=== PATIENT | male | born 1955 | race Caucasian/White ===

== ENCOUNTER → 2017-01-14 | Outpatient (CLI) | payer MEDICAID ==
[~2017-01-14] MED LIST: ACETAMINOPHEN &1 TA1 PO; ALBUTEROL2 PUFFS/17 IN; ALFUZOSIN HYDRO10 MG PO; ASPIRIN 325MG325 MG PO; ASPIRIN EC81 MG PO; ASPIRIN325 M1 PO; CLONAZEPAM 1MG T1 MG PO; CLONAZEPAM0.5 M1 PO; CYCLOBENZAPRINE10 MG PO; EXFORGE 10 MG-11 TAB PO; FLEXERIL10 M1 PO; FLEXERIL10 MG PO; FUROSEMIDE40 MG PO; GABAPENTIN300 M1 PO; HYDROCHLOROTH12.5 M1 PO; HYDROCODONE/ACE1 TA5 PO; LASIX40 MG PO; LEVOTHROID0.05 MG PO; LEVOTHYROXIN0.075 M3 PO; LODINE200 MG PO; LORTAB 500 MG-11 TAB PO; LOSARTAN POTASS1 TAB; LOSARTAN POTASS1 TAB PO; MAG-OX 400400 MG PO; MAGNESIUM CITRA1 BOT PO; METFORMIN 500M500 M1 PO; METFORMIN 500M500 MG PO; METHOCARBAMOL750 MG PO; MIRALAX PO255 GM/BOT PO; MOBIC15 MG PO; NEXIUM40 MG PO; NYSTATIN SUSPEN60 ML PO; OMEPRAZOLE20 MG PO; OMEPRAZOLE40 MG PO; PHENERGAN25 M3 PO; PREDNISONE 20MG20 MG PO; PRILOSEC OTC20 MG PO; PROVENTIL0.09 MG/A1 IH; RANITIDINE 150150 MG PO; SIMVASTATIN40 MG PO; STOOL SOFTENER240 MG PO; SYNTHROID 0.00.05 MG PO; TESSALON PERLE200 MG PO; ZETIA10 MG PO; ZITHROMAX Z PA250 MG PO; ZOCOR40 MG PO
[2017-01-14 16:38] LABS: AMPHETAMINES/METAMPHETAMINES NEGATIVE ng/mL (<1000)
[2017-01-24 18:35] LABS: Alprazolam Negative (Cutoff=100); Benzodiazepines Negative ng/mL (Cutoff=100); Clonazepam Negative (Cutoff=100); Flurazepam Negative (Cutoff=100); Lorazepam Negative (Cutoff=100); Midazolam Negative (Cutoff=100); Temazepam Negative (Cutoff=100); Triazolam Negative (Cutoff=100)
== END ==
LOC: LAB 15:44
PROVIDERS: Emergency Medicine
DX: Z79.899 Other long term (current) drug therapy (principal)
CPT/HCPCS: G0480

== ENCOUNTER → 2017-02-09 | Outpatient (CLI) | payer MEDICAID ==
[2017-02-09 21:06] LABS: AMPHETAMINES/METAMPHETAMINES NEGATIVE ng/mL (<1000)
[2017-02-21 14:36] LABS: Alprazolam Negative (Cutoff=100); Benzodiazepines Positive ng/mL (Cutoff=100); Clonazepam Positive (.); Clonazepam Confirm 210 ng/mL (Cutoff=100); Flurazepam Negative (Cutoff=100); Lorazepam Negative (Cutoff=100); Midazolam Negative (Cutoff=100); Temazepam Negative (Cutoff=100); Triazolam Negative (Cutoff=100)
== END ==
LOC: LAB 16:11
PROVIDERS: Emergency Medicine
DX: Z79.899 Other long term (current) drug therapy (principal)
CPT/HCPCS: G0480

== ENCOUNTER 2017-08-07 15:11 | Observation (INO) | payer MEDICAID ==
[~2017-08-07] VITALS: Ht 172.7 cm; Wt 103.0 kg
[~2017-08-07 15:11] MED LIST changes: +ASPIRIN 81MG TA81 MG PO; +PROTONIX40 MG/PACK PO; +SILDENAFIL CITR20 MG PO; +STOOL SOFTENER50 MG PO; +ZOFRAN4 MG PO
[2017-08-07 15:13] VITALS: BP 139/74
[2017-08-07 15:28] LABS: HEMOGLOBIN 12.9 g/dL (14.1-18.0); LYMPH # 2.1 K/mm3 (0.7-4.5); LYMPH % 42.1 % (10-50)
--- NOTE | 2017-08-07 15:35 | Emergency Room Report ---
History of Present Illness Time Seen by MD Wheat Presenting Problem in Triage Pt arrived:Walked Presenting Problem:LEFT SIDE CP THAT BEGAN LAST NIGHT, WITH LITTLE TO NO RELIEF FROM 3 DOSES OF NITRO SL SINCE LAST NIGHTS ONSET. 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 N Clinical Suspician of Infection? N Mental Status: 1 - Regular (Normal Baseline) Sepsis Risk:Low Sepsis Risk Have you (or family members/close friends) recently traveled outside the [place]? N If Yes, where/when: Have you had exposure to infectious disease within the past month? TB? Other? Specify: 62 years old white male with coronary artery disease status post RCA stenting on May 26, 2017. He has been having intermittent chest pain and LEFT upper chest radiating to the left neck, dull in character, occuring at rest and improved with nitroglycerin since yesterday. He rated the pain 8/10. He denies having soa or palpitation, NVD. Source patient, RN notes reviewed, family, old records, I reviewed his visit history and his cath report from May 17 Exam Limitations no limitations ALLERGIES Coded Allergies: Penicillins (08/07/17) Sulfa (Sulfonamide Antibiotics) (08/07/17) cephalexin (08/07/17) latex (08/07/17) Home Medications Active Scripts Polyethylene Glycol (Miralax Powder 255 Gm Bottle) 17 GM PO DAILY #1 POW Prov: 02/13/17 ONDANSETRON HCL (Zofran 4MG Tab) 4 MG PO Q6HP PRN NAUSEA AND VOMITING #30 TAB Prov: 04/09/17 Pantoprazole Sodium (Protonix) 40 MG PO DAILY #30 PKT Prov: 04/09/17 Reported Medications Metformin HCl (Metformin) 500 MG PO DAILY LOSARTAN/HYDROCHLOROTHIAZIDE (Losartan-Hctz 50-12.5 MG Tab) 1 TAB PO DAILY LEVOTHYROXINE SOD (Levothyroxine 0.075MG Tablet) 75 MCG PO DAILY Furosemide (Furosemide 40MG) 40 MG PO DAILY Methocarbamol (Methocarbamol 750MG) 750 MG PO BID Clonazepam (Clonazepam 1MG) 0.5 MG PO BID HYDROCODONE/ACETAMINOPHEN (Lortab 10-325 (generic) Tablet) 1 TAB PO QID ALFUZOSIN HCL (Alfuzosin HCl ER) 10 MG PO DAILY #30 Sildenafil Citrate (Sildenafil) 20 MG PO PRN PRN PROSTRATE ASPIRIN (Aspirin) 81 MG PO DAILY Omeprazole (Omeprazole 40MG) 40 MG PO DAILY Simvastatin (Simvastatin 40MG Tab) 40 MG PO QHS History Medical History General CAD? No Angina: Yes [place]: No Hypertension? Yes Hyperlipidemia? Yes CHF? No DVT? No PE? No COPD? Yes Asthma? No Anemia? No GERD? Yes Gastric ulcers? Yes GI Bleed? No Hernia? No Thyroid Problems? Yes Hypothyroidism? Yes CVA? Yes Seizures? No Diabetes? Yes Insulin Dependent: No Insulin Pump: No Home FSBS? Yes Renal Insuffiency? No End Stage Renal Disease? No UTI? Yes Stones? No BPH? No GB Disease: Yes Nephritic Syndrome? No Asplenia? No Hepatitis? No Sickle Cell Disease? No Arthritis? Yes Migraines? No Cataracts? No Glaucoma? No MRSA? Yes HIV? No TB? No Anxiety? No Depression? 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 Yes Additional hx: AAA, THORACIC AORTIC ANUERYSM Immunization Hx Ped.Immunizations UTD Yes DT/Tetanus 1-4 Years Ago Flu 2015-17FSN Pneumonia Never Had Surgical Hx Previous Surgery?Y R ARM TENDON PARTIAL BRAIN TUMOR REMOV 5 RECONSTRUCTIVE FACIAL APPY CYST REMOVED FROM NECK X2 HEART CATH-CLEAR Appendix BIOPSY ON BOTH EYES CANCER REMOVAL FROM LT EYE SURGERY Family History Family Hx Diabetes Yes CAD Yes Hypertension Yes Hyperlipidemia Yes Cancer Yes TB No Social History Smoking Hx Smoker: Never Smoker Tobacco: No Type N/A Are you/the child exposed to second-hand smoke: No Alcohol Alcohol: No Review of Systems All Other Systems Reviewed and Negative Constitutional no symptoms reported Eyes no symptoms reported ENT no symptoms reported. Respiratory no symptoms reported Cardiovascular see HPI, chest pain Gastrointestinal no symptoms reported Genitourinary no symptoms reported. Musculoskeletal no symptoms reported Skin no symptoms reported Psychiatric/Neurological no symptoms reported Physical Exam Vital Signs Vital Signs Date Time Temp Pulse Resp B/P Pulse O2 O2 Flow FiO2 Ox Delivery Rate 08/07 1558 72 18 106/60 92 08/07 1513 75 18 139/74 98 - WBC >12,000 or <4,000 or 10% bands? 2 or more SIRS Criteria Met? B/P:139/74 MAP:95 Creatinine >2.0? UA output<0.5ml/kg/hr for 2 hrs? Platelet count >100,000? Lactate >2.0mmol/1? INR >1.2 or PTT > than 60 sec? Evidence of Organ Dysfunction? Provider documented clinical suspician of infection? N Sepsis Criteria Count: 0 Sepsis Risk: Low Sepsis Risk General Appearance normal appearance, WD/WN Eye Exam - bilateral eye normal exam, bilateral eye PERRL, bilateral eye EOMI Ear, Nose, Throat hearing grossly normal, normal ENT inspection Neck normal inspection, non-tender, supple, full range of motion Respiratory Status Yes: trachea midline, chest symmetrical, non tender chest. No: respiratory distress. Lung Sounds bilateral: normal breath sounds, lungs clear. 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 No Results/Orders Laboratory Tests 08/07/17 1530: Opiates Screen POSITIVE H, Urine Methadone Screen NEGATIVE, Barbiturates NEGATIVE, Phencyclidine Screen NEGATIVE, Amphetamines Screen NEGATIVE, Benzodiazepines Screen NEGATIVE, Cocaine Screen NEGATIVE, Marijuana (THC) Screen NEGATIVE 08/07/17 1517: B-Natriuretic Peptide 22 08/07/17 1517: Sodium 142, Potassium 3.5, Chloride 103, Carbon Dioxide 32, BUN 16, Creatinine 1.2, Estimated Creat Clear 91, Estimated GFR (MDRD) 61, Glucose 125 H, Calcium 8.9, Total Bilirubin 0.4, AST 17, ALT 34, Alkaline Phosphatase 126 H, Creatine Kinase 205, CK-MB (CK-2) Rel Index 0.3, CK and CKMB Interp 0.6, Troponin I < 0.02, Total Protein 7.4, Albumin 4.0, Globulin 3.4 H, Albumin/Globulin Ratio 1.2, D-Dimer 502 *H, WBC 5.0, RBC 4.31 L, Hgb 12.9 L, Hct 37.3 L, MCV 86.4, RDW 13.4, Plt Count 199, MPV 7.3 L, Gran % 50.3, Gran # 2.5, Lymphocytes % 42.1 , Monocytes % 4.6, Eosinophils % 1.9, Basophils % 1.0, Lymphocytes # 2.1, Monocytes # 0.2, Eosinophils # 0.1, Basophils # 0.1, PUBS MCHC 34.7, MCH 30.0 Current Medication Orders Sig/Blayne Start time Last Medication Dose Route Stop Time Status Admin Nitroglycerin 0.5 IN ONCE ONE 08/07 1530 DC 08/07 TP 08/07 1531 1529 Sodium Chloride 10 ML PRN PRN 08/07 1530 AC IV 08/08 1519 Nitroglycerin 0 .STK-MED ONE 08/07 1523 DC .ROUTE Orders Procedure Date/time Status Decision to admit 08/07 1610 Active DRUG ABUSE SCREEN (10) 08/07 1540 Complete D-DIMER 08/07 1521 Complete BRAIN NATRIURETIC PEPTIDE 08/07 1521 Complete ELECTROCARDIOGRAM REQUEST 08/07 1519 Active CHEST(2 VIEWS-NOT PORTABLE) 08/07 1519 Active IV SALINE LOCK 08/07 1519 Active CBC WITH AUTO DIFF 08/07 1519 Complete CARDIAC ENZYMES 08/07 1519 Complete CHEM 12 PROFILE 08/07 1519 Complete 12 LEAD EKG-NAN (INITIAL) 08/07 UNK Active XRAY/CT/US XRAY/CT/US XRAY chest XR interpretation by reviewed by me Xray Results no infiltrates Departure Departure Time of Disposition 1534 Disposition Still a Patient Clinical Impression Primary Impression: Unstable angina Condition STABLE Referrals Ani DOSS,Beth Vincent Additional Instructions i dpsoke with the patient about his normal heart labs. I discussed with Dr Amin who agreed to admit. I notified Dr Cueva who will see him in the AM. The patient was admitted in a stable condition. Discharge Counseling Counseled pt/family regarding diagnosis, test results, R/B of controlled subst., medications/RX, home care, follow up needs ED Critical Care Critical Care No If Critical Care minutes are documented, the time involved in the performance of seperately reportable procedures was not counted toward critical care time documented. I directly delivered medical care to this critically ill and/or injured patient. Timely evaluation and treatment was necessary to address the significant organ system(s) dysfunction present in this patient. at 2289
[2017-08-07 15:56] LABS: BUN 16 mg/dL (7-18)
[2017-08-07 15:57] LABS: GFR (ESTIMATED) 61 ML/MIN (>60)
[2017-08-07 15:58] LABS: AMPHETAMINES/METAMPHETAMINES NEGATIVE ng/mL (<1000)
[2017-08-07 17:32] VITALS: BP 113/55
[2017-08-07 17:36] VITALS: BP 113/55
[2017-08-07] MEDS ORDERED: NITROGLYCERIN0.4 MG SL (17:56)
[2017-08-07 19:16] VITALS: BP 110/61
[2017-08-07 23:41] VITALS: BP 101/53
[2017-08-08 03:38] VITALS: BP 111/56
--- NOTE | 2017-08-08 06:52 | RADIOLOGY REPORT PS360 ---
CHEST(2 VIEWS-NOT PORTABLE) HISTORY: Chest pain CP ORDERING PHYSICIAN: Tha Law MD PATIENT AGE: 62 years COMPARISON: 04/09/2017 FINDINGS: The cardiomediastinal silhouette and pulmonary vascularity are within normal limits. The lungs are clear without infiltrates, suspicious nodules, or pleural effusions. No acute bony abnormalities. IMPRESSION: No change with no acute finding
--- NOTE | 2017-08-08 07:19 | PHARMACY CLINIC NOTE ---
Patient Demographics Patient Demographics Admission date: 08/07/17 Date: 08/08/17 Time: 0718 Allergies Coded Allergies: Penicillins (08/07/17) Sulfa (Sulfonamide Antibiotics) (08/07/17) cephalexin (08/07/17) latex (08/07/17) HEIGHT- FT: 5 IN: 8.00 K.995 VTE General Information Labs: Laboratory Tests 08/07 1517 Hematology Hgb (14.1 - 18.0 g/dL) 12.9 L Hct (42.0 - 52.0 %) 37.3 L Plt Count (142 - 424 K/mm3) 199 Disclaimer The following section includes nursing documentation that has been pulled in for pharmacy review. Patient's VTE score: 3 Patient's VTE Risk: LOW RISK Clinical trial participant? No VTE prophylaxis NQF [id number] VTE prophylaxis ordered? Yes Type of prophylaxis/treatment: SONG at 0776
[2017-08-08 08:08] VITALS: BP 114/67
--- NOTE | 2017-08-08 08:12 | CONSULT NOTE ---
Standard Demographics Patient Demo Date of Consultation: 08/08/17 Referring Provider: Jose Law MD Reason for Consultation: Chest pain PRIMARY DIAGNOSIS: UNSTABLE ANGINA, CAD Problem list Problem list: 1. Coronary disease A. History of abnormal stress test with inferior ischemia, 04/2017 B. Cardiac catheterization with subsequent drug-eluting stent placement to the RIGHT coronary artery, 04/2017. Aspirin and Effient therapy. 2. Previous brain surgery for benign brain mass, 1995, with resultant RIGHT facial droop A. Follows with neurology at . Recent MRI of the brain 07/2017, results pending 3. History of both ascending aortic aneurysm (4 cm) and abdominal aortic aneurysm (3.9 X 3.4 cm), with last CTA of the chest and abdomen and December of this year. 4. Diabetes mellitus 5. Hyperlipidemia 6. Remote tobacco use discontinued approximately 2002 History of present illness: History of present illness: 62-year-old white male with known coronary artery disease and recent coronary artery stenting in April of this year presented to the hospital emergency room for evaluation of chest pain. Patient relates 3 days of intermittent discomfort not associated with activity but resolved with rest or stretching out across the bed. He did take 3 nitroglycerin at home with minimal improvement in symptoms. He relates being more active recently working on remodeling his kitchen. He also relates eating more tomatoes recently even though he has a history of reflux symptoms. Most of his chest discomfort he describes as similar to his heartburn or reflux symptoms. The discomfort in his chest does not radiate and was not particular associated with shortness of breath. He denies any recent fever, chills, nausea, vomiting or diarrhea. He admits to being very anxious about the chest pain due to recent family member having a stroke. Patient was admitted for observation. Troponins have returned normal 3. Cardiology consulted for evaluation. During examination today the patient sat up to allow me to listen to his lungs he developed chest discomfort which upon returning to a supine position resolved. Past Medical History: General: Hypertension Yes CVA Yes Seizures No TB No COPD Yes Asthma No Diabetes Yes Insulin Dependent No Insulin Pump No Angina Yes MA No Hyperlipidemia Yes Urinary Yes Cancer Yes Rheumatic H.D. 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 Additional hx AAA, THORACIC AORTIC ANUERYSM, BLIND RIGHT EYE, BRAIN TUMOR Past Surgical HX: Previous Surgery?Y R ARM TENDON PARTIAL BRAIN TUMOR REMOV 5 RECONSTRUCTIVE FACIAL APPY CYST REMOVED FROM NECK X2 HEART CATH-CLEAR Appendix BIOPSY ON BOTH EYES CANCER REMOVAL FROM LT EYE SURGERY Allergies Coded Allergies: Penicillins (08/07/17) Sulfa (Sulfonamide Antibiotics) (08/07/17) cephalexin (08/07/17) latex (08/07/17) Home medications: Active Scripts Polyethylene Glycol (Miralax Powder 255 Gm Bottle) 17 GM PO DAILY #1 POW Prov: 02/13/17 ONDANSETRON HCL (Zofran 4MG Tab) 4 MG PO Q6HP PRN NAUSEA AND VOMITING #30 TAB Prov: 04/09/17 Pantoprazole Sodium (Protonix) 40 MG PO DAILY #30 PKT Prov: 04/09/17 Reported Medications Methocarbamol (Methocarbamol 750MG) 750 MG PO BIDP PRN MUSCLES NITROGLYCERIN (Nitrostat) 0.4 MG SL [id number] PRN CHEST PAIN Metformin HCl (Metformin) 500 MG PO DAILY LOSARTAN/HYDROCHLOROTHIAZIDE (Losartan-Hctz 50-12.5 MG Tab) 1 TAB PO DAILY LEVOTHYROXINE SOD (Levothyroxine 0.075MG Tablet) 75 MCG PO DAILY Furosemide (Furosemide 40MG) 40 MG PO DAILY Clonazepam (Clonazepam 1MG) 0.5 MG PO BID HYDROCODONE/ACETAMINOPHEN (Lortab 10-325 (generic) Tablet) 1 TAB PO QID ALFUZOSIN HCL (Alfuzosin HCl ER) 10 MG PO DAILY #30 Sildenafil Citrate (Sildenafil) 20 MG PO PRN PRN PROSTRATE ASPIRIN (Aspirin) 81 MG PO DAILY Omeprazole (Omeprazole 40MG) 40 MG PO DAILY Simvastatin (Simvastatin 40MG Tab) 40 MG PO QHS Current Medications: Current Medications Aspirin 81 MG DAILY PO Pantoprazole Sodium 40 MG BID PO Prasugrel 10 MG DAILY PO Nitroglycerin 0.5 IN Q6 TP (DC) Acetaminophen 500 MG Q6HP PRN PO Nicotine 21 MG DAILYP PRN TD Nitroglycerin 0.5 IN ONCE ONE TP (DC) Sodium Chloride 10 ML PRN PRN IV Nitroglycerin 0 .STK-MED ONE .ROUTE (DC) Immunization HX Ped.Immunizations UTD Yes DT/Tetanus 1-4 Years Flu 2015-FSN Pneumonia Refuses TB Test in last year No Family history Family HX Family Hx Insignificant No Diabetes Yes CAD Yes Hypertension Yes Hyperlipidemia Yes Cancer Yes TB No Social Hx: Smoking HX Tobacco No Type N/A Are you/the child exposed to second-hand smoke: No Alcohol Alcohol: No Hx of Drug Use Drug Use? No Review of systems: Constitutional No: no symptoms reported. Respiratory No: no symptoms reported. Cardiovascular see HPI, chest pain Gastrointestinal/Abdominal other Genitourinary No: no symptoms reported. Musculoskeletal neck pain. Neurological Yes: headache. Exam: Admission Vital Signs: 1ST Vital Signs Result Date Time Pulse Ox 98 08/07 1513 B/P 139/74 08/07 151 Pulse 75 08/07 1513 Resp 18 08/07 1513 O2 Delivery ROOM AIR 08/07 173 Temp 97.8 08/07 1732 Last Vital Signs: Vital Signs Result Date Time Pulse Ox 93 08/08 0338 B/P 111/56 08/08 338 O2 Delivery ROOM AIR 08/08 338 Temp 98.6 08/08 033 Pulse 62 08/08 033 Resp 08/08 0338 Exam General appearance: alert, awake, no acute distress Neck: no carotid bruit, no JVD Cardiovascular: regular rate & rhythm, no murmur Respiratory: clear to auscultation, good air movement ABD: soft, no tenderness Extremities: moves all, no peripheral edema Neuro: alert, intact, oriented Laboratory data: Laboratory Tests 08/08/17 0355: Troponin I < 0.02 08/07/17 2200: Troponin I < 0.02 08/07/17 1530: Opiates Screen POSITIVE H, Urine Methadone Screen NEGATIVE, Barbiturates NEGATIVE, Phencyclidine Screen NEGATIVE, Amphetamines Screen NEGATIVE, Benzodiazepines Screen NEGATIVE, Cocaine Screen NEGATIVE, Marijuana (THC) Screen NEGATIVE 08/07/17 1517: B-Natriuretic Peptide 22 08/07/17 1517: Sodium 142, Potassium 3.5, Chloride 103, Carbon Dioxide 32, BUN 16, Creatinine 1.2, Estimated Creat Clear 91, Estimated GFR (MDRD) 61, Glucose 125 H, Calcium 8.9, Total Bilirubin 0.4, AST 17, ALT 34, Alkaline Phosphatase 126 H, Creatine Kinase 205, CK-MB (CK-2) Rel Index 0.3, CK and CKMB Interp 0.6, Troponin I < 0.02, Total Protein 7.4, Albumin 4.0, Globulin 3.4 H, Albumin/Globulin Ratio 1.2, D-Dimer 502 *H, WBC 5.0, RBC 4.31 L, Hgb 12.9 L, Hct 37.3 L, MCV 86.4, RDW 13.4, Plt Count 199, MPV 7.3 L, Gran % 50.3, Gran # 2.5, Lymphocytes % 42.1 , Monocytes % 4.6, Eosinophils % 1.9, Basophils % 1.0, Lymphocytes # 2.1, Monocytes # 0.2, Eosinophils # 0.1, Basophils # 0.1, PUBS MCHC 34.7, MCH 30.0 Plan: Assessment: 1. Chest pain with atypical features. Patient has known coronary disease with recent coronary artery stenting after abnormal stress test picked up ischemia in the inferior wall. Troponins normal 3. Electrocardiogram shows sinus rhythm, LEFT axis deviation, minimal voltage criteria for left ventricular hypertrophy. No acute ST segment changes. 2. Coronary disease, continue dual antiplatelet therapy her recent coronary artery stenting. 3. Diabetes mellitus 4. Hyperlipidemia 5. Descending aortic aneurysm, 4.0 cm, last scan 12/2016 6. Abdominal aortic aneurysm, last scan 12/2016, 3.9 X 3.4 cm 7. History of hypertension 8. Previous brain surgery for benign tumor with resultant RIGHT facial droop Recommendations: 1. Lexiscan Myoview today. If no ischemia then could be discharged home later today if CTA of chest and abdomen also unchanged, on previous medications with increase in pantoprazole to twice a day for possible exacerbation of reflux disease. 2. Obtain CTA of the chest and abdomen to follow-up on his descending aortic aneurysm and abdominal aortic aneurysm as possible etiology for discomfort. at 0822
[2017-08-08 09:13] VITALS: BP 114/67
[2017-08-08 11:24] VITALS: BP 126/67
--- NOTE | 2017-08-08 11:58 | HISTORY AND PHYSICAL REPORT ---
Demographics: Admit date: 08/07/17 Chief complaint: chest pain PRIMARY DIAGNOSIS: UNSTABLE ANGINA, CAD Allergies: Coded Allergies: Penicillins (08/07/17) Sulfa (Sulfonamide Antibiotics) (08/07/17) cephalexin (08/07/17) latex (08/07/17) History of present illness: History of present illness: 62-year-old white male with known coronary artery disease and recent coronary artery stenting in April of this year presented to the hospital emergency room for evaluation of chest pain. Patient relates 3 days of intermittent discomfort not associated with activity but resolved with rest or stretching out across the bed. He did take 3 nitroglycerin at home with minimal improvement in symptoms. He relates being more active recently working on remodeling his kitchen. He also relates eating more tomatoes recently even though he has a history of reflux symptoms. Most of his chest discomfort he describes as similar to his heartburn or reflux symptoms. The discomfort in his chest does not radiate and was not particular associated with shortness of breath. He denies any recent fever, chills, nausea, vomiting or diarrhea. He admits to being very anxious about the chest pain due to recent family member having a stroke. Patient was admitted for observation. Troponins have returned normal 3. Cardiology consulted for evaluation. During examination today the patient sat up to allow me to listen to his lungs he developed chest discomfort which upon returning to a supine position resolved. as above - pt with known cad with inc episodes of chest pain with ntg use and was seen in the ed and admitted for card eval and serial enz Past medical history: Family HX Family Hx Insignificant Yes Immunization HX Ped.Immunizations UTD Yes DT/Tetanus 1-4 Years Ago Flu 2015-FSN Pneumonia Refuses TB Test in last year No General CAD? No Angina: Yes [place]: No Hypertension? Yes Hyperlipidemia? Yes CHF? No DVT? No PE? No COPD? Yes Asthma? No Anemia? No GERD? Yes Gastric ulcers? Yes GI Bleed? No Hernia? No Thyroid Problems? Yes Hypothyroidism? Yes CVA? Yes Seizures? No Diabetes? Yes Insulin Dependent: No Insulin Pump: No Home FSBS? Yes Renal Insuffiency? No UTI? Yes Stones? No BPH? No GB Disease: Yes Nephritic Syndrome? No Asplenia? No Hepatitis? No Sickle Cell Disease? No Arthritis? Yes Migraines? No Cataracts? No Glaucoma? No MRSA? Yes HIV? No TB? No Anxiety? No Depression? 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 Yes Additional hx: AAA, THORACIC AORTIC ANUERYSM, BLIND RIGHT EYE, BRAIN TUMOR Past Surgical HX Previous Surgery?Y R ARM TENDON PARTIAL BRAIN TUMOR REMOV 5 RECONSTRUCTIVE FACIAL APPY CYST REMOVED FROM NECK X2 HEART CATH-CLEAR Appendix BIOPSY ON BOTH EYES CANCER REMOVAL FROM LT EYE SURGERY Current home meds: Active Scripts Polyethylene Glycol (Miralax Powder 255 Gm Bottle) 17 GM PO DAILY #1 POW Prov: 02/13/17 ONDANSETRON HCL (Zofran 4MG Tab) 4 MG PO Q6HP PRN NAUSEA AND VOMITING #30 TAB Prov: 04/09/17 Pantoprazole Sodium (Protonix) 40 MG PO DAILY #30 PKT Prov: 04/09/17 Reported Medications Methocarbamol (Methocarbamol 750MG) 750 MG PO BIDP PRN MUSCLES NITROGLYCERIN (Nitrostat) 0.4 MG SL [id number] PRN CHEST PAIN Metformin HCl (Metformin) 500 MG PO DAILY LOSARTAN/HYDROCHLOROTHIAZIDE (Losartan-Hctz 50-12.5 MG Tab) 1 TAB PO DAILY LEVOTHYROXINE SOD (Levothyroxine 0.075MG Tablet) 75 MCG PO DAILY Furosemide (Furosemide 40MG) 40 MG PO DAILY Clonazepam (Clonazepam 1MG) 0.5 MG PO BID HYDROCODONE/ACETAMINOPHEN (Lortab 10-325 (generic) Tablet) 1 TAB PO QID ALFUZOSIN HCL (Alfuzosin HCl ER) 10 MG PO DAILY #30 Sildenafil Citrate (Sildenafil) 20 MG PO PRN PRN PROSTATE ASPIRIN (Aspirin) 81 MG PO DAILY Omeprazole (Omeprazole 40MG) 40 MG PO DAILY Simvastatin (Simvastatin 40MG Tab) 40 MG PO QHS Social Hx: Smoking HX Tobacco No Type N/A Are you/the child exposed to second-hand smoke: No Alcohol Alcohol: No Hx of Drug Use Drug Use? No Patien't marital status is Patient's support system is good Review of systems: Constitutional No: fever. Eyes No: drainage. Ears, Nose, Mouth, Throat No ear discharge, No epistaxis, No throat pain Respiratory No: cough, shortness of breath, wheezing. Cardiovascular see HPI, chest pain, No palpitations, No syncope Gastrointestinal/Abdominal see HPI, No abdominal pain, nausea, No poor appetite, No poor fluid intake, No vomiting Genitourinary No: dysuria, frequency, hesitancy, hematuria. Musculoskeletal No: back pain, joint pain, joint swelling, neck pain. Skin No: rash. Neurological No: headache, seizure disorder. Psychiatric No: anxious, depressed. Exam: Lab data for last 24 hours: Laboratory Tests 08/08/17 1015: Troponin I < 0.02 08/08/17 0355: Troponin I < 0.02 08/07/17 2200: Troponin I < 0.02 08/07/17 1530: Opiates Screen POSITIVE H, Urine Methadone Screen NEGATIVE, Barbiturates NEGATIVE, Phencyclidine Screen NEGATIVE, Amphetamines Screen NEGATIVE, Benzodiazepines Screen NEGATIVE, Cocaine Screen NEGATIVE, Marijuana (THC) Screen NEGATIVE 08/07/17 1517: B-Natriuretic Peptide 22 08/07/17 1517: Sodium 142, Potassium 3.5, Chloride 103, Carbon Dioxide 32, BUN 16, Creatinine 1.2, Estimated Creat Clear 91, Estimated GFR (MDRD) 61, Glucose 125 H, Calcium 8.9, Total Bilirubin 0.4, AST 17, ALT 34, Alkaline Phosphatase 126 H, Creatine Kinase 205, CK-MB (CK-2) Rel Index 0.3, CK and CKMB Interp 0.6, Troponin I < 0.02, Total Protein 7.4, Albumin 4.0, Globulin 3.4 H, Albumin/Globulin Ratio 1.2, D-Dimer 502 *H, WBC 5.0, RBC 4.31 L, Hgb 12.9 L, Hct 37.3 L, MCV 86.4, RDW 13.4, Plt Count 199, MPV 7.3 L, Gran % 50.3, Gran # 2.5, Lymphocytes % 42.1 , Monocytes % 4.6, Eosinophils % 1.9, Basophils % 1.0, Lymphocytes # 2.1, Monocytes # 0.2, Eosinophils # 0.1, Basophils # 0.1, PUBS MCHC 34.7, MCH 30.0 Admission vital signs: 1ST Vital Signs Result Date Time Pulse Ox 98 08/07 1513 B/P 139/74 08/07 1513 Pulse 75 08/07 1513 Resp 18 09/10 1513 O2 Delivery ROOM AIR 08/072 Temp 97.8 08/07 1732 Exam General appearance: alert Eyes: PERRLA ENT: dry mucous membranes Neck: no JVD Cardiovascular: regular rate & rhythm, murmur Respiratory: clear to auscultation ABD: soft Genitourinary: normal voiding & quantity Extremities: moves all Musculoskeletal: equal muscle strength Skin: dry 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 Abdominal aortic aneurysm 2. Chronic back pain 3. 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 Unstable angina Plan: will await card eval at 1158
[2017-08-08 15:31] VITALS: BP 134/86
--- NOTE | 2017-08-08 15:48 | RADIOLOGY REPORT PS360 ---
[facility] CLINICAL INDICATION: CAD, recent coronary stent, chest pain ORDERING PHYSICIAN: Tha Law MD PATIENT AGE: 62 years COMPARISON: 05/13/2017 DOSE: 10.37 mCi technetium Myoview intravenously at rest followed by 31.7 mCi technetium Myoviewthe intravenous ministration of 0.4 mg of Lexiscan. FINDINGS: Ejection fraction is calculated to be 55%. SPECT and polar map images reviewed. There is moderate amount of gastric activity noted. Fixed decreased activity is present involving the inferior wall extending into the apex. No reversible changes are evident. IMPRESSION: 1. Ejection fraction at lower limits of normal at 55% similar to the previous exam.. 2. Fixed defect involving the inferior wall extending into the apex consistent area of infarction. 3. No reversible defects apparent.
--- NOTE | 2017-08-08 16:18 | DISCHARGE SUMMARY STANDARD ---
Demographics Admit date: 08/07/17 Discharge date: 08/08/17 History of present illness History of present illness 62-year-old white male with known coronary artery disease and recent coronary artery stenting in April of this year presented to the hospital emergency room for evaluation of chest pain. Patient relates 3 days of intermittent discomfort not associated with activity but resolved with rest or stretching out across the bed. He did take 3 nitroglycerin at home with minimal improvement in symptoms. He relates being more active recently working on remodeling his kitchen. He also relates eating more tomatoes recently even though he has a history of reflux symptoms. Most of his chest discomfort he describes as similar to his heartburn or reflux symptoms. The discomfort in his chest does not radiate and was not particular associated with shortness of breath. He denies any recent fever, chills, nausea, vomiting or diarrhea. He admits to being very anxious about the chest pain due to recent family member having a stroke. Patient was admitted for observation. Troponins have returned normal 3. Cardiology consulted for evaluation. During examination today the patient sat up to allow me to listen to his lungs he developed chest discomfort which upon returning to a supine position resolved. as above - pt with known cad with inc episodes of chest pain with ntg use and was seen in the ed and admitted for card eval and serial enz Hospital Course Hospital Course: pt did well with dec pain and nl serial enz and was seen by card and stress test ok- GS: Ejection fraction is calculated to be 55%. SPECT and polar map images reviewed. There is moderate amount of gastric activity noted. Fixed decreased activity is present involving the inferior wall extending into the apex. No reversible changes are evident. IMPRESSION: 1. Ejection fraction at lower limits of normal at 55% similar to the previous exam.. 2. Fixed defect involving the inferior wall extending into the apex consistent area of infarction. 3. No reversible defects apparent. Discharge diagnoses Problem List 1. Abdominal aortic aneurysm 2. Chronic back pain 3. 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 Unstable angina Medications Medications: Discharge meds are as noted. Follow up Follow up in office in: 2 WEEKS with: Barrington Cueva MD Comment: will follow in office and with card at 1547
--- NOTE | 2017-08-08 16:56 | RADIOLOGY REPORT PS360 ---
CTA-ABD CLINICAL INDICATION: Abdominal aortic aneurysm CAD RECENT CORONARY STENT,CP,KNOWN ABD ANEURYSM ORDERING PHYSICIAN: Tha Law MD PATIENT AGE: 62 years TECHNIQUE: Axial images obtained following the bolus administration 100 mL of Isovue-370 performed in conjunction with chest CT angiogram COMPARISON: 04/09/2017 FINDINGS: There is a fusiform infrarenal abdominal aortic aneurysm beginning 4.6 cm below the level of the left renal artery measuring up to 3.9 cm AP and 3.4 cm transverse with a mild amount of mural thrombus inferiorly. The aneurysm ends at the level of the bifurcation measuring 2.6 x 2.2 cm at the bifurcation. Proximal common iliacs are slightly prominent measuring up to 1.6 cm on the right and left. The renal arteries and unremarkable appearance as does the superior mesenteric and iliac arteries. The KARYN is patent. Nonvascular findings: The liver, spleen, adrenal glands, and pancreas have an unremarkable appearance. No renal mass or hydronephrosis. Bilateral renal cortical cysts are present measuring up to 1.6 cm on the right. There has been prior appendectomy IMPRESSION: Overall no change in the 3.9 cm fusiform infrarenal abdominal aortic aneurysm with mild dilatation of the proximal common iliacs.
[2017-08-08 17:12] VITALS: BP 134/86
--- NOTE | 2017-08-08 18:22 | RADIOLOGY REPORT PS360 ---
CTA-CHEST HISTORY: Thoracic aortic aneurysm CAD RECENT CORONARY STENT,CP,KNOWN ABD ANEURYSM ORDERING PHYSICIAN: Tha Law MD PATIENT AGE: 62 years TECHNIQUE: Helical acquisition obtained following the bolus administration of 100 mL of Isovue 370 followed by a saline bolus. Axial, sagittal, and coronal reformatted images are generated and reviewed. COMPARISON: 01/03/2017 FINDINGS: The aortic root is upper normal at 4 cm. Coronary artery calcifications are present. There is no evidence of aortic dissection. Atheromatous changes involve the aortic arch. No obvious central pulmonary embolus evident. Study is tailored for the aorta with less than optimal opacification of the pulmonary arteries. There are centrilobular emphysematous changes with evidence of old granulomatous disease. No suspicious pulmonary nodules apparent. No consolidation or effusion. No mediastinal or hilar mass or adenopathy. There are mild degenerative changes in the thoracic spine. IMPRESSION: 1. No change mild prominence of the ascending aorta at 4 cm 2. Coronary artery calcification consistent with coronary artery disease. 3. Mild centrilobular emphysematous changes.
--- OUTSIDE RECORDS SUMMARY | 2017-09-05 03:00 | External Medical Summary Rpt ---
Author Author , LUIS EDUARDO HOFF Address Unknown Phone [email or web address] Care Team Providers Care Electric Golf Cart Repairer Name Role Phone ABLECARE, ABLECARE Unavailable Unavailable LEIVA, LEIVA Unavailable Unavailable LEIVA ART, LEIVA Unavailable Unavailable ART LEIVA ART, LEIVA Unavailable Unavailable ADI FERNANDO JR, Unavailable Unavailable ADI SWANSON JR, MD, PSC, Unavailable Unavailable BOYD DEAN MD, PSC LAVINIA KATE Unavailable Unavailable LAVINIA TOWNSEND, Unavailable Unavailable ,PSC, LAVINIA TOWNSEND MD,PSC WARE BRO WARE Unavailable Unavailable BRO WARE BRO, WARE Unavailable Unavailable BRO BEINEKE, BEINEKE Unavailable Unavailable BEINEKE DAREN, BEINEKE Unavailable Unavailable DAREN BESSON, BESSON Unavailable Unavailable BESSON CAMILLA, BESSON Unavailable Unavailable CAMILLA BESSON CAMILLA, BESSON Unavailable Unavailable CAMILLA BESSON, AYLEEN A, Unavailable Unavailable BESSON, AYLEEN A DELAROSA, DELAROSA Unavailable Unavailable DELAROSA ALL, DELAROSA ALL Unavailable Unavailable DANIEL, ALEXIS, Unavailable Unavailable DANIEL, ALEXIS [facility] Unavailable Unavailable SERVICE, [facility] Unavailable Unavailable SERVICE, [facility] Unavailable Unavailable SERVICE, [facility] BANDAR TEREZA, BANDAR Unavailable Unavailable TEREZA BUX ANJ, BUX ANJ Unavailable Unavailable C CELESTINO ADAME MD Unavailable Unavailable PSC, Marbella ADAME MD PSC [facility] Unavailable Unavailable CONSULTANTS O, [facility] LENA SHA, LENA Unavailable Unavailable SHA LENA, AWILDA, Unavailable Unavailable LENA, AWILDA [facility] Unavailable Unavailable [facility], [facility] Unavailable Unavailable [facility], Unavailable Unavailable [facility] COOK DONNIE, COOK DONNIE Unavailable Unavailable BEN III, RADHA L, Unavailable Unavailable BEN III, RADHA L ODALYS LB, ODALYS LB Unavailable Unavailable ODALYS LB, ODALYS LB Unavailable Unavailable ZULLY, ZULLY Unavailable Unavailable ZULLY BUBBA, Unavailable Unavailable ZULLY BUBBA ZULLY BUBBA, Unavailable Unavailable ZULLY BUBBA ZULLY, OLESYA, Unavailable Unavailable ZULLY, OLESYA [facility], Unavailable Unavailable [facility] [place] Un[facility]available [facility], [facility] DUFF LB, DUFF LB Unavailable Unavailable [facility] Unavailable [place]available [place], [facility] [place] [facility] Un[facility] [place] EDGE DONNIE, EDGE DONNIE Unavailable Unavailable EDGE DONNIE, EDGE DONNIE Unavailable Unavailable FALLUJI VENITA, FALLUJI Unavailable Unavailable VENITA FEEBACK, FEEBACK Unavailable Unavailable LAUREN SAVITA, Unavailable Unavailable LAUREN SAVITA FRYMAN EUG, FRYMAN Unavailable Unavailable EUG CHAGO, CHAGO Unavailable Unavailable CHAGO CHARLEY, CHAGO Unavailable Unavailable CHARLEY CHAGO CHARLEY, CHAGO Unavailable Unavailable CHARLEY BARAHONA MICHELLE, BARAHONA MICHELLE Unavailable Unavailable [facility] Unavailable Unavailable INC, [facility] Unavailable Unavailable [facility], [facility] Unavailable Un[facility] P, [facility] ELIAS, NETTIE, ELIAS, Unavailable Unavailable NETTIE MIDDLETON ALEM, MIDDLETON ALEM Unavailable Unavailable MIDDLETON ALEM, MIDDLETON ALEM Unavailable Unavailable MIDDLETON MICHAEL A, Unavailable Unavailable MIDDLETON, MICHAEL A [facility], Unavailable Unavailable [facility] WHITESIDE NISREEN, WHITESIDE NISREEN Unavailable Unavailable KATYA MITCHELL, KATYA Unavailable Unavailable MITCHELL JAMA NAN, JAMA Unavailable Unavailable NAN JAMA NAN, JAMA Unavailable Unavailable NAN [facility] Unavailable Unavailable MEDICAL G, [facility]available Unavailable DEPARTMENT, [facility] Un[facility], [facility] DALLAS CRI, [facility] Unavailable Unavailable ALBA [facility] E, Unavailable Unavailable [facility] Unavailable Un[facility], [facility] Un[facility] Un[facility] FREDY DEAN MD, FREDY Unavailable Unavailable JERMAINE DOSS MAJORS G, MAJORS G Unavailable Unavailable VITA HAM, VITA HAM Unavailable Unavailable VITA HAM, VITA HAM Unavailable Unavailable [facility] Unavailable Unavailable SERVICES, [facility] ROMERO JAM, Unavailable Unavailable ROMERO JAM ROMERO JAM, Unavailable Unavailable ROMERO JAM MCKEMIE JR AREN, Unavailable Unavailable MCKEMIE JR AREN MCKEMIE JR AREN, Unavailable Unavailable MCKEMIE JR AREN MCKEMIE JR, MCKAYLA Unavailable Unavailable F, NATHALY JR, MCKAYLA F MINEER EDELMIRA, MINEER Unavailable Unavailable EDELMIRA LUDY, CHAD P, Unavailable Unavailable LUDY, CHAD P MOHAMMADZADEH, Unavailable Unavailable MOHAMMADZADEH [facility]OHAMM[facility]ADEH HAM, Unavailable Unavailable MOHAMMADZADEH HAM [facility] Unavailable Unavailable PSC, [facility] PSC O'JENNIFER LISA, O'JENNIFER Unavailable Unavailable LISBETH GILMORE, Unavailable Unavailable LISBETH ZEE [facility]available [facility], [facility] Unavailable Unavailable LAB, [facility] THO, MONROE Unavailable Unavailable [facility]O [facility], Unavailable Unavailable [facility] CB, CB Unavailable Unavailable CB TOD, CB TOD Unavailable Unavailable JAIDEN CAMILLA, JAIDEN CAMILLA Unavailable Unavailable JAIDEN CAMILLA, JAIDEN CAMILLA Unavailable Unavailable TAMIR VENEGAS, Unavailable Unavailable TAMIR VENEGAS, Unavailable Unavailable MCCORMACK BERNARDO SADEK MOH, SADEK MOH Unavailable Unavailable SARAFF, AMADOR Y, Unavailable Unavailable SARAFF, AMADOR Y SCHEURICH, MARCOS, Unavailable Unavailable SCHEURICH, MARCOS SCIFRES ANG, SCIFRES Unavailable Unavailable ANG SCIFRES ANG, SCIFRES Unavailable Unavailable ANG SETTEMBRE, SETTEMBRE Unavailable Unavailable SHASHY JAROD, SHASHY Unavailable Unavailable JAROD CHAYO, CHAYO Unavailable Unavailable CHAYO MAT, Unavailable Unavailable CHAYO MAT SMALL, LISBETH T, SMALL, Unavailable Unavailable LISBETH T SOKAN BAB, SOKAN BAB Unavailable Unavailable SOKAN, MADISON O, Unavailable Unavailable SOKAN, MADISON O SOTINGEANU, Unavailable Unavailable SOTINGEANU SOTINGEANU DAREN, Unavailable Unavailable SOTINGEANU DAREN CHUY SALCIDO, CHUY Unavailable Unavailable LALO AG, Unavailable Unavailable LALO VERA POPEYE PHI, POPEYE PHI Unavailable Unavailable POPEYE LAKSHMI A, Unavailable Unavailable LAKSHMI NYE A MITCH MAT, MITCH MAT Unavailable Unavailable [facility], Unavailable Unavailable [facility] MORRISON W, MORRISON W Unavailable Unavailable MORRIOSN JR AREN, MORRISON Unavailable Unavailable JR AREN MORRISON, W, MORRISON, W Unavailable Unavailable WEHRMAN III AREN, Unavailable Unavailable WEHRMAN III AREN WEHRMAN III AREN, Unavailable Unavailable WEHRMAN III AREN WEHRMAN III, MCKAYLA, Unavailable Unavailable WEHRMAN III, MCKAYLA WEST DONNIE, WEST DONNIE Unavailable Unavailable WESTLISBETH, WEST, Unavailable Unavailable VENITA EPPERSON Unavailable Unavailable KRISTIAN TOWNSEND Unavailable Unavailable Brigida TOWNSEND, KRISTIAN, Unavailable Unavailable A C Purpose Continuity of Care Document - 12-04-2007 through 2016 Problems Code Diagnosis DOS Provider Status 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 [id number] SPONDYLOSIS 07-05-2017 [place] W/O KRISTIAN MYELOPATH/R ,PSC ADICULOPATH Y CERV RGN [id number] SPONDYLOSIS 07-05-2017 [place]IA W/Milton TOWNSEND MYELOPATH/R ,[facility] ADICULOPATH Y LUMB RGN Q55103 OUTSIDE CUTTER HAND 07-05-2017 LAV[place]IA CURRENT USE WHIT TOWNSEND OPIATE ,[facility] ANALGESIC Q68581 OTHER LONG 06-15-2017 [facility] TERM [facility] CURRENT INC DRUG THERAPY E119 TYPE 2 06-02-2017 [facility] DIABETES PHYSICIANS MELLITUS GROUP WITHOUT COMPLICATIO NS E785 HYPERLIPIDE 06-02-2017 [facility] LESTER PHYSICIANS UNSPECIFIED GROUP I119 HYPERTENSIV 06-02-2017 [facility] E HEART PHYSICIANS DISEASE GROUP WITHOUT HEART FAILURE 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 I712 THORACIC 06-02-2017 [facility] AORTIC PHYSICIANS ANEURYSM GROUP WITHOUT RUPTURE I714 ABDOMINAL 06-02-2017 [facility] AORTIC PHYSICIANS ANEURYSM GROUP WITHOUT RUPTURE R079 CHEST PAIN 06-02-2017 [facility] UNSPECIFIED PHYSICIANS GROUP R9439 ABNORMAL 05-26-2017 [facility] RESULT OTH PHYSICIANS CARDIOVASCU GROUP LR FUNCTION STUDY H75884 ENCOUNTER 05-26-2017 [facility] FOR PHYSICIANS PREPROCEDUR GROUP AL CARIOVASCUL AR EXAM I10 ESSENTIAL 05-13-2017 [facility] PRIMARY PHYSICIANS HYPERTENSIO GROUP N R9431 ABNORMAL 05-13-2017 [facility] ELECTROCARD PHYSICIANS IOGRAM GROUP S89970 ENCOUNTER 05-13-2017 [facility] FOR OTHER MEM [facility] PREPROCEDUR INC AL EXAMINATION R1011 RIGHT UPPER 05-03-2017 [facility] R935 ABN FIND DX 05-03-2017 [facility] IMAG OTH [facility] ABD REGIONS INC RETROPERITO NEUM D369 BENIGN 04-19-2017 [facility] NEOPLASM PHYSICIANS UNSPECIFIED GROUP SITE O42430 PERSONAL 04-19-2017 [facility] HISTORY OF PHYSICIANS COLONIC GROUP POLYPS K210 GASTRO-ESOP 04-09-2017 [facility] JENSEN PHYSICIANS, REFLUX PLLC DISEASE W/ ESOPHAGITIS K828 OTHER 04-09-2017 [facility] SPECIFIED PHYSICIANS, DISEASES OF PLLC GALLBLADDER K829 DISEASE OF 04-09-2017 [facility]ADDER [facility] UNSPECIFIED R109 UNSPECIFIED 04-09-2017 [facility] ABDOMINAL [facility]ICAL PAIN IMAGING ASS K81682 PERSONAL 04-09-2017 [facility] HISTORY OF [facility] P DEPENDENCE N411 CHRONIC 04-05-2017 [facility] PROSTATITIS [facility] P N529 MALE 04-05-2017 [facility] UNSPECIFIED K219 GASTRO-ESOP 04-02-2017 [facility] H REFLUX [facility] DISEASE INC WITHOUT ESOPHAGITIS M5116 INTERVERTEB 04-02-2017 [facility] GLORIA PHYSICIANS, D/O PLLC W/RADICULOP ATHY LUMB RGN R1031 RIGHT LOWER 04-02-2017 [facility] M5382 OTHER 03-23-2017 [place] SPECIFIED [facility] DORSOPATHIE C CENTE S CERVICAL REGION M5386 OTHER 03-23-2017 [place] SPECIFIED CHIROPRACTI DORSOPATHIE C CENTE S LUMBAR REGION P60024 OTHER 03-04-2017 JUANI LU MD,PSC MID-CERV REG UNS LEVEL K5900 CONSTIPATIO 02-13-2017 [facility] N MEDICAL UNSPECIFIED IMAGING ASS R112 NAUSEA WITH 02-13-2017 [facility] VOMITING MEDICAL UNSPECIFIED IMAGING ASS J449 CHRONIC 01-13-2017 [facility] PULMONARY [facility] P DISEASE UNS R0600 DYSPNEA 01-13-2017 [facility] UNSPECIFIED [facility]ICAL IMAGING ASS E039 HYPOTHYROID 11-11-2016 [facility] IS [facility] UNSPECIFIED INC N401 BENIGN 10-26-2016 [facility] PROSTATIC [facility] P LW URINARY TRACT SX R350 FREQUENCY 10-26-2016 [facility] P J65399 UNSPECIFIED 10-11-2016 [facility] ALEM BLEPHARITIS LEFT LOWER EYELID J9811 ATELECTASIS 09-01-2016 [facility] R1013 EPIGASTRIC 09-01-2016 [facility] PAIN [facility] P R7989 OTHER SPEC 09-01-2016 [facility] ABNORMAL MEDICAL FINDINGS IMAGING ASS BLOOD CHEMISTRY M791 MYALGIA 08-25-2016 [place] TOWNSEND MD,PSC M5090 CERVICAL 08-16-2016 [facility] DISC [facility] DISORDER INC UNS UNS CERVICAL REGION D92520 PAIN IN 08-10-2016 [facility] RIGHT MEDICAL SHOULDER IMAGING ASS M5032 OTH CERV 08-10-2016 [facility] DISC MEDICAL DEGENERATIO IMAGING ASS N MID-CERVICA L REGION M542 CERVICALGIA 08-10-2016 [facility] R51 HEADACHE 08-10-2016 [facility] V9585JH CONTUSION 08-10-2016 [facility] UNS PART PHYSICIANS, HEAD PLLC INITIAL ENCOUNTER M6636DQ UNSPECIFIED 08-10-2016 [facility] INJURY OF MEDICAL HEAD IMAGING ASS INITIAL ENCOUNTER Y684RGU STRAIN 08-10-2016 [facility] MUSCLE FASC PHYSICIANS, & TENDON PLLC NECK LEVL INIT ENC I684QDG UNSPECIFIED 08-10-2016 [facility] INJURY OF MEDICAL NECK IMAGING ASS INITIAL ENCOUNTER A83221O UNSPECIFIED 08-10-2016 [facility] SPRAIN RT PHYSICIANS, SHOULDER PLLC JOINT INITIAL ENC V0896KO UNS INJURY 08-10-2016 [facility] RT SHOULDER MEDICAL UPPER ARM IMAGING ASS INITIAL ENCNTR D126 BENIGN 07-29-2016 [facility], NEOPLASM OF LLC COLON UNSPECIFIED K635 POLYP OF 07-29-2016 [facility] COLON PHYSICIANS GROUP Z09 ENC F/U 07-29-2016 COMMUNITY EXAM AFTR ANESTH OF CMPL TX OTH THE BLUE THAN MALIG NEOPLSM Z1211 ENCOUNTER 07-29-2016 [facility] SCREENING PHYSICIANS MALIGNANT GROUP NEOPLASM OF COLON M4642 DISCITIS 05-14-2016 [facility] UNSPECIFIED PHYSICIANS CERVICAL GROUP REGION G8929 OTHER 04-23-2016 [facility] CHRONIC PHYSICIANS PAIN GROUP J40 BRONCHITIS 04-07-2016 [facility] NOT PHYSICIANS SPECIFIED GROUP ACUTE OR CHRONIC M5010 CERVICAL 03-29-2016 BOYD DEAN, DISC D/O , PSC W/RADICULOP ATHY UNS CERV RGN B351 TINEA 03-25-2016 PROGR[facility] UNGUIUM PODIATRY E1151 TYPE 2 DM 03-25-2016 PRO[facility] W/DIAB PODIATRY PERIPH ANGIOPATHY W/O GANGRENE M2570 OSTEOPHYTE 03-25-2016 [facility] UNSPECIFIED PODIATRY JOINT A72288 PAIN IN 03-25-2016 [facility] LEFT TOES PODIATRY J0110 ACUTE 03-24-2016 [facility] FRONTAL PHYSICIANS SINUSITIS GROUP UNSPECIFIED [id number] UNS OPEN 03-24-2016 [facility] WOUND UNS PHYSICIANS TOES GROUP W/DAMAGE NAIL INITIAL M5030 OT 02-23-2016 [facility] CERVICAL [facility] DISC INC DEGENERATIO N UNS CERV REGION M5412 RADICULOPAT 02-23-2016 BOYD DEAN HY CERVICAL , [facility] REGION R200 ANESTHESIA 01-23-2016 [facility] OF SKIN MEDICAL IMAGING ASS Z8603 PERSONAL 01-23-2016 [facility] HISTORY MEDICAL NEOPLASM OF IMAGING ASS UNCERTAIN BEHAVIOR 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 Y16696 UNSPECIFIED 01-14-2016 [place] MEDICAL PTOSIS OF SERV RIGHT FOUNDATION EYELID H9191 UNSPECIFIED 01-14-2016 [place] [facility] HEARING SERV LOSS RIGHT FOUNDATION EAR Y08481 FACIAL 01-14-2016 [place] MEDICAL WEAKNESS SERV [place]OUNDATION R9089 OT 01-14-2016 [place] MEDICAL ABNORMAL SERV FIND ON DX FOUNDATION IMAGING CNTRL NERV SYS Y22842 PERSONAL 01-14-2016 [place] MED[facility] HISTORY 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 UNSPECIFIED A86504 CONTACT 12-26-2015 SCIF[facility] ANG BLEPHAROCON JUNCTIVITIS RIGHT EYE M5136 OT 12-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 BURT MD, PSC RAL DISC DEGEN LUMBAR REGION R110 NAUSEA 12-03-2015 [facility] R140 ABDOMINAL 11-26-2015 [facility] DISTENSION MEDICAL GASEOUS IMAGING ASS B370 CANDIDAL 11-20-2015 [facility] STOMATITIS PHYSICIANS, [facility] E1121 TYPE 2 11-20-2015 [facility] DIABETES [facility] MELLITUS INC W/DIABETIC NEPHROPATHY J329 CHRONIC 11-13-2015 [facility] SINUSITIS PHYSICIANS UNSPECIFIED GROUP H5203 HYPERMETROP 09-08-2015 [facility] ALEM IA BILATERAL M797 FIBROMYALGI 08-29-2015 [facility] A [facility] INC 72664 DEGEN 07-28-2015 BOYD DEAN, LUMBAR/LUMB , PSC OSACRAL INTERVERTEB RAL DISC 7244 THORACIC/GINO 07-28-2015 GABBY BURT MD, PSC NEURITIS/RA DICULITIS UNSPEC 7291 UNSPECIFIED 07-28-2015 BOYD DEAN, MYALGIA , PSC AND MYOSITIS V7109 OBSERVATION 07-23-2015 COMPREHEND OF OTHER INC SUSPECTED MENTAL CONDITION 38868 UNSPECIFIED 06-20-2015 [facility] ARTHROPATHY INC OTHER SPECIFIED SITES 6011 CHRONIC 06-03-2015 [facility] PROSTATITIS [facility] P 46793 DEGEN 05-06-2015 [facility] THORACIC/TH MEDICAL ORACOLUMBAR IMAGING ASS INTERVERTEB RAL DISC 7231 CERVICALGIA 05-06-2015 [facility] 7245 UNSPECIFIED 05-06-2015 [facility] BACKACHE MEDICAL IM[facility]ING ASS 7840 HEADACHE 05-06-2015 [facility] 8470 NECK SPRAIN 05-06-2015 [facility] AND STRAIN PHYSICIANS, PLLC 01177 HEAD 05-06-2015 [facility] INJURY, PHYSICIANS, UNSPECIFIED PLLC 47584 HYPERTROPHY 04-29-2015 [facility] W/UR OBST & HOSPITAL P OTH LUTS 47933 URINARY 04-29-2015 [facility] P 7224 DEGENERATIO 04-28-2015 MADISI BUX N OF CERVICAL INTERVERTEB RAL DISC 7234 BRACHIAL 04-28-2015 FREDY DEAN NEURITIS [place] RADICULITIS NOS 74016 DIAB W/O 03-04-2015 [facility] COMP TYPE LAR II/UNS NOT CONSULTANTS STATED O UNCNTRL 2724 OTHER AND 03-04-2015 [facility] UNSPECIFIED [facility] INC HYPERLIPIDE LESTER 4019 UNSPECIFIED 03-04-2015 [facility] ESSENTIAL [facility] HYPERTENSIO INC N 59586 UNSPEC HTN 03-04-2015 [facility] HEART LAR DISEASE CONSULTANTS WITHOUT O HEART FAIL 05040 COR 03-04-2015 [facility] ATHEROSLERO [facility] UNSPEC INC TYPE VESSEL [place] T 88490 OTHER 02-26-2015 [facility] DYSPNEA AND MEDICAL [place]AG[place] [address] CHEST PAIN 02-26-2015 [place] MEDICAL UNSPECIFIED SERV FOUNDATION 57180 OTHER CHEST 02-26-2015 [facility] PAIN PHYSICIANS GROUP 2449 UNSPECIFIED 01-09-2015 [facility] PHYSICIANS HYPOTHYROID GROUP ISM 93212 DISPLCMT 01-09-2015 [facility] LUMBAR PHYSICIANS INTERVERT GROUP DISC W/O MYELOPATHY 82697 OTHER 01-09-2015 [facility] MALAISE AND PHYSICIANS FATIGUE GROUP 13694 DIAB W/O 12-28-2014 [facility] MENTION [facility] COMP TYPE INC II/UNS TYPE UNCNTRL 2768 HYPOPOTASSE 12-28-2014 [facility] P 3319 UNSPECIFIED 12-28-2014 [facility] CEREBRAL MEDICAL DEGENERATIO IMAGING ASS N 7820 DISTURBANCE 12-28-2014 [facility] P 00789 PRECORDIAL 12-28-2014 [facility] AMBULANCE SERVICE 82832 VOMITING 12-28-2014 [facility] AMBULANCE SERVICE V140 PERSONAL 12-28-2014 [facility] HISTORY OF [facility] ALLERGY TO [facility] P PENICILLIN 4414 ABDOMINAL 11-14-2014 [facility] WITHOUT MEDICAL G MENTION OF RUPTURE 490 BRONCHITIS 10-30-2014 [facility] NOT PHYSICIANS SPECIFIED GROUP ACUTE OR CHRONIC 54843 UNSPECIFIED 05-07-2014 [facility] ART ORCHITIS AND EPIDIDYMITI S 55714 OTHER 04-16-2014 [facility] CHRONIC [facility] PAIN INC 496 CHRONIC 04-16-2014 [facility] AIRWAY [facility] OBSTRUCTION INC NEC 7242 LUMBAGO 04-16-2014 JAIDEN CAMILLA V1582 PERS HX 04-16-2014 [facility] TOBACCO USE [facility] PRESENTING INC HAZARDS [facility] V5869 LONG-TERM 04-16-2014 [facility] (CURRENT) [facility] USE OF INC OTHER MEDICATIONS 10607 OTHER 04-02-2014 [facility] CONVULSIONS [facility] INC 8472 LUMBAR 04-02-2014 WEHRMAN III SPRAIN AND AREN STRAIN E9179 OTHER 04-02-2014 WEHRMAN III STRIKING AREN AGAINST W/WO SUBSEQUENT FALL 4139 OTHER AND 03-29-2014 [facility] UNSPECIFIED [facility] ANGINA INC PECTORIS 49173 ING ANDREW 03-29-2014 [facility] W/O MENTION BUBBA OBST/GANGRE N UNILAT/UNSP EC 5738 OTHER 03-29-2014 [facility] SPECIFIED BUBBA DISORDERS OF LIVER 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 77359 ABDOMINAL 03-29-2014 WEHRMAN III PAIN OTHER AREN SPECIFIED SITE 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 28731 ACUTE 03-03-2014 [facility] GASTRITIS [facility] WITHOUT INC MENTION OF HEMORRHAGE 07599 UNS 03-03-2014 WARE BRO GASTRITIS&G ASTRODUODIT IS W/O MENTION HEMORR 7213 LUMBOSACRAL 01-17-2014 V[facility] TREVINO SPONDYLOSIS WITHOUT MYELOPATHY 7831 ABNORMAL 10-13-2013 [facility] WEIGHT GAIN [facility] INC 71031 DIARRHEA 10-13-2013 [facility] INC V0481 NEED 08-23-2013 NATHALY RAI PROPHYLACTI AREN C VACCINATION &INOCULATIO N FLU 3510 BELLS PALSY 07-24-2013 [facility] 7218 OTHER 07-24-2013 [facility] DISORDERS OF SPINE 38227 OTH 07-18-2013 [facility] W/O INTRACT INC W/O STATUS MIGRAINOSUS 18390 OTHER 06-18-2013 [facility] CONDITIONS BUBBA OF BRAIN 7220 DISPLCMT 06-18-2013 [facility] CERV BUB[facility] INTERVERT DISC WITHOUT MYELOPATHY 7249 OTHER 06-18-2013 [facility] UNSPECIFIED BUBBA BACK DISORDER V571 OTHER 05-28-2013 [facility] PHYSICAL [facility] THERAPY INC 55747 UNSPECIFIED 03-06-2013 [facility] ARTHROPATHY [facility] P SHOULDER REGION 10208 PAIN IN 03-06-2013 [facility]GENCY SHOULDER SERVICES REGION 7295 PAIN IN 03-06-2013 [facility] SOFT BUBBA TISSUES OF LIMB 75977 OTHER 03-06-2013 [facility] NONSPECIFIC BUBBA ABNORMAL FINDING OF LUNG FIELD 81622 MICROSCOPIC 01-26-2013 NATHALY RAI HEMATURIA AREN 8460 SPRAIN AND 01-26-2013 NATHALY RAI STRAIN OF AREN LUMBOSACRAL 69421 OTHER 01-25-2013 [facility] DISEASES OF BUBBA SPLEEN 441.4 441.4 ABDOM 01-25-2013 Beryl AORTIC [facility] ANEURYSM Hospital 4411 THORACIC 01-25-2013 [facility] ANEURYSM, BUBBA RUPTURED 558.9 558.9 01-25-2013 [facility] IT NEC 5589 OTH&UNSPEC 01-25-2013 [facility] P GASTROENTER ITIS&COLITI S 47022 HYPERTROPHY 01-25-2013 [facility] PROSTATE BUBBA W/O UR OBST & OTH LUTS 6019 UNSPECIFIED 12-30-2012 [facility] PROSTATITIS INC 7823 EDEMA 12-30-2012 [facility] INC 54568 UNSPECIFIED 12-29-2012 NATHALY RAI AREN CONSTIPATIO N 15773 ABDOMINAL 12-15-2012 [facility] PA[facility], [facility] P 4400 ATHEROSCLER 12-14-2012 [facility] OSIS OF BUBBA AORTA 12314 ABDOMINAL 12-14-2012 [facility] CHARLEY PAIN, UNSPECIFIED SITE 81878 HEMATURIA 08-29-2012 [facility] 10526 OTHER 08-21-2012 [facility] SPECIF[facility] DISORDERS [facility] OF [place]DER 03036 ABDOMINAL 08-08-2012 [facility] PAIN RIGHT BUBBA LOWER QUADRANT 4419 AORTIC 08-01-2012 [facility] ANTONY ANEUR UNSPEC SITE WITHOUT MENTION RUPTURE 7881 DYSURIA 07-24-2012 [facility] ANTONY 87376 PRIMARY 06-14-2012 NICK LACRIMAL JAM ATROPHY 43863 VITREOUS 06-14-2012 NICK DEGENERATIO JAM N 45562 UNSPECIFIED 04-04-2012 KANE FERRARA BLEPHAROCON JUNCTIVITIS 52653 ESOPHAGEAL 04-04-2012 [facility] REFLUX 5533 DIAPHRAGMAT 04-04-2012 [facility] ANDREW W/O MENTION OBSTRUCTION /GANGREN 80981 OTHER LATE 03-25-2012 [facility] EFFECTS OF CEREBROVASC ULAR DISEASE V711 OBSERVATION 03-24-2012 [facility] S[facility]PECTED [facility] ASS MALIGNANT NEOPLASM 436 ACUTE BUT 02-28-2012 NATHALY RAI ILL-DEFINED AREN CEREBROVASC ULAR DISEASE 96337 UNS 12-22-2011 [facility] MALIGNANT NEOPLASM EYELID INCLUDING CANTHUS 06342 BASAL CELL 12-22-2011 [place] CARCINOMA ANESTHESIA OF EYELID ASSOC L INCLUDING CANTHUS 11537 OTHER 12-22-2011 [facility] CHRONIC DERMATITIS DUE TO SOLAR RADIATION 00404 OTHER 11-28-2011 [facility] SPECIFIED BUBBA ACQUIRED DEFORMITY OF HEAD 4660 ACUTE 10-11-2011 NATHALY RAI BRONCHITIS AREN 7862 COUGH 10-11-2011 [facility] 2392 NEOPLASMS 10-01-2011 [facility] UNSPEC NATURE BONE SOFT TISSUE&SKIN 7226 DEGENERATIO 09-21-2011 [facility] [place] INTER[facility] INTERNAL RAL DISC MED SITE UNSPEC 72833 BLEPHARITIS 09-07-2011 [facility] , UNSPECIFIED 3670 HYPERMETROP 08-20-2011 [facility] [place] VISION 46101 ABDOMINAL 07-27-2011 NEW PAIN RIGHT [facility] PSC QUADRANT 7210 CERVICAL 07-22-2011 NEW SPONDYLOSIS [place] WITHOUT [facility]INIC TEN [facility] MYELOPATHY 2250 BENIGN 06-15-2011 [facility] NEOPLASM OF [facility] PSC 80095 SHORTNESS 06-03-2011 [facility] 1101 DERMATOPHYT 05-18-2011 [facility] OSIS OF [place] NAIL INTERNAL MED 7822 LOCALIZED 05-18-2011 [facility] SUPERFICIAL [place] SWELLING INTERNAL MASS OR MED LUMP 7906 OTHER 04-13-2011 [facility] ABNORMAL [place] BLOOD INTERNAL CHEMISTRY MED 13027 DYSPHAGIA 02-25-2011 [facility]NSPECIFIED [facility] 7871 HEARTBURN 02-16-2011 C CELESTINO [facility] [id number] ABDOMINAL 02-16-2011 [facility] 1919 MALIGNANT 02-03-2011 [facility] NEOPLASM OF [place] BRAIN INTERNAL UNSPECIFIED MED SITE 78444 DYSPHAGIA 02-03-2011 [facility] 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 1104 DERMATOPHYT 12-14-2010 [facility] OSIS [facility] [place] FOOT INTERNAL MED 9953 ALLERGY 12-12-2010 [facility] UNSPECIFIED [place] NOT INTERNAL ELSEWHERE MED CLASSIFIED 7821 RASH AND 12-09-2010 [facility] OTHER [place] NONSPECIFIC INTERNAL SKIN MED ERUPTION 7079 CHRONIC 12-07-2010 [facility] ULCER [facility] [place] UNSPECIFIED INTERNAL SITE MEDI 3688 OTHER 09-21-2010 [facility] SPECIFIED [facility] VISUAL IMAGING ASS DISTURBANCE S 96508 MUSCLE 09-21-2010 [facility] 92486 FACIAL 09-21-2010 [facility] 43221 NAUSEA WITH 07-27-2010 [facility] 62739 OTHER AND 07-25-2010 [facility] UNSPECIFIED [place] INTERNAL CONJUNCTIVI MED TIS 5409 ACUTE 05-05-2010 [facility] WITHOUT HOSPITAL MENTION PROF SERV PERITONITIS 541 APPENDICITI 05-05-2010 [facility]IED [facility] 7804 DIZZINESS 05-05-2010 [facility] [id number] OTHER 05-05-2010 [facility] OTHER PROF SERV 65097 PAINFUL 11-05-2009 [facility] RESPIRATION [place] INTERNAL MED 42194 OTHER SPEC 09-03-2009 [place] [facility] GASTRIT[facility] SERV WITHOUT [facility]OUNDATIO MENTION HEMORRHAGE 79130 DUODENITIS 09-03-2009 [facility] MENTION OF INC HEMORRHAGE 92067 NAUSEA 09-03-2009 [facility] & ALONE CYTOLOGY LAB 35936 UNSPECIFIED 05-07-2009 [facility] TIS PROF SERV 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 UNSPECIFIED MED 79472 OTHER 01-13-2009 [facility] ANXIETY [place] INTERNAL MED 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 76218 ONYCHIA AND 12-16-2008 [facility] PARONYCHIA [place] OF TOE INTERNAL MED 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 CHRONIC 11-13-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[facility] PAIN [place] SYNDROME INTERNAL MED 4659 ACUTE URIS 10-30-2008 [facility] OF [facility] UNSPECIFIED INTERNAL SITE MED 89399 ABDOMINAL 07-17-2008 [place] PAIN, LEFT CLINIC UPPER LABORATORY QUADRANT 67979 DISORDER OF 06-25-2008 [facility] CART[facility] UNSPECIFIED 3674 PRESBYOPIA 04-11-2008 MICHA[facility] MIDDLE[facility] 7802 SYNCOPE AND 03-29-2008 [facility] 11668 TRANSIENT 03-28-2008 [facility] SERVICE AWARENESS 4011 ESSENTIAL 03-14-2008 NEW HYPERTENSIO [place] N, BENIGN CLINIC PSC 14235 ANNIE HTN 02-27-2008 NEW HEART [place] DISEASE CLINIC 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 2409 GOITER, 02-20-2008 [facility] 7931 NONSPEC 02-20-2008 [facility] FIND RAD MEDICAL OTH EXAM [facility] 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 FIELD 3569 UNSPEC 02-16-2008 [facility], HEREDIT&IDI [facility] OPATHIC PERIPHERAL NEUROPATHY 7812 ABNORMALITY 01-23-2008 [facility], OF GAIT [facility] 4619 ACUTE 12-14-2007 [facility] UNSPECIFIED Allergies, Adverse Reactions, Alerts Type Drug Allergy Adverse Reaction to Substance Substance Reaction Severity Penicillin I-RASH Intermediate SULFA (sulfonamide) SICK TO STOMACH Unknown Clinical Alert Notifications Alert Asthma: 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 AR 5 MA MG CY TA OF BL CY ET NT HI AN A IN C PA 65 08 08 27 30 00 EA Ac NT 86 -2 -[address] ti OP 20 4- 9- 00 00 SI ve RA 56 20 20 49 DE ZO 09 17 17 91 LE 0 23 PH AR SO MA D CY DR OF 40 CY NT MG HI AN TA A B IN C FU 00 07 06 30 30 00 EA Ac RO 37 -2 -[address] ti SE 80 4- 9- 00 00 SI ve AL 21 20 20 49 DE DE 61 17 17 91 0 24 PH 40 AR MA MG CY TA OF BL CY ET NT HI AN A IN C ME 23 07 06 30 30 00 EA Ac TF 15 -2 -[address] ti OR 50 4- 9- 00 00 SI ve AL 10 20 20 49 DE N 21 17 17 91 HC 0 25 PH L AR 50 MA 0 CY MG OF TA CY BL NT ET HI AN A IN C LE 00 07 06 30 30 00 EA Ac VO 37 -1 -[address] ti TH 81 7- 2- 00 00 SI ve YR 80 20 20 49 DE OX 57 17 17 82 IN 7 47 PH E AR 75 MA CY MC G OF TA CY BL NT ET HI AN A IN C AT 60 08 09 30 30 00 EA Ac OR 50 -1 -[address] ti VA 52 1- 5- [address] 58 20 20 49 DE AT 00 17 17 10 IN 9 75 PH AR 40 MA CY MG OF TA CY BL NT ET HI AN A IN C HY 00 08 09 [address] 40 -1 -[address] ti OC 60 0- 5- 00 00 SI ve OD 12 20 20 0 49 DE ON 50 17 17 74 -A 5 49 PH CE AR TA MA AL CY NO PH OF N CY 10 NT -3 HI 25 AN A IN C LO 16 07 06 30 30 00 EA Ac SA 71 -1 -[address] ti RT 40 4- 5- 00 00 SI ve AN 22 20 20 49 DE -H [address] 1 86 PH Z AR 10 MA 0- CY 12 .5 OF CY MG NT HI TA AN B A IN C EF 00 08 09 30 30 00 EA Ac FI 00 -0 -[address] ti EN 25 2- 1- 00 00 SI ve T 12 20 20 49 DE 10 33 17 17 64 0 36 PH MG AR MA TA CY BL ET OF CY NT HI AN A IN C AL 60 07 09 30 30 00 EA Ac FU 50 -3 -[address] ti ZO 52 1- 1- 00 00 SI ve SI 85 20 20 47 DE N 00 17 17 18 HC 1 04 PH L AR ER MA CY 10 OF MG CY NT TA HI BL AN ET A IN C CL 00 07 08 60 30 00 EA Ac ON 22 -2 -[address] ti AZ 83 6- 5- 00 00 SI ve EP 00 20 20 49 DE AM 35 17 17 57 0 34 PH 0. AR 5 MA MG CY TA OF BL CY ET NT HI AN A IN C PA 65 07 08 30 30 00 EA Ac NT 86 -2 -[address] ti OP 20 4- 5- 00 00 SI ve RA 56 20 20 49 DE ZO 09 17 17 54 LE 0 02 PH AR SO MA D CY DR OF 40 CY NT MG HI AN TA A B IN C ME 23 07 08 30 30 00 EA Ac TF 15 -2 -[address] ti OR 50 4- 5- 00 00 SI ve AL 10 20 20 49 DE N 21 17 17 54 HC 0 03 PH L AR 50 MA 0 CY MG OF TA CY BL NT ET HI AN A IN C FU 00 07 08 30 30 00 EA Ac RO 37 -2 -[address] ti SE 80 4- 5- 00 00 SI ve AL 21 20 20 49 DE DE 61 17 17 54 0 05 PH 40 AR MA MG CY TA OF BL CY ET NT HI AN A IN C LE 00 07 08 30 30 00 EA Ac VO 37 -1 -[address] ti TH 81 7- 8- 00 00 SI ve YR 80 20 20 49 DE OX 51 17 17 46 IN 0 96 PH E AR 75 MA CY MC G OF TA CY BL NT ET HI AN A IN C VE 00 07 08 18 18 00 EA Ac NT 17 -1 -[address] ti OL 30 9- 8- 00 00 SI ve IN 68 20 20 49 DE 22 17 17 49 HF 0 99 PH A AR 90 MA CY MC G OF IN CY NG NT LE HI R AN A IN C HY 07 08 11 [address] 40 -1 -[address] ti OC 60 2- 8- 00 00 SI ve OD 12 20 20 0 49 DE ON 50 17 17 40 -A 5 66 PH CE AR TA MA AL CY NO PH OF N CY 10 NT -3 HI 25 AN A IN C LO 16 07 08 30 30 00 EA Ac SA 71 -1 -[address] ti RT 40 2- 1- 00 00 SI ve AN 22 20 20 49 DE -H [address] 1 71 PH Z AR 10 MA 0- CY 12 .5 OF CY MG NT HI TA AN B A IN C AT 60 07 08 30 30 00 EA Ac OR 50 -1 -[address] ti VA 52 2- 1- [address] 58 20 20 49 DE AT 00 17 17 10 IN 9 75 PH AR 40 MA CY MG OF TA CY BL NT ET HI AN A IN C AL 60 06 07 30 30 00 EA Ac FU 50 -2 -[address] ti ZO 52 7- 8- 00 00 SI ve SI 85 20 20 47 DE N 00 17 17 18 HC 1 04 PH L AR ER MA CY 10 OF MG CY NT TA HI BL AN ET A IN C CL 00 06 07 60 30 00 EA Ac ON 18 -2 -[address] ti AZ 50 6- 8- 00 00 SI ve EP 06 20 20 48 DE AM 30 17 17 45 5 26 PH 0. AR 5 MA MG CY TA OF BL CY ET NT HI AN A IN C ME 23 06 07 30 30 00 EA Ac TF 15 -2 -[address] ti OR 50 2- 8- 00 00 SI ve AL 10 20 20 49 DE N 21 17 17 21 HC 0 61 PH L AR 50 MA 0 CY MG OF TA CY BL NT ET HI AN A IN C NI 43 06 07 25 25 00 EA Ac TR 59 -2 -[address] ti OG 80 1- 1- 00 00 SI ve LY 43 20 20 49 DE CE 61 17 17 20 RI 1 38 PH N AR 0. MA 4 CY MG OF TA CY BL NT ET HI AN SL A IN C GA 43 06 07 40 2 00 EA Ac 38 -1 -[address] ti LY 60 9- 1- .0 00 SI ve TE 09 20 20 00 49 DE -G 01 17 17 17 9 12 PH SO AR GINO MA TI CY ON OF CY NT HI AN A IN C FU 00 06 07 30 30 00 EA Ac RO 37 -1 -[address] ti SE 80 6- 1- 00 00 SI ve AL 21 20 20 49 DE DE 61 17 17 15 0 63 PH 40 AR MA MG CY TA OF BL CY ET NT HI AN A IN C PA 65 06 07 30 30 00 EA Ac NT 86 -1 -[address] ti OP 20 6- 1- 00 00 SI ve RA 56 20 20 49 DE ZO 09 17 17 15 LE 0 64 PH AR SO MA D CY DR OF 40 CY NT MG HI AN TA A B IN C LO 16 06 07 23 23 00 EA Ac SA 71 -1 -[address] ti RT 40 9- 1- 00 00 SI ve AN 22 20 20 48 DE -H [address] 1 90 PH Z AR 10 MA 0- CY 12 .5 OF CY MG NT HI TA AN B A IN C AT 60 06 07 30 30 00 EA Ac OR 50 -1 -[address] ti VA 52 3- 4- [address] 58 20 20 49 DE AT 00 17 17 10 IN 9 75 PH AR 40 MA CY MG OF TA CY BL NT ET HI AN A IN C HY 00 06 07 12 [address] 40 -1 -[address] ti OC 60 1- 4- 00 00 SI ve OD 12 20 20 0 49 DE ON 50 17 17 08 -A 5 80 PH CE AR TA MA AL CY NO PH OF N CY 10 NT -3 HI 25 AN A IN C SI 16 06 07 30 30 00 EA Ac MV 71 -0 -[address] ti 40 8- 4- 00 00 SI ve TA 68 20 20 49 DE TI 40 17 17 06 N 3 68 PH 40 AR MA MG CY TA OF BL CY ET NT HI AN A IN C LE 00 06 07 30 30 00 EA Ac VO 37 -1 -[address] ti TH 81 2- 4- 00 00 SI ve YR 80 20 20 49 DE OX 51 17 17 09 IN 0 75 PH E AR 75 MA CY MC G OF TA CY BL NT ET HI AN A IN C ME 00 05 06 60 30 00 EA Ac TH 60 -3 -[address] ti OC 34 0- 0- 00 00 SI ve AR 48 20 20 48 DE BA 62 17 17 92 MO 1 61 PH L AR 75 MA 0 CY MG OF TA CY BL NT ET HI AN A IN C CL 00 05 06 60 30 00 EA Ac ON 18 -2 -[address] ti AZ 50 1- 3- 00 00 SI ve EP 06 20 20 48 DE AM 30 17 17 45 5 26 PH 0. AR 5 MA MG CY TA OF BL CY ET NT HI AN A IN C VE 00 05 06 18 18 00 EA Ac NT 17 -2 -[address] ti OL 30 2- 3- 00 00 SI ve IN 68 20 20 48 DE 22 17 17 83 HF 0 40 PH A AR 90 MA CY MC G OF IN CY NG NT LE HI R AN A IN C ME 23 05 06 30 30 00 EA Ac TF 15 -2 -[address] ti OR 50 2- 3- 00 00 SI ve AL 10 20 20 48 DE N 21 17 17 84 HC 0 08 PH L AR 50 MA 0 CY MG OF TA CY BL NT ET HI AN A IN C LO 16 05 06 30 30 00 EA Ac SA 71 -2 -[address] ti RT 40 3- 3- 00 00 SI ve AN 22 20 20 48 DE -H [address] 1 90 PH Z AR 10 MA 0- CY 12 .5 OF CY MG NT HI TA AN B A IN C AL 60 05 06 30 30 00 EA Ac FU 50 -2 -[address] ti ZO 52 3- 3- 00 00 SI ve SI 85 20 20 47 DE N 00 17 17 18 HC 1 04 PH L AR ER MA CY 10 OF MG CY NT TA HI BL AN ET A IN C ON 65 05 06 30 8 00 EA Ac DA 86 -1 -[address] ti NS 20 4- 6- 00 00 SI ve ET 18 20 20 48 DE RO 73 17 17 74 N 0 59 PH HC AR L MA 4 CY MG OF TA CY BL NT ET HI AN A IN C PA 65 05 06 30 30 00 EA Ac NT 86 -1 -[address] ti OP 20 4- 6- 00 00 SI ve RA 56 20 20 48 DE ZO 09 17 17 74 LE 0 60 PH AR SO MA D CY DR OF 40 CY NT MG HI AN TA A B IN C HY 00 05 06 12 [address] 40 -1 -[address] ti OC 60 2- 6- 00 00 SI ve OD 12 20 20 0 48 DE ON 50 17 17 72 -A 5 38 PH CE AR TA MA AL CY NO PH OF N CY 10 NT -3 HI 25 AN A IN C LE 00 05 06 30 30 00 EA Ac VO 37 -0 -[address] ti TH 81 9 00 SI ve YR 80 20 20 48 DE OX 57 17 17 68 IN 7 28 PH E AR 75 MA CY MC G OF TA CY BL NT ET HI AN A IN C SI 16 05 06 30 30 00 EA Ac MV 71 -0 -[address] ti 40 9 00 SI ve TA 68 20 20 48 DE TI 40 17 17 68 N 3 27 PH 40 AR MA MG CY TA OF BL CY ET NT HI AN A IN C FU 00 05 06 30 30 00 EA Ac RO 37 -0 -[address] ti SE 80 9 00 SI ve AL 21 20 20 48 DE DE 61 17 17 68 0 20 PH 40 AR MA MG CY TA OF BL CY ET NT HI AN A IN C OM 62 04 05 30 30 00 EA Ac EP 17 -2 -[address] ti RA 50 6 00 SI ve ZO 13 20 20 48 DE LE 64 17 [address] AR MA 40 CY MG OF CY CA NT PS HI UL AN E A IN C CL 00 04 05 60 30 00 EA Ac ON 18 -2 -[address] ti AZ 50 6 00 SI ve EP 06 20 20 48 DE AM 30 17 17 45 5 26 PH 0. AR 5 MA MG CY TA OF BL CY ET NT HI AN A IN C PO 51 04 05 52 30 00 EA Ac LY 99 -2 -[address] ti ET 10 6 00 SI ve HY 45 20 20 0 48 DE LE 75 17 17 45 NE 7 27 PH AR GL MA YC CY OL OF 33 CY 50 NT HI PO AN WD A IN C LO 16 04 05 30 30 00 EA Ac SA 71 -2 -[address] ti RT 40 3- 6 00 SI ve AN 22 20 20 47 DE -H [address] 1 12 PH Z AR 10 MA 0- CY 12 .5 OF CY MG NT HI TA AN B A IN C ME 00 04 05 30 30 00 EA Ac TF 09 -2 -[address] ti OR 31 6 00 SI ve AL 04 20 20 48 DE N 80 17 17 44 HC 1 51 PH L AR 50 MA 0 CY MG OF TA CY BL NT ET HI AN A IN C AL 60 04 05 30 30 00 EA Ac FU 50 -1 -[address] ti ZO 52 9- 9- 00 00 SI ve SI 85 20 20 47 DE N 00 17 17 18 HC 1 04 PH L AR ER MA CY 10 OF MG CY NT TA HI BL AN ET A IN C LE 00 04 05 30 30 00 EA Ac VO 37 -1 -[address] ti TH 81 0- 2- 00 00 SI ve YR 80 20 20 48 DE OX 57 17 17 30 IN 7 80 PH E AR 75 MA CY MC G OF TA CY BL NT ET HI AN A IN C FU 63 04 05 30 30 00 EA Ac RO 30 -1 -[address] ti SE 40 0- 2- 00 00 SI ve AL 62 20 20 48 DE DE 51 17 17 30 0 81 PH 40 AR MA MG CY TA OF BL CY ET NT HI AN A IN C SI 16 04 05 30 30 00 EA Ac MV 71 -1 -[address] ti 40 0- 2- 00 00 SI ve TA 68 20 20 48 DE TI 40 17 17 30 N 3 79 PH 40 AR MA MG CY TA OF BL CY ET NT HI AN A IN C HY 00 04 05 12 [address] 40 -1 -[address] ti OC 60 2- 2- 00 00 SI ve OD 12 20 20 0 48 DE ON 50 17 17 33 -A 5 38 PH CE AR TA MA AL CY NO PH OF N CY 10 NT -3 HI 25 AN A IN C CL 00 03 04 60 30 00 EA Ac ON 18 -1 -[address] ti AZ 50 8- 1- 00 00 SI ve EP 06 20 20 48 DE AM 30 17 17 02 5 34 PH 0. AR 5 MA MG CY TA OF BL CY ET NT HI AN A IN C PO 51 03 04 25 15 00 EA Ac LY 99 -2 -[address] ti ET 10 0- 1- 00 00 SI ve HY 45 20 20 0 48 DE LE 75 17 17 02 NE 8 91 PH AR GL MA YC CY OL OF 33 CY 50 NT HI PO AN WD A IN C OM 62 03 04 30 30 00 EA Ac EP 17 -2 -[address] ti RA 50 0- 1- 00 00 SI ve ZO 13 20 20 48 DE LE 64 17 17 [address] AR MA 40 CY MG OF CY CA NT PS HI UL AN E A IN C ME 00 03 04 30 30 00 EA Ac TF 09 -2 -[address] ti OR 31 0- 1- 00 00 SI ve AL 04 20 20 48 DE N 80 17 17 03 HC 1 78 PH L AR 50 MA 0 CY MG OF TA CY BL NT ET HI AN A IN C LO 16 03 04 30 30 00 EA Ac SA 71 -2 -[address] ti RT 40 2- 1- 00 00 SI ve AN 22 20 20 47 DE -H [address] 1 12 PH Z AR 10 MA 0- CY 12 .5 OF CY MG NT HI TA AN B A IN C ES 65 03 04 30 30 00 EA Ac CI 86 -2 -[address] ti TA 20 1- 1- 00 00 SI ve LO 37 20 20 48 DE KS 40 17 17 05 AM 1 71 PH AR 10 MA CY MG OF TA CY BL NT ET HI AN A IN C AL 60 03 04 30 30 00 EA Ac FU 50 -1 -[address] ti ZO 52 7- 1- 00 00 SI ve SI 85 20 20 47 DE N 00 17 17 18 HC 1 04 PH L AR ER MA CY 10 OF MG CY NT TA HI BL AN ET A IN C HY 00 03 04 12 [address] 40 -1 -[address] ti OC 60 3- 4- 00 00 SI ve OD 12 20 20 0 47 DE ON 50 17 17 94 -A 5 33 PH CE AR TA MA AL CY NO PH OF N CY 10 NT -3 HI 25 AN A IN C FU 63 03 04 30 30 00 EA Ac RO 30 -0 -[address] ti SE 40 9- 4- 00 00 SI ve AL 62 20 20 47 DE DE 51 17 17 91 0 08 PH 40 AR MA MG CY TA OF BL CY ET NT HI AN A IN C BE 67 03 04 21 7 00 EA Ac NZ 87 -1 -[address] ti ON 70 5- 4- 00 00 SI ve AT 10 20 20 47 DE AT 50 17 17 98 E 5 41 PH 10 AR 0 MA MG CY CA OF PS CY UL NT E HI AN A IN C AZ 59 03 04 6. 5 00 EA Ac IT 76 -1 -[address] ti HR 23 5- 4- 0 00 SI ve OM 06 20 20 47 DE YC 00 17 17 98 IN 1 42 PH AR 25 MA 0 CY MG OF TA CY BL NT ET HI AN A IN C SI 16 03 04 30 30 00 EA Ac MV 71 -0 -[address] ti 40 8- 7- 00 SI ve TA 68 20 20 47 DE TI 40 17 17 89 N 3 60 PH 40 AR MA MG CY TA OF BL CY ET NT HI AN A IN C LE 00 03 04 30 30 00 EA Ac VO 37 -0 -[address] ti TH 81 8- 7 00 SI ve YR 80 20 20 47 DE OX 57 17 17 89 IN 7 59 PH E AR 75 MA CY MC G OF TA CY BL NT ET HI AN A IN C VE 00 02 03 18 18 00 EA Ac NT 17 -2 -[address] ti OL 30 7- 00 SI ve IN 68 20 20 47 DE 22 17 17 76 HF 0 88 PH A AR 90 MA CY MC G OF IN CY NG NT LE HI R AN A IN C CL 00 02 03 60 30 00 EA Ac ON 18 -1 -[address] ti AZ 50 7- 4 00 SI ve EP 06 20 20 47 DE AM 30 17 17 66 5 01 PH 0. AR 5 MA MG CY TA OF BL CY ET NT HI AN A IN C ME 23 02 03 30 30 00 EA Ac TF 15 -1 -[address] ti OR 50 7- 4 00 SI ve AL 10 20 20 47 DE N 21 17 17 66 HC 0 02 PH L AR 50 MA 0 CY MG OF TA CY BL NT ET HI AN A IN C ES 65 02 03 30 30 00 EA Ac CI 86 -1 -[address] ti TA 20 7- 4 00 SI ve LO 37 20 20 47 DE KS 40 17 17 66 AM 1 03 PH AR 10 MA CY MG OF TA CY BL NT ET HI AN A IN C LO 16 02 03 30 30 00 EA Ac SA 71 -2 -[address] ti RT 40 1- 4 00 SI ve AN 22 20 20 47 DE -H [address] 1 12 PH Z AR 10 MA 0- CY 12 .5 OF CY MG NT HI TA AN B A IN C HY 00 02 03 [address] 40 -1 -[address] ti OC 60 1- 7- 00 00 SI ve OD 12 20 20 0 47 DE ON 50 17 17 57 -A 5 63 PH CE AR TA MA AL CY NO PH OF N CY 10 NT -3 HI 25 AN A IN C AL 60 02 03 30 30 00 EA Ac FU 50 -1 -[address] ti ZO 52 1- 7- 00 00 SI ve SI 85 20 20 47 DE N 00 17 17 18 HC 1 04 PH L AR ER MA CY 10 OF MG CY NT TA HI BL AN ET A IN C OM 62 02 03 30 30 00 EA Ac EP 17 -1 -[address] ti RA 50 5- 7- 00 00 SI ve ZO 13 20 20 47 DE LE 64 17 [address] AR MA 40 CY MG OF CY CA NT PS HI UL AN E A IN C LE 00 02 03 30 30 00 EA Ac VO 37 -0 -[address] ti TH 81 3- 0- 00 00 SI ve YR 80 20 20 47 DE OX 51 17 17 09 IN 0 20 PH E AR 75 MA CY MC G OF TA CY BL NT ET HI AN A IN C SI 16 02 03 30 30 00 EA Ac MV 71 -0 -[address] ti 40 8- 0- 00 00 SI ve TA 68 20 20 47 DE TI 40 17 17 54 N 3 38 PH 40 AR MA MG CY TA OF BL CY ET NT HI AN A IN C DO 49 02 03 60 30 00 EA Ac XY 88 -0 -[address] ti CY 40 7- 0- 00 00 SI ve CL 72 20 20 47 DE IN 70 17 17 52 E 3 71 PH MO AR NO MA CY 10 0 OF MG CY NT CA HI P AN A IN C FU 63 01 03 30 30 00 EA Ac RO 30 -3 -[address] ti SE 40 0- 3- 00 00 SI ve AL 62 20 20 47 DE DE 51 17 17 42 0 62 PH 40 AR MA MG CY TA OF BL CY ET NT HI AN A IN C LO 16 01 02 30 30 00 EA Ac SA 71 -2 -[address] ti RT 40 0- 4- 00 00 SI ve AN 22 20 20 47 DE -H [address] 1 47 PH Z AR 10 MA 0- CY 12 .5 OF CY MG NT HI TA AN B A IN C OM 62 01 02 30 30 00 EA Ac EP 17 -1 -[address] ti RA 50 6- 7- 00 00 SI ve ZO 13 20 20 47 DE LE 64 17 [address] AR MA 40 CY MG OF CY CA NT PS HI UL AN E A IN C ME 23 01 02 30 30 00 EA Ac TF 15 -1 -[address] ti OR 50 6- 7- 00 00 SI ve AL 10 20 20 47 DE N 21 17 17 25 HC 0 37 PH L AR 50 MA 0 CY MG OF TA CY BL NT ET HI AN A IN C HY 00 01 02 [address] 40 -1 -[address] ti OC 60 2- 7- 00 00 SI ve OD 12 20 20 0 47 DE ON 50 17 17 21 -A 5 53 PH CE AR TA MA AL CY NO PH OF N CY 10 NT -3 HI 25 AN A IN C AL 60 02 30 30 00 EA Ac FU 50 -0 -[address] ti ZO 52 9- 0- 00 00 SI ve SI 85 20 20 47 DE N 00 17 17 18 HC 1 04 PH L AR ER MA CY 10 OF MG CY NT TA HI BL AN ET A IN C VE 00 02 18 30 00 EA Ac NT 17 -0 -[address] ti OL 30 9- 0- 00 00 SI ve IN 68 20 20 43 DE 22 17 17 96 HF 0 66 PH A AR 90 MA CY MC G OF IN CY NG NT LE HI R AN A IN C SI 16 02 30 30 00 EA Ac MV 71 -0 -[address] ti 40 9- 0- 00 00 SI ve TA 68 20 20 47 DE TI 40 17 17 16 N 3 44 PH 40 AR MA MG CY TA OF BL CY ET NT HI AN A IN C CL 00 12 02 60 30 00 EA Ac ON 18 -2 -[address] ti AZ 50 9- 3- 00 00 SI ve EP 06 20 20 45 DE AM 30 16 17 88 5 00 PH 0. AR 5 MA MG CY TA OF BL CY ET NT HI AN A IN C LE 00 02 30 30 00 EA Ac VO 37 -0 -[address] ti TH 81 2- 3- 00 00 SI ve YR 80 20 20 47 DE OX 51 17 17 09 IN 0 20 PH E AR 75 MA CY MC G OF TA CY BL NT ET HI AN A IN C FU 63 12 01 30 30 00 EA Ac RO 30 -2 -[address] ti SE 40 6- 7- 00 00 SI ve AL 62 20 20 47 DE DE 51 16 17 01 0 61 PH 40 AR MA MG CY TA OF BL CY ET NT HI AN A IN C ME 00 12 01 60 30 00 EA Ac TH 60 -2 -[address] ti OC 34 7- 7- 00 00 SI ve AR 48 20 20 47 DE BA 62 16 17 02 MO 1 89 PH L AR 75 MA 0 CY MG OF TA CY BL NT ET HI AN A IN C ME 23 12 01 30 30 00 EA Ac TF 15 -1 -[address] ti OR 50 5- 0- 00 00 SI ve AL 10 20 20 46 DE N 21 16 17 90 HC 0 54 PH L AR 50 MA 0 CY MG OF TA CY BL NT ET HI AN A IN C LO 16 12 30 30 00 EA Ac SA 71 -2 -[address] ti RT 40 1- 0- 00 00 SI ve AN 22 20 20 46 DE -H [address] 1 32 PH Z AR 10 MA 0- CY 12 .5 OF CY MG NT HI TA AN B A IN C SI 16 12 30 30 00 EA Ac MV 71 -0 -[address] ti 40 8- 3- 00 00 SI ve TA 68 20 20 46 DE TI 40 16 17 81 N 3 82 PH 40 AR MA MG CY TA OF BL CY ET NT HI AN A IN C OM 62 12 01 30 30 00 EA Ac EP 17 -1 -[address] ti RA 50 2- 3- 00 00 SI ve ZO 13 20 20 46 DE LE 64 16 [address] AR MA 40 CY MG OF CY CA NT PS HI UL AN E A IN C HY 00 12 01 [address] 40 -1 -[address] ti OC 60 3- 3- 00 00 SI ve OD 12 20 20 0 46 DE ON 50 16 17 86 -A 5 68 PH CE AR TA MA AL CY NO PH OF N CY 10 NT -3 HI 25 AN A IN C AL 60 12 01 30 30 00 EA Ac FU 50 -0 -[address] ti ZO 52 5- 9- 00 00 SI ve SI 85 20 20 44 DE N 00 16 17 91 HC 1 27 PH L AR ER MA CY 10 OF MG CY NT TA HI BL AN ET A IN C LO 16 11 11 0 30 30 EA 33 MC Ac SA 71 -2 -[address] 79 KE ti RT 40 9- 9- 00 SI 16 AL ve AN 22 20 20 0 DE E -H [address] 1 PH Z AR WI 10 MA LL 0- CY IA 12 M .5 OF F MG CY NT TA HI B AN A GA 16 11 11 0 60 30 EA 33 MC Ac BA 71 -1 -[address] 63 KE ti PE 40 4- 4- 00 SI 87 AL ve NT 66 20 20 0 DE E IN 20 13 13 JR 1 PH 30 AR WI 0 MA LL MG CY IA M CA OF F PS UL CY E NT HI AN A LO 16 06 11 4 15 15 EA 31 Ac SA 71 -1 -[address] 99 KE ti RT 40 0- 2- 00 SI 99 AL ve AN 22 20 20 0 DE E -H [address] 1 PH Z AR WI 10 MA LL 0- CY IA 12 M .5 OF F MG CY NT TA HI B AN A SI 16 11 11 0 30 30 EA 33 Ac MV 71 -1 -[address] 61 KE ti 40 2- 2- 00 SI 39 AL ve TA 68 20 20 0 DE E TI 40 13 13 JR N 3 PH 40 AR WI MA LL MG CY IA M TA OF F BL ET CY NT HI AN A OM 62 09 11 2 30 30 EA 32 Ac EP 17 -0 -[address] 86 KE ti RA 50 4- 1- 00 SI 09 AL ve ZO 13 20 20 0 DE E LE 63 [address] AR WI MA LL 40 CY IA M MG OF F CA CY PS NT UL HI E AN A ME 00 08 11 3 30 30 EA 32 Ac TF 09 -0 -[address] 52 KE ti OR 31 2- 9- 00 SI 59 AL ve AL 04 20 20 0 DE E N 81 13 13 JR HC 0 PH L AR WI 50 MA LL 0 CY IA MG M OF F TA BL CY ET NT HI AN A FU 63 08 11 2 30 30 EA 32 MC Ac RO 30 -2 -[address] 80 KE ti SE 40 9- 5- 00 SI 32 AL ve AL 62 20 20 0 DE E DE 51 13 13 JR 0 PH 40 AR WI MA LL MG CY IA M TA OF F BL ET CY NT HI AN A LE 00 07 11 3 30 30 EA 32 Ac VO 37 -2 -[address] 46 KE ti TH 81 6- 2- 00 SI 48 AL ve YR 80 20 20 0 DE E OX 50 13 13 JR IN 1 PH E AR WI 75 MA LL CY IA MC M G OF F TA BL CY ET NT HI AN A CL 00 10 11 0 45 15 EA 33 MC Ac ON 22 -1 -[address] 31 KE ti AZ 83 4- 2- 00 SI 89 AL ve EP 00 20 20 0 DE E AM 45 13 13 JR 1 0 PH AR WI MG MA LL CY IA TA M BL OF F ET CY NT HI AN A LO 16 06 10 4 15 15 EA 31 MC Ac SA 71 -1 -[address] 99 KE ti RT 40 0- 5- 00 SI 99 AL ve AN 22 20 20 0 DE E -H [address] 1 PH Z AR WI 10 MA LL 0- CY IA 12 M .5 OF F MG CY NT TA HI B AN A CL 00 10 10 0 45 15 EA 33 MC Ac ON 22 -1 -[address] 31 KE ti AZ 83 4- 4- 00 SI 89 AL ve EP 00 20 20 0 DE E AM 45 13 13 JR 1 0 PH AR WI MG MA LL CY IA TA M BL OF F ET CY NT HI AN A SI 16 08 10 2 30 30 EA 32 MC Ac MV 71 -0 -[address] 57 KE ti 40 7- 2- 00 SI 30 AL ve TA 68 20 20 0 DE E TI 40 13 13 JR N 3 PH 40 AR WI MA LL MG CY IA M TA OF F BL ET CY NT HI AN A OM 62 09 10 2 30 30 EA 32 MC Ac EP 17 -0 -[address] 86 KE ti RA 50 4- 9- 00 SI 09 AL ve ZO 13 20 20 0 DE E LE 63 13 [address] AR [place] MA LL 40 CY IA M MG OF F CA CY PS NT UL HI E AN A ME 00 08 10 3 30 30 EA 32 MC Ac TF 09 -0 -[address] 52 KE ti OR 31 2- 7- 00 SI 59 AL ve AL 04 20 20 0 DE E N 81 13 13 JR HC 0 PH L AR [place] 50 MA LL 0 CY IA MG M OF F TA BL CY ET NT HI AN A FU 63 08 10 2 30 30 EA 32 MC Ac RO 30 -2 -[address] 80 KE ti SE 40 9- 3- 00 SI 32 AL ve AL 62 20 20 0 DE E DE 51 13 13 JR 0 PH 40 AR WI MA LL MG CY IA M TA OF F BL ET CY NT HI AN A SO 00 02 0 No DI 40 -2 UM 97 8- Lo 98 20 ng CH 30 13 er LO 9 RI Ac DE ti ve 0. 9% SO GINO TI ON Sa 63 02 0 No li 80 -2 ne 70 8- Lo 10 20 ng Fl 07 13 er us 5 h Ac 10 ti ML ve Sy ri ng e ON 00 02 0 No DA 64 -2 NS 16 8- Lo ET 08 20 ng RO 02 13 er N 5 HC Ac L ti 4 ve MG /2 ML AL KS 51 02 0 No OM 07 -2 ET 90 8- Lo NG 89 20 ng ZI 52 13 er NE 0H Ac 25 ti MG ve TA BL ET TA KE EX 00 08 10 2 30 30 EA 23 MC Ac FO 07 -1 -[address] 73 KE ti RG 80 9- 9- 00 SI 45 AL ve E 48 20 20 DE E 10 91 11 11 JR -1 5 PH 60 AR [place] MA LL MG CY IA M TA OF F BL ET CY NT HI AN A SI 16 08 10 1 30 30 EA 23 BE Ac MV 71 -2 -[address] 77 SS ti 40 3- 8- 00 SI 86 ON ve TA 68 20 20 DE TI [address] N 3 PH EP 40 AR HE MA N MG CY A TA OF BL ET CY NT HI AN A ME 00 08 10 1 30 30 EA 23 BE Ac TF 09 -2 -[address] 77 SS ti OR 31 3- 8- 00 SI 83 ON ve AL 04 20 20 DE N [address] HC 0 PH EP L AR HE 50 MA N 0 CY A MG OF TA BL CY ET NT HI AN A LE 00 07 10 5 30 30 EA 23 BE Ac VO 37 -1 -[address] 24 SS ti TH 81 1- 5- 00 SI 87 ON ve YR 80 20 20 DE OX [address] IN 1 PH EP E AR HE 50 MA N CY A MC G OF TA BL CY ET NT HI AN A GALLAGHER 61 10 10 2 15 7 EA 24 MC Ac LF 31 -1 -[address] 51 KE ti AC 40 4- 4- 00 SI 01 AL ve ET 70 20 20 DE E AM 10 11 11 JR ID 1 PH E AR [place] 10 MA LL % CY IA EY M E OF F DR OP CY S NT HI AN A FU 63 09 10 3 30 30 EA 24 MC Ac RO 30 -1 -[address] 04 KE ti SE 40 2- 0- 00 SI 35 AL ve AL 62 20 20 DE E DE 51 11 11 JR 0 PH 40 AR WI MA LL MG CY IA M TA OF F BL ET CY NT HI AN A NE 00 09 10 2 30 30 EA 23 MC Ac XI 18 -0 -[address] 98 KE ti UM 65 6- 0- 00 SI 46 AL ve 04 [address] 03 11 11 JR 1 PH 40 AR [place] MA LL MG CY IA M CA OF F PS UL CY E NT HI AN A ZE 66 08 10 1 30 30 EA 23 BE Ac TI 58 -2 -[address] 77 SS ti A 20 3- 0- 00 SI 85 ON ve 10 41 20 20 DE [address] MG 1 PH EP AR HE TA MA N BL CY A ET OF CY NT HI AN A 00 10 10 0 12 30 EA 24 MC Ac 59 -0 -[address] 42 KE ti 10 7- 7- 00 SI 81 AL ve 54 20 20 0 DE E 00 11 11 JR 1 PH AR WI MA LL CY IA M OF F CY NT HI AN A CL 00 10 10 0 90 30 EA 24 BE Ac ON 09 -0 -[address] 38 SS ti AZ 30 5- 5- 00 SI 64 ON ve EP 83 20 20 DE AM [address] 1 PH EP 0. AR HE 5 MA N MG CY A TA OF BL ET CY NT HI AN A EX 00 08 09 2 30 30 EA 23 MC Ac FO 07 -1 -[address] 73 KE ti RG 80 9- 4- 00 SI 45 AL ve E 48 20 20 DE E 10 91 11 11 JR -1 5 PH 60 AR WI MA LL MG CY IA M TA OF F BL ET CY NT HI AN A SI 16 05 09 3 30 30 EA 22 MC Ac MV 71 -3 -[address] 74 KE ti 40 1- 4- 00 SI 35 AL ve TA 68 20 20 DE E TI 40 11 11 JR N 3 PH 40 AR WI MA LL MG CY IA M TA OF F BL ET CY NT HI AN A LE 00 07 09 5 30 30 EA 23 BE Ac VO 37 -1 -[address] 24 SS ti TH 81 1- 4- 00 SI 87 ON ve YR 80 20 20 DE OX [address] IN 1 PH EP E AR HE 50 MA N CY A MC G OF TA BL CY ET NT HI AN A FU 63 09 09 0 30 30 EA 24 BE Ac RO 30 -1 -[address] 04 SS ti SE 40 2- 2- 00 SI 16 ON ve AL 62 20 20 DE DE [address] 0 PH EP 40 AR HE MA N MG CY A TA OF BL ET CY NT HI AN A 00 05 09 2 30 30 EA 22 BE Ac 37 -0 -[address] 36 SS ti 81 3- 0- 00 SI 81 ON ve 08 20 20 DE [address] 1 PH EP AR HE MA N CY A OF CY NT HI AN A ZE 66 08 09 1 30 30 EA 23 BE Ac TI 58 -2 -[address] 77 SS ti A 20 3- 0- 00 SI 85 ON ve 10 41 20 20 DE [address] MG 1 PH EP AR HE TA MA N BL CY A ET OF CY NT HI AN A 00 09 09 0 12 30 EA 23 MC Ac 59 -0 -[address] 99 KE ti 10 7- 7- 00 SI 45 AL ve 54 20 20 0 DE E 00 11 11 JR 1 PH AR WI MA LL CY IA M OF F CY NT HI AN A CL 00 09 09 0 90 30 EA 23 MC Ac ON 09 -0 -[address] 98 KE ti AZ 30 6- 6- 00 SI 47 AL ve EP 83 20 20 DE E AM 20 11 11 JR 1 PH 0. AR WI 5 MA LL MG CY IA M TA OF F BL ET CY NT HI AN A NE 00 08 08 2 30 30 EA 23 MC Ac XI 18 -3 -[address] 89 KE ti UM 65 1- 1- 00 SI 75 AL ve 04 [address] 03 11 11 JR 1 PH 40 AR WI MA LL MG CY IA M CA OF F PS UL CY E NT HI AN A 65 08 08 3 10 25 EA 23 BE Ac 70 -2 -[address] 83 SS ti 20 6- 6- 00 SI 68 ON ve 10 20 20 0 DE [address] 0 PH EP AR HE MA N CY A OF CY NT HI AN A ME 00 08 08 1 30 30 EA 23 BE Ac TF 09 -2 -[address] 77 SS ti OR 31 3- 3- 00 SI 83 ON ve AL 04 20 20 DE N [address] HC 0 PH EP L AR HE 50 MA N 0 CY A MG OF TA BL CY ET NT HI AN A AC 65 08 08 0 1. 1 EA 23 BE Ac CU 70 -2 -[address] 78 SS ti -C 20 3- 3- 0 SI 49 ON ve HE 10 20 20 DE K [address] AV 0 PH EP IV AR HE A MA N PL CY A US OF ME TE CY R NT HI AN A EX 00 08 08 2 30 30 EA 23 MC Ac FO 07 -1 -[address] 73 KE ti RG 80 9- 9- 00 SI 45 AL ve E 48 20 20 DE E 10 91 11 11 JR -1 5 PH 60 AR WI MA LL MG CY IA M TA OF F BL ET CY NT HI AN A LE 00 07 08 5 30 30 EA 23 BE Ac VO 37 -1 -[address] 24 SS ti TH 81 1- 2- 00 SI 87 ON ve YR 80 20 20 DE OX [address] IN 1 PH EP E AR HE 50 MA N CY A MC G OF TA BL CY ET NT HI AN A FU 63 08 08 0 30 30 EA 23 BE Ac RO 30 -0 -[address] 56 SS ti SE 40 6- 6- 00 SI 13 ON ve AL 62 20 20 DE DE [address] 0 PH EP 40 AR HE MA N MG CY A TA OF BL ET CY NT HI AN A SI 16 05 08 3 30 30 EA 22 MC Ac MV 71 -3 -[address] 74 KE ti 40 1- 6- 00 SI 35 AL ve TA 68 20 20 DE E TI 40 11 11 JR N 3 PH 40 AR WI MA LL MG CY IA M TA OF F BL ET CY NT HI AN A CL 00 08 08 0 90 30 EA 23 MC Ac ON 09 -0 -[address] 54 KE ti AZ 30 5- 5- 00 SI 97 AL ve EP 83 20 20 DE E AM 20 11 11 JR 1 PH 0. AR WI 5 MA LL MG CY IA M TA OF F BL ET CY NT HI AN A ZE 66 06 08 3 30 30 EA 23 MC Ac TI 58 -2 -[address] 05 KE ti A 20 3- 2- 00 SI 21 AL ve 10 41 20 20 DE E 43 11 11 JR MG 1 PH AR WI TA MA LL BL CY IA ET M OF F CY NT HI AN A NE 00 05 08 2 30 30 EA 22 MC Ac XI 18 -2 -[address] 69 KE ti UM 65 5- 2- 00 SI 36 AL ve 04 [address] 03 11 11 JR 1 PH 40 AR WI MA LL MG CY IA M CA OF F PS UL CY E NT HI AN A 00 05 07 2 30 30 EA 22 BE Ac 37 -0 -[address] 36 SS ti 81 3- 0- 00 SI 81 ON ve 08 20 20 DE [address] 1 PH EP AR HE MA N CY A OF CY NT HI AN A EX 00 04 07 3 30 30 EA 22 MC Ac FO 07 -1 -[address] 06 KE ti RG 80 1- 6- 00 SI 11 AL ve E 48 20 20 DE E 10 91 11 11 JR -1 5 PH 60 AR [place] MA LL MG CY IA M TA OF F BL ET CY NT HI AN A ME 00 05 07 1 60 30 EA 22 BE Ac TF 09 -1 -[address] 56 SS ti OR 31 7- 1- 00 SI 55 ON ve AL 04 20 20 DE N [address] HC 0 PH EP L AR HE 50 MA N 0 CY A MG OF TA BL CY ET NT HI AN A LE 00 07 07 5 30 30 EA 23 BE Ac VO 37 -1 -[address] 24 SS ti TH 81 1- 1- 00 SI 87 ON ve YR 80 20 20 DE OX [address] IN 1 PH EP E AR HE 50 MA N CY A MC G OF TA BL CY ET NT HI AN A CL 00 07 07 0 90 30 EA 23 MC Ac ON 09 -0 -[address] 18 KE ti AZ 30 5- 5- 00 SI 75 AL ve EP 83 20 20 DE E AM 20 11 11 JR 1 PH 0. AR [place] 5 MA LL MG CY IA M TA OF F BL ET CY NT HI AN A FU 63 05 07 2 30 30 EA 22 BE Ac RO 30 -0 -[address] 36 SS ti SE 40 3- 4- 00 SI 75 ON ve AL 62 20 20 DE DE [address] 0 PH EP 40 AR HE MA N MG CY A TA OF BL ET CY NT HI AN A SI 16 05 07 3 30 30 EA 22 MC Ac MV 71 -3 -[address] 74 KE ti 40 1- 2- 00 SI 35 AL ve TA 68 20 20 DE E TI 40 11 11 JR N 3 PH 40 AR WI MA LL MG CY IA M TA OF F BL ET CY NT HI AN A NE 00 05 06 2 30 30 EA 22 MC Ac XI 18 -2 -[address] 69 KE ti UM 65 5- 5- 00 SI 36 AL ve 04 [address] 03 11 11 JR 1 PH 40 AR WI MA LL MG CY IA M CA OF F PS UL CY E NT HI AN A ZE 66 06 06 3 30 30 EA 23 MC Ac TI 58 -2 -[address] 05 KE ti A 20 3- 3- 00 SI 21 AL ve 10 41 20 20 DE E 43 11 11 JR MG 1 PH AR WI TA MA LL BL CY IA ET M OF F CY NT HI AN A GALLAGHER 53 06 06 0 20 10 EA 23 BE Ac LF 74 -2 -[address] 02 SS ti AM 60 1- 1- 00 SI 35 ON ve ET 27 20 20 DE HO [address] XA 5 PH EP ZO AR HE LE MA N -T CY A MP OF DS CY TA NT BL HI ET AN A MU 45 06 06 1 22 3 EA 23 BE Ac PI 80 -2 -[address] 02 SS ti RO 20 1- 00 SI 36 ON ve CI 11 20 20 DE N [address] 2% 2 PH EP AR HE OI MA N NT CY A ME NT OF CY NT HI AN A EX 00 04 06 3 30 30 EA 22 MC Ac FO 07 -1 -[address] 06 KE ti RG 80 1- 5- 00 SI 11 AL ve E 48 20 20 DE E 10 91 11 11 JR -1 5 PH 60 AR [place] MA LL MG CY IA M TA OF F BL ET CY NT HI AN A LE 00 04 06 2 30 30 EA 21 BE Ac VO 37 -0 -[address] 97 SS ti TH 81 4- 8- 00 SI 71 ON ve YR 80 20 20 DE OX [address] IN 1 PH EP E AR HE 50 MA N CY A MC G OF TA BL CY ET NT HI AN A 65 06 06 3 10 30 EA 22 BE Ac 70 -0 -[address] 83 SS ti 20 7- 7- 00 SI 76 ON ve 10 20 20 0 DE [address] 0 PH EP AR HE MA N CY A OF CY NT HI AN A CL 00 06 06 0 90 30 EA 22 MC Ac ON 09 -0 -[address] 83 KE ti AZ 30 7- 7- 00 SI 61 AL ve EP 83 20 20 DE E AM 20 11 11 JR 1 PH 0. AR [place] 5 MA LL MG CY IA M TA OF F BL ET CY NT HI AN A FU 63 05 06 2 30 30 EA 22 BE Ac RO 30 -0 -[address] 36 SS ti SE 40 3- 2- 00 SI 75 ON ve AL 62 20 20 DE DE [address] 0 PH EP 40 AR HE MA N MG CY A TA OF BL ET CY NT HI AN A SI 16 05 05 3 30 30 EA 22 MC Ac MV 71 -3 -[address] 74 KE ti 40 1- 1- 00 SI 35 AL ve TA 68 20 20 DE E TI 40 11 11 JR N 3 PH 40 AR WI MA LL MG CY IA M TA OF F BL ET CY NT HI AN A NE 00 05 05 2 30 30 EA 22 MC Ac XI 18 -2 -[address] 69 KE ti UM 65 5- 6- 00 SI 36 AL ve 04 [address] 03 11 11 JR 1 PH 40 AR [place] MA LL MG CY IA M CA OF F PS UL CY E NT HI AN A GALLAGHER 61 05 05 0 15 7 EA 22 BE Ac LF 31 -2 -[address] 68 SS ti AC 40 5- 5- 00 SI 76 ON ve ET 70 20 20 DE AM [address] ID 1 PH EP E AR HE 10 MA N % CY A EY E OF DR BUSCH CY S NT HI AN A ME 00 05 05 1 60 30 EA 22 BE Ac TF 09 -1 -[address] 56 SS ti OR 31 7- 7- 00 SI 55 ON ve AL 04 20 20 DE N [address] HC 0 PH EP L AR HE 50 MA N 0 CY A MG OF TA BL CY ET NT HI AN A EX 00 04 05 3 30 30 EA 22 MC Ac FO 07 -1 -[address] 06 KE ti RG 80 1- 6- 00 SI 11 AL ve E 48 20 20 DE E 10 91 11 11 JR -1 5 PH 60 AR [place] MA LL MG CY IA M TA OF F BL ET CY NT HI AN A LE 00 04 05 2 30 30 EA 21 BE Ac VO 37 -0 -[address] 97 SS ti TH 81 4- 0- 00 SI 71 ON ve YR 80 20 20 DE OX [address] IN 1 PH EP E AR HE 50 MA N CY A MC G OF TA BL CY ET NT HI AN A 00 05 05 0 12 30 EA 22 BE Ac 59 -0 -[address] 41 SS ti 10 6- 0- 00 SI 72 ON ve 54 20 20 0 DE [address] 1 PH EP AR HE MA N CY A OF CY NT HI AN A CL 00 05 05 0 90 30 EA 22 BE Ac ON 09 -0 -[address] 41 SS ti AZ 30 6- 6- 00 SI 73 ON ve EP 83 20 20 DE AM [address] 1 PH EP 0. AR HE 5 MA N MG CY A TA OF BL ET CY NT HI AN A 00 05 05 2 30 30 EA 22 BE Ac 37 -0 -[address] 36 SS ti 81 3- 3- 00 SI 81 ON ve 08 20 20 DE [address] 1 PH EP AR HE MA N CY A OF CY NT HI AN A FU 63 05 05 2 30 30 EA 22 BE Ac RO 30 -0 -[address] 36 SS ti SE 40 3- 3- 00 SI 75 ON ve AL 62 20 20 DE DE [address] 0 PH EP 40 AR HE MA N MG CY A TA OF BL ET CY NT HI AN A NE 00 02 04 2 30 30 EA 21 MC Ac XI 18 -2 -[address] 33 KE ti UM 65 1- 5- 00 SI 04 AL ve 04 [address] 03 11 11 JR 1 PH 40 AR [place] MA LL MG CY IA M CA OF F PS UL CY E NT HI AN A SI 16 02 04 2 30 30 EA 21 MC Ac MV 71 -1 -[address] 26 KE ti 40 6- 5- 00 SI 51 AL ve TA 68 20 20 DE E TI 40 11 11 JR N 3 PH 40 AR WI MA LL MG CY IA M TA OF F BL ET CY NT HI AN A EX 00 04 04 3 30 30 EA 22 MC Ac FO 07 -1 -[address] 06 KE ti RG 80 1- 1- 00 SI 11 AL ve E 48 20 20 DE E 10 91 11 11 JR -1 5 PH 60 AR [place] MA LL MG CY IA M TA OF F BL ET CY NT HI AN A 00 04 04 0 12 30 EA 22 MC Ac 59 -1 -[address] 05 KE ti 10 0- 0- 00 SI 59 AL ve 54 20 20 0 DE E 00 11 11 JR 1 PH AR WI MA LL CY IA M OF F CY NT HI AN A CL 00 04 04 0 90 30 EA 22 MC Ac ON 09 -0 -[address] 01 KE ti AZ 30 6- 6- 00 SI 40 AL ve EP 83 20 20 DE E AM 20 11 11 JR 1 PH 0. AR [place] 5 MA LL MG CY IA M TA OF F BL ET CY NT HI AN A HY 00 04 04 2 30 30 EA [address] 59 -0 -[address] 97 KE ti OC 10 4- 4- 00 SI 70 AL ve HL 34 20 20 DE E OR 70 11 11 JR OT 1 PH HI AR WI [place] MA LL ID CY IA E M 12 OF F .5 CY MG NT HI CP AN A LE 00 04 04 2 30 30 EA 21 BE Ac VO 37 -0 -[address] 97 SS ti TH 81 4- 4- 00 SI 71 ON ve YR 80 20 20 DE OX [address] IN 1 PH EP E AR HE 50 MA N CY A MC G OF TA BL CY ET NT HI AN A ME 16 03 03 5 10 25 EA 21 SC Ac TO 71 -3 -[address] 92 HU ti CL 40 1- 1- 00 SI 49 LS ve OP 06 20 20 0 DE TA RA 10 11 11 D AL 5 PH CA DE AR MP 5 MA BE CY LL MG K OF TA BL CY ET NT HI AN A SI 16 02 03 2 30 30 EA 21 MC Ac MV 71 -1 -[address] 26 KE ti 40 6- 2- 00 SI 51 AL ve TA 68 20 20 DE E TI 40 11 11 JR N 3 PH 40 AR WI MA LL MG CY IA M TA OF F BL ET CY NT HI AN A NE 00 02 03 2 30 30 EA 21 MC Ac XI 18 -2 -[address] 33 KE ti UM 65 1- 2- 00 SI 04 AL ve 04 [address] 03 11 11 JR 1 PH 40 AR [place] MA LL MG CY IA M CA OF F PS UL CY E NT HI AN A 00 03 03 0 12 30 EA 21 BE Ac 59 -1 -[address] 66 SS ti 10 2- 2- 00 SI 61 ON ve 54 20 20 0 DE [address] 1 PH EP AR HE MA N CY A OF CY NT HI AN A EX 00 12 03 3 30 30 EA 20 MC Ac FO 07 -0 -[address] 24 KE ti RG 80 3- 9- 00 SI 32 AL ve E 48 20 20 DE E 10 91 10 11 JR -1 5 PH 60 AR WI MA LL MG CY IA M TA OF F BL ET CY NT HI AN A KS 00 01 03 2 20 5 EA 20 MC Ac OM 78 -1 -[address] 84 KE ti ET 11 7- 9 SI 38 AL ve NG 83 20 20 DE E ZI 01 11 11 JR NE 0 PH AR WI 25 MA LL CY IA MG M OF F TA BL CY ET NT HI AN A CL 00 03 03 0 90 30 EA 21 MC Ac ON 09 -0 -[address] 58 KE ti AZ 30 7- 7 SI 91 AL ve EP 83 20 20 DE E AM 20 11 11 JR 1 PH 0. AR WI 5 MA LL MG CY IA M TA OF F BL ET CY NT HI AN A HY 00 12 03 2 30 30 EA [address] 59 -2 -[address] 58 KE ti OC 10 9 4 SI 00 AL ve HL 34 20 20 DE E OR 70 10 11 JR OT 1 PH HI AR WI [place] MA LL ID CY IA E M 12 OF F .5 CY MG NT HI CP AN A LE 00 03 03 0 30 30 EA 21 BE Ac VO 37 -0 -[address] 53 SS ti TH 81 4- 4 SI 81 ON ve YR 80 20 20 DE OX [address] IN 1 PH EP E AR HE 50 MA N CY A MC G OF TA BL CY ET NT HI AN A NE 00 02 02 2 30 30 EA 21 MC Ac XI 18 -2 -[address] 33 KE ti UM 65 1- - SI 04 AL ve 04 [address] 03 11 11 JR 1 PH 40 AR [place] MA LL MG CY IA M CA OF F PS UL CY E NT HI AN A FL 00 01 02 1 7. 7 EA 20 MC Ac UC 17 -1 -[address] 81 KE ti ON 25 5- 6- 0 SI 97 AL ve AZ 41 20 20 DE E OL 14 11 11 JR E 6 PH 10 AR WI 0 MA LL MG CY IA M TA OF F BL ET CY NT HI AN A SI 16 02 02 2 30 30 EA 21 MC Ac MV 71 -1 -[address] 26 KE ti 40 6- 6- 00 SI 51 AL ve TA 68 20 20 DE E TI 40 11 11 JR N 3 PH 40 AR WI MA LL MG CY IA M TA OF F BL ET CY NT HI AN A [place] 00 01 02 1 60 4 EA [address] 16 -1 -[address] 84 KE ti AT 80 7- 5- 00 SI 39 AL ve IN 08 20 20 DE E -T 16 11 11 JR RI 0 PH AM AR WI CI MA LL NO CY IA LO M NE OF F CR CY EA NT M HI AN A 00 02 02 0 12 30 EA 21 MC Ac 59 -1 -[address] 20 KE ti 10 1- 1- 00 SI 16 AL ve 54 20 20 0 DE E 00 11 11 JR 1 PH AR WI MA LL CY IA M OF F CY NT HI AN A CL 00 12 02 2 90 30 EA 20 MC Ac ON 09 -0 -[address] 32 KE ti AZ 30 9- 7- 00 SI 83 AL ve EP 83 20 20 DE E AM 20 10 11 JR 1 PH 0. AR WI 5 MA LL MG CY IA M TA OF F BL ET CY NT HI AN A EX 00 12 02 3 30 30 EA 20 MC Ac FO 07 -0 -[address] 24 KE ti RG 80 3- 5- 00 SI 32 AL ve E 48 20 20 DE E 10 91 10 11 JR -1 5 PH 60 AR WI MA LL MG CY IA M TA OF F BL ET CY NT HI AN A HY 00 12 01 2 30 30 EA [address] 59 -2 -[address] 58 KE ti OC 10 9- 0- 00 SI 00 AL ve HL 34 20 20 DE E OR 70 10 11 JR OT 1 PH HI AR [place] MA LL ID CY IA E M 12 OF F .5 CY MG NT HI CP AN A LE 00 01 01 0 30 30 EA 21 BE Ac VO 37 -3 -[address] 01 SS ti TH 81 0- 0- 00 SI 20 ON ve YR 80 20 20 DE OX [address] IN 1 PH EP E AR HE 50 MA N CY A MC G OF TA BL CY ET NT HI AN A NE 00 10 01 3 30 30 EA 19 MC Ac XI 18 -1 -[address] 59 KE ti UM 65 8- 0- 00 SI 05 AL ve 04 [address] 03 10 11 JR 1 PH 40 AR WI MA LL MG CY IA M CA OF F PS UL CY E NT HI AN A KS 00 01 01 2 20 5 EA 20 MC Ac OM 78 -1 -[address] 84 KE ti ET 11 7- 7- 00 SI 38 AL ve NG 83 20 20 DE E ZI 01 11 11 JR NE 0 PH AR WI 25 MA LL CY IA MG M OF F TA BL CY ET NT HI AN A [place] 00 01 01 1 60 4 EA [address] 16 -1 -[address] 84 KE ti AT 80 7- 7- 00 SI 39 AL ve IN 08 20 20 DE E -T 16 11 11 JR RI 0 PH AM AR WI CI MA LL NO CY IA LO M NE OF F CR CY EA NT M HI AN A 00 01 01 0 30 15 EA 20 Ac 14 - -[address] 81 KE ti 31 5- 5- 00 SI 98 AL ve 47 20 20 DE E 70 11 11 JR 5 PH AR WI MA LL CY IA M OF F CY NT HI AN A FL 00 01 01 1 7. 7 EA 20 MC UC 17 -1 -[address] 81 KE ti ON 25 5- 5- 0 SI 97 AL ve AZ 41 20 20 DE E OL 14 11 11 JR E 6 PH 10 AR WI 0 MA LL MG CY IA M TA OF F BL ET CY NT HI AN A SI 16 12 01 1 30 30 EA 20 MC MV 71 -1 -[address] 42 KE ti 40 6- 5- 00 SI 49 AL ve TA 68 20 20 DE E TI 40 10 11 JR N 3 PH 40 AR WI MA LL MG CY IA M TA OF F BL ET CY NT HI AN A MU 00 01 01 0 22 4 EA 20 [facility] PI -[address] 81 KE ti RO 31 4- 4- 00 SI 11 AL ve CI 01 20 20 DE E N 04 11 11 JR 2% 2 PH AR WI OI MA LL NT CY IA ME M NT OF F CY NT HI AN A CE 00 01 01 0 28 7 EA 20 BE Ac PH -[address] 77 SS ti AL 33 1- 1- 00 SI 05 ON ve EX 14 20 20 DE IN [address] 5 PH EP 50 AR HE 0 MA N MG CY A CA OF PS UL CY E NT HI AN A MU 00 01 01 0 22 4 EA 20 MC PI -[address] 76 KE ti RO 31 0- 0- 00 SI 00 AL ve CI 01 20 20 DE E N 04 11 11 JR 2% 2 PH AR WI OI MA LL NT CY IA ME M NT OF F CY NT HI AN A GALLAGHER 53 01 01 0 20 10 EA 20 MC Ac LF 74 -1 -[address] 75 KE ti AM 60 0- 0- 00 SI 99 AL ve ET 27 20 20 DE E HO 20 11 11 JR XA 5 PH ZO AR WI LE MA LL -T CY IA MP M OF F DS CY TA NT BL HI ET AN A CL 00 12 01 2 90 30 EA 20 MC Ac ON 09 -0 -[address] 32 KE ti AZ 30 SI 83 AL ve EP 83 20 20 DE E AM 20 10 11 JR 1 PH 0. AR WI 5 MA LL MG CY IA M TA OF F BL ET CY NT HI AN A EX 00 12 01 3 30 30 EA 20 MC Ac FO 07 -0 -[address] 24 KE ti RG 80 3 4 SI 32 AL ve E 48 20 20 DE E 10 91 10 11 JR -1 5 PH 60 AR [place] MA LL MG CY IA M TA OF F BL ET CY NT HI AN A HY 00 12 12 2 30 30 EA [address] 59 -2 -[address] 58 KE ti OC 10 SI 00 AL ve HL 34 20 20 DE E OR 70 10 10 JR OT 1 PH HI AR WI [place] MA LL ID CY IA E M 12 OF F .5 CY MG NT HI CP AN A LE 00 11 12 1 30 30 EA 20 BE Ac VO 37 -2 -[address] 16 SS ti TH 81 SI 83 ON ve YR 80 20 20 DE OX [address] IN 1 PH EP E AR HE 50 MA N CY A MC G OF TA BL CY ET NT HI AN A NE 00 10 12 3 30 30 EA 19 MC Ac XI 18 -1 -[address] 59 KE ti UM 65 8- 0- 00 SI 05 AL ve 04 [address] 03 10 10 JR 1 PH 40 AR [place] MA LL MG CY IA M CA OF F PS UL CY E NT HI AN A SI 16 12 12 1 30 30 EA 20 MC Ac MV 71 -1 -[address] 42 KE ti 40 6 6 SI 49 AL ve TA 68 20 20 DE E TI 40 10 10 JR N 3 PH 40 AR [place] MA LL MG CY IA M TA OF F BL ET CY NT HI AN A CL 00 12 12 2 90 30 EA 20 MC Ac ON 09 -0 -[address] 32 KE ti AZ 30 SI 83 AL ve EP 83 20 20 DE E AM 20 10 10 JR 1 PH 0. AR WI 5 MA LL MG CY IA M TA OF F BL ET CY NT HI AN A EX 00 12 12 3 30 30 EA 20 MC Ac FO 07 -0 -[address] 24 KE ti RG 80 3- 3 00 SI 32 AL ve E 48 20 20 DE E 10 91 10 10 JR -1 5 PH 60 AR WI MA LL MG CY IA M TA OF F BL ET CY NT HI AN A HY 00 09 11 2 30 30 EA [address] 59 -2 -[address] 23 KE ti OC 10 SI 17 AL ve HL 34 20 20 DE E OR 70 10 10 JR OT 1 PH HI AR WI [place] MA LL ID CY IA E M 12 OF F .5 CY MG NT HI CP AN A LE 00 11 11 1 30 30 EA 20 BE Ac VO 37 -2 -[address] 16 SS ti TH 81 SI 83 ON ve YR 80 20 20 DE OX [address] IN 1 PH EP E AR HE 50 MA N CY A MC G OF TA BL CY ET NT HI AN A NE 00 10 11 3 30 30 EA 19 MC Ac XI 18 -1 -[address] 59 KE ti UM 65 8- 0- 00 SI 05 AL ve 04 [address] 03 10 10 JR 1 PH 40 AR [place] MA LL MG CY IA M CA OF F PS UL CY E NT HI AN A SI 16 08 11 3 30 30 EA 18 MC Ac MV 71 -0 -[address] 64 KE ti 40 9- SI 89 AL ve TA 68 20 20 DE E TI 40 10 10 JR N 3 PH 40 AR WI MA LL MG CY IA M TA OF F BL ET CY NT HI AN A CL 00 11 11 0 90 30 EA 19 MC Ac ON 09 -0 -[address] 88 KE ti AZ 30 8 8 00 SI 62 AL ve EP 83 20 20 DE E AM 20 10 10 JR 1 PH 0. AR WI 5 MA LL MG CY IA M TA OF F BL ET CY NT HI AN A EX 00 05 11 5 30 30 EA 17 MC Ac FO 07 -2 -[address] 70 KE ti RG 80 2 3 00 SI 24 AL ve E 48 20 20 DE E 10 91 10 10 JR -1 5 PH 60 AR WI MA LL MG CY IA M TA OF F BL ET CY NT HI AN A HY 00 09 10 2 30 30 EA [address] 59 -2 -[address] 23 KE ti OC 10 1- 3 SI 17 AL ve HL 34 20 20 DE E OR 70 10 10 JR OT 1 PH HI AR [place] MA LL ID CY IA E M 12 OF F .5 CY MG NT HI CP AN A LE 00 08 10 2 30 30 EA 18 Ac VO 37 -1 -[address] 75 KE ti TH 81 8- 3 00 SI 58 AL ve YR 80 20 20 DE E OX 30 10 10 JR IN 1 PH E AR WI 50 MA LL CY IA MC M G OF F TA BL CY ET NT HI AN A NE 00 10 10 3 30 30 EA 19 Ac XI 18 -1 -[address] 59 KE ti UM 65 8 8 SI 05 AL ve 04 [address] 03 10 10 JR 1 PH 40 AR [place] MA LL MG CY IA M CA OF F PS UL CY E NT HI AN A SI 16 08 10 3 30 30 EA 18 Ac MV 71 -0 -[address] 64 KE ti 40 9 5 SI 89 AL ve TA 68 20 20 DE E TI 40 10 10 JR N 3 PH 40 AR [place] MA LL MG CY IA M TA OF F BL ET CY NT HI AN A 00 10 10 0 12 30 EA 19 Ac 59 -1 -[address] 53 KE ti 10 3 3 SI 11 AL ve 54 20 20 0 DE E 00 10 10 JR 1 PH AR WI MA LL CY IA M OF F CY NT HI AN A CL 00 10 10 0 90 30 EA 19 Ac ON 09 -0 -[address] 46 KE ti AZ 30 8 8 SI 44 AL ve EP 83 20 20 DE E AM 20 10 10 JR 1 PH 0. AR WI 5 MA LL MG CY IA M TA OF F BL ET CY NT HI AN A EX 00 05 10 5 30 30 EA 17 MC Ac FO 07 -2 -[address] 70 KE ti RG 80 2- 2- 00 SI 24 AL ve E 48 20 20 DE E 10 91 10 10 JR -1 5 PH 60 AR [place] MA LL MG CY IA M TA OF F BL ET CY NT HI AN A GALLAGHER 53 09 09 0 20 10 EA 19 Ac LF 74 -2 -[address] 28 KE ti AM 60 4- 4- 00 SI 32 AL ve ET 27 20 20 DE E HO 20 10 10 JR XA 5 PH ZO AR WI LE MA LL -T CY IA MP M OF F DS CY TA NT BL HI ET AN A LE 00 08 09 2 30 30 EA 18 Ac VO 37 -1 -[address] 75 KE ti TH 81 8- 1- 00 SI 58 AL ve YR 80 20 20 DE E OX 30 10 10 JR IN 1 PH E AR WI 50 MA LL CY IA MC M G OF F TA BL CY ET NT HI AN A HY 00 09 09 2 [address] 59 -2 -[address] 23 KE ti OC 10 1- 1- 00 SI 17 AL ve HL 34 20 20 DE E OR 70 10 10 JR OT 1 PH HI AR [place] MA LL ID CY IA E M 12 OF F .5 CY MG NT HI CP AN A SI 16 08 09 3 30 30 EA 18 Ac MV 71 -0 -[address] 64 KE ti 40 9- 4- 00 SI 89 AL ve TA 68 20 20 DE E TI 40 10 10 JR N 3 PH 40 AR [place] MA LL MG CY IA M TA OF F BL ET CY NT HI AN A 00 09 09 0 12 30 EA 19 Ac 59 -1 -[address] 10 KE ti 10 3- 3- 00 SI 99 AL ve 54 20 20 0 DE E 00 10 10 JR 1 PH AR WI MA LL CY IA M OF F CY NT HI AN A CL 00 09 09 0 90 30 EA 19 Ac ON 09 -0 -[address] 04 KE ti AZ 30 8- 8- 00 SI 54 AL ve EP 83 20 20 DE E AM 20 10 10 JR 1 PH 0. AR WI 5 MA LL MG CY IA M TA OF F BL ET CY NT HI AN A EX 00 05 09 5 30 30 EA 17 Ac FO 07 -2 -[address] 70 KE ti RG 80 2- 1- 00 SI 24 AL ve E 48 20 20 DE E 10 91 10 10 JR -1 5 PH 60 AR [place] MA LL MG CY IA M TA OF F BL ET CY NT HI AN A TO 61 08 08 0 5. 7 EA 18 BE Ac BR 31 -2 -[address] 89 SS ti AM 40 8- 8- 0 SI 98 ON ve YC 64 20 20 DE IN [address] -D 5 PH EP EX AR HE AM MA N ET CY A H OP OF HT H CY GALLAGHER NT SP HI AN A HY 00 05 08 3 30 30 EA [address] 59 -0 -[address] 50 KE ti OC 10 SI 77 AL ve HL 34 20 20 DE E OR 70 10 10 JR OT 1 PH HI AR [place] MA LL ID CY IA E M 12 OF F .5 CY MG NT HI CP AN A LE 00 08 08 2 30 30 EA 18 MC Ac VO 37 -1 -[address] 75 KE ti TH 81 SI 58 AL ve YR 80 20 20 DE E OX 30 10 10 JR IN 1 PH E [place] 50 MA LL CY IA MC M G OF F TA BL CY ET NT HI AN A 00 08 08 0 12 30 EA 18 MC Ac 59 -1 -[address] 71 KE ti 10 SI 12 AL ve 54 20 20 0 DE E 00 10 10 JR 1 PH AR WI MA LL CY IA M OF F CY NT HI AN A CL 00 08 08 0 90 30 EA 18 Ac ON 09 -0 -[address] 64 KE ti AZ 30 SI 45 AL ve EP 83 20 20 DE E AM 20 10 10 JR 1 PH 0. AR [place] 5 MA LL MG CY IA M TA OF F BL ET CY NT HI AN A NE 00 08 08 3 60 30 EA 18 MC Ac XI 18 -0 -[address] 64 KE ti UM 65 SI 88 AL ve 04 [address] 03 10 10 JR 1 PH 40 AR [place] MA LL MG CY IA M CA OF F PS UL CY E NT HI AN A SI 16 08 08 3 30 30 EA 18 MC Ac MV 71 -0 -[address] 64 KE ti 40 SI 89 AL ve TA 68 20 20 DE E TI 40 10 10 JR N 3 PH 40 AR [place] MA LL MG CY IA M TA OF F BL ET CY NT HI AN A EX 00 05 07 5 30 30 EA 17 MC Ac FO 07 -2 -[address] 70 KE ti RG 80 SI 24 AL ve E 48 20 20 DE E 10 91 10 10 JR -1 5 PH 60 AR [place] MA LL MG CY IA M TA OF F BL ET CY NT HI AN A LE 00 04 07 3 30 30 EA 17 MC Ac VO 37 -0 -[address] 10 KE ti TH 81 7- 0- 00 SI 12 AL ve YR 80 20 20 DE E OX 30 10 10 JR IN 1 PH E AR [place] 50 MA LL CY IA MC M G OF F TA BL CY ET NT HI AN A HY 00 05 07 3 30 30 EA [address] 59 -0 -[address] 50 KE ti OC 10 7- 0- 00 SI 77 AL ve HL 34 20 20 DE E OR 70 10 10 JR OT 1 PH HI AR [place] MA LL ID CY IA E M 12 OF F .5 CY MG NT HI CP AN A CL 00 07 07 0 90 30 EA 18 MC Ac ON 09 -0 -[address] 26 KE ti AZ 30 8- 8- 00 SI 89 AL ve EP 83 20 20 DE E AM 20 10 10 JR 1 PH 0. AR WI 5 MA LL MG CY IA M TA OF F BL ET CY NT HI AN A CE 00 07 07 0 21 7 EA 18 AL Ac PH 09 -0 -[address] 26 LR ti AL 33 8- 8- 00 SI 99 AN ve EX 14 20 20 DE IN 70 10 10 JR 5 PH 50 AR CH 0 MA AR MG CY LE S CA OF F PS UL CY E NT HI AN A NE 00 03 07 3 30 30 EA 16 Ac XI 18 -1 -[address] 82 KE ti UM 65 7- 3- 00 SI 12 AL ve 04 [address] 03 10 10 JR 1 PH 40 AR WI MA LL MG CY IA M CA OF F PS UL CY E NT HI AN A SI 16 02 07 4 30 30 EA 16 Ac MV 72 -1 -[address] 35 KE ti 90 2- 3- 00 SI 46 AL ve TA 00 20 20 DE E TI 61 10 10 JR N 7 PH 40 AR WI MA LL MG CY IA M TA OF F BL ET CY NT HI AN A EX 00 05 06 5 30 30 EA 17 MC Ac FO 07 -2 -[address] 70 KE ti RG 80 2- 7- 00 SI 24 AL ve E 48 20 20 DE E 10 91 10 10 JR -1 5 PH 60 AR WI MA LL MG CY IA M TA OF F BL ET CY NT HI AN A 00 06 06 0 12 30 EA 17 MC Ac 59 -1 -[address] 97 KE ti 10 4- 4- 00 SI 41 AL ve 54 20 20 0 DE E 00 10 10 JR 1 PH AR WI MA LL CY IA M OF F CY NT HI AN A LE 00 04 06 3 30 30 EA 17 Ac VO 37 -0 -[address] 10 KE ti TH 81 SI 12 AL ve YR 80 20 20 DE E OX 30 10 10 JR IN 1 PH E AR [place] 50 MA LL CY IA MC M G OF F TA BL CY ET NT HI AN A HY 00 05 06 3 30 [address] 59 -0 -[address] 50 KE ti OC 10 SI 77 AL ve HL 34 20 20 DE E OR 70 10 10 JR OT 1 PH HI AR WI [place] MA LL ID CY IA E M 12 OF F .5 CY MG NT HI CP AN A 00 06 06 0 24 3 EA 17 AL Ac 59 -0 -[address] 91 LR ti 10 SI 70 AN ve 54 20 20 DE 00 10 10 JR 1 PH AR CH MA AR CY LE S OF F CY NT HI AN A CL 00 06 06 0 90 30 EA 17 Ac ON 09 -0 -[address] 87 KE ti AZ 30 SI 85 AL ve EP 83 20 20 DE E AM 20 10 10 JR 1 PH 0. AR WI 5 MA LL MG CY IA M TA OF F BL ET CY NT HI AN A SI 65 02 05 3 30 30 EA 16 Ac MV 86 -1 -[address] 35 KE ti 20 SI 46 AL ve TA 05 20 20 DE E TI 33 10 10 JR N 0 PH 40 AR WI MA LL MG CY IA M TA OF F BL ET CY NT HI AN A NE 00 03 05 3 30 30 EA 16 Ac XI 18 -1 -[address] 82 KE ti UM 65 SI 12 AL ve 04 [address] 03 10 10 JR 1 PH 40 AR WI MA LL MG CY IA M CA OF F PS UL CY E NT HI AN A EX 00 05 05 5 30 30 EA 17 Ac FO 07 -2 -[address] 70 KE ti RG 80 SI 24 AL ve E 48 20 20 DE E 10 91 10 10 JR -1 5 PH 60 AR WI MA LL MG CY IA M TA OF F BL ET CY NT HI AN A 00 05 05 0 12 30 EA 17 Ac 59 -1 -[address] 61 KE ti 10 5- 5- 00 SI 05 AL ve 54 20 20 0 DE E 00 10 10 JR 1 PH AR WI MA LL CY IA M OF F CY NT HI AN A LE 00 04 05 3 30 30 EA 17 Ac VO 37 -0 -[address] 10 KE ti TH 81 7- 7 00 SI 12 AL ve YR 80 20 20 DE E OX 30 10 10 JR IN 1 PH E AR [place] 50 MA LL CY IA MC M G OF F TA BL CY ET NT HI AN A HY 00 05 05 3 30 [address] 59 -0 -[address] 50 KE ti OC 10 7- 7- 00 SI 77 AL ve HL 34 20 20 DE E OR 70 10 10 JR OT 1 PH HI AR WI [place] MA LL ID CY IA E M 12 OF F .5 CY MG NT HI CP AN A CL 00 05 05 0 90 30 EA 17 [facility] ON 09 -0 -[address] 48 KE ti AZ 30 6 6 SI 98 AL ve EP 83 20 20 DE E AM 20 10 10 JR 1 PH 0. AR WI 5 MA LL MG CY IA M TA OF F BL ET CY NT HI AN A SI 65 02 04 3 30 30 EA 16 Ac MV 86 -1 -[address] 35 KE ti 20 2 3- 00 SI 46 AL ve TA 05 20 20 DE E TI 33 10 10 JR N 0 PH 40 AR [place] MA LL MG CY IA M TA OF F BL ET CY NT HI AN A NE 00 03 04 3 30 30 EA 16 Ac XI 18 -1 -[address] 82 KE ti UM 65 7- 3- 00 SI 12 AL ve [address] 03 10 10 JR 1 PH 40 [place] MA LL MG CY IA M CA OF F PS UL CY E NT HI AN A 00 04 04 0 12 30 EA 17 Ac 59 -1 -[address] 20 KE ti 10 5- 5- 00 SI 16 AL ve 54 20 20 0 DE E 00 10 10 JR 1 PH [place] MA LL CY IA M OF F CY NT HI AN A CL 00 04 04 0 60 30 EA 17 Ac ON 09 -1 -[address] 20 KE ti AZ 30 5- 5- 00 SI 17 AL ve EP 83 20 20 DE E AM 20 10 10 JR 1 PH 0. [place] 5 MA LL MG CY IA M TA OF F BL ET CY NT HI AN A HY 00 01 04 3 30 30 EA [address] 59 -0 -[address] 81 KE ti OC 10 4- 7- 00 SI 52 AL ve HL 34 20 20 DE E OR 70 10 10 JR OT 1 PH HI [place] MA LL ID CY IA E M 12 OF F .5 CY MG NT HI CP AN A LE 00 04 04 3 30 30 EA 17 MC Ac VO 37 -0 -[address] 10 KE ti TH 81 7 7 SI 12 AL ve YR 80 20 20 DE E OX 30 10 10 JR IN 1 PH E [place] 50 MA LL CY IA MC M G OF F TA BL CY ET NT HI AN A SI 65 02 03 3 30 30 EA 16 MC Ac MV 86 -1 -[address] 35 KE ti 20 2 7 SI 46 AL ve TA 05 20 20 DE E TI 33 10 10 JR N 0 PH 40 [place] MA LL MG CY IA M TA OF F BL ET CY NT HI AN A CL 00 03 03 0 60 30 EA 16 MC Ac ON 09 1 -[address] 81 KE ti AZ 30 7 7 SI 84 AL ve EP 83 20 20 DE E AM 20 10 10 JR 1 PH 0. [place] 5 MA LL MG CY IA M TA OF F BL ET CY NT HI AN A NE 00 03 03 3 30 30 EA 16 MC Ac XI 18 -1 -[address] 82 KE ti UM 65 7 7 SI 12 AL ve 04 [address] 03 10 10 JR 1 PH 40 [place] MA LL MG CY IA M CA OF F PS UL CY E NT HI AN A 00 03 03 0 12 30 EA 16 MC Ac 59 -1 -[address] 81 KE ti 10 7- 7 00 SI 83 AL ve 54 20 20 0 DE E 00 10 10 JR 1 PH [place] MA LL CY IA M OF F CY NT HI AN A LE 00 12 03 3 30 30 EA 15 MC Ac VO 37 -0 -[address] 38 KE ti TH 81 2 8- 00 SI 79 AL ve YR 80 20 20 DE E OX 30 09 10 JR IN 1 PH E [place] 50 MA LL CY IA MC M G OF F TA BL CY ET NT HI AN A HY 00 01 03 3 30 30 EA [address] 59 -0 -[address] 81 KE ti OC 10 4- 8- 00 SI 52 AL ve HL 34 20 20 DE E OR 70 10 10 JR OT 1 PH HI [place] MA LL ID CY IA E M 12 OF F .5 CY MG NT HI CP AN A CL 00 02 00 60 30 EA 16 MC Ac ON 09 -1 -[address] 37 KE ti AZ 30 SI 94 AL ve EP 83 20 20 DE E AM 20 10 10 JR 1 PH 0. [place] 5 MA LL MG CY IA M TA OF F BL CY ET NT HI AN A 00 12 30 00 12 30 EA 16 MC Ac 59 -1 -[address] 37 KE ti 10 SI 95 AL ve 54 20 20 0 DE E 00 10 10 JR 1 PH [place] MA LL CY IA M OF F CY NT HI AN A SI 65 02 02 00 30 30 EA 16 MC Ac MV 86 -1 -[address] 35 KE ti 20 SI 46 AL ve TA 05 20 20 DE E TI 33 10 10 JR N 0 PH 40 [place] MA LL MG CY IA M TA OF F BL CY ET NT HI AN A NE 00 08 02 05 30 30 EA 14 MC Ac XI 18 -3 -[address] 06 KE ti UM 65 SI 00 AL ve 04 [address] 03 09 10 JR 1 PH 40 [place] MA LL MG CY IA M CA OF F PS CY UL NT E HI AN A LE 00 12 12 30 30 30 EA 15 MC Ac VO 37 -0 -[address] 38 KE ti TH 81 SI 79 AL ve YR 80 20 20 DE E OX 30 09 10 JR IN 1 PH E [place] 50 MA LL CY IA MC M G OF F TA CY BL NT ET HI AN A HY 00 02 30 30 EA [address] 59 -0 -[address] 81 KE ti OC 10 SI 52 AL ve HL 34 20 20 DE E OR 70 10 10 JR OT 1 PH HI [place] MA LL ID CY IA E M 12 OF F .5 CY NT MG HI AN CP A 00 11 28 00 12 30 EA 15 MC Ac 59 -1 -[address] 95 KE ti 10 SI 82 AL ve 54 20 20 0 DE E 00 10 10 JR 1 PH [place] MA LL CY IA M OF F CY NT HI AN A SI 65 09 01 03 30 30 EA 14 MC Ac MV 86 -3 -[address] 49 KE ti 20 0- 8- 00 SI 48 AL ve TA 05 20 20 DE E TI 33 09 10 JR N 0 PH 40 [place] MA LL MG CY IA M TA OF F BL CY ET NT HI AN A CL 00 01 01 00 60 30 EA 15 MC Ac ON 09 -1 -[address] 95 KE ti AZ 30 4- 8- 00 SI 83 AL ve EP 83 20 20 DE E AM 20 10 10 JR 1 PH 0. [place] 5 MA LL MG CY IA M TA OF F BL CY ET NT HI AN A HY 00 01 01 00 30 30 EA [address] 59 -0 -[address] 81 KE ti OC 10 4- 4 SI 52 AL ve HL 34 20 20 DE E OR 70 10 10 JR OT 1 PH HI [place] MA LL ID CY IA E M 12 OF F .5 CY NT MG HI AN CP A NE 00 08 01 04 30 30 EA 14 MC Ac XI 18 -3 -[address] 06 KE ti UM 65 1- 4- 00 SI 00 AL ve 04 [address] 03 09 10 JR 1 PH 40 [place] MA LL MG CY IA M CA OF F PS CY UL NT E HI AN A LE 00 12 01 01 30 30 EA 15 MC Ac VO 37 -0 -[address] 38 KE ti TH 81 2- 4- 00 SI 79 AL ve YR 80 20 20 DE E OX 30 09 10 JR IN 1 PH E [place] 50 MA LL CY IA MC M G OF F TA CY BL NT ET HI AN A CL 00 12 12 00 60 30 EA 15 MC Ac ON 09 -1 -[address] 56 KE ti AZ 30 4- 1- SI 09 AL ve EP 83 20 20 DE E AM 20 09 09 JR 1 PH 0. [place] 5 MA LL MG CY IA M TA OF F BL CY ET NT HI AN A 00 12 12 00 12 30 EA 15 MC Ac 59 -1 -[address] 56 KE ti 10 4- 1- 00 SI 08 AL ve 54 20 20 0 DE E 00 09 09 JR 1 PH [place] MA LL CY IA M OF F CY NT HI AN A SI 65 09 12 02 30 30 EA 14 MC Ac MV 86 -3 -[address] 49 KE ti 20 0- 7- 00 SI 48 AL ve TA 05 20 20 DE E TI 33 09 09 JR N 0 PH 40 [place] MA LL MG CY IA M TA OF F BL CY ET NT HI AN A LE 00 12 12 00 30 30 EA 15 MC Ac VO 37 -0 -[address] 38 KE ti TH 81 2- 7- 00 SI 79 AL ve YR 80 20 20 DE E OX 30 09 09 JR IN 1 PH E [place] 50 MA LL CY IA MC M G OF F TA CY BL NT ET HI AN A NE 00 08 12 03 30 30 EA 14 MC Ac XI 18 -3 -[address] 06 KE ti UM 65 1- 7- 00 SI 00 AL ve 04 [address] 09 09 JR 1 PH 40 [place] MA LL MG CY IA M CA OF F PS CY UL NT E HI AN A HY 00 07 12 04 30 30 EA [address] 59 -1 -[address] 47 KE ti OC 10 4 7 SI 77 AL ve HL 34 20 20 DE E OR 70 09 09 JR OT 1 PH HI [place] MA LL ID CY IA E M 12 OF F .5 CY NT MG HI AN CP A CL 00 11 12 00 60 30 EA 15 MC Ac ON 09 -1 -[address] 13 KE ti AZ 30 4 3- 00 SI 29 AL ve EP 83 20 20 DE E AM 20 09 09 JR 1 PH 0. [place] 5 MA LL MG CY IA M TA OF F BL CY ET NT HI AN A NE 00 08 11 02 30 30 EA 14 MC Ac XI 18 -3 -[address] 06 KE ti UM 65 9 00 SI 00 AL ve 04 [address] 03 09 09 JR 1 PH 40 [place] MA LL MG CY IA M CA OF F PS CY UL NT E HI AN A LE 00 07 11 03 30 30 EA 13 MC Ac VO 37 -2 -[address] 63 KE ti TH 81 7 9 SI 09 AL ve YR 80 20 20 DE E OX 30 09 09 JR IN 1 PH E [place] 50 MA LL CY IA MC M G OF F TA CY BL NT ET HI AN A SI 65 09 11 01 30 30 EA 14 MC Ac MV 86 -3 -[address] 49 KE ti 20 0 9- 00 SI 48 AL ve TA 05 20 20 DE E TI 33 09 09 JR N 0 PH 40 [place] MA LL MG CY IA M TA OF F BL CY ET NT HI AN A HY 00 07 11 03 30 30 EA [address] 59 -1 -[address] 47 KE ti OC 10 4- 5- 00 SI 77 AL ve HL 34 20 20 DE E OR 70 09 09 JR OT 1 PH HI AR [place] MA LL ID CY IA E M 12 OF F .5 CY NT MG HI AN CP A CL 00 10 10 00 60 30 EA 14 MC Ac ON -[address] 69 KE ti AZ 30 4- 2- 00 SI 57 AL ve EP 83 20 20 DE E AM 20 09 09 JR 1 PH 0. [place] 5 MA LL MG CY IA M TA OF F BL CY ET NT HI AN A 00 10 10 00 12 30 EA 14 MC Ac 59 -1 -[address] 69 KE ti 10 4- 2- 00 SI 56 AL ve 54 20 20 0 DE E 00 09 09 JR 1 PH [place] MA LL CY IA M OF F CY NT HI AN A NE 00 08 10 01 30 30 EA 14 MC Ac XI 18 -3 -[address] 06 KE ti UM 65 1- 2- 00 SI 00 AL ve 04 [address] 03 09 JR 1 PH 40 [place] MA LL MG CY IA M CA OF F PS CY UL NT E HI AN A SI 65 09 10 00 30 30 EA 14 MC Ac MV 86 -3 -[address] 49 KE ti 20 0- 8- 00 SI 48 AL ve TA 05 20 20 DE E TI 33 09 09 JR N 0 PH 40 [place] MA LL MG CY IA M TA OF F BL CY ET NT HI AN A LE 00 07 10 02 30 30 EA 13 MC Ac VO 37 -2 -[address] 63 KE ti TH 81 7- 8- 00 SI 09 AL ve YR 80 20 20 DE E OX 30 09 JR IN 1 PH E [place] 50 MA LL CY IA MC M G OF F TA CY BL NT ET HI AN A CL 00 09 09 00 60 30 EA 14 MC Ac ON 09 - -[address] 23 KE ti AZ 30 4- 4- 00 SI 85 AL ve EP 83 20 20 DE E AM 20 09 09 JR 1 PH 0. [place] 5 MA LL MG CY IA M TA OF F BL CY ET NT HI AN A HY 00 07 09 02 30 30 EA [address] 59 -1 -[address] 47 KE ti OC 10 4- 4- 00 SI 77 AL ve HL 34 20 20 DE E OR 70 09 09 JR OT 1 PH HI [place] MA LL ID CY IA E M 12 OF F .5 CY NT MG HI AN CP A 00 09 09 00 12 30 EA 14 MC Ac 59 -1 -[address] 23 KE ti 10 4- 4- 00 SI 84 AL ve 54 20 20 0 DE E 00 09 09 JR 1 PH [place] MA LL CY IA M OF F CY NT HI AN A LE 00 09 01 30 30 EA 13 MC Ac VO 37 -2 -[address] 63 KE ti TH 81 7- 0- 00 SI 09 AL ve YR 80 20 20 DE E OX 30 09 JR IN 1 PH E [place] 50 MA LL CY IA MC M G OF F TA CY BL NT ET HI AN A NE 00 08 09 00 30 30 EA 14 MC Ac XI 18 -3 -[address] 06 KE ti UM 65 1- 0- 00 SI 00 AL ve 04 [address] 03 09 09 JR 1 PH 40 [place] MA LL MG CY IA M CA OF F PS CY UL NT E HI AN A HY 00 08 01 30 30 EA [address] 59 -1 -[address] 47 KE ti OC 10 4 7- 00 SI 77 AL ve HL 34 20 20 DE E OR 70 09 09 JR OT 1 PH HI AR [place] MA LL ID CY IA E M 12 OF F .5 CY NT MG HI AN CP A CL 00 08 08 00 60 30 EA 13 MC Ac ON 09 -1 -[address] 84 KE ti AZ 30 4 7- 00 SI 73 AL ve EP 83 20 20 DE E AM 20 09 09 JR 1 PH 0. [place] 5 MA LL MG CY IA M TA OF F BL CY ET NT HI AN A SI 65 05 08 03 30 30 EA 12 MC Ac MV 86 -0 -[address] 56 KE ti 20 1- 7- 00 SI 59 AL ve TA 05 20 20 DE E TI 33 09 09 JR N 0 PH 40 [place] MA LL MG CY IA M TA OF F BL CY ET NT HI AN A 00 08 08 00 12 30 EA 13 MC Ac 59 -1 -[address] 84 KE ti 10 4- 7- 00 SI 74 AL ve 54 20 20 0 DE E 00 09 09 JR 1 PH [place] MA LL CY IA M OF F CY NT HI AN A LE 00 07 08 00 30 30 EA 13 MC Ac VO 37 -2 -[address] 63 KE ti TH 81 7- 3- 00 SI 09 AL ve YR 80 20 20 DE E OX 30 09 09 JR IN 1 PH E [place] 50 MA LL CY IA MC M G OF F TA CY BL NT ET HI AN A NE 00 04 08 03 30 30 EA 12 MC Ac XI 18 -1 -[address] 35 KE ti UM 65 5- 3- 00 SI 57 AL ve 04 [address] 03 09 JR 1 PH 40 [place] MA LL MG CY IA M CA OF F PS CY UL NT E HI AN A 00 07 07 00 12 30 EA 13 MC Ac 59 -1 -[address] 50 KE ti 10 5- 0- 00 SI 62 AL ve 54 20 20 0 DE E 00 09 09 JR 1 PH [place] MA LL CY IA M OF F CY NT HI AN A SI 65 05 07 02 30 30 EA 12 MC Ac MV 86 -0 -[address] 56 KE ti 20 1- 0- 00 SI 59 AL ve TA 05 20 20 DE E TI 33 09 09 JR N 0 PH 40 [place] MA LL MG CY IA M TA OF F BL CY ET NT HI AN A HY 00 07 07 00 30 30 EA [address] 59 -1 -[address] 47 KE ti OC 10 4- 0- 00 SI 77 AL ve HL 34 20 20 DE E OR 70 09 09 JR OT 1 PH HI AR [place] MA LL ID CY IA E M 12 OF F .5 CY NT MG HI AN CP A CL 00 05 07 02 60 30 EA 12 MC Ac ON 09 -1 -[address] 75 KE ti AZ 30 5- 0- 00 SI 71 AL ve EP 83 20 20 DE E AM 20 09 09 JR 1 PH 0. [place] 5 MA LL MG CY IA M TA OF F BL CY ET NT HI AN A NE 00 04 07 02 30 30 EA 12 MC Ac XI 18 -1 -[address] 35 KE ti UM 65 5- 6- 00 SI 57 AL ve 04 [address] 03 09 09 JR 1 PH 40 [place] MA LL MG CY IA M CA OF F PS CY UL NT E HI AN A HY 00 05 07 01 30 30 EA [address] 59 -1 -[address] 72 KE ti OC 10 2- 2- 00 SI 08 AL ve HL 34 20 20 DE E OR 70 09 09 JR OT 1 PH HI AR [place] MA LL ID CY IA E M 12 OF F .5 CY NT MG HI AN CP A 00 06 07 00 12 30 EA 13 MC Ac 59 -1 -[address] 16 KE ti 10 6- 2- 00 SI 06 AL ve 54 20 20 0 DE E 00 09 09 JR 1 PH [place] MA LL CY IA M OF F CY NT HI AN A CL 00 05 07 01 60 30 EA 12 MC Ac ON 09 -1 -[address] 75 KE ti AZ 30 5- 2- 00 SI 71 AL ve EP 83 20 20 DE E AM 20 09 09 JR 1 PH 0. [place] 5 MA LL MG CY IA M TA OF F BL CY ET NT HI AN A ME 16 06 07 00 90 30 EA 13 MC Ac TO 71 -1 -[address] 13 KE ti CL 40 3- 2- 00 SI 20 AL ve OP 06 20 20 DE E RA 20 09 09 JR AL 6 PH DE AR WI MA LL 10 CY IA M MG OF F CY TA NT BL HI ET AN A HY 00 06 07 00 60 10 EA [address] 55 -2 -[address] 28 ON ti OX 50 6- 2- 00 SI 19 NE ve YZ 32 20 20 DE LL IN 30 09 09 E 4 PH ANJELICA PA AR HN M MA 25 CY MG OF CY CA NT P HI AN A LE 00 03 07 03 30 30 EA 11 NG Ac VO 37 -1 -[address] 90 RV ti TH 81 6- 2- 00 SI 92 EY ve YR 80 20 20 DE OX 30 09 09 ANJELICA IN 1 PH DI E AR 50 MA CY MC G OF TA CY BL NT ET HI AN A SI 65 05 06 01 30 30 EA 12 MC Ac MV 86 -0 -[address] 56 KE ti 20 1- 8- 00 SI 59 AL ve TA 05 20 20 DE E TI 33 09 09 JR N 0 PH 40 [place] MA LL MG CY IA M TA OF F BL CY ET NT HI AN A 00 05 06 00 12 30 EA 12 MC Ac 59 -1 -[address] 77 KE ti 10 8- 4- 00 SI 89 AL ve 54 20 20 0 DE E 00 09 09 JR 1 PH [place] MA LL CY IA M OF F CY NT HI AN A LE 00 03 06 02 30 30 EA 11 NG Ac VO 37 -1 -[address] 90 RV ti TH 81 6- 4- 00 SI 92 EY ve YR 80 20 20 DE OX 30 09 09 ANJELICA IN 1 PH DI E AR 50 MA CY MC G OF TA CY BL NT ET HI AN A NE 00 04 06 01 30 30 EA 12 MC Ac XI 18 -1 -[address] 35 KE ti UM 65 5- 4- 00 SI 57 AL ve 04 [address] 03 09 09 JR 1 PH 40 [place] MA LL MG CY IA M CA OF F PS CY UL NT E HI AN A ME 60 05 05 00 30 30 EA 12 MC Ac LO 50 -1 -[address] 75 KE ti XI 52 5- 1- 00 SI 72 AL ve CA 55 20 20 DE E M 40 09 09 JR 15 1 PH AR WI MG MA LL CY IA TA M BL OF F ET CY NT HI AN A HY 00 05 05 00 30 30 EA [address] 59 -1 -[address] 72 KE ti OC 10 2- 1- 00 SI 08 AL ve HL 34 20 20 DE E OR 70 09 09 JR OT 1 PH HI AR [place] MA LL ID CY IA E M 12 OF F .5 CY NT MG HI AN CP A CL 00 05 05 00 60 30 EA 12 MC Ac ON -[address] 75 KE ti AZ 30 5- 1- 00 SI 71 AL ve EP 83 20 20 DE E AM 20 09 09 JR 1 PH 0. [place] 5 MA LL MG CY IA M TA OF F BL CY ET NT HI AN A SI 65 05 05 00 30 30 EA 12 MC Ac MV 86 -0 -[address] 56 KE ti 20 1- 7- 00 SI 59 AL ve TA 05 20 20 DE E TI 33 09 09 JR N 0 PH 40 [place] MA LL MG CY IA M TA OF F BL CY ET NT HI AN A 00 04 04 00 12 30 EA 12 BE Ac 59 -1 -[address] 35 SS ti 10 5- 3- 00 SI 56 ON ve 54 20 20 0 DE [address] 1 PH EP AR HE MA N CY A OF CY NT HI AN A CL 00 04 04 00 60 30 EA 12 BE Ac ON 09 - -[address] 35 SS ti AZ 30 5- 3- 00 SI 55 ON ve EP 83 20 20 DE AM [address] 1 PH EP 0. AR HE 5 MA N MG CY A TA OF BL CY ET NT HI AN A HY 00 02 04 01 30 30 EA [address] 59 -1 -[address] 49 NT ti OC 10 6- 3- 00 SI 33 ER ve HL 34 20 20 DE OR 70 09 09 NA OT 1 PH NC HI AR Y AZ MA C ID CY E 12 OF .5 CY NT MG HI AN CP A LE 00 03 04 01 30 30 EA 11 NG Ac VO 37 -1 -[address] 90 RV ti TH 81 6- 3- 00 SI 92 EY ve YR 80 20 20 DE OX 30 09 09 ANJELICA IN 1 PH DI E AR 50 MA CY MC G OF TA CY BL NT ET HI AN A NE 00 04 04 00 30 30 EA 12 MC Ac XI 18 -1 -[address] 35 KE ti UM 65 5- 3- 00 SI 57 AL ve 04 [address] 03 09 JR 1 PH 40 [place] MA LL MG CY IA M CA OF F PS CY UL NT E HI AN A ME 49 03 04 01 30 30 EA 11 NG Ac TO 88 -1 -[address] 90 RV ti KS 40 6- 3- 00 SI 94 EY ve OL 40 20 20 DE OL 50 09 09 ANJELICA 1 PH DI GALLAGHER AR CC MA CY ER OF 50 CY NT MG HI AN TA A B NE 00 03 03 00 30 30 EA 11 MC Ac XI 18 -1 -[address] 83 KE ti UM 65 0- 6- 00 SI 05 AL ve 04 [address] 03 09 09 JR 1 PH 40 [place] MA LL MG CY IA M CA OF F PS CY UL NT E HI AN A SI 65 10 03 05 30 30 EA 99 MC Ac MV 86 -0 -[address] 75 KE ti 20 6- 6- 00 SI 41 AL ve TA 05 20 20 DE E TI 33 08 09 JR N 0 PH 40 AR [place] MA LL MG CY IA M TA OF F BL CY ET NT HI AN A LE 00 03 03 00 30 30 EA 11 NG Ac VO 37 -1 -[address] 90 RV ti TH 81 6- 6- 00 SI 92 EY ve YR 80 20 20 DE OX 30 09 09 ANJELICA IN 1 PH DI E AR 50 MA CY MC G OF TA CY BL NT ET HI AN A CL 00 03 03 00 60 30 EA 11 NG Ac ON 09 -1 -[address] 90 RV ti AZ 30 6- 6- 00 SI 95 EY ve EP 83 20 20 DE AM 20 09 09 ANJELICA 1 PH DI 0. AR 5 MA MG CY TA OF BL CY ET NT HI AN A ME 49 03 03 00 30 30 EA 11 NG Ac TO 88 -1 -[address] 90 RV ti KS 40 6- 6- 00 SI 94 EY ve OL 40 20 20 DE OL 50 09 09 ANJELICA 1 PH DI GALLAGHER AR CC MA CY ER OF 50 CY NT MG HI AN TA A B 00 03 03 00 12 30 EA 11 NG Ac 59 -1 -[address] 90 RV ti 10 6- 6- 00 SI 93 EY ve 54 20 20 0 DE 00 09 09 ANJELICA 1 PH DI AR MA CY OF CY NT HI AN A HY 00 02 02 00 30 30 EA [address] 59 -1 -[address] 49 NT ti OC 10 6- 6 SI 33 ER ve HL 34 20 20 DE OR 70 09 09 NA OT 1 PH NC HI AR Y AZ MA C ID CY E 12 OF .5 CY NT MG HI AN CP A SI 65 10 02 04 30 30 EA 99 MC Ac MV 86 -0 -[address] 75 KE ti 20 6- 6 00 SI 41 AL ve TA 05 20 20 DE E TI 33 08 09 JR N 0 PH 40 [place] MA LL MG CY IA M TA OF F BL CY ET NT HI AN A 00 02 02 00 12 30 EA 11 MC Ac 59 -1 -[address] 48 KE ti 10 6 6 00 SI 90 AL ve 54 20 20 0 DE E 00 09 09 JR 1 PH AR WI MA LL CY IA M OF F CY NT HI AN A ME 49 11 02 03 30 30 EA 10 MC Ac TO 88 -0 -[address] 14 KE ti KS 40 5- 6- 00 SI 65 AL ve OL 40 20 20 DE E OL 50 08 09 JR 1 PH GALLAGHER AR WI CC MA LL CY IA ER M OF F 50 CY NT MG HI AN TA A B LE 00 01 02 01 30 30 EA 11 MC Ac VO 37 -1 -[address] 07 KE ti TH 81 3- 6- 00 SI 93 AL ve YR 80 20 20 DE E OX 30 09 09 JR IN 1 PH E [place] 50 MA LL CY IA MC M G OF F TA CY BL NT ET HI AN A CL 00 02 02 00 60 30 EA 11 MC Ac ON 09 -1 -[address] 48 KE ti AZ 30 6- 6- 00 SI 89 AL ve EP 83 20 20 DE E AM 20 09 09 JR 1 PH 0. [place] 5 MA LL MG CY IA M TA OF F BL CY ET NT HI AN A NE 00 08 02 05 30 30 EA 99 MC Ac XI 18 -2 -[address] 22 KE ti UM 65 6- 2- 00 SI 45 AL ve 04 [address] 03 08 09 JR 1 PH 40 [place] MA LL MG CY IA M CA OF F PS CY UL NT E HI AN A LE 00 01 01 00 30 30 EA 11 MC Ac VO 37 -1 -[address] 07 KE ti TH 81 3- 0- 00 SI 93 AL ve YR 80 20 20 DE E OX 30 09 09 JR IN 1 PH E [place] 50 MA LL CY IA MC M G OF F TA CY BL NT ET HI AN A CL 00 01 01 00 60 30 EA 11 NG Ac ON 09 -1 -[address] 14 RV ti AZ 30 9- 0- 00 SI 55 EY ve EP 83 20 20 DE AM 20 09 09 ANJELICA 1 PH DI 0. AR 5 MA MG CY TA OF BL CY ET NT HI AN A GALLAGHER 53 01 01 00 20 10 EA 11 NG Ac LF 48 -1 -[address] 14 RV ti AM 90 9- 0- 00 SI 53 EY ve ET 14 20 20 DE HO 60 09 09 ANJELICA XA 1 PH DI ZO AR LE MA -T CY MP OF DS CY NT TA HI BL AN ET A 00 01 01 00 12 30 EA 11 NG Ac 59 -1 -[address] 14 RV ti 10 9- 0- 00 SI 54 EY ve 54 20 20 0 DE 00 09 09 ANJELICA 1 PH DI AR MA CY OF CY NT HI AN A AM 68 01 01 00 30 30 EA 10 JU Ac LO 38 -0 -[address] 93 DY ti DI 20 3- 5- 00 SI 65 ve PI 12 20 20 DE NA NE 31 09 09 TA 6 PH LI BE AR E SY MA E LA CY TE OF 10 CY NT MG HI AN TA A B SI 65 10 01 03 30 30 EA 99 MC Ac MV 86 -0 -[address] 75 KE ti 20 6- 5- 00 SI 41 AL ve TA 05 20 20 DE E TI 33 08 09 JR N 0 PH 40 AR [place] MA LL MG CY IA M TA OF F BL CY ET NT HI AN A ME 49 11 01 02 30 30 EA 10 MC Ac TO 88 -0 -[address] 14 KE ti KS 40 5- 5- 00 SI 65 AL ve OL 40 20 20 DE E OL 50 08 09 JR 1 PH GALLAGHER AR WI CC MA LL CY IA ER M OF F 50 CY NT MG HI AN TA A B NE 00 08 01 04 30 30 EA 99 MC Ac XI 18 -2 -[address] 22 KE ti UM 65 6- 5- 00 SI 45 AL ve 04 [address] 03 08 09 JR 1 PH 40 [place] MA LL MG CY IA M CA OF F PS CY UL NT E HI AN A 00 12 01 00 12 30 EA 10 NG Ac 59 -1 -[address] 72 RV ti 10 7- 1- 00 SI 93 EY ve 54 20 20 0 DE 00 08 09 ANJELICA 1 PH DI AR MA CY OF CY NT HI AN A LE 00 11 01 01 30 30 EA 10 MC Ac VO 37 -1 -[address] 21 KE ti TH 81 0- 1- 00 SI 64 AL ve YR 80 20 20 DE E OX 30 08 09 JR IN 1 PH E [place] 50 MA LL CY IA MC M G OF F TA CY BL NT ET HI AN A ME 49 11 12 01 30 30 EA 10 MC Ac TO 88 -0 -[address] 14 KE ti KS 40 5- 8- 00 SI 65 AL ve OL 40 20 20 DE E OL 50 08 08 JR 1 PH GALLAGHER AR WI CC MA LL CY IA ER M OF F 50 CY NT MG HI AN TA A B 60 12 12 00 12 3 EA 10 MC Ac 25 -0 -[address] 54 KE ti 80 4- 8- 00 SI 81 AL ve 23 20 20 0 DE E 91 08 08 JR 6 PH AR WI MA LL CY IA M OF F CY NT HI AN A 63 12 12 00 10 5 EA 10 JU Ac 82 -0 -[address] 52 DY ti 40 3- 8- 00 SI 61 ve 00 20 20 DE NA 82 08 08 TA 0 PH LI AR E MA E CY OF CY NT HI AN A AM 68 12 12 00 30 30 EA 10 JU Ac LO 38 -0 -[address] 52 DY ti DI 20 3- 8- 00 SI 59 ve PI 12 20 20 DE NA NE 31 08 08 TA 6 PH LI BE AR E SY MA E LA CY TE OF 10 CY NT MG HI AN TA A B 67 12 12 00 20 10 EA 10 JU Ac 25 -0 -[address] 52 DY ti 30 3- 8- 00 SI 60 ve 00 20 20 DE NA 76 08 08 TA 0 PH LI AR E MA E CY OF CY NT HI AN A NE 00 08 12 03 30 30 EA 99 MC Ac XI 18 -2 -[address] 22 KE ti UM 65 6- 8- 00 SI 45 AL ve 04 [address] 03 08 08 JR 1 PH 40 [place] MA LL MG CY IA M CA OF F PS CY UL NT E HI AN A CL 00 10 12 01 60 30 EA 99 MC Ac ON 09 -[address] 81 KE ti AZ 30 0- 8- 00 SI 89 AL ve EP 83 20 20 DE E AM 20 08 08 JR 1 PH 0. [place] 5 MA LL MG CY IA M TA OF F BL CY ET NT HI AN A SI 65 10 12 02 30 30 EA 99 MC Ac MV 86 -0 -[address] 75 KE ti 20 6- 8- 00 SI 41 AL ve TA 05 20 20 DE E TI 33 08 08 JR N 0 PH 40 AR [place] MA LL MG CY IA M TA OF F BL CY ET NT HI AN A CL 00 10 11 00 60 30 EA 99 MC Ac ON 09 -[address] 81 KE ti AZ 30 0- 0- 00 SI 89 AL ve EP 83 20 20 DE E AM 20 08 08 JR 1 PH 0. [place] 5 MA LL MG CY IA M TA OF F BL CY ET NT HI AN A SI 65 10 11 01 30 30 EA 99 MC Ac MV 86 -0 -[address] 75 KE ti 20 6- 0- 00 SI 41 AL ve TA 05 20 20 DE E TI 33 08 08 JR N 0 PH 40 AR [place] MA LL MG CY IA M TA OF F BL CY ET NT HI AN A ME 49 11 11 00 30 30 EA 10 MC Ac TO 88 -0 -[address] 14 KE ti KS 40 5- 0- 00 SI 65 AL ve OL 40 20 20 DE E OL 50 08 08 JR 1 PH GALLAGHER AR WI CC MA LL CY IA ER M OF F 50 CY NT MG HI AN TA A B LE 00 11 11 00 30 30 EA 10 MC Ac VO 37 -1 -[address] 21 KE ti TH 81 0- 0- 00 SI 64 AL ve YR 80 20 20 DE E OX 30 08 08 JR IN 1 PH E [place] 50 MA LL CY IA MC M G OF F TA CY BL NT ET HI AN A NE 00 08 11 02 30 30 EA 99 MC Ac XI 18 -2 -[address] 22 KE ti UM 65 6- 7- 00 SI 45 AL ve 04 [address] 03 08 08 JR 1 PH 40 AR [place] MA LL MG CY IA M CA OF F PS CY UL NT E HI AN A LE 00 07 10 03 30 30 EA 98 No Ac VO 37 -0 -[address] 66 t ti TH 81 9- 3- 00 SI 05 Av ve YR 80 20 20 DE ai OX 30 08 08 la IN 1 PH bl E AR e 50 MA CY MC G OF TA CY BL NT ET HI AN A CL 00 08 10 02 60 30 EA 98 No Ac ON 09 -0 -[address] 99 t ti AZ 30 7- 3- 00 SI 54 Av ve EP 83 20 20 DE ai AM 20 08 08 la 1 PH bl 0. AR e 5 MA MG CY TA OF BL CY ET NT HI AN A SI 65 10 10 00 30 30 EA 99 No Ac MV 86 -0 -[address] 75 t ti 20 6- 3- 00 SI 41 Av ve TA 05 20 20 DE ai TI 33 08 08 la N 0 PH bl 40 AR e MA MG CY TA OF BL CY ET NT HI AN A 00 10 10 00 12 30 EA 99 No Ac 59 -1 -[address] 81 t ti 10 0- 3- 00 SI 81 Av ve 54 20 20 0 DE ai 00 08 08 la 1 PH bl AR e MA CY OF CY NT HI AN A ME 49 07 10 03 30 30 EA 98 No Ac TO 88 -0 -[address] 58 t ti KS 40 1- 3- 00 SI 13 Av ve OL 40 20 20 DE ai OL 50 08 08 la 1 PH bl GALLAGHER AR e CC MA CY ER OF 50 CY NT MG HI AN TA A B NE 00 08 10 01 30 30 EA 99 No Ac XI 18 -2 -[address] 22 t ti UM 65 6- 9- 00 SI 45 Av ve 04 [address] 03 08 08 la 1 PH bl 40 AR e MA MG CY CA OF PS CY UL NT E HI AN A LE 00 07 09 02 30 30 EA 98 No Ac VO 37 -0 -[address] 66 t ti TH 81 9- 6- 00 SI 05 Av ve YR 80 20 20 DE ai OX 30 08 08 la IN 1 PH bl E AR e 50 MA CY MC G OF TA CY BL NT ET HI AN A EN 60 09 09 00 12 30 EA 99 No Ac DO 95 -0 -[address] 39 t ti CE 10 8- 6- 00 SI 21 Av ve T 70 20 20 0 DE ai 7. 07 08 08 la 5- 0 PH bl 32 AR e 5 MA MG CY TA OF BL CY ET NT HI AN A CL 00 08 09 01 60 30 EA 98 No Ac ON 09 -0 -[address] 99 t ti AZ 30 7- 6- 00 SI 54 Av ve EP 83 20 20 DE ai AM 20 08 08 la 1 PH bl 0. AR e 5 MA MG CY TA OF BL CY ET NT HI AN A ME 49 07 09 02 30 30 EA 98 No Ac TO 88 -0 -[address] 58 t ti KS 40 1- 1- 00 SI 13 Av ve OL 40 20 20 DE ai OL 50 08 08 la 1 PH bl GALLAGHER AR e CC MA CY ER OF 50 CY NT MG HI AN TA A B LI 00 04 09 04 30 30 EA 97 No Ac PI 07 -2 -[address] 74 t ti TO 10 5- 1 00 SI 98 Av ve R 15 20 20 DE ai 10 52 08 08 la 3 PH bl MG AR e MA TA CY BL ET OF CY NT HI AN A NE 00 08 09 00 30 30 EA 99 No Ac XI 18 -2 -[address] 22 t ti UM 65 6- 1- 00 SI 45 Av ve 04 [address] 03 08 08 la 1 PH bl 40 AR e MA MG CY CA OF PS CY UL NT E HI AN A TO 00 07 08 01 30 30 EA 98 No Ac KS 18 -0 -[address] 58 t ti OL 61 1- 4- 00 SI 13 Av ve 09 20 20 DE ai XL 00 08 08 la 5 PH bl 50 AR e MA MG CY TA OF BL CY ET NT HI AN A KS 37 08 08 00 30 30 EA 98 No Ac IL 00 -0 -[address] 92 t ti OS 00 1- 4- 00 SI 56 Av ve EC 45 20 20 DE ai 50 08 08 la OT 2 PH bl C AR e 20 MA .6 CY MG OF CY TA NT BL HI ET AN A LE 00 07 08 01 30 30 EA 98 No Ac VO 37 -0 -[address] 66 t ti TH 81 9- 4- 00 SI 05 Av ve YR 80 20 20 DE ai OX 30 08 08 la IN 1 PH bl E AR e 50 MA CY MC G OF TA CY BL NT ET HI AN A LI 00 04 08 03 30 30 EA 97 No Ac PI 07 -2 -[address] 74 t ti TO 10 4 00 SI 98 Av ve R 15 20 20 DE ai 10 52 08 08 la 3 PH bl MG AR e MA TA CY BL ET OF CY NT HI AN A CL 00 08 08 00 60 30 EA 98 No Ac ON 09 -0 -[address] 99 t ti AZ 30 7 4 00 SI 54 Av ve EP 83 20 20 DE ai AM 20 08 08 la 1 PH bl 0. AR e 5 MA MG CY TA OF BL CY ET NT HI AN A KS 37 04 07 03 30 30 EA 97 No Ac IL 00 -0 -[address] 45 t ti OS 00 2 7 SI 42 Av ve EC 45 20 20 DE ai 50 08 08 la OT 2 PH bl C AR e 20 MA .6 CY MG OF CY TA NT BL HI ET AN A CL 00 07 07 00 60 30 EA 98 No Ac ON 09 -0 -[address] 66 t ti AZ 30 9 7 00 SI 04 Av ve EP 83 20 20 DE ai AM 20 08 08 la 1 PH bl 0. AR e 5 MA MG CY TA OF BL CY ET NT HI AN A EN 60 07 07 00 12 30 EA 98 No Ac DO 95 -0 -[address] 66 t ti CE 10 9 7 00 SI 03 Av ve T 70 20 20 0 DE ai 7. 07 08 08 la 5- 0 PH bl 32 AR e 5 MA MG CY TA OF BL CY ET NT HI AN A LI 00 04 07 02 30 30 EA 97 No Ac PI 07 -2 -[address] 74 t ti TO 10 SI 98 Av ve R 15 20 20 DE ai 10 52 08 08 la 3 PH bl MG AR e MA TA CY BL ET OF CY NT HI AN A TO 00 07 07 00 30 30 EA 98 No Ac KS 18 -0 -[address] 58 t ti OL 61 - 7 00 SI 13 Av ve 09 20 20 DE ai XL 00 08 08 la 5 PH bl 50 AR e MA MG CY TA OF BL CY ET NT HI AN A LE 00 07 07 00 30 30 EA 98 No Ac VO 37 -0 -[address] 66 t ti TH 81 9- 7- 00 SI 05 Av ve YR 80 20 20 DE ai OX 30 08 08 la IN 1 PH bl E AR e 50 MA CY MC G OF TA CY BL NT ET HI AN A CI 57 07 07 00 15 30 EA 98 No Ac TA 66 -0 -[address] 66 t ti LO 40 9- 7- 00 SI 06 Av ve KS 50 20 20 DE ai AM 98 08 08 la 8 PH bl HB AR e R MA 40 CY MG OF CY TA NT BL HI ET AN A 00 06 07 00 30 30 EA 98 No Ac 04 -3 -[address] 56 t ti 50 0- 7- 00 SI 08 Av ve 63 20 20 DE ai 96 08 08 la 5 PH bl AR e MA CY OF CY NT HI AN A LE 00 06 07 00 30 30 EA 98 No Ac VO 37 -0 -[address] 29 t ti TH 81 9- 3- 00 SI 30 Av ve YR 80 20 20 DE ai OX 30 08 08 la IN 1 PH bl E AR e 50 MA CY MC G OF TA CY BL NT ET HI AN A EN 60 06 07 00 12 30 EA 98 No Ac DO 95 -0 -[address] 29 t ti CE 10 9- 3- 00 SI 32 Av ve T 70 20 20 0 DE ai 7. 07 08 08 la 5- 0 [address] bl 32 AR e 5 MA MG CY TA OF BL CY ET NT HI AN A CL 00 06 07 00 60 30 EA 98 No Ac ON 09 -0 -[address] 29 t ti AZ 30 9- 3- 00 SI 33 Av ve EP 83 20 20 DE ai AM 20 08 08 la 1 PH bl 0. AR e 5 MA MG CY TA OF BL CY ET NT HI AN A KS 37 04 06 02 30 30 EA 97 No Ac IL 00 -0 -[address] 45 t ti OS 00 2- 2- 00 SI 42 Av ve EC 45 20 20 DE ai 50 08 08 la OT 2 PH bl C AR e 20 MA .6 CY MG OF CY TA NT BL HI ET AN A TO 00 04 06 01 30 30 EA 97 No Ac KS 18 -2 -[address] 75 t ti OL 61 5- 5- 00 SI 04 Av ve 09 20 20 DE ai XL 00 08 08 la 5 PH bl 50 AR e MA MG CY TA OF BL CY ET NT HI AN A LI 00 04 06 01 30 30 EA 97 No Ac PI 07 -2 -[address] 74 t ti TO 10 5- 5- 00 SI 98 Av ve R 15 20 20 DE ai 10 52 08 08 la 3 PH bl MG AR e MA TA CY BL ET OF CY NT HI AN A EN 60 05 05 00 12 30 EA 97 No Ac DO 95 -0 -[address] 93 t ti CE 10 9- 2- 00 SI 13 Av ve T 70 20 20 0 DE ai 7. 07 08 08 la 5- 0 PH bl 32 AR e 5 MA MG CY TA OF BL CY ET NT HI AN A 49 10 05 01 60 30 EA 95 No Ac 88 -2 -[address] 27 t ti 40 3- 2- 00 SI 31 Av ve 54 20 20 DE ai 50 07 08 la 1 PH bl AR e MA CY OF CY NT HI AN A CL 00 05 05 00 60 30 EA 97 No Ac ON 09 -0 -[address] 93 t ti AZ 30 9- 2- 00 SI 12 Av ve EP 83 20 20 DE ai AM 20 08 08 la 1 PH bl 0. AR e 5 MA MG CY TA OF BL CY ET NT HI AN A KS 37 04 05 01 30 30 EA 97 No Ac IL 00 -0 -[address] 45 t ti OS 00 2- 2- 00 SI 42 Av ve EC 45 20 20 DE ai 50 08 08 la OT 2 PH bl C AR e 20 MA .6 CY MG OF CY TA NT BL HI ET AN A LE 00 03 05 01 30 30 EA 97 No Ac VO 37 -2 -[address] 38 t ti TH 81 7- 2- 00 SI 66 Av ve YR 80 20 20 DE ai OX 30 08 08 la IN 1 PH bl E AR e 50 MA CY MC G OF TA CY BL NT ET HI AN A TO 00 04 05 00 30 30 EA 97 No Ac KS 18 -2 -[address] 75 t ti OL 61 5- 8- 00 SI 04 Av ve 09 20 20 DE ai XL 00 08 08 la 5 PH bl 50 AR e MA MG CY TA OF BL CY ET NT HI AN A EN 60 04 05 00 12 30 EA 97 No Ac DO 95 -1 -[address] 56 t ti CE 10 1- 8- 00 SI 82 Av ve T 70 20 20 0 DE ai 7. 07 08 08 la 5- 0 PH bl 32 AR e 5 MA MG CY TA OF BL CY ET NT HI AN A LI 00 04 05 00 30 30 EA 97 No Ac PI 07 -2 -[address] 74 t ti TO 10 5- 8- 00 SI 98 Av ve R 15 20 20 DE ai 10 52 08 08 la 3 PH bl MG AR e MA TA CY BL ET OF CY NT HI AN A CL 00 04 04 00 60 30 EA 97 No Ac ON 09 -1 -[address] 56 t ti AZ 30 1- 4- 00 SI 83 Av ve EP 83 20 20 DE ai AM 20 08 08 la 1 PH bl 0. AR e 5 MA MG CY TA OF BL CY ET NT HI AN A 52 02 04 01 60 30 EA 96 No Ac 15 -2 -[address] 99 t ti 20 7- 4- 00 SI 67 Av ve 23 20 20 DE ai 62 08 08 la 1 PH bl AR e MA CY OF CY NT HI AN A LI 63 07 04 02 30 30 EA 93 No Ac DO 48 -1 -[address] 93 t ti DE 10 0- 4- 00 SI 06 Av ve RM 68 20 20 DE ai 70 07 08 la 5% 6 PH bl AR e PA MA TC CY H OF CY NT HI AN A LI 00 03 04 00 30 30 EA 97 No Ac PI 07 -2 -[address] 30 t ti TO 10 1 7- SI 66 Av ve R 15 20 20 DE ai 10 52 08 08 la 3 PH bl MG AR e MA TA CY BL ET OF CY NT HI AN A CI 55 03 04 00 15 30 EA 97 No Ac TA 11 -2 -[address] 38 t ti LO 10 7- 0- 00 SI 65 Av ve KS 34 20 20 DE ai AM 30 08 08 la 1 PH bl HB AR e R MA 20 CY MG OF CY TA NT BL HI ET AN A KS 37 04 04 00 30 30 EA 97 No Ac IL 00 -0 -[address] 45 t ti OS 00 2- 0- 00 SI 42 Av ve EC 45 20 20 DE ai 50 08 08 la OT 2 PH bl C AR e 20 MA .6 CY MG OF CY TA NT BL HI ET AN A LE 00 03 04 00 30 30 EA 97 No Ac VO 37 -2 -[address] 38 t ti TH 81 7- 0- 00 SI 66 Av ve YR 80 20 20 DE ai OX 30 08 08 la IN 1 PH bl E AR e 50 MA CY MC G OF TA CY BL NT ET HI AN A ME 57 03 04 00 60 30 EA 97 No Ac TO 66 -2 -[address] 38 t ti KS 40 7- 0- 00 SI 67 Av ve OL 50 20 20 DE ai OL 61 08 08 la 8 PH bl TA AR e RT MA RA CY TE OF 25 CY NT MG HI AN TA A B 00 02 04 00 90 30 EA 96 No Ac 04 -2 -[address] 99 t ti 50 7- 7- 00 SI 66 Av ve 63 20 20 DE ai 96 08 08 la 5 PH bl AR e MA CY OF CY NT HI AN A 52 02 04 00 60 30 EA 96 No Ac 15 -2 -[address] 99 t ti 20 7- 7- 00 SI 67 Av ve 23 20 20 DE ai 62 08 08 la 1 PH bl AR e MA CY OF CY NT HI AN A 59 02 03 00 12 3 EA 96 No Ac 70 -0 -[address] 71 t ti 20 7- 6- 00 SI 26 Av ve 80 20 20 0 DE ai 01 08 08 la 6 PH bl AR e MA CY OF CY NT HI AN A 60 01 03 00 12 3 EA 96 No Ac 25 -1 -[address] 32 t ti 80 2- 5- 00 SI 92 Av ve 23 20 20 0 DE ai 91 08 08 la 6 PH bl AR e MA CY OF CY NT HI AN A 00 01 03 00 12 12 EA 96 No Ac 09 -1 -[address] 40 t ti 50 7- 5- 00 SI 23 Av ve 13 20 20 0 DE ai 21 08 08 la 6 PH bl AR e MA CY OF CY NT HI AN A 00 01 03 00 7. 6 EA 96 No Ac 67 -1 -[address] 40 t ti 70 7- 5- 0 SI 24 Av ve 78 20 20 DE ai 40 08 08 la 5 PH bl AR e MA CY OF CY NT HI AN A ME 00 01 03 00 21 6 EA 96 No Ac TH 78 -1 -[address] 40 t ti YL 15 7- 5- 00 SI 25 Av ve KS 02 20 20 DE ai ED 20 08 08 la NI 7 PH bl SO AR e LO MA NE CY 4 OF MG CY NT DO HI SE AN PK A VE 00 01 03 00 18 18 EA 96 No Ac NT 17 -0 -[address] 24 t ti OL 30 7- 4- 00 SI 61 Av ve IN 68 20 20 DE ai 22 08 08 la HF 0 PH bl A AR e 90 MA CY MC G OF IN CY NG NT LE HI R AN A 58 01 03 00 18 6 EA 96 No Ac 17 -0 -[address] 24 t ti 70 7- 4- 00 SI 59 Av ve 88 20 20 0 DE ai 10 08 08 la 7 PH bl AR e MA CY OF CY NT HI AN A DO 53 01 03 00 20 10 EA 96 No Ac XY 48 -0 -[address] 24 t ti CY 90 7- 4- 00 SI 60 Av ve CL 11 20 20 DE ai IN 90 08 08 la E 5 PH bl HY AR e CL MA AT CY E 10 OF 0 CY MG NT HI CA AN P A Immunization Name Date Rout CVX Reac Dose Comm Prov Is Faci e tion ent ider Refu lity Give sed n IIV3 07-30 141 MCKE No MCKE 6-20 MAGALIE MAGALIE VACC 13 JR JR INE AREN SPLI T VIRU AREN S 0.5 ML DOSA GE IM USE Vital Signs 03-06-2013 19:06 Name Value Interpretat Reference Comment ion Range BP 70 mm[Hg] Diastolic BP Systolic 134 mm[Hg] Heart 68 /min Rate/Pulse O2% 98 % Respiratory 20 /min Rate 03-06-2013 16:07 Name Value Interpretat Reference Comment ion Range BP 74 mm[Hg] Diastolic BP Systolic 110 mm[Hg] Heart 79 /min Rate/Pulse O2% 98 % Respiratory 20 /min Rate 01-25-2013 21:40 Name Value Interpretat Reference Comment ion Range BP 83 mm[Hg] Diastolic BP Systolic 126 mm[Hg] Heart 68 /min Rate/Pulse O2% 95 % Respiratory 18 /min Rate 01-25-2013 18:55 Name Value Interpretat Reference Comment ion Range BP 66 mm[Hg] Diastolic BP Systolic 118 mm[Hg] Heart 62 /min Rate/Pulse O2% 95 % Respiratory 18 /min Rate Results Labs Lab Lab Date Result Refere Interp Status Commen Order Detail nces retati t Range on URINALYSIS/COMPLETE (01-25-2013 19:30) URINE YELLOW YELLOW complet COLOR 013 ed 19:30 URINE CLEAR CLEAR complet APPEARA 013 ed NCE 19:30 URINE NEGATIV NEG complet GLUCOSE 013 E ed - 19:30 DIPSTIC K URINE 02-28-2 NEGATIV NEG complet BILIRUB 013 E ed IN - 19:30 DIPSTIC K URINE NEGATIV NEG complet KETONE 013 E mg/dL ed 19:30 URINE 1.020 1.005-1 complet SPECIFI 013 UNK .030 ed C 19:30 GRAVITY URINE 1+ NEG complet BLOOD 013 ed 19:30 URINE 6.0 UNK 5.0-8.5 complet PH 013 ed 19:30 URINE NEGATIV NEG complet PROTEIN 013 E mg/dL ed - 19:30 DIPSTIC K URINE 1.0 NEG complet UROBILI 013 E.U./dL ed NOGEN - 19:30 DIPSTIC K URINE NEGATIV NEG complet NITRATE 013 E ed - 19:30 DIPSTIC K URINE NEGATIV NEG complet LEUK 013 E ed ESTERAS 19:30 E URINE 3-5 0 complet RBC 013 rbc/hpf ed 19:30 URINE 3-5 O complet WBC 013 wbc/hpf ed 19:30 URINE 3-5 OCC complet SQUAMOU 013 #/hpf ed S CELLS 19:30 URINE 1+ O complet BACTERI 013 ed A 19:30 COMPREHENSIVE METABOLIC PANEL (01-25-2013 19:00) Glucose 119 74-106 complet 013 mg/dL ed Bld-mCn 19:00 c BUN 19 7-18 complet Bld-mCn 013 mg/dL ed c 19:00 Creat 1.1 0.8-1.3 complet SerPl-m 013 mg/dL ed Cnc 19:00 ESTIMAT 89 50-200 complet ED 013 ML/MIN ed CREATIN 19:00 INE CLEARAN CE GFR 69 Greater complet (ESTIMA 013 ML/MIN than ed SONG) 19:00 60 Sodium 140 136-145 complet SerPl-s 013 mmoL/L ed Cnc 19:00 Potassi 3.2 3.5-5.1 complet um 013 mmoL/L ed SerPl-s 19:00 Cnc Chlorid 103 98-107 complet e 013 mmoL/L ed SerPl-s 19:00 Cnc CO2 28 21.0-32 complet SerPl-s 013 mmoL/L .0 ed Cnc 19:00 Calcium 8.3 8.5-10. complet 013 mg/dL 1 ed SerPl-m 19:00 Cnc Prot 7.1 6.4-8.2 complet SerPl-m 013 gm/dL ed Cnc 19:00 Albumin 2 3.8 3.4-5.0 complet 013 gm/dL ed SerPl-m 19:00 Cnc Globuli 3.3 1.3-3.2 complet n 013 gm/dL ed Ser-mCn 19:00 c Albumin 1.2 UNK 1.1-1.8 complet /Glob 013 ed SerPl-m 19:00 Rto Bilirub 0.5 0.2-1.0 complet 013 mg/dL ed SerPl-m 19:00 Cnc AST 28 U/L 15-37 complet SerPl-c 013 ed Cnc 19:00 ALT 54 U/L 30-65 complet SerPl-c 013 ed Cnc 19:00 ALP 105 U/L 50-136 complet SerPl-c 013 ed Cnc 19:00 Amylase SerPl-cCnc (01-25-2013 19:00) Amylase 31 U/L 25-115 complet 013 ed SerPl-c 19:00 Cnc LIPASE (01-25-2013 19:00) LIPASE 62 U/L 73-393 complet 013 ed 19:00 CBC with AUTO DIFF (01-25-2013 19:00) WBC # 01-25- 5.3 4.8-10. complet Bld 013 K/MM3 8 ed Auto 19:00 RBC # 01-25-2 4.62 4.6-6.2 complet Bld 013 M/mm3 ed Auto 19:00 Hgb 13.5 14.1-18 complet Bld-mCn 013 g/dL .0 ed c 19:00 Hct Fr 02-28-2 40.8 % 42.0-52 complet Bld 013 .0 ed 19:00 MCV RBC 88.4 fl 82.2-97 complet 013 .8 ed 19:00 MCH RBC 29.3 pg 27-31.2 complet Qn 013 ed Auto 19:00 MEAN 33.1 31.8-35 complet CORPUSC 013 g/dl .4 ed ULAR 19:00 HGB CONC RDW RBC 13.8 % 11.5-17 complet Auto 013 .5 ed 19:00 Platele 232 142-424 complet t Bld 013 K/mm3 ed Ql 19:00 Manual MEAN 7.3 fl 7.4-10. complet PLATELE 013 4 ed T 19:00 VOLUME Granulo 56.2 % 37.0-80 complet cytes 013 .0 ed Fr Bld 19:00 Auto LYMPH % 2 34.1 % 10-50 complet 013 ed 19:00 Monocyt 6.5 % 1.7-9.3 complet es Fr 013 ed Bld 19:00 Auto Eosinop 2 2.6 % 0.1-12. complet hil Fr 013 0 ed Bld 19:00 Auto Basophi 01-25-2 0.6 % 0.1-2.0 complet ls Fr 013 ed Bld 19:00 Auto Granulo 01-25-2 3.0 1.3-8.0 complet cytes # 013 K/mm3 ed Bld 19:00 Auto Lymphoc 01-25-2 1.8 0.7-4.5 complet ytes Fr 013 K/mm3 ed Bld 19:00 Auto Monocyt 01-25-2 0.4 0.1-1.0 complet es # 013 K/mm3 ed Bld 19:00 Auto Eosinop 01-25-2 0.1 0.0-0.4 complet hil # 013 K/mm3 ed Bld 19:00 Auto Basophi 01-25-2 0.0 0-0.2 complet ls # 013 K/MM3 ed Bld 19:00 Auto Procedures Procedure DOS Code Location Performer Comment CREATININ 72573 LINETTE Iniguez BLOOD 7 [facility] [place] [address] LINETTE SUE UREA 7 [facility] NITROGEN INC INC QUANTITAT RUPA COLLECTIO 16694 LINETTE SUE N VENOUS 7 [facility] BLOOD INC INC VENIPUNCT URE DRUG TEST 84469 LAVINIA KATE PRSMV 7 NORMA TOWNSEND MD,PSC CHEMISTRY ANALYZERS DRUG TEST 76969 LINETTE SUE PRSMV 7 [facility] QUAL DIR INC INC OPTICAL OBS PER DAY DRUG 15134 LINETTE SUE SCREENING 7 [facility] INC INC BENZODIAZ EPINES 1-12 ECG 75594 LINETTE SUE ROUTINE 7 [facility] ECG INC INC W/LEAST 12 LDS TRCG ONLY W/O I&R PRQ 33728 [facility] TRLUML 7 PHYSICIAN CORONARY S GROUP STENT W/ANGIO ONE ART/BRNCH CATH PLMT 94810 [facility] L HRT & 7 PHYSICIAN ARTS S GROUP W/NJX & ANGIO IMG S&I MYOCARDIA 54051 LINETTEKING SUE L SPECT 7 [facility] MULTIPLE INC INC STUDIES CV STRS 58194 LINETTE SUE TST 7 [facility] XERS&/OR INC INC RX CONT ECG TRCG ONLY TECHNETIU A9502 LINETTE SUE M TC-99M 7 [facility] TETROFOSM INC INC IN DX PER STUDY DOSE ECHO 03294 LINETTE LINETTE TTHRC R-T 7 [facility] 2D INC INC W/WOM-MOD E COMPL SPEC&COLR D ECG 00551 LINETTE LINETTE ROUTINE 7 [facility] ECG INC INC W/LEAST 12 LDS TRCG ONLY W/O I&R BLOOD 31944 LAVINIA KATE COUNT 7 DUKE TOWNSEND MD,PSC AUTO&AUTO DIFRNTL WBC COMPREHEN 80721 LAVINIA KATE SIVE 7 BOBO TOWNSEND MD,PSC PANEL DRUG TEST 53958 LAVINIA KATE PRSMV 7 NORMA TOWNSEND MD,[place] [address] LAVINIA KATE PHOSPHORU 7 Myron TOWNSEND MD,PSC INORGANIC BILIRUBIN 77508 LAVINIA KATE DIRECT 7 MD KRISTIAN,[place] [address] LAVINIA KATE GLUTAMYLT 7 BEKAH TOWNSEND MD,PSC GAMMA HEPATOBIL 95132 LINETTE SUE SYST 7 [facility] IMAG INC INC INC GB W/PHARMA INTERVENJ TECHNETIU A9537 LINETTE SUE M TC-99M 7 [facility] MEBROFENI INC INC N DX UP TO 15 MCI ECG 72138 LINETTE SUE ROUTINE 7 [facility] ECG INC INC W/LEAST 12 LDS TRCG ONLY W/O I&R FINAL G9638 PARKERERIC ANUJA REPORTS 7 MEDICAL W/O DOC IMAGING 1/[place] [address] [facility]ARKERERIC ANUJA ABDOMEN & 7 MEDICAL PELVIS IMAGING W/O ASS CONTRAST MATERIAL BLOOD 95135 LINETTE SUE COUNT 7 [facility] COMPLETE INC INC AUTO&AUTO DIFRNTL WBC ECG 70329 LINETTE SUE ROUTINE 7 [facility] ECG INC INC W/LEAST 12 LDS TRCG ONLY W/O I&R THER 29822 LINETTE SUE PROPH/DX 7 [facility] NJX IV INC INC PUSH SINGLE/1S T SBST/[place] [address] LINETTE SUE LIPASE 7 [facility] INC INC CREATINE 18989 LINETTE SUE KINASE MB 7 [facility] [place] [address] LINETTE SUE AMYLASE 7 [facility] INC INC CREATINE 74473 LINETTE SUE KINASE 7 [facility] [place] [address] LINETTE SUE TROPONIN 7 [facility] QUANTITAT INC INC RUPA COMPREHEN 35886 LINETTE SUE SIVE 7 [facility] METABOLIC INC INC PANEL FINAL G9551 LEONEL JUARESMIRLANDEERIN REPR ABD 7 MEDICAL IMAG STS IMAGING W/O ASS INCIDNT FND LES NTD: RADIOLOGI 03643 LINETTE LINETTE C EXAM 7 [facility] CHEST 2 INC INC VIEWS FRONTAL&L ATERAL ECG 23670 LINETTE MCCLAIN ROUTINE 7 [facility] W/LEAST P 12 LDS I&R ONLY CT LUMBAR 50855 LEONEL LICEA SPINE 7 MEDICAL W/O IMAGING CONTRAST ASS MATERIAL FINAL G9551 LEONEL LICEA REPR ABD 7 MEDICAL IMAG STS IMAGING W/O ASS INCIDNT FND LES NTD: COMPREHEN 97626 LINETTE SUE SIVE 7 [facility] METABOLIC INC INC PANEL URNLS DIP 97813 LINETTE SUE 7 [facility] STICK/TAB INC INC LET REAGENT AUTO MICROSCOP Y BLOOD 30564 LINETTE SUE COUNT 7 [facility] COMPLETE INC INC AUTO&[place] [address] LEONEL LICEA ABDOMEN & 7 MEDICAL PELVIS IMAGING W/O ASS CONTRAST MATERIAL FINAL G9638 LEONEL LICEA REPORTS 7 MEDICAL W/O DOC IMAGING 1/MORE ASS DOSE REDUCTION TECH RADEX 87458 DARCIEANA NATHAN SPINE 7 LUMBOSACR CHIROPRAC AL 2/3 TIC CENTE VIEWS RADEX 20906 CYNTHIANA NATHAN SPINE 7 CERVICAL CHIROPRAC 2 OR 3 TIC CENTE VIEWS APPL 40126 EMERSON NATHAN MODALITY 7 1/> AREAS CHIROPRAC ELEC TIC CENTE STIMJ UNATTENDE D CHIROPRAC 40807 EMERSON NATHAN TIC 7 MANIPULAT CHIROPRAC RUPA TX TIC CENTE SPINAL 3-4 REGIONS DRUG TEST 81389 LINETTE SUE PRSMV 7 [facility] QUAL DIR INC INC OPTICAL OBS PER DAY DRUG TEST 40709 LAVINIA KATE PRSMV 7 NORMA TOWNSEND MD,[facility] CHEMISTRY ANALYZERS RADEX 27029 LINETTE SUE ABDOMEN 7 [facility] COMPL INC INC W/DCBTS&/ ERC VIEWS IAADIADOO 35216 LINETTE SUE 7 [facility] INFLUENZA INC INC RADIOLOGI 98805 LEONEL ZULLY C EXAM 7 MEDICAL CHEST 2 IMAGING VIEWS ASS FRONTAL&L ATERAL DRUG TEST 81847 LINETTE SUE PRSMV 7 [facility] QUAL DIR INC INC OPTICAL OBS PER DAY DRUG TEST G0480 LINETTE SUE DEFINITV [address] [facility] [address] [address] [facility] [address] ID INC INC METH P DAY 1-7 DRUG CL BASIC 08016 LINETTE LINETTE METABOLIC 7 [facility] PANEL INC INC CALCIUM TOTAL HEMOGLOBI 90275 LINETTE SUE N 7 [facility] GLYCOSYLA INC INC SONG A1C COLLECTIO 84490 LINETTE SUE N VENOUS 7 [facility] BLOOD INC INC VENIPUNCT URE HEPATIC 02249 LINETTE LINETTE FUNCTION 7 [facility] PANEL INC INC LIPID 56057 LINETTE SUE PANEL 7 [facility] INC INC ECG 07482 LINETTE LINETTE ROUTINE 7 [facility] ECG INC INC W/LEAST 12 LDS TRCG ONLY W/O I&R DRUG TEST G0480 LINETTE SUE DEFINITV [address] [facility] [address] ID INC INC METH P DAY 1-7 DRUG CL DRUG TEST 00610 LINETTE SUE PRSMV 7 [facility] QUAL DIR INC INC OPTICAL OBS PER DAY COLLECTIO 30618 LINETTE SUE N VENOUS 7 [facility] [place] [address] LINETTE SUE TROPONIN 7 [facility] QUANTITAT INC INC RUPA COMPREHEN 14585 LINETTE SUE SIVE 7 [facility] METABOLIC INC INC PANEL NATRIURET 50987 LINETTE SUE IC 7 [facility] [place] [address] LINETTE SUE LIPASE 7 [facility] INC INC FIBRIN 42838 LINETTE SUE DGRADJ 7 [facility] PRODUCTS INC INC D-DIMER QUAL/SEMI TODD CREATINE 77938 LINETTE SUE KINASE 7 [facility] [place] [address] LINETTE SUE AMYLASE 7 [facility] INC INC CREATINE 46375 LINETTE SUE KINASE MB 7 [facility] FRACTION INC INC ONLY FINAL RPT G[address]/MRI 7 MEDICAL CHEST/NCK IMAGING /U/S NO ASS THR NOD<1.[address] THORAX 91708 LEONEL DELAROSA 7 MEDICAL W/CONTRAS IMAGING T ASS MATERIAL ECG 45036 LINETTE SUE ROUTINE 7 [facility] ECG INC INC W/LEAST 12 LDS TRCG ONLY W/O I&[place] [address] LINETTE SUE ANGIOGRAP 7 [facility] HY CHEST INC INC W/CONTRAS T/NONCONT RAST FINAL G9638 LEONEL DELAROSA REPORTS 7 MEDICAL W/O DOC IMAGING 1/MORE ASS DOSE REDUCTION TECH BLOOD 21782 LINETTE SUE COUNT 7 [facility] COMPLETE INC INC AUTO&[place] [address] LEONEL DELAROSA ABDOMEN 7 MEDICAL W/O IMAGING CONTRAST ASS MATERIAL URNLS DIP 97962 LINETTE LINETTE 7 [facility] STICK/TAB INC [place] [address] LINETTE SUE ANGIOGRAP 7 [facility] HY INC INC ABDOMEN W/CONTRAS T/NONCONT RAST RADIOLOGI 17500 [facility] C EXAM 7 MEDICAL CHEST 2 IMAGING VIEWS ASS FRONTAL&L ATERAL FINAL G9551 LEONEL DELAROSA REPR ABD 7 MEDICAL IMAG STS IMAGING W/O ASS INCIDNT FND LES NTD: ECG 53208 LINETTE SUE ROUTINE 7 [facility] W/LEAST P P 12 LDS I&R ONLY HEPATITIS 14250 LINETTE SUE C 6 [facility] ANTIBODY INC INC HEPATITIS 83013 LINETTE SUE A 6 [facility] ANTIBODY INC INC HAAB BLOOD 69995 LINETTE SUE COUNT 6 [facility] COMPLETE INC INC AUTO&AUTO DIFRNTL WBC COLLECTIO 54926 LINETTE SUE N VENOUS 6 [facility] [place] [address] LINETTE SUE AMYLASE 6 [place] [address] LINETTE SUE LIPASE 6 [place] [address] LINETTE SUE THYROID 6 [facility] STIMULATI [place] [address] LINETTE SUE THYROXINE 6 [facility] TOTAL INC INC HEMOGLOBI 28503 LINETTE SUE N 6 [facility] GLYCOSYLA INC INC SONG A1C COMPREHEN 53985 LINETTE SUE SIVE 6 [facility] [address] LINETTE SUE HEPATITIS 6 [facility] B INC INC SURFACE ANTIGEN DRUG TST G0477 LINETTE SUE PRESUMP;C 6 [facility] PBL BEING INC INC READ DC OPT OBV ONLY HEPATITIS 13358 LINETTE SUE B CORE 6 [facility] ANTIBODY INC INC HBCAB TOTAL HEPATITIS 19226 LINETTE Agarwal SURF 6 [facility] ANTIBODY INC INC HBSAB DRUG TST G0477 LINETTE SUE PRESUMP;C 6 [facility] PBL BEING INC INC READ DC OPT OBV ONLY DRUG TEST G0479 LAVINIA TOWNSEND 6 TOWNSEND, PRESUMP;I ,PSC NSTRUMENT ED CHEMISTRY ANLYZER ECG 92225 LINETTE GREENEDONNIE ROUTINE 6 [facility] W/LEAST P 12 LDS I&R ONLY COLLECTIO 36400 LINETTE SUE N VENOUS 6 [facility] BLOOD [place] [address] LINETTE SUE TROPONIN 6 [facility] QUANTITAT INC INC RUPA RADIOLOGI 04889 LINETTE SUE C 6 [facility] EXAMINATI INC INC ON CHEST SINGLE VIEW FRONTAL COMPREHEN 15504 LINETTE SUE SIVE 6 [facility] METABOLIC INC INC PANEL NATRIURET 02582 LINETTE SUE IC 6 [facility] [place] [address] LINETTE SUE LIPASE 6 [facility] INC INC FIBRIN 09496 LINETTE SUE DGRADJ 6 [facility] PRODUCTS INC INC D-DIMER QUAL/[place] [address] LINETTE SUE AMYLASE 6 [facility] INC INC CREATINE 64903 LINETTE SUE KINASE MB 6 [facility] FRACTION INC INC ONLY CREATINE 98263 LINETTE SUE KINASE 6 [facility] TOTAL INC INC BLOOD 19963 LINETTE SUE COUNT 6 [facility] COMPLETE INC INC AUTO&AUTO DIFRNTL WBC CT THORAX 79407 OHIO ZULLY 6 MEDICAL BUBBA W/[place] [address] LINETTE SUE ANGIOGRAP 6 [facility] HY CHEST INC INC W/CONTRAS T/NONCONT RAST ECG 92948 LINETTE SUE ROUTINE 6 [facility] ECG INC INC W/LEAST 12 LDS TRCG ONLY W/O I&R DRUG TST G0477 LINETTE LINETTE PRESUMP;C 6 [facility] PBL BEING [place] [address] LINETTE SUE HEAD/BRAI 6 [facility] N W/O INC INC CONTRAST MATERIAL THERAPEUT 24286 LINETTE SUE IC 6 [facility] PROPHYLAC INC INC TIC/DX INJECTION SUBQ/[place] [address] LINETTE SUE CERVICAL 6 [facility] SPINE W/O INC INC CONTRAST MATERIAL RADEX 30556 LINETTE SUE SHOULDER 6 [facility] COMPLETE INC INC MINIMUM [place] [address] [facility], SETTEMBRE SURG 6 [facility] PATHOLOGY GROSS&CHARLEY ROSCOPIC EXAM COLSC FLX 80281 LINETTE SUE W/RMVL 6 [facility] OF TUMOR INC INC POLYP LESION SNARE TQ ANES 49047 [facility] LOWER 6 ANESTH INTESTINE OF THE BLUE ENDOSCOPY DISTAL DUODENUM GLUC BLD 50333 LINETTE VERMAON GLUC MNTR 6 [facility] DEV INC INC CLEARED FDA SPEC HOME USE DRUG TST G0477 [facility] PRESUMP;C 6 [facility] PBL BEING INC INC READ DC OPT OBV ONLY DRUG 72557 [facility] SCREEN 6 [facility] LIST A INC INC SINGLE DRUG CLASS METHOD COL-CHR/M 69243 [facility] S NONDRUG 6 [facility] ANALYTE INC INC CARLINE QUAL/TODD EA SPEC DRUG 41175 [facility] SCREENING 6 [facility] INC INC BENZODIAZ EPINES 1-12 LIPID 64765 [facility] PANEL 6 [facility] INC INC COLLECTIO 34963 [facility] N VENOUS 6 [facility] BLOOD INC INC VENIPUNCT URE BLOOD 75273 [facility] COUNT 6 [facility] COMPLETE INC INC AUTO&AUTO DIFRNTL WBC PROSTATE G0103 [facility] CANCER 6 [facility] SCREENING INC INC ; [place] [address] [facility] S[facility] THYROID 6 [facility] STIMULATI INC INC NG HORMONE TSH HEMOGLOBI 28747 [facility] S[facility] N 6 [facility] GLYCOSYLA [place] [address] [facility] S[facility] THYROXINE 6 [facility] TOTAL INC INC COMPREHEN 40843 [facility] S[facility] SIVE 6 [facility] METABOLIC INC INC PANEL THERAPEUT 16027 [facility] IC 6 PHYSICIAN CHARLEY PROPHYLAC S GROUP TIC/DX INJECTION SUBQ/IM INJECTION J1885 [facility] 6 PHYSICIAN CHARLEY KETOROLAC S GROUP TROMETHAM INE PER 15 MG INJECTION J1100 [facility] 6 PHYSICIAN CHARLEY DEXAMETHO S GROUP SONE SODIUM PHOSPHATE 1 MG INJECTION J1100 [facility] 6 PHYSICIAN CHARLEY DEXAMETHO S GROUP SONE SODIUM PHOSPHATE 1 MG THERAPEUT 02302 [facility] IC 6 PHYSICIAN CHARLEY PROPHYLAC S GROUP TIC/DX INJECTION SUBQ/IM THERAPEUT 12059 [facility] IC 6 PHYSICIAN EUG PROPHYLAC S GROUP TIC/DX INJECTION SUBQ/IM INJECTION J0696 [facility] 6 PHYSICIAN EUG CEFTRIAXO S GROUP NE SODIUM PER 250 MG INJECTION 23791 BOYD LE LB 6 MD JERMAINE, SINGLE/ML PSC T TRIGGER POINT 1/2 MUSCLES DRUG TST G0477 [facility] VERMAON PRESUMP;C 6 [facility] PBL BEING INC INC READ DC OPT OBV ONLY DRUG TEST G0481 [facility] DEFINITV [address] [facility] [address] ID INC INC METH P DAY 8-14 DRUG CL INJECTION A9576 [facility] SUE 6 [facility] GADOTERID INC INC OL PROHANCE MULTIPACK PER ML MRI BRAIN 67931 [facility]MA[facility] BRAIN 6 [facility] STEM W/O INC INC W/CONTRAS T MATERIAL COLLECTIO 92696 [facility] S[facility] N VENOUS 6 [facility] [place]LO[place] [address] [facility] S[facility] UREA 6 [facility] NITROGEN INC INC QUANTITAT RUPA CREATININ 12948 [facility]MAON E BLOOD 6 [facility] INC INC MRI BRAIN 46041 [facility] BRAIN 6 [facility] STEM W/O INC INC CONTRAST MATERIAL DUPLEX 35920 [facility] SCAN 6 [facility] EXTRACRAN INC INC IAL ART COMPL BI [facility] G0463 [facility] S[facility] OUTPATIEN 6 [facility] T CLIN [place] INC VISIT ASSESS & [place] [address] LIN[facility] BECKETT CO HEAD/BRAI 6 [facility] HEALTH N W/O INC DEPARTMEN CONTRAST T MATERIAL BASIC 69954 [facility] S[facility] METABOLIC 6 [facility] PANEL INC INC CALCIUM TOTAL THER 36187 [facility] PROPH/DX 6 [facility] NJX IV INC INC PUSH SINGLE/1S T SBST/DRUG INJECTION J2405 [facility]UE 6 [facility] ONDANSETR INC INC ON HCL PER 1 MG BLOOD 34118 [facility] COUNT 6 [facility] COMPLETE INC INC AUTO&AUTO DIFRNTL WBC THERAPEUT 02707 [facility] S[facility] IC 6 [facility] INJECTION INC INC IV PUSH EACH NEW DRUG FLUOR 93710 BOYD LE LB NEEDLE/CA 6 MD JERMAINE, TH PSC SPINE/PAR ASPINAL DX/THER ADDON INJECTION J1030 [facility]UE 6 [facility] METHYLPRE INC INC DNISOLONE ACETATE 40 MG NJX 18256 BOYD LE LB DX/THER 6 MD JERMAINE, SBST PSC EPIDURAL/ SUBRACH CERV/THOR ACIC LOCM Q9966 LINETTE LINETTE [phone] 6 [facility] MG/ML INC INC IODINE CONCENTRA TION PER ML HEPATOBIL 17973 LINETTE SUE SYST 6 [facility] IMAG INC INC INC GB W/PHARMA INTERVENJ TECHNETIU A9537 LINETTE SUE M TC-99M 6 [facility] MEBROFENI INC INC N DX UP TO 15 MCI INJECTION J2805 LINETTE SUE 6 [facility] SINCALIDE INC INC 5 [place] [address] OH[facility] DELAROSA ALL ABDOMINAL 5 MEDICAL REAL IMAGING TIME [place] W/[place] [address] LINETTE SUE STREPTOCO 5 [facility] CCUS INC INC GROUP A CUL BACT 65728 LINETTE SUE XCPT 5 [facility] URINE INC INC BLOOD/STO OL AEROBIC ISOL GLUC BLD 68666 LINETTE SUE GLUC MNTR 5 [facility] DEV INC [place] [address] LINETTE SUE RETROPERI 5 [facility] TONEAL INC [place] W/[place] [address] OH[place] ZULLY RETROPERI 5 MEDICAL BUBBA TONEAL IMAGING REAL TIME ASS W/IMAGE LIMITED APPL 11534 LINETTE SUE MODALITY 5 [facility] 1/> AREAS INC INC ULTRASOUN D EA 15 MIN APPLICATI 46924 LINETTE SUE ON 5 [facility] MODALITY INC INC 1/> AREAS HOT/COLD PACKS APPL 04163 LINETTE SUE MODALITY 5 [facility] 1/> AREAS INC INC 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 L E-STIM G0283 LINETTE SUE 1/> AREAS 5 [facility] OTH THAN INC INC WND CARE PART TX PLAN PHYSICAL 41650 LINETTE SUE THERAPY 5 [facility] EVALUATIO INC INC N OPHTH 17671 [facility] 5 XM&EVAL COMPRHNSV ESTAB PT 1/> INJECTION J1030 LINETTE SUE 5 [facility] METHYLPRE INC INC DNISOLONE ACETATE 40 MG INJECTION 13823 BOYD ASHER 5 MD JERMAINE, SINGLE/ML PSC T TRIGGER POINT 1/2 MUSCLES INJECTION 94185 [facility]ETTE SUE 5 [facility] SINGLE/ML INC INC T TRIGGER POINT 3/> MUSCLES PSYCHIATR 61120 COMPREHEN MINEER IC 5 D INC EDELMIRA DIAGNOSTI C EVALUATIO N INJECTION 97897 FREDY Fabian MD SINGLE/ML T TRIGGER POINT 1/2 MUSCLES INJECTION J1030 LINETTEKING SUE 5 [facility] METHYLPRE INC INC DNISOLONE ACETATE 40 MG INJECTION LINETTE SUE 5 [facility] SINGLE/ML INC INC T TRIGGER POINT 3/> [place] [address] [place] BEINEKE HEAD/BRAI 5 MEDICAL DAREN N W/O IMAGING CONTRAST ASS MATERIAL RADEX 27449 [facility] BEINE SPINE 5 MEDICAL DAREN THORACIC IMAGING [address] [place] [address] [facility] CERVICAL 5 MEDICAL DAREN SPINE W/O IMAGING CONTRAST ASS MATERIAL ROGELIO 14291 LINETTE LEIVA POST-VOID 5 [facility] RES[facility]UAL P URINE&/BL [facility] G0463 LINETTE SUE OUTPATIEN 5 [facility] T CLIN INC INC VISIT ASSESS & MGMT [place] ECG 54939 LINETTE SUE ROUTINE 5 [facility] ECG INC INC W/LEAST 12 LDS TRCG ONLY W/O I&R ECG 90868 CARDIOVAS CHAYO ROUTINE 5 CULAR MAT ECG CONSULTAN W/LEAST TS O 12 LDS I&R ONLY ECHO 06614 LINETTE SUE TTHRC R-T 5 [facility] 2D INC INC W/WOM-MOD E COMPL SPEC&COLR D MYOCARDIA 44303 LINETTE SUE L SPECT 5 [facility] MULTIPLE INC INC STUDIES CV STRS 82794 LINETTE SUE TST 5 [facility] XERS&/OR INC INC RX CONT ECG TRCG ONLY CV STRS 28136 [facility] F[facility] TST 5 PHYSICIAN VENITA XERS&/OR S GROUP RX CONT ECG W/O I&R TECHNETIU A9500 LINETTE Barrientos TC-99M 5 [facility] SESTAMIBI INC INC DX PER STUDY DOSE ECG 28429 LINETTE SUE ROUTINE 5 [facility] ECG INC INC W/LEAST 12 LDS TRCG ONLY W/O I&R ECG 46621 CARDIOVAS CHAYO ROUTINE 5 CULAR MAT ECG CONSULTAN W/LEAST TS O 12 LDS I&R ONLY LIPID 35979 LINETTE SUE PANEL 5 [facility] INC INC BASIC 56128 LINETTE SUE METABOLIC 5 [facility] [place] [address] LINETTE SUE THYROID 5 [facility] STIMULATI [place] [address] LINETTE SUE THYROXINE 5 [facility] TOTAL INC INC CREATINE 99702 LINETTE SUE KINASE 5 [facility] TOTAL INC INC CREATINE 07614 LINETTE SUE KINASE MB 5 [facility] FRACTION INC INC ONLY COMPREHEN 58178 LINETTE SUE SIVE 5 [facility] METABOLIC INC INC PANEL CRITICAL [address]146 LINETTE [address] CARE 5 [facility] ED P P PATIENT INIT 30-[address] [place] [address] LEONEL BEINEKE HEAD/BRAI 5 MEDICAL DAREN N W/O IMAGING CONTRAST ASS MATERIAL AMB A0427 DAVID HERNANDEZ SERVICE 5 AMBULANCE AMBULANCE ALS SERVICE SERVICE EMERGENCY TRANSPORT LEVEL 1 [place] [address] LINETTE SUE TROPONIN 5 [facility] QUANTITAT INC INC RUPA GROUND A0425 DAVID HERNANDEZ MILEAGE 5 AMBULANCE AMBULANCE PER SERVICE SERVICE STATUTE MILE ECG 45142 LINETTE SUE ROUTINE 5 [facility] ECG INC INC W/LEAST 12 LDS TRCG ONLY W/O I&R RADIOLOGI 95557 [facility] [place] C 5 MEDICAL DAREN EXAMINATI IMAGING ON CHEST ASS SINGLE VIEW FRONTAL BLOOD 90455 LINETTE SUE COUNT 5 [facility] COMPLETE INC INC AUTO&AUTO DIFRNTL WBC ECG 28183 LINETTE SUE ROUTINE 5 [facility] W/LEAST P P 12 LDS I&[place] [address] [facility] [place]A ANGIOGRAP 4 MEDICAL BUBBA HY IMAGING ABDOMEN ASS W/CONTRAS T/NONCONT RAST LOCM Q9967 LINETTE SUE 300-399 4 [facility] MG/ML INC INC IODINE CONCENTRA TION PER ML COLLECTIO 94561 LINETTE SUE N VENOUS 4 [facility] [place] [address] LINETTE SUE HEAD/BRAI 4 [facility] N W/O INC INC CONTRAST MATERIAL CREATININ 62476 LINETTE SUE E BLOOD 4 [place] [address] LINETTE SUE UREA 4 [facility] NITROGEN INC INC QUANTITAT RUPA THERAPEUT 64688 [facility] CHAGO IC 4 PHYSICIAN CHARLEY PROPHYLAC S GROUP TIC/DX INJECTION SUBQ/IM INJECTION J0696 [facility] CHAGO 4 PHYSICIAN CHARLEY CEFTRIAXO S GROUP NE SODIUM PER 250 MG INJECTION J1040 [facility] 4 PHYSICIAN PHYSICIAN METHYLPRE S GROUP S GROUP DNISOLONE ACETATE 80 MG RADIOLOGI 03401 [facility] [place] [place] [place]A C 4 MEDICAL BUBBA EXAMINATI IMAGING ON CHEST ASS SINGLE VIEW FRONTAL FOR DIAB A5512 [facility] ONLY MX 4 DNSITY INSRT DIR FORMD PRFAB EA DIAB ONLY A5500 [facility] FIT CSTM 4 PREP&SPL SHOE MX DNSITY INSRT THERAPEUT 18266 LINETTE SUE IC 4 [facility] PROPHYLAC INC INC TIC/DX INJECTION SUBQ/IM CT LUMBAR 41055 ZULLY ZULLY SPINE 4 BUBBA BUBBA W/O CONTRAST MATERIAL THER 23698 LINETTE SUE PROPH/DX 4 [facility] NJX IV INC INC PUSH SINGLE/1S T SBST/[place] [address] ZULLY ZULLY ABDOMEN & 4 BUBBA BUBBA PELVIS W/O CONTRST 1/> BODY RE BLOOD 61387 LINETTE SUE COUNT 4 [facility] COMPLETE INC INC AUTO&[place] [address] LINETTE SUE ABDOMEN & 4 [facility] PELVIS INC INC W/O CONTRAST MATERIAL THER 96733 LINETTE SUE PROPH/DX 4 [facility] NJX IV INC INC PUSH SINGLE/1S T SBST/DRUG ECG 86298 LINETTE SUE ROUTINE 4 [facility] ECG INC INC W/LEAST 12 LDS TRCG ONLY W/O I&R COMPREHEN 39486 LINETTE SUE SIVE 4 [facility] METABOLIC INC INC PANEL THROMBOPL 92185 LINETTE SUE ASTIN 4 [facility] TIME INC INC PARTIAL PLASMA/[place] [address] LINETTE SUE TROPONIN 4 [facility] QUANTITAT INC INC RUPA PROTHROMB 82035 LINETTE SUE IN TIME 4 [facility] INC INC FIBRIN 21157 LINETTE SUE DGRADJ 4 [facility] PRODUCTS INC INC D-DIMER QUAL/SEMI TODD CREATINE 13267 LINETTE SUE KINASE 4 [facility] TOTAL INC INC CREATINE 59178 LINETTE SUE KINASE MB 4 [facility] FRACTION INC INC ONLY RADIOLOGI 50798 LINETTE SUE C EXAM 4 [facility] CHEST 2 INC INC VIEWS FRONTAL&L ATERAL ECG 70104 WARE WARE ROUTINE 4 BRO BRO ECG W/LEAST 12 LDS I&R ONLY DRUG SCR G0434 VITA HAM VITA HAM NOT 4 CHROMATOG RAPHIC; ANY NUMBER PT ENC COMPREHEN 18429 LINETTE SUE SIVE 3 [facility] [place] [address] LINETTE SUE THYROID 3 [facility] STIMULATI INC INC NG HORMONE TSH BLOOD 42811 LINETTE SUE COUNT 3 [facility] COMPLETE INC INC AUTO&AUTO DIFRNTL WBC IM ADM 99869 MCKEMIE MCKEMIE PRQ ID 3 JR AREN YOUNGER SUBQ/IM NJXS 1 VACCINE INJECTION J3301 MCKEMIE MCKEMIE 3 JR AREN YOUNGER TRIAMCINO LONE ACETONIDE NOS 10 MG ADMINISTR G0008 MCKEMIE MCKEMIE ATION OF 3 JR AREN YOUNGER INFLUENZA VIRUS VACCINE IM ADM 87737 MCKEMIE MCKEMIE PRQ ID 3 JR AREN YOUNGER SUBQ/IM NJXS EA VACCINE IIV3 29347 MCKEMIE MCKEMIE VACCINE 3 JR AREN YOUNEGR SPLIT VIRUS 0.5 ML DOSAGE IM USE THERAPEUT 67692 LINETTE SUE IC 3 [facility] PROPHYLAC INC INC TIC/DX INJECTION SUBQ/IM LIPID 60006 LINETTE SUE PANEL 3 [facility] [place] [address] LINETTE SUE THYROID 3 [facility] STIMULATI INC INC NG HORMONE TSH COMPREHEN 23670 LINETTE SUE SIVE 3 [facility] METABOLIC INC INC PANEL MRI BRAIN 18482 LINETTE SUE BRAIN 3 [facility] STEM W/O INC INC W/CONTRAS T MATERIAL CREATININ 02379 LINETTE SUE E BLOOD 3 [place] [address] LINETTE SUE UREA 3 [facility] NITROGEN INC INC QUANTITAT RUPA 3D 73635 LINETTE SUE RENDERING 3 [facility] W/INTERP INC INC & POSTPROCE SS SUPERVISI ON INJECTION A9576 LINETTE SUE 3 [facility] GADOTERID INC INC OL PROHANCE MULTIPACK PER ML MRI 29446 LINETTE SUE SPINAL 3 [facility] CANAL INC INC CERVICAL W/O CONTRAST MATRL APPLICATI 01552 LINETTEKING SUE ON 3 [facility] MODALITY INC INC 1/> AREAS HOT/COLD PACKS APPL 04761 LINETTEKING SUE MODALITY 3 [facility] 1/> AREAS INC INC 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 L APPL 44143 LINETTE SUE MODALITY 3 [facility] 1/> AREAS INC INC ELEC STIMJ UNATTENDE D APPL 94103 LINETTE SUE MODALITY 3 [facility] 1/> AREAS INC INC ELEC STIMJ UNATTENDE D APPL 98913 LINETTE SUE MODALITY 3 [facility] 1/> AREAS INC INC 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 L APPL 93049 LINETTE LINETTE MODALITY 3 [facility] 1/> AREAS INC INC ULTRASOUN D EA 15 MIN APPLICATI 25824 LINETTE LINETTE ON 3 [facility] MODALITY INC INC 1/> AREAS HOT/COLD PACKS PHYSICAL 41372 LINETTE SUE THERAPY 3 [facility] EVALUATIO INC INC N INJECTION J3301 LINETTE LINETTE 3 [facility] TRIAMCINO INC INC LONE ACETONIDE NOS 10 MG THERAPEUT 93398 LINETTE SUE IC 3 [facility] PROPHYLAC INC INC TIC/DX INJECTION SUBQ/IM BLOOD 92237 LINETTE SUE OCCULT 3 [facility] PEROXIDAS INC INC E ACTV QUAL FECES 1-3 SPEC CUL BACT 28180 LINETTE SUE STOOL 3 [facility] AEROBIC INC INC ISOL SALMONELL A&[place] [address] LINETTE SUE CLOSTRIDI 3 [facility] UM INC INC DIFFICILE TOXIN SMR PRIM 40981 LINETTE SUE SRC 3 [facility] GRAM/GIEM INC INC SA STAIN BCT FUNGI/ELBA L OVA&DERRICK 92812 LINETTE SUE ITES 3 [facility] DIRECT INC INC SMEARS CONCENTRA TION & ID RADIOLOGI 94316 ZULLY ANDREA C EXAM 3 BUBBA BUBBA CHEST 2 VIEWS FRONTAL&L ATERAL RADEX 93851 ZULLY ZULLY SHOULDER 3 BUBBA BUBBA COMPLETE MINIMUM 2 VIEWS ECG 23462 JOHNY JOHNY ROUTINE 3 CAMILLA CAMILLA ECG W/LEAST 12 LDS I&[place] [address] LINETTEKING SUE TROPONIN 3 [facility] QUANTITAT INC INC RUPA CREATINE 71919 LINETTE VERMAON KINASE 3 [facility] TOTAL INC INC CREATINE 71397 LINETTE SUE KINASE MB 3 [facility] FRACTION INC INC ONLY ECG 28718 LINETTE SUE ROUTINE 3 [facility] ECG INC INC W/LEAST 12 LDS TRCG ONLY W/O I&R URNLS DIP 19837 NATHALY CRMIE 3 JR AREN JR AREN STICK/TAB LET RGNT NON-AUTO W/[place] [address] LINETTE SUE TROPONIN 3 [facility] QUANTITAT INC INC RUPA COMPREHEN 07188 LINETTE SUE SIVE 3 [facility] METABOLIC INC INC PANEL CREATINE 84763 LINETTE SUE KINASE MB 3 [facility] [place] [address] LINETTE SUE AMYLASE 3 [facility] INC INC CREATINE 32107 LINETTE VERMAON KINASE 3 [facility] [place] [address] LINETTE SUE LIPASE 3 [facility] INC INC ECG 72421 LINETTE SUE ROUTINE 3 [facility] ECG INC INC W/LEAST 12 LDS TRCG ONLY W/O I&R INJECTION J2405 LINETTE VERMAON 3 [facility] ONDANSETR INC INC ON HCL PER 1 MG URNLS DIP 21846 LINETTE LINETTE 3 [facility] STICK/TAB INC INC LET REAGENT AUTO MICROSCOP Y 3D 29543 LINETTE SUE RENDERING 3 [facility] INC INC W/INTERP& POSTPROC DIFF WORK STATION BLOOD 38389 LINETTE SUE COUNT 3 [facility] COMPLETE INC INC AUTO&[place] [address] ZULLY ZULLY ABDOMEN & 3 BUBBA BUBBA PELVIS W/O CONTRAST MATERIAL ECG 33278 CHAGO ANDERS ROUTINE 3 CHARLEY CHARLEY ECG W/LEAST 12 LDS [place] [address] LINETTE SUE INFUSION 3 [facility] THERAPY/P INC INC ROPHYLAXI S /DX 1ST TO 1 HR THERAPEUT 62762 LINETTE SUE IC 3 [facility] INJECTION INC INC IV PUSH EACH NEW DRUG BLOOD 05842 LINETTE SUE COUNT 3 [facility] COMPLETE INC INC AUTO&AUTO DIFRNTL WBC PROSTATE G0103 LINETTE SUE CANCER 3 [facility] SCREENING INC INC ; PSA TEST LIPID 39426 LINETTE SUE PANEL 3 [facility] INC INC COMPREHEN 82824 LINETTE LINETTE SIVE 3 [facility] METABOLIC INC INC PANEL ECG 02078 LINETTE MCKEMIE ROUTINE 3 [facility] ECG HOSPITAL W/LEAST P 12 LDS I&R ONLY ECG 85779 CHAGO ANDERS ROUTINE 3 CHARLEY CHARLEY ECG W/LEAST 12 LDS I&R ONLY IAADI 90478 LINETTE VERMAON INFFLUENZ 3 [facility] A A VIRUS INC INC IAADI 47239 LINETTE SUE INFLUENZA 3 [facility] B VIRUS INC INC COMPREHEN 19254 LINETTE LINETTE SIVE 3 [facility] [place] [address] LINETTE SUE TROPONIN 3 [facility] [address] LINETTE SUE LIPASE 3 [facility] INC INC BLOOD 76346 LINETTE SUE OCCULT 3 [facility] PEROXIDAS INC INC E ACTV QUAL FECES 1-3 SPEC CREATINE 84978 LINETTE SUE KINASE 3 [facility] [place] [address] LINETTE SUE AMYLASE 3 [facility] INC INC CREATINE 80273 ILNETTE SUE KINASE MB 3 [facility] FRACTION INC INC ONLY URNLS DIP 55141 LINETTE SUE 3 [facility] STICK/TAB INC INC LET REAGENT AUTO MICROSCOP Y ECG 21634 LINETTE SUE ROUTINE 3 [facility] ECG INC INC W/LEAST 12 LDS TRCG ONLY W/O I&R 3D 80170 LINETTE SUE RENDERING 3 [facility] INC INC W/INTERP& POSTPROC DIFF WORK STATION BLOOD 30021 LINETTE USE COUNT 3 [facility] COMPLETE INC INC AUTO&[place] [address] ZULLY ZULLY ABDOMEN & 3 BUBBA BUBBA PELVIS W/O CONTRAST MATERIAL RADIOLOGI 37693 LINETTE SUE C 3 [facility] EXAMINATI INC INC ON CHEST SINGLE VIEW FRONTAL UROGRAPHY 62159 LEONEL ZULLY IV W/WO 2 MEDICAL BUBBA KUB W/WO IMAGING TOMOGRAPH ASS Y URETHROCY 04503 LINETTE SUE STOGRAPHY 2 [facility] INC INC RETROGRAD E RS&I ANES 51050 [facility] TRANSURET 2 ANESTH LOLY HRAL OF THE W/URETHRO BLUE CYSTOSCOP Y NOS CYSTOURET 37381 CALI LEIVA HROSCOPY 2 ART ART CYSTO 79418 LINETTEKING SUE BLADDER 2 [facility] W/URETERA [place] [address] LINETTE SUE UREA 2 [facility] NITROGEN INC INC QUANTITAT RUPA CREATININ 41260 LINETTE SUE E BLOOD 2 [facility] INC INC URNLS DIP 14376 LEIVA LEIVA 2 ART ART STICK/TAB LET RGNT NON-AUTO W/O MICRSCP LOCM Q9967 LINETTE VERMAON 300-399 2 [facility] MG/ML INC [place] [address] LEONEL ZULLY ABDOMEN & 2 MEDICAL BUBBA PELVIS IMAGING W/O ASS CONTRST 1/> BODY RE PROSTATE G0103 LINETTE LINETTE CANCER 2 [facility] SCREENING INC INC ; PSA TEST BASIC 76622 LINETTE SUE METABOLIC 2 [facility] PANEL [place] [address] LINETTE SUE TESTOSTER 2 [facility] ONE TOTAL INC INC URNLS DIP 08727 CALI LEIVA 2 ART ART STICK/TAB LET RG[place]-AUT[place] W/[place] [address] LINETTE SUE RETROPERI 2 [facility] TONEAL INC INC REAL TIME W/IMAGE COMPLETE URNLS DIP 02061 JAMA YUN 2 NAN NAN STICK/TAB LET RGNT NON-AUTO W/O MICRSCP COMPREHEN 10096 LINETTE SUE SIVE 2 [facility] METABOLIC INC INC PANEL HEMOGLOBI 19165 LINETTE SUE N 2 [facility] GLYCOSYLA INC INC SONG A1C LIPID 12875 LINETTE SUE PANEL 2 [facility] INC INC URNLS DIP 13998 JAMA YUN 2 NAN NAN STICK/TAB LET RGNT NON-AUTO W/O MICRSCP OPHTHALMO 38265 NICK ROMERO SCPY 2 JAM JAM EXTENDED RETINAL DRAWING I&R 1ST DETERMINA 68030 NICK ROMERO TION 2 JAM JAM REFRACTIV E STATE MYOCARDIA 13692 LAUREN AGUILAR L SPECT 2 VENITA VENITA MULTIPLE STUDIES MYOCARDIA 75104 LINETTE SUE L SPECT 2 [facility] MULTIPLE INC INC STUDIES CV STRS 65071 LINETTE SUE TST 2 [facility] XERS&/OR INC INC RX CONT ECG TRCG ONLY CV STRS 36787 [facility] TST 2 XERS&/OR RX CONT ECG W/O I&R CV STRS 90326 LINETTE SUE TST 2 [facility] RX CONT P P ECG I&R ONLY TECHNETIU A9502 LINETTE Barrientos TC-99M 2 [facility] TETROFOSM INC INC IN DX PER STUDY DOSE OBSERVATI 02921 JOHNY MCCLAIN ON CARE 2 CAMILLA [place] [address] LINETTE SUE TROPONIN 2 [facility] QUANTITAT INC INC RUPA CREATINE 88907 LINETTE SUE KINASE 2 [facility] TOTAL INC INC CREATINE 88317 LINETTE SUE KINASE MB 2 [facility] FRACTION INC INC ONLY HOSPITAL G0378 LINETTE SUE OBSERVATI 2 [facility] ON INC INC SERVICE PER [facility] G0378 LINETTE SUE OBSERVATI 2 [facility] ON INC INC SERVICE PER HOUR 28602 LINETTE SUE RENDERING 2 [facility] W/INTERP INC INC & POSTPROCE SS SUPERVISI ON RADIOLOGI 71497 LINETTE SUE C 2 [facility] EXAMINATI INC INC ON CHEST SINGLE VIEW FRONTAL BLOOD 49487 LINETTE SUE COUNT 2 [facility] COMPLETE INC INC AUTO&AUTO DIFRNTL WBC INITIAL 65787 MCKEMIE MCKEMIE OBSERVATI 2 JR AREN JR AREN ON CARE/DAY 30 MINUTES ECG 63654 LINETTE SUE ROUTINE 2 [facility] ECG INC INC W/LEAST 12 LDS TRCG ONLY W/O I&R CREATINE 56956 LINETTE SUE KINASE MB 2 [facility] FRACTION INC INC ONLY CREATINE 11674 LINETTE SUE KINASE 2 [facility] [place] [address] LINETTE SUE LIPASE 2 [place] [address] LINETTE SUE TROPONIN 2 [facility] QUANTITAT INC INC RUPA BASIC 98061 LINETTE SUE METABOLIC 2 [facility] PANEL INC INC CALCIUM TOTAL COMPREHEN 25036 LINETTE SUE SIVE 2 [facility] [place] [address] LEONEL MILLERUTCHER HEAD/BRAI 2 MEDICAL BUBBA N W/O IMAGING CONTRAST ASS MATERIAL CT ORBIT 81844 LEONEL ZULLY SELLA/POS 2 MEDICAL BUBBA T IMAGING FOSSA/EAR ASS W/O CONTRAST MATRL ECG 54130 BETH CAMPOS ROUTINE 2 III AREN III AREN ECG W/LEAST 12 LDS I&R ONLY RHYTHM 26824 LINETTE SUE ECG 1-3 2 [facility] LEADS INC INC TRACING ONLY W/O I&R PRESSURIZ 85239 [facility] ED/NONPRE 2 [facility] SSURIZED INC INC INHALATIO N TREATMENT [facility] [address] EDGE DONNIE EDGE DONNIE MICROGRAP 2 HIC H/N/H/F/G 1ST STAGE 5 BLOCKS ANES 65927 [place] MAJORS G INTEG 2 ANESTHESI MUSC & A ASSOC L NRV HEAD NECK&POST ERIOR TRUNK ADJT TIS 45381 OD[facility]YS MORROW LB TRNSFR/RE 2 ARRGMT E/N/E/L DFCT 10 SQ CM/< SUTR WND 53923 OD[facility] M[facility]ROW LB EYELID/MA 2 RGIN/TARS US/CONJUN C FULL THICK BLOOD 80434 [facility] COUNT 2 [facility] COMPLETE INC INC AUTO&AUTO DIFRNTL WBC LIPID 31338 [facility] PANEL 2 [facility] INC INC HEMOGLOBI 59961 [facility] SUE N 2 [facility] GLYCOSYLA INC INC SONG A1C COMPREHEN 98496 [facility] S[facility] SIVE 2 [facility] [place] [address] [facility] HEAD/BRAI 2 [facility] N W/O INC INC CONTRAST MATERIAL BASIC 61704 [facility] METABOLIC 2 [facility] PANEL INC INC CALCIUM TOTAL CREATINE 98046 [facility] S[facility] KINASE 2 [facility] TOTAL INC INC CREATINE 02555 [facility] KINASE MB 2 [facility] FRACTION INC INC ONLY URNLS DIP 41965 [facility] SUE 2 [facility] STICK/TAB INC INC LET REAGENT AUTO MICROSCOP Y ECG 19679 [facility] ROUTINE 2 [facility] ECG INC INC W/LEAST 12 LDS TRCG ONLY W/O I&R BLOOD 69099 [facility] COUNT 2 [facility] COMPLETE INC INC AUTO&AUTO DIFRNTL WBC 3D 37388 [facility] RENDERING 2 [facility] W/INTERP INC INC & [place] [address] [facility] S[facility] TROPONIN 2 [facility] QUANTITAT INC INC RUPA RHYTHM 84651 [facility] SUE ECG 1-3 2 [facility] LEADS INC INC TRACING ONLY W/O I&R ECG 18488 [place] ROUTINE 2 III AREN III AREN ECG W/LEAST 12 LDS I&[place] [address] ZULLY ZULLY MAXILLOFA 2 BUBBA BUBBA CIAL W/O CONTRAST MATERIAL RADIOLOGI 78981 ZULLY ZULLY C EXAM 2 BUBBA BUBBA CHEST 2 VIEWS FRONTAL&L ATERAL RHYTHM 04486 [facility] ECG 1-3 1 [facility] LEADS INC INC TRACING ONLY W/O I&R PRESSURIZ 31383 [facility] ED/NONPRE 1 [facility] SSURIZED INC INC INHALATIO N TREATMENT ECG 78959 BARAHONA MICHELLE BARAHONA MICHELLE ROUTINE 1 ECG W/LEAST 12 LDS I&R ONLY RADIOLOGI 97129 [place] ZULLY C 1 MEDICAL BUBBA EXAMINATI IMAGING ON [place] [address] [facility] S[facility] TROPONIN 1 [facility] QUANTITAT INC INC RUPA BLOOD 58219 [facility] SUE COUNT 1 [facility] COMPLETE INC INC AUTO&AUTO DIFRNTL WBC ECG 24414 [facility] ROUTINE 1 [facility] ECG INC INC W/LEAST 12 LDS TRCG ONLY W/O I&R CREATINE 07152 LINETTE SUE KINASE MB 1 [facility] FRACTION INC INC ONLY CREATINE 54143 [facility] S[facility] KINASE 1 [facility] TOTAL INC INC COMPREHEN 21290 [facility] S[facility] SIVE 1 [facility] METABOLIC INC INC PANEL EXC 37919 ODALYS LB ODALYS LB LESION 1 EYELID W/O CLSR/W/SI MPLE DIR CLOSURE INCISIONA 78819 ODALYS LB ODALYS LB L BIOPSY 1 EYELID SKIN & LID MARGIN THERAPEUT 28654 [facility] IC 1 [facility] INTERNAL INTERNAL TIC/DX MED MED INJECTION SUBQ/IM XTRNL 69871 ODALYS MORROW LB OCULAR 1 PHOTOG W/I&R DOCMT MEDICAL PROGRE OPHTH 76050 [facility] VISION XM&EVAL COMPRHNSV ESTAB PT 1/> [place] [address] NEW LENA ABDOMINAL 1 [facility] REAL CLINIC [place] PSC W/[place] [address] NEW LENA RETROPERI 1 [facility] REAL TIME PSC W/IMAGE LIMITED LIPID 49174 COMBINED COMBINED PANEL 1 PHYSICIAN PHYSICIAN S LA S LA GENERAL 36224 COMBINED COMBINED HEALTH 1 PHYSICIAN PHYSICIAN PANEL S LA S LA HEMOGLOBI 11694 COMBINED COMBINED N 1 PHYSICIAN PHYSICIAN GLYCOSYLA S LA S LA SONG A1C MRI BRAIN 75156 [facility] BRAIN 1 MEDICAL BUBBA STEM W/O IMAGING CONTRAST ASS MATERIAL 3D 95381 [place] ZULLY RENDERING 1 MEDICAL BUBBA W/INTERP IMAGING & ASS POSTPROCE SS SUPERVISI ON MRI 78397 [facility] SPINAL 1 MEDICAL BUBBA CANAL IMAGING CERVICAL ASS W/O CONTRAST MATRL RADIOLOGI 15312 [facility] C EXAM 1 MEDICAL BUBBA CHEST 2 IMAGING VIEWS ASS FRONTAL&L ATERAL ECG 89187 [facility]ODYM[facility] CAMP[facility] ROUTINE 1 EMERGENCY III AREN ECG SERVICES W/LEAST 12 LDS I&R ONLY 3D 65810 [place] ZULLY RENDERING 1 [facility] W/INTERP IMAGING & ASS POSTPROCE SS SUPERVISI ON BLOOD 70888 [facility]UE COUNT 1 [facility] COMPLETE INC INC AUTO&[place] [address] LINETTE SUE TROPONIN 1 [facility] QUANTITAT INC INC RUPA ECG 74949 LINETTE SUE ROUTINE 1 [facility] ECG INC INC W/LEAST 12 LDS TRCG ONLY W/O I&[place] [address] LEONEL ANDREA HEAD/BRAI 1 [facility] N W/O IMAGING CONTRAST ASS MATERIAL BASIC 00424 LINETTE SUE METABOLIC 1 [facility] PANEL INC INC CALCIUM TOTAL CREATINE 84615 LINETTE SUE KINASE 1 [facility] TOTAL INC INC CREATINE 52050 LINETTE SUE KINASE MB 1 [facility] FRACTION INC INC ONLY BASIC 13996 LINETTE SUE METABOLIC 1 [facility] PANEL INC INC CALCIUM TOTAL LIPID 30387 LINETTE SUE PANEL 1 [facility] INC INC BLOOD 92051 LINETTE SUE COUNT [address] [facility] COMPLETE INC INC AUTO&AUTO DIFRNTL WBC ECHO 99678 LINETTE ANDERSEN TTHRC R-T [address] W/WOM-MOD P E COMPL SPEC&COLR D OTHER 4513 LINETTE SUE ENDOSCOPY 1 [facility] [place] [address] LINETTE SUE INFUSION 1 [facility] THERAPY INC INC PROPHYLAX IS/DX EA HOUR ESOPHAGOG 73021 LINETTE SUE ASTRODUOD 1 [facility] ENOSCOPY INC INC TRANSORAL DIAGNOSTI C SWALLOWIN 21515 LEONEL ANDREA G FUNCJ 1 [facility] W/CINERAD IMAGING IOGRAPY/V ASS IDRADIOG URNLS DIP 42993 LINETTE SUE 1 [facility] STICK/TAB INC INC LET REAGENT AUTO MICROSCOP Y ALS A0398 DAVID HERNANDEZ ROUTINE 1 [facility] AMBULANCE DISPOSABL SERVICE SERVICE E SUPPLIES GROUND A0425 DAVID HERNANDEZ MILEAGE 1 [facility]ANCE AMBULANCE PER SERVICE SERVICE STATUTE MILE ECG 11941 LINETTE SUE ROUTINE 1 [facility] ECG INC INC W/LEAST 12 LDS TRCG ONLY W/O I&R 3D 56439 LINETTE SUE RENDERING 1 [facility] INC INC W/INTERP& POSTPROC DIFF WORK STATION 3D 81844 LEONEL ZULLY RENDERING 1 MEDICAL [facility] W/INTERP IMAGING & ASS POSTPROCE SS SUPERVISI ON BLOOD 92796 LINETTE SUE COUNT 1 [facility] COMPLETE INC INC AUTO&[place] [address] LINETTE SUE TROPONIN 1 [facility] QUANTITAT INC INC RUPA RADIOLOGI 54455 LEONEL ANDREA C 1 [facility] EXAMINATI IMAGING [place] [address] LEONEL ANDREA ABDOMEN & 1 MEDICAL [facility] PELVIS IMAGING W/O ASS CONTRAST MATERIAL CREATINE 13112 LINETTE SUE KINASE MB 1 [facility] FRACTION INC INC ONLY CREATINE 05597 LINETTE SUE KINASE 1 [facility] TOTAL INC INC BASIC 91401 LINETTE SUE METABOLIC 1 [facility] [place] [address] LEONEL ANDREA HEAD/BRAI 1 MEDICAL [facility] N W/O IMAGING CONTRAST ASS MATERIAL AMB A0427 DAVID HERNANDEZ SERVICE 1 AMBULANCE AMBULANCE ALS SERVICE SERVICE EMERGENCY TRANSPORT LEVEL 1 AMB A0422 DAVID HERNANDEZ OXYGEN&O2 1 AMBULANCE AMBULANCE SUPPLIES SERVICE SERV[place] [address] LINETTE SUE INFUSION 1 [facility] THERAPY/P INC INC ROPHYLAXI S /DX 1ST TO 1 HR ECG 17550 LINETTE ANDERSEN ROUTINE 1 [facility] W/LEAST P 12 LDS I&R ONLY COMPREHEN 88096 LINETTE SUE SIVE 1 [facility] [place] [address] LINETTE SUE THYROID 1 [facility] STIMULATI INC INC NG HORMONE TSH SEDIMENTA 17423 LINETTE SUE TION RATE 1 [facility] RBC INC INC NON-AUTOM ATED [place]PHILIS 42975 LINETTE SUE TEST 1 [facility] NON-TREPO INC INC NEMAL ANTIBODY QUAL BLOOD 89982 LINETTE SUE COUNT 1 [facility] COMPLETE INC INC AUTO&AUTO DIFRNTL WBC CUL BACT 92689 LINETTE SUE AEROBIC 1 [facility] ADDL INC INC METHS DEFINITIV E EA ISOL CUL BACT 55821 LINETTE LINETTE XCPT 1 [facility] URINE INC INC BLOOD/STO OL AEROBIC ISOL SUSCEPTIB 74211 LINETTE SUE LTY STDY 1 [facility] ANTIMICRB INC INC IAL MICRO/[place] [address] LINETTE LINETTE HEAD/BRAI 0 [facility] N W/O INC INC CONTRAST MATERIAL 3D 66305 LINETTE LINETTE RENDERING 0 [facility] INC INC W/INTERP& POSTPROC DIFF WORK STATION INITIAL 73067 SAM FLORESY INPATIENT 0 JAROD OLIVERA CONSULT NEW/ESTAB PT 55 MIN LARYNGOSC 42281 SAM FLORESY OPY 0 JAROD OLIVERA FLEXIBLE DIAGNOSTI C AMB A0422 DAVID HERNANDEZ OXYGEN&O2 0 [facility]ANCE AMBULANCE SUPPLIES SERVICE SERVICE LIFE SUSTAININ G SITUATION AMB A0427 DAVID HERNANDEZ SERVICE 0 AMB[facility]ANCE AMBULANCE ALS SERVICE SERVICE [place] [address] [place] ZULLY ANGIOGRAP 0 [facility] HY CHEST IMAGING W/CONTRAS ASS T/NONCONT RAST RADIOLOGI 85556 [place] ZULLY C 0 MEDICAL [facility] EXAMINATI IMAGING ON CHEST ASS SING[place] VIEW FRONTAL MYOCARDIA 51672 [facility] FALLUJI L SPECT 0 PHYSICIAN VENITA MULTIPLE S GROUP STUDIES GROUND A0425 DAVID HERNANDEZ MILEAGE 0 AMBULANCE AMBULANCE PER SERVICE SERVICE STATUTE MILE 10936 [facility] 0 [facility] REAL TIME PSC W/IMAGE LIMITED BLOOD 81559 LINETTE SUE COUNT 0 [facility] COMPLETE INC INC AUTO&AUTO DIFRNTL WBC [facility] G0378 LINETTE SUE OBSERVATI 0 [facility] ON INC INC SERVICE PER HOUR BASIC 55398 LINETTE SUE METABOLIC 0 [facility] [place]EL [place] [address] LINETTE SUE TROPONIN 0 [facility] [place] [address] LINETTE SUE LIPASE 0 [facility] INC INC LAPAROSCO 47203 LINETTE SUE PIC 0 [facility] APPENDECT INC INC RAULITO ANESTHESI 36490 [facility]UNITY CHUY, A 0 ANESTH LALO A INTRAPERI OF THE T[facility] [place] LOWER ABD W/LAPS NOS CREATINE 09686 LINETTE SUE KINASE 0 [facility] [place] [address] LINETTE SUE AMYLASE 0 [facility] INC INC CREATINE 43551 LINETTE VERMAON KINASE MB 0 [facility] FRACTION INC INC ONLY COMPREHEN 39288 LINETTE SUE SIVE 0 [facility] METABOLIC INC INC PANEL CRITICAL 67854 [facility] EMERGENCY III, ILL/INJUR SERVICES [facility] PATIENT ASSOCIATE INIT S 30-[place] [address] LINETTE LINETTE HEAD/BRAI 0 [facility] N W/O INC INC CONTRAST MATERIAL IAADI 53983 LINETTE SUE INFFLUENZ 0 [facility] A A VIRUS INC INC IAADI 23268 LINETTE SUE INFLUENZA 0 [facility] B VIRUS INC INC HOSPITAL G0378 LINETTE VERMAON OBSERVATI 0 [facility] ON INC INC SERVICE PER HOUR LEVEL III 06705 PATHOLOGY PATHOLOGY SURG 0 & & PATHOLOGY CYTOLOGY CYTOLOGY LAB LAB GROSS&CHARLEY ROSCOPIC EXAM BLOOD 33841 LINETTE SUE COUNT 0 [facility] COMPLETE INC INC AUTO&AUTO DIFRNTL WBC 3D 29831 LEONEL ANDREA, RENDERING 0 MEDICAL OLESYA IMAGING W/INTERP& ASSOCIATE POSTPROC S DIFF WORK STATION 3D 02953 LINETTE SUE RENDERING 0 [facility] W/INTERP INC INC & POSTPROCE SS SUPERVISI ON CT PELVIS 75680 LINETTE SUE W/O 0 [facility] CONTRAST INC INC MATERIAL RADEX ABD 88484 LEONEL ANDREA, COMPL 0 MEDICAL OLESYA AQT ABD IMAGING W/S/E/D ASSOCIATE VIEWS 1 S VIEW [place] ECG 20262 LINETTE SUE ROUTINE 0 [facility] ECG INC INC W/LEAST 12 LDS TRCG ONLY W/[place] I&[place] [address] LINETTE SUE INFUSION 0 [facility] THER INC INC PROPH ADDL SEQUENTIA L TO 1 HR URNLS DIP 47189 LINETTE SUE 0 [facility] STICK/TAB INC [place] [address] LEONEL ZULLY, ABDOMEN 0 MEDICAL OLESYA W/O IMAGING CONTRAST ASSOCIATE MATERIAL S RHYTHM 85861 LINETTE SUE ECG 1-3 0 [facility] LEADS INC INC TRACING ONLY W/O I&R ECG 39995 LINETTE [place], ROUTINE 0 [facility] W/LEAST PROF SERV 12 LDS I&R ONLY LAPAROSCO 4701 LINETTE SUE PIC 0 [facility] [place] [address] LINETTE SUE INFUSION 0 [facility] THERAPY/P INC INC ROPHYLAXI S /DX 1ST TO 1 HR LIPID 18460 LINETTE SUE PANEL 0 [facility] INC INC BLOOD 40632 LINETTE SUE COUNT 0 [facility] COMPLETE INC INC AUTO&[place] [address] LINETTE SUE THYROID 0 [facility] STIMULATI INC INC NG HORMONE TSH COMPREHEN 61273 LINETTE SUE SIVE 0 [facility] METABOLIC INC [place] PANEL EGD 85017 LINETTE SUE BALLOON 9 [facility] DILATION INC INC ESOPHAGUS <30 MM DIAM SPECIAL 54981 PATHOLOGY PATHOLOGY STAIN 9 & & GROUP 1 CYTOLOGY CYTOLOGY MICROORGA LAB LAB [facility] [place] I&[place] [address] PATHOLOGY PATHOLOGY SURG 9 & & PATHOLOGY CYTOLOGY CYTOLOGY LAB LAB GROSS&[place] [address] LINETTE SUE INFUSION 9 [facility] THERAPY INC INC PROPHYLAX IS/DX EA HOUR EGD 92736 GAIL SANCHEZ, TRANSORAL 9 MEDICAL ALEXIS BIOPSY SERV SINGLE/MU FOUNDATIO LTIPLE EGD 02364 GAIL SANCHEZ, INSERT 9 MEDICAL ALEXIS GUIDE SERV WIRE [place] [address] LINETTE SUE INFUSION 9 [facility] THERAPY/P INC INC ROPHYLAXI S /DX 1ST TO 1 HR DILATION 4292 LINETTE SUE OF 9 [facility] ESOPHAGUS INC INC ESOPHAGOG 4516 LINETTE SUE ASTRODUOD 9 [facility] ENOSCOPY INC INC WITH CLOSED BIOPSY HEPATBL 43310 LINETTE SUE DUX SYS 9 [facility] [place] [address] LEONEL ZULLY, ABDOMINAL 9 MEDICAL OLESYA REAL IMAGING TIME ASSOCIATE W/[place] [address] [place], RETROPERI 9 [facility] A REAL TIME PSC W/IMAGE LIMITED ECG 21659 LINETTE SUE ROUTINE 9 [facility] ECG INC INC W/LEAST 12 LDS TRCG ONLY W/O I&R LIPID 57318 LINETTE SUE PANEL 9 [facility] INC INC RADIOLOGI 87083 LINETTE SUE C 9 [facility] EXAMINATI INC INC ON CHEST SINGLE VIEW FRONTAL 3D 53113 LINETTE SUE RENDERING 9 [facility] W/INTERP INC INC & [place] [address] LINETTE SUE ANGIOGRAP 9 [facility] HY CHEST INC INC W/CONTRAS T/NONCONT RAST BLOOD 97971 LINETTE SUE COUNT 9 [facility] COMPLETE INC INC AUTO&AUTO DIFRNTL WBC CREATINE 10454 LINETTE SUE KINASE MB 9 [facility] FRACTION INC INC ONLY CREATINE 18370 LINETTE SUE KINASE 9 [facility] [place] [address] LINETTE SUE TROPONIN 9 [facility] [place] [address] LINETTE SUE HEAD/BRAI 9 [facility] N W/O INC INC CONTRAST MATERIAL BASIC 62251 LINETTE SUE METABOLIC 9 [facility] PANEL INC INC CALCIUM TOTAL COMPREHEN 88891 LINETTE SUE SIVE 9 [facility] [place] [address] LINETTE SUE ANGIOGRAP 9 [facility] HY INC INC ABDOMEN W/CONTRAS T/NONCONT RAST ECG 72105 LINETTE MCCLAIN, ROUTINE 9 [facility] ECG HOSPITAL W/LEAST PROF SERV 12 LDS I&R ONLY DUPLEX 10168 LEONEL BOSTON, SCAN 9 MEDICAL CHAD P EXTRACRAN IMAGING IAL ART ASSOCIATE COMPL BI S STUDY MRI BRAIN 48003 OLESYA C ZULLY, BRAIN 8 ZULLY OLESYA STEM W/O W/CONTRAS T MATERIAL COMPREHEN 14131 LINETTE SUE SIVE 8 [facility] METABOLIC INC INC PANEL LIPID 54774 LINETTE SUE PANEL 8 [place] [address] [facility] SURG 8 CLINIC CLINIC PATHOLOGY LABORATOR LABORATOR Y Y GROSS&CHARLEY ROSCOPIC EXAM SPECIAL 02581 [facility] STAIN 8 CLINIC CLINIC GROUP 1 LABORATOR LABORATOR MICROORGA Y Y NISMS [place] [address] [facility], ABDOMINAL 8 [facility] W REAL CLINIC [place] P[place] [address] [facility] RETROPERI 8 [facility] W TONEAL CLINIC REAL TIME PSC W/IMAGE LIMITED ANTIBODY 91681 [facility] HELICOBAC 8 CLINIC CLINIC TER LABORATOR LABORATOR PYLORI Y Y COLLECTIO 32004 [facility] N VENOUS 8 CLINIC CLINIC BLOOD LABORATOR LABORATOR VENIPUNCT Y Y URE RADIOLOGI 78689 LINETTE SUE C 8 [facility] EXAMINATI INC INC ON CHEST SINGLE VIEW FRONTAL THROMBOPL 93299 LINETTE SUE ASTIN 8 [facility] TIME INC INC PARTIAL PLASMA/WH OLE BLOOD BASIC 34670 LINETTE SUE METABOLIC 8 [facility] [place] [address] LINETTE SUE TROPONIN 8 [facility] QUANTITAT INC INC [place] PROTHROMB 64970 LINETTE SUE IN TIME 8 [facility] INC INC CREATINE 86848 LINETTE SUE KINASE 8 [facility] TOTAL INC INC CREATINE 48600 LINETTE SUE KINASE MB 8 [facility] FRACTION INC INC ONLY BLOOD 94656 LINETTE SUE COUNT 8 [facility] COMPLETE INC INC AUTO&AUTO DIFRNTL WBC ECG 79383 LINETTE SUE ROUTINE 8 [facility] ECG INC INC W/LEAST 12 LDS TRCG ONLY W/O I&[place] [address] LINETTE SUE ANGIOGRAP 8 [facility] HY INC INC ABDOMEN W/CONTRAS T/NONCONT RAST ECG 10062 LINETTE MCCLAIN, ROUTINE 8 [facility] W/LEAST PROF SERV 12 LDS I&R ONLY RADEX 83830 [facility] [place], SPINE 8 MEDICAL OLESYA LUMBOSACR IMAGING AL ASSOCIATE MINIMUM 4 S VIEWS OPHTH 11117 [facility] 8 MICHAEL A MICHAEL A XM&EVAL COMPRE NEW PT 1/> VST DUPLEX 11641 [facility] GEORGIADevin ANDREA SCAN 8 MEDICAL OLESYA EXTRACRAN IMAGING IAL ART ASSOCIATE COMPL BI S STUDY GROUND A0425 DAVID HERNANDEZ MILEAGE 8 AMBULANCE AMBULANCE PER SERVICE SERVICE STATUTE MILE 3D 65862 [facility] [place] [place], RENDERING 8 MEDICAL OLESYA W/INTERP IMAGING & ASSOCIATE [place] 3D 77574 [place] ZULLY, RENDERING 8 MEDICAL OLESYA IMAGING W/INTERP& [place]OCI[place] [address] [facility] [place] [place] [place] [place] CERVICAL 8 MEDICAL OLESYA SPINE W/O IMAGING CONTRAST ASSOCIATE MATERIAL S RADIOLOGI 03332 [place] Marbella ANDREA 8 MEDICAL OLESYA EXAMINATI IMAGING ON CHEST ASSOCIATE SINGLE S VIEW FRONTAL AMB A0422 DAVID HERNANDEZ OXYGEN&O2 8 AMBULANCE AMBULANCE SUPPLIES SERVICE SERVICE [place] [address] [facility] [place] [facility] [place] [place] HEAD/BRAI 8 MEDICAL OLESYA N W/O IMAGING CONTRAST ASSOCIATE MATERIAL S AMB A0427 DAVID HERNANDEZ SERVICE 8 AMBULANCE AMBULANCE ALS SERVICE SERVICE EMERGENCY TRANSPORT LEVEL 1 IODINE A9516 LINETTE LINETTE I-123 8 [facility] SODIUM INC INC IODIDE DX PER 100 UCI TO 999 THYROID 93411 [place] LUDY, SAVANA 8 MEDICAL CHAD P W/UPTAKE IMAGING SINGLE ASSOCIATE DETERMINA S TION THYROID 60935 LINETTE LINETTE UPTAKE 8 [facility] [place] [address] LINETTE SUE TROPONIN 8 [facility] QUANTITAT INC INC [place] COMPREHEN 72621 LINETTE SUE SIVE 8 [facility] METABOLIC INC INC PANEL CREATINE 80753 LINETTE SUE KINASE MB 8 [facility] FRACTION INC INC ONLY CREATINE 28922 LINETTE SUE KINASE 8 [facility] TOTAL INC INC ECG 32359 LINETTE SUE ROUTINE 8 [facility] ECG INC INC W/LEAST 12 LDS TRCG ONLY W/O I&R BLOOD 14782 LINETTE SUE COUNT 8 [facility] COMPLETE INC INC AUTO&AUTO DIFRNTL WBC URNLS DIP 16087 LINETTE SUE 8 [facility] STICK/TAB INC INC LET REAGENT AUTO MICROSCOP Y ECG 36868 LINETTE MCCLAIN, ROUTINE 8 [facility] W/LEAST PROF SERV 12 LDS I&R ONLY URNLS DIP 58162 [place] [address] CL[facility]IC CLINIC STICK/TAB LABORATOR LABORATOR LET Y Y REAGENT AUTO MICROSCOP Y RENAL 35814 [facility] FUNCTION 8 CLINIC CLINIC PANEL LABORATOR LABORATOR Y Y COLLECTIO 02170 [facility] VENOUS 8 CLINIC CLINIC BLOOD LABORATOR [place] [address] LINETTE SUE TROPONIN 8 [facility] QUANTITAT INC INC [place] OBSERVATI 52050 NANDINI GRIFFIN ON CARE 8 [facility] NETTIE DISCHARGE INTERNAL MED MANAGEMEN T CREATINE 48110 LINETTE SUE KINASE 8 [facility] TOTAL INC INC CREATINE 29250 LINETTE SUE KINASE MB 8 [facility] FRACTION INC INC ONLY HOSPITAL G0378 LINETTE SUE OBSERVATI 8 [facility] ON INC INC SERVICE PER HOUR ECG 11033 LINETTE SUE ROUTINE 8 [facility] ECG INC INC W/LEAST 12 LDS TRCG ONLY W/O I&R ECG 27046 LINETTE [place], ROUTINE 8 [facility] W/LEAST PROF SERV 12 LDS I&R ONLY ECG 08466 LINETTE [place], ROUTINE 8 [facility] W/LEAST PROF SERV 12 LDS I&R ONLY RHYTHM 73082 LINETTE SUE ECG 1-[address] [facility] LEADS INC INC TRACING ONLY W/O I&R ECG 48451 LINETTE SUE ROUTINE 8 [facility] ECG INC INC W/LEAST 12 LDS TRCG ONLY W/O I&R BLOOD 60608 LINETTE SUE COUNT 8 [facility] COMPLETE INC INC AUTO&AUTO DIFRNTL WBC INITIAL 84525 [place]ICK 8 [place] NETTIE ON INTERNAL CARE/DAY MED 30 MINUTES CREATINE 11363 LINETTE SUE KINASE MB 8 [facility] FRACTION INC INC ONLY CREATINE 42616 LINETTE SUE KINASE 8 [facility] TOTAL INC INC BASIC 15515 LINETTE SUE METABOLIC 8 [facility] PANEL INC INC CALCIUM TOTAL PROTHROMB 05780 LINETTE SUE IN TIME 8 [place] [address] LINETTE SUE TROPONIN 8 [facility] QUANTITAT INC INC [place] RADIOLOGI 40739 LINETTE SUE C 8 [facility] EXAMINATI INC INC ON CHEST SINGLE VIEW FRONTAL CT PELVIS 48553 Dawn LAWSON W/CONTRAS IMAGING T ASSOCIATE MATERIAL S US SOFT 51220 LEONEL BOSTON TISSUE 8 [facility] & IMAGING NECK REAL ASSOCIATE TIME S IMGE DOCM 3D 20992 LINETTE SUE RENDERING 8 [facility] INC INC W/INTERP& POSTPROC DIFF WORK STATION RADEX 21078 LEONEL MILLERUTCHER SPINE 8 MEDICAL OLESYA CERVICAL IMAGING 6 [place] [address] LINETTE SUE ABDOMEN 8 [facility] W/CONTRAS INC INC T MATERIAL CT THORAX 54443 LINETTE SUE 8 [facility] W/CONTRAS INC INC T MATERIAL BLOOD 31222 LINETTE SUE COUNT 8 [facility] COMPLETE INC INC AUTO&AUTO DIFRNTL WBC LIPID 34728 LINETTE SUE PANEL 8 [place] [address] LINETTE SUE THYROXINE 8 [facility] TOTAL INC INC COMPREHEN 79641 LINETTE SUE SIVE 8 [facility] METABOLIC INC INC PANEL HEMOGLOBI 24996 LINETTE SUE N 8 [facility] GLYCOSYLA INC INC SONG A1C CYANOCOBA 18428 LINETTE SUE JUAN 8 [facility] VITAMIN INC INC B-12 [place] [address] LINETTE SUE THYROID 8 [facility] STIMULAT[place] [address] LINETTE SUE FOLIC 8 [facility] ACID INC INC SERUM CREATINE 81520 LINETTE SUE KINASE MB 8 [facility] FRACTION INC INC ONLY CREATINE 11449 LINETTE SUE KINASE 8 [facility] TOTAL INC INC BASIC 15453 LINETTE SUE METABOLIC 8 [facility] [place] [address] LINETTE SUE TROPONIN 8 [facility] QUANTITAT INC INC [place]PA INITIAL 52923 [place] SAVITAELIANA, INPATIENT 8 HEART & AMADOR Y CONSULT VASCULAR NEW/ESTAB ASSOC PT 80 MIN LIPID 80828 LINETTE SUE PANEL 8 [facility] INC INC INJECTION 73920 [place] MELINA, CARDIAC 8 HEART & AMADOR Y CATHJ L VASCULAR VENTR/L ASSOC ATR ANGIOGRAP H L HRT 04965 [place] MELINA, CATHETERI 8 HEART & AMADOR Y ZATION VASCULAR [place]ROGR[place] [address] [place] MELINA, C-CATHJ 8 HEART & AMADOR Y F/SLCTV C VASCULAR ANGRPH ASSOC I SI&R 82855 LEONEL SUMMERS, F/NJX PX 8 HEART & AMADOR Y DURING VASCULAR C-CATHJ ASSOC VENTR&/AT R ANGRPH I SI&R 62287 LEONEL SUMMERS, F/NJX PX 8 HEART & AMADOR Y DURING VASCULAR C-CATHJ ASSOC PULM&/OR SELECT GROUND A0425 [facility] 8 AMBULANCE AMBULANCE PER SERVICE SERVICE STATUTE MIL BLOOD 43673 LINETTE SUE COUNT 8 [facility] COMPLETE INC INC AUTO&AUTO DIFRNTL WBC ECG 86220 LINETTE SUE ROUTINE 8 [facility] ECG INC INC W/LEAST 12 LDS TRCG ONLY W/O I&R HOSPITAL G0378 LINETTE SUE OBSERVATI 8 [facility] ON INC INC SERVICE PER HOUR ECG 13664 LINETTE MCCLAIN, ROUTINE 8 [facility] W/LEAST PROF SERV 12 LDS I&R ONLY NONINVASI 54454 [facility] SUE VE 8 [facility] EAR/PULSE INC INC OXIMETRY SINGLE DETER NONINVASI 58766 [facility] SUE VE 8 [facility] EAR/PULSE INC INC OXIMETRY SINGLE DETER RHYTHM 95470 [facility] SUE ECG 1-3 8 [facility] LEADS INC INC TRACING ONLY W/O I&R ECG 86732 LINETTE MCCLAIN, ROUTINE 8 [facility] ECG HOSPITAL W/LEAST PROF SERV 12 LDS I&R ONLY ECG 30885 [facility] SUE ROUTINE 8 [facility] ECG INC INC W/LEAST 12 LDS TRCG ONLY W/O I&R RADIOLOGI 56372 Marbella LI 8 [facility] O[facility]YA EXAMINATI IMAGING ON CHEST ASSOCIATE SINGLE S VIEW FRONTAL BLOOD 35808 [facility] SUE COUNT 8 [facility] COMPLETE INC INC AUTO&AUTO DIFRNTL [facility] [id number] [facility] SUE OBSERVATI 8 [facility] [place] [address] [facility] SUE TROPONIN 8 [facility] QUANTITAT INC INC RUPA COMPREHEN 11607 [facility] SUE SIVE 8 [facility] METABOLIC INC INC PANEL THROMBOPL 76384 [facility] SUE ASTIN 8 [facility] TIME INC INC PARTIAL PLASMA/WH OLE BLOOD NATRIURET 08170 LINET[facility] SUE IC 8 [facility] PEPTIDE INC INC PROTHROMB 99981 [facility] SUE IN TIME 8 [facility] INC INC CREATINE 82997 [facility] SUE KINASE 8 [facility] TOTAL INC INC CREATINE 65816 LINETTE SUE KINASE MB 8 [facility] FRACTION INC INC ONLY MRI 41778 OLESYA C ZULLY, SPINAL 8 ZULLY OLESYA CANAL LUMBAR W/O CONTRAST MATERIAL MRI 57247 OLESYA C ZULLY, SPINAL 8 ZULLY OLESYA CANAL CERVICAL W/O CONTRAST [facility] 80328 Brigida CALVILLO 8 KRISTIAN DOSS C OFFICE PSC OT/N REG SCHED HOURS Encounters Encounter Start End Date Code Location Performer Type Date [facility] LINETTE - [address] [facility] OUTPATIEN [facility] T OFFICE 76909 LAVINIA MCKEON 7 7 Kate [facility]OWNSEND MD,[facility] 25 MINUTES [facility] LINETTE - [address] [facility] OUTPATIEN [facility] T OFF[facility] 15161 [facility] OUTPATIDERRICK 7 7 PHYSICIAN T [facility]ISIT S GROUP 40 MINUTES [facility] LINETTE - [address] [facility] OUTPATIEN [facility] LINETTE - [address] [facility] OUTPATIEN [facility] T OFFICE 30318 [facility] OUTPATIEN 7 7 PHYSICIAN T [facility]ISIT S GROUP 40 MINUTES [facility] LINETTE - [address] [facility] OUTPATIEN [facility] T OFFICE 60617 LAVINIA MCKEON 7 7 Kate TOWNSEND MD,[facility] 15 MINUTES [facility]OSP[facility]TE - 7 7 [facility] OUTPATIEN INC T OFFICE 86769 [facility] OUTPATI[facility] 7 7 PHYSICIAN T VISIT S GROUP 40 MINUTES [facility] - 7 7 [facility] INC T OFFICE 39842 [facility] OUTPATIEN 7 7 PHYSICIAN T VISIT 5 S GROUP MINUTES [facility] - 7 7 [facility] OUTPATIEN INC T EMERGENCY 08191 [facility] 7 7 [facility] DEPARTMEN INC T VISIT HIGH/URGE NT SEVERITY OFFICE 66690 [facility]ETTE LEIVA OUTPATIEN 7 7 [facility] 10 P MINUTES EMERGENCY 40777 [facility] DEPT 7 7 PHYSICIAN VISIT S, PLL[facility] HIGH SEVERITY& [facility] - 7 7 [facility] OUTPATIEN INC T EMERGENCY 60104 [facility] 7 7 [facility] DEPARTMEN INC T VISIT LOW/MODER SEVERITY OFFICE 03887 [facility] 7 7 T NEW 30 CHIROPRAC MINUTES [facility] LINETTE - 7 7 [facility] OUTPATIEN INC T OFFICE 99195 LAV[facility]IA KATE OUTPATIEN 7 7 Kate TOWNSEND MD,[facility] 25 MINUTES [facility] T OFFICE 92392 [facility] 7 7 [facility] T VISIT 5 INC MINUTES [facility] T [facility] 7 7 [facility] T [facility] T OFFICE 58201 [facility] OUTPATIEN 7 7 PHYSICIAN T VISIT S GROUP 25 MINUTES [facility] - [facility] T EMERGENCY 00354 DEMETRIS HUYNH DEPT 7 7 PHYSICIAN U VISIT S, [facility] HIGH SEVERITY& THREAT FUNJ [facility]OS[facility] - [facility] INC T EMERGENCY 69379 [facility] 7 7 [facility] DEPARTMEN INC T VISIT MODERATE SEVERITY OFFICE 66421 [facility] LEIVA OUTPATIEN 7 7 [facility] T VISIT HOSPITAL 15 P MINUTES OFFICE 68366 BLUFF CITYJENNIFER ADRIELALEXANDRALADAN OUTPATIEN 7 7 [facility] T VISIT MEDICAL 15 G MINUTES [facility]OSP[facility] - 6 6 [facility] INC T OFFICE 59100 [facility] OUTPATIEN 6 6 PHYSICIAN T VISIT S GROUP 25 MINUTES [facility] - 6 6 [facility]EN INC T OFFICE 65971 LAVINIA TOWNSEND OUTPATIEN 6 6 Kate TOWNSEND MD,[facility] 25 MINUTES OFFICE 39035 [facility] LEIVA OUTPATIEN 6 6 [facility] 10 P MINUTES OFFICE 14184 KANE FERRARA OUTPATIEN 6 6 T VISIT 10 MINUTES EMERGENCY 99033 DEMETRIS ANDERS DEPT 6 6 PHYSICIAN CHARLEY VISIT S, [facility] HIGH SEVERITY& THREAT FUNCJ EMERGENCY 98153 [facility] 6 6 [facility] DEPARTMEN INC T VISIT HIGH/URGE NT SEVERITY [facility] - 6 6 [facility] INC T OFFICE 47052 LAVINIA ALDANA OUTPATIEN 6 6 STEPHEN TOWNSEND MD,[facility] - 6 6 [facility] INC T EMERGENCY 93371 DEMETRIS CHAGO 6 6 PHYSICIAN CHARLEY DEPARTMEN S, [facility] T VISIT HIGH/URGE NT SEVERITY [facility] - 6 6 [facility] INC T EMERGENCY 27699 [facility] 6 6 [facility] DEPARTMEN INC T VISIT MODERATE SEVERITY OFFICE 25668 [facility] CB TOD OUTPATIEN 6 6 PHYSICIAN T VISIT S GROUP 10 MINUTES [facility] - 6 6 [facility] T OFFICE 98504 [facility] TOD OUTPATIEN 6 6 PHYSICIAN T VISIT 5 S GROUP MINUTES [facility] - 6 6 [facility] OUTPATIEN INC T OFFICE 71090 [facility] OUTPATIEN 6 6 PHYSICIAN CHARLEY T VISIT S GROUP 15 MINUTES [facility] - 6 6 [facility] INC T OFFICE 96646 [facility] OUTPATIEN 6 6 PHYSICIAN MAT T VISIT S GROUP 25 MINUTES HOSP[facility] - 6 6 [facility] OUTPATIEN INC T OFFICE 19922 [facility] CB TOD CONSULTAT 6 6 PHYSICIAN ION S GROUP NEW/ESTAB PATIENT 30 MIN OFFICE 95467 [facility] OUTPATIEN 6 6 PHYSICIAN CHARLEY T VISIT S GROUP 10 MINUTES OFFICE 73697 [facility] OUTPATIEN 6 6 PHYSICIAN CHARLEY T VISIT S GROUP 10 MINUTES OFFICE 61766 BOYD MCKEON 6 6 MD JERMAINE, T VISIT PSC 15 MINUTES OFFICE 36335 [facility] OUTPATIEN 6 6 PHYSICIAN CHARLEY T VISIT S GROUP 10 MINUTES OFFICE 61021 BOYD MCKEON 6 6 MD JERMAINE, T VISIT PSC 15 MINUTES OFFICE 29358 PROGRESSI ABNDAR OUTPATIEN 6 6 VE TEREZA T NEW 30 PODIATRY MINUTES OFFICE 75111 [facility] EDWARD OUTPATIEN 6 6 PHYSICIAN EUG T VISIT S GROUP 15 MINUTES OFFICE 29387 BOYD BARRETT OUTPATIEN 6 6 MD JERMAINE, T VISIT PSC 25 MINUTES OFFICE 14785 [facility] OUT[facility]EN 6 6 [facility] T VISIT INC 10 MINUTES [facility] - 6 6 [facility] OUT[facility]EN [facility] T HOSPITAL [facility] 6 6 [facility] OUTPATIEN [facility] T [facility] LIN[facility]TE - 6 6 [facility] OUTPATIEN [facility] T OFFICE 05635 [facility] 6 Y T VISIT 5 HOSPITAL MINUTES OFFICE [address] [place] [facility] CONSULTAT 6 6 MEDICAL THO ION SERV NEW/ESTAB FOUNDATIO PATIENT N 40 MIN [facility]OSPITAL UNIVERSIT - 6 6 [facility] T OFFICE 65451 SCIFRES SCIFRES OUTPATIEN 6 6 ANG ANG T VISIT 10 MINUTES OFFICE 76034 BOYD ASHER OUTPATIEN 6 6 MD JERMAINE, T VISIT PSC 15 MINUTES [facility]OSP[facility] - 6 6 [facility] T EMERGENCY 22327 [facility] 6 6 [facility] DEPARTMEN INC T VISIT HIGH/URGE NT SEVERITY [facility] - 6 6 [facility] T EMERGENCY 20377 DEMETRIS NIELSON DEPT 6 6 PHYSICIAN VISIT S, [facility] HIGH SEVERITY& THREAT [facility] - 6 6 [facility] INC T [facility] - 6 6 [facility] T [facility] - 5 5 [facility] INC T EMERGENCY 36993 DEMETRIS XENIACLARENCE ADRIEL 5 5 PHYSICIAN [facility] T VISIT MODERATE SEVERITY EMERGENCY 11302 [facility] 5 5 [facility] T VISIT LOW/MODER SEVERITY [facility] - 5 5 [facility] T OFFICE 10800 [facility] 5 5 PHYSICIAN [facility] T VISIT S GROUP 10 MINUTES OFFICE 83239 [facility] GRETCHEN OUTPATIEN 5 5 [facility] T VISIT MEDICAL 15 G MINUTES [facility]OSP[facility] - 5 5 [facility]PATIEN INC T OFFICE 37735 BOYD ASHER OUTPATIEN 5 5 MD JERMAINE, T VISIT PSC 15 MINUTES [facility]OSP[facility] - 5 5 [facility]EN [facility] - 5 5 [facility]IEN INC T OFFICE 93760 BOYD BARRETT OUTPATIEN 5 5 MD JERMAINE, T VISIT PSC 15 MINUTES [facility]OSP[facility] - 5 5 [facility]EN [facility] T OFFICE 94982 [facility] LEIVA OUTPATIEN 5 5 [facility] T VISIT HOS[facility] 10 P MINUTES EMERGENCY 35640 DEMETRIS HUYNH 5 5 PHYSICIAN Dee [facility] T VISIT HIGH/URGE NT SEVERITY OFFICE 74383 [facility] LEIVA OUTPATIEN 5 5 [facility] T VISIT H[facility] 15 P MINUTES [facility] - 5 5 [facility]EN [facility] T OFFICE 04855 FREDY PATTERSONX BUX ANJ OUTPATIEN 5 5 MD T VISIT 10 MINUTES OFFICE 22552 CARDIOVAS [facility] OUTPATIEN 5 5 CULAR MAT T VISIT CONSULTAN 15 TS O MINUTES [facility] - 5 5 [facility] INC T OFFICE 18051 FREDY PATTERSONX BUX ANJ OUTPATIEN 5 5 MD T NEW 30 MINUTES [facility] - 5 5 [facility] T OFFICE 09296 CARDIOVAS CHAYO OUTPATIEN 5 5 CULAR MAT T NEW 45 CONSULTAN MINUTES TS O HOSP[facility] - 5 5 [facility] OUTPATIEN INC T OFFICE 55500 [facility] OUTPATIEN 5 5 PHYSICIAN CHARLEY T VISIT S GROUP 10 MINUTES [facility] - 5 5 [facility]PAT[facility] T [facility] - 5 5 [facility] INC T EMERGENCY 82014 [facility] 5 5 [facility] DEPARTMEN INC T VISIT HIGH/URGE NT SEVERITY OFFICE 18447 [facility] 4 4 [facility] T VISIT MEDICAL 10 G MINUTES HOSP[facility] - 4 4 [facility]PATIEN INC T [facility] - 4 4 [facility] INC T OFFICE 40312 LEIVA LEIVA OUTPATIEN 4 4 ART ART T VISIT 15 MINUTES OFFICE 68256 LEIVA LEIVA OUTPATIEN 4 4 ART ART T VISIT 15 MINUTES [facility] - 4 4 [facility] T EMERGENCY 75019 JAIDEN CAMILLA JAIDEN CAMILLA 4 4 DEPARTMEN T VISIT HIGH/URGE NT SEVERITY OFFICE 71382 GRETCHEN GODINEZ OUTPATIEN 4 4 JUDAH TREVINO T NEW 45 MINUTES OFFICE 41905 [facility] ANDERS OUTPATIEN 4 4 CHARLEY CHARLEY T VISIT 10 MINUTES [facility] - 4 4 [facility] INC T EMERGENCY 14243 [facility] 4 4 [facility] DEPARTMEN INC T VISIT MODERATE SEVERITY [facility]GENCY 71242 [facility] 4 III AREN III AREN DEPARTMEN T VISIT HIGH/URGE NT SEVERITY EMERGENCY 13295 B[facility] CAMPOS DEPT 4 4 III AREN III AREN VISIT HIGH SEVERITY& THREAT [facility] - 4 4 [facility] OUTPATIEN INC T OFFICE 27926 [facility] RIVERAEY OUTPATIEN 4 4 CHARLEY CHARLEY T NEW 30 MINUTES HOSP[facility] - 4 4 [facility] OUTPATIEN INC T EMERGENCY 43667 [facility] DEPT 4 4 [facility] VISIT INC HIGH SEVERITY& THREAT [facility] OFFICE 05706 VITA GORMAN [facility] OUTPATIEN 4 4 T NEW 45 MINUTES HOSP[facility] - 3 3 [facility] OUTPATIEN INC T OFFICE 48391 SHAYEMIHira CRMIE OUTPATIEN 3 3 JR AREN JR AREN T VISIT 15 MINUTES [facility] 21521 UNIVERSIT OUTPATIEN 3 3 Y T NEW 10 HOSPITAL MINUTES OFFICE 19802 POPEYE PHI POPEYE PHI CONSULTAT 3 3 ION NEW/ESTAB PATIENT 40 MIN [facility]OS[facility] - 3 3 [facility] T OFFICE 57499 MCERINMIE MCKEMIE OUTPATIEN 3 3 JR AREN YOUNGER T VISIT 15 MINUTES HOSPITAL [facility] - 3 3 [facility] OUTPATIEN INC T HOSPITAL [facility] - 3 3 [facility] INC T [facility] - 3 3 [facility]PAT[facility]EN INC T [facility] - 3 3 [facility] OUTPATIEN INC T [facility] - 3 3 [facility] OUTPATIEN INC T OFFICE 86502 LAUREN AGUILAR OUTPATIEN 3 3 SAVITA SAVITA T VISIT 15 MINUTES OFFICE 20223 MCKEMIE MCKEMIE OUTPATIEN 3 3 JR AREN YOUNGER T VISIT 15 MINUTES OFFICE 97373 MCKEMIE MCKEMIE OUTPATIEN 3 3 JR AREN YOUNGER T VISIT 15 MINUTES [facility]OSP[facility] - 3 3 [facility] OUTPATIEN [facility] T OFFICE 28109 MCKEMIE MCKEMIE OUTPATIEN 3 3 JR AREN YOUNGER T VISIT 15 MINUTES Emergency SERGIO BRADFORD MD (ER) 3 15:33 3 19:06 [facility] EMERGENCY 57005 [facility] 3 3 [facility] DEPARTMEN INC T VISIT LOW/MODER SEVERITY HOSPITAL [facility] - 3 3 [facility] OUTPATIEN INC T EMERGENCY 29070 VOLODYMYR BRADFORD 3 3 EMERGENCY [facility] T VISIT HIGH/URGE NT SEVERITY OFFICE 34880 MCKEMIE MCKEMIE OUTPATIEN 3 3 JR AREN YOUNGER T VISIT 15 MINUTES Emergency SERGIO Sue (ER) 3 18:40 3 21:51 [facility] - 3 3 [facility] OUTPATIEN INC T EMERGENCY 04160 [facility] DEPT 3 3 CHARLEY CHARLEY VISIT HIGH SEVERITY& THREAT FUNCJ EMERGENCY 22993 [facility] 3 3 [facility] DEPARTMEN [facility] T VISIT HIGH/URGE NT SEVERITY [facility] - 3 3 [facility] OUTPATIEN INC T OFFICE 42418 NATHALY DENTONE OUTPATIEN 3 3 JR AREN YOUNGER T VISIT 15 MINUTES [facility]OSP[facility] - 3 3 [facility] OUTPATIEN [facility] T EMERGENCY 54949 [facility] DEPT 3 3 CHARLEY CHARLEY VISIT HIGH SEVERITY& THREAT FUNCJ EMERGENCY 32772 [facility] 3 3 [facility] DEPARTMEN [facility] T VISIT HIGH/URGE NT SEVERITY [facility]OSP[facility] - 2 2 [facility]PATIEN [facility] - 2 2 [facility] OUTPATIEN [facility] T OFFICE 60854 LEIVA LEIVA OUTPATIEN 2 2 ART ART T VISIT 5 MINUTES [facility]OSP[facility] - 2 2 [facility] - 2 2 [facility] OUTPATIEN [facility] T OFFICE 59502 LEIVA LEIVA OUTPATIEN 2 2 ART ART T NEW 20 MINUTES [facility]OSP[facility] - 2 2 [facility] OUTPATIEN [facility] T OFFICE 21814 JAMA YUN OUTPATIEN 2 2 ARPAN NAN T VISIT 15 MINUTES HOSP[facility] - 2 2 [facility] OUTPATIEN [facility] T OFFICE 84888 JAMA YUN OUTPATIEN 2 2 ARPAN ANTONY T VISIT 15 MINUTES OFFICE 27737 NICK ROMERO OUTPATIEN 2 2 CARLOTA CARLOTA T NEW 60 MINUTES OFFICE 32027 MCKEMIE MCKEMIE OUTPATIEN 2 2 JR AREN JR AREN T VISIT 15 MINUTES HOSP[facility] - 2 2 [facility] OUTPATIEN INC T OFFICE 66223 BESSON BESSON OUTPATIEN 2 2 [facility] CAMILLA T VISIT 25 MINUTES OFFICE 44392 KANE MIDDLETON ALEM OUTPATIEN 2 2 T VISIT 10 MINUTES EMERGENCY 58986 [facility] CAMP[facility] DEPT 2 2 III AREN III AREN VISIT HIGH SEVERITY& THREAT FUNCJ EMERGENCY 54088 [facility] 2 2 [facility] DEPARTMEN INC T VISIT HIGH/URGE NT SEVERITY [facility]OSPITAL [facility] - 2 2 [facility] OUTPATIEN INC T OFFICE 64702 MCKEMIE MCKEMIE OUTPATIEN 2 2 JR AREN RAI AREN T VISIT 15 MINUTES OFFICE 38780 [facility] OUTPATIEN 2 2 T NEW 10 MINUTES HOSP[facility] - 2 2 [facility] OUTPATIEN INC T OFFICE 09725 ODALYS LB ODALYS LB OUTPATIEN 2 2 T VISIT 10 MINUTES EMERGENCY 37812 [facility] 2 2 [facility] DEPARTMEN INC T VISIT MODERATE SEVERITY [facility] - 2 2 [facility] OUTPATIEN INC T EMERGENCY 35130 [facility] DEPT 2 2 III AREN III AREN VISIT HIGH SEVERITY& THREAT FUNCJ EMERGENCY 15624 BARAHONA MICHELLE BARAHONA MICHELLE DEPT 1 1 VISIT HIGH SEVERITY& THREAT FUNCJ EMERGENCY 43693 [facility] 1 1 [facility] DEPARTMEN INC T VISIT MODERATE SEVERITY [facility] - 1 1 [facility] INC T OFFICE 87114 [place] [facility] OUTPATIEN 1 1 [place] T VISIT INTERNAL 25 MED MINUTES OFFICE 92014 ODALYS LB ODALYS LB OUTPATIEN 1 1 T NEW 30 MINUTES OFFICE 75635 BISHNU TAMIKO RAI OUTPATIEN 1 1 [facility] AREN T VISIT CLINIC 15 PSC MINUTES OFFICE 63051 NEW MITCH MAT OUTPATIEN 1 1 [facility] T VISIT CLINIC 25 PSC MINUTES OFFICE 79186 [facility] OUTPATIEN 1 1 [place] [facility] T VISIT INTERNAL 25 MED MINUTES OFFICE 66815 BISHNU MCCORMACK CONSULTAT 1 1 ROY BERNARDO ION CLINIC NEW/ESTAB PSC PATIENT 80 MIN HOSP[facility] - 1 1 [facility] OUTPATIEN INC OFFICE 66574 [facility] BESSON OUTPATIEN 1 1 [facility] VISIT INTERNAL 15 MED MINUTES HOSPITAL [facility] - 1 1 [facility] OUTPATIEN INC T EMERGENCY 54032 [facility] 1 1 [facility] DEPARTMEN [facility] T VISIT MODERATE SEVERITY EMERGENCY 53114 VOLODYMYR CAMPOS DEPT 1 1 EMERGENCY III AREN VISIT SERVICES HIGH SEVERITY& THREAT FUN OFFICE 10983 [facility] BESSON OUTPATIEN 1 1 [facility] VISIT INTERNAL 25 MED MINUTES OFFICE 83731 [facility] BESSON OUTPATIEN 1 1 [facility] VISIT INTERNAL 25 MED MINUTES HOSP[facility] - 1 1 [facility]PATIEN [facility] - 1 1 [facility] OUTPATIEN INC OFFICE 65095 [facility] BESSON OUTPATIEN [address] [facility] T VISIT INTERNAL 25 MED MINUTES H[facility] - 1 1 [facility] OUTPATIEN INC [facility] - 1 1 [facility] OUTPATIEN INC T OFFICE 21742 [facility] BESSON OUTPATIEN [address] [facility] T VISIT INTERNAL 15 MED MINUTES [facility] - 1 1 [facility] OUTPATIEN INC T EMERGENCY 26194 VOLODYMYR CAMPOS DEPT 1 1 EMERGENCY III AREN VISIT SERVICES HIGH SEVERITY& THREAT FUNCJ EMERGENCY 53783 [facility] 1 1 [facility] DEPARTMEN INC T VISIT HIGH/URGE NT SEVERITY OFFICE 52335 [facility] MCKEMIE OUTPATIEN 1 1 NAHUN YOUNGER T VISIT INTERNAL 15 MED MINUTES OFFICE 29597 [facility] MCKEMIE OUTPATIEN 1 1 NAHUN YOUNGER T VISIT INTERNAL 15 MED MINUTES OFFICE 30676 [facility] BESSON OUTPATIEN 1 1 NAHUN SAMPSON T VISIT INTERNAL 15 MED MINUTES HOSPITAL [facility] - 1 1 [facility] OUTPATIEN INC T OFFICE 73212 [facility] LAUREN OUTPATIEN 1 1 NAHUN BARNEY T VISIT INTERNAL 15 MEDI MINUTES HOSPITAL [facility] - 1 1 [facility] OUTPATIEN INC T OFFICE 37885 [facility] MCKEMIE OUTPATIEN 0 0 NAHUN YOUNGER T VISIT INTERNAL 15 MED MINUTES HOSPITAL [facility] - 0 0 [facility] OUTPATIEN INC T OFFICE 00679 [facility] MCKEMIE OUTPATIEN 0 0 NAHUN YOUNGER T VISIT INTERNAL 15 MED MINUTES EMERGENCY 35853 VOLODYMYR BOURNE DEPT 0 0 EMERGENCY VISIT SERVICES HIGH SEVERITY& THREAT FUNCJ OFFICE 33318 [facility] BESSON OUTPATIEN 0 0 NAHUN PAIGE VISIT INTERNAL 15 MED MINUTES OFFICE 39509 BISHNU Aguilar OUTPATIEN 0 0 [facility] T VISIT CLINIC 15 PSC MINUTES OFFICE 88882 [facility] MCKEMIE OUTPATIEN 0 0 Kate GARNICA JR VISIT INTERNAL MCKAYLA F 15 MED MINUTES HOSP[facility] - 0 0 [facility] OUTPATIEN INC T EMERGENCY 73287 [facility] 0 0 [facility] DEPARTMEN INC T VISIT HIGH/URGE NT SEVERITY OFFICE 17611 ALLRAN REYMUNDORAN CONSULTAT 0 0 JR CECELIA, ANH JOSHI Donya NEW/ESTAB PATIENT 80 MIN OFFICE 92142 [facility] MCKEMIE OUTPATIEN 0 0 Kate GARNICA JR VISIT INTERNAL MCKAYLA F 15 MED MINUTES HOSPITAL [facility] - 0 0 [facility] OUTPATIEN INC T OFFICE 46664 [facility] MCKEMIE OUTPATIEN 9 9 Kate GARNICA JR VISIT INTERNAL MCKAYLA F 15 MED MINUTES HOSP[facility] - 9 9 [facility] OUTPATIEN INC T OFFICE 15044 GAIL SANCHEZ OUTPATIEN 9 9 ULI ESPINOZA T VISIT SERV 25 FOUNDATIO MINUTES HOSPITAL [facility] - 9 9 [facility] OUTPATIEN INC T [facility] - 9 9 [facility] OUTPATIEN INC T OFFICE 13289 [facility] JOHNY OUTPATIEN 9 9 NAHUN Allred T VISIT INTERNAL 15 MED MINUTES OFFICE 29063 Lauren WAYNE [facility] PSC MINUTES OFFICE 87221 [facility] MCKEMIE OUTPATIEN 9 9 Kate GARNICA JR VISIT INTERNAL MCKAYLA F 15 MED MINUTES EMERGENCY 37916 [facility] 9 9 [facility] DEPARTMEN INC T VISIT HIGH/URGE NT SEVERITY [facility]PITAL [facility] - 9 9 [facility] OUTPATIEN INC T EMERGENCY 32187 VOLODYMYR MASON, DEPT 9 9 EMERGENCY [place] VISIT SERVICES O HIGH SEVERITY& ASSOCIATE THREAT S FUN OFFICE 72976 [facility] MCKEMIE OUTPATIEN 9 9 Kate GARNICA JR VISIT INTERNAL MCKAYLA F 15 MED MINUTES OFFICE 56823 [facility] ELIAS, OUTPATIEN 9 9 NAHUN SHEFFIELD T VISIT INTERNAL 15 MED MINUTES OFFICE 28694 [facility] JOHNY, OUTPATIEN 9 9 NAHUN Allred T VISIT INTERNAL 10 MED MINUTES OFFICE 40547 [facility] MCKEMIE OUTPATIEN 9 9 NAHUN RAI Kate VISIT INTERNAL MCKAYLA F 15 MED MINUTES HOSP[facility] - 9 9 [facility] OUTPATIEN INC T OFFICE 64905 [facility] ELIAS, OUTPATIEN 9 9 NAHUN SHEFFIELD T VISIT INTERNAL 15 MED MINUTES HOSPITAL [facility] - 8 8 [facility] OUTPATIEN INC T OFFICE 28252 [facility] ELIAS, OUTPATIEN 8 8 NAHUN SHEFFIELD T VISIT INTERNAL 15 MED MINUTES OFFICE 59369 [facility] ELIAS, OUTPATIEN 8 8 NAHUN SHEFFIELD T VISIT INTERNAL 15 MED MINUTES OFFICE 03554 [facility] MCKEMIE OUTPATIEN 8 8 Kate GARNICA JR VISIT INTERNAL MCKAYLA F 15 MED MINUTES OFFICE 80884 Lauren WAYNE OUTPATIEN 8 8 [facility] T VISIT CLINIC 15 PSC MINUTES EMERGENCY 00047 AMBERLY MASON, ILIANAT 8 8 [facility] [place] VISIT CORPORATI O HIGH ON SEVERITY& THREAT [facility] - 8 8 [facility] OUTPATIEN INC T EMERGENCY 23488 [facility] 8 8 [facility] DEPARTMEN INC T VISIT MODERATE SEVERITY OFFICE 77187 [facility] MCKEMIE OUTPATIEN 8 8 Kate GARNICA JR VISIT INTERNAL MCKAYLA F 15 MED MINUTES HOSPITAL [facility] - 8 8 [facility] OUTPATIEN INC T OFFICE 79323 [facility] MCKEMIE OUTPATIEN 8 8 VALLEY JR, T VISIT INTERNAL MCKAYLA F 15 MED MINUTES HOSPITAL [facility] - 8 8 [facility] OUTPATIEN INC T OFFICE 32096 [facility] MCKEMIE OUTPATIEN 8 8 NAHUN RAI, T VISIT INTERNAL MCKAYLA F 15 MED MINUTES OFFICE 14791 NEW BEN OUTPATIEN 8 8 ROY III, T VISIT CLINIC RADHA L 10 PSC MINUTES OFFICE 72857 Lauren WAYNE CONSULTAT 8 8 [facility] NEW/ESTAB PSC PATIENT 60 MIN OFFICE 77359 [facility] MCKEMIE OUTPATIEN 8 8 NAHUN RAI, T VISIT INTERNAL MCKAYLA F 15 MED MINUTES HOSPITAL [facility] - 8 8 [facility] OUTPATIEN INC T EMERGENCY 68367 [facility] 8 8 [facility] T VISIT HIGH/URGE NT SEVERITY HOSPITAL [facility] - 8 8 [facility] OUTPATIEN INC T EMERGENCY 82736 [facility] VALERO, 8 8 [facility] T VISIT PROF SERV MODERATE SEVERITY OFFICE 33531 NEW BEN OUTPATIEN 8 8 ROY III, T NEW 45 CLINIC RADHA L MINUTES PSC EMERGENCY 62554 [facility] DEPT 8 8 [facility] VISIT INC HIGH SEVERITY& THREAT FUN HOSPITAL [facility] - 8 8 [facility] OUTPATIEN INC T PERIODIC 67664 [facility] MCKEMIE PREVENTIV 8 8 NAHUN RAI, E MED EST INTERNAL MCKAYLA F PATIENT MED 40-64YRS HOSPITAL [facility] - 8 8 [facility] OUTPATIEN INC T OFFICE 82277 YAYO ZEE OUTPATIEN 8 8 [facility] VISIT 40 MINUTES HOSPITAL [facility] - 8 8 [facility] OUTPATIEN INC T EMERGENCY 02061 [facility] 8 8 [facility] DEPARTMEN INC T VISIT HIGH/URGE NT SEVERITY EMERGENCY 68440 [facility] COLMENARES DEPT 8 8 [facility] VISIT HOSPITAL HIGH PROF SERV SEVERITY& THREAT FUNJ [facility] LINETTE - 8 8 [facility] OUTPATIEN INC T OFFICE 60385 YAYO ZEE OUTPATIEN 8 8 LISBETH BOB T VISIT 40 MINUTES OFFICE 07514 GAIL NYE, CONSULTAT 8 8 MEDICAL LAKSHMI KAMARA SERV NEW/ESTAB FOUNDATIO PATIENT 40 MIN OFFICE 14187 MIKE BURGER 8 8 KRISTIAN Love VISIT [facility] 15 MINUTES
--- OUTSIDE RECORDS SUMMARY | 2017-09-05 03:00 | External Medical Summary Rpt ---
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 Unavailable Unavailable SERVICE, [facility] Unavailable Unavailable SERVICE[facility] Unavailable Unavailable SERVICE, [facility] BANDAR TEREZA, BANDAR Unavailable [...] Unavailable [facility] [place] [facility] [place] [facility] [place] Un[place] [facility] EDGE DONNIE, EDGE DONNIE Unavailable Unavailable EDGE DONNIE, EDGE DONNIE Unavailable Unavailable FALLUJI VENITA, FALLUJI Unavailable Unavailable VENITA FEEBACK, FEEBACK Unavailable Unavailable LAUREN SAVITA, Unavailable Unavailable LAUREN SAVITA FRYMAN EUG, FRYMAN Unavailable Unavailable EUG CHAGO, CHAGO Unavailable Unavailable CHAGO CHARLEY, CHAGO Unavailable Unavailable CHARLEY CHAGO CHARLEY, CHAGO Unavailable Unavailable CHARLEY BARAHONA MICHELLE, BARAHONA MICHELLE Unavailable Unavailable [facility] Unavailable Unavailable INC, [facility] Unavailable [facility]available [facility], [facility] Unavailable Unavailable [facility]PITAL P, [facility] ELIAS, NETTIE, ELIAS, Unavailable Unavailable NETTIE MIDDLETON ALEM, MIDDLETON ALEM Unavailable Unavailable MIDDLETON ALEM, MIDDLETON ALEM Unavailable Unavailable MIDDLETON MICHAEL A, Unavailable Unavailable MIDDLETON, MICHAEL A [facility], Unavailable Unavailable [facility] WHITESIDE NISREEN, WHITESIDE NISREEN Unavailable Unavailable KATYA MITCHELL, KATYA Unavailable Unavailable MITCHELL JAMA NAN, JAMA Unavailable Unavailable NAN AJMA NAN, JAMA Unavailable Unavailable NAN [facility] Unavailable Unavailable MEDICAL G, [facility]available Unavailable DEPARTMENT, [facility], [facility] [facility] [facility] Unavailable Unavailable ALBA [place] E, Unavailable Unavailable ALBA MON[place] [facility] Unavailable Unavailable LABORATORY, [facility] Un[facility] FREDY DEAN MD, FREDY Unavailable Unavailable JERMAINE DOSS MAJORS G, MAJORS G Unavailable Unavailable VITA HAM, VITA HAM Unavailable Unavailable VITA HAM, VITA HAM Unavailable Unavailable [facility] Unavailable Unavailable SERVICES, [facility] ROMERO JAM, Unavailable Unavailable ROMEOR JAM ROMERO JAM, Unavailable Unavailable ROMERO JAM MCKEMIE JR AREN, Unavailable Unavailable MCKEMIE JR AREN MCKEMIE JR AREN, Unavailable Unavailable MCKEMIE JR AREN MCKEMIE JR, MCKAYLA Unavailable Unavailable F, NATHALY JR, MCKAYLA F MINEER EDELMIRA, MINEER Unavailable Unavailable EDELMIRA LUDY, CHAD P, Unavailable Unavailable LUDY, CHAD P MOHAMMADZADEH, Unavailable Unavailable MOHAMMADZADEH [facility], Unavailable Unavailable [facility] Unavailable Unavailable [facility], [facility] O'JENNIFER LISA, O'JENNIFER Unavailable Unavailable LISBETH [...] A MITCH MAT, MITCH MAT Unavailable Unavailable [facility], Unavailable Unavailable [facility] MORRISON W, MORRISON W Unavailable Unavailable MORRISON JR AREN, MORRISON Unavailable Unavailable JR AREN [...] NEOPLASM OF [facility] CRANIAL INC NERVES [id number] SPONDYLOSIS 07-05-2017 [place] W/O KRISTIAN MYELOPATH/R ,PSC ADICULOPATH Y CERV RGN Z17562 SPONDYLOSIS 07-05-2017 [place] W/[place] TOWNSEND MYELOPATH/R ,[facility] ADICULOPATH Y LUMB RGN 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 [place] 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 ,[facility] ANALGESIC Q59343 OTHER LONG 06-15-2017 [facility] TERM [facility] CURRENT INC DRUG THERAPY E119 TYPE 2 06-02-2017 [facility] DIABETES PHYSICIANS MELLITUS GROUP WITHOUT COMPLICATIO NS E785 HYPERLIPIDE 06-02-2017 [facility] LESTER PHYSICIANS UNSPECIFIED GROUP I119 HYPERTENSIV 06-02-2017 [facility] E HEART PHYSICIANS DISEASE GROUP WITHOUT HEART FAILURE I2510 ASHD AFOGNAK 06-02-2017 [facility] CORONARY [facility] ARTERY W/O INC ANGINA PECTORIS I712 THORACIC 06-02-2017 [facility] AORTIC PHYSICIANS ANEURYSM GROUP WITHOUT RUPTURE I714 ABDOMINAL 06-02-2017 [facility] AORTIC PHYSICIANS ANEURYSM GROUP WITHOUT RUPTURE R079 CHEST PAIN 06-02-2017 [facility] UNSPECIFIED PHYSICIANS GROUP R9439 ABNORMAL 05-26-2017 [facility] RESULT OTH PHYSICIANS CARDIOVASCU GROUP LR FUNCTION STUDY Z34662 ENCOUNTER 05-26-2017 [facility] FOR PHYSICIANS PREPROCEDUR GROUP AL CARIOVASCUL AR EXAM I10 ESSENTIAL 05-13-2017 [facility] PRIMARY PHYSICIANS HYPERTENSIO GROUP N R9431 ABNORMAL 05-13-2017 [facility] ELECTROCARD PHYSICIANS IOGRAM GROUP B73192 ENCOUNTER 05-13-2017 [facility] FOR OTHER [facility] PREPROCEDUR INC AL EXAMINATION R1011 RIGHT UPPER 05-03-2017 [place] [facility] ASS R935 ABN FIND DX 05-03-2017 [facility] IMAG OTH [facility] ABD REGIONS INC RETROPERITO NEUM D369 BENIGN 04-19-2017 [facility] NEOPLASM PHYSICIANS UNSPECIFIED GROUP SITE B97623 PERSONAL 04-19-2017 [facility] HISTORY OF PHYSICIANS COLONIC GROUP POLYPS K210 GASTRO-ESOP 04-09-2017 [facility] JENSEN PHYSICIANS, REFLUX PLLC DISEASE W/ ESOPHAGITIS K828 OTHER 04-09-2017 [facility] SPECIFIED PHYSICIANS, DISEASES OF PLLC GALLBLADDER K829 DISEASE OF 04-09-2017 [place] [facility]ICAL IMAGING ASS UNSPECIFIED R109 UNSPECIFIED 04-09-2017 [place] ABDOMINAL MEDICAL PAIN IMAGING ASS Y07186 PERSONAL 04-09-2017 [facility] HISTORY OF [facility] P DEPENDENCE N411 CHRONIC 04-05-2017 [place] PROSTATITIS [facility] P N529 MALE 04-05-2017 [facility] P UNSPECIFIED K219 GASTRO-ESOP 04-02-2017 [facility] H REFLUX [facility] DISEASE INC WITHOUT ESOPHAGITIS M5116 INTERVERTEB 04-02-2017 [facility] GLORIA PHYSICIANS, D/O PLLC W/RADICULOP ATHY LUMB RGN R1031 RIGHT LOWER 04-02-2017 [place] [facility] ASS M5382 OTHER 03-23-2017 [place] SPECIFIED CHIROPRACTI DORSOPATHIE C CENTE S CERVICAL REGION M5386 OTHER 03-23-2017 [place] SPECIFIED CHIROPRACTI DORSOPATHIE C CENTE S LUMBAR REGION P68605 OTHER 03-04-2017 JUANI LU MD,PSC MID-CERV REG UNS LEVEL K5900 CONSTIPATIO 02-13-2017 [place] N MEDICAL UNSPECIFIED IMAGING ASS R112 NAUSEA WITH 02-13-2017 [place] VOMITING MEDICAL UNSPECIFIED IMAGING ASS J449 CHRONIC 01-13-2017 [facility] PULMONARY [facility] P DISEASE UNS R0600 DYSPNEA 01-13-2017 [place] UNSPECIFIED MEDICAL IMAGING ASS E039 HYPOTHYROID 11-11-2016 [facility] IS [facility] UNSPECIFIED INC N401 BENIGN 10-26-2016 [place] PROSTATIC [facility] P LW URINARY TRACT SX R350 FREQUENCY 10-26-2016 [facility] P G89579 UNSPECIFIED 10-11-2016 [facility] ALEM BLEPHARITIS LEFT LOWER EYELID J9811 ATELECTASIS 09-01-2016 [place] [facility] R1013 EPIGASTRIC 09-01-2016 [place] PAIN [facility] P R7989 OTHER SPEC 09-01-2016 [place] ABNORMAL MEDICAL FINDINGS IMAGING ASS BLOOD CHEMISTRY M791 MYALGIA 08-25-2016 [place] TOWNSEND MD,PSC M5090 CERVICAL 08-16-2016 [facility] DISC [facility] DISORDER INC UNS UNS CERVICAL REGION H43723 PAIN IN 08-10-2016 [place] RIGHT MEDICAL SHOULDER IMAGING ASS M5032 OTH CERV 08-10-2016 [place] DISC MEDICAL DEGENERATIO IMAGING ASS N MID-CERVICA L REGION M542 CERVICALGIA 08-10-2016 [place] [facility] R51 HEADACHE 08-10-2016 [place] [facility] I2615HD CONTUSION 08-10-2016 [facility] UNS PART PHYSICIANS, HEAD PLLC INITIAL ENCOUNTER I3025YT UNSPECIFIED 08-10-2016 [place] INJURY OF MEDICAL HEAD IMAGING ASS INITIAL ENCOUNTER R479NPF STRAIN 08-10-2016 [facility] MUSCLE FASC PHYSICIANS, & TENDON PLLC NECK LEVL INIT ENC Q337KPW UNSPECIFIED 08-10-2016 [place] INJURY OF MEDICAL NECK IMAGING ASS INITIAL ENCOUNTER C07711F UNSPECIFIED 08-10-2016 [facility] SPRAIN RT PHYSICIANS, SHOULDER PLLC JOINT INITIAL ENC N4228ZE UNS INJURY 08-10-2016 [place] RT SHOULDER MEDICAL UPPER ARM IMAGING ASS INITIAL ENCNTR D126 BENIGN 07-29-2016 [facility], NEOPLASM OF [facility] COLON UNSPECIFIED K635 POLYP OF 07-29-2016 [facility] COLON PHYSICIANS GROUP Z09 ENC F/U 07-29-2016 COMMUNITY EXAM AFTR ANESTH OF CMPL TX OTH THE BLUE THAN MALIG NEOPLSM Z1211 ENCOUNTER 07-29-2016 [facility] SCREENING PHYSICIANS MALIGNANT GROUP NEOPLASM OF COLON M4642 DISCITIS 05-14-2016 [facility] UNSPECIFIED PHYSICIANS CERVICAL GROUP REGION G8929 OTHER 04-23-2016 [facility] CHRONIC PHYSICIANS PAIN GROUP J40 BRONCHITIS 04-07-2016 [facility] NOT PHYSICIANS SPECIFIED GROUP ACUTE OR CHRONIC M5010 CERVICAL 03-29-2016 BOYD DEAN, DISC D/O , PSC W/RADICULOP ATHY UNS CERV RGN B351 TINEA 03-25-2016 PRO[facility] UNGUIUM PODIATRY E1151 TYPE 2 DM 03-25-2016 [facility] W/DIAB PODIATRY PERIPH ANGIOPATHY W/O GANGRENE M2570 OSTEOPHYTE 03-25-2016 PRO[facility] UNSPECIFIED PODIATRY JOINT U91398 PAIN IN 03-25-2016 [facility] LEFT TOES PODIATRY J0110 ACUTE 03-24-2016 [facility] FRONTAL PHYSICIANS SINUSITIS GROUP UNSPECIFIED [id number] UNS OPEN 03-24-2016 [facility] WOUND UNS PHYSICIANS TOES GROUP W/DAMAGE NAIL INITIAL M5030 OT 02-23-2016 [facility] CERVICAL [facility] DISC INC DEGENERATIO N UNS CERV REGION M5412 RADICULOPAT 02-23-2016 BOYD DEAN HY CERVICAL , [facility] REGION R200 ANESTHESIA 01-23-2016 [place] OF SKIN MEDICAL IMAGING ASS Z8603 PERSONAL 01-23-2016 [place] HISTORY MEDICAL NEOPLASM OF IMAGING ASS UNCERTAIN BEHAVIOR 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 P02266 UNSPECIFIED 01-14-2016 [place] MEDICAL PTOSIS OF SERV RIGHT FOUNDATION EYELID H9191 UNSPECIFIED 01-14-2016 [facility] HEARING SERV LOSS RIGHT FOUNDATION EAR S29964 FACIAL 01-14-2016 [place] MEDICAL WEAKNESS SERV FOUNDATION R9089 OT 01-14-2016 [place] [facility] ABNORMAL SERV FIND ON DX FOUNDATION IMAGING CNTRL NERV SYS V51895 PERSONAL 01-14-2016 [place] MEDICAL HISTORY 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 UNSPECIFIED E59258 CONTACT 12-26-2015 [facility] ANG BLEPHAROCON JUNCTIVITIS RIGHT EYE M5136 OT 12-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 BURT MD, PSC RAL DISC DEGEN LUMBAR REGION R110 NAUSEA 12-03-2015 [place] [facility] R140 ABDOMINAL 11-26-2015 [place] DISTENSION MEDICAL GASEOUS IMAGING ASS B370 CANDIDAL 11-20-2015 [facility] STOMATITIS PHYSICIANS, [facility] E1121 TYPE 2 11-20-2015 [facility] DIABETES [facility] MELLITUS INC W/DIABETIC NEPHROPATHY J329 CHRONIC 11-13-2015 [facility] SINUSITIS PHYSICIANS UNSPECIFIED GROUP H5203 HYPERMETROP 09-08-2015 [place] ALEM IA BILATERAL M797 FIBROMYALGI 08-29-2015 [facility] A [facility] INC 29616 DEGEN 07-28-2015 BOYD DEAN, LUMBAR/LUMB , PSC OSACRAL INTERVERTEB RAL DISC 7244 THORACIC/GINO 07-28-2015 GABBY BURT MD, PSC NEURITIS/RA DICULITIS UNSPEC 7291 UNSPECIFIED 07-28-2015 BOYD DEAN, MYALGIA , PSC AND MYOSITIS V7109 OBSERVATION 07-23-2015 COMPREHEND OF OTHER INC SUSPECTED MENTAL CONDITION 23549 UNSPECIFIED 06-20-2015 [facility] ARTHROPATHY INC OTHER SPECIFIED SITES 6011 CHRONIC 06-03-2015 [place] PROSTATITIS [facility] P 35304 DEGEN 05-06-2015 [place] THORACIC/TH MEDICAL ORACOLUMBAR IMAGING ASS INTERVERTEB RAL DISC 7231 CERVICALGIA 05-06-2015 [place] [facility] 7245 UNSPECIFIED 05-06-2015 [place] BACKACHE MEDICAL IMAGING ASS 7840 HEADACHE 05-06-2015 [facility] 8470 NECK SPRAIN 05-06-2015 [facility] AND STRAIN PHYSICIANS, PLLC 42591 HEAD 05-06-2015 [facility] INJURY, PHYSICIANS, UNSPECIFIED PLLC 49884 HYPERTROPHY 04-29-2015 [facility] W/UR OBST & HOSPITAL P OTH LUTS 73863 URINARY 04-29-2015 [facility] P 7224 DEGENERATIO 04-28-2015 MADISI BUX N OF CERVICAL INTERVERTEB RAL DISC 7234 BRACHIAL 04-28-2015 FREDY DEAN NEURITIS [place] RADICULITIS N[place] 21124 DIAB W/O 03-04-2015 [facility] COMP TYPE LAR II/UNS NOT CONSULTANTS STATED O UNCNTRL 2724 OTHER AND 03-04-2015 [facility] UNSPECIFIED [facility]OS[facility] INC HYPERLIPIDE LESTER 4019 UNSPECIFIED 03-04-2015 [facility] ESSENTIAL [facility] HYPERTENSIO INC N 86682 UNSPEC HTN 03-04-2015 [facility] HEART LAR DISEASE CONSULTANTS WITHOUT O HEART FAIL 74356 COR 03-04-2015 [facility] ATHEROSLERO [facility] UNSPEC INC TYPE VESSEL AFOGNAK/XAVIER T 92728 OTHER 02-26-2015 [place] DYSPNEA AND MEDICAL [place]AG[place] [address] CHEST PAIN 02-26-2015 [place] MEDICAL UNSPECIFIED SERV FOUNDATION 63815 OTHER CHEST 02-26-2015 [facility] PAIN PHYSICIANS GROUP 2449 UNSPECIFIED 01-09-2015 [facility] PHYSICIANS HYPOTHYROID GROUP ISM 55072 DISPLCMT 01-09-2015 [facility] LUMBAR PHYSICIANS INTERVERT GROUP DISC W/O MYELOPATHY 66554 OTHER 01-09-2015 [facility] MALAISE AND PHYSICIANS FATIGUE GROUP 89772 DIAB W/O 12-28-2014 [facility] MENTION [facility] COMP TYPE INC II/UNS TYPE UNCNTRL 2768 HYPOPOTASSE 12-28-[address] [facility] P 3319 UNSPECIFIED 12-28-2014 [place] CEREBRAL MEDICAL DEGENERATIO IMAGING ASS N 7820 DISTURBANCE 12-28-2014 [facility] P 83684 PRECORDIAL 12-28-2014 [facility] AMBULANCE SERVICE 92808 VOMITING 12-28-2014 [facility] AMBULANCE SERVICE V140 PERSONAL 12-28-2014 [facility] HISTORY OF [facility] ALLERGY TO [facility] P PENICILLIN 4414 ABDOMINAL 11-14-2014 [facility] WITHOUT MEDICAL G MENTION OF RUPTURE 490 BRONCHITIS 10-30-2014 [facility] NOT PHYSICIANS SPECIFIED GROUP ACUTE OR CHRONIC 27936 UNSPECIFIED 05-07-2014 [facility] ART ORCHITIS AND EPIDIDYMITI S 16841 OTHER 04-16-2014 [facility] CHRONIC [facility] PAIN INC 496 CHRONIC 04-16-2014 [facility] AIRWAY [facility] OBSTRUCTION INC NEC 7242 LUMBAGO 04-16-2014 JAIDEN CAMILLA V1582 PERS HX 04-16-2014 [facility] TOBACCO USE [facility] PRESENTING INC HAZARDS HEALTH V5869 LONG-TERM 04-16-2014 [facility] (CURRENT) [facility] USE OF INC OTHER MEDICATIONS 19058 OTHER 04-02-2014 [facility] CONVULSIONS [facility] INC 8472 LUMBAR 04-02-2014 WEHR[facility] III SPRAIN AND AREN STRAIN E9179 OTHER 04-02-2014 [facility] III STRIKING AREN AGAINST W/WO SUBSEQUENT FALL 4139 OTHER AND 03-29-2014 [facility] UNSPECIFIED [facility] ANGINA INC PECTORIS 91305 ING ANDREW 03-29-2014 [facility] W/O MENTION BUBBA OBST/GANGRE N UNILAT/UNSP EC 5738 OTHER 03-29-2014 [facility] SPECIFIED BUBBA DISORDERS OF LIVER 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 67129 ABDOMINAL 03-29-2014 [facility] III PAIN OTHER AREN SPECIFIED SITE 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 56111 ACUTE 03-03-2014 [facility] GASTRITIS [facility] WITHOUT INC MENTION OF HEMORRHAGE 54190 UNS 03-03-2014 WARE BRO GASTRITIS&G ASTRODUODIT IS W/O MENTION HEMORR 7213 LUMBOSACRAL 01-17-2014 V[facility] TREVINO SPONDYLOSIS WITHOUT MYELOPATHY 7831 ABNORMAL 10-13-2013 [facility] WEIGHT GAIN [facility] INC 60317 DIARRHEA 10-13-2013 [facility]OS[facility] INC V0481 NEED 08-23-2013 NATHALY RAI PROPHYLACTI AREN C VACCINATION &INOCULATIO N FLU 3510 BELLS PALSY 07-24-2013 [facility] 7218 OTHER 07-24-2013 [facility] DISORDERS OF SPINE 07411 OTH 07-18-2013 [facility] W/O INTRACT INC W/O STATUS MIGRAINOSUS 82014 OTHER 06-18-2013 [facility] CONDITIONS BUBBA OF BRAIN 7220 DISPLCMT 06-18-2013 [facility] CERV BUBBA INTERVERT DISC WITHOUT MYELOPATHY 7249 OTHER 06-18-2013 [facility] UNSPECIFIED BUBBA BACK DISORDER V571 OTHER 05-28-2013 [facility] THERAPY INC 19183 UNSPECIFIED 03-06-2013 [facility] ARTHROPATHY [facility] P SHOULDER REGION 02527 PAIN IN 03-06-2013 [facility] EMERGENCY SHOULDER SERVICES REGION 7295 PAIN IN 03-06-2013 [facility] SOFT BUBBA TISSUES OF LIMB 76041 OTHER 03-06-2013 [facility] NONSPECIFIC BUBBA ABNORMAL FINDING OF LUNG FIELD 97083 MICROSCOPIC 01-26-2013 NATHALY RAI HEMATURIA AREN 8460 SPRAIN AND 01-26-2013 NATHALY RAI STRAIN OF AREN LUMBOSACRAL 13436 OTHER 01-25-2013 [facility] DISEASES OF BUBBA SPLEEN 441.4 441.4 ABDOM 01-25-2013 [place] AORTIC [facility] 4411 THORACIC 01-25-2013 [facility] ANEURYSM, BUBBA RUPTURED 558.9 558.9 01-25-2013 [facility] IT NEC 5589 OTH&UNSPEC 01-25-2013 [facility] P GASTROENTER ITIS&COLITI S 96930 HYPERTROPHY 01-25-2013 [facility] PROSTATE BUBBA W/O UR OBST & OTH LUTS 6019 UNSPECIFIED 12-30-2012 [facility] PROSTATITIS INC 7823 EDEMA 12-30-2012 [facility] HOSP INC 08920 UNSPECIFIED 12-29-2012 NATHALY RAI AREN CONSTIPATIO N 28396 ABDOMINAL 12-15-2012 [facility] PAIN, [facility] P 4400 ATHEROSCLER 12-14-2012 [facility] OSIS OF BUBBA AORTA 37450 ABDOMINAL 12-14-2012 [place] CHARLEY PAIN, UNSPECIFIED SITE 92498 HEMATURIA 08-29-2012 [place] UNSPECIFIED MEDICAL IMAGING ASS 08206 OTHER 08-21-2012 [place] SPECIFIED MEDICAL DISORDERS IMAGING ASS OF BLADDER 29179 ABDOMINAL 08-08-2012 [facility] PAIN RIGHT BUBBA LOWER QUADRANT 4419 AORTIC 08-01-2012 JAMA ANTONY ANEUR UNSPEC SITE WITHOUT MENTION RUPTURE 7881 DYSURIA 07-24-2012 JAMA ANTONY 40158 PRIMARY 06-14-2012 NICK LACRIMAL JAM ATROPHY 60824 VITREOUS 06-14-2012 NICK DEGENERATIO JAM N 38935 UNSPECIFIED 04-04-2012 KANE FERRARA BLEPHAROCON JUNCTIVITIS 21020 ESOPHAGEAL 04-04-2012 B[facility]ON [facility] REFLUX 5533 DIAPHRAGMAT 04-04-2012 [facility] [place] ANDREW W/O MENTION OBSTRUCTION /GANGREN 72420 OTHER LATE 03-25-2012 [facility] EFFECTS OF CEREBROVASC ULAR DISEASE V711 OBSERVATION 03-24-2012 [place] FOR MEDICAL SUSPECTED IMAGING ASS MALIGNANT NEOPLASM 436 ACUTE BUT 02-28-2012 NATHALY RAI ILL-DEFINED AREN CEREBROVASC ULAR DISEASE 54897 UNS 12-22-2011 EDGE DONNIE MALIGNANT NEOPLASM EYELID INCLUDING CANTHUS 02310 BASAL CELL 12-22-2011 [place] CARCINOMA ANESTHESIA OF EYELID ASSOC L INCLUDING CANTHUS 68978 OTHER 12-22-2011 EDGE DONNIE CHRONIC DERMATITIS DUE TO SOLAR RADIATION 87647 OTHER 11-28-2011 [facility] SPECIFIED BUBBA ACQUIRED DEFORMITY OF HEAD 4660 ACUTE 10-11-2011 NATHALY RAI BRONCHITIS AREN 7862 COUGH 10-11-2011 [place] [facility] 2392 NEOPLASMS 10-01-2011 [facility] LB UNSPEC NATURE BONE SOFT TISSUE&SKIN 7226 DEGENERATIO 09-21-2011 [place] INTERVERTEB INTERNAL RAL DISC MED SITE UNSPEC 30056 BLEPHARITIS 09-07-2011 OD[facility] LB , UNSPECIFIED 3670 HYPERMETROP 08-20-2011 ISHA IA VISION 14532 ABDOMINAL 07-27-2011 NEW PAIN RIGHT [facility] PSC QUADRANT 7210 CERVICAL 07-22-2011 NEW SPONDYLOSIS [place] WITHOUT CLINIC [facility] MYELOPATHY 2250 BENIGN 06-15-2011 NEW NEOPLASM OF [facility] PSC 71757 SHORTNESS 06-03-2011 [place] OF BREATH MEDICAL IMAGING ASS 1101 DERMATOPHYT 05-18-2011 [place] OSIS OF [place] NAIL INTERNAL MED 7822 LOCALIZED 05-18-2011 [place] SUPERFICIAL [place] SWELLING INTERNAL MASS OR MED LUMP 7906 OTHER 04-13-2011 [place] ABNORMAL [place] BLOOD INTERNAL CHEMISTRY MED 45367 DYSPHAGIA 02-25-2011 [facility] UNSPECIFIED [facility] INC 7871 HEARTBURN 02-16-2011 C CELESTINO ADAME MD [facility] 90469 ABDOMINAL 02-16-2011 C [facility] EPIGASTRIC PSC 1919 MALIGNANT 02-03-2011 [place] NEOPLASM OF [place] BRAIN INTERNAL UNSPECIFIED MED SITE 48902 DYSPHAGIA 02-03-2011 [facility] DUE TO [place] CEREBROVASC INTERNAL ULAR MED DISEASE 1104 DERMATOPHYT 12-14-2010 [facility] OSIS OF [place] FOOT INTERNAL MED 9953 ALLERGY 12-12-2010 [facility] UNSPECIFIED [place] NOT INTERNAL ELSEWHERE MED CLASSIFIED 7821 RASH AND 12-09-2010 [facility] OTHER [place] NONSPECIFIC INTERNAL SKIN MED ERUPTION 7079 CHRONIC 12-07-2010 [facility] ULCER OF [place] UNSPECIFIED INTERNAL SITE MEDI 3688 OTHER 09-21-2010 [place] SPECIFIED MEDICAL VISUAL IMAGING ASS DISTURBANCE S 01782 MUSCLE 09-21-2010 [facility] (GENERALIZE INC D) 36862 FACIAL 09-21-2010 [facility] 53048 NAUSEA WITH 07-27-2010 [facility] SERVICE 89737 OTHER AND 07-25-2010 [facility] UNSPECIFIED [place] INTERNAL CONJUNCTIVI MED TIS 5409 ACUTE 05-05-2010 [place] [address]I [facility] WITHOUT HOSPITAL MENTION PROF SERV PERITONITIS 541 APPENDICITI 05-05-2010 [place] S, [facility]IFIED [facility] 7804 DIZZINESS 05-05-2010 [place] [facility] V4589 OTHER 05-05-2010 [facility] OTHER PROF SERV 51932 PAINFUL 11-05-2009 [facility] RESPIRATION [place] INTERNAL MED 50539 OTHER SPEC 09-03-2009 [place] [facility] GASTRITIS SERV WITHOUT FOUNDATIO MENTION HEMORRHAGE 08301 DUODENITIS 09-03-2009 [place] WITHOUT [facility] MENTION OF INC HEMORRHAGE 39904 NAUSEA 09-03-2009 [facility] & [facility]ONE CYTOLOGY LAB 31157 UNSPECIFIED 05-07-2009 [facility] TIS PROF SERV 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 UNSPECIFIED MED 48287 OTHER 01-13-2009 [facility] ANXIETY [place] INTERNAL MED 4439 UNSPECIFIED 12-20-2008 [facility] [facility]HERAL [facility] VASCULAR INC DISEASE 80861 ONYCHIA AND 12-16-2008 [facility] PARONYCHIA [place] OF TOE INTERNAL MED 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 CHRONIC 11-13-2008 [facility] PAIN [place] SYNDROME INTERNAL MED 4659 ACUTE URIS 10-30-2008 [facility] OF [facility] UNSPECIFIED INTERNAL SITE MED 92024 ABDOMINAL 07-17-2008 [place] PAIN, LEFT CLINIC UPPER LABORATORY QUADRANT 20471 DISORDER OF 06-25-2008 [facility] CARTILAGE INC UNSPECIFIED 3674 PRESBYOPIA 04-11-2008 [facility]LE[facility] 7802 SYNCOPE AND 03-29-2008 [place] [facility] 56504 TRANSIENT 03-28-2008 [facility] AMBULANCE OF SERVICE AWARENESS 4011 ESSENTIAL 03-14-2008 NEW HYPERTENSIO [place] N, BENIGN CLINIC PSC 44574 ANNIE HTN 02-27-2008 NEW HEART [place] DISEASE CLINIC 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 2409 GOITER, 02-20-2008 [place] [facility] 7931 NONSPEC 02-20-2008 [place] FIND RAD MEDICAL OTH EXAM IMAGING BODY [...] 80 4- 9- 00 00 SI ve IA 21 20 20 49 DE DE 61 17 17 91 0 24 PH 40 AR MA MG CY TA OF BL CY ET NT HI AN A IN C ME 23 07 06 30 30 00 EA Ac TF 15 -2 -[address] ti OR 50 4- 9- 00 00 SI ve IA 10 20 20 49 DE N 21 [...] 5 49 PH CE AR TA MA IA CY NO PH OF N CY 10 [...] 50 4- 5- 00 00 SI ve IA 10 20 20 49 DE N 21 17 17 54 HC 0 03 PH L AR 50 MA 0 CY MG OF TA CY BL NT ET HI AN A IN C FU 00 07 08 30 30 00 EA Ac RO 37 -2 -[address] SE 80 4- 5- 00 00 SI ve IA 21 20 20 49 DE DE 61 [...] 5 66 PH CE AR TA MA IA CY NO PH OF N CY 10 [...] 50 2- 8- 00 00 SI ve IA 10 20 20 49 DE N 21 [...] 80 6- 1- 00 00 SI ve IA 21 20 20 49 DE DE 61 [...] 5 80 PH CE AR TA MA IA CY NO PH OF N CY 10 [...] 50 2- 3- 00 00 SI ve IA 10 20 20 48 DE N 21 [...] 5 38 PH CE AR TA MA IA CY NO PH OF N CY 10 [...] ti SE 80 9 00 SI ve IA 21 20 20 48 DE DE 61 [...] ti OR 31 6 00 SI ve IA 04 20 20 48 DE N 80 [...] 40 0- 2- 00 00 SI ve IA 62 20 20 48 DE DE 51 [...] 5 38 PH CE AR TA MA IA CY NO PH OF N CY 10 [...] 31 0- 1- 00 00 SI ve IA 04 20 20 48 DE N 80 [...] ve LO 37 20 20 48 DE HI 40 17 17 05 AM 1 71 [...] 5 33 PH CE AR TA MA IA CY NO PH OF N CY 10 NT -3 HI 25 AN A IN C FU 63 03 04 30 30 00 EA Ac RO 30 -0 -[address] ti SE 40 9- 4- 00 00 SI ve IA 62 20 20 47 DE DE 51 [...] OR 50 7- 4 00 SI ve IA 10 20 20 47 DE N 21 17 17 66 HC 0 02 PH L AR 50 MA 0 CY MG OF TA CY BL NT ET HI AN A IN C ES 65 02 03 30 30 00 EA Ac CI 86 -1 -[address] ti TA 20 7- 4 00 SI ve LO 37 20 20 47 DE HI 40 17 17 66 AM 1 03 [...] 5 63 PH CE AR TA MA IA CY NO PH OF N CY 10 [...] 40 0- 3- 00 00 SI ve IA 62 20 20 47 DE DE 51 [...] 50 6- 7- 00 00 SI ve IA 10 20 20 47 DE N 21 [...] 5 53 PH CE AR TA MA IA CY NO PH OF N CY 10 [...] 40 6- 7- 00 00 SI ve IA 62 20 20 47 DE DE 51 [...] 50 5- 0- 00 00 SI ve IA 10 20 20 46 DE N 21 [...] 5 68 PH CE AR TA MA IA CY NO PH OF N CY 10 [...] RT 40 9- 9- 00 SI 16 IA ve AN 22 20 20 0 DE [...] PE 40 4- 4- 00 SI 87 IA ve NT 66 20 20 0 DE E IN 20 13 13 JR 1 PH 30 AR WI 0 MA LL MG CY IA M CA OF F PS UL CY E NT HI AN A LO 16 06 11 4 15 15 EA 31 Ac SA 71 -1 -[address] 99 KE ti RT 40 0- 2- 00 SI 99 IA ve AN 22 20 20 0 DE E -H [address] 1 PH Z AR [place] 10 MA LL 0- CY IA 12 M .5 OF F MG CY NT TA HI B AN A SI 16 11 11 0 30 30 EA 33 Ac MV 71 -1 -[address] 61 KE ti 40 2- 2- 00 SI 39 IA ve TA 68 20 20 0 DE E TI 40 13 13 JR N 3 PH 40 AR WI MA LL MG CY IA M TA OF F BL ET CY NT HI AN A OM 62 09 11 2 30 30 EA 32 Ac EP 17 -0 -[address] 86 KE ti RA 50 4- 1- 00 SI 09 IA ve ZO 13 20 20 0 DE E LE 63 13 [address] AR [place] MA LL 40 CY IA M MG OF F CA CY PS NT UL HI E AN A ME 00 08 11 3 30 30 EA 32 Ac TF 09 -0 -[address] 52 KE ti OR 31 2- 9- 00 SI 59 IA ve IA 04 20 20 0 DE E N 81 13 13 JR HC 0 PH L AR WI 50 MA LL 0 CY IA MG M OF F TA BL CY ET NT HI AN A FU 63 08 11 2 30 30 EA 32 MC Ac RO 30 -2 -[address] 80 KE ti SE 40 9- 5- 00 SI 32 IA ve IA 62 20 20 0 DE E DE 51 13 13 JR 0 PH 40 AR [place] MA LL MG CY IA M TA OF F BL ET CY NT HI AN A LE 00 07 11 3 30 30 EA 32 Ac VO 37 -2 -[address] 46 KE ti TH 81 6- 2- 00 SI 48 IA ve YR 80 20 20 0 DE [...] AZ 83 4- 2- 00 SI 89 IA ve EP 00 20 20 0 DE E AM 45 13 13 JR 1 0 PH AR WI MG MA LL CY IA TA M BL OF F ET CY NT HI AN A LO 16 06 10 4 15 15 EA 31 MC Ac SA 71 -1 -[address] 99 KE ti RT 40 0- 5- 00 SI 99 IA ve AN 22 20 20 0 DE [...] AZ 83 4- 4- 00 SI 89 IA ve EP 00 20 20 0 DE E AM 45 13 13 JR 1 0 PH AR WI MG MA LL CY IA TA M BL OF F ET CY NT HI AN A SI 16 08 10 2 30 30 EA 32 MC Ac MV 71 -0 -[address] 57 KE ti 40 7- 2- 00 SI 30 IA ve TA 68 20 20 0 DE E TI 40 13 13 JR N 3 PH 40 AR [place] MA LL MG CY IA M TA OF F BL ET CY NT HI AN A OM 62 09 10 2 30 30 EA 32 MC Ac EP 17 -0 -[address] 86 KE ti RA 50 4- 9- 00 SI 09 IA ve ZO 13 20 20 0 DE E LE 63 13 [address] [place] MA LL 40 CY IA M MG OF F CA CY PS NT UL HI E AN A ME 00 08 10 3 30 30 EA 32 MC Ac TF 09 -0 -[address] 52 KE ti OR 31 2- 7- 00 SI 59 IA ve IA 04 20 20 0 DE E N 81 13 13 JR HC 0 PH L AR [place] 50 MA LL 0 CY IA MG M OF F TA BL CY ET NT HI AN A FU 63 08 10 2 30 30 EA 32 MC Ac RO 30 -2 -[address] 80 KE ti SE 40 9- 3- 00 SI 32 IA ve IA 62 20 20 0 DE E DE [...] ti 4 ve MG /2 ML AL HI 51 02 0 No OM 07 -2 ET 90 8- Lo NG 89 20 ng ZI 52 13 er NE 0H Ac 25 ti MG ve TA BL ET TA KE EX 00 08 10 2 30 30 EA 23 MC Ac FO 07 -1 -[address] 73 KE ti RG 80 9- 9- 00 SI 45 IA ve E 48 20 20 DE E [...] 3- 8- 00 SI 83 ON ve IA 04 20 20 DE N 81 11 [...] AC 40 4- 4- 00 SI 01 IA ve ET 70 20 20 DE E [...] SE 40 2- 0- 00 SI 35 IA ve IA 62 20 20 DE E DE 51 11 11 JR 0 PH 40 AR [place] MA LL MG CY IA M TA OF F BL ET CY NT HI AN A NE 00 09 10 2 30 30 EA 23 MC Ac XI 18 -0 -[address] 98 KE ti UM 65 6- 0- 00 SI 46 IA ve 04 [address] [...] ti 10 7- 7- 00 SI 81 IA ve 54 20 20 0 DE E [...] RG 80 9- 4- 00 SI 45 IA ve E 48 20 20 DE E 10 91 11 11 JR -1 5 PH 60 AR [place] MA LL MG CY IA M TA OF F BL ET CY NT HI AN A SI 16 05 09 3 30 30 EA 22 MC Ac MV 71 -3 -[address] 74 KE ti 40 1- 4- 00 SI 35 IA ve TA 68 20 20 DE E [...] 2- 2- 00 SI 16 ON ve IA 62 20 20 DE DE 51 11 [...] ti 10 7- 7- 00 SI 45 IA ve 54 20 20 0 DE E 00 11 11 JR 1 PH AR WI MA LL CY IA M OF F CY NT HI AN A CL 00 09 09 0 90 30 EA 23 MC Ac ON 09 -0 -[address] 98 KE ti AZ 30 6- 6- 00 SI 47 IA ve EP 83 20 20 DE E AM 20 11 11 JR 1 PH 0. [place] 5 MA LL MG CY IA M TA OF F BL ET CY NT HI AN A NE 00 08 08 2 30 30 EA 23 MC Ac XI 18 -3 -[address] 89 KE ti UM 65 1- 1- 00 SI 75 IA ve 04 [address] [...] 3- 3- 00 SI 83 ON ve IA 04 20 20 DE N 81 11 [...] RG 80 9- 9- 00 SI 45 IA ve E 48 20 20 DE E [...] 6- 6- 00 SI 13 ON ve IA 62 20 20 DE DE [address] 0 PH EP 40 AR HE MA N MG CY A TA OF BL ET CY NT HI AN A SI 16 05 08 3 30 30 EA 22 MC Ac MV 71 -3 -[address] 74 KE ti 40 1- 6- 00 SI 35 IA ve TA 68 20 20 DE E TI 40 11 11 JR N 3 PH 40 AR [place] MA LL MG CY IA M TA OF F BL ET CY NT HI AN A CL 00 08 08 0 90 30 EA 23 MC Ac ON 09 -0 -[address] 54 KE ti AZ 30 5- 5- 00 SI 97 IA ve EP 83 20 20 DE E AM 20 11 11 JR 1 PH 0. AR [place] 5 MA LL MG CY IA M TA OF F BL ET CY NT HI AN A ZE 66 06 08 3 30 30 EA 23 MC Ac TI 58 -2 -[address] 05 KE ti A 20 3- 2- 00 SI 21 IA ve 10 41 20 20 DE E 43 11 11 JR MG 1 PH AR WI TA MA LL BL CY IA ET M OF F CY NT HI AN A NE 00 05 08 2 30 30 EA 22 MC Ac XI 18 -2 -[address] 69 KE ti UM 65 5- 2- 00 SI 36 IA ve 04 [address] [...] RG 80 1- 6- 00 SI 11 IA ve E 48 20 20 DE E 10 91 11 11 JR -1 5 PH 60 AR [place] MA LL MG CY IA M TA OF F BL ET CY NT HI AN A ME 00 05 07 1 60 30 EA 22 BE Ac TF 09 -1 -[address] 56 SS ti OR 31 7- 1- 00 SI 55 ON ve IA 04 20 20 DE N 81 11 [...] AZ 30 5- 5- 00 SI 75 IA ve EP 83 20 20 DE E AM 20 11 11 JR 1 PH 0. AR [place] 5 MA LL MG CY IA M TA OF F BL ET CY NT HI AN A FU 63 05 07 2 30 30 EA 22 BE Ac RO 30 -0 -[address] 36 SS ti SE 40 3- 4- 00 SI 75 ON ve IA 62 20 20 DE DE [address] 0 PH EP 40 AR HE MA N MG CY A TA OF BL ET CY NT HI AN A SI 16 05 07 3 30 30 EA 22 MC Ac MV 71 -3 -[address] 74 KE ti 40 1- 2- 00 SI 35 IA ve TA 68 20 20 DE E TI 40 11 11 JR N 3 PH 40 AR [place] MA LL MG CY IA M TA OF F BL ET CY NT HI AN A NE 00 05 06 2 30 30 EA 22 MC Ac XI 18 -2 -[address] 69 KE ti UM 65 5- 5- 00 SI 36 IA ve 04 [address] 03 11 11 JR 1 PH 40 AR [place] MA LL MG CY IA M CA OF F PS UL CY E NT HI AN A ZE 66 06 06 3 30 30 EA 23 MC Ac TI 58 -2 -[address] 05 KE ti A 20 3- 3- 00 SI 21 IA ve 10 41 20 20 DE E [...] RG 80 1- 5- 00 SI 11 IA ve E 48 20 20 DE E [...] AZ 30 7- 7- 00 SI 61 IA ve EP 83 20 20 DE E AM 20 11 11 JR 1 PH 0. [place] 5 MA LL MG CY IA M TA OF F BL ET CY NT HI AN A FU 63 05 06 2 30 30 EA 22 BE Ac RO 30 -0 -[address] 36 SS ti SE 40 3- 2- 00 SI 75 ON ve IA 62 20 20 DE DE [address] 0 PH EP 40 AR HE MA N MG CY A TA OF BL ET CY NT HI AN A SI 16 05 05 3 30 30 EA 22 MC Ac MV 71 -3 -[address] 74 KE ti 40 1- 1- 00 SI 35 IA ve TA 68 20 20 DE E TI 40 11 11 JR N 3 PH 40 AR WI MA LL MG CY IA M TA OF F BL ET CY NT HI AN A NE 00 05 05 2 30 30 EA 22 MC Ac XI 18 -2 -[address] 69 KE ti UM 65 5- 6- 00 SI 36 IA ve 04 [address] [...] 7- 7- 00 SI 55 ON ve IA 04 20 20 DE N [address] HC 0 PH EP L AR HE 50 MA N 0 CY A MG OF TA BL CY ET NT HI AN A EX 00 04 05 3 30 30 EA 22 MC Ac FO 07 -1 -[address] 06 KE ti RG 80 1- 6- 00 SI 11 IA ve E 48 20 20 DE E [...] 3- 3- 00 SI 75 ON ve IA 62 20 20 DE DE [address] 0 PH EP 40 AR HE MA N MG CY A TA OF BL ET CY NT HI AN A NE 00 02 04 2 30 30 EA 21 MC Ac XI 18 -2 -[address] 33 KE ti UM 65 1- 5- 00 SI 04 IA ve 04 [address] 03 11 11 JR 1 PH 40 AR [place] MA LL MG CY IA M CA OF F PS UL CY E NT HI AN A SI 16 02 04 2 30 30 EA 21 MC Ac MV 71 -1 -[address] 26 KE ti 40 6- 5- 00 SI 51 IA ve TA 68 20 20 DE E TI 40 11 11 JR N 3 PH 40 AR WI MA LL MG CY IA M TA OF F BL ET CY NT HI AN A EX 00 04 04 3 30 30 EA 22 MC Ac FO 07 -1 -[address] 06 KE ti RG 80 1- 1- 00 SI 11 IA ve E 48 20 20 DE E 10 91 11 11 JR -1 5 PH 60 AR [place] MA LL MG CY IA M TA OF F BL ET CY NT HI AN A 00 04 04 0 12 30 EA 22 MC Ac 59 -1 -[address] 05 KE ti 10 0- 0- 00 SI 59 IA ve 54 20 20 0 DE E 00 11 11 JR 1 PH AR WI MA LL CY IA M OF F CY NT HI AN A CL 00 04 04 0 90 30 EA 22 MC Ac ON 09 -0 -[address] 01 KE ti AZ 30 6- 6- 00 SI 40 IA ve EP 83 20 20 DE E AM 20 11 11 JR 1 PH 0. [place] 5 MA LL MG CY IA M TA OF F BL ET CY NT HI AN A HY 00 04 04 2 30 30 EA [address] 59 -0 -[address] 97 KE ti OC 10 4- 4- 00 SI 70 IA ve HL 34 20 20 DE E [...] DE TA RA 10 11 11 D IA 5 PH CA DE AR MP 5 MA BE CY LL MG K OF TA BL CY ET NT HI AN A SI 16 02 03 2 30 30 EA 21 MC Ac MV 71 -1 -[address] 26 KE ti 40 6- 2- 00 SI 51 IA ve TA 68 20 20 DE E TI 40 11 11 JR N 3 PH 40 AR WI MA LL MG CY IA M TA OF F BL ET CY NT HI AN A NE 00 02 03 2 30 30 EA 21 MC Ac XI 18 -2 -[address] 33 KE ti UM 65 1- 2- 00 SI 04 IA ve 04 [address] [...] RG 80 3- 9- 00 SI 32 IA ve E 48 20 20 DE E 10 91 10 11 JR -1 5 PH 60 AR [place] MA LL MG CY IA M TA OF F BL ET CY NT HI AN A HI 00 01 03 2 20 5 EA 20 MC Ac OM 78 -1 -[address] 84 KE ti ET 11 7- 9 SI 38 IA ve NG 83 20 20 DE E ZI 01 11 11 JR NE 0 PH AR WI 25 MA LL CY IA MG M OF F TA BL CY ET NT HI AN A CL 00 03 03 0 90 30 EA 21 MC Ac ON 09 -0 -[address] 58 KE ti AZ 30 7- 7 SI 91 IA ve EP 83 20 20 DE E AM 20 11 11 JR 1 PH 0. [place] 5 MA LL MG CY IA M TA OF F BL ET CY NT HI AN A HY 00 12 03 2 30 30 EA [address] 59 -2 -[address] 58 KE ti OC 10 9 4 SI 00 IA ve HL 34 20 20 DE E [...] ti UM 65 1- - SI 04 IA ve 04 [address] 03 11 11 JR 1 PH 40 [place] MA LL MG CY IA M CA OF F PS UL CY E NT HI AN A FL 00 01 02 1 7. 7 EA 20 MC Ac UC 17 -1 -[address] 81 KE ti ON 25 5- 6- 0 SI 97 IA ve AZ 41 20 20 DE E OL 14 11 11 JR E 6 PH 10 AR WI 0 MA LL MG CY IA M TA OF F BL ET CY NT HI AN A SI 16 02 02 2 30 30 EA 21 MC Ac MV 71 -1 -[address] 26 KE ti 40 6- 6- 00 SI 51 IA ve TA 68 20 20 DE E TI 40 11 11 JR N 3 PH 40 AR [place] MA LL MG CY IA M TA OF F BL ET CY NT HI AN A [place] 00 01 02 1 60 4 EA [address] 16 -1 -[address] 84 KE ti AT 80 7- 5- 00 SI 39 IA ve IN 08 20 20 DE E -T 16 11 11 JR RI 0 PH AM AR WI CI MA LL NO CY IA LO M NE OF F CR CY EA NT M HI AN A 00 02 02 0 12 30 EA 21 MC Ac 59 -1 -[address] 20 KE ti 10 1- 1- 00 SI 16 IA ve 54 20 20 0 DE E 00 11 11 JR 1 PH AR WI MA LL CY IA M OF F CY NT HI AN A CL 00 12 02 2 90 30 EA 20 MC Ac ON 09 -0 -[address] 32 KE ti AZ 30 9- 7- 00 SI 83 IA ve EP 83 20 20 DE E AM 20 10 11 JR 1 PH 0. [place] 5 MA LL MG CY IA M TA OF F BL ET CY NT HI AN A EX 00 12 02 3 30 30 EA 20 MC Ac FO 07 -0 -[address] 24 KE ti RG 80 3- 5- 00 SI 32 IA ve E 48 20 20 DE E 10 91 10 11 JR -1 5 PH 60 AR [place] MA LL MG CY IA M TA OF F BL ET CY NT HI AN A HY 00 12 01 2 30 30 EA [address] 59 -2 -[address] 58 KE ti OC 10 9- 0- 00 SI 00 IA ve HL 34 20 20 DE E [...] UM 65 8- 0- 00 SI 05 IA ve 04 [address] 03 10 11 JR 1 PH 40 AR [place] MA LL MG CY IA M CA OF F PS UL CY E NT HI AN A HI 00 01 01 2 20 5 EA 20 MC Ac OM 78 -1 -[address] 84 KE ti ET 11 7- 7- 00 SI 38 IA ve NG 83 20 20 DE E ZI 01 11 11 JR NE 0 PH AR WI 25 MA LL CY IA MG M OF F TA BL CY ET NT HI AN A [place] 00 01 01 1 60 4 EA [address] 16 -1 -[address] 84 KE ti AT 80 7- 7- 00 SI 39 IA ve IN 08 20 20 DE E -T 16 11 11 JR RI 0 PH AM AR WI CI MA LL NO CY IA LO M NE OF F CR CY EA NT M HI AN A 00 01 01 0 30 15 EA 20 Ac 14 - -[address] 81 KE ti 31 5- 5- 00 SI 98 IA ve 47 20 20 DE E 70 11 11 JR 5 PH AR WI MA LL CY IA M OF F CY NT HI AN A FL 00 01 01 1 7. 7 EA 20 MC UC 17 -1 -[address] 81 KE ti ON 25 5- 5- 0 SI 97 IA ve AZ 41 20 20 DE E OL 14 11 11 JR E 6 PH 10 AR WI 0 MA LL MG CY IA M TA OF F BL ET CY NT HI AN A SI 16 12 01 1 30 30 EA 20 MC MV 71 -1 -[address] 42 KE ti 40 6- 5- 00 SI 49 IA ve TA 68 20 20 DE E TI 40 10 11 JR N 3 PH 40 AR [place] MA LL MG CY IA M TA OF F BL ET CY NT HI AN A MU 00 01 01 0 22 4 EA 20 [facility] PI -[address] 81 KE ti RO 31 4- 4- 00 SI 11 IA ve CI 01 20 20 DE E [...] RO 31 0- 0- 00 SI 00 IA ve CI 01 20 20 DE E N 04 11 11 JR 2% 2 PH AR WI OI MA LL NT CY IA ME M NT OF F CY NT HI AN A GALLAGHER 53 01 01 0 20 10 EA 20 MC Ac LF 74 -1 -[address] 75 KE ti AM 60 0- 0- 00 SI 99 IA ve ET 27 20 20 DE E HO 20 11 11 JR XA 5 PH ZO AR WI LE MA LL -T CY IA MP M OF F DS CY TA NT BL HI ET AN A CL 00 12 01 2 90 30 EA 20 MC Ac ON 09 -0 -[address] 32 KE ti AZ 30 SI 83 IA ve EP 83 20 20 DE E AM 20 10 11 JR 1 PH 0. [place] 5 MA LL MG CY IA M TA OF F BL ET CY NT HI AN A EX 00 12 01 3 30 30 EA 20 MC Ac FO 07 -0 -[address] 24 KE ti RG 80 3 4 SI 32 IA ve E 48 20 20 DE E 10 91 10 11 JR -1 5 PH 60 AR [place] MA LL MG CY IA M TA OF F BL ET CY NT HI AN A HY 00 12 12 2 30 30 EA [address] 59 -2 -[address] 58 KE ti OC 10 SI 00 IA ve HL 34 20 20 DE E [...] UM 65 8- 0- 00 SI 05 IA ve 04 [address] 03 10 10 JR 1 PH 40 [place] MA LL MG CY IA M CA OF F PS UL CY E NT HI AN A SI 16 12 12 1 30 30 EA 20 MC Ac MV 71 -1 -[address] 42 KE ti 40 6 6 SI 49 IA ve TA 68 20 20 DE E TI 40 10 10 JR N 3 PH 40 AR [place] MA LL MG CY IA M TA OF F BL ET CY NT HI AN A CL 00 12 12 2 90 30 EA 20 MC Ac ON 09 -0 -[address] 32 KE ti AZ 30 SI 83 IA ve EP 83 20 20 DE E AM 20 10 10 JR 1 PH 0. [place] 5 MA LL MG CY IA M TA OF F BL ET CY NT HI AN A EX 00 12 12 3 30 30 EA 20 MC Ac FO 07 -0 -[address] 24 KE ti RG 80 3- 3 00 SI 32 IA ve E 48 20 20 DE E 10 91 10 10 JR -1 5 PH 60 AR [place] MA LL MG CY IA M TA OF F BL ET CY NT HI AN A HY 00 09 11 2 30 30 EA [address] 59 -2 -[address] 23 KE ti OC 10 SI 17 IA ve HL 34 20 20 DE E [...] UM 65 8- 0- 00 SI 05 IA ve 04 [address] 03 10 10 JR 1 PH 40 AR [place] MA LL MG CY IA M CA OF F PS UL CY E NT HI AN A SI 16 08 11 3 30 30 EA 18 MC Ac MV 71 -0 -[address] 64 KE ti 40 9- SI 89 IA ve TA 68 20 20 DE E TI 40 10 10 JR N 3 PH 40 AR [place] MA LL MG CY IA M TA OF F BL ET CY NT HI AN A CL 00 11 11 0 90 30 EA 19 MC Ac ON 09 -0 -[address] 88 KE ti AZ 30 8 8 00 SI 62 IA ve EP 83 20 20 DE E AM 20 10 10 JR 1 PH 0. [place] 5 MA LL MG CY IA M TA OF F BL ET CY NT HI AN A EX 00 05 11 5 30 30 EA 17 MC Ac FO 07 -2 -[address] 70 KE ti RG 80 2 3 00 SI 24 IA ve E 48 20 20 DE E 10 91 10 10 JR -1 5 PH 60 AR [place] MA LL MG CY IA M TA OF F BL ET CY NT HI AN A HY 00 09 10 2 30 30 EA [address] 59 -2 -[address] 23 KE ti OC 10 1- 3 SI 17 IA ve HL 34 20 20 DE E OR 70 10 10 JR OT 1 PH HI AR [place] MA LL ID CY IA E M 12 OF F .5 CY MG NT HI CP AN A LE 00 08 10 2 30 30 EA 18 Ac VO 37 -1 -[address] 75 KE ti TH 81 8- 3 00 SI 58 IA ve YR 80 20 20 DE E OX 30 10 10 JR IN 1 PH E [place] 50 MA LL CY IA MC M G OF F TA BL CY ET NT HI AN A NE 00 10 10 3 30 30 EA 19 Ac XI 18 -1 -[address] 59 KE ti UM 65 8 8 SI 05 IA ve 04 [address] 03 10 10 JR 1 PH 40 [place] MA LL MG CY IA M CA OF F PS UL CY E NT HI AN A SI 16 08 10 3 30 30 EA 18 Ac MV 71 -0 -[address] 64 KE ti 40 9 5 SI 89 IA ve TA 68 20 20 DE E TI 40 10 10 JR N 3 PH 40 AR [place] MA LL MG CY IA M TA OF F BL ET CY NT HI AN A 00 10 10 0 12 30 EA 19 Ac 59 -1 -[address] 53 KE ti 10 3 3 SI 11 IA ve 54 20 20 0 DE E 00 10 10 JR 1 PH AR WI MA LL CY IA M OF F CY NT HI AN A CL 00 10 10 0 90 30 EA 19 Ac ON 09 -0 -[address] 46 KE ti AZ 30 8 8 SI 44 IA ve EP 83 20 20 DE E AM 20 10 10 JR 1 PH 0. [place] 5 MA LL MG CY IA M TA OF F BL ET CY NT HI AN A EX 00 05 10 5 30 30 EA 17 MC Ac FO 07 -2 -[address] 70 KE ti RG 80 2- 2- 00 SI 24 IA ve E 48 20 20 DE E 10 91 10 10 JR -1 5 PH 60 AR [place] MA LL MG CY IA M TA OF F BL ET CY NT HI AN A GALLAGHER 53 09 09 0 20 10 EA 19 Ac LF 74 -2 -[address] 28 KE ti AM 60 4- 4- 00 SI 32 IA ve ET 27 20 20 DE E HO 20 10 10 JR XA 5 PH ZO AR WI LE MA LL -T CY IA MP M OF F DS CY TA NT BL HI ET AN A LE 00 08 09 2 30 30 EA 18 Ac VO 37 -1 -[address] 75 KE ti TH 81 8- 1- 00 SI 58 IA ve YR 80 20 20 DE E OX 30 10 10 JR IN 1 PH E [place] 50 MA LL CY IA MC M G OF F TA BL CY ET NT HI AN A HY 00 09 09 2 [address] 59 -2 -[address] 23 KE ti OC 10 1- 1- 00 SI 17 IA ve HL 34 20 20 DE E OR 70 10 10 JR OT 1 PH HI AR [place] MA LL ID CY IA E M 12 OF F .5 CY MG NT HI CP AN A SI 16 08 09 3 30 30 EA 18 Ac MV 71 -0 -[address] 64 KE ti 40 9- 4- 00 SI 89 IA ve TA 68 20 20 DE E TI 40 10 10 JR N 3 PH 40 AR [place] MA LL MG CY IA M TA OF F BL ET CY NT HI AN A 00 09 09 0 12 30 EA 19 Ac 59 -1 -[address] 10 KE ti 10 3- 3- 00 SI 99 IA ve 54 20 20 0 DE E 00 10 10 JR 1 PH AR [place] MA LL CY IA M OF F CY NT HI AN A CL 00 09 09 0 90 30 EA 19 Ac ON 09 -0 -[address] 04 KE ti AZ 30 8- 8- 00 SI 54 IA ve EP 83 20 20 DE E AM 20 10 10 JR 1 PH 0. [place] 5 MA LL MG CY IA M TA OF F BL ET CY NT HI AN A EX 00 05 09 5 30 30 EA 17 Ac FO 07 -2 -[address] 70 KE ti RG 80 2- 1- 00 SI 24 IA ve E 48 20 20 DE E [...] 50 KE ti OC 10 SI 77 IA ve HL 34 20 20 DE E OR 70 10 10 JR OT 1 PH HI AR [place] MA LL ID CY IA E M 12 OF F .5 CY MG NT HI CP AN A LE 00 08 08 2 30 30 EA 18 MC Ac VO 37 -1 -[address] 75 KE ti TH 81 SI 58 IA ve YR 80 20 20 DE E OX 30 10 10 JR IN 1 PH E [place] 50 MA LL CY IA MC M G OF F TA BL CY ET NT HI AN A 00 08 08 0 12 30 EA 18 MC Ac 59 -1 -[address] 71 KE ti 10 SI 12 IA ve 54 20 20 0 DE E 00 10 10 JR 1 PH AR [place] MA LL CY IA M OF F CY NT HI AN A CL 00 08 08 0 90 30 EA 18 Ac ON 09 -0 -[address] 64 KE ti AZ 30 SI 45 IA ve EP 83 20 20 DE E AM 20 10 10 JR 1 PH 0. [place] 5 MA LL MG CY IA M TA OF F BL ET CY NT HI AN A NE 00 08 08 3 60 30 EA 18 MC Ac XI 18 -0 -[address] 64 KE ti UM 65 SI 88 IA ve 04 [address] 03 10 10 JR 1 PH 40 [place] MA LL MG CY IA M CA OF F PS UL CY E NT HI AN A SI 16 08 08 3 30 30 EA 18 MC Ac MV 71 -0 -[address] 64 KE ti 40 SI 89 IA ve TA 68 20 20 DE E TI 40 10 10 JR N 3 PH 40 [place] MA LL MG CY IA M TA OF F BL ET CY NT HI AN A EX 00 05 07 5 30 30 EA 17 MC Ac FO 07 -2 -[address] 70 KE ti RG 80 SI 24 IA ve E 48 20 20 DE E 10 91 10 10 JR -1 5 PH 60 [place] MA LL MG CY IA M TA OF F BL ET CY NT HI AN A LE 00 04 07 3 30 30 EA 17 MC Ac VO 37 -0 -[address] 10 KE ti TH 81 7- 0- 00 SI 12 IA ve YR 80 20 20 DE E OX 30 10 10 JR IN 1 PH E [place] 50 MA LL CY IA MC M G OF F TA BL CY ET NT HI AN A HY 00 05 07 3 30 30 EA [address] 59 -0 -[address] 50 KE ti OC 10 7- 0- 00 SI 77 IA ve HL 34 20 20 DE E [...] AZ 30 8- 8- 00 SI 89 IA ve EP 83 20 20 DE E [...] UM 65 7- 3- 00 SI 12 IA ve 04 [address] 03 10 10 JR 1 PH 40 [place] MA LL MG CY IA M CA OF F PS UL CY E NT HI AN A SI 16 02 07 4 30 30 EA 16 Ac MV 72 -1 -[address] 35 KE ti 90 2- 3- 00 SI 46 IA ve TA 00 20 20 DE E TI 61 10 10 JR N 7 PH 40 AR [place] MA LL MG CY IA M TA OF F BL ET CY NT HI AN A EX 00 05 06 5 30 30 EA 17 MC Ac FO 07 -2 -[address] 70 KE ti RG 80 2- 7- 00 SI 24 IA ve E 48 20 20 DE E 10 91 10 10 JR -1 5 PH 60 AR [place] MA LL MG CY IA M TA OF F BL ET CY NT HI AN A 00 06 06 0 12 30 EA 17 MC Ac 59 -1 -[address] 97 KE ti 10 4- 4- 00 SI 41 IA ve 54 20 20 0 DE E 00 10 10 JR 1 PH AR [place] MA LL CY IA M OF F CY NT HI AN A LE 00 04 06 3 30 30 EA 17 Ac VO 37 -0 -[address] 10 KE ti TH 81 SI 12 IA ve YR 80 20 20 DE E OX 30 10 10 JR IN 1 PH E [place] 50 MA LL CY IA MC M G OF F TA BL CY ET NT HI AN A HY 00 05 06 3 30 [address] 59 -0 -[address] 50 KE ti OC 10 SI 77 IA ve HL 34 20 20 DE E [...] 87 KE ti AZ 30 SI 85 IA ve EP 83 20 20 DE E AM 20 10 10 JR 1 PH 0. [place] 5 MA LL MG CY IA M TA OF F BL ET CY NT HI AN A SI 65 02 05 3 30 30 EA 16 Ac MV 86 -1 -[address] 35 KE ti 20 SI 46 IA ve TA 05 20 20 DE E TI 33 10 10 JR N 0 PH 40 [place] MA LL MG CY IA M TA OF F BL ET CY NT HI AN A NE 00 03 05 3 30 30 EA 16 Ac XI 18 -1 -[address] 82 KE ti UM 65 SI 12 IA ve 04 [address] 03 10 10 JR 1 PH 40 [place] MA LL MG CY IA M CA OF F PS UL CY E NT HI AN A EX 00 05 05 5 30 30 EA 17 Ac FO 07 -2 -[address] 70 KE ti RG 80 SI 24 IA ve E 48 20 20 DE E 10 91 10 10 JR -1 5 PH 60 [place] MA LL MG CY IA M TA OF F BL ET CY NT HI AN A 00 05 05 0 12 30 EA 17 Ac 59 -1 -[address] 61 KE ti 10 5- 5- 00 SI 05 IA ve 54 20 20 0 DE E 00 10 10 JR 1 PH AR [place] MA LL CY IA M OF F CY NT HI AN A LE 00 04 05 3 30 30 EA 17 Ac VO 37 -0 -[address] 10 KE ti TH 81 7- 7 00 SI 12 IA ve YR 80 20 20 DE E OX 30 10 10 JR IN 1 PH E [place] 50 MA LL CY IA MC M G OF F TA BL CY ET NT HI AN A HY 00 05 05 3 30 [address] 59 -0 -[address] 50 KE ti OC 10 7- 7- 00 SI 77 IA ve HL 34 20 20 DE E OR 70 10 10 JR OT 1 PH HI AR [place] MA LL ID CY IA E M 12 OF F .5 CY MG NT HI CP AN A CL 00 05 05 0 90 30 EA 17 [facility] ON 09 -0 -[address] 48 KE ti AZ 30 6 6 SI 98 IA ve EP 83 20 20 DE E AM 20 10 10 JR 1 PH 0. [place] 5 MA LL MG CY IA M TA OF F BL ET CY NT HI AN A SI 65 02 04 3 30 30 EA 16 Ac MV 86 -1 -[address] 35 KE ti 20 2 3- 00 SI 46 IA ve TA 05 20 20 DE E TI 33 10 10 JR N 0 PH 40 AR [place] MA LL MG CY IA M TA OF F BL ET CY NT HI AN A NE 00 03 04 3 30 30 EA 16 Ac XI 18 -1 -[address] 82 KE ti UM 65 7- 3- 00 SI 12 IA ve 04 [address] 03 10 10 JR 1 PH 40 [place] MA LL MG CY IA M CA OF F PS UL CY E NT HI AN A 00 04 04 0 12 30 EA 17 Ac 59 -1 -[address] 20 KE ti 10 5- 5- 00 SI 16 IA ve 54 20 20 0 DE E 00 10 10 JR 1 PH AR [place] MA LL CY IA M OF F CY NT HI AN A CL 00 04 04 0 60 30 EA 17 Ac ON 09 -1 -[address] 20 KE ti AZ 30 5- 5- 00 SI 17 IA ve EP 83 20 20 DE E AM 20 10 10 JR 1 PH 0. [place] 5 MA LL MG CY IA M TA OF F BL ET CY NT HI AN A HY 00 01 04 3 30 30 EA [address] 59 -0 -[address] 81 KE ti OC 10 4- 7- 00 SI 52 IA ve HL 34 20 20 DE E OR 70 10 10 JR OT 1 PH HI AR [place] MA LL ID CY IA E M 12 OF F .5 CY MG NT HI CP AN A LE 00 04 04 3 30 30 EA 17 MC Ac VO 37 -0 -[address] 10 KE ti TH 81 7 7 SI 12 IA ve YR 80 20 20 DE E OX 30 10 10 JR IN 1 PH E [place] 50 MA LL CY IA MC M G OF F TA BL CY ET NT HI AN A SI 65 02 03 3 30 30 EA 16 MC Ac MV 86 -1 -[address] 35 KE ti 20 2 7 SI 46 IA ve TA 05 20 20 DE E TI 33 10 10 JR N 0 PH 40 AR [place] MA LL MG CY IA M TA OF F BL ET CY NT HI AN A CL 00 03 03 0 60 30 EA 16 MC Ac ON 09 1 -[address] 81 KE ti AZ 30 7 7 SI 84 IA ve EP 83 20 20 DE E AM 20 10 10 JR 1 PH 0. [place] 5 MA LL MG CY IA M TA OF F BL ET CY NT HI AN A NE 00 03 03 3 30 30 EA 16 MC Ac XI 18 -1 -[address] 82 KE ti UM 65 7 7 SI 12 IA ve 04 [address] 03 10 10 JR 1 PH 40 [place] MA LL MG CY IA M CA OF F PS UL CY E NT HI AN A 00 03 03 0 12 30 EA 16 MC Ac 59 -1 -[address] 81 KE ti 10 7- 7 00 SI 83 IA ve 54 20 20 0 DE E 00 10 10 JR 1 PH AR [place] MA LL CY IA M OF F CY NT HI AN A LE 00 12 03 3 30 30 EA 15 MC Ac VO 37 -0 -[address] 38 KE ti TH 81 2 8- 00 SI 79 IA ve YR 80 20 20 DE E OX 30 09 10 JR IN 1 PH E [place] 50 MA LL CY IA MC M G OF F TA BL CY ET NT HI AN A HY 00 01 03 3 30 30 EA [address] 59 -0 -[address] 81 KE ti OC 10 4- 8- 00 SI 52 IA ve HL 34 20 20 DE E OR 70 10 10 JR OT 1 PH HI AR [place] MA LL ID CY IA E M 12 OF F .5 CY MG NT HI CP AN A CL 00 02 00 60 30 EA 16 MC Ac ON 09 -1 -[address] 37 KE ti AZ 30 SI 94 IA ve EP 83 20 20 DE E AM 20 10 10 JR 1 PH 0. AR [place] 5 MA LL MG CY IA M TA OF F BL CY ET NT HI AN A 00 12 30 00 12 30 EA 16 MC Ac 59 -1 -[address] 37 KE ti 10 SI 95 IA ve 54 20 20 0 DE E 00 10 10 JR 1 PH AR [place] MA LL CY IA M OF F CY NT HI AN A SI 65 02 02 00 30 30 EA 16 MC Ac MV 86 -1 -[address] 35 KE ti 20 SI 46 IA ve TA 05 20 20 DE E TI 33 10 10 JR N 0 PH 40 AR [place] MA LL MG CY IA M TA OF F BL CY ET NT HI AN A NE 00 08 02 05 30 30 EA 14 MC Ac XI 18 -3 -[address] 06 KE ti UM 65 SI 00 IA ve 04 [address] 03 09 10 JR 1 PH 40 AR [place] MA LL MG CY IA M CA OF F PS CY UL NT E HI AN A LE 00 12 12 30 30 30 EA 15 MC Ac VO 37 -0 -[address] 38 KE ti TH 81 SI 79 IA ve YR 80 20 20 DE E OX 30 09 10 JR IN 1 PH E [place] 50 MA LL CY IA MC M G OF F TA CY BL NT ET HI AN A HY 00 02 30 30 EA [address] 59 -0 -[address] 81 KE ti OC 10 SI 52 IA ve HL 34 20 20 DE E OR 70 10 10 JR OT 1 PH HI AR [place] MA LL ID CY IA E M 12 OF F .5 CY NT MG HI AN CP A 00 11 28 00 12 30 EA 15 MC Ac 59 -1 -[address] 95 KE ti 10 SI 82 IA ve 54 20 20 0 DE E 00 10 10 JR 1 PH AR [place] MA LL CY IA M OF F CY NT HI AN A SI 65 09 01 03 30 30 EA 14 MC Ac MV 86 -3 -[address] 49 KE ti 20 0- 8- 00 SI 48 IA ve TA 05 20 20 DE E TI 33 09 10 JR N 0 PH 40 AR [place] MA LL MG CY IA M TA OF F BL CY ET NT HI AN A CL 00 01 01 00 60 30 EA 15 MC Ac ON 09 -1 -[address] 95 KE ti AZ 30 4- 8- 00 SI 83 IA ve EP 83 20 20 DE E AM 20 10 10 JR 1 PH 0. AR [place] 5 MA LL MG CY IA M TA OF F BL CY ET NT HI AN A HY 00 01 01 00 30 30 EA [address] 59 -0 -[address] 81 KE ti OC 10 4- 4 SI 52 IA ve HL 34 20 20 DE E [...] UM 65 1- 4- 00 SI 00 IA ve 04 [address] 03 09 10 JR 1 PH 40 AR [place] MA LL MG CY IA M CA OF F PS CY UL NT E HI AN A LE 00 12 01 01 30 30 EA 15 MC Ac VO 37 -0 -[address] 38 KE ti TH 81 2- 4- 00 SI 79 IA ve YR 80 20 20 DE E OX 30 09 10 JR IN 1 PH E AR [place] 50 MA LL CY IA MC M G OF F TA CY BL NT ET HI AN A CL 00 12 12 00 60 30 EA 15 MC Ac ON 09 -1 -[address] 56 KE ti [place] 30 4- 1- SI 09 IA ve EP 83 20 20 DE E AM 20 09 09 JR 1 PH 0. AR [place] 5 MA LL MG CY IA M TA OF F BL CY ET NT HI AN A 00 12 12 00 12 30 EA 15 MC Ac 59 -1 -[address] 56 KE ti 10 4- 1- 00 SI 08 IA ve 54 20 20 0 DE E 00 09 09 JR 1 PH AR [place] MA LL CY IA M OF F CY NT HI AN A SI 65 09 12 02 30 30 EA 14 MC Ac MV 86 -3 -[address] 49 KE ti 20 0- 7- 00 SI 48 IA ve TA 05 20 20 DE E TI 33 09 09 JR N 0 PH 40 AR [place] MA LL MG CY IA M TA OF F BL CY ET NT HI AN A LE 00 12 12 00 30 30 EA 15 MC Ac VO 37 -0 -[address] 38 KE ti TH 81 2- 7- 00 SI 79 IA ve YR 80 20 20 DE E OX 30 09 09 JR IN 1 PH E AR [place] 50 MA LL CY IA MC M G OF F TA CY BL NT ET HI AN A NE 00 08 12 03 30 30 EA 14 MC Ac XI 18 -3 -[address] 06 KE ti UM 65 1- 7- 00 SI 00 IA ve 04 [address] 09 09 JR 1 PH 40 AR [place] MA LL MG CY IA M CA OF F PS CY UL NT E HI AN A HY 00 07 12 04 30 30 EA [address] 59 -1 -[address] 47 KE ti OC 10 4 7 SI 77 IA ve HL 34 20 20 DE E [...] AZ 30 4 3- 00 SI 29 IA ve EP 83 20 20 DE E AM 20 09 09 JR 1 PH 0. AR [place] 5 MA LL MG CY IA M TA OF F BL CY ET NT HI AN A NE 00 08 11 02 30 30 EA 14 MC Ac XI 18 -3 -[address] 06 KE ti UM 65 9 00 SI 00 IA ve 04 [address] 03 09 09 JR 1 PH 40 AR [place] MA LL MG CY IA M CA OF F PS CY UL NT E HI AN A LE 00 07 11 03 30 30 EA 13 MC Ac VO 37 -2 -[address] 63 KE ti TH 81 7 9 SI 09 IA ve YR 80 20 20 DE E OX 30 09 09 JR IN 1 PH E AR [place] 50 MA LL CY IA MC M G OF F TA CY BL NT ET HI AN A SI 65 09 11 01 30 30 EA 14 MC Ac MV 86 -3 -[address] 49 KE ti 20 0 9- 00 SI 48 IA ve TA 05 20 20 DE E TI 33 09 09 JR N 0 PH 40 AR [place] MA LL MG CY IA M TA OF F BL CY ET NT HI AN A HY 00 07 11 03 30 30 EA [address] 59 -1 -[address] 47 KE ti OC 10 4- 5- 00 SI 77 IA ve HL 34 20 20 DE E OR 70 09 09 JR OT 1 PH HI AR [place] MA LL ID CY IA E M 12 OF F .5 CY NT MG HI AN CP A CL 00 10 10 00 60 30 EA 14 MC Ac ON -[address] 69 KE ti [place] 30 4- 2- 00 SI 57 IA ve EP 83 20 20 DE E AM 20 09 09 JR 1 PH 0. [place] 5 MA LL MG CY IA M TA OF F BL CY ET NT HI AN A 00 10 10 00 12 30 EA 14 MC Ac 59 -1 -[address] 69 KE ti 10 4- 2- 00 SI 56 IA ve 54 20 20 0 DE E 00 09 09 JR 1 PH AR [place] MA LL CY IA M OF F CY NT HI AN A NE 00 08 10 01 30 30 EA 14 MC Ac XI 18 -3 -[address] 06 KE ti UM 65 1- 2- 00 SI 00 IA ve 04 [address] 03 09 JR 1 PH 40 AR [place] MA LL MG CY IA M CA OF F PS CY UL NT E HI AN A SI 65 09 10 00 30 30 EA 14 MC Ac MV 86 -3 -[address] 49 KE ti 20 0- 8- 00 SI 48 IA ve TA 05 20 20 DE E TI 33 09 09 JR N 0 PH 40 AR [place] MA LL MG CY IA M TA OF F BL CY ET NT HI AN A LE 00 07 10 02 30 30 EA 13 MC Ac VO 37 -2 -[address] 63 KE ti TH 81 7- 8- 00 SI 09 IA ve YR 80 20 20 DE E OX 30 09 JR IN 1 PH E AR [place] 50 MA LL CY IA MC M G OF F TA CY BL NT ET HI AN A CL 00 09 09 00 60 30 EA 14 MC Ac ON 09 - -[address] 23 KE ti [place] 30 4- 4- 00 SI 85 IA ve EP 83 20 20 DE E AM 20 09 09 JR 1 PH 0. AR [place] 5 MA LL MG CY IA M TA OF F BL CY ET NT HI AN A HY 00 07 09 02 30 30 EA [address] 59 -1 -[address] 47 KE ti OC 10 4- 4- 00 SI 77 IA ve HL 34 20 20 DE E OR 70 09 09 JR OT 1 PH HI AR [place] MA LL ID CY IA E M 12 OF F .5 CY NT MG HI AN CP A 00 09 09 00 12 30 EA 14 MC Ac 59 -1 -[address] 23 KE ti 10 4- 4- 00 SI 84 IA ve 54 20 20 0 DE E 00 09 09 JR 1 PH AR [place] MA LL CY IA M OF F CY NT HI AN A LE 00 09 01 30 30 EA 13 MC Ac VO 37 -2 -[address] 63 KE ti TH 81 7- 0- 00 SI 09 IA ve YR 80 20 20 DE E OX 30 09 JR IN 1 PH E [place] 50 MA LL CY IA MC M G OF F TA CY BL NT ET HI AN A NE 00 08 09 00 30 30 EA 14 MC Ac XI 18 -3 -[address] 06 KE ti UM 65 1- 0- 00 SI 00 IA ve 04 [address] 03 09 09 JR 1 PH 40 AR [place] MA LL MG CY IA M CA OF F PS CY UL NT E HI AN A HY 00 08 01 30 30 EA [address] 59 -1 -[address] 47 KE ti OC 10 4 7- 00 SI 77 IA ve HL 34 20 20 DE E [...] [place] 30 4 7- 00 SI 73 IA ve EP 83 20 20 DE E AM 20 09 09 JR 1 PH 0. AR [place] 5 MA LL MG CY IA M TA OF F BL CY ET NT HI AN A SI 65 05 08 03 30 30 EA 12 MC Ac MV 86 -0 -[address] 56 KE ti 20 1- 7- 00 SI 59 IA ve TA 05 20 20 DE E TI 33 09 09 JR N 0 PH 40 AR [place] MA LL MG CY IA M TA OF F BL CY ET NT HI AN A 00 08 08 00 12 30 EA 13 MC Ac 59 -1 -[address] 84 KE ti 10 4- 7- 00 SI 74 IA ve 54 20 20 0 DE E 00 09 09 JR 1 PH AR [place] MA LL CY IA M OF F CY NT HI AN A LE 00 07 08 00 30 30 EA 13 MC Ac VO 37 -2 -[address] 63 KE ti TH 81 7- 3- 00 SI 09 IA ve YR 80 20 20 DE E OX 30 09 09 JR IN 1 PH E [place] 50 MA LL CY IA MC M G OF F TA CY BL NT ET HI AN A NE 00 04 08 03 30 30 EA 12 MC Ac XI 18 -1 -[address] 35 KE ti UM 65 5- 3- 00 SI 57 IA ve 04 [address] 03 09 JR 1 PH 40 AR [place] MA LL MG CY IA M CA OF F PS CY UL NT E HI AN A 00 07 07 00 12 30 EA 13 MC Ac 59 -1 -[address] 50 KE ti 10 5- 0- 00 SI 62 IA ve 54 20 20 0 DE E 00 09 09 JR 1 PH AR [place] MA LL CY IA M OF F CY NT HI AN A SI 65 05 07 02 30 30 EA 12 MC Ac MV 86 -0 -[address] 56 KE ti 20 1- 0- 00 SI 59 IA ve TA 05 20 20 DE E TI 33 09 09 JR N 0 PH 40 AR [place] MA LL MG CY IA M TA OF F BL CY ET NT HI AN A HY 00 07 07 00 30 30 EA [address] 59 -1 -[address] 47 KE ti OC 10 4- 0- 00 SI 77 IA ve HL 34 20 20 DE E [...] AZ 30 5- 0- 00 SI 71 IA ve EP 83 20 20 DE E AM 20 09 09 JR 1 PH 0. AR [place] 5 MA LL MG CY IA M TA OF F BL CY ET NT HI AN A NE 00 04 07 02 30 30 EA 12 MC Ac XI 18 -1 -[address] 35 KE ti UM 65 5- 6- 00 SI 57 IA ve 04 [address] 03 09 09 JR 1 PH 40 AR [place] MA LL MG CY IA M CA OF F PS CY UL NT E HI AN A HY 00 05 07 01 30 30 EA [address] 59 -1 -[address] 72 KE ti OC 10 2- 2- 00 SI 08 IA ve HL 34 20 20 DE E OR 70 09 09 JR OT 1 PH HI AR [place] MA LL ID CY IA E M 12 OF F .5 CY NT MG HI AN CP A 00 06 07 00 12 30 EA 13 MC Ac 59 -1 -[address] 16 KE ti 10 6- 2- 00 SI 06 IA ve 54 20 20 0 DE E 00 09 09 JR 1 PH AR [place] MA LL CY IA M OF F CY NT HI AN A CL 00 05 07 01 60 30 EA 12 MC Ac ON 09 -1 -[address] 75 KE ti [place] 30 5- 2- 00 SI 71 IA ve EP 83 20 20 DE E AM 20 09 09 JR 1 PH 0. [place] 5 MA LL MG CY IA M TA OF F BL CY ET NT HI AN A ME 16 06 07 00 90 30 EA 13 MC Ac TO 71 -1 -[address] 13 KE ti CL 40 3- 2- 00 SI 20 IA ve OP 06 20 20 DE E RA 20 09 09 JR IA 6 PH DE AR WI MA LL [...] ti 20 1- 8- 00 SI 59 IA ve TA 05 20 20 DE E TI 33 09 09 JR N 0 PH 40 AR [place] MA LL MG CY IA M TA OF F BL CY ET NT HI AN A 00 05 06 00 12 30 EA 12 MC Ac 59 -1 -[address] 77 KE ti 10 8- 4- 00 SI 89 IA ve 54 20 20 0 DE E [...] UM 65 5- 4- 00 SI 57 IA ve 04 [address] 03 09 09 JR 1 PH 40 AR [place] MA LL MG CY IA M CA OF F PS CY UL NT E HI AN A ME 60 05 05 00 30 30 EA 12 MC Ac LO 50 -1 -[address] 75 KE ti XI 52 5- 1- 00 SI 72 IA ve CA 55 20 20 DE E M 40 09 09 JR 15 1 PH AR [place] MG MA LL CY IA TA M BL OF F ET CY NT HI AN A HY 00 05 05 00 30 30 EA [address] 59 -1 -[address] 72 KE ti OC 10 2- 1- 00 SI 08 IA ve HL 34 20 20 DE E OR 70 09 09 JR OT 1 PH HI AR [place] MA LL ID CY IA E M 12 OF F .5 CY NT MG HI AN CP A CL 00 05 05 00 60 30 EA 12 MC Ac ON -[address] 75 KE ti [place] 30 5- 1- 00 SI 71 IA ve EP 83 20 20 DE E AM 20 09 09 JR 1 PH 0. [place] 5 MA LL MG CY IA M TA OF F BL CY ET NT HI AN A SI 65 05 05 00 30 30 EA 12 MC Ac MV 86 -0 -[address] 56 KE ti 20 1- 7- 00 SI 59 IA ve TA 05 20 20 DE E [...] UM 65 5- 3- 00 SI 57 IA ve 04 [address] 03 09 JR 1 PH 40 AR [place] MA LL MG CY IA M CA OF F PS CY UL NT E HI AN A ME 49 03 04 01 30 30 EA 11 NG Ac TO 88 -1 -[address] 90 RV ti HI 40 6- 3- 00 SI 94 EY [...] UM 65 0- 6- 00 SI 05 IA ve 04 [address] 03 09 09 JR 1 PH 40 AR [place] MA LL MG CY IA M CA OF F PS CY UL NT E HI AN A SI 65 10 03 05 30 30 EA 99 MC Ac MV 86 -0 -[address] 75 KE ti 20 6- 6- 00 SI 41 IA ve TA 05 20 20 DE E [...] -1 -[address] 90 RV ti HI 40 6- 6- 00 SI 94 EY [...] ti 20 6- 6 00 SI 41 IA ve TA 05 20 20 DE E TI 33 08 09 JR N 0 PH 40 AR [place] MA LL MG CY IA M TA OF F BL CY ET NT HI AN A 00 02 02 00 12 30 EA 11 MC Ac 59 -1 -[address] 48 KE ti 10 6 6 00 SI 90 IA ve 54 20 20 0 DE E 00 09 09 JR 1 PH AR [place] MA LL CY IA M OF F CY NT HI AN A ME 49 11 02 03 30 30 EA 10 MC Ac TO 88 -0 -[address] 14 KE ti HI 40 5- 6- 00 SI 65 IA ve OL 40 20 20 DE E OL 50 08 09 JR 1 PH GALLAGHER AR [place] CC MA LL CY IA ER M OF F 50 CY NT MG HI AN TA A B LE 00 01 02 01 30 30 EA 11 MC Ac VO 37 -1 -[address] 07 KE ti TH 81 3- 6- 00 SI 93 IA ve YR 80 20 20 DE E OX 30 09 09 JR IN 1 PH E [place] 50 MA LL CY IA MC M G OF F TA CY BL NT ET HI AN A CL 00 02 02 00 60 30 EA 11 MC Ac ON 09 -1 -[address] 48 KE ti [place] 30 6- 6- 00 SI 89 IA ve EP 83 20 20 DE E AM 20 09 09 JR 1 PH 0. AR [place] 5 MA LL MG CY IA M TA OF F BL CY ET NT HI AN A NE 00 08 02 05 30 30 EA 99 MC Ac XI 18 -2 -[address] 22 KE ti UM 65 6- 2- 00 SI 45 IA ve 04 [address] 03 08 09 JR 1 PH 40 AR [place] MA LL MG CY IA M CA OF F PS CY UL NT E HI AN A LE 00 01 01 00 30 30 EA 11 MC Ac VO 37 -1 -[address] 07 KE ti TH 81 3- 0- 00 SI 93 IA ve YR 80 20 20 DE E [...] ti 20 6- 5- 00 SI 41 IA ve TA 05 20 20 DE E TI 33 08 09 JR N 0 PH 40 AR [place] MA LL MG CY IA M TA OF F BL CY ET NT HI AN A ME 49 11 01 02 30 30 EA 10 MC Ac TO 88 -0 -[address] 14 KE ti HI 40 5- 5- 00 SI 65 IA ve OL 40 20 20 DE E OL 50 08 09 JR 1 PH GALLAGHER AR [place] CC MA LL CY IA ER M OF F 50 CY NT MG HI AN TA A B NE 00 08 01 04 30 30 EA 99 MC Ac XI 18 -2 -[address] 22 KE ti UM 65 6- 5- 00 SI 45 IA ve 04 [address] [...] TH 81 0- 1- 00 SI 64 IA ve YR 80 20 20 DE E OX 30 08 09 JR IN 1 PH E [place] 50 MA LL CY IA MC M G OF F TA CY BL NT ET HI AN A ME 49 11 12 01 30 30 EA 10 MC Ac TO 88 -0 -[address] 14 KE ti HI 40 5- 8- 00 SI 65 IA ve OL 40 20 20 DE E OL 50 08 08 JR 1 PH GALLAGHER AR [place] CC MA LL CY IA ER M OF F 50 CY NT MG HI AN TA A B 60 12 12 00 12 3 EA 10 MC Ac 25 -0 -[address] 54 KE ti 80 4- 8- 00 SI 81 IA ve 23 20 20 0 DE E [...] UM 65 6- 8- 00 SI 45 IA ve 04 [address] 03 08 08 JR 1 PH 40 AR [place] MA LL MG CY IA M CA OF F PS CY UL NT E HI AN A CL 00 10 12 01 60 30 EA 99 MC Ac ON 09 -[address] 81 KE ti [place] 30 0- 8- 00 SI 89 IA ve EP 83 20 20 DE E AM 20 08 08 JR 1 PH 0. [place] 5 MA LL MG CY IA M TA OF F BL CY ET NT HI AN A SI 65 10 12 02 30 30 EA 99 MC Ac MV 86 -0 -[address] 75 KE ti 20 6- 8- 00 SI 41 IA ve TA 05 20 20 DE E TI 33 08 08 JR N 0 PH 40 AR [place] MA LL MG CY IA M TA OF F BL CY ET NT HI AN A CL 00 10 11 00 60 30 EA 99 MC Ac ON 09 -[address] 81 KE ti AZ 30 0- 0- 00 SI 89 IA ve EP 83 20 20 DE E AM 20 08 08 JR 1 PH 0. [place] 5 MA LL MG CY IA M TA OF F BL CY ET NT HI AN A SI 65 10 11 01 30 30 EA 99 MC Ac MV 86 -0 -[address] 75 KE ti 20 6- 0- 00 SI 41 IA ve TA 05 20 20 DE E TI 33 08 08 JR N 0 PH 40 AR [place] MA LL MG CY IA M TA OF F BL CY ET NT HI AN A ME 49 11 11 00 30 30 EA 10 MC Ac TO 88 -0 -[address] 14 KE ti HI 40 5- 0- 00 SI 65 IA ve OL 40 20 20 DE E OL 50 08 08 JR 1 PH GALLAGHER AR [place] CC MA LL CY IA ER M OF F 50 CY NT MG HI AN TA A B LE 00 11 11 00 30 30 EA 10 MC Ac VO 37 -1 -[address] 21 KE ti TH 81 0- 0- 00 SI 64 IA ve YR 80 20 20 DE E OX 30 08 08 JR IN 1 PH E [place] 50 MA LL CY IA MC M G OF F TA CY BL NT ET HI AN A NE 00 08 11 02 30 30 EA 99 MC Ac XI 18 -2 -[address] 22 KE ti UM 65 6- 7- 00 SI 45 IA ve 04 [address] [...] -0 -[address] 58 t ti HI 40 1- 3- 00 SI 13 Av [...] -0 -[address] 58 t ti HI 40 1- 1- 00 SI 13 Av [...] 01 30 30 EA 98 No Ac HI 18 -0 -[address] 58 t ti OL 61 1- 4- 00 SI 13 Av ve 09 20 20 DE ai XL 00 08 08 la 5 PH bl 50 AR e MA MG CY TA OF BL CY ET NT HI AN A HI 37 08 08 00 30 30 EA [...] BL CY ET NT HI AN A HI 37 04 07 03 30 30 EA [...] 00 30 30 EA 98 No Ac HI 18 -0 -[address] 58 t [...] 9- 7- 00 SI 06 Av ve HI 50 20 20 DE ai AM 98 [...] BL CY ET NT HI AN A HI 37 04 06 02 30 30 EA [...] 01 30 30 EA 97 No Ac HI 18 -2 -[address] 75 t [...] BL CY ET NT HI AN A HI 37 04 05 01 30 30 EA [...] 00 30 30 EA 97 No Ac HI 18 -2 -[address] 75 t [...] 7- 0- 00 SI 65 Av ve HI 34 20 20 DE ai AM 30 08 08 la 1 PH bl HB AR e R MA 20 CY MG OF CY TA NT BL HI ET AN A HI 37 04 04 00 30 30 EA [...] -2 -[address] 38 t ti HI 40 7- 0- 00 SI 67 Av [...] 7- 5- 00 SI 25 Av ve HI 02 20 20 DE ai ED 20 [...] Procedure DOS Code Location Performer Comment CREATININ 86946 LINETTE Iniguez BLOOD 7 [facility] [place] [address] LINETTE SUE UREA 7 [facility] NITROGEN INC INC QUANTITAT RUPA COLLECTIO 41446 LINETTE SUE N VENOUS 7 [facility] BLOOD INC INC VENIPUNCT URE DRUG TEST 61203 LAVINIA KATE PRSMV 7 NORMA TOWNSEND MD,PSC CHEMISTRY ANALYZERS DRUG TEST 33259 LINETTE SUE PRSMV 7 [facility] QUAL DIR INC INC OPTICAL OBS PER DAY DRUG 63093 LINETTE USE SCREENING 7 [facility] INC INC BENZODIAZ EPINES 1-12 ECG 05528 LNIETTE SUE ROUTINE 7 [facility] ECG INC INC W/LEAST 12 LDS TRCG ONLY W/O I&R PRQ 49462 [facility] TRLUML 7 PHYSICIAN CORONARY S GROUP STENT W/ANGIO ONE ART/BRNCH CATH PLMT 98799 [facility] L HRT & 7 PHYSICIAN ARTS S GROUP W/NJX & ANGIO IMG S&I MYOCARDIA 86521 LINETTEKING SUE L SPECT 7 [facility] MULTIPLE INC INC STUDIES CV STRS 93485 LINETTE SUE TST 7 [facility] XERS&/OR INC INC RX CONT ECG TRCG ONLY TECHNETIU A9502 LINETTE SUE M TC-99M 7 [facility] TETROFOSM INC INC IN DX PER STUDY DOSE ECHO 27400 LINETTE LINETTE TTHRC R-T 7 [facility] 2D INC INC W/WOM-MOD E COMPL SPEC&COLR D ECG 75987 LINETTE LINETTE ROUTINE 7 [facility] ECG INC INC W/LEAST 12 LDS TRCG ONLY W/O I&R BLOOD 93255 LAVINIA KATE COUNT 7 DUKE TOWNSEND MD,PSC AUTO&AUTO DIFRNTL WBC COMPREHEN 36892 LAVINIA KATE SIVE 7 BOBO TOWNSEND MD,PSC PANEL DRUG TEST 86204 LAVINIA KATE PRSMV 7 NORMA TOWNSEND MD,[place] [address] LAVINIA KATE PHOSPHORU 7 Myron TOWNSEND MD,PSC INORGANIC BILIRUBIN 44948 LAVINIA KATE DIRECT 7 MD KRISTIAN,[place] [address] LAVINIA KATE GLUTAMYLT 7 BEKAH TOWNSEND MD,PSC GAMMA HEPATOBIL 70493 [facility]ETTE SUE SYST 7 [facility] IMAG INC INC INC GB W/PHARMA INTERVENJ TECHNETIU A9537 LINETTE SUE M TC-99M 7 [facility] MEBROFENI INC INC N DX UP TO 15 MCI ECG 17533 LINETTE SUE ROUTINE 7 [facility] ECG INC INC W/LEAST 12 LDS TRCG ONLY W/O I&R FINAL G9638 [facility] REPORTS 7 MEDICAL W/O DOC IMAGING 1/[place] [address] [facility] ABDOMEN & 7 MEDICAL PELVIS IMAGING W/O ASS CONTRAST MATERIAL BLOOD 29448 LINETTE SUE COUNT 7 [facility] COMPLETE INC INC AUTO&AUTO DIFRNTL WBC ECG 92226 LINETTE SUE ROUTINE 7 [facility] ECG INC INC W/LEAST 12 LDS TRCG ONLY W/O I&R THER 20252 LINETTE SUE PROPH/DX 7 [facility] NJX IV INC INC PUSH SINGLE/1S T SBST/[place] [address] LINETTE SUE LIPASE 7 [facility] INC INC CREATINE 88206 LINETTE SUE KINASE MB 7 [facility] [place] [address] LINETTE SUE AMYLASE 7 [facility] INC INC CREATINE 56342 LINETTE SUE KINASE 7 [facility] [place] [address] LINETTE SUE TROPONIN 7 [facility] QUANTITAT INC INC RUPA COMPREHEN 42182 LINETTE SUE SIVE 7 [facility] METABOLIC INC INC PANEL FINAL G9551 LEONEL JUARESMIRLANDEERIN REPR ABD 7 MEDICAL IMAG STS IMAGING W/O ASS INCIDNT FND LES NTD: RADIOLOGI 04913 LINETTE LINETTE C EXAM 7 [facility] CHEST 2 INC INC VIEWS FRONTAL&L ATERAL ECG 21869 LINETTE MCCLAIN ROUTINE 7 [facility] W/LEAST P 12 LDS I&R ONLY CT LUMBAR 56601 LEONEL LICEA SPINE 7 MEDICAL W/O IMAGING CONTRAST ASS MATERIAL FINAL G9551 LEONEL LICEA REPR ABD 7 MEDICAL IMAG STS IMAGING W/O ASS INCIDNT FND LES NTD: COMPREHEN 73936 LINETTE SUE SIVE 7 [facility] METABOLIC INC INC PANEL URNLS DIP 22438 LINETTE SUE 7 [facility] STICK/TAB INC INC LET REAGENT AUTO MICROSCOP Y BLOOD 79337 LINETTE SUE COUNT 7 [facility] COMPLETE INC INC AUTO&[place] [address] LEONEL LICEA ABDOMEN & 7 MEDICAL PELVIS IMAGING W/O ASS CONTRAST MATERIAL FINAL G9638 LEONEL LICEA REPORTS 7 MEDICAL W/O DOC IMAGING 1/MORE ASS DOSE REDUCTION TECH RADEX 35303 DARCIEANA NATHAN SPINE 7 LUMBOSACR CHIROPRAC AL 2/3 TIC CENTE VIEWS RADEX 69760 CYNTHIANA NATHAN SPINE 7 CERVICAL CHIROPRAC 2 OR 3 TIC CENTE VIEWS APPL 84281 EMERSON NATHAN MODALITY 7 1/> AREAS CHIROPRAC ELEC TIC CENTE STIMJ UNATTENDE D CHIROPRAC 03081 EMERSON NATHAN TIC 7 MANIPULAT CHIROPRAC RUPA TX TIC CENTE SPINAL 3-4 REGIONS DRUG TEST 73168 LINETTE SUE PRSMV 7 [facility] QUAL DIR INC INC OPTICAL OBS PER DAY DRUG TEST 99546 LAVINIA KATE PRSMV 7 NORMA OTWNSEND MD,[facility]H [facility] CHEMISTRY ANALYZERS RADEX 62685 LINETTE SUE ABDOMEN 7 [facility] COMPL INC INC W/DCBTS&/ ERC VIEWS IAADIADOO 84209 LINETTE SUE 7 [facility] INFLUENZA INC INC RADIOLOGI 42184 LEONEL ZULLY C EXAM 7 MEDICAL CHEST 2 IMAGING VIEWS ASS FRONTAL&L ATERAL DRUG TEST 05330 LINETTE SUE PRSMV 7 [facility] QUAL DIR INC INC OPTICAL OBS PER DAY DRUG TEST G0480 LINETTE SUE DEFINITV [address] [facility] [address] [facility] [address] ID INC INC METH P DAY 1-7 DRUG CL BASIC 89256 LINETTE LINETTE METABOLIC 7 [facility] PANEL INC INC CALCIUM TOTAL HEMOGLOBI 52265 LINETTE SUE N 7 [facility] GLYCOSYLA INC INC SONG A1C COLLECTIO 74647 LINETTE SUE N VENOUS 7 [facility] BLOOD INC INC VENIPUNCT URE HEPATIC 68860 LINETTE LINETTE FUNCTION 7 [facility] PANEL INC INC LIPID 21077 LINETTE SUE PANEL 7 [facility] INC INC ECG 63789 LINETTE LINETTE ROUTINE 7 [facility] ECG INC INC W/LEAST 12 LDS TRCG ONLY W/O I&R DRUG TEST G0480 LINETTE SUE DEFINITV [address] [facility] [address] [facility] [address] ID INC INC METH P DAY 1-7 DRUG CL DRUG TEST 36348 LINETTE SUE PRSMV 7 [facility] QUAL DIR INC INC OPTICAL OBS PER DAY COLLECTIO 88094 LINETTE SUE N VENOUS 7 [facility] [place]LO[place] [address] LINETTE SUE TROPONIN 7 [facility] QUANTITAT INC INC RUPA COMPREHEN 95722 LINETTE SUE SIVE 7 [facility] METABOLIC INC INC PANEL NATRIURET 94407 LINETTE SUE IC 7 [facility] [place] [address] LINETTE SUE LIPASE 7 [facility] INC INC FIBRIN 73304 LINETTE SUE DGRADJ 7 [facility] PRODUCTS INC INC D-DIMER QUAL/SEMI TODD CREATINE 45580 LINETTE SUE KINASE 7 [facility] [place] [address] LINETTE SUE AMYLASE 7 [facility] INC INC CREATINE 33408 LINETTE SUE KINASE MB 7 [facility] FRACTION INC INC ONLY FINAL RPT G[address]/MRI 7 MEDICAL CHEST/NCK IMAGING /U/S NO ASS THR NOD<1.[address] THORAX 72524 LEONEL DELAROSA 7 MEDICAL W/CONTRAS IMAGING T ASS MATERIAL ECG 00792 LINETTE SUE ROUTINE 7 [facility] ECG INC INC W/LEAST 12 LDS TRCG ONLY W/O I&[place] [address] LINETTE SUE ANGIOGRAP 7 [facility] HY CHEST INC INC W/CONTRAS T/NONCONT RAST FINAL G9638 LEONEL DELAROSA REPORTS 7 MEDICAL W/O DOC IMAGING 1/MORE ASS DOSE REDUCTION TECH BLOOD 10465 LINETTE SUE COUNT 7 [facility] COMPLETE INC INC AUTO&[place] [address] LEONEL DELAROSA ABDOMEN 7 MEDICAL W/O IMAGING CONTRAST ASS MATERIAL URNLS DIP 39967 LINETTE LINETTE 7 [facility] STICK/TAB INC [place] [address] LINETTE SUE ANGIOGRAP 7 [facility] HY INC INC ABDOMEN W/CONTRAS T/NONCONT RAST RADIOLOGI 29630 [facility] ZULLY C EXAM 7 MEDICAL CHEST 2 IMAGING VIEWS ASS FRONTAL&L ATERAL FINAL G9551 LEONEL DELAROSA REPR ABD 7 MEDICAL IMAG STS IMAGING W/O ASS INCIDNT FND LES NTD: ECG 28650 LINETTE SUE ROUTINE 7 [facility] W/LEAST P P 12 LDS I&R ONLY HEPATITIS 49372 LINETTE SUE C 6 [facility] ANTIBODY INC INC HEPATITIS 01979 LINETTE SUE A 6 [facility] ANTIBODY INC INC HAAB BLOOD 88589 LINETTE SUE COUNT 6 [facility] COMPLETE INC INC AUTO&AUTO DIFRNTL WBC COLLECTIO 38806 LINETTE SUE N VENOUS 6 [facility] [place] [address] LINETTE SUE AMYLASE 6 [place] [address] LINETTE SUE LIPASE 6 [place] [address] LINETTE SUE THYROID 6 [facility] STIMULATI [place] [address] LINETTE SUE THYROXINE 6 [facility] TOTAL INC INC HEMOGLOBI 74844 LINETTE SUE N 6 [facility] GLYCOSYLA INC INC SONG A1C COMPREHEN 88532 LINETTE SUE SIVE 6 [facility] [place] [address] LINETTE SUE HEPATITIS 6 [facility] B INC INC SURFACE ANTIGEN DRUG TST G0477 LINETTE SUE PRESUMP;C 6 [facility] PBL BEING INC INC READ DC OPT OBV ONLY HEPATITIS 41486 LINETTE SUE B CORE 6 [facility] ANTIBODY INC INC HBCAB TOTAL HEPATITIS 35395 LINETTE Agarwal SURF 6 [facility] ANTIBODY INC INC HBSAB DRUG TST G0477 LINETTE SUE PRESUMP;C 6 [facility] PBL BEING INC INC READ DC OPT OBV ONLY DRUG TEST G0479 LAVINIA TOWNSEND 6 TOWNSEND, PRESUMP;I ,PSC NSTRUMENT ED CHEMISTRY ANLYZER ECG 40863 LINETTE GREENEDONNIE ROUTINE 6 [facility] W/LEAST P 12 LDS I&R ONLY COLLECTIO 26789 LINETTE SUE N VENOUS 6 [facility] BLOOD [place] [address] LINETTE SUE TROPONIN 6 [facility] QUANTITAT INC INC RUPA RADIOLOGI 89922 [facility] S[facility] C 6 [facility] EXAMINATI INC INC ON [place]ST [place] FRONTAL COMPREHEN 23146 [facility] SIVE 6 [facility] METABOLIC INC INC PANEL NATRIURET 39481 [facility] IC 6 [facility] [place] [address] [facility] S[facility] LIPASE 6 [facility] INC INC FIBRIN 11531 LIN[facility] SUE DGRADJ 6 [facility] PRODUCTS INC INC D-DIMER QU[place] [address] [facility] AMYLASE 6 [facility] INC INC CREATINE 72147 LIN[facility] SUE KINASE MB 6 [facility] FRACTION INC INC ONLY CREATINE 81251 [facility]UE KINASE 6 [facility] TOTAL INC INC BLOOD 48842 [facility] S[facility] COUNT 6 [facility] COMPLETE INC INC AUTO&AUTO DIFRNTL WBC CT THORAX 18231 [place] 6 [facility] W/[place] [address] [facility] ANGIOGRAP 6 [facility] HY CHEST INC INC W/CONTRAS T/NONCONT RAST ECG 31335 [facility] ROUTINE 6 [facility] ECG INC INC W/LEAST 12 LDS TRCG ONLY W/O I&R DRUG TST G0477 LINETTE LIN[facility] PRESUMP;C 6 [facility] PBL [place] [address] [facility] SUE HEAD/BRAI 6 [facility] N W/O INC INC CONTRAST MATERIAL THERAPEUT 52515 [facility] SUE IC 6 [facility] PROPHYLAC INC INC TIC/DX INJECTION SUBQ/[place] [address] [facility] S[facility] CERVICAL 6 [facility] SPINE W/O INC INC CONTRAST MATERIAL RADEX 45889 [facility] SUE SHOULDER 6 [facility] COMPLETE INC INC MINIMUM 2 [place] [address] [facility], SETTEMBRE SURG 6 [facility] PATHOLOGY GROSS&CHARLEY ROSCOPIC EXAM COLSC FLX 29152 [facility] SUE W/RMVL 6 [facility] OF TUMOR INC INC POLYP LESION SNARE TQ ANES 41269 [facility] LOWER 6 ANESTH INTESTINE OF THE BLUE ENDOSCOPY DISTAL DUODENUM GLUC BLD 58711 LIN[facility] VERMAON GLUC MNTR 6 [facility] DEV INC INC CLEARED FDA SPEC HOME USE DRUG TST G0477 LIN[facility] SUE PRESUMP;C 6 [facility] PBL BEING INC INC READ DC OPT OBV ONLY DRUG 17973 [facility] SCREEN 6 [facility] LIST A INC INC SINGLE DRUG CLASS METHOD COL-CHR/M 83010 [facility] S NONDRUG 6 [facility]TE INC INC CARLINE QUAL/TODD EA SPEC DRUG 53495 [facility] SUE SCREENING 6 [facility] INC INC BENZODIAZ EPINES 1-12 LIPID 08430 [facility] SUE PANEL 6 [facility] INC INC COLLECTIO 34593 [facility] SUE N VENOUS 6 [facility] BLOOD INC INC VENIPUNCT URE BLOOD 27630 [facility] SUE COUNT 6 [facility] COMPLETE INC INC AUTO&AUTO DIFRNTL WBC PROSTATE G0103 [facility] CANCER 6 [facility] SCREENING [facility] INC ; [place] [address] [facility] SUE THYROID 6 [facility] STIMULATI INC INC NG HORMONE TSH HEMOGLOBI 52645 [facility] SUE N 6 [facility] GLYCOSYLA [place] [address] [facility] S[facility] THYROXINE 6 [facility] TOTAL INC INC COMPREHEN 01450 [facility] S[facility] SIVE 6 [facility] METABOLIC INC INC PANEL THERAPEUT 10338 [facility] IC 6 PHYSICIAN [place] PROPHYLAC S GROUP TIC/DX INJECTION SUBQ/IM INJECTION J1885 [facility] 6 [facility]YS[facility] [place] KETOROLAC S GROUP TROMETHAM INE PER 15 MG INJECTION J1100 [facility] CHAGO 6 PHYSICIAN CHARLEY DEXAMETHO S GROUP SONE SODIUM PHOSPHATE 1 MG INJECTION J1100 [facility] CHAGO 6 PHYSICIAN CHARLEY DEXAMETHO S GROUP SONE SODIUM PHOSPHATE 1 MG THERAPEUT 36177 [facility] CHAGO IC 6 PHYSICIAN CHARLEY PROPHYLAC S GROUP TIC/DX INJECTION SUBQ/IM THERAPEUT 78846 [facility] FRYMAN IC 6 PHYSICIAN EUG PROPHYLAC S GROUP TIC/DX INJECTION SUBQ/IM INJECTION J0696 [facility] FRYMAN 6 PHYSICIAN EUG CEFTRIAXO S GROUP NE SODIUM PER 250 MG INJECTION 47887 BOYD LE LB 6 MD JERMAINE, SINGLE/ML [...] OL PROHANCE MULTIPACK PER ML MRI BRAIN 08249 [facility]ETTE VERMAON BRAIN 6 [facility] STEM W/O INC INC W/CONTRAS T MATERIAL COLLECTIO 90227 LINETTE SUE N VENOUS 6 [facility] [place] [address] LINETTE SUE UREA 6 [facility] NITROGEN INC INC QUANTITAT RUPA CREATININ 03906 LINETTE VERMAON E BLOOD 6 [facility] INC INC MRI BRAIN 25760 LINETTE VERMAON BRAIN 6 [facility] STEM W/O INC INC CONTRAST MATERIAL DUPLEX 71905 LINETTE SUE SCAN 6 [facility] EXTRACRAN INC INC IAL ART COMPL [facility] G0463 LINETTE SUE OUTPATIEN 6 [facility] T CLIN INC INC VISIT ASSESS & [place] [address] LINETTE BECKETT CO HEAD/BRAI 6 [facility] HEALTH N W/O INC DEPARTMEN CONTRAST T MATERIAL BASIC 94923 LINETTE SUE METABOLIC 6 [facility] PANEL INC INC CALCIUM TOTAL THER 45674 LINETTE SUE PROPH/DX 6 [facility] NJX IV INC INC PUSH SINGLE/1S T SBST/DRUG INJECTION J2405 [facility]TE SUE 6 [facility] ONDANSETR INC INC ON HCL PER 1 MG BLOOD 00376 LINETTE SUE COUNT 6 [facility] COMPLETE INC INC AUTO&AUTO DIFRNTL WBC THERAPEUT 38148 LINETTE SUE IC 6 [facility] INJECTION INC INC IV PUSH EACH NEW DRUG FLUOR 41281 BOYD LE LB NEEDLE/CA 6 MD JERMAINE, TH PSC SPINE/PAR ASPINAL DX/THER ADDON INJECTION J1030 [facility] SUE 6 [facility] METHYLPRE INC INC DNISOLONE ACETATE 40 MG NJX 26535 BOYD LE LB DX/THER 6 MD JERMAINE, SBST PSC EPIDURAL/ SUBRACH CERV/THOR ACIC LOCM Q9966 LINETTE LINETTE 200-299 6 [facility] MG/ML INC INC IODINE CONCENTRA TION PER ML HEPATOBIL 94280 LINETTE SUE SYST 6 [facility] IMAG INC INC INC GB W/PHARMA INTERVENJ TECHNETIU A9537 LINETTE SUE M TC-99M 6 [facility] MEBROFENI INC INC N DX UP TO 15 MCI INJECTION J2805 LINETTE SUE 6 [facility] SINCALIDE INC INC 5 [place] [address] [place] DELAROS[place] ALL ABDOMINAL 5 MEDICAL REAL IMAGING [place] W/[place] [address] LINETTE SUE STREPTOCO 5 [facility] CCUS INC INC GROUP A CUL BACT 46877 LINETTE SUE XCPT 5 [facility] URINE INC INC BLOOD/STO OL AEROBIC ISOL GLUC BLD 98198 LINETTE SUE GLUC MNTR 5 [facility] DEV INC [place] [address] LINETTE SUE RETROPERI 5 [facility] TONEAL INC [place] W/[place] [address] [place] ZULLY RETROPERI 5 MEDICAL BUBBA TONEAL IMAGING REAL TIME ASS W/IMAGE LIMITED APPL 26304 LINETTE SUE MODALITY 5 [facility] 1/> AREAS INC INC ULTRASOUN D EA 15 MIN APPLICATI 92642 LINETTE SUE ON 5 [facility] MODALITY INC INC 1/> AREAS HOT/COLD PACKS APPL 91327 LINETTE SUE MODALITY 5 [facility] 1/> AREAS INC INC 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 L E-STIM G0283 LINETTE SUE 1/> AREAS 5 [facility] OTH THAN INC INC WND CARE PART TX PLAN PHYSICAL 43109 LINETTE SUE THERAPY 5 [facility] EVALUATIO INC INC N OPHTH 02567 [facility] 5 XM&EVAL COMPRHNSV ESTAB PT 1/> INJECTION J1030 [facility]ETTE SUE 5 [facility] METHYLPRE INC INC DNISOLONE ACETATE 40 MG INJECTION 28578 BOYD ASHER 5 MD JERMAINE, SINGLE/ML PSC T TRIGGER POINT 1/2 MUSCLES INJECTION 90898 [facility]ETTE SUE 5 [facility] SINGLE/ML INC INC T TRIGGER POINT 3/> MUSCLES PSYCHIATR 16220 COMPREHEN MINEER IC 5 D INC EDELMIRA DIAGNOSTI C EVALUATIO N INJECTION 84364 FREDY Fabian MD SINGLE/ML T TRIGGER POINT 1/2 MUSCLES INJECTION J1030 LINETTEKING SUE 5 [facility] METHYLPRE INC INC DNISOLONE ACETATE 40 MG INJECTION [facility]ETTE SUE 5 [facility] SINGLE/ML INC INC T TRIGGER POINT 3/> [place] [address] [place] BEINEKE HEAD/BRAI 5 MEDICAL DAREN N W/O IMAGING CONTRAST ASS MATERIAL RADEX 27001 [place] BEINE SPINE 5 MEDICAL DAREN THORACIC IMAGING [address] [place] [address] [facility] CERVICAL 5 MEDICAL DAREN SPINE W/O IMAGING CONTRAST ASS MATERIAL ROGELIO 52572 LINETTE LEIVA POST-VOID 5 [facility] RESIDUAL P URINE&/BL [facility] G0463 LINETTE SUE OUTPATIEN 5 [facility] T CLIN INC INC VISIT ASSESS & [place] ECG 84880 LINETTE SUE ROUTINE 5 [facility] ECG INC INC W/LEAST 12 LDS TRCG ONLY W/O I&R ECG 44535 CARDIOVAS CHAYO ROUTINE 5 CULAR MAT ECG CONSULTAN W/LEAST TS O 12 LDS I&R ONLY ECHO 41578 LINETTE SUE TTHRC R-T 5 [facility] 2D INC INC W/WOM-MOD E COMPL SPEC&COLR D MYOCARDIA 80590 LINETTE SUE L SPECT 5 [facility] MULTIPLE INC INC STUDIES CV STRS 12048 LINETTE SUE TST 5 [facility] XERS&/OR INC INC RX CONT ECG TRCG ONLY CV STRS 20046 [facility] FALLUJI TST 5 PHYSICIAN VENITA XERS&/OR S GROUP RX CONT ECG W/O I&R TECHNETIU A9500 LINETTE Barrientos TC-99M 5 [facility] SESTAMIBI INC INC DX PER STUDY DOSE ECG 45609 LINETTE SUE ROUTINE 5 [facility] ECG INC INC W/LEAST 12 LDS TRCG ONLY W/O I&R ECG 29601 CARDIOVAS CHAYO ROUTINE 5 CULAR MAT ECG CONSULTAN W/LEAST TS O 12 LDS I&R ONLY LIPID 17029 LINETTE SUE PANEL 5 [facility] INC INC BASIC 25503 LINETTE SUE METABOLIC 5 [facility] [place]EL [place] [address] LINETTE SUE THYROID 5 [facility] STIMULATI [place] [address] LINETTE SUE THYROXINE 5 [facility] TOTAL INC INC CREATINE 49356 LINETTE SUE KINASE 5 [facility] TOTAL INC INC CREATINE 81806 LINETTE SUE KINASE MB 5 [facility] FRACTION INC INC ONLY COMPREHEN 28767 LINETTE SUE SIVE 5 [facility] METABOLIC INC INC PANEL CRITICAL 04388 LINETTE SUE CARE 5 [facility] ED P P PATIENT INIT 30-[place] [address] LEONEL BEINEKE HEAD/BRAI 5 MEDICAL DAREN N W/O IMAGING CONTRAST ASS MATERIAL AMB A0427 DAVID HERNANDEZ SERVICE 5 [facility]ANCE AMB[facility]ANCE ALS SERVICE SERVICE EMERGENCY TRANSPORT LEVEL 1 [place] [address] LINETTE SUE TROPONIN 5 [facility] QUANTITAT INC INC RUPA GROUND A0425 DAVID HERNANDEZ MILEAGE 5 AMBULANCE AMBULANCE PER SERVICE SERVICE STATUTE MILE ECG 82219 LINETTE SUE ROUTINE 5 [facility] ECG INC INC W/LEAST 12 LDS TRCG ONLY W/O I&R RADIOLOGI 37778 [facility] BEINE[facility] C 5 MEDICAL DAREN EXAMINATI IMAGING ON CHEST ASS SINGLE VIEW FRONTAL BLOOD 61694 LINETTE SUE COUNT 5 [facility] COMPLETE INC INC AUTO&AUTO DIFRNTL WBC ECG 94125 LINETTE SUE ROUTINE 5 [facility] W/LEAST P P 12 LDS I&[place] [address] [facility] AND[facility]A ANGIOGRAP 4 MEDICAL BUBBA HY IMAGING ABDOMEN ASS W/CONTRAS T/NONCONT RAST LOCM Q9967 LINETTE SUE 300-399 4 [facility] MG/ML INC INC IODINE CONCENTRA TION PER ML COLLECTIO 73987 LINETTE SUE N VENOUS 4 [facility] [place] [address] LINETTE SUE HEAD/BRAI 4 [facility] N W/O INC INC CONTRAST MATERIAL CREATININ 51625 LINETTE SUE E BLOOD 4 [place] [address] LINETTE SUE UREA 4 [facility] NITROGEN INC INC QUANTITAT RUPA THERAPEUT 48156 [facility] CHAGO IC 4 PHYSICIAN CHARLEY PROPHYLAC S GROUP TIC/DX INJECTION SUBQ/IM INJECTION J0696 [facility] CHAGO 4 PHYSICIAN CHARLEY CEFTRIAXO S GROUP NE SODIUM PER 250 MG INJECTION J1040 [facility] 4 PHYSICIAN PHYSICIAN METHYLPRE S GROUP S GROUP DNISOLONE ACETATE 80 MG RADIOLOGI 18507 [facility] ANDREA C 4 MEDICAL BUBBA EXAMINATI IMAGING ON CHEST ASS SINGLE VIEW FRONTAL FOR DIAB A5512 [facility] ONLY MX 4 DNSITY INSRT DIR FORMD PRFAB EA DIAB ONLY A5500 [facility] FIT CSTM 4 PREP&SPL SHOE MX DNSITY INSRT THERAPEUT 04375 LINETTE SUE IC 4 [facility] PROPHYLAC INC INC TIC/DX INJECTION SUBQ/IM CT LUMBAR 90752 ZULLY ZULLY SPINE 4 BUBBA BUBBA W/O CONTRAST MATERIAL THER 01395 LINETTE SUE PROPH/DX 4 [facility] NJX IV INC INC PUSH SINGLE/1S T SBST/[place] [address] ZULLY ZULLY ABDOMEN & 4 BUBBA BUBBA PELVIS W/O CONTRST 1/> BODY RE BLOOD 26216 LINETTE SUE COUNT 4 [facility] COMPLETE INC INC AUTO&[place] [address] LINETTE SUE ABDOMEN & 4 [facility] PELVIS INC INC W/O CONTRAST MATERIAL THER 55726 LINETTE SUE PROPH/DX 4 [facility] NJX IV INC INC PUSH SINGLE/1S T SBST/DRUG ECG 52815 LINETTE SUE ROUTINE 4 [facility] ECG INC INC W/LEAST 12 LDS TRCG ONLY W/O I&R COMPREHEN 67351 LINETTE SUE SIVE 4 [facility] METABOLIC INC INC PANEL THROMBOPL 75333 LINETTE SUE ASTIN 4 [facility] TIME INC INC PARTIAL PLASMA/[place] [address] LINETTE SUE TROPONIN 4 [facility] QUANTITAT INC INC RUPA PROTHROMB 39367 LINETTE SUE IN TIME 4 [facility] INC INC FIBRIN 44933 LINETTE SUE DGRADJ 4 [facility] PRODUCTS INC INC D-DIMER QUAL/SEMI TODD CREATINE 84376 LINETTE SUE KINASE 4 [facility] TOTAL INC INC CREATINE 26130 LINETTE SUE KINASE MB 4 [facility] FRACTION INC INC ONLY RADIOLOGI 63162 LINETTE SUE C EXAM 4 [facility] CHEST 2 INC INC VIEWS FRONTAL&L ATERAL ECG 18506 WARE WARE ROUTINE 4 BRO BRO ECG W/LEAST 12 LDS I&R ONLY DRUG SCR G0434 VITA HAM VITA HAM NOT 4 CHROMATOG RAPHIC; ANY NUMBER PT ENC COMPREHEN 25740 LINETTE SUE SIVE 3 [facility] [place] [address] LINETTE SUE THYROID 3 [facility] STIMULATI INC INC NG HORMONE TSH BLOOD 36666 LINETTE SUE COUNT 3 [facility] COMPLETE INC INC AUTO&AUTO DIFRNTL WBC IM ADM 10592 MCKEMIE MCKEMIE PRQ ID 3 JR AREN YOUNGER SUBQ/IM NJXS 1 VACCINE INJECTION J3301 MCKEMIE MCKEMIE 3 JR AREN YOUNGER TRIAMCINO LONE ACETONIDE NOS 10 MG ADMINISTR G0008 MCKEMIE MCKEMIE ATION OF 3 JR AREN YOUNGER INFLUENZA VIRUS VACCINE IM ADM 62430 MCKEMIE MCKEMIE PRQ ID 3 JR AREN YOUNGER SUBQ/IM NJXS EA VACCINE IIV3 98392 MCKEMIE MCKEMIE VACCINE 3 JR AREN YOUNGER SPLIT VIRUS 0.5 ML DOSAGE IM USE THERAPEUT 30376 LINETTE SUE IC 3 [facility] PROPHYLAC INC INC TIC/DX INJECTION SUBQ/IM LIPID 57058 LINETTE SUE PANEL 3 [facility] [place] [address] LINETTE SUE THYROID 3 [facility] STIMULATI INC INC NG HORMONE TSH COMPREHEN 15705 LINETTE SUE SIVE 3 [facility] METABOLIC INC INC PANEL MRI BRAIN 76081 LINETTE SUE BRAIN 3 [facility] STEM W/O INC INC W/CONTRAS T MATERIAL CREATININ 82074 LINETTE SUE E BLOOD 3 [place] [address] LINETTE SUE UREA 3 [facility] NITROGEN INC INC QUANTITAT RUPA 3D 28550 LINETTE SUE RENDERING 3 [facility] W/INTERP INC INC & POSTPROCE SS SUPERVISI ON INJECTION A9576 LINETTE SUE 3 [facility] GADOTERID INC INC OL PROHANCE MULTIPACK [place] 95513 LINETTE SUE SPINAL 3 [facility] CANAL INC INC CERVICAL W/O CONTRAST MATRL APPLICATI 42143 LINETTEKING SUE ON 3 [facility] MODALITY INC INC 1/> AREAS HOT/COLD PACKS APPL 06803 LINETTEKING SUE MODALITY 3 [facility] 1/> AREAS INC INC 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 L APPL 76646 LINETTE SUE MODALITY 3 [facility] 1/> AREAS INC INC ELEC STIMJ UNATTENDE D APPL 52315 LINETTE SUE MODALITY 3 [facility] 1/> AREAS INC INC ELEC STIMJ UNATTENDE D APPL 09851 LINETTE SUE MODALITY 3 [facility] 1/> AREAS INC INC 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 L APPL 12109 LINETTE LINETTE MODALITY 3 [facility] 1/> AREAS INC INC ULTRASOUN D EA 15 MIN APPLICATI 59632 LINETTE LINETTE ON 3 [facility] MODALITY INC INC 1/> AREAS HOT/COLD PACKS PHYSICAL 09849 LINETTE SUE THERAPY 3 [facility] EVALUATIO INC INC N INJECTION J3301 LINETTE LINETTE 3 [facility] TRIAMCINO INC INC LONE ACETONIDE NOS 10 MG THERAPEUT 14596 LINETTE SUE IC 3 [facility] PROPHYLAC INC INC TIC/DX INJECTION SUBQ/IM BLOOD 87635 LINETTE SUE OCCULT 3 [facility] PEROXIDAS INC INC E ACTV QUAL FECES 1-3 SPEC CUL BACT 71167 LINETTE SUE STOOL 3 [facility] AEROBIC INC INC ISOL SALMONELL A&[place] [address] LINETTE SUE CLOSTRIDI 3 [facility] UM INC INC DIFFICILE TOXIN SMR PRIM 54411 LINETTE SUE SRC 3 [facility] GRAM/GIEM INC INC SA STAIN BCT FUNGI/ELBA L OVA&DERRICK 29641 LINETTE SUE ITES 3 [facility] DIRECT INC INC SMEARS CONCENTRA TION & ID RADIOLOGI 31746 ZULLY ANDREA C EXAM 3 BUBBA BUBBA CHEST 2 VIEWS FRONTAL&L ATERAL RADEX 56438 ZULLY ZULLY SHOULDER 3 BUBBA BUBBA COMPLETE MINIMUM 2 VIEWS ECG 61262 JOHNY JOHNY ROUTINE 3 CAMILLA CAMILLA ECG W/LEAST 12 LDS I&[place] [address] LINETTEKING SUE TROPONIN 3 [facility] QUANTITAT INC INC RUPA CREATINE 41546 LINETTE VERMAON KINASE 3 [facility] TOTAL INC INC CREATINE 23210 LINETTE SUE KINASE MB 3 [facility] FRACTION INC INC ONLY ECG 80297 LINETTE SUE ROUTINE 3 [facility] ECG INC INC W/LEAST 12 LDS TRCG ONLY W/O I&R URNLS DIP 44109 NATHALY CRMIE 3 JR AREN JR AREN STICK/TAB LET RGNT NON-AUTO W/[place] [address] LINETTE SUE TROPONIN 3 [facility] QUANTITAT INC INC RUPA COMPREHEN 99459 LINETTE SUE SIVE 3 [facility] METABOLIC INC INC PANEL CREATINE 29621 LINETTE SUE KINASE MB 3 [facility] [place] [address] LINETTE SUE AMYLASE 3 [facility] INC INC CREATINE 08350 LINETTE VERMAON KINASE 3 [facility] [place] [address] LINETTE SUE LIPASE 3 [facility] INC INC ECG 50004 LINETTE SUE ROUTINE 3 [facility] ECG INC INC W/LEAST 12 LDS TRCG ONLY W/O I&R INJECTION J2405 LINETTE VERMAON 3 [facility] ONDANSETR INC INC ON HCL PER 1 MG URNLS DIP 05968 LINETTE LINETTE 3 [facility] STICK/TAB INC INC LET REAGENT AUTO MICROSCOP Y 3D 72177 LINETTE USE RENDERING 3 [facility] INC INC W/INTERP& POSTPROC DIFF WORK STATION BLOOD 77914 LINETTE SUE COUNT 3 [facility] COMPLETE INC INC AUTO&[place] [address] ZULLY ZULLY ABDOMEN & 3 BUBBA BUBBA PELVIS W/O CONTRAST MATERIAL ECG 39423 CHAGO ANDERS ROUTINE 3 CHARLEY CHARLEY ECG W/LEAST 12 LDS [place] [address] LINETTE SUE INFUSION 3 [facility] THERAPY/P INC INC ROPHYLAXI S /DX 1ST TO 1 HR THERAPEUT 47751 LINETTE SUE IC 3 [facility] INJECTION INC INC IV PUSH EACH NEW DRUG BLOOD 14874 LINETTE SUE COUNT 3 [facility] COMPLETE INC INC AUTO&AUTO DIFRNTL WBC PROSTATE G0103 LINETTE SUE CANCER 3 [facility] SCREENING INC INC ; PSA TEST LIPID 78421 LINETTE SUE PANEL 3 [facility] INC INC COMPREHEN 93315 LINETTE LINETTE SIVE 3 [facility] METABOLIC INC INC PANEL ECG 51429 LINETTE MCKEMIE ROUTINE 3 [facility] ECG HOSPITAL W/LEAST P 12 LDS I&R ONLY ECG 40945 CHAGO ANDERS ROUTINE 3 CHARLEY CHARLEY ECG W/LEAST 12 LDS I&R ONLY IAADI 44047 LINETTE VERMAON INFFLUENZ 3 [facility] A A VIRUS INC INC IAADI 52549 LINETTE SUE INFLUENZA 3 [facility] B VIRUS INC INC COMPREHEN 12978 LINETTE LINETTE SIVE 3 [facility] [address] LINETTE SUE TROPONIN 3 [facility] [address] LINETTE SUE LIPASE 3 [facility] INC INC BLOOD 44056 LINETTE SUE OCCULT 3 [facility] PEROXIDAS INC INC E ACTV QUAL FECES 1-3 SPEC CREATINE 23075 LINETTE SUE KINASE 3 [facility] [place] [address] LINETTE SUE AMYLASE 3 [facility] INC INC CREATINE 04024 LINETTE SUE KINASE MB 3 [facility] FRACTION INC INC ONLY URNLS DIP 06740 LINETTE SUE 3 [facility] STICK/TAB INC INC LET REAGENT AUTO MICROSCOP Y ECG 57410 LINETTE SUE ROUTINE 3 [facility] ECG INC INC W/LEAST 12 LDS TRCG ONLY W/O I&R 3D 42797 LINETTE SUE RENDERING 3 [facility] INC INC W/INTERP& POSTPROC DIFF WORK STATION BLOOD 32763 LINETTE SUE COUNT 3 [facility] COMPLETE INC INC AUTO&[place] [address] ZULLY ZULLY ABDOMEN & 3 BUBBA BUBBA PELVIS W/O CONTRAST MATERIAL RADIOLOGI 40302 LINETTE SUE C 3 [facility] EXAMINATI INC INC ON CHEST SINGLE VIEW FRONTAL UROGRAPHY 81731 LEONEL ZULLY IV W/WO 2 MEDICAL BUBBA KUB W/WO IMAGING TOMOGRAPH ASS Y URETHROCY 46060 LINETTE SUE STOGRAPHY 2 [facility] INC INC RETROGRAD E RS&I ANES 58993 [facility] TRANSURET 2 ANESTH LOLY HRAL OF THE W/URETHRO BLUE CYSTOSCOP Y NOS CYSTOURET 77774 CALI LEIVA HROSCOPY 2 ART ART CYSTO 81618 LINETTEKING SUE BLADDER 2 [facility] W/URETERA [place] [address] LINETTE SUE UREA 2 [facility] NITROGEN INC INC QUANTITAT RUPA CREATININ 67963 LINETTE SUE E BLOOD 2 [facility] INC INC URNLS DIP 25281 LEIVA LEIVA 2 ART ART STICK/TAB LET RGNT NON-AUTO W/O MICRSCP LOCM Q9967 LINETTE VERMAON 300-399 2 [facility] MG/ML INC [place] [address] LEONEL ZULLY ABDOMEN & 2 MEDICAL BUBBA PELVIS IMAGING W/O ASS CONTRST 1/> BODY RE PROSTATE G0103 LINETTE LINETTE CANCER 2 [facility] SCREENING INC INC ; PSA TEST BASIC 48556 LINETTE SUE METABOLIC 2 [facility] PANEL [place] [address] LINETTE SUE TESTOSTER 2 [facility] ONE TOTAL INC INC URNLS DIP 79529 CALI LEIVA 2 ART ART STICK/TAB LET RG[place] [address] LINETTE SUE RETROPERI 2 [facility] TONEAL INC INC REAL TIME W/IMAGE COMPLETE URNLS DIP 22106 JAMA YUN 2 NAN NAN STICK/TAB LET RGNT NON-AUTO W/O MICRSCP COMPREHEN 86605 LINETTE SUE SIVE 2 [facility] METABOLIC INC INC PANEL HEMOGLOBI 45464 LINETTE SUE N 2 [facility] GLYCOSYLA INC INC SONG A1C LIPID 95988 LINETTE SUE PANEL 2 [facility] INC INC URNLS DIP 77069 JAMA YUN 2 NAN NAN STICK/TAB LET RGNT NON-AUTO W/O MICRSCP OPHTHALMO 10347 NICK ROMERO SCPY 2 JAM JAM EXTENDED RETINAL DRAWING I&R 1ST DETERMINA 04191 NICK ROMERO TION 2 JAM JAM REFRACTIV E STATE MYOCARDIA 58698 LAUREN AGUILAR L SPECT 2 VENITA VENITA MULTIPLE STUDIES MYOCARDIA 51036 LINETTE SUE L SPECT 2 [facility] MULTIPLE INC INC STUDIES CV STRS 06216 [facility] TST 2 [facility] XERS&/OR INC INC RX CONT ECG TRCG ONLY CV STRS [address] [facility] 2 XERS&/OR RX CONT ECG W/O I&R CV STRS 17680 LINETTE SUE TST 2 [facility]&/OR [facility] RX CONT P P ECG I&R ONLY TECHNETIU A9502 LINETTE Barrientos TC-99M 2 [facility] TETROFOSM INC INC IN DX PER STUDY DOSE OBSERVATI 48154 JOHNY MCCLAIN ON CARE 2 [facility] [place] [address] [facility] TROPONIN 2 [facility] QUANTITAT INC INC RUPA CREATINE 60730 [facility]UE KINASE 2 [facility] TOTAL INC INC CREATINE 73711 LINETTE SUE KINASE MB 2 [facility] FRACTION INC INC ONLY HOSPITAL G0378 [facility] S[facility] OBSERVATI 2 [facility] ON INC INC SERVICE PER [facility]OUR [facility] G0378 [facility] S[facility] OBSERVATI 2 [facility] ON INC INC SERVICE PER HOUR 13100 [facility] S[facility] RENDERING 2 [facility] W/INTERP INC INC & POSTPROCE SS SUPERVISI ON RADIOLOGI 30706 [facility] C 2 [facility] EXAMINATI INC INC ON CHEST [place] FRONTAL BLOOD 95761 [facility] COUNT 2 [facility] COMPLETE INC INC AUTO&AUTO DIFRNTL WBC INITIAL 04850 MCKEMIE MCKEMIE OBSERVATI 2 JR AREN JR AREN ON CARE/DAY 30 MINUTES ECG 48079 [facility] ROUTINE 2 [facility] ECG INC INC W/LEAST 12 LDS TRCG ONLY W/O I&R CREATINE 72821 LINETTE SUE KINASE MB 2 [facility] FRACTION INC INC ONLY CREATINE 11579 LIN[facility] SUE KINASE 2 [facility] [place] [address] LIN[facility] SUE LIPASE 2 [place] [address] [facility] S[facility] TROPONIN 2 [facility] QUANTITAT INC INC RUPA BASIC 33969 [facility] METABOLIC 2 [facility] PANEL INC INC CALCIUM TOTAL COMPREHEN 53645 [facility] S[facility] SIVE 2 [facility] [place] [address] LEONEL MILLERUTCHER HEAD/BRAI 2 MEDICAL BUBBA N W/O IMAGING CONTRAST ASS MATERIAL CT ORBIT 74720 LEONEL ZULLY SELLA/POS 2 MEDICAL BUBBA T IMAGING FOSSA/EAR ASS W/O CONTRAST MATRL ECG 63077 BETH [place]AMPOS ROUTINE 2 III AREN III AREN ECG W/LEAST 12 LDS I&R ONLY RHYTHM 87684 [facility]ET[facility] SUE ECG 1-3 2 [facility] LEADS INC INC TRACING ONLY W/O I&R PRESSURIZ 44713 [facility] ED/NONPRE 2 [facility] SSURIZED INC INC INHALATIO N TREATMENT [facility] [place] [address] EDGE DONNIE EDGE DONNIE MICROGRAP 2 HIC H/N/H/F/G 1ST STAGE 5 BLOCKS ANES 79740 [place] MAJORS G INTEG 2 ANESTHESI MUSC & A ASSOC L NRV HEAD NECK&POST ERIOR TRUNK ADJT TIS 86479 ODALYS MORROW LB TRNSFR/RE 2 ARRGMT E/N/E/L DFCT 10 SQ CM/< SUTR WND 49999 ODALYS MORROW LB EYELID/MA 2 RGIN/TARS US/CONJUN C FULL THICK BLOOD 09726 [facility] SUE COUNT 2 [facility] COMPLETE INC INC AUTO&AUTO DIFRNTL WBC LIPID 07276 LIN[facility]TE SUE PANEL 2 [facility] INC INC HEMOGLOBI 39494 LINETTE SEU N 2 [facility] GLYCOSYLA INC INC SONG A1C COMPREHEN 26321 [facility] S[facility] SIVE 2 [facility] [place] [address] LINETTE SUE HEAD/BRAI 2 [facility] N W/O INC INC CONTRAST MATERIAL BASIC 29603 LINETTE SUE METABOLIC 2 [facility] PANEL INC INC CALCIUM TOTAL CREATINE 75019 LIN[facility] SUE KINASE 2 [facility] TOTAL INC INC CREATINE 76993 LINETTE SUE KINASE MB 2 [facility] FRACTION INC INC ONLY URNLS DIP 05915 [facility]TE SUE 2 [facility] STICK/TAB INC INC LET REAGENT AUTO MICROSCOP Y ECG 70642 [facility] SUE ROUTINE 2 [facility] ECG INC INC W/LEAST 12 LDS TRCG ONLY W/O I&R BLOOD 00872 [facility] SUE COUNT 2 [facility] COMPLETE INC INC AUTO&AUTO DIFRNTL WBC 3D 91225 LIN[facility]TE S[facility] RENDERING 2 [facility] W/INTERP INC INC & [place] [address] [facility] S[facility] TROPONIN 2 [facility] QUANTITAT INC INC RUPA RHYTHM 80520 LINETTE SUE ECG 1-3 2 [facility] LEADS INC INC TRACING ONLY W/O I&R ECG 11825 [place] ROUTINE 2 III AREN III AREN ECG W/LEAST 12 LDS I&[place] [address] ZULLY ZULLY MAXILLOFA 2 BUBBA BUBBA CIAL W/O CONTRAST MATERIAL RADIOLOGI 90593 ZULLY ZULLY C EXAM 2 BUBBA BUBBA CHEST 2 VIEWS FRONTAL&L ATERAL RHYTHM 46648 [facility]TE SUE ECG 1-3 1 [facility] LEADS INC INC TRACING ONLY W/O I&R PRESSURIZ 55507 [facility] ED/NONPRE 1 [facility] [place]ED [place] INC INHALATIO N TREATMENT ECG 96813 BARAHONA MICHELLE BARAHONA MICHELLE ROUTINE 1 ECG W/LEAST 12 LDS I&R ONLY RADIOLOGI 72837 [place] ZULLY C 1 MEDICAL BUBBA EXAMINATI IMAGING ON [place] [address] LINETTE SUE TROPONIN 1 [facility] QUANTITAT INC INC RUPA BLOOD 10219 LINETTE SUE COUNT 1 [facility] COMPLETE INC INC AUTO&AUTO DIFRNTL WBC ECG 75042 LINETTE SUE ROUTINE 1 [facility] ECG INC INC W/LEAST 12 LDS TRCG ONLY W/O I&R CREATINE 68904 LINETTE SUE KINASE MB 1 [facility] FRACTION INC INC ONLY CREATINE 74450 LINETTE SUE KINASE 1 [facility] TOTAL INC INC COMPREHEN 68329 LINETTE SUE SIVE 1 [facility] METABOLIC INC INC PANEL EXC 69632 ODALYS LB ODALYS LB LESION 1 EYELID W/O CLSR/W/SI MPLE DIR CLOSURE INCISIONA 68649 ODALYS BL ODALYS LB L BIOPSY 1 EYELID SKIN & LID MARGIN THERAPEUT 12013 LICKING LICKING IC 1 [facility] PROPHYLAC INTERNAL INTERNAL TIC/DX MED MED INJECTION SUBQ/IM XTRNL 59420 ODALYS MORROW LB OCULAR 1 PHOTOG W/I&R DOCMT MEDICAL PROGRE OPHTH 50100 ISHA MIDDLETON [facility] 1 VISION XM&EVAL COMPRHNSV ESTAB PT 1/> [place] [address] [place] ABDOMINAL 1 [facility] TIME PSC W/[place] [address] [place] RETROPERI 1 [facility] CLINIC REAL TIME PSC W/IMAGE LIMITED LIPID 08622 COMBINED COMBINED PANEL 1 PHYSICIAN PHYSICIAN S LA S LA GENERAL 60802 COMBINED COMBINED HEALTH 1 PHYSICIAN PHYSICIAN PANEL S LA S LA HEMOGLOBI 08346 COMBINED COMBINED N 1 PHYSICIAN PHYSICIAN GLYCOSYLA S LA S LA SONG A1C MRI BRAIN 82293 [facility] BRAIN 1 MEDICAL BUBBA STEM W/O IMAGING CONTRAST ASS MATERIAL 3D 31597 [place] ZULLY RENDERING 1 MEDICAL BUBBA W/INTERP IMAGING & ASS POSTPROCE SS SUPERVISI ON MRI 65358 [facility] SPINAL 1 MEDICAL BUBBA CANAL IMAGING CERVICAL ASS W/O CONTRAST MATRL RADIOLOGI 39916 [facility] C EXAM 1 MEDICAL BUBBA CHEST 2 IMAGING VIEWS ASS FRONTAL&L ATERAL ECG 14563 VOLODYMYR CAMPOS ROUTINE 1 EMERGENCY III AREN ECG SERVICES W/LEAST 12 LDS I&R ONLY 3D 22833 [place] ZULLY RENDERING 1 MEDICAL BUBBA W/INTERP IMAGING & ASS POSTPROCE SS SUPERVISI ON BLOOD 37719 [facility]ETTE SUE COUNT 1 [facility] COMPLETE INC INC AUTO&[place] [address] LINETTE SUE TROPONIN 1 [facility] QUANTITAT INC INC RUPA ECG 91004 LINETTE SUE ROUTINE 1 [facility] ECG INC INC W/LEAST 12 LDS TRCG ONLY W/O I&[place] [address] LEONEL ANDREA HEAD/BRAI 1 MEDICAL BUBBA N W/O IMAGING CONTRAST ASS MATERIAL BASIC 05704 LINETTE SUE METABOLIC 1 [facility] PANEL INC INC CALCIUM TOTAL CREATINE 46745 LINETTE SUE KINASE 1 [facility] TOTAL INC INC CREATINE 28906 LINETTE SUE KINASE MB 1 [facility] FRACTION INC INC ONLY BASIC 48411 LINETTE SUE METABOLIC 1 [facility] PANEL INC INC CALCIUM TOTAL LIPID 48074 LINETTE SUE PANEL 1 [facility] INC INC BLOOD 38442 LINETTE SUE COUNT 1 [facility] COMPLETE INC INC AUTO&AUTO DIFRNTL WBC ECHO 92343 LINETTE ANDERSEN TTHRC R-T [address] W/WOM-MOD P E COMPL SPEC&COLR D OTHER 4513 LINETTE SUE ENDOSCOPY 1 [facility] [place] [address] LINETTE SUE INFUSION 1 [facility] THERAPY INC INC PROPHYLAX IS/DX EA HOUR ESOPHAGOG 69634 LINETTE SUE ASTRODUOD 1 [facility] ENOSCOPY INC INC TRANSORAL DIAGNOSTI C SWALLOWIN 10694 LEONEL ANDREA G FUNCJ 1 MEDICAL BUBBA W/CINERAD IMAGING IOGRAPY/V ASS IDRADIOG URNLS DIP 11476 LINETTE SUE 1 [facility] STICK/TAB INC INC LET REAGENT AUTO MICROSCOP Y ALS A0398 DAVID HERNANDEZ ROUTINE 1 [facility]ANCE AMBULANCE DISPOSABL SERVICE SERVICE E SUPPLIES GROUND A0425 DAVID HERNANDEZ MILEAGE 1 AMBULANCE AMBULANCE PER SERVICE SERVICE STATUTE MILE ECG 23685 LINETTE SUE ROUTINE 1 [facility] ECG INC INC W/LEAST 12 LDS TRCG ONLY W/O I&R 3D 25426 LINETTE SUE RENDERING 1 [facility] INC INC W/INTERP& POSTPROC DIFF WORK STATION 3D 24939 LEONEL ZULLY RENDERING 1 MEDICAL BUBBA W/INTERP IMAGING & ASS POSTPROCE SS SUPERVISI ON BLOOD 89955 LINETTE SUE COUNT 1 [facility] COMPLETE INC INC AUTO&[place] [address] LINETTE SUE TROPONIN 1 [facility] QUANTITAT INC INC RUPA RADIOLOGI 67355 LEONEL ANDREA C 1 MEDICAL BUBBA EXAMINATI IMAGING [place] [address] LEONEL ANDREA ABDOMEN & 1 MEDICAL BUBBA PELVIS IMAGING W/O ASS CONTRAST MATERIAL CREATINE 61493 LINETTE SUE KINASE MB 1 [facility] FRACTION INC INC ONLY CREATINE 27110 LINETTE SUE KINASE 1 [facility] TOTAL INC INC BASIC 79172 LINETTE SUE METABOLIC 1 [facility] [address] LEONEL ANDREA HEAD/BRAI 1 MEDICAL BUBBA N W/O IMAGING CONTRAST ASS MATERIAL AMB A0427 DAVID HERNANDEZ SERVICE 1 AMBULANCE AMBULANCE ALS SERVICE SERVICE EMERGENCY TRANSPORT LEVEL 1 AMB A0422 DAVID HERNANDEZ OXYGEN&O2 1 AMBULANCE AMBULANCE SUPPLIES SERVICE SERV[place] [address] LINETTE SUE INFUSION 1 [facility] THERAPY/P INC INC ROPHYLAXI S /DX 1ST TO 1 HR ECG 65087 LINETTE ANDERSEN ROUTINE 1 [facility] W/LEAST P 12 LDS I&R ONLY COMPREHEN 05940 LINETTE SUE SIVE 1 [facility] [place] [address] LINETTE SUE THYROID 1 [facility] STIMULATI INC INC NG HORMONE TSH SEDIMENTA 05417 LINETTE SUE TION RATE 1 [facility] RBC INC INC NON-AUTOM ATED SYPHILIS 76797 LINETTE SUE TEST 1 [facility] NON-TREPO INC INC NEMAL ANTIBODY QUAL BLOOD 43378 LINETTE SUE COUNT 1 [facility] COMPLETE INC INC AUTO&AUTO DIFRNTL WBC CUL BACT 86804 LINETTE SUE AEROBIC 1 [facility] ADDL INC INC METHS DEFINITIV E EA ISOL CUL BACT 86279 LINETTE LINETTE XCPT 1 [facility] URINE INC INC BLOOD/STO OL AEROBIC ISOL SUSCEPTIB 55267 LINETTE SUE LTY STDY 1 [facility] ANTIMICRB INC INC IAL MICRO/[place] [address] LINETTE LINETTE HEAD/BRAI 0 [facility] N W/O INC INC CONTRAST MATERIAL 3D 16869 LINETTE LINETTE RENDERING 0 [facility] INC INC W/INTERP& POSTPROC DIFF WORK STATION INITIAL 98528 SAM FLORESY INPATIENT 0 JAROD OLIVERA CONSULT NEW/ESTAB PT 55 MIN LARYNGOSC 46057 SAM FLORESY OPY 0 JAROD OLIVERA FLEXIBLE DIAGNOSTI C AMB A0422 DAVID HERNANDEZ OXYGEN&O2 0 AMBULANCE AMBULANCE SUPPLIES SERVICE SERVICE LIFE SUSTAININ G SITUATION AMB A0427 DAVID HERNANDEZ SERVICE 0 AMBULANCE AMBULANCE ALS SERVICE SERVICE [place] [address] [place] ZULLY ANGIOGRAP 0 MEDICAL [facility] HY CHEST IMAGING W/CONTRAS ASS T/NONCONT RAST RADIOLOGI 68325 [place] ZULL[place] C 0 MEDICAL BUBBA EXAMINATI IMAGING ON CHEST ASS SINGLE VIEW FRONTAL MYOCARDIA 61965 [facility] FALLUJI L SPECT 0 PHYSICIAN VENITA MULTIPLE S GROUP STUDIES GROUND A0425 DAVID HERNANDEZ MILEAGE 0 AMBULANCE AMBULANCE PER SERVICE SERVICE STATUTE MILE 51674 [facility] 0 [facility] REAL TIME PSC W/IMAGE LIMITED BLOOD 21007 LINETTE SUE COUNT 0 [facility] COMPLETE INC INC AUTO&AUTO DIFRNTL [facility] G0378 LINETTE SUE OBSERVATI 0 [facility] ON INC INC SERVICE PER HOUR BASIC 42389 LINETTE SUE METABOLIC 0 [facility] [place] [address] LINETTE SUE TROPONIN 0 [facility] [place] [address] LINETTE SUE LIPASE 0 [facility] INC INC LAPAROSCO 28703 LINETTE SUE PIC 0 [facility] APPENDECT INC INC RAULITO ANESTHESI 53844 COMMUNITY CHUY, A 0 ANESTH LALO A INTRAPERI OF THE TONEAL [place] LOWER ABD W/LAPS NOS CREATINE 43645 LINETTE SUE KINASE 0 [facility] [place] [address] LINETTE SUE AMYLASE 0 [facility] INC INC CREATINE 40682 LINETTE VERMAON KINASE MB 0 [facility] FRACTION INC INC ONLY COMPREHEN 04431 LINETTE SUE SIVE 0 [facility] METABOLIC INC INC PANEL CRITICAL 01401 [facility] C[facility] EMERGENCY III, ILL/INJUR SERVICES [facility] PATIENT ASSOCIATE INIT S 30-[address] [place] [address] LINETTE LINETTE HEAD/BRAI 0 [facility] N W/O INC INC CONTRAST MATERIAL IAADI 74585 LINETTE SUE INFFLUENZ 0 [facility] A A VIRUS INC INC IAADI 06788 LINETTE SUE INFLUENZA 0 [facility] B VIRUS INC INC HOSPITAL G0378 LINETTE VERMAON OBSERVATI 0 [facility] ON INC INC SERVICE PER HOUR LEVEL III 35433 PATHOLOGY PATHOLOGY SURG 0 & & PATHOLOGY CYTOLOGY CYTOLOGY LAB LAB GROSS&CHARLEY ROSCOPIC EXAM BLOOD 20267 LINETTE SUE COUNT 0 [facility] COMPLETE INC INC AUTO&AUTO DIFRNTL WBC 3D 61156 LEONEL ANDREA, RENDERING 0 MEDICAL OLESYA IMAGING W/INTERP& ASSOCIATE POSTPROC S DIFF WORK STATION 3D 67319 LINETTE SUE RENDERING 0 [facility] W/INTERP INC INC & POSTPROCE SS SUPERVISI ON CT PELVIS 56419 LINETTE SUE W/O 0 [facility] CONTRAST INC INC MATERIAL RADEX ABD 46969 LEONEL ANDREA, COMPL 0 MEDICAL OLESYA AQT ABD IMAGING W/S/E/D ASSOCIATE VIEWS 1 S VIEW CH ECG 94723 LINETTE SUE ROUTINE 0 [facility] ECG INC INC W/LEAST 12 LDS TRCG ONLY W/O I&[place] [address] LINETTE SUE INFUSION 0 [facility] THER INC INC PROPH ADDL SEQUENTIA L TO 1 HR URNLS DIP 50155 [facility]ETTE SUE 0 [facility] STICK/TAB INC [place] [address] LEONEL ZULLY, ABDOMEN 0 MEDICAL [facility] W/O IMAGING CONTRAST ASSOCIATE MATERIAL S RHYTHM 11077 LINETTE SUE ECG 1-3 0 [facility] LEADS INC INC TRACING ONLY W/O I&R ECG 59511 LINETTE [place], ROUTINE 0 [facility] W/LEAST PROF SERV 12 LDS I&R ONLY LAPAROSCO 4701 LINETTE SUE PIC 0 [facility] [place] [address] LINETTE SUE INFUSION 0 [facility] THERAPY/P INC INC ROPHYLAXI S /DX 1ST TO 1 HR LIPID 57824 LINETTE SUE PANEL 0 [facility] INC INC BLOOD 11391 LINETTE SUE COUNT 0 [facility] COMPLETE INC INC AUTO&[place] [address] LINETTE SUE THYROID 0 [facility] STIMULATI INC INC NG HORMONE TSH COMPREHEN 31603 LINETTE SUE SIVE 0 [facility] METABOLIC INC INC PANEL EGD 11585 LINETTE SUE BALLOON 9 [facility] DILATION INC INC ESOPHAGUS <30 MM DIAM SPECIAL 77293 PATHOLOGY PATHOLOGY STAIN 9 & & GROUP 1 CYTOLOGY CYTOLOGY MICROORGA LAB LAB [facility] [place] I&[place] [address] PATHOLOGY PATHOLOGY SURG 9 & & PATHOLOGY CYTOLOGY CYTOLOGY LAB LAB GROSS&[place] [address] LINETTE SUE INFUSION 9 [facility] THERAPY INC INC PROPHYLAX IS/DX EA HOUR EGD 01369 GAIL SANCHEZ, TRANSORAL 9 MEDICAL ALEXIS BIOPSY SERV SINGLE/MU FOUNDATIO LTIPLE EGD 64118 GAIL SANCHEZ, INSERT 9 MEDICAL ALEXIS GUIDE SERV WIRE [place] [address] LINETTE SUE INFUSION 9 [facility] THERAPY/P INC INC ROPHYLAXI S /DX 1ST TO 1 HR DILATION 4292 LINETTE SUE OF 9 [facility] ESOPHAGUS INC INC ESOPHAGOG 4516 LINETTE SUE ASTRODUOD 9 [facility] ENOSCOPY INC INC WITH CLOSED BIOPSY HEPATBL 20297 LINETTE SUE DUX SYS 9 [facility] [place] [address] LEONEL ZULLY, ABDOMINAL 9 MEDICAL OLESYA REAL IMAGING TIME ASSOCIATE W/[place] [address] [place], RETROPERI 9 [facility] A REAL TIME PSC W/IMAGE LIMITED ECG 52233 LINETTE SUE ROUTINE 9 [facility] ECG INC INC W/LEAST 12 LDS TRCG ONLY W/O I&R LIPID 79203 LINETTE SUE PANEL 9 [facility] INC INC RADIOLOGI 27851 LINETTE SUE C 9 [facility] EXAMINATI INC INC ON CHEST SINGLE VIEW FRONTAL 3D 73511 LINETTE SUE RENDERING 9 [facility] W/INTERP INC INC & [place] [address] LINETTE SUE ANGIOGRAP 9 [facility] HY CHEST INC INC W/CONTRAS T/NONCONT RAST BLOOD 99913 LINETTE SUE COUNT 9 [facility] COMPLETE INC INC AUTO&AUTO DIFRNTL WBC CREATINE 36250 LINETTE SUE KINASE MB 9 [facility] FRACTION INC INC ONLY CREATINE 95143 LINETTE SUE KINASE 9 [facility] [place] [address] LINETTE SUE TROPONIN 9 [facility] [place] [address] LINETTE SUE HEAD/BRAI 9 [facility] N W/O INC INC CONTRAST MATERIAL BASIC 01615 LINETTE SUE METABOLIC 9 [facility] PANEL INC INC CALCIUM TOTAL COMPREHEN 73173 LINETTE SUE SIVE 9 [facility] [place] [address] LINETTE SUE ANGIOGRAP 9 [facility] HY INC INC ABDOMEN W/CONTRAS T/NONCONT RAST ECG 12672 LINETTE MCCLAIN, ROUTINE 9 [facility] ECG HOSPITAL W/LEAST PROF SERV 12 LDS I&R ONLY DUPLEX 84176 LEONEL BOSTON, SCAN 9 MEDICAL CHAD P EXTRACRAN IMAGING IAL ART ASSOCIATE COMPL BI S STUDY MRI BRAIN 58316 OLESYA C ZULLY, BRAIN 8 ZULLY OLESYA STEM W/O W/CONTRAS T MATERIAL COMPREHEN 90719 LINETTE SUE SIVE 8 [facility] METABOLIC INC INC PANEL LIPID 78094 LINETTE SUE PANEL 8 [place] [address] [facility] SURG 8 CLINIC CLINIC PATHOLOGY LABORATOR LABORATOR Y Y GROSS&CHARLEY ROSCOPIC EXAM SPECIAL 33548 [facility] STAIN 8 CLINIC CLINIC GROUP 1 LABORATOR LABORATOR MICROORGA Y [place] NISMS [place] [address] [facility], ABDOMINAL 8 [place] [facility] REAL CLINIC [place] PSC W/[place] [address] [facility] RETROPERI 8 [facility] REAL TIME PSC W/IMAGE LIMITED ANTIBODY 59349 [facility] HELICOBAC 8 CLINIC CLINIC TER LABORATOR LABORATOR PYLORI Y Y COLLECTIO 24092 [facility] N VENOUS 8 CLINIC CLINIC BLOOD LABORATOR LABORATOR VENIPUNCT Y Y URE RADIOLOGI 15717 LINETTE SUE C 8 [facility] EXAMINATI INC INC ON CHEST SINGLE VIEW FRONTAL THROMBOPL 67828 LINETTE SUE ASTIN 8 [facility] TIME INC INC PARTIAL PLASMA/WH OLE BLOOD BASIC 45518 LINETTE SUE METABOLIC 8 [facility] [place] [address] LINETTE SUE TROPONIN 8 [facility] QUANTITAT INC INC [place] PROTHROMB 81951 LINETTE SUE IN TIME 8 [facility] INC INC CREATINE 10063 LINETTE SUE KINASE 8 [facility] TOTAL INC INC CREATINE 07116 LINETTE SUE KINASE MB 8 [facility] FRACTION INC INC ONLY BLOOD 11953 LINETTE SUE COUNT 8 [facility] COMPLETE INC INC AUTO&AUTO DIFRNTL WBC ECG 66353 LINETTE SUE ROUTINE 8 [facility] ECG INC INC W/LEAST 12 LDS TRCG ONLY W/O I&[place] [address] LINETTE SUE ANGIOGRAP 8 [facility] HY INC INC ABDOMEN W/CONTRAS T/NONCONT RAST ECG 20049 LINETTE MCCLAIN, ROUTINE 8 [facility] HOSPITAL W/LEAST PROF SERV 12 LDS I&R ONLY RADEX 97180 [facility] ANDREA, SPINE 8 MEDICAL OLESYA LUMBOSACR IMAGING AL ASSOCIATE MINIMUM 4 S VIEWS OPHTH 81932 [facility] 8 MICHAEL A MICHAEL A XM&EVAL COMPRE NEW PT 1/> VST DUPLEX 58582 [facility] SCAN 8 MEDICAL [facility] EXTRACRAN IMAGING IAL ART ASSOCIATE COMPL BI S STUDY GROUND A0425 DAVID HERNANDEZ MILEAGE 8 AMBULANCE AMBULANCE PER SERVICE SERVICE STATUTE MILE 3D 93929 [facility] ANDREA, RENDERING 8 MEDICAL OLESYA W/INTERP IMAGING & ASSOCIATE [place] 3D 62067 [place] ZULL[place], RENDERING 8 MEDICAL OLES[facility] IMAGING W/INTERP& ASSOCIATE [place] [address] [facility] ANDREA CERVICAL 8 MEDICAL OLESYA SPINE W/O IMAGING CONTRAST ASSOCIATE MATERIAL S RADIOLOGI 30272 [place] Marbella ANDREA 8 MEDICAL OLESYA EXAMINATI IMAGING ON CHEST ASSOCIATE SINGLE S VIEW FRONTAL AMB A0422 DAVID HERNANDEZ OXYGEN&O2 8 AMBULANCE AMBULANCE SUPPLIES SERVICE SERV[place] [address] [facility] ANDREA HEAD/BRAI 8 MEDICAL OLESYA N W/O IMAGING CONTRAST ASSOCIATE MATERIAL S AMB A0427 DAVID HERNANDEZ SERVICE 8 AMBULANCE AMBULANCE ALS SERVICE SERVICE EMERGENCY TRANSPORT LEVEL 1 IODINE A9516 LINETTE LINETTE I-123 8 [facility] SODIUM INC INC IODIDE DX PER 100 UCI TO 999 THYROID 51610 [place] LUDY, SAVANA 8 MEDICAL CHAD P W/UPTAKE IMAGING SINGLE ASSOCIATE DETERMINA S TION THYROID 55044 LINETTE LINETTE UPTAKE 8 [facility] [place] [address] LINETTE SUE TROPONIN 8 [facility] QUANTITAT INC INC [place]PA COMPREHEN 36451 LINETTE SUE SIVE 8 [facility] METABOLIC INC INC PANEL CREATINE 74613 LINETTE SUE KINASE MB 8 [facility] FRACTION INC INC ONLY CREATINE 39744 LINETTE SUE KINASE 8 [facility] TOTAL INC INC ECG 24813 LINETTE SUE ROUTINE 8 [facility] ECG INC INC W/LEAST 12 LDS TRCG ONLY W/O I&R BLOOD 13580 LINETTE SUE COUNT 8 [facility] COMPLETE INC INC AUTO&AUTO DIFRNTL WBC URNLS DIP 00819 LINETTE SUE 8 [facility] STICK/TAB INC INC LET REAGENT AUTO MICROSCOP Y ECG 90367 LINETTE MCCLAIN, ROUTINE 8 [facility] HOSPITAL W/LEAST PROF SERV 12 LDS I&R ONLY URNLS DIP 78918 [place] [address] CLINIC CLINIC STICK/TAB LABORATOR LABORATOR LET Y Y REAGENT AUTO MICROSCOP Y RENAL 46410 [facility] FUNCTION 8 CLINIC CLINIC PANEL LABORATOR LABORATOR Y Y COLLECTIO 91052 [facility] VENOUS 8 CLINIC CLINIC BLOOD LABORATOR [place] [address] LINETTE SUE TROPONIN 8 [facility] QUANTITAT INC INC [place] OBSERVATI 32380 NANDINI GRIFFIN ON CARE 8 [facility] NETTIE DISCHARGE INTERNAL MED MANAGEMEN T CREATINE 17182 LINETTE SUE KINASE 8 [facility] TOTAL INC INC CREATINE 15857 LINETTE SUE KINASE MB 8 [facility] FRACTION INC INC ONLY HOSPITAL G0378 LINETTE SUE OBSERVATI 8 [facility] ON INC INC SERVICE PER HOUR ECG 70430 LINETTE SUE ROUTINE 8 [facility] ECG INC INC W/LEAST 12 LDS TRCG ONLY W/O I&R ECG 78856 LINETTE [place], ROUTINE 8 [facility] W/LEAST PROF SERV 12 LDS I&R ONLY ECG 25625 LINETTE [place], ROUTINE 8 [facility] W/LEAST PROF SERV 12 LDS I&R ONLY RHYTHM 18368 LINETTE SUE ECG 1-3 8 [facility] LEADS INC INC TRACING ONLY W/O I&R ECG 59275 LINETTE SUE ROUTINE 8 [facility] ECG INC INC W/LEAST 12 LDS TRCG ONLY W/O I&R BLOOD 58877 LINETTE SUE COUNT 8 [facility] COMPLETE INC INC AUTO&AUTO DIFRNTL WBC INITIAL 57397 [place] 8 [place] ON INTERNAL CARE/DAY MED 30 MINUTES CREATINE 61218 LINETTE SUE KINASE MB 8 [facility] FRACTION INC INC ONLY CREATINE 46878 LINETTE SUE KINASE 8 [facility] TOTAL INC INC BASIC 34139 LINETTE SUE METABOLIC 8 [facility] PANEL INC INC CALCIUM TOTAL PROTHROMB 80275 LINETTE SUE IN TIME 8 [place] [address] LINETTE SUE TROPONIN 8 [facility] QUANTITAT INC INC [place]PA RADIOLOGI 85425 LINETTE USE C 8 [facility] EXAMINATI INC INC ON CHEST SINGLE VIEW FRONTAL CT PELVIS 74235 Dawn LAWSON W/CONTRAS IMAGING T ASSOCIATE MATERIAL S US SOFT 34571 LEONEL BOSTON TISSUE 8 [facility] HEAD & IMAGING NECK REAL ASSOCIATE TIME S IMGE DOCM 3D 54061 LINETTE SUE RENDERING 8 [facility] INC INC W/INTERP& POSTPROC DIFF WORK STATION RADEX 50060 LEONEL MILLERUTCHER SPINE 8 MEDICAL OLESYA CERVICAL IMAGING 6 [place] [address] LINETTE SUE ABDOMEN 8 [facility] W/CONTRAS INC INC T MATERIAL CT THORAX 46603 LINETTE SUE 8 [facility] W/CONTRAS INC INC T MATERIAL BLOOD 92353 LINETTE SUE COUNT 8 [facility] COMPLETE INC INC AUTO&AUTO DIFRNTL WBC LIPID 88163 LINETTE SUE PANEL 8 [place] [address] LINETTE SUE THYROXINE 8 [facility] TOTAL INC INC COMPREHEN 46832 LINETTE [facility] SIVE 8 [facility] METABOLIC INC INC PANEL HEMOGLOBI 88485 [facility] N 8 [facility] GLYCOSYLA INC INC SONG A1C CYANOCOBA 48744 [facility] JUAN 8 [facility] VITAMIN INC INC B-12 [place] [address] [facility] S[facility] THYROID 8 [facility] STIMULATI [place] [address] [facility] FOLIC 8 [facility] ACID INC INC SERUM CREATINE 09253 [facility] KINASE MB 8 [facility] FRACTION INC INC ONLY CREATINE 43929 [facility] S[facility] KINASE 8 [facility] TOTAL INC INC BASIC 80032 [facility] METABOLIC 8 [facility] [place] [address] [facility] TROPONIN 8 [facility] QUANTITAT INC INC RPUA INITIAL 47940 [place] SAV[place], INPATIENT 8 HEART & AMADOR Y CONSULT VASCULAR NEW/ESTAB ASSOC PT 80 MIN LIPID 55911 [facility] PANEL 8 [facility] INC INC INJECTION 19887 [place] MELINA, CARDIAC 8 HEART & AMADOR Y CATHJ L VASCULAR VENTR/[place] [address] [place] MELINA, CATHETERI 8 HEART & AMADOR Y ZATION VASCULAR [place]RO[place] [address] [place] M[place], C-CATHJ 8 HEART & AMADOR Y F/SLCTV C VASCULAR ANGRPH ASSOC I SI&R 75584 LEONEL SUMMERS, F/NJX PX 8 HEART & AMADOR Y DURING VASCULAR C-CATHJ ASSOC VENTR&/AT R ANGRPH I SI&R 85024 LEONEL SUMMERS, F/NJX PX 8 HEART & AMADOR Y DURING VASCULAR C-CATHJ ASSOC PULM&/OR SELECT GROUND A0425 [facility] 8 AMBULANCE AMBULANCE PER SERVICE SERVICE STATUTE MIL BLOOD 87923 [facility] COUNT 8 [facility] COMPLETE INC INC AUTO&AUTO DIFRNTL WBC ECG 80967 [facility] S[facility] ROUTINE 8 [facility] ECG INC INC W/LEAST 12 LDS TRCG ONLY W/O I&R HOSPITAL [id number] [facility] OBSERVATI 8 [facility] ON INC INC SERVICE PER HOUR ECG 19685 [facility] MCCLAIN, ROUTINE 8 [facility] W/LEAST PROF SERV 12 LDS I&R ONLY NONINVASI 15725 [facility] VE 8 [facility] EAR/PULSE INC INC OXIMETRY SINGLE DETER NONINVASI 72986 [facility] VE 8 [facility] EAR/PULSE INC INC OXIMETRY SINGLE DETER RHYTHM 89506 [facility] ECG 1-3 8 [facility] LEADS INC INC TRACING ONLY W/O I&R ECG 22313 [facility] MCCLAIN, ROUTINE 8 [facility] ECG HOSPITAL W/LEAST PROF SERV 12 LDS I&R ONLY ECG 87363 [facility] ROUTINE 8 [facility] ECG INC INC W/LEAST 12 LDS TRCG ONLY W/O I&R RADIOLOGI 31835 [place] LI 8 MEDICAL OLESYA EXAMINATI IMAGING ON CHEST ASSOCIATE SINGLE S VIEW FRONTAL BLOOD 90091 [facility] COUNT 8 [facility] COMPLETE INC INC AUTO&AUTO DIFRNTL WBC HOSPITAL G0378 [facility] OBSERVATI 8 [facility] [place] [address] [facility] S[facility] TROPONIN 8 [facility] QUANTITAT INC INC RUPA COMPREHEN 42962 [facility] SIVE 8 [facility] METABOLIC INC INC PANEL THROMBOPL 58770 [facility] ASTIN 8 [facility] TIME INC INC PARTIAL PLASMA/WH OLE BLOOD NATRIURET 27750 [facility] IC 8 [facility] PEPTIDE INC INC PROTHROMB 31010 [facility] IN TIME 8 [facility] INC INC CREATINE 92647 [facility] KINASE 8 [facility] TOTAL INC INC CREATINE 75409 [facility] S[facility] KINASE MB 8 [facility] FRACTION INC INC ONLY MRI 40832 OLESYA C ZULLY, SPINAL 8 ZULLY OLESYA CANAL LUMBAR W/O CONTRAST MATERIAL MRI 37793 OLESYA C ZULLY, SPINAL 8 ZULLY OLESYA CANAL CERVICAL W/O CONTRAST [employer] SERVICES 19450 Brigida CALVILLO 8 KRISTIAN DOSS C OFFICE PSC OT/N REG SCHED HOURS Encounters Encounter Start End Date Code Location Performer Type Date [facility] - 7 7 [place] H[facility] OUTPATIEN [facility] T OFFICE 90268 LAVINIA MCKEON 7 7 Kate TOWNSEND MD,[facility] [address] [facility] - 7 7 [facility] OUTPATIEN [facility] T [facility] 63208 [facility] OUTPATIDERRICK 7 7 PHYSICIAN T VISIT S GROUP [address] [facility] - 7 7 [facility] - 7 7 [facility] OUT[facility]EN [facility] T OFF[facility] 77036 [facility] OUTPATIEN 7 7 PHYSICIAN T VISIT S GROUP [address] [facility] - 7 7 [facility]EN [facility] T OFF[facility] 03146 LAVINIA MCKEON 7 7 Kate TOWNSEND MD,PSC 15 MINUTES HOSP[facility] - 7 7 [facility] OUTPATIEN INC T OFFICE 68772 [facility] OUTPATIEN 7 7 PHYSICIAN T VISIT S GROUP 40 MINUTES HOSP[facility] - 7 7 [facility] INC T OFFICE 32687 [facility] CB OUTPATIEN 7 7 PHYSICIAN T VISIT 5 S GROUP MINUTES HOSP[facility] - 7 7 [facility] OUTPATIEN INC T EMERGENCY 24415 [facility] 7 7 [facility] DEPARTMEN INC T VISIT HIGH/URGE NT SEVERITY OFFICE 30951 [facility] LEIVA OUTPATIEN 7 7 [facility] 10 P MINUTES EMERGENCY 27275 DEMETRIS ANDERS DEPT 7 7 PHYSICIAN VISIT S, PLL[facility] HIGH SEVERITY& [facility] INC T EMERGENCY 29525 [facility] 7 7 [facility] DEPARTMEN INC T VISIT LOW/MODER SEVERITY OFFICE 91595 [facility] NATHAN OUTPATIEN 7 7 T NEW 30 CHIROPRAC MINUTES [facility] - 7 7 [facility] OUTPATIEN INC T OFFICE 79762 LAVINIA KATE OUTPATIEN 7 7 Kate TOWNSEND MD,PSC 25 MINUTES HOSP[facility] - 7 7 [facility]PATIEN INC T OFFICE 43673 [facility] OUTPATIEN 7 7 [facility] T VISIT 5 INC MINUTES [facility] - 7 7 [facility] - 7 7 [facility] T [facility] 7 7 [facility] INC T OFFICE 68016 [facility] OUTPATIEN 7 7 PHYSICIAN T VISIT S GROUP 25 MINUTES HOSP[facility] - 7 7 [facility]PAT[facility]EN INC T EMERGENCY 01565 DEMETRIS HUYNH DEPT 7 7 PHYSICIAN U VISIT S, [facility] HIGH SEVERITY& THREAT FUNJ [facility] - 7 7 [facility] OUTPATIEN INC T EMERGENCY 60662 [facility] 7 7 [facility] DEPARTMEN INC T VISIT MODERATE SEVERITY OFFICE 65795 [facility] LEIVA OUTPATIEN 7 7 [facility] T VISIT HOSPITAL 15 P MINUTES OFFICE 02224 ALBIONJENNIFER ADRIELALEXANDRALADAN OUTPATIEN 7 7 [facility] VISIT [facility]ICAL 15 G MINUTES HOSP[facility] - 6 6 [facility] INC T OFFICE 76297 [facility] OUTPATIEN 6 6 PHYSICIAN T VISIT S GROUP 25 MINUTES HOSP[facility] - 6 6 [facility] OUTPATIEN INC T OFFICE 98724 LAVINIA TOWNSEND OUTPATIEN 6 6 Kate TOWNSEND MD,[facility] 25 MINUTES OFFICE 63035 [facility] LEIVA OUTPATIEN 6 6 [facility] T VISIT HOSPITAL 10 P MINUTES OFFICE 68164 KANE FERRARA OUTPATIEN 6 6 T VISIT 10 MINUTES EMERGENCY 46910 DEMETRIS ANDERS DEPT 6 6 PHYSICIAN CHARLEY VISIT S, [facility] HIGH SEVERITY& THREAT FUNCJ EMERGENCY 91349 [facility] 6 6 [facility] DEPARTMEN INC T VISIT HIGH/URGE NT SEVERITY [facility] - 6 6 [facility] OUTPATIEN INC T OFFICE 49883 LAVINIA ALDANA OUTPATIEN 6 6 STEPHEN TOWNSEND MD,[facility] - 6 6 [facility] OUTPATIEN INC T EMERGENCY 76461 DEMETRIS CHAGO 6 6 PHYSICIAN CHARLEY DEPARTMEN S, [facility] T VISIT HIGH/URGE NT SEVERITY [facility] - 6 6 [facility] OUTPATIEN INC T EMERGENCY 08978 [facility] 6 6 [facility] DEPARTMEN INC T VISIT MODERATE SEVERITY OFFICE 15943 [facility] CB TOD OUTPATIEN 6 6 PHYSICIAN T VISIT S GROUP 10 MINUTES HOSP[facility] - 6 6 [facility]PATIEN INC T OFFICE 28568 [facility] TOD OUTPATIEN 6 6 PHYSICIAN T VISIT 5 S GROUP MINUTES [facility] - 6 6 [facility] INC T OFFICE 82634 [facility] OUTPATIEN 6 6 PHYSICIAN CHARLEY T VISIT S GROUP 15 MINUTES HOSP[facility] - 6 6 [facility] OUTPATIEN INC T OFFICE 53624 [facility] OUTPATIEN 6 6 PHYSICIAN MAT T VISIT S GROUP 25 MINUTES HOSP[facility] - 6 6 [facility] INC T OFFICE 46288 [facility] TOD CONSULTAT 6 6 PHYSICIAN ION S GROUP NEW/ESTAB PATIENT 30 MIN OFFICE 01412 [facility] OUTPATIEN 6 6 PHYSICIAN CHARLEY T VISIT S GROUP 10 MINUTES OFFICE 45377 [facility] OUTPATIEN 6 6 PHYSICIAN CHARLEY T VISIT S GROUP 10 MINUTES OFFICE 67729 BOYD MCKEON 6 6 MD JERMAINE, T VISIT PSC 15 MINUTES OFFICE 71378 [facility] OUTPATIEN 6 6 PHYSICIAN CHARLEY T VISIT S GROUP 10 MINUTES OFFICE 30059 BOYD MCKEON 6 6 MD JERMAINE, T VISIT PSC 15 MINUTES OFFICE 76849 PROGRESSI BANDAR OUTPATIEN 6 6 VE TEREZA T NEW 30 PODIATRY MINUTES OFFICE 21242 [facility] EDWARD OUTPATIEN 6 6 PHYSICIAN EUG T VISIT S GROUP 15 MINUTES OFFICE 95642 BOYD BARRETT OUTPATIEN 6 6 MD JERMAINE, T VISIT PSC 25 MINUTES OFFICE 04726 [facility] OUT[facility]IEN 6 6 [facility] T VISIT INC 10 MINUTES [facility] - 6 6 [facility] T HOSPITAL [facility] - 6 6 [facility] - 6 6 [facility] T OFFICE 34231 [facility] 6 Y T VISIT 5 HOSPITAL MINUTES OFFICE 54778 [facility] CONSULTAT 6 6 MEDICAL THO ION SERV NEW/ESTAB FOUNDATIO PATIENT N 40 MIN HOSPITAL UNIVERSIT - 6 6 [facility] - 6 6 [facility] T OFFICE 65049 SCIFRES SCIFRES OUTPATIEN 6 6 ANG ANG T VISIT 10 MINUTES OFFICE 16793 BOYD ASHER OUTPATIEN 6 6 MD JERMAINE, T VISIT PSC 15 MINUTES HOSPITAL [facility] - 6 6 [facility] OUTPATIEN INC T EMERGENCY 09068 [facility] 6 6 [facility] DEPARTMEN INC T VISIT HIGH/URGE NT SEVERITY [facility] - 6 6 [facility] OUTPATIEN INC T EMERGENCY 88582 DEMETRIS NIELSON DEPT 6 6 PHYSICIAN VISIT S, [facility] HIGH SEVERITY& THREAT [facility] LINETTE - 6 6 [facility] OUTPATIEN INC T [facility]OSP[facility] - 6 6 [facility]PATIEN INC T [facility] - 5 5 [facility] OUTPATIEN INC T EMERGENCY 27483 DEMETRIS XENIACLARENCE ADRIEL 5 5 PHYSICIAN [facility] T VISIT MODERATE SEVERITY EMERGENCY 41493 [facility] 5 5 [facility] T VISIT LOW/MODER SEVERITY [facility] - 5 5 [facility] OUTPATIEN INC T OFFICE 53988 [facility] 5 5 PHYSICIAN [facility] T VISIT S GROUP 10 MINUTES OFFICE 92945 [facility] GRETCHEN OUTPATIEN 5 5 [facility] T VISIT MEDICAL 15 G MINUTES HOSPITAL [facility] - 5 5 [facility] OUTPATIEN INC T OFFICE 18462 BOYD ASHER OUTPATIEN 5 5 MD JERMAINE, T VISIT PSC 15 MINUTES [facility]OSP[facility] - 5 5 [facility] - 5 5 [facility] OUTPATIEN INC T OFFICE 78719 BOYD BARRETT OUTPATIEN 5 5 MD JERMAINE, T VISIT PSC 15 MINUTES HOSPITAL [facility] - 5 5 [facility] T OFFICE 16465 [facility] LEIVA OUTPATIEN 5 5 [facility] T VISIT HOSPITAL 10 P MINUTES EMERGENCY 82365 DEMETRIS HUYNH 5 5 PHYSICIAN Dee [facility] T VISIT HIGH/URGE NT SEVERITY OFFICE 66573 [facility] LEIVA OUTPATIEN 5 5 [facility] T VISIT HOSPITAL 15 P MINUTES [facility]OSP[facility] - 5 5 [facility]PATIEN [facility] T OFFICE 09332 FREDY PATTERSONX BUX ANJ OUTPATIEN 5 5 MD T VISIT 10 MINUTES OFFICE 29336 CARDIOVAS [facility] OUTPATIEN 5 5 CULAR MAT T VISIT CONSULTAN 15 TS O MINUTES HOSPITAL [facility] - 5 5 [facility] OUTPATIEN INC T OFFICE 39772 FREDY PATTERSONX BUX ANJ OUTPATIEN 5 5 MD T NEW 30 MINUTES HOSP[facility] - 5 5 [facility] OUTPATIEN INC T OFFICE 06681 CARDIOVAS [facility]O OUTPATIEN 5 5 CULAR MAT T NEW 45 CONSULTAN MINUTES TS O HOSPITAL [facility] - 5 5 [facility] OUTPATIEN INC T OFFICE 97881 [facility] OUTPATIEN 5 5 PHYSICIAN CHARLEY T VISIT S GROUP 10 MINUTES HOSP[facility] - 5 5 [facility] OUTPATIEN INC T [facility] - 5 5 [facility] OUTPATIEN INC T EMERGENCY 91277 [facility] 5 5 [facility] DEPARTMEN INC T VISIT HIGH/URGE NT SEVERITY OFFICE 51361 [facility] 4 4 [facility] T VISIT MEDICAL 10 G MINUTES HOSP[facility] - 4 4 [facility] OUTPATIEN INC T [facility] - 4 4 [facility] OUTPATIEN INC T OFFICE 85975 LEIVA LEIVA OUTPATIEN 4 4 ART ART T VISIT 15 MINUTES OFFICE 33443 LEIVA LEIVA OUTPATIEN 4 4 ART ART T VISIT 15 MINUTES [facility] - 4 4 [facility] OUTPATIEN INC T EMERGENCY 45213 JAIDEN CAMILLA JAIDEN CAMILLA 4 4 DEPARTMEN T VISIT HIGH/URGE NT SEVERITY OFFICE 19877 GRETCHEN GODINEZ OUTPATIEN 4 4 JUDAH TREVINO T NEW 45 MINUTES OFFICE 97127 [facility] ANDERS OUTPATIEN 4 4 CHARLEY CHARLEY T VISIT 10 MINUTES [facility] - 4 4 [facility] OUTPATIEN INC T EMERGENCY 83476 [facility] 4 4 [facility] DEPARTMEN INC T VISIT MODERATE SEVERITY EMERGENCY 96856 [facility] 4 4 III AREN III AREN DEPARTMEN T VISIT HIGH/URGE NT SEVERITY EMERGENCY 09814 [facility] DEPT 4 4 III AREN III AREN VISIT HIGH SEVERITY& THREAT [facility] LIENTTE - 4 4 [facility] OUTPATIEN INC T OFFICE 50637 [facility] RIVERAEY OUTPATIEN 4 4 CHARLEY CHARLEY T NEW 30 MINUTES HOSP[facility] - 4 4 [facility] OUTPATIEN INC T EMERGENCY 06699 [facility] DEPT 4 4 [facility] VISIT INC HIGH SEVERITY& THREAT [facility] OFFICE 44802 VITA [facility] OUTPATIEN 4 4 T NEW 45 MINUTES HOSPITAL [facility] - 3 3 [facility] OUTPATIEN INC T OFFICE 88692 SHAYEMIHira CRMIE OUTPATIEN 3 3 JR AREN JR AREN T VISIT 15 MINUTES HOSPITAL [facility] 3 3 [facility] 96544 UNIVERSIT OUTPATIEN 3 3 Y T NEW 10 HOSPITAL MINUTES OFFICE 12068 [facility]OPE[facility] PHI [facility]OPE[facility] PHI CONSULTAT 3 3 ION NEW/ESTAB PATIENT 40 MIN HOSP[facility] - 3 3 [facility] OUTPATIEN INC T OFFICE 29356 MCERINMIE MCKEMIE OUTPATIEN 3 3 JR AREN YOUNGER T VISIT 15 MINUTES HOSPITAL [facility] - 3 3 [facility] T [facility] - 3 3 [facility] T [facility] - 3 3 [facility] - 3 3 [facility] T [facility] - 3 3 [facility] OUTPATIEN INC T OFFICE 03086 LAUREN AGUILAR OUTPATIEN 3 3 SAVITA SAVITA T VISIT 15 MINUTES OFFICE 49254 MCKEMIE MCKEMIE OUTPATIEN 3 3 JR AREN YOUNGER T VISIT 15 MINUTES OFFICE 15587 MCKEMIE MCKEMIE OUTPATIEN 3 3 JR AREN YOUNGER T VISIT 15 MINUTES HOSPITAL [facility] - 3 3 [facility] T OFFICE 75683 MCKEMIE MCKEMIE OUTPATIEN 3 3 JR AREN YOUNGER T VISIT 15 MINUTES Emergency SERGIO BRADFORD MD (ER) 3 15:33 3 19:06 [facility] EMERGENCY 44379 [facility] 3 3 [facility] DEPARTMEN INC T VISIT LOW/MODER SEVERITY [facility] - 3 3 [facility] OUTPATIEN INC T EMERGENCY 52649 VOLODYMYR BRADFORD 3 3 EMERGENCY [facility] T VISIT HIGH/URGE NT SEVERITY OFFICE 86232 MCKEMIE MCKEMIE OUTPATIEN 3 3 JR AREN YOUNGER T VISIT 15 MINUTES Emergency SERGIO Sue (ER) 3 18:40 3 21:51 [facility] LINETTE - 3 3 [facility] OUTPATIEN INC T EMERGENCY 12233 [facility] DEPT 3 3 CHARLEY CHARLEY VISIT HIGH SEVERITY& THREAT FUNCJ EMERGENCY 42151 [facility] 3 3 [facility] DEPARTMEN [facility] T VISIT HIGH/URGE NT SEVERITY [facility]OSPITAL [facility] - 3 3 [facility] OUTPATIEN INC T OFFICE 81726 NATHALY DENTONE OUTPATIEN 3 3 JR AREN YOUNGER T VISIT 15 MINUTES HOSPITAL [facility] - 3 3 [facility]PAT[facility]EN [facility] T EMERGENCY 25434 [facility] DEPT 3 3 CHARLEY CHARLEY VISIT HIGH SEVERITY& THREAT FUNCJ EMERGENCY 53284 [facility] 3 3 [facility] DEPARTMEN [facility] T VISIT HIGH/URGE NT SEVERITY [facility]OSP[facility] - 2 2 [facility] - 2 2 [facility]EN [facility] T OFFICE 73588 LEIVA LEIVA OUTPATIEN 2 2 ART ART T VISIT 5 MINUTES HOSPITAL [facility] - 2 2 [facility] - 2 2 [facility]PAT[facility]EN [facility] T OFFICE 38755 LEIVA LEIVA OUTPATIEN 2 2 ART ART T NEW 20 MINUTES [facility]OSP[facility] - 2 2 [facility]PAT[facility]EN [facility] T OFFICE 37484 JAMA YUN OUTPATIEN 2 2 ARPAN NAN T VISIT 15 MINUTES HOSPITAL [facility] - 2 2 [facility]PAT[facility]EN [facility] T OFFICE 38929 JAMA YUN OUTPATIEN 2 2 ARPAN ANTONY T VISIT 15 MINUTES OFFICE 90014 NICK ROMERO OUTPATIEN 2 2 CARLOTA CARLOTA T NEW 60 MINUTES OFFICE 04187 MCKEMIE MCKEMIE OUTPATIEN 2 2 JR AREN JR AREN T VISIT 15 MINUTES HOSPITAL [facility] - 2 2 [facility] OUTPATIEN INC T OFFICE 31861 BESSON BESSON OUTPATIEN [address] [facility] CAMILLA T VISIT 25 MINUTES OFFICE 31547 KANE MIDDLETON ALEM OUTPATIEN 2 2 T VISIT 10 MINUTES EMERGENCY 50966 [facility] DEPT 2 2 III AREN III AREN VISIT HIGH SEVERITY& THREAT FUNCJ EMERGENCY 52999 [facility] 2 2 [facility] DEPARTMEN INC T VISIT HIGH/URGE NT SEVERITY [facility]OSPITAL [facility] - 2 2 [facility] OUTPATIEN INC T OFFICE 48718 MCKEMIE MCKEMIE OUTPATIEN 2 2 JR AREN RAI AREN T VISIT 15 MINUTES OFFICE 05304 [facility] OUTPATIEN 2 2 T NEW 10 MINUTES HOSPITAL [facility] - 2 2 [facility] OUTPATIEN INC T OFFICE 33828 ODALYS BL ODALYS LB OUTPATIEN 2 2 T VISIT 10 MINUTES EMERGENCY 88781 [facility] 2 2 [facility] DEPARTMEN INC T VISIT MODERATE SEVERITY [facility]OSP[facility] - 2 2 [facility] OUTPATIEN INC T EMERGENCY 52451 [facility] DEPT 2 2 III AREN III AREN VISIT HIGH SEVERITY& THREAT FUNCJ EMERGENCY 70070 BARAHONA MICHELLE BARAHONA MICHELLE DEPT 1 1 VISIT HIGH SEVERITY& THREAT FUNCJ EMERGENCY 13651 [facility] 1 1 [facility] DEPARTMEN INC T VISIT MODERATE SEVERITY [facility]OSP[facility] - 1 1 [facility] OUTPATIEN INC T OFFICE 97184 [facility] BESSON OUTPATIEN 1 1 [place] T VISIT INTERNAL 25 MED MINUTES OFFICE 61788 ODALYS LB ODALYS LB OUTPATIEN 1 1 T NEW 30 MINUTES OFFICE 18383 BISHNU TAMIKO RAI OUTPATIEN 1 1 [facility]EN T VISIT CLINIC 15 PSC MINUTES OFFICE 12086 NEW MITCH MAT OUTPATIEN 1 1 [facility] T VISIT CLINIC 25 PSC MINUTES OFFICE 01083 [facility] OUTPATIEN 1 1 [place] T VISIT INTERNAL 25 MED MINUTES OFFICE 44373 BISHNU MCCORMACK CONSULTAT 1 1 [facility] NEW/ESTAB PSC PATIENT 80 MIN [facility] - 1 1 [facility] OUTPATIEN INC OFFICE 23054 [facility]ESSON OUTPATIEN 1 1 [facility] VISIT INTERNAL 15 MED MINUTES HOSPITAL [facility] - 1 1 [facility] OUTPATIEN INC T EMERGENCY 51768 [facility] 1 1 [facility] DEPARTMEN [facility] T VISIT MODERATE SEVERITY EMERGENCY 89574 VOLODYMYR CAMPOS DEPT 1 1 EMERGENCY III AREN VISIT SERVICES HIGH SEVERITY& THREAT FUN OFFICE 83541 [facility] OUTPATIEN 1 1 [facility] VISIT INTERNAL 25 MED MINUTES OFFICE 32794 [facility] OUTPATIEN 1 1 [facility] VISIT INTERNAL 25 MED MINUTES HOSP[facility] - 1 1 [facility] - 1 1 [facility] OUTPATIEN INC OFFICE 90579 [facility] BESSON OUTPATIEN 1 1 [facility] T VISIT INTERNAL 25 MED MINUTES HOSPITAL [facility] - 1 1 [facility] OUTPATIEN INC [facility] - 1 1 [facility] OUTPATIEN INC T OFFICE 04486 [facility] BESSON OUTPATIEN 1 1 [facility] T VISIT INTERNAL 15 MED MINUTES [facility]OSP[facility] - 1 1 [facility] OUTPATIEN INC T EMERGENCY 16390 VOLODYMYR CAMPOS DEPT 1 1 EMERGENCY III AREN VISIT SERVICES HIGH SEVERITY& THREAT FUNCJ EMERGENCY 27789 [facility] 1 1 [facility] DEPARTMEN INC T VISIT HIGH/URGE NT SEVERITY OFFICE 79565 [facility] MCKEMIE OUTPATIEN 1 1 NAHUN YOUNGER T VISIT INTERNAL 15 MED MINUTES OFFICE 13591 [facility] MCKEMIE OUTPATIEN 1 1 NAHUN YOUNGER T VISIT INTERNAL 15 MED MINUTES OFFICE 59848 [facility] BESSON OUTPATIEN 1 1 NAHUN SAMPSON T VISIT INTERNAL 15 MED MINUTES [facility] - 1 1 [facility] INC T OFFICE 85035 [facility] LAUREN OUTPATIEN 1 1 NAHUN BARNEY T VISIT INTERNAL 15 MEDI MINUTES [facility]OSPITAL [facility] - 1 1 [facility] INC T OFFICE 11724 [facility] MCKEMIE OUTPATIEN 0 0 NAHUN YOUNGER T VISIT INTERNAL 15 MED MINUTES [facility] - 0 0 [facility] INC T OFFICE 43153 [facility] MCKEMIE OUTPATIEN 0 0 NAHUN YOUNGER T VISIT INTERNAL 15 MED MINUTES EMERGENCY 03235 VOLODYMYR BOURNE DEPT 0 0 EMERGENCY VISIT SERVICES HIGH SEVERITY& THREAT FUNCJ OFFICE 96678 [facility] BESSON OUTPATIEN 0 0 NAHUN PAIGE VISIT INTERNAL 15 MED MINUTES OFFICE 64143 BISHNU Aguilar OUTPATIEN 0 0 [facility] T VISIT CLINIC 15 PSC MINUTES OFFICE 52273 [facility] MCKEMIE OUTPATIEN 0 0 Kate GARNICA JR VISIT INTERNAL MCKAYLA F 15 MED MINUTES HOSPITAL [facility]TE - 0 0 [facility] OUTPATIEN INC T EMERGENCY 38151 [facility] 0 0 [facility] DEPARTMEN INC T VISIT HIGH/URGE NT SEVERITY OFFICE 70355 ALLRAN REYMUNDORAN CONSULTAT 0 0 JR CECELIA, ANH JOSHI Donya NEW/ESTAB PATIENT 80 MIN OFFICE 87123 [facility] MCKEMIE OUTPATIEN 0 0 Kate GARNICA JR VISIT INTERNAL MCKAYLA F 15 MED MINUTES HOSPITAL [facility] - 0 0 [facility] OUTPATIEN INC T OFFICE 68133 [facility] MCKEMIE OUTPATIEN 9 9 Kate GARNICA JR VISIT INTERNAL MCKAYLA F 15 MED MINUTES HOSP[facility] - 9 9 [facility] OUTPATIEN INC T OFFICE 49270 GAIL SANCHEZ OUTPATIEN 9 9 ULI ESPINOZA T VISIT SERV 25 FOUNDATIO MINUTES HOSPITAL [facility] - 9 9 [facility] OUTPATIEN INC T [facility] - 9 9 [facility] OUTPATIEN INC T OFFICE 52163 [facility] JOHNY OUTPATIEN 9 9 NAHUN Allred T VISIT INTERNAL 15 MED MINUTES OFFICE 62225 Lauren WAYNE [facility]PATIEN 9 [facility] 15 PSC MINUTES OFFICE 56729 [facility] MCKEMIE OUTPATIEN 9 9 Kate GARINCA JR VISIT INTERNAL MCKAYLA F 15 MED MINUTES EMERGENCY 90012 [facility] 9 9 [facility] DEPARTMEN INC T VISIT HIGH/URGE NT SEVERITY HOSPITAL [facility] - 9 9 [facility] OUTPATIEN INC T EMERGENCY 64674 VOLODYMYR MASON, DEPT 9 9 EMERGENCY [place] VISIT SERVICES O HIGH SEVERITY& ASSOCIATE THREAT S FUN OFFICE 45854 [facility] MCKEMIE OUTPATIEN 9 9 Kate GARNICA JR VISIT INTERNAL MCKAYLA F 15 MED MINUTES OFFICE 87534 [facility] ELIAS, OUTPATIEN 9 9 NAHUN SHEFFIELD T VISIT INTERNAL 15 MED MINUTES OFFICE 71645 [facility] JOHNY, OUTPATIEN 9 9 NAHUN Allred T VISIT INTERNAL 10 MED MINUTES OFFICE 18536 [facility] MCKEMIE OUTPATIEN 9 9 NAHUN RAI Kate VISIT INTERNAL MCKAYLA F 15 MED MINUTES [facility]OSP[facility] - 9 9 [facility] OUTPATIEN INC T OFFICE 33536 [facility] ELIAS, OUTPATIEN 9 9 NAHUN SHEFFIELD T VISIT INTERNAL 15 MED MINUTES HOSPITAL [facility] - 8 8 [facility] OUTPATIEN INC T OFFICE 95199 [facility] ELIAS, OUTPATIEN 8 8 NAHUN SHEFFIELD T VISIT INTERNAL 15 MED MINUTES OFFICE 97672 [facility] ELIAS, OUTPATIEN 8 8 NAHUN SHEFFIELD T VISIT INTERNAL 15 MED MINUTES OFFICE 57776 [facility] MCKEMIE OUTPATIEN 8 8 Kate GARNICA JR VISIT INTERNAL MCKAYLA F 15 MED MINUTES OFFICE 11099 Lauren WAYNE OUTPATIEN 8 8 [facility] T VISIT CLINIC 15 PSC MINUTES EMERGENCY 22981 AMBERLY MASON, ILIANAT 8 8 [facility] [place] VISIT CORPORATI O HIGH ON SEVERITY& THREAT [facility] H[facility]PITAL LIN[facility] - 8 8 [facility] OUTPATIEN INC T EMERGENCY 41700 [facility] 8 8 [facility] DEPARTMEN INC T VISIT MODERATE SEVERITY OFFICE 92820 [facility] MCKEMIE OUTPATIEN 8 8 Kate GARNICA JR VISIT INTERNAL MCKAYLA F 15 MED MINUTES HOSPITAL [facility] - 8 8 [facility] INC T OFFICE 83767 [place] [facility] 8 8 [place] JR, T VISIT INTERNAL MCKAYLA F 15 MED MINUTES [facility] - 8 8 [facility] INC T OFFICE 27837 [place] [facility] 8 8 NAHUN RAI, T VISIT INTERNAL MCKAYLA F 15 MED MINUTES OFFICE 02375 NEW [facility]EN OUTPATIEN 8 8 [place] III, T VISIT CLINIC RADHA L 10 PSC MINUTES OFFICE 04703 Lauren WAYNE CONSULTAT 8 8 [facility]AB PSC PATIENT 60 MIN OFFICE [id number] [place] [facility] OUTPATIEN 8 8 NAHUN RAI, T VISIT INTERNAL MCKAYLA F 15 MED MINUTES HOSP[facility] - 8 8 [facility] OUTPATIEN INC T EMERGENCY 23061 [facility] 8 8 [facility]IGH/URGE NT SEVERITY [facility] - 8 8 [facility] OUTPATIEN INC T EMERGENCY 69820 [facility] [place], 8 8 [facility] T VISIT PROF SERV MODERATE SEVERITY OFFICE 71817 NEW BEN OUTPATIEN 8 8 [place], T NEW 45 CLINIC RADHA L MINUTES PSC EMERGENCY 50860 [facility] DEPT 8 8 [facility] VISIT INC HIGH SEVERITY& THREAT FUN [facility]OSP[facility] - 8 8 [facility] OUTPATIEN INC T PERIODIC 15278 [place] [facility] PREVENTIV 8 8 NAHUN RAI, E MED EST INTERNAL MCKAYLA F PATIENT MED [id number] [facility]OSP[facility] - 8 8 [facility] OUT[facility] INC T OFFICE 53688 YAYO ZEE OUTPATIEN 8 8 [facility] VISIT 40 MINUTES [facility]OSP[facility] - 8 8 [facility] OUTPATIEN INC T EMERGENCY 36967 [facility] 8 8 [facility] T VISIT HIGH/URGE NT SEVERITY EMERGENCY 71058 [facility] COLMENARES DEPT 8 8 [facility] VISIT HOSPITAL HIGH PROF SERV [facility]VERITY& THREAT [facility] - 8 8 [facility] T OFFICE 26893 YAYO ZEE OUTPATIEN 8 8 [facility] T VISIT 40 MINUTES OFFICE 80002 GAIL NYE, CONSULTAT 8 8 [facility] SERV NEW/ESTAB FOUNDATIO PATIENT 40 MIN OFFICE 45393 MIKE BURGER 8 8 KRISTIAN Love VISIT [facility] 15 MINUTES
--- OUTSIDE RECORDS SUMMARY | 2017-09-05 03:28 | External Medical Summary Rpt ---
Author Author , LUIS EDUARDO Garcia LUIS EDUARDO Address Unknown Phone luis .[employer] Care Team Providers Care [place] Planning Manager Name Role Phone ABLECARE, ABLECARE Unavailable Unavailable LEIVA, LEIVA Unavailable Unavailable LEIVA ART, LEIVA Unavailable Unavailable ART LEIVA ART, LEIVA Unavailable Unavailable ADI FERNANDO JR, Unavailable Unavailable ADI SWANSON JR, MD, PSC, Unavailable Unavailable BOYD DEAN MD, PSC LAVINIA KATE Unavailable Unavailable LAVINIA TOWNSEND, Unavailable Unavailable ,PSCLAVINIA MD,PSC CHAZ BRO, WARE Unavailable Unavailable BRO WARE BRO, WARE Unavailable Unavailable BRO BEINEKE, BEINEKE Unavailable Unavailable BEINEKE DAREN, BEINEKE Unavailable Unavailable DAREN BESSON, BESSON Unavailable Unavailable BESSON CAMILLA, BESSON Unavailable Unavailable CAMILLA BESSON CAMILLA, BESSON Unavailable Unavailable CAMILLA BESSON, AYLEEN A, Unavailable Unavailable BESSON, AYLEEN A DELAROSA, DELAROSA Unavailable Unavailable DELAROSA ALL, DELAROSA ALL Unavailable Unavailable DANIEL, ALEXIS, Unavailable Unavailable DANIEL, ALEXIS [facility] Unavailable Unavailable SERVICE, [facility] Unavailable Unavailable SERVICE, [facility] Unavailable Unavailable SERVICE, [facility] BANDAR TEREZA, BANDAR Unavailable [...] Unavailable [facility] [place]available [place]available [place], [facility] [place] [facility] [place] [facility] EDGE DONNIE, EDGE DONNIE Unavailable Unavailable EDGE DONNIE, EDGE DONNIE Unavailable Unavailable FALLUJI VENITA, FALLUJI Unavailable Unavailable VENITA FALLUJI, NEZAR M, Unavailable Unavailable FALLUJI, NEZAR M FEEBACK, FEEBACK Unavailable Unavailable LAUREN SAVITA, Unavailable Unavailable LAUREN SAVITA FRYMAN EUG, FRYMAN Unavailable Unavailable EUG SULLY, , VIRK, Unavailable Unavailable JR CHAGO, CHAGO Unavailable Unavailable CHAGO CHARLEY, CHAGO Unavailable Unavailable CHARLEY CHAGO CHARLEY, CHAGO Unavailable Unavailable CHARLEY BARAHONA MICHELLE, BARAHONA MICHELLE Unavailable Unavailable [facility] Unavailable Unavailable [facility], [facility] Unavailable Un[facility] P, [facility] NETTIE GRIFFIN HARVEY, Unavailable Unavailable NETTIE MIDDLETON ALEM, MIDDLETON ALEM Unavailable Unavailable MIDDLETON ALEM, MIDDLETON ALEM Unavailable Unavailable MIDDLETON, MICHAEL A, Unavailable Unavailable MIDDLETON, MICHAEL A [facility], Unavailable Unavailable [facility] MIESHA NIELSON, MIESHA NIELSON Unavailable Unavailable KATYA MITCHELL, KATYA Unavailable Unavailable MITCHELL JAMA NAN, JAMA Unavailable Unavailable NAN JAMA NAN, JAMA Unavailable Unavailable NAN [facility] Unavailable Unavailable MEDICAL G, [facility] Unavailable Unavailable DEPARTMENT, [facility] Un[facility], [facility] DALLAS CRI, DALLSA CRI Unavailable Unavailable NAN, ALBA E, Unavailable Unavailable NAN, ALBA E [facility] Unavailable Unavailable LABORATORY, [facility] [place] Unavailable Unavailable [facility], [facility] [place] Unavailable Unavailable [facility], [facility] FREDY DEAN MD, FREDY Unavailable Unavailable JERMAINE DOSS MAJORS G, MAJORS G Unavailable Unavailable VITA HAM, VITA HAM Unavailable Unavailable VITA HAM, VITA HAM Unavailable Unavailable [facility] Unavailable Unavailable SERVICES, [facility] NICK VAN, Unavailable Unavailable ROMERO JAM ROMERO JAM, Unavailable Unavailable ROMERO JAM MCKEMIE JR AREN, Unavailable Unavailable MCKEMIE JR AREN MCKEMIE JR AREN, Unavailable Unavailable MCKEMIE JR AREN MCANNMARIEE JR, MCKAYLA Unavailable Unavailable F, BERTINE JR, MCKAYLA F MINEER EDELMIRA, MINEER Unavailable Unavailable EDELMIRA LUDY, CHAD P, Unavailable Unavailable LUDY, CHAD P MOHAMMADZADEH, Unavailable Unavailable MOHAMMADZADEH MOHAMMADZADEH HAM, Unavailable Unavailable MOHAMMADZADEH HAM [facility] Unavailable Unavailable PSC, [facility] O'JENNIFER LISA, O'JENNIFER Unavailable Unavailable LISA YAYO, LISBETH, Unavailable Unavailable LISBETH [facility], [...] Unavailable JAIDEN CAMILLA, JAIDEN CAMILLA Unavailable Unavailable RUBI, TAMIR, Unavailable Unavailable RUBI, TAMIR MCCORMACK BERNARDO, Unavailable Unavailable MCCORMACK BERNARDO SADEK MOH, SADEK MOH Unavailable Unavailable SARAFF, AMADOR Y, Unavailable Unavailable SARAFF, AMADOR Y SCHEURICArabella, MARCOS, Unavailable Unavailable SCHEURICArabella, MARCOS SCHULSTAD DONAVAN, Unavailable Unavailable SCHULSTAD DONAVAN SCIFRES ANG, SCIFRES Unavailable Unavailable ANG SCIFRES [...] SOTINGEANU SOTINGEANU DAREN, Unavailable Unavailable SOTINGEANU DAREN SALCIDO, CHUY Unavailable Unavailable [facility], Unavailable Unavailable [facility] VE[facility] POPEYE PHI, POPEYE PHI Unavailable Unavailable POPEYELAKSHMI A, Unavailable Unavailable POPEYE LAKSHMI A MITCH MAT, MITCH MAT Unavailable Unavailable [facility], Unavailable Unavailable [facility] MORRISON W, MORRISON W Unavailable Unavailable MORRISON JR AREN, MORRISON Unavailable Unavailable JR AREN MORRISON, W, MORRISON, W Unavailable Unavailable WEHRMAN III AREN, Unavailable Unavailable WEHRMAN III AREN WEHRMAN III AREN, Unavailable Unavailable WEHRMAN III AREN WEHRMAN III, MCKAYLA, Unavailable Unavailable WEHRMAN III, MCKAYLA WEST DONNIE, WEST DONNIE Unavailable Unavailable LISBETH SHIPMAN, RAMONITA, Unavailable Unavailable VENITA EPPERSON Unavailable Unavailable KRISTIAN TOWNSEND Unavailable Unavailable Brigida TOWNSEND, KRISTIAN, Unavailable Unavailable Brigida C Purpose Continuity of Care Document - 12-04-2007 through 2016 Problems Code Diagnosis DOS Provider Status 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 [id number] SPONDYLOSIS 07-05-2017 [place] W/O KRISTIAN MYELOPATH/R ,[facility] ADICULOPATH Y CERV RGN S80260 SPONDYLOSIS 07-05-2017 [place] W/Milton TOWNSEND MYELSAJI/Lashay DOSS,[facility] ADICULOPATH Y LUMB RGN L83137 RETIREMENT 07-05-2017 [place] CURRENT USE KRITSIAN OF OPIATE ,[facility] ANALGESIC D36000 OTHER LONG 06-15-2017 [facility] TERM [facility] CURRENT INC DRUG THERAPY E119 TYPE 2 06-02-2017 [facility] DIABETES PHYSICIANS MELLITUS GROUP WITHOUT COMPLICATIO NS E785 HYPERLIPIDE 06-02-2017 [facility] LESTER PHYSICIANS UNSPECIFIED GROUP I119 HYPERTENSIV 06-02-2017 [facility] E HEART PHYSICIANS DISEASE GROUP WITHOUT HEART FAILURE I2510 [place] 06-02-[address] [facility] [address] [facility] ARTERY W/O INC ANGINA PECTORIS I712 THORACIC 06-02-2017 [facility] AORTIC PHYSICIANS ANEURYSM GROUP WITHOUT RUPTURE I714 ABDOMINAL 06-02-2017 [facility] AORTIC PHYSICIANS ANEURYSM GROUP WITHOUT RUPTURE R079 CHEST PAIN 06-02-2017 [facility] UNSPECIFIED PHYSICIANS GROUP R9439 ABNORMAL 05-26-2017 [facility] RESULT OTH PHYSICIANS CARDIOVASCU GROUP LR FUNCTION STUDY H04036 ENCOUNTER 05-26-2017 [facility] FOR PHYSICIANS PREPROCEDUR GROUP AL CARIOVASCUL AR EXAM I10 ESSENTIAL 05-13-2017 [facility] PRIMARY PHYSICIANS HYPERTENSIO GROUP N R9431 ABNORMAL 05-13-2017 [facility] ELECTROCARD PHYSICIANS IOGRAM GROUP R63545 ENCOUNTER 05-13-2017 [facility] FOR OTHER [facility] PREPROCEDUR INC AL EXAMINATION R1011 RIGHT UPPER 05-03-2017 [facility] R935 ABN FIND DX 05-03-2017 [facility] IMAG OTH [facility] ABD REGIONS INC RETROPERITO NEUM D369 BENIGN 04-19-2017 [facility] NEOPLASM PHYSICIANS UNSPECIFIED GROUP SITE E32650 PERSONAL 04-19-2017 [facility] HISTORY OF PHYSICIANS COLONIC GROUP POLYPS K210 GASTRO-ESOP 04-09-2017 [facility] JENSEN PHYSICIANS, REFLUX PLLC DISEASE W/ ESOPHAGITIS K828 OTHER 04-09-2017 [facility] SPECIFIED PHYSICIANS, DISEASES OF PLLC GALLBLADDER K829 DISEASE OF 04-09-2017 [facility] UNSPECIFIED R109 UNSPECIFIED 04-09-2017 [facility] ABDOMINAL MEDICAL PAIN IMAGING ASS O92243 PERSONAL 04-09-2017 [facility] P DEPENDENCE N411 CHRONIC 04-05-2017 [facility] PROSTATITIS [facility] P N529 MALE 04-05-2017 [facility] P UNSPECIFIED K219 GASTRO-ESOP 04-02-2017 [facility] H REFLUX [facility] DISEASE INC WITHOUT ESOPHAGITIS M5116 INTERVERTEB 04-02-2017 [facility] GLORIA PHYSICIANS, D/O PLLC W/RADICULOP ATHY LUMB RGN R1031 RIGHT LOWER 04-02-2017 [facility] M5382 OTHER 03-23-2017 [place] SPECIFIED CHIROPRACTI DORSOPATHIE C CENTE S CERVICAL REGION M5386 OTHER 03-23-2017 [place] SPECIFIED CHIROPRACTI DORSOPATHIE C CENTE S LUMBAR REGION B94779 OTHER 03-04-2017 [place] CERVICAL JUANI TOWNSEND MD,PSC MID-CERV REG UNS LEVEL K5900 CONSTIPATIO 02-13-2017 [facility] N MEDICAL UNSPECIFIED IMAGING ASS R112 NAUSEA WITH 02-13-2017 [facility] VOMITING MEDICAL UNSPECIFIED IMAGING ASS J449 CHRONIC 01-13-2017 [facility] OBSTRUCTIVE [facility] PULMONARY [facility] P DISEASE UNS R0600 DYSPNEA 01-13-2017 [facility] UNSPECIFIED MEDICAL IMAGING ASS E039 HYPOTHYROID 11-11-2016 [facility] ISM [facility] UNSPECIFIED INC N401 BENIGN 10-26-2016 [facility] PROSTATIC [facility] P LW URINARY TRACT SX R350 FREQUENCY 10-26-2016 [facility] MICTURITION [facility] P B88082 UNSPECIFIED 10-11-2016 [facility] ALEM BLEPHARITIS LEFT LOWER EYELID J9811 ATELECTASIS 09-01-2016 [facility] R1013 EPIGASTRIC 09-01-2016 [facility] P R7989 OTHER SPEC 09-01-2016 [facility] ABNORMAL MEDICAL FINDINGS IMAGING ASS BLOOD CHEMISTRY M791 MYALGIA 08-25-2016 [place] TOWNSEND MD,PSC M5090 CERVICAL 08-16-2016 [facility] DISORDER INC UNS UNS CERVICAL REGION O05297 PAIN IN 08-10-2016 [facility] RIGHT MEDICAL SHOULDER IMAGING ASS M5032 OTH CERV 08-10-2016 [facility] DISC MEDICAL DEGENERATIO IMAGING ASS N MID-CERVICA L REGION M542 CERVICALGIA 08-10-2016 [facility] R51 HEADACHE 08-10-2016 [facility] J4845RU CONTUSION 08-10-2016 [facility] UNS PART PHYSICIANS, HEAD PLLC INITIAL ENCOUNTER Z0635SL UNSPECIFIED 08-10-2016 [facility] INJURY OF MEDICAL HEAD IMAGING ASS INITIAL ENCOUNTER T495JZU STRAIN 08-10-2016 [facility] MUSCLE FASC PHYSICIANS, & TENDON PLLC NECK LEVL INIT ENC I064MBO UNSPECIFIED 08-10-2016 [facility] INJURY OF MEDICAL NECK IMAGING ASS INITIAL ENCOUNTER W61649H UNSPECIFIED 08-10-2016 [facility] SPRAIN RT PHYSICIANS, SHOULDER PLLC JOINT INITIAL ENC A3095VI UNS INJURY 08-10-2016 [place] RT SHOULDER MEDICAL UPPER ARM IMAGING ASS INITIAL ENCNTR D126 BENIGN 07-29-2016 [facility] NEOPLASM OF [facility] COLON UNSPECIFIED K635 POLYP OF 07-29-2016 [facility] COLON PHYSICIANS GROUP Z09 ENC F/U 07-29-2016 [facility] EXAM AFTR ANESTH OF CMPL TX OTH THE BLUE THAN MALIG NEOPLSM Z1211 ENCOUNTER 07-29-2016 [facility] SCREENING PHYSICIANS MALIGNANT GROUP NEOPLASM OF COLON M4642 DISCITIS 05-14-2016 [facility] UNSPECIFIED PHYSICIANS CERVICAL GROUP REGION G8929 OTHER 04-23-2016 [facility] CHRONIC PHYSICIANS PAIN GROUP J40 BRONCHITIS 04-07-2016 [facility] NOT PHYSICIANS SPECIFIED GROUP ACUTE OR CHRONIC M5010 CERVICAL 03-29-2016 BOYDAISHWARYA PATTERSONX, DISC D/O , PSC W/RADICULOP ATHY UNS CERV RGN B351 TINEA 03-25-2016 [facility] UNGUIUM PODIATRY E1151 TYPE 2 DM 03-25-2016 [facility] W/DIAB PODIATRY PERIPH ANGIOPATHY W/O GANGRENE M2570 OSTEOPHYTE 03-25-2016 [facility] UNSPECIFIED PODIATRY JOINT M20979 PAIN IN 03-25-2016 [facility] LEFT TOES PODIATRY J0110 ACUTE 03-24-2016 [facility] FRONTAL PHYSICIANS SINUSITIS GROUP UNSPECIFIED U02059Y UNS OPEN 03-24-2016 [facility] WOUND UNS PHYSICIANS TOES GROUP W/DAMAGE NAIL INITIAL M5030 OT 02-23-2016 [facility] CERVICAL [facility] DISC INC DEGENERATIO N UNS CERV REGION M5412 RADICULOPAT 02-23-2016 BOYD DEAN HY CERVICAL , PSC REGION R200 ANESTHESIA 01-23-2016 [facility] OF SKIN MEDICAL IMAGING ASS Z8603 PERSONAL 01-23-2016 [facility] HISTORY MEDICAL NEOPLASM OF IMAGING ASS UNCERTAIN BEHAVIOR 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 J82333 UNSPECIFIED 01-14-2016 [facility] PTOSIS OF SERV RIGHT FOUNDATION EYELID H9191 UNSPECIFIED 01-14-2016 [facility] HEARING SERV LOSS RIGHT FOUNDATION EAR R69937 FACIAL 01-14-2016 [facility] WEAKNESS SERV FOUNDATION R9089 OT 01-14-2016 [place] [facility] ABNORMAL SERV FIND ON DX FOUNDATION IMAGING CNTRL NERV SYS F14441 PERSONAL 01-14-2016 [facility] HISTORY 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 UNSPECIFIED O68373 CONTACT 12-26-2015 SC[facility] ANG BLEPHAROCON JUNCTIVITIS RIGHT EYE M5136 OT 12-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 BURT MD, PSC RAL DISC DEGEN LUMBAR REGION R110 NAUSEA 12-03-2015 [facility] R140 ABDOMINAL 11-26-2015 [facility] DISTENSION MEDICAL GASEOUS IMAGING ASS B370 CANDIDAL 11-20-2015 [facility] STOMATITIS PHYSICIANS, [facility] E1121 TYPE 2 11-20-2015 [facility] DIABETES [facility] MELLITUS INC W/DIABETIC NEPHROPATHY J329 CHRONIC 11-13-2015 [facility] SINUSITIS PHYSICIANS UNSPECIFIED GROUP H5203 HYPERMETROP 09-08-2015 [facility] A[facility]M IA BILATERAL M797 FIBROMYALGI 08-29-2015 [facility] A [facility] INC 16406 DEGEN 07-28-2015 BOYD BUX, LUMBAR/LUMB , PSC OSACRAL INTERVERTEB RAL DISC 7244 THORACIC/GINO 07-28-2015 GABBY BURT MD, PSC NEURITIS/RA DICULITIS UNSPEC 7291 UNSPECIFIED 07-28-2015 BOYD DEAN, MYALGIA , PSC AND MYOSITIS V7109 OBSERVATION 07-23-2015 COMPREHEND OF OTHER INC SUSPECTED MENTAL CONDITION 06039 UNSPECIFIED 06-20-2015 [facility] ARTHROPATHY INC OTHER SPECIFIED SITES 6011 CHRONIC 06-03-2015 [facility] PROSTATITIS [facility] P 95032 DEGEN 05-06-2015 [facility] THORACIC/TH MEDICAL ORACOLUMBAR IMAGING ASS INTERVERTEB RAL DISC 7231 CERVICALGIA 05-06-2015 [facility] 7245 UNSPECIFIED 05-06-2015 [facility] BACKACHE MEDICAL IM[facility]ING ASS 7840 HEADACHE 05-06-2015 [facility] 8470 NECK SPRAIN 05-06-2015 [facility] AND STRAIN PHYSICIANS, [facility] 93578 HEAD 05-06-2015 [facility] INJURY, PHYSICIANS, UNSPECIFIED PLLC 65803 HYPERTROPHY 04-29-2015 [facility] W/UR OBST & HOSPITAL P OTH LUTS 45268 URINARY 04-29-2015 [facility] P 7224 DEGENERATIO 04-28-2015 MADAR BUX N OF CERVICAL INTERVERTEB RAL DISC 7234 BRACHIAL 04-28-2015 FREDY DEAN NEURITIS OR RADICULITIS NOS 70995 DIAB W/O 03-04-2015 [facility] COMP TYPE LAR II/UNS NOT CONSULTANTS STATED O UNCNTRL 2724 OTHER AND 03-04-2015 [facility] UNSPECIFIED [facility] INC HYPERLIPIDE LESTER 4019 UNSPECIFIED 03-04-[address] [facility] [address] [facility] HYPERTENSIO INC N 18527 UNSPEC HTN 03-04-2015 [facility] HEART LAR DISEASE CONSULTANTS WITHOUT O HEART FAIL 88243 COR 03-04-[address] [address] UNSPEC INC TYPE VESSEL [place] T 71387 OTHER 02-26-2015 [place] DYSPNEA AND MEDICAL [place] [address] CHEST PAIN 02-26-2015 PR MEDICAL UNSPECIFIED SERV FOUNDATION 38734 OTHER CHEST 02-26-2015 [facility] PAIN PHYSICIANS GROUP 2449 UNSPECIFIED 01-09-2015 [facility] [place] [address] DISPLCMT 01-09-2015 [facility] LUMBAR PHYSICIANS INTERVERT GROUP DISC W/O MYELOPATHY 73950 OTHER 01-09-2015 [facility] MALAISE AND PHYSICIANS FATIGUE GROUP 55118 DIAB W/O 12-28-2014 [facility] MENTION [facility] COMP TYPE INC II/UNS TYPE UNCNTRL 2768 HYPOPOTASSE 12-28-2014 [facility] P 3319 UNSPECIFIED 12-28-2014 [place] CEREBRAL MEDICAL DEGENERATIO IMAGING ASS N 7820 DISTURBANCE 12-28-2014 [facility] OF [facility] P 76156 PRECORDIAL 12-28-2014 [facility] PAIN AMBULANCE SERVICE 48845 VOMITING 12-28-2014 [facility] AMBULANCE SERVICE V140 PERSONAL 12-28-2014 [facility] HISTORY OF [facility] ALLERGY TO [facility] P PENICILLIN 4414 ABDOMINAL 11-14-2014 [facility] WITHOUT MEDICAL G MENTION OF RUPTURE 490 BRONCHITIS 10-30-2014 [facility] NOT PHYSICIANS SPECIFIED GROUP ACUTE OR CHRONIC 51167 UNSPECIFIED 05-07-2014 [facility] ART ORCHITIS AND EPIDIDYMITI S 47582 OTHER 04-16-2014 [facility] CHRONIC [facility] PAIN INC 496 CHRONIC 04-16-2014 [facility] AIRWAY [facility] OBSTRUCTION INC NEC 7242 LUMBAGO 04-16-2014 JAIDEN CAMILLA V1582 PERS HX 04-16-2014 [facility] TOBACCO USE [facility] PRESENTING INC HAZARDS HEALTH V5869 LONG-TERM 04-16-2014 [facility] (CURRENT) [facility] USE OF INC OTHER MEDICATIONS 61403 OTHER 04-02-2014 [facility] CONVULSIONS [facility] INC 8472 LUMBAR 04-02-2014 WEHRMAN III SPRAIN AND AREN STRAIN E9179 OTHER 04-02-2014 WEHRMAN III STRIKING AREN AGAINST W/WO SUBSEQUENT FALL 4139 OTHER AND 03-29-2014 [facility] UNSPECIFIED [facility] ANGINA INC PECTORIS 38140 ING ANDREW 03-29-2014 [facility] W/O MENTION BUBBA OBST/GANGRE N UNILAT/UNSP EC 5738 OTHER 03-29-2014 [facility] SPECIFIED BUBBA DISORDERS OF LIVER 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 24144 ABDOMINAL 03-29-2014 [facility] III PAIN OTHER AREN SPECIFIED SITE 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 42309 ACUTE 03-03-2014 [facility] GASTRITIS [facility] WITHOUT INC MENTION OF HEMORRHAGE 21719 UNS 03-03-2014 [facility] BRO GASTRITIS&G ASTRODUODIT IS W/O MENTION HEMORR 7213 LUMBOSACRAL 01-17-2014 [facility] TREVINO SPONDYLOSIS WITHOUT MYELOPATHY 7831 ABNORMAL 10-13-2013 [facility] WEIGHT GAIN [facility] INC 61780 DIARRHEA 10-13-2013 [facility] INC V0481 NEED 08-23-2013 NATHAL[facility] RAI PROPHYLACTI AREN C VACCINATION &INOCULATIO N FLU 3510 BELLS PALSY 07-24-2013 [facility] 7218 OTHER 07-24-2013 [facility] DISORDERS OF SPINE 53116 OTH 07-18-[address] [facility] [address] [facility] W/O INTRACT INC W/O STATUS MIGRAINOSUS 79994 OTHER 06-18-2013 [facility] CONDITIONS BUBBA OF BRAIN 7220 DISPLCMT 06-18-2013 [facility] CERV BUBBA INTERVERT DISC WITHOUT MYELOPATHY 7249 OTHER 06-18-2013 [facility] UNSPECIFIED BUBBA BACK DISORDER V571 OTHER 05-28-[address] [facility] [address] [facility] THERAPY INC 23909 UNSPECIFIED 03-06-2013 [facility] SH[facility] 83365 PAIN IN 03-06-[address] [facility], EMERGENCY SHOULDER SERVICES REGION 7295 PAIN IN 03-06-2013 [facility] SOFT BUBBA TISSUES OF LIMB 93740 OTHER 03-06-2013 [facility] NONSPECIFIC BUBBA ABNORMAL FINDING OF LUNG FIELD 44941 MICROSCOPIC 01-26-2013 [facility] RAI HEMATURIA AREN 8460 SPRAIN AND 01-26-2013 [facility] RAI STRAIN OF AREN LUMBOSACRAL 13882 OTHER 01-25-2013 [facility] DISEASES OF BUBBA SPLEEN 4411 THORACIC 01-25-2013 [facility] ANEURYSM, BUBBA RUPTURED 5589 OTH&UNSPEC 01-25-2013 [facility] NONINFECTIO [facility] P GASTROENTER ITIS&COLITI S 33802 HYPERTROPHY 01-25-2013 [facility] PROSTATE BUBBA W/O UR OBST & OTH LUTS 6019 UNSPECIFIED 12-30-2012 [facility] PROSTATITIS INC 7823 EDEMA 12-30-2012 [facility] INC 08115 UNSPECIFIED 12-29-2012 NATHALY RAI AREN CONSTIPATIO N 27843 ABDOMINAL 12-15-2012 [facility] P 4400 ATHEROSCLER 12-14-2012 [facility] OSIS OF BUBBA AORTA 10488 ABDOMINAL 12-14-2012 [facility] CHARLEY PAIN, UNSPECIFIED SITE 83399 HEMATURIA 08-29-2012 [facility] UNSPECIFIED [facility]ICAL IMAGING ASS 15433 OTHER 08-21-2012 [facility] SPECIFIED MEDICAL DISORDERS IMAGING ASS OF BLADDER 53226 ABDOMINAL 08-08-2012 [facility] PAIN RIGHT BUBBA LOWER QUADRANT 4419 AORTIC 08-01-2012 JAMA ANTONY ANEUR UNSPEC SITE WITHOUT MENTION RUPTURE 7881 DYSURIA 07-24-2012 [facility] ANTONY 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 71973 VITREOUS 06-14-2012 NICK DEGENERATIO JAM N 72564 UNSPECIFIED 04-04-2012 KANE FERRARA BLEPHAROCON JUNCTIVITIS 16253 ESOPHAGEAL 04-04-2012 [facility] REFLUX 5533 DIAPHRAGMAT 04-04-2012 [facility] ANDREW W/O MENTION OBSTRUCTION /GANGREN 95957 OTHER LATE 03-25-2012 [facility] EFFECTS OF CEREBROVASC ULAR DISEASE V711 OBSERVATION 03-24-2012 [facility] FOR MEDICAL SUSPECTED IMAGING ASS MALIGNANT NEOPLASM 436 ACUTE BUT 02-28-2012 NATHALY RAI ILL-DEFINED AREN CEREBROVASC ULAR DISEASE 96444 UNS 12-22-2011 [facility] MALIGNANT NEOPLASM EYELID INCLUDING CANTHUS 12745 BASAL CELL 12-22-2011 [place] CARCIN[facility] ANESTHESIA OF EYELID ASSOC L INCLUDING CANTHUS 85662 OTHER 12-22-2011 [facility] CHRONIC DERMATITIS DUE TO SOLAR RADIATION 54988 OTHER 11-28-2011 [facility] SPECIFIED BUBBA ACQUIRED DEFORMITY OF HEAD 4660 ACUTE 10-11-2011 [facility] RAI BRONCHITIS AREN 7862 COUGH 10-11-2011 [facility] 2392 NEOPLASMS 10-01-2011 [facility] UNSPEC NATURE BONE SOFT TISSUE&SKIN 7226 DEGENERATIO 09-21-2011 [place] [place] INTERVERTEB INTERNAL RAL DISC MED SITE UNSPEC 35622 BLEPHARITIS 09-07-2011 [facility] , UNSPECIFIED 3670 HYPERMETROP 08-20-2011 [facility] [place] VISION 93936 ABDOMINAL 07-27-2011 NEW PAIN RIGHT [facility] QUADRANT 7210 CERVICAL 07-22-2011 NEW SPONDYLOSIS [place] WITHOUT CLINIC PSC MYELOPATHY 2250 BENIGN 06-15-2011 [facility] NEOPLASM OF [facility] [place] [facility] PSC 50936 SHORTNESS 06-03-2011 [facility] 1101 DERMATOPHYT 05-18-2011 [facility] [place] INTERNAL MED 7822 LOCALIZED 05-18-2011 [facility] SUPERFICIAL [place] SWELLING INTERNAL MASS OR MED LUMP 7906 OTHER 04-13-2011 [facility] ABNORMAL [place] BLOOD INTERNAL CHEMISTRY MED 60796 DYSPHAGIA 02-25-2011 [facility] 7871 HEARTBURN 02-16-2011 [place] PSC 45946 ABDOMINAL 02-16-2011 C CELESTINO [place], DEEP EPIGASTRIC PSC 1919 MALIGNANT 02-03-2011 [facility] NEOPLASM OF [place] BRAIN INTERNAL UNSPECIFIED MED SITE 27755 DYSPHAGIA 02-03-2011 [facility] DUE TO [place] CEREBROVASC INTERNAL ULAR MED DISEASE 1104 DERMATOPHYT 12-14-2010 [facility] OSIS OF [place] FOOT INTERNAL MED 9953 ALLERGY 12-12-2010 [facility] UNSPECIFIED [place] NOT INTERNAL ELSEWHERE MED CLASSIFIED 7821 RASH AND 12-09-2010 [facility] OTHER [place] NONSPECIFIC INTERNAL SKIN MED ERUPTION 7079 CHRONIC 12-07-2010 [facility] ULCER OF [place] UNSPECIFIED INTERNAL SITE MEDI 3688 OTHER 09-21-2010 [facility] DISTURBANCE S 48912 MUSCLE 09-21-2010 [facility] D) 23063 FACIAL 09-21-2010 [facility] 94825 NAUSEA WITH 07-27-2010 [facility] 26183 OTHER AND 07-25-2010 [facility] UNSPECIFIED [place] INTERNAL CONJUNCTIVI MED TIS 5409 ACUTE 05-05-2010 [facility] WITHOUT HOSPITAL MENTION PROF SERV PERITONITIS 541 APPENDICITI 05-05-2010 [facility] 7804 DIZZINESS 05-05-2010 [facility] V4589 OTHER 05-05-2010 [facility] OTHER PROF SERV 63528 PAINFUL 11-05-2009 [facility] RESPIRATION [facility] MED [id number] OTHER SPEC 09-03-2009 [facility] MENTION HEMORRHAGE [id number] DUODENITIS 09-03-2009 [facility] MENTION OF INC HEMORRHAGE [id number] NAUSEA 09-03-2009 PATHOLOGY & ALONE CYTOLOGY LAB 08591 UNSPECIFIED 05-07-2009 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 CHRONIC 11-13-2008 [facility] SYNDROME INTERNAL MED 4659 ACUTE URIS 10-30-2008 [facility] UNSPECIFIED INTERNAL SITE MED [id number] ABDOMINAL 07-17-2008 [facility] PAIN, LEFT CLINIC UPPER LABORATORY QUADRANT [id number] DISORDER OF 06-25-2008 [facility] CARTILAGE INC UNSPECIFIED [id number] PRESBYOPIA 04-11-2008 [facility] 7802 SYNCOPE AND 03-29-2008 [facility] 47208 TRANSIENT 03-28-2008 [facility] 4011 ESSENTIAL 03-14-2008 [facility] [place] [facility] PSC 85027 ANNIE HTN 02-27-2008 [facility] [place] DISE[facility]IN[facility] 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 2409 GOITER, 02-20-2008 [facility] 7931 NONSPEC 02-20-2008 [facility] LUNG FIELD 3569 UNSPEC 02-16-2008 ZEE, HEREDIT&IDI [facility] OPATHIC PERIPHERAL NEUROPATHY 7812 ABNORMALITY 01-23-2008 YAYO, OF GAIT LISBETH 4619 ACUTE 12-14-2007 [facility] [place] [facility] UNSPECIFIED Medications Na ND Rx Da Fi Fi Am Da Di Ph RX Ph St me C No te ll ll ou ys ag ar # ys at rm s nt no ma ic us Or Da si cy ia de te s n re d CL 00 08 09 60 30 00 EA Ac ON 22 -2 -[address] ti AZ 83 5- 9- 00 00 SI ve EP 00 20 20 49 DE AM 35 17 17 57 0 34 PH 0. AR 5 MA MG CY TA OF BL CY ET NT HI AN A IN C PA 65 08 09 30 30 00 EA Ac NT 86 -2 -[address] ti OP 20 4- 9- 00 00 SI ve RA 56 20 20 49 DE ZO 09 17 17 91 LE 0 23 PH AR SO MA D CY DR OF 40 CY NT MG HI AN TA A B IN C FU 00 08 09 30 30 00 EA Ac RO 37 -2 -[address] ti SE 80 4- 9- 00 00 SI ve NV 21 20 20 49 DE DE 61 17 17 91 0 24 PH 40 AR MA MG CY TA OF BL CY ET NT HI AN A IN C ME 23 08 09 30 30 00 EA Ac TF 15 -2 -[address] ti OR 50 4- 9- 00 00 SI ve NV 10 20 20 49 DE N 21 17 17 91 HC 0 25 PH L AR 50 MA 0 CY MG OF TA CY BL NT ET HI AN A IN C LE 00 08 09 30 30 00 EA Ac VO 37 [...] HI AN A IN C LO 16 08 09 30 30 00 EA Ac SA 71 -1 -[address] ti RT 40 4- 5- 00 00 SI ve AN 22 20 20 49 DE -H [address] 1 86 PH Z AR 10 MA 0- CY 12 .5 OF CY MG NT HI TA AN B A IN C HY 00 08 09 [address] 40 -1 -[address] ti OC 60 0- 5- 00 00 SI ve OD 12 20 20 0 49 DE ON 50 17 17 74 -A 5 49 PH CE AR TA MA NV CY NO PH OF N CY 10 NT -3 HI 25 AN A IN C EF 00 08 09 [...] 50 4- 5- 00 00 SI ve NV 10 20 20 49 DE N 21 17 17 54 HC 0 03 PH L AR 50 MA 0 CY MG OF TA CY BL NT ET HI AN A IN C FU 00 07 08 30 30 00 EA Ac RO 37 -2 -[address] ti SE 80 4- 5- 00 00 SI ve NV 21 20 20 49 DE DE 61 [...] HI R AN A IN C HY 00 07 08 [address] 40 -1 -[address] ti OC 60 2- 8- 00 00 SI ve OD 12 20 20 0 49 DE ON 50 17 17 40 -A 5 66 PH CE AR TA MA NV CY NO PH OF N CY 10 [...] .[address] ti VA 52 2- - [address] 58 20 20 49 DE AT 00 17 17 10 IN 9 75 PH AR 40 MA CY MG OF TA CY BL NT ET HI AN A IN C ME 23 06 07 30 30 00 EA Ac TF 15 -2 -[address] ti OR 50 2- 8- 00 00 SI ve NV 10 20 20 49 DE N 21 17 17 21 HC 0 61 PH L AR 50 MA 0 CY MG OF TA CY BL NT ET HI AN A IN C CL 00 06 07 60 30 00 EA Ac ON 18 -2 -[address] ti AZ 50 6- 8- 00 00 SI ve EP 06 20 20 48 DE AM 30 17 17 45 5 26 PH 0. AR 5 MA MG CY TA OF BL CY ET NT HI AN A IN C AL 60 07 30 30 00 EA Ac FU 50 -2 -[address] ti ZO 52 7- 8- 00 00 SI ve SI 85 20 20 47 DE N 00 17 17 18 HC 1 04 PH L AR ER MA CY 10 OF MG CY NT TA HI BL AN ET A IN C PA 65 05 04 30 30 00 EA Ac NT 86 -1 -[address] ti OP 20 6- - 00 00 SI ve RA 56 20 20 49 DE ZO 09 17 17 15 LE 0 64 PH AR SO MA D CY DR OF 40 CY NT MG HI AN TA A B IN C LO 16 06 07 23 23 00 EA Ac SA 71 -1 -[address] ti RT 40 9- - 00 00 SI ve AN 22 20 20 48 DE -H [address] 1 90 PH Z AR 10 MA 0- CY 12 .5 OF CY MG NT HI TA AN B A IN C NI 43 06 07 25 25 00 EA Ac TR 59 -2 -[address] ti OG 80 1- - 00 00 SI ve LY 43 20 [...] 80 6- 1- 00 00 SI ve NV 21 20 20 49 DE DE 61 [...] 5 80 PH CE AR TA MA NV CY NO PH OF N CY 10 NT -3 HI 25 AN A IN C AT 60 06 07 30 30 00 EA Ac OR 50 -1 -[address] ti VA 52 3- 4- [address] 58 20 20 49 DE AT 00 17 17 10 IN 9 75 PH AR 40 MA CY MG OF TA CY BL NT ET HI AN A IN C SI 16 06 [...] 50 2- 3- 00 00 SI ve NV 10 20 20 48 DE N 21 [...] AN B A IN C AL 60 04 02 30 30 00 EA Ac FU 50 -2 -[address] ti ZO 52 3- 3- 00 00 SI ve SI 85 20 20 47 DE N 00 17 17 18 HC 1 04 PH L AR ER MA CY 10 OF MG CY NT TA HI BL AN ET A IN C CL 00 04 02 60 30 00 EA Ac ON 18 -2 -[address] ti AZ 50 1- 3- 00 00 SI ve EP 06 20 20 48 DE AM 30 17 17 45 5 26 PH 0. AR 5 MA MG CY TA OF BL CY ET NT HI AN A IN C ON 65 05 06 30 8 00 EA Ac DA 86 -1 -[address] ti NS 20 4- 6- 00 00 SI ve ET 18 20 20 48 DE RO 73 17 17 74 N 0 59 PH HC AR L MA 4 CY MG OF TA CY BL NT ET HI AN A IN C PA 65 04 02 30 30 00 EA Ac NT 86 -1 -[address] ti OP 20 4- 6- 00 00 SI ve RA 56 20 20 48 DE ZO 09 17 17 74 LE 0 60 PH AR SO MA D CY DR OF 40 CY NT MG HI AN TA A B IN C HY 00 04 02 [address] 40 -1 -[address] ti OC 60 2- 6- 00 00 SI ve OD 12 20 20 0 48 DE ON 50 17 17 72 -A 5 38 PH CE AR TA MA NV CY NO PH OF N CY 10 NT -3 HI 25 AN A IN C FU 00 04 02 30 30 00 EA Ac RO 37 -0 -[address] ti SE 80 9- 9- 00 00 SI ve NV 21 20 20 48 DE DE 61 17 17 68 0 20 PH 40 AR MA MG CY TA OF BL CY ET NT HI AN A IN C SI 16 04 02 30 30 00 EA Ac MV 71 -0 -[address] ti 40 9- 9- 00 00 SI ve TA 68 20 20 48 DE TI 40 17 17 68 N 3 27 PH 40 AR MA MG CY TA OF BL CY ET NT HI AN A IN C LE 00 05 06 30 30 00 EA Ac VO 37 -0 -[address] ti TH 81 9- 9- 00 SI ve YR 80 20 20 48 DE OX 57 17 17 68 IN 7 28 PH E AR 75 MA CY MC G OF TA CY BL NT ET HI AN A IN C ME 00 04 05 30 30 00 EA Ac TF 09 -2 -[address] ti OR 31 1- 6- 00 SI ve NV 04 20 20 48 DE N 80 17 17 44 HC 1 51 PH L AR 50 MA 0 CY MG OF TA CY BL NT ET HI AN A IN C OM 62 04 05 30 30 00 EA Ac EP 17 -2 -[address] ti RA 50 1- 6- 00 SI ve ZO 13 20 20 48 DE LE 64 17 [address] AR MA 40 CY MG OF CY CA NT PS HI UL AN E A IN C CL 00 04 60 30 00 EA Ac ON 18 -2 -[address] ti AZ 50 1- 6 00 SI ve EP 06 20 20 48 DE AM 30 17 17 45 5 26 PH 0. AR 5 MA MG CY TA OF BL CY ET NT HI AN A IN C PO 51 04 05 52 30 00 EA Ac LY 99 -2 -[address] ti ET 10 - 6 00 SI ve HY 45 20 20 0 48 DE LE 75 17 17 45 NE 7 27 PH AR GL MA YC CY OL OF 33 CY 50 NT HI PO AN WD A IN C LO 16 04 30 30 00 EA Ac SA 71 -2 -[address] ti RT 40 3- 6- 00 00 SI ve AN 22 20 20 47 DE -H [address] 1 12 PH Z AR 10 MA 0- CY 12 .5 OF CY MG NT HI TA AN B A IN C AL 60 04 30 30 00 EA Ac FU 50 -1 -[address] ti ZO 52 9- 9 00 SI ve SI 85 20 20 47 DE N 00 17 17 18 HC 1 04 PH L AR ER MA CY 10 OF MG CY NT TA HI BL AN ET A IN C SI 16 04 05 30 30 00 EA Ac MV 71 -1 -[address] ti 40 0- 2- 00 00 SI ve TA 68 20 20 48 DE TI 40 17 17 30 N 3 79 PH 40 AR MA MG CY TA OF BL CY ET NT HI AN A IN C LE 00 04 05 [...] 40 0- 2- 00 00 SI ve NV 62 20 20 48 DE DE 51 [...] 5 38 PH CE AR TA MA NV CY NO PH OF N CY 10 NT -3 HI 25 AN A IN C AL 60 03 [...] AN ET A IN C CL 00 03 04 [...] 31 0- 1- 00 00 SI ve NV 04 20 20 48 DE N 80 [...] ve LO 37 20 20 48 DE DE 40 17 17 05 AM 1 71 PH AR 10 MA CY MG OF TA CY BL NT ET HI AN A IN C FU 63 03 04 30 30 00 EA Ac RO 30 -0 -[address] ti SE 40 9- 4- 00 00 SI ve NV 62 20 20 47 DE DE 51 [...] HI AN A IN C HY 00 03 04 [address] 40 -1 -[address] ti OC 60 3- 4- 00 00 SI ve OD 12 20 20 0 47 DE ON 50 17 17 94 -A 5 33 PH CE AR TA MA NV CY NO PH OF N CY 10 NT -3 HI 25 AN A IN C SI 16 03 04 30 30 00 EA Ac MV 71 -0 -[address] ti 40 8- 7- 00 00 SI ve TA 68 20 20 47 DE TI 40 17 17 89 N 3 60 PH 40 AR MA MG CY TA OF BL CY ET NT HI AN A IN C LE 00 03 04 30 30 00 EA Ac VO 37 -0 -[address] ti TH 81 8- 7- 00 00 SI ve YR 80 20 20 47 DE OX 57 17 17 89 IN 7 59 PH E AR 75 MA CY MC G OF TA CY BL NT ET HI AN A IN C VE 00 02 03 18 18 00 EA Ac NT 17 -2 -[address] ti OL 30 7- 1- 00 00 SI ve IN 68 20 20 47 DE 22 17 17 76 HF 0 88 PH A AR 90 MA CY MC G OF IN CY NG NT LE HI R AN A IN C CL 00 02 03 60 30 00 EA Ac ON 18 -1 -[address] ti AZ 50 7- 4- 00 00 SI ve EP 06 20 20 47 DE AM 30 17 17 66 5 01 PH 0. AR 5 MA MG CY TA OF BL CY ET NT HI AN A IN C ME 23 02 03 30 30 00 EA Ac TF 15 -1 -[address] ti OR 50 7- 4- 00 00 SI ve NV 10 20 20 47 DE N 21 17 17 66 HC 0 02 PH L AR 50 MA 0 CY MG OF TA CY BL NT ET HI AN A IN C ES 65 02 03 30 30 00 EA Ac CI 86 -1 -[address] ti TA 20 7- 4- 00 SI ve LO 37 20 20 47 DE DE 40 17 17 66 AM 1 03 PH AR 10 MA CY MG OF TA CY BL NT ET HI AN A IN C LO 16 02 03 30 30 00 EA Ac SA 71 -2 -[address] ti RT 40 1- 4- 00 00 SI ve AN 22 20 20 47 DE -H [address] 1 12 PH Z AR 10 MA 0- CY 12 .5 OF CY MG NT HI TA AN B A IN C AL 60 02 03 [...] AN E A IN C HY 00 02 03 [address] 40 -1 -[address] ti OC 60 1- 7- 00 00 SI ve OD 12 20 20 0 47 DE ON 50 17 17 57 -A 5 63 PH CE AR TA MA NV CY NO PH OF N CY 10 NT -3 HI 25 AN A IN C LE 00 02 03 [...] 40 0- 3- 00 00 SI ve NV 62 20 20 47 DE DE 51 [...] 50 6- 7- 00 00 SI ve NV 10 20 20 47 DE N 21 [...] 5 53 PH CE AR TA MA NV CY NO PH OF N CY 10 NT -3 HI 25 AN A IN C AL 60 01 02 30 30 00 EA Ac FU 50 -0 -[address] ti ZO 52 9- 0- 00 00 SI ve SI 85 20 20 47 DE N 00 17 17 18 HC 1 04 PH L AR ER MA CY 10 OF MG CY NT TA HI BL AN ET A IN C SI 16 01 02 30 30 00 EA Ac MV 71 -0 -[address] ti 40 9- 0- 00 00 SI ve TA 68 20 20 47 DE TI 40 17 17 16 N 3 44 PH 40 AR MA MG CY TA OF BL CY ET NT HI AN A IN C VE 00 01 02 18 30 00 EA Ac NT 17 -0 -[address] ti OL 30 9- 0- 00 00 SI ve IN 68 20 20 43 DE 22 17 17 96 HF 0 66 PH A AR 90 MA CY MC G OF IN CY NG NT LE HI R AN A IN C CL 00 12 [...] 40 6- 7- 00 00 SI ve NV 62 20 20 47 DE DE 51 [...] 50 5- 0- 00 00 SI ve NV 10 20 20 46 DE N 21 16 17 90 HC 0 54 PH L AR 50 MA 0 CY MG OF TA CY BL NT ET HI AN A IN C LO 16 12 01 30 30 00 EA Ac SA 71 -2 -[address] ti RT 40 1- 0- 00 00 SI ve AN 22 20 20 46 DE -H [address] 1 32 PH Z AR 10 MA 0- CY 12 .5 OF CY MG NT HI TA AN B A IN C SI 16 12 01 30 30 00 EA Ac MV 71 [...] 5 68 PH CE AR TA MA NV CY NO PH OF N CY 10 [...] RT 40 9- 9- 00 SI 16 NV ve AN 22 20 20 0 DE [...] PE 40 4- 4- 00 SI 87 NV ve NT 66 20 20 0 DE E IN 20 13 13 JR 1 PH 30 AR WI 0 MA LL MG CY IA M CA OF F PS UL CY E NT HI AN A SI 16 11 11 0 30 30 EA 33 MC Ac MV 71 -1 -[address] 61 KE ti 40 2- 2- 00 SI 39 NV ve TA 68 20 20 0 DE E TI 40 13 13 JR N 3 PH 40 AR WI MA LL MG CY IA M TA OF F BL ET CY NT HI AN A LO 16 06 11 4 15 15 EA 31 MC Ac SA 71 -1 -[address] 99 KE ti RT 40 0- 2- 00 SI 99 NV ve AN 22 20 20 0 DE E -H [address] 1 PH Z AR [place] 10 MA LL 0- CY IA 12 M .5 OF F MG CY NT TA HI B AN A OM 62 09 11 2 30 30 EA 32 Ac EP 17 -0 -[address] 86 KE ti RA 50 4- 1- 00 SI 09 NV ve ZO 13 20 20 0 DE E LE 63 13 [address] AR WI MA LL 40 CY IA M MG OF F CA CY PS NT UL HI E AN A ME 00 08 11 3 30 30 EA 32 Ac TF 09 -0 -[address] 52 KE ti OR 31 2- 9- 00 SI 59 NV ve NV 04 20 20 0 DE E N 81 13 13 JR HC 0 PH L AR WI 50 MA LL 0 CY IA MG M OF F TA BL CY ET NT HI AN A FU 63 08 11 2 30 30 EA 32 Ac RO 30 -2 -[address] 80 KE ti SE 40 9- 5- 00 SI 32 NV ve NV 62 20 20 0 DE E DE 51 13 13 JR 0 PH 40 AR WI MA LL MG CY IA M TA OF F BL ET CY NT HI AN A CL 00 10 11 0 45 15 EA 33 Ac ON 22 -1 -[address] 31 KE ti AZ 83 4- 2- 00 SI 89 NV ve EP 00 20 20 0 DE E AM 45 13 13 JR 1 0 PH AR WI MG MA LL CY IA TA M BL OF F ET CY NT HI AN A LE 00 07 11 3 30 30 EA 32 Ac VO 37 -2 -[address] 46 KE ti TH 81 6- 2- 00 SI 48 NV ve YR 80 20 20 0 DE E OX 50 13 13 JR IN 1 PH E AR [place] 75 MA LL CY IA MC M G OF F TA BL CY ET NT HI AN A LO 16 06 10 4 15 15 EA 31 MC Ac SA 71 -1 -[address] 99 KE ti RT 40 0- 5- 00 SI 99 NV ve AN 22 20 20 0 DE [...] AZ 83 4- 4- 00 SI 89 NV ve EP 00 20 20 0 DE E AM 45 13 13 JR 1 0 PH AR WI MG MA LL CY IA TA M BL OF F ET CY NT HI AN A SI 16 08 10 2 30 30 EA 32 MC Ac MV 71 -0 -[address] 57 KE ti 40 7- 2- 00 SI 30 NV ve TA 68 20 20 0 DE E TI 40 13 13 JR N 3 PH 40 AR WI MA LL MG CY IA M TA OF F BL ET CY NT HI AN A OM 62 09 10 2 30 30 EA 32 MC Ac EP 17 -0 -[address] 86 KE ti RA 50 4- 9- 00 SI 09 NV ve ZO 13 20 20 0 DE E LE 63 [address] AR [place] MA LL 40 CY IA M MG OF F CA CY PS NT UL HI E AN A ME 00 08 10 3 30 30 EA 32 MC Ac TF 09 -0 -[address] 52 KE ti OR 31 2- 7- 00 SI 59 NV ve NV 04 20 20 0 DE E N 81 13 13 JR HC 0 PH L AR WI 50 MA LL 0 CY IA MG M OF F TA BL CY ET NT HI AN A FU 63 08 10 2 30 30 EA 32 MC Ac RO 30 -2 -[address] 80 KE ti SE 40 9- 3- 00 SI 32 NV ve NV 62 20 20 0 DE E DE 51 13 13 JR 0 PH 40 AR WI MA LL MG CY IA M TA OF F BL ET CY NT HI AN A EX 00 08 10 2 30 30 EA 23 MC Ac FO 07 -1 -[address] 73 KE ti RG 80 9- 9- 00 SI 45 NV ve E 48 20 20 DE E 10 91 11 11 JR -1 5 PH 60 AR WI MA LL MG CY IA M TA OF F BL ET CY NT HI AN A ME 00 08 10 1 30 30 EA 23 BE Ac TF 09 -2 -[address] 77 SS ti OR 31 3- 8- 00 SI 83 ON ve NV 04 20 20 DE N [address] HC 0 PH EP L AR HE 50 MA N 0 CY A MG OF TA BL CY ET NT HI AN A SI 16 08 [...] AC 40 4- 4- 00 SI 01 NV ve ET 70 20 20 DE E AM 10 11 11 JR ID 1 PH E AR [place] 10 MA LL % CY IA EY M E OF F DR OP CY S NT HI AN A NE 00 09 10 2 30 30 EA 23 MC Ac XI 18 -0 -[address] 98 KE ti UM 65 6- 0- 00 SI 46 NV ve 04 [address] 03 11 11 JR 1 PH 40 AR WI MA LL MG CY IA M CA OF F PS UL CY E NT HI AN A FU 63 09 10 3 30 30 EA 24 MC Ac RO 30 -1 -[address] 04 KE ti SE 40 2- 0- 00 SI 35 NV ve NV 62 20 20 DE E DE 51 [...] ti 10 7- 7- 00 SI 81 NV ve 54 20 20 0 DE E [...] RG 80 9- 4- 00 SI 45 NV ve E 48 20 20 DE E 10 91 11 11 JR -1 5 PH 60 AR WI MA LL MG CY IA M TA OF F BL ET CY NT HI AN A SI 16 05 09 3 30 30 EA 22 MC Ac MV 71 -3 -[address] 74 KE ti 40 1- 4- 00 SI 35 NV ve TA 68 20 20 DE E [...] 2- 2- 00 SI 16 ON ve NV 62 20 20 DE DE 51 11 [...] OF CY NT HI AN A 00 05 09 2 30 30 EA 22 BE Ac 37 -0 -[address] 36 SS ti 81 3- 0- 00 SI 81 ON ve 08 20 20 DE [address] 1 PH EP AR HE MA N CY A OF CY NT HI AN A 00 09 09 0 12 30 EA 23 MC Ac 59 -0 -[address] 99 KE ti 10 7- 7- 00 SI 45 NV ve 54 20 20 0 DE E 00 11 11 JR 1 PH AR WI MA LL CY IA M OF F CY NT HI AN A CL 00 09 09 0 90 30 EA 23 MC Ac ON 09 -0 -[address] 98 KE ti AZ 30 6- 6- 00 SI 47 NV ve EP 83 20 20 DE E AM 20 11 11 JR 1 PH 0. AR [place] 5 MA LL MG CY IA M TA OF F BL ET CY NT HI AN A NE 00 08 08 2 30 30 EA 23 MC Ac XI 18 -3 -[address] 89 KE ti UM 65 1- 1- 00 SI 75 NV ve 04 [address] [...] 3- 3- 00 SI 83 ON ve NV 04 20 20 DE N 81 11 [...] RG 80 9- 9- 00 SI 45 NV ve E 48 20 20 DE E [...] 6- 6- 00 SI 13 ON ve NV 62 20 20 DE DE [address] 0 PH EP 40 AR HE MA N MG CY A TA OF BL ET CY NT HI AN A SI 16 05 08 3 30 30 EA 22 MC Ac MV 71 -3 -[address] 74 KE ti 40 1- 6- 00 SI 35 NV ve TA 68 20 20 DE E TI 40 11 11 JR N 3 PH 40 AR WI MA LL MG CY IA M TA OF F BL ET CY NT HI AN A CL 00 08 08 0 90 30 EA 23 MC Ac ON 09 -0 -[address] 54 KE ti AZ 30 5- 5- 00 SI 97 NV ve EP 83 20 20 DE E AM 20 11 11 JR 1 PH 0. AR [place] 5 MA LL MG CY IA M TA OF F BL ET CY NT HI AN A NE 00 05 08 2 30 30 EA 22 MC Ac XI 18 -2 -[address] 69 KE ti UM 65 5- 2- 00 SI 36 NV ve 04 [address] 03 11 11 JR 1 PH 40 AR WI MA LL MG CY IA M CA OF F PS UL CY E NT HI AN A ZE 66 06 08 3 30 30 EA 23 MC Ac TI 58 -2 -[address] 05 KE ti A 20 3- 2- 00 SI 21 NV ve 10 41 20 20 DE E 43 11 11 JR MG 1 PH AR WI TA MA LL BL CY IA ET M OF F CY NT HI AN A 00 05 07 [...] RG 80 1- 6- 00 SI 11 NV ve E 48 20 20 DE E 10 91 11 11 JR -1 5 PH 60 AR WI MA LL MG CY IA M TA OF F BL ET CY NT HI AN A ME 00 05 07 1 60 30 EA 22 BE Ac TF 09 -1 -[address] 56 SS ti OR 31 7- 1- 00 SI 55 ON ve NV 04 20 20 DE N 81 11 [...] AZ 30 5- 5- 00 SI 75 NV ve EP 83 20 20 DE E AM 20 11 11 JR 1 PH 0. AR [place] 5 MA LL MG CY IA M TA OF F BL ET CY NT HI AN A FU 63 05 07 2 30 30 EA 22 BE Ac RO 30 -0 -[address] 36 SS ti SE 40 3- 4- 00 SI 75 ON ve NV 62 20 20 DE DE [address] 0 PH EP 40 AR HE MA N MG CY A TA OF BL ET CY NT HI AN A SI 16 05 07 3 30 30 EA 22 MC Ac MV 71 -3 -[address] 74 KE ti 40 2- 00 SI 35 NV ve TA 68 20 20 DE E TI 40 11 11 JR N 3 PH 40 AR WI MA LL MG CY IA M TA OF F BL ET CY NT HI AN A NE 00 05 06 2 30 30 EA 22 MC Ac XI 18 -2 -[address] 69 KE ti UM 65 5- 5- 00 SI 36 NV ve 04 [address] 03 11 11 JR 1 PH 40 AR WI MA LL MG CY IA M CA OF F PS UL CY E NT HI AN A ZE 66 06 06 3 30 30 EA 23 MC Ac TI 58 -2 -[address] 05 KE ti A 20 3- 3- 00 SI 21 NV ve 10 41 20 20 DE E 43 11 11 JR MG 1 PH AR WI TA MA LL BL CY IA ET M OF F CY NT HI AN A GALLAGHER 53 06 06 0 20 10 EA 23 BE Ac LF 74 -2 -[address] 02 SS ti AM 60 SI 35 ON ve ET 27 20 20 DE HO [address] XA 5 PH EP ZO AR HE LE MA N -T CY A MP OF DS CY TA NT BL HI ET AN A MU 45 06 06 1 22 3 EA 23 BE Ac PI 80 -2 -[address] 02 SS ti RO 20 SI 36 ON ve CI 11 20 20 DE N [address] 2% 2 PH EP AR HE OI MA N NT CY A ME NT OF CY NT HI AN A EX 00 04 06 3 30 30 EA 22 MC Ac FO 07 -1 -[address] 06 KE ti RG 80 1- 5- 00 SI 11 NV ve E 48 20 20 DE E [...] AZ 30 7- 7- 00 SI 61 NV ve EP 83 20 20 DE E AM 20 11 11 JR 1 PH 0. AR [place] 5 MA LL MG CY IA M TA OF F BL ET CY NT HI AN A FU 63 05 06 2 30 30 EA 22 BE Ac RO 30 -0 -[address] 36 SS ti SE 40 3- 2- 00 SI 75 ON ve NV 62 20 20 DE DE [address] 0 PH EP 40 AR HE MA N MG CY A TA OF BL ET CY NT HI AN A SI 16 05 05 3 30 30 EA 22 MC Ac MV 71 -3 -[address] 74 KE ti 40 1- 1- 00 SI 35 NV ve TA 68 20 20 DE E TI 40 11 11 JR N 3 PH 40 AR WI MA LL MG CY IA M TA OF F BL ET CY NT HI AN A NE 00 05 05 2 30 30 EA 22 MC Ac XI 18 -2 -[address] 69 KE ti UM 65 5- 6- 00 SI 36 NV ve 04 [address] [...] 7- 7- 00 SI 55 ON ve NV 04 20 20 DE N [address] HC 0 PH EP L AR HE 50 MA N 0 CY A MG OF TA BL CY ET NT HI AN A EX 00 04 05 3 30 30 EA 22 MC Ac FO 07 -1 -[address] 06 KE ti RG 80 1- 6- 00 SI 11 NV ve E 48 20 20 DE E [...] A OF CY NT HI AN A LE [...] ET NT HI AN A CL 00 05 [...] 3- 3- 00 SI 75 ON ve NV 62 20 20 DE DE 51 11 [...] A OF CY NT HI AN A NE 00 02 04 2 30 30 EA 21 MC Ac XI 18 -2 -[address] 33 KE ti UM 65 1- 5- 00 SI 04 NV ve 04 [address] 03 11 11 JR 1 PH 40 AR WI MA LL MG CY IA M CA OF F PS UL CY E NT HI AN A SI 16 02 04 2 30 30 EA 21 MC Ac MV 71 -1 -[address] 26 KE ti 40 6- 5- 00 SI 51 NV ve TA 68 20 20 DE E TI 40 11 11 JR N 3 PH 40 AR WI MA LL MG CY IA M TA OF F BL ET CY NT HI AN A EX 00 04 04 3 30 30 EA 22 MC Ac FO 07 -1 -[address] 06 KE ti RG 80 1- SI 11 NV ve E 48 20 20 DE E 10 91 11 11 JR -1 5 PH 60 AR [place] MA LL MG CY IA M TA OF F BL ET CY NT HI AN A 00 04 04 0 12 30 EA 22 MC Ac 59 -1 -[address] 05 KE ti 10 0- 0- 00 SI 59 NV ve 54 20 20 0 DE E 00 11 11 JR 1 PH AR WI MA LL CY IA M OF F CY NT HI AN A CL 00 04 04 0 90 30 EA 22 MC Ac ON 09 -0 -[address] 01 KE ti AZ 30 6- 6 00 SI 40 NV ve EP 83 20 20 DE E AM 20 11 11 JR 1 PH 0. AR [place] 5 MA LL MG CY IA M TA OF F BL ET CY NT HI AN A HY 00 04 04 2 30 30 EA [address] 59 -0 -[address] 97 KE ti OC 10 4- 4- 00 SI 70 NV ve HL 34 20 20 DE E [...] DE TA RA 10 11 11 D NV 5 PH CA DE AR MP 5 MA BE CY LL MG K OF TA BL CY ET NT HI AN A NE 00 02 03 2 30 30 EA 21 MC Ac XI 18 -2 -[address] 33 KE ti UM 65 1- 2- 00 SI 04 NV ve 04 [address] 03 11 11 JR 1 PH 40 AR WI MA LL MG CY IA M CA OF F PS UL CY E NT HI AN A SI 16 02 03 2 30 30 EA 21 MC Ac MV 71 -1 -[address] 26 KE ti 40 6- 2- 00 SI 51 NV ve TA 68 20 20 DE E TI 40 11 11 JR N 3 PH 40 AR [place] MA LL MG CY IA M TA OF F BL ET CY NT HI AN A 00 03 03 [...] ST 24 KE ti RG 80 3 9 00 SI 32 NV ve E 48 20 20 DE E 10 91 10 11 JR -1 5 PH 60 AR WI MA LL MG CY IA M TA OF F BL ET CY NT HI AN A DE 00 01 03 2 20 5 EA 20 MC Ac OM 78 -1 -[address] 84 KE ti ET 11 7 9 SI 38 NV ve NG 83 20 20 DE E ZI 01 11 11 JR NE 0 PH AR WI 25 MA LL CY IA MG M OF F TA BL CY ET NT HI AN A CL 00 03 03 0 90 30 EA 21 MC Ac ON 09 -0 -[address] 58 KE ti AZ 30 7 7 SI 91 NV ve EP 83 20 20 DE E AM 20 11 11 JR 1 PH 0. AR [place] 5 MA LL MG CY IA M TA OF F BL ET CY NT HI AN A HY 00 12 03 2 30 30 EA [address] 59 -2 -[address] 58 KE ti OC 10 9- 4 SI 00 NV ve HL 34 20 20 DE E OR 70 10 11 JR OT 1 PH HI AR WI [place] MA LL ID CY IA E M 12 OF F .5 CY MG NT HI CP AN A LE 00 03 03 0 30 30 EA 21 BE Ac VO 37 -0 -[address] 53 SS ti TH 81 4 4 SI 81 ON ve YR 80 20 20 DE OX [address] IN 1 PH EP E AR HE 50 MA N CY A MC G OF TA BL CY ET NT HI AN A NE 00 02 02 2 30 30 EA 21 MC Ac XI 18 -2 -[address] 33 KE ti UM 65 SI 04 NV ve 04 [address] 03 11 11 JR 1 PH 40 AR [place] MA LL MG CY IA M CA OF F PS UL CY E NT HI AN A FL 00 01 02 1 7. 7 EA 20 MC Ac UC 17 -1 -[address] 81 KE ti ON 25 5- 6- 0 SI 97 NV ve AZ 41 20 20 DE E OL 14 11 11 JR E 6 PH 10 AR WI 0 MA LL MG CY IA M TA OF F BL ET CY NT HI AN A SI 16 02 02 2 30 30 EA 21 MC Ac MV 71 -1 -[address] 26 KE ti 40 6 6 00 SI 51 NV ve TA 68 20 20 DE E TI 40 11 11 JR N 3 PH 40 AR WI MA LL MG CY IA M TA OF F BL ET CY NT HI AN A [place] 00 01 02 1 [address] 16 -1 -[address] 84 KE ti AT 80 7- 5- 00 SI 39 NV ve IN 08 20 20 DE E -T 16 11 11 JR RI 0 PH AM AR WI CI MA LL NO CY IA LO M NE OF F CR CY EA NT M HI AN A 00 02 02 0 12 30 EA 21 Ac 59 -1 -[address] 20 KE ti 10 SI 16 NV ve 54 20 20 0 DE E 00 11 11 JR 1 PH AR WI MA LL CY IA M OF F CY NT HI AN A CL 00 12 02 2 90 30 EA 20 Ac ON 09 -0 -[address] 32 KE ti AZ 30 9 7- 00 SI 83 NV ve EP 83 20 20 DE E AM 20 10 11 JR 1 PH 0. AR [place] 5 MA LL MG CY IA M TA OF F BL ET CY NT HI AN A EX 00 12 02 3 30 30 EA 20 MC Ac FO 07 -0 -[address] 24 KE ti RG 80 3- 5- 00 SI 32 NV ve E 48 20 20 DE E 10 91 10 11 JR -1 5 PH 60 AR [place] MA LL MG CY IA M TA OF F BL ET CY NT HI AN A HY 00 12 01 2 30 30 EA [address] 59 -2 -[address] 58 KE ti OC 10 9- 0- 00 SI 00 NV ve HL 34 20 20 DE E [...] UM 65 8- 0- 00 SI 05 NV ve 04 [address] 03 10 11 JR 1 PH 40 AR [place] MA LL MG CY IA M CA OF F PS UL CY E NT HI AN A DE 00 01 01 2 20 5 EA 20 MC Ac OM 78 -1 -[address] 84 KE ti ET 11 7- 7- 00 SI 38 NV ve NG 83 20 20 DE E ZI 01 11 11 JR NE 0 PH AR WI 25 MA LL CY IA MG M OF F TA BL CY ET NT HI AN A [place] 00 01 01 1 60 4 EA [address] 16 -1 -[address] 84 KE ti AT 80 7- 7- 00 SI 39 NV ve IN 08 20 20 DE E -T 16 11 11 JR RI 0 PH AM AR WI CI MA LL NO CY IA LO M NE OF F CR CY EA NT M HI AN A FL 00 01 01 1 7. 7 EA 20 MC Ac UC 17 -1 -[address] 81 KE ti ON 25 5- 5- 0 SI 97 NV ve AZ 41 20 20 DE E OL 14 11 11 JR E 6 PH 10 AR WI 0 MA LL MG CY IA M TA OF F BL ET CY NT HI AN A 00 01 01 0 30 15 EA 20 MC Ac 14 -1 -[address] 81 KE ti 31 5- 5- 00 SI 98 NV ve 47 20 20 DE E 70 11 11 JR 5 PH AR WI MA LL CY IA M OF F CY NT HI AN A SI 16 12 01 1 30 30 EA 20 MC Ac MV 71 -1 -[address] 42 KE ti 40 6- 5- 00 SI 49 NV ve TA 68 20 20 DE E TI 40 10 11 JR N 3 PH 40 AR [place] MA LL MG CY IA M TA OF F BL ET CY NT HI AN A MU 00 01 01 0 22 4 EA 20 MC Ac PI 09 - -[address] 81 KE ti RO 31 4- 4- 00 SI 11 NV ve CI 01 20 20 DE E N 04 11 11 JR 2% 2 PH AR WI OI MA LL NT CY IA ME M NT OF F CY NT HI AN A CE 00 01 01 0 28 7 EA 20 BE Ac PH 09 - -[address] 77 SS ti AL 33 1- 1 SI 05 ON ve EX 14 20 20 DE IN [address] 5 PH EP 50 AR HE 0 MA N MG CY A CA OF PS UL CY E NT HI AN A GALLAGHER 53 01 01 0 20 10 EA 20 MC Ac LF 74 -1 -[address] 75 KE ti AM 60 0- 0- 00 SI 99 NV ve ET 27 20 20 DE E HO 20 11 11 JR XA 5 PH ZO AR WI LE MA LL -T CY IA MP M OF F DS CY TA NT BL HI ET AN A MU 00 01 01 0 22 4 EA 20 MC Ac PI 09 -[address] 76 KE ti RO 31 0- 0- 00 SI 00 NV ve CI 01 20 20 DE E N 04 11 11 JR 2% 2 PH AR WI OI MA LL NT CY IA ME M NT OF F CY NT HI AN A CL 00 12 01 2 90 30 EA 20 MC Ac ON 09 -0 -[address] 32 KE ti AZ 30 9- 8 00 SI 83 NV ve EP 83 20 20 DE E AM 20 10 11 JR 1 PH 0. AR WI 5 MA LL MG CY IA M TA OF F BL ET CY NT HI AN A EX 00 12 01 3 30 30 EA 20 MC Ac FO 07 -0 -[address] 24 KE ti RG 80 3- 4- 00 SI 32 NV ve E 48 20 20 DE E 10 91 10 11 JR -1 5 PH 60 AR [place] MA LL MG CY IA M TA OF F BL ET CY NT HI AN A HY 00 12 12 2 30 30 EA [address] 59 -2 -[address] 58 KE ti OC 10 9 SI 00 NV ve HL 34 20 20 DE E OR 70 10 10 JR OT 1 PH HI AR WI [place] MA LL ID CY IA E M 12 OF F .5 CY MG NT HI CP AN A LE 00 11 12 1 30 30 EA 20 BE Ac VO 37 -2 -[address] 16 SS ti TH 81 9 9 00 SI 83 ON ve YR 80 20 [...] UM 65 8- 0- 00 SI 05 NV ve 04 [address] 03 10 10 JR 1 PH 40 AR [place] MA LL MG CY IA M CA OF F PS UL CY E NT HI AN A SI 16 12 12 1 30 30 EA 20 MC Ac MV 71 -1 -[address] 42 KE ti 40 6 6 00 SI 49 NV ve TA 68 20 20 DE E TI 40 10 10 JR N 3 PH 40 AR [place] MA LL MG CY IA M TA OF F BL ET CY NT HI AN A CL 00 12 12 2 90 30 EA 20 MC Ac ON 09 -0 -[address] 32 KE ti AZ 30 SI 83 NV ve EP 83 20 20 DE E AM 20 10 10 JR 1 PH 0. [place] 5 MA LL MG CY IA M TA OF F BL ET CY NT HI AN A EX 00 12 12 3 30 30 EA 20 MC Ac FO 07 -0 -[address] 24 KE ti RG 80 3- 3 00 SI 32 NV ve E 48 20 20 DE E 10 91 10 10 JR -1 5 PH 60 AR [place] MA LL MG CY IA M TA OF F BL ET CY NT HI AN A HY 00 09 11 2 30 30 EA [address] 59 -2 -[address] 23 KE ti OC 10 SI 17 NV ve HL 34 20 20 DE E OR 70 10 10 JR OT 1 PH HI [place] MA LL ID CY IA E M 12 OF F .5 CY MG NT HI CP AN A LE 00 11 11 1 30 30 EA 20 BE Ac VO 37 -2 -[address] 16 SS ti TH 81 9 SI 83 ON ve YR 80 20 [...] UM 65 8- 0- 00 SI 05 NV ve 04 [address] 03 10 10 JR 1 PH 40 AR [place] MA LL MG CY IA M CA OF F PS UL CY E NT HI AN A SI 16 08 11 3 30 30 EA 18 MC Ac MV 71 -0 -[address] 64 KE ti 40 9- 5- 00 SI 89 NV ve TA 68 20 20 DE E TI 40 10 10 JR N 3 PH 40 AR [place] MA LL MG CY IA M TA OF F BL ET CY NT HI AN A CL 00 11 11 0 90 30 EA 19 MC Ac ON 09 -0 -[address] 88 KE ti AZ 30 8- 8- 00 SI 62 NV ve EP 83 20 20 DE E AM 20 10 10 JR 1 PH 0. [place] 5 MA LL MG CY IA M TA OF F BL ET CY NT HI AN A EX 00 05 11 5 30 30 EA 17 MC Ac FO 07 -2 -[address] 70 KE ti RG 80 2- 3- 00 SI 24 NV ve E 48 20 20 DE E 10 91 10 10 JR -1 5 PH 60 AR [place] MA LL MG CY IA M TA OF F BL ET CY NT HI AN A LE 00 08 10 2 30 30 EA 18 MC Ac VO 37 -1 -[address] 75 KE ti TH 81 8- 3 00 SI 58 NV ve YR 80 20 20 DE E OX 30 10 10 JR IN 1 PH E [place] 50 MA LL CY IA MC M G OF F TA BL CY ET NT HI AN A HY 00 09 10 2 30 30 EA [address] 59 -2 -[address] 23 KE ti OC 10 1- 3- 00 SI 17 NV ve HL 34 20 20 DE E OR 70 10 10 JR OT 1 PH HI AR [place] MA LL ID CY IA E M 12 OF F .5 CY MG NT HI CP AN A NE 00 10 10 3 30 30 EA 19 MC Ac XI 18 -1 -[address] 59 KE ti UM 65 8- 8- 00 SI 05 NV ve 04 [address] 03 10 10 JR 1 PH 40 AR [place] MA LL MG CY IA M CA OF F PS UL CY E NT HI AN A SI 16 08 10 3 30 30 EA 18 MC Ac MV 71 -0 -[address] 64 KE ti 40 9- 5- 00 SI 89 NV ve TA 68 20 20 DE E TI 40 10 10 JR N 3 PH 40 AR [place] MA LL MG CY IA M TA OF F BL ET CY NT HI AN A 00 10 10 0 12 30 EA 19 MC Ac 59 -1 -[address] 53 KE ti 10 3- 3 00 SI 11 NV ve 54 20 20 0 DE E 00 10 10 JR 1 PH AR [place] MA LL CY IA M OF F CY NT HI AN A CL 00 10 10 0 90 30 EA 19 Ac ON 09 -0 -[address] 46 KE ti AZ 30 8 8 SI 44 NV ve EP 83 20 20 DE E AM 20 10 10 JR 1 PH 0. [place] 5 MA LL MG CY IA M TA OF F BL ET CY NT HI AN A EX 00 05 10 5 30 30 EA 17 MC Ac FO 07 -2 -[address] 70 KE ti RG 80 2- 2- 00 SI 24 NV ve E 48 20 20 DE E 10 91 10 10 JR -1 5 PH 60 AR [place] MA LL MG CY IA M TA OF F BL ET CY NT HI AN A GALLAGHER 53 09 09 0 20 10 EA 19 MC Ac LF 74 -2 -[address] 28 KE ti AM 60 SI 32 NV ve ET 27 20 20 DE E HO 20 10 10 JR XA 5 PH ZO AR WI LE MA LL -T CY IA MP M OF F DS CY TA NT BL HI ET AN A LE 00 08 09 2 30 30 EA 18 MC Ac VO 37 -1 -[address] 75 KE ti TH 81 8 SI 58 NV ve YR 80 20 20 DE E OX 30 10 10 JR IN 1 PH E [place] 50 MA LL CY IA MC M G OF F TA BL CY ET NT HI AN A HY 00 09 09 2 30 30 EA [address] 59 -2 -[address] 23 KE ti OC 10 1- SI 17 NV ve HL 34 20 20 DE E OR 70 10 10 JR OT 1 PH HI [place] MA LL ID CY IA E M 12 OF F .5 CY MG NT HI CP AN A SI 16 08 09 3 30 30 EA 18 MC Ac MV 71 -0 -[address] 64 KE ti 40 9- 4 00 SI 89 NV ve TA 68 20 20 DE E TI 40 10 10 JR N 3 PH 40 AR [place] MA LL MG CY IA M TA OF F BL ET CY NT HI AN A 00 09 09 0 12 30 EA 19 MC Ac 59 -1 -[address] 10 KE ti 10 3- 3- 00 SI 99 NV ve 54 20 20 0 DE E 00 10 10 JR 1 PH AR [place] MA LL CY IA M OF F CY NT HI AN A CL 00 09 09 0 90 30 EA 19 MC Ac ON 09 -0 -[address] 04 KE ti AZ 30 8- 8- 00 SI 54 NV ve EP 83 20 20 DE E AM 20 10 10 JR 1 PH 0. [place] 5 MA LL MG CY IA M TA OF F BL ET CY NT HI AN A EX 00 05 09 5 30 30 EA 17 MC Ac FO 07 -2 -[address] 70 KE ti RG 80 2- 1- 00 SI 24 NV ve E 48 20 20 DE E [...] 05 08 3 [address] 59 -0 -[address] 50 KE ti OC 10 7- 8- 00 SI 77 NV ve HL 34 20 20 DE E OR 70 10 10 JR OT 1 PH HI [place] MA LL ID CY IA E M 12 OF F .5 CY MG NT HI CP AN A LE 00 08 08 2 30 30 EA 18 MC Ac VO 37 -1 -[address] 75 KE ti TH 81 8- 8- 00 SI 58 NV ve YR 80 20 20 DE E OX 30 10 10 JR IN 1 PH E [place] 50 MA LL CY IA MC M G OF F TA BL CY ET NT HI AN A 00 08 08 0 12 30 EA 18 MC Ac 59 -1 -[address] 71 KE ti 10 4- 4- 00 SI 12 NV ve 54 20 20 0 DE E 00 10 10 JR 1 PH AR [place] MA LL CY IA M OF F CY NT HI AN A NE 00 08 08 3 60 30 EA 18 MC Ac XI 18 -0 -[address] 64 KE ti UM 65 9- 9- 00 SI 88 NV ve 04 [address] 03 10 10 JR 1 PH 40 AR [place] MA LL MG CY IA M CA OF F PS UL CY E NT HI AN A SI 16 08 08 3 30 30 EA 18 MC Ac MV 71 -0 -[address] 64 KE ti 40 9- 9- 00 SI 89 NV ve TA 68 20 20 DE E TI 40 10 10 JR N 3 PH 40 AR [place] MA LL MG CY IA M TA OF F BL ET CY NT HI AN A CL 00 08 08 0 90 30 EA 18 MC Ac ON 09 -0 -[address] 64 KE ti AZ 30 9- 9 00 SI 45 NV ve EP 83 20 20 DE E AM 20 10 10 JR 1 PH 0. AR [place] 5 MA LL MG CY IA M TA OF F BL ET CY NT HI AN A EX 00 05 07 5 30 30 EA 17 MC Ac FO 07 -2 -[address] 70 KE ti RG 80 2- 8- 00 SI 24 NV ve E 48 20 20 DE E 10 91 10 10 JR -1 5 PH 60 AR [place] MA LL MG CY IA M TA OF F BL ET CY NT HI AN A HY 00 05 07 3 30 30 EA [address] 59 -0 -[address] 50 KE ti OC 10 7- 0- 00 SI 77 NV ve HL 34 20 20 DE E OR 70 10 10 JR OT 1 PH HI [place] MA LL ID CY IA E M 12 OF F .5 CY MG NT HI CP AN A LE 00 04 07 3 30 30 EA 17 MC Ac VO 37 -0 -[address] 10 KE ti TH 81 7- 0- 00 SI 12 NV ve YR 80 20 20 DE E OX 30 10 10 JR IN 1 PH E [place] 50 MA LL CY IA MC M G OF F TA BL CY ET NT HI AN A CL 00 07 07 0 90 30 EA 18 MC Ac ON 09 -0 -[address] 26 KE ti AZ 30 8- 8- 00 SI 89 NV ve EP 83 20 20 DE E [...] 03 07 3 30 30 EA 16 MC Ac XI 18 -1 -[address] 82 KE ti UM 65 7- 3- 00 SI 12 NV ve 04 [address] 03 10 10 JR 1 PH 40 AR [place] MA LL MG CY IA M CA OF F PS UL CY E NT HI AN A SI 16 02 07 4 30 30 EA 16 MC Ac MV 72 -1 -[address] 35 KE ti 90 2- 3- 00 SI 46 NV ve TA 00 20 20 DE E TI 61 10 10 JR N 7 PH 40 AR [place] MA LL MG CY IA M TA OF F BL ET CY NT HI AN A EX 00 05 06 5 30 30 EA 17 MC Ac FO 07 -2 -[address] 70 KE ti RG 80 2- 7- 00 SI 24 NV ve E 48 20 20 DE E 10 91 10 10 JR -1 5 PH 60 AR [place] MA LL MG CY IA M TA OF F BL ET CY NT HI AN A 00 06 06 0 12 30 EA 17 MC Ac 59 -1 -[address] 97 KE ti 10 4 4 00 SI 41 NV ve 54 20 20 0 DE E 00 10 10 JR 1 PH AR [place] MA LL CY IA M OF F CY NT HI AN A LE 00 04 06 3 30 30 EA 17 MC Ac VO 37 -0 -[address] 10 KE ti TH 81 7- 1- 00 SI 12 NV ve YR 80 20 20 DE E OX 30 10 10 JR IN 1 PH E [place] 50 MA LL CY IA MC M G OF F TA BL CY ET NT HI AN A HY 00 05 06 3 30 30 EA [address] 59 -0 -[address] 50 KE ti OC 10 7- 1- 00 SI 77 NV ve HL 34 20 20 DE E OR 70 10 10 JR OT 1 PH HI AR [place] MA LL ID CY IA E M 12 OF F .5 CY MG NT HI CP AN A 00 06 06 0 24 3 EA 17 AL Ac 59 -0 -[address] 91 LR ti 10 9- 9- 00 SI 70 AN ve 54 20 20 DE 00 10 10 JR 1 PH AR CH MA AR CY LE S OF F CY NT HI AN A CL 00 06 06 0 90 30 EA 17 MC Ac ON 09 -0 -[address] 87 KE ti AZ 30 5- 5- 00 SI 85 NV ve EP 83 20 20 DE E AM 20 10 10 JR 1 PH 0. AR [place] 5 MA LL MG CY IA M TA OF F BL ET CY NT HI AN A NE 00 03 05 3 30 30 EA 16 MC Ac XI 18 -1 -[address] 82 KE ti UM 65 7- 9- 00 SI 12 NV ve 04 [address] 03 10 10 JR 1 PH 40 AR [place] MA LL MG CY IA M CA OF F PS UL CY E NT HI AN A SI 65 02 05 3 30 30 EA 16 MC Ac MV 86 -1 -[address] 35 KE ti 20 2- 9- 00 SI 46 NV ve TA 05 20 20 DE E TI 33 10 10 JR N 0 PH 40 AR [place] MA LL MG CY IA M TA OF F BL ET CY NT HI AN A EX 00 05 05 5 30 30 EA 17 MC Ac FO 07 -2 -[address] 70 KE ti RG 80 2- 2- 00 SI 24 NV ve E 48 20 20 DE E 10 91 10 10 JR -1 5 PH 60 AR [place] MA LL MG CY IA M TA OF F BL ET CY NT HI AN A 00 05 05 0 12 30 EA 17 MC Ac 59 -1 -[address] 61 KE ti 10 5- 5- 00 SI 05 NV ve 54 20 20 0 DE E 00 10 10 JR 1 PH AR [place] MA LL CY IA M OF F CY NT HI AN A LE 00 04 05 3 30 30 EA 17 MC Ac VO 37 -0 -[address] 10 KE ti TH 81 7- 7- 00 SI 12 NV ve YR 80 20 20 DE E OX 30 10 10 JR IN 1 PH E [place] 50 MA LL CY IA MC M G OF F TA BL CY ET NT HI AN A HY 00 05 05 3 30 30 EA [address] 59 -0 -[address] 50 KE ti OC 10 7- 7- 00 SI 77 NV ve HL 34 20 20 DE E OR 70 10 10 JR OT 1 PH HI AR [place] MA LL ID CY IA E M 12 OF F .5 CY MG NT HI CP AN A CL 00 05 05 0 90 30 EA 17 MC Ac ON 09 -0 -[address] 48 KE ti AZ 30 6- 6- 00 SI 98 NV ve EP 83 20 20 DE E AM 20 10 10 JR 1 PH 0. [place] 5 MA LL MG CY IA M TA OF F BL ET CY NT HI AN A SI 65 02 04 3 30 30 EA 16 MC Ac MV 86 -1 -[address] 35 KE ti 20 2- 3- 00 SI 46 NV ve TA 05 20 20 DE E TI 33 10 10 JR N 0 PH 40 AR [place] MA LL MG CY IA M TA OF F BL ET CY NT HI AN A NE 00 03 04 3 30 30 EA 16 MC Ac XI 18 -1 -[address] 82 KE ti UM 65 7- 3- 00 SI 12 NV ve 04 [address] 03 10 10 JR 1 PH 40 AR [place] MA LL MG CY IA M CA OF F PS UL CY E NT HI AN A 00 04 04 0 12 30 EA 17 MC Ac 59 -1 -[address] 20 KE ti 10 5- 5 SI 16 NV ve 54 20 20 0 DE E 00 10 10 JR 1 PH AR [place] MA LL CY IA M OF F CY NT HI AN A CL 00 04 04 0 60 30 EA 17 MC Ac ON .0 ST 20 KE ti AZ 30 5- 5 SI 17 NV ve EP 83 20 20 DE E AM 20 10 10 JR 1 PH 0. [place] 5 MA LL MG CY IA M TA OF F BL ET CY NT HI AN A HY 00 01 04 3 30 30 EA [address] 59 -0 -[address] 81 KE ti OC 10 4 SI 52 NV ve HL 34 20 20 DE E OR 70 10 10 JR OT 1 PH HI AR [place] MA LL ID CY IA E M 12 OF F .5 CY MG NT HI CP AN A LE 00 04 04 3 30 30 EA 17 MC Ac VO 37 -0 -[address] 10 KE ti TH 81 7 7 SI 12 NV ve YR 80 20 20 DE E OX 30 10 10 JR IN 1 PH E [place] 50 MA LL CY IA MC M G OF F TA BL CY ET NT HI AN A SI 65 02 03 3 30 30 EA 16 MC Ac MV 86 -1 -[address] 35 KE ti 20 2- 7- SI 46 NV ve TA 05 20 20 DE E TI 33 10 10 JR N 0 PH 40 AR [place] MA LL MG CY IA M TA OF F BL ET CY NT HI AN A CL 00 03 03 0 60 30 EA 16 MC Ac ON .0 ST 81 KE ti AZ 30 7- 7 SI 84 NV ve EP 83 20 20 DE E AM 20 10 10 JR 1 PH 0. [place] 5 MA LL MG CY IA M TA OF F BL ET CY NT HI AN A NE 00 03 03 3 30 30 EA 16 MC Ac XI 18 -1 -[address] 82 KE ti UM 65 7- 7- 00 SI 12 NV ve 04 [address] 03 10 10 JR 1 PH 40 [place] MA LL MG CY IA M CA OF F PS UL CY E NT HI AN A 00 03 03 0 12 30 EA 16 MC Ac 59 -1 -[address] 81 KE ti 10 7- 7 00 SI 83 NV ve 54 20 20 0 DE E 00 10 10 JR 1 PH AR [place] MA LL CY IA M OF F CY NT HI AN A LE 00 12 03 3 30 30 EA 15 MC Ac VO 37 -0 -[address] 38 KE ti TH 81 2- 8 00 SI 79 NV ve YR 80 20 20 DE E OX 30 09 10 JR IN 1 PH E [place] 50 MA LL CY IA MC M G OF F TA BL CY ET NT HI AN A HY 00 01 03 3 30 30 EA [address] 59 -0 -[address] 81 KE ti OC 10 4 8 00 SI 52 NV ve HL 34 20 20 DE E OR 70 10 10 JR OT 1 PH HI AR [place] MA LL ID CY IA E M 12 OF F .5 CY MG NT HI CP AN A CL 00 02 02 00 60 30 EA 16 MC Ac ON 09 -1 -[address] 37 KE ti AZ 30 5 6 SI 94 NV ve EP 83 20 20 DE E AM 20 10 10 JR 1 PH 0. [place] 5 MA LL MG CY IA M TA OF F BL CY ET NT HI AN A 00 02 02 00 12 30 EA 16 MC Ac 59 -1 -[address] 37 KE ti 10 5- 6- SI 95 NV ve 54 20 20 0 DE E 00 10 10 JR 1 PH AR [place] MA LL CY IA M OF F CY NT HI AN A SI 65 02 02 00 30 30 EA 16 MC Ac MV 86 -1 -[address] 35 KE ti 20 2- 6- 00 SI 46 NV ve TA 05 20 20 DE E TI 33 10 10 JR N 0 PH 40 AR [place] MA LL MG CY IA M TA OF F BL CY ET NT HI AN A NE 00 08 02 05 30 30 EA 14 MC Ac XI 18 -3 -[address] 06 KE ti UM 65 1- 1- 00 SI 00 NV ve 04 [address] 03 09 10 JR 1 PH 40 AR [place] MA LL MG CY IA M CA OF F PS CY UL NT E HI AN A LE 00 12 02 02 30 30 EA 15 MC Ac VO 37 -0 -[address] 38 KE ti TH 81 2 SI 79 NV ve YR 80 20 20 DE E OX 30 09 10 JR IN 1 PH E [place] 50 MA LL CY IA MC M G OF F TA CY BL NT ET HI AN A HY 00 11 29 01 30 30 EA [address] 59 -0 -[address] 81 KE ti OC 10 4 SI 52 NV ve HL 34 20 20 DE E OR 70 10 10 JR OT 1 PH HI [place] MA LL ID CY IA E M 12 OF F .5 CY NT MG HI AN CP A 00 11 28 99 12 30 EA 15 MC Ac 59 -1 -[address] 95 KE ti 10 4 8 SI 82 NV ve 54 20 20 0 DE E 00 10 10 JR 1 PH AR [place] MA LL CY IA M OF F CY NT HI AN A CL 00 11 28 00 60 30 EA 15 MC Ac ON 09 -1 -[address] 95 KE ti AZ 30 SI 83 NV ve EP 83 20 20 DE E AM 20 10 10 JR 1 PH 0. [place] 5 MA LL MG CY IA M TA OF F BL CY ET NT HI AN A SI 65 09 01 03 30 30 EA 14 MC Ac MV 86 -3 -[address] 49 KE ti 20 0 8 SI 48 NV ve TA 05 20 20 DE E TI 33 09 10 JR N 0 PH 40 AR [place] MA LL MG CY IA M TA OF F BL CY ET NT HI AN A NE 00 08 01 04 30 30 EA 14 MC Ac XI 18 -3 -[address] 06 KE ti UM 65 SI 00 NV ve 04 [address] 03 09 10 JR 1 PH 40 AR [place] MA LL MG CY IA M CA OF F PS CY UL NT E HI AN A LE 00 12 01 01 30 30 EA 15 MC Ac VO 37 -0 -[address] 38 KE ti TH 81 2- 4 SI 79 NV ve YR 80 20 20 DE E OX 30 09 10 JR IN 1 PH E [place] 50 MA LL CY IA MC M G OF F TA CY BL NT ET HI AN A HY 00 11 28 00 30 30 EA [address] 59 -0 -[address] 81 KE ti OC 10 4- 4- 00 SI 52 NV ve HL 34 20 20 DE E OR 70 10 10 JR OT 1 PH HI AR [place] MA LL ID CY IA E M 12 OF F .5 CY NT MG HI AN CP A CL 00 12 12 00 60 30 EA 15 MC Ac ON 09 -1 -[address] 56 KE ti AZ 30 4- 1- 00 SI 09 NV ve EP 83 20 20 DE E AM 20 09 09 JR 1 PH 0. [place] 5 MA LL MG CY IA M TA OF F BL CY ET NT HI AN A 00 12 12 00 12 30 EA 15 MC Ac 59 -1 -[address] 56 KE ti 10 4- 1- 00 SI 08 NV ve 54 20 20 0 DE E 00 09 09 JR 1 PH AR [place] MA LL CY IA M OF F CY NT HI AN A HY 00 07 12 04 30 30 EA [address] 59 -1 -[address] 47 KE ti OC 10 4- 7- 00 SI 77 NV ve HL 34 20 20 DE E OR 70 09 09 JR OT 1 PH HI AR [place] MA LL ID CY IA E M 12 OF F .5 CY NT MG HI AN CP A NE 00 08 12 03 30 30 EA 14 Ac XI 18 -3 -[address] 06 KE ti UM 65 1- 7- 00 SI 00 NV ve 04 [address] 03 09 09 JR 1 PH 40 AR [place] MA LL MG CY IA M CA OF F PS CY UL NT E HI AN A LE 00 12 12 00 30 30 EA 15 Ac VO 37 -0 -[address] 38 KE ti TH 81 2- 7- 00 SI 79 NV ve YR 80 20 20 DE E OX 30 09 09 JR IN 1 PH E [place] 50 MA LL CY IA MC M G OF F TA CY BL NT ET HI AN A SI 65 09 12 02 30 30 EA 14 Ac MV 86 -3 -[address] 49 KE ti 20 0- 7- 00 SI 48 NV ve TA 05 20 20 DE E TI 33 09 09 JR N 0 PH 40 AR [place] MA LL MG CY IA M TA OF F BL CY ET NT HI AN A CL 00 11 12 00 60 30 EA 15 MC Ac ON 09 -1 -[address] 13 KE ti AZ 30 4- 3- 00 SI 29 NV ve EP 83 20 20 DE E AM 20 09 09 JR 1 PH 0. [place] 5 MA LL MG CY IA M TA OF F BL CY ET NT HI AN A NE 00 08 11 02 30 30 EA 14 MC Ac XI 18 -3 -[address] 06 KE ti UM 65 1 9 SI 00 NV ve 04 [address] 03 09 09 JR 1 PH 40 [place] MA LL MG CY IA M CA OF F PS CY UL NT E HI AN A LE 00 07 11 03 30 30 EA 13 MC Ac VO 37 -2 -[address] 63 KE ti TH 81 7 SI 09 NV ve YR 80 20 20 DE E OX 30 09 09 JR IN 1 PH E [place] 50 MA LL CY IA MC M G OF F TA CY BL NT ET HI AN A SI 65 09 11 01 30 30 EA 14 MC Ac MV 86 -3 -[address] 49 KE ti 20 0 9 SI 48 NV ve TA 05 20 20 DE E TI 33 09 09 JR N 0 PH 40 AR [place] MA LL MG CY IA M TA OF F BL CY ET NT HI AN A HY 00 07 11 03 30 30 EA [address] 59 -1 -[address] 47 KE ti OC 10 4- 5- 00 SI 77 NV ve HL 34 20 20 DE E OR 70 09 09 JR OT 1 PH HI AR [place] MA LL ID CY IA E M 12 OF F .5 CY NT MG HI AN CP A 00 10 10 00 12 30 EA 14 MC Ac 59 -1 -[address] 69 KE ti 10 4- 2- 00 SI 56 NV ve 54 20 20 0 DE E 00 09 09 JR 1 PH AR [place] MA LL CY IA M OF F CY NT HI AN A CL 00 10 10 00 60 30 EA 14 MC Ac ON 09 -1 -[address] 69 KE ti AZ 30 4- 2- 00 SI 57 NV ve EP 83 20 20 DE E AM 20 09 09 JR 1 PH 0. [place] 5 MA LL MG CY IA M TA OF F BL CY ET NT HI AN A NE 00 08 10 01 30 30 EA 14 MC Ac XI 18 -3 -[address] 06 KE ti UM 65 1 2- SI 00 NV ve 04 [address] 03 09 09 JR 1 PH 40 AR [place] MA LL MG CY IA M CA OF F PS CY UL NT E HI AN A SI 65 09 10 00 30 30 EA 14 MC Ac MV 86 -3 -[address] 49 KE ti 20 0- 8- 00 SI 48 NV ve TA 05 20 20 DE E TI 33 09 09 JR N 0 PH 40 AR [place] MA LL MG CY IA M TA OF F BL CY ET NT HI AN A LE 00 07 10 02 30 30 EA 13 MC Ac VO 37 -2 -[address] 63 KE ti TH 81 7- 8- 00 SI 09 NV ve YR 80 20 20 DE E OX 30 09 09 JR IN 1 PH E [place] 50 MA LL CY IA MC M G OF F TA CY BL NT ET HI AN A HY 00 07 09 02 30 30 EA [address] 59 -1 -[address] 47 KE ti OC 10 4- 4- 00 SI 77 NV ve HL 34 20 20 DE E OR 70 09 09 JR OT 1 PH HI AR [place] MA LL ID CY IA E M 12 OF F .5 CY NT MG HI AN CP A CL 00 09 09 00 60 30 EA 14 MC Ac ON 09 - -[address] 23 KE ti AZ 30 4- 4- 00 SI 85 NV ve EP 83 20 20 DE E AM 20 09 09 JR 1 PH 0. [place] 5 MA LL MG CY IA M TA OF F BL CY ET NT HI AN A 00 09 09 00 12 30 EA 14 MC Ac 59 -1 -[address] 23 KE ti 10 4- 4- 00 SI 84 NV ve 54 20 20 0 DE E 00 09 09 JR 1 PH AR [place] MA LL CY IA M OF F CY NT HI AN A LE 00 07 09 01 30 30 EA 13 MC Ac VO 37 -2 -[address] 63 KE ti TH 81 7- 0- 00 SI 09 NV ve YR 80 20 20 DE E OX 30 09 09 JR IN 1 PH E [place] 50 MA LL CY IA MC M G OF F TA CY BL NT ET HI AN A NE 00 08 09 00 30 30 EA 14 MC Ac XI 18 -3 -[address] 06 KE ti UM 65 1- 0- 00 SI 00 NV ve 04 [address] 03 09 09 JR 1 PH 40 AR [place] MA LL MG CY IA M CA OF F PS CY UL NT E HI AN A CL 00 08 08 00 60 30 EA 13 MC Ac ON 09 -1 -[address] 84 KE ti AZ 30 4- 7- 00 SI 73 NV ve EP 83 20 20 DE E AM 20 09 09 JR 1 PH 0. [place] 5 MA LL MG CY IA M TA OF F BL CY ET NT HI AN A 00 08 08 00 12 30 EA 13 MC Ac 59 -1 -[address] 84 KE ti 10 4- 7- 00 SI 74 NV ve 54 20 20 0 DE E 00 09 09 JR 1 PH AR [place] MA LL CY IA M OF F CY NT HI AN A SI 65 05 08 03 30 30 EA 12 MC Ac MV 86 -0 -[address] 56 KE ti 20 1- 7- 00 SI 59 NV ve TA 05 20 20 DE E TI 33 09 09 JR N 0 PH 40 AR [place] MA LL MG CY IA M TA OF F BL CY ET NT HI AN A HY 00 07 08 01 30 30 EA [address] 59 -1 -[address] 47 KE ti OC 10 4- 7- 00 SI 77 NV ve HL 34 20 20 DE E OR 70 09 09 JR OT 1 PH HI AR [place] MA LL ID CY IA E M 12 OF F .5 CY NT MG HI AN CP A LE 00 07 08 00 30 30 EA 13 MC Ac VO 37 -2 -[address] 63 KE ti TH 81 7- 3- 00 SI 09 NV ve YR 80 20 20 DE E OX 30 09 09 JR IN 1 PH E [place] 50 MA LL CY IA MC M G OF F TA CY BL NT ET HI AN A NE 00 04 08 03 30 30 EA 12 MC Ac XI 18 -1 -[address] 35 KE ti UM 65 5- 3- 00 SI 57 NV ve 04 [address] 03 09 09 JR 1 PH 40 [place] MA LL MG CY IA M CA OF F PS CY UL NT E HI AN A SI 65 05 07 02 30 30 EA 12 MC Ac MV 86 -0 -[address] 56 KE ti 20 1- 0- 00 SI 59 NV ve TA 05 20 20 DE E TI 33 09 09 JR N 0 PH 40 AR [place] MA LL MG CY IA M TA OF F BL CY ET NT HI AN A HY 00 07 07 00 30 30 EA [address] 59 -1 -[address] 47 KE ti OC 10 4- 0- 00 SI 77 NV ve HL 34 20 20 DE E OR 70 09 09 JR OT 1 PH HI AR [place] MA LL ID CY IA E M 12 OF F .5 CY NT MG HI AN CP A 00 07 07 00 12 30 EA 13 MC Ac 59 -1 -[address] 50 KE ti 10 5- 0- 00 SI 62 NV ve 54 20 20 0 DE E 00 09 09 JR 1 PH AR [place] MA LL CY IA M OF F CY NT HI AN A CL 00 05 07 02 60 30 EA 12 MC Ac ON 09 -1 -[address] 75 KE ti AZ 30 5- 0- 00 SI 71 NV ve EP 83 20 20 DE E AM 20 09 09 JR 1 PH 0. [place] 5 MA LL MG CY IA M TA OF F BL CY ET NT HI AN A NE 00 04 07 02 30 30 EA 12 MC Ac XI 18 -1 -[address] 35 KE ti UM 65 5- 6- 00 SI 57 NV ve 04 [address] 03 09 09 JR 1 PH 40 AR [place] MA LL MG CY IA M CA OF F PS CY UL NT E HI AN A HY 00 06 07 00 60 10 EA [address] 55 -2 -[address] 28 ON ti OX 50 6- 2- 00 SI 19 NE ve YZ 32 20 20 DE LL IN 30 09 09 E 4 PH ANJELICA PA AR HN M MA 25 CY MG OF CY CA NT P HI AN A HY 00 05 07 01 30 30 EA [address] 59 -1 -[address] 72 KE ti OC 10 2- 2- 00 SI 08 NV ve HL 34 20 20 DE E OR 70 09 09 JR OT 1 PH HI AR [place] MA LL ID CY IA E M 12 OF F .5 CY NT MG HI AN CP A ME 16 06 07 00 90 30 EA 13 MC Ac TO 71 -1 -[address] 13 KE ti CL 40 3- 2- 00 SI 20 NV ve OP 06 20 20 DE E RA 20 09 09 JR NV 6 PH DE AR [place] MA LL 10 CY IA M MG OF F CY TA NT BL HI ET AN A CL 00 05 07 01 60 30 EA 12 MC Ac ON 09 -1 -[address] 75 KE ti AZ 30 5- 2- 00 SI 71 NV ve EP 83 20 20 DE E AM 20 09 09 JR 1 PH 0. [place] 5 MA LL MG CY IA M TA OF F BL CY ET NT HI AN A 00 06 07 00 12 30 EA 13 MC Ac 59 -1 -[address] 16 KE ti 10 6- 2- 00 SI 06 NV ve 54 20 20 0 DE E 00 09 09 JR 1 PH AR [place] MA LL CY IA M OF F CY NT HI AN A LE 00 03 07 [...] ti 20 1- 8- 00 SI 59 NV ve TA 05 20 20 DE E TI 33 09 09 JR N 0 PH 40 AR [place] MA LL MG CY IA M TA OF F BL CY ET NT HI AN A 00 05 06 00 12 30 EA 12 MC Ac 59 -1 -[address] 77 KE ti 10 8- 4 SI 89 NV ve 54 20 20 0 DE E 00 09 09 JR 1 PH AR [place] MA LL CY IA M OF F CY NT HI AN A NE 00 04 06 01 30 30 EA 12 MC Ac XI 18 -1 -[address] 35 KE ti UM 65 5- 4 SI 57 NV ve 04 [address] 03 09 09 JR 1 PH 40 AR [place] MA LL MG CY IA M CA OF F PS CY UL NT E HI AN A LE 00 03 06 02 30 30 EA 11 NG Ac VO 37 -1 -[address] 90 RV ti TH 81 6- 4- 00 SI 92 EY ve YR 80 20 20 DE OX 30 09 09 ANJELICA IN 1 PH DI E AR 50 MA CY MC G OF TA CY BL NT ET HI AN A ME 60 05 05 00 30 30 EA 12 MC Ac LO 50 -1 -[address] 75 KE ti XI 52 5- 1- 00 SI 72 NV ve CA 55 20 20 DE E M 40 09 09 JR 15 1 PH AR [place] MG MA LL CY IA TA M BL OF F ET CY NT HI AN A HY 00 05 05 00 30 30 EA [address] 59 -1 -[address] 72 KE ti OC 10 2- 1- 00 SI 08 NV ve HL 34 20 20 DE E OR 70 09 09 JR OT 1 PH HI AR [place] MA LL ID CY IA E M 12 OF F .5 CY NT MG HI AN CP A CL 00 05 05 00 60 30 EA 12 MC Ac ON 09 -1 -[address] 75 KE ti AZ 30 5- 1- 00 SI 71 NV ve EP 83 20 20 DE E AM 20 09 09 JR 1 PH 0. [place] 5 MA LL MG CY IA M TA OF F BL CY ET NT HI AN A SI 65 05 05 00 30 30 EA 12 MC Ac MV 86 -0 -[address] 56 KE ti 20 1- 7- 00 SI 59 NV ve TA 05 20 20 DE E TI 33 09 09 JR N 0 PH 40 AR [place] MA LL MG CY IA M TA OF F BL CY ET NT HI AN A NE 00 04 04 00 30 30 EA 12 MC Ac XI 18 -1 -[address] 35 KE ti UM 65 5- 3- 00 SI 57 NV ve 04 [address] 03 09 09 JR 1 PH 40 AR [place] MA LL MG CY IA M CA OF F PS CY UL NT E HI AN A CL 00 04 04 00 60 30 EA 12 BE Ac ON 09 -1 -[address] 35 SS ti AZ [...] A OF CY NT HI AN A HY [...] CY NT MG HI AN CP A ME 49 03 04 01 30 30 EA 11 NG Ac TO 88 -1 -[address] 90 RV ti DE 40 6- 3- 00 SI 94 EY ve OL 40 20 20 DE OL 50 09 09 ANJELICA 1 PH DI GALLAGHER AR CC MA CY ER OF 50 CY NT MG HI AN TA A B LE 00 03 04 01 30 30 EA 11 NG Ac VO 37 -1 -[address] 90 RV ti TH 81 6- 3- 00 SI 92 EY ve YR 80 20 20 DE OX 30 09 09 ANJELICA IN 1 PH DI E AR 50 MA CY MC G OF TA CY BL NT ET HI AN A ME 49 03 03 00 30 30 EA 11 NG Ac TO 88 -1 -[address] 90 RV ti DE 40 6- 6- 00 SI 94 EY [...] ST 90 RV ti AZ 30 6- 6 00 SI 95 EY ve EP 83 20 20 DE AM 20 09 09 ANJELICA 1 PH DI 0. AR 5 MA MG CY TA OF BL CY ET NT HI AN A SI 65 10 03 05 30 30 EA 99 MC Ac MV 86 -0 -[address] 75 KE ti 20 6- 6- 00 SI 41 NV ve TA 05 20 20 DE E TI 33 08 09 JR N 0 PH 40 AR [place] MA LL MG CY IA M TA OF F BL CY ET NT HI AN A NE 00 03 03 00 30 30 EA 11 MC Ac XI 18 -1 -[address] 83 KE ti UM 65 0- 6- 00 SI 05 NV ve 04 [address] 03 09 09 JR 1 PH 40 AR [place] MA LL MG CY IA M CA OF F PS CY UL NT E HI AN A 00 02 02 00 12 30 EA 11 MC Ac 59 -1 -[address] 48 KE ti 10 6- 6 00 SI 90 NV ve 54 20 20 0 DE E 00 09 09 JR 1 PH AR WI MA LL CY IA M OF F CY NT HI AN A ME 49 11 02 03 30 30 EA 10 MC Ac TO 88 -0 -[address] 14 KE ti DE 40 5- 6- 00 SI 65 NV ve OL 40 20 20 DE E OL 50 08 09 JR 1 PH GALLAGHER AR [place] CC MA LL CY IA ER M OF F 50 CY NT MG HI AN TA A B SI 65 10 02 04 30 30 EA 99 MC Ac MV 86 -0 -[address] 75 KE ti 20 6- 6- 00 SI 41 NV ve TA 05 20 20 DE E TI 33 08 09 JR N 0 PH 40 AR [place] MA LL MG CY IA M TA OF F BL CY ET NT HI AN A CL 00 02 02 00 60 30 EA 11 MC Ac ON 09 -1 -[address] 48 KE ti AZ 30 6- 6- 00 SI 89 NV ve EP 83 20 20 DE E AM 20 09 09 JR 1 PH 0. AR [place] 5 MA LL MG CY IA M TA OF F BL CY ET NT HI AN A LE 00 01 02 01 30 30 EA 11 MC Ac VO 37 -1 -[address] 07 KE ti TH 81 3- 6- 00 SI 93 NV ve YR 80 20 20 DE E OX 30 09 09 JR IN 1 PH E [place] 50 MA LL CY IA MC M G OF F TA CY BL NT ET HI AN A HY 00 02 02 00 30 30 EA [address] 59 -1 -[address] 49 NT ti OC 10 6- 6- 00 SI 33 ER ve HL 34 20 20 DE OR 70 09 09 NA OT 1 PH NC HI AR Y AZ MA C ID CY E 12 OF .5 CY NT MG HI AN CP A NE 00 08 02 05 30 30 EA 99 MC Ac XI 18 -2 -[address] 22 KE ti UM 65 6- 2- 00 SI 45 NV ve 04 [address] 03 08 09 JR 1 PH 40 AR [place] MA LL MG CY IA M CA OF F PS CY UL NT E HI AN A LE 00 01 01 00 30 30 EA 11 MC Ac VO 37 -1 -[address] 07 KE ti TH 81 3- 0- 00 SI 93 NV ve YR 80 20 20 DE E OX 30 09 09 JR IN 1 PH E [place] 50 MA LL CY IA MC M G OF F TA CY BL NT ET HI AN A CL 00 01 01 00 60 30 EA 11 NG Ac ON 09 - -[address] 14 RV ti AZ [...] NT HI AN A NE 00 08 01 04 30 30 EA 99 MC Ac XI 18 -2 -[address] 22 KE ti UM 65 6- 5- 00 SI 45 NV ve 04 [address] 03 08 09 JR 1 PH 40 AR [place] MA LL MG CY IA M CA OF F PS CY UL NT E HI AN A SI 65 10 01 03 30 30 EA 99 MC Ac MV 86 -0 -[address] 75 KE ti 20 6- 5- 00 SI 41 NV ve TA 05 20 20 DE E TI 33 08 09 JR N 0 PH 40 AR [place] MA LL MG CY IA M TA OF F BL CY ET NT HI AN A AM 68 01 [...] NT MG HI AN TA A B ME 49 11 01 02 30 30 EA 10 MC Ac TO 88 -0 -[address] 14 KE ti DE 40 5- 5- 00 SI 65 NV ve OL 40 20 20 DE E OL 50 08 09 JR 1 PH GALLAGHER AR [place] CC MA LL CY IA ER M OF F 50 CY NT MG HI AN TA A B LE 00 11 01 01 30 30 EA 10 MC Ac VO 37 -1 -[address] 21 KE ti TH 81 0- 1- 00 SI 64 NV ve YR 80 20 20 DE E OX 30 08 09 JR IN 1 PH E AR [place] 50 MA LL CY IA MC M G OF F TA CY BL NT ET HI AN A 00 12 01 00 12 30 EA 10 NG Ac 59 -1 -[address] 72 RV ti 10 7- 1- 00 SI 93 EY ve 54 20 20 0 DE 00 08 09 ANJELICA 1 PH DI AR MA CY OF CY NT HI AN A ME 49 11 12 01 30 30 EA 10 MC Ac TO 88 -0 -[address] 14 KE ti DE 40 5- 8- 00 SI 65 NV ve OL 40 20 20 DE E OL 50 08 08 JR 1 PH GALLAGHER AR [place] CC MA LL CY IA ER M OF F 50 CY NT MG HI AN TA A B SI 65 10 12 02 30 30 EA 99 MC Ac MV 86 -0 -[address] 75 KE ti 20 6- 8- 00 SI 41 NV ve TA 05 20 20 DE E TI 33 08 08 JR N 0 PH 40 AR [place] MA LL MG CY IA M TA OF F BL CY ET NT HI AN A 60 12 12 00 12 3 EA 10 MC Ac 25 -0 -1 0. ST 54 KE ti 80 4- 8- 00 SI 81 NV ve 23 20 20 0 DE E 91 08 08 JR 6 PH AR WI MA LL CY IA M OF F CY NT HI AN A NE 00 08 12 03 30 30 EA 99 MC Ac XI 18 -2 -[address] 22 KE ti UM 65 6- 8- 00 SI 45 NV ve 04 [address] 03 08 08 JR 1 PH 40 AR WI MA LL MG CY IA M CA OF F PS CY UL NT E HI AN A CL 00 10 12 01 60 30 EA 99 MC Ac ON 09 -1 -[address] 81 KE ti AZ 30 0- 8- 00 SI 89 NV ve EP 83 20 20 DE E AM 20 08 08 JR 1 PH 0. AR WI 5 MA LL MG CY IA M TA OF F BL CY ET NT HI AN A AM 68 12 [...] CY OF CY NT HI AN A 63 12 12 00 10 5 EA 10 JU Ac 82 -0 -[address] 52 DY ti 40 3- 8- 00 SI 61 ve 00 20 20 DE NA 82 08 08 TA 0 PH LI AR E MA E CY OF CY NT HI AN A SI 65 10 11 01 30 30 EA 99 MC Ac MV 86 -0 -[address] 75 KE ti 20 6- 0- 00 SI 41 NV ve TA 05 20 20 DE E TI 33 08 08 JR N 0 PH 40 AR WI MA LL MG CY IA M TA OF F BL CY ET NT HI AN A CL 00 10 11 00 60 30 EA 99 MC Ac ON 09 -1 -[address] 81 KE ti AZ 30 0- 0- 00 SI 89 NV ve EP 83 20 20 DE E AM 20 08 08 JR 1 PH 0. AR WI 5 MA LL MG CY IA M TA OF F BL CY ET NT HI AN A ME 49 11 11 00 30 30 EA 10 MC Ac TO 88 -0 -[address] 14 KE ti DE 40 5- 0- 00 SI 65 NV ve OL 40 20 20 DE E OL 50 08 08 JR 1 PH GALLAGHER AR WI CC MA LL CY IA ER M OF F 50 CY NT MG HI AN TA A B LE 00 11 11 00 30 30 EA 10 MC Ac VO 37 -1 -[address] 21 KE ti TH 81 0- 0- 00 SI 64 NV ve YR 80 20 20 DE E OX 30 08 08 JR IN 1 PH E AR WI 50 MA LL CY IA MC M G OF F TA CY BL NT ET HI AN A NE 00 08 11 02 30 30 EA 99 MC Ac XI 18 -2 -[address] 22 KE ti UM 65 6- 7- 00 SI 45 NV ve 04 [address] 03 08 08 JR 1 PH 40 AR WI MA LL MG CY IA M CA OF F PS CY UL NT E HI AN A SI 65 10 10 [...] NT ET HI AN A ME 49 07 10 03 30 30 EA 98 No Ac TO 88 -0 -[address] 58 t ti DE 40 1- 3- 00 SI 13 Av ve OL 40 20 20 DE ai OL 50 08 08 la 1 PH bl GALLAGHER AR e CC MA CY ER OF 50 CY NT MG HI AN TA A B CL 00 08 10 02 60 30 [...] NT E HI AN A CL 00 08 09 [...] -0 -[address] 58 t ti DE 40 1- 1- 00 SI 13 Av ve OL 40 20 20 DE ai OL 50 08 08 la 1 PH bl GALLAGHER AR e CC MA CY ER OF 50 CY NT MG HI AN TA A B LI 00 04 09 04 30 30 EA 97 No Ac PI 07 -2 -[address] 74 t ti TO 10 5- 1- 00 SI 98 Av ve R 15 [...] CY UL NT E HI AN A LI 00 04 08 03 30 30 EA 97 No Ac PI 07 -2 -[address] 74 t ti TO 10 5- 4- 00 SI 98 Av ve R 15 20 20 DE ai 10 52 08 08 la 3 PH bl MG AR e MA TA CY BL ET OF CY NT HI AN A CL 00 08 08 00 60 30 EA 98 No Ac ON 09 -0 -[address] 99 t ti AZ 30 7- 4- 00 SI 54 Av ve EP 83 20 20 DE ai AM 20 08 08 la 1 PH bl 0. AR e 5 MA MG CY TA OF BL CY ET NT HI AN A DE 37 08 08 00 30 30 EA 98 No Ac IL 00 -0 -[address] 92 t ti OS 00 1- 4- 00 SI 56 Av ve EC 45 20 20 DE ai 50 08 08 la OT 2 PH bl C AR e 20 MA .6 CY MG OF CY TA NT BL HI ET AN A TO 00 07 08 01 30 30 EA 98 No Ac DE 18 -0 -[address] 58 t ti OL 61 1- 4- 00 SI 13 Av ve 09 20 20 DE ai XL 00 08 08 la 5 PH bl 50 AR e MA MG CY TA OF BL CY ET NT HI AN A LE 00 07 08 01 30 30 EA 98 No Ac VO 37 -0 -[address] 66 t ti TH 81 9- 4- 00 SI 05 Av ve YR 80 20 20 DE ai OX 30 08 08 la IN 1 PH bl E AR e 50 MA CY MC G OF TA CY BL NT ET HI AN A 00 06 07 00 30 30 EA 98 No Ac 04 -3 -[address] 56 t ti 50 0- 7- 00 SI 08 Av ve 63 20 20 DE ai 96 08 08 la 5 PH bl AR e MA CY OF CY NT HI AN A DE 37 04 07 03 30 30 EA 97 No Ac IL 00 -0 -[address] 45 t ti OS 00 2- 7- 00 SI 42 Av ve EC 45 20 20 DE ai 50 08 08 la OT 2 PH bl C AR e 20 MA .6 CY MG OF CY TA NT BL HI ET AN A LI 00 04 07 02 30 30 EA 97 No Ac PI 07 -2 -[address] 74 t ti TO 10 5- 7- 00 SI 98 Av ve R 15 20 20 DE ai 10 52 08 08 la 3 PH bl MG AR e MA TA CY BL ET OF CY NT HI AN A TO 00 07 07 00 30 30 EA 98 No Ac DE 18 -0 -[address] 58 t ti OL 61 1- 7- 00 SI 13 Av ve 09 20 [...] 9- 7- 00 SI 06 Av ve DE 50 20 20 DE ai AM 98 08 08 la 8 PH bl HB AR e R MA 40 CY MG OF CY TA NT BL HI ET AN A CL 00 07 07 00 60 30 EA 98 No Ac ON 09 -0 -[address] 66 t ti AZ 30 9 7- 00 SI 04 Av ve EP 83 20 20 DE ai AM 20 08 08 la 1 PH bl 0. AR e 5 MA MG CY TA OF BL CY ET NT HI AN A EN 60 07 07 00 12 30 EA 98 No Ac DO 95 -0 -[address] 66 t ti CE 10 9- 7- 00 SI 03 Av ve T 70 20 20 0 DE ai 7. 07 08 08 la 5- 0 PH bl 32 AR e 5 MA MG CY TA OF BL CY ET NT HI AN A EN 60 06 07 [...] ET NT HI AN A LE 00 06 [...] CY BL NT ET HI AN A DE 37 04 06 02 30 30 EA [...] 01 30 30 EA 97 No Ac DE 18 -2 -[address] 75 t [...] BL CY ET NT HI AN A DE 37 04 05 01 30 30 EA 97 No Ac IL 00 -0 -[address] 45 t ti OS 00 2- 2- 00 SI 42 Av ve EC 45 20 20 DE ai 50 08 08 la OT 2 PH bl C AR e 20 MA .6 CY MG OF CY TA NT BL HI ET AN A EN 60 05 05 00 [...] NT HI AN A LE 00 03 05 01 [...] 00 30 30 EA 97 No Ac DE 18 -2 -[address] 75 t [...] 0. ST 56 t ti CE 10 SI 82 Av ve T 70 20 [...] ET OF CY NT HI AN A LI 63 07 04 02 30 30 EA 93 No Ac DO 48 -1 -[address] 93 t ti DE 10 0 4 SI 06 Av ve RM 68 20 20 DE ai 70 07 08 la 5% 6 PH bl AR e PA MA TC CY H OF CY NT HI AN A 52 [...] .0 ST 56 t ti AZ 30 1 4- SI 83 Av ve EP 83 20 20 DE ai AM 20 08 08 la 1 PH bl 0. AR e 5 MA MG CY TA OF BL CY ET NT HI AN A LI 00 03 04 00 30 30 EA 97 No Ac PI 07 -2 -[address] 30 t ti TO 10 1- 7- 00 SI 66 Av ve R 15 20 20 DE ai 10 52 08 08 la 3 PH bl MG AR e MA TA CY BL ET OF CY NT HI AN A CI 55 03 04 00 15 30 EA 97 No Ac TA 11 -2 -[address] 38 t ti LO 10 7- 0- 00 SI 65 Av ve DE 34 20 20 DE ai AM 30 08 08 la 1 PH bl HB AR e R MA 20 CY MG OF CY TA NT BL HI ET AN A DE 37 04 04 00 30 30 EA [...] -2 -[address] 38 t ti DE 40 7- 0- 00 SI 67 Av ve OL 50 20 20 DE ai OL 61 08 08 la 8 PH bl TA AR e RT MA RA CY TE OF 25 CY NT MG HI AN TA A B 52 02 04 00 60 30 EA 96 No Ac 15 -2 -[address] 99 t ti 20 7- 7- 00 SI 67 Av ve 23 20 20 DE ai 62 08 08 la 1 PH bl AR e MA CY OF CY NT HI AN A 00 02 04 00 90 30 EA [...] 7- 5- 00 SI 25 Av ve DE 02 20 20 DE ai ED 20 08 08 la NI 7 PH bl SO AR e LO MA NE CY 4 OF MG CY NT DO HI SE AN PK A 00 01 03 00 7. 6 EA 96 No Ac 67 -1 -[address] 40 t ti 70 7- 5- 0 SI 24 Av ve 78 20 20 DE ai 40 08 08 la 5 PH bl AR e MA CY OF CY NT HI AN A VE 00 01 03 00 18 18 EA 96 No Ac NT 17 -0 -[address] 24 t ti OL 30 7- 4- 00 SI 61 Av ve IN 68 20 20 DE ai 22 08 08 la HF 0 PH bl A AR e 90 MA CY MC G OF IN CY NG NT LE HI R AN A DO 53 01 03 00 [...] MG NT HI CA AN P A 58 01 03 00 18 6 EA 96 No Ac 17 -0 -[address] 24 t ti 70 7- 4- 00 SI 59 Av ve 88 20 20 0 DE ai 10 08 08 la 7 PH bl AR e MA CY OF CY NT HI AN A Immunization Name Date Rout CVX Reac Dose Comm Prov Is Faci e tion ent ider Refu lity Give sed n IIV3 09-2 141 MCKE No MCKE 6-20 MAGALIE MAGALIE VACC 13 JR JR INE AREN SPLI T VIRU AREN S 0.5 ML DOSA GE IM USE Procedures Procedure DOS Code Location Performer Comment CREATININ 59433 [facility] E BLOOD [address] [facility] INC INC COLLECTIO 11626 [facility] S[facility] N VENOUS 7 [facility] [place]LOOD [place] [address] [facility] UREA 7 [facility] NITROGEN INC INC QUANTITAT RUPA DRUG TEST 82644 LAVINIA KATE PRSMV 7 NORMA TOWNSEND MD,PSC CHEMISTRY ANALYZERS DRUG TEST 54138 [facility] PRSMV 7 [facility] QUAL DIR INC INC OPTICAL OBS PER DAY DRUG 20509 [facility] S[facility] SCREENING 7 [facility] INC INC BENZODIAZ EPINES 1-12 ECG 60843 [facility] ROUTINE 7 [facility] ECG INC INC W/LEAST 12 LDS TRCG ONLY W/O I&R PRQ 57294 [facility] TRLUML 7 PHYSICIAN CORONARY S GROUP STENT W/ANGIO ONE ART/BRNCH CATH PLMT 90282 [facility] L HRT & 7 PHYSICIAN ARTS S GROUP W/NJX & ANGIO IMG S&I MYOCARDIA 42204 LIN[facility] L SPECT 7 [facility] MULTIPLE INC INC STUDIES CV STRS 87839 [facility] S[facility] TST [address] [facility] XERS&/OR INC INC RX CONT ECG TRCG ONLY TECHNETIU A9502 LINETTE LINETTE M TC-99M [address] [facility] TETROFOSM INC INC IN DX PER STUDY DOSE ECHO 70437 [facility] TTHRC R-T 7 [facility] 2D INC INC W/WOM-MOD E COMPL SPEC&COLR D ECG 01196 [facility] ROUTINE 7 [facility] ECG INC INC W/LEAST 12 LDS TRCG ONLY W/O I&R DRUG TEST 18840 LAVINIA KATE PRSMV 7 NORMA TOWNSEND MD,PSC CHEMISTRY ANALYZERS BLOOD 74203 LAVINIA KATE COUNT 7 DUKE TOWNSEND MD,PSC AUTO&AUTO DIFRNTL WBC COMPREHEN 67283 L[facility]IA KATE SIVE 7 BOBO [place] [address] LAV[facility]IA KATE GLUTAMYLT 7 BEKAH [place] [address] LAV[facility]IA KATE PHOSPHORU 7 Myron TOWNSEND MD,PSC INORGANIC BILIRUBIN 38178 LAVINIA KATE DIRECT 7 MD KRISTIAN,PSC HEPATOBIL 54852 [facility] SYST 7 [facility] IMAG INC INC INC GB W/PHARMA INTERVENJ TECHNETIU A9537 [facility] M TC-99M 7 [facility] MEBROFENI INC INC N DX UP TO 15 MCI ECG 52853 [facility] ROUTINE 7 [facility] ECG INC INC W/LEAST 12 LDS TRCG ONLY W/O I&R ECG 81008 [facility] ROUTINE 7 [facility] ECG INC INC W/LEAST 12 LDS TRCG ONLY W/O I&[place] [address] [facility] ABDOMEN & 7 [facility] PELVIS INC INC W/O CONTRAST MATERIAL BLOOD 54147 [facility] COUNT 7 [facility] COMPLETE INC INC AUTO&AUTO DIFRNTL WBC COMPREHEN 03424 [facility] SIVE 7 [facility] [address] [facility] SUE TROPONIN 7 [facility] [address] [facility] LIPASE 7 [facility] INC INC FINAL G9551 LEONEL LICEA REPR ABD 7 MEDICAL IMAG STS IMAGING W/O ASS INCIDNT FND LES NTD: CREATINE 55831 [facility] KINASE 7 [facility] TOTAL INC INC FINAL G9638 LEONEL LICEA REPORTS 7 MEDICAL W/O DOC IMAGING 1/[place] [address] [facility] AMYLASE 7 [facility] INC INC CREATINE 66872 [facility] S[facility] KINASE MB 7 [facility] FRACTION INC INC ONLY THER 19034 [facility] PROPH/DX 7 [facility] NJX IV INC INC PUSH SINGLE/1S T SBST/DRUG RADIOLOGI 13476 [facility] C EXAM 7 [facility] CHEST 2 INC INC VIEWS FRONTAL&L ATERAL ECG 16057 LINETTE MCCLAIN ROUTINE 7 [facility] W/LEAST P 12 LDS I&R ONLY CT LUMBAR 35074 LEONEL LICEA SPINE 7 MEDICAL W/O IMAGING CONTRAST ASS MATERIAL FINAL G9638 LEONEL LICEA REPORTS 7 MEDICAL W/O DOC IMAGING 1/MORE ASS DOSE REDUCTION TECH FINAL G9551 LEONEL LICEA REPR ABD 7 MEDICAL IMAG STS IMAGING W/O ASS INCIDNT FND LES NTD: COMPREHEN 49510 [facility] SIVE 7 [facility] METABOLIC INC INC PANEL BLOOD 81359 [facility] SUE COUNT 7 [facility] COMPLETE INC INC AUTO&AUTO DIFRNTL WBC URNLS DIP 27153 [facility] SUE 7 [facility] STICK/TAB INC [place] [address] LEONEL LICEA ABDOMEN & 7 MEDICAL PELVIS IMAGING W/O ASS CONTRAST MATERIAL RADEX 31520 [place] NATH[place] SPINE 7 LUMBOSACR CHIROPRAC AL 2/3 TIC CENTE VIEWS RADEX 43957 [place] SPINE 7 CERVICAL CHIROPRAC 2 OR 3 TIC CENTE VIEWS CHIROPRAC 62174 [place] TIC 7 MANIPULAT CHIROPRAC RUPA TX TIC CENTE SPINAL 3-4 REGIONS APPL 76279 [place] NATHAN MODALITY 7 1/> AREAS CHIROPRAC ELEC TIC CENTE STIMJ UNATTENDE D DRUG TEST 36053 [facility] VERMAON PRSMV 7 [facility] QUAL DIR INC INC OPTICAL OBS PER DAY DRUG TEST 79259 LAVINIA KATE PRSMV 7 NORMA TOWNSEND MD,[facility] CHEMISTRY ANALYZERS RADEX 36610 [facility] SUE ABDOMEN 7 [facility] COMPL INC INC W/DCBTS&/ ERC VIEWS IAADIADOO 61378 LINETTE LINETTE 7 [facility] INFLUENZA INC INC RADIOLOGI 53248 ELONEL ZULLY C EXAM 7 MEDICAL CHEST 2 IMAGING VIEWS ASS FRONTAL&L ATERAL DRUG TEST G0480 [place] SUE DEFINITV [address] [facility] [address] ID INC INC METH P DAY 1-7 DRUG CL DRUG TEST 53498 [facility] SUE PRSMV 7 [facility] QUAL DIR INC INC OPTICAL OBS PER DAY HEPATIC 23767 [facility] SUE FUNCTION 7 [facility] PANEL INC INC LIPID 39733 LINETTE LINETTE PANEL 7 [facility] INC INC COLLECTIO 56723 [facility] SUE N VENOUS 7 [facility] BLOOD INC INC VENIPUNCT URE BASIC 44214 LIN[facility]TE VERMAON METABOLIC 7 [facility] PANEL INC INC CALCIUM TOTAL HEMOGLOBI 94339 [facility] SUE N 7 [facility] GLYCOSYLA INC INC SONG A1C ECG 48773 LINETTE LINETTE ROUTINE 7 [facility] ECG INC INC W/LEAST 12 LDS TRCG ONLY W/O I&R DRUG TEST 93138 [facility]TE VERMAON PRSMV 7 [facility] QUAL DIR INC INC OPTICAL OBS PER DAY DRUG TEST G0480 LINETTE LINETTE DEFINITV [address] [facility] [address] ID INC INC METH P DAY 1-7 DRUG CL CREATINE 99877 [facility] SUE KINASE 7 [facility] TOTAL INC INC FINAL RPT G[address]/MRI 7 MEDICAL CHEST/NCK IMAGING /U/S NO ASS THR NOD<1.0 CM COLLECTIO 74179 LINETTE LINETTE N VENOUS 7 [facility] BLO[place] [address] [facility] SUE LIPASE 7 [facility] INC INC FINAL G9638 LEONEL DELAROSA REPORTS 7 MEDICAL W/O DOC IMAGING 1/MORE ASS DOSE REDUCTION TECH CREATINE 96230 LINETTE SUE KINASE MB 7 [facility] [place] [address] [facility] SUE AMYLASE 7 [facility] INC INC NATRIURET 75251 [facility] SUE IC 7 [facility] [place] [address] [facility] SUE TROPONIN 7 [facility] QUANTITAT INC INC RUPA FIBRIN 71356 [facility] SUE DGRADJ 7 [facility] PRODUCTS INC INC D-DIMER QUAL/SEMI TODD FINAL G9551 LEONEL DELAROSA REPR ABD 7 MEDICAL IMAG STS IMAGING W/O ASS INCIDNT FND LES NTD: COMPREHEN 16003 [facility] SUE SIVE 7 [facility] [address] [facility] S[facility] ANGIOGRAP 7 [facility] HY CHEST INC INC W/CONTRAS T/NONCONT RAST ECG 87209 [facility] SUE ROUTINE 7 [facility] ECG INC INC W/LEAST 12 LDS TRCG ONLY W/O I&[place] [address] LEONEL DELAROSA ABDOMEN 7 MEDICAL W/O IMAGING CONTRAST ASS MATERIAL URNLS DIP 15828 [facility] SUE 7 [facility] STICK/TAB INC INC LET REAGENT AUTO MICROSCOP Y CT THORAX 48032 LEONEL DELAROSA 7 MEDICAL W/CONTRAS IMAGING T ASS MATERIAL BLOOD 94252 LINETTE LINETTE COUNT 7 [facility] COMPLETE INC INC AUTO&AUTO DIFRNTL WBC RADIOLOGI 20112 LEONEL ZULLY C EXAM 7 MEDICAL CHEST 2 IMAGING VIEWS ASS FRONTAL&[place] [address] [facility] ANGIOGRAP 7 [facility] HY INC INC ABDOMEN W/CONTRAS T/NONCONT RAST ECG 84479 LINETTE VERMAON ROUTINE 7 [facility] W/LEAST P P 12 LDS I&R ONLY BLOOD 17631 [facility] SUE COUNT 6 [facility] COMPLETE INC INC AUTO&AUTO DIFRNTL WBC COMPREHEN 68502 [facility] SUE SIVE 6 [facility] [place] [address] [facility] SUE THYROID 6 [facility] STIMULATI INC INC NG HORMONE TSH HEMOGLOBI 02953 LIN[facility]TE SUE N 6 [facility] GLYCOS[place] [address] LIN[facility]TE SUE THYROXINE 6 [facility] TOTAL INC INC HEPATITIS 60996 LIN[facility]TE SUE C 6 [facility] [place] [address] LINETTE SUE AMYLASE 6 [place] [address] LIN[facility] SUE LIPASE 6 [facility] INC INC COLLECTIO 32647 LIN[facility] SUE N VENOUS 6 [facility] BLOOD INC INC VENIPUNCT URE HEPATITIS 72862 [facility] SUE A 6 [facility] ANTIBODY INC INC HAAB DRUG TST G0477 [facility]TE SUE PRESUMP;C 6 [facility] PBL BEING INC INC READ DC OPT OBV ONLY HEPATITIS 81222 [facility] SUE B CORE 6 [facility] ANTIBODY INC INC HBCAB TOTAL HEPATITIS 71894 LINETTE Agarwal SURF 6 [facility] [place] [address] LIN[facility] SUE HEPATITIS 6 [facility] B INC INC SURFACE ANTIGEN DRUG TST G0477 [facility] SUE PRESUMP;C 6 [facility] PBL BEING INC INC READ DC OPT OBV ONLY DRUG TEST G0479 LAVINIA TOWNSEND 6 KRISTIAN, PRESUMP;I ,PSC NSTRUMENT ED CHEMISTRY ANLYZER CREATINE 12447 LIN[facility]TE SUE KINASE MB 6 [facility] [place] [address] LIN[facility] SUE AMYLASE 6 [facility] INC INC CREATINE 19222 [facility] SUE KINASE 6 [facility] TOTAL INC INC COLLECTIO 02520 [facility] SUE N VENOUS 6 [facility] [place] [address] [facility] SUE LIPASE 6 [facility] INC INC FIBRIN 53073 LIN[facility] SUE DGRADJ 6 [facility] PRODUCTS INC INC D-DIMER QUAL/[place] [address] [facility]UE TROPONIN 6 [facility] QUANTITAT INC INC RUPA NATRIURET 61733 [facility] SUE IC 6 [facility] PEPTIDE INC INC COMPREHEN 77969 [facility] SUE SIVE 6 [facility] METABOLIC INC INC PANEL BLOOD 14020 [facility] SUE COUNT 6 [facility] COMPLETE INC INC AUTO&AUTO DIFRNTL WBC CT THORAX 35508 LEONEL ZULLY 6 MEDICAL BUBBA W/CONTRAS IMAGING T ASS MATERIAL RADIOLOGI 41834 [facility] SUE C 6 [facility] EXAMINATI INC INC ON CHEST [place] FRONTAL ECG 59690 [facility] SUE ROUTINE 6 [facility] ECG INC INC W/LEAST 12 LDS TRCG ONLY W/O I&[place] [address] LINETTEKING SUE ANGIOGRAP 6 [facility] HY CHEST INC INC W/CONTRAS T/NONCONT RAST ECG 99878 LINETTE MCCLAIN ROUTINE 6 [facility] W/LEAST P 12 LDS I&R ONLY DRUG TST G0477 LIN[facility]TE SUE PRESUMP;C 6 [facility] PBL BEING [place] [address] [facility] SUE CERVICAL 6 [facility] SPINE W/[place] [address] LIN[facility] SUE HEAD/BRAI 6 [facility] N W/O INC INC CONTRAST MATERIAL RADEX 28819 [facility] S[facility] SHOULDER 6 [facility] COMPLETE INC INC MINIMUM 2 VIEWS THERAPEUT 11257 [facility] SUE IC 6 [facility] PROPHYLAC INC INC TIC/DX INJECTION SUBQ/IM ANES 01529 [facility] LOWER 6 ANESTH INTESTINE OF THE [place]UE [place] [address] [facility], SETTEMBRE SURG 6 [facility] PATHOLOGY GROSS&CHARLEY ROSCOPIC EXAM COLSC FLX 08001 [facility] SUE W/RMVL 6 [facility] OF TUMOR INC INC POLYP LESION SNARE TQ GLUC BLD 09543 [facility] SUE GLUC MNTR 6 [facility] DEV INC INC CLEARED FDA SPEC HOME USE DRUG TST G0477 [facility] SUE PRESUMP;C 6 [facility] PBL BEING INC INC READ DC OPT OBV ONLY COL-CHR/M 19025 LIN[facility]TE Sanches NONDRUG 6 [facility] ANALYTE INC INC CARLINE QUAL/TODD EA SPEC DRUG 62899 [facility] SUE SCREEN [address] [facility] LIST A INC INC SINGLE DRUG CLASS METHOD DRUG 31878 [facility] SUE SCREENING [address] [facility] INC INC BENZODIAZ EPINES 1-12 LIPID 50327 LINETTE SUE PANEL [address] [facility] INC INC PROSTATE G0103 LIN[facility]TE SUE CANCER [address] [facility] SCREENING INC INC ; PSA TEST BLOOD 42913 LINETTE SUE COUNT [address] [facility] COMPLETE INC INC AUTO&AUTO DIFRNTL WBC HEMOGLOBI 20933 LINETTE SUE N [address] [facility] GLYCOSYLA [place] [address] LIN[facility] SUE THYROID [address] [facility] STIMULATI INC INC NG HORMONE TSH COMPREHEN 89216 LINETTE SUE SIVE [address] [facility] METABOLIC INC INC PANEL COLLECTIO 72840 LINETTE SUE N VENOUS [facility] BLOOD [place] [address] LINETTE SUE THYROXINE [address] [facility] TOTAL INC INC INJECTION J1885 [facility] [place] 6 PHYSICIAN CHARLEY KETOROLAC S GROUP TROMETHAM INE PER 15 MG THERAPEUT 40816 [facility] [place] IC 6 PHYSICIAN CHARLEY PROPHYLAC S GROUP TIC/DX INJECTION SUBQ/IM INJECTION J1100 [facility] [place] 6 PHYSICIAN CHARLEY DEXAMETHO S GROUP SONE SODIUM PHOSPHATE 1 MG INJECTION J1100 [facility] [place] 6 PHYSICIAN CHARLEY DEXAMETHO S GROUP SONE SODIUM PHOSPHATE 1 MG THERAPEUT 15702 [facility] [place] IC 6 PHYSICIAN CHARLEY PROPHYLAC S GROUP TIC/DX INJECTION SUBQ/IM THERAPEUT 65714 [facility] [place] IC 6 PHYSICIAN EUG PROPHYLAC S GROUP TIC/DX INJECTION SUBQ/IM INJECTION J0696 [facility] [place] 6 PHYSICIAN EUG CEFTRIAXO S GROUP NE SODIUM PER 250 MG INJECTION 71709 BOYD LE LB 6 MD JERMAINE, SINGLE/ML PSC T TRIGGER POINT 1/2 MUSCLES DRUG TEST G0481 [facility]TE SEU DEFINITV [address] [facility] ID INC INC METH P DAY 8-14 DRUG CL DRUG TST G0477 LIN[facility]TE SUE PRESUMP;C 6 [facility] PBL BEING INC INC READ DC OPT OBV ONLY MRI BRAIN 48318 [facility] SUE BRAIN 6 [facility] STEM W/O INC INC W/CONTRAS T MATERIAL INJECTION A9576 [facility] SUE 6 [facility] GADOTERID INC INC OL PROHANCE MULTIPACK PER ML COLLECTIO 86191 [facility] SUE N VENOUS 6 [facility] BLOOD INC INC VENIPUNCT URE CREATININ 36059 LINETTE VERMAON E BLOOD 6 [place] [address] LINETTE SUE UREA 6 [facility] NITROGEN INC INC QUANTITAT RUPA MRI BRAIN 26078 [facility] SUE BRAIN 6 [facility] STEM W/O INC INC CONTRAST MATERIAL DUPLEX 30272 [facility] SUE SCAN 6 [facility] EXTRACRAN INC INC IAL ART COMPL BI [facility] G0463 LINETTE VERMAON OUTPATIEN 6 [facility] T CLIN INC INC VISIT ASSESS & MGMT PT BASIC 64086 LIN[facility]TE SUE METABOLIC 6 [facility] [place] [address] LINETTE BECKETT CO HEAD/BRAI 6 [facility] HEALTH N W/O INC DEPARTMEN CONTRAST T MATERIAL BLOOD 40389 [facility] COUNT 6 [facility] COMPLETE INC INC AUTO&AUTO DIFRNTL WBC INJECTION J2405 [facility] 6 [facility] ONDANSETR INC INC ON HCL PER 1 MG THER 00012 [facility] PROPH/DX 6 [facility] NJX IV INC INC PUSH SINGLE/1S T SBST/DRUG THERAPEUT 87923 [facility] IC 6 [facility] INJECTION INC INC IV PUSH EACH NEW DRUG INJECTION J1030 [facility] 6 [facility] METHYLPRE INC INC DNISOLONE ACETATE 40 MG FLUOR 71719 BOYD LE LB NEEDLE/CA 6 MD JERMAINE, TH PSC SPINE/PAR ASPINAL DX/THER ADDON LOCM Q9966 [facility] [phone] [facility] MG/ML INC INC IODINE [place] NJX [address] BOYD LE LB DX/THER 6 MD JERMAINE, SBST PSC EPIDURAL/ SUBRACH CERV/THOR ACIC HEPATOBIL 20835 [facility] SYST 6 [facility] IMAG INC INC INC GB W/PHARMA INTERVENJ INJECTION J2805 [facility]UE 6 [facility] SINCALIDE INC INC 5 MICROGRAM S TECHNETIU A9537 [facility] SUE M TC-99M 6 [facility] MEBROFENI INC INC N DX UP [place] [address] [place] [address] [place] [facility] ALL ABDOMINAL 5 MEDICAL REAL IMAGING TIME ASS W/IMAGE LIMITED GLUC BLD 18851 [facility]UE GLUC MNTR 5 [facility] DEV INC INC CLEARED FDA SPEC HOME USE CUL BACT 47141 [facility] XCPT 5 [facility] URINE INC INC BLOOD/[place] [address] [facility] STREPTOCO 5 [facility] [place] [address] [place] RETROPERI 5 MEDICAL BUBBA TONEAL IMAGING REAL TIME ASS W/[place] [address] [facility] RETROPERI 5 [facility] TONEAL INC INC REAL TIME W/IMAGE COMPLETE E-STIM G0283 [facility]ET[facility] SUE 1/> AREAS 5 [facility] OTH THAN INC INC WND CARE PART TX PLAN APPLICATI 48313 [facility] ON 5 [facility] MODALITY INC INC 1/> AREAS HOT/COLD PACKS APPL 16422 [facility] MODALITY 5 [facility] 1/> AREAS INC INC ULTRASOUN D EA 15 MIN APPL 91139 [facility] MODALITY 5 [facility] 1/> AREAS INC INC 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 L PHYSICAL 61846 [facility] S[facility] THERAPY 5 [facility] EVALUATIO INC INC N OPHTH 02651 [facility] 5 XM&EVAL COMPRHNSV ESTAB PT 1/> INJECTION J1030 [facility]UE 5 [facility] METHYLPRE INC INC DNISOLONE ACETATE 40 MG INJECTION 57696 BOYD DEAN MD, SINGLE/ML PSC T TRIGGER POINT 1/2 MUSCLES INJECTION 71058 [facility]UE 5 [facility] SINGLE/ML INC INC T TRIGGER POINT 3/> MUSCLES PSYCHIATR 05380 COMPREHEN MINEER IC 5 D INC EDELMIRA DIAGNOSTI C EVALUATIO N INJECTION 53510 [facility]UE 5 [facility] SINGLE/ML INC INC T TRIGGER POINT 3/> MUSCLES INJECTION 64192 FREDY COON 5 SINGLE/ML T TRIGGER POINT 1/2 MUSCLES INJECTION J1030 [facility] SUE 5 [facility] METHYLPRE INC INC [place] [address] [place] [address] [facility] HEAD/BRAI 5 MEDICAL DAREN N W/[place] [address] [facility] CERVICAL 5 MEDICAL DAREN SPINE W/O IMAGING CONTRAST ASS MATERIAL RADEX 01320 [facility] SPINE 5 MEDICAL DAREN THORACIC IMAGING 2 VIEWS ASS ROGELIO 06443 LINETTE CALI POST-VOID 5 [facility] RESIDUAL P URINE&/BL [facility] G0463 [facility] SUE OUTPATIEN 5 [facility] T CLIN INC INC VISIT ASSESS & MGMT [place] 50913 [facility] ROUTINE 5 [facility] ECG INC INC W/LEAST 12 LDS TRCG ONLY W/O I&R ECG 82262 [facility] ROUTINE 5 CULAR MAT ECG CONSULTAN W/LEAST TS O 12 LDS I&R ONLY ECHO 80673 [facility] SUE TTHRC R-T 5 [facility] 2D INC INC W/WOM-MOD E COMPL SPEC&COLR D CV STRS 98661 [facility] PHYSICIAN VENITA XERS&/OR S GROUP RX CONT ECG W/O I&R CV STRS 56047 [facility] TST 5 [facility] XERS&/OR INC INC RX CONT ECG TRCG ONLY TECHNETIU A9500 LINETTE Barrientos TC-99M 5 [facility] SESTAMIBI INC INC DX PER STUDY DOSE MYOCARDIA 66152 LIN[facility] SUE L SPECT 5 [facility] MULTIPLE INC INC STUDIES ECG 11058 [facility] ROUTINE 5 [facility] ECG INC INC W/LEAST 12 LDS TRCG ONLY W/O I&R ECG 61123 CARDIOVAS CHAYO ROUTINE 5 CULAR MAT ECG CONSULTAN W/LEAST TS O 12 LDS I&R ONLY LIPID 82635 [facility] SUE PANEL 5 [place] [address] [facility]UE THYROXINE 5 [facility] [place] [address] LIN[facility] SUE THYROID 5 [facility] STIMULATI INC INC NG HORMONE TSH BASIC 37146 LIN[facility] SUE METABOLIC 5 [facility] PANEL INC INC CALCIUM TOTAL COMPREHEN 18369 [facility] SUE SIVE 5 [facility] [address] LINET[facility] SUE TROPONIN 5 [facility] QUANTITAT INC INC RUPA CREATINE 10020 LINETTE SUE KINASE MB 5 [facility] FRACTION INC INC ONLY CREATINE 59630 LINETTE SUE KINASE 5 [facility] TOTAL INC INC GROUND A0425 [facility] 5 AMBULANCE AMBULANCE PER SERVICE SERVICE STATUTE MILE BLOOD 89754 LIN[facility] SUE COUNT 5 [facility] COMPLETE INC INC AUTO&AUTO DIFRNTL WBC RADIOLOGI 21080 [facility] L[facility]A C 5 MEDICAL DAREN EXAMINATI IMAGING [place] [address] LEONEL LICEA HEAD/BRAI 5 MEDICAL DAREN N W/O IMAGING CONTRAST ASS MATERIAL ECG 40681 [facility] ROUTINE 5 [facility] ECG INC INC W/LEAST 12 LDS TRCG ONLY W/O I&R CRITICAL 14561 LINETTE SUE CARE 5 [facility] ED P P PATIENT INIT 30-74 MIN AMB A0427 [facility] SERVICE 5 AMBULANCE AMBULANCE ALS SERVICE SERVICE EMERGENCY TRANSPORT LEVEL 1 ECG 39261 LINETTE SUE ROUTINE 5 [facility] W/LEAST P P 12 LDS I&[place] [address] [facility] ZULLY ANGIOGRAP 4 MEDICAL BUBBA HY IMAGING ABDOMEN ASS W/CONTRAS T/NONCONT RAST LOCM Q9967 LINETTE LINETTE 300-399 4 [facility] MG/ML INC [place] [address] LINETTE SUE HEAD/BRAI 4 [facility] N W/O INC INC CONTRAST MATERIAL COLLECTIO 67516 [facility] SUE N VENOUS [address] [facility] BLOOD INC INC VENIPUNCT URE CREATININ 76482 LINETTE SUE E BLOOD 4 [place] [address] LINETTE SUE UREA 4 [facility] NITROGEN INC INC QUANTITAT RUPA THERAPEUT 75743 [facility] CHAGO IC 4 PHYSICIAN CHARLEY PROPHYLAC S GROUP TIC/DX INJECTION SUBQ/IM INJECTION J0696 [facility] CHAGO 4 PHYSICIAN CHARLEY CEFTRIAXO S GROUP NE SODIUM PER 250 MG INJECTION J1040 [facility] 4 PHYSICIAN PHYSICIAN METHYLPRE S GROUP S GROUP DNISOLONE ACETATE 80 MG RADIOLOGI 86742 [facility] ZULLY C 4 MEDICAL BUBBA EXAMINATI IMAGING ON CHEST ASS SINGLE VIEW FRONTAL FOR DIAB A5512 [facility] ONLY MX 4 DNSITY INSRT DIR FORMD PRFAB EA DIAB ONLY A5500 [facility] FIT CSTM 4 PREP&SPL SHOE MX DNSITY INSRT THERAPEUT 46892 LIN[facility]TE SUE IC 4 [facility] PROPHYLAC INC INC TIC/DX INJECTION SUBQ/IM CT LUMBAR 07855 ZULLY ANDREA SPINE 4 BUBBA BUBBA W/O CONTRAST MATERIAL THER 58664 LINETTE SUE PROPH/DX 4 [facility] NJX IV INC INC PUSH SINGLE/1S T SBST/[place] [address] ZULLY ZULLY ABDOMEN & 4 BUBBA BUBBA PELVIS W/O CONTRST 1/> BODY RE BLOOD 58881 LINETTE VERMAON COUNT 4 [facility] COMPLETE INC INC AUTO&AUTO DIFRNTL WBC ECG 76631 LIN[facility] SUE ROUTINE 4 [facility] ECG INC INC W/LEAST 12 LDS TRCG ONLY W/O I&[place] [address] LINETTE LINETTE ABDOMEN & [address] [facility] PELVIS INC INC W/O CONTRAST MATERIAL FIBRIN 66680 LINETTE SUE DGRADJ 4 [facility] PRODUCTS INC INC D-DIMER QUAL/[place] [address] [facility] SUE TROPONIN [address] [facility] QUANTITAT INC INC RUPA PROTHROMB 22722 LINETTE SUE IN TIME [address] [facility] INC INC COMPREHEN 86434 LIN[facility] SUE SIVE [address] [facility] METABOLIC INC INC PANEL CREATINE 66628 LINETTE SUE KINASE [address] [facility] TOTAL INC INC CREATINE 84630 LINETTE SUE KINASE MB [address] [facility] FRACTION INC INC ONLY THROMBOPL 08534 LINETTE SUE ASTIN [address] [facility] TIME INC INC PARTIAL PLASMA/WH OLE BLOOD THER 10762 LINETTE SUE PROPH/DX [address] [facility] NJX IV INC INC PUSH SINGLE/1S T SBST/DRUG RADIOLOGI 90264 LINETTE SUE C EXAM [address] [facility] CHEST 2 INC INC VIEWS FRONTAL&L ATERAL ECG 79603 CHAZ WARE ROUTINE 4 BRO BRO ECG W/LEAST 12 LDS I&R ONLY DRUG SCR G0434 VITA HAM VITA HAM NOT 4 CHROMATOG RAPHIC; ANY NUMBER PT ENC COMPREHEN 94687 LINETTE SUE SIVE 3 [facility] [place] [address] LINETTE SUE THYROID 3 [facility] STIMULATI INC INC NG HORMONE TSH BLOOD 95995 LINETTE SUE COUNT 3 [facility] COMPLETE INC INC AUTO&AUTO DIFRNTL WBC ADMINISTR G0008 NATHALY ANDERSEN ATION OF 3 JR AREN YOUNGER INFLUENZA VIRUS VACCINE IM ADM 18695 RUTKEMIE RUTKEMIE PRQ ID 3 JR AREN YOUNGER SUBQ/IM NJXS 1 VACCINE IM ADM 69755 RUTKEMIE RUTKEMIE PRQ ID 3 JR AREN YOUNGER SUBQ/IM NJXS EA VACCINE IIV3 26293 RUTKEMIE MCKEMIE VACCINE 3 JR AREN YOUNGER SPLIT VIRUS 0.5 ML DOSAGE IM USE INJECTION J3301 NATHALY CRMIE 3 JR AREN YOUNGER TRIAMCINO LONE ACETONIDE NOS 10 MG THERAPEUT 10490 LINETTE SUE IC 3 [facility] PROPHYLAC INC INC TIC/DX INJECTION SUBQ/IM LIPID 85393 LINETTE SUE PANEL 3 [place] [address] LINETTE SUE THYROID 3 [facility] STIMULATI INC INC NG HORMONE TSH COMPREHEN 75699 LINETTE SUE SIVE 3 [facility] [address] LINETTE SUE UREA 3 [facility] NITROGEN INC INC QUANTITAT RUPA CREATININ 59992 LINETTE SUE E BLOOD 3 [facility] INC INC INJECTION A9576 LINETTE SUE 3 [facility] GADOTERID INC INC OL PROHANCE MULTIPACK PER ML MRI BRAIN 57942 LINETTE SUE BRAIN 3 [facility] STEM W/O INC INC W/CONTRAS T MATERIAL 3D 25290 LINETTE SUE RENDERING 3 [facility] W/INTERP INC INC & POSTPROCE SS SUPERVISI ON MRI 53561 LINETTE SUE SPINAL 3 [facility] CANAL INC INC CERVICAL W/O CONTRAST MATRL APPL 39265 LINETTE SUE MODALITY 3 [facility] 1/> AREAS INC INC ELEC STIMJ UNATTENDE D APPL 01354 LINETTE VERMAON MODALITY 3 [facility] 1/> AREAS INC INC 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 L APPLICATI 99556 LINETTE VERMAON ON 3 [facility] MODALITY INC INC 1/> AREAS HOT/COLD PACKS APPLICATI 25520 LINETTE SUE ON 3 [facility] MODALITY INC INC 1/> AREAS HOT/COLD PACKS APPL 29459 LINETTE SUE MODALITY 3 [facility] 1/> AREAS INC INC ULTRASOUN D EA 15 MIN APPL 14956 LINETTE SUE MODALITY 3 [facility] 1/> AREAS INC INC 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 L APPL 62937 LINETTE SUE MODALITY 3 [facility] 1/> AREAS INC INC ELEC STIMJ UNATTENDE D PHYSICAL 31471 LINETTEKING VERMAON THERAPY [address] [facility] EVALUATIO INC INC N INJECTION J3301 LINETTE LINETTE [address] [facility] TRIAMCINO INC INC LONE ACETONIDE NOS 10 MG THERAPEUT 01209 LINETTE SUE IC 3 [facility] PROPHYLAC INC INC TIC/DX INJECTION SUBQ/IM CUL BACT 07179 LINETTE SUE STOOL [address] [facility] AEROBIC INC INC ISOL SALMONELL A&SHIGELL OVA&DERRICK 48524 LINETTE SUE ITES [address] [facility] DIRECT INC INC SMEARS CONCENTRA TION & ID SMR PRIM 59363 LINETTE SUE SRC [address] [facility] GRAM/GIEM INC INC SA STAIN BCT FUNGI/[place] [address] LINETTE SUE CLOSTRIDI 3 [facility] UM INC INC DIFFICILE TOXIN BLOOD 54878 LINETTE SUE OCCULT [address] [facility] PEROXIDAS INC INC E ACTV QUAL FECES 1-3 [place] [address] LINETTE SUE TROPONIN 3 [facility] QUANTITAT INC INC RUPA CREATINE 26496 LINETTE SUE KINASE MB 3 [facility] FRACTION INC INC ONLY CREATINE 96565 LINETTE SUE KINASE 3 [facility] TOTAL INC INC ECG 68815 LINETTE SUE ROUTINE 3 [facility] ECG INC INC W/LEAST 12 LDS TRCG ONLY W/O I&R ECG 68703 JOHNY MCCLAIN ROUTINE 3 CAMILLA CAMILLA ECG W/LEAST 12 LDS I&R ONLY RADEX 13451 ZULLY ZULLY SHOULDER 3 BUBBA BUBBA COMPLETE MINIMUM 2 VIEWS RADIOLOGI 78400 ZULLY ZULLY C EXAM 3 BUBBA BUBBA CHEST 2 VIEWS FRONTAL&L ATERAL URNLS DIP 62588 MCKEMIE MCKEMIE 3 JR AREN JR AREN STICK/TAB LET RGNT NON-AUTO W/[place] [address] ZULLY ZULLY ABDOMEN & 3 BUBBA BUBBA PELVIS W/O CONTRAST MATERIAL ECG 96524 LINETTE USE ROUTINE 3 [facility] ECG INC INC W/LEAST 12 LDS TRCG ONLY W/O I&R 3D 52256 LINETTE SUE RENDERING 3 [facility] INC INC W/INTERP& POSTPROC DIFF WORK STATION BLOOD 68313 LINETTE SUE COUNT 3 [facility] COMPLETE INC INC AUTO&AUTO DIFRNTL WBC URNLS DIP 09314 [facility]TE SUE 3 [facility] STICK/TAB INC INC [place] [address] LINETTE SUE LIPASE 3 [facility] INC INC CREATINE 02734 LINETTE SUE KINASE 3 [facility] TOTAL INC INC CREATINE 14467 LINETTE SUE KINASE MB 3 [facility] [place] [address] LINETTE SUE AMYLASE 3 [place] [address] LINETTE SUE TROPONIN 3 [facility] QUANTITAT INC INC RUPA COMPREHEN 49826 LINETTE SUE SIVE 3 [facility] METABOLIC INC INC PANEL ECG 23319 CHAGO ANDERS ROUTINE 3 CHARLEY CHARLEY ECG W/LEAST 12 LDS I&R ONLY INJECTION J2405 [facility]ETTE SUE 3 [facility] ONDANSETR INC INC ON HCL PER 1 [place] [address] LINETTE SUE INFUSION 3 [facility] THERAPY/P INC INC ROPHYLAXI S /DX 1ST TO 1 HR THERAPEUT 10031 LINETTE SUE IC 3 [facility] INJECTION INC INC IV PUSH EACH NEW DRUG COMPREHEN 31524 LINETTE SUE SIVE 3 [facility] METABOLIC INC INC PANEL LIPID 31389 LINETTE SUE PANEL [address] [facility] INC INC PROSTATE G0103 LINETTE SUE CANCER 3 [facility] SCREENING INC INC ; PSA TEST BLOOD 69045 LINETTE SUE COUNT [address] [facility] COMPLETE INC INC AUTO&AUTO DIFRNTL WBC ECG 64755 LINETTE ANDERSEN ROUTINE 3 [facility] W/LEAST P 12 LDS I&R ONLY ECG 44450 CHAGO ANDERS ROUTINE 3 CHARLEY CHARLEY ECG W/LEAST 12 LDS I&R ONLY BLOOD 20838 LINETTE SUE COUNT [address] [facility] COMPLETE INC INC AUTO&AUTO DIFRNTL WBC 3D 73482 LINETTE SUE RENDERING [address] [facility] INC INC W/INTERP& POSTPROC DIFF WORK STATION RADIOLOGI 26415 LINETTE SUE C 3 [facility] EXAMINATI INC INC ON CHEST SINGLE VIEW FRONTAL URNLS DIP 12852 LINETTE SUE 3 [facility] STICK/TAB INC INC LET REAGENT AUTO MICROSCOP Y ECG 71938 LINETTE SUE ROUTINE [address] [facility] ECG INC INC W/LEAST 12 LDS TRCG ONLY W/O I&[place] [address] LINETTE SUE ABDOMEN & 3 [facility] PELVIS INC INC W/O CONTRAST MATERIAL COMPREHEN 09324 LINETTE SUE SIVE [address] [facility] [place] [address] LINETTE [facility]UE TROPONIN [address] [facility] QUANTITAT INC INC RUPA BLOOD 58434 LINETTE SUE OCCULT 3 [facility] PEROXIDAS INC INC E ACTV QUAL FECES 1-3 [place] [address] LINETTE SUE AMYLASE 3 [facility] INC INC CREATINE 87179 LINETTE SUE KINASE MB 3 [facility] FRACTION INC INC ONLY CREATINE 97678 LINETTE SUE KINASE 3 [facility] TOTAL INC INC IAADI 23327 LINETTE SUE INFLUENZA 3 [facility] B VIRUS INC INC IAADI 16459 LINETTE SUE INFFLUENZ 3 [facility] [place] [address] LINETTE SUE LIPASE 3 [facility] INC INC CYSTO 96997 LINETTE SUE BLADDER [address] [facility] W/URETERA INC INC L CATHETERI ZATION CYSTOURET 02412 CALI LEIVA HROSCOPY 2 ART ART URETHROCY 25645 LINETTE SUE STOGRAPHY [facility] INC INC RETROGRAD E RS&I UROGRAPHY 89156 LEONEL ANDREA IV W/WO 2 MEDICAL BUBBA KUB W/WO IMAGING TOMOGRAPH ASS Y ANES 68386 [facility] TRANSURET 2 ANESTH LOLY HRAL OF THE W/URETH[place] [address] LINETTE S[address] UREA [address] [facility] NITROGEN INC INC QUANTITAT RUPA CREATININ 23669 LINETTE SUE E BLOOD 2 [facility] INC INC URNLS DIP 56497 CALI LEIVA 2 ART ART STICK/TAB LET RGNT NON-AUTO W/O MICRSCP LOCM Q9967 LINETTE SUE 300-[address] [facility] MG/ML INC [place] [address] LINETTE SUE ABDOMEN & 2 [facility] PELVIS INC INC W/O CONTRST 1/> BODY RE PROSTATE G0103 LINETTE SUE CANCER [address] [facility] SCREENING INC INC ; [place] [address] LINETTE SUE TESTOSTER 2 [facility] ONE TOTAL INC INC BASIC 07887 LINETTE SUE METABOLIC 2 [facility] PANEL INC INC CALCIUM TOTAL URNLS DIP 04804 LEIVA LEIVA 2 ART ART STICK/TAB LET RG[place] [address] ZULLY ZULLY RETROPERI 2 BUBBA BUBBA TONEAL REAL TIME W/IMAGE COMPLETE URNLS DIP 87790 JAMA YUN 2 NAN NAN STICK/TAB LET RGNT NON-AUTO W/O MICRSCP LIPID 12891 LINETTE SUE PANEL 2 [facility] INC INC COMPREHEN 59251 LINETTE SUE SIVE 2 [facility] METABOLIC INC INC PANEL HEMOGLOBI 86856 LINETTE SUE N 2 [facility] GLYCOSYLA INC INC SONG A1C URNLS DIP 43954 JAMA YUN 2 NAN NAN STICK/TAB LET RGNT NON-AUTO W/O MICRSCP OPHTHALMO 98240 NICK ROMERO SCPY 2 JAM JAM EXTENDED RETINAL DRAWING I&R 1ST DETERMINA 81052 NICK ROMERO TION 2 JAM JAM REFRACTIV E STATE MYOCARDIA 00766 LAUREN FALLUJI L SPECT 2 VENITA VENITA MULTIPLE STUDIES MYOCARDIA 36004 LINETTE SUE L SPECT [address] [facility] MULTIPLE INC INC STUDIES CV STRS 26856 LINETTE SUE TST 2 [facility][NOTE 3]&/OR [facility] RX CONT P P ECG I&R ONLY CV STRS 76304 SELMA HAHN [facility] TST 2 XERS&/OR RX CONT ECG W/O I&R CV STRS 32949 LINETTE SUE TST 2 [facility] XERS&/OR INC INC RX CONT ECG TRCG ONLY TECHNETIU A9502 LINETTE Barrientos TC-99M [address] [facility] TETROFOSM INC INC IN DX PER STUDY DOSE OBSERVATI 82345 JOHNY MCCLAIN ON CARE 2 [place] [address] LINETTE SUE TROPONIN 2 [facility] QUANTITAT INC INC RUPA CREATINE 07005 LINETTE SUE KINASE 2 [facility] TOTAL INC INC HOSPITAL G0378 LINETTE LINETTE OBSERVATI 2 [facility] ON INC INC SERVICE PER HOUR CREATINE 23350 LINETTE LINETTE KINASE MB 2 [facility] FRACTION INC INC ONLY CREATINE 01366 LINETTE LINETTE KINASE MB 2 [facility] FRACTION INC INC ONLY HOSPITAL G0378 LINETTE LINETTE OBSERVATI 2 [facility] ON INC INC SERVICE PER HOUR CREATINE 43675 LINETTE SUE KINASE 2 [facility] [place] [address] LINETTE LINETTE LIPASE 2 [place] [address] LINETTE SUE TROPONIN 2 [facility] QUANTITAT INC INC RUPA BASIC 14029 LINETTE SUE METABOLIC 2 [facility] PANEL INC INC CALCIUM TOTAL COMPREHEN 54922 LINETTE LINETTE SIVE 2 [facility] METABOLIC INC INC PANEL 3D 26401 LINETTE SUE RENDERING 2 [facility] W/INTERP INC INC & [place] [address] LEONEL ANDREA HEAD/BRAI 2 MEDICAL BUBBA N W/O IMAGING CONTRAST ASS MATERIAL ECG 23950 LINETTE SUE ROUTINE 2 [facility] ECG INC INC W/LEAST 12 LDS TRCG ONLY W/O I&R INITIAL 68219 NATHALY ANDERSEN OBSERVATI 2 JR AREN JR AREN ON CARE/DAY 30 MINUTES RADIOLOGI 86487 LINETTE SUE C 2 [facility] EXAMINATI INC INC ON CHEST SINGLE VIEW FRONTAL BLOOD 24610 LINETTE SUE COUNT 2 [facility] COMPLETE INC INC AUTO&AUTO DIFRNTL WBC CT ORBIT 50599 LEONEL MILLERUTCHER SELLA/POS 2 MEDICAL BUBBA T IMAGING FOSSA/EAR ASS W/O CONTRAST MATRL ECG 64546 BETH CAMPOS ROUTINE 2 III AREN III AREN ECG W/LEAST 12 LDS I&R ONLY PRESSURIZ 89262 LINETTE SUE ED/NONPRE 2 [facility] SSURIZED INC INC INHALATIO N TREATMENT RHYTHM 93308 LINETTE SUE ECG 1-3 2 [facility] LEADS INC INC TRACING ONLY W/O I&R [facility] 40672 EDGE DONNIE EDGE DONNIE MICROGRAP 2 HIC H/N/H/F/G 1ST STAGE 5 BLOCKS ANES 09589 [facility] IN[facility]G 2 ANESTHESI [facility] L NRV HEAD NECK&POST ERIOR TRUNK ADJT TIS 31628 ODALYS MORROW LB TRNSFR/RE 2 ARRGMT E/N/E/L DFCT 10 SQ CM/< SUTR WND 05931 ODALYS LB ODALYS LB EYELID/MA 2 RGIN/TARS US/CONJUN C FULL THICK BLOOD 01002 LINETTE SUE COUNT 2 [facility] COMPLETE INC INC AUTO&AUTO DIFRNTL WBC LIPID 64449 LINETTE SUE PANEL 2 [facility] INC INC COMPREHEN 00107 LINETTE SUE SIVE 2 [facility] METABOLIC INC INC PANEL HEMOGLOBI 87159 LINETTE SUE N 2 [facility] GLYCOSYLA INC INC SONG A1C CREATINE 01261 LINETTE SUE KINASE MB 2 [facility] [place] [address] LINETTE SUE TROPONIN 2 [facility] QUANTITAT INC INC RUPA BASIC 76612 LINETTE SUE METABOLIC 2 [facility] PANEL INC INC CALCIUM TOTAL CREATINE 17355 LINETTE SUE KINASE 2 [facility] TOTAL INC INC URNLS DIP 81588 LINETTE SUE 2 [facility] STICK/TAB INC INC LET REAGENT AUTO MICROSCOP Y BLOOD 10201 LINETTE SUE COUNT 2 [facility] COMPLETE INC INC AUTO&AUTO DIFRNTL WBC 3D 46309 LINETTE SUE RENDERING 2 [facility] W/INTERP INC INC & [place] [address] LINETTE SUE HEAD/BRAI 2 [facility] N W/O INC INC CONTRAST MATERIAL ECG 73755 LINETTE SUE ROUTINE 2 [facility] ECG INC INC W/LEAST 12 LDS TRCG ONLY W/O I&R RHYTHM 58588 LINETTE SUE ECG 1-3 2 [facility] LEADS INC INC TRACING ONLY W/O I&R ECG 52265 BETH CHAMAN ROUTINE 2 III AREN III AREN ECG W/LEAST 12 LDS I&[place] [address] ZULLY ZULLY MAXILLOFA 2 BUBBA BUBBA CIAL W/O CONTRAST MATERIAL RADIOLOGI 10328 ZULLY ZULLY C EXAM 2 BUBBA BUBBA CHEST 2 VIEWS FRONTAL&L ATERAL ECG 18962 BARAHONA MICHELLE BARAHONA MICHELLE ROUTINE 1 ECG W/LEAST 12 LDS I&R ONLY RHYTHM 41338 LINETTE SUE ECG 1-[address] [facility] LEADS INC INC TRACING ONLY W/O I&R PRESSURIZ 67843 LINETTE SUE ED/NONPRE 1 [facility] SSURIZED INC INC INHALATIO N TREATMENT ECG 87489 LINETTE SUE ROUTINE [address] [facility] ECG INC INC W/LEAST 12 LDS TRCG ONLY W/O I&R BLOOD 68945 LINETTE LINETTE COUNT [address] [facility] COMPLETE INC INC AUTO&AUTO DIFRNTL WBC RADIOLOGI 34797 [place] ZULLY C 1 MEDICAL BUBBA EXAMINATI IMAGING ON CHEST ASS SING[place] VIEW FRONTAL CREATINE 85939 LINETTE SUE KINASE [address] [facility] [place] [address] [place] [facility] TROPONIN [address] [facility] QUANTITAT INC INC RUPA COMPREHEN 80410 [place] [address] SIVE [address] [facility] METABOLIC INC INC PANEL CREATINE 59470 [place] SUE KINASE MB [facility] FRACTION INC INC ONLY EXC 12949 ODALYS ANDREWSEN LB LESION 1 EYELID W/O CLSR/W/SI MPLE DIR CLOSURE INCISIONA 23315 ODALYS ANDREWSEN LB L BIOPSY 1 EYELID SKIN & LID MARGIN THERAPEUT 21185 [place] [facility] IC 1 [facility] INTERNAL INTERNAL TIC/DX MED MED INJECTION SUBQ/IM XTRNL 16914 ODALYS LB ODALYS LB OCULAR 1 PHOTOG W/I&R [facility] MEDICAL PROGRE OPHTH 75322 ISHA [facility] MEDICAL 1 VISION XM&EVAL COMPRHNSV ESTAB PT 1/> [place] [address] NEW LENA ABDOMINAL 1 [place] [facility] TIME PSC W/[place] [address] NEW LENA RETROPERI 1 [facility] REAL TIME PSC W/IMAGE LIMITED LIPID 56798 COMBINED COMBINED PANEL 1 PHYSICIAN PHYSICIAN S LA S LA HEMOGLOBI 37212 COMBINED COMBINED N 1 PHYSICIAN PHYSICIAN GLYCOSYLA S LA S LA SONG A1C GENERAL 50537 COMBINED COMBINED HEALTH 1 PHYSICIAN PHYSICIAN PANEL S LA S LA MRI BRAIN 29834 [place] BRAIN 1 [facility] STEM W/O IMAGING CONTRAST ASS MATERIAL 3D 55454 [place] Z[place] RENDERING 1 MEDICAL [facility] W/INTERP IMAGING & ASS POSTPROCE SS SUPERVISI ON MRI 66944 [place] SPINAL 1 [facility] CANAL IMAGING CERVICAL ASS W/O CONTRAST MATRL RADIOLOGI 20672 [place] C EXAM 1 [facility] CHEST 2 IMAGING VIEWS ASS FRONTAL&L ATERAL ECG 70257 [facility]OLODY[facility]AMP[facility] ROUTINE 1 EMERGENCY III AREN ECG SERVICES W/LEAST 12 LDS I&R ONLY 3D 16756 [place] RENDERING 1 MED[facility] W/INTERP IMAGING & [place] [address] [place] HEAD/BRAI 1 MEDICAL BUBBA N W/O IMAGING CONTRAST ASS MATERIAL ECG 92258 [facility] ROUTINE 1 [facility] ECG INC INC W/LEAST 12 LDS TRCG ONLY W/O I&R BLOOD 57433 [facility]UE COUNT 1 [facility] COMPLETE INC INC AUTO&AUTO DIFRNTL WBC BASIC 62825 [facility] SUE METABOLIC 1 [facility] [place]EL [place] [address] [place] S[address]OP[address] [facility] QUANTITAT INC INC RUPA CREATINE 40465 LIN[place] SUE KINASE MB [facility] FRACTION INC INC ONLY CREATINE 93[address] [facility] [facility] [address]IN[address] [facility] TOTAL INC INC BASIC 26788 [place] SUE METABOLIC 1 [facility] PANEL INC INC CALCIUM TOTAL BLOOD 14364 [address] COUNT [address] [facility] COMPLETE INC INC AUTO&AUTO DIFRNTL WBC LIPID 56144 [place] [address] PANEL [address] [facility] INC INC ECHO 49426 LINETTE SUE TTHRC R-T 1 [facility] 2D INC INC W/WOM-MOD E COMPL SPEC&COLR D OTHER 4513 LINETTE LINETTE ENDOSCOPY 1 [facility] [place] [address] [place] SUE INFUSION 1 [facility] THERAPY INC INC PROPHYLAX IS/DX EA HOUR ESOPHAGOG 71211 C CELESTINO ADAME ASTRODUOD 1 DEEP ARREOLA MD [facility] TRANSORAL DIAGNOSTI C SWALLOWIN 85473 LEONEL ANDREA G FUNCJ 1 MEDICAL [facility] W/CINERAD IMAGING IOGRAPY/[place] [address] LEONEL ANDREA HEAD/BRAI 1 MEDICAL BUB[facility] N W/O IMAGING CONTRAST ASS MATERIAL ECG 63384 LINETTE SUE ROUTINE 1 [facility] ECG INC INC W/LEAST 12 LDS TRCG ONLY W/O I&R 3D 83490 LEONEL ANDREA RENDERING 1 MEDICAL BUB[facility] W/INTERP IMAGING & ASS POSTPROCE SS SUPERVISI ON AMB A0427 DAVID HERNANDEZ SERVICE 1 [facility] ALS SERVICE SERVICE EMERGENCY TRANSPORT LEVEL 1 AMB A0422 DAVID HERNANDEZ OXYGEN&O2 1 [facility] SUPPLIES SERVICE SERVICE [place] [address] LEONEL ANDREA ABDOMEN & 1 MEDICAL B[facility] PELVIS IMAGING W/O ASS CONTRAST MATERIAL RADIOLOGI 43815 LEONEL ZULLY C 1 MEDICAL BUBBA EXAMINATI IMAGING ON CHEST ASS SINGLE VIEW FRONTAL 3D 69732 LINETTE SUE RENDERING 1 [facility] INC INC W/INTERP& POSTPROC DIFF WORK STATION URNLS DIP 79520 [facility] SUE 1 [facility] STICK/TAB INC INC LET REAGENT AUTO MICROSCOP Y ALS A0398 DAVID HERNANDEZ ROUTINE 1 [facility]ANCE DISPOSABL SERVICE SERVICE E SUPPLIES GROUND A0425 DAVID HERNANDEZ MILEAGE 1 AMBULANCE AMBULANCE PER SERVICE SERVICE STATUTE MILE BLOOD 31948 [facility] COMPLETE INC INC AUTO&AUTO DIFRNTL WBC BASIC 40355 [facility] SUE METABOLIC [address] [facility] PANEL [place] [address] [facility] S[address] TROPONIN [address] [facility] QUANTITAT INC INC RUPA CREATINE 95675 LINETTE SUE KINASE MB [address] [facility] FRACTION INC INC ONLY CREATINE 92204 [facility] S[facility] KINASE 1 [place] [address] [facility] [address] INFUSION [address] [facility] THERAPY/P INC INC ROPHYLAXI S /DX 1ST TO 1 HR ECG 60925 LIN[facility]TE MCKEMIE ROUTINE 1 [facility] W/LEAST P 12 LDS I&R ONLY SYPHILIS 96024 [facility] SUE TEST 1 [facility] NON-TREPO INC [place] [address] [facility] S[facility] THYROID 1 [facility] STIMULATI INC INC NG HORMONE TSH SEDIMENTA 09109 [facility] SUE TION RATE 1 [facility] RBC INC INC NON-AUTOM ATED COMPREHEN 41661 [facility] SIVE 1 [facility] METABOLIC INC INC PANEL BLOOD 79175 [facility] S[facility] COUNT 1 [facility] COMPLETE INC INC AUTO&AUTO DIFRNTL WBC CUL BACT 50533 [facility] SUE AEROBIC [address] [facility] ADDL INC INC METHS DEFINITIV E EA ISOL CUL BACT 85119 [facility] SUE XCPT 1 [facility] URINE INC INC BLOOD/STO OL AEROBIC ISOL SUSCEPTIB 92155 [facility] SUE LTY STDY 1 [facility] ANTIMICRB INC INC IAL MICRO/AGA R DILUTJ 3D 14732 [facility] SUE RENDERING 0 [facility] INC INC W/INTERP& [place] [address] [facility] SUE HEAD/BRAI 0 [facility] N W/O INC INC CONTRAST MATERIAL INITIAL 30105 SHASHY SHASHY INPATIENT 0 JAROD JAROD CONSULT NEW/ESTAB PT 55 MIN LARYNGOSC 27574 SHASHY SHASHY OPY 0 JAROD OLIVERA FLEXIBLE DIAGNOSTI C AMB A0422 DAVID [facility] OXYGEN&O2 0 AMBULANCE AMBULANCE SUPPLIES SERVICE [place] [address] [facility] ANGIOGRAP 0 MEDICAL BUBBA HY CHEST IMAGING W/CONTRAS ASS T/NONCONT RAST AMB A0427 [facility] SERVICE 0 AMBULANCE AMBULANCE ALS SERVICE SERVICE EMERGENCY TRANSPORT LEVEL 1 RAD[facility]OLOGI 93258 [facility] EXAMINATI IMAGING ON CHEST ASS SINGLE VIEW FRONTAL MYOCARDIA 02113 [facility] FALLUJI L SPECT 0 PHYSICIAN VENITA DONALDSON S GROUP STUDIES GROUND A0425 DAVID [facility] MILEAGE 0 AMBULANCE AMBULANCE PER SERVICE SERVICE STATUTE MILE 87780 [facility] 0 [facility] REAL TIME PSC W/IMAGE LIMITED BLOOD 08634 [facility] SUE COUNT 0 [facility] COMPLETE INC INC AUTO&AUTO DIFRNTL WBC BASIC 42650 [facility] S[facility] METABOLIC 0 [facility] PANEL INC INC [facility] G0378 [facility]UE OBSERVATI 0 [facility] ON INC INC SERVICE [facility] G0378 [facility] SUE OBSERVATI 0 [facility] ON INC INC SERVICE PER HOUR LEVEL III 76341 PATHOLOGY PATHOLOGY SURG 0 & & PATHOLOGY CYTOLOGY CYTOLOGY LAB LAB GROSS&[place] [address] LIN[facility] SUE AMYLASE 0 [facility] INC INC CREATINE 33418 [facility] SUE KINASE 0 [facility] [place] [address] [facility] SUE LIPASE 0 [facility] INC INC IAADI 09745 [facility] SUE INFFLUENZ 0 [facility] A A VIRUS INC INC IAADI 58402 [facility] SUE INFLUENZA 0 [facility] B VIRUS INC INC LAPAROSCO 04220 ALLRAN ALLRAN PIC 0 JR, JR, [place]ENDE[place] [address] [facility]UE TROPONIN 0 [facility] QUANTITAT INC INC RUPA COMPREHEN 07916 [facility] SUE SIVE 0 [facility] METABOLIC INC INC PANEL CREATINE 93169 LIN[facility] SUE KINASE MB 0 [facility] FRACTION INC INC ONLY BLOOD 14122 [facility] SUE COUNT 0 [facility] COMPLETE INC INC AUTO&AUTO DIFRNTL WBC URNLS DIP 39552 [facility] SUE 0 [facility] STICK/TAB INC INC LET REAGENT AUTO MICROSCOP Y 3D 35923 [place] ZULLY, RENDERING 0 [facility] IMAGING W/INTERP& ASSOCIATE POSTPROC S DIFF WORK STATION CT PELVIS 68975 [facility] ZULLY, W/O 0 [facility] CONTRAST IMAGING MATERIAL ASSOCIATE S RADEX ABD 78999 [place] ZULLY, COMPL 0 MEDICAL [facility] AQT ABD IMAGING W/S/E/D ASSOCIATE VIEWS 1 S VIEW CRITICAL 73226 [facility] 0 EMERGENCY III, ILL/INJUR SERVICES [facility] ED PATIENT ASSOCIATE INIT S 30-74 MIN ANESTHESI 88874 COMMUNITY Brigida VERA 0 ANESTH LALO A INTRAPERI OF THE T[facility] LOWER ABD W/LAPS NOS 3D 12344 [facility] SUE RENDERING 0 [facility] W/INTERP INC INC & [place] [address] [facility], HEAD/BRAI 0 MEDICAL O[facility] N W/[place] [address] [facility], ABDOMEN 0 MEDICAL [facility] W/O IMAGING CONTRAST ASSOCIATE MATERIAL S ECG 43060 [facility] SUE ROUTINE 0 [facility] HOSP ECG INC INC W/LEAST 12 LDS TRCG ONLY W/O I&R ECG 84554 LIN[facility]TE [place], ROUTINE 0 [facility] W/LEAST PROF SERV 12 LDS I&R ONLY RHYTHM 61455 LINETTE SUE ECG 1-3 0 [facility] LEADS INC INC TRACING ONLY W/O [place] [address] [facility] SUE INFUSION [address] [facility] THERAPY/P INC INC ROPHYLAXI S /DX 1ST TO 1 HR LAPAROSCO 4701 LINETTE SUE PIC 0 [facility] [place] [address] [facility] SUE INFUSION 0 [facility] THER INC INC PROPH ADDL SEQUENTIA L TO 1 HR BLOOD 74970 LIN[facility] SUE COUNT 0 [facility]OSP COMPLETE INC INC AUTO&AUTO DIFRNTL WBC LIPID 30134 [facility]UE PANEL [address] [facility] [place] [address] LIN[facility] SUE THYROID 0 [facility] HOSP STIMULATI INC INC NG HORMONE TSH COMPREHEN 03468 [facility] SUE SIVE [address] [facility] METABOLIC INC INC PANEL SPECIAL 21349 PATHOLOGY PATHOLOGY STAIN 9 & & GROUP 1 CYTOLOGY CYTOLOGY MICROORGA LAB LAB [facility] I&[place] [address] PATHOLOGY PATHOLOGY SURG 9 & & PATHOLOGY CYTOLOGY CYTOLOGY LAB LAB GROSS&[place] EX[place] 86003 [facility] [address] B[address] [facility] DILATION INC INC ESOPHAGUS <30 MM DIAM EGD 92081 GAIL SANCHEZ, TRANSORAL 9 MEDICAL ALEXIS BIOPSY SERV SINGLE/MU FOUNDATIO LTIPLE EGD 65539 GAIL SANCHEZ, INSERT 9 MEDICAL ALEXIS GUIDE SERV WIRE [place] [address] [facility] SUE INFUSION [address] [facility] THERAPY INC INC PROPHYLAX IS/DX EA HOUR ESOPHAGOG 4516 LIN[facility] SUE ASTRODUOD [address] [facility] ENOSCOPY INC INC WITH CLOSED BIOPSY DILATION 4292 LIN[facility]TE SUE OF 9 [facility] [place] [address] [facility] SUE INFUSION 9 [facility] THERAPY/P INC INC ROPHYLAXI S /DX 1ST TO 1 HR HEPATBL 61973 UMBERTO LI SYS 9 MED[facility] [place] [address] LIN[facility] SUE ABDOMINAL 9 [facility] REAL [place] TIME W/[place] [address] [place] LE[place], RETROPERI 9 [facility] A REAL TIME PSC W/IMAGE LIMITED LIPID 03802 [facility] SUE PANEL 9 [facility] INC INC RADIOLOGI 31882 Marbella LI 9 MEDICAL [facility] EXAMINATI IMAGING ON CHEST ASSOCIATE SINGLE S VIEW FRONTAL ECG 12326 [facility] SUE ROUTINE 9 [facility] ECG INC INC W/LEAST 12 LDS TRCG ONLY W/O I&R 3D 28099 LIN[facility]TE SUE RENDERING 9 [facility] W/INTERP INC INC & [place] [address] RONALD LIGRAP 9 MED[facility] HY CHEST IMAGING W/CONTRAS [place]OCI[place] [address] LEONEL ANDREA HEAD/BRAI 9 MED[facility] N W/O IMAGING CONTRAST ASSOCIATE MATERIAL S COMPREHEN 32504 [facility] SUE SIVE 9 [facility] METABOLIC INC INC PANEL BASIC 76887 [facility] SUE METABOLIC 9 [facility] PANEL INC INC CALCIUM TOTAL BLOOD 83973 LIN[facility] SUE COUNT 9 [facility] COMPLETE INC INC AUTO&[place] [address] LIN[facility]TE SUE TROPONIN 9 [facility] QUANTITAT INC INC RUPA CREATINE 18705 LINETTE SUE KINASE MB 9 [facility] FRACTION INC INC ONLY CREATINE 91794 [facility] SUE KINASE 9 [place] [address] [place] ZULLY, ANGIOGRAP 9 [facility] HY IMAGING ABDOMEN ASSOCIATE W/CONTRAS S T/NONCONT RAST ECG 33530 LINETTE MCCLAIN, ROUTINE 9 [facility] W/LEAST PROF SERV 12 LDS I&R ONLY DUPLEX 28562 [facility] SUE SCAN 9 [facility] EXTRACRAN INC INC IAL ART COMPL BI STUDY MRI BRAIN 23245 OLESYA C ZULLY, BRAIN 8 ZULLY OLESYA STEM W/O W/CONTRAS T MATERIAL LIPID 89644 [facility] SUE PANEL 8 [facility] INC INC COMPREHEN 99882 [facility] SUE SIVE 8 [facility] METABOLIC INC INC PANEL SPECIAL 08752 [facility] STAIN 8 [facility] GROUP 1 LABORATOR LABORATOR MICROORGA Y [place] NISMS I&[place] [address] [facility] SURG 8 [facility] PATHOLOGY LABORATOR LABORATOR Y Y GR[place] [address] [facility], ABDOMINAL 8 [place] [facility] REAL CLINIC [place] P[place] [address] [facility], RETROPERI 8 [place] [facility] REAL TIME PSC W/IMAGE LIMITED ANTIBODY 71988 [facility] HELICOBAC 8 CLINIC CLINIC TER LABORATOR LABORATOR PYLORI Y Y COLLECTIO 48820 [facility] N VENOUS 8 CLINIC CLINIC BLOOD LABORATOR LABORATOR VENIPUNCT Y Y URE CREATINE 53360 [facility] SUE KINASE 8 [facility] TOTAL INC INC THROMBOPL 46294 LIN[facility]TE SUE ASTIN 8 [facility] TIME INC INC PARTIAL PLASMA/WH OLE BLOOD BASIC 95748 LIN[facility]TE SUE METABOLIC 8 [facility] [place] [address] LIN[facility] SUE TROPONIN 8 [facility] QUANTITAT INC INC RUPA PROTHROMB 23330 LIN[facility] SUE IN TIME 8 [facility] INC INC CREATINE 94317 LINETTE SUE KINASE MB 8 [facility] FRACTION INC INC ONLY BLOOD 59409 [facility] SUE COUNT 8 [facility] COMPLETE INC INC AUTO&AUTO DIFRNTL WBC RADIOLOGI 62444 [facility] LOPEZ 8 MEDICAL CHAD P EXAMINATI IMAGING ON CHEST ASSOCIATE SINGLE S VIEW FRONTAL ECG 29437 [facility] SUE ROUTINE 8 [facility] ECG INC INC W/LEAST 12 LDS TRCG ONLY W/O I&[place] [address] LINETTE SUE ANGIOGRAP 8 [facility] HY INC INC ABDOMEN W/CONTRAS T/NONCONT RAST ECG 49051 LINETTE RAMONASON, ROUTINE 8 [facility] W/LEAST PROF SERV 12 LDS I&R ONLY RADEX 49685 [facility] SUE SPINE [address] [facility] LUMBOSACR INC INC AL MINIMUM 4 VIEWS OPHTH 52372 KANE [place], MEDICAL 8 MICHAEL A MICHAEL A XM&EVAL COMPRE NEW PT 1/> VST DUPLEX 76907 [facility]in ANDREA, SCAN 8 MED[facility] EXTRACRAN IMAGING IAL [place] [address] [place] ZULLY, CERVICAL 8 [facility] SPINE W/O [place] [address] [place] ZULLY, HEAD/BRAI 8 MEDICAL [facility] N W/O IMAGING CONTRAST ASSOCIATE MATERIAL S 3D 86392 [place] ZULLY, RENDERING 8 MEDICAL OLES[facility] W/INTERP IMAGING & ASSOCIATE POSTPROCE S SS SUPERVISI ON AMB A0427 [facility] SERVICE 8 AMBULANCE AMBULANCE ALS SERVICE SERVICE EMERGENCY TRANSPORT LEVEL 1 RADIOLOGI 41441 [facility] CITY[facility]bella PALENCIA 8 MEDICAL O[facility] EXAMINATI IMAGING ON CHEST ASSOCIATE SINGLE S VIEW FRONTAL 3D 62792 [place] ZULLY, RENDERING 8 MEDICAL OLES[facility] IMAGING W/INTERP& ASSOCIATE POSTPROC S DIFF WORK STATION GROUND A0425 [facility] MILEAGE 8 AMBULANCE AMBULANCE PER SERVICE SERVICE STATUTE MILE AMB A0422 [facility] OXYGEN&O2 8 AMBULANCE AMBULANCE SUPPLIES SERVICE SERVICE LIFE SUSTAININ G SITUATION THYROID 93691 [facility] [place] IMAGING 8 MEDICAL CHAD P W/UPTAKE IMAGING SINGLE ASSOCIATE DETERMINA S TION THYROID 91166 LINETTE SUE UPTAKE 8 [facility] SINGLE INC INC DETERMINA TION IODINE A9516 LINETTE SUE I-123 8 [facility] SODIUM INC INC IODIDE DX PER 100 UCI TO 999 ECG 92348 [facility]TE SUE ROUTINE 8 [facility] ECG INC INC W/LEAST 12 LDS TRCG ONLY W/O I&R URNLS DIP 96136 [facility] SUE 8 [facility] STICK/TAB INC INC LET REAGENT AUTO MICROSCOP Y CREATINE 98886 LINETTE SUE KINASE MB 8 [facility] FRACTION INC INC ONLY CREATINE 50441 LIN[facility] SUE KINASE 8 [facility] [place] [address] LINETTE SUE TROPONIN 8 [facility] QUANTITAT INC INC RUPA BLOOD 75434 LIN[facility] SUE COUNT 8 [facility] COMPLETE INC INC AUTO&AUTO DIFRNTL WBC COMPREHEN 19577 [facility] SUE SIVE 8 [facility] METABOLIC INC INC PANEL ECG 68119 LINETTE JOHNY, ROUTINE 8 [facility]PITAL W/LEAST PROF SERV 12 LDS I&R ONLY COLLECTIO 98504 [facility] N VENOUS 8 CLINIC CLINIC BLOOD LABORATOR LABORATOR VENIPUNCT Y Y URE URNLS DIP 32636 [facility] 8 CLINIC CLINIC STICK/TAB LABORATOR LABORATOR LET Y Y REAGENT AUTO MICROSCOP Y RENAL 20187 [facility] FUNCTION 8 CLINIC CLINIC PANEL LABORATOR LABORATOR Y Y ECG 81608 [facility] SUE ROUTINE 8 [facility] ECG INC INC W/LEAST 12 LDS TRCG ONLY W/O I&R OBSERVATI 19576 [facility] DISCHARGE INTERNAL MED MANAGEMEN T CREATINE 13554 LINETTE LINETTE KINASE 8 [facility] TOTAL INC INC CREATINE 02516 LINETTE SUE KINASE MB 8 [facility] FRACTION INC INC ONLY HOSPITAL G0378 LIN[facility] SUE OBSERVATI 8 [facility] [place] [address] LIN[facility] SUE TROPONIN 8 [facility] QUANTITAT INC INC RUPA ECG 15168 LIN[facility]TE [place], ROUTINE 8 [facility] W/LEAST PROF SERV 12 LDS I&R ONLY ECG 44914 [facility] [place], ROUTINE 8 [facility] W/LEAST PROF SERV 12 LDS I&R ONLY RHYTHM 46639 LINETTE SUE ECG 1-3 8 [facility] LEADS INC INC TRACING ONLY W/O I&[place] [address] LINETTE SUE TROPONIN 8 [facility] QUANTITAT INC INC RUPA PROTHROMB 87860 LINETTE SUE IN TIME 8 [facility] INC INC BASIC 31360 [facility] SUE METABOLIC 8 [facility] PANEL INC INC CALCIUM TOTAL BLOOD 25413 [facility] SUE COUNT 8 [facility] COMPLETE INC INC AUTO&AUTO DIFRNTL WBC CREATINE 39372 LINETTE SUE KINASE MB 8 [facility] FRACTION INC INC ONLY CREATINE 82766 LINETTE SUE KINASE 8 [facility] TOTAL INC INC ECG 24345 [facility] SUE ROUTINE 8 [facility] ECG INC INC W/LEAST 12 LDS TRCG ONLY W/O I&R RADIOLOGI 17947 [facility]bella LOPEZ 8 MEDICAL CHAD P EXAMINATI IMAGING ON CHEST ASSOCIATE SINGLE S VIEW FRONTAL INITIAL 66731 LISSY NICK 8 [place] ON INTERNAL CARE/DAY MED 30 MINUTES 3D 69526 [facility] CITYCRESCENCIO LOPEZ 8 MEDICAL CHAD P IMAGING W/INTERP& ASSOCIATE POSTPROC S DIFF WORK STATION CT THORAX 19810 Dawn LAWSON MEDICAL CHAD P W/CONTRAS IMAGING T ASSOCIATE MATERIAL S US SOFT 22381 LINETTE SUE TISSUE 8 [facility] HEAD & INC INC NECK REAL TIME IMGE DOCM CT PELVIS 89419 LIN[facility]TE SUE 8 [facility] W/CONTRAS INC INC T MATERIAL RADEX 01417 LINETTE SUE SPINE 8 [facility] CERVICAL INC [place] [address] [place] [address] [facility]in LUDY, ABDOMEN 8 MEDICAL CHAD P W/ROBERT IMAGING T ASSOCIATE MATERIAL S LIPID 01722 LINETTE SUE PANEL 8 [facility] INC INC CYANOCOBA 78260 LINETTE SUE JUAN 8 [facility] VITAMIN INC INC B-12 [place] [address] LINETTE SUE THYROXINE 8 [facility] TOTAL INC INC BLOOD 83574 LINETTE LINETTE COUNT 8 [facility] COMPLETE INC INC AUTO&AUTO DIFRNTL WBC COMPREHEN 79936 LINETTE SUE SIVE 8 [facility] [place] [address] LINETTE SUE FOLIC 8 [facility] ACID INC INC SERUM HEMOGLOBI 44954 LINETTE SUE N [address] [facility] GLYCOSYLA [place] [address] LINETTE SUE THYROID [address] [facility] STIMULATI [place] [address] LINETTE SUE TROPONIN 8 [facility] QUANTITAT INC INC RUPA BASIC 47621 LIN[facility] SUE METABOLIC 8 [facility] PANEL INC INC CALCIUM TOTAL BLOOD 84765 LINETTE SEU COUNT 8 [facility] COMPLETE INC INC AUTO&AUTO DIFRNTL WBC H[facility] G0378 LINETTE SUE OBSERVATI 8 [facility] ON INC INC SERVICE PER HOUR CREATINE 53882 LINETTE SUE KINASE MB 8 [facility] FRACTION INC INC ONLY CREATINE 81017 LINETTE SUE KINASE 8 [facility] TOTAL INC INC LIPID 38850 [facility] SUE PANEL 8 [facility] INC INC GROUND A0425 [facility]ULANCE AMBULANCE PER SERVICE SERVICE STATUTE MILE INJECTION 23859 [facility] MELINA, CARDIAC 8 HEART & AMADOR Y CATHJ L VASCULAR VENTR/L ASSOC ATR ANGIOGRAP H INITIAL 04973 [facility] MELINA, INPATIENT 8 HEART & AMADOR Y CONSULT VASCULAR NEW/ESTAB ASSOC PT 80 MIN ECG 12707 LIN[facility]TE SUE ROUTINE 8 [facility] ECG INC INC W/LEAST 12 LDS TRCG ONLY W/O I&R L HRT 28250 LEONEL SUMMERS CATHETERI 8 HEART & AMADOR Y ZATION VASCULAR [place] [address] LEONEL SUMMERS, C-CATHJ 8 HEART & AMADOR Y F/SLCTV C VASCULAR ANGRPH ASSOC I SI&R 19697 LEONEL SUMMERS, F/NJX PX 8 HEART & AMADOR Y DURING VASCULAR C-CATHJ ASSOC VENTR&/AT R ANGRPH I SI&R 47906 LEONEL SUMMERS, F/NJX PX 8 HEART & AMADOR Y DURING VASCULAR C-CATHJ ASSOC PULM&/OR SELECT NONINVASI 32004 LIN[facility]TE [address] VE [address] [facility] EAR/PULSE INC INC OXIMETRY SINGLE DETER ECG 93011 LEONEL FAMUJI, ROUTINE 8 HEART & NEZAR M ECG VASCULAR W/LEAST ASSOC 12 LDS I&R ONLY ECG 25717 LINETTE MCCLAIN, ROUTINE 8 [facility] W/LEAST PROF SERV 12 LDS I&R ONLY NONINVASI 51703 LINETTE SUE VE 8 [facility] EAR/PULSE INC INC OXIMETRY SINGLE DETER RHYTHM 02648 LINETTE SUE ECG 1-[address] [facility] LEADS INC INC TRACING ONLY W/O I&R RADIOLOGI 82138 LINETTE SUE C [address] [facility] EXAMINATI INC INC ON CHEST SINGLE VIEW FRONTAL ECG 71848 LIN[facility]TE SUE ROUTINE 8 [facility] ECG INC INC W/LEAST 12 LDS TRCG ONLY W/O I&R CREATINE 08166 LINETTE SUE KINASE 8 [facility] TOTAL INC INC CREATINE 50706 LINETTE SUE KINASE MB [address] [facility] FRACTION INC INC ONLY THROMBOPL 90170 LINETTE SUE ASTIN [address] [facility] TIME INC INC PARTIAL PLASMA/WH OLE BLOOD [facility] G0378 LINETTE SUE OBSERVATI 8 [facility]OS[facility] ON INC INC SERVICE PER HOUR BLOOD 90231 LINETTE SUE COUNT 8 [facility]OSP COMPLETE INC INC AUTO&AUTO DIFRNTL WBC COMPREHEN 29296 LINETTE SUE SIVE 8 [facility] HOSP METABOLIC INC INC PANEL NATRIURET 35322 LINETTE SUE IC 8 [facility] [place] [address] LINETTE SUE TROPONIN 8 [facility] HOSP QUANTITAT INC INC RUPA PROTHROMB 07478 LINETTE SUE IN TIME 8 [facility] HOSP INC [place] [address]19 OLESYA C ZULLY, SPINAL 8 ZULLY OLESYA CANAL LUMBAR W/O CONTRAST MATERIAL MRI 28394 OLESYA C ZULLY, SPINAL 8 ZULLY OLESYA CANAL CERVICAL W/O CONTRAST [facility] 12781 Brigida CALVILLO MD C OFFICE PSC OT/N REG SCHED HOURS Encounters Encounter Start End Date Code Location Performer Type Date [facility] LINETTE - 7 7 [facility] OUTPATIEN [facility] T OFFICE 17100 LAVINIA MCKEON 7 7 Kate TOWNSEND MD,[facility] 25 MINUTES [facility] LINETTE - 7 7 [facility] OUTPATIEN [facility] T OFFICE 03633 [facility] [place] OUTPATIEN 7 7 PHYSICIAN T [facility]ISIT S GROUP 40 MINUTES [facility] - 7 7 [facility] OUTPATIEN [facility] - 7 7 [facility] OUTPATIEN [facility] T OFFICE 31093 [facility] [place] OUTPATIEN 7 7 PHYSICIAN T VISIT S GROUP 40 MINUTES [facility] - 7 7 [facility] OUTPATIEN [facility] T OFFICE 13932 LAVINIA MCKEON 7 7 Kate TOWNSEND MD,[facility] 15 MINUTES [facility] 7 7 [facility] 7 7 [facility] T OFFICE 14987 [facility] [place] OUTPATIEN 7 7 PHYSICIAN T VISIT S GROUP 40 MINUTES OFFICE 98728 [facility] CB OUTPATIEN 7 7 PHYSICIAN T VISIT 5 S GROUP MINUTES [facility] T EMERGENCY 32009 DEMETRIS VIRK 7 7 PHYSICIAN JR DEPARTMEN S, [facility] T VISIT HIGH/URGE NT SEVERITY OFFICE 95014 [facility]IEN 7 7 [facility] 10 P MINUTES [facility] - 7 7 [facility] T EMERGENCY 12364 DEMET[facility]IS ANDERS DEPT 7 7 PHYSICIAN VISIT S, [facility] HIGH SEVERITY& THREAT FUNCJ EMERGENCY 76956 [facility] 7 7 [facility] DEPARTMEN INC T VISIT LOW/MODER SEVERITY OFFICE 87274 [facility] OUTPATIEN 7 7 T NEW 30 CHIROPRAC MINUTES [facility] - 7 7 [facility] OUTPATIEN INC T OFFICE 82879 L[facility] KATE OUTPATIEN 7 7 KRISTIAN T VISIT ,[facility] 25 MINUTES [facility] 7 7 [facility] T OFFICE 34092 [facility] 7 7 [facility] T VISIT 5 INC MINUTES [facility] 7 7 [facility] 7 [facility] INC T OFFICE 17210 [facility] [place] OUTPATIEN 7 7 PHYSICIAN T VISIT S GROUP 25 MINUTES [facility] 7 7 [facility] T [facility] 7 7 [facility] OUT[facility] INC T EMERGENCY 55232 [facility] 7 7 [facility] DEPARTMEN INC T VISIT MODERATE SEVERITY [facility] - 7 7 [facility] OUT[facility] INC T EMERGENCY 16469 DEM[facility]IS HUYNH DEPT 7 7 PHYSICIAN U VISIT S, [facility] HIGH SEVERITY& THREAT FUNCJ OFFICE 47213 [facility] LEIVA OUTPATIEN 7 7 [facility] VISIT HOSPITAL 15 P MINUTES OFFICE 31084 JANET ARACELILADAN OUTPATIEN 7 7 [facility] T VISIT MEDICAL 15 G MINUTES [facility] - 6 6 [facility] OUT[facility]EN INC [facility] - 6 6 [facility] OUT[facility] INC T OFFICE 65767 [facility] [place] OUTPATIEN 6 6 PHYSICIAN T VISIT S GROUP 25 MINUTES OFFICE 73065 [facility] TOWNSEND OUTPATIEN 6 6 Kate TOWNSEND MD,[facility] 25 MINUTES OFFICE 82720 [facility] LEIVA OUTPATIEN 6 6 [facility] T VISIT HOSPITAL 10 P MINUTES OFFICE 90111 KANE FERRARA OUTPATIEN 6 6 T VISIT 10 MINUTES EMERGENCY 56571 DEMET[facility]IS ANDERS DEPT 6 6 PHYSICIAN CHARLEY VISIT S, [facility] HIGH SEVERITY& THREAT FUNJ EMERGENCY 06537 [facility] 6 6 [facility] DEPARTMEN INC T VISIT HIGH/URGE NT SEVERITY [facility] - 6 6 [facility] OUT[facility] INC T OFFICE 22429 [facility] ALDANA OUTPATIEN 6 6 STEPHEN TOWNSEND MD,[facility] MINUTES [facility] - 6 6 [facility] OUTPATI[facility] INC T EMERGENCY 85963 DEMET[facility]IS [place] 6 6 PHYSICIAN CHARLEY DEPARTMEN S, [facility] T VISIT HIGH/URGE NT SEVERITY EMERGENCY 87800 [facility] 6 6 [facility] DEPARTMEN INC T VISIT MODERATE SEVERITY [facility] - 6 6 [facility] OUT[facility] INC T OFFICE 99853 [facility] CB TOD OUTPATIEN 6 6 PHYSICIAN T VISIT S GROUP 10 MINUTES [facility] - 6 6 [facility] INC T OFFICE 66335 [facility] CB TOD OUTPATIEN 6 6 PHYSICIAN T VISIT 5 S GROUP MINUTES OFFICE 72265 [facility] [place] OUTPATIEN 6 6 PHYSICIAN CHARLEY T VISIT S GROUP 15 MINUTES [facility] 6 6 [facility] [facility] T OFFICE 03289 [facility] [place] OUTPATIEN 6 6 PHYSICIAN MAT T VISIT S GROUP 25 MINUTES [facility] [address] [facility] T OFFICE 63476 [facility] CB TOD CONSULTAT 6 6 PHYSICIAN ION S GROUP NEW/ESTAB PATIENT 30 MIN OFFICE 08491 [facility] [place] OUTPATIEN 6 6 PHYSICIAN CHARLEY T VISIT S GROUP 10 MINUTES OFFICE 79222 [facility] [place] OUTPATIEN 6 6 PHYSICIAN CHARLEY T VISIT S GROUP 10 MINUTES OFFICE 68693 BOYD MCKEON 6 6 MD JERMAINE, T VISIT PSC 15 MINUTES OFFICE 87647 [facility] [place] OUTPATIEN 6 6 PHYSICIAN CHARLEY T VISIT S GROUP 10 MINUTES OFFICE 74775 BOYD MCKEON 6 6 MD JERMAINE, T VISIT PSC 15 MINUTES OFFICE 59724 PROGRESSI BANDAR OUTPATIEN 6 6 VE TEREZA T NEW 30 PODIATRY MINUTES OFFICE 67281 [facility] EDWARD OUTPATIEN 6 6 PHYSICIAN EUG T VISIT S GROUP 15 MINUTES [facility] T OFFICE 54242 BOYD BARRETT OUTPATIEN 6 6 MD JERMAINE, T VISIT PSC 25 MINUTES OFFICE 18914 [facility] 6 6 [facility] T VISIT INC 10 MINUTES [facility] OUT[facility]EN [facility] - 6 6 [facility]EN [facility] T OFFICE 03629 [place] CONSULTAT 6 6 MEDICAL THO ION SERV NEW/ESTAB FOUNDATIO PATIENT N 40 MIN OFFICE 07230 [facility] [place] Y T VISIT 5 HOSPITAL MINUTES [facility] T OFFICE 83982 SCIFRES SCIFRES OUTPATIEN 6 6 ANG ANG T VISIT 10 MINUTES OFFICE 95629 BOYD ASHER OUTPATIEN 6 6 MD JERMAINE, T VISIT PSC 15 MINUTES [facility] T [facility] T EMERGENCY 15167 DEMETRIS NIELSON DEPT 6 6 PHYSICIAN VISIT S, PLLC HIGH SEVERITY& THREAT FUNCJ EMERGENCY 53497 [facility] 6 6 [facility] DEPARTMEN INC T VISIT HIGH/URGE NT SEVERITY [facility] T [facility] 5 5 [facility] OUTPATIEN INC T EMERGENCY 67684 [facility] 5 [facility] T VISIT LOW/MODER SEVERITY EMERGENCY 03925 DEMETRIS MOREL 5 5 PHYSICIAN ESTRELLITAMEN , [facility] T VISIT MODERATE SEVERITY OFFICE 72235 ON LICENSE OF [facility] OUTPATIEN 5 5 PHYSICIAN [facility] T VISIT S GROUP 10 MINUTES OFFICE 05387 [facility] 5 [facility] T VISIT MEDICAL 15 G MINUTES [facility] 5 [facility] T OFFICE 70883 BOYD ASHER OUTPATIEN 5 5 MD JERMAINE, T VISIT PSC 15 MINUTES [facility] 5 [facility] 5 [facility] INC T OFFICE 09971 BOYD BARRETT OUTPATIEN 5 5 MD JERMAINE, T VISIT PSC 15 MINUTES [facility] 5 [facility] T OFFICE 91896 [facility] LEIVA OUTPATIEN 5 5 [facility] T VISIT HOSPITAL 10 P MINUTES EMERGENCY 48349 DEMETRIS HUYNH 5 5 PHYSICIAN Dee [facility] S, [facility] T VISIT HIGH/URGE NT SEVERITY OFFICE 28523 [facility] LEIVA OUTPATIEN 5 5 [facility] T VISIT HOSPITAL 15 P MINUTES [facility] - 5 5 [facility] T OFFICE 96086 FREDY PATTERSONX BUX ANJ OUTPATIEN 5 5 MD T VISIT 10 MINUTES [facility] T OFFICE 50754 CARDIOVAS [facility] OUTPATIEN 5 5 CULAR MAT T VISIT CONSULTAN 15 TS O MINUTES OFFICE 25635 FREDY DEAN BUX ANJ OUTPATIEN 5 5 MD T NEW 30 MINUTES [facility] T OFFICE 23646 CARDIOVAS [facility] OUTPATIEN 5 5 CULAR MAT T NEW 45 CONSULTAN MINUTES TS O [facility] 5 [facility] T [facility] - [facility] 5 [facility] INC T OFFICE 46116 ON LICENSE OF [facility] OUTPATIEN 5 5 PHYSICIAN CHARLEY T VISIT S GROUP 10 MINUTES EMERGENCY 87460 [facility] 5 5 [facility] DEPARTMEN INC T VISIT HIGH/URGE NT SEVERITY [facility] 5 [facility] INC T OFFICE 76512 [facility] GRETCHEN OUTPATIEN 4 4 [facility] T VISIT MEDICAL 10 G MINUTES [facility] 4 4 [facility] 4 [facility] INC T OFFICE 37290 LEIVA LEIVA OUTPATIEN 4 4 ART ART T VISIT 15 MINUTES OFFICE 39499 LEIVA LEIVA OUTPATIEN 4 4 ART ART T VISIT 15 MINUTES EMERGENCY 71158 JAIDEN CAMILLA JAIDEN CAMILLA 4 4 DEPARTMEN T VISIT HIGH/URGE NT SEVERITY [facility] T OFFICE 78384 ARACELILisetteAngelica GODINEZ OUTPATIEN 4 4 JUDAH TREVINO T NEW 45 MINUTES OFFICE 07834 [facility] AND[facility] OUTPATIEN 4 4 [facility]LEY CHARLEY T VISIT 10 MINUTES EMERGENCY 67694 [facility]AMP[facility] 4 4 III AREN III AREN DEPARTMEN T VISIT HIGH/URGE NT SEVERITY [facility] T EMERGENCY 98033 [facility] 4 4 [facility] DEPARTMEN INC T VISIT MODERATE SEVERITY [facility] T EMERGENCY 84914 [facility] DEPT 4 4 III AREN III AREN VISIT HIGH SEVERITY& THREAT FUNCJ OFFICE 80212 [facility] OUTPATIEN 4 4 CHARLEY CHARLEY T NEW 30 MINUTES [facility] - 4 4 [facility] T EMERGENCY 15162 [facility] DEPT 4 4 [facility] VISIT INC HIGH SEVERITY& THREAT FUNCJ OFFICE 60434 VITA TREVINO OUTPATIEN 4 4 T NEW 45 MINUTES [facility] 3 [facility] INC T OFFICE 09886 NATHALY CRMIHira OUTPATIEN 3 3 JR AREN JR AREN T VISIT 15 MINUTES [facility]OSPITAL [facility] 20191 UNIVERSIT OUTPATIEN 3 3 Y T NEW 10 HOSPITAL MINUTES OFFICE 78160 POPEYE PHI POPEYE PHI CONSULTAT 3 3 ION NEW/ESTAB PATIENT 40 MIN [facility] T OFFICE 31993 SHAYEMIE MCKEMIE OUTPATIEN 3 3 JR AREN YOUNGER T VISIT 15 MINUTES [facility] 3 [facility] T [facility] 3 3 [facility] T [facility] 3 [facility] T OFFICE 14545 LAUREN AGUILAR OUTPATIEN 3 3 SAVITA BARNEY T VISIT 15 MINUTES OFFICE 33649 MCKEMIE MCKEMIE OUTPATIEN 3 3 JR AREN YOUNGER T VISIT 15 MINUTES OFFICE 49206 MCKEMIE MCKEMIE OUTPATIEN 3 3 JR AREN YOUNGER T VISIT 15 MINUTES [facility] T OFFICE 91987 MCKEMIE MCKEMIE OUTPATIEN 3 3 JR AREN YOUNGER T VISIT 15 MINUTES EMERGENCY 85472 VOLODYMYR BRADFORD 3 3 EMERGENCY [facility] T VISIT HIGH/URGE NT SEVERITY EMERGENCY [address] [facility] [address] [facility] INC T VISIT LOW/MODER SEVERITY [facility] T OFFICE 99956 MCKEMIE MCKEMIE OUTPATIEN 3 3 JR AREN YOUNGER T VISIT 15 MINUTES [facility] 3 [facility] INC T EMERGENCY 88230 [facility] ANDERS DEPT 3 3 CHARLEY CHARLEY VISIT HIGH SEVERITY& THREAT FUN EMERGENCY 49532 [facility] 3 3 [facility] DEPARTMEN INC T VISIT HIGH/URGE NT SEVERITY [facility] 3 3 [facility] INC T OFFICE 38141 BERTINE BERTINE OUTPATIEN 3 3 JR AREN YOUNGER T VISIT 15 MINUTES [facility] - 3 3 [facility]PAT[facility] INC T EMERGENCY 87651 [facility] 3 3 [facility] DEPARTMEN INC T VISIT HIGH/URGE NT SEVERITY EMERGENCY 79872 [facility] DEPT 3 3 CHARLEY CHARLEY VISIT HIGH SEVERITY& THREAT [facility] - 2 2 [facility]PAT[facility] T [facility] - [facility] 2 [facility] T OFFICE 55538 CALI ESCOBARKINS OUTPATIEN 2 2 ART ART T VISIT 5 MINUTES [facility] 2 2 [facility] T [facility] 2 [facility] T OFFICE 26200 CALI ESCOBARKINS OUTPATIEN 2 2 ART ART T NEW 20 MINUTES [facility] 2 2 [facility] T OFFICE 40164 JAMA YUN OUTPATIEN 2 2 NAN NAN T VISIT 15 MINUTES [facility] 2 [facility] T OFFICE 57164 JAMA YUN OUTPATIEN 2 2 ARPAN ANTONY T VISIT 15 MINUTES OFFICE 96503 NICK ROMERO OUTPATIEN 2 2 CARLOTA VAN T NEW 60 MINUTES OFFICE 19156 NATHALY ANDERSEN OUTPATIEN 2 2 JR AREN YOUNGER T VISIT 15 MINUTES [facility] 2 [facility] T OFFICE 20027 JOHNY MCCLAIN OUTPATIEN 2 2 CAMILLA CAMILLA T VISIT 25 MINUTES OFFICE 84054 KANE MIDDLETON ALEM OUTPATIEN 2 2 T VISIT 10 MINUTES EMERGENCY 85778 [facility] DEPT 2 2 III AREN III AREN VISIT HIGH SEVERITY& THREAT FUNCJ EMERGENCY 50523 [facility] 2 2 [facility] DEPARTMEN INC T VISIT HIGH/URGE NT SEVERITY [facility] 2 [facility] T OFFICE 45978 MCKEMIE MCKEMIE OUTPATIEN 2 2 JR AREN JR AREN T VISIT 15 MINUTES OFFICE 44276 EDGE DONNIE FIELDS OUTPATIEN 2 2 T NEW 10 MINUTES [facility] [address] [facility] T OFFICE 88717 ODALYS MORROW LB OUTPATIEN 2 2 T VISIT 10 MINUTES [facility] 2 [facility] T EMERGENCY 96176 [facility] DEPT 2 2 III AREN III AREN VISIT HIGH SEVERITY& THREAT FUNCJ EMERGENCY [address] [facility] [address] [facility] DEPART[facility] INC T VISIT MODERATE SEVERITY EMERGENCY 77330 BARAHONA MICHELLE BARAHONA MICHELLE DEPT 1 1 VISIT HIGH SEVERITY& THREAT FUN [facility] [address] [facility] INC T EMERGENCY 0[address] [facility] [address] [facility] DEPART[facility] INC T VISIT MODERATE SEVERITY OFFICE 69216 [place] JOHNY OUTPATIEN 1 1 [facility] T VISIT INTERNAL 25 MED MINUTES OFFICE 27082 ODALYS MORROW LB OUTPATIEN 1 1 T NEW 30 MINUTES OFFICE 99788 BISHNU MORRISON JR OUTPATIEN 1 1 ATULFERNANDA AREN T VISIT CLINIC 15 PSC MINUTES OFFICE 59869 NEW MITCH MAT OUTPATIEN 1 1 [facility] VISIT CLINIC 25 PSC MINUTES OFFICE 27704 [place] BESSON OUTPATIEN 1 1 [facility] T VISIT INTERNAL 25 MED MINUTES OFFICE 21456 NEW MCCORMACK CONSULTAT 1 1 [facility] NEW/ESTAB PSC PATIENT 80 MIN [facility] 1 [facility] T OFFICE 96138 [place] BESSON OUTPATIEN 1 1 [place] CAMILLA T VISIT INTERNAL 15 MED MINUTES EMERGENCY 80531 VOLODYMYR CAMPOS DEPT 1 1 EMERGENCY III AREN VISIT SERVICES HIGH SEVERITY& THREAT FUNCJ EMERGENCY 40759 [facility] 1 1 [facility] T VISIT MODERATE SEVERITY [facility] 1 1 [facility]PAT[facility] INC OFFICE 68838 [place] BESSON OUTPATIEN 1 1 [facility] T VISIT INTERNAL 25 MED MINUTES OFFICE 92186 [place] BESSON OUTPATIEN 1 1 [facility] T VISIT INTERNAL 25 MED MINUTES [facility] 1 1 [facility] 1 [facility] OUTPATIEN INC OFFICE 92332 [facility] BESSON OUTPATIEN 1 1 [facility] T VISIT INTERNAL 25 MED MINUTES [facility] 1 1 [facility] OUTPATIEN INC [facility] 1 1 [facility]PAT[facility]EN INC T OFFICE 85375 [facility] BESSON OUTPATIEN 1 1 [facility] T VISIT INTERNAL 15 MED MINUTES [facility] 1 [facility] INC T EMERGENCY 87981 VOLODYMYR CAMPOS DEPT 1 1 EMERGENCY III AREN VISIT SERVICES HIGH SEVERITY& THREAT FUNCJ EMERGENCY 85816 [facility] 1 1 [facility] DEPARTMEN INC T VISIT HIGH/URGE NT SEVERITY OFFICE 56089 [place] MCKEMIE OUTPATIEN 1 1 NAHUN YOUNGER T VISIT INTERNAL 15 MED MINUTES OFFICE 92504 [place] MCKEMIE OUTPATIEN 1 1 NAHUN YOUNGER T VISIT INTERNAL 15 MED MINUTES [facility] 1 [facility] T OFFICE 00022 [place] BESSON OUTPATIEN 1 1 NAHUN SAMPSON T VISIT INTERNAL 15 MED MINUTES [facility] 1 [facility] T OFFICE 94138 [place] LAUREN OUTPATIEN 1 1 NAHUN BARNEY T VISIT INTERNAL 15 MEDI MINUTES OFFICE 22141 [place] MCKEMIE OUTPATIEN 0 0 NAHUN YOUNGER T VISIT INTERNAL 15 MED MINUTES [facility] 0 [facility] T OFFICE 84268 [place] MCKEMIE OUTPATIEN 0 0 NAHUN YOUNGER T VISIT INTERNAL 15 MED MINUTES EMERGENCY 90509 VOLODYMYR CHARANBYRON BOURNE DEPT 0 0 EMERGENCY VISIT SERVICES HIGH SEVERITY& THREAT [facility] OFFICE 34069 [place] BESSON OUTPATIEN 0 0 NAHUN PAIGE VISIT INTERNAL 15 MED MINUTES OFFICE 06959 BISHNU [facility] 0 0 [facility] 15 PSC MINUTES OFFICE 01638 [place] MCKEMIE OUTPATIEN 0 0 Kate GARNICA JR VISIT INTERNAL MCKAYLA F 15 MED MINUTES EMERGENCY 88994 [facility] 0 0 [facility] DEPARTMEN INC T VISIT HIGH/URGE NT SEVERITY [facility] 0 [facility] OUTPAT[facility] INC T OFFICE 80140 ALLRAN ALLRAN CONSULTAT 0 0 JR CECELIA, ANH JOSHI Donya Naqvi NEW/ESTAB PATIENT 80 MIN OFFICE 29608 [place] MCKEMIE OUTPATIEN 0 0 Kate GARNICA JR VISIT INTERNAL MCKAYLA F 15 MED MINUTES [facility] [address] [facility] T OFFICE 77763 [place] MCKEMIE OUTPATIEN 9 9 Kate GARNICA JR VISIT INTERNAL MCKAYLA F 15 MED MINUTES [facility] [address] [facility] T OFFICE 19845 GAIL SANCHEZ OUTPATIEN 9 9 ULI ESPINOZA T VISIT SERV 25 FOUNDATIO MINUTES [facility]OSP[facility] [address] [facility] [address] [facility] INC T OFFICE 62146 [place] JOHNY OUTPATIEN 9 9 NAHUN Allred T VISIT INTERNAL 15 MED MINUTES OFFICE 48483 BISHNU MORRISONLauren OUTPATIEN 9 9 [facility] T VISIT CLINIC 15 PSC MINUTES OFFICE 50164 [place] SHAYEMIE OUTPATIEN 9 9 Kate GARNICA JR VISIT INTERNAL MCKAYLA F 15 MED MINUTES [facility] [address] [facility] T EMERGENCY 47792 VOLODYMYR MASON, DEPT 9 9 EMERGENCY [place] VISIT SERVICES O HIGH SEVERITY& ASSOCIATE THREAT S FUN EMERGENCY [address] [facility] [address] [facility] DEPART[facility] INC T VISIT HIGH/URGE NT SEVERITY OFFICE 28902 [facility] RUTKEMIE OUTPATIEN 9 9 NAHUN RAI Kate VISIT INTERNAL MCKAYLA F 15 MED MINUTES OFFICE 75192 [facility] ELIAS OUTPATIEN 9 9 NAHUN NETTIE T VISIT INTERNAL 15 MED MINUTES OFFICE 41882 [facility] BESSON, OUTPATIEN 9 9 NAHUN Allred T VISIT INTERNAL 10 MED MINUTES OFFICE 08158 [place] MCKEMIE OUTPATIEN 9 9 NAHUN T VISIT INTERNAL MCKAYLA F 15 MED MINUTES [facility] [address] [facility] INC T OFFICE 74461 [place] ELIAS, OUTPATIEN 9 9 NAHUN SHEFFIELD T VISIT INTERNAL 15 MED MINUTES [facility] 8 8 [facility] T OFFICE 27581 [place] ELIAS, OUTPATIEN 8 8 NAHUN [place] T VISIT INTERNAL 15 MED MINUTES OFFICE 44353 [place] ELIAS, OUTPATIEN 8 8 NAHUN [place] T VISIT INTERNAL 15 MED MINUTES OFFICE 99281 [place] MCKEMIE OUTPATIEN 8 8 NAHUN JR T VISIT INTERNAL MCKAYLA F 15 MED MINUTES OFFICE 85096 Lauren WAYNE OUTPATIEN 8 8 [facility] 15 PSC MINUTES EMERGENCY 28850 AMBERLY MASON, ILIANAT 8 8 [facility] VISIT CORPORATI O HIGH ON SEVERITY& THREAT [facility] [address] [facility] INC T EMERGENCY [address] [facility] [address] [facility] MODERATE SEVERITY OFFICE 78086 [place] MCKEMIE OUTPATIEN 8 8 Kate GARNICA JR VISIT INTERNAL MCKAYLA F 15 MED MINUTES [facility] [address] [facility] INC T OFFICE 47891 [place] MCKEMIE OUTPATIEN 8 8 NAHUN RAI T VISIT INTERNAL MCKAYLA F 15 MED MINUTES [facility] [address] [facility] INC T OFFICE 77148 [place] MCKEMIE OUTPATIEN 8 8 [facility] JR, T VISIT INTERNAL MCKAYLA F 15 MED MINUTES OFFICE 78654 Lauren WAYNE CONSULTAT 8 8 [place] [facility] CLIN[facility] NEW/ESTAB PSC PATIENT 60 MIN OFFICE 57260 NEW BEN OUTPATIEN 8 8 [place] III, T VISIT CLINIC RADHA L 10 PSC MINUTES OFFICE 95676 [place] MCKEMIE OUTPATIEN 8 8 [facility] T VISIT INTERNAL MCKAYLA F 15 MED MINUTES [facility] 8 8 [facility] INC T EMERGENCY 55817 [facility] VALERO 8 8 [facility] T VISIT PROF SERV MODERATE SEVERITY [facility] 8 8 [facility] OUTPAT[facility] INC T EMERGENCY [address] [facility] [address] [facility] T VISIT HIGH/URGE NT SEVERITY OFFICE 25041 [facility] BEN OUTPATIEN 8 8 [place] III, T NEW 45 CLINIC RADHA L MINUTES PSC EMERGENCY 04856 [facility] DEPT [address] [facility] VISIT INC HIGH SEVERITY& THREAT FUNJ HOSPITAL [facility] - 8 8 [facility] OUTPATIEN INC T PERIODIC 54486 [place] MCKEMIE PREVENTIV 8 8 NAHUN RAI E MED EST INTERNAL MCKAYLA F PATIENT MED 40-64YRS HOSP[facility] - 8 8 [facility] OUTPATIEN INC T OFFICE 91200 ZEE, ZEE, OUTPATIEN 8 8 [facility] VISIT 40 MINUTES [facility] 8 8 [facility] OUT[facility] INC T [facility] 8 8 [facility] OUTPAT[facility] INC T EMERGENCY [address] [facility] [address] 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
--- OUTSIDE RECORDS SUMMARY | 2017-09-05 03:28 | External Medical Summary Rpt ---
Author Author , LUIS EDUARDO Garcia LUIS EDUARDO Address Unknown Phone [email or web address] Care Team Providers Care Supervisor Malted Milk Name Role Phone [facility], [facility] Unavailable Unavailable [...] Unavailable DANIEL, ALEXIS, Unavailable Unavailable DANIEL, ALEXIS [facility] Unavailable Unavailable SERVICE, [facility] Unavailable Unavailable SERVICE, [facility] Unavailable Unavailable SERVICE, [facility] BANDAR TEREZA, BANDAR Unavailable Unavailable [...] BEN III, RADHA L ODALYS LB, ODALYS BL Unavailable Unavailable ODALYS LB, ODALYS LB Unavailable [...] [facility]available [facility] Unavailable Unavailable [place], [facility] [place] [facility] [place] [facility] [...] CHARLEY BARAHONA MICHELLE, BARAHONA MICHELLE Unavailable Unavailable [facility] Unavailable Unavailable INC, [facility] Unavailable Unavailable HOSPITAL P, [facility] NETTIE GRIFFIN HARVEY, Unavailable Unavailable NET[facility] MIDDLETON ALEM, MIDDLETON ALEM Unavailable Unavailable MIDDLETON ALEM, MIDDLETON ALEM Unavailable Unavailable MIDDLETON, MICHAEL A, Unavailable Unavailable MIDDLETON, MICHAEL A [facility], Unavailable Unavailable [facility] MIESHA NIELSON, MIESHA NIELSON Unavailable Unavailable KATYA MITCHELL, KATYA Unavailable Unavailable MITCHELL JAMA NAN, JAMA Unavailable Unavailable NAN JAMA NAN, JAMA Unavailable Unavailable NAN [facility] Unavailable Unavailable MEDICAL G, [facility] Unavailable Unavailable DEPARTMENT, [facility], [facility] [place] [facility] [facility] Unavailable Unavailable NAN, ALBA E, Unavailable Unavailable NAN, ALBA E [facility] Unavailable Unavailable LABORATORY, [facility] [place] Unavailable Unavailable INTER[facility] MED, [facility] [place] Unavailable Unavailable [facility], [facility] FREDY DEAN MD, FREDY Unavailable Unavailable JERMAINE DOSS MAJORS G, MAJORS G Unavailable Unavailable VITA HAM, VITA HAM Unavailable Unavailable VITA HAM, VITA HAM Unavailable Unavailable [facility] Unavailable Unavailable SERVICES, [facility] NICK VAN, Unavailable Unavailable ROMERO [...] MOHAMMADZADEH MOHAMMADZADEH HAM, Unavailable Unavailable MOHAMMADZADEH HAM [facility] Unavailable Unavailable [facility], [facility] O'JENNIFER LISA, O'JENNIFER Unavailable Unavailable LISA YAYO, LISEBTH, Unavailable Unavailable LISBETH ZEE [facility], [...] VERA POPEYE PHI, POPEYE PHI Unavailable Unavailable POPEYELAKSHMI A, Unavailable Unavailable POPEYE LAKSHMI A MITCH MAT, MITCH MAT Unavailable Unavailable [facility], Unavailable Unavailable [facility] MORRISON W, MORRISON W Unavailable Unavailable [...] NEOPLASM OF [facility] CRANIAL INC NERVES [id number] SPONDYLOSIS 07-05-2017 [place] W/O KRISTIAN MYELOPATH/R ,[facility] ADICULOPATH Y CERV RGN [id number] SPONDYLOSIS 07-05-2017 [place] W/Milton TOWNSEND MYELSAJI/Lashay DOSS,[facility] ADICULOPATH Y LUMB RGN U71900 [facility] 07-05-2017 [place] CURRENT USE KRISTIAN OF OPIATE ,[facility] ANALGESIC M65148 OTHER LONG 06-15-2017 [facility] TERM [facility] CURRENT INC DRUG THERAPY E119 TYPE 2 06-02-2017 [facility] DIABETES PHYSICIANS MELLITUS GROUP WITHOUT COMPLICATIO NS E785 HYPERLIPIDE 06-02-2017 [facility] LESTER PHYSICIANS UNSPECIFIED GROUP I119 HYPERTENSIV 06-02-2017 [facility] E HEART PHYSICIANS DISEASE GROUP WITHOUT HEART FAILURE 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 I712 THORACIC 06-02-2017 [facility] AORTIC PHYSICIANS ANEURYSM GROUP WITHOUT RUPTURE I714 ABDOMINAL 06-02-2017 [facility] AORTIC PHYSICIANS ANEURYSM GROUP WITHOUT RUPTURE R079 CHEST PAIN 06-02-2017 [facility] UNSPECIFIED PHYSICIANS GROUP R9439 ABNORMAL 05-26-2017 [facility] RESULT OTH PHYSICIANS CARDIOVASCU GROUP LR FUNCTION STUDY N56334 ENCOUNTER 05-26-2017 [facility] FOR PHYSICIANS PREPROCEDUR GROUP AL CARIOVASCUL AR EXAM I10 ESSENTIAL 05-13-2017 [facility] PRIMARY PHYSICIANS HYPERTENSIO GROUP N R9431 ABNORMAL 05-13-2017 [facility] ELECTROCARD PHYSICIANS IOGRAM GROUP P58387 ENCOUNTER 05-13-2017 [facility] FOR OTHER [facility] PREPROCEDUR INC AL EXAMINATION R1011 RIGHT UPPER 05-03-2017 [facility] R935 ABN FIND DX 05-03-2017 [facility] IMAG OTH [facility] ABD REGIONS INC RETROPERITO NEUM D369 BENIGN 04-19-2017 [facility] NEOPLASM PHYSICIANS UNSPECIFIED GROUP SITE J01065 PERSONAL 04-19-2017 [facility] HISTORY OF PHYSICIANS COLONIC GROUP POLYPS K210 GASTRO-ESOP 04-09-2017 [facility] JENSEN PHYSICIANS, REFLUX PLLC DISEASE W/ ESOPHAGITIS K828 OTHER 04-09-2017 [facility] SPECIFIED PHYSICIANS, DISEASES OF PLLC GALLBLADDER K829 DISEASE OF 04-09-2017 [facility] GALL[facility]DER [facility] UNSPECIFIED R109 UNSPECIFIED 04-09-2017 [facility] ABDOMINAL MEDICAL PAIN IMAGING ASS B56746 PERSONAL 04-09-2017 [facility] P DEPENDENCE N411 CHRONIC 04-05-2017 [facility] PROSTATITIS [facility] P N529 MALE 04-05-2017 [facility] P UNSPECIFIED K219 GASTRO-ESOP 04-02-2017 [facility] H REFLUX [facility] DISEASE INC WITHOUT ESOPHAGITIS M5116 INTERVERTEB 04-02-2017 [facility] GLORIA PHYSICIANS, D/O PLLC W/RADICULOP ATHY LUMB RGN R1031 RIGHT LOWER 04-02-2017 [facility] M5382 OTHER 03-23-2017 [place] SPECIFIED CHIROPRACTI DORSOPATHIE C CENTE S CERVICAL REGION M5386 OTHER 03-23-2017 [place] SPECIFIED CHIROPRACTI DORSOPATHIE C CENTE S LUMBAR REGION X35546 OTHER 03-04-2017 [place] CERVICAL JUANI TOWNSEND MD,PSC MID-CERV REG UNS LEVEL K5900 CONSTIPATIO 02-13-2017 [facility] N MEDICAL UNSPECIFIED IMAGING ASS R112 NAUSEA WITH 02-13-2017 [place] VOMITING MEDICAL UNSPECIFIED IMAGING ASS J449 CHRONIC 01-13-2017 [facility] OBSTRUCTIVE [facility] PULMONARY [facility] P DISEASE UNS R0600 DYSPNEA 01-13-2017 [place] UNSPECIFIED MEDICAL IMAGING ASS E039 HYPOTHYROID 11-11-2016 [facility] ISM [facility] UNSPECIFIED INC N401 BENIGN 10-26-2016 [facility] PROSTATIC [facility] P LW URINARY TRACT SX R350 FREQUENCY 10-26-2016 [facility] MICTURITION [facility] P M84675 UNSPECIFIED 10-11-2016 [facility] ALEM BLEPHARITIS LEFT LOWER EYELID J9811 ATELECTASIS 09-01-2016 [facility] R1013 EPIGASTRIC 09-01-2016 [facility] P R7989 OTHER SPEC 09-01-2016 [facility] ABNORMAL MEDICAL FINDINGS IMAGING ASS BLOOD CHEMISTRY M791 MYALGIA 08-25-2016 [place] TOWNSEND MD,PSC M5090 CERVICAL 08-16-2016 [facility] DISORDER INC UNS UNS CERVICAL REGION M26748 PAIN IN 08-10-2016 [place] RIGHT MEDICAL SHOULDER IMAGING ASS M5032 OTH CERV 08-10-2016 [place] DISC MEDICAL DEGENERATIO IMAGING ASS N MID-CERVICA L REGION M542 CERVICALGIA 08-10-2016 [facility] R51 HEADACHE 08-10-2016 [facility] Q3342VE CONTUSION 08-10-2016 [facility] UNS PART PHYSICIANS, HEAD PLLC INITIAL ENCOUNTER X1633YP UNSPECIFIED 08-10-2016 [place] INJURY OF MEDICAL HEAD IMAGING ASS INITIAL ENCOUNTER W810WZC STRAIN 08-10-2016 [facility] MUSCLE FASC PHYSICIANS, & TENDON PLLC NECK LEVL INIT ENC V421NOO UNSPECIFIED 08-10-2016 [place] INJURY OF MEDICAL NECK IMAGING ASS INITIAL ENCOUNTER Q37450W UNSPECIFIED 08-10-2016 [facility] SPRAIN RT PHYSICIANS, SHOULDER PLLC JOINT INITIAL ENC K6972GG UNS INJURY 08-10-2016 [place] RT SHOULDER MEDICAL UPPER ARM IMAGING ASS INITIAL ENCNTR D126 BENIGN 07-29-2016 [facility] NEOPLASM OF LLC COLON UNSPECIFIED K635 POLYP OF 07-29-2016 [facility] COLON PHYSICIANS GROUP Z09 ENC F/U 07-29-2016 [facility] EXAM AFTR ANESTH OF CMPL TX OTH THE BLUE THAN MALIG NEOPLSM Z1211 ENCOUNTER 07-29-2016 [facility] SCREENING PHYSICIANS MALIGNANT GROUP NEOPLASM OF COLON M4642 DISCITIS 05-14-2016 [facility] UNSPECIFIED PHYSICIANS CERVICAL GROUP REGION G8929 OTHER 04-23-2016 [facility] CHRONIC PHYSICIANS PAIN GROUP J40 BRONCHITIS 04-07-2016 [facility] NOT PHYSICIANS SPECIFIED GROUP ACUTE OR CHRONIC M5010 CERVICAL 03-29-2016 BOYDAISHWARYA PATTERSONX, DISC D/O , PSC W/RADICULOP ATHY UNS CERV RGN B351 TINEA 03-25-2016 PRO[facility] UNGUIUM PODIATRY E1151 TYPE 2 DM 03-25-2016 [facility] W/DIAB PODIATRY PERIPH ANGIOPATHY W/O GANGRENE M2570 OSTEOPHYTE 03-25-2016 [facility] UNSPECIFIED PODIATRY JOINT V36544 PAIN IN 03-25-2016 [facility] LEFT TOES PODIATRY J0110 ACUTE 03-24-2016 [facility] FRONTAL PHYSICIANS SINUSITIS GROUP UNSPECIFIED I37687O UNS OPEN 03-24-2016 [facility] WOUND UNS PHYSICIANS TOES GROUP W/DAMAGE NAIL INITIAL M5030 OT 02-23-2016 [facility] CERVICAL [facility] DISC INC DEGENERATIO N UNS CERV REGION M5412 RADICULOPAT 02-23-2016 BOYD DEAN HY CERVICAL , PSC REGION R200 ANESTHESIA 01-23-2016 [place] OF SKIN MEDICAL IMAGING ASS Z8603 PERSONAL 01-23-2016 [place] HISTORY MEDICAL NEOPLASM OF IMAGING ASS UNCERTAIN BEHAVIOR 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 X04227 UNSPECIFIED 01-14-2016 [facility] PTOSIS OF SERV RIGHT FOUNDATION EYELID H9191 UNSPECIFIED 01-14-2016 [facility] HEARING SERV LOSS RIGHT FOUNDATION EAR P38508 FACIAL 01-14-2016 [facility] WEAKNESS SERV FOUNDATION R9089 OT 01-14-2016 [place] [facility] ABNORMAL SERV FIND ON DX FOUNDATION IMAGING CNTRL NERV SYS I23859 PERSONAL 01-14-2016 [place] [facility] HISTORY 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 UNSPECIFIED V70416 CONTACT 12-26-2015 [facility] ANG BLEPHAROCON JUNCTIVITIS RIGHT EYE M5136 OT 12-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 BURT MD, PSC RAL DISC DEGEN LUMBAR REGION R110 NAUSEA 12-03-2015 [facility] R140 ABDOMINAL 11-26-2015 [place] DISTENSION MEDICAL GASEOUS IMAGING ASS B370 CANDIDAL 11-20-2015 [facility] STOMATITIS PHYSICIANS, [facility] E1121 TYPE 2 11-20-2015 [facility] DIABETES [facility] MELLITUS INC W/DIABETIC NEPHROPATHY J329 CHRONIC 11-13-2015 [facility] SINUSITIS PHYSICIANS UNSPECIFIED GROUP H5203 HYPERMETROP 09-08-2015 [facility] A[facility] IA BILATERAL M797 FIBROMYALGI 08-29-2015 [facility] A [facility] INC 41016 DEGEN 07-28-2015 BOYD BUX, LUMBAR/LUMB , PSC OSACRAL INTERVERTEB RAL DISC 7244 THORACIC/GINO 07-28-2015 GABBY BURT MD, PSC NEURITIS/RA DICULITIS UNSPEC 7291 UNSPECIFIED 07-28-2015 BOYD DEAN, MYALGIA , PSC AND MYOSITIS V7109 OBSERVATION 07-23-2015 COMPREHEND OF OTHER INC SUSPECTED MENTAL CONDITION 67584 UNSPECIFIED 06-20-2015 [facility] ARTHROPATHY INC OTHER SPECIFIED SITES 6011 CHRONIC 06-03-2015 [facility] PROSTATITIS [facility] P 35327 DEGEN 05-06-2015 [facility] THORACIC/TH MEDICAL ORACOLUMBAR IMAGING ASS INTERVERTEB RAL DISC 7231 CERVICALGIA 05-06-2015 [facility] 7245 UNSPECIFIED 05-06-2015 [facility] BACKACHE MEDICAL IM[facility]ING ASS 7840 HEADACHE 05-06-2015 [facility] 8470 NECK SPRAIN 05-06-2015 [facility] AND STRAIN PHYSICIANS, [facility] 92172 HEAD 05-06-2015 [facility] INJURY, PHYSICIANS, UNSPECIFIED PLLC 91431 HYPERTROPHY 04-29-2015 [facility] W/UR OBST & HOSPITAL P OTH LUTS 17174 URINARY 04-29-2015 [facility] P 7224 DEGENERATIO 04-28-2015 MADAR BUX N OF CERVICAL INTERVERTEB RAL DISC 7234 BRACHIAL 04-28-2015 FREDY DEAN NEURITIS [place] RADICULITIS N[place] 62146 DIAB W/O 03-04-2015 [facility] COMP TYPE LAR II/UNS NOT CONSULTANTS STATED O UNCNTRL 2724 OTHER AND 03-04-2015 [facility] UNSPECIFIED [facility] INC HYPERLIPIDE LESTER 4019 UNSPECIFIED 03-04-2015 [facility] ESSENTIAL [facility] HYPERTENSIO INC N 13546 UNSPEC HTN 03-04-2015 [facility] HEART LAR DISEASE CONSULTANTS WITHOUT O HEART FAIL 99372 COR 03-04-2015 [facility] ATHEROSLERO [facility] UNSPEC INC TYPE VESSEL [place] TRIBE/XAVIER T 99510 OTHER 02-26-2015 [place] DYSPNEA AND MEDICAL [place]AG[place] [address] CHEST PAIN 02-26-2015 [place] MEDICAL UNSPECIFIED SERV FOUNDATION 95031 OTHER CHEST 02-26-2015 [facility] PAIN PHYSICIANS GROUP 2449 UNSPECIFIED 01-09-2015 [facility] [place] [address] DISPLCMT 01-09-2015 [facility] LUMBAR PHYSICIANS INTERVERT GROUP DISC W/O MYELOPATHY 54602 OTHER 01-09-2015 [facility] MALAISE AND PHYSICIANS FATIGUE GROUP 61827 DIAB W/O 12-28-2014 [facility] MENTION [facility] COMP TYPE INC II/UNS TYPE UNCNTRL 2768 HYPOPOTASSE 12-28-2014 [facility] P 3319 UNSPECIFIED 12-28-2014 [place] CEREBRAL MEDICAL DEGENERATIO IMAGING ASS N 7820 DISTURBANCE 12-28-2014 [facility] OF SKIN [facility] P 18542 PRECORDIAL 12-28-2014 [facility] PAIN AMBULANCE SERVICE 51576 VOMITING 12-28-2014 [facility] AMBULANCE SERVICE V140 PERSONAL 12-28-2014 [facility] HISTORY OF [facility] ALLERGY TO [facility] P PENICILLIN 4414 ABDOMINAL 11-14-2014 [facility] HEALTH WITHOUT MEDICAL G MENTION OF RUPTURE 490 BRONCHITIS 10-30-2014 [facility] NOT PHYSICIANS SPECIFIED GROUP ACUTE OR CHRONIC 97596 UNSPECIFIED 05-07-2014 [facility] ART ORCHITIS AND EPIDIDYMITI S 43883 OTHER 04-16-2014 [facility] CHRONIC [facility] PAIN INC 496 CHRONIC 04-16-2014 [facility] AIRWAY [facility] OBSTRUCTION INC NEC 7242 LUMBAGO 04-16-2014 JAIDEN CAMILLA V1582 PERS HX 04-16-2014 [facility] TOBACCO USE [facility] PRESENTING INC [facility] V5869 LONG-TERM 04-16-2014 [facility] (CURRENT) [facility] USE OF INC OTHER MEDICATIONS 80826 OTHER 04-02-2014 [facility] CONVULSIONS [facility] INC 8472 LUMBAR 04-02-2014 WEHRMAN III SPRAIN AND AREN STRAIN E9179 OTHER 04-02-2014 [facility] III STRIKING AREN AGAINST W/WO SUBSEQUENT FALL 4139 OTHER AND 03-29-2014 [facility] UNSPECIFIED [facility] ANGINA INC PECTORIS 16845 ING ANDREW 03-29-2014 [facility] W/O MENTION BUBBA OBST/GANGRE N UNILAT/UNSP EC 5738 OTHER 03-29-2014 [facility] SPECIFIED BUBBA DISORDERS OF LIVER 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 33121 ABDOMINAL 03-29-2014 [facility] III PAIN OTHER AREN SPECIFIED SITE 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 96506 ACUTE 03-03-2014 [facility] GASTRITIS [facility] WITHOUT INC MENTION OF HEMORRHAGE 73276 UNS 03-03-2014 WARE BRO GASTRITIS&G ASTRODUODIT IS W/O MENTION HEMORR 7213 LUMBOSACRAL 01-17-2014 VITA TREVINO SPONDYLOSIS WITHOUT MYELOPATHY 7831 ABNORMAL 10-13-2013 [facility] WEIGHT GAIN [facility] INC 51731 DIARRHEA 10-13-2013 [facility]OS[facility] INC V0481 NEED 08-23-2013 NATHALY RAI PROPHYLACTI AREN C VACCINATION &INOCULATIO N FLU 3510 BELLS PALSY 07-24-2013 [facility] 7218 OTHER 07-24-2013 [facility] DISORDERS OF SPINE 23886 OTH 07-18-2013 [facility] MIGRAINE [facility] W/O INTRACT INC W/O STATUS MIGRAINOSUS 70129 OTHER 06-18-2013 [facility] CONDITIONS BUBBA OF BRAIN 7220 DISPLCMT 06-18-2013 [facility] CERV BUBBA INTERVERT DISC WITHOUT MYELOPATHY 7249 OTHER 06-18-2013 [facility] UNSPECIFIED BUBBA BACK DISORDER V571 OTHER 05-28-2013 [facility] PHYSICAL [facility] THERAPY INC 88578 UNSPECIFIED 03-06-2013 [facility] 11946 PAIN IN 03-06-2013 [facility], EMERGENCY SHOULDER SERVICES REGION 7295 PAIN IN 03-06-2013 [facility] SOFT BUBBA TISSUES OF LIMB 24802 OTHER 03-06-2013 [facility] NONSPECIFIC BUBBA ABNORMAL FINDING OF LUNG FIELD 63941 MICROSCOPIC 01-26-2013 NATHALY RAI HEMATURIA AREN 8460 SPRAIN AND 01-26-2013 NATHALY RAI STRAIN OF AREN LUMBOSACRAL 14036 OTHER 01-25-2013 [facility] DISEASES OF BUBBA SPLEEN 4411 THORACIC 01-25-2013 [facility] ANEURYSM, BUBBA RUPTURED 5589 OTH&UNSPEC 01-25-2013 [facility] NONINFECTIO [facility] P GASTROENTER ITIS&COLITI S 75276 HYPERTROPHY 01-25-2013 [facility] PROSTATE BUBBA W/O UR OBST & OTH LUTS 6019 UNSPECIFIED 12-30-2012 [facility]OS[facility] PROSTATITIS INC 7823 EDEMA 12-30-2012 [facility] HOSP INC 15914 UNSPECIFIED 12-29-2012 NATHALY RAI AREN CONSTIPATIO N 39455 ABDOMINAL 12-15-2012 [facility] P 4400 ATHEROSCLER 12-14-2012 [facility] OSIS OF BUBBA AORTA 00201 ABDOMINAL 12-14-2012 [facility] CHARLEY PAIN, UNSPECIFIED SITE 24453 HEMATURIA 08-29-2012 [facility] UNSPECIFIED [facility]ICAL IMAGING ASS 97807 OTHER 08-21-2012 [place] SPECIFIED MEDICAL DISORDERS IMAGING ASS OF BLADDER 50601 ABDOMINAL 08-08-2012 [facility] PAIN RIGHT BUBBA LOWER QUADRANT 4419 AORTIC 08-01-2012 JAMA ANTONY ANEUR UNSPEC SITE WITHOUT MENTION RUPTURE 7881 DYSURIA 07-24-2012 JAMA ANTONY 67102 PRIMARY 06-14-2012 NICK LACRIMAL JAM ATROPHY 83701 VITREOUS 06-14-2012 NICK DEGENERATIO JAM N 06641 UNSPECIFIED 04-04-2012 KANE FERRARA BLEPHAROCON JUNCTIVITIS 24009 ESOPHAGEAL 04-04-2012 [facility] REFLUX 5533 DIAPHRAGMAT 04-04-2012 [facility] ANDREW W/O MENTION OBSTRUCTION /GANGREN 47820 OTHER LATE 03-25-2012 [facility] EFFECTS OF CEREBROVASC ULAR DISEASE V711 OBSERVATION 03-24-2012 [place] FOR MEDICAL SUSPECTED IMAGING ASS MALIGNANT NEOPLASM 436 ACUTE BUT 02-28-2012 NATHALY RAI ILL-DEFINED AREN CEREBROVASC ULAR DISEASE 22367 UNS 12-22-2011 [facility] MALIGNANT NEOPLASM EYELID INCLUDING CANTHUS 50057 BASAL CELL 12-22-2011 [place] CARCINOMA ANESTHESIA OF EYELID ASSOC L INCLUDING CANTHUS 44447 OTHER 12-22-2011 [facility] CHRONIC DERMATITIS DUE TO SOLAR RADIATION 01356 OTHER 11-28-2011 [facility] SPECIFIED BUBBA ACQUIRED DEFORMITY OF HEAD 4660 ACUTE 10-11-2011 NATHALY RAI BRONCHITIS AREN 7862 COUGH 10-11-2011 [facility] 2392 NEOPLASMS 10-01-2011 [facility] BL UNSPEC NATURE BONE SOFT TISSUE&SKIN 7226 DEGENERATIO 09-21-2011 [facility] N [place] INTERVERTEB INTERNAL RAL DISC MED SITE UNSPEC 33052 BLEPHARITIS 09-07-2011 [facility] LB , UNSPECIFIED 3670 HYPERMETROP 08-20-2011 ISHA IA VISION 43089 ABDOMINAL 07-27-2011 NEW PAIN RIGHT [facility] UPPER CLINIC PSC QUADRANT 7210 CERVICAL 07-22-2011 NEW SPONDYLOSIS [facility] WITHOUT CLINIC PSC MYELOPATHY 2250 BENIGN 06-15-2011 NEW NEOPLASM OF [facility] BRAIN CLINIC PSC 66039 SHORTNESS 06-03-2011 [facility] [facility] MEDICAL IMAGING ASS 1101 DERMATOPHYT 05-18-2011 [facility] OSIS OF VALLEY NAIL INTERNAL MED 7822 LOCALIZED 05-18-2011 [facility] SUPERFICIAL [place] SWELLING INTERNAL MASS OR MED LUMP 7906 OTHER 04-13-2011 [facility] ABNORMAL [place] BLOOD INTERNAL CHEMISTRY MED 15844 DYSPHAGIA 02-25-2011 [facility] UNSPECIFIED [facility] INC 7871 HEARTBURN 02-16-2011 C CELESTINO ADAME MD PSC 96661 ABDOMINAL 02-16-2011 C CELESTINO KENYON, DEEP EPIGASTRIC PSC 1919 MALIGNANT 02-03-2011 [facility] NEOPLASM OF [place] BRAIN INTERNAL UNSPECIFIED MED SITE 23563 DYSPHAGIA 02-03-2011 [facility] DUE TO [place] CEREBROVASC INTERNAL ULAR MED DISEASE 1104 DERMATOPHYT 12-14-2010 [facility] OSIS OF [place] FOOT INTERNAL MED 9953 ALLERGY 12-12-2010 [facility] UNSPECIFIED [place] NOT INTERNAL ELSEWHERE MED CLASSIFIED 7821 RASH AND 12-09-2010 [facility] OTHER [place] NONSPECIFIC INTERNAL SKIN MED ERUPTION 7079 CHRONIC 12-07-2010 [facility] ULCER OF [place] UNSPECIFIED INTERNAL SITE MEDI 3688 OTHER 09-21-2010 [place] SPECIFIED MEDICAL VISUAL IMAGING ASS DISTURBANCE S 94051 MUSCLE 09-21-2010 [facility] WEAKNESS [facility] (GENERALIZE INC D) 53198 FACIAL 09-21-2010 [facility] WEAKNESS [facility] INC 57345 NAUSEA WITH 07-27-2010 [facility] V[facility] AMBUL[facility] 69819 OTHER AND 07-25-2010 [facility]PECIFIED [place] INTERNAL CONJUNCTIVI MED TIS 5409 ACUTE 05-05-2010 [facility] WITHOUT HOSPITAL MENTION PROF SERV PERITONITIS 541 APPENDICITI 05-05-2010 [facility] 7804 DIZZINESS 05-05-2010 [facility] V4589 OTHER 05-05-2010 [facility] OTHER PROF SERV 20372 PAINFUL 11-05-2009 [facility] [place] INTERNAL MED 73822 OTHER SPEC 09-03-2009 [place] [facility] WITHOUT FOUNDATIO MENTION HEMORRHAGE 21015 DUODENITIS 09-03-2009 [facility] MENTION OF INC HEMORRHAGE 76982 NAUSEA 09-03-2009 [facility]ONE CYTOLOGY LAB 26884 UNSPECIFIED 05-07-2009 [facility] TIS PROF SERV 4280 CONGESTIVE 04-11-2009 [facility] [place] FAILURE INTERNAL UNSPECIFIED MED 97706 OTHER 01-13-2009 [facility] ANXIETY [facility] INTERNAL MED 4439 UNSPECIFIED 12-20-2008 [facility] VASCULAR INC DISEASE 93716 ONYCHIA AND 12-16-2008 [facility] [place]IA [place] INTERNAL MED 2396 NEOPLASM OF 11-27-2008 [facility] UNSPECIFIED NATURE OF BRAIN 3384 CHRONIC 11-13-2008 [facility] PA[place] SYNDROME INTERNAL MED 4659 ACUTE URIS 10-30-2008 [facility] UNSPECIFIED INTERNAL SITE MED 25984 ABDOMINAL 07-17-2008 [facility] UPPER LABORATORY QUADRANT 18507 DISORDER OF 06-25-2008 [facility] CARTILAGE INC UNSPECIFIED 3674 PRESBYOPIA 04-11-2008 [facility] 7802 SYNCOPE AND 03-29-2008 [facility] 92034 TRANSIENT 03-28-2008 [facility]ATION [facility]BULANCE OF SERVICE AWARENESS 4011 ESSENTIAL 03-14-2008 [facility], BENIGN [facility]INIC PSC 95097 ANNIE HTN 02-27-2008 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 2409 GOITER, 02-20-2008 [facility] 7931 NONSPEC 02-20-2008 [facility] FIND RAD MEDICAL OTH EXAM IMAGING BODY [...] 80 4- 9- 00 00 SI ve LA 21 20 20 49 DE DE 61 17 17 91 0 24 PH 40 AR MA MG CY TA OF BL CY ET NT HI AN A IN C ME 23 08 09 30 30 00 EA Ac TF 15 -2 -[address] ti OR 50 4- 9- 00 00 SI ve LA 10 20 20 49 DE N 21 [...] 5 49 PH CE AR TA MA LA CY NO PH OF N CY 10 [...] 50 4- 5- 00 00 SI ve LA 10 20 20 49 DE N 21 17 17 54 HC 0 03 PH L AR 50 MA 0 CY MG OF TA CY BL NT ET HI AN A IN C FU 00 07 08 30 30 00 EA Ac RO 37 -2 -[address] ti SE 80 4- 5- 00 00 SI ve LA 21 20 20 49 DE DE 61 [...] 5 66 PH CE AR TA MA LA CY NO PH OF N CY 10 [...] 50 2- 8- 00 00 SI ve LA 10 20 20 49 DE N 21 [...] 80 6- 1- 00 00 SI ve LA 21 20 20 49 DE DE 61 [...] 5 80 PH CE AR TA MA LA CY NO PH OF N CY 10 [...] 50 2- 3- 00 00 SI ve LA 10 20 20 48 DE N 21 [...] 5 38 PH CE AR TA MA LA CY NO PH OF N CY 10 NT -3 HI 25 AN A IN C FU 00 04 02 30 30 00 EA Ac RO 37 -0 -[address] ti SE 80 9- 9- 00 00 SI ve LA 21 20 20 48 DE DE 61 [...] OR 31 1- 6- 00 SI ve LA 04 20 20 48 DE N 80 [...] 40 0- 2- 00 00 SI ve LA 62 20 20 48 DE DE 51 [...] 5 38 PH CE AR TA MA LA CY NO PH OF N CY 10 [...] 31 0- 1- 00 00 SI ve LA 04 20 20 48 DE N 80 [...] ve LO 37 20 20 48 DE VT 40 17 17 05 AM 1 71 PH AR 10 MA CY MG OF TA CY BL NT ET HI AN A IN C FU 63 03 04 30 30 00 EA Ac RO 30 -0 -[address] ti SE 40 9- 4- 00 00 SI ve LA 62 20 20 47 DE DE 51 [...] 5 33 PH CE AR TA MA LA CY NO PH OF N CY 10 [...] 50 7- 4- 00 00 SI ve LA 10 20 20 47 DE N 21 17 17 66 HC 0 02 PH L AR 50 MA 0 CY MG OF TA CY BL NT ET HI AN A IN C ES 65 02 03 30 30 00 EA Ac CI 86 -1 -[address] ti TA 20 7- 4- 00 SI ve LO 37 20 20 47 DE VT 40 17 17 66 AM 1 03 [...] 5 63 PH CE AR TA MA LA CY NO PH OF N CY 10 [...] 40 0- 3- 00 00 SI ve LA 62 20 20 47 DE DE 51 [...] 50 6- 7- 00 00 SI ve LA 10 20 20 47 DE N 21 [...] 5 53 PH CE AR TA MA LA CY NO PH OF N CY 10 [...] 40 6- 7- 00 00 SI ve LA 62 20 20 47 DE DE 51 [...] 50 5- 0- 00 00 SI ve LA 10 20 20 46 DE N 21 [...] 5 68 PH CE AR TA MA LA CY NO PH OF N CY 10 [...] RT 40 9- 9- 00 SI 16 LA ve AN 22 20 20 0 DE [...] PE 40 4- 4- 00 SI 87 LA ve NT 66 20 20 0 DE E IN 20 13 13 JR 1 PH 30 AR WI 0 MA LL MG CY IA M CA OF F PS UL CY E NT HI AN A SI 16 11 11 0 30 30 EA 33 MC Ac MV 71 -1 -[address] 61 KE ti 40 2- 2- 00 SI 39 LA ve TA 68 20 20 0 DE E TI 40 13 13 JR N 3 PH 40 AR WI MA LL MG CY IA M TA OF F BL ET CY NT HI AN A LO 16 06 11 4 15 15 EA 31 MC Ac SA 71 -1 -[address] 99 KE ti RT 40 0- 2- 00 SI 99 LA ve AN 22 20 20 0 DE [...] RA 50 4- 1- 00 SI 09 LA ve ZO 13 20 20 0 DE E LE 63 13 [address] AR WI MA LL 40 CY IA M MG OF F CA CY PS NT UL HI E AN A ME 00 08 11 3 30 30 EA 32 Ac TF 09 -0 -[address] 52 KE ti OR 31 2- 9- 00 SI 59 LA ve LA 04 20 20 0 DE E N 81 13 13 JR HC 0 PH L AR WI 50 MA LL 0 CY IA MG M OF F TA BL CY ET NT HI AN A FU 63 08 11 2 30 30 EA 32 Ac RO 30 -2 -[address] 80 KE ti SE 40 9- 5- 00 SI 32 LA ve LA 62 20 20 0 DE E DE 51 13 13 JR 0 PH 40 AR WI MA LL MG CY IA M TA OF F BL ET CY NT HI AN A CL 00 10 11 0 45 15 EA 33 Ac ON 22 -1 -[address] 31 KE ti AZ 83 4- 2- 00 SI 89 LA ve EP 00 20 20 0 DE E AM 45 13 13 JR 1 0 PH AR WI MG MA LL CY IA TA M BL OF F ET CY NT HI AN A LE 00 07 11 3 30 30 EA 32 Ac VO 37 -2 -[address] 46 KE ti TH 81 6- 2- 00 SI 48 LA ve YR 80 20 20 0 DE [...] RT 40 0- 5- 00 SI 99 LA ve AN 22 20 20 0 DE [...] AZ 83 4- 4- 00 SI 89 LA ve EP 00 20 20 0 DE E AM 45 13 13 JR 1 0 PH AR WI MG MA LL CY IA TA M BL OF F ET CY NT HI AN A SI 16 08 10 2 30 30 EA 32 MC Ac MV 71 -0 -[address] 57 KE ti 40 7- 2- 00 SI 30 LA ve TA 68 20 20 0 DE E TI 40 13 13 JR N 3 PH 40 AR WI MA LL MG CY IA M TA OF F BL ET CY NT HI AN A OM 62 09 10 2 30 30 EA 32 MC Ac EP 17 -0 -[address] 86 KE ti RA 50 4- 9- 00 SI 09 LA ve ZO 13 20 20 0 DE E LE 63 13 [address] AR WI MA LL 40 CY IA M MG OF F CA CY PS NT UL HI E AN A ME 00 08 10 3 30 30 EA 32 MC Ac TF 09 -0 -[address] 52 KE ti OR 31 2- 7- 00 SI 59 LA ve LA 04 20 20 0 DE E N 81 13 13 JR HC 0 PH L AR WI 50 MA LL 0 CY IA MG M OF F TA BL CY ET NT HI AN A FU 63 08 10 2 30 30 EA 32 MC Ac RO 30 -2 -[address] 80 KE ti SE 40 9- 3- 00 SI 32 LA ve LA 62 20 20 0 DE E DE 51 13 13 JR 0 PH 40 AR WI MA LL MG CY IA M TA OF F BL ET CY NT HI AN A EX 00 08 10 2 30 30 EA 23 MC Ac FO 07 -1 -[address] 73 KE ti RG 80 9- 9- 00 SI 45 LA ve E 48 20 20 DE E 10 91 11 11 JR -1 5 PH 60 AR [place] MA LL MG CY IA M TA OF F BL ET CY NT HI AN A ME 00 08 10 1 30 30 EA 23 BE Ac TF 09 -2 -[address] 77 SS ti OR 31 3- 8- 00 SI 83 ON ve LA 04 20 20 DE N 81 11 [...] AC 40 4- 4- 00 SI 01 LA ve ET 70 20 20 DE E [...] UM 65 6- 0- 00 SI 46 LA ve 04 [address] 03 11 11 JR 1 PH 40 AR WI MA LL MG CY IA M CA OF F PS UL CY E NT HI AN A FU 63 09 10 3 30 30 EA 24 MC Ac RO 30 -1 -[address] 04 KE ti SE 40 2- 0- 00 SI 35 LA ve LA 62 20 20 DE E DE 51 [...] ti 10 7- 7- 00 SI 81 LA ve 54 20 20 0 DE E [...] RG 80 9- 4- 00 SI 45 LA ve E 48 20 20 DE E 10 91 11 11 JR -1 5 PH 60 AR WI MA LL MG CY IA M TA OF F BL ET CY NT HI AN A SI 16 05 09 3 30 30 EA 22 MC Ac MV 71 -3 -[address] 74 KE ti 40 1- 4- 00 SI 35 LA ve TA 68 20 20 DE E [...] 2- 2- 00 SI 16 ON ve LA 62 20 20 DE DE 51 11 [...] ti 10 7- 7- 00 SI 45 LA ve 54 20 20 0 DE E 00 11 11 JR 1 PH AR WI MA LL CY IA M OF F CY NT HI AN A CL 00 09 09 0 90 30 EA 23 MC Ac ON 09 -0 -[address] 98 KE ti AZ 30 6- 6- 00 SI 47 LA ve EP 83 20 20 DE E AM 20 11 11 JR 1 PH 0. [place] 5 MA LL MG CY IA M TA OF F BL ET CY NT HI AN A NE 00 08 08 2 30 30 EA 23 MC Ac XI 18 -3 -[address] 89 KE ti UM 65 1- 1- 00 SI 75 LA ve 04 [address] [...] 3- 3- 00 SI 83 ON ve LA 04 20 20 DE N 81 11 [...] RG 80 9- 9- 00 SI 45 LA ve E 48 20 20 DE E [...] 6- 6- 00 SI 13 ON ve LA 62 20 20 DE DE [address] 0 PH EP 40 AR HE MA N MG CY A TA OF BL ET CY NT HI AN A SI 16 05 08 3 30 30 EA 22 MC Ac MV 71 -3 -[address] 74 KE ti 40 1- 6- 00 SI 35 LA ve TA 68 20 20 DE E TI 40 11 11 JR N 3 PH 40 AR WI MA LL MG CY IA M TA OF F BL ET CY NT HI AN A CL 00 08 08 0 90 30 EA 23 MC Ac ON 09 -0 -[address] 54 KE ti AZ 30 5- 5- 00 SI 97 LA ve EP 83 20 20 DE E AM 20 11 11 JR 1 PH 0. AR [place] 5 MA LL MG CY IA M TA OF F BL ET CY NT HI AN A NE 00 05 08 2 30 30 EA 22 MC Ac XI 18 -2 -[address] 69 KE ti UM 65 5- 2- 00 SI 36 LA ve 04 [address] 03 11 11 JR 1 PH 40 AR [place] MA LL MG CY IA M CA OF F PS UL CY E NT HI AN A ZE 66 06 08 3 30 30 EA 23 MC Ac TI 58 -2 -[address] 05 KE ti A 20 3- 2- 00 SI 21 LA ve 10 41 20 20 DE E [...] RG 80 1- 6- 00 SI 11 LA ve E 48 20 20 DE E 10 91 11 11 JR -1 5 PH 60 AR WI MA LL MG CY IA M TA OF F BL ET CY NT HI AN A ME 00 05 07 1 60 30 EA 22 BE Ac TF 09 -1 -[address] 56 SS ti OR 31 7- 1- 00 SI 55 ON ve LA 04 20 20 DE N 81 11 [...] AZ 30 5- 5- 00 SI 75 LA ve EP 83 20 20 DE E AM 20 11 11 JR 1 PH 0. AR [place] 5 MA LL MG CY IA M TA OF F BL ET CY NT HI AN A FU 63 05 07 2 30 30 EA 22 BE Ac RO 30 -0 -[address] 36 SS ti SE 40 3- 4- 00 SI 75 ON ve LA 62 20 20 DE DE [address] 0 PH EP 40 AR HE MA N MG CY A TA OF BL ET CY NT HI AN A SI 16 05 07 3 30 30 EA 22 MC Ac MV 71 -3 -[address] 74 KE ti 40 2- 00 SI 35 LA ve TA 68 20 20 DE E TI 40 11 11 JR N 3 PH 40 AR [place] MA LL MG CY IA M TA OF F BL ET CY NT HI AN A NE 00 05 06 2 30 30 EA 22 MC Ac XI 18 -2 -[address] 69 KE ti UM 65 5- 5- 00 SI 36 LA ve 04 [address] 03 11 11 JR 1 PH 40 AR [place] MA LL MG CY IA M CA OF F PS UL CY E NT HI AN A ZE 66 06 06 3 30 30 EA 23 MC Ac TI 58 -2 -[address] 05 KE ti A 20 3- 3- 00 SI 21 LA ve 10 41 20 20 DE E [...] RG 80 1- 5- 00 SI 11 LA ve E 48 20 20 DE E [...] AZ 30 7- 7- 00 SI 61 LA ve EP 83 20 20 DE E AM 20 11 11 JR 1 PH 0. [place] 5 MA LL MG CY IA M TA OF F BL ET CY NT HI AN A FU 63 05 06 2 30 30 EA 22 BE Ac RO 30 -0 -[address] 36 SS ti SE 40 3- 2- 00 SI 75 ON ve LA 62 20 20 DE DE [address] 0 PH EP 40 AR HE MA N MG CY A TA OF BL ET CY NT HI AN A SI 16 05 05 3 30 30 EA 22 MC Ac MV 71 -3 -[address] 74 KE ti 40 1- 1- 00 SI 35 LA ve TA 68 20 20 DE E TI 40 11 11 JR N 3 PH 40 AR WI MA LL MG CY IA M TA OF F BL ET CY NT HI AN A NE 00 05 05 2 30 30 EA 22 MC Ac XI 18 -2 -[address] 69 KE ti UM 65 5- 6- 00 SI 36 LA ve 04 [address] [...] 7- 7- 00 SI 55 ON ve LA 04 20 20 DE N [address] HC 0 PH EP L AR HE 50 MA N 0 CY A MG OF TA BL CY ET NT HI AN A EX 00 04 05 3 30 30 EA 22 MC Ac FO 07 -1 -[address] 06 KE ti RG 80 1- 6- 00 SI 11 LA ve E 48 20 20 DE E [...] 3- 3- 00 SI 75 ON ve LA 62 20 20 DE DE 51 11 [...] UM 65 1- 5- 00 SI 04 LA ve 04 [address] 03 11 11 JR 1 PH 40 AR [place] MA LL MG CY IA M CA OF F PS UL CY E NT HI AN A SI 16 02 04 2 30 30 EA 21 MC Ac MV 71 -1 -[address] 26 KE ti 40 6- 5- 00 SI 51 LA ve TA 68 20 20 DE E TI 40 11 11 JR N 3 PH 40 AR [place] MA LL MG CY IA M TA OF F BL ET CY NT HI AN A EX 00 04 04 3 30 30 EA 22 MC Ac FO 07 -1 -[address] 06 KE ti RG 80 1- SI 11 LA ve E 48 20 20 DE E 10 91 11 11 JR -1 5 PH 60 AR [place] MA LL MG CY IA M TA OF F BL ET CY NT HI AN A 00 04 04 0 12 30 EA 22 MC Ac 59 -1 -[address] 05 KE ti 10 0- 0- 00 SI 59 LA ve 54 20 20 0 DE E 00 11 11 JR 1 PH AR WI MA LL CY IA M OF F CY NT HI AN A CL 00 04 04 0 90 30 EA 22 MC Ac ON 09 -0 -[address] 01 KE ti AZ 30 6- 6 00 SI 40 LA ve EP 83 20 20 DE E AM 20 11 11 JR 1 PH 0. [place] 5 MA LL MG CY IA M TA OF F BL ET CY NT HI AN A HY 00 04 04 2 30 30 EA [address] 59 -0 -[address] 97 KE ti OC 10 4- 4- 00 SI 70 LA ve HL 34 20 20 DE E [...] DE TA RA 10 11 11 D LA 5 PH CA DE AR MP 5 MA BE CY LL MG K OF TA BL CY ET NT HI AN A NE 00 02 03 2 30 30 EA 21 MC Ac XI 18 -2 -[address] 33 KE ti UM 65 1- 2- 00 SI 04 LA ve 04 [address] 03 11 11 JR 1 PH 40 AR [place] MA LL MG CY IA M CA OF F PS UL CY E NT HI AN A SI 16 02 03 2 30 30 EA 21 MC Ac MV 71 -1 -[address] 26 KE ti 40 6- 2- 00 SI 51 LA ve TA 68 20 20 DE E [...] RG 80 3 9 00 SI 32 LA ve E 48 20 20 DE E 10 91 10 11 JR -1 5 PH 60 AR [place] MA LL MG CY IA M TA OF F BL ET CY NT HI AN A VT 00 01 03 2 20 5 EA 20 MC Ac OM 78 -1 -[address] 84 KE ti ET 11 7 9 SI 38 LA ve NG 83 20 20 DE E ZI 01 11 11 JR NE 0 PH AR WI 25 MA LL CY IA MG M OF F TA BL CY ET NT HI AN A CL 00 03 03 0 90 30 EA 21 MC Ac ON 09 -0 -[address] 58 KE ti AZ 30 7 7 SI 91 LA ve EP 83 20 20 DE E AM 20 11 11 JR 1 PH 0. AR [place] 5 MA LL MG CY IA M TA OF F BL ET CY NT HI AN A HY 00 12 03 2 30 30 EA [address] 59 -2 -[address] 58 KE ti OC 10 9- 4 SI 00 LA ve HL 34 20 20 DE E [...] 33 KE ti UM 65 SI 04 LA ve 04 [address] 03 11 11 JR 1 PH 40 AR [place] MA LL MG CY IA M CA OF F PS UL CY E NT HI AN A FL 00 01 02 1 7. 7 EA 20 MC Ac UC 17 -1 -[address] 81 KE ti ON 25 5- 6- 0 SI 97 LA ve AZ 41 20 20 DE E OL 14 11 11 JR E 6 PH 10 AR WI 0 MA LL MG CY IA M TA OF F BL ET CY NT HI AN A SI 16 02 02 2 30 30 EA 21 MC Ac MV 71 -1 -[address] 26 KE ti 40 6 6 00 SI 51 LA ve TA 68 20 20 DE E TI 40 11 11 JR N 3 PH 40 AR WI MA LL MG CY IA M TA OF F BL ET CY NT HI AN A [place] 00 01 02 1 [address] 16 -1 -[address] 84 KE ti AT 80 7- 5- 00 SI 39 LA ve IN 08 20 20 DE E -T 16 11 11 JR RI 0 PH AM AR WI CI MA LL NO CY IA LO M NE OF F CR CY EA NT M HI AN A 00 02 02 0 12 30 EA 21 Ac 59 -1 -[address] 20 KE ti 10 SI 16 LA ve 54 20 20 0 DE E 00 11 11 JR 1 PH AR WI MA LL CY IA M OF F CY NT HI AN A CL 00 12 02 2 90 30 EA 20 Ac ON 09 -0 -[address] 32 KE ti AZ 30 9 7- 00 SI 83 LA ve EP 83 20 20 DE E AM 20 10 11 JR 1 PH 0. [place] 5 MA LL MG CY IA M TA OF F BL ET CY NT HI AN A EX 00 12 02 3 30 30 EA 20 MC Ac FO 07 -0 -[address] 24 KE ti RG 80 3- 5- 00 SI 32 LA ve E 48 20 20 DE E 10 91 10 11 JR -1 5 PH 60 AR [place] MA LL MG CY IA M TA OF F BL ET CY NT HI AN A HY 00 12 01 2 30 30 EA [address] 59 -2 -[address] 58 KE ti OC 10 9- 0- 00 SI 00 LA ve HL 34 20 20 DE E [...] UM 65 8- 0- 00 SI 05 LA ve 04 [address] 03 10 11 JR 1 PH 40 AR [place] MA LL MG CY IA M CA OF F PS UL CY E NT HI AN A VT 00 01 01 2 20 5 EA 20 MC Ac OM 78 -1 -[address] 84 KE ti ET 11 7- 7- 00 SI 38 LA ve NG 83 20 20 DE E ZI 01 11 11 JR NE 0 PH AR WI 25 MA LL CY IA MG M OF F TA BL CY ET NT HI AN A [place] 00 01 01 1 60 4 EA [address] 16 -1 -[address] 84 KE ti AT 80 7- 7- 00 SI 39 LA ve IN 08 20 20 DE E [...] ON 25 5- 5- 0 SI 97 LA ve AZ 41 20 20 DE E OL 14 11 11 JR E 6 PH 10 AR WI 0 MA LL MG CY IA M TA OF F BL ET CY NT HI AN A 00 01 01 0 30 15 EA 20 MC Ac 14 -1 -[address] 81 KE ti 31 5- 5- 00 SI 98 LA ve 47 20 20 DE E 70 11 11 JR 5 PH AR WI MA LL CY IA M OF F CY NT HI AN A SI 16 12 01 1 30 30 EA 20 MC Ac MV 71 -1 -[address] 42 KE ti 40 6- 5- 00 SI 49 LA ve TA 68 20 20 DE E TI 40 10 11 JR N 3 PH 40 AR WI MA LL MG CY IA M TA OF F BL ET CY NT HI AN A MU 00 01 01 0 22 4 EA 20 MC Ac PI 09 - -[address] 81 KE ti RO 31 4- 4- 00 SI 11 LA ve CI 01 20 20 DE E [...] AM 60 0- 0- 00 SI 99 LA ve ET 27 20 20 DE E HO 20 11 11 JR XA 5 PH ZO AR WI LE MA LL -T CY IA MP M OF F DS CY TA NT BL HI ET AN A MU 00 01 01 0 22 4 EA 20 MC Ac PI 09 -[address] 76 KE ti RO 31 0- 0- 00 SI 00 LA ve CI 01 20 20 DE E N 04 11 11 JR 2% 2 PH AR WI OI MA LL NT CY IA ME M NT OF F CY NT HI AN A CL 00 12 01 2 90 30 EA 20 MC Ac ON 09 -0 -[address] 32 KE ti AZ 30 9- 8 00 SI 83 LA ve EP 83 20 20 DE E AM 20 10 11 JR 1 PH 0. AR [place] 5 MA LL MG CY IA M TA OF F BL ET CY NT HI AN A EX 00 12 01 3 30 30 EA 20 MC Ac FO 07 -0 -[address] 24 KE ti RG 80 3- 4- 00 SI 32 LA ve E 48 20 20 DE E 10 91 10 11 JR -1 5 PH 60 AR [place] MA LL MG CY IA M TA OF F BL ET CY NT HI AN A HY 00 12 12 2 30 30 EA [address] 59 -2 -[address] 58 KE ti OC 10 9 SI 00 LA ve HL 34 20 20 DE E [...] UM 65 8- 0- 00 SI 05 LA ve 04 [address] 03 10 10 JR 1 PH 40 AR [place] MA LL MG CY IA M CA OF F PS UL CY E NT HI AN A SI 16 12 12 1 30 30 EA 20 MC Ac MV 71 -1 -[address] 42 KE ti 40 6 6 00 SI 49 LA ve TA 68 20 20 DE E TI 40 10 10 JR N 3 PH 40 AR [place] MA LL MG CY IA M TA OF F BL ET CY NT HI AN A CL 00 12 12 2 90 30 EA 20 MC Ac ON 09 -0 -[address] 32 KE ti AZ 30 SI 83 LA ve EP 83 20 20 DE E AM 20 10 10 JR 1 PH 0. [place] 5 MA LL MG CY IA M TA OF F BL ET CY NT HI AN A EX 00 12 12 3 30 30 EA 20 MC Ac FO 07 -0 -[address] 24 KE ti RG 80 3- 3 00 SI 32 LA ve E 48 20 20 DE E 10 91 10 10 JR -1 5 PH 60 AR [place] MA LL MG CY IA M TA OF F BL ET CY NT HI AN A HY 00 09 11 2 30 30 EA [address] 59 -2 -[address] 23 KE ti OC 10 SI 17 LA ve HL 34 20 20 DE E [...] UM 65 8- 0- 00 SI 05 LA ve 04 [address] 03 10 10 JR 1 PH 40 AR [place] MA LL MG CY IA M CA OF F PS UL CY E NT HI AN A SI 16 08 11 3 30 30 EA 18 MC Ac MV 71 -0 -[address] 64 KE ti 40 9- 5- 00 SI 89 LA ve TA 68 20 20 DE E TI 40 10 10 JR N 3 PH 40 AR [place] MA LL MG CY IA M TA OF F BL ET CY NT HI AN A CL 00 11 11 0 90 30 EA 19 MC Ac ON 09 -0 -[address] 88 KE ti AZ 30 8- 8- 00 SI 62 LA ve EP 83 20 20 DE E AM 20 10 10 JR 1 PH 0. [place] 5 MA LL MG CY IA M TA OF F BL ET CY NT HI AN A EX 00 05 11 5 30 30 EA 17 MC Ac FO 07 -2 -[address] 70 KE ti RG 80 2- 3- 00 SI 24 LA ve E 48 20 20 DE E 10 91 10 10 JR -1 5 PH 60 AR [place] MA LL MG CY IA M TA OF F BL ET CY NT HI AN A LE 00 08 10 2 30 30 EA 18 MC Ac VO 37 -1 -[address] 75 KE ti TH 81 8- 3 00 SI 58 LA ve YR 80 20 20 DE E OX 30 10 10 JR IN 1 PH E AR WI 50 MA LL CY IA MC M G OF F TA BL CY ET NT HI AN A HY 00 09 10 2 30 30 EA [address] 59 -2 -[address] 23 KE ti OC 10 1- 3- 00 SI 17 LA ve HL 34 20 20 DE E [...] UM 65 8- 8- 00 SI 05 LA ve 04 [address] 03 10 10 JR 1 PH 40 AR [place] MA LL MG CY IA M CA OF F PS UL CY E NT HI AN A SI 16 08 10 3 30 30 EA 18 MC Ac MV 71 -0 -[address] 64 KE ti 40 9- 5- 00 SI 89 LA ve TA 68 20 20 DE E TI 40 10 10 JR N 3 PH 40 AR [place] MA LL MG CY IA M TA OF F BL ET CY NT HI AN A 00 10 10 0 12 30 EA 19 MC Ac 59 -1 -[address] 53 KE ti 10 3- 3 00 SI 11 LA ve 54 20 20 0 DE E 00 10 10 JR 1 PH AR WI MA LL CY IA M OF F CY NT HI AN A CL 00 10 10 0 90 30 EA 19 Ac ON 09 -0 -[address] 46 KE ti AZ 30 8 8 SI 44 LA ve EP 83 20 20 DE E AM 20 10 10 JR 1 PH 0. AR [place] 5 MA LL MG CY IA M TA OF F BL ET CY NT HI AN A EX 00 05 10 5 30 30 EA 17 MC Ac FO 07 -2 -[address] 70 KE ti RG 80 2- 2- 00 SI 24 LA ve E 48 20 20 DE E 10 91 10 10 JR -1 5 PH 60 AR [place] MA LL MG CY IA M TA OF F BL ET CY NT HI AN A GALLAGHER 53 09 09 0 20 10 EA 19 MC Ac LF 74 -2 -[address] 28 KE ti AM 60 SI 32 LA ve ET 27 20 20 DE E HO 20 10 10 JR XA 5 PH ZO AR WI LE MA LL -T CY IA MP M OF F DS CY TA NT BL HI ET AN A LE 00 08 09 2 30 30 EA 18 MC Ac VO 37 -1 -[address] 75 KE ti TH 81 8 SI 58 LA ve YR 80 20 20 DE E OX 30 10 10 JR IN 1 PH E [place] 50 MA LL CY IA MC M G OF F TA BL CY ET NT HI AN A HY 00 09 09 2 30 30 EA [address] 59 -2 -[address] 23 KE ti OC 10 1- SI 17 LA ve HL 34 20 20 DE E OR 70 10 10 JR OT 1 PH HI AR WI [place] MA LL ID CY IA E M 12 OF F .5 CY MG NT HI CP AN A SI 16 08 09 3 30 30 EA 18 MC Ac MV 71 -0 -[address] 64 KE ti 40 9- 4 00 SI 89 LA ve TA 68 20 20 DE E TI 40 10 10 JR N 3 PH 40 AR [place] MA LL MG CY IA M TA OF F BL ET CY NT HI AN A 00 09 09 0 12 30 EA 19 MC Ac 59 -1 -[address] 10 KE ti 10 3- 3- 00 SI 99 LA ve 54 20 20 0 DE E 00 10 10 JR 1 PH AR WI MA LL CY IA M OF F CY NT HI AN A CL 00 09 09 0 90 30 EA 19 MC Ac ON 09 -0 -[address] 04 KE ti AZ 30 8- 8- 00 SI 54 LA ve EP 83 20 20 DE E AM 20 10 10 JR 1 PH 0. [place] 5 MA LL MG CY IA M TA OF F BL ET CY NT HI AN A EX 00 05 09 5 30 30 EA 17 MC Ac FO 07 -2 -[address] 70 KE ti RG 80 2- 1- 00 SI 24 LA ve E 48 20 20 DE E [...] OC 10 7- 8- 00 SI 77 LA ve HL 34 20 20 DE E [...] TH 81 8- 8- 00 SI 58 LA ve YR 80 20 20 DE E OX 30 10 10 JR IN 1 PH E [place] WI 50 MA LL CY IA MC M G OF F TA BL CY ET NT HI AN A 00 08 08 0 12 30 EA 18 MC Ac 59 -1 -[address] 71 KE ti 10 4- 4- 00 SI 12 LA ve 54 20 20 0 DE E 00 10 10 JR 1 PH AR WI MA LL CY IA M OF F CY NT HI AN A NE 00 08 08 3 60 30 EA 18 MC Ac XI 18 -0 -[address] 64 KE ti UM 65 9- 9- 00 SI 88 LA ve 04 [address] 03 10 10 JR 1 PH 40 AR [place] MA LL MG CY IA M CA OF F PS UL CY E NT HI AN A SI 16 08 08 3 30 30 EA 18 MC Ac MV 71 -0 -[address] 64 KE ti 40 9- 9- 00 SI 89 LA ve TA 68 20 20 DE E TI 40 10 10 JR N 3 PH 40 AR [place] MA LL MG CY IA M TA OF F BL ET CY NT HI AN A CL 00 08 08 0 90 30 EA 18 MC Ac ON 09 -0 -[address] 64 KE ti AZ 30 9- 9 00 SI 45 LA ve EP 83 20 20 DE E AM 20 10 10 JR 1 PH 0. [place] 5 MA LL MG CY IA M TA OF F BL ET CY NT HI AN A EX 00 05 07 5 30 30 EA 17 MC Ac FO 07 -2 -[address] 70 KE ti RG 80 2- 8- 00 SI 24 LA ve E 48 20 20 DE E 10 91 10 10 JR -1 5 PH 60 AR [place] MA LL MG CY IA M TA OF F BL ET CY NT HI AN A HY 00 05 07 3 30 30 EA [address] 59 -0 -[address] 50 KE ti OC 10 7- 0- 00 SI 77 LA ve HL 34 20 20 DE E [...] TH 81 7- 0- 00 SI 12 LA ve YR 80 20 20 DE E OX 30 10 10 JR IN 1 PH E [place] 50 MA LL CY IA MC M G OF F TA BL CY ET NT HI AN A CL 00 07 07 0 90 30 EA 18 MC Ac ON 09 -0 -[address] 26 KE ti AZ 30 8- 8- 00 SI 89 LA ve EP 83 20 20 DE E [...] UM 65 7- 3- 00 SI 12 LA ve 04 [address] 03 10 10 JR 1 PH 40 AR [place] MA LL MG CY IA M CA OF F PS UL CY E NT HI AN A SI 16 02 07 4 30 30 EA 16 MC Ac MV 72 -1 -[address] 35 KE ti 90 2- 3- 00 SI 46 LA ve TA 00 20 20 DE E TI 61 10 10 JR N 7 PH 40 AR [place] MA LL MG CY IA M TA OF F BL ET CY NT HI AN A EX 00 05 06 5 30 30 EA 17 MC Ac FO 07 -2 -[address] 70 KE ti RG 80 2- 7- 00 SI 24 LA ve E 48 20 20 DE E 10 91 10 10 JR -1 5 PH 60 AR [place] MA LL MG CY IA M TA OF F BL ET CY NT HI AN A 00 06 06 0 12 30 EA 17 MC Ac 59 -1 -[address] 97 KE ti 10 4 4 00 SI 41 LA ve 54 20 20 0 DE E 00 10 10 JR 1 PH AR WI MA LL CY IA M OF F CY NT HI AN A LE 00 04 06 3 30 30 EA 17 MC Ac VO 37 -0 -[address] 10 KE ti TH 81 7- 1- 00 SI 12 LA ve YR 80 20 20 DE E OX 30 10 10 JR IN 1 PH E [place] 50 MA LL CY IA MC M G OF F TA BL CY ET NT HI AN A HY 00 05 06 3 30 30 EA [address] 59 -0 -[address] 50 KE ti OC 10 7- 1- 00 SI 77 LA ve HL 34 20 20 DE E [...] AZ 30 5- 5- 00 SI 85 LA ve EP 83 20 20 DE E AM 20 10 10 JR 1 PH 0. AR [place] 5 MA LL MG CY IA M TA OF F BL ET CY NT HI AN A NE 00 03 05 3 30 30 EA 16 MC Ac XI 18 -1 -[address] 82 KE ti UM 65 7- 9- 00 SI 12 LA ve 04 [address] 03 10 10 JR 1 PH 40 AR [place] MA LL MG CY IA M CA OF F PS UL CY E NT HI AN A SI 65 02 05 3 30 30 EA 16 MC Ac MV 86 -1 -[address] 35 KE ti 20 2- 9- 00 SI 46 LA ve TA 05 20 20 DE E TI 33 10 10 JR N 0 PH 40 AR [place] MA LL MG CY IA M TA OF F BL ET CY NT HI AN A EX 00 05 05 5 30 30 EA 17 MC Ac FO 07 -2 -[address] 70 KE ti RG 80 2- 2- 00 SI 24 LA ve E 48 20 20 DE E 10 91 10 10 JR -1 5 PH 60 AR [place] MA LL MG CY IA M TA OF F BL ET CY NT HI AN A 00 05 05 0 12 30 EA 17 MC Ac 59 -1 -[address] 61 KE ti 10 5- 5- 00 SI 05 LA ve 54 20 20 0 DE E 00 10 10 JR 1 PH AR WI MA LL CY IA M OF F CY NT HI AN A LE 00 04 05 3 30 30 EA 17 MC Ac VO 37 -0 -[address] 10 KE ti TH 81 7- 7- 00 SI 12 LA ve YR 80 20 20 DE E OX 30 10 10 JR IN 1 PH E [place] 50 MA LL CY IA MC M G OF F TA BL CY ET NT HI AN A HY 00 05 05 3 30 30 EA [address] 59 -0 -[address] 50 KE ti OC 10 7- 7- 00 SI 77 LA ve HL 34 20 20 DE E [...] AZ 30 6- 6- 00 SI 98 LA ve EP 83 20 20 DE E AM 20 10 10 JR 1 PH 0. [place] 5 MA LL MG CY IA M TA OF F BL ET CY NT HI AN A SI 65 02 04 3 30 30 EA 16 MC Ac MV 86 -1 -[address] 35 KE ti 20 2- 3- 00 SI 46 LA ve TA 05 20 20 DE E TI 33 10 10 JR N 0 PH 40 AR [place] MA LL MG CY IA M TA OF F BL ET CY NT HI AN A NE 00 03 04 3 30 30 EA 16 MC Ac XI 18 -1 -[address] 82 KE ti UM 65 7- 3- 00 SI 12 LA ve 04 [address] 03 10 10 JR 1 PH 40 AR [place] MA LL MG CY IA M CA OF F PS UL CY E NT HI AN A 00 04 04 0 12 30 EA 17 MC Ac 59 -1 -[address] 20 KE ti 10 5- 5 SI 16 LA ve 54 20 20 0 DE E 00 10 10 JR 1 PH AR [place] MA LL CY IA M OF F CY NT HI AN A CL 00 04 04 0 60 30 EA 17 MC Ac ON .0 ST 20 KE ti AZ 30 5- 5 SI 17 LA ve EP 83 20 20 DE E AM 20 10 10 JR 1 PH 0. [place] 5 MA LL MG CY IA M TA OF F BL ET CY NT HI AN A HY 00 01 04 3 30 30 EA [address] 59 -0 -[address] 81 KE ti OC 10 4 SI 52 LA ve HL 34 20 20 DE E OR 70 10 10 JR OT 1 PH HI AR [place] MA LL ID CY IA E M 12 OF F .5 CY MG NT HI CP AN A LE 00 04 04 3 30 30 EA 17 MC Ac VO 37 -0 -[address] 10 KE ti TH 81 7 7 SI 12 LA ve YR 80 20 20 DE E OX 30 10 10 JR IN 1 PH E [place] 50 MA LL CY IA MC M G OF F TA BL CY ET NT HI AN A SI 65 02 03 3 30 30 EA 16 MC Ac MV 86 -1 -[address] 35 KE ti 20 2- 7- SI 46 LA ve TA 05 20 20 DE E TI 33 10 10 JR N 0 PH 40 AR [place] MA LL MG CY IA M TA OF F BL ET CY NT HI AN A CL 00 03 03 0 60 30 EA 16 MC Ac ON .0 ST 81 KE ti AZ 30 7- 7 SI 84 LA ve EP 83 20 20 DE E AM 20 10 10 JR 1 PH 0. [place] 5 MA LL MG CY IA M TA OF F BL ET CY NT HI AN A NE 00 03 03 3 30 30 EA 16 MC Ac XI 18 -1 -[address] 82 KE ti UM 65 7- 7- 00 SI 12 LA ve 04 [address] 03 10 10 JR 1 PH 40 [place] MA LL MG CY IA M CA OF F PS UL CY E NT HI AN A 00 03 03 0 12 30 EA 16 MC Ac 59 -1 -[address] 81 KE ti 10 7- 7 00 SI 83 LA ve 54 20 20 0 DE E 00 10 10 JR 1 PH AR [place] MA LL CY IA M OF F CY NT HI AN A LE 00 12 03 3 30 30 EA 15 MC Ac VO 37 -0 -[address] 38 KE ti TH 81 2- 8 00 SI 79 LA ve YR 80 20 20 DE E OX 30 09 10 JR IN 1 PH E [place] 50 MA LL CY IA MC M G OF F TA BL CY ET NT HI AN A HY 00 01 03 3 30 30 EA [address] 59 -0 -[address] 81 KE ti OC 10 4 8 00 SI 52 LA ve HL 34 20 20 DE E OR 70 10 10 JR OT 1 PH HI AR [place] MA LL ID CY IA E M 12 OF F .5 CY MG NT HI CP AN A CL 00 02 02 00 60 30 EA 16 MC Ac ON 09 -1 -[address] 37 KE ti AZ 30 5 6 SI 94 LA ve EP 83 20 20 DE E AM 20 10 10 JR 1 PH 0. [place] 5 MA LL MG CY IA M TA OF F BL CY ET NT HI AN A 00 02 02 00 12 30 EA 16 MC Ac 59 -1 -[address] 37 KE ti 10 5- 6- SI 95 LA ve 54 20 20 0 DE E 00 10 10 JR 1 PH AR WI MA LL CY IA M OF F CY NT HI AN A SI 65 02 02 00 30 30 EA 16 MC Ac MV 86 -1 -[address] 35 KE ti 20 2- 6- 00 SI 46 LA ve TA 05 20 20 DE E TI 33 10 10 JR N 0 PH 40 AR [place] MA LL MG CY IA M TA OF F BL CY ET NT HI AN A NE 00 08 02 05 30 30 EA 14 MC Ac XI 18 -3 -[address] 06 KE ti UM 65 1- 1- 00 SI 00 LA ve 04 [address] 03 09 10 JR 1 PH 40 AR [place] MA LL MG CY IA M CA OF F PS CY UL NT E HI AN A LE 00 12 02 02 30 30 EA 15 MC Ac VO 37 -0 -[address] 38 KE ti TH 81 2 SI 79 LA ve YR 80 20 20 DE E OX 30 09 10 JR IN 1 PH E AR [place] 50 MA LL CY IA MC M G OF F TA CY BL NT ET HI AN A HY 00 11 29 01 30 30 EA [address] 59 -0 -[address] 81 KE ti OC 10 4 SI 52 LA ve HL 34 20 20 DE E OR 70 10 10 JR OT 1 PH HI AR [place] MA LL ID CY IA E M 12 OF F .5 CY NT MG HI AN CP A 00 11 28 99 12 30 EA 15 MC Ac 59 -1 -[address] 95 KE ti 10 4 8 SI 82 LA ve 54 20 20 0 DE E 00 10 10 JR 1 PH AR [place] MA LL CY IA M OF F CY NT HI AN A CL 00 11 28 00 60 30 EA 15 MC Ac ON 09 -1 -[address] 95 KE ti AZ 30 SI 83 LA ve EP 83 20 20 DE E AM 20 10 10 JR 1 PH 0. AR [place] 5 MA LL MG CY IA M TA OF F BL CY ET NT HI AN A SI 65 09 01 03 30 30 EA 14 MC Ac MV 86 -3 -[address] 49 KE ti 20 0 8 SI 48 LA ve TA 05 20 20 DE E TI 33 09 10 JR N 0 PH 40 AR [place] MA LL MG CY IA M TA OF F BL CY ET NT HI AN A NE 00 08 01 04 30 30 EA 14 MC Ac XI 18 -3 -[address] 06 KE ti UM 65 SI 00 LA ve 04 [address] 03 09 10 JR 1 PH 40 AR [place] MA LL MG CY IA M CA OF F PS CY UL NT E HI AN A LE 00 12 01 01 30 30 EA 15 MC Ac VO 37 -0 -[address] 38 KE ti TH 81 2- 4 SI 79 LA ve YR 80 20 20 DE E OX 30 09 10 JR IN 1 PH E AR [place] 50 MA LL CY IA MC M G OF F TA CY BL NT ET HI AN A HY 00 11 28 00 30 30 EA [address] 59 -0 -[address] 81 KE ti OC 10 4- 4- 00 SI 52 LA ve HL 34 20 20 DE E [...] [place] 30 4- 1- 00 SI 09 LA ve EP 83 20 20 DE E AM 20 09 09 JR 1 PH 0. [place] 5 MA LL MG CY IA M TA OF F BL CY ET NT HI AN A 00 12 12 00 12 30 EA 15 MC Ac 59 -1 -[address] 56 KE ti 10 4- 1- 00 SI 08 LA ve 54 20 20 0 DE E 00 09 09 JR 1 PH AR [place] MA LL CY IA M OF F CY NT HI AN A HY 00 07 12 04 30 30 EA [address] 59 -1 -[address] 47 KE ti OC 10 4- 7- 00 SI 77 LA ve HL 34 20 20 DE E OR 70 09 09 JR OT 1 PH HI AR WI [place] MA LL ID CY IA E M 12 OF F .5 CY NT MG HI AN CP A NE 00 08 12 03 30 30 EA 14 Ac XI 18 -3 -[address] 06 KE ti UM 65 1- 7- 00 SI 00 LA ve 04 [address] 03 09 09 JR 1 PH 40 AR [place] MA LL MG CY IA M CA OF F PS CY UL NT E HI AN A LE 00 12 12 00 30 30 EA 15 Ac VO 37 -0 -[address] 38 KE ti TH 81 2- 7- 00 SI 79 LA ve YR 80 20 20 DE E OX 30 09 09 JR IN 1 PH E AR [place] 50 MA LL CY IA MC M G OF F TA CY BL NT ET HI AN A SI 65 09 12 02 30 30 EA 14 Ac MV 86 -3 -[address] 49 KE ti 20 0- 7- 00 SI 48 LA ve TA 05 20 20 DE E TI 33 09 09 JR N 0 PH 40 AR [place] MA LL MG CY IA M TA OF F BL CY ET NT HI AN A CL 00 11 12 00 60 30 EA 15 MC Ac ON 09 -1 -[address] 13 KE ti [place] 30 4- 3- 00 SI 29 LA ve EP 83 20 20 DE E AM 20 09 09 JR 1 PH 0. [place] 5 MA LL MG CY IA M TA OF F BL CY ET NT HI AN A NE 00 08 11 02 30 30 EA 14 MC Ac XI 18 -3 -[address] 06 KE ti UM 65 1 9 SI 00 LA ve 04 [address] 03 09 09 JR 1 PH 40 [place] MA LL MG CY IA M CA OF F PS CY UL NT E HI AN A LE 00 07 11 03 30 30 EA 13 MC Ac VO 37 -2 -[address] 63 KE ti TH 81 7 SI 09 LA ve YR 80 20 20 DE E OX 30 09 09 JR IN 1 PH E AR [place] 50 MA LL CY IA MC M G OF F TA CY BL NT ET HI AN A SI 65 09 11 01 30 30 EA 14 MC Ac MV 86 -3 -[address] 49 KE ti 20 0 9 SI 48 LA ve TA 05 20 20 DE E TI 33 09 09 JR N 0 PH 40 AR [place] MA LL MG CY IA M TA OF F BL CY ET NT HI AN A HY 00 07 11 03 30 30 EA [address] 59 -1 -[address] 47 KE ti OC 10 4- 5- 00 SI 77 LA ve HL 34 20 20 DE E OR 70 09 09 JR OT 1 PH HI AR [place] MA LL ID CY IA E M 12 OF F .5 CY NT MG HI AN CP A 00 10 10 00 12 30 EA 14 MC Ac 59 -1 -[address] 69 KE ti 10 4- 2- 00 SI 56 LA ve 54 20 20 0 DE E 00 09 09 JR 1 PH AR [place] MA LL CY IA M OF F CY NT HI AN A CL 00 10 10 00 60 30 EA 14 MC Ac ON 09 -1 -[address] 69 KE ti [place] 30 4- 2- 00 SI 57 LA ve EP 83 20 20 DE E AM 20 09 09 JR 1 PH 0. AR [place] 5 MA LL MG CY IA M TA OF F BL CY ET NT HI AN A NE 00 08 10 01 30 30 EA 14 MC Ac XI 18 -3 -[address] 06 KE ti UM 65 1 2- SI 00 LA ve 04 [address] 03 09 09 JR 1 PH 40 AR [place] MA LL MG CY IA M CA OF F PS CY UL NT E HI AN A SI 65 09 10 00 30 30 EA 14 MC Ac MV 86 -3 -[address] 49 KE ti 20 0- 8- 00 SI 48 LA ve TA 05 20 20 DE E TI 33 09 09 JR N 0 PH 40 AR [place] MA LL MG CY IA M TA OF F BL CY ET NT HI AN A LE 00 07 10 02 30 30 EA 13 MC Ac VO 37 -2 -[address] 63 KE ti TH 81 7- 8- 00 SI 09 LA ve YR 80 20 20 DE E OX 30 09 09 JR IN 1 PH E AR [place] 50 MA LL CY IA MC M G OF F TA CY BL NT ET HI AN A HY 00 07 09 02 30 30 EA [address] 59 -1 -[address] 47 KE ti OC 10 4- 4- 00 SI 77 LA ve HL 34 20 20 DE E [...] [place] 30 4- 4- 00 SI 85 LA ve EP 83 20 20 DE E AM 20 09 09 JR 1 PH 0. AR [place] 5 MA LL MG CY IA M TA OF F BL CY ET NT HI AN A 00 09 09 00 12 30 EA 14 MC Ac 59 -1 -[address] 23 KE ti 10 4- 4- 00 SI 84 LA ve 54 20 20 0 DE E 00 09 09 JR 1 PH AR [place] MA LL CY IA M OF F CY NT HI AN A LE 00 07 09 01 30 30 EA 13 MC Ac VO 37 -2 -[address] 63 KE ti TH 81 7- 0- 00 SI 09 LA ve YR 80 20 20 DE E OX 30 09 09 JR IN 1 PH E AR [place] 50 MA LL CY IA MC M G OF F TA CY BL NT ET HI AN A NE 00 08 09 00 30 30 EA 14 MC Ac XI 18 -3 -[address] 06 KE ti UM 65 1- 0- 00 SI 00 LA ve 04 [address] 03 09 09 JR 1 PH 40 AR [place] MA LL MG CY IA M CA OF F PS CY UL NT E HI AN A CL 00 08 08 00 60 30 EA 13 MC Ac ON 09 -1 -[address] 84 KE ti [place] 30 4- 7- 00 SI 73 LA ve EP 83 20 20 DE E AM 20 09 09 JR 1 PH 0. AR [place] 5 MA LL MG CY IA M TA OF F BL CY ET NT HI AN A 00 08 08 00 12 30 EA 13 MC Ac 59 -1 -[address] 84 KE ti 10 4- 7- 00 SI 74 LA ve 54 20 20 0 DE E 00 09 09 JR 1 PH AR [place] MA LL CY IA M OF F CY NT HI AN A SI 65 05 08 03 30 30 EA 12 MC Ac MV 86 -0 -[address] 56 KE ti 20 1- 7- 00 SI 59 LA ve TA 05 20 20 DE E TI 33 09 09 JR N 0 PH 40 AR [place] MA LL MG CY IA M TA OF F BL CY ET NT HI AN A HY 00 07 08 01 30 30 EA [address] 59 -1 -[address] 47 KE ti OC 10 4- 7- 00 SI 77 LA ve HL 34 20 20 DE E [...] TH 81 7- 3- 00 SI 09 LA ve YR 80 20 20 DE E OX 30 09 09 JR IN 1 PH E AR [place] 50 MA LL CY IA MC M G OF F TA CY BL NT ET HI AN A NE 00 04 08 03 30 30 EA 12 MC Ac XI 18 -1 -[address] 35 KE ti UM 65 5- 3- 00 SI 57 LA ve 04 [address] 03 09 09 JR 1 PH 40 AR [place] MA LL MG CY IA M CA OF F PS CY UL NT E HI AN A SI 65 05 07 02 30 30 EA 12 MC Ac MV 86 -0 -[address] 56 KE ti 20 1- 0- 00 SI 59 LA ve TA 05 20 20 DE E TI 33 09 09 JR N 0 PH 40 AR [place] MA LL MG CY IA M TA OF F BL CY ET NT HI AN A HY 00 07 07 00 30 30 EA [address] 59 -1 -[address] 47 KE ti OC 10 4- 0- 00 SI 77 LA ve HL 34 20 20 DE E OR 70 09 09 JR OT 1 PH HI AR WI [place] MA LL ID CY IA E M 12 OF F .5 CY NT MG HI AN CP A 00 07 07 00 12 30 EA 13 MC Ac 59 -1 -[address] 50 KE ti 10 5- 0- 00 SI 62 LA ve 54 20 20 0 DE E 00 09 09 JR 1 PH AR [place] MA LL CY IA M OF F CY NT HI AN A CL 00 05 07 02 60 30 EA 12 MC Ac ON 09 -1 -[address] 75 KE ti AZ 30 5- 0- 00 SI 71 LA ve EP 83 20 20 DE E AM 20 09 09 JR 1 PH 0. AR [place] 5 MA LL MG CY IA M TA OF F BL CY ET NT HI AN A NE 00 04 07 02 30 30 EA 12 MC Ac XI 18 -1 -[address] 35 KE ti UM 65 5- 6- 00 SI 57 LA ve 04 [address] [...] OC 10 2- 2- 00 SI 08 LA ve HL 34 20 20 DE E [...] CL 40 3- 2- 00 SI 20 LA ve OP 06 20 20 DE E RA 20 09 09 JR LA 6 PH DE AR WI MA LL 10 CY IA M MG OF F CY TA NT BL HI ET AN A CL 00 05 07 01 60 30 EA 12 MC Ac ON 09 -1 -[address] 75 KE ti AZ 30 5- 2- 00 SI 71 LA ve EP 83 20 20 DE E AM 20 09 09 JR 1 PH 0. AR [place] 5 MA LL MG CY IA M TA OF F BL CY ET NT HI AN A 00 06 07 00 12 30 EA 13 MC Ac 59 -1 -[address] 16 KE ti 10 6- 2- 00 SI 06 LA ve 54 20 20 0 DE E [...] ti 20 1- 8- 00 SI 59 LA ve TA 05 20 20 DE E TI 33 09 09 JR N 0 PH 40 AR [place] MA LL MG CY IA M TA OF F BL CY ET NT HI AN A 00 05 06 00 12 30 EA 12 MC Ac 59 -1 -[address] 77 KE ti 10 8- 4 SI 89 LA ve 54 20 20 0 DE E 00 09 09 JR 1 PH AR [place] MA LL CY IA M OF F CY NT HI AN A NE 00 04 06 01 30 30 EA 12 MC Ac XI 18 -1 -[address] 35 KE ti UM 65 5- 4 SI 57 LA ve 04 [address] [...] XI 52 5- 1- 00 SI 72 LA ve CA 55 20 20 DE E M 40 09 09 JR 15 1 PH AR WI MG MA LL CY IA TA M BL OF F ET CY NT HI AN A HY 00 05 05 00 30 30 EA [address] 59 -1 -[address] 72 KE ti OC 10 2- 1- 00 SI 08 LA ve HL 34 20 20 DE E [...] AZ 30 5- 1- 00 SI 71 LA ve EP 83 20 20 DE E AM 20 09 09 JR 1 PH 0. AR [place] 5 MA LL MG CY IA M TA OF F BL CY ET NT HI AN A SI 65 05 05 00 30 30 EA 12 MC Ac MV 86 -0 -[address] 56 KE ti 20 1- 7- 00 SI 59 LA ve TA 05 20 20 DE E TI 33 09 09 JR N 0 PH 40 AR [place] MA LL MG CY IA M TA OF F BL CY ET NT HI AN A NE 00 04 04 00 30 30 EA 12 MC Ac XI 18 -1 -[address] 35 KE ti UM 65 5- 3- 00 SI 57 LA ve 04 [address] [...] -1 -[address] 90 RV ti VT 40 6- 3- 00 SI 94 EY [...] -1 -[address] 90 RV ti VT 40 6- 6- 00 SI 94 EY [...] 20 20 DE OX 30 09 09 ANEJLICA IN 1 PH DI E AR 50 [...] ti 20 6- 6- 00 SI 41 LA ve TA 05 20 20 DE E TI 33 08 09 JR N 0 PH 40 AR [place] MA LL MG CY IA M TA OF F BL CY ET NT HI AN A NE 00 03 03 00 30 30 EA 11 MC Ac XI 18 -1 -[address] 83 KE ti UM 65 0- 6- 00 SI 05 LA ve 04 [address] 03 09 09 JR 1 PH 40 AR [place] MA LL MG CY IA M CA OF F PS CY UL NT E HI AN A 00 02 02 00 12 30 EA 11 MC Ac 59 -1 -[address] 48 KE ti 10 6- 6 00 SI 90 LA ve 54 20 20 0 DE E 00 09 09 JR 1 PH AR [place] MA LL CY IA M OF F CY NT HI AN A ME 49 11 02 03 30 30 EA 10 MC Ac TO 88 -0 -[address] 14 KE ti VT 40 5- 6- 00 SI 65 LA ve OL 40 20 20 DE E OL 50 08 09 JR 1 PH GALLAGHER AR WI CC MA LL CY IA ER M OF F 50 CY NT MG HI AN TA A B SI 65 10 02 04 30 30 EA 99 MC Ac MV 86 -0 -[address] 75 KE ti 20 6- 6- 00 SI 41 LA ve TA 05 20 20 DE E TI 33 08 09 JR N 0 PH 40 AR [place] MA LL MG CY IA M TA OF F BL CY ET NT HI AN A CL 00 02 02 00 60 30 EA 11 MC Ac ON 09 -1 -[address] 48 KE ti AZ 30 6- 6- 00 SI 89 LA ve EP 83 20 20 DE E AM 20 09 09 JR 1 PH 0. AR [place] 5 MA LL MG CY IA M TA OF F BL CY ET NT HI AN A LE 00 01 02 01 30 30 EA 11 MC Ac VO 37 -1 -[address] 07 KE ti TH 81 3- 6- 00 SI 93 LA ve YR 80 20 20 DE E [...] UM 65 6- 2- 00 SI 45 LA ve 04 [address] 03 08 09 JR 1 PH 40 AR [place] MA LL MG CY IA M CA OF F PS CY UL NT E HI AN A LE 00 01 01 00 30 30 EA 11 MC Ac VO 37 -1 -[address] 07 KE ti TH 81 3- 0- 00 SI 93 LA ve YR 80 20 20 DE E [...] UM 65 6- 5- 00 SI 45 LA ve 04 [address] 03 08 09 JR 1 PH 40 AR [place] MA LL MG CY IA M CA OF F PS CY UL NT E HI AN A SI 65 10 01 03 30 30 EA 99 MC Ac MV 86 -0 -[address] 75 KE ti 20 6- 5- 00 SI 41 LA ve TA 05 20 20 DE E [...] -0 -[address] 14 KE ti VT 40 5- 5- 00 SI 65 LA ve OL 40 20 20 DE E OL 50 08 09 JR 1 PH GALLAGHER AR [place] CC MA LL CY IA ER M OF F 50 CY NT MG HI AN TA A B LE 00 11 01 01 30 30 EA 10 MC Ac VO 37 -1 -[address] 21 KE ti TH 81 0- 1- 00 SI 64 LA ve YR 80 20 20 DE E [...] -0 -[address] 14 KE ti VT 40 5- 8- 00 SI 65 LA ve OL 40 20 20 DE E OL 50 08 08 JR 1 PH GALLAGHER AR [place] CC MA LL CY IA ER M OF F 50 CY NT MG HI AN TA A B SI 65 10 12 02 30 30 EA 99 MC Ac MV 86 -0 -[address] 75 KE ti 20 6- 8- 00 SI 41 LA ve TA 05 20 20 DE E TI 33 08 08 JR N 0 PH 40 AR [place] MA LL MG CY IA M TA OF F BL CY ET NT HI AN A 60 12 12 00 12 3 EA 10 MC Ac 25 -0 -[address] 54 KE ti 80 4- 8- 00 SI 81 LA ve 23 20 20 0 DE E 91 08 08 JR 6 PH AR [place] MA LL CY IA M OF F CY NT HI AN A NE 00 08 12 03 30 30 EA 99 MC Ac XI 18 -2 -[address] 22 KE ti UM 65 6- 8- 00 SI 45 LA ve 04 [address] 03 08 08 JR 1 PH 40 AR [place] MA LL MG CY IA M CA OF F PS CY UL NT E HI AN A CL 00 10 12 01 60 30 EA 99 MC Ac ON 09 -1 -[address] 81 KE ti AZ 30 0- 8- 00 SI 89 LA ve EP 83 20 20 DE E [...] ti 20 6- 0- 00 SI 41 LA ve TA 05 20 20 DE E TI 33 08 08 JR N 0 PH 40 AR [place] MA LL MG CY IA M TA OF F BL CY ET NT HI AN A CL 00 10 11 00 60 30 EA 99 MC Ac ON 09 -1 -[address] 81 KE ti AZ 30 0- 0- 00 SI 89 LA ve EP 83 20 20 DE E AM 20 08 08 JR 1 PH 0. AR [place] 5 MA LL MG CY IA M TA OF F BL CY ET NT HI AN A ME 49 11 11 00 30 30 EA 10 MC Ac TO 88 -0 -[address] 14 KE ti VT 40 5- 0- 00 SI 65 LA ve OL 40 20 20 DE E OL 50 08 08 JR 1 PH GALLAGHER AR [place] CC MA LL CY IA ER M OF F 50 CY NT MG HI AN TA A B LE 00 11 11 00 30 30 EA 10 MC Ac VO 37 -1 -[address] 21 KE ti TH 81 0- 0- 00 SI 64 LA ve YR 80 20 20 DE E OX 30 08 08 JR IN 1 PH E AR [place] 50 MA LL CY IA MC M G OF F TA CY BL NT ET HI AN A NE 00 08 11 02 30 30 EA 99 MC Ac XI 18 -2 -[address] 22 KE ti UM 65 6- 7- 00 SI 45 LA ve 04 [address] [...] -0 -[address] 58 t ti VT 40 1- 3- 00 SI 13 Av [...] -0 -[address] 58 t ti VT 40 1- 1- 00 SI 13 Av [...] BL CY ET NT HI AN A VT 37 08 08 00 30 30 EA [...] 01 30 30 EA 98 No Ac VT 18 -0 -[address] 58 t [...] CY OF CY NT HI AN A VT 37 04 07 03 30 30 EA [...] 00 30 30 EA 98 No Ac VT 18 -0 -[address] 58 t [...] 9- 7- 00 SI 06 Av ve VT 50 20 20 DE ai AM 98 [...] CY BL NT ET HI AN A VT 37 04 06 02 30 30 EA [...] 01 30 30 EA 97 No Ac VT 18 -2 -[address] 75 t [...] BL CY ET NT HI AN A VT 37 04 05 01 30 30 EA [...] 00 30 30 EA 97 No Ac VT 18 -2 -[address] 75 t [...] 7- 0- 00 SI 65 Av ve VT 34 20 20 DE ai AM 30 08 08 la 1 PH bl HB AR e R MA 20 CY MG OF CY TA NT BL HI ET AN A VT 37 04 04 00 30 30 EA [...] -2 -[address] 38 t ti VT 40 7- 0- 00 SI 67 Av [...] 7- 5- 00 SI 25 Av ve VT 02 20 20 DE ai ED 20 [...] Procedure DOS Code Location Performer Comment CREATININ 12312 [facility] E BLOOD [facility] INC INC COLLECTIO 62644 LINET[facility] SUE N VENOUS 7 [facility] [place] [address] [facility] SUE UREA [facility] NITROGEN INC INC QUANTITAT RUPA DRUG TEST 83593 LAVINIA KATE PRSMV 7 NORMA TOWNSEND MD,PSC CHEMISTRY ANALYZERS DRUG TEST 35157 [facility] SUE PRSMV 7 [facility] QUAL DIR INC INC OPTICAL OBS PER DAY DRUG 11431 [facility] SCREENING 7 [facility] INC INC BENZODIAZ EPINES 1-12 ECG 49401 [facility] ROUTINE [facility] ECG INC INC W/LEAST 12 LDS TRCG ONLY W/O I&R PRQ 06619 [facility] CAHYO TRLUML 7 PHYSICIAN CORONARY S GROUP STENT W/ANGIO ONE ART/BRNCH CATH PLMT 77514 [facility] CHAYO L HRT & 7 PHYSICIAN ARTS S GROUP W/NJX & ANGIO IMG S&I MYOCARDIA 25965 LINETTE [facility] L SPECT 7 [facility] MULTIPLE INC INC STUDIES CV STRS 28387 [facility]UE TST 7 [facility] XERS&/OR INC INC RX CONT ECG TRCG ONLY TECHNETIU A9502 LINETTE LINETTE M TC-99M 7 [facility] TETROFOSM INC INC IN DX PER STUDY DOSE ECHO 96204 [facility] SUE TTHRC R-T 7 [facility] 2D INC INC W/WOM-MOD E COMPL SPEC&COLR D ECG 89855 [facility] SUE ROUTINE 7 [facility] ECG INC INC W/LEAST 12 LDS TRCG ONLY W/O I&R DRUG TEST 26835 LAVINIA KATE PRSMV 7 NORMA TOWNSEND MD,PSC CHEMISTRY ANALYZERS BLOOD 62082 LAVINIA KATE COUNT 7 DUKE TOWNSEND MD,PSC AUTO&AUTO DIFRNTL WBC COMPREHEN 59255 LAVINIA KATE SIVE 7 BOB[place] [address] LAVINIA KATE GLUTAMYLT 7 BEKAH [place] [address] LAVINIA KATE PHOSPHORU 7 Myron TOWNSEND MD,PSC INORGANIC BILIRUBIN 80479 LAVINIA KATE DIRECT 7 MD KRISTIAN,PSC HEPATOBIL 39851 [facility] SYST [facility] IMAG INC INC INC GB W/PHARMA INTERVENJ TECHNETIU A9537 [facility] SUE M TC-99M 7 [facility] MEBROFENI INC INC N DX UP TO 15 MCI ECG 47016 [facility] ROUTINE 7 [facility] ECG INC INC W/LEAST 12 LDS TRCG ONLY W/O I&R ECG 62519 [facility] ROUTINE 7 [facility] ECG INC INC W/LEAST 12 LDS TRCG ONLY W/O I&[place] [address] [facility] SUE ABDOMEN & 7 [facility] PELVIS INC INC W/O CONTRAST MATERIAL BLOOD 61108 [facility]UE COUNT [facility] COMPLETE INC INC AUTO&AUTO DIFRNTL WBC COMPREHEN 73303 [facility] SUE SIVE 7 [facility] [place] [address] [facility] SUE TROPONIN 7 [facility] [address] [facility]UE LIPASE 7 [facility] INC INC FINAL G9551 LEONEL LICEA REPR ABD 7 MEDICAL IMAG STS IMAGING W/O ASS INCIDNT FND LES NTD: CREATINE 28325 [facility] KINASE 7 [facility] TOTAL INC INC FINAL G9638 LEONEL LICEA REPORTS 7 MEDICAL W/O DOC IMAGING 1/[place] [address] [facility]UE AMYLASE 7 [facility] INC INC CREATINE 50709 [facility] SUE KINASE MB 7 [facility] FRACTION INC INC ONLY THER 93908 [facility] SUE PROPH/DX 7 [facility] NJX IV INC INC PUSH SINGLE/1S T SBST/DRUG RADIOLOGI 08406 [facility] S[facility] C EXAM 7 [facility] CHEST 2 INC INC VIEWS FRONTAL&L ATERAL ECG 23777 LINETTE MCCLAIN ROUTINE 7 [facility] W/LEAST P 12 LDS I&R ONLY CT LUMBAR 16055 LEONEL LICEA SPINE 7 MEDICAL W/O IMAGING CONTRAST ASS MATERIAL FINAL G9638 LEONEL LICEA REPORTS 7 MEDICAL W/O DOC IMAGING 1/MORE ASS DOSE REDUCTION TECH FINAL G9551 LEONEL LICEA REPR ABD 7 MEDICAL IMAG STS IMAGING W/O ASS INCIDNT FND LES NTD: COMPREHEN 16514 [facility] SUE SIVE 7 [facility] METABOLIC INC INC PANEL BLOOD 76645 [facility] SUE COUNT 7 [facility] COMPLETE INC INC AUTO&AUTO DIFRNTL WBC URNLS DIP 12786 [facility] SUE 7 [facility] STICK/TAB INC [place] [address] LEONEL LICEA ABDOMEN & 7 MEDICAL PELVIS IMAGING W/O ASS CONTRAST MATERIAL RADEX 84665 [place] NATHAN SPINE 7 LUMBOSACR CHIROPRAC AL 2/3 TIC CENTE VIEWS RADEX 21580 [place] N[place] SPINE 7 CERVICAL CHIROPRAC 2 OR 3 TIC CENTE VIEWS CHIROPRAC 57935 [place] NATHAN TIC 7 MANIPULAT CHIROPRAC RUPA TX TIC CENTE SPINAL 3-4 REGIONS APPL 26669 EMERSON NATHAN MODALITY 7 1/> AREAS CHIROPRAC ELEC TIC CENTE STIMJ UNATTENDE D DRUG TEST 44316 LINETTE VERMAON PRSMV 7 [facility] QUAL DIR INC INC OPTICAL OBS PER DAY DRUG TEST 38106 LAVINIA KATE PRSMV 7 NORMA TOWNSEND MD,[facility] CHEMISTRY ANALYZERS RADEX 65610 [facility] SUE ABDOMEN 7 [facility] COMPL INC INC W/DCBTS&/ ERC VIEWS IAADIADOO 58398 LINETTE LINETTE 7 [facility] INFLUENZA INC INC RADIOLOGI 45726 LEONEL ZULLY C EXAM 7 MEDICAL CHEST 2 IMAGING VIEWS ASS FRONTAL&L ATERAL DRUG TEST G0480 LINETTEKING SUE DEFINITV [address] [facility] [address] ID INC INC METH P DAY 1-7 DRUG CL DRUG TEST 09702 [facility] SUE PRSMV 7 [facility] QUAL DIR INC INC OPTICAL OBS PER DAY HEPATIC 92859 [facility]TE SUE FUNCTION 7 [facility] PANEL INC INC LIPID 16791 LINETTE LINETTE PANEL 7 [facility] INC INC COLLECTIO 31375 [facility] SUE N VENOUS 7 [facility] BLOOD INC INC VENIPUNCT URE BASIC 58377 LINETTE VERMAON METABOLIC 7 [facility] PANEL INC INC CALCIUM TOTAL HEMOGLOBI 65686 LIN[facility]TE SUE N 7 [facility] GLYCOSYLA INC INC SONG A1C ECG 53216 LINETTE LINETTE ROUTINE 7 [facility] ECG INC INC W/LEAST 12 LDS TRCG ONLY W/O I&R DRUG TEST 59443 LINETTE VERMAON PRSMV 7 [facility] QUAL DIR INC INC OPTICAL OBS PER DAY DRUG TEST G0480 LINETTE LINETTE DEFINITV [address] [facility] [address] [facility] [address] ID INC INC METH P DAY 1-7 DRUG CL CREATINE 75647 LIN[facility]TE SUE KINASE 7 [facility] TOTAL INC INC FINAL RPT G[address]/MRI 7 MEDICAL CHEST/NCK IMAGING /U/S NO ASS THR NOD<1.0 CM COLLECTIO 72654 LINETTE LINETTE N VENOUS 7 [facility] BLO[place] [address] [facility] SUE LIPASE 7 [facility] INC INC FINAL G9638 LEONEL DELAROSA REPORTS 7 MEDICAL W/O DOC IMAGING 1/MORE ASS DOSE REDUCTION TECH CREATINE 77232 LINETTE SUE KINASE MB 7 [facility] [place] [address] LIN[facility] SUE AMYLASE 7 [facility] INC INC NATRIURET 62463 LIN[facility]TE SUE IC 7 [facility] [place] [address] LIN[facility] SUE TROPONIN 7 [facility] QUANTITAT INC INC RUPA FIBRIN 09720 [facility] SUE DGRADJ 7 [facility] PRODUCTS INC INC D-DIMER QUAL/SEMI TODD FINAL G9551 LEONEL DELAROSA REPR ABD 7 MEDICAL IMAG STS IMAGING W/O ASS INCIDNT FND LES NTD: COMPREHEN 96688 [facility] SUE SIVE 7 [facility] [address] [facility] SUE ANGIOGRAP 7 [facility] HY CHEST INC INC W/CONTRAS T/NONCONT RAST ECG 64557 [facility] SUE ROUTINE 7 [facility] ECG INC INC W/LEAST 12 LDS TRCG ONLY W/O I&[place] [address] LEONEL DELAROSA ABDOMEN 7 MEDICAL W/O IMAGING CONTRAST ASS MATERIAL URNLS DIP 13887 [facility] SUE 7 [facility] STICK/TAB INC INC LET REAGENT AUTO MICROSCOP Y CT THORAX 06052 LEONEL DELAROSA 7 MEDICAL W/CONTRAS IMAGING T ASS MATERIAL BLOOD 62406 LINETTE LINETTE COUNT 7 [facility] COMPLETE INC INC AUTO&AUTO DIFRNTL WBC RADIOLOGI 59646 LEONEL ZULLY C EXAM 7 MEDICAL CHEST 2 IMAGING VIEWS ASS FRONTAL&[place] [address] [facility]UE ANGIOGRAP 7 [facility] HY INC INC ABDOMEN W/CONTRAS T/NONCONT RAST ECG 03620 LINETTE VERMAON ROUTINE 7 [facility] W/LEAST P P 12 LDS I&R ONLY BLOOD 50082 LINETTE SUE COUNT 6 [facility] COMPLETE INC INC AUTO&AUTO DIFRNTL WBC COMPREHEN 22262 LIN[facility]TE SUE SIVE 6 [facility] [place] [address] LIN[facility] SUE THYROID 6 [facility] STIMULATI INC INC NG HORMONE TSH HEMOGLOBI 28566 LINETTE SUE N 6 [facility] GLYCOS[place] [address] LINETTE SUE THYROXINE 6 [facility] TOTAL INC INC HEPATITIS 39228 LINETTE SUE C 6 [facility] [place] [address] LINETTE [place]UE AMYLASE 6 [place] [address] LINETTE SUE LIPASE 6 [facility] INC INC COLLECTIO 51589 LINETTE SUE N VENOUS 6 [facility] BLOOD INC INC VENIPUNCT URE HEPATITIS 91309 LINETTE SUE A 6 [facility] ANTIBODY INC INC HAAB DRUG TST G0477 LINETTE SUE PRESUMP;C 6 [facility] PBL BEING INC INC READ DC OPT OBV ONLY HEPATITIS 55869 LINETTE SUE B CORE 6 [facility] ANTIBODY INC INC HBCAB TOTAL HEPATITIS 94573 LINETTE Agarwal SURF 6 [facility] [place] [address] LIN[facility] SUE HEPATITIS 6 [facility] B INC INC SURFACE ANTIGEN DRUG TST G0477 LINETTE SUE PRESUMP;C 6 [facility] PBL BEING INC INC READ DC OPT OBV ONLY DRUG TEST G0479 LAVINIA TOWNSEND 6 KRISTIAN, PRESUMP;I ,PSC NSTRUMENT ED CHEMISTRY ANLYZER CREATINE 62542 LINETTE SUE KINASE MB 6 [facility] [place] [address] LINETTE SUE AMYLASE 6 [facility] INC INC CREATINE 24605 LINETTE SUE KINASE 6 [facility] TOTAL INC INC COLLECTIO 42276 LINETTE SUE N VENOUS 6 [facility] [place] [address] [facility] SUE LIPASE 6 [facility] INC INC FIBRIN 19787 LINETTE SUE DGRADJ 6 [facility] PRODUCTS INC INC D-DIMER QUAL/[place] [address] LINETTE SUE TROPONIN 6 [facility] QUANTITAT INC INC RUPA NATRIURET 64275 LINETTE SUE IC 6 [facility] PEPTIDE INC INC COMPREHEN 49211 LIN[facility]TE SUE SIVE 6 [facility] METABOLIC INC INC PANEL BLOOD 19253 LINETTE SUE COUNT 6 [facility] COMPLETE INC INC AUTO&AUTO DIFRNTL WBC CT THORAX 17173 LEONEL ZULLY 6 MEDICAL BUBBA W/CONTRAS IMAGING T ASS MATERIAL RADIOLOGI 27882 [facility]TE SUE C 6 [facility] EXAMINATI INC INC ON CHEST [place] FRONTAL ECG 61310 [facility] SUE ROUTINE 6 [facility] ECG INC INC W/LEAST 12 LDS TRCG ONLY W/O I&[place] [address] LINETTEKING SUE ANGIOGRAP 6 [facility] HY CHEST INC INC W/CONTRAS T/NONCONT RAST ECG 56123 LINETTE MCCLAIN ROUTINE 6 [facility] W/LEAST P 12 LDS I&R ONLY DRUG TST G0477 LINETTE SUE PRESUMP;C 6 [facility] PBL BEING [place] [address] [facility] SUE CERVICAL 6 [facility] SPINE W/[place] [address] LINETTE SUE HEAD/BRAI 6 [facility] N W/O INC INC CONTRAST MATERIAL RADEX 52906 [facility]TE SUE SHOULDER 6 [facility] COMPLETE INC INC MINIMUM 2 VIEWS THERAPEUT 59841 [facility] SUE IC 6 [facility] PROPHYLAC INC INC TIC/DX INJECTION SUBQ/IM ANES 01555 [facility] LOWER 6 ANESTH INTESTINE OF THE BLUE [place] [address] [facility], SETTEMBRE SURG 6 [facility] PATHOLOGY GROSS&CHARLEY ROSCOPIC EXAM COLSC FLX 54293 LIN[facility]TE SUE W/RMVL 6 [facility] OF TUMOR INC INC POLYP LESION SNARE TQ GLUC BLD 24903 LINETTE SUE GLUC MNTR 6 [facility] DEV INC INC CLEARED FDA SPEC HOME USE DRUG TST G0477 LIN[facility]TE SUE PRESUMP;C 6 [facility] PBL BEING INC INC READ DC OPT OBV ONLY COL-CHR/M 77005 LINETTE Sanches NONDRUG 6 [facility] ANALYTE INC INC CARLINE QUAL/TODD EA SPEC DRUG 08323 [facility]TE SUE SCREEN 6 [facility] LIST A INC INC SINGLE DRUG CLASS METHOD DRUG 60691 [facility] SCREENING 6 [facility] INC INC BENZODIAZ EPINES 1-12 LIPID 95116 [facility] PANEL 6 [facility] INC INC PROSTATE G0103 [facility] CANCER 6 [facility] SCREENING INC INC ; PSA TEST BLOOD 93666 [facility] COUNT 6 [facility] COMPLETE INC INC AUTO&AUTO DIFRNTL WBC HEMOGLOBI 80036 [facility] N 6 [facility] GLYCOSY[place] [address] [facility] S[facility] THYROID 6 [facility] STIMULATI INC INC NG HORMONE TSH COMPREHEN 83619 [facility] S[facility] SIVE 6 [facility] METABOLIC INC INC PANEL COLLECTIO 67328 [facility] S[facility] N VENOUS 6 [facility] [place] [address] [facility] THYROXINE 6 [facility] TOTAL INC INC INJECTION J1885 [facility] CHAGO 6 PHYSICIAN CHARLEY KETOROLAC S GROUP TROMETHAM INE PER 15 MG THERAPEUT 70281 [facility] CH[facility]O IC 6 PHYSICIAN CHARLEY PROPHYLAC S GROUP TIC/DX INJECTION SUBQ/IM INJECTION J1100 [facility] CHAGO 6 PHYSICIAN CHARLEY DEXAMETHO S GROUP SONE SODIUM PHOSPHATE 1 MG INJECTION J1100 [facility] CHAGO 6 PHYSICIAN CHARLEY DEXAMETHO S GROUP SONE SODIUM PHOSPHATE 1 MG THERAPEUT 83883 [facility] CH[facility] IC 6 PHYSICIAN CHARLEY PROPHYLAC S GROUP TIC/DX INJECTION SUBQ/IM THERAPEUT 96585 [facility] FRYMAN IC 6 PHYSICIAN EUG PROPHYLAC S GROUP TIC/DX INJECTION SUBQ/IM INJECTION J0696 [facility] FRYMAN 6 PHYSICIAN EUG CEFTRIAXO S GROUP NE SODIUM PER 250 MG INJECTION 49638 BOYD LE LB 6 MD JERMAINE, SINGLE/ML PSC T TRIGGER POINT 1/2 MUSCLES DRUG TEST G0481 [facility] DEFINITV [address] [facility] ID INC INC METH P DAY 8-14 DRUG CL DRUG TST G0477 [facility] PRESUMP;C 6 [facility] PBL BEING INC INC READ DC OPT OBV ONLY MRI BRAIN 00283 [facility] BRAIN 6 [facility] STEM W/O INC INC W/CONTRAS T MATERIAL INJECTION A9576 [facility] GADOTERID INC INC OL PROHANCE MULTIPACK PER ML COLLECTIO 87865 [facility] N VENOUS 6 [facility] BLOOD INC INC VENIPUNCT URE CREATININ 32824 [facility] [place] E BLOOD 6 [place] [address] [facility] UREA 6 [facility] NITROGEN INC INC QUANTITAT RUPA MRI BRAIN 68777 [facility] BRAIN 6 [facility] STEM W/O INC INC CONTRAST MATERIAL DUPLEX 36237 [facility] SCAN 6 [facility] EXTRACRAN INC INC IAL ART COMPL BI [facility] G0463 [facility] OUTPATIEN 6 [facility] T CLIN INC INC VISIT ASSESS & MGMT PT BASIC 56741 [facility] S[facility] METABOLIC 6 [facility] [place] [address] [facility] BECKETT CO HEAD/BRAI 6 [facility] HEALTH N W/O INC DEPARTMEN CONTRAST T MATERIAL BLOOD 02728 [facility] COUNT 6 [facility] COMPLETE INC INC AUTO&AUTO DIFRNTL WBC INJECTION J2405 [facility] ONDANSETR INC INC ON HCL PER 1 MG THER 54096 [facility] S[facility] [facility]DX [facility] NJX IV INC INC PUSH SINGLE/1S T SBST/DRUG THERAPEUT 41752 [facility]UE IC 6 [facility] INJECTION INC INC IV PUSH EACH NEW DRUG INJECTION J1030 [facility] SUE 6 [facility] METHYLPRE INC INC DNISOLONE ACETATE 40 MG FLUOR 85568 BOYD LE LB NEEDLE/CA 6 MD JERMAINE, TH PSC SPINE/PAR ASPINAL DX/THER ADDON LOCM Q9966 LINETTE SUE 200-299 6 [facility] MG/ML INC INC IODINE CONCENTRA TION PER ML NJX 59853 BOYD LE LB DX/THER 6 MD JERMAINE, SBST PSC EPIDURAL/ SUBRACH CERV/THOR ACIC HEPATOBIL 65709 [facility] SUE SYST 6 [facility] IMAG INC INC INC GB W/PHARMA INTERVENJ INJECTION J2805 [facility] SUE 6 [facility] SINCALIDE INC INC 5 MICROGRAM S TECHNETIU A9537 LINETTE SUE M TC-99M 6 [facility] MEBROFENI INC INC N DX UP [place] [address] [place] [address] [place] [facility] ALL ABDOMINAL 5 MEDICAL REAL IMAGING TIME ASS W/IMAGE LIMITED GLUC BLD 01672 LINETTE SUE GLUC MNTR 5 [facility] DEV INC INC CLEARED FDA SPEC HOME USE CUL BACT 23798 [facility]UE XCPT 5 [facility] URINE INC INC BLOOD/[place] [address] LIN[facility] SUE STREPTOCO 5 [facility] [place] [address] [place] ZULLY RETROPERI 5 MEDICAL BUBBA TONEAL IMAGING REAL [place] W/[place] [address] LINET[facility] SUE RETROPERI 5 [facility] TONEAL INC INC REAL TIME W/IMAGE COMPLETE E-STIM G0283 LINETTE SUE 1/> AREAS 5 [facility] OTH THAN INC INC WND CARE PART TX PLAN APPLICATI 24838 [facility] SUE ON 5 [facility] MODALITY INC INC 1/> AREAS HOT/COLD PACKS APPL 74007 LINETTE SUE MODALITY 5 [facility] 1/> AREAS INC INC ULTRASOUN D EA 15 MIN APPL 19286 LINETTE SUE MODALITY 5 [facility] 1/> AREAS INC INC 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 L PHYSICAL 34201 [facility] SUE THERAPY 5 [facility] EVALUATIO INC INC N OPHTH 51205 [facility] 5 XM&EVAL COMPRHNSV ESTAB PT 1/> INJECTION J1030 [facility] SUE 5 [facility] METHYLPRE INC INC DNISOLONE ACETATE 40 MG INJECTION 71058 BOYD DEAN MD, SINGLE/ML PSC T TRIGGER POINT 1/2 MUSCLES INJECTION 46607 [facility] SUE 5 [facility] SINGLE/ML INC INC T TRIGGER POINT 3/> MUSCLES PSYCHIATR 98581 COMPREHEN MINEER IC 5 D INC EDELMIRA DIAGNOSTI C EVALUATIO N INJECTION 70503 [facility]TE SUE 5 [facility] SINGLE/ML INC INC T TRIGGER POINT 3/> MUSCLES INJECTION 70292 [facility] COON 5 SINGLE/ML T TRIGGER POINT 1/2 MUSCLES INJECTION J1030 [facility]ETTE SUE 5 [facility] METHYLPRE INC INC DNISOL[place] [address] [place] [address] [facility] HEAD/BRAI 5 MEDICAL DAREN N W/[place] [address] [facility] CERVICAL 5 MEDICAL DAREN SPINE W/O IMAGING CONTRAST ASS MATERIAL RADEX 65779 [facility] SPINE 5 MEDICAL DAREN THORACIC IMAGING 2 VIEWS ASS ROGELIO 13593 LINETTE CALI POST-VOID 5 [facility] RESIDUAL P URINE&/BL [facility] G0463 LINETTEKING SUE OUTPATIEN 5 [facility] T CLIN INC INC VISIT ASSESS & MGMT PT ECG 16969 LINETTE SUE ROUTINE 5 [facility] ECG INC INC W/LEAST 12 LDS TRCG ONLY W/O I&R ECG 40534 CARDIOVAS CHAYO ROUTINE 5 CULAR MAT ECG CONSULTAN W/LEAST TS O 12 LDS I&R ONLY ECHO 27356 LINETTE SUE TTHRC R-T 5 [facility] 2D INC INC W/WOM-MOD E COMPL SPEC&COLR D CV STRS 64359 [facility] TST 5 PHYSICIAN VENITA XERS&/OR S GROUP RX CONT ECG W/O I&R CV STRS 86470 LINETTE SUE TST 5 [facility] XERS&/OR INC INC RX CONT ECG TRCG ONLY TECHNETIU A9500 LINETTE Barrientos TC-99M 5 [facility] SESTAMIBI INC INC DX PER STUDY DOSE MYOCARDIA 88150 LINETTE SUE L SPECT 5 [facility] MULTIPLE INC INC STUDIES ECG 07354 LINETTE SUE ROUTINE 5 [facility] ECG INC INC W/LEAST 12 LDS TRCG ONLY W/O I&R ECG 35723 CARDIOVAS CHAYO ROUTINE 5 CULAR MAT ECG CONSULTAN W/LEAST TS O 12 LDS I&R ONLY LIPID 08373 LINETTE SUE PANEL 5 [place] [address] LINETTE SUE THYROXINE 5 [facility] [place] [address] LINETTE SUE THYROID 5 [facility] STIMULATI INC INC NG HORMONE TSH BASIC 99385 LINETTE SUE METABOLIC 5 [facility] PANEL INC INC CALCIUM TOTAL COMPREHEN 95813 LINETTE SUE SIVE 5 [facility] [address] LINETTE USE TROPONIN 5 [facility] QUANTITAT INC INC RUPA CREATINE 07828 LINETTE SUE KINASE MB 5 [facility] FRACTION INC INC ONLY CREATINE 29260 LINETTE SUE KINASE 5 [facility] TOTAL INC INC GROUND A0425 [facility]BULANCE AMBULANCE PER SERVICE SERVICE STATUTE MILE BLOOD 49930 LINETTE SUE COUNT 5 [facility] COMPLETE INC INC AUTO&AUTO DIFRNTL WBC RADIOLOGI 41718 [facility] LICE[facility] C 5 MEDICAL DAREN EXAMINATI IMAGING [place] [address] LEONEL LICEA HEAD/BRAI 5 MEDICAL DAREN N W/O IMAGING CONTRAST ASS MATERIAL ECG 51682 LINETTE SUE ROUTINE 5 [facility] ECG INC INC W/LEAST 12 LDS TRCG ONLY W/O I&R CRITICAL 53499 LINETTE SUE CARE 5 [facility] ED P P PATIENT INIT 30-[address] [facility] SERVICE 5 AMBULANCE AMBULANCE ALS SERVICE SERVICE EMERGENCY TRANSPORT LEVEL 1 ECG 63156 LINETTE SUE ROUTINE 5 [facility] W/LEAST P P 12 LDS I&[place] [address] [facility] ZULLY ANGIOGRAP 4 MEDICAL BUBBA HY IMAGING ABDOMEN ASS W/CONTRAS T/NONCONT RAST LOCM Q9967 LINETTE LINETTE 300-399 4 [facility] MG/ML INC [place] [address] LINETTE SUE HEAD/BRAI 4 [facility] N W/O INC INC CONTRAST MATERIAL COLLECTIO 14397 LINETTE SUE N VENOUS 4 [facility] BLOOD INC INC VENIPUNCT URE CREATININ 73480 LINETTE SUE E BLOOD 4 [place] [address] LINETTE SUE UREA 4 [facility] NITROGEN INC INC QUANTITAT RUPA THERAPEUT 64348 [facility] CHAGO IC 4 PHYSICIAN CHARLEY PROPHYLAC S GROUP TIC/DX INJECTION SUBQ/IM INJECTION J0696 [facility] CHAGO 4 PHYSICIAN CHARLEY CEFTRIAXO S GROUP NE SODIUM PER 250 MG INJECTION J1040 [facility] 4 PHYSICIAN PHYSICIAN METHYLPRE S GROUP S GROUP DNISOLONE ACETATE 80 MG RADIOLOGI 42830 [facility] ZULLY C 4 MEDICAL BUBBA EXAMINATI IMAGING ON CHEST ASS SINGLE VIEW FRONTAL FOR DIAB A5512 [facility] ONLY MX 4 DNSITY INSRT DIR FORMD PRFAB EA DIAB ONLY A5500 [facility] FIT CSTM 4 PREP&SPL SHOE MX DNSITY INSRT THERAPEUT 80766 LINETTE SUE IC 4 [facility] PROPHYLAC INC INC TIC/DX INJECTION SUBQ/IM CT LUMBAR 20145 ZULLY ANDREA SPINE 4 BUBBA BUBBA W/O CONTRAST MATERIAL THER 70156 LINETTE SUE PROPH/DX 4 [facility] NJX IV INC INC PUSH SINGLE/1S T SBST/[place] [address] ZULLY ZULLY ABDOMEN & 4 BUBBA BUBBA PELVIS W/O CONTRST 1/> BODY RE BLOOD 82440 LINETTE VERMAON COUNT 4 [facility] COMPLETE INC INC AUTO&AUTO DIFRNTL WBC ECG 88169 LINETTE SUE ROUTINE 4 [facility] ECG INC INC W/LEAST 12 LDS TRCG ONLY W/O I&[place] [address] LINETTE LINETTE ABDOMEN & 4 [facility] PELVIS INC INC W/O CONTRAST MATERIAL FIBRIN 50939 LINETTE SUE DGRADJ 4 [facility] PRODUCTS INC INC D-DIMER QUAL/[place] [address] LINETTE SUE TROPONIN 4 [facility] QUANTITAT INC INC RUPA PROTHROMB 82403 LINETTE SUE IN TIME 4 [facility] INC INC COMPREHEN 55572 LINETTE SUE SIVE 4 [facility] METABOLIC INC INC PANEL CREATINE 32387 LINETTE SUE KINASE 4 [facility] TOTAL INC INC CREATINE 11509 LINETTE SUE KINASE MB 4 [facility] FRACTION INC INC ONLY THROMBOPL 99071 LINETTE SUE ASTIN 4 [facility] TIME INC INC PARTIAL PLASMA/WH OLE BLOOD THER 68118 LINETTE SUE PROPH/DX 4 [facility] NJX IV INC INC PUSH SINGLE/1S T SBST/DRUG RADIOLOGI 83315 LINETTE SUE C EXAM 4 [facility] CHEST 2 INC INC VIEWS FRONTAL&L ATERAL ECG 75598 CH[facility] WARE ROUTINE 4 BRO BRO ECG W/LEAST 12 LDS I&R ONLY DRUG SCR G0434 VITA HAM VITA HAM NOT 4 CHROMATOG RAPHIC; ANY NUMBER PT ENC COMPREHEN 65226 LINETTE SUE SIVE 3 [facility] [place] [address] LINETTE SUE THYROID 3 [facility] STIMULATI INC INC NG HORMONE TSH BLOOD 15325 LINETTE SUE COUNT 3 [facility] COMPLETE INC INC AUTO&AUTO DIFRNTL WBC ADMINISTR G0008 NATHALY ANDERSEN ATION OF 3 JR AREN YOUNGER INFLUENZA VIRUS VACCINE IM ADM 78756 RUTKEMIE RUTKEMIE PRQ ID 3 JR RAEN YOUNGER SUBQ/IM NJXS 1 VACCINE IM ADM 37389 RUTKEMIE RUTKEMIE PRQ ID 3 JR AREN YOUNGER SUBQ/IM NJXS EA VACCINE IIV3 95451 RUTKEMIE MCKEMIE VACCINE 3 JR AREN YOUNGER SPLIT VIRUS 0.5 ML DOSAGE IM USE INJECTION J3301 NATHALY CRMIE 3 JR AREN YOUNGER TRIAMCINO LONE ACETONIDE NOS 10 MG THERAPEUT 85022 LINETTE SUE IC 3 [facility] PROPHYLAC INC INC TIC/DX INJECTION SUBQ/IM LIPID 17849 LINETTE SUE PANEL 3 [facility] [place] [address] LINETTE SUE THYROID 3 [facility] STIMULATI INC INC NG HORMONE TSH COMPREHEN 08610 LINETTE SUE SIVE 3 [facility] [address] LINETTE SUE UREA 3 [facility] NITROGEN INC INC QUANTITAT RUPA CREATININ 72098 LINETTE SUE E BLOOD 3 [facility] INC INC INJECTION A9576 LINETTE SUE 3 [facility] GADOTERID INC INC OL PROHANCE MULTIPACK PER ML MRI BRAIN 31310 LINETTE SUE BRAIN 3 [facility] STEM W/O INC INC W/CONTRAS T MATERIAL 3D 20487 LINETTE SUE RENDERING 3 [facility] W/INTERP INC INC & POSTPROCE SS SUPERVISI ON MRI 80540 LINETTE SUE SPINAL 3 [facility] CANAL INC INC CERVICAL W/O CONTRAST MATRL APPL 72776 LINETTE SUE MODALITY 3 [facility] 1/> AREAS INC INC ELEC STIMJ UNATTENDE D APPL 24034 LINETTE VERMAON MODALITY 3 [facility] 1/> AREAS INC INC 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 L APPLICATI 24471 LINETTE VERMAON ON 3 [facility] MODALITY INC INC 1/> AREAS HOT/COLD PACKS APPLICATI 02250 LINETTE SUE ON 3 [facility] MODALITY INC INC 1/> AREAS HOT/COLD PACKS APPL 58272 LINETTE SUE MODALITY 3 [facility] 1/> AREAS INC INC ULTRASOUN D EA 15 MIN APPL 41874 LINETTE SUE MODALITY 3 [facility] 1/> AREAS INC INC 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 L APPL 90187 LINETTE SUE MODALITY 3 [facility] 1/> AREAS INC INC ELEC STIMJ UNATTENDE D PHYSICAL 50623 LINETTEKING VERMAON THERAPY 3 [facility] EVALUATIO INC INC N INJECTION J3301 LINETTE LINETTE 3 [facility] TRIAMCINO INC INC LONE ACETONIDE NOS 10 MG THERAPEUT 29447 LINETTE SUE IC 3 [facility] PROPHYLAC INC INC TIC/DX INJECTION SUBQ/IM CUL BACT 06410 LINETTE SUE STOOL 3 [facility] AEROBIC INC INC ISOL SALMONELL A&SHIGELL OVA&DERRICK 16705 LINETTE SUE ITES 3 [facility] DIRECT INC INC SMEARS CONCENTRA TION & ID SMR PRIM 17909 LINETTE SUE SRC 3 [facility] GRAM/GIEM INC INC SA STAIN BCT FUNGI/[place] [address] LINETTE SUE CLOSTRIDI 3 [facility] UM INC INC DIFFICILE TOXIN BLOOD 49267 LINETTE SUE OCCULT 3 [facility] PEROXIDAS INC INC E ACTV QUAL FECES 1-3 [place] [address] LINETTE SUE TROPONIN 3 [facility] QUANTITAT INC INC RUPA CREATINE 82549 LINETTE SUE KINASE MB 3 [facility] FRACTION INC INC ONLY CREATINE 80819 LINETTE SUE KINASE 3 [facility] TOTAL INC INC ECG 39047 LINETTE SUE ROUTINE 3 [facility] ECG INC INC W/LEAST 12 LDS TRCG ONLY W/O I&R ECG 01739 JOHNY MCCLAIN ROUTINE 3 [facility] CAMILLA ECG W/LEAST 12 LDS I&R ONLY RADEX 56180 ZULLY ZULLY SHOULDER 3 BUBBA BUBBA COMPLETE MINIMUM 2 VIEWS RADIOLOGI 74517 ZULLY ZULLY C EXAM 3 BUBBA BUBBA CHEST 2 VIEWS FRONTAL&L ATERAL URNLS DIP 34951 MCKEMIE MCKEMIE 3 JR AREN JR AREN STICK/TAB LET RGNT NON-AUTO W/[place] [address] ZULLY ZULLY ABDOMEN & 3 BUBBA BUBBA PELVIS W/O CONTRAST MATERIAL ECG 93623 LINETTE SUE ROUTINE 3 [facility] ECG INC INC W/LEAST 12 LDS TRCG ONLY W/O I&R 3D 13161 LINETTE SUE RENDERING 3 [facility] INC INC W/INTERP& POSTPROC DIFF WORK STATION BLOOD 63430 LINETTE SUE COUNT 3 [facility] COMPLETE INC INC AUTO&AUTO DIFRNTL WBC URNLS DIP 05251 LINETTE SUE 3 [facility] STICK/TAB INC INC [place] [address] LINETTE SUE LIPASE 3 [facility] INC INC CREATINE 84963 LINETTE SUE KINASE 3 [facility] TOTAL INC INC CREATINE 12115 LINETTE SUE KINASE MB 3 [facility] [place] [address] LINETTE SUE AMYLASE 3 [place] [address] LINETTE SUE TROPONIN 3 [facility] QUANTITAT INC INC RUPA COMPREHEN 44325 LINETTE SUE SIVE 3 [facility] METABOLIC INC INC PANEL ECG 66355 CHAGO ANDERS ROUTINE 3 CHARLEY CHARLEY ECG W/LEAST 12 LDS I&R ONLY INJECTION J2405 LINETTE SUE 3 [facility] ONDANSETR INC INC ON HCL PER 1 [place] [address] LINETTE SUE INFUSION 3 [facility] THERAPY/P INC INC ROPHYLAXI S /DX 1ST TO 1 HR THERAPEUT 00647 LINETTE SUE IC 3 [facility] INJECTION INC INC IV PUSH EACH NEW DRUG COMPREHEN 66496 LINETTE SUE SIVE 3 [facility] METABOLIC INC INC PANEL LIPID 65768 LINETTE SUE PANEL 3 [facility] INC INC PROSTATE G0103 LINETTE SUE CANCER 3 [facility] SCREENING INC INC ; PSA TEST BLOOD 77097 LINETTE SUE COUNT 3 [facility] COMPLETE INC INC AUTO&AUTO DIFRNTL WBC ECG 79597 LINETTE ANDERSEN ROUTINE 3 [facility] W/LEAST P 12 LDS I&R ONLY ECG 53455 CHAGO ANDERS ROUTINE 3 CHARLEY CHARLEY ECG W/LEAST 12 LDS I&R ONLY BLOOD 79583 LINETTE SUE COUNT 3 [facility] COMPLETE INC INC AUTO&AUTO DIFRNTL WBC 3D 04023 LINETTE SUE RENDERING 3 [facility] INC INC W/INTERP& POSTPROC DIFF WORK STATION RADIOLOGI 55774 LINETTE SUE C 3 [facility] EXAMINATI INC INC ON CHEST SINGLE VIEW FRONTAL URNLS DIP 32697 LINETTE SUE 3 [facility] STICK/TAB INC INC LET REAGENT AUTO MICROSCOP Y ECG 56076 LINETTE SUE ROUTINE 3 [facility] ECG INC INC W/LEAST 12 LDS TRCG ONLY W/O I&[place] [address] LINETTE SUE ABDOMEN & 3 [facility] PELVIS INC INC W/O CONTRAST MATERIAL COMPREHEN 05059 LINETTE SUE SIVE 3 [facility] [place] [address] LINETTE SUE TROPONIN 3 [facility] QUANTITAT INC INC RUPA BLOOD 62522 LINETTE SUE OCCULT 3 [facility] PEROXIDAS INC INC E ACTV QUAL FECES 1-3 [place] [address] LINETTE SUE AMYLASE 3 [facility] INC INC CREATINE 01149 LINETTE SUE KINASE MB 3 [facility] FRACTION INC INC ONLY CREATINE 09995 LINETTE SUE KINASE 3 [facility] TOTAL INC INC IAADI 63361 LINETTE SUE INFLUENZA 3 [facility] B VIRUS INC INC IAADI 48359 LINETTE SUE INFFLUENZ 3 [facility] [place] [address] LINETTE SUE LIPASE 3 [facility] INC INC CYSTO 85785 LINETTE SUE BLADDER 2 [facility] W/URETERA INC INC L CATHETERI ZATION CYSTOURET 76155 CALI LEIVA HROSCOPY 2 ART ART URETHROCY 34432 LINETTE SUE STOGRAPHY 2 [facility] INC INC RETROGRAD E RS&I UROGRAPHY 74459 LEONEL ANDREA IV W/WO 2 MEDICAL BUBBA KUB W/WO IMAGING TOMOGRAPH ASS Y ANES 97899 [facility] TRANSURET 2 ANESTH LOLY HRAL OF THE W/URETH[place] [address] LINETTE SUE UREA 2 [facility] NITROGEN INC INC QUANTITAT RUPA CREATININ 05945 LINETTE SUE E BLOOD 2 [facility] INC INC URNLS DIP 33711 CALI LEIVA 2 ART ART STICK/TAB LET RGNT NON-AUTO W/O MICRSCP LOCM Q9967 LINETTE SUE 300-399 2 [facility] MG/ML INC [place] [address] LINETTE SUE ABDOMEN & 2 [facility] PELVIS INC INC W/O CONTRST 1/> BODY RE PROSTATE G0103 LINETTE SUE CANCER 2 [facility] SCREENING INC INC ; [place] [address] LINETTE SUE TESTOSTER 2 [facility] ONE TOTAL INC INC BASIC 00250 LINETTE SUE METABOLIC 2 [facility] PANEL INC INC CALCIUM TOTAL URNLS DIP 25999 LEIVA LEIVA 2 ART ART STICK/TAB LET RGNT NON-AUTO W/[place] [address] ZULLY ZULLY RETROPERI 2 BUBBA BUBBA TONEAL REAL TIME W/IMAGE COMPLETE URNLS DIP 36329 JAMA YUN 2 NAN NAN STICK/TAB LET RGNT NON-AUTO W/O MICRSCP LIPID 53622 LINETTE SEU PANEL 2 [facility] INC INC COMPREHEN 06002 LINETTE SUE SIVE 2 [facility] METABOLIC INC INC PANEL HEMOGLOBI 84628 LINETTE SUE N 2 [facility] GLYCOSYLA INC INC SONG A1C URNLS DIP 71269 JAMA YUN 2 NAN NAN STICK/TAB LET RGNT NON-AUTO W/O MICRSCP OPHTHALMO 24712 NICK ORMERO SCPY 2 JAM JAM EXTENDED RETINAL DRAWING I&R 1ST DETERMINA 29399 NICK ROMERO TION 2 JAM JAM REFRACTIV E STATE MYOCARDIA 26267 LAUREN FALLUJI L SPECT 2 VENITA VENITA MULTIPLE STUDIES MYOCARDIA 61042 LINETTE SUE L SPECT 2 [facility] MULTIPLE INC INC STUDIES CV STRS 12075 LINETTE SUE TST 2 [facility]&/OR [facility] RX CONT P P ECG I&R ONLY CV STRS 48466 SELMA HAHN [facility] TST 2 XERS&/OR RX CONT ECG W/O I&R CV STRS 64640 LINETTE SUE TST 2 [facility] XERS&/OR INC INC RX CONT ECG TRCG ONLY TECHNETIU A9502 LINETTE Barrientos TC-99M 2 [facility] TETROFOSM INC INC IN DX PER STUDY DOSE OBSERVATI 75885 JOHNY MCCLAIN ON CARE 2 CAMILL[place] [address] LINETTE SUE TROPONIN 2 [facility] QUANTITAT INC INC RUPA CREATINE 68583 LINETTE SUE KINASE 2 [facility] TOTAL INC INC HOSPITAL G0378 LINETTE LINETTE OBSERVATI 2 [facility] ON INC INC SERVICE PER HOUR CREATINE 88291 LINETTE LINETTE KINASE MB 2 [facility] FRACTION INC INC ONLY CREATINE 54469 LINETTE LINETTE KINASE MB 2 [facility] FRACTION INC INC ONLY HOSPITAL G0378 LINETTE LINETTE OBSERVATI 2 [facility] ON INC INC SERVICE PER HOUR CREATINE 50782 LINETTE SUE KINASE 2 [facility] [place] [address] LINETTE LINETTE LIPASE 2 [place] [address] LINETTE SUE TROPONIN 2 [facility] QUANTITAT INC INC RUPA BASIC 56627 LINETTE SUE METABOLIC 2 [facility] PANEL INC INC CALCIUM TOTAL COMPREHEN 38785 LINETTE LINETTE SIVE 2 [facility] METABOLIC INC INC PANEL 3D 30129 LINETTE SUE RENDERING 2 [facility] W/INTERP INC INC & [place] [address] LEONEL ANDREA HEAD/BRAI 2 MEDICAL BUBBA N W/O IMAGING CONTRAST ASS MATERIAL ECG 68430 LINETTE SUE ROUTINE 2 [facility] ECG INC INC W/LEAST 12 LDS TRCG ONLY W/O I&R INITIAL 16247 NATHALY ANDERSEN OBSERVATI 2 JR AREN JR AREN ON CARE/DAY 30 MINUTES RADIOLOGI 77459 LINETTE SUE C 2 [facility] EXAMINATI INC INC ON CHEST SINGLE VIEW FRONTAL BLOOD 69927 LINETTE SUE COUNT 2 [facility] COMPLETE INC INC AUTO&AUTO DIFRNTL WBC CT ORBIT 55229 LEONEL MILLERUTCHER SELLA/POS 2 MEDICAL BUBBA T IMAGING FOSSA/EAR ASS W/O CONTRAST MATRL ECG 67137 BETH CAMPOS ROUTINE 2 III AREN III AREN ECG W/LEAST 12 LDS I&R ONLY PRESSURIZ 54812 LINETTE SUE ED/NONPRE 2 [facility] SSURIZED INC INC INHALATIO N TREATMENT RHYTHM 31346 LINETTE SUE ECG 1-3 2 [facility] LEADS INC INC TRACING ONLY W/O I&R [facility] 60338 EDGE DONNIE EDGE DONNEI MICROGRAP 2 HIC H/N/H/F/G 1ST STAGE 5 BLOCKS [facility]ES 07385 [facility] ANESTHESI [facility] L NRV HEAD NECK&POST ERIOR TRUNK ADJT TIS 75392 ODALYS MORROW LB TRNSFR/RE 2 ARRGMT E/N/E/L DFCT 10 SQ CM/< SUTR WND 67296 ODALYS LB ODALYS LB EYELID/MA 2 RGIN/TARS US/CONJUN C FULL THICK BLOOD 53912 [facility] COUNT 2 [facility] COMPLETE INC INC AUTO&AUTO DIFRNTL WBC LIPID 87804 [facility] PANEL 2 [facility] INC INC COMPREHEN 83964 [facility] SIVE 2 [facility] METABOLIC INC INC PANEL HEMOGLOBI 19619 [facility] SUE N 2 [facility] GLYCOSYLA INC INC SONG A1C CREATINE 67225 LINETTE SUE KINASE MB 2 [facility] [place] [address] [facility] S[facility] TROPONIN 2 [facility] QUANTITAT INC INC RUPA BASIC 72422 [facility] METABOLIC 2 [facility] PANEL INC INC CALCIUM TOTAL CREATINE 69587 [facility] KINASE 2 [facility] TOTAL INC INC URNLS DIP 81136 [facility] SUE 2 [facility] STICK/TAB INC INC LET REAGENT AUTO MICROSCOP Y BLOOD 84716 [facility] COUNT 2 [facility] COMPLETE INC INC AUTO&AUTO DIFRNTL WBC 3D 91134 [facility] RENDERING 2 [facility] W/INTERP INC INC & [place] [address] [facility] S[facility] HEAD/BRAI 2 [facility] N W/O INC INC CONTRAST MATERIAL ECG 48163 [facility] ROUTINE 2 [facility] ECG INC INC W/LEAST 12 LDS TRCG ONLY W/O I&R RHYTHM 64724 [facility] SUE ECG 1-3 2 [facility] LEADS INC INC TRACING ONLY W/O I&R ECG 45004 [place] ROUTINE 2 III AREN III AREN ECG W/LEAST 12 LDS I&[place] [address] ZULLY ZULLY MAXILLOFA 2 BUBBA BUBBA CIAL W/O CONTRAST MATERIAL RADIOLOGI 30636 ZULLY ZULLY C EXAM 2 BUBBA BUBBA CHEST 2 VIEWS FRONTAL&L ATERAL ECG 10912 [place] MICHELLE [place] MICHELLE ROUTINE 1 ECG W/LEAST 12 LDS I&R ONLY RHYTHM 04721 [facility] SUE ECG 1-3 1 [facility] LEADS INC INC TRACING ONLY W/O I&R PRESSURIZ 81469 [facility] SUE ED/NONPRE 1 [facility] SSURIZED INC INC INHALATIO N TREATMENT ECG 82271 [facility] SUE ROUTINE 1 [facility] ECG INC INC W/LEAST 12 LDS TRCG ONLY W/O I&R BLOOD 87232 LINETTE LINETTE COUNT 1 [facility] COMPLETE INC INC AUTO&AUTO DIFRNTL WBC RADIOLOGI 64635 [place] C 1 MEDICAL BUBBA EXAMINATI IMAGING ON CHEST ASS SINGLE VIEW FRONTAL CREATINE 16714 LIN[facility] SUE KINASE 1 [facility] [place] [address] LIN[facility] SUE TROPONIN 1 [facility] QUANTITAT INC INC RUPA COMPREHEN 53769 [facility] SUE SIVE 1 [facility] METABOLIC INC INC PANEL CREATINE 13535 [facility] SUE KINASE MB 1 [facility] FRACTION INC INC ONLY EXC 82018 ODALYS ANDREWSEN LB LESION 1 EYELID W/O CLSR/W/SI MPLE DIR CLOSURE INCISIONA 59612 ODALYS ANDREWSEN LB L BIOPSY 1 EYELID SKIN & LID MARGIN THERAPEUT 74250 [place] IC 1 [facility] INTERNAL INTERNAL TIC/DX MED MED INJECTION SUBQ/IM XTRNL 12411 ODALYS LB ODALYS LB OCULAR 1 PHOTOG W/I&R [facility] MEDICAL PROGRE OPHTH 23739 [facility] MEDICAL 1 VISION XM&EVAL COMPRHNSV ESTAB PT 1/> [place] [address] NEW LENA ABDOMINAL 1 [facility] SHA REAL CLINIC [place] PSC W/[place] [address] NEW LENA RETROPERI 1 [facility] TONE[facility] CLINIC REAL TIME PSC W/IMAGE LIMITED LIPID 63126 COMBINED COMBINED PANEL 1 PHYSICIAN PHYSICIAN S LA S LA HEMOGLOBI 92778 COMBINED COMBINED N 1 PHYSICIAN PHYSICIAN GLYCOSYLA S LA S LA SONG A1C GENERAL 98181 COMBINED COMBINED HEALTH 1 PHYSICIAN PHYSICIAN PANEL S LA S LA MRI BRAIN 74384 [place] BRAIN 1 MEDICAL BUBBA STEM W/O IMAGING CONTRAST ASS MATERIAL 3D 86853 [place] RENDERING 1 MEDICAL BUBBA W/INTERP IMAGING & ASS POSTPROCE SS [place]VIS[place] MRI 29507 [place] SPINAL 1 MEDICAL BUBBA CANAL IMAGING CERVICAL ASS W/O CONTRAST MATRL RADIOLOGI 86609 [place] C EXAM 1 MEDICAL BUBBA CHEST 2 IMAGING VIEWS ASS FRONTAL&L ATERAL ECG 63218 [facility] ROUTINE 1 EMERGENCY III AREN ECG SERVICES W/LEAST 12 LDS I&R ONLY 3D 01703 [place] RENDERING 1 [facility] W/INTERP IMAGING & [place] [address] [place] HEAD/BRAI 1 MEDICAL [facility] N W/O IMAGING CONTRAST ASS MATERIAL ECG 53299 [facility] SUE ROUTINE 1 [facility] ECG INC INC W/LEAST 12 LDS TRCG ONLY W/O I&R BLOOD 94326 [facility] SUE COUNT 1 [facility] COMPLETE INC INC AUTO&AUTO DIFRNTL WBC BASIC 10904 LINETTE SUE METABOLIC 1 [facility] [place] [address] LIN[facility] SUE TROPONIN 1 [facility] QUANTITAT INC INC RUAP CREATINE 66651 LINETTE SUE KINASE MB 1 [facility] FRACTION INC INC ONLY CREATINE 66813 LINETTE SUE KINASE 1 [facility] TOTAL INC INC BASIC 50088 LINETTE SUE METABOLIC 1 [facility] PANEL INC INC CALCIUM TOTAL BLOOD 45006 LINETTE SUE COUNT 1 [facility] COMPLETE INC INC AUTO&AUTO DIFRNTL WBC LIPID 22551 LINETTE SUE PANEL 1 [facility] INC INC ECHO 03175 LINETTE SUE TTHRC R-T 1 [facility] 2D INC INC W/WOM-MOD E COMPL SPEC&COLR D OTHER 4513 LINETTE LINETTE ENDOSCOPY 1 [facility] [place] [address] LINETTE SUE INFUSION 1 [facility] THERAPY INC INC PROPHYLAX IS/DX EA HOUR ESOPHAGOG 79107 C CELESTINO ADAME ASTRODUOD 1 DEEP ARREOLA MD [facility] TRANSORAL DIAGNOSTI C SWALLOWIN 15387 LEONEL ANDREA G FUNCJ 1 MEDICAL [facility]UBBA W/CINERAD IMAGING IOGRAPY/[place] [address] LEONEL ANDREA HEAD/BRAI 1 MEDICAL [facility]UB[facility] N W/O IMAGING CONTRAST ASS MATERIAL ECG 18403 LINETTE SUE ROUTINE 1 [facility] ECG INC INC W/LEAST 12 LDS TRCG ONLY W/O I&R 3D 38044 LEONEL ANDREA RENDERING 1 MEDICAL [facility] W/INTERP IMAGING & ASS POSTPROCE SS SUPERVISI ON AMB A0427 DAVID HERNANDEZ SERVICE 1 [facility] ALS SERVICE SERVICE EMERGENCY TRANSPORT LEVEL 1 AMB A0422 DAVID HERNANDEZ OXYGEN&O2 1 [facility]ANCE SUPPLIES SERVICE SERVICE [place] [address] LEONEL ANDREA ABDOMEN & 1 MEDICAL B[facility] PELVIS IMAGING W/O ASS CONTRAST MATERIAL RADIOLOGI 19716 LEONEL ZULLY C 1 MEDICAL B[facility] EXAMINATI IMAGING ON CHEST ASS SINGLE VIEW FRONTAL 3D 71843 LINETTE SUE RENDERING 1 [facility] INC INC W/INTERP& POSTPROC DIFF WORK STATION URNLS DIP 38301 LINETTE SUE 1 [facility] STICK/TAB INC INC LET REAGENT AUTO MICROSCOP Y ALS A0398 DAVID HERNANDEZ ROUTINE 1 [facility]ANCE AMBULANCE DISPOSABL SERVICE SERVICE E SUPPLIES GROUND A0425 DAVID HERNANDEZ MILEAGE 1 AMB[facility]ANCE AMBULANCE PER SERVICE SERVICE STATUTE MILE BLOOD 47173 LIN[facility]TE SUE COUNT 1 [facility] COMPLETE INC INC AUTO&AUTO DIFRNTL WBC BASIC 03999 LINETTE SUE METABOLIC 1 [facility] [place] [address] LINETTE SUE TROPONIN 1 [facility] QUANTITAT INC INC RUPA CREATINE 44888 LINETTE SUE KINASE MB 1 [facility] FRACTION INC INC ONLY CREATINE 43707 LINETTE SUE KINASE 1 [place] [address] LINETTE SUE INFUSION 1 [facility] THERAPY/P INC INC ROPHYLAXI S /DX 1ST TO 1 HR ECG 47106 LINETTE MCKEMIE ROUTINE 1 [facility] W/LEAST P 12 LDS I&R ONLY SYPHILIS 42708 LINETTE SUE TEST 1 [facility] NON-TREPO INC [place] [address] LIN[facility] SUE THYROID 1 [facility] STIMULATI INC INC NG HORMONE TSH SEDIMENTA 81827 LINETTE SUE TION RATE 1 [facility] RBC INC INC NON-AUTOM ATED COMPREHEN 31191 LINETTE SUE SIVE 1 [facility] METABOLIC INC INC PANEL BLOOD 74958 LINETTE SUE COUNT 1 [facility] COMPLETE INC INC AUTO&AUTO DIFRNTL WBC CUL BACT 43567 LINETTE SUE AEROBIC 1 [facility] ADDL INC INC METHS DEFINITIV E EA ISOL CUL BACT 49418 LINETTE SUE XCPT 1 [facility] URINE INC INC BLOOD/STO OL AEROBIC ISOL SUSCEPTIB 58138 LINETTE SUE LTY STDY 1 [facility] ANTIMICRB INC INC IAL MICRO/AGA R DILUTJ 3D 46420 LINETTE SUE RENDERING 0 [facility] INC INC W/INTERP& [place] [address] LINETTE SUE HEAD/BRAI 0 [facility] N W/O INC INC CONTRAST MATERIAL INITIAL 70444 SHASHY SHASHY INPATIENT 0 JAROD JAROD CONSULT NEW/ESTAB PT 55 MIN LARYNGOSC 85007 SHASHY SHASHY OPY 0 JAROD OLIVERA FLEXIBLE DIAGNOSTI C AMB A0422 [facility]ID [facility] OXYGEN&O2 0 AMBULANCE AMBULANCE SUPPLIES SERVICE SERV[place] [address] [facility] ANGIOGRAP 0 MEDICAL BUB[facility] HY CHEST IMAGING W/CONTRAS ASS T/NONCONT RAST AMB A0427 [facility] SERVICE 0 AMBULANCE AMBULANCE ALS SERVICE SERVICE EMERGENCY TRANSPORT LEVEL 1 RADIOLOGI 85329 [facility] EXAMINATI IMAGING ON CHEST ASS SINGLE VIEW FRONTAL MYOCARDIA 75798 [facility] FALLUJI L SPECT 0 PHYSICIAN VENITA DONALDSON S GROUP STUDIES GROUND A0425 DAVID [facility] MILEAGE 0 AMBULANCE AMBULANCE PER SERVICE SERVICE STATUTE MILE 09981 [facility] 0 [facility] REAL TIME PSC W/IMAGE LIMITED BLOOD 65574 LINETTE SUE COUNT 0 [facility] COMPLETE INC INC AUTO&AUTO DIFRNTL WBC BASIC 67399 LINETTE SUE METABOLIC 0 [facility] PANEL INC INC [facility] G0378 LINETTE SUE OBSERVATI 0 [facility] ON INC INC [facility]ICE [facility] G0378 LINETTE SUE OBSERVATI 0 [facility] ON INC INC SERVICE PER HOUR LEVEL III 81627 PATHOLOGY PATHOLOGY SURG 0 & & PATHOLOGY CYTOLOGY CYTOLOGY LAB LAB GROSS&[place] [address] LINETTE SUE AMYLASE 0 [facility] INC INC CREATINE 90350 LINETTE SUE KINASE 0 [facility] [place] [address] LINETTE SUE LIPASE 0 [facility] INC INC IAADI 72510 LINETTE SUE INFFLUENZ 0 [facility] A A VIRUS INC INC IAADI 31814 LINETTE SUE INFLUENZA 0 [facility] B VIRUS INC INC LAPAROSCO 56280 ALLRAN ALLRAN PIC 0 JR, JR, [place]EN[place] [address] LINETTE SUE TROPONIN 0 [facility] QUANTITAT INC INC RUPA COMPREHEN 64394 LINETTE SUE SIVE 0 [facility] METABOLIC INC INC PANEL CREATINE 36821 LINETTE SUE KINASE MB 0 [facility] FRACTION INC INC ONLY BLOOD 80777 LINETTE SUE COUNT 0 [facility] COMPLETE INC INC AUTO&AUTO DIFRNTL WBC URNLS DIP 93043 [facility] SUE 0 [facility] STICK/TAB INC INC LET REAGENT AUTO MICROSCOP Y 3D 91881 [place], RENDERING 0 MEDICAL [facility] IMAGING W/INTERP& ASSOCIATE POSTPROC S DIFF WORK STATION CT PELVIS 36749 [place], W/O 0 [facility] CONTRAST IMAGING MATERIAL [place] [address] [place], COMPL 0 [facility] AQT ABD IMAGING W/S/E/D ASSOCIATE VIEWS 1 S VIEW CRITICAL 53190 [facility] 0 EMERGENCY III, ILL/INJUR SERVICES [facility] PATIENT ASSOCIATE INIT S 30-74 MIN ANESTHESI 66288 [facility] Brigida VERA 0 ANESTH LALO A INTRAPERI OF THE [facility] LOWER ABD W/LAPS NOS 3D 62639 LINETTE SUE RENDERING 0 [facility] W/INTERP INC INC & [place] [address] [facility], HEAD/BRAI 0 MEDICAL OLESYA N W/[place] [address] [facility], ABDOMEN 0 MEDICAL OLESYA W/O IMAGING CONTRAST ASSOCIATE MATERIAL S ECG 79070 LINETTE SUE ROUTINE 0 [facility] ECG INC INC W/LEAST 12 LDS TRCG ONLY W/O I&R ECG 17605 LINETTE [place], ROUTINE 0 [facility] W/LEAST PROF SERV 12 LDS I&R ONLY RHYTHM 10069 LINETTE SUE ECG 1-3 0 [facility] LEADS INC INC TRACING ONLY W/[place] [address] LINETTE SUE INFUSION 0 [facility] THERAPY/P INC INC ROPHYLAXI S /DX 1ST TO 1 HR LAPAROSCO 4701 LINETTE SUE PIC 0 [facility] [place] [address] LINETTE SUE INFUSION 0 [facility] THER INC INC PROPH ADDL SEQUENTIA L TO 1 HR BLOOD 03228 LINETTE SUE COUNT 0 [facility] COMPLETE INC INC AUTO&AUTO DIFRNTL WBC LIPID 53328 LINETTE SUE PANEL 0 [facility] [place] [address] LINETTE SUE THYROID 0 [facility] STIMULATI INC INC NG HORMONE TSH COMPREHEN 64768 LINETTE SUE SIVE 0 [facility] METABOLIC INC INC PANEL SPECIAL 69545 PATHOLOGY PATHOLOGY STAIN 9 & & GROUP 1 CYTOLOGY CYTOLOGY MICROORGA LAB LAB [facility] I&[place] [address] PATHOLOGY PATHOLOGY SURG 9 & & PATHOLOGY CYTOLOGY CYTOLOGY LAB LAB GROSS&[place] 59551 LINETTE SUE BALLOON 9 [facility] DILATION INC INC ESOPHAGUS <30 MM DIAM EGD 60377 GAIL SANCHEZ, TRANSORAL 9 MEDICAL ALEXIS BIOPSY SERV SINGLE/MU FOUNDATIO LTIPLE EGD 91819 GAIL SANCHEZ, INSERT 9 MEDICAL ALEXIS GUIDE SERV WIRE [place] [address] LINETTE SUE INFUSION 9 [facility] THERAPY INC INC PROPHYLAX IS/DX EA HOUR ESOPHAGOG 4516 LINETTE SUE ASTRODUOD 9 [facility] ENOSCOPY INC INC WITH CLOSED BIOPSY DILATION 4292 LNIETTE SUE OF 9 [facility] [place] [address] LINETTE SUE INFUSION 9 [facility] THERAPY/P INC INC ROPHYLAXI S /DX 1ST TO 1 HR HEPATBL 87450 UMBERTO LI SYS 9 MEDICAL [facility] [address] LINETTE SUE ABDOMINAL 9 [facility] REAL INC [place] [address] [place], RETROPERI 9 [facility] A REAL TIME PSC W/IMAGE LIMITED LIPID 07267 LINETTE SUE PANEL 9 [facility] INC INC RADIOLOGI 80590 Marbella LI 9 MEDICAL [facility] EXAMINATI IMAGING ON CHEST ASSOCIATE SINGLE S VIEW FRONTAL ECG 87096 LINETTE SUE ROUTINE 9 [facility] ECG INC INC W/LEAST 12 LDS TRCG ONLY W/O I&R 3D 94437 LINETTE SUE RENDERING 9 [facility] W/INTERP INC INC & [place] [address] RONALD LIGRAP 9 MED[facility] HY CHEST IMAGING W/CONTRAS [place]OCI[place] [address] LEONEL ANDREA HEAD/BRAI 9 MEDICAL [facility]YA N W/O IMAGING CONTRAST ASSOCIATE MATERIAL S COMPREHEN 12839 LINETTE SUE SIVE 9 [facility] METABOLIC INC INC PANEL BASIC 69284 LINETTE SUE METABOLIC 9 [facility] PANEL INC INC CALCIUM TOTAL BLOOD 69033 LINETTE SUE COUNT 9 [facility] COMPLETE INC INC AUTO&[place] [address] LINETTE SUE TROPONIN 9 [facility] QUANTITAT INC INC RUPA CREATINE 14989 LINETTE SUE KINASE MB 9 [facility] FRACTION INC INC ONLY CREATINE 99884 LINETTE SUE KINASE 9 [facility] [place] [address] [place] ZULL[place], ANGIOGRAP 9 MEDICAL O[facility] HY IMAGING ABDOMEN ASSOCIATE W/CONTRAS S T/NONCONT RAST ECG 31486 LINETTE MCCLAIN, ROUTINE 9 [facility] W/LEAST PROF SERV 12 LDS I&R ONLY DUPLEX 43858 LINETTE SUE SCAN 9 [facility] EXTRACRAN INC INC IAL ART COMPL BI STUDY MRI BRAIN 23917 OLESYA C ZULLY, BRAIN 8 ZULLY OLESYA STEM W/O W/CONTRAS T MATERIAL LIPID 31419 LINETTE SUE PANEL 8 [facility] INC INC COMPREHEN 93321 LINETTE SUE SIVE 8 [facility] METABOLIC INC INC PANEL SPECIAL 77062 [facility] STAIN 8 [facility] GROUP 1 LABORATOR LABORATOR MICROORGA Y Y NISMS I&[place] [address] [facility] SURG 8 CLINIC [facility] PATHOLOGY LABORATOR LABORATOR Y Y GROSS&[place] [address] [facility], ABDOMINAL 8 [place] [place] W REAL CLINIC [place] [address] [facility], RETROPERI 8 [facility] [place] [facility] TONEAL CLINIC REAL TIME PSC W/IMAGE LIMITED ANTIBODY 55559 [facility] HELICOBAC 8 CLINIC CLINIC TER LABORATOR LABORATOR PYLORI Y Y COLLECTIO 99613 [facility] N VENOUS 8 CLINIC CLINIC BLOOD LABORATOR LABORATOR VENIPUNCT Y Y URE CREATINE 50746 LINETTE SUE KINASE 8 [facility] TOTAL INC INC THROMBOPL 83390 LINETTE SUE ASTIN 8 [facility] TIME INC INC PARTIAL PLASMA/WH OLE BLOOD BASIC 78108 LINETTE SUE METABOLIC 8 [facility] [place] [address] LINETTE SUE TROPONIN 8 [facility] QUANTITAT INC INC RUPA PROTHROMB 40726 LINETTE SUE IN TIME 8 [facility] INC INC CREATINE 53956 LINETTE SUE KINASE MB 8 [facility] FRACTION INC INC ONLY BLOOD 60085 LINETTE SUE COUNT 8 [facility] COMPLETE INC INC AUTO&AUTO DIFRNTL WBC RADIOLOGI 90886 [facility] LOPEZ 8 MEDICAL CHAD P EXAMINATI IMAGING ON CHEST ASSOCIATE SINGLE S VIEW FRONTAL ECG 31652 LINETTE SUE ROUTINE 8 [facility] ECG INC INC W/LEAST 12 LDS TRCG ONLY W/O I&[place] [address] LINETTE SUE ANGIOGRAP 8 [facility] HY INC INC ABDOMEN W/CONTRAS T/NONCONT RAST ECG 52226 LINETTE RAMONASON, ROUTINE 8 [facility] W/LEAST PROF SERV 12 LDS I&R ONLY RADEX 99387 LINETTE SUE SPINE 8 [facility] LUMBOSACR INC INC AL MINIMUM 4 VIEWS OPHTH 93855 [place]ANE [place], MEDICAL 8 MICHAEL A MICHAEL A XM&EVAL COMPRE NEW PT 1/> VST DUPLEX 95122 [facility] ANDREA, SCAN 8 MEDICAL O[facility]YA EXTRACRAN IMAGING IAL [place] [address] [place], CERVICAL 8 [facility]ICAL [facility] SPINE W/[place] [address] [place], HEAD/BRAI 8 MEDICAL OLESYA N W/O IMAGING CONTRAST ASSOCIATE MATERIAL S 3D 37847 [place], RENDERING 8 MEDICAL OLESYA W/INTERP IMAGING & ASSOCIATE POSTPROCE S SS SUPERVISI ON AMB A0427 [facility] SERVICE 8 AMBULANCE AMBULANCE ALS SERVICE SERVICE EMERGENCY TRANSPORT LEVEL 1 RADIOLOGI 06613 [facility] PALENCIA 8 MEDICAL OLESYA EXAMINATI IMAGING ON CHEST ASSOCIATE SINGLE S VIEW FRONTAL 3D 42805 [place], RENDERING 8 MEDICAL OLES[facility] IMAGING W/INTERP& ASSOCIATE POSTPROC S DIFF WORK STATION GROUND A0425 [facility] MILEAGE 8 AMBULANCE AMBULANCE PER SERVICE SERVICE STATUTE MILE AMB A0422 [facility] OXYGEN&O2 8 AMBULANCE AMBULANCE SUPPLIES SERVICE SERVICE LIFE SUSTAININ G SITUATION THYROID 39317 [facility] [place] IMAGING 8 MEDICAL CHAD P W/UPTAKE IMAGING SINGLE ASSOCIATE DETERMINA S TION THYROID 63289 LINETTE SUE UPTAKE 8 [facility] SINGLE INC INC DETERMINA TION IODINE A9516 LINETTE SUE I-123 8 [facility] SODIUM INC INC IODIDE DX PER 100 UCI TO 999 ECG 20713 LINETTE SUE ROUTINE 8 [facility] ECG INC INC W/LEAST 12 LDS TRCG ONLY W/O I&R URNLS DIP 19439 LINETTE SUE 8 [facility] STICK/TAB INC INC LET REAGENT AUTO MICROSCOP Y CREATINE 27646 LINETTE SUE KINASE MB 8 [facility] FRACTION INC INC ONLY CREATINE 52445 LINETTE SUE KINASE 8 [facility] [place] [address] LINETTE SUE TROPONIN 8 [facility] QUANTITAT INC INC RUPA BLOOD 13179 LINETTE SUE COUNT 8 [facility] COMPLETE INC INC AUTO&AUTO DIFRNTL WBC COMPREHEN 94804 LINETTE SUE SIVE 8 [facility] METABOLIC INC INC PANEL ECG 44575 LINETTE JOHNY, ROUTINE 8 [facility] W/LEAST PROF SERV 12 LDS I&R ONLY COLLECTIO 07938 [facility] N VENOUS 8 [facility]IC [facility]INIC BLOOD LABORATOR LABORATOR VENIPUNCT Y Y URE URNLS DIP 66206 [facility] 8 [facility]INIC CLINIC STICK/TAB LABORATOR LABORATOR LET Y Y REAGENT AUTO MICROSCOP Y RENAL 69693 [facility] FUNCTION 8 CLINIC CLINIC PANEL LABORATOR LABORATOR Y Y ECG 58512 LINETTE SUE ROUTINE 8 [facility] ECG INC INC W/LEAST 12 LDS TRCG ONLY W/O I&R OBSERVATI 84457 [facility] 8 [facility] DISCHARGE INTERNAL MED MANAGEMEN T CREATINE 17621 LINETTE LINETTE KINASE 8 [facility] TOTAL INC INC CREATINE 55965 LINETTE SUE KINASE MB 8 [facility] FRACTION INC INC ONLY HOSPITAL G0378 LINETTE SUE OBSERVATI 8 [facility] [place] [address] LINETTE SUE TROPONIN 8 [facility] QUANTITAT INC INC RUPA ECG 28210 LINETTE [place], ROUTINE [address] [facility] W/LEAST PROF SERV 12 LDS I&R ONLY ECG 08528 LINETTE [place], ROUTINE 8 [facility] W/LEAST PROF SERV 12 LDS I&R ONLY RHYTHM 42187 LINETTE SUE ECG 1-3 8 [facility] LEADS INC INC TRACING ONLY W/O I&[place] [address] LINETTE SUE TROPONIN 8 [facility] QUANTITAT INC INC RUPA PROTHROMB 31627 LINETTE SUE IN TIME 8 [facility] INC INC BASIC 44278 LINETTE SUE METABOLIC 8 [facility] PANEL INC INC CALCIUM TOTAL BLOOD 54982 LINETTE SUE COUNT 8 [facility] COMPLETE INC INC AUTO&AUTO DIFRNTL WBC CREATINE 30450 LINETTE SUE KINASE MB 8 [facility] FRACTION INC INC ONLY CREATINE 98495 LINETTE SUE KINASE 8 [facility] TOTAL INC INC ECG 72847 LINETTE SUE ROUTINE 8 [facility] ECG INC INC W/LEAST 12 LDS TRCG ONLY W/O I&R RADIOLOGI 65744 [facility] LOPEZ 8 MEDICAL CHAD P EXAMINATI IMAGING ON CHEST ASSOCIATE SINGLE S VIEW FRONTAL INITIAL 86649 LISSY NICK 8 LAFAYETTE NETTIE ON INTERNAL CARE/DAY MED 30 MINUTES 3D 71789 [facility] W[facility]GA[facility]ESCENCIO LOPEZ 8 MEDICAL CHAD P IMAGING W/INTERP& ASSOCIATE POSTPROC S DIFF WORK STATION CT THORAX 84804 Dawn LAWSON MEDICAL CHAD P W/CONTRAS IMAGING T ASSOCIATE MATERIAL S US SOFT 60589 LINETTE SUE TISSUE 8 [facility] HEAD & INC INC NECK REAL TIME IMGE DOCM CT PELVIS 31921 LINETTE SUE 8 [facility] W/CONTRAS INC INC T MATERIAL RADEX 76410 LINETTE SUE SPINE 8 [facility] CERVICAL INC [place] [address] [place] [address] [facility] LUDY, ABDOMEN 8 MEDICAL CHAD P W/ROBERT IMAGING T ASSOCIATE MATERIAL S LIPID 73943 LINETTE SUE PANEL 8 [facility] INC INC CYANOCOBA 72094 LINETTE SUE JUAN 8 [facility] VITAMIN INC INC B-12 [place] [address] LINETTE SUE THYROXINE 8 [facility] TOTAL INC INC BLOOD 43083 LINETTE LINETTE COUNT 8 [facility] COMPLETE INC INC AUTO&AUTO DIFRNTL WBC COMPREHEN 56570 LINETTE SUE SIVE 8 [facility] [address] LINETTE SUE FOLIC 8 [facility] ACID INC INC SERUM HEMOGLOBI 88689 LINETTE SUE N 8 [facility] GLYCOSY[place] [address] LINETTE SEU THYROID 8 [facility] H[facility] STIMULAT[place] [address] LINETTE SUE TROPONIN 8 [facility] QUANTITAT INC INC RUPA BASIC 47274 LINETTE SUE METABOLIC 8 [facility] PANEL INC INC CALCIUM TOTAL BLOOD 59708 LINETTE SUE COUNT 8 [facility] COMPLETE INC INC AUTO&AUTO DIFRNTL WBC HOSPITAL G0378 LINETTE SUE OBSERVATI 8 [facility] ON INC INC SERVICE PER HOUR CREATINE 50620 LINETTE SUE KINASE MB 8 [facility] FRACTION INC INC ONLY CREATINE 62650 LINETTE SUE KINASE 8 [facility] TOTAL INC INC LIPID 28969 LINETTE SUE PANEL 8 [facility] INC INC GROUND A0425 [facility]ULANCE AMBULANCE PER SERVICE SERVICE STATUTE MILE INJECTION 95017 [facility] M[facility]INA, CARDIAC 8 HEART & AMADOR Y CATHJ L VASCULAR VENTR/L ASSOC ATR ANGIOGRAP H INITIAL 06081 [facility] MELINA, INPATIENT 8 HEART & AMADOR Y CONSULT VASCULAR NEW/ESTAB ASSOC PT 80 MIN ECG 02955 LINETTE SUE ROUTINE 8 [facility] ECG INC INC W/LEAST 12 LDS TRCG ONLY W/O I&R L HRT 76552 LEONEL SUMMERS CATHETERI 8 HEART & AMADOR Y ZATION VASCULAR [place]ROGR[place] [address] LEONEL SUMMERS, C-CATHJ 8 HEART & AMADOR Y F/SLCTV C VASCULAR ANGRPH ASSOC I SI&R 19914 LEONEL SUMMERS, F/NJX PX 8 HEART & AMADOR Y DURING VASCULAR C-CATHJ ASSOC VENTR&/AT R ANGRPH I SI&R 29036 LEONEL SUMMERS, F/NJX PX 8 HEART & AMADOR Y DURING VASCULAR C-CATHJ ASSOC PULM&/OR SELECT NONINVASI 88947 LINETTE SUE VE 8 [facility] EAR/PULSE INC INC OXIMETRY SINGLE DETER ECG 12412 LEONEL FAMUJI, ROUTINE 8 HEART & NEZAR M ECG VASCULAR W/LEAST ASSOC 12 LDS I&R ONLY ECG 89124 LINETTE MCCLAIN, ROUTINE 8 [facility] W/LEAST PROF SERV 12 LDS I&R ONLY NONINVASI 44787 [facility]UE VE 8 [facility] EAR/PULSE INC INC OXIMETRY SINGLE DETER RHYTHM 31431 LINETTE SUE ECG 1-3 8 [facility] LEADS INC INC TRACING ONLY W/O I&R RADIOLOGI 18980 [facility] SUE C 8 [facility] EXAMINATI INC INC ON CHEST S[place] FRONTAL ECG 68971 [facility] SUE ROUTINE 8 [facility] ECG INC INC W/LEAST 12 LDS TRCG ONLY W/O I&R CREATINE 25024 [facility] SUE KINASE 8 [facility] TOTAL INC INC CREATINE 38279 LIN[facility] SUE KINASE MB 8 [facility] FRACTION INC INC ONLY THROMBOPL 42908 LIN[facility] SUE ASTIN 8 [facility] TIME INC INC PARTIAL PLASMA/WH OLE BLOOD [facility] [id number] LIN[facility] SUE OBSERVATI 8 [facility] ON INC INC SERVICE PER HOUR BLOOD 90476 LIN[facility] SUE COUNT 8 [facility] COMPLETE INC INC AUTO&AUTO DIFRNTL WBC COMPREHEN 09426 [facility] SUE SIVE 8 [facility] METABOLIC INC INC PANEL NATRIURET 24454 [facility] SUE IC 8 [facility] [place] [address] [facility] SUE TROPONIN 8 [facility] QUANTITAT INC INC RUPA PROTHROMB 24687 [facility] SUE IN TIME 8 [facility] INC INC MRI 43825 OLESYA C ZULLY, SPINAL 8 Z[facility] OLESYA CANAL LUMBAR W/O CONTRAST MATERIAL MRI 81426 OLESYA C ZULLY, SPINAL 8 [facility] OLESYA CANAL CERVICAL W/O CONTRAST [facility] 42928 Brigida CALVILLO MD C OFFICE PSC OT/N REG SCHED HOURS Encounters Encounter Start End Date Code Location Performer Type Date [facility] - 7 7 [facility] T OFFICE 40749 LAVINIA MCKEON 7 7 Kate TOWNSEND MD,[facility] 25 MINUTES [facility] - 7 7 [facility] T OFFICE 16946 [facility] 7 7 PHYSIC[facility] T VISIT S GROUP 40 MINUTES [facility] - 7 7 [facility] LINETTE - 7 7 [facility] T OFFICE 79298 [facility] OUTPATI[facility] 7 7 PHYSICIAN T VISIT S GROUP 40 MINUTES [facility] - 7 7 [facility] T OFFICE 78720 LAVINIA MCKEON 7 7 Kate TOWNSEND MD,[facility] 15 MINUTES [facility] - 7 7 [facility] T [facility] - 7 7 [facility] T OFFICE 51606 [facility] OUTPATIEN 7 7 PHYSICIAN T VISIT S GROUP 40 MINUTES OFFICE 73984 [facility] CB OUTPATIEN 7 7 PHYSICIAN T VISIT 5 S GROUP MINUTES [facility] - 7 7 [facility] OUT[facility] INC T EMERGENCY 99290 DEMETRIS VIRK 7 7 PHYSICIAN JR DEPARTMEN S, [facility] T VISIT HIGH/URGE NT SEVERITY OFFICE 59840 [facility] SERNAPATIEN 7 7 [facility] 10 P MINUTES [facility] - 7 7 [facility] OUTPATIEN INC T EMERGENCY 02573 DEMETRIS ANDERS DEPT 7 7 PHYSICIAN VISIT S, [facility] HIGH SEVERITY& THREAT FUNCJ EMERGENCY 13932 [facility] 7 7 [facility] DEPARTMEN INC T VISIT LOW/MODER SEVERITY OFFICE 24998 [facility] OUTPATIEN 7 7 T NEW 30 CHIROPRAC MINUTES [facility] LINETTE - 7 7 [facility] OUTPATIEN INC T OFFICE 44974 LAVINIA KATE OUTPATIEN 7 7 [facility]IAN T VISIT ,[facility] 25 MINUTES [facility] - 7 7 [facility] OUTPATIEN INC T OFFICE 84347 [facility] OUTPATIEN 7 7 [facility] T VISIT 5 INC MINUTES [facility] - 7 7 [facility] OUT[facility]IEN INC T [facility] - [facility] 7 [facility] INC T OFFICE 29288 [facility] [place] OUTPATIEN 7 7 PHYSICIAN T VISIT S GROUP 25 MINUTES [facility] - [facility] 7 [facility] T [facility] - [facility] 7 [facility] OUT[facility]IEN INC T EMERGENCY 96066 [facility] 7 7 [facility] DEPARTMEN INC T VISIT MODERATE SEVERITY [facility] - [facility] INC T EMERGENCY 46564 DEMETRIS HUYNH DEPT 7 7 PHYSICIAN U VISIT S, [facility] HIGH SEVERITY& THREAT FUNCJ OFFICE 54329 [facility] LEIVA OUTPATIEN 7 7 [facility] VISIT HOSPITAL 15 P MINUTES OFFICE 00986 JANET ARACELILADAN OUTPATIEN 7 7 [facility] T VISIT MEDICAL 15 G MINUTES [facility] - 6 6 [facility] INC [facility] - 6 6 [facility] INC T OFFICE 83923 [facility] [place] OUTPATIEN 6 6 PHYSICIAN T VISIT S GROUP 25 MINUTES OFFICE 64970 LAVINIA TOWNSEND OUTPATIEN 6 6 Kate TOWNSEND MD,[facility] 25 MINUTES OFFICE 90894 [facility] LEIVA OUTPATIEN 6 6 [facility] T VISIT HOSPITAL 10 P MINUTES OFFICE 25895 KANE FERRARA OUTPATIEN 6 6 T VISIT 10 MINUTES EMERGENCY 35023 DEMETRIS ANDERS DEPT 6 6 PHYSICIAN CHARLEY VISIT S, PLLC HIGH SEVERITY& THREAT FUNJ EMERGENCY 38144 [facility] 6 6 [facility] DEPARTMEN INC T VISIT HIGH/URGE NT SEVERITY [facility] - 6 6 [facility] INC T OFFICE 89368 LAVINIA ALDANA OUTPATIEN 6 6 STEPHEN TOWNSEND MD,[facility] MINUTES HOSPITAL [facility] - 6 6 [facility] INC T EMERGENCY 76737 DEMETRIS [place] 6 6 PHYSICIAN CHARLEY DEPARTMEN S, [facility] T VISIT HIGH/URGE NT SEVERITY EMERGENCY 40684 [facility] 6 6 [facility] DEPARTMEN INC T VISIT MODERATE SEVERITY [facility] - 6 6 [facility] INC T OFFICE 75867 [facility] TOD OUTPATIEN 6 6 PHYSICIAN T VISIT S GROUP 10 MINUTES [facility] - 6 6 [facility] T OFFICE 47916 [facility] OUTPATIEN 6 6 PHYSICIAN T VISIT 5 S GROUP MINUTES OFFICE 70900 [facility] OUTPATIEN 6 6 PHYSICIAN CHARLEY T VISIT S GROUP 15 MINUTES [facility]OSP[facility] - 6 6 [facility] INC T [facility] - 6 6 [facility] INC T OFFICE 17425 [facility] OUTPATIEN 6 6 PHYSICIAN MAT T VISIT S GROUP 25 MINUTES HOSPITAL [facility] 6 6 [facility] OUTPATIEN INC T OFFICE 46619 [facility] TOD CONSULTAT 6 6 PHYSICIAN ION S GROUP NEW/ESTAB PATIENT 30 MIN OFFICE 12247 [facility] OUTPATIEN 6 6 PHYSICIAN CHARLEY T VISIT S GROUP 10 MINUTES OFFICE 68247 [facility] OUTPATIEN 6 6 PHYSICIAN CHARLEY T VISIT S GROUP 10 MINUTES OFFICE 05918 BOYD MCKEON 6 6 MD JERMAINE, T VISIT PSC 15 MINUTES OFFICE 99332 [facility] OUTPATIEN 6 6 PHYSICIAN CHARLEY T VISIT S GROUP 10 MINUTES OFFICE 78524 BOYD MCKEON 6 6 MD JERMAINE, T VISIT PSC 15 MINUTES OFFICE 36795 PROGRESSI BANDAR OUTPATIEN 6 6 VE TEREZA T NEW 30 PODIATRY MINUTES OFFICE 10276 [facility] EDWARD OUTPATIEN 6 6 PHYSICIAN EUG T VISIT S GROUP 15 MINUTES [facility] - 6 6 [facility] INC T OFFICE 38639 BOYD BARRETT OUTPATIEN 6 6 MD JERMAINE, T VISIT PSC 25 MINUTES OFFICE 11525 [facility] OUT[facility]IEN 6 6 [facility] T VISIT INC 10 MINUTES [facility]OSP[facility] - 6 6 [facility] - 6 6 [facility] T OFFICE 11980 [place] CONSULTAT 6 6 MEDICAL THO ION SERV NEW/ESTAB FOUNDATIO PATIENT N 40 MIN OFFICE 88737 [facility] 6 6 Y T VISIT 5 HOSPITAL MINUTES HOSPITAL UN[facility]ERSIT - 6 6 [facility] INC T OFFICE 65013 SCIFRES SCIFRES OUTPATIEN 6 6 ANG ANG T VISIT 10 MINUTES OFFICE 25056 BOYD ASHER OUTPATIEN 6 6 MD JERMAINE, T VISIT PSC 15 MINUTES [facility]OSP[facility] - 6 6 [facility] T [facility] - 6 6 [facility] INC T EMERGENCY 41486 DEMETRIS NIELSON DEPT 6 6 PHYSICIAN VISIT S, PLLC HIGH SEVERITY& THREAT FUNCJ EMERGENCY 73257 [facility] 6 6 [facility] DEPARTMEN INC T VISIT HIGH/URGE NT SEVERITY [facility] - 6 6 [facility] T [facility] - 6 6 [facility] T [facility] - 5 5 [facility] T [facility] - 5 5 [facility] OUTPATIEN INC T EMERGENCY 56986 [facility] 5 5 [facility] T VISIT LOW/MODER SEVERITY EMERGENCY 87244 DEMETRIS MOREL 5 5 PHYSICIAN ESTRELLITAMEN , [facility] T VISIT MODERATE SEVERITY OFFICE 58617 [facility] OUTPATIEN 5 5 PHYSICIAN [facility] T VISIT S GROUP 10 MINUTES OFFICE 88216 [facility] T VISIT MEDICAL 15 G MINUTES [facility] - 5 5 [facility] T OFFICE 87270 BOYD ASHER OUTPATIEN 5 5 MD JERMAINE, T VISIT PSC 15 MINUTES [facility]OSP[facility] - 5 5 [facility] - 5 5 [facility] OUTPATIEN INC T OFFICE 90590 BOYD BARRETT OUTPATIEN 5 5 MD JERMAINE, T VISIT PSC 15 MINUTES [facility]OSP[facility] - 5 5 [facility] T OFFICE 78210 [facility] LEIVA OUTPATIEN 5 5 [facility] T VISIT HOSPITAL 10 P MINUTES EMERGENCY 95476 DEMETRIS HUYNH 5 5 PHYSICIAN Dee [facility] S, [facility] T VISIT HIGH/URGE NT SEVERITY OFFICE 81930 [facility] LEIVA OUTPATIEN 5 5 [facility] T VISIT HOSPITAL 15 P MINUTES [facility]OSP[facility] - 5 5 [facility]EN [facility] T OFFICE 11519 FREDY PATTERSONX BUX ANJ OUTPATIEN 5 5 MD T VISIT 10 MINUTES [facility]OSP[facility] - 5 5 [facility] INC T OFFICE 39001 CARDIOVAS [facility] OUTPATIEN 5 5 CULAR MAT T VISIT CONSULTAN 15 TS O MINUTES OFFICE 57674 FREDY DEAN BUX ANJ OUTPATIEN 5 5 MD T NEW 30 MINUTES [facility] - 5 5 [facility] INC T OFFICE 11827 CARDIOVAS [facility] OUTPATIEN 5 5 CULAR MAT T NEW 45 CONSULTAN MINUTES TS O HOSP[facility] - 5 5 [facility]PAT[facility]EN INC T [facility] - 5 5 [facility] OUTPATIEN INC T OFFICE 41065 [facility] OUTPATIEN 5 5 PHYSICIAN CHARLEY T VISIT S GROUP 10 MINUTES EMERGENCY 29043 [facility] 5 5 [facility] DEPARTMEN INC T VISIT HIGH/URGE NT SEVERITY [facility] - 5 5 [facility] OUT[facility]IEN INC T OFFICE 54656 [facility] GRETCHEN OUTPATIEN 4 4 [facility] T VISIT MEDICAL 10 G MINUTES [facility] - 4 4 [facility] OUTPATIEN INC [facility] - 4 4 [facility] OUTPATIEN INC T OFFICE 94406 LEIVA LEIVA OUTPATIEN 4 4 ART ART T VISIT 15 MINUTES OFFICE 20837 LEIVA LEIVA OUTPATIEN 4 4 ART ART T VISIT 15 MINUTES EMERGENCY 95939 JAIDEN CAMILLA JAIDEN CAMILLA 4 4 DEPARTMEN T VISIT HIGH/URGE NT SEVERITY [facility] - 4 4 [facility] INC T OFFICE 52671 ARACELILisetteAngelica GODINEZ OUTPATIEN 4 4 JUDAH TREVINO T NEW 45 MINUTES OFFICE 49356 [facility] ANDERS OUTPATIEN 4 4 CHARLEY CHARLEY T VISIT 10 MINUTES EMERGENCY 81511 [facility]AMP[facility] 4 4 III AREN III AREN DEPARTMEN T VISIT HIGH/URGE NT SEVERITY [facility] - 4 4 [facility] INC T EMERGENCY 10150 [facility] 4 4 [facility] DEPARTMEN INC T VISIT MODERATE SEVERITY [facility] - 4 4 [facility] INC T EMERGENCY 41820 [facility]AMP[facility] DEPT 4 4 III AREN III AREN VISIT HIGH SEVERITY& THREAT FUNCJ OFFICE 39338 [facility] OUTPATIEN 4 4 CHARLEY CHARLEY T NEW 30 MINUTES [facility]OSP[facility] - 4 4 [facility] OUTPATIEN INC T EMERGENCY 23906 [facility] DEPT 4 4 [facility] VISIT INC HIGH SEVERITY& THREAT FUNCJ OFFICE 55033 VITA TREVINO OUTPATIEN 4 4 T NEW 45 MINUTES [facility]OSP[facility] - 3 3 [facility] OUT[facility]IEN INC T OFFICE 35405 NATHALY CRMIHira OUTPATIEN 3 3 JR AREN JR AREN T VISIT 15 MINUTES HOSPITAL [facility] - 3 3 [facility] 80030 UNIVERSIT OUTPATIEN 3 3 Y T NEW 10 HOSPITAL MINUTES OFFICE 87186 POPEYE PHI POPEYE PHI CONSULTAT 3 3 ION NEW/ESTAB PATIENT 40 MIN [facility] - 3 3 [facility] INC T OFFICE 45238 SHAYEMIE MCKEMIE OUTPATIEN 3 3 JR AREN YOUNGER T VISIT 15 MINUTES HOSP[facility] - 3 3 [facility] OUTPATIEN INC T [facility] - 3 3 [facility] OUTPATIEN INC T [facility] - 3 3 [facility] OUTPATIEN INC T [facility] - 3 3 [facility] T [facility] - 3 3 [facility] OUTPATI[facility] INC T OFFICE 50089 LAUREN AGUILAR OUTPATIEN 3 3 SAVITA BARNEY T VISIT 15 MINUTES OFFICE 64578 MCKEMIE MCKEMIE OUTPATIEN 3 3 JR AREN YOUNGER T VISIT 15 MINUTES OFFICE 15881 MCKEMIE MCKEMIE OUTPATIEN 3 3 JR AREN YOUNGER T VISIT 15 MINUTES [facility] - 3 3 [facility] OUTPAT[facility]EN INC T OFFICE 43908 MCKEMIE MCKEMIE OUTPATIEN 3 3 JR AREN YOUNGER T VISIT 15 MINUTES EMERGENCY 85856 VOLODYMYR BRADFORD 3 3 EMERGENCY [facility] T VISIT HIGH/URGE NT SEVERITY EMERGENCY 89440 [facility] 3 3 [facility] DEPARTMEN INC T VISIT LOW/MODER SEVERITY [facility] - 3 3 [facility] OUTPAT[facility]EN INC T OFFICE 72025 MCKEMIE MCKEMIE OUTPATIEN 3 3 JR AREN YOUNGER T VISIT 15 MINUTES [facility]OSP[facility] - 3 3 [facility] OUTPATIEN INC T EMERGENCY 17121 [facility] ANDERS DEPT 3 3 CHARLEY CHARLEY VISIT HIGH SEVERITY& THREAT FUN EMERGENCY 12464 [facility] 3 3 [facility] DEPARTMEN INC T VISIT HIGH/URGE NT SEVERITY [facility] - 3 3 [facility] OUTPATIEN INC T OFFICE 03613 BERITNE BERTINE OUTPATIEN 3 3 JR AREN YOUNGER T VISIT 15 MINUTES [facility]OSPITAL [facility] - 3 3 [facility] OUTPATIEN INC T EMERGENCY 57269 [facility] 3 3 [facility] DEPARTMEN INC T VISIT HIGH/URGE NT SEVERITY EMERGENCY 64462 [facility] DEPT 3 3 CHARLEY CHARLEY VISIT HIGH SEVERITY& THREAT [facility]ETTE - 2 2 [facility] OUTPATIEN INC T [facility] - 2 2 [facility] OUTPATIEN INC T OFFICE 02777 CALI ESCOBARKINS OUTPATIEN 2 2 ART ART T VISIT 5 MINUTES [facility] - 2 2 [facility] T [facility] - 2 2 [facility] OUT[facility] INC T OFFICE 84242 CALI ESCOBARKINS OUTPATIEN 2 2 ART ART T NEW 20 MINUTES [facility]OSP[facility] - 2 2 [facility] OUTPATIEN INC T OFFICE 80414 JAMA YUN OUTPATIEN 2 2 NAN NAN T VISIT 15 MINUTES [facility] - 2 2 [facility] INC T OFFICE 45575 JAMA YUN OUTPATIEN 2 2 ARPAN ANTONY T VISIT 15 MINUTES OFFICE 91961 NICK ROMERO OUTPATIEN 2 2 CARLOTA VAN T NEW 60 MINUTES OFFICE 26940 NATHALY ANDERSEN OUTPATIEN 2 2 JR AREN YOUNGER T VISIT 15 MINUTES [facility]OSP[facility] - 2 2 [facility] INC T OFFICE 98870 JOHNY MCCLAIN OUTPATIEN 2 2 CAMILLA CAMILLA T VISIT 25 MINUTES OFFICE 37856 KANE MIDDLETON ALEM OUTPATIEN 2 2 T VISIT 10 MINUTES EMERGENCY 90728 [facility] DEPT 2 2 III AREN III AREN VISIT HIGH SEVERITY& THREAT FUNCJ EMERGENCY 68925 [facility] 2 2 [facility] DEPARTMEN INC T VISIT HIGH/URGE NT SEVERITY [facility] - 2 2 [facility] OUTPATIEN INC T OFFICE 58741 MCKEMIE MCKEMIE OUTPATIEN 2 2 JR AREN JR AREN T VISIT 15 MINUTES OFFICE 25769 EDGE DONNIE FIELDS OUTPATIEN 2 2 T NEW 10 MINUTES HOSPITAL [facility] - 2 2 [facility] OUTPATIEN INC T OFFICE 54964 ODALYS MORROW LB OUTPATIEN 2 2 T VISIT 10 MINUTES [facility] - 2 2 [facility] OUT[facility] INC T EMERGENCY 71569 [facility] DEPT 2 2 III AREN III AREN VISIT HIGH SEVERITY& THREAT FUNCJ EMERGENCY 63137 [facility] 2 2 [facility] DEPARTMEN INC T VISIT MODERATE SEVERITY EMERGENCY 67985 BARAHONA MICHELLE BARAHONA MICHELLE DEPT 1 1 VISIT HIGH SEVERITY& THREAT FUN HOSPITAL [facility] - 1 1 [facility] OUTPATIEN INC T EMERGENCY 37315 [facility] 1 1 [facility] DEPARTMEN INC T VISIT MODERATE SEVERITY OFFICE 59303 [facility] JOHNY OUTPATIEN 1 1 [facility] T VISIT INTERNAL 25 MED MINUTES OFFICE 90385 ODALYS MORROW LB OUTPATIEN 1 1 T NEW 30 MINUTES OFFICE 31923 BISHNU MORRISON JR OUTPATIEN 1 1 ATULFERNANDA AREN T VISIT CLINIC 15 PSC MINUTES OFFICE 09911 NEW MITCH MAT OUTPATIEN 1 1 [facility] ED VISIT CLINIC 25 PSC MINUTES OFFICE 85335 [facility] BESSON OUTPATIEN 1 1 [facility] T VISIT INTERNAL 25 MED MINUTES OFFICE 89487 NEW MCCORMACK CONSULTAT 1 1 [facility] NEW/ESTAB PSC PATIENT 80 MIN [facility]OSP[facility] - 1 1 [facility] OUTPAT[facility]EN INC T OFFICE 17194 [facility] BESSON OUTPATIEN 1 1 LAFAYETTE CAMILLA T VISIT INTERNAL 15 MED MINUTES EMERGENCY 15063 VOLODYMYR CAMPOS DEPT 1 1 EMERGENCY III AREN VISIT SERVICES HIGH SEVERITY& THREAT FUNCJ EMERGENCY 62850 [facility] 1 1 [facility] T VISIT MODERATE SEVERITY [facility]OSPITAL [facility] - 1 1 [facility] OUTPATIEN INC OFFICE 43112 [place] BESSON OUTPATIEN 1 1 [facility] T VISIT INTERNAL 25 MED MINUTES OFFICE 53325 [facility] BESSON OUTPATIEN 1 1 [facility] T VISIT INTERNAL 25 MED MINUTES [facility] - 1 1 [facility]EN [facility] - 1 1 [facility] OUTPATIEN INC OFFICE 71666 [facility] BESSON OUTPATIEN 1 1 [facility] T VISIT INTERNAL 25 MED MINUTES [facility] - 1 1 [facility] OUTPATIEN INC [facility] - 1 1 [facility] OUTPATI[facility] INC T OFFICE 66161 [facility] BESSON OUTPATIEN 1 1 [facility] T VISIT INTERNAL 15 MED MINUTES [facility] - 1 1 [facility] OUTPATIEN INC T EMERGENCY 08143 VOLODYMYR CAMPOS DEPT 1 1 EMERGENCY III AREN VISIT SERVICES HIGH SEVERITY& THREAT FUNCJ EMERGENCY 97478 [facility] 1 1 [facility] DEPARTMEN INC T VISIT HIGH/URGE NT SEVERITY OFFICE 38079 [facility] MCKEMIE OUTPATIEN 1 1 NAHUN YOUNGER T VISIT INTERNAL 15 MED MINUTES OFFICE 97136 [place] MCKEMIE OUTPATIEN 1 1 NAHUN YOUNGER T VISIT INTERNAL 15 MED MINUTES [facility] - 1 1 [facility] OUTPATIEN INC T OFFICE 45898 [facility] BESSON OUTPATIEN 1 1 NAHUN SAMPSON T VISIT INTERNAL 15 MED MINUTES [facility] - 1 1 [facility] OUTPATIEN INC T OFFICE 90838 [facility] LAUREN OUTPATIEN 1 1 NAHUN BARNEY T VISIT INTERNAL 15 MEDI MINUTES OFFICE 07615 [place] MCKEMIE OUTPATIEN 0 0 NAHUN YOUNGER T VISIT INTERNAL 15 MED MINUTES [facility] - 0 0 [facility] OUTPATIEN INC T OFFICE 06658 [place] MCKEMIE OUTPATIEN 0 0 NAHUN YOUNGER T VISIT INTERNAL 15 MED MINUTES EMERGENCY 36855 VOLODYMYR CHARANBYRON BOURNE DEPT 0 0 EMERGENCY VISIT SERVICES HIGH SEVERITY& THREAT [facility] OFFICE 45663 [facility] BESSON OUTPATIEN 0 0 NAHUN PAIGE VISIT INTERNAL 15 MED MINUTES OFFICE [address] [facility] 15 PSC MINUTES OFFICE 76591 [place] MCKEMIE OUTPATIEN 0 0 Kate GARNICA JR VISIT INTERNAL MCKAYLA F 15 MED MINUTES EMERGENCY 24015 [facility] 0 0 [facility] DEPARTMEN INC T VISIT HIGH/URGE NT SEVERITY [facility] - 0 0 [facility] OUTPATIEN INC T OFFICE 46100 ALLRAN ALLRAN CONSULTAT 0 0 JR CECELIA, ANH JOSHI Donya Naqvi NEW/ESTAB PATIENT 80 MIN OFFICE 24588 [place] MCKEMIE OUTPATIEN 0 0 Kate GARNICA JR VISIT INTERNAL MCKAYLA F 15 MED MINUTES HOSPITAL [facility] - 0 0 [facility] OUTPATIEN INC T OFFICE 49982 [place] MCKEMIE OUTPATIEN 9 9 Kate GARNICA JR VISIT INTERNAL MCKAYLA F 15 MED MINUTES HOSPITAL [facility] - 9 9 [facility] OUTPATIEN INC T OFFICE 65315 GAIL SANCHEZ OUTPATIEN 9 9 ULI ESPINOZA T VISIT SERV 25 FOUNDATIO MINUTES HOSPITAL [facility] - 9 9 [facility] OUTPATIEN INC [facility]OSPITAL [facility] - 9 9 [facility] OUTPATIEN INC T OFFICE 76339 [facility] OJHNY OUTPATIEN 9 9 NAHUN Allred T VISIT INTERNAL 15 MED MINUTES OFFICE 21451 BISHNU MORRISONLauern OUTPATIEN 9 9 [facility] T VISIT CLINIC 15 PSC MINUTES OFFICE 33055 [facility] SHAYEMIE OUTPATIEN 9 9 Kate GARNICA JR VISIT INTERNAL MCKAYLA F 15 MED MINUTES HOSPITAL [facility] - 9 9 [facility] OUTPATIEN INC T EMERGENCY 65691 VOLODYMYR MASON, DEPT 9 9 EMERGENCY [place] VISIT SERVICES O HIGH SEVERITY& ASSOCIATE THREAT S FUN EMERGENCY 04404 [facility] 9 9 [facility] DEPARTMEN INC T VISIT HIGH/URGE NT SEVERITY OFFICE 40032 [facility] RUTKEMIE OUTPATIEN 9 9 NAHUN RAI Kate VISIT INTERNAL MCKAYLA F 15 MED MINUTES OFFICE 64215 [facility] ELIAS OUTPATIEN 9 9 NAHUN NETTIE T VISIT INTERNAL 15 MED MINUTES OFFICE 71354 [facility] BESSON, OUTPATIEN 9 9 NAHUN Allred T VISIT INTERNAL 10 MED MINUTES OFFICE 42159 [facility] MCKEMIE OUTPATIEN 9 9 NAHUN T VISIT INTERNAL MCKAYLA F 15 MED MINUTES HOSPITAL [facility] - 9 9 [facility] OUTPATIEN INC T OFFICE 65584 [facility] ELIAS, OUTPATIEN 9 9 NAHUN SHEFFIELD T VISIT INTERNAL 15 MED MINUTES [facility] - 8 8 [facility] OUTPATIEN INC T OFFICE 38822 [facility] ELIAS, OUTPATIEN 8 8 NAHUN SHEFFIELD T VISIT INTERNAL 15 MED MINUTES OFFICE 10832 [facility] ELIAS, OUTPATIEN 8 8 NAHUN SHEFFIELD T VISIT INTERNAL 15 MED MINUTES OFFICE 38574 [facility] MCKEMIE OUTPATIEN 8 8 NAHUN JR T VISIT INTERNAL MCKAYLA F 15 MED MINUTES OFFICE 25904 Lauren WAYNE [facility] 8 8 [facility] 15 PSC MINUTES EMERGENCY 48383 AMBERLY MASON, ILIANAT 8 8 [facility] VISIT CORPORATI O HIGH ON SEVERITY& THREAT [facility] - 8 8 [facility] OUTPATIEN INC T EMERGENCY 98324 [facility] 8 8 [facility]IT MODERATE SEVERITY OFFICE 58854 [facility] MCKEMIE OUTPATIEN 8 8 Kate GARNICA JR VISIT INTERNAL MCKAYLA F 15 MED MINUTES HOSPITAL [facility] - 8 8 [facility] OUTPATIEN INC T OFFICE 46809 [place] MCKEMIE OUTPATIEN 8 8 NAHUN RAI T VISIT INTERNAL MCKAYLA F 15 MED MINUTES HOSPITAL [facility] - 8 8 [facility] OUTPATIEN INC T OFFICE 28208 [place] MCKEMIE OUTPATIEN 8 8 VALLEY JR, T VISIT INTERNAL MCKAYLA F 15 MED MINUTES OFFICE 21644 Lauren WAYNE CONSULTAT 8 8 [facility] ION CLINIC NEW/ESTAB PSC PATIENT 60 MIN OFFICE 39609 NEW BEN OUTPATIEN 8 8 MALVERN III, T VISIT CLINIC RADHA L 10 PSC MINUTES OFFICE 56532 [place] MCKEMIE OUTPATIEN 8 8 [facility] T VISIT INTERNAL MCKAYLA F 15 MED MINUTES HOSP[facility] - 8 8 [facility] OUTPATIEN INC T EMERGENCY 03970 [facility] VALERO 8 8 [facility] T VISIT PROF SERV MODERATE SEVERITY HOSPITAL [facility] - 8 8 [facility] OUTPATIEN INC T EMERGENCY 94022 [facility] 8 8 [facility] T VISIT HIGH/URGE NT SEVERITY OFFICE [address] [facility] BEN OUTPATIEN 8 8 MALVERN III, T NEW 45 CLINIC RADHA L MINUTES PSC EMERGENCY 66523 [facility] DEPT 8 8 [facility] VISIT INC HIGH SEVERITY& THREAT FUNJ HOSPITAL [facility] - 8 8 [facility] OUTPATIEN INC T PERIODIC 26685 [facility] MCKEMIE PREVENTIV 8 8 NAHUN RAI E MED EST INTERNAL MCKAYLA F PATIENT MED 40-64YRS HOSP[facility] - 8 8 [facility] OUTPATIEN INC T OFFICE 95838 ZEE, ZEE, OUTPATIEN 8 8 [facility] VISIT 40 MINUTES HOSPITAL [facility] - 8 8 [facility] OUTPATIEN INC T [facility]OSPITAL [facility] - 8 8 [facility] OUTPATIEN INC T EMERGENCY 16740 [facility] 8 8 [facility] T VISIT HIGH/URGE NT SEVERITY EMERGENCY 59003 [facility] COLMENARES DEPT 8 8 [facility] HIGH PROF SERV SEVERITY& THREAT FUNCJ OFFICE 65004 YAYO ZEE OUTPATIEN 8 8 LISBETH Love VISIT 40 MINUTES OFFICE 89043 GAIL NYE, CONSULTAT 8 8 MEDICAL LAKSHMI KAMARA SERV NEW/ESTAB FOUNDATIO PATIENT 40 MIN OFFICE 34644 MIKE BURGER 8 8 KRISTIAN Love VISIT [facility] 15 MINUTES
--- OUTSIDE RECORDS SUMMARY | 2017-09-05 03:35 | External Medical Summary Rpt ---
Author Author [facility] Dugan, JOSE LHEYDI Production Organization [facility] [employer] Address Unknown Phone Unavailable Results Drugs identified in Urine by Screen method Observa Value Referen Units Interpr Notes Date tion ce etation Range Positive urine drug screen samples are stored for 7 days. Contact the Lab if confirmation of positives is needed. Ampheta NEGATIV <1000 ng/mL No No Oct 2 mine E informa informa 2017 [Presen tion in tion in 10:15 ce] in source source AM Urine data data by Screen method Barbitura <200 ng/mL No No Oct 2 dez informati informati 2017 [Mass/vol on in on in 10:15 AM ume] in source source Urine by data data Screen method Benzodiaz 200 ng/mL ng/mL No No Oct 2 epines informati informati 2017 [Mass/vol on in on in 10:15 AM ume] in source source Serum or data data Plasma by Screen method Cocaine <300 ng/g No No Oct 2 [Mass/vol informati informati 2017 ume] in on in on in 10:15 AM Unspecifi source source ed data data specimen Methadone <300 ng/mL No No Oct 2 informati informati 2017 [Mass/vol on in on in 10:15 AM ume] in source source Unspecifi data data ed specimen Opiates <300 ng/mL No No Oct 2 [Mass/vol informati informati 2017 ume] in on in on in 10:15 AM Unspecifi source source ed data data specimen Phencycli <25 ng/mL No No Oct 2 dine informati informati 2017 [Mass/vol on in on in 10:15 AM ume] in source source Unspecifi data data ed specimen 11-Hydr NEGATIV <50 ng/mL No No Oct 2 oxy E informa informa 2017 delta-9 tion in tion in 10:15 source source AM tetrahy data data drocann abinol [Presen ce] in Unspeci fied specime n Drugs identified in Urine by Screen method Observa Value Referen Units Interpr Notes Date tion ce etation Range Positive urine drug screen samples are stored for 7 days. Contact the Lab if confirmation of positives is needed. Ampheta NEGATIV <1000 ng/mL No No Sep 10 mine E informa informa 2017 [Presen tion in tion in 3:30 PM ce] in source source Urine data data by Screen method Barbitura <200 ng/mL No No Sep 10 dez informati informati 2017 3:30 [Mass/vol on in on in PM ume] in source source Urine by data data Screen method Benzodiaz 200 ng/mL ng/mL No No Sep 10 epines informati informati 2017 3:30 [Mass/vol on in on in PM ume] in source source Serum or data data Plasma by Screen method Cocaine <300 ng/g No No Sep 10 [Mass/vol informati informati 2017 3:30 ume] in on in on in PM Unspecifi source source ed data data specimen Methadone <300 ng/mL No No Sep 10 informati informati 2017 3:30 [Mass/vol on in on in PM ume] in source source Unspecifi data data ed specimen Opiates <300 ng/mL High This is Sep 10 [Mass/vol an 2017 3:30 ume] in UNCONFIRM PM Unspecifi ED ed result. specimen This result is for medicalpu rposes and/or treatment only. Phencycli <25 ng/mL No No Sep 10 dine informati informati 2017 3:30 [Mass/vol on in on in PM ume] in source source Unspecifi data data ed specimen 11-Hydr NEGATIV <50 ng/mL No No Sep 10 oxy E informa informa 2017 delta-9 tion in tion in 3:30 PM source source tetrahy data data drocann abinol [Presen ce] in Unspeci fied specime n Natriutietic peptide B [Mass/volume] in Serum or Plasma Observa Value Referen Units Interpr Notes Date tion ce etation Range Natriutie 0 - 100 pg/mL Normal No Sep 10 tic informati 2017 3:17 peptide B on in PM source [Mass/vol data ume] in Serum or Plasma Fibrin D-dimer FEU [Mass/volume] in Platelet poor plasma Observa Value Referen Units Interpr Notes Date tion ce etation Range Fibrin 0 - 400 ng/mL High Sep 10 D-dimer alert NOTIFICAT 2017 3:17 FEU ION PM [Mass/vol RESULT ume] in The Platelet D-Dimer poor values plasma are presented in units of mass(ng/m L) ofD-Dimer units(DDU ).This test has been FDA approved as an aid in the assessmen tand evaluatio n of suspected DIC, and thromboem bolic eventsinc luding PE and DVT. However, it does not have approvalf or cut-off values for the exclusion of these condition s. CBC W Auto Differential panel in Blood Observa Value Referen Units Interpr Notes Date tion ce etation Range Basophils 0 - 0.2 K/MM3 Normal No Sep 10 informati 2016 3:17 [#/volume on in PM ] in source Blood by data Automated count Basophils 0.1 - 2.0 % Normal No Sep 10 /100 informati 2016 3:17 leukocyte on in PM s in source Blood by data Automated count Eosinophi 0.0 - 0.4 K/mm3 Normal No Sep 10 ls informati 2016 3:17 [#/volume on in PM ] in source Blood by data Automated count Eosinophi 0.1 - % Normal No Sep 10 ls/100 12.0 informati 2016 3:17 leukocyte on in PM s in source Blood by data Automated count Granulocy 1.3 - 8.0 K/mm3 Normal No Sep 10 dez informati 2016 3:17 [#/volume on in PM ] in source Blood by data Automated count Granulocy 37.0 - % Normal No Sep 10 dez/100 80.0 informati 2016 3:17 leukocyte on in PM s in source Blood by data Automated count Hematocri 42.0 - % Low No Sep 10 t [Volume 52.0 informati 2016 3:17 on in PM Fraction] source of Blood data Hemoglobi 14.1 - g/dL Low No Sep 10 n 18.0 informati 2016 3:17 [Mass/vol on in PM ume] in source Blood data Lymphocyt 0.7 - 4.5 K/mm3 Normal No Sep 10 es informati 2016 3:17 [#/volume on in PM ] in source Unspecifi data ed specimen by Automated count Lymphocyt 10 - 50 % Normal No Sep 10 es informati 2016 3:17 [#/volume on in PM ] in source Unspecifi data ed specimen by Automated count Erythrocy 27 - 31.2 pg Normal No Sep 10 te mean inform2016 3:17 corpuscul on in PM ar source hemoglobi data n [Entitic mass] Erythrocy 31.8 - g/dl Normal No Sep 10 te mean 35.4 inform2016 3:17 corpuscul on in PM ar source hemoglobi data n concentra tion [Mass/vol ume] by Automated count Erythrocy 82.2 - fl Normal No Sep 10 te mean 97.8 inform2016 3:17 corpuscul on in PM ar volume source [Entitic data volume] by Automated count Monocytes 0.1 - 1.0 K/mm3 Normal No Sep 10 inform2016 3:17 [#/volume on in PM ] in source Blood by data Automated count Monocytes 1.7 - 9.3 % Normal No Sep 10 /100 inform2016 3:17 leukocyte on in PM s in source Blood by data Automated count Platelet 7.4 - fl Low No Sep 10 mean 10.4 informati 2016 3:17 volume on in PM [Entitic source volume] data in Blood by Automated count Platelets 142 - 424 K/mm3 Normal No Sep 10 2016 3:17 [#/volume on in PM ] in source Blood data Erythrocy 4.6 - 6.2 M/mm3 Low No Sep 10 dez inform2016 3:17 [#/volume on in PM ] in source Amniotic data fluid Erythrocy 11.5 - % Normal No Sep 10 te 17.5 informati 2016 3:17 distribut on in PM ion width source [Entitic data volume] by Automated count Leukocyte 4.8 - K/MM3 Normal No Sep 10 s 10.8 informati 2016 3:17 [#/volume on in PM ] in source Blood data Urea nitrogen [Mass/volume] in Serum or Plasma Observa Value Referen Units Interpr Notes Date tion ce etation Range Urea 7 - 18 mg/dL Normal No Jul 22 nitrogen inform2016 [Mass/vol on in 12:58 PM ume] in source Serum or data Plasma CREATININE Observa Value Referen Units Interpr Notes Date tion ce etation Range Creatinin 0.70 - mg/dL Normal No Jul 22 e 1.30 inform2016 [Mass/vol on in 12:58 PM ume] in source Serum or data Plasma Estimated >60 ML/MIN No REFERENCE Jul 22 informati RANGE: 2017 glomerula on in >60 12:58 PM r source ML/MIN/1. filtratio data 73 SQUARE n rate METERSIf (GF this patient is -A merican, then multiply theresult by 1.210. Benzodiazepines Confirm, Urine Observa Value Referen Units Interpr Notes Date tion ce etation Range Benzodi Positiv Cutoff= ng/mL Abnorma No Jun 15 azepine e 100 l informa 2017 s tion in 2:55 PM [Presen source ce] in data Urine Alprazo Negativ Cutoff= No No No Jun 15 vargas e 100 informa informa informa 2017 [Presen tion in tion in tion in 2:55 PM ce] in source source source Urine data data data Clonaze Positiv . No Abnorma No Jun 15 frances e informa l informa 2016 [Presen tion in tion in 2:55 PM ce] in source source Urine data data Clonazepa Cutoff=10 ng/mL No Clonazepa Jun 15 m 0 informati m 2017 2:55 [Mass/vol on in detected; PM ume] in source this Urine by data finding Confirm is method consisten t with use ofmedicat ions that include Klonopin, Rivotril, or generic formulati ons.Drugs listed are represent ative of common sources of the compoundd etected and are not intended to include all possible sources. Temazep Negativ Cutoff= No No No Jun 15 am e 100 informa informa informa 2017 [Presen tion in tion in tion in 2:55 PM ce] in source source source Urine data data data by Confirm method Triazol Negativ Cutoff= No No No Jun 15 am e 100 informa informa informa 2017 [Presen tion in tion in tion in 2:55 PM ce] in source source source Urine data data data Midazol Negativ Cutoff= No No No Jun 15 am e 100 informa informa informa 2017 [Presen tion in tion in tion in 2:55 PM ce] in source source source Urine data data data by Confirm method Nordiaz Negativ Cutoff= No No No Jun 15 epam e 100 informa informa informa 2017 [Presen tion in tion in tion in 2:55 PM ce] in source source source Urine data data data Please Comment . No No Drug-te Jun 15 Note: informa informa st 2017 tion in tion in results 2:55 PM source source should data data be interpr eted in the context of clinica linform ation. Patient metabol ic variabl es, specifi c drug biochemistry technician ry, andspec imen charact eristic s can affect test outcome . Technic sulaimanaamiru ltation is availab le if a test result is inconsi stent with anexpec vandana outcome . (email- lindsay andrews @[employer] or call [employer] [phone] )Drug brands, if listed herein, are tradema rks of their respect efe rs.Perf ormed at: [facility] [id number] [place], [place] [id number] Directo r: Tha Landeros MD, Phone: [phone] Oxazepa Negativ Cutoff= No No No Jun 15 m e 100 informa informa informa 2016 [Presen tion in tion in tion in 2:55 PM ce] in source source source Urine data data data Fluraze Negativ Cutoff= No No No Jun 15 frances e 100 informa informa informa 2016 [Presen tion in tion in tion in 2:55 PM ce] in source source source Urine data data data Lorazep Negativ Cutoff= No No No Jun 15 am e 100 informa informa informa 2016 [Presen tion in tion in tion in 2:55 PM ce] in source source source Urine data data data Drugs identified in Urine by Screen method Observa Value Referen Units Interpr Notes Date tion ce etation Range Positive urine drug screen samples are stored for 7 days. Contact the Lab if confirmation of positives is needed. Ampheta NEGATIV <1000 ng/mL No No Jun 15 mine E informa informa 2016 [Presen tion in tion in 2:55 PM ce] in source source Urine data data by Screen method Barbitura <200 ng/mL No No Jun 15 dez informati informati 2016 2:55 [Mass/vol on in on in PM ume] in source source Urine by data data Screen method Benzodiaz 200 ng/mL ng/mL No No Jun 15 epines informati informati 2016 2:55 [Mass/vol on in on in PM ume] in source source Serum or data data Plasma by Screen method Cocaine <300 ng/g No No Jun 15 [Mass/vol informati informati 2017 2:55 ume] in on in on in PM Unspecifi source source ed data data specimen Methadone <300 ng/mL No No Jun 15 informati informati 2016 2:55 [Mass/vol on in on in PM ume] in source source Unspecifi data data ed specimen Opiates <300 ng/mL High This is Jun 15 [Mass/vol an 2017 2:55 ume] in UNCONFIRM PM Unspecifi ED ed result. specimen This result is for medicalpu rposes and/or treatment only. Phencycli <25 ng/mL No No Jun 15 dine informati informati 2016 2:55 [Mass/vol on in on in PM ume] in source source Unspecifi data data ed specimen 11-Hydr NEGATIV <50 ng/mL No No Jun 15 oxy E informa informa 2017 delta-9 tion in tion in 2:55 PM source source tetrahy data data drocann abinol [Presen ce] in Unspeci fied specime n Activated clotting time in Blood by Coagulation assay Observa Value Referen Units Interpr Notes Date tion ce etation Range Activated 74 - 125 SEC High No May 26 clotting alert informati 2017 9:21 time in on in AM Blood by source Coagulati data on assay Basic metabolic panel in Blood Observa Value Referen Units Interpr Notes Date tion ce etation Range Urea 7 - 18 mg/dL High No May 26 nitrogen informati 2017 7:10 [Mass/vol on in AM ume] in source Serum or data Plasma Calcium 8.5 - mg/dL Normal No May 26 [Mass/vol 10.1 informati 2017 7:10 ume] in on in AM Serum or source Plasma data Chloride 98 - 107 mmoL/L Normal No May 26 [Moles/vo informati 2017 7:10 lume] in on in AM Serum or source Plasma data Carbon 21.0 - mmoL/L Normal No May 26 dioxide, 32.0 informati 2017 7:10 total on in AM [Moles/vo source lume] in data Serum or Plasma Creatinin 0.70 - mg/dL Normal No May 26 e 1.30 informati 2016 7:10 [Mass/vol on in AM ume] in source Serum or data Plasma Estimated >60 ML/MIN No REFERENCE May 26 informati RANGE: 2017 7:10 glomerula on in >60 AM r source ML/MIN/1. filtratio data 73 SQUARE n rate METERSIf (GF this patient is -A merican, then multiply theresult by 1.210. Glucose 74 - 106 mg/dL High No May 26 [Mass/vol informati 2016 7:10 ume] in on in AM Serum or source Plasma data Potassium 3.5 - 5.1 mmoL/L Normal No May 26 informati 2016 7:10 [Moles/vo on in AM lume] in source Serum or data Plasma Sodium 136 - 145 mmoL/L Normal No May 26 [Moles/vo informati 2016 7:10 lume] in on in AM Serum or source Plasma data CBC W Auto Differential panel in Blood Observa Value Referen Units Interpr Notes Date tion ce etation Range Basophils 0 - 0.2 K/MM3 Normal No May 26 informati 2016 7:10 [#/volume on in AM ] in source Blood by data Automated count Basophils 0.1 - 2.0 % Normal No May 26 / informati 2017 7:10 leukocyte on in AM s in source Blood by data Automated count Eosinophi 0.0 - 0.4 K/mm3 Normal No May 26 ls informati 2016 7:10 [#/volume on in AM ] in source Blood by data Automated count Eosinophi 0.1 - % Normal No May 26 ls/100 12.0 informati 2016 7:10 leukocyte on in AM s in source Blood by data Automated count Granulocy 1.3 - 8.0 K/mm3 Normal No May 26 dez informati 2016 7:10 [#/volume on in AM ] in source Blood by data Automated count Granulocy 37.0 - % Normal No May 26 dez/100 80.0 informati 2016 7:10 leukocyte on in AM s in source Blood by data Automated count Hematocri 42.0 - % Low No May 26 t [Volume 52.0 informati 2016 7:10 on in AM Fraction] source of Blood data Hemoglobi 14.1 - g/dL Low No Ronni 29 n 18.0 informati 2017 7:10 [Mass/vol on in AM ume] in source Blood data Lymphocyt 0.7 - 4.5 K/mm3 Normal No May 26 es informati 2017 7:10 [#/volume on in AM ] in source Unspecifi data ed specimen by Automated count Lymphocyt 10 - 50 % Normal No May 26 es informati 2016 7:10 [#/volume on in AM ] in source Unspecifi data ed specimen by Automated count Erythrocy 27 - 31.2 pg Normal No May 26 te mean informati 2016 7:10 corpuscul on in AM ar source hemoglobi data n [Entitic mass] Erythrocy 31.8 - g/dl Normal No May 26 te mean 35.4 informati 2017 7:10 corpuscul on in AM ar source hemoglobi data n concentra tion [Mass/vol ume] by Automated count Erythrocy 82.2 - fl Normal No May 26 te mean 97.8 informati 2017 7:10 corpuscul on in AM ar volume source [Entitic data volume] by Automated count Monocytes 0.1 - 1.0 K/mm3 Normal No May 26 informati 2017 7:10 [#/volume on in AM ] in source Blood by data Automated count Monocytes 1.7 - 9.3 % Normal No May 26 /100 informati 2017 7:10 leukocyte on in AM s in source Blood by data Automated count Platelet 7.4 - fl Normal No May 26 mean 10.4 informati 2017 7:10 volume on in AM [Entitic source volume] data in Blood by Automated count Platelets 142 - 424 K/mm3 Normal No May 26 informati 2017 7:10 [#/volume on in AM ] in source Blood data Erythrocy 4.6 - 6.2 M/mm3 Low No May 26 dez informati 2017 7:10 [#/volume on in AM ] in source Amniotic data fluid Erythrocy 11.5 - % Normal No May 26 te 17.5 informati 2017 7:10 distribut on in AM ion width source [Entitic data volume] by Automated count Leukocyte 4.8 - K/MM3 Normal No May 26 s 10.8 informati 2017 7:10 [#/volume on in AM ] in source Blood data
--- OUTSIDE RECORDS SUMMARY | 2017-09-05 03:35 | External Medical Summary Rpt ---
Author Author , DANTE HOFF Address Unknown Phone [email or web address] Immunization Name Date Rout CVX Reac Dose Comm Prov Is Faci e tion ent ider Refu lity Give sed n Infl 10-0 Intr 0.5 Hist GSHA No GSHA uenz 2-20 amus mL oric NE NE a 17 cula al Quad r Info rmat W/Pr ion es - Sour ce Unsp ecif ied
--- OUTSIDE RECORDS SUMMARY | 2017-09-05 03:35 | External Medical Summary Rpt ---
Author Author , DANTE HOFF Address Unknown Phone [email or web address] Immunization Name Date Rout CVX Reac Dose Comm Prov Is Faci e tion ent ider Refu lity Give sed n Infl 10-0 Intr 0.5 Hist GSHA No GSHA uenz 2-20 amus mL oric NE NE a 17 cula al Quad r Info rmat W/Pr ion es - Sour ce Unsp ecif ied
--- OUTSIDE RECORDS SUMMARY | 2017-09-05 03:35 | External Medical Summary Rpt ---
[...] metabol ic variabl es, specifi c drug chemistry faculty member ry, andspec imen charact eristic s can affect test outcome . Technic sulaimanaamiru ltation is availab le if a test result is inconsi stent with anexpec vandana outcome . (email- lindsay andrwes [email or web address] or call [employer] [phone] )Drug brands, if listed herein, are tradema rks of their respect efe rs.Perf ormed at: [facility] [id number] [place], [place] [id number] Directo r: Tha Landeros MD, Phone: [phone] Oxazepa Negativ Cutoff= No No No Jun [...]
--- OUTSIDE RECORDS SUMMARY | 2017-09-05 04:02 | External Medical Summary Rpt ---
Author Author , LUIS EDUARDO HOFF Address Unknown Phone [email or web address] Care Team Providers Care Machine Load Clerk Name Role Phone [facility], [facility] Unavailable Unavailable [...] Unavailable DANIEL, ALEXIS, Unavailable Unavailable DANIEL, ALEXIS [facility] Unavailable Unavailable SERVICE, [facility] Unavailable Unavailable SERVICE, [facility] Unavailable Unavailable SERVICE, [facility] BANDAR TEREZA, BANDAR Unavailable Unavailable [...] Unavailable [facility] Unavailable [place]available [place], [facility] [place] [facility] Un[facility] [place] [facility] EDGE DONNIE, EDGE [...] CHARLEY BARAHONA MICHELLE, BARAHONA MICHELLE Unavailable Unavailable [facility] Unavailable Un[facility], [facility] Unavailable Unavailable Hospital, [facility] Unavailable Unavailable [facility]PITAL P, [facility] ELIAS, ELIAS SHEFF[place], Unavailable Unavailable [facility] MIDDLETON ALEM, MIDDLETON ALEM Unavailable Unavailable MIDDLETON ALEM, MIDDLETON ALEM Unavailable Unavailable MIDDLETON, MICHAEL A, Unavailable Unavailable MIDDLETON, MICHAEL A [facility], Unavailable Unavailable [facility] WHITESIDE NISREEN, WHITESIDE NISREEN Unavailable Unavailable KATYA MITCHELL, KATYA Unavailable Unavailable MITCHELL JAMA NAN, JAMA Unavailable Unavailable NAN JAMA NAN, JAMA Unavailable Unavailable NAN [facility] Unavailable Unavailable MEDICAL G, [facility]available Unavailable [facility], [facility] [place] [facility] Unavailable Unavailable NANALBA E, Unavailable Unavailable AL[facility] [place] [facility] Unavailable Unavailable LABORATORY, [facility] [place] Unavailable Unavailable [facility], [facility] Unavailable Unavailable [facility], [facility] FREDY NICHOLSON MD Unavailable Unavailable BUX MD MAJORS G, MAJORS G Unavailable Unavailable VITA HAM, VITA HAM Unavailable Unavailable VITA HAM, VITA HAM Unavailable Unavailable [facility] Unavailable Unavailable SERVICES, [facility] ROMERO JAM, Unavailable Unavailable ROMEROBARBARA ROMERO JAM, Unavailable Unavailable ROMERO JAM MCKEMIE JR AREN, Unavailable Unavailable MCKEMIE JR AREN MCKEMIE JR AREN, Unavailable Unavailable MCKEMIE JR AREN MCANNMARIEE , MCKAYLA Unavailable Unavailable F, NATHALY JR, MCKAYLA F MINEER EDELMIRA, MINEER Unavailable Unavailable EDELMIRA LUDY, CHAD P, Unavailable Unavailable LUDY CHAD P MOHAMMADZADEH, Unavailable Unavailable MOHAMMADZADEH MOHAMMADZADEH HAM, Unavailable Unavailable MOHAMMADZADEH HAM [facility] Unavailable Unavailable [facility], [facility] O'JENNIFER LISA, O'JENNIFER Unavailable Unavailable LISBETH [...] CAMILLA Unavailable Unavailable RUBI, TAMIR, Unavailable Unavailable TAMIR VENEGAS, Unavailable Unavailable MCCORMACK BERNARDO SADEK MOH, SADEK MOH Unavailable Unavailable SARAFF, AMADOR Y, Unavailable Unavailable SARAFF, AMADOR Y SCHEANJU MARCOS, Unavailable Unavailable SCHEURICH, MARCOS SCHULSTAD DONAVAN, Unavailable Unavailable SCHULSTAD DONAVAN SCIFRES ANG, SCIFRES Unavailable Unavailable ANG SCIFRES ANG, SCIFRES Unavailable Unavailable ANG SETTEMBRE, SETTEMBRE Unavailable Unavailable SHASHY JAROD, SHASHY Unavailable Unavailable JAROD DOMINGO, CHAYO Unavailable Unavailable CHAYO MAT, Unavailable Unavailable CHAYO MAT SMALL, LISBETH T, SMALL, Unavailable Unavailable LISBETH T SOKAN BAB, SOKAN BAB Unavailable Unavailable SOKAN, MADISON O, Unavailable Unavailable SOKAN, MADISON O SOTINGEANU, Unavailable Unavailable SOTINGEANU SOTINGEANU DAREN, Unavailable Unavailable SOTINGEANU DAREN CHUY LOLY, CHUY Unavailable Unavailable [facility], Unavailable Unavailable LALO VERA PHI, POPEYE PHI Unavailable Unavailable LAKSHMI NYE A, Unavailable Unavailable LAKSHMI NYE MITCH MAT, MITCH MAT Unavailable Unavailable [facility], Unavailable Unavailable [facility] MORRISON W, MORRISON W Unavailable Unavailable MORRISON JR AREN, MORRISON Unavailable Unavailable JR AREN MORRISON, W, MORRISON, W Unavailable Unavailable WEHRMAN III AREN, Unavailable Unavailable WEHRMAN III AREN WEHRMAN III ARNE, Unavailable Unavailable WEHRMAN III AREN WEHRMAN III, MCKAYLA, Unavailable Unavailable WEHRMAN III, MCKAYLA WEST DONNIE, WEST DONNIE Unavailable Unavailable WEST, LISBETH W, WEST, Unavailable Unavailable VENITA EPPERSON Unavailable Unavailable KRISTIAN TOWNSEND Unavailable Unavailable Brigdia TOWNSEND WRIGHT, Unavailable Unavailable Brigida C Purpose Continuity of Care Document - 12-04-2007 through 2016 Problems Code Diagnosis DOS Provider Status 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 [id number] SPONDYLOSIS 07-05-2017 [place] W/[place] TOWNSEND MYELOPATH/R ,[facility] ADICULOPATH Y CERV RGN C78424 SPONDYLOSIS 07-05-2017 [place] W/[place] TOWNSEND MYELOPATH/R ,[facility] ADICULOPATH Y LUMB RGN Z32143 SCOW CAPTAIN 07-05-2017 [place] CURRENT USE WHIT TOWNSEND OPIATE ,[facility] ANALGESIC W34227 OTHER LONG 06-15-2017 [facility] TERM [facility] CURRENT INC DRUG THERAPY E119 TYPE 2 06-02-2017 [facility] DIABETES PHYSICIANS MELLITUS GROUP WITHOUT COMPLICATIO NS E785 HYPERLIPIDE 06-02-2017 [facility] LESTER PHYSICIANS UNSPECIFIED GROUP I119 HYPERTENSIV 06-02-2017 [facility] E HEART PHYSICIANS DISEASE GROUP WITHOUT HEART FAILURE 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 I712 THORACIC 06-02-2017 [facility] AORTIC PHYSICIANS ANEURYSM GROUP WITHOUT RUPTURE I714 ABDOMINAL 06-02-2017 [facility] AORTIC PHYSICIANS ANEURYSM GROUP WITHOUT RUPTURE R079 CHEST PAIN 06-02-2017 [facility] UNSPECIFIED PHYSICIANS GROUP R9439 ABNORMAL 05-26-2017 [facility] RESULT OTH PHYSICIANS CARDIOVASCU GROUP LR FUNCTION STUDY C79092 ENCOUNTER 05-26-2017 [facility] FOR PHYSICIANS PREPROCEDUR GROUP AL CARIOVASCUL AR EXAM I10 ESSENTIAL 05-13-2017 [facility] PRIMARY PHYSICIANS HYPERTENSIO GROUP N R9431 ABNORMAL 05-13-2017 [facility] ELECTROCARD PHYSICIANS IOGRAM GROUP G92827 ENCOUNTER 05-13-2017 [facility] FOR OTHER [facility] PREPROCEDUR INC AL EXAMINATION R1011 RIGHT UPPER 05-03-2017 [facility] R935 ABN FIND DX 05-03-2017 [facility] IMAG OTH [facility] ABD REGIONS INC RETROPERITO NEUM D369 BENIGN 04-19-2017 [facility] NEOPLASM PHYSICIANS UNSPECIFIED GROUP SITE D37668 PERSONAL 04-19-2017 [facility] HISTORY OF PHYSICIANS COLONIC GROUP POLYPS K210 GASTRO-ESOP 04-09-2017 [facility] JENSEN PHYSICIANS, REFLUX PLLC DISEASE W/ ESOPHAGITIS K828 OTHER 04-09-2017 [facility] ORNELAS PHYSICIANS, DISEASES OF PLLC GALLBLADDER K829 DISEASE OF 04-09-2017 [facility] UNSPECIFIED R109 UNSPECIFIED 04-09-2017 [facility] ABDOMINAL [facility]ICAL PAIN IMAGING ASS Z11775 PERSONAL 04-09-2017 [facility] HISTORY OF [facility] P DEPENDENCE N411 CHRONIC 04-05-2017 [facility] PROSTATITIS [facility] P N529 MALE 04-05-2017 [facility] P UNSPECIFIED K219 GASTRO-ESOP 04-02-2017 [facility]UX [facility] DISEASE INC WITHOUT ESOPHAGITIS M5116 INTERVERTEB 04-02-2017 [facility] GLORIA PHYSICIANS, D/O PLLC W/RADICULOP ATHY LUMB RGN R1031 RIGHT LOWER 04-02-2017 [facility] M5382 OTHER 03-23-2017 [place] SPECIFIED CHIROPRACTI DORSOPATHIE C CENTE S CERVICAL REGION M5386 OTHER 03-23-2017 [place] SPECIFIED CHIROPRACTI DORSOPATHIE C CENTE S LUMBAR REGION I98090 OTHER 03-04-2017 [place] CERVICAL JUANI TOWNSEND MD,PSC MID-CERV REG UNS LEVEL K5900 CONSTIPATIO 02-13-2017 [facility] N MEDICAL UNSPECIFIED IMAGING ASS R112 NAUSEA WITH 02-13-2017 [facility] VOMITING MEDICAL UNSPECIFIED IMAGING ASS J449 CHRONIC 01-13-2017 [facility] P DISEASE UNS R0600 DYSPNEA 01-13-2017 [facility] UNSPECIFIED [facility]ICAL IMAGING ASS E039 HYPOTHYROID 11-11-2016 [facility] ISM [facility] UNSPECIFIED INC N401 BENIGN 10-26-2016 [facility] P LW URINARY TRACT SX R350 FREQUENCY 10-26-2016 [facility] T43555 UNSPECIFIED 10-11-2016 [facility] ALEM BLEPHARITIS LEFT LOWER EYELID J9811 ATELECTASIS 09-01-2016 [facility] R1013 EPIGASTRIC 09-01-2016 [facility] PAIN [facility] P R7989 OTHER SPEC 09-01-2016 [facility] ABNORMAL MEDICAL FINDINGS IMAGING ASS BLOOD CHEMISTRY M791 MYALGIA 08-25-2016 [place] TOWNSEND MD,PSC M5090 CERVICAL 08-16-2016 [facility] DISC [facility] DISORDER INC UNS UNS CERVICAL REGION G51127 PAIN IN 08-10-2016 [facility] RIGHT MEDICAL SHOULDER IMAGING ASS M5032 OTH CERV 08-10-2016 [facility] DISC MEDICAL DEGENERATIO IMAGING ASS N MID-CERVICA L REGION M542 CERVICALGIA 08-10-2016 [facility] R51 HEADACHE 08-10-2016 [facility] R0291ZL CONTUSION 08-10-2016 [facility] UNS PART PHYSICIANS, HEAD PLLC INITIAL ENCOUNTER X1054OZ UNSPECIFIED 08-10-2016 [facility] INJURY OF MEDICAL HEAD IMAGING ASS INITIAL ENCOUNTER E256QVU STRAIN 08-10-2016 [facility] MUSCLE FASC PHYSICIANS, & TENDON PLLC NECK LEVL INIT ENC P197RTF UNSPECIFIED 08-10-2016 [facility] INJURY OF MEDICAL NECK IMAGING ASS INITIAL ENCOUNTER B54836N UNSPECIFIED 08-10-2016 [facility] SPRAIN RT PHYSICIANS, SHOULDER PLLC JOINT INITIAL ENC E8396PD UNS INJURY 08-10-2016 [facility] RT SHOULDER MEDICAL UPPER ARM IMAGING ASS INITIAL ENCNTR D126 BENIGN 07-29-2016 [facility] COLON UNSPECIFIED K635 POLYP OF 07-29-2016 [facility] COLON PHYSICIANS GROUP Z09 ENC F/U 07-29-2016 COMMUNITY EXAM AFTR ANESTH OF CMPL TX OTH THE BLUE THAN MALIG NEOPLSM Z1211 ENCOUNTER 07-29-2016 [facility] SCREENING PHYSICIANS MALIGNANT GROUP NEOPLASM OF COLON M4642 DISCITIS 05-14-2016 [facility] UNSPECIFIED PHYSICIANS CERVICAL GROUP REGION G8929 OTHER 04-23-2016 [facility] CHRONIC PHYSICIANS PAIN GROUP J40 BRONCHITIS 04-07-2016 [facility] NOT PHYSICIANS SPECIFIED GROUP ACUTE OR CHRONIC M5010 CERVICAL 03-29-2016 BOYD DEAN, DISC D/O , PSC W/RADICULOP ATHY UNS CERV RGN B351 TINEA 03-25-2016 PRO[facility] UNGUIUM PODIATRY E1151 TYPE 2 DM 03-25-2016 [facility] W/DIAB PODIATRY PERIPH ANGIOPATHY W/O GANGRENE M2570 OSTEOPHYTE 03-25-2016 [facility] UNSPECIFIED PODIATRY JOINT C85139 PAIN IN 03-25-2016 [facility] LEFT TOES PODIATRY J0110 ACUTE 03-24-2016 [facility] FRONTAL PHYSICIANS SINUSITIS GROUP UNSPECIFIED J97184N UNS OPEN 03-24-2016 [facility] WOUND UNS PHYSICIANS TOES GROUP W/DAMAGE NAIL INITIAL M5030 OT 02-23-2016 [facility] CERVICAL [facility] DISC INC DEGENERATIO N UNS CERV REGION M5412 RADICULOPAT 02-23-2016 BOYD DEAN, HY CERVICAL , PSC REGION R200 ANESTHESIA 01-23-2016 [facility] OF SKIN MEDICAL IMAGING ASS Z8603 PERSONAL 01-23-2016 [facility] HISTORY MEDICAL NEOPLASM OF IMAGING ASS UNCERTAIN BEHAVIOR 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 C01730 UNSPECIFIED 01-14-2016 MD MEDICAL PTOSIS OF SERV RIGHT FOUNDATION EYELID H9191 UNSPECIFIED 01-14-2016 MD MEDICAL HEARING SERV LOSS RIGHT FOUNDATION EAR C73289 FACIAL 01-14-2016 [facility] MEDICAL WEAKNESS SERV FOUNDATION R9089 OT 01-14-2016 MD MEDICAL ABNORMAL SERV FIND ON DX FOUNDATION IMAGING CNTRL NERV SYS P23522 PERSONAL 01-14-2016 MD MEDICAL HISTORY 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 UNSPECIFIED K97043 CONTACT 12-26-2015 [facility] ANG BLEPHAROCON JUNCTIVITIS RIGHT EYE M5136 OT 12-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 BURT MD, PSC RAL DISC DEGEN LUMBAR REGION R110 NAUSEA 12-03-2015 [facility] R140 ABDOMINAL 11-26-2015 [facility] DISTENSION MEDICAL GASEOUS IMAGING ASS B370 CANDIDAL 11-20-2015 [facility] STOMATITIS PHYSICIANS, [facility] E1121 TYPE 2 11-20-2015 [facility] DIABETES [facility] MELLITUS INC W/DIABETIC NEPHROPATHY J329 CHRONIC 11-13-2015 [facility] SINUSITIS PHYSICIANS UNSPECIFIED GROUP H5203 HYPERMETROP 09-08-2015 [facility] ALEM IA BILATERAL M797 FIBROMYALGI 08-29-2015 [facility] A [facility] INC 44496 DEGEN 07-28-2015 BOYD DEAN, LUMBAR/LUMB , PSC OSACRAL INTERVERTEB RAL DISC 7244 THORACIC/GINO 07-28-2015 BO[facility] DEAN MBSUNCRMARLON DOSS, PSC NEURITIS/RA DICULITIS UNSPEC 7291 UNSPECIFIED 07-28-2015 BOYD DEAN MYALGIA , PSC AND MYOSITIS V7109 OBSERVATION 07-23-2015 COMPREHEND OF OTHER INC SUSPECTED MENTAL CONDITION 09846 UNSPECIFIED 06-20-2015 [facility] ARTHROPATHY INC OTHER SPECIFIED SITES 6011 CHRONIC 06-03-2015 [facility] PROSTATITIS [facility] P 95230 DEGEN 05-06-2015 [facility] THORACIC/TH MEDICAL ORACOLUMBAR IMAGING ASS INTERVERTEB RAL DISC 7231 CERVICALGIA 05-06-2015 [facility] 7245 UNSPECIFIED 05-06-2015 [facility] BACKACHE MEDICAL IM[facility]ING ASS 7840 HEADACHE 05-06-2015 [facility] 8470 NECK SPRAIN 05-06-2015 [facility] AND STRAIN PHYSICIANS, PLLC 08037 HEAD 05-06-2015 [facility] INJURY, PHYSICIANS, UNSPECIFIED PLLC 26096 HYPERTROPHY 04-29-2015 [facility] W/UR OBST & [facility]OSPITAL P OTH LUTS 97459 URINARY 04-29-2015 [facility] P 7224 DEGENERATIO 04-28-2015 MADISI BUX N OF CERVICAL INTERVERTEB RAL DISC 7234 BRACHIAL 04-28-2015 FREDY DEAN NEURITIS [place] RADICULITIS NOS 46285 DIAB W/O 03-04-2015 [facility] COMP TYPE LAR II/UNS NOT CONSULTANTS STATED O UNCNTRL 2724 OTHER AND 03-04-2015 [facility] UNSPECIFIED [facility] INC HYPERLIPIDE LESTER 4019 UNSPECIFIED 03-04-2015 [facility] ESSENTIAL [facility] HYPERTENSIO INC N 78261 UNSPEC HTN 03-04-2015 [facility] HEART LAR DISEASE CONSULTANTS WITHOUT O HEART FAIL 31505 COR 03-04-2015 [facility] ATHEROSLERO [facility] UNSPEC INC TYPE VESSEL [place] T 15750 OTHER 02-26-2015 [facility] DYSPNEA AND MEDICAL [place]AG[place] [address] CHEST PAIN 02-26-2015 [place] [facility] UNSPECIFIED SERV FOUNDATION 30459 OTHER CHEST 02-26-2015 [facility] PAIN PHYSICIANS GROUP 2449 UNSPECIFIED 01-09-2015 [facility] PHYSICIANS HYPOTHYROID GROUP ISM 10941 DISPLCMT 01-09-2015 [facility] LUMBAR PHYSICIANS INTERVERT GROUP DISC W/O MYELOPATHY 96624 OTHER 01-09-2015 [facility] MALAISE AND PHYSICIANS FATIGUE GROUP 34859 DIAB W/O 12-28-2014 [facility] MENTION [facility] COMP TYPE INC II/UNS TYPE UNCNTRL 2768 HYPOPOTASSE 12-28-2014 [facility] P 3319 UNSPECIFIED 12-28-2014 [facility] CEREBRAL MEDICAL DEGENERATIO IMAGING ASS N 7820 DISTURBANCE 12-28-2014 [facility] 40873 PRECORDIAL 12-28-2014 [facility] 37085 VOMITING 12-28-2014 [facility]BULANCE SERVICE V140 PERSONAL 12-28-2014 [facility] HISTORY OF [facility] TO [facility] P PENICILLIN 4414 ABDOMINAL 11-14-2014 [facility] HEALTH WITHOUT MEDICAL G MENTION OF RUPTURE 490 BRONCHITIS 10-30-2014 [facility] NOT PHYSICIANS SPECIFIED GROUP ACUTE OR CHRONIC 57907 UNSPECIFIED 05-07-2014 [facility] ART ORCHITIS AND EPIDIDYMITI S 42800 OTHER 04-16-2014 [facility] CHRONIC [facility] PAIN INC 496 CHRONIC 04-16-2014 [facility] AIRWAY [facility] OBSTRUCTION INC NEC 7242 LUMBAGO 04-16-2014 JAIDEN CAMILLA V1582 PERS HX 04-16-2014 [facility] TOBACCO USE [facility] PRESENTING INC 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 40276 ABDOMINAL 03-29-2014 [facility] III PAIN OTHER AREN SPECIFIED SITE 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 20761 ACUTE 03-03-2014 [facility] GASTRITIS [facility] WITHOUT INC MENTION OF HEMORRHAGE 49999 UNS 03-03-2014 [facility] GASTRITIS&G ASTRODUODIT IS W/O MENTION HEMORR 7213 LUMBOSACRAL 01-17-2014 [facility] TREVINO SPONDYLOSIS WITHOUT MYELOPATHY 7831 ABNORMAL 10-13-2013 [facility] WEIGHT GAIN [facility] INC 05552 DIARRHEA 10-13-2013 [facility] INC V0481 NEED 08-23-2013 NATHALY RAI PROPHYLACTI AREN C VACCINATION &INOCULATIO N FLU 3510 BELLS PALSY 07-24-2013 [facility] 7218 OTHER 07-24-2013 [facility] DISORDERS OF SPINE 51078 OTH 07-18-2013 [facility]RAINE [facility] W/O INTRACT INC W/O STATUS MIGRAINOSUS 05193 OTHER 06-18-2013 [facility] CONDITIONS BUBBA OF BRAIN 7220 DISPLCMT 06-18-2013 [facility] CERV BUBBA INTERVERT DISC WITHOUT MYELOPATHY 7249 OTHER 06-18-2013 [facility] UNSPECIFIED BUBBA BACK DISORDER V571 OTHER 05-28-2013 [facility] PHYSICAL [facility] THERAP[facility] INC 22196 UNSPECIFIED 03-06-2013 [facility] ARTHROPATHY [facility] P SHOULDER REGION 01262 PAIN IN 03-06-2013 [facility] EMERGENCY SHOULDER SERVICES REGION 7295 PAIN IN 03-06-2013 [facility] SOFT BUBBA TISSUES OF LIMB 70023 OTHER 03-06-2013 [facility] NONSPECIFIC BUBBA ABNORMAL FINDING OF LUNG FIELD 31034 MICROSCOPIC 01-26-2013 NATHALY RAI HEMATURIA AREN 8460 SPRAIN AND 01-26-2013 NATHALY RAI STRAIN OF AREN LUMBOSACRAL 34943 OTHER 01-25-2013 [facility] DISEASES OF BUBBA SPLEEN 441.4 441.4 ABDOM 01-25-2013 [place] AORTIC [facility] ANEURYSM [facility] 4411 THORACIC 01-25-2013 [facility] ANEURYSM, BUBBA RUPTURED 558.9 558.9 01-25-2013 [facility] IT NEC 5589 OTH&UNSPEC 01-25-2013 [facility] P GASTROENTER ITIS&COLITI S 94940 HYPERTROPHY 01-25-2013 [facility] PROSTATE BUBBA W/O UR OBST & OTH LUTS 6019 UNSPECIFIED 12-30-2012 [facility] PROSTATITIS INC 7823 EDEMA 12-30-2012 [facility] HOS[facility] INC 68781 UNSPECIFIED 12-29-2012 NATHALY YOUNGER CONSTIPATIO N 33526 ABDOMINAL 12-15-2012 [facility] 4400 ATHEROSCLER 12-14-2012 [facility] OSIS OF BUBBA AORTA 25381 ABDOMINAL 12-14-2012 [facility] PAIN, UNSPECIFIED SITE 63029 HEMATURIA 08-29-2012 [facility] UNSPECIFIED [facility]ICAL IMAGING ASS 94220 OTHER 08-21-2012 [facility] SPECIFIED MEDICAL DISORDERS IMAGING ASS OF BLADDER 05888 ABDOMINAL 08-08-2012 [facility] PAIN RIGHT BUBBA LOWER QUADRANT 4419 AORTIC 08-01-2012 JAMA ANTONY ANEUR UNSPEC SITE WITHOUT MENTION RUPTURE 7881 DYSURIA 07-24-2012 JAMA ANTONY 81346 PRIMARY 06-14-2012 NICK LACRIMAL JAM ATROPHY 76867 VITREOUS 06-14-2012 NICK DEGENERATIO JAM N 79326 UNSPECIFIED 04-04-2012 KANE FERRARA BLEPHAROCON JUNCTIVITIS 80260 ESOPHAGEAL 04-04-2012 [facility] REFLUX 5533 DIAPHRAGMAT 04-04-2012 [facility] ANDREW W/O MENTION OBSTRUCTION /GANGREN 00509 OTHER LATE 03-25-2012 [facility] EFFECTS OF CEREBROVASC ULAR DISEASE V711 OBSERVATION 03-24-2012 [facility] FOR MEDICAL SUSPECTED IMAGING ASS MALIGNANT NEOPLASM 436 ACUTE BUT 02-28-2012 NATHALY RAI ILL-DEFINED AREN CEREBROVASC ULAR DISEASE 25890 UNS 12-22-2011 [facility] DON[facility] MALIGNANT NEOPLASM EYELID INCLUDING CANTHUS 34358 BASAL CELL 12-22-2011 [place] CARCIN[facility] ANESTHESIA OF EYELID ASSOC L INCLUDING CANTHUS 75174 OTHER 12-22-2011 [facility] DON[facility] CHRONIC DERMATITIS DUE TO SOLAR RADIATION 99388 OTHER 11-28-2011 [facility] SPECIFIED BUBBA ACQUIRED DEFORMITY OF HEAD 4660 ACUTE 10-11-2011 NATHALY RAI BRONCHITIS AREN 7862 COUGH 10-11-2011 [facility] 2392 NEOPLASMS 10-01-2011 [facility] UNSPEC NATURE BONE SOFT TISSUE&SKIN 7226 DEGENERATIO 09-21-2011 [place] INTERVERTEB INTERNAL RAL DISC MED SITE UNSPEC 53120 BLEPHARITIS 09-07-2011 [facility] LB , UNSPECIFIED 3670 HYPERMETROP 08-20-2011 [facility] [place] VISION 36176 ABDOMINAL 07-27-2011 NEW PAIN RIGHT [facility] PSC QUADRANT 7210 CERVICAL 07-22-2011 NEW SPONDYLOSIS [facility] WITHOUT [facility]INIC PSC MYELOPATHY 2250 BENIGN 06-15-2011 [facility] NEOPLASM OF [facility] PSC 02904 SHORTNESS 06-03-2011 [facility] MEDICAL IMAGING ASS 1101 DERMATOPHYT 05-18-2011 [place] OSIS OF [place] NAIL INTERNAL MED 7822 LOCALIZED 05-18-2011 [facility] SUPERFICIAL [place] SWELLING INTERNAL MASS OR MED LUMP 7906 OTHER 04-13-2011 [facility] ABNORMAL [place] BLOOD INTERNAL CHEMISTRY MED 98090 DYSPHAGIA 02-25-2011 [facility] UNSPECIFIED [facility] INC 7871 HEARTBURN 02-16-2011 C CELESTINO ADAME MD [facility] 20413 ABDOMINAL 02-16-2011 [facility] EPIGASTRIC [facility] 1919 MALIGNANT 02-03-2011 [facility] NEOPLASM OF [place] BRAIN INTERNAL UNSPECIFIED MED SITE 16213 DYSPHAGIA 02-03-2011 [facility] DUE TO [place] CEREBROVASC INTERNAL ULAR MED DISEASE 1104 DERMATOPHYT 12-14-2010 [facility] OSIS OF [place] FOOT INTERNAL MED 9953 ALLERGY 12-12-2010 [facility] UNSPECIFIED [place] NOT INTERNAL ELSEWHERE MED CLASSIFIED 7821 RASH AND 12-09-2010 [facility] OTHER [place] NONSPECIFIC INTERNAL SKIN MED ERUPTION 7079 CHRONIC 12-07-2010 [facility] ULCER OF [place] UNSPECIFIED INTERNAL SITE MEDI 3688 OTHER 09-21-2010 [facility] SPECIFIED MEDICAL VISUAL IMAGING ASS DISTURBANCE S 25091 MUSCLE 09-21-2010 [facility] (GENERALIZE INC D) 23273 FACIAL 09-21-2010 [facility] 02776 NAUSEA WITH 07-27-2010 [facility]ANCE SERVICE 32543 OTHER AND 07-25-2010 [facility] UNSPECIFIED [place] INTERNAL CONJUNCTIVI MED TIS 5409 ACUTE 05-05-2010 [facility] APPENDICIT[facility] S WITHOUT HOSPITAL MENTION PROF SERV PERITONITIS 541 APPENDICITI 05-05-2010 [facility] S, MEDICAL UNQUALIFIED [facility] 7804 DIZZINESS 05-05-2010 [facility] V4589 OTHER 05-05-2010 [facility] PROF SERV 39493 PAINFUL 11-05-2009 [facility] RESPIRATION [place] INTERNAL MED 39522 OTHER SPEC 09-03-2009 [place] [facility] GASTRIT[facility] SERV WITHOUT FOUNDATIO MENTION HEMORRHAGE 93701 DUODENITIS 09-03-2009 [facility] WITHOUT [facility] MENTION OF INC HEMORRHAGE 36660 NAUSEA 09-03-2009 [facility] & ALONE CYTOLOGY LAB 67776 UNSPECIFIED 05-07-2009 [facility] TIS PROF SERV 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 UNSPECIFIED MED 40877 OTHER 01-13-2009 [facility] ANXIETY [place] INTERNAL MED 4439 UNSPECIFIED 12-20-2008 [facility] PERIPHERAL [facility] VASCULAR INC DISEASE 44284 ONYCHIA AND 12-16-2008 [facility] PARONYCHIA [place] OF TOE INTERNAL MED 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 CHRONIC 11-13-2008 [facility] PAIN [place] SYNDROME INTERNAL MED 4659 ACUTE URIS 10-30-2008 [facility] OF VALLEY UNSPECIFIED INTERNAL SITE MED 17098 ABDOMINAL 07-17-2008 [place] PAIN, LEFT CLINIC UPPER LABORATORY QUADRANT 72558 DISORDER OF 06-25-2008 [facility] AND [facility] CARTILAGE INC UNSPECIFIED 3674 PRESBYOPIA 04-11-2008 [facility]HA[facility] MIDDLETON 7802 SYNCOPE AND 03-29-2008 [facility] 30867 TRANSIENT 03-28-2008 [facility] ER AMBULANCE OF SERVICE AWARENESS 4011 ESSENTIAL 03-14-2008 [facility] HYPERTENSIO [place] N, BENIGN CLINIC PSC 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 AR 5 MA MG CY TA OF BL CY ET NT HI AN A IN C PA 65 08 30 30 00 EA Ac NT [...] 80 4- 9- 00 00 SI ve AR 21 20 20 49 DE DE 61 17 17 91 0 24 PH 40 AR MA MG CY TA OF BL CY ET NT HI AN A IN C ME 23 08 30 30 00 EA Ac TF 15 -2 -[address] ti OR 50 4- 9- 00 00 SI ve AR 10 20 20 49 DE N 21 [...] 5 49 PH CE AR TA MA AR CY NO PH OF N CY 10 [...] ST ti ZO 52 1- 1- 00 SI ve SI 85 20 20 [...] 50 4- 5- 00 00 SI ve AR 10 20 20 49 DE N 21 17 17 54 HC 0 03 PH L AR 50 MA 0 CY MG OF TA CY BL NT ET HI AN A IN C FU 00 07 08 30 30 00 EA Ac RO 37 -2 -[address] ti SE 80 4- 5- 00 00 SI ve AR 21 20 20 49 DE DE 61 [...] 5 66 PH CE AR TA MA AR CY NO PH OF N CY 10 NT -3 HI 25 AN A IN C AT 60 07 08 30 30 00 EA Ac OR 50 -1 -[address] ti VA 52 2- 1- [address] 58 20 20 49 DE AT 00 17 17 10 IN 9 75 PH AR 40 MA CY MG OF TA CY BL NT ET HI AN A IN C LO 16 07 [...] TA AN B A IN C ME 23 06 07 30 30 00 EA Ac TF 15 -2 -[address] ti OR 50 2- 8- 00 00 SI ve AR 10 20 20 49 DE N 21 [...] HI BL AN ET A IN C NI 43 06 07 [...] 80 6- 1- 00 00 SI ve AR 21 20 20 49 DE DE 61 [...] 5 80 PH CE AR TA MA AR CY NO PH OF N CY 10 NT -3 HI 25 AN A IN C ME 00 05 [...] 50 2- 3- 00 00 SI ve AR 10 20 20 48 DE N 21 17 17 84 HC 0 08 PH L AR 50 MA 0 CY MG OF TA CY BL NT ET HI AN A IN C LO 16 05 30 30 00 EA Ac SA 71 -2 -[address] ti RT 40 3- 3- 00 00 SI ve AN 22 20 20 48 DE -H [address] 1 90 PH Z AR 10 MA 0- CY 12 .5 OF CY MG NT HI TA AN B A IN C AL 60 05 30 30 00 EA Ac FU [...] 5 38 PH CE AR TA MA AR CY NO PH OF N CY 10 NT -3 HI 25 AN A IN C SI 16 05 [...] ST ti SE 80 9- 9- 00 SI ve AR 21 20 20 48 DE DE 61 17 17 68 0 20 PH 40 AR MA MG CY TA OF BL CY ET NT HI AN A IN C ME 00 04 05 30 30 00 EA Ac TF 09 -2 -[address] ti OR 31 6 00 SI ve AR 04 20 20 48 DE N 80 [...] .[address] ti AZ 50 1- 6- 00 SI ve EP 06 20 20 48 DE AM 30 17 17 45 5 26 PH 0. AR 5 MA MG CY TA OF BL CY ET NT HI AN A IN C PO 51 04 05 52 30 00 EA Ac LY 99 -2 -[address] ti ET 10 - 6- 00 SI ve HY 45 20 20 [...] B A IN C AL 60 04 05 [...] 40 0- 2- 00 00 SI ve AR 62 20 20 48 DE DE 51 [...] 5 38 PH CE AR TA MA AR CY NO PH OF N CY 10 NT -3 HI 25 AN A IN C ES 65 03 04 30 30 00 EA Ac CI 86 -2 -[address] ti TA 20 1- 1- 00 00 SI ve LO 37 20 20 48 DE CO 40 17 17 05 AM 1 71 [...] 31 0- 1- 00 00 SI ve AR 04 20 20 48 DE N 80 [...] HI TA AN B A IN C FU 63 03 04 30 30 00 EA Ac RO 30 -0 -[address] ti SE 40 9- 4- 00 00 SI ve AR 62 20 20 47 DE DE 51 [...] 5 33 PH CE AR TA MA AR CY NO PH OF N CY 10 [...] 50 7- 4- 00 00 SI ve AR 10 20 20 47 DE N 21 17 17 66 HC 0 02 PH L AR 50 MA 0 CY MG OF TA CY BL NT ET HI AN A IN C ES 65 02 03 30 30 00 EA Ac CI 86 -1 -[address] ti TA 20 7- 4- 00 00 SI ve LO 37 20 20 47 DE CO 40 17 17 66 AM 1 03 [...] 5 63 PH CE AR TA MA AR CY NO PH OF N CY 10 [...] 40 0- 3- 00 00 SI ve AR 62 20 20 47 DE DE 51 [...] 50 6- 7- 00 00 SI ve AR 10 20 20 47 DE N 21 [...] 5 53 PH CE AR TA MA AR CY NO PH OF N CY 10 [...] HI AN A IN C LE 00 01 02 30 30 00 EA Ac VO [...] 40 6- 7- 00 00 SI ve AR 62 20 20 47 DE DE 51 [...] AN A IN C ME 23 12 30 30 00 EA Ac TF 15 -1 -[address] ti OR 50 5- 0- 00 00 SI ve AR 10 20 20 46 DE N 21 [...] 5 68 PH CE AR TA MA AR CY NO PH OF N CY 10 [...] RT 40 9- 9- 00 SI 16 AR ve AN 22 20 20 0 DE [...] PE 40 4- 4- 00 SI 87 AR ve NT 66 20 20 0 DE E IN 20 13 13 JR 1 PH 30 AR WI 0 MA LL MG CY IA M CA OF F PS UL CY E NT HI AN A SI 16 11 11 0 30 30 EA 33 MC Ac MV 71 -1 -[address] 61 KE ti 40 2- 2- 00 SI 39 AR ve TA 68 20 20 0 DE E TI 40 13 13 JR N 3 PH 40 AR WI MA LL MG CY IA M TA OF F BL ET CY NT HI AN A LO 16 06 11 4 15 15 EA 31 MC Ac SA 71 -1 -[address] 99 KE ti RT 40 0- 2- 00 SI 99 AR ve AN 22 20 20 0 DE E -H [address] 1 PH Z AR WI 10 MA LL 0- CY IA 12 M .5 OF F MG CY NT TA HI B AN A OM 62 09 11 2 30 30 EA 32 MC Ac EP 17 -0 -[address] 86 KE ti RA 50 4- 1- 00 SI 09 AR ve ZO 13 20 20 0 DE E LE 63 13 [address] AR WI MA LL 40 CY IA M MG OF F CA CY PS NT UL HI E AN A ME 00 08 11 3 30 30 EA 32 MC Ac TF 09 -0 -[address] 52 KE ti OR 31 2- 9- 00 SI 59 AR ve AR 04 20 20 0 DE E N 81 13 13 JR HC 0 PH L AR WI 50 MA LL 0 CY IA MG M OF F TA BL CY ET NT HI AN A FU 63 08 11 2 30 30 EA 32 MC Ac RO 30 -2 -[address] 80 KE ti SE 40 9- 5- 00 SI 32 AR ve AR 62 20 20 0 DE E DE 51 13 13 JR 0 PH 40 AR WI MA LL MG CY IA M TA OF F BL ET CY NT HI AN A LE 00 07 11 3 30 30 EA 32 MC Ac VO 37 -2 -[address] 46 KE ti TH 81 6- 2- 00 SI 48 AR ve YR 80 20 20 0 DE [...] AZ 83 4- 2- 00 SI 89 AR ve EP 00 20 20 0 DE E AM 45 13 13 JR 1 0 PH AR WI MG MA LL CY IA TA M BL OF F ET CY NT HI AN A LO 16 06 10 4 15 15 EA 31 MC Ac SA 71 -1 -[address] 99 KE ti RT 40 0- 5- 00 SI 99 AR ve AN 22 20 20 0 DE [...] AZ 83 4- 4- 00 SI 89 AR ve EP 00 20 20 0 DE E AM 45 13 13 JR 1 0 PH AR WI MG MA LL CY IA TA M BL OF F ET CY NT HI AN A SI 16 08 10 2 30 30 EA 32 MC Ac MV 71 -0 -[address] 57 KE ti 40 7- 2- 00 SI 30 AR ve TA 68 20 20 0 DE E TI 40 13 13 JR N 3 PH 40 AR WI MA LL MG CY IA M TA OF F BL ET CY NT HI AN A OM 62 09 10 2 30 30 EA 32 MC Ac EP 17 -0 -[address] 86 KE ti RA 50 4- 9- 00 SI 09 AR ve ZO 13 20 20 0 DE E LE 63 13 [address] AR WI MA LL 40 CY IA M MG OF F CA CY PS NT UL HI E AN A ME 00 08 10 3 30 30 EA 32 MC Ac TF 09 -0 -[address] 52 KE ti OR 31 2- 7- 00 SI 59 AR ve AR 04 20 20 0 DE E N 81 13 13 JR HC 0 PH L AR WI 50 MA LL 0 CY IA MG M OF F TA BL CY ET NT HI AN A FU 63 08 10 2 30 30 EA 32 MC Ac RO 30 -2 -[address] 80 KE ti SE 40 9- 3- 00 SI 32 AR ve AR 62 20 20 0 DE E DE [...] ti 4 ve MG /2 ML AL CO 51 02 0 No OM 07 -2 ET 90 8- Lo NG 89 20 ng ZI 52 13 er NE 0H Ac 25 ti MG ve TA BL ET TA KE EX 00 08 10 2 30 30 EA 23 MC Ac FO 07 -1 -[address] 73 KE ti RG 80 9- 9- 00 SI 45 AR ve E 48 20 20 DE E 10 91 11 11 JR -1 5 PH 60 AR WI MA LL MG CY IA M TA OF F BL ET CY NT HI AN A ME 00 08 10 1 30 30 EA 23 BE Ac TF 09 -2 -[address] 77 SS ti OR 31 3- 8- 00 SI 83 ON ve AR 04 20 20 DE N 81 11 [...] AC 40 4- 4- 00 SI 01 AR ve ET 70 20 20 DE E [...] UM 65 6- 0- 00 SI 46 AR ve 04 [address] 03 11 11 JR 1 PH 40 AR WI MA LL MG CY IA M CA OF F PS UL CY E NT HI AN A FU 63 09 10 3 30 30 EA 24 MC Ac RO 30 -1 -[address] 04 KE ti SE 40 2- 0- 00 SI 35 AR ve AR 62 20 20 DE E DE 51 [...] ti 10 7- 7- 00 SI 81 AR ve 54 20 20 0 DE E [...] RG 80 9- 4- 00 SI 45 AR ve E 48 20 20 DE E 10 91 11 11 JR -1 5 PH 60 AR WI MA LL MG CY IA M TA OF F BL ET CY NT HI AN A SI 16 05 09 3 30 30 EA 22 MC Ac MV 71 -3 -[address] 74 KE ti 40 1- 4- 00 SI 35 AR ve TA 68 20 20 DE E [...] 2- 2- 00 SI 16 ON ve AR 62 20 20 DE DE 51 11 [...] ti 10 7- 7- 00 SI 45 AR ve 54 20 20 0 DE E 00 11 11 JR 1 PH AR WI MA LL CY IA M OF F CY NT HI AN A CL 00 09 09 0 90 30 EA 23 MC Ac ON 09 -0 -[address] 98 KE ti AZ 30 6- 6- 00 SI 47 AR ve EP 83 20 20 DE E AM 20 11 11 JR 1 PH 0. AR [place] 5 MA LL MG CY IA M TA OF F BL ET CY NT HI AN A NE 00 08 08 2 30 30 EA 23 MC Ac XI 18 -3 -[address] 89 KE ti UM 65 1- 1- 00 SI 75 AR ve 04 [address] [...] 3- 3- 00 SI 83 ON ve AR 04 20 20 DE N 81 11 [...] RG 80 9- 9- 00 SI 45 AR ve E 48 20 20 DE E [...] 6- 6- 00 SI 13 ON ve AR 62 20 20 DE DE [address] 0 PH EP 40 AR HE MA N MG CY A TA OF BL ET CY NT HI AN A SI 16 05 08 3 30 30 EA 22 MC Ac MV 71 -3 -[address] 74 KE ti 40 1- 6- 00 SI 35 AR ve TA 68 20 20 DE E TI 40 11 11 JR N 3 PH 40 AR WI MA LL MG CY IA M TA OF F BL ET CY NT HI AN A CL 00 08 08 0 90 30 EA 23 MC Ac ON 09 -0 -[address] 54 KE ti AZ 30 5- 5- 00 SI 97 AR ve EP 83 20 20 DE E AM 20 11 11 JR 1 PH 0. AR WI 5 MA LL MG CY IA M TA OF F BL ET CY NT HI AN A ZE 66 06 08 3 30 30 EA 23 MC Ac TI 58 -2 -[address] 05 KE ti A 20 3- 2- 00 SI 21 AR ve 10 41 20 20 DE E 43 11 11 JR MG 1 PH AR WI TA MA LL BL CY IA ET M OF F CY NT HI AN A NE 00 05 08 2 30 30 EA 22 MC Ac XI 18 -2 -[address] 69 KE ti UM 65 5- 2- 00 SI 36 AR ve 04 [address] [...] .0 ST 06 KE ti RG 80 1 6 SI 11 AR ve E 48 20 20 DE E 10 91 11 11 JR -1 5 PH 60 AR WI MA LL MG CY IA M TA OF F BL ET CY NT HI AN A ME 00 05 07 1 60 30 EA 22 BE Ac TF 09 -1 -[address] 56 SS ti OR 31 7- 1 SI 55 ON ve AR 04 20 20 DE N [address] HC 0 PH EP L AR HE 50 MA N 0 CY A MG OF TA BL CY ET NT HI AN A LE 00 07 07 5 30 30 EA 23 BE Ac VO 37 -1 -[address] 24 SS ti TH 81 1 SI 87 ON ve YR 80 20 [...] AZ 30 5- 5- 00 SI 75 AR ve EP 83 20 20 DE E AM 20 11 11 JR 1 PH 0. AR [place] 5 MA LL MG CY IA M TA OF F BL ET CY NT HI AN A FU 63 05 07 2 30 30 EA 22 BE Ac RO 30 -0 -[address] 36 SS ti SE 40 3- 4- 00 SI 75 ON ve AR 62 20 20 DE DE [address] 0 PH EP 40 AR HE MA N MG CY A TA OF BL ET CY NT HI AN A SI 16 05 07 3 30 30 EA 22 MC Ac MV 71 -3 -[address] 74 KE ti 40 1- 2- 00 SI 35 AR ve TA 68 20 20 DE E TI 40 11 11 JR N 3 PH 40 AR WI MA LL MG CY IA M TA OF F BL ET CY NT HI AN A NE 00 05 06 2 30 30 EA 22 MC Ac XI 18 -2 -[address] 69 KE ti UM 65 5- 5- 00 SI 36 AR ve 04 [address] 03 11 11 JR 1 PH 40 AR WI MA LL MG CY IA M CA OF F PS UL CY E NT HI AN A ZE 66 06 06 3 30 30 EA 23 MC Ac TI 58 -2 -[address] 05 KE ti A 20 3- 3- 00 SI 21 AR ve 10 41 20 20 DE E [...] ST 02 SS ti RO 20 1- 1- 00 SI 36 ON ve CI 11 20 20 DE N [address] 2% 2 PH EP AR HE OI MA N NT CY A ME NT OF CY NT HI AN A EX 00 04 06 3 30 30 EA 22 MC Ac FO 07 -1 -[address] 06 KE ti RG 80 1- 5- 00 SI 11 AR ve E 48 20 20 DE E [...] AZ 30 7- 7- 00 SI 61 AR ve EP 83 20 20 DE E AM 20 11 11 JR 1 PH 0. AR [place] 5 MA LL MG CY IA M TA OF F BL ET CY NT HI AN A FU 63 05 06 2 30 30 EA 22 BE Ac RO 30 -0 -[address] 36 SS ti SE 40 3- 2- 00 SI 75 ON ve AR 62 20 20 DE DE [address] 0 PH EP 40 AR HE MA N MG CY A TA OF BL ET CY NT HI AN A SI 16 05 05 3 30 30 EA 22 MC Ac MV 71 -3 -[address] 74 KE ti 40 1- 1- 00 SI 35 AR ve TA 68 20 20 DE E TI 40 11 11 JR N 3 PH 40 AR WI MA LL MG CY IA M TA OF F BL ET CY NT HI AN A NE 00 05 05 2 30 30 EA 22 MC Ac XI 18 -2 -[address] 69 KE ti UM 65 5- 6- 00 SI 36 AR ve 04 [address] [...] % CY A EY E OF DR OP CY S NT HI AN A ME 00 05 05 1 60 30 EA 22 BE Ac TF 09 -1 -[address] 56 SS ti OR 31 7- 7- 00 SI 55 ON ve AR 04 20 20 DE N [address] HC 0 PH EP L AR HE 50 MA N 0 CY A MG OF TA BL CY ET NT HI AN A EX 00 04 05 3 30 30 EA 22 MC Ac FO 07 -1 -[address] 06 KE ti RG 80 1- 6- 00 SI 11 AR ve E 48 20 20 DE E [...] 3- 3- 00 SI 75 ON ve AR 62 20 20 DE DE 51 11 [...] UM 65 1- 5- 00 SI 04 AR ve 04 [address] 03 11 11 JR 1 PH 40 AR WI MA LL MG CY IA M CA OF F PS UL CY E NT HI AN A SI 16 02 04 2 30 30 EA 21 MC Ac MV 71 -1 -[address] 26 KE ti 40 6- 5- 00 SI 51 AR ve TA 68 20 20 DE E TI 40 11 11 JR N 3 PH 40 AR WI MA LL MG CY IA M TA OF F BL ET CY NT HI AN A EX 00 04 04 3 30 30 EA 22 MC Ac FO 07 -1 -[address] 06 KE ti RG 80 1- 1- 00 SI 11 AR ve E 48 20 20 DE E 10 91 11 11 JR -1 5 PH 60 AR WI MA LL MG CY IA M TA OF F BL ET CY NT HI AN A 00 04 04 0 12 30 EA 22 MC Ac 59 -1 -[address] 05 KE ti 10 0- 0- 00 SI 59 AR ve 54 20 20 0 DE E 00 11 11 JR 1 PH AR WI MA LL CY IA M OF F CY NT HI AN A CL 00 04 04 0 90 30 EA 22 MC Ac ON 09 -0 -[address] 01 KE ti AZ 30 6- 6- 00 SI 40 AR ve EP 83 20 20 DE E AM 20 11 11 JR 1 PH 0. AR [place] 5 MA LL MG CY IA M TA OF F BL ET CY NT HI AN A HY 00 04 04 2 30 30 EA [address] 59 -0 -[address] 97 KE ti OC 10 4- 4- 00 SI 70 AR ve HL 34 20 20 DE E [...] DE TA RA 10 11 11 D AR 5 PH CA DE AR MP 5 MA BE CY LL MG K OF TA BL CY ET NT HI AN A NE 00 02 03 2 30 30 EA 21 MC Ac XI 18 -2 -[address] 33 KE ti UM 65 1- 2- 00 SI 04 AR ve 04 [address] 03 11 11 JR 1 PH 40 AR WI MA LL MG CY IA M CA OF F PS UL CY E NT HI AN A SI 16 02 03 2 30 30 EA 21 MC Ac MV 71 -1 -[address] 26 KE ti 40 6- 2- 00 SI 51 AR ve TA 68 20 20 DE E [...] RG 80 3 9 00 SI 32 AR ve E 48 20 20 DE E 10 91 10 11 JR -1 5 PH 60 AR WI MA LL MG CY IA M TA OF F BL ET CY NT HI AN A CO 00 01 03 2 20 5 EA 20 MC Ac OM 78 -1 -[address] 84 KE ti ET 11 9 SI 38 AR ve NG 83 20 20 DE E ZI 01 11 11 JR NE 0 PH AR WI 25 MA LL CY IA MG M OF F TA BL CY ET NT HI AN A CL 00 03 03 0 90 30 EA 21 MC Ac ON 09 -0 -[address] 58 KE ti AZ 30 7 7 SI 91 AR ve EP 83 20 20 DE E AM 20 11 11 JR 1 PH 0. AR [place] 5 MA LL MG CY IA M TA OF F BL ET CY NT HI AN A HY 00 12 03 2 30 30 EA [address] 59 -2 -[address] 58 KE ti OC 10 SI 00 AR ve HL 34 20 20 DE E OR 70 10 11 JR OT 1 PH HI AR WI AZ MA LL ID CY IA E M 12 OF F .5 CY MG NT HI CP AN A LE 00 03 03 0 30 30 EA 21 BE Ac VO 37 -0 -[address] 53 SS ti TH 81 4 SI 81 ON ve YR 80 20 20 DE OX [address] IN 1 PH EP E AR HE 50 MA N CY A MC G OF TA BL CY ET NT HI AN A NE 00 02 02 2 30 30 EA 21 MC Ac XI 18 -2 -[address] 33 KE ti UM 65 SI 04 AR ve 04 [address] 03 11 11 JR 1 PH 40 AR WI MA LL MG CY IA M CA OF F PS UL CY E NT HI AN A FL 00 01 02 1 7. 7 EA 20 MC Ac UC 17 -1 -[address] 81 KE ti ON 25 5- 6- 0 SI 97 AR ve AZ 41 20 20 DE E OL 14 11 11 JR E 6 PH 10 AR WI 0 MA LL MG CY IA M TA OF F BL ET CY NT HI AN A SI 16 02 02 2 30 30 EA 21 MC Ac MV 71 -1 -[address] 26 KE ti 40 6- 6- 00 SI 51 AR ve TA 68 20 20 DE E TI 40 11 11 JR N 3 PH 40 AR WI MA LL MG CY IA M TA OF F BL ET CY NT HI AN A [place] 00 01 02 1 60 4 EA [address] 16 -1 -[address] 84 KE ti AT 80 7- 5- 00 SI 39 AR ve IN 08 20 20 DE E -T 16 11 11 JR RI 0 PH AM AR WI CI MA LL NO CY IA LO M NE OF F CR CY EA NT M HI AN A 00 02 02 0 12 30 EA 21 MC Ac 59 -1 -[address] 20 KE ti 10 1- 1- 00 SI 16 AR ve 54 20 20 0 DE E 00 11 11 JR 1 PH AR WI MA LL CY IA M OF F CY NT HI AN A CL 00 12 02 2 90 30 EA 20 MC Ac ON 09 -0 -[address] 32 KE ti AZ 30 9- 7- 00 SI 83 AR ve EP 83 20 20 DE E AM 20 10 11 JR 1 PH 0. AR [place] 5 MA LL MG CY IA M TA OF F BL ET CY NT HI AN A EX 00 12 02 3 30 30 EA 20 MC Ac FO 07 -0 -[address] 24 KE ti RG 80 3- 5- 00 SI 32 AR ve E 48 20 20 DE E 10 91 10 11 JR -1 5 PH 60 AR WI MA LL MG CY IA M TA OF F BL ET CY NT HI AN A HY 00 12 01 2 30 30 EA [address] 59 -2 -[address] 58 KE ti OC 10 9- 0- 00 SI 00 AR ve HL 34 20 20 DE E [...] UM 65 8- 0- 00 SI 05 AR ve 04 [address] 03 10 11 JR 1 PH 40 AR WI MA LL MG CY IA M CA OF F PS UL CY E NT HI AN A CO 00 01 01 2 20 5 EA 20 MC Ac OM 78 -1 -[address] 84 KE ti ET 11 7- 7- 00 SI 38 AR ve NG 83 20 20 DE E ZI 01 11 11 JR NE 0 PH AR WI 25 MA LL CY IA MG M OF F TA BL CY ET NT HI AN A [place] 00 01 01 1 60 4 EA [address] 16 -1 -[address] 84 KE ti AT 80 7- 7- 00 SI 39 AR ve IN 08 20 20 DE E [...] ON 25 5- 5- 0 SI 97 AR ve AZ 41 20 20 DE E OL 14 11 11 JR E 6 PH 10 AR WI 0 MA LL MG CY IA M TA OF F BL ET CY NT HI AN A 00 01 01 0 30 15 EA 20 MC Ac 14 -1 -[address] 81 KE ti 31 5- 5- 00 SI 98 AR ve 47 20 20 DE E 70 11 11 JR 5 PH AR WI MA LL CY IA M OF F CY NT HI AN A SI 16 12 01 1 30 30 EA 20 MC Ac MV 71 -1 -[address] 42 KE ti 40 6- 5- 00 SI 49 AR ve TA 68 20 20 DE E TI 40 10 11 JR N 3 PH 40 AR WI MA LL MG CY IA M TA OF F BL ET CY NT HI AN A MU 00 01 01 0 22 4 EA 20 MC Ac PI 09 -1 -[address] 81 KE ti RO 31 4- 4- 00 SI 11 AR ve CI 01 20 20 DE E N 04 11 11 JR 2% 2 PH AR WI OI MA LL NT CY IA ME M NT OF F CY NT HI AN A CE 00 01 01 0 28 7 EA 20 BE Ac PH 09 -1 -[address] 77 SS ti AL [...] AM 60 0- 0- 00 SI 99 AR ve ET 27 20 20 DE E HO 20 11 11 JR XA 5 PH ZO AR WI LE MA LL -T CY IA MP M OF F DS CY TA NT BL HI ET AN A MU 00 01 01 0 22 4 EA 20 MC Ac PI 09 -1 -[address] 76 KE ti RO 31 0- 0- 00 SI 00 AR ve CI 01 20 20 DE E N 04 11 11 JR 2% 2 PH AR WI OI MA LL NT CY IA ME M NT OF F CY NT HI AN A CL 00 12 01 2 90 30 EA 20 MC Ac ON 09 -0 -[address] 32 KE ti AZ 30 9- 8- 00 SI 83 AR ve EP 83 20 20 DE E AM 20 10 11 JR 1 PH 0. AR [place] 5 MA LL MG CY IA M TA OF F BL ET CY NT HI AN A EX 00 12 01 3 30 30 EA 20 MC Ac FO 07 -0 -[address] 24 KE ti RG 80 3- 4- 00 SI 32 AR ve E 48 20 20 DE E 10 91 10 11 JR -1 5 PH 60 AR WI MA LL MG CY IA M TA OF F BL ET CY NT HI AN A HY 00 12 12 2 30 30 EA [address] 59 -2 -[address] 58 KE ti OC 10 9 9- 00 SI 00 AR ve HL 34 20 20 DE E OR 70 10 10 JR OT 1 PH HI AR WI [place] MA LL ID CY IA E M 12 OF F .5 CY MG NT HI CP AN A LE 00 11 12 1 30 30 EA 20 BE Ac VO 37 -2 -[address] 16 SS ti TH 81 9- 9- 00 SI 83 ON ve YR 80 [...] UM 65 8- 0- 00 SI 05 AR ve 04 [address] 03 10 10 JR 1 PH 40 AR WI MA LL MG CY IA M CA OF F PS UL CY E NT HI AN A SI 16 12 12 1 30 30 EA 20 MC Ac MV 71 -1 -[address] 42 KE ti 40 6- 6- 00 SI 49 AR ve TA 68 20 20 DE E TI 40 10 10 JR N 3 PH 40 AR [place] MA LL MG CY IA M TA OF F BL ET CY NT HI AN A CL 00 12 12 2 90 30 EA 20 MC Ac ON 09 -0 -[address] 32 KE ti AZ 30 SI 83 AR ve EP 83 20 20 DE E AM 20 10 10 JR 1 PH 0. AR [place] 5 MA LL MG CY IA M TA OF F BL ET CY NT HI AN A EX 00 12 12 3 30 30 EA 20 MC Ac FO 07 -0 -[address] 24 KE ti RG 80 3- 3 00 SI 32 AR ve E 48 20 20 DE E 10 91 10 10 JR -1 5 PH 60 AR WI MA LL MG CY IA M TA OF F BL ET CY NT HI AN A HY 00 09 11 2 30 30 EA [address] 59 -2 -[address] 23 KE ti OC 10 SI 17 AR ve HL 34 20 20 DE E [...] ST 59 KE ti UM 65 8- 0 00 SI 05 AR ve 04 [address] 03 10 10 JR 1 PH 40 AR [place] MA LL MG CY IA M CA OF F PS UL CY E NT HI AN A SI 16 08 11 3 30 30 EA 18 MC Ac MV 71 -0 -[address] 64 KE ti 40 SI 89 AR ve TA 68 20 20 DE E TI 40 10 10 JR N 3 PH 40 AR [place] MA LL MG CY IA M TA OF F BL ET CY NT HI AN A CL 00 11 11 0 90 30 EA 19 MC Ac ON 09 -0 -[address] 88 KE ti AZ 30 SI 62 AR ve EP 83 20 20 DE E AM 20 10 10 JR 1 PH 0. AR [place] 5 MA LL MG CY IA M TA OF F BL ET CY NT HI AN A EX 00 05 11 5 30 30 EA 17 MC Ac FO 07 -2 -[address] 70 KE ti RG 80 2- 3- 00 SI 24 AR ve E 48 20 20 DE E 10 91 10 10 JR -1 5 PH 60 AR WI MA LL MG CY IA M TA OF F BL ET CY NT HI AN A LE 00 08 10 2 30 30 EA 18 Ac VO 37 -1 -[address] 75 KE ti TH 81 8- 3- 00 SI 58 AR ve YR 80 20 20 DE E OX 30 10 10 JR IN 1 PH E AR WI 50 MA LL CY IA MC M G OF F TA BL CY ET NT HI AN A HY 00 09 10 2 30 [address] 59 -2 -[address] 23 KE ti OC 10 1- 3- 00 SI 17 AR ve HL 34 20 20 DE E OR 70 10 10 JR OT 1 PH HI AR WI [place] MA LL ID CY IA E M 12 OF F .5 CY MG NT HI CP AN A NE 00 10 10 3 30 30 EA 19 Ac XI 18 -1 -[address] 59 KE ti UM 65 8- 8- 00 SI 05 AR ve 04 [address] 03 10 10 JR 1 PH 40 AR WI MA LL MG CY IA M CA OF F PS UL CY E NT HI AN A SI 16 08 10 3 30 30 EA 18 Ac MV 71 -0 -[address] 64 KE ti 40 9- 5- 00 SI 89 AR ve TA 68 20 20 DE E TI 40 10 10 JR N 3 PH 40 AR WI MA LL MG CY IA M TA OF F BL ET CY NT HI AN A 00 10 10 0 12 30 EA 19 Ac 59 -1 -[address] 53 KE ti 10 3- 3- 00 SI 11 AR ve 54 20 20 0 DE E 00 10 10 JR 1 PH AR WI MA LL CY IA M OF F CY NT HI AN A CL 00 10 10 0 90 30 EA 19 Ac ON 09 -0 -[address] 46 KE ti AZ 30 8- 8- 00 SI 44 AR ve EP 83 20 20 DE E AM 20 10 10 JR 1 PH 0. AR [place] 5 MA LL MG CY IA M TA OF F BL ET CY NT HI AN A EX 00 05 10 5 30 30 EA 17 Ac FO 07 -2 -[address] 70 KE ti RG 80 2- 2- 00 SI 24 AR ve E 48 20 20 DE E 10 91 10 10 JR -1 5 PH 60 AR [place] MA LL MG CY IA M TA OF F BL ET CY NT HI AN A GALLAGHER 53 09 09 0 20 10 EA 19 Ac LF 74 -2 -[address] 28 KE ti AM 60 4- 4- 00 SI 32 AR ve ET 27 20 20 DE E HO 20 10 10 JR XA 5 PH ZO AR WI LE MA LL -T CY IA MP M OF F DS CY TA NT BL HI ET AN A LE 00 08 09 2 30 30 EA 18 Ac VO 37 -1 -[address] 75 KE ti TH 81 8- 00 SI 58 AR ve YR 80 20 20 DE E OX 30 10 10 JR IN 1 PH E AR [place] 50 MA LL CY IA MC M G OF F TA BL CY ET NT HI AN A HY 00 09 09 2 30 [address] 59 -2 -[address] 23 KE ti OC 10 SI 17 AR ve HL 34 20 20 DE E OR 70 10 10 JR OT 1 PH HI AR WI [place] MA LL ID CY IA E M 12 OF F .5 CY MG NT HI CP AN A SI 16 08 09 3 30 30 EA 18 Ac MV 71 -0 -[address] 64 KE ti 40 9 4 00 SI 89 AR ve TA 68 20 20 DE E TI 40 10 10 JR N 3 PH 40 AR WI MA LL MG CY IA M TA OF F BL ET CY NT HI AN A 00 09 09 0 12 30 EA 19 Ac 59 -1 -[address] 10 KE ti 10 3- 3- 00 SI 99 AR ve 54 20 20 0 DE E 00 10 10 JR 1 PH AR WI MA LL CY IA M OF F CY NT HI AN A CL 00 09 09 0 90 30 EA 19 Ac ON 09 -0 -[address] 04 KE ti AZ 30 8- 8 00 SI 54 AR ve EP 83 20 20 DE E AM 20 10 10 JR 1 PH 0. AR [place] 5 MA LL MG CY IA M TA OF F BL ET CY NT HI AN A EX 00 05 09 5 30 30 EA 17 MC Ac FO 07 -2 -[address] 70 KE ti RG 80 2- 00 SI 24 AR ve E 48 20 20 DE E [...] .0 ST 50 KE ti OC 10 7 8 00 SI 77 AR ve HL 34 20 20 DE E OR 70 10 10 JR OT 1 PH HI AR WI [place] MA LL ID CY IA E M 12 OF F .5 CY MG NT HI CP AN A LE 00 08 08 2 30 30 EA 18 MC Ac VO 37 -1 -[address] 75 KE ti TH 81 8 8 00 SI 58 AR ve YR 80 20 20 DE E OX 30 10 10 JR IN 1 PH E [place] 50 MA LL CY IA MC M G OF F TA BL CY ET NT HI AN A 00 08 08 0 12 30 EA 18 MC Ac 59 -1 -[address] 71 KE ti 10 SI 12 AR ve 54 20 20 0 DE E 00 10 10 JR 1 PH AR WI MA LL CY IA M OF F CY NT HI AN A CL 00 08 08 0 90 30 EA 18 MC Ac ON 09 -0 -[address] 64 KE ti AZ 30 SI 45 AR ve EP 83 20 20 DE E AM 20 10 10 JR 1 PH 0. AR [place] 5 MA LL MG CY IA M TA OF F BL ET CY NT HI AN A NE 00 08 08 3 60 30 EA 18 MC Ac XI 18 -0 -[address] 64 KE ti UM 65 SI 88 AR ve 04 [address] 03 10 10 JR 1 PH 40 AR [place] MA LL MG CY IA M CA OF F PS UL CY E NT HI AN A SI 16 08 08 3 30 30 EA 18 MC Ac MV 71 -0 -[address] 64 KE ti 40 9 9 SI 89 AR ve TA 68 20 20 DE E TI 40 10 10 JR N 3 PH 40 AR [place] MA LL MG CY IA M TA OF F BL ET CY NT HI AN A EX 00 05 07 5 30 30 EA 17 MC Ac FO 07 -2 -[address] 70 KE ti RG 80 2 8 00 SI 24 AR ve E 48 20 20 DE E 10 91 10 10 JR -1 5 PH 60 AR [place] MA LL MG CY IA M TA OF F BL ET CY NT HI AN A LE 00 04 07 3 30 30 EA 17 MC Ac VO 37 -0 -[address] 10 KE ti TH 81 7- 0- 00 SI 12 AR ve YR 80 20 20 DE E OX 30 10 10 JR IN 1 PH E AR [place] 50 MA LL CY IA MC M G OF F TA BL CY ET NT HI AN A HY 00 05 07 3 30 30 EA [address] 59 -0 -[address] 50 KE ti OC 10 7- 0- 00 SI 77 AR ve HL 34 20 20 DE E [...] AZ 30 8- 8- 00 SI 89 AR ve EP 83 20 20 DE E [...] ti 90 2- 3- 00 SI 46 AR ve TA 00 20 20 DE E TI 61 10 10 JR N 7 PH 40 AR WI MA LL MG CY IA M TA OF F BL ET CY NT HI AN A NE 00 03 07 3 30 30 EA 16 Ac XI 18 -1 -[address] 82 KE ti UM 65 7- 3- 00 SI 12 AR ve 04 [address] 03 10 10 JR 1 PH 40 AR [place] MA LL MG CY IA M CA OF F PS UL CY E NT HI AN A EX 00 05 06 5 30 30 EA 17 MC Ac FO 07 -2 -[address] 70 KE ti RG 80 2- 7- 00 SI 24 AR ve E 48 20 20 DE E 10 91 10 10 JR -1 5 PH 60 AR [place] MA LL MG CY IA M TA OF F BL ET CY NT HI AN A 00 06 06 0 12 30 EA 17 MC Ac 59 -1 -[address] 97 KE ti 10 4- 4 00 SI 41 AR ve 54 20 20 0 DE E 00 10 10 JR 1 PH AR WI MA LL CY IA M OF F CY NT HI AN A LE 00 04 06 3 30 30 EA 17 MC Ac VO 37 -0 -[address] 10 KE ti TH 81 7 SI 12 AR ve YR 80 20 20 DE E OX 30 10 10 JR IN 1 PH E [place] 50 MA LL CY IA MC M G OF F TA BL CY ET NT HI AN A HY 00 05 06 3 30 30 EA [address] 59 -0 -[address] 50 KE ti OC 10 SI 77 AR ve HL 34 20 20 DE E [...] .0 ST 87 KE ti AZ 30 5 5 SI 85 AR ve EP 83 20 20 DE E AM 20 10 10 JR 1 PH 0. AR [place] 5 MA LL MG CY IA M TA OF F BL ET CY NT HI AN A NE 00 03 05 3 30 30 EA 16 MC Ac XI 18 -1 -[address] 82 KE ti UM 65 SI 12 AR ve 04 [address] 03 10 10 JR 1 PH 40 AR [place] MA LL MG CY IA M CA OF F PS UL CY E NT HI AN A SI 65 02 05 3 30 30 EA 16 MC Ac MV 86 -1 -[address] 35 KE ti 20 SI 46 AR ve TA 05 20 20 DE E TI 33 10 10 JR N 0 PH 40 AR [place] MA LL MG CY IA M TA OF F BL ET CY NT HI AN A EX 00 05 05 5 30 30 EA 17 MC Ac FO 07 -2 -[address] 70 KE ti RG 80 2- 2- 00 SI 24 AR ve E 48 20 20 DE E 10 91 10 10 JR -1 5 PH 60 AR [place] MA LL MG CY IA M TA OF F BL ET CY NT HI AN A 00 05 05 0 12 30 EA 17 MC Ac 59 -1 -[address] 61 KE ti 10 5 SI 05 AR ve 54 20 20 0 DE E 00 10 10 JR 1 PH AR [place] MA LL CY IA M OF F CY NT HI AN A LE 00 04 05 3 30 30 EA 17 Ac VO 37 -0 -[address] 10 KE ti TH 81 SI 12 AR ve YR 80 20 20 DE E OX 30 10 10 JR IN 1 PH E [place] 50 MA LL CY IA MC M G OF F TA BL CY ET NT HI AN A HY 00 05 05 3 30 30 EA [address] 59 -0 -[address] 50 KE ti OC 10 SI 77 AR ve HL 34 20 20 DE E OR 70 10 10 JR OT 1 PH HI AR [place] MA LL ID CY IA E M 12 OF F .5 CY MG NT HI CP AN A CL 00 05 05 0 90 30 EA 17 Ac ON 09 -0 -[address] 48 KE ti AZ 30 6 SI 98 AR ve EP 83 20 20 DE E AM 20 10 10 JR 1 PH 0. AR [place] 5 MA LL MG CY IA M TA OF F BL ET CY NT HI AN A SI 65 02 04 3 30 30 EA 16 Ac MV 86 -1 -[address] 35 KE ti 20 2 3- SI 46 AR ve TA 05 20 20 DE E TI 33 10 10 JR N 0 PH 40 AR [place] MA LL MG CY IA M TA OF F BL ET CY NT HI AN A NE 00 03 04 3 30 30 EA 16 Ac XI 18 -1 -[address] 82 KE ti UM 65 7 3 SI 12 AR ve 04 [address] 03 10 10 JR 1 PH 40 AR [place] MA LL MG CY IA M CA OF F PS UL CY E NT HI AN A 00 04 04 0 12 30 EA 17 MC Ac 59 -1 -[address] 20 KE ti 10 5 SI 16 AR ve 54 20 20 0 DE E 00 10 10 JR 1 PH AR [place] MA LL CY IA M OF F CY NT HI AN A CL 00 04 04 0 60 30 EA 17 MC Ac ON 09 -1 -[address] 20 KE ti AZ 30 5- 5- 00 SI 17 AR ve EP 83 20 20 DE E AM 20 10 10 JR 1 PH 0. AR [place] 5 MA LL MG CY IA M TA OF F BL ET CY NT HI AN A HY 00 01 04 3 30 30 EA [address] 59 -0 -[address] 81 KE ti OC 10 4- 7- 00 SI 52 AR ve HL 34 20 20 DE E OR 70 10 10 JR OT 1 PH HI AR [place] MA LL ID CY IA E M 12 OF F .5 CY MG NT HI CP AN A LE 00 04 04 3 30 30 EA 17 MC Ac VO 37 -0 -[address] 10 KE ti TH 81 7 7 SI 12 AR ve YR 80 20 20 DE E OX 30 10 10 JR IN 1 PH E [place] 50 MA LL CY IA MC M G OF F TA BL CY ET NT HI AN A NE 00 03 03 3 30 30 EA 16 MC Ac XI 18 -1 -[address] 82 KE ti UM 65 7 7 SI 12 AR ve 04 [address] 03 10 10 JR 1 PH 40 AR [place] MA LL MG CY IA M CA OF F PS UL CY E NT HI AN A 00 03 03 0 12 30 EA 16 MC Ac 59 -1 -[address] 81 KE ti 10 7 7 SI 83 AR ve 54 20 20 0 DE E 00 10 10 JR 1 PH AR [place] MA LL CY IA M OF F CY NT HI AN A CL 00 03 03 0 60 30 EA 16 MC Ac ON 09 1 -[address] 81 KE ti AZ 30 7 7 SI 84 AR ve EP 83 20 20 DE E AM 20 10 10 JR 1 PH 0. AR [place] 5 MA LL MG CY IA M TA OF F BL ET CY NT HI AN A SI 65 02 03 3 30 30 EA 16 MC Ac MV 86 -1 -[address] 35 KE ti 20 2- 7- SI 46 AR ve TA 05 20 20 DE E TI 33 10 10 JR N 0 PH 40 AR [place] MA LL MG CY IA M TA OF F BL ET CY NT HI AN A LE 00 12 03 3 30 30 EA 15 MC Ac VO 37 -0 -[address] 38 KE ti TH 81 2 8 SI 79 AR ve YR 80 20 20 DE E OX 30 09 10 JR IN 1 PH E [place] 50 MA LL CY IA MC M G OF F TA BL CY ET NT HI AN A HY 00 01 03 3 30 30 EA [address] 59 -0 -[address] 81 KE ti OC 10 4 8 SI 52 AR ve HL 34 20 20 DE E OR 70 10 10 JR OT 1 PH HI AR [place] MA LL ID CY IA E M 12 OF F .5 CY MG NT HI CP AN A CL 00 02 02 00 60 30 EA 16 MC Ac ON 09 -1 -[address] 37 KE ti AZ 30 5 SI 94 AR ve EP 83 20 20 DE E AM 20 10 10 JR 1 PH 0. AR [place] 5 MA LL MG CY IA M TA OF F BL CY ET NT HI AN A 00 12 30 00 12 30 EA 16 MC Ac 59 -1 -[address] 37 KE ti 10 5 6 SI 95 AR ve 54 20 20 0 DE E 00 10 10 JR 1 PH AR [place] MA LL CY IA M OF F CY NT HI AN A SI 65 02 02 00 30 30 EA 16 MC Ac MV 86 -1 -[address] 35 KE ti 20 SI 46 AR ve TA 05 20 20 DE E TI 33 10 10 JR N 0 PH 40 AR [place] MA LL MG CY IA M TA OF F BL CY ET NT HI AN A NE 00 08 02 05 30 30 EA 14 MC Ac XI 18 -3 -[address] 06 KE ti UM 65 SI 00 AR ve 04 [address] 03 09 10 JR 1 PH 40 AR [place] MA LL MG CY IA M CA OF F PS CY UL NT E HI AN A LE 00 12 02 02 30 30 EA 15 MC Ac VO 37 -0 -[address] 38 KE ti TH 81 2 SI 79 AR ve YR 80 20 20 DE E OX 30 09 10 JR IN 1 PH E [place] 50 MA LL CY IA MC M G OF F TA CY BL NT ET HI AN A HY 00 01 02 01 30 30 EA [address] 59 -0 -[address] 81 KE ti OC 10 4- SI 52 AR ve HL 34 20 20 DE E OR 70 10 10 JR OT 1 PH HI AR [place] MA LL ID CY IA E M 12 OF F .5 CY NT MG HI AN CP A 00 11 28 00 12 30 EA 15 MC Ac 59 -1 -[address] 95 KE ti 10 4- 8- 00 SI 82 AR ve 54 20 20 0 DE E 00 10 10 JR 1 PH AR [place] MA LL CY IA M OF F CY NT HI AN A SI 65 09 01 03 30 30 EA 14 MC Ac MV 86 -3 -[address] 49 KE ti 20 0- 8- 00 SI 48 AR ve TA 05 20 20 DE E TI 33 09 10 JR N 0 PH 40 AR [place] MA LL MG CY IA M TA OF F BL CY ET NT HI AN A CL 00 01 00 60 30 EA 15 MC Ac ON 09 -1 -[address] 95 KE ti AZ 30 4- 8- 00 SI 83 AR ve EP 83 20 20 DE E AM 20 10 10 JR 1 PH 0. [place] 5 MA LL MG CY IA M TA OF F BL CY ET NT HI AN A LE 00 12 01 01 30 30 EA 15 MC Ac VO 37 -0 -[address] 38 KE ti TH 81 2- 4 00 SI 79 AR ve YR 80 20 20 DE E OX 30 09 10 JR IN 1 PH E [place] 50 MA LL CY IA MC M G OF F TA CY BL NT ET HI AN A HY 00 11 28 00 30 30 EA [address] 59 -0 -[address] 81 KE ti OC 10 4 4 SI 52 AR ve HL 34 20 20 DE E [...] UM 65 1- 4- 00 SI 00 AR ve 04 [address] 03 09 10 JR 1 PH 40 AR [place] MA LL MG CY IA M CA OF F PS CY UL NT E HI AN A CL 00 12 12 00 60 30 EA 15 MC Ac ON 09 - -[address] 56 KE ti AZ 30 4 SI 09 AR ve EP 83 20 20 DE E AM 20 09 09 JR 1 PH 0. [place] 5 MA LL MG CY IA M TA OF F BL CY ET NT HI AN A 00 12 12 00 12 30 EA 15 MC Ac 59 -1 -[address] 56 KE ti 10 4- SI 08 AR ve 54 20 20 0 DE E 00 09 09 JR 1 PH AR [place] MA LL CY IA M OF F CY NT HI AN A SI 65 09 12 02 30 30 EA 14 MC Ac MV 86 -3 -[address] 49 KE ti 20 0- 7- 00 SI 48 AR ve TA 05 20 20 DE E TI 33 09 09 JR N 0 PH 40 AR [place] MA LL MG CY IA M TA OF F BL CY ET NT HI AN A HY 00 07 12 04 30 30 EA [address] 59 -1 -[address] 47 KE ti OC 10 4- 7- 00 SI 77 AR ve HL 34 20 20 DE E OR 70 09 09 JR OT 1 PH HI AR [place] MA LL ID CY IA E M 12 OF F .5 CY NT MG HI AN CP A NE 00 08 12 03 30 30 EA 14 MC Ac XI 18 -3 -[address] 06 KE ti UM 65 1 7 SI 00 AR ve 04 [address] 03 09 09 JR 1 PH 40 AR [place] MA LL MG CY IA M CA OF F PS CY UL NT E HI AN A LE 00 12 12 00 30 30 EA 15 MC Ac VO 37 -0 -[address] 38 KE ti TH 81 2- 7- 00 SI 79 AR ve YR 80 20 20 DE E OX 30 09 09 JR IN 1 PH E [place] 50 MA LL CY IA MC M G OF F TA CY BL NT ET HI AN A CL 00 11 12 00 60 30 EA 15 MC Ac ON 09 -1 -[address] 13 KE ti AZ 30 4- 3- 00 SI 29 AR ve EP 83 20 20 DE E AM 20 09 09 JR 1 PH 0. AR [place] 5 MA LL MG CY IA M TA OF F BL CY ET NT HI AN A LE 00 07 11 03 30 30 EA 13 MC Ac VO 37 -2 -[address] 63 KE ti TH 81 7- 9- 00 SI 09 AR ve YR 80 20 20 DE E OX 30 09 09 JR IN 1 PH E [place] 50 MA LL CY IA MC M G OF F TA CY BL NT ET HI AN A SI 65 09 11 01 30 30 EA 14 MC Ac MV 86 -3 -[address] 49 KE ti 20 0- 9- 00 SI 48 AR ve TA 05 20 20 DE E TI 33 09 09 JR N 0 PH 40 AR [place] MA LL MG CY IA M TA OF F BL CY ET NT HI AN A NE 00 08 11 02 30 30 EA 14 MC Ac XI 18 -3 -[address] 06 KE ti UM 65 1- 9- 00 SI 00 AR ve 04 [address] 03 09 JR 1 PH 40 AR [place] MA LL MG CY IA M CA OF F PS CY UL NT E HI AN A HY 00 07 11 03 30 30 EA [address] 59 -1 -[address] 47 KE ti OC 10 4- 5- 00 SI 77 AR ve HL 34 20 20 DE E OR 70 09 09 JR OT 1 PH HI AR [place] MA LL ID CY IA E M 12 OF F .5 CY NT MG HI AN CP A 00 10 10 00 12 30 EA 14 Ac 59 -1 -[address] 69 KE ti 10 4- 2- 00 SI 56 AR ve 54 20 20 0 DE E 00 09 JR 1 PH AR [place] MA LL CY IA M OF F CY NT HI AN A CL 00 10 10 00 60 30 EA 14 Ac ON [address] 69 KE ti AZ 30 4- 2- 00 SI 57 AR ve EP 83 20 20 DE E AM 20 09 JR 1 PH 0. AR [place] 5 MA LL MG CY IA M TA OF F BL CY ET NT HI AN A NE 00 08 10 01 30 30 EA 14 Ac XI 18 -3 -[address] 06 KE ti UM 65 1- 2- 00 SI 00 AR ve 04 [address] 03 09 JR 1 PH 40 AR [place] MA LL MG CY IA M CA OF F PS CY UL NT E HI AN A SI 65 09 10 00 30 30 EA 14 Ac MV 86 -3 -[address] 49 KE ti 20 0- 8- 00 SI 48 AR ve TA 05 20 20 DE E TI 33 09 09 JR N 0 PH 40 AR [place] MA LL MG CY IA M TA OF F BL CY ET NT HI AN A LE 00 07 10 02 30 30 EA 13 MC Ac VO 37 -2 -[address] 63 KE ti TH 81 7- 8- 00 SI 09 AR ve YR 80 20 20 DE E OX 30 09 JR IN 1 PH E AR [place] 50 MA LL CY IA MC M G OF F TA CY BL NT ET HI AN A CL 00 09 09 00 60 30 EA 14 MC Ac ON [address] 23 KE ti AZ 30 4- 4- 00 SI 85 AR ve EP 83 20 20 DE E AM 20 09 09 JR 1 PH 0. AR [place] 5 MA LL MG CY IA M TA OF F BL CY ET NT HI AN A 00 09 09 00 12 30 EA 14 MC Ac 59 -1 -[address] 23 KE ti 10 4- 4- 00 SI 84 AR ve 54 20 20 0 DE E 00 09 09 JR 1 PH AR [place] MA LL CY IA M OF F CY NT HI AN A HY 00 07 09 02 30 30 EA [address] 59 -1 -[address] 47 KE ti OC 10 4- 4- 00 SI 77 AR ve HL 34 20 20 DE E OR 70 09 09 JR OT 1 PH HI AR [place] MA LL ID CY IA E M 12 OF F .5 CY NT MG HI AN CP A LE 00 07 09 01 30 30 EA 13 MC Ac VO 37 -2 -[address] 63 KE ti TH 81 7- 0- 00 SI 09 AR ve YR 80 20 20 DE E OX 30 09 JR IN 1 PH E [place] 50 MA LL CY IA MC M G OF F TA CY BL NT ET HI AN A NE 00 08 09 00 30 30 EA 14 MC Ac XI 18 -3 -[address] 06 KE ti UM 65 1- 0- 00 SI 00 AR ve 04 [address] 03 09 JR 1 PH 40 AR [place] MA LL MG CY IA M CA OF F PS CY UL NT E HI AN A CL 00 08 08 00 60 30 EA 13 MC Ac ON 09 -1 -[address] 84 KE ti AZ 30 4- 7- 00 SI 73 AR ve EP 83 20 20 DE E AM 20 09 09 JR 1 PH 0. AR [place] 5 MA LL MG CY IA M TA OF F BL CY ET NT HI AN A HY 00 07 08 01 30 30 EA [address] 59 -1 -[address] 47 KE ti OC 10 4- 7- 00 SI 77 AR ve HL 34 20 20 DE E OR 70 09 09 JR OT 1 PH HI AR [place] MA LL ID CY IA E M 12 OF F .5 CY NT MG HI AN CP A 00 08 08 00 12 30 EA 13 MC Ac 59 -1 -[address] 84 KE ti 10 4- 7- 00 SI 74 AR ve 54 20 20 0 DE E 00 09 09 JR 1 PH AR [place] MA LL CY IA M OF F CY NT HI AN A SI 65 05 08 03 30 30 EA 12 MC Ac MV 86 -0 -[address] 56 KE ti 20 1- 7- 00 SI 59 AR ve TA 05 20 20 DE E TI 33 09 09 JR N 0 PH 40 AR [place] MA LL MG CY IA M TA OF F BL CY ET NT HI AN A LE 00 07 08 00 30 30 EA 13 MC Ac VO 37 -2 -[address] 63 KE ti TH 81 7- 3- 00 SI 09 AR ve YR 80 20 20 DE E OX 30 09 09 JR IN 1 PH E [place] 50 MA LL CY IA MC M G OF F TA CY BL NT ET HI AN A NE 00 04 08 03 30 30 EA 12 MC Ac XI 18 -1 -[address] 35 KE ti UM 65 5- 3- 00 SI 57 AR ve 04 [address] 03 09 09 JR 1 PH 40 AR [place] MA LL MG CY IA M CA OF F PS CY UL NT E HI AN A SI 65 05 07 02 30 30 EA 12 MC Ac MV 86 -0 -[address] 56 KE ti 20 1- 0- 00 SI 59 AR ve TA 05 20 20 DE E TI 33 09 09 JR N 0 PH 40 AR [place] MA LL MG CY IA M TA OF F BL CY ET NT HI AN A HY 00 07 07 00 30 30 EA [address] 59 -1 -[address] 47 KE ti OC 10 4- 0- 00 SI 77 AR ve HL 34 20 20 DE E OR 70 09 09 JR OT 1 PH HI AR [place] MA LL ID CY IA E M 12 OF F .5 CY NT MG HI AN CP A 00 07 07 00 12 30 EA 13 MC Ac 59 -1 -[address] 50 KE ti 10 5- 0- 00 SI 62 AR ve 54 20 20 0 DE E 00 09 09 JR 1 PH AR [place] MA LL CY IA M OF F CY NT HI AN A CL 00 05 07 02 60 30 EA 12 MC Ac ON 09 -1 -[address] 75 KE ti AZ 30 5- 0- 00 SI 71 AR ve EP 83 20 20 DE E AM 20 09 09 JR 1 PH 0. AR [place] 5 MA LL MG CY IA M TA OF F BL CY ET NT HI AN A NE 00 04 07 02 30 30 EA 12 MC Ac XI 18 -1 -[address] 35 KE ti UM 65 5- 6- 00 SI 57 AR ve 04 [address] [...] OC 10 2- 2- 00 SI 08 AR ve HL 34 20 20 DE E [...] CL 40 3- 2- 00 SI 20 AR ve OP 06 20 20 DE E RA 20 09 09 JR AR 6 PH DE AR WI MA LL 10 CY IA M MG OF F CY TA NT BL HI ET AN A CL 00 05 07 01 60 30 EA 12 MC Ac ON 09 -1 -[address] 75 KE ti AZ 30 5- 2- 00 SI 71 AR ve EP 83 20 20 DE E AM 20 09 09 JR 1 PH 0. AR [place] 5 MA LL MG CY IA M TA OF F BL CY ET NT HI AN A 00 06 07 00 12 30 EA 13 MC Ac 59 -1 -[address] 16 KE ti 10 6- 2- 00 SI 06 AR ve 54 20 20 0 DE E [...] ti 20 1- 8- 00 SI 59 AR ve TA 05 20 20 DE E TI 33 09 09 JR N 0 PH 40 AR [place] MA LL MG CY IA M TA OF F BL CY ET NT HI AN A 00 05 06 00 12 30 EA 12 MC Ac 59 -1 -[address] 77 KE ti 10 8- 4- 00 SI 89 AR ve 54 20 20 0 DE E 00 09 09 JR 1 PH AR [place] MA LL CY IA M OF F CY NT HI AN A NE 00 04 06 01 30 30 EA 12 MC Ac XI 18 -1 -[address] 35 KE ti UM 65 5- 4- 00 SI 57 AR ve 04 [address] 03 09 09 JR 1 PH 40 AR [place] MA LL MG CY IA M CA OF F PS CY UL NT E HI AN A LE 00 03 06 02 30 30 EA 11 NG Ac VO 37 -1 -[address] 90 RV ti TH 81 6- 4 00 SI 92 EY ve YR 80 20 20 DE OX 30 09 09 ANJELICA IN 1 PH DI E AR 50 MA CY MC G OF TA CY BL NT ET HI AN A ME 60 05 05 00 30 30 EA 12 MC Ac LO 50 -1 -[address] 75 KE ti XI 52 5- 1- 00 SI 72 AR ve CA 55 20 20 DE E M 40 09 09 JR 15 1 PH AR WI MG MA LL CY IA TA M BL OF F ET CY NT HI AN A CL 00 05 05 00 60 30 EA 12 MC Ac ON 09 -1 -[address] 75 KE ti AZ 30 5- 1 SI 71 AR ve EP 83 20 20 DE E AM 20 09 09 JR 1 PH 0. AR [place] 5 MA LL MG CY IA M TA OF F BL CY ET NT HI AN A HY 00 05 05 00 30 30 EA [address] 59 -1 -[address] 72 KE ti OC 10 2- 1 SI 08 AR ve HL 34 20 20 DE E OR 70 09 09 JR OT 1 PH HI AR [place] MA LL ID CY IA E M 12 OF F .5 CY NT MG HI AN CP A SI 65 05 05 00 30 30 EA 12 MC Ac MV 86 -0 -[address] 56 KE ti 20 1- 7- 00 SI 59 AR ve TA 05 20 20 DE E TI 33 09 09 JR N 0 PH 40 AR [place] MA LL MG CY IA M TA OF F BL CY ET NT HI AN A NE 00 04 04 00 30 30 EA 12 MC Ac XI 18 -1 -[address] 35 KE ti UM 65 5- 3- 00 SI 57 AR ve 04 [address] 03 09 09 JR 1 PH 40 AR [place] MA LL MG CY IA M CA OF F PS CY UL NT E HI AN A ME 49 03 04 01 30 30 EA 11 NG Ac TO 88 -1 -[address] 90 RV ti CO 40 6- 3- 00 SI 94 EY [...] ET HI AN A HY 00 02 04 [...] MG HI AN CP A CL 00 04 04 00 60 [...] -1 -[address] 90 RV ti CO 40 6- 6- 00 SI 94 EY [...] ti 20 6- 6- 00 SI 41 AR ve TA 05 20 20 DE E TI 33 08 09 JR N 0 PH 40 AR WI MA LL MG CY IA M TA OF F BL CY ET NT HI AN A NE 00 03 03 00 30 30 EA 11 MC Ac XI 18 -1 -[address] 83 KE ti UM 65 0- 6- 00 SI 05 AR ve 04 [address] 03 09 09 JR 1 PH 40 AR [place] MA LL MG CY IA M CA OF F PS CY UL NT E HI AN A 00 02 02 00 12 30 EA 11 MC Ac 59 -1 -[address] 48 KE ti 10 6- 6- 00 SI 90 AR ve 54 20 20 0 DE E 00 09 09 JR 1 PH AR WI MA LL CY IA M OF F CY NT HI AN A ME 49 11 02 03 30 30 EA 10 MC Ac TO 88 -0 -[address] 14 KE ti CO 40 5- 6- 00 SI 65 AR ve OL 40 20 20 DE E OL 50 08 09 JR 1 PH GALLAGHER AR WI CC MA LL CY IA ER M OF F 50 CY NT MG HI AN TA A B SI 65 10 02 04 30 30 EA 99 MC Ac MV 86 -0 -[address] 75 KE ti 20 6- 6- 00 SI 41 AR ve TA 05 20 20 DE E TI 33 08 09 JR N 0 PH 40 AR [place] MA LL MG CY IA M TA OF F BL CY ET NT HI AN A CL 00 02 02 00 60 30 EA 11 MC Ac ON 09 -1 -[address] 48 KE ti AZ 30 6- 6- 00 SI 89 AR ve EP 83 20 20 DE E AM 20 09 09 JR 1 PH 0. AR [place] 5 MA LL MG CY IA M TA OF F BL CY ET NT HI AN A LE 00 01 02 01 30 30 EA 11 MC Ac VO 37 -1 -[address] 07 KE ti TH 81 3- 6- 00 SI 93 AR ve YR 80 20 20 DE E [...] UM 65 6- 2- 00 SI 45 AR ve 04 [address] 08 09 JR 1 PH 40 AR [place] MA LL MG CY IA M CA OF F PS CY UL NT E HI AN A LE 00 01 01 00 30 30 EA 11 MC Ac VO 37 -1 -[address] 07 KE ti TH 81 3- 0- 00 SI 93 AR ve YR 80 20 20 DE E [...] UM 65 6- 5- 00 SI 45 AR ve 04 [address] 03 08 09 JR 1 PH 40 AR [place] MA LL MG CY IA M CA OF F PS CY UL NT E HI AN A SI 65 10 01 03 30 30 EA 99 MC Ac MV 86 -0 -[address] 75 KE ti 20 6- 5- 00 SI 41 AR ve TA 05 20 20 DE E [...] -0 -[address] 14 KE ti CO 40 5- 5- 00 SI 65 AR ve OL 40 20 20 DE E OL 50 08 09 JR 1 PH GALLAGHER AR [place] CC MA LL CY IA ER M OF F 50 CY NT MG HI AN TA A B LE 00 11 01 01 30 30 EA 10 MC Ac VO 37 -1 -[address] 21 KE ti TH 81 0- 1- 00 SI 64 AR ve YR 80 20 20 DE E [...] ti 20 6- 8- 00 SI 41 AR ve TA 05 20 20 DE E TI 33 08 08 JR N 0 PH 40 AR [place] MA LL MG CY IA M TA OF F BL CY ET NT HI AN A 60 12 12 00 12 3 EA 10 MC Ac 25 -0 -[address] 54 KE ti 80 4- 8- 00 SI 81 AR ve 23 20 20 0 DE E 91 08 08 JR 6 PH AR [place] MA LL CY IA M OF F CY NT HI AN A NE 00 08 12 03 30 30 EA 99 MC Ac XI 18 -2 -[address] 22 KE ti UM 65 6- 8- 00 SI 45 AR ve 04 [address] 03 08 08 JR 1 PH 40 AR [place] MA LL MG CY IA M CA OF F PS CY UL NT E HI AN A ME 49 11 12 01 30 30 EA 10 MC Ac TO 88 -0 -[address] 14 KE ti CO 40 5- 8- 00 SI 65 AR ve OL 40 20 20 DE E OL 50 08 08 JR 1 PH GALLAGHER AR WI CC MA LL CY IA ER M OF F 50 CY NT MG HI AN TA A B CL 00 10 12 01 60 30 EA 99 MC Ac ON 09 -[address] 81 KE ti AZ 30 0- 8- 00 SI 89 AR ve EP 83 20 20 DE E [...] ti 20 6- 0- 00 SI 41 AR ve TA 05 20 20 DE E TI 33 08 08 JR N 0 PH 40 AR [place] MA LL MG CY IA M TA OF F BL CY ET NT HI AN A ME 49 11 11 00 30 30 EA 10 MC Ac TO 88 -0 -[address] 14 KE ti CO 40 5- 0- 00 SI 65 AR ve OL 40 20 20 DE E OL 50 08 08 JR 1 PH GALLAGHER AR WI CC MA LL CY IA ER M OF F 50 CY NT MG HI AN TA A B CL 00 10 11 00 60 30 EA 99 MC Ac ON -[address] 81 KE ti AZ 30 0- 0- 00 SI 89 AR ve EP 83 20 20 DE E AM 20 08 08 JR 1 PH 0. AR [place] 5 MA LL MG CY IA M TA OF F BL CY ET NT HI AN A LE 00 11 11 00 30 30 EA 10 MC Ac VO 37 -1 -[address] 21 KE ti TH 81 0- 0- 00 SI 64 AR ve YR 80 20 20 DE E OX 30 08 08 JR IN 1 PH E [place] 50 MA LL CY IA MC M G OF F TA CY BL NT ET HI AN A NE 00 08 11 02 30 30 EA 99 MC Ac XI 18 -2 -[address] 22 KE ti UM 65 6- 7- 00 SI 45 AR ve 04 [address] [...] -0 -[address] 58 t ti CO 40 1- 3- 00 SI 13 Av [...] ET NT HI AN A EN 60 09 09 [...] E HI AN A LI 00 04 09 04 30 30 EA 97 No Ac PI 07 -2 -[address] 74 t ti TO 10 5- 1- 00 SI 98 Av ve R 15 20 20 DE ai 10 52 08 08 la 3 PH bl MG AR e MA TA CY BL ET OF CY NT HI AN A ME 49 07 09 02 30 30 EA 98 No Ac TO 88 -0 -[address] 58 t ti CO 40 1- 1- 00 SI 13 Av ve OL 40 20 20 DE ai OL 50 08 08 la 1 PH bl GALLAGHER AR e CC MA CY ER OF 50 CY NT MG HI AN TA A B TO 00 07 08 01 30 30 EA 98 No Ac CO 18 -0 -[address] 58 t [...] ET HI AN A CL 00 08 08 00 60 30 EA 98 No Ac ON 09 -0 -[address] 99 t ti AZ 30 7- 4- 00 SI 54 Av ve EP 83 20 20 DE ai AM 20 08 08 la 1 PH bl 0. AR e 5 MA MG CY TA OF BL CY ET NT HI AN A CO 37 08 08 00 30 30 EA 98 No Ac IL 00 -0 -[address] 92 t ti OS 00 1- 4- 00 SI 56 Av ve EC 45 20 20 DE ai 50 08 08 la OT 2 PH bl C AR e 20 MA .6 CY MG OF CY TA NT BL HI ET AN A LI 00 04 08 03 30 30 EA 97 No Ac PI 07 -2 -[address] 74 t ti TO 10 5- 4 00 SI 98 Av ve R 15 20 20 DE ai 10 52 08 08 la 3 PH bl MG AR e MA TA CY BL ET OF CY NT HI AN A CL 00 07 07 00 60 30 EA 98 No Ac ON 09 -0 -[address] 66 t ti AZ 30 9- 7- 00 SI 04 Av ve EP 83 20 20 DE ai AM 20 08 08 la 1 PH bl 0. AR e 5 MA MG CY TA OF BL CY ET NT HI AN A EN 60 07 07 00 12 30 EA 98 No Ac DO 95 -0 -[address] 66 t ti CE 10 9- 7 00 SI 03 Av ve T 70 20 20 0 DE ai 7. 07 08 08 la 5- 0 PH bl 32 AR e 5 MA MG CY TA OF BL CY ET NT HI AN A CO 37 04 07 03 30 30 EA [...] CY NT HI AN A LI 00 04 07 02 30 30 EA 97 No Ac PI 07 -2 -[address] 74 t ti TO 10 5- 7 00 SI 98 Av ve R 15 20 20 DE ai 10 52 08 08 la 3 PH bl MG AR e MA TA CY BL ET OF CY NT HI AN A TO 00 07 07 00 30 30 EA 98 No Ac CO 18 -0 -[address] 58 t [...] ST 66 t ti TH 81 9- 7 00 SI 05 Av ve YR 80 [...] 9- 7- 00 SI 06 Av ve CO 50 20 20 DE ai AM 98 08 08 la 8 PH bl HB AR e R MA 40 CY MG OF CY TA NT BL HI ET AN A CL 00 06 07 00 [...] CY BL NT ET HI AN A CO 37 04 06 02 30 30 EA [...] 01 30 30 EA 97 No Ac CO 18 -2 -[address] 75 t ti OL 61 5- 5- 00 SI 04 Av ve 09 20 20 DE ai XL 00 08 08 la 5 PH bl 50 AR e MA MG CY TA OF BL CY ET NT HI AN A LI 00 04 06 30 30 EA 97 No Ac PI [...] BL CY ET NT HI AN A CO 37 04 05 30 30 EA 97 No Ac IL [...] HI AN A LE 00 03 05 30 30 EA 97 No Ac VO 37 -2 -[address] 38 t ti TH 81 7- 2- 00 SI 66 Av ve YR 80 20 20 DE ai OX 30 08 08 la IN 1 PH bl E AR e 50 MA CY MC G OF TA CY BL NT ET HI AN A TO 00 03 02 00 30 30 EA 97 No Ac CO 18 -2 -[address] 75 t ti OL 61 5- 8- 00 SI 04 Av ve 09 20 20 DE ai XL 00 08 08 la 5 PH bl 50 AR e MA MG CY TA OF BL CY ET NT HI AN A EN 60 04 05 12 30 EA 97 No Ac DO [...] CY ET NT HI AN A LI 63 07 [...] 7- 0- 00 SI 65 Av ve CO 34 20 20 DE ai AM 30 08 08 la 1 PH bl HB AR e R MA 20 CY MG OF CY TA NT BL HI ET AN A CO 37 04 04 00 30 30 EA 97 No Ac IL 00 -0 -[address] 45 t ti OS 00 2- 0- 00 SI 42 Av ve EC 45 20 20 DE ai 50 08 08 la OT 2 PH bl C AR e 20 MA .6 CY MG OF CY TA NT BL HI ET AN A ME 57 03 04 00 60 30 EA 97 No Ac TO 66 -2 -[address] 38 t ti CO 40 7- 0- 00 SI 67 Av ve OL 50 20 20 DE ai OL 61 08 08 la 8 PH bl TA AR e RT MA RA CY TE OF 25 CY NT MG HI AN TA A B LE 00 03 04 00 30 30 EA 97 No Ac VO 37 -2 -[address] 38 t ti TH 81 7- 0- 00 SI 66 Av ve YR 80 20 20 DE ai OX 30 08 08 la IN 1 PH bl E AR e 50 MA CY MC G OF TA CY BL NT ET HI AN A 52 02 04 00 [...] 7- 5- 00 SI 25 Av ve CO 02 20 20 DE ai ED 20 [...] 19:30 DIPSTIC K URINE NEGATIV NEG complet BILIRUB 013 E ed [...] SerPl-m 013 gm/dL ed Cnc 19:00 Albumin 3.8 3.4-5.0 complet 013 gm/dL ed SerPl-m [...] with AUTO DIFF (01-25-2013 19:00) WBC # 01-25-2 5.3 4.8-10. complet Bld 013 K/MM3 8 ed Auto 19:00 RBC # 01-25-2 4.62 4.6-6.2 complet Bld 013 M/mm3 ed Auto 19:00 Hgb 13.5 14.1-18 complet Bld-mCn 013 g/dL .0 ed c 19:00 Hct Fr 40.8 % 42.0-52 complet Bld 013 .0 [...] % 10-50 complet 013 ed 19:00 Monocyt 2 6.5 % 1.7-9.3 complet es Fr 013 [...] Procedure DOS Code Location Performer Comment CREATININ 12118 [facility] INC INC COLLECTIO 35565 [facility] S[facility] N VENOUS 7 [facility] [place] [address] [facility] UREA [facility] NITROGEN INC INC QUANTITAT RUPA DRUG TEST 49696 [facility] KATE PRSMV 7 NORMA TOWNSEND MD,PSC CHEMISTRY ANALYZERS DRUG TEST 16051 [facility] PRSMV [facility] QUAL DIR INC INC OPTICAL OBS PER DAY DRUG 56390 [facility] SCREENING 7 [facility] INC INC BENZODIAZ EPINES 1-12 ECG 94718 [facility] ROUTINE [facility] ECG INC INC W/LEAST 12 LDS TRCG ONLY W/O I&R PRQ 16126 [facility] TRLUML 7 PHYSICIAN CORONARY S GROUP STENT W/ANGIO ONE ART/BRNCH CATH PLMT 66163 [facility] L HRT & 7 PHYSICIAN ARTS S GROUP W/NJX & ANGIO IMG S&I CV STRS 24599 [facility] TST 7 [facility] XERS&/OR INC INC RX CONT ECG TRCG ONLY TECHNETIU A9502 [facility] M TC-99M 7 [facility] TETROFOSM INC INC IN DX PER STUDY DOSE MYOCARDIA 03395 [facility] L SPECT 7 [facility] MULTIPLE INC INC STUDIES ECHO 80526 [facility] TTHRC R-T 7 [facility] 2D INC INC W/WOM-MOD E COMPL SPEC&COLR D ECG 18324 [facility] ECG INC INC W/LEAST 12 LDS TRCG ONLY W/O I&R DRUG TEST 08557 [facility] KATE PRSMV 7 NORMA TOWNSEND MD,PSC CHEMISTRY ANALYZERS COMPREHEN 80888 [facility]ATE SIVE 7 BOBO TOWNSEND MD,PSC PANEL BILIRUBIN 41050 [facility] DIRECT 7 MD KRISTIAN,[place] [address] [facility] PHOSPHORU 7 Myron TOWNS[place] [address] [facility] GLUTAMYLT 7 BEKAH TOWNSEND MD,PSC GAMMA BLOOD 23426 [facility] COUNT 7 DUKE TOWNSEND MD,PSC AUTO&AUTO DIFRNTL WBC TECHNETIU A9537 [facility] M TC-99M 7 [facility] MEBROFENI INC INC N DX UP TO 15 MCI HEPATOBIL 37600 [facility] SYST [facility] IMAG INC INC INC GB W/PHARMA INTERVENJ ECG 14194 [facility] R[facility]INE [facility] ECG INC INC W/LEAST 12 LDS TRCG ONLY W/O I&R ECG 64078 [facility] ROUTINE [facility] ECG INC INC W/LEAST 12 LDS TRCG ONLY W/O I&R COMPREHEN 17305 [facility] SIVE [facility] METABOLIC INC INC PANEL THER 45287 [facility] PROPH/DX 7 [facility] NJX IV INC INC PUSH SINGLE/1S T SBST/DRUG FINAL G9551 [facility] REPR ABD 7 MEDICAL IMAG STS IMAGING W/O ASS INCIDNT FND LES NTD: FINAL G9638 [facility] REPORTS 7 MEDICAL W/O DOC IMAGING 1/[place] [address] [facility] AMYLASE 7 [facility] INC INC BLOOD 25143 [facility] S[facility] COUNT [facility] COMPLETE INC INC AUTO&[place] [address] [facility] TROPONIN 7 [facility] QUANTITAT INC INC RUPA CREATINE 03575 [facility] KINASE MB 7 [facility] [place] [address] [facility] LIPASE 7 [place] [address] [facility] S[facility] ABDOMEN & 7 [facility] PELVIS INC INC W/O CONTRAST MATERIAL ECG 84055 [facility] MCCLAIN ROUTINE 7 [facility] W/LEAST P 12 LDS I&R ONLY CREATINE 99090 [facility] KINASE 7 [facility] TOTAL INC INC RADIOLOGI 63632 [facility] SUE C EXAM 7 [facility] CHEST 2 INC INC VIEWS FRONTAL&L ATERAL CT LUMBAR 84625 LEONEL LICEA SPINE 7 MEDICAL W/O IMAGING CONTRAST ASS MATERIAL BLOOD 14978 [facility] COUNT 7 [facility] COMPLETE INC INC AUTO&[place] [address] LEONEL LICEA ABDOMEN & 7 MEDICAL PELVIS IMAGING W/O ASS CONTRAST MATERIAL FINAL G9638 LEONEL LICEA REPORTS 7 MEDICAL W/O DOC IMAGING 1/MORE ASS DOSE REDUCTION TECH FINAL G9551 LEONEL LICEA REPR ABD 7 MEDICAL IMAG STS IMAGING W/O ASS INCIDNT FND LES NTD: URNLS DIP 64828 [facility]UE [facility] STICK/TAB INC INC LET REAGENT AUTO MICROSCOP Y COMPREHEN 49105 [facility] SIVE 7 [facility] METABOLIC INC INC PANEL CHIROPRAC 51820 EMERSON NATHAN TIC 7 MANIPULAT CHIROPRAC RUPA TX TIC CENTE SPINAL 3-4 REGIONS RADEX 79028 EMERSON JORGES SPINE 7 CERVICAL CHIROPRAC 2 OR 3 TIC CENTE VIEWS APPL 01016 EMERSON NATHAN MODALITY 7 1/> AREAS CHIROPRAC ELEC TIC CENTE STIMJ UNATTENDE D RADEX 03538 EMERSON JORGES SPINE 7 LUMBOSACR CHIROPRAC AL 2/3 TIC CENTE VIEWS DRUG TEST 11076 [facility]UE PRSMV 7 [facility] QUAL DIR INC INC OPTICAL OBS PER DAY DRUG TEST 02917 LAVINIA KATE PRSMV 7 NORMA TOWNSEND MD,[facility] CHEMISTRY ANALYZERS RADEX 83405 LINETTE VERMAON ABDOMEN 7 [facility] COMPL INC INC W/DCBTS&/ ERC VIEWS RADIOLOGI 52909 LEONEL MILLERUTCHER C EXAM 7 MEDICAL CHEST 2 IMAGING VIEWS ASS FRONTAL&L ATERAL IAADIADOO 96871 [facility]UE 7 [facility] INFLUENZA INC INC DRUG TEST G0480 [facility] DEFINITV [address] [facility] [address] [address] [address] ID INC INC METH P DAY 1-7 DRUG CL DRUG TEST 61792 [facility] SUE PRSMV 7 [facility] QUAL DIR INC INC OPTICAL OBS PER DAY BASIC 12999 [facility] SUE METABOLIC 7 [facility] PANEL INC INC CALCIUM TOTAL HEPATIC 47772 LIN[facility] SUE FUNCTION 7 [facility] PANEL INC INC LIPID 98407 [facility] SUE PANEL 7 [facility] INC INC COLLECTIO 42444 LIN[facility] SUE N VENOUS 7 [facility] BLOOD INC INC VENIPUNCT URE HEMOGLOBI 69975 [facility] SUE N 7 [facility] GLYCOSYLA INC INC SONG A1C ECG 81132 [facility] SUE ROUTINE 7 [facility] ECG INC INC W/LEAST 12 LDS TRCG ONLY W/O I&R DRUG TEST 08209 [facility] SUE PRSMV 7 [facility] QUAL DIR INC INC OPTICAL OBS PER DAY DRUG TEST G0480 [facility] DEFINITV [address] [facility] [address] [address] [facility] [address] ID INC INC METH P DAY 1-7 DRUG CL FINAL RPT G9557 [place] [address] [address]/MRI 7 MEDICAL CHEST/NCK IMAGING /U/S NO ASS THR NOD<1.0 CM ECG 58318 LINETTE SUE ROUTINE 7 [facility] W/LEAST P P 12 LDS I&R ONLY CREATINE 22072 [facility] SUE KINASE 7 [facility] TOTAL INC INC FIBRIN 72611 LINETTE SUE DGRADJ 7 [facility] PRODUCTS INC INC D-DIMER QUAL/[place] [address] LINETTE SUE LIPASE 7 [facility] INC INC NATRIURET 27757 LINETTE SUE IC 7 [facility] PEPTIDE INC INC COLLECTIO 90297 LINETTE SUE N VENOUS 7 [facility] BLOOD INC INC VENIPUNCT URE FINAL G9638 LEONEL DELAROSA REPORTS 7 MEDICAL W/O DOC IMAGING 1/MORE ASS DOSE REDUCTION TECH FINAL G9551 LEONEL DELAROSA REPR ABD 7 MEDICAL IMAG STS IMAGING W/O ASS INCIDNT F[place]: [place] [address] LINETTE SUE AMYLASE 7 [facility] INC INC CREATINE 88571 LINETTE SUE KINASE MB 7 [facility] [place] [address] LINETTE SUE TROPONIN 7 [facility] QUANTITAT INC INC RUPA BLOOD 46367 LINETTE SUE COUNT 7 [facility] COMPLETE INC INC AUTO&AUTO DIFRNTL WBC COMPREHEN 63388 LINETTE SUE SIVE 7 [facility] METABOLIC INC INC PANEL ECG 27035 LINETTE SUE ROUTINE 7 [facility] ECG INC INC W/LEAST 12 LDS TRCG ONLY W/O I&R URNLS DIP 86445 LINETTE LINETTE 7 [facility] STICK/TAB INC INC LET REAGENT AUTO MICROSCOP Y CT THORAX 75779 LEONEL DELAROSA 7 MEDICAL W/[place] [address] LINETTE SUE ANGIOGRAP 7 [facility] HY INC INC ABDOMEN W/CONTRAS T/[place] [address] LEONEL DELAROSA ABDOMEN 7 MEDICAL W/O IMAGING CONTRAST ASS MATERIAL RADIOLOGI 14631 IOWA ZULLY Tyson EXAM 7 MEDICAL CHEST 2 IMAGING VIEWS ASS FRONTAL&[place] [address] LINETTE SUE ANGIOGRAP 7 [facility] HY CHEST INC INC W/[place] [address] LINETTE SUE THYROID 6 [facility] STIMULATI INC INC NG HORMONE TSH HEPATITIS 81506 LINETTE SUE A 6 [facility] ANTIBODY INC INC HAAB HEPATITIS 74410 LINETTE SUE C 6 [facility] ANTIBODY INC INC DRUG TST G0477 LINETTE SUE PRESUMP;C 6 [facility] PBL BEING [place] [address] LINETTE SUE THYROXINE 6 [facility] TOTAL INC INC COMPREHEN 93806 LINETTE SUE SIVE 6 [facility] METABOLIC INC INC PANEL BLOOD 58158 LINETTE USE COUNT 6 [facility] COMPLETE INC INC AUTO&AUTO DIFRNTL WBC COLLECTIO 03189 LINETTE SUE N VENOUS 6 [facility] [place] [address] LINETTE SUE AMYLASE 6 [facility] INC INC HEMOGLOBI 18197 LINETTE SUE N 6 [facility] GLYCOS[place] [address] LINETTE SUE LIPASE 6 [facility] INC INC HEPATITIS 74898 LINETTE SUE B SURF 6 [facility] [address] LINETTE SUE HEPATITIS 6 [facility] B INC INC SURFACE ANTIGEN HEPATITIS 39833 LINETTE SUE B CORE 6 [facility] ANTIBODY INC INC HBCAB TOTAL DRUG TST G0477 LINETTE SUE PRESUMP;C 6 [facility] PBL BEING INC INC READ DC OPT OBV ONLY DRUG TEST G0479 LAVINIA TOWNSEND 6 KRISTIAN, PRESUMP;I ,[facility] NSTRUMENT ED CHEMISTRY ANLYZER NATRIURET 26367 LINETTE SUE IC 6 [facility] [place] [address] LINETTE USE AMYLASE 6 [facility] INC INC COLLECTIO 96437 LINETTE SUE N VENOUS 6 [facility] BLOOD INC INC VENIPUNCT URE BLOOD 03753 LINETTE SUE COUNT 6 [facility] COMPLETE INC INC AUTO&[place] [address] LINETTE SUE TROPONIN 6 [facility] QUANTITAT INC INC RUPA CREATINE 01257 LINETTE SUE KINASE MB 6 [facility] [place] [address] LINETTE SUE LIPASE 6 [facility] INC INC FIBRIN 82639 LINETTE SUE DGRADJ 6 [facility] PRODUCTS INC INC D-DIMER QUAL/SEMI TODD CREATINE 61082 LINETTE LINETTE KINASE 6 [facility] TOTAL INC INC ECG 95098 LINETTE MCCLAIN ROUTINE 6 [facility] W/LEAST P 12 LDS I&R ONLY CT THORAX 17860 IOWA ZULLY 6 MEDICAL BUBBA W/CONTRAS IMAGING T ASS MATERIAL RADIOLOGI 42661 LINETTE LINETTE C 6 [facility] EXAMINATI INC INC ON CHEST [place] FRONTAL COMPREHEN 83320 LINETTE SUE SIVE 6 [facility] METABOLIC INC INC PANEL ECG 57870 LINETTE LINETTE ROUTINE 6 [facility] ECG INC INC W/LEAST 12 LDS TRCG ONLY W/O I&[place] [address] LINETTE SUE ANGIOGRAP 6 [facility] HY CHEST INC INC W/CONTRAS T/NONCONT RAST DRUG TST G0477 LINETTE SUE PRESUMP;C 6 [facility] PBL BEING [place] [address] LINETTE SUE HEAD/BRAI 6 [facility] N W/O INC INC CONTRAST MATERIAL THERAPEUT 99926 LINETTE SUE IC 6 [facility] PROPHYLAC INC INC TIC/DX INJECTION SUBQ/[place] [address] LINETTE SUE CERVICAL 6 [facility] SPINE W/O INC INC CONTRAST MATERIAL RADEX 32681 LINETTE SUE SHOULDER 6 [facility] COMPLETE INC INC MINIMUM 2 [place] [address] [facility], [facility] 6 [facility] PATHOLOGY GROSS&CHARLEY ROSCOPIC EXAM ANES 08000 [facility] L[facility] 6 ANESTH INTESTINE OF THE BLUE ENDOSCOPY DISTAL DUODENUM COLSC FLX 30516 LINETTE SUE W/RMVL 6 [facility] OF TUMOR INC INC POLYP LESION SNARE TQ GLUC BLD 14510 LINETTE SUE GLUC MNTR 6 [facility] DEV INC INC CLEARED FDA SPEC HOME USE DRUG TST G0477 LINETTE SUE PRESUMP;C 6 [facility] PBL BEING INC INC READ DC OPT OBV ONLY COL-CHR/M 51488 LINETTE SUE S NONDRUG 6 [facility] ANALYTE INC INC CARLINE QUAL/TODD EA SPEC DRUG 71758 LINETTE SUE SCREENING 6 [facility] INC INC BENZODIAZ EPINES 1-12 DRUG 06252 LINETTE SUE SCREEN 6 [facility] LIST A INC INC SINGLE DRUG CLASS METHOD COMPREHEN 34255 LINETTE SUE SIVE 6 [facility] METABOLIC INC INC PANEL LIPID 63660 LINETTE SUE PANEL 6 [place] [address] LINETTE SUE THYROXINE 6 [facility] TOTAL INC INC HEMOGLOBI 23412 LINETTE SUE N 6 [facility] GLYCOSYLA INC INC SONG A1C COLLECTIO 08862 LINETTE USE N VENOUS 6 [facility] BLOOD INC INC VENIPUNCT URE BLOOD 20908 LINETTE SUE COUNT 6 [facility] COMPLETE INC INC AUTO&AUTO DIFRNTL WBC PROSTATE G0103 LINETTE SUE CANCER 6 [facility] SCREENING INC INC ; [place] [address] LINETTE SUE THYROID 6 [facility] STIMULATI INC INC NG HORMONE TSH THERAPEUT 96161 [facility] IC 6 PHYSICIAN CHARLEY PROPHYLAC S GROUP TIC/DX INJECTION SUBQ/IM INJECTION J1100 [facility] CH[facility] 6 PHYSICIAN CHARLEY DEXAMETHO S GROUP SONE SODIUM PHOSPHATE 1 MG INJECTION J1885 [facility] 6 PHYSICIAN CHARLEY KETOROLAC S GROUP TROMETHAM INE PER 15 MG THERAPEUT 54400 [facility] IC 6 PHYSICIAN CHARLEY PROPHYLAC S GROUP TIC/DX INJECTION SUBQ/IM INJECTION J1100 [facility] CHGAO 6 PHYSICIAN CHARLEY DEXAMETHO S GROUP SONE SODIUM PHOSPHATE 1 MG THERAPEUT 35728 [facility] FRYMAN IC 6 PHYSICIAN EUG PROPHYLAC S GROUP TIC/DX INJECTION SUBQ/IM INJECTION J0696 [facility] FRYMAN 6 PHYSICIAN EUG CEFTRIAXO S GROUP NE SODIUM PER 250 MG INJECTION 85882 BOYD LE LB 6 MD JERMAINE, SINGLE/ML PSC T TRIGGER POINT 1/2 MUSCLES DRUG TEST G0481 LINETTE SUE DEFINITV [address] [facility] DR ID INC INC METH P DAY 8-14 DRUG CL DRUG TST G0477 LINETTE SUE PRESUMP;C 6 [facility] PBL BEING INC INC READ DC OPT OBV ONLY MRI BRAIN 68105 LINETTE SUE BRAIN 6 [facility] STEM W/O INC INC W/CONTRAS T MATERIAL INJECTION A9576 LINETTE SUE 6 [facility] GADOTERID INC INC OL PROHANCE MULTIPACK PER ML COLLECTIO 14225 LINETTE SUE N VENOUS 6 [facility] BLOOD INC INC VENIPUNCT URE CREATININ 66675 LINETTE SUE E BLOOD 6 [facility] [place] [address] LINETTE SUE UREA 6 [facility] NITROGEN INC INC QUANTITAT RUPA MRI BRAIN 71934 LINETTE SUE BRAIN 6 [facility] STEM W/O INC INC CONTRAST MATERIAL DUPLEX 35932 LINETTE SUE SCAN 6 [facility] EXTRACRAN INC INC IAL ART COMPL [facility] G0463 LINETTE SUE OUTPATIEN 6 [facility] T CLIN INC INC VISIT ASSESS & [place] [address] LINETTE BECKETT CO HEAD/BRAI 6 [facility] HEALTH N W/O INC DEPARTMEN CONTRAST T MATERIAL THER 74192 LINETTE SUE PROPH/DX 6 [facility] NJX IV INC INC PUSH SINGLE/1S T SBST/DRUG BASIC 63421 LINETTE SUE METABOLIC 6 [facility] PANEL INC INC CALCIUM TOTAL THERAPEUT 69325 LINETTE SUE IC 6 [facility] INJECTION INC INC IV PUSH EACH NEW DRUG INJECTION J2405 LINETTE SUE 6 [facility] ONDANSETR INC INC ON HCL PER 1 MG BLOOD 79720 LINETTE SUE COUNT 6 [facility] COMPLETE INC INC AUTO&AUTO DIFRNTL WBC INJECTION J1030 LINETTE SUE 6 [facility] METHYLPRE INC INC DNISOLONE ACETATE 40 MG FLUOR 55501 BOYDAISHWARYA LE LB NEEDLE/CA 6 MD JERMAINE, TH PSC SPINE/PAR ASPINAL DX/[place]X [address] BOYDAISHWARYA LE LB DX/THER 6 MD JERMAINE, SBST PSC EPIDURAL/ SUBRACH CERV/THOR ACIC LOCM Q9966 LINETTE SUE 200-299 6 [facility] MG/ML INC INC IODINE CONCENTRA TION PER ML HEPATOBIL 81750 LINETTE SUE SYST 6 [facility] IMAG INC INC INC GB W/PHARMA INTERVENJ TECHNETIU A9537 LINETTE Barrientos TC-99M 6 [facility] MEBROFENI INC INC N DX UP TO 15 MCI INJECTION J2805 LINETTE SUE 6 [facility] SINCALIDE INC INC 5 [place] [address] IOWA DELAROSA ALL ABDOMINAL 5 MEDICAL REAL IMAGING TIME ASS W/IMAGE LIMITED GLUC BLD 84358 LINETTE SUE GLUC MNTR 5 [facility] DEV INC INC CLEARED FDA SPEC HOME USE CUL BACT 17795 LINETTE SUE XCPT 5 [facility] URINE INC INC BLOOD/[place] [address] LINETTE SUE STREPTOCO 5 [facility] [place] [address] LINETTE SUE RETROPERI 5 [facility] TONEAL INC [place] W/[place] [address] IOWA ZULLY RETROPERI 5 MEDICAL BUBBA TONEAL IMAGING REAL TIME ASS W/IMAGE LIMITED APPLICATI 03999 LINETTE SUE ON 5 [facility] MODALITY INC INC 1/> AREAS HOT/COLD PACKS APPL 95316 LINETTE SUE MODALITY 5 [facility] 1/> AREAS INC INC ULTRASOUN D EA 15 MIN APPL 90321 LINETTE SUE MODALITY 5 [facility] 1/> AREAS INC INC 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 L E-STIM G0283 LINETTE SUE 1/> AREAS 5 [facility] OTH THAN INC INC WND CARE PART TX PLAN OPHTH 06767 [facility] 5 XM&EVAL COMPRHNSV ESTAB PT 1/> PHYSICAL 06735 LINETTE SUE THERAPY 5 [facility] EVALUATIO INC INC N INJECTION J1030 LINETTE SUE 5 [facility] METHYLPRE INC INC DNISOLONE ACETATE 40 MG INJECTION 63612 LINETTE SUE 5 [facility] SINGLE/ML INC INC T TRIGGER POINT 3/> MUSCLES INJECTION 27750 BOYD ASHER 5 MD JERMAINE, SINGLE/ML PSC T TRIGGER POINT 1/2 MUSCLES PSYCHIATR 23956 COMPREHEN MINEER IC 5 D INC EDELMIRA DIAGNOSTI C EVALUATIO N INJECTION 84749 FREDY Fabian MD SINGLE/ML T TRIGGER POINT 1/2 MUSCLES INJECTION 51676 LINETTE SUE 5 [facility] SINGLE/ML INC INC T TRIGGER POINT 3/> MUSCLES INJECTION J1030 LINETTE VERMAON 5 [facility] METHYLPRE INC INC DNISOL[place] [address] [place] [address] [facility] BEOSCEOLA [facility] HEAD/BRAI 5 MEDICAL DAREN N W/O IMAGING CONTRAST ASS MATERIAL RADEX 20143 [place] BEINE SPINE 5 MEDICAL DAREN THORACIC IMAGING [address] [place] [address] [facility] CERVICAL 5 MEDICAL DAREN SPINE W/O IMAGING CONTRAST ASS MATERIAL ROGELIO 97243 LINETTE LEIVA POST-VOID 5 [facility] RESIDUAL P URINE&/BL [facility] G0463 LINETTE SUE OUTPATIEN 5 [facility] T CLIN INC INC VISIT ASSESS & [place] 228[address] LINETTE SUE ROUTINE 5 [facility] ECG INC INC W/LEAST 12 LDS TRCG ONLY W/O I&R ECG 92808 CARDIOVAS CHAYO ROUTINE 5 CULAR MAT ECG CONSULTAN W/LEAST TS O 12 LDS I&R ONLY ECHO 52392 LINETTE SUE TTHRC R-T 5 [facility] 2D INC INC W/WOM-MOD E COMPL SPEC&COLR D CV STRS 45963 [facility] FALLUJI TST 5 PHYSICIAN VENITA XERS&/OR S GROUP RX CONT ECG W/O I&R CV STRS 13551 LINETTE SUE TST 5 [facility] XERS&/OR INC INC RX CONT ECG TRCG ONLY TECHNETIU A9500 LINETTE Barrientos TC-99M 5 [facility] SESTAMIBI INC INC DX PER STUDY DOSE MYOCARDIA 77574 LINETTE SUE L SPECT 5 [facility] MULTIPLE INC INC STUDIES ECG 47362 LINETTE SUE ROUTINE 5 [facility] ECG INC INC W/LEAST 12 LDS TRCG ONLY W/O I&R ECG 53825 CARDIOVAS CHAYO ROUTINE 5 CULAR MAT ECG CONSULTAN W/LEAST TS O 12 LDS I&R ONLY BASIC 03708 LINETTE SUE METABOLIC 5 [facility] PANEL INC INC CALCIUM TOTAL LIPID 97761 LINETTE SUE PANEL 5 [place] [address] LINETTE SUE THYROXINE 5 [facility] [place] [address] LINETTE SUE THYROID 5 [facility] STIMULATI INC INC NG HORMONE TSH BLOOD 52138 LINETTE SUE COUNT 5 [facility] COMPLETE INC INC AUTO&[place] [address] LEONEL LICEA HEAD/BRAI 5 MEDICAL DAREN N W/O IMAGING CONTRAST ASS MATERIAL RADIOLOGI 22891 LEONEL LICEA C 5 MEDICAL DAREN EXAMINATI IMAGING ON CHEST ASS SINGLE VIEW FRONTAL AMB A0427 [facility] SERVICE 5 AMBULANCE AMBULANCE ALS SERVICE SERVICE EMERGENCY TRANSPORT LEVEL 1 CRITICAL 22870 LINETTE SUE CARE 5 [facility] ED P P PATIENT INIT 30-74 MIN COMPREHEN 20292 LINETTE SUE SIVE 5 [facility] METABOLIC INC INC PANEL ECG 83456 LINETTE SUE ROUTINE 5 [facility] ECG INC INC W/LEAST 12 LDS TRCG ONLY W/O I&R ECG 24532 LINETTE SUE ROUTINE 5 [facility] W/LEAST P P 12 LDS I&R ONLY CREATINE 47778 LINETTE SUE KINASE 5 [facility] TOTAL INC INC CREATINE 06239 LINETTE SUE KINASE MB 5 [facility] [place] [address] LINETTE SUE TROPONIN 5 [facility] QUANTITAT INC INC RUPA GROUND A0425 [facility] AMBULANCE PER SERVICE SERVICE STATUTE MILE LOCM Q9967 LINETTE SUE 300-399 4 [facility] MG/ML INC [place] [address] IOWA ZULLY ANGIOGRAP 4 MEDICAL BUBBA HY IMAGING ABDOMEN ASS W/[place] [address] LINETTE SUE UREA 4 [facility] NITROGEN INC INC QUANTITAT RUPA COLLECTIO 41933 LINETTE SUE N VENOUS 4 [facility] BLOOD INC INC VENIPUNCT URE CREATININ 01797 LINETTE SUE E BLOOD 4 [place] [address] LINETTE SUE HEAD/BRAI 4 [facility] N W/O INC INC CONTRAST MATERIAL THERAPEUT 89398 [facility] IC 4 PHYSICIAN CHARLEY PROPHYLAC S GROUP TIC/DX INJECTION SUBQ/IM INJECTION J0696 [facility] 4 PHYSICIAN CHARLEY CEFTRIAXO S GROUP NE SODIUM PER 250 MG INJECTION J1040 [facility] 4 PHYSICIAN PHYSICIAN METHYLPRE S GROUP S GROUP DNISOLONE ACETATE 80 MG RADIOLOGI 56891 IOWA ZULLY C 4 MEDICAL BUBBA EXAMINATI IMAGING ON CHEST ASS SINGLE VIEW FRONTAL DIAB ONLY A5500 [facility] FIT CSTM 4 PREP&SPL SHOE MX DNSITY INSRT FOR DIAB A5512 [facility] ONLY MX 4 DNSITY INSRT DIR FORMD PRFAB EA THERAPEUT 85125 LINETTE SUE IC 4 [facility] PROPHYLAC INC INC TIC/DX INJECTION SUBQ/IM CT LUMBAR 60691 ZULLY ZULLY SPINE 4 BUBBA BUBBA W/O CONTRAST MATERIAL THER 80490 LINETTE SUE PROPH/DX 4 [facility] NJX IV INC INC PUSH SINGLE/1S T SBST/[place] [address] ZULLY ZULLY ABDOMEN & 4 BUBBA BUBBA PELVIS W/O CONTRST 1/> BODY RE THROMBOPL 27926 LINETTE SUE ASTIN 4 [facility] TIME INC INC PARTIAL PLASMA/WH OLE BLOOD THER 55277 LINETTE SUE PROPH/DX 4 [facility] NJX IV INC INC PUSH SINGLE/1S T SBST/DRUG ECG 37646 LINETTE SUE ROUTINE 4 [facility] ECG INC INC W/LEAST 12 LDS TRCG ONLY W/O I&R COMPREHEN 41064 LINETTE SUE SIVE 4 [facility] [place] [address] LINETTE SUE TROPONIN 4 [facility] QUANTITAT INC INC RUPA CREATINE 45101 LINETTE SUE KINASE MB 4 [facility] FRACTION INC INC ONLY ECG 74400 WARE WARE ROUTINE 4 BRO BRO ECG W/LEAST 12 LDS I&R ONLY CREATINE 67835 LINETTE SUE KINASE 4 [facility] TOTAL INC INC PROTHROMB 12658 LINETTE SUE IN TIME 4 [facility] INC INC FIBRIN 60252 LINETTE SUE DGRADJ 4 [facility] PRODUCTS INC INC D-DIMER QUAL/[place] [address] LINETTE SUE ABDOMEN & 4 [facility] PELVIS INC INC W/O CONTRAST MATERIAL RADIOLOGI 07840 LINETTE SUE C EXAM 4 [facility] CHEST 2 INC INC VIEWS FRONTAL&L ATERAL BLOOD 93040 LINETTE SUE COUNT 4 [facility] COMPLETE INC INC AUTO&AUTO DIFRNTL WBC DRUG SCR G0434 VITA HAM VITA HAM NOT 4 CHROMATOG RAPHIC; ANY NUMBER PT ENC COMPREHEN 66655 LINETTE SUE SIVE 3 [facility] METABOLIC INC INC PANEL BLOOD 71128 LINETTE SUE COUNT 3 [facility] COMPLETE INC INC AUTO&[place] [address] LINETTE SUE THYROID 3 [facility] STIMULATI INC INC NG HORMONE TSH IIV3 89563 MCKEMIE MCKEMIE VACCINE 3 JR AREN RAI AREN SPLIT VIRUS 0.5 ML DOSAGE IM USE IM ADM 36554 MCKEMIE MCKEMIE PRQ ID 3 JR AREN JR AREN SUBQ/IM NJXS 1 VACCINE IM ADM 32060 MCKEMIE MCKEMIE PRQ ID 3 JR AREN JR AREN SUBQ/IM NJXS EA VACCINE INJECTION J3301 MCKEMIE MCKEMIE 3 JR AREN RAI AREN TRIAMCINO LONE ACETONIDE NOS 10 MG ADMINISTR G0008 MCKEMIE MCKEMIE ATION OF 3 JR AREN RAI AREN INFLUENZA VIRUS VACCINE THERAPEUT 45969 LINETTE SUE IC 3 [facility] PROPHYLAC INC INC TIC/DX INJECTION SUBQ/IM COMPREHEN 73748 LINETTE USE SIVE 3 [facility] METABOLIC INC INC PANEL LIPID 06874 LINETTE SUE PANEL 3 [place] [address] LINETTE SUE THYROID 3 [facility] STIMULATI [place] [address] LINETTE SUE UREA 3 [facility] NITROGEN INC [place]IT[place] 0[address] LINETTE SUE SPINAL 3 [facility] CANAL INC INC CERVICAL W/O CONTRAST MATRL MRI BRAIN 80925 LINETTE SUE BRAIN 3 [facility] STEM W/O INC INC W/CONTRAS T MATERIAL 3D 36141 LINETTE SUE RENDERING 3 [facility] W/INTERP INC INC & POSTPROCE SS SUPERVISI ON CREATININ 25824 LINETTE SUE E BLOOD 3 [facility] INC INC INJECTION A9576 LINETTE LINETTE 3 [facility] GADOTERID INC INC OL PROHANCE MULTIPACK PER ML APPL 35735 LINETTE SUE MODALITY 3 [facility] 1/> AREAS INC INC ELEC STIMJ UNATTENDE D APPLICATI 71386 LINETTE SUE ON 3 [facility] MODALITY INC INC 1/> AREAS HOT/COLD PACKS APPL 37427 LINETTE SUE MODALITY 3 [facility] 1/> AREAS INC INC 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 L APPL 39657 LINETTE SUE MODALITY 3 [facility] 1/> AREAS INC INC 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 L APPL 84383 LINETTE SUE MODALITY 3 [facility] 1/> AREAS INC INC ELEC STIMJ UNATTENDE D APPL 17931 LINETTE SUE MODALITY 3 [facility] 1/> AREAS INC INC ULTRASOUN D EA 15 MIN APPLICATI 52638 LINETTE SUE ON 3 [facility] MODALITY INC INC 1/> AREAS HOT/COLD PACKS PHYSICAL 51307 LINETTE SUE THERAPY 3 [facility] EVALUATIO INC INC N THERAPEUT 59198 LINETTE SUE IC 3 [facility] PROPHYLAC INC INC TIC/DX INJECTION SUBQ/IM INJECTION J3301 LINETTE LINETTE 3 [facility] TRIAMCINO INC INC LONE ACETONIDE NOS 10 MG CUL BACT 58471 LINETTE SUE STOOL 3 [facility] AEROBIC INC INC ISOL SALMONELL A&SHIGELL BLOOD 59691 LINETTE SUE OCCULT 3 [facility] PEROXIDAS INC INC E ACTV QUAL FECES 1-3 [place] [address] LINETTE SUE CLOSTRIDI 3 [facility] UM INC INC DIFFICILE TOXIN OVA&DERRICK 00499 [facility] ITES 3 [facility] DIRECT INC INC SMEARS CONCENTRA TION & ID SMR PRIM 38064 [facility] SRC 3 [facility] GRAM/GIEM INC INC SA STAIN BCT FUNGI/ELBA L RADEX 72171 ZULLY ZULLY SHOULDER 3 BUBBA BUBBA COMPLETE MINIMUM 2 VIEWS RADIOLOGI 16531 ZULLY ZULLY C EXAM 3 BUBBA BUBBA CHEST 2 VIEWS FRONTAL&[place] [address] [facility] S[facility] TROPONIN 3 [facility] QUANTITAT INC INC RUPA CREATINE 45401 [facility] KINASE MB 3 [facility] FRACTION INC INC ONLY ECG 59548 RAMONASON BESSON ROUTINE 3 CAMILLA CAMILLA ECG W/LEAST 12 LDS I&R ONLY CREATINE 52880 [facility] KINASE 3 [facility] TOTAL INC INC ECG 43998 [facility] ROUTINE 3 [facility] ECG INC INC W/LEAST 12 LDS TRCG ONLY W/O I&R URNLS DIP 43436 MCKEMIE MCKEMIE 3 JR AREN JR AREN STICK/TAB LET RGNT NON-AUTO W/O MICRSCP ECG 51038 [facility] ROUTINE 3 [facility] ECG INC INC W/LEAST 12 LDS TRCG ONLY W/O I&R COMPREHEN 64328 [facility] SIVE 3 [facility] METABOLIC INC INC PANEL URNLS DIP 79218 [facility]UE 3 [facility] STICK/TAB INC INC LET REAGENT AUTO MICROSCOP Y CREATINE 90226 [facility] KINASE 3 [facility] TOTAL INC INC ECG 46385 CHAGO CHAGO ROUTINE 3 CHARLEY CHARLEY ECG W/LEAST 12 LDS [place] [address] [facility] INFUSION 3 [facility] THERAPY/P INC INC ROPHYLAXI S /DX 1ST TO 1 HR THERAPEUT 88460 [facility] IC 3 [facility] INJECTION INC INC IV PUSH EACH NEW DRUG INJECTION J2405 [facility] ONDANSETR INC [place] [address] [place] [address] ZULLY ZULLY ABDOMEN & 3 BUBBA BUBBA PELVIS W/[place] [address] [facility] LIPASE 3 [facility] INC INC CREATINE 67613 [facility] KINASE MB 3 [facility] [place] [address] [facility] S[facility] TROPONIN 3 [facility] QUANTITAT INC INC RUPA 3D 78117 [facility] RENDERING 3 [facility] INC INC W/INTERP& [place] [address] [facility] AMYLASE 3 [facility] INC INC BLOOD 92345 [facility] COUNT 3 [facility] COMPLETE INC INC AUTO&AUTO DIFRNTL WBC BLOOD 79231 [facility] COUNT 3 [facility] COMPLETE INC INC AUTO&AUTO DIFRNTL WBC PROSTATE G0103 [facility] CANCER 3 [facility] SCREENING INC INC ; PSA TEST LIPID 80837 [facility] PANEL 3 [facility] INC INC COMPREHEN 51207 [facility] SIVE 3 [facility] METABOLIC INC INC PANEL ECG 70282 [facility] MCKEMIE ROUTINE 3 [facility] W/LEAST P 12 LDS I&R ONLY CREATINE 57599 [facility] KINASE 3 [facility] TOTAL INC INC ECG 49088 CHAGO ANDERS ROUTINE 3 [facility]LEY CHARLEY ECG W/LEAST 12 LDS I&[place] [address] [facility] LIPASE 3 [place] [address] [facility] S[facility] ABDOMEN & 3 [facility] PELVIS INC INC W/O CONTRAST MATERIAL [place]I 90419 [facility] INFLUENZA 3 [facility] B VIRUS INC INC IAADI 31677 [facility] S[facility] INFFLUENZ 3 [facility] [place] [address] [facility] S[facility] AMYLASE 3 [facility] INC INC BLOOD 53081 [facility] OCCULT 3 [facility] PEROXIDAS INC INC E ACTV QUAL FECES 1-3 SPEC 3D 06110 [facility] RENDERING 3 [facility] INC INC W/INTERP& POSTPROC DIFF WORK STATION CREATINE 14266 [facility] KINASE MB 3 [facility] [place] [address] [facility] S[facility] TROPONIN 3 [facility] QUANTITAT INC INC RUPA COMPREHEN 83016 [facility] SIVE 3 [facility] METABOLIC INC INC PANEL ECG 44527 [facility] ROUTINE 3 [facility] ECG INC INC W/LEAST 12 LDS TRCG ONLY W/O I&R URNLS DIP 80913 [facility]UE [facility] STICK/TAB INC INC LET REAGENT AUTO MICROSCOP Y RADIOLOGI 01516 [facility] C 3 [facility] EXAMINATI INC INC ON [place]ST [place] FRONTAL BLOOD 69693 [facility] COUNT 3 [facility] COMPLETE INC INC AUTO&AUTO DIFRNTL WBC ANES [address] [facility] TRANSURET 2 ANESTH LOLY HRAL OF THE W/URETHRO BLUE CYSTOSCOP Y NOS UROGRAPHY 31906 LEONEL ANDREA IV W/WO 2 MEDICAL BUBBA KUB W/WO IMAGING TOMOGRAPH ASS Y CYSTO 53080 LINET[facility]UE BLADDER 2 [facility] W/URETERA INC INC L CATHETERI ZATION URETHROCY 36993 LINETTE SUE STOGRAPHY 2 [facility] INC INC RETROGRAD E RS&I CYSTOURET 91289 LEIVA LEIVA HROSCOPY 2 ART ART CREATININ 21303 LINETTE SUE E BLOOD 2 [place] [address] LINETTE SUE UREA 2 [facility] NITROGEN INC INC QUANTITAT RUPA URNLS DIP 88298 LEIVA LEIVA 2 ART ART STICK/TAB LET RGNT NON-AUTO W/[place] [address] LINETTE SUE ABDOMEN & 2 [facility] PELVIS INC INC W/O CONTRST 1/> BODY RE LOCM Q9967 LINETTE SUE [phone] [facility] MG/ML INC INC IODINE CONCENTRA TION PER ML PROSTATE [id number] LINETTE SUE CANCER 2 [facility] SCREENING INC INC ; PSA TEST BASIC 23835 LINETTE SUE METABOLIC 2 [facility] [place]EL [place] [address] LINETTE SUE TESTOSTER 2 [facility] ONE TOTAL INC INC URNLS DIP 22606 LEIVA LEIVA 2 ART ART STICK/TAB LET RGNT NON-[place] [address] ZULLY ZULLY RETROPERI 2 BUBBA BUBBA TONEAL REAL TIME W/IMAGE COMPLETE URNLS DIP 13544 JAMA YUN 2 NAN NAN STICK/TAB LET RGNT NON-AUTO W/O MICRSCP COMPREHEN 03236 LINETTEKING SUE SIVE 2 [facility] METABOLIC INC INC PANEL LIPID 98510 LINETTE LINETTE PANEL 2 [facility] INC INC HEMOGLOBI 18954 LINETTE SUE N 2 [facility] GLYCOSYLA INC INC SONG A1C URNLS DIP 58868 JAMA JAMA 2 NAN NAN STICK/TAB LET RGNT NON-AUTO W/O MICRSCP OPHTHALMO 88069 NICK ROMERO SCPY 2 [place] JAM EXTENDED RETINAL DRAWING I&R 1ST DETERMINA 07648 NICK ROMERO TION 2 JAM JAM REFRACTIV E STATE MYOCARDIA 78626 LAUREN FAMUANISH L SPECT 2 [facility] MULTIPLE STUDIES MYOCARDIA 98381 LINETTE SUE L SPECT 2 [facility] MULTIPLE INC INC STUDIES TECHNETIU A9502 LINETTE SUE M TC-99M 2 [facility] TETROFOSM INC INC IN DX PER STUDY DOSE CV STRS 85639 LINETTE SUE TST 2 [facility] RX CONT P P ECG I&R ONLY CV STRS 00060 SELMA [facility] TST 2 XERS&/OR RX CONT ECG W/O I&R CV STRS 13628 LINETTE SUE TST 2 [facility] XERS&/OR INC INC RX CONT ECG TRCG ONLY OBSERVATI 67587 JOHNY MCCLAIN ON CARE 2 CAMILLA CAMILLA DISCHARGE [facility] G0378 LINETTE SUE OBSERVATI 2 [facility] [place] [address] LINETTE SUE TROPONIN 2 [facility] QUANTITAT INC INC RUPA CREATINE 49882 LINETTE SUE KINASE MB 2 [facility] FRACTION INC INC ONLY CREATINE 84008 LINETTE SUE KINASE 2 [facility] TOTAL INC INC CREATINE 06115 LINETTE SUE KINASE 2 [facility] TOTAL INC INC ECG 49089 [place] ROUTINE 2 III AREN III AREN ECG W/LEAST 12 LDS I&R ONLY RHYTHM 41228 LINETTE SUE ECG 1-3 2 [facility] LEADS INC INC TRACING ONLY W/O I&R PRESSURIZ 42811 LINETTE SUE ED/NONPRE 2 [facility] SSURIZED INC INC INHALATIO N TREATMENT INITIAL 60839 NATHALY CRMIHira OBSERVATI 2 JR AREN JR AREN ON CARE/DAY 30 [place] [address] LINETTE SUE LIPASE 2 [facility] INC INC 3D 87551 LINETTE SUE RENDERING 2 [facility] W/INTERP INC INC & POSTPROCE SS SUPERVISI ON CREATINE 90637 LINETTE SUE KINASE MB 2 [facility] [place] [address] LINETTE SUE TROPONIN 2 [facility] QUANTITAT INC INC [facility] G0378 LINETTE SUE OBSERVATI 2 [facility] ON INC INC SERVICE PER HOUR ECG 43825 LINETTE SUE ROUTINE 2 [facility] ECG INC INC W/LEAST 12 LDS TRCG ONLY W/O I&R COMPREHEN 94001 LINETTE SUE SIVE 2 [facility] METABOLIC INC INC PANEL BASIC 64011 LINETTE SUE METABOLIC 2 [facility] PANEL INC INC CALCIUM TOTAL RADIOLOGI 76321 ILNETTE SUE C 2 [facility] EXAMINATI INC [place] [address] LEONEL ZULLY HEAD/BRAI 2 MEDICAL BUBBA N W/O IMAGING CONTRAST ASS MATERIAL BLOOD 12045 LINETTE VERMAON COUNT 2 [facility] COMPLETE INC INC AUTO&AUTO DIFRNTL WBC CT ORBIT 12531 LEONEL ZULLY SELLA/POS 2 MEDICAL BUBBA T IMAGING FOSSA/EAR ASS W/O CONTRAST [facility] [address] EDGE DONNIE EDGE DONNIE MICROGRAP 2 HIC H/N/H/F/G 1ST STAGE 5 BLOCKS ADJT TIS 94932 ODALYS MORROW LB TRNSFR/RE 2 ARRGMT E/N/E/L DFCT 10 SQ CM/< SUTR WND 91030 ODALYS MORROW LB EYELID/MA 2 RGIN/TARS US/CONJUN C FULL THICK ANES 14017 [place] MAJORS G INTEG 2 ANESTHESI MUSC & A ASSOC L NRV HEAD NECK&POST ERIOR TRUNK HEMOGLOBI 51129 LINETTE SUE N 2 [facility] GLYCOSYLA INC INC SONG A1C COMPREHEN 41729 LINETTE SUE SIVE 2 [facility] METABOLIC INC INC PANEL LIPID 36228 LINETTE SUE PANEL 2 [facility] INC INC BLOOD 29381 LINETTE VERMAON COUNT 2 [facility] COMPLETE INC INC AUTO&AUTO DIFRNTL WBC BLOOD 93055 LINETTE LINETTE COUNT 2 [facility] COMPLETE INC INC AUTO&[place] [address] ZULLY ZULLY MAXILLOFA 2 BUBBA BUBBA CIAL W/O CONTRAST MATERIAL RADIOLOGI 74173 ZULLY ZULLY C EXAM 2 BUBBA BUBBA CHEST 2 VIEWS FRONTAL&L ATERAL URNLS DIP 50737 LINETTE SUE 2 [facility] STICK/TAB INC [place] [address] LINETTE SUE HEAD/BRAI 2 [facility] N W/O INC INC CONTRAST MATERIAL BASIC 97793 LINETTE SUE METABOLIC 2 [facility] PANEL INC INC CALCIUM TOTAL ECG 21304 LINETTE SUE ROUTINE 2 [facility] ECG INC INC W/LEAST 12 LDS TRCG ONLY W/O I&R CREATINE 44357 LINETTE LINETTE KINASE MB 2 [facility] [place] [address] LINETTE SUE TROPONIN 2 [facility] QUANTITAT INC INC RUPA 3D 17674 LINETTE SUE RENDERING 2 [facility] W/INTERP INC INC & POSTPROCE SS SUPERVISI ON RHYTHM 27862 LINETTE SUE ECG 1-3 2 [facility] LEADS INC INC TRACING ONLY W/O I&R CREATINE 12865 LINETTE SUE KINASE 2 [facility] TOTAL INC INC ECG 05009 [place] ROUTINE 2 III AREN III AREN ECG W/LEAST 12 LDS I&R ONLY RHYTHM 34272 LINETTE LINETTE ECG 1-3 1 [facility] LEADS INC INC TRACING ONLY W/O I&R PRESSURIZ 87575 LINETTE SUE ED/NONPRE 1 [facility] SSURIZED INC INC INHALATIO N TREATMENT ECG 72661 BARAHONA MICHELLE BARAHONA MICHELLE ROUTINE 1 ECG W/LEAST 12 LDS I&R ONLY CREATINE 06614 LINETTE SUE KINASE 1 [facility] [place] [address] LINETTE SUE TROPONIN 1 [facility] QUANTITAT INC INC RUPA CREATINE 41967 LINETTE SUE KINASE MB 1 [facility] FRACTION INC INC ONLY ECG 41146 LINETTE SUE ROUTINE 1 [facility] ECG INC INC W/LEAST 12 LDS TRCG ONLY W/O I&R COMPREHEN 22160 LINETTE SUE SIVE 1 [facility] METABOLIC INC INC PANEL RADIOLOGI 82481 [facility] ZULLY Tyson 1 MEDICAL BUBBA EXAMINATI IMAGING ON CHEST ASS SING[place]IEW FRONTAL BLOOD 21731 LINETTE SUE COUNT 1 [facility] COMPLETE INC INC AUTO&AUTO DIFRNTL WBC INCISIONA 17345 ODALYS MORROW LB L BIOPSY 1 EYELID SKIN & LID MARGIN EXC 19221 ODALYS MORROW LB LESION 1 EYELID W/O CLSR/W/SI MPLE DIR CLOSURE THERAPEUT 28097 LICKING LICKING IC 1 [facility] PROPHYLAC INTERNAL INTERNAL TIC/DX MED MED INJECTION SUBQ/IM XTRNL 43583 ODALYS MORROW LB OCULAR 1 PHOTOG W/I&R DOCMI MEDICAL PROGRE OPHTH 10941 [facility] 1 VISION XM&EVAL COMPRHNSV ESTAB PT 1/> [place] [address] NEW LENA RETROPERI 1 [facility] TONEAL CLINIC REAL [place] PSC W/[place] [address] NEW LENA ABDOMINAL 1 [facility] REAL CLINIC TIME PSC W/IMAGE LIMITED LIPID 16432 COMBINED COMBINED PANEL 1 PHYSICIAN PHYSICIAN S LA S LA GENERAL 64993 COMBINED COMBINED HEALTH 1 PHYSICIAN PHYSICIAN PANEL S LA S LA HEMOGLOBI 46862 COMBINED COMBINED N 1 PHYSICIAN PHYSICIAN GLYCOSYLA S LA S LA SONG A1C 3D 91017 IOWA ZULLY RENDERING 1 MEDICAL BUBBA W/INTERP IMAGING & ASS POSTPROCE SS SUPERVISI ON MRI BRAIN 46363 [facility] BRAIN 1 MEDICAL BUBBA STEM W/O IMAGING CONTRAST ASS MATERIAL MRI 56503 [facility] SPINAL 1 MEDICAL BUBBA CANAL IMAGING CERVICAL ASS W/O CONTRAST MATRL RADIOLOGI 15270 [facility] C EXAM 1 MEDICAL BUBBA CHEST 2 IMAGING VIEWS ASS FRONTAL&L ATERAL BLOOD 01582 LINETTE SUE COUNT 1 [facility] COMPLETE INC INC AUTO&[place] [address] IOWA ZULLY HEAD/BRAI 1 MEDICAL BUBBA N W/O IMAGING CONTRAST ASS MATERIAL BASIC 29129 LINETTE SUE METABOLIC 1 [facility] PANEL INC INC CALCIUM TOTAL ECG 28860 LINETTE SUE ROUTINE 1 [facility] ECG INC INC W/LEAST 12 LDS TRCG ONLY W/O I&R 3D 42408 LEONEL ANDREA RENDERING 1 MEDICAL BUBBA W/INTERP IMAGING & ASS POSTPROCE SS SUPERVISI ON CREATINE 73440 LINETTE SUE KINASE 1 [facility] TOTAL INC INC ECG 34647 [facility] ROUTINE 1 EMERGENCY III AREN ECG SERVICES W/LEAST 12 LDS I&R ONLY CREATINE 49579 LINETTE SUE KINASE MB 1 [facility] [place] [address] LINETTE SUE TROPONIN 1 [facility] QUANTITAT INC INC RUPA BASIC 57763 LINETTE SUE METABOLIC 1 [facility] PANEL INC INC CALCIUM TOTAL LIPID 22314 LINETTE SUE PANEL 1 [facility] INC INC BLOOD 98524 LINETTE SUE COUNT 1 [facility] COMPLETE INC INC AUTO&AUTO DIFRNTL WBC ECHO 47347 LINETTE SUE TTHRC R-T 1 [facility] 2D INC INC W/WOM-[place] E COMPL SPEC&[place] [address] LINETTE VERMAON INFUSION 1 [facility] THERAPY INC INC PROPHYLAX IS/DX EA HOUR ESOPHAGOG 59378 Marbella ADAME ASTRODUOD 1 DEEP ARREOLA MD [facility] TRANSORAL DIAGNOSTI C OTHER 4513 LINETTE SUE ENDOSCOPY 1 [facility] OF SMALL INC INC INTESTINE SWALLOWIN 96659 LEONEL Ramey FUNCJ 1 MEDICAL BUBBA W/CINERAD IMAGING IOGRAPY/V ASS IDRADIOG BLOOD 34212 LINETTE SUE COUNT 1 [facility] COMPLETE INC INC AUTO&AUTO DIFRNTL WBC BASIC 57548 LINETTE SUE METABOLIC 1 [facility] PANEL INC INC CALCIUM TOTAL ECG 04185 LINETTE SUE ROUTINE 1 [facility] ECG INC INC W/LEAST 12 LDS TRCG ONLY W/O I&R URNLS DIP 56404 LINETTE SUE 1 [facility] STICK/TAB INC INC LET REAGENT AUTO MICROSCOP Y AMB A0427 DAVID HERNANDEZ SERVICE 1 [facility] AMB[facility] ALS SERVICE SERVICE [place] [address] LEONEL ANDREA HEAD/BRAI 1 MEDICAL BUBBA N W/O IMAGING CONTRAST ASS MATERIAL RADIOLOGI 03780 LEONEL ANDREA C 1 MEDICAL BUBBA EXAMINATI IMAGING ON CHEST ASS SINGLE VIEW FRONTAL AMB A0422 DAVID HERNANDEZ OXYGEN&O2 1 AMBULANCE AMBULANCE SUPPLIES SERVICE SERVICE LIFE SUSTAININ G SITUATION ECG 11682 LINETTE MCKEMIE ROUTINE 1 [facility] W/LEAST P 12 LDS I&R ONLY CREATINE 65216 LINETTE SUE KINASE 1 [facility] TOTAL INC INC 3D 02888 LEONEL ANDREA RENDERING 1 MEDICAL BUBBA W/INTERP IMAGING & ASS POSTPROCE SS SUPERVISI ON ALS A0398 DAVID HERNANDEZ ROUTINE 1 AMB[facility]ANCE AMBULANCE [place] [address] LEONEL ANDREA ABDOMEN & 1 MEDICAL BUBBA PELVIS IMAGING [place] [address] LINETTE SUE INFUSION 1 [facility] THERAPY/P INC INC ROPHYLAXI S /DX 1ST TO 1 [place] [address] LINETTE USE TROPONIN 1 [facility] QUANTITAT INC INC RUPA 3D 13037 LINETTE SUE RENDERING 1 [facility] INC INC W/INTERP& POSTPROC DIFF WORK STATION CREATINE 23391 LINETTE SUE KINASE MB 1 [facility] FRACTION INC INC ONLY GROUND A0425 DAVID HERNANDEZ MILEAGE 1 AMBULANCE AMBULANCE PER SERVICE SERVICE STATUTE MILE SEDIMENTA 15592 LINETTE SUE TION RATE 1 [facility] RBC INC INC NON-AUTOM ATED COMPREHEN 51955 LINETTE SUE SIVE 1 [facility] METABOLIC INC INC PANEL BLOOD 07540 LINETTE SUE COUNT 1 [facility] COMPLETE INC INC AUTO&[place] [address] LINETTE SUE THYROID 1 [facility] STIMULATI INC INC NG HORMONE TSH SYPHILIS 09762 LINETTE SUE TEST 1 [facility] NON-TREPO INC INC NEMAL ANTIBODY QUAL SUSCEPTIB 22278 LINETTE SUE LTY STDY 1 [facility] ANTIMICRB INC INC IAL MICRO/AGA R DILUTJ CUL BACT 15128 LINETTE SUE AEROBIC 1 [facility] ADDL INC INC METHS DEFINITIV E EA ISOL CUL BACT 75812 LINETTE SUE XCPT 1 [facility] URINE INC INC BLOOD/STO OL AEROBIC ISOL 3D 82039 LINETTE SUE RENDERING 0 [facility] INC INC W/INTERP& [place] [address] LINETTE SUE HEAD/BRAI 0 [facility] N W/O INC INC CONTRAST MATERIAL LARYNGOSC 28572 SAM FLORESY OPY 0 JAROD OLIVERA FLEXIBLE DIAGNOSTI C INITIAL 96614 SAM VARGAS INPATIENT 0 JAROD OLIVERA CONSULT NEW/ESTAB PT 55 MIN GROUND A0425 DAVID HERNANDEZ MILEAGE 0 AMB[facility]ANCE AMBULANCE PER SERVICE SERVICE STATUTE MILE AMB A0422 DAVID HERNANDEZ OXYGEN&O2 0 AMBULANCE AMBULANCE SUPPLIES SERVICE SERVICE LIFE SUSTAININ G SITUATION RADIOLOGI 87140 IOWA ZULLY C 0 MEDICAL BUBBA EXAMINATI IMAGING ON CHEST ASS SINGLE VIEW FRONTAL AMB A0427 DAVID HERNANDEZ SERVICE 0 AMBULANCE AMBULANCE ALS SERVICE SERVICE EMERGENCY TRANSPORT LEVEL 1 MYOCARDIA 23512 [facility] FALLUJI L SPECT 0 PHYSICIAN [place] [address] IOWA ZULLY ANGIOGRAP 0 MEDICAL BUBBA HY CHEST IMAGING W/CONTRAS ASS T/NONCONT RAST 28786 [facility] RETROPERI 0 [facility] REAL TIME PSC W/IMAGE LIMITED BASIC 20426 LINETTE SUE METABOLIC 0 [facility] PANEL INC INC [facility] G0378 LINETTE SUE OBSERVATI 0 [facility] ON INC INC SERVICE PER HOUR BLOOD 59671 LINETTE SUE COUNT 0 [facility] COMPLETE INC INC AUTO&AUTO DIFRNTL WBC BLOOD 27748 LINETTE SUE COUNT 0 [facility] COMPLETE INC INC AUTO&[place] [address] LEONEL ZULLY, ABDOMEN 0 MEDICAL OLESYA W/O IMAGING CONTRAST ASSOCIATE MATERIAL S LAPAROSCO 09153 ALLRAN ALLRAN PIC 0 JR, JR, APPENDECT ADI F ADI F RAULITO ANESTHESI 05683 [facility] CHUY, A 0 ANESTH LALO A INTRAPERI OF THE TONEAL [place]UEGR[place] LOWER ABD W/LAPS NOS LAPAROSCO 4701 LINETTE SUE PIC 0 [facility] APPENDECT INC INC RAULITO LEVEL III 70752 PATHOLOGY PATHOLOGY SURG 0 & & PATHOLOGY CYTOLOGY CYTOLOGY LAB LAB [facility] G0378 LINETTE SUE OBSERVATI 0 [facility] ON [place] [address] LINETTE SUE AMYLASE 0 [facility] INC INC 3D 51373 LEONEL ANDREA, RENDERING 0 MEDICAL OLESYA IMAGING W/INTERP& ASSOCIATE [place] [address] LINETTE SUE TROPONIN 0 [facility] QUANTITAT INC INC RUPA CREATINE 69634 LINETTE SUE KINASE MB 0 [facility] FRACTION INC INC ONLY IAADI 25668 LINETTE SUE INFFLUENZ 0 [facility] A A VIRUS INC INC IAADI 44822 LINETTE SUE INFLUENZA 0 [facility] B VIRUS INC INC 3D 38793 LINETTE SUE RENDERING 0 [facility] W/INTERP INC INC & [place] [address] LINETTE SUE LIPASE 0 [facility] INC INC CREATINE 69045 LINETTE SUE KINASE 0 [facility] TOTAL INC INC RHYTHM 10558 LINETTE SUE ECG 1-3 0 [facility] LEADS INC INC TRACING ONLY W/O I&R ECG 08911 LINETTE [place] ROUTINE 0 [facility] W/LEAST PROF SERV 12 LDS I&[place] [address] LINETTE SUE INFUSION 0 [facility] THERAPY/P INC INC ROPHYLAXI S /DX 1ST TO 1 HR COMPREHEN 14645 LINETTE LINETTE SIVE 0 [facility] METABOLIC INC INC PANEL ECG 96770 LINETTE SUE ROUTINE 0 [facility] ECG INC INC W/LEAST 12 LDS TRCG ONLY W/O [place] [address] LINETTE VERMAON INFUSION 0 [facility] THER INC INC PROPH ADDL SEQUENTIA L TO 1 HR CRITICAL 10913 [facility] 0 EMERGENCY III, ILL/INJUR SERVICES [facility] ED PATIENT ASSOCIATE INIT S 30-74 MIN URNLS DIP 72537 LINETTE SUE 0 [facility] STICK/TAB INC INC LET REAGENT AUTO MICROSCOP Y CT PELVIS 04253 [facility] ZULL[facility], W/O 0 MEDICAL OLESYA CONTRAST IMAGING MATERIAL ASSOCIATE S RADEX ABD 96686 [place] ZULLY, COMPL 0 MEDICAL OLESYA AQT ABD IMAGING W/S/E/D ASSOCIATE VIEWS [address] [place] [address] IOWA ZULLY, HEAD/BRAI 0 MEDICAL OLESYA N W/O IMAGING CONTRAST ASSOCIATE MATERIAL S LIPID 97222 LINETTE SUE PANEL 0 [facility] INC INC COMPREHEN 63020 LINETTE SUE SIVE 0 [facility] [place] [address] LINETTE SUE THYROID 0 [facility] STIMULATI INC INC NG HORMONE TSH BLOOD 34389 LINETTE SUE COUNT 0 [facility] COMPLETE INC INC AUTO&AUTO DIFRNTL WBC EGD 91009 GAIL SANCHEZ, TRANSORAL 9 MEDICAL ALEXIS BIOPSY SERV SINGLE/MU FOUNDATIO LTIPLE EGD 27210 GAIL SANCHEZ, INSERT 9 MEDICAL ALEXIS GUIDE SERV WIRE FOUNDATIO [place] [address] PATHOLOGY PATHOLOGY SURG 9 & & PATHOLOGY CYTOLOGY CYTOLOGY LAB LAB [facility] ROSCOPIC EXAM ESOPHAGOG 4516 LINETTE SUE ASTRODUOD 9 [facility] ENOSCOPY INC INC WITH CLOSED BIOPSY DILATION 4292 LINETTE SUE OF 9 [facility] [place] [address] LINETTE SUE INFUSION 9 [facility] THERAPY INC INC PROPHYLAX IS/DX [place] EGD 69815 LINETTE SUE BALLOON 9 [facility] DILATION INC INC ESOPHAGUS <30 [place] [address] LINETTE SUE INFUSION 9 [facility] THERAPY/P INC INC ROPHYLAXI S /DX 1ST TO 1 HR SPECIAL 93089 PATHOLOGY PATHOLOGY STAIN 9 & & GROUP 1 CYTOLOGY CYTOLOGY MICROORGA LAB LAB NISVT I&R HEPATBL 66869 [facility] SYS 9 MEDICAL OLES[place] [address] LINETTE SUE ABDOMINAL 9 [facility] REAL INC [place] TIME W/[place] [address] BISHNU PAREDES, RETROPERI 9 [facility] A REAL TIME PSC W/IMAGE LIMITED LIPID 86039 LINETTE SUE PANEL 9 [facility] INC INC ECG 43439 LINETTE GREENES[place], ROUTINE [address] [facility] W/LEAST PROF SERV 12 LDS I&[place] [address] [facility] AND[facility]A HEAD/BRAI 9 MEDICAL OLESYA N W/O IMAGING CONTRAST ASSOCIATE MATERIAL S RADIOLOGI 48969 [facility] PALENCIA 9 MEDICAL OLESYA EXAMINATI IMAGING ON CHEST ASSOCIATE SINGLE S VIEW FRONTAL CREATINE 85024 LINETTE SUE KINASE 9 [facility] TOTAL INC INC COMPREHEN 96900 LINETTE SUE SIVE 9 [facility] METABOLIC INC INC PANEL BASIC 41715 LINETTE SUE METABOLIC 9 [facility] PANEL INC INC CALCIUM TOTAL ECG 26781 LINETTE SUE ROUTINE 9 [facility] ECG INC INC W/LEAST 12 LDS TRCG ONLY W/O I&R 3D 40878 LINETTE SUE RENDERING 9 [facility] W/INTERP INC INC & POSTPROCE SS SUPERVISI ON BLOOD 15933 LINETTE SUE COUNT 9 [facility] COMPLETE INC INC AUTO&AUTO DIFRNTL WBC CREATINE 35569 LINETTE SUE KINASE MB 9 [facility] [place] [address] LINETTE SUE TROPONIN 9 [facility] [place] [address] LEONEL ZULLY, ANGIOGRAP 9 MEDICAL OLESYA HY IMAGING ABDOMEN ASSOCIATE W/CONTRAS S T/[place] [address] LEONEL ZULLY, ANGIOGRAP 9 MEDICAL OLESYA HY CHEST IMAGING W/CONTRAS ASSOCIATE T/NONCONT S RAST DUPLEX 02772 LINETTE SUE SCAN 9 [facility] EXTRACRAN INC INC IAL ART COMPL BI STUDY MRI BRAIN 57489 OLESYA C ZULLY, BRAIN 8 ZULLY OLESYA STEM W/O W/CONTRAS T MATERIAL LIPID 41328 LINETTE SUE PANEL 8 [facility] INC INC COMPREHEN 55210 LINETTE SUE SIVE 8 [facility] METABOLIC INC INC PANEL SPECIAL 44823 [facility] STAIN 8 CLINIC CLINIC GROUP 1 LABORATOR LABORATOR MICROORGA Y Y NISMS I&[place] [address] [facility] SURG 8 CLINIC CLINIC PATHOLOGY LABORATOR LABORATOR Y Y [place] [address] [facility], ABDOMINAL 8 [facility] REAL CLINIC [place] PSC W/[place] [address] [facility], RETROPERI 8 [facility] TONEAL CLINIC REAL TIME PSC W/IMAGE LIMITED COLLECTIO 37169 [facility] N VENOUS 8 CLINIC CLINIC BLOOD LABORATOR LABORATOR VENIPUNCT Y Y URE ANTIBODY 55840 [facility] HELICOBAC [address] [place] [address] LINETTE SUE ANGIOGRAP 8 [facility] HY INC INC ABDOMEN W/CONTRAS T/NONCONT RAST BLOOD 32276 LINETTE SUE COUNT 8 [facility] COMPLETE INC INC AUTO&[place] [address] LINETTE SUE TROPONIN 8 [facility] QUANTITAT INC INC RUPA CREATINE 70275 LINETTE SUE KINASE MB 8 [facility] FRACTION INC INC ONLY PROTHROMB 83159 LINETTE SUE IN TIME 8 [facility] INC INC ECG 53543 LINETTE MCCLAIN, ROUTINE 8 [facility] W/LEAST PROF SERV 12 LDS I&R ONLY CREATINE 59105 [facility] KINASE 8 [facility] TOTAL INC INC THROMBOPL 43518 [facility] SUE ASTIN 8 [facility] TIME INC INC PARTIAL PLASMA/WH OLE BLOOD RADIOLOGI 17263 Marbella LAWSON 8 MEDICAL CHAD P EXAMINATI IMAGING ON CHEST ASSOCIATE SINGLE S VIEW FRONTAL BASIC 95812 [facility] METABOLIC 8 [facility] PANEL INC INC CALCIUM TOTAL ECG 66659 [facility] SUE ROUTINE 8 [facility] ECG INC INC W/LEAST 12 LDS TRCG ONLY W/O I&R RADEX 39796 [facility] SUE SPINE 8 [facility] LUMBOSACR INC INC AL MINIMUM 4 VIEWS OPHTH 37073 KANE [place], MEDICAL 8 MICHAEL A MICHAEL A XM&EVAL COMPRE NEW PT 1/> VST DUPLEX 96886 NESSA LI 8 [facility] EXTRACRAN IMAGING IAL ART ASSOCIATE COMPL BI S STUDY RADIOLOGI 87245 Marbella LI 8 [facility] EXAMINATI IMAGING ON CHEST ASSOCIATE SINGLE S VIEW FRONTAL AMB A0422 DAVID HERNANDEZ OXYGEN&O2 8 [facility] AMB[facility] SUPPLIES SERVICE [place] [address] LEONEL ANDREA HEAD/BRAI 8 [facility] N W/O IMAGING CONTRAST ASSOCIATE MATERIAL S AMB A0427 DAVID HERNANDEZ SERVICE 8 [facility] AMBULANCE ALS SERVICE SERVICE EMERGENCY TRANSPORT LEVEL 1 3D 91013 LEONEL ANDREA, RENDERING 8 [facility] W/INTERP IMAGING & ASSOCIATE [place] 3D [address] LEONEL ANDREA, RENDERING 8 [facility] IMAGING W/INTERP& ASSOCIATE POSTPROC S DIFF WORK STATION GROUND A0425 BROWN BROWN MILEAGE 8 AMBULANCE AMBULANCE [place] [address] [facility] ZULL[place], CERVICAL 8 [facility] SPINE W/O IMAGING CONTRAST ASSOCIATE MATERIAL S IODINE A9516 [facility] I-123 8 [facility] SODIUM INC INC IODIDE DX PER 100 UCI TO 999 THYROID 85230 LEONEL LUDY, IMAGING 8 MEDICAL CHAD P W/UPTAKE IMAGING SINGLE ASSOCIATE DETERMINA S TION THYROID 74497 [facility] S[facility] UPTAKE 8 [facility] SINGLE INC INC DETERMINA TION COMPREHEN 57494 [facility] SUE SIVE 8 [facility] METABOLIC INC INC PANEL ECG 60563 [facility] ROUTINE 8 [facility] ECG INC INC W/LEAST 12 LDS TRCG ONLY W/O I&R URNLS DIP 68649 [facility] SUE 8 [facility] STICK/TAB INC INC LET REAGENT AUTO MICROSCOP Y BLOOD 77585 [facility] COUNT 8 [facility] COMPLETE INC INC AUTO&AUTO DIFRNTL WBC CREATINE 31625 [facility] SUE KINASE MB 8 [facility] [place] [address] [facility] S[facility] TROPONIN 8 [facility] QUANTITAT INC INC RUPA CREATINE 26909 [facility] S[facility] KINASE 8 [facility] TOTAL INC INC ECG 03892 LINETTE MCCLAIN ROUTINE 8 [facility] W/LEAST PROF SERV 12 LDS I&R ONLY COLLECTIO 12895 [facility] N VENOUS 8 [facility] BLOOD LABORATOR LABORATOR VENIPUNCT Y Y URE URNLS DIP 96542 [facility] 8 [facility] STICK/TAB LABORATOR LABORATOR LET Y Y REAGENT AUTO MICROSCOP Y RENAL 55787 [facility] FUNCTION 8 [facility]IC CL[facility] PANEL LABORATOR LABORATOR Y Y ECG 69422 [facility] [place] ROUTINE 8 [facility] W/LEAST PROF SERV 12 LDS I&R ONLY ECG 00339 [facility] SUE ROUTINE 8 [facility] ECG INC INC W/LEAST 12 LDS TRCG ONLY W/O I&R OBSERVATI 66114 [place] ELIAS, ON CARE 8 [facility] DISCHARGE [facility] G0378 [facility] OBSERVATI 8 [facility] ON INC INC SERVICE PER HOUR CREATINE 82057 [facility] SUE KINASE MB 8 [facility] [place] [address] [facility] SUE TROPONIN 8 [facility] QUANTITAT INC INC RUPA CREATINE 89428 [facility] S[facility] KINASE 8 [facility] TOTAL INC INC RHYTHM 62746 [facility] SUE ECG 1-3 8 [facility] LEADS INC INC TRACING ONLY W/O I&R PROTHROMB 75299 [facility]UE IN TIME 8 [facility] INC INC INITIAL 84029 NANDINI BOOEY, OBSERVATI 8 [facility] ON INTERNAL CARE/DAY MED 30 [place] [address] [facility]ONIN 8 [facility] QUANTITAT INC INC RUPA CREATINE 88836 [facility] KINASE MB 8 [facility] FRACTION INC INC ONLY BLOOD 95133 [facility]UE COUNT 8 [facility] COMPLETE INC INC AUTO&AUTO DIFRNTL WBC ECG 76670 [facility] ROUTINE 8 [facility] ECG INC INC W/LEAST 12 LDS TRCG ONLY W/O I&R BASIC 70793 [facility] METABOLIC 8 [facility] PANEL INC INC CALCIUM TOTAL ECG 03400 LINETTE [place], ROUTINE 8 [facility] ECG HOSPITAL W/LEAST PROF SERV 12 LDS I&R ONLY RADIOLOGI 47638 [facility] P EXAMINATI IMAGING ON CHEST ASSOCIATE SINGLE S VIEW FRONTAL CREATINE 97649 [facility] KINASE 8 [facility] TOTAL INC INC CT THORAX 81264 Dawn LAWSON [facility] P W/CONTRAS IMAGING T ASSOCIATE MATERIAL S US SOFT 64289 [facility] TISSUE 8 [facility] HEAD & INC INC NECK REAL TIME IMGE DOCM 3D 47932 [facility]in [place], RENDERING 8 MEDICAL CHAD P IMAGING W/INTERP& [place] [address] LEONEL BOSTON, ABDOMEN 8 MEDICAL CHAD P W/CONTRAS IMAGING T ASSOCIATE MATERIAL S RADEX 25487 [facility] S[facility] SPINE 8 [facility] CERVICAL INC INC [address] PELVIS 11668 [facility] SUE 8 [facility] W/[place] [address] [facility] S[facility] THYROID 8 [facility] STIMULATI INC INC NG HORMONE TSH CYANOCOBA 70212 [facility]UE JUAN 8 [facility] VITAMIN INC INC B-12 BLOOD 00869 [facility] COUNT 8 [facility] COMPLETE INC INC AUTO&[place] [address] [facility] S[facility] FOLIC 8 [facility] ACID INC INC SERUM HEMOGLOBI 86313 [facility] N 8 [facility] GLYCOS[place] [address] [facility] S[facility] THYROXINE 8 [facility] TOTAL INC INC LIPID 36479 [facility] S[facility] PANEL 8 [facility] INC INC COMPREHEN 15001 [facility] SIVE 8 [facility] METABOLIC INC INC PANEL BASIC 11995 [facility] S[facility] METABOLIC 8 [facility] PANEL INC INC CALCIUM TOTAL INJECTION 29574 [place] MELINA, CARDIAC 8 [facility] & AMADOR Y CATHJ L VASCULAR VENTR/L ASSOC ATR ANGIOGRAP H ECG 49935 [facility] ROUTINE [facility] ECG INC INC W/LEAST 12 LDS TRCG ONLY W/O I&R L HRT 28011 [place] MELINA CATHETERI 8 HEART & AMADOR Y ZATION VASCULAR [place] [address] [place] MELINA, C-CATHJ 8 HEART & AMADOR Y F/SLCTV C VASCULAR ANGRPH ASSOC I SI&R 68323 [place] MELINA, F/NJX PX 8 HE[facility] & AMADOR Y DURING VASCULAR C-CATHJ ASSOC VENTR&/AT R ANGRPH I SI&R 68062 LEONEL SUMMERS, Donya/NJX PX 8 HEART & AMADOR Y DURING VASCULAR C-CATHJ ASSOC PULM&/OR SELECT LIPID 53039 [facility] PANEL 8 [facility] INC INC ECG 45650 LEONEL RAYMONDJI, ROUTINE 8 HEART & NEZAR M ECG VASCULAR W/LEAST ASSOC 12 LDS I&R ONLY CREATINE 14391 [facility] KINASE 8 [facility] TOTAL INC INC INITIAL 71546 LEONEL SUMMERS, INPATIENT 8 HEART & AMADOR Y CONSULT VASCULAR NEW/ESTAB ASSOC PT 80 MIN HOSPITAL [id number] [facility] SUE OBSERVATI 8 [facility] [place] [address] LIN[facility] SUE TROPONIN 8 [facility] QUANTITAT INC INC RUPA CREATINE 74473 LINET[facility] SUE KINASE MB 8 [facility] FRACTION INC INC ONLY BLOOD 99826 [facility] SUE COUNT 8 [facility] COMPLETE INC INC AUTO&AUTO DIFRNTL WBC GROUND A0425 [facility] 8 AMBULANCE AMBULANCE PER SERVICE SERVICE STATUTE MILE NONINVASI 84583 [facility]UE VE 8 [facility] EAR/PULSE INC INC OXIMETRY SINGLE DETER NONINVASI 14689 [facility] VE 8 [facility] EAR/PULSE INC INC OXIMETRY SINGLE DETER RHYTHM 86406 LINET[facility] SUE ECG 1-3 8 [facility] LEADS INC INC TRACING ONLY W/O I&R ECG 32296 LINETTE MCCLAIN, ROUTINE 8 [facility] ECG HOSPITAL W/LEAST PROF SERV 12 LDS I&R ONLY PROTHROMB 45701 [facility] SUE IN TIME 8 [facility] INC INC BLOOD 11758 [facility] COUNT 8 [facility] COMPLETE INC INC AUTO&AUTO DIFRNTL WBC H[facility]PITAL G0378 [facility] S[facility] OBSERVATI 8 [facility] ON INC INC SERVICE PER HOUR NATRIURET 79847 [facility] SUE IC 8 [facility] [place] [address] LIN[facility] SUE TROPONIN 8 [facility] QUANTITAT INC INC RUPA CREATINE 71636 LINETTE SUE KINASE MB 8 [facility] FRACTION INC INC ONLY CREATINE 71293 [facility] S[facility] KINASE 8 [facility] TOTAL INC INC THROMBOPL 03798 [facility] ASTIN 8 [facility] TIME INC INC PARTIAL PLASMA/WH OLE BLOOD RADIOLOGI 89113 [facility] SUE C 8 [facility] EXAMINATI INC INC ON CHEST SINGLE VIEW FRONTAL ECG 04558 [facility] ROUTINE 8 [facility] ECG INC INC W/LEAST 12 LDS TRCG ONLY W/O I&R COMPREHEN 26306 [facility] SIVE 8 [facility] METABOLIC INC INC PANEL MRI 46153 OLESYA C ZULLY, SPINAL 8 ZULLY OLESYA CANAL LUMBAR W/O CONTRAST MATERIAL MRI 87553 OLESYA C ZULLY, SPINAL 8 ZULLY OLESYA CANAL CERVICAL W/O CONTRAST MAT[facility] SERVICES 21359 Brigida CALVILLO 8 KRISTIAN DOSS C OFFICE PSC [facility]/N REG SCHED HOURS Encounters Encounter Start End Date Code Location Performer Type Date [facility] - 7 7 [facility] OUTPATIEN INC T OFFICE 39764 [facility] TOWNSEND [facility] 25 MINUTES HOSPITAL LINETTE - 7 7 [facility] OUTPATIEN INC T [facility] LINETTE - 7 7 [facility] OUTPATIEN INC T OFFICE 20611 [facility] PHYSICIAN T VISIT S GROUP 40 MINUTES HOSPITAL [facility] - 7 7 [facility] - 7 7 [facility] OUTPATIEN INC T OFFICE 10904 [facility] OUTPATIEN 7 7 PHYSICIAN T VISIT S GROUP 40 MINUTES OFFICE 91170 LAVINIA KATE OUTPATIEN 7 7 Kate TOWNSEND VISIT ,PSC 15 MINUTES HOSPITAL LINETTE - 7 7 [facility] OUTPATIEN INC T OFFICE 74576 [facility] OUTPATIEN 7 7 PHYSICIAN T VISIT S GROUP 40 MINUTES HOSPITAL [facility]ETTE - 7 7 [facility] OUTPATIEN INC T OFFICE 95434 [facility] CB OUTPATIEN 7 7 PHYSICIAN T VISIT 5 S GROUP MINUTES HOSPITAL [facility]ETTE - 7 7 [facility] OUTPATIEN INC T EMERGENCY 58244 DEMETRIS VIRK 7 7 PHYSICIAN JR [facility], [facility] T VISIT HIGH/URGE NT SEVERITY OFFICE 23367 LINETTE MCKEON 7 7 [facility] T VISIT HOSPITAL 10 P MINUTES EMERGENCY 94422 DEMETRIS ANDERS DEPT 7 7 PHYSICIAN VISIT S, [facility] HIGH SEVERITY& THREAT FUNJ EMERGENCY 79683 LINETTE 7 7 [facility] DEPARTMEN INC T VISIT LOW/MODER SEVERITY [facility]OSPITAL [facility] - 7 7 [facility] OUTPATIEN INC T OFFICE 45842 [facility] N[facility]AN OUTPATIEN 7 7 T NEW 30 CHIROPRAC MINUTES [facility] LINETTE - 7 7 [facility] OUTPATIEN INC T OFFICE 07207 LAVINIA KATE OUTPATIEN 7 7 Kate TOWNSEND VISIT ,PSC 25 MINUTES OFFICE 37678 LINETTE MCKEON 7 7 [facility] T VISIT 5 INC MINUTES HOSPITAL [facility]TE - 7 7 [facility] OUTPATIEN INC T [facility] - 7 7 [facility] OUTPATIEN INC T [facility]OSP[facility] - 7 7 [facility] OUTPATIEN INC T OFFICE 95658 [facility] OUTPATIEN 7 7 PHYSICIAN T VISIT S GROUP 25 MINUTES HOSPITAL [facility] - 7 7 [facility] OUTPATIEN INC T HOSPITAL [facility]TE - 7 7 [facility] OUTPATIEN INC T EMERGENCY 59727 DEMETRIS HUYNH DEPT 7 7 PHYSICIAN U VISIT S, PLLC HIGH SEVERITY& THREAT FUNCJ EMERGENCY 62138 LINETTE 7 7 [facility] DEPARTMEN INC T VISIT MODERATE SEVERITY HOSPITAL [facility] - 7 7 [facility] OUTPATIEN INC T OFFICE 49731 LINETTE LEIVA OUTPATIEN 7 7 [facility] T VISIT HOSPITAL 15 P MINUTES OFFICE 25613 [facility] GRETCHEN OUTPATIEN 7 7 [facility] T VISIT MEDICAL 15 G MINUTES HOSPITAL LINETTE - 6 6 [facility] OUTPATIEN INC T OFFICE 64416 [facility] OUTPATIEN 6 6 PHYSICIAN T VISIT S GROUP 25 MINUTES [facility] LINETTE - 6 6 [facility] OUTPATIEN INC T OFFICE 05957 LAVINIA TOWNSEND OUTPATIEN 6 6 KRISTIAN T GREG DOSS,[facility] 25 MINUTES OFFICE 42957 LINETTE LEIVA OUTPATIEN 6 6 [facility] T VISIT HOSPITAL 10 P MINUTES OFFICE 65801 KANE FERRARA OUTPATIEN 6 6 T VISIT 10 MINUTES [facility] LINETTE - 6 6 [facility] OUTPATIEN INC T EMERGENCY 93470 DEMETRIS ANDERS DEPT 6 6 PHYSICIAN CHARLEY VISIT S, PLLC HIGH SEVERITY& THREAT FUNCJ EMERGENCY 47485 LINETTE 6 6 [facility] DEPARTMEN INC T VISIT HIGH/URGE NT SEVERITY OFFICE 68552 LAVINIA KATYA OUTPATIEN 6 6 STEPHEN TOWNSEND MD,PSC MINUTES HOSPITAL LINETTE - 6 6 [facility] OUTPATIEN INC T HOSPITAL LINETTE - 6 6 [facility] OUTPATIEN INC T EMERGENCY 74148 DEMETRIS ANDERS 6 6 PHYSICIAN CHARLEY DEPARTMEN S, [facility] T VISIT HIGH/URGE NT SEVERITY EMERGENCY 74470 LINETTE 6 6 [facility] DEPARTMEN INC T VISIT MODERATE SEVERITY OFFICE 06598 [facility] CB TOD OUTPATIEN 6 6 PHYSICIAN T VISIT S GROUP 10 MINUTES HOSPITAL LINETTE - 6 6 [facility] OUTPATIEN INC T OFFICE 45558 [facility] CB TOD OUTPATIEN 6 6 PHYSICIAN T VISIT 5 S GROUP MINUTES OFFICE 92052 [facility] OUTPATIEN 6 6 PHYSICIAN CHARLEY T VISIT S GROUP 15 MINUTES HOSPITAL LINETTE - 6 6 [facility] OUTPATIEN INC T HOSPITAL LINETTE - 6 6 [facility] OUTPATIEN INC T OFFICE 88580 [facility] OUTPATIEN 6 6 PHYSICIAN MAT T VISIT S GROUP 25 MINUTES HOSPITAL LINETTE - 6 6 [facility] OUTPATIEN INC T OFFICE 90711 [facility] CB TOD CONSULTAT 6 6 PHYSICIAN ION S GROUP NEW/ESTAB PATIENT 30 MIN OFFICE 46598 [facility] OUTPATIEN 6 6 PHYSICIAN CHARLEY T VISIT S GROUP 10 MINUTES OFFICE 99990 [facility] OUTPATIEN 6 6 PHYSICIAN CHARLEY T VISIT S GROUP 10 MINUTES OFFICE 43161 BOYD ASHER OUTPATIEN 6 6 MD JERMAINE, T VISIT PSC 15 MINUTES OFFICE 77812 [facility] OUTPATIEN 6 6 PHYSICIAN CHARLEY T VISIT S GROUP 10 MINUTES OFFICE 20285 BOYD ASHER OUTPATIEN 6 6 MD JERMAINE, T VISIT PSC 15 MINUTES OFFICE 73299 PROGRESSI BANDAR OUTPATIEN 6 6 VE TEREZA T NEW 30 PODIATRY MINUTES OFFICE 85652 [facility] FRYMAN OUTPATIEN 6 6 PHYSICIAN EUG T VISIT S GROUP 15 MINUTES OFFICE 21930 BOYD BARRETT OUTPATIEN 6 6 MD JERAMINE, T VISIT PSC 25 MINUTES OFFICE 08200 [facility] OUTPATIEN 6 6 [facility] T VISIT INC 10 MINUTES HOSPITAL LIN[facility]TE - 6 6 [facility] OUTPATIEN [facility] T HOSPITAL LINETTE - 6 6 [facility] OUTPATIEN [facility] T HOSPITAL LINETTE - 6 6 [facility] OUTPATIEN [facility] UNIVERSIT - 6 6 Y [facility] T OFFICE 61113 [place] CONSULTAT 6 6 MEDICAL THO ION SERV NEW/ESTAB FOUNDATIO PATIENT N 40 MIN OFFICE 03871 [facility] 6 Y T VISIT 5 HOSPITAL MINUTES HOSPITAL LIN[facility]TE - 6 6 [facility] OUTPATIEN [facility] T OFFICE 64971 SCIFRES SCIFRES OUTPATIEN 6 6 ANG ANG T VISIT 10 MINUTES OFFICE 71800 BOYD ASHER OUTPATIEN 6 6 MD JERMAINE, T VISIT PSC 15 MINUTES HOSPITAL LINETTE - 6 6 [facility] OUTPATIEN INC T EMERGENCY 95753 [facility] 6 6 [facility] DEPARTMEN INC T VISIT HIGH/URGE NT SEVERITY [facility]OSPITAL [facility] - 6 6 [facility] OUTPATIEN [facility] T EMERGENCY 93524 DEMETRIS NIELSON DEPT 6 6 PHYSICIAN VISIT S, [facility] HIGH SEVERITY& THREAT [facility] LINETTE - 6 6 [facility] OUTPATIEN [facility] LINETTE - 6 6 [facility]PATIEN [facility] HOSPITAL LINETTE - 5 5 [facility] OUTPATIEN [facility] EMERGENCY 45755 [facility] 5 5 [facility] T VISIT LOW/MODER SEVERITY HOSPITAL LINETTE - 5 5 [facility] OUTPATIEN [facility] EMERGENCY 55921 DEMETRIS MOREL 5 5 PHYSICIAN DEPARTMEN S, [facility] T VISIT MODERATE SEVERITY OFFICE 87709 [facility] 5 5 PHYSICIAN CHARLEY T VISIT S GROUP 10 MINUTES OFFICE 49596 [facility] GRETCHEN OUTPATIEN 5 5 [facility] T VISIT MEDICAL 15 G MINUTES HOSPITAL LINETTE - 5 5 [facility] OUTPATIEN [facility] OFFICE 43607 BOYD ASHER OUTPATIEN 5 5 MD JERMAINE, T VISIT [facility] 15 MINUTES HOSPITAL LINETTE - 5 5 [facility] OUTPATIEN [facility] HOSPITAL LINETTE - 5 5 [facility] OUTPATIEN [facility] T OFFICE 30910 BOYD BARRETT OUTPATIEN 5 5 MD JERMAINE, T VISIT PSC 15 MINUTES HOSPITAL LINETTE - 5 5 [facility] OUTPATIEN [facility] T OFFICE 96186 LINETTE LEIVA OUTPATIEN 5 5 [facility] T VISIT HOSPITAL 10 P MINUTES EMERGENCY 23948 DEMETRIS HUYNH 5 5 PHYSICIAN Dee [facility] T VISIT HIGH/URGE NT SEVERITY OFFICE 24415 LINETTE ESCOBARKINS OUTPATIEN 5 5 [facility] 15 P MINUTES OFFICE 46559 FREDY DEAN ANJ OUTPATIEN 5 5 MD T VISIT 10 MINUTES HOSPITAL LINETTE - 5 5 [facility] OUTPATIEN INC T OFFICE 63277 CARDIOVAS [facility]O OUTPATIEN 5 5 CULAR MAT T VISIT CONSULTAN 15 TS O MINUTES HOSPITAL LINETTE - 5 5 [facility] OUTPATIEN INC T OFFICE 99009 FREDY PATTERSONX ANJ OUTPATIEN 5 5 T NEW 30 MINUTES HOSPITAL LINETTE - 5 5 [facility] OUTPATIEN INC T HOSPITAL LINETTE - 5 5 [facility] OUTPATIEN INC T OFFICE 33296 CARDIOVAS CHAYO OUTPATIEN 5 5 CULAR MAT T NEW 45 CONSULTAN MINUTES TS O HOSPITAL LINETTE - 5 5 [facility] OUTPATIEN INC T OFFICE 79776 [facility] OUTPATIEN 5 5 PHYSICIAN CHARLEY T VISIT S GROUP 10 MINUTES HOSPITAL LINETTE - 5 5 [facility] OUTPATIEN INC T EMERGENCY 61722 LINETTE 5 5 [facility] DEPARTMEN INC T VISIT HIGH/URGE NT SEVERITY OFFICE 32772 [facility] GRETCHEN OUTPATIEN 4 4 [facility] T VISIT MEDICAL 10 G MINUTES HOSPITAL LINETTE - 4 4 [facility] OUTPATIEN INC T HOSPITAL LINETTE - 4 4 [facility] OUTPATIEN INC T OFFICE 26074 LEIVA LEIVA OUTPATIEN 4 4 ART ART T VISIT 15 MINUTES OFFICE 88705 LEIVA LEIVA OUTPATIEN 4 4 [facility] ART T VISIT 15 MINUTES EMERGENCY 58648 JAIDEN CAMILLA JAIDEN CAMILLA 4 4 DEPARTMEN T VISIT HIGH/URGE NT SEVERITY HOSPITAL [facility]TE - 4 4 [facility] OUTPATIEN INC T OFFICE 56006 GRETCHEN GODINEZ OUTPATIEN 4 4 JUDAH TREVINO T NEW 45 MINUTES OFFICE 44757 [facility] OUTPATIEN 4 4 [facility] T VISIT 10 MINUTES EMERGENCY 29563 LINETTE 4 4 [facility] DEPARTMEN INC T VISIT MODERATE SEVERITY EMERGENCY 51844 [facility] 4 4 III AREN III AREN DEPARTMEN T VISIT HIGH/URGE NT SEVERITY HOSPITAL LINETTE - 4 4 [facility] OUTPATIEN INC T HOSPITAL LINETTE - 4 4 [facility] OUTPATIEN INC T EMERGENCY 06828 [facility] DEPT 4 4 III AREN III AREN VISIT HIGH SEVERITY& THREAT FUN OFFICE 79425 [facility] ANDERS OUTPATIEN 4 4 CHARLEY CHARLEY T NEW 30 MINUTES EMERGENCY 07763 LINETTE DEPT 4 4 [facility] VISIT INC HIGH SEVERITY& THREAT [facility] LINETTE - 4 4 [facility] OUTPATIEN INC T OFFICE 00479 VITA TREVINO OUTPATIEN 4 4 T NEW 45 MINUTES HOSPITAL LINETTE - 3 3 [facility] OUTPATIEN INC T OFFICE 55087 NATHALY ANDERSEN OUTPATIEN 3 3 JR AREN JR AREN T VISIT 15 MINUTES HOSPITAL [facility] 43862 UNIVERSIT OUTPATI 3 3 Y T NEW 10 HOSPITAL MINUTES OFFICE 24058 POPEYE PHI POPEYE PHI CONSULTAT 3 3 ION NEW/ESTAB PATIENT 40 MIN HOSPITAL LINETTE - 3 3 [facility] OUTPATIEN INC T OFFICE 64891 MCKEMIE MCKEMIE OUTPATIEN 3 3 JR AREN YOUNGER T VISIT 15 MINUTES HOSPITAL LINETTE - 3 3 [facility] OUTPATIEN INC T HOSPITAL LINETTE - 3 3 [facility] OUTPATIEN INC T HOSPITAL LINETTE - 3 3 [facility] OUTPATIEN [facility] T HOSPITAL LINETTE [facility] 3 3 [facility] OUTPATIEN [facility] T OFFICE 12664 LAUREN AGUILAR OUTPATIEN 3 3 [facility] T VISIT 15 MINUTES HOSPITAL LINETTE - 3 3 [facility] OUTPATIEN [facility] T OFFICE 29054 MCKEMIE MCKEMIE OUTPATIEN 3 3 JR AREN YOUNGER T VISIT 15 MINUTES OFFICE 11737 MCKEMIE MCKEMIE OUTPATIEN 3 3 JR AREN YOUNGER T VISIT 15 MINUTES HOSPITAL LINETTE - 3 3 [facility] OUTPATIEN [facility] T OFFICE 13537 MCKEMIE MCKEMIE OUTPATIEN 3 3 JR AREN YOUNGER T VISIT 15 MINUTES Emergency SERGIO BRADFORD MD (ER) 3 15:33 3 19:06 [facility] EMERGENCY 66755 LINET[facility] 3 3 [facility] DEPARTMEN INC T VISIT LOW/MODER SEVERITY HOSPITAL LINETTE - 3 3 [facility] OUTPATIEN INC T EMERGENCY 73675 VOLODYMYR BRADFORD [address] [facility] SERVICES T VISIT HIGH/URGE NT SEVERITY OFFICE 96040 MCKEMIE MCKEMIE OUTPATIEN 3 3 JR AREN YOUNGER T VISIT 15 MINUTES Emergency SERGIO Linette (ER) 3 18:40 3 21:51 [facility] LINETTE - 3 3 [facility] OUTPATIEN INC EMERGENCY 43561 LINETTE 3 3 [facility] DEPARTMEN [facility] T VISIT HIGH/URGE NT SEVERITY EMERGENCY 19512 [facility] DEPT 3 3 CHARLEY CHARLEY VISIT HIGH SEVERITY& THREAT [facility] LINETTE - 3 3 [facility] OUTPATIEN [facility] T OFFICE 20425 NATHALY ANDERSEN OUTPATIEN 3 3 JR AREN YOUNGER T VISIT 15 MINUTES EMERGENCY 84045 [facility] DEPT 3 3 CHARLEY [facility] VISIT HIGH SEVERITY& THREAT [facility] EMERGENCY 31686 LINETTE 3 3 [facility] DEPARTMEN [facility] T VISIT HIGH/URGE NT SEVERITY HOSPITAL LINETTE - 3 3 [facility] OUTPATIEN [facility] HOSPITAL LINETTE - 2 2 [facility] OUTPATIEN [facility] HOSPITAL LINETTE - 2 2 [facility] OUTPATIEN [facility] T OFFICE 47656 CALI ESCOBARKINS OUTPATIEN 2 2 ART CORDOVA T VISIT 5 MINUTES HOSPITAL LINETTE - 2 2 [facility] OUTPATIEN [facility] HOSPITAL LINETTE - 2 2 [facility] OUTPATIEN [facility] T OFFICE 39047 CALI ESCOBARKINS OUTPATIEN 2 2 ART CORDOVA T NEW 20 MINUTES HOSPITAL LINETTE - 2 2 [facility] OUTPATIEN INC T OFFICE 09353 JAMA YUN OUTPATIEN 2 2 ARPAN ANTONY T VISIT 15 MINUTES HOSPITAL LINETTE - 2 2 [facility] OUTPATIEN [facility] T OFFICE 79730 JAMA YUN OUTPATIEN 2 2 ARPAN ANTONY T VISIT 15 MINUTES OFFICE 24821 NICK ROMERO OUTPATIEN 2 2 CARLOTA JAM T NEW 60 MINUTES OFFICE 80820 MCKEMIE MCKEMIE OUTPATIEN 2 2 JR AREN YOUNGER T VISIT 15 MINUTES HOSPITAL LINETTE - 2 2 [facility] OUTPATIEN INC T OFFICE 79931 JOHNY MCCLAIN OUTPATIEN 2 2 CAMILLA CAMILLA T VISIT 25 MINUTES OFFICE 58819 KANE FERRARA OUTPATIEN 2 2 T VISIT 10 MINUTES EMERGENCY 69682 [facility] DEPT 2 2 III AREN III AREN VISIT HIGH SEVERITY& THREAT [facility] LINETTE - 2 2 [facility] OUTPATIEN INC T EMERGENCY 03066 LINET[facility] 2 2 [facility] DEPARTMEN INC T VISIT HIGH/URGE NT SEVERITY OFFICE 29473 MCKEMIE MCKEMIE OUTPATIEN 2 2 JR AREN YOUNGER T VISIT 15 MINUTES OFFICE 84409 EDGE DONNIE FRANCES [facility] OUTPATIEN 2 2 T NEW 10 MINUTES HOSPITAL LINETTE - 2 2 [facility] OUTPATIEN INC T OFFICE 95350 ODALYS LB ODALYS LB OUTPATIEN 2 2 T VISIT 10 MINUTES EMERGENCY 76181 [facility] DEPT 2 2 III AREN III AREN VISIT HIGH SEVERITY& THREAT [facility] EMER[facility]ENC[facility] 99221 LINETTE 2 2 [facility] DEPARTMEN INC T VISIT MODERATE SEVERITY HOSPITAL LIN[facility]TE - 2 2 [facility] OUTPATIEN INC T HOSPITAL LINETTE - 1 1 [facility] OUTPATIEN INC T EMERGENCY 11613 BARAHONA MICHELLE BARAHONA MICHELLE DEPT 1 1 VISIT HIGH SEVERITY& THREAT FUNCJ EMERGENCY 83646 LINETTE 1 1 [facility] DEPARTMEN INC T VISIT MODERATE SEVERITY OFFICE 32408 [facility] OUT[facility] 1 1 [place] [facility] T VISIT INTERNAL 25 MED MINUTES OFFICE 58002 ODALYS LB ODALYS LB OUTPATIEN 1 1 T NEW 30 MINUTES OFFICE 36598 NEW TAMIKO OUTPATIEN 1 1 [facility] 15 PSC MINUTES OFFICE 07780 NEW MITCH MAT OUTPATIEN 1 1 [facility]INIC 25 PSC MINUTES OFFICE 10032 [facility] 1 1 [place] T VISIT INTERNAL 25 MED MINUTES OFFICE 52630 BISHNU MCCORMACK CONSULTAT 1 1 [facility] NEW/ESTAB PSC PATIENT 80 MIN [facility] T OFFICE 62567 [facility]PATI[facility] 1 1 [facility] T VISIT INTERNAL 15 MED MINUTES [facility] - 1 1 [facility] OUT[facility] INC T EMERGENCY 83906 [facility] 1 1 [facility] DEPART[facility] INC T VISIT MODERATE SEVERITY EMERGENCY 20335 [facility]ODY[facility] CAMPOS DEPT 1 1 EMERGENCY III [facility] VISIT SERVICES HIGH SEVERITY& THREAT [facility] OFFICE 49330 [facility] OUTPATIEN 1 1 [place] [facility] T VISIT INTERNAL 25 MED MINUTES OFFICE 44482 [facility] OUTPATIEN 1 1 [place] [facility] T VISIT INTERNAL 25 MED MINUTES [facility] - 1 1 [facility] INC T OFFICE 38274 [facility] OUTPATIEN 1 1 [place] [facility] T [facility]ISIT INTERNAL 25 MED MINUTES [facility] - 1 1 [facility] INC [facility] - 1 1 [facility] INC T OFFICE 05677 [facility]PAT[facility] 1 1 [facility] VISIT INTERNAL 15 MED MINUTES EMERGENCY 16178 [facility] 1 1 [facility] T VISIT HIGH/URGE NT SEVERITY [facility] - 1 1 [facility] OUTPATI[facility] INC T EMERGENCY 49554 VOLODYMYR CAMPOS DEPT 1 1 EMERGENCY III AREN VISIT SERVICES HIGH SEVERITY& THREAT FUNCJ OFFICE 77423 [facility] MCKEMIE OUTPATIEN 1 1 NAHUN YOUNGER T VISIT INTERNAL 15 MED MINUTES OFFICE 78672 [facility] MCK[facility] OUTPATIEN 1 1 NAHUN YOUNGER VISIT INTERNAL 15 MED MINUTES [facility] - 1 1 [facility]EN [facility] T OFFICE 36533 [facility] 1 1 [facility] VISIT INTERNAL 15 MED MINUTES [facility] 1 [facility] T OFFICE 10033 [facility] LA[facility]EN OUTPATIEN 1 1 [facility] VISIT INTERNAL 15 MEDI MINUTES OFFICE 19067 [facility] MCKEMIE OUTPATIEN 0 0 NAHUN YOUNGER T VISIT INTERNAL 15 MED MINUTES [facility] - 0 0 [facility] INC T OFFICE 38492 [facility] MCKEMIE OUTPATIEN 0 0 NAHUN YOUNGER T VISIT INTERNAL 15 MED MINUTES EMERGENCY 95179 VOLODYMYR BOURNE DEPT 0 0 EMERGENCY VISIT SERVICES HIGH SEVERITY& THREAT FUNCJ OFFICE 98922 [facility] OUT[facility] 0 0 NAHUN SAMPSON VISIT INTERNAL 15 MED MINUTES OFFICE 29366 BISHNU Aguilar OUTPATIEN 0 0 [facility] 15 PSC MINUTES OFFICE 53706 [facility] MCKEMIE OUTPATIEN 0 0 NAHUN Kate VISIT INTERNAL MCKAYLA F 15 MED MINUTES EMERGENCY 67288 [facility] 0 0 [facility] T VISIT HIGH/URGE NT SEVERITY [facility] T OFFICE 66511 ALLRAN ALLRAN CONSULTAT 0 0 JR CECELIA, ANH ADI Naqvi NEW/ESTAB PATIENT 80 MIN OFFICE 14534 [facility] MCKEM[facility] OUTPATIEN 0 0 Kate GARNICA JR VISIT INTERNAL MCKAYLA F 15 MED MINUTES [facility] T OFFICE 53876 [facility] MCKEM[facility] OUTPATIEN 9 9 Kate GARNICA JR VISIT INTERNAL MCKAYLA F 15 MED MINUTES [facility] - 9 9 [facility] T OFFICE 77650 GAIL SANCHEZ OUTPATIEN 9 9 ULI ALEXIS T VISIT SERV 25 FOUNDATIO MINUTES [facility] - 9 9 [facility] - 9 9 [facility] T OFFICE 26863 [facility] JOHNY OUTPATIEN 9 9 NAHUN Allred T VISIT INTERNAL 15 MED MINUTES OFFICE 50759 Lauren WAYNE OUTPATIEN 9 9 [facility] T VISIT CLINIC 15 PSC MINUTES OFFICE [id number] [facility] OUTPATIEN 9 9 Kate GARNICA JR VISIT INTERNAL MCKAYLA F 15 MED MINUTES EMERGENCY 87081 VOLODYMYR MASON, DEPT 9 9 [facility] VISIT SERVICES O HIGH SEVERITY& ASSOCIATE THREAT S FUN EMERGENCY 36982 [facility] 9 9 [facility] T VISIT HIGH/URGE NT SEVERITY [facility] - 9 9 [facility] T OFFICE 15345 [facility] OUTPATIEN 9 9 Kate GARNICA JR VISIT INTERNAL MCKAYLA F 15 MED MINUTES OFFICE 52448 [facility] ELIAS, OUTPATIEN 9 9 NAHUN SHEFFIELD T VISIT INTERNAL 15 MED MINUTES OFFICE 16192 [facility] JOHNY, OUTPATIEN 9 9 NAHUN Allred T VISIT INTERNAL 10 MED MINUTES OFFICE 45553 [facility] OUTPATIEN 9 9 NAHUN RAI T VISIT INTERNAL MCKAYLA F 15 MED MINUTES [facility] - 9 9 [facility] T OFFICE 27960 [facility] ELIAS, OUTPATIEN 9 9 NAHUN SHEFFIELD T VISIT INTERNAL 15 MED MINUTES [facility] - 8 8 [facility] INC T OFFICE 67364 [facility] ELIAS, OUTPATIEN 8 8 NAHUN SHEFFIELD T VISIT INTERNAL 15 MED MINUTES OFFICE 00350 [facility] ELIAS, OUTPATIEN 8 8 NAHUN SHEFFIELD T VISIT INTERNAL 15 MED MINUTES OFFICE 74168 [facility] OUTPATIEN 8 8 Kate GARNICA JR VISIT INTERNAL MCKAYLA F 15 MED MINUTES OFFICE 24000 Lauren WAYNE OUTPATIEN 8 8 [facility] T VISIT CLINIC 15 PSC MINUTES HOSPITAL [facility] - 8 8 [facility] T EMERGENCY 74822 [facility] 8 8 [facility] DEPARTMEN INC T VISIT MODERATE SEVERITY EMERGENCY 73271 AMBERLY MASON, ILIANAT 8 8 [facility] VISIT CORPORATI O HIGH ON SEVERITY& THREAT FUNJ OFFICE 14283 [facility] OUTPATIEN 8 8 NAHUN RAI, T VISIT INTERNAL MCKAYLA F 15 MED MINUTES [facility] 8 [facility] T OFFICE 03471 [facility] OUTPATIEN 8 8 NAHUN RAI, T VISIT INTERNAL MCKAYLA F 15 MED MINUTES [facility] - 8 8 [facility] T OFFICE 29683 [facility] OUTPATIEN 8 8 NAHUN RAI, T VISIT INTERNAL MCKAYLA F 15 MED MINUTES OFFICE 92112 NEW BEN OUTPATIEN 8 8 GHENT III, T VISIT CLINIC RADHA L 10 PSC MINUTES OFFICE 28969 Lauren WAYNE CONSULTAT 8 8 [facility] NEW/ESTAB PSC PATIENT 60 MIN OFFICE 88068 [facility] [facility] OUTPATIEN 8 8 ANHUN RAI, T VISIT INTERNAL MCKAYLA F 15 MED MINUTES HOSPITAL [facility] - 8 8 [facility] OUT[facility] T EMERGENCY 97813 [facility] 8 8 [facility] DEPARTMEN INC T VISIT HIGH/URGE NT SEVERITY [facility] - 8 8 [facility] OUTPAT[facility] INC T EMERGENCY 76980 [facility] SMALL, 8 8 [facility] T VISIT PROF SERV MODERATE SEVERITY OFFICE 18420 NEW BEN OUTPATIEN 8 8 GHENT III, T NEW 45 CLINIC RADHA L MINUTES PSC EMERGENCY 69755 [facility] DEPT 8 8 [facility] VISIT INC HIGH SEVERITY& THREAT [facility] - 8 8 [facility] OUTPATIEN INC T PERIODIC 94369 [facility] [facility] PREVENTIV 8 8 NAHUN RAI, E MED EST INTERNAL MCKAYLA F PATIENT MED [id number] [facility] - 8 8 [facility] OUTPATIEN INC T OFFICE 88648 YAYO ZEE OUTPATIEN 8 8 LISBETH Love VISIT 40 MINUTES [facility]OSPITAL [facility] - 8 8 [facility]EN [facility] - 8 8 [facility]IEN [facility] EMERGENCY 16065 [facility] 8 8 [facility]URGE NT [facility]VERITY EMERGENCY 30081 [facility] COLMENARES DEPT 8 8 [facility] VISIT HOSPITAL HIGH PROF SERV SEVERITY& THREAT FUNCJ OFFICE 76379 YAYO ZEE OUTPATIEN 8 8 LISBETH Love VISIT 40 MINUTES OFFICE 28562 GAIL NYE, CONSULTAT 8 8 [facility] SERV NEW/ESTAB FOUNDATIO PATIENT 40 MIN OFFICE 13182 MIKE BURGER 8 8 KRISTIAN Love VISIT PSC 15 MINUTES
--- OUTSIDE RECORDS SUMMARY | 2017-09-05 04:02 | External Medical Summary Rpt ---
Author Author , LUIS EDUARDO HOFF Address Unknown Phone luis Care Team Providers Care Advertising Agency Manager Name Role Phone [facility], [facility]ARE Unavailable [...] Unavailable DANIEL, ALEXIS, Unavailable Unavailable DANIEL, ALEXIS [facility] Unavailable Unavailable SERVICE, [facility] Unavailable Unavailable SERVICE[facility]available Unavailable SERVICE, [facility] BANDAR TEREZA, BANDAR [...] Unavailable [facility] [place] [facility] [place] [facility] [place] [facility] [place] EDGE DONNIE, EDGE DONNIE Unavailable [...] CHARLEY BARAHONA MICHELLE, BARAHONA MICHELLE Unavailable Unavailable [facility] Unavailable Unavailable INC, [facility] Unavailable Unavailable Hospital, [facility] Unavailable Unavailable HOSPITAL P, [facility] P ELIAS, ELIAS SHEFFIELD, Unavailable Unavailable NETTIE MIDDLETON ALEM, MIDDLETON ALEM Unavailable Unavailable MIDDLETON ALEM, MIDDLETON ALEM Unavailable Unavailable MIDDLETON, MICHAEL A, Unavailable Unavailable MIDDLETON, MICHAEL A [facility], Unavailable Unavailable [facility] WHITESIDE NISREEN, WHITESIDE NISREEN Unavailable Unavailable KATYA MITCHELL, KATYA Unavailable Unavailable MITCHELL JAMA NAN, JAMA Unavailable Unavailable NAN JAMA NAN, JAMA Unavailable Unavailable NAN [facility] Unavailable Unavailable MEDICAL G, [facility]available Unavailable DEPARTMENT, [facility] [place], [place] Unavailable Unavailable NANALBA E, Unavailable Unavailable ALBA [place] [facility] Unavailable Unavailable LABORATORY, [facility] [place] Unavailable Unavailable INTERNAL MED, [facility] Unavailable Unavailable [facility], [facility] FREDY NICHOLSON MD Unavailable Unavailable BUX MD MAJORS G, MAJORS G Unavailable Unavailable VITA HAM, VITA HAM Unavailable Unavailable VITA HAM, VITA HAM Unavailable Unavailable [facility] Unavailable Unavailable SERVICES, [facility] ROMERO JAM, Unavailable Unavailable ROMEROBARBARA ROMERO JAM, Unavailable Unavailable ROMERO JAM MCKEMIE JR AREN, Unavailable Unavailable MCKEMIE JR AREN MCKEMIE JR AREN, Unavailable Unavailable MCKEMIE JR AREN MCANNMARIEE , MCKAYLA Unavailable Unavailable F, NATHALY JR, MCKAYLA F MINEER EDELMIRA, MINEER Unavailable Unavailable EDELMIRA LUDY, CHAD P, Unavailable Unavailable LUDY CHAD P MOHAMMADZADEH, Unavailable Unavailable MOHAMMADZADEH MOHAMMADZADEH HAM, Unavailable Unavailable MOHAMMADZADEH HAM [facility] Unavailable Unavailable [facility], [facility] O'JENNIFER LISA, O'JENNIFER Unavailable Unavailable LISBETH GILMORE, Unavailable Unavailable LISBETH ZEE [facility] Unavailable [facility], [facility] [...] SHASHY JAROD, SHASHY Unavailable Unavailable JAROD DOMINGO, HCAYO Unavailable Unavailable CHAYO MAT, Unavailable Unavailable CHAYO [...] NYE MITCH MAT, MITCH MAT Unavailable Unavailable [facility], Unavailable Unavailable [facility] MORRISON W, MORRISON W Unavailable [...] Unavailable Unavailable KRISTIAN TOWNSEND Unavailable Unavailable Brigida TOWNSEND WRIGHT, Unavailable Unavailable Brigida C Purpose Continuity of Care Document - 12-04-2007 through 2016 Problems Code Diagnosis DOS Provider Status 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 [id number] SPONDYLOSIS 07-05-2017 [place] W/[place] TOWNSEND MYELOPATH/R ,[facility] ADICULOPATH Y CERV RGN [id number] SPONDYLOSIS 07-05-2017 [place] W/[place] TOWNSEND MYELOPATH/R ,[facility] ADICULOPATH Y LUMB RGN 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 TOWNSEND OPIATE ,[facility] ANALGESIC G19463 OTHER LONG 06-15-2017 [facility] TERM [facility] CURRENT INC DRUG THERAPY E119 TYPE 2 06-02-2017 [facility] DIABETES PHYSICIANS MELLITUS GROUP WITHOUT COMPLICATIO NS E785 HYPERLIPIDE 06-02-2017 [facility] LESTER PHYSICIANS UNSPECIFIED GROUP I119 HYPERTENSIV 06-02-2017 [facility] E HEART PHYSICIANS DISEASE GROUP WITHOUT HEART FAILURE 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 I712 THORACIC 06-02-2017 [facility] AORTIC PHYSICIANS ANEURYSM GROUP WITHOUT RUPTURE I714 ABDOMINAL 06-02-2017 [facility] AORTIC PHYSICIANS ANEURYSM GROUP WITHOUT RUPTURE R079 CHEST PAIN 06-02-2017 [facility] UNSPECIFIED PHYSICIANS GROUP R9439 ABNORMAL 05-26-2017 [facility] RESULT OTH PHYSICIANS CARDIOVASCU GROUP LR FUNCTION STUDY N75278 ENCOUNTER 05-26-2017 [facility] FOR PHYSICIANS PREPROCEDUR GROUP AL CARIOVASCUL AR EXAM I10 ESSENTIAL 05-13-2017 [facility] PRIMARY PHYSICIANS HYPERTENSIO GROUP N R9431 ABNORMAL 05-13-2017 [facility] ELECTROCARD PHYSICIANS IOGRAM GROUP [id number] ENCOUNTER 05-13-2017 [facility] FOR OTHER [facility] PREPROCEDUR INC AL EXAMINATION R1011 RIGHT UPPER 05-03-2017 [facility] ASS R935 ABN FIND DX 05-03-2017 [facility] IMAG OTH [facility] ABD REGIONS INC RETROPERITO NEUM D369 BENIGN 04-19-2017 [facility] NEOPLASM PHYSICIANS UNSPECIFIED GROUP SITE Z64255 PERSONAL 04-19-2017 [facility] HISTORY OF PHYSICIANS COLONIC GROUP POLYPS K210 GASTRO-ESOP 04-09-2017 [facility] JENSEN PHYSICIANS, REFLUX PLLC DISEASE W/ ESOPHAGITIS K828 OTHER 04-09-2017 [facility] ORNELAS PHYSICIANS, DISEASES OF PLLC GALLBLADDER K829 DISEASE OF 04-09-2017 [facility] GALLBLADDER MEDICAL IMAGING ASS UNSPECIFIED R109 UNSPECIFIED 04-09-2017 [facility] ABDOMINAL MEDICAL PAIN IMAGING ASS T59651 PERSONAL 04-09-2017 [facility] HISTORY OF [facility] P DEPENDENCE N411 CHRONIC 04-05-2017 [place] PROSTATITIS [facility] P N529 MALE 04-05-2017 [facility] P UNSPECIFIED K219 GASTRO-ESOP 04-02-2017 [facility] REFLUX [facility] DISEASE INC WITHOUT ESOPHAGITIS M5116 INTERVERTEB 04-02-2017 [facility] GLORIA PHYSICIANS, D/O PLLC W/RADICULOP ATHY LUMB RGN R1031 RIGHT LOWER 04-02-2017 [facility] PA[facility] IMAGING ASS M5382 OTHER 03-23-2017 [place] SPECIFIED CHIROPRACTI DORSOPATHIE C CENTE S CERVICAL REGION M5386 OTHER 03-23-2017 [place] SPECIFIED CHIROPRACTI DORSOPATHIE C CENTE S LUMBAR REGION E76976 OTHER 03-04-2017 [place] CERVICAL JUANI TOWNSEND MD,PSC MID-CERV REG UNS LEVEL K5900 CONSTIPATIO 02-13-2017 [facility] N MEDICAL UNSPECIFIED IMAGING ASS R112 NAUSEA WITH 02-13-2017 [facility] VOMITING MEDICAL UNSPECIFIED IMAGING ASS J449 CHRONIC 01-13-2017 [facility] P DISEASE UNS R0600 DYSPNEA 01-13-2017 [facility] UNSPECIFIED MEDICAL IMAGING ASS E039 HYPOTHYROID 11-11-2016 [place] ISM [facility] UNSPECIFIED INC N401 BENIGN 10-26-2016 [facility] P LW URINARY TRACT SX R350 FREQUENCY 10-26-2016 [facility] J58457 UNSPECIFIED 10-11-2016 [place] A[facility]M BLEPHARITIS LEFT LOWER EYELID J9811 ATELECTASIS 09-01-2016 [facility] R1013 EPIGASTRIC 09-01-2016 [place] PAIN [facility] P R7989 OTHER SPEC 09-01-2016 [facility] ABNORMAL MEDICAL FINDINGS IMAGING ASS BLOOD CHEMISTRY M791 MYALGIA 08-25-2016 [place] TOWNSEND MD,PSC M5090 CERVICAL 08-16-2016 [place] DISC [facility] DISORDER INC UNS UNS CERVICAL REGION K75274 PAIN IN 08-10-2016 [facility] RIGHT MEDICAL SHOULDER IMAGING ASS M5032 OTH CERV 08-10-2016 [facility] DISC MEDICAL DEGENERATIO IMAGING ASS N MID-CERVICA L REGION M542 CERVICALGIA 08-10-2016 [facility] R51 HEADACHE 08-10-2016 [facility] J7296SY CONTUSION 08-10-2016 [facility] UNS PART PHYSICIANS, HEAD PLLC INITIAL ENCOUNTER F2943EI UNSPECIFIED 08-10-2016 [facility] INJURY OF MEDICAL HEAD IMAGING ASS INITIAL ENCOUNTER J601HND STRAIN 08-10-2016 [facility] MUSCLE FASC PHYSICIANS, & TENDON PLLC NECK LEVL INIT ENC H351FPB UNSPECIFIED 08-10-2016 [facility] INJURY OF MEDICAL NECK IMAGING ASS INITIAL ENCOUNTER E34832F UNSPECIFIED 08-10-2016 [facility] SPRAIN RT PHYSICIANS, SHOULDER PLLC JOINT INITIAL ENC C3509NE UNS INJURY 08-10-2016 [facility] RT SHOULDER MEDICAL UPPER ARM IMAGING ASS INITIAL ENCNTR D126 BENIGN 07-29-2016 [facility] NEOPLASM OF LLC COLON UNSPECIFIED K635 POLYP OF 07-29-2016 [facility] COLON PHYSICIANS GROUP Z09 ENC F/U 07-29-2016 COMMUN[facility] EXAM AFTR ANESTH OF CMPL TX OTH THE BLUE THAN MALIG NEOPLSM Z1211 ENCOUNTER 07-29-2016 [facility] SCREENING PHYSICIANS MALIGNANT GROUP NEOPLASM OF COLON M4642 DISCITIS 05-14-2016 [facility] UNSPECIFIED PHYSICIANS CERVICAL GROUP REGION G8929 OTHER 04-23-2016 [facility] CHRONIC PHYSICIANS PAIN GROUP J40 BRONCHITIS 04-07-2016 [facility] NOT PHYSICIANS SPECIFIED GROUP ACUTE OR CHRONIC M5010 CERVICAL 03-29-2016 BOYD DEAN, DISC D/O , PSC W/RADICULOP ATHY UNS CERV RGN B351 TINEA 03-25-2016 PROGRESS[facility] UNGUIUM PODIATRY E1151 TYPE 2 DM 03-25-2016 [facility] W/DIAB PODIATRY PERIPH ANGIOPATHY W/O GANGRENE M2570 OSTEOPHYTE 03-25-2016 [facility] UNSPECIFIED PODIATRY JOINT J15247 PAIN IN 03-25-2016 [facility] LEFT TOES PODIATRY J0110 ACUTE 03-24-2016 [facility] FRONTAL PHYSICIANS SINUSITIS GROUP UNSPECIFIED [id number] UNS OPEN 03-24-2016 [facility] WOUND UNS PHYSICIANS TOES GROUP W/DAMAGE NAIL INITIAL M5030 OT 02-23-2016 [facility] CERVICAL [facility] DISC INC DEGENERATIO N UNS CERV REGION M5412 RADICULOPAT 02-23-2016 BOYD DEAN, HY CERVICAL , PSC REGION R200 ANESTHESIA 01-23-2016 [facility] OF SKIN MEDICAL IMAGING ASS Z8603 PERSONAL 01-23-2016 [facility] HISTORY MEDICAL NEOPLASM OF IMAGING ASS UNCERTAIN BEHAVIOR 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 R40317 UNSPECIFIED 01-14-2016 [place] [facility] PTOSIS OF SERV RIGHT FOUNDATION EYELID H9191 UNSPECIFIED 01-14-2016 [place] [facility] HEARING SERV LOSS RIGHT FOUNDATION EAR X98473 FACIAL 01-14-2016 [place] [facility] WEAKNESS SERV FOUNDATION R9089 OT 01-14-2016 [place] MEDICAL ABNORMAL SERV FIND ON DX FOUNDATION IMAGING CNTRL NERV SYS O49715 PERSONAL 01-14-2016 [place] MEDICAL HISTORY 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 UNSPECIFIED Y83749 CONTACT 12-26-2015 [facility] ANG BLEPHAROCON JUNCTIVITIS RIGHT EYE M5136 OT 12-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 BURT MD, PSC RAL DISC DEGEN LUMBAR REGION R110 NAUSEA 12-03-2015 [facility] R140 ABDOMINAL 11-26-2015 [facility] DISTENSION MEDICAL GASEOUS IMAGING ASS B370 CANDIDAL 11-20-2015 [facility] STOMATITIS PHYSICIANS, [facility] E1121 TYPE 2 11-20-2015 [facility] DIABETES [facility] MELLITUS INC W/DIABETIC NEPHROPATHY J329 CHRONIC 11-13-2015 [facility] SINUSITIS PHYSICIANS UNSPECIFIED GROUP H5203 HYPERMETROP 09-08-2015 [place] A[facility] IA BILATERAL M797 FIBROMYALGI 08-29-2015 [facility] A [facility] INC 73452 DEGEN 07-28-2015 BOYD DEAN, LUMBAR/LUMB , PSC OSACRAL INTERVERTEB RAL DISC 7244 THORACIC/GINO 07-28-2015 [facility] DEAN MBSUNCRMARLON DOSS, PSC NEURITIS/RA DICULITIS UNSPEC 7291 UNSPECIFIED 07-28-2015 BOYD DEAN MYALGIA , PSC AND MYOSITIS V7109 OBSERVATION 07-23-2015 COMPREHEND OF OTHER INC SUSPECTED MENTAL CONDITION 70901 UNSPECIFIED 06-20-2015 [facility] ARTHROPATHY INC OTHER SPECIFIED SITES 6011 CHRONIC 06-03-2015 [place] PROSTATITIS [facility] P 56116 DEGEN 05-06-2015 [facility] THORACIC/TH MEDICAL ORACOLUMBAR IMAGING ASS INTERVERTEB RAL DISC 7231 CERVICALGIA 05-06-2015 [facility] 7245 UNSPECIFIED 05-06-2015 [facility] BACKACHE MEDICAL IMAGING ASS 7840 HEADACHE 05-06-2015 [facility] 8470 NECK SPRAIN 05-06-2015 [facility] AND STRAIN PHYSICIANS, PLLC 29161 HEAD 05-06-2015 [facility] INJURY, PHYSICIANS, UNSPECIFIED PLLC 98485 HYPERTROPHY 04-29-2015 [facility] W/UR OBST & HOSPITAL P OTH LUTS 84741 URINARY 04-29-2015 [facility] P 7224 DEGENERATIO 04-28-2015 M[facility] BUX N OF CERVICAL INTERVERTEB RAL DISC 7234 BRACHIAL 04-28-2015 FREDY DEAN NE[place]ITIS [place]IT[place] 39689 DIAB W/O 03-04-2015 [facility] COMP TYPE LAR II/UNS NOT CONSULTANTS STATED O UNCNTRL 2724 OTHER AND 03-04-2015 [facility] UNSPECIFIED [facility] INC HYPERLIPIDE LESTER 4019 UNSPECIFIED 03-04-2015 [facility] ESSENTIAL [facility] HYPERTENSIO INC N 55702 UNSPEC HTN 03-04-2015 [facility] HEART LAR DISEASE CONSULTANTS WITHOUT O HEART FAIL 20488 COR 03-04-2015 [facility] ATHEROSLERO [facility] UNSPEC INC TYPE VESSEL WRANGELL/XAVIER T 45775 OTHER 02-26-2015 [facility] DYSPNEA AND MEDICAL [place]AG[place] [address] CHEST PAIN 02-26-2015 [place] [facility] UNSPECIFIED SERV FOUNDATION 61316 OTHER CHEST 02-26-2015 [facility] PAIN PHYSICIANS GROUP 2449 UNSPECIFIED 01-09-2015 [facility] PHYSICIANS HYPOTHYROID GROUP ISM 74979 DISPLCMT 01-09-2015 [facility] LUMBAR PHYSICIANS INTERVERT GROUP DISC W/O MYELOPATHY 63139 OTHER 01-09-2015 [facility] MALAISE AND PHYSICIANS FATIGUE GROUP 49420 DIAB W/O 12-28-2014 [facility] MENTION [facility] COMP TYPE INC II/UNS TYPE UNCNTRL 2768 HYPOPOTASSE 12-28-2014 PSYCHIATRIC P 3319 UNSPECIFIED 12-28-2014 [facility] CEREBRAL MEDICAL DEGENERATIO IMAGING ASS N 7820 DISTURBANCE 12-28-2014 [facility] 87010 PRECORDIAL 12-28-2014 [facility] SERVICE 73892 VOMITING 12-28-2014 [facility] SERV[facility] V140 PERSONAL 12-28-2014 [facility] HISTORY OF [facility] P P[place] 4414 ABDOMINAL 11-14-2014 [facility] HEALTH WITHOUT MEDICAL G MENTION OF RUPTURE 490 BRONCHITIS 10-30-2014 [facility] NOT PHYSICIANS SPECIFIED GROUP ACUTE OR CHRONIC 03587 UNSPECIFIED 05-07-2014 [facility] ART ORCHITIS AND EPIDIDYMITI S 72221 OTHER 04-16-2014 [facility] CHRONIC [facility] PAIN INC 496 CHRONIC 04-16-2014 [facility] AIRWAY [facility] OBSTRUCTION INC NEC 7242 LUMBAGO 04-16-2014 JAIDEN CAMILLA V1582 PERS HX 04-16-2014 [facility] TOBACCO USE [facility] PRESENTING INC [facility] V5869 LONG-TERM 04-16-2014 [facility] (CURRENT) [facility] USE OF INC OTHER MEDICATIONS 31152 OTHER 04-02-2014 [facility] CONVULSIONS [facility] INC 8472 LUMBAR 04-02-2014 WE[facility] III SPRAIN AND AREN STRAIN E9179 OTHER 04-02-2014 [facility] III STRIKING AREN AGAINST W/WO SUBSEQUENT FALL 4139 OTHER AND 03-29-2014 [facility] UNSPECIFIED [facility] ANGINA INC PECTORIS 70662 ING ANDREW 03-29-2014 [facility] W/O MENTION BUBBA OBST/GANGRE N UNILAT/UNSP EC 5738 OTHER 03-29-2014 [facility] SPECIFIED BUBBA DISORDERS OF LIVER 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 11986 ABDOMINAL 03-29-2014 [facility] III PAIN OTHER AREN SPECIFIED SITE 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 38112 ACUTE 03-03-2014 [place] GASTRITIS [facility] WITHOUT INC MENTION OF HEMORRHAGE 36433 UNS 03-03-2014 [facility] GASTRITIS&G ASTRODUODIT IS W/O MENTION HEMORR 7213 LUMBOSACRAL 01-17-2014 [facility] TREVINO SPONDYLOSIS WITHOUT MYELOPATHY 7831 ABNORMAL 10-13-2013 [place] WEIGHT GAIN [facility] INC 41619 DIARRHEA 10-13-2013 [facility] INC V0481 NEED 08-23-2013 NATHALY RAI PROPHYLACTI AREN C VACCINATION &INOCULATIO N FLU 3510 BELLS PALSY 07-24-2013 [facility] 7218 OTHER 07-24-2013 [facility] DISORDERS OF SPINE 27513 OTH 07-18-2013 [place] [facility] W/O INTRACT INC W/O STATUS MIGRAINOSUS 90434 OTHER 06-18-2013 [facility] CONDITIONS BUBBA OF BRAIN 7220 DISPLCMT 06-18-2013 [facility] CERV BUBBA INTERVERT DISC WITHOUT MYELOPATHY 7249 OTHER 06-18-2013 [facility] UNSPECIFIED BUBBA BACK DISORDER V571 OTHER 05-28-2013 [place] PHYSICAL [facility]OS[facility] THERAPY INC 34308 UNSPECIFIED 03-06-2013 [facility] ARTHROPATHY [facility] P SHOULDER REGION 95396 PAIN IN 03-06-2013 [facility] JOINT, EMERGENCY SHOULDER SERVICES REGION 7295 PAIN IN 03-06-2013 [facility] SOFT BUBBA TISSUES OF LIMB 81804 OTHER 03-06-2013 [facility] NONSPECIFIC BUBBA ABNORMAL FINDING OF LUNG FIELD 22384 MICROSCOPIC 01-26-2013 NATHALY RAI HEMATURIA AREN 8460 SPRAIN AND 01-26-2013 NATHALY RAI STRAIN OF AREN LUMBOSACRAL 38489 OTHER 01-25-2013 [facility] DISEASES OF BUBBA SPLEEN 441.4 441.4 ABDOM 01-25-2013 Cable AORTIC [facility] ANEURYSM [facility] 4411 THORACIC 01-25-2013 [facility] ANEURYSM, BUBBA RUPTURED 558.9 558.9 01-25-2013 [facility] IT NEC 5589 OTH&UNSPEC 01-25-2013 [facility] P GASTROENTER ITIS&COLITI S 09543 HYPERTROPHY 01-25-2013 [facility] PROSTATE BUBBA W/O UR OBST & OTH LUTS 6019 UNSPECIFIED 12-30-2012 [facility] PROSTATITIS INC 7823 EDEMA 12-30-2012 [facility] INC 22000 UNSPECIFIED 12-29-2012 NATHALY YOUNGER CONSTIPATIO N 97129 ABDOMINAL 12-15-2012 [facility]00 ATHEROSCLER 12-14-2012 [facility] OSIS OF BUBBA AORTA 08496 ABDOMINAL 12-14-2012 [place] CHARLEY PAIN, UNSPECIFIED SITE 34223 HEMATURIA 08-29-2012 [facility] UNSPECIFIED MEDICAL IMAGING ASS 88308 OTHER 08-21-2012 [facility] SPECIFIED MEDICAL DISORDERS IMAGING ASS OF BLADDER 62045 ABDOMINAL 08-08-2012 [facility] PAIN RIGHT BUBBA LOWER QUADRANT 4419 AORTIC 08-01-2012 JAMA ANTONY ANEUR UNSPEC SITE WITHOUT MENTION RUPTURE 7881 DYSURIA 07-24-2012 JAMA ANTONY 38972 PRIMARY 06-14-2012 NICK LACRIMAL JAM ATROPHY 59731 VITREOUS 06-14-2012 NICK DEGENERATIO JAM N 69241 UNSPECIFIED 04-04-2012 KANE FERRARA BLEPHAROCON JUNCTIVITIS 65898 ESOPHAGEAL 04-04-2012 [facility]ON [facility] REFLUX 5533 DIAPHRAGMAT 04-04-2012 [facility] ANDREW W/O MENTION OBSTRUCTION /GANGREN 70521 OTHER LATE 03-25-2012 [facility] EFFECTS OF CEREBROVASC ULAR DISEASE V711 OBSERVATION 03-24-2012 [facility] FOR MEDICAL SUSPECTED IMAGING ASS MALIGNANT NEOPLASM 436 ACUTE BUT 02-28-2012 NATHALY RAI ILL-DEFINED AREN CEREBROVASC ULAR DISEASE 73701 UNS 12-22-2011 [facility] DON[facility]IE MALIGNANT NEOPLASM EYELID INCLUDING CANTHUS 91068 BASAL CELL 12-22-2011 [place] CARCINOMA ANESTHESIA OF EYELID ASSOC L INCLUDING CANTHUS 11023 OTHER 12-22-2011 [place] DONNIE CHRONIC DERMATITIS DUE TO SOLAR RADIATION 01048 OTHER 11-28-2011 [facility] SPECIFIED BUBBA ACQUIRED DEFORMITY OF HEAD 4660 ACUTE 10-11-2011 NATHALY RAI BRONCHITIS AREN 7862 COUGH 10-11-2011 [facility] 2392 NEOPLASMS 10-01-2011 [facility] LB UNSPEC NATURE BONE SOFT TISSUE&SKIN 7226 DEGENERATIO 09-21-2011 [place] INTERVERTEB INTERNAL RAL DISC MED SITE UNSPEC 23452 BLEPHARITIS 09-07-2011 ODAL[facility] LB , UNSPECIFIED 3670 HYPERMETROP 08-20-2011 ISHA IA VISION 21398 ABDOMINAL 07-27-2011 NEW PAIN RIGHT POY SIPPI UPPER CLINIC PSC QUADRANT 7210 CERVICAL 07-22-2011 NEW SPONDYLOSIS POY SIPPI WITHOUT CLINIC PSC MYELOPATHY 2250 BENIGN 06-15-2011 NEW NEOPLASM OF POY SIPPI BRAIN CLINIC PSC 70857 SHORTNESS 06-03-2011 [facility] MEDICAL IMAGING ASS 1101 DERMATOPHYT 05-18-2011 [place] OSIS OF [place] NAIL INTERNAL MED 7822 LOCALIZED 05-18-2011 [place] SUPERFICIAL [place] SWELLING INTERNAL MASS OR MED LUMP 7906 OTHER 04-13-2011 [place] ABNORMAL [place] BLOOD INTERNAL CHEMISTRY MED 46251 DYSPHAGIA 02-25-2011 [facility] UNSPECIFIED [facility] INC 7871 HEARTBURN 02-16-2011 C CELESTINO ADAME MD [facility] 77489 ABDOMINAL 02-16-2011 C DEEP YOUNGER EPIGASTRIC PSC 1919 MALIGNANT 02-03-2011 [place] NEOPLASM OF [place] BRAIN INTERNAL UNSPECIFIED MED SITE 84878 DYSPHAGIA 02-03-2011 [place] DUE TO [place] CEREBROVASC INTERNAL ULAR MED DISEASE 1104 DERMATOPHYT 12-14-2010 [place] OSIS OF [place] FOOT INTERNAL MED 9953 ALLERGY 12-12-2010 [place] UNSPECIFIED [place] NOT INTERNAL ELSEWHERE MED CLASSIFIED 7821 RASH AND 12-09-2010 [place] OTHER [place] NONSPECIFIC INTERNAL SKIN MED ERUPTION 7079 CHRONIC 12-07-2010 [place] ULCER OF [place] UNSPECIFIED INTERNAL SITE MEDI 3688 OTHER 09-21-2010 [facility] SPECIFIED MEDICAL VISUAL IMAGING ASS DISTURBANCE S 64667 MUSCLE 09-21-2010 [facility] WEAKNESS [facility] (GENERALIZE INC D) 37254 FACIAL 09-21-2010 [facility] WEAKNESS [facility] INC 08325 NAUSEA WITH 07-27-2010 [facility] VOMITING AMBULANCE SERVICE 40302 OTHER AND 07-25-2010 [place] UNSPECIFIED [place] INTERNAL CONJUNCTIVI MED TIS 5409 ACUTE 05-05-2010 [place] [facility] S WITHOUT HOSPITAL MENTION PROF SERV PERITONITIS 541 APPENDICITI 05-05-2010 [facility] 7804 DIZZINESS 05-05-2010 [facility] V4589 OTHER 05-05-2010 [place] [facility] OTHER PROF SERV 09646 PAINFUL 11-05-2009 [place] RESPIRATION [facility] INTERNAL MED 98025 OTHER SPEC 09-03-2009 [place] [facility] GASTRITIS SERV WITHOUT FOUNDATIO MENTION HEMORRHAGE 96482 DUODENITIS 09-03-2009 [facility] MENTION OF INC HEMORRHAGE 69128 NAUSEA 09-03-2009 [facility] & ALONE CYTOLOGY LAB 11580 UNSPECIFIED 05-07-2009 [facility] TIS PROF SERV 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 UNSPECIFIED MED 04538 OTHER 01-13-2009 [facility] ANXIETY [place] INTERNAL MED 4439 UNSPECIFIED 12-20-2008 [facility] VASCULAR INC DISEASE 08122 ONYCHIA AND 12-16-2008 [facility] PARONYCHIA VALLEY OF TOE INTERNAL MED 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 CHRONIC 11-13-2008 [facility] PAIN VALLEY SYNDROME INTERNAL MED 4659 ACUTE URIS 10-30-2008 [facility] OF VALLEY UNSPECIFIED INTERNAL SITE MED 62473 ABDOMINAL 07-17-2008 [place] PAIN, LEFT CLINIC UPPER LABORATORY QUADRANT 07381 DISORDER OF 06-25-2008 [facility] CARTIL[facility] INC UNSPECIFIED 3674 PRESBYOPIA 04-11-2008 [facility] 7802 SYNCOPE AND 03-29-2008 [facility] 18898 TRANSIENT 03-28-2008 [facility] AMBULANCE OF SERVICE AWARENESS 4011 ESSENTIAL 03-14-2008 [facility]ENSIO [facility] N, BENIGN CLINIC PSC 25957 ANNIE HTN 02-27-2008 [facility] [place] [facility] 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 2409 GOITER, 02-20-2008 [facility] 7931 NONSPEC 02-20-2008 [facility] FIND RAD MEDICAL OTH EXAM IMAGING BODY [...] SE 80 9- 9- 00 SI ve AL 21 20 20 [...] ve LO 37 20 20 48 DE MT 40 17 17 05 AM 1 71 [...] 50 7- 4- 00 00 SI ve AL 10 20 [...] ve LO 37 20 20 47 DE MT 40 17 17 66 AM 1 03 [...] ti 4 ve MG /2 ML AL MT 51 02 0 No OM 07 -2 [...] ti RG 80 1 6 SI 11 AL ve E 48 20 [...] 31 7- 1 SI 55 ON ve AL 04 20 [...] RG 80 3 9 00 SI 32 AL ve E 48 20 20 DE E 10 91 10 11 JR -1 5 PH 60 AR WI MA LL MG CY IA M TA OF F BL ET CY NT HI AN A MT 00 01 03 2 20 5 EA 20 MC Ac OM 78 -1 -[address] 84 KE ti ET 11 9 SI 38 AL ve NG 83 [...] ti AZ 30 7 7 SI 91 AL ve EP 83 [...] 33 KE ti UM 65 SI 04 AL ve 04 20 20 [...] UL CY E NT HI AN A MT 00 01 01 2 20 5 EA [...] AZ 30 9- 8- 00 SI 83 AL ve EP [...] RG 80 3- 4- 00 SI 32 AL ve E 48 [...] OC 10 9 9- 00 SI 00 AL ve HL 34 [...] ti 40 6- 6- 00 SI 49 AL ve TA 68 [...] UM 65 8- 0 00 SI 05 AL ve 04 20 [...] 88 KE ti AZ 30 SI 62 AL ve EP 83 20 [...] RG 80 2- 3- 00 SI 24 AL ve E 48 [...] TH 81 8- 3- 00 SI 58 AL ve YR 80 [...] OC 10 1- 3- 00 SI 17 AL ve HL 34 [...] UM 65 8- 8- 00 SI 05 AL ve 04 [address] 03 10 10 JR 1 PH 40 AR [place] MA LL MG CY IA M CA OF F PS UL CY E NT HI AN A SI 16 08 10 3 30 30 EA 18 Ac MV 71 -0 -[address] 64 KE ti 40 9- 5- 00 SI 89 AL ve TA 68 20 20 DE E TI 40 10 10 JR N 3 PH 40 AR WI MA LL MG CY IA M TA OF F BL ET CY NT HI AN A 00 10 10 0 12 30 EA 19 Ac 59 -1 -[address] 53 KE ti 10 3- 3- 00 SI 11 AL ve 54 20 20 0 DE E 00 10 10 JR 1 PH AR WI MA LL CY IA M OF F CY NT HI AN A CL 00 10 10 0 90 30 EA 19 Ac ON 09 -0 -[address] 46 KE ti AZ 30 8- 8- 00 SI 44 AL ve EP 83 20 [...] ti TH 81 8- 00 SI 58 AL ve YR 80 [...] ti 40 9 4 00 SI 89 AL ve TA 68 [...] AZ 30 8- 8 00 SI 54 AL ve EP 83 [...] ti RG 80 2- 00 SI 24 AL ve E [...] OC 10 7 8 00 SI 77 AL ve HL 34 [...] TH 81 8 8 00 SI 58 AL ve YR 80 [...] KE ti 40 9 9 SI 89 AL ve TA 68 20 [...] RG 80 2 8 00 SI 24 AL ve E 48 [...] ti 10 4- 4 00 SI 41 AL ve 54 20 20 0 DE E 00 10 10 JR 1 PH AR WI MA LL CY IA M OF F CY NT HI AN A LE 00 04 06 3 30 30 EA 17 MC Ac VO 37 -0 -[address] 10 KE ti TH 81 7 SI 12 AL ve YR 80 [...] ti AZ 30 5 5 SI 85 AL ve EP 83 20 [...] 61 KE ti 10 5 SI 05 AL ve 54 20 20 [...] KE ti AZ 30 6 SI 98 AL ve EP 83 20 20 DE E AM 20 10 10 JR 1 PH 0. AR WI 5 MA LL MG CY IA M TA OF F BL ET CY NT HI AN A SI 65 02 04 3 30 30 EA 16 Ac MV 86 -1 -[address] 35 KE ti 20 2 3- SI 46 AL ve TA 05 20 20 DE E TI 33 10 10 JR N 0 PH 40 AR WI MA LL MG CY IA M TA OF F BL ET CY NT HI AN A NE 00 03 04 3 30 30 EA 16 Ac XI 18 -1 -[address] 82 KE ti UM 65 7 3 SI 12 AL ve 04 [address] 03 10 10 JR 1 PH 40 AR WI MA LL MG CY IA M CA OF F PS UL CY E NT HI AN A 00 04 04 0 12 30 EA 17 MC Ac 59 -1 -[address] 20 KE ti 10 5 SI 16 AL ve 54 20 20 [...] KE ti 10 7 7 SI 83 AL ve 54 20 20 [...] KE ti 20 2- 7- SI 46 AL ve TA 05 20 20 DE E TI 33 10 10 JR N 0 PH 40 AR WI MA LL MG CY IA M TA OF F BL ET CY NT HI AN A LE 00 12 03 3 30 30 EA 15 MC Ac VO 37 -0 -[address] 38 KE ti TH 81 2 8 SI 79 AL ve YR 80 20 [...] ti OC 10 4 8 SI 52 AL ve HL 34 20 [...] KE ti AZ 30 5 SI 94 AL ve EP 83 20 20 DE E AM 20 10 10 JR 1 PH 0. AR [place] 5 MA LL MG CY IA M TA OF F BL CY ET NT HI AN A 00 12 30 00 12 30 EA 16 MC Ac 59 -1 -[address] 37 KE ti 10 5 6 SI 95 AL ve 54 20 20 [...] KE ti TH 81 2 SI 79 AL ve YR 80 20 [...] KE ti OC 10 4- SI 52 AL ve HL 34 20 [...] ti 10 4- 8- 00 SI 82 AL ve 54 20 20 [...] TH 81 2- 4 00 SI 79 AL ve YR 80 [...] ti OC 10 4 4 SI 52 AL ve HL 34 [...] KE ti AZ 30 4 SI 09 AL ve EP 83 20 20 DE E AM 20 09 09 JR 1 PH 0. AR WI 5 MA LL MG CY IA M TA OF F BL CY ET NT HI AN A 00 12 12 00 12 30 EA 15 MC Ac 59 -1 -[address] 56 KE ti 10 4- SI 08 AL ve 54 20 20 [...] OC 10 4- 7- 00 SI 77 AL ve HL [...] ti UM 65 1 7 SI 00 AL ve 04 20 20 [...] AZ 30 4- 3- 00 SI 29 AL ve EP [...] TH 81 7- 9- 00 SI 09 AL ve YR 80 [...] ti 20 0- 9- 00 SI 48 AL ve TA [...] UM 65 1- 9- 00 SI 00 AL ve 04 20 [...] AZ 30 4- 7- 00 SI 73 AL ve EP [...] OC 10 4- 7- 00 SI 77 AL ve HL [...] ti AZ 30 5- 1 SI 71 AL ve EP 83 20 20 DE E AM 20 09 09 JR 1 PH 0. AR WI 5 MA LL MG CY IA M TA OF F BL CY ET NT HI AN A HY 00 05 05 00 30 30 EA [address] 59 -1 -[address] 72 KE ti OC 10 2- 1 SI 08 AL ve HL 34 20 [...] -1 -[address] 90 RV ti MT 40 6- 3- 00 SI 94 EY [...] -1 -[address] 90 RV ti MT 40 6- 6- 00 SI 94 EY [...] ti 10 6- 6- 00 SI 90 AL ve 54 20 20 0 DE E 00 09 09 JR 1 PH AR WI MA LL CY IA M OF F CY NT HI AN A ME 49 11 02 03 30 30 EA 10 MC Ac TO 88 -0 -[address] 14 KE ti MT 40 5- 6- 00 SI 65 AL [...] -0 -[address] 14 KE ti MT 40 5- 5- 00 SI 65 AL [...] -0 -[address] 14 KE ti MT 40 5- 8- 00 SI 65 AL [...] -0 -[address] 14 KE ti MT 40 5- 0- 00 SI 65 AL [...] -0 -[address] 58 t ti MT 40 1- 3- 00 SI 13 Av [...] -0 -[address] 58 t ti MT 40 1- 1- 00 SI 13 Av ve OL 40 20 20 DE ai OL 50 08 08 la 1 PH bl GALLAGHER AR e CC MA CY ER OF 50 CY NT MG HI AN TA A B TO 00 07 08 01 30 30 EA 98 No Ac MT 18 -0 -[address] 58 t [...] BL CY ET NT HI AN A MT 37 08 08 00 30 30 EA [...] BL CY ET NT HI AN A MT 37 04 07 03 30 30 EA [...] 00 30 30 EA 98 No Ac MT 18 -0 -[address] 58 t [...] 9- 7- 00 SI 06 Av ve MT 50 20 20 DE ai AM 98 [...] CY BL NT ET HI AN A MT 37 04 06 02 30 30 EA [...] 01 30 30 EA 97 No Ac MT 18 -2 -[address] 75 t [...] BL CY ET NT HI AN A MT 37 04 05 30 30 EA 97 [...] 00 30 30 EA 97 No Ac MT 18 -2 -[address] 75 t [...] 7- 0- 00 SI 65 Av ve MT 34 20 20 DE ai AM 30 08 08 la 1 PH bl HB AR e R MA 20 CY MG OF CY TA NT BL HI ET AN A MT 37 04 04 00 30 30 EA [...] -2 -[address] 38 t ti MT 40 7- 0- 00 SI 67 Av [...] 7- 5- 00 SI 25 Av ve MT 02 20 20 DE ai ED 20 [...] Procedure DOS Code Location Performer Comment CREATININ 44303 [facility] E [facility]LOOD [facility] INC INC COLLECTIO 81620 LIN[facility] SUE N VENOUS 7 [facility] [place] [address] LINETTE SUE UREA 7 [facility] NITROGEN INC INC QUANTITAT RUPA DRUG TEST 88912 LAVINIA KATE PRSMV 7 NORMA TOWNSEND MD,PSC CHEMISTRY ANALYZERS DRUG TEST 39590 [facility] SUE PRSMV 7 [facility] QUAL DIR INC INC OPTICAL OBS PER DAY DRUG 34320 LINETTE LINETTE SCREENING 7 [facility] INC INC BENZODIAZ EPINES 1-12 ECG 94966 [facility] SUE ROUTINE 7 [facility] ECG INC INC W/LEAST 12 LDS TRCG ONLY W/O I&R PRQ 81559 [facility] TRLUML 7 PHYSICIAN CORONARY S GROUP STENT W/ANGIO ONE ART/BRNCH CATH PLMT 16379 [facility] L HRT & 7 PHYSICIAN ARTS S GROUP W/NJX & ANGIO IMG S&I CV STRS 09107 LINETTE SUE TST 7 [facility] XERS&/OR INC INC RX CONT ECG TRCG ONLY TECHNETIU A9502 LINETTE SUE M TC-99M 7 [facility] TETROFOSM INC INC IN DX PER STUDY DOSE MYOCARDIA 90473 LINETTE SUE L SPECT 7 [facility] MULTIPLE INC INC STUDIES ECHO 12391 LINETTE LINETTE TTHRC R-T 7 [facility] 2D INC INC W/WOM-MOD E COMPL SPEC&COLR D ECG 50242 [facility] SUE ROUTINE 7 [facility] ECG INC INC W/LEAST 12 LDS TRCG ONLY W/O I&R DRUG TEST 32363 LAVINIA KATE PRSMV 7 NORMA TOWNSEND MD,PSC CHEMISTRY ANALYZERS COMPREHEN 79576 LAVINIA KATE SIVE 7 BOBO TOWNSEND MD,PSC PANEL BILIRUBIN 62894 LAVINIA KATE DIRECT 7 MD KRISTIAN,[place] [address] LAVINIA KATE PHOSPHORU 7 Myron TOW[place] [address] LAVINIA KATE GLUTAMYLT 7 BEKAH TOWNSEND MD,PSC GAMMA BLOOD 12768 LAVINIA KATE COUNT 7 DUKE TOWNSEND MD,PSC AUTO&AUTO DIFRNTL WBC TECHNETIU A9537 [facility] SUE M TC-99M 7 [facility] MEBROFENI INC INC N DX UP TO 15 MCI HEPATOBIL 73717 [facility] SUE SYST 7 [facility] IMAG INC INC INC GB W/PHARMA INTERVENJ ECG 85610 [facility] SUE ROUTINE 7 [facility] ECG INC INC W/LEAST 12 LDS TRCG ONLY W/O I&R ECG 91830 [facility] SUE ROUTINE 7 [facility] ECG INC INC W/LEAST 12 LDS TRCG ONLY W/O I&R COMPREHEN 95066 [facility] SUE SIVE 7 [facility] METABOLIC INC INC PANEL THER 33986 LINETTE SUE PROPH/DX 7 [facility] NJX IV INC INC PUSH SINGLE/1S T SBST/DRUG FINAL G9551 [facility] LICEA REPR ABD 7 MEDICAL IMAG STS IMAGING W/O ASS INCIDNT FND LES NTD: FINAL G9638 [facility] LICEA REPORTS 7 MEDICAL W/O DOC IMAGING 1/[place] [address] LINETTE SUE AMYLASE 7 [facility] INC INC BLOOD 01235 LINETTE SUE COUNT 7 [facility] COMPLETE INC INC AUTO&[place] [address] LIN[facility] SUE TROPONIN 7 [facility] QUANTITAT INC INC RUPA CREATINE 00712 LINETTE SUE KINASE MB 7 [facility] [place] [address] LINETTE SUE LIPASE 7 [place] [address] LINETTE SUE ABDOMEN & 7 [facility] PELVIS INC INC W/O CONTRAST MATERIAL ECG 36033 LINETTE MCCLAIN ROUTINE 7 [facility] W/LEAST P 12 LDS I&R ONLY CREATINE 09899 LINETTE SUE KINASE 7 [facility] TOTAL INC INC RADIOLOGI 51781 LINETTE SUE C EXAM 7 [facility] CHEST 2 INC INC VIEWS FRONTAL&L ATERAL CT LUMBAR 18354 LEONEL LICEA SPINE 7 MEDICAL W/O IMAGING CONTRAST ASS MATERIAL BLOOD 15651 LINETTE SUE COUNT 7 [facility] COMPLETE INC INC AUTO&[place] [address] LEONEL LICEA ABDOMEN & 7 MEDICAL PELVIS IMAGING W/O ASS CONTRAST MATERIAL FINAL G9638 LEONEL LICEA REPORTS 7 MEDICAL W/O DOC IMAGING 1/MORE ASS DOSE REDUCTION TECH FINAL G9551 LEONEL LICEA REPR ABD 7 MEDICAL IMAG STS IMAGING W/O ASS INCIDNT FND LES NTD: URNLS DIP 08089 [facility] SUE 7 [facility] STICK/TAB INC INC LET REAGENT AUTO MICROSCOP Y COMPREHEN 62810 LINETTE SUE SIVE 7 [facility] METABOLIC INC INC PANEL CHIROPRAC 19968 EMERSON NATHAN TIC 7 MANIPULAT CHIROPRAC RUPA TX TIC CENTE SPINAL 3-4 REGIONS RADEX 70847 EMERSON JORGES SPINE 7 CERVICAL CHIROPRAC 2 OR 3 TIC CENTE VIEWS APPL 81831 EMERSON NATHAN MODALITY 7 1/> AREAS CHIROPRAC ELEC TIC CENTE STIMJ UNATTENDE D RADEX 67594 EMERSON JORGES SPINE 7 LUMBOSACR CHIROPRAC AL 2/3 TIC CENTE VIEWS DRUG TEST 74017 LINETTE SUE PRSMV 7 [facility] QUAL DIR INC INC OPTICAL OBS PER DAY DRUG TEST 65747 LAVINIA KATE PRSMV 7 NORMA TOWNSEND MD,[facility] CHEMISTRY ANALYZERS RADEX 14171 LINETTE VERMAON ABDOMEN 7 [facility] COMPL INC INC W/DCBTS&/ ERC VIEWS RADIOLOGI 79964 LEONEL MILLERUTCHER C EXAM 7 MEDICAL CHEST 2 IMAGING VIEWS ASS FRONTAL&L ATERAL IAADIADOO 99393 LINETTE SUE 7 [facility] INFLUENZA INC INC DRUG TEST G0480 [facility]ETTE SUE DEFINITV [address] [address] [facility] [address] ID INC INC METH P DAY 1-7 DRUG CL DRUG TEST 13993 LINETTE SUE PRSMV 7 [facility] QUAL DIR INC INC OPTICAL OBS PER DAY BASIC 17394 LINETTE SUE METABOLIC 7 [facility] PANEL INC INC CALCIUM TOTAL HEPATIC 84810 LINETTE SUE FUNCTION 7 [facility] PANEL INC INC LIPID 08947 LINETTE SUE PANEL 7 [facility] INC INC COLLECTIO 70729 LINETET SUE N VENOUS 7 [facility] BLOOD INC INC VENIPUNCT URE HEMOGLOBI 11797 LINETTE SUE N 7 [facility] GLYCOSYLA INC INC SONG A1C ECG 48401 LINETTE SUE ROUTINE 7 [facility] ECG INC INC W/LEAST 12 LDS TRCG ONLY W/O I&R DRUG TEST 41853 LINETTE SUE PRSMV 7 [facility] QUAL DIR INC INC OPTICAL OBS PER DAY DRUG TEST G0480 [facility]TE SUE DEFINITV [address] [facility] [address] ID INC INC METH P DAY 1-7 DRUG CL FINAL RPT G[address]/MRI 7 MEDICAL CHEST/NCK IMAGING /U/S NO ASS THR NOD<1.0 CM ECG 95401 LINETTE SUE ROUTINE 7 [facility] W/LEAST P P 12 LDS I&R ONLY CREATINE 98365 LINETTE SUE KINASE 7 [facility] TOTAL INC INC FIBRIN 58146 LINETTE SUE DGRADJ 7 [facility] PRODUCTS INC INC D-DIMER QUAL/[place] [address] LINETTE SUE LIPASE 7 [facility] INC INC NATRIURET 28281 LINETTE SUE IC 7 [facility] PEPTIDE INC INC COLLECTIO 73135 LINETTE SUE N VENOUS 7 [facility] BLOOD INC INC VENIPUNCT URE FINAL G9638 LEONEL DELAROSA REPORTS 7 MEDICAL W/O DOC IMAGING 1/MORE ASS DOSE REDUCTION TECH FINAL G9551 LEONEL DELAROSA REPR ABD 7 MEDICAL IMAG STS IMAGING W/O ASS INCIDNT F[place]: [place] [address] LINETTE SUE AMYLASE 7 [facility] INC INC CREATINE 90652 LINETTE SUE KINASE MB 7 [facility] [place] [address] LINETTE SUE TROPONIN 7 [facility] QUANTITAT INC INC RUPA BLOOD 85674 LINETTE SUE COUNT 7 [facility] COMPLETE INC INC AUTO&AUTO DIFRNTL WBC COMPREHEN 05592 LINETTE SUE SIVE 7 [facility] METABOLIC INC INC PANEL ECG 55864 LINETTE SUE ROUTINE 7 [facility] ECG INC INC W/LEAST 12 LDS TRCG ONLY W/O I&R URNLS DIP 72204 LINETTE LINETTE 7 [facility] STICK/TAB INC INC LET REAGENT AUTO MICROSCOP Y CT THORAX 70690 LEONEL DELAROSA 7 MEDICAL W/[place] [address] LINETTE SUE ANGIOGRAP 7 [facility] HY INC INC ABDOMEN W/CONTRAS T/[place] [address] LEONEL DELAROSA ABDOMEN 7 MEDICAL W/O IMAGING CONTRAST ASS MATERIAL RADIOLOGI 67725 HAWAII ZULLY Tyson EXAM 7 MEDICAL CHEST 2 IMAGING VIEWS ASS FRONTAL&[place] [address] LINETTE SUE ANGIOGRAP 7 [facility] HY CHEST INC INC W/CONTRAS [place] [address] LINETTE SUE THYROID 6 [facility] STIMULATI INC INC NG HORMONE TSH HEPATITIS 14794 LINETTE SUE A 6 [facility] ANTIBODY INC INC HAAB HEPATITIS 41427 LINETTE SUE C 6 [facility] ANTIBODY INC INC DRUG TST G0477 LINETTE SUE PRESUMP;C 6 [facility] PBL BEING [place] [address] LINETTE SUE THYROXINE 6 [facility] TOTAL INC INC COMPREHEN 43622 LINETTE SUE SIVE 6 [facility] METABOLIC INC INC PANEL BLOOD 45010 LINETTE SUE COUNT 6 [facility] COMPLETE INC INC AUTO&AUTO DIFRNTL WBC COLLECTIO 50015 LINETTE SUE N VENOUS 6 [facility] [place] [address] LINETTE SUE AMYLASE 6 [facility] INC INC HEMOGLOBI 63255 LINETTE SUE N 6 [facility] GLYCOS[place] [address] LINETTE SUE LIPASE 6 [facility] INC INC HEPATITIS 95984 LINETTE SUE B SURF 6 [facility] [address] LIN[facility]TE SUE HEPATITIS 6 [facility] B INC INC SURFACE ANTIGEN HEPATITIS 26294 LINETTE SUE B CORE 6 [facility] ANTIBODY INC INC HBCAB TOTAL DRUG TST G0477 LINETTE SUE PRESUMP;C 6 [facility] PBL BEING INC INC READ DC OPT OBV ONLY DRUG TEST G0479 LAVINIA TOWNSEND 6 KRISTIAN, PRESUMP;I ,[facility] NSTRUMENT ED CHEMISTRY ANLYZER NATRIURET 49994 LINETTE SUE IC 6 [facility] [place] [address] LINETTE SUE AMYLASE 6 [facility] INC INC COLLECTIO 01781 LINETTE SUE N VENOUS 6 [facility] BLOOD INC INC VENIPUNCT URE BLOOD 35582 LINETTE SUE COUNT 6 [facility] COMPLETE INC INC AUTO&[place] [address] LINETTE SUE TROPONIN 6 [facility] QUANTITAT INC INC RUPA CREATINE 33259 LINETTE SUE KINASE MB 6 [facility] [place] [address] LINETTE SUE LIPASE 6 [facility] INC INC FIBRIN 51845 LINETTE SUE DGRADJ 6 [facility] PRODUCTS INC INC D-DIMER QUAL/SEMI TODD CREATINE 81199 LINETTE LINETTE KINASE 6 [facility] TOTAL INC INC ECG 12400 LINETTE MCCLAIN ROUTINE 6 [facility] W/LEAST P 12 LDS I&R ONLY CT THORAX 85825 HAWAII ZULLY 6 MEDICAL BUBBA W/CONTRAS IMAGING T ASS MATERIAL RADIOLOGI 08393 LINETTE LINETTE C 6 [facility] EXAMINATI INC INC ON CHEST [place] FRONTAL COMPREHEN 44380 LINETTE SUE SIVE 6 [facility] METABOLIC INC INC PANEL ECG 98807 LINETTE LINETTE ROUTINE 6 [facility] ECG INC INC W/LEAST 12 LDS TRCG ONLY W/O I&[place] [address] LINETTE SUE ANGIOGRAP 6 [facility] HY CHEST INC INC W/CONTRAS T/NONCONT RAST DRUG TST G0477 LINETTE SUE PRESUMP;C 6 [facility] PBL BEING [place] [address] LINETTE SUE HEAD/BRAI 6 [facility] N W/O INC INC CONTRAST MATERIAL THERAPEUT 09406 LINETTE SUE IC 6 [facility] PROPHYLAC INC INC TIC/DX INJECTION SUBQ/[place] [address] LINETTE SUE CERVICAL 6 [facility] SPINE W/O INC INC CONTRAST MATERIAL RADEX 95310 LINETTE SUE SHOULDER 6 [facility] COMPLETE INC INC MINIMUM 2 [place] [address] [facility], [facility] PATHOLOGY GROSS&CHARLEY ROSCOPIC EXAM ANES 05424 [facility] LOWER 6 ANESTH INTESTINE OF THE BLUE ENDOSCOPY DISTAL DUODENUM COLSC FLX 88707 LINETTE SUE W/RMVL 6 [facility] OF TUMOR INC INC POLYP LESION SNARE TQ GLUC BLD 91893 LINETTE SUE GLUC MNTR 6 [facility] DEV INC INC CLEARED FDA SPEC HOME USE DRUG TST G0477 LINETTE SUE PRESUMP;C 6 [facility] PBL BEING INC INC READ DC OPT OBV ONLY COL-CHR/M 55900 LINETTE SUE S NONDRUG 6 [facility] ANALYTE INC INC CARLINE QUAL/TODD EA SPEC DRUG 84033 LINETTE SUE SCREENING 6 [facility] INC INC BENZODIAZ EPINES 1-12 DRUG 27134 LINETTE SUE SCREEN 6 [facility] LIST A INC INC SINGLE DRUG CLASS METHOD COMPREHEN 43857 LINETTE SUE SIVE 6 [facility] METABOLIC INC INC PANEL LIPID 87210 LINETTE SUE PANEL 6 [place] [address] LINETTE SUE THYROXINE 6 [facility] TOTAL INC INC HEMOGLOBI 26621 LINETTE SUE N 6 [facility] GLYCOSYLA INC INC SONG A1C COLLECTIO 35308 LINETTE SUE N VENOUS 6 [facility] BLOOD INC INC VENIPUNCT URE BLOOD 31721 LINETTE SUE COUNT 6 [facility] COMPLETE INC INC AUTO&AUTO DIFRNTL WBC PROSTATE G0103 LINETTE SUE CANCER 6 [facility] SCREENING INC INC ; [place] [address] LINETTE SUE THYROID 6 [facility] STIMULATI INC INC NG HORMONE TSH THERAPEUT 61084 [facility] IC 6 PHYSICIAN CHARLEY PROPHYLAC S GROUP TIC/DX INJECTION SUBQ/IM INJECTION J1100 [facility] 6 PHYSICIAN CHARLEY DEXAMETHO S GROUP SONE SODIUM PHOSPHATE 1 MG INJECTION J1885 [facility] 6 PHYSICIAN CHARLEY KETOROLAC S GROUP TROMETHAM INE PER 15 MG THERAPEUT 53691 [facility] IC 6 PHYSICIAN CHRALEY PROPHYLAC S GROUP TIC/DX INJECTION SUBQ/IM INJECTION J1100 [facility] 6 PHYSICIAN CHARLEY DEXAMETHO S GROUP SONE SODIUM PHOSPHATE 1 MG THERAPEUT 31097 [facility] IC 6 PHYSICIAN EUG PROPHYLAC S GROUP TIC/DX INJECTION SUBQ/IM INJECTION J0696 [facility] 6 PHYSICIAN EUG CEFTRIAXO S GROUP NE SODIUM PER 250 MG INJECTION 81711 BOYD LE LB 6 MD JERMAINE, SINGLE/ML PSC T TRIGGER POINT 1/2 MUSCLES DRUG TEST G0481 LINETTE SUE DEFINITV [address] [facility] [address] ID INC INC METH P DAY 8-14 DRUG CL DRUG TST G0477 LINETTE SUE PRESUMP;C 6 [facility] PBL BEING INC INC READ DC OPT OBV ONLY MRI BRAIN 01801 LINETTE SUE BRAIN 6 [facility] STEM W/O INC INC W/CONTRAS T MATERIAL INJECTION A9576 LINETTE SUE 6 [facility] GADOTERID INC INC OL PROHANCE MULTIPACK PER ML COLLECTIO 13858 LINETTE SUE N VENOUS 6 [facility] BLOOD INC INC VENIPUNCT URE CREATININ 64264 LINETTE SUE E BLOOD 6 [facility] [place] [address] LINETTE SUE UREA 6 [facility] NITROGEN INC INC QUANTITAT RUPA MRI BRAIN 99981 LINETTE SUE BRAIN 6 [facility] STEM W/O INC INC CONTRAST MATERIAL DUPLEX 72997 LINETTE SUE SCAN 6 [facility] EXTRACRAN INC INC IAL ART COMPL BI [facility] G0463 LINETTE SUE OUTPATIEN 6 [facility] T CLIN INC INC VISIT ASSESS & [place] [address] LINETTE BECKETT CO HEAD/BRAI 6 [facility] HEALTH N W/O INC DEPARTMEN CONTRAST T MATERIAL THER 44238 LINETTE SUE PROPH/DX 6 [facility] NJX IV INC INC PUSH SINGLE/1S T SBST/DRUG BASIC 24525 LINETTE SUE METABOLIC 6 [facility] PANEL INC INC CALCIUM TOTAL THERAPEUT 04906 LINETTE SUE IC 6 [facility] INJECTION INC INC IV PUSH EACH NEW DRUG INJECTION J2405 LINETTE SUE 6 [facility] ONDANSETR INC INC ON HCL PER 1 MG BLOOD 73345 LINETTE SUE COUNT 6 [facility] COMPLETE INC INC AUTO&AUTO DIFRNTL WBC INJECTION J1030 LINETTE SUE 6 [facility] METHYLPRE INC INC DNISOLONE ACETATE 40 MG FLUOR 05121 BOYDAISHWARYA LE LB NEEDLE/CA 6 MD JERMAINE, TH PSC SPINE/PAR ASPINAL DX/[place] NJX 26482 BOYDAISHWARYA LE LB DX/THER 6 MD JERMAINE, SBST PSC EPIDURAL/ SUBRACH CERV/THOR ACIC LOCM Q9966 LINETTE SUE 200-299 6 [facility] MG/ML INC INC IODINE CONCENTRA TION PER ML HEPATOBIL 42506 LINETTE SUE SYST 6 [facility] IMAG INC INC INC GB W/PHARMA INTERVENJ TECHNETIU A9537 LINETTE Barrientos TC-99M 6 [facility] MEBROFENI INC INC N DX UP TO 15 MCI INJECTION J2805 LINETTE SUE 6 [facility] SINCALIDE INC INC 5 [place] [address] HAWAII DELAROSA ALL ABDOMINAL 5 MEDICAL REAL IMAGING TIME ASS W/IMAGE LIMITED GLUC BLD 93550 LINETTE SUE GLUC MNTR 5 [facility] DEV INC INC CLEARED FDA SPEC HOME USE CUL BACT 59430 LINETTE SUE XCPT 5 [facility] URINE INC INC BLOOD/[place] [address] [facility] STREPTOCO 5 [facility] [place] [address] [facility] RETROPERI 5 [facility] TONEAL INC [place] TIME W/[place] [address] [place] ZULLY RETROPERI 5 MEDICAL BUBBA TONEAL IMAGING REAL TIME ASS W/IMAGE LIMITED APPLICATI 90348 [facility] ON 5 [facility] MODALITY INC INC 1/> AREAS HOT/COLD PACKS APPL 85102 [facility] MODALITY 5 [facility] 1/> AREAS INC INC ULTRASOUN D EA 15 MIN APPL 04933 [facility] MODALITY 5 [facility] 1/> AREAS INC INC 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 L E-STIM [id number] [facility] SUE 1/> AREAS 5 [facility] OTH THAN INC INC WND CARE PART TX PLAN OPHTH 71513 [facility] 5 XM&EVAL COMPRHNSV ESTAB PT 1/> PHYSICAL 99149 [facility] THERAPY 5 [facility] EVALUATIO INC INC N INJECTION J1030 [facility] SUE 5 [facility] METHYLPRE INC INC DNISOLONE ACETATE 40 MG INJECTION 95641 [facility] SUE 5 [facility] SINGLE/ML INC INC T TRIGGER POINT 3/> MUSCLES INJECTION 56047 BOYD ASHER 5 MD JERMAINE, SINGLE/ML PSC T TRIGGER POINT 1/2 MUSCLES PSYCHIATR 11996 COMPREHEN MINEER IC 5 D INC EDELMIRA DIAGNOSTI C EVALUATIO N INJECTION 80504 FREDY Fabian MD SINGLE/ML T TRIGGER POINT 1/2 MUSCLES INJECTION 95279 [facility] SUE 5 [facility] SINGLE/ML INC INC T TRIGGER POINT 3/> MUSCLES INJECTION J1030 [facility] VERMAON 5 [facility] METHYLPRE INC INC DNISOL[place] [address] [place] [address] [facility] HEAD/BRAI 5 MEDICAL DAREN N W/O IMAGING CONTRAST ASS MATERIAL RADEX 40389 [facility] BEINE SPINE 5 MEDICAL DAREN THORACIC IMAGING [address] [place] [address] [facility] CERVICAL 5 MEDICAL DAREN SPINE W/O IMAGING CONTRAST ASS MATERIAL ROGELIO 88230 LINET[facility] LEIVA POST-VOID 5 [facility] RESIDUAL P URINE&/BL [facility] G0463 [facility] OUTPATIEN 5 [facility] T CLIN INC INC VISIT ASSESS & MGMT PT ECG 31106 [facility] ROUTINE 5 [facility] ECG INC INC W/LEAST 12 LDS TRCG ONLY W/O I&R ECG 28430 CARDIOVAS CHAYO ROUTINE 5 CULAR MAT ECG CONSULTAN W/LEAST TS O 12 LDS I&R ONLY ECHO 59865 [facility] SUE TTHRC R-T 5 [facility] 2D INC INC W/WOM-MOD E COMPL SPEC&COLR D CV STRS 84093 [facility] FALLUJI TST 5 PHYSICIAN VENITA XERS&/OR S GROUP RX CONT ECG W/O I&R CV STRS 95979 [facility] TST 5 [facility] XERS&/OR INC INC RX CONT ECG TRCG ONLY TECHNETIU A9500 LINETTE Barrientos TC-99M 5 [facility] SESTAMIBI INC INC DX PER STUDY DOSE MYOCARDIA 56338 [facility]UE L SPECT 5 [facility] MULTIPLE INC INC STUDIES ECG 52971 [facility] ROUTINE 5 [facility] ECG INC INC W/LEAST 12 LDS TRCG ONLY W/O I&R ECG 77601 CARDIOVAS CHAYO ROUTINE 5 CULAR MAT ECG CONSULTAN W/LEAST TS O 12 LDS I&R ONLY BASIC 52747 [facility] METABOLIC 5 [facility] PANEL INC INC CALCIUM TOTAL LIPID 54783 [facility] SUE PANEL 5 [place] [address] [facility] SUE THYROXINE 5 [facility] [place] [address] [facility] THYROID 5 [facility] STIMULATI INC INC NG HORMONE TSH BLOOD 26264 [facility] COUNT 5 [facility] COMPLETE INC INC AUTO&[place] [address] LEONEL LICEA HEAD/BRAI 5 MEDICAL DAREN N W/O IMAGING CONTRAST ASS MATERIAL RADIOLOGI 02256 LEONEL LICEA C 5 MEDICAL DAREN EXAMINATI IMAGING ON CHEST ASS SINGLE VIEW FRONTAL AMB A0427 [facility] SERVICE 5 AMBULANCE AMBULANCE ALS SERVICE SERVICE EMERGENCY TRANSPORT LEVEL 1 CRITICAL 46762 [facility] [address] CARE [address] [facility] ED P P PATIENT INIT 30-74 MIN COMPREHEN 47800 [facility] SIVE 5 [facility] METABOLIC INC INC PANEL ECG 64038 LINETTE [facility]INE 5 [facility] ECG INC INC W/LEAST 12 LDS TRCG ONLY W/O I&R ECG 68836 LINETTE SUE ROUTINE 5 [facility] W/LEAST P P 12 LDS I&R ONLY CREATINE 17033 LINETTE SUE KINASE 5 [facility] TOTAL INC INC CREATINE 45225 LINETTE SUE KINASE MB 5 [facility] [place] [address] LINETTE SUE TROPONIN 5 [facility] QUANTITAT INC INC RUPA GROUND A0425 [facility] PER SERVICE SERVICE STATUTE MILE LOCM Q9967 LINETTE SUE [phone] [facility] MG/ML INC INC [place] [address] HAWAII ZULLY ANGIOGRAP 4 MEDICAL BUBBA HY IMAGING ABDOMEN ASS W/CONTRAS [place] [address] LINETTE SUE UREA 4 [facility] NITROGEN INC INC QUANTITAT RUPA COLLECTIO 72453 LINETTE SUE N VENOUS 4 [facility] BLOOD INC INC VENIPUNCT URE CREATININ 70553 LINETTE SUE E BLOOD 4 [place] [address] LINETTE SUE HEAD/BRAI 4 [facility] N W/O INC INC CONTRAST MATERIAL THERAPEUT 28281 [facility] IC 4 PHYSICIAN CHARLEY PROPHYLAC S GROUP TIC/DX INJECTION SUBQ/IM INJECTION J0696 [facility] 4 PHYSICIAN CHARLEY CEFTRIAXO S GROUP NE SODIUM PER 250 MG INJECTION J1040 [facility] 4 PHYSICIAN PHYSICIAN METHYLPRE S GROUP S GROUP DNISOLONE ACETATE 80 MG RADIOLOGI 60855 HAWAII ZULLY C 4 MEDICAL BUBBA EXAMINATI IMAGING ON CHEST ASS SINGLE VIEW FRONTAL DIAB ONLY A5500 [facility] FIT CSTM 4 PREP&SPL SHOE MX DNSITY INSRT FOR DIAB A5512 [facility] ONLY MX 4 DNSITY INSRT DIR FORMD PRFAB EA THERAPEUT 78199 LINETTE SUE IC 4 [facility] PROPHYLAC INC INC TIC/DX INJECTION SUBQ/IM CT LUMBAR 43327 ZULLY ZULLY SPINE 4 BUBBA BUBBA W/O CONTRAST MATERIAL THER 69933 LINETTE SUE PROPH/DX 4 [facility] NJX IV INC INC PUSH SINGLE/1S T SBST/[place] [address] ZULLY ZULLY ABDOMEN & 4 BUBBA BUBBA PELVIS W/O CONTRST 1/> BODY RE THROMBOPL 16126 LINETTE SUE ASTIN 4 [facility] TIME INC INC PARTIAL PLASMA/WH OLE BLOOD THER 26191 LINETTE SUE PROPH/DX 4 [facility] NJX IV INC INC PUSH SINGLE/1S T SBST/DRUG ECG 44270 LINETTE SUE ROUTINE 4 [facility] ECG INC INC W/LEAST 12 LDS TRCG ONLY W/O I&R COMPREHEN 27315 LINETTE SUE SIVE 4 [facility] [place] [address] LINETTE SUE TROPONIN 4 [facility] QUANTITAT INC INC RUPA CREATINE 88818 LINETTE SUE KINASE MB 4 [facility] FRACTION INC INC ONLY ECG 48828 WARE WARE ROUTINE 4 BRO BRO ECG W/LEAST 12 LDS I&R ONLY CREATINE 83003 LINETTE SUE KINASE 4 [facility] TOTAL INC INC PROTHROMB 90947 LINETTE SUE IN TIME 4 [facility] INC INC FIBRIN 27771 LINETTE SUE DGRADJ 4 [facility] PRODUCTS INC INC D-DIMER QUAL/[place] [address] LINETTE SUE ABDOMEN & 4 [facility] PELVIS INC INC W/O CONTRAST MATERIAL RADIOLOGI 74222 LINETTE SUE C EXAM 4 [facility] CHEST 2 INC INC VIEWS FRONTAL&L ATERAL BLOOD 93535 LINETTE SUE COUNT 4 [facility] COMPLETE INC INC AUTO&AUTO DIFRNTL WBC DRUG SCR G0434 VITA HAM VITA HAM NOT 4 CHROMATOG RAPHIC; ANY NUMBER PT ENC COMPREHEN 33252 LINETTE SUE SIVE 3 [facility] METABOLIC INC INC PANEL BLOOD 00449 LINETTE SUE COUNT 3 [facility] COMPLETE INC INC AUTO&[place] [address] LINETTE SUE THYROID 3 [facility] STIMULATI INC INC NG HORMONE TSH IIV3 69601 MCKEMIE MCKEMIE VACCINE 3 JR AREN RAI AREN SPLIT VIRUS 0.5 ML DOSAGE IM USE IM ADM 51959 MCKEMIE MCKEMIE PRQ ID 3 JR AREN JR AREN SUBQ/IM NJXS 1 VACCINE IM ADM 52457 MCKEMIE MCKEMIE PRQ ID 3 JR AREN JR AREN SUBQ/IM NJXS EA VACCINE INJECTION J3301 MCKEMIE MCKEMIE 3 JR AREN RAI AREN TRIAMCINO LONE ACETONIDE NOS 10 MG ADMINISTR G0008 MCKEMIE MCKEMIE ATION OF 3 JR AREN RAI AREN INFLUENZA VIRUS VACCINE THERAPEUT 99567 LINETTE SUE IC 3 [facility] PROPHYLAC INC INC TIC/DX INJECTION SUBQ/IM COMPREHEN 26460 LINETTE SUE SIVE 3 [facility] METABOLIC INC INC PANEL LIPID 09794 LINETTE SUE PANEL 3 [place] [address] LINETTE SUE THYROID 3 [facility] STIMULATI [place] [address] LINETTE SUE UREA 3 [facility] NITROGEN INC INC QUANTITAT [place] MRI 55421 LINETTE SUE SPINAL 3 [facility] CANAL INC INC CERVICAL W/O CONTRAST MATRL MRI BRAIN 02566 LINETTE SUE BRAIN 3 [facility] STEM W/O INC INC W/CONTRAS T MATERIAL 3D 60660 LINETTE SUE RENDERING 3 [facility] W/INTERP INC INC & POSTPROCE SS SUPERVISI ON CREATININ 52002 LINETTE SUE E BLOOD 3 [facility] INC INC INJECTION A9576 LINETTE LINETTE 3 [facility] GADOTERID INC INC OL PROHANCE MULTIPACK PER ML APPL 18671 LINETTE SUE MODALITY 3 [facility] 1/> AREAS INC INC ELEC STIMJ UNATTENDE D APPLICATI 99266 LINETTE SUE ON 3 [facility] MODALITY INC INC 1/> AREAS HOT/COLD PACKS APPL 98913 LINETTE SUE MODALITY 3 [facility] 1/> AREAS INC INC 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 L APPL 46286 LINETTE SUE MODALITY 3 [facility] 1/> AREAS INC INC 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 L APPL 34683 LINETTE SUE MODALITY 3 [facility] 1/> AREAS INC INC ELEC STIMJ UNATTENDE D APPL 37339 LINETTE SUE MODALITY 3 [facility] 1/> AREAS INC INC ULTRASOUN D EA 15 MIN APPLICATI 04086 LINETTE SUE ON 3 [facility] MODALITY INC INC 1/> AREAS HOT/COLD PACKS PHYSICAL 73895 LINETTE SUE THERAPY 3 [facility] EVALUATIO INC INC N THERAPEUT 48105 LINETTE SUE IC 3 [facility] PROPHYLAC INC INC TIC/DX INJECTION SUBQ/IM INJECTION J3301 LINETTE LINETTE 3 [facility] TRIAMCINO INC INC LONE ACETONIDE NOS 10 MG CUL BACT 04395 LINETTE SUE STOOL 3 [facility] AEROBIC INC INC ISOL SALMONELL A&SHIGELL BLOOD 12098 LINETTE SUE OCCULT 3 [facility] PEROXIDAS INC INC E ACTV QUAL FECES 1-3 [place] [address] LINETTE SUE CLOSTRIDI 3 [facility] UM INC INC DIFFICILE TOXIN OVA&DERRICK 05813 LINETTE SUE ITES 3 [facility] DIRECT INC INC SMEARS CONCENTRA TION & ID SMR PRIM 15552 LINETTE SUE SRC 3 [facility] GRAM/GIEM INC INC SA STAIN BCT FUNGI/ELBA L RADEX 06280 ZULLY ZULLY SHOULDER 3 BUBBA BUBBA COMPLETE MINIMUM 2 VIEWS RADIOLOGI 59196 ZULLY ZULLY C EXAM 3 BUBBA BUBBA CHEST 2 VIEWS FRONTAL&[place] [address] LINETTE SUE TROPONIN 3 [facility] QUANTITAT INC INC RUPA CREATINE 67520 LINETTE SUE KINASE MB 3 [facility] FRACTION INC INC ONLY ECG 47744 RAMONASON BESSON ROUTINE 3 [facility] CAM[facility]A ECG W/LEAST 12 LDS I&R ONLY CREATINE 86366 LINETTE SUE KINASE 3 [facility] TOTAL INC INC ECG 50839 LINETTE SUE ROUTINE 3 [facility] ECG INC INC W/LEAST 12 LDS TRCG ONLY W/O I&R URNLS DIP 23623 MCKEMIE MCKEMIE 3 JR AREN JR AREN STICK/TAB LET RGNT NON-AUTO W/O MICRSCP ECG 70847 LINETTE SUE ROUTINE 3 [facility] ECG INC INC W/LEAST 12 LDS TRCG ONLY W/O I&R COMPREHEN 27303 LINETTE SUE SIVE 3 [facility] METABOLIC INC INC PANEL URNLS DIP 54885 LINETTE SUE 3 [facility] STICK/TAB INC INC LET REAGENT AUTO MICROSCOP Y CREATINE 58628 LINETTE SUE KINASE 3 [facility] TOTAL INC INC ECG 06597 CHAGO CHAGO ROUTINE 3 [facility]LEY CHARLEY ECG W/LEAST 12 LDS I&[place] [address] LINETTE SUE INFUSION 3 [facility] THERAPY/P INC INC ROPHYLAXI S /DX 1ST TO 1 HR THERAPEUT 74355 LINETTE SUE IC 3 [facility] INJECTION INC INC IV PUSH EACH NEW DRUG INJECTION J2405 LINETTE SUE 3 [facility] ONDANSETR INC [place] [address] [place] [address] ZULLY ZULLY ABDOMEN & 3 BUBBA BUBBA PELVIS W/[place] [address] LINETTE SUE LIPASE 3 [facility] INC INC CREATINE 04074 LINETTE SUE KINASE MB 3 [facility] [place] [address] LINETTE SUE TROPONIN 3 [facility] QUANTITAT INC INC RUPA 3D 79955 LINETTE SUE RENDERING 3 [facility] INC INC W/INTERP& [place] [address] LINETTE SUE AMYLASE 3 [facility] INC INC BLOOD 50858 LINETTE SUE COUNT 3 [facility] COMPLETE INC INC AUTO&AUTO DIFRNTL WBC BLOOD 39116 LINETTE SUE COUNT 3 [facility] COMPLETE INC INC AUTO&AUTO DIFRNTL WBC PROSTATE G0103 LINETTE SUE CANCER 3 [facility] SCREENING INC INC ; PSA TEST LIPID 28691 LINETTE SUE PANEL 3 [facility] INC INC COMPREHEN 50563 LINETTE SUE SIVE 3 [facility] METABOLIC INC INC PANEL ECG 01490 LINETTE MCKEMIE ROUTINE 3 [facility] W/LEAST P 12 LDS I&R ONLY CREATINE 81340 LINETTE SUE KINASE 3 [facility] TOTAL INC INC ECG 93298 CHAGO ANDERS ROUTINE 3 CHARLEY CHARLEY ECG W/LEAST 12 LDS I&[place] [address] LINETTE SUE LIPASE 3 [place] [address] LINETTE SUE ABDOMEN & 3 [facility] PELVIS INC INC W/O CONTRAST MATERIAL IAADI 97616 LINETTE SUE INFLUENZA 3 [facility] B VIRUS INC INC IAADI 10736 LINETTE SUE INFFLUENZ 3 [facility] [place] [address] LINETTE SUE AMYLASE 3 [facility] INC INC BLOOD 37518 LINETTE SUE OCCULT 3 [facility] PEROXIDAS INC INC E ACTV QUAL FECES 1-3 SPEC 3D 05589 LINETTE SUE RENDERING 3 [facility] INC INC W/INTERP& POSTPROC DIFF WORK STATION CREATINE 28605 LINETTE SUE KINASE MB 3 [facility] [place] [address] LINETTE SUE TROPONIN 3 [facility] QUANTITAT INC INC RUPA COMPREHEN 20009 LINETTE SUE SIVE 3 [facility] METABOLIC INC INC PANEL ECG 64413 LINETTE SUE ROUTINE 3 [facility] ECG INC INC W/LEAST 12 LDS TRCG ONLY W/O I&R URNLS DIP 88144 LINETTE SUE 3 [facility] STICK/TAB INC INC LET REAGENT AUTO MICROSCOP Y RADIOLOGI 91331 LINETTE SUE C 3 [facility] EXAMINATI INC INC ON CHEST SING[place] FRONTAL BLOOD 40554 LINETTE SUE COUNT 3 [facility] COMPLETE INC INC AUTO&AUTO DIFRNTL WBC ANES 36248 [facility] TRANSURET 2 ANESTH LOLY HRAL OF THE W/URETHRO BLUE CYSTOSCOP Y NOS UROGRAPHY 95736 LEONEL ANDREA IV W/WO 2 MEDICAL BUBBA KUB W/WO IMAGING TOMOGRAPH ASS Y CYSTO 04008 LINETTE SUE BLADDER 2 [facility] W/URETERA INC INC L CATHETERI ZATION URETHROCY 69625 LINETTE SUE STOGRAPHY 2 [facility] INC INC RETROGRAD E RS&I CYSTOURET 69263 LEIVA LEIVA HROSCOPY 2 ART ART CREATININ 19105 LINETTE SUE E BLOOD 2 [place] [address] LINETTE SUE UREA 2 [facility] NITROGEN INC INC QUANTITAT RUPA URNLS DIP 02034 LEIVA LEIVA 2 ART ART STICK/TAB LET RGNT NON-AUTO W/[place] [address] LINETTE SUE ABDOMEN & 2 [facility] PELVIS INC INC W/O CONTRST 1/> BODY RE LOCM Q9967 LINETTE SUE [phone] 2 [facility] MG/ML INC INC IODINE CONCENTRA TION PER ML PROSTATE G0103 LINETTE SUE CANCER 2 [facility] SCREENING INC INC ; PSA TEST BASIC 25562 LINETTE SUE METABOLIC 2 [facility] [place] [address] LINETTE SUE TESTOSTER 2 [facility] ONE TOTAL INC INC URNLS DIP 55692 LEIVA LEIVA 2 ART ART STICK/TAB LET RG[place] [address] ZULLY ZULLY RETROPERI 2 BUBBA BUBBA TONEAL REAL TIME W/IMAGE COMPLETE URNLS DIP 34351 JAMA YUN 2 NAN NAN STICK/TAB LET RGNT NON-AUTO W/O MICRSCP COMPREHEN 08911 LINETTEKING SUE SIVE 2 [facility] METABOLIC INC INC PANEL LIPID 14633 LINETTE LIENTTE PANEL 2 [facility] INC INC HEMOGLOBI 56229 LINETTE SUE N 2 [facility] GLYCOSYLA INC INC SONG A1C URNLS DIP 80637 JAMA JAMA 2 NAN NAN STICK/TAB LET RGNT NON-AUTO W/O MICRSCP OPHTHALMO 79715 NICK ROMERO SCPY 2 [place] JAM EXTENDED RETINAL DRAWING I&R 1ST DETERMINA 84910 NICK ROMERO TION 2 JAM JAM REFRACTIV E STATE MYOCARDIA 49051 LAUREN FAMUANISH L SPECT 2 [facility] MULTIPLE STUDIES MYOCARDIA 33266 LINETTE SUE L SPECT 2 [facility] MULTIPLE INC INC STUDIES TECHNETIU A9502 LINETTE SUE M TC-99M 2 [facility] TETROFOSM INC INC IN DX PER STUDY DOSE CV STRS 89904 LINETTE SUE TST 2 [facility]/OR [facility] RX CONT P P ECG I&R ONLY CV STRS 66764 SELMA HAHN [facility] TST 2 XERS&/OR RX CONT ECG W/O I&R CV STRS 09528 LINETTE SUE TST 2 [facility] XERS&/OR INC INC RX CONT ECG TRCG ONLY OBSERVATI 92793 JOHNY MCCLAIN ON CARE 2 [facility] DISCHARGE [facility] G0378 LINETTE SUE OBSERVATI 2 [facility] [place] [address] LINETTE SUE TROPONIN 2 [facility] QUANTITAT INC INC RUPA CREATINE 51661 LINETTE SUE KINASE MB 2 [facility] FRACTION INC INC ONLY CREATINE 64678 LINETTE SUE KINASE 2 [facility] TOTAL INC INC CREATINE 75687 LINETTE SUE KINASE 2 [facility] TOTAL INC INC ECG 32148 [facility] ROUTINE 2 III AREN III AREN ECG W/LEAST 12 LDS I&R ONLY RHYTHM 23569 LINETTE SUE ECG 1-3 2 [facility] LEADS INC INC TRACING ONLY W/O I&R PRESSURIZ 63582 LINETTE SUE ED/NONPRE 2 [facility] SSURIZED INC INC INHALATIO N TREATMENT INITIAL 14011 NATHALY CRMIHira OBSERVATI 2 JR AREN JR AREN ON CARE/DAY [address] [place] [address] LINETTE SUE LIPASE 2 [facility] INC INC 3D 51534 LINETTE SUE RENDERING 2 [facility] W/INTERP INC INC & POSTPROCE SS SUPERVISI ON CREATINE 39647 LINETTE SUE KINASE MB 2 [facility] [place] [address] LINETTE SUE TROPONIN 2 [facility] QUANTITAT INC INC [facility] G0378 LINETTE SUE OBSERVATI 2 [facility] ON INC INC SERVICE PER HOUR ECG 08150 LINETTE SUE ROUTINE 2 [facility] ECG INC INC W/LEAST 12 LDS TRCG ONLY W/O I&R COMPREHEN 32118 LINETTE SUE SIVE 2 [facility] METABOLIC INC INC PANEL BASIC 59378 LINETTE SUE METABOLIC 2 [facility] PANEL INC INC CALCIUM TOTAL RADIOLOGI 25355 LINETTE SUE C 2 [facility] EXAMINATI INC [place] [address] LEONEL ZULLY HEAD/BRAI 2 MEDICAL BUBBA N W/O IMAGING CONTRAST ASS MATERIAL BLOOD 05938 LINETTE VERMAON COUNT 2 [facility] COMPLETE INC INC AUTO&AUTO DIFRNTL WBC CT ORBIT 35621 LEONEL ZULLY SELLA/POS 2 MEDICAL BUBBA T IMAGING FOSSA/EAR ASS W/O CONTRAST MATRL [facility] 56733 EDGE DONNIE EDGE DONNIE MICROGRAP 2 HIC H/N/H/F/G 1ST STAGE 5 BLOCKS ADJT TIS 06657 ODALYS MORROW LB TRNSFR/RE 2 ARRGMT E/N/E/L DFCT 10 SQ CM/< SUTR WND 15512 ODALYS MORROW LB EYELID/MA 2 RGIN/TARS US/CONJUN C FULL THICK ANES 78396 [place] MAJORS G INTEG 2 ANESTHESI [facility]C [facility] A ASSOC L NRV HEAD NECK&POST ERIOR TRUNK HEMOGLOBI 44526 LINETTE SUE N 2 [facility] GLYCOSYLA INC INC SONG A1C COMPREHEN 54682 LINETTE SUE SIVE 2 [facility] METABOLIC INC INC PANEL LIPID 83416 LINETTE SUE PANEL 2 [facility] INC INC BLOOD 74155 LINETTE VERMAON COUNT 2 [facility] COMPLETE INC INC AUTO&AUTO DIFRNTL WBC BLOOD 45094 LINETTE LINETTE COUNT 2 [facility] COMPLETE INC INC AUTO&[place] [address] ZULLY ZULLY MAXILLOFA 2 BUBBA BUBBA CIAL W/O CONTRAST MATERIAL RADIOLOGI 58229 ZULLY ZULLY C EXAM 2 BUBBA BUBBA CHEST 2 VIEWS FRONTAL&L ATERAL URNLS DIP 98365 LINETTE SUE 2 [facility] STICK/TAB INC [place] [address] LINETTE SUE HEAD/BRAI 2 [facility] N W/O INC INC CONTRAST MATERIAL BASIC 08165 LINETTE SUE METABOLIC 2 [facility] PANEL INC INC CALCIUM TOTAL ECG 10751 LINETTE SUE ROUTINE 2 [facility] ECG INC INC W/LEAST 12 LDS TRCG ONLY W/O I&R CREATINE 57746 LINETTE LINETTE KINASE MB 2 [facility] [place] [address] LINETTE SUE TROPONIN 2 [facility] QUANTITAT INC INC RUPA 3D 92540 LINETTE SUE RENDERING 2 [facility] W/INTERP INC INC & POSTPROCE SS SUPERVISI ON RHYTHM 67145 LINETTE SUE ECG 1-3 2 [facility] LEADS INC INC TRACING ONLY W/O I&R CREATINE 43883 LINETTE SUE KINASE 2 [facility] TOTAL INC INC ECG 05660 [facility] [place] ROUTINE 2 III AREN III AREN ECG W/LEAST 12 LDS I&R ONLY RHYTHM 33595 LINETTE LINETTE ECG 1-3 1 [facility] LEADS INC INC TRACING ONLY W/O I&R PRESSURIZ 19820 LINETTE SUE ED/NONPRE 1 [facility] SSURIZED INC INC INHALATIO N TREATMENT ECG 08780 BARAHONA MICHELLE BARAHONA MICHELLE ROUTINE 1 ECG W/LEAST 12 LDS I&R ONLY CREATINE 87987 LINETTE SUE KINASE 1 [facility] [place] [address] LINETTE SUE TROPONIN 1 [facility] QUANTITAT INC INC RUPA CREATINE 10991 LINETTE SUE KINASE MB 1 [facility] FRACTION INC INC ONLY ECG 11400 LINETTE SUE ROUTINE 1 [facility] ECG INC INC W/LEAST 12 LDS TRCG ONLY W/O I&R COMPREHEN 46936 LINETTE SUE SIVE 1 [facility] METABOLIC INC INC PANEL RADIOLOGI 50990 [facility]ULL[facility] Tyson 1 MEDICAL BUBBA EXAMINATI IMAGING ON CHEST ASS SING[place] FRONTAL BLOOD 88085 LINETTE SUE COUNT 1 [facility] COMPLETE INC INC AUTO&AUTO DIFRNTL WBC INCISIONA 06994 ODALYS MORROW LB L BIOPSY 1 EYELID SKIN & LID MARGIN EXC 07886 ODALYS MORROW LB LESION 1 EYELID W/O CLSR/W/SI MPLE DIR CLOSURE THERAPEUT 89650 LICKING LICKING IC 1 [facility] PROPHYLAC INTERNAL INTERNAL TIC/DX MED MED INJECTION SUBQ/IM XTRNL 11593 ODALYS MORROW LB OCULAR 1 PHOTOG W/I&R DOCMA MEDICAL PROGRE OPHTH 37537 [facility] 1 VISION XM&EVAL COMPRHNSV ESTAB PT 1/> [place] [address] NEW LENA RETROPERI 1 [facility] TONEAL CLINIC REAL [place] PSC W/[place] [address] NEW LENA ABDOMINAL 1 [facility] REAL CLINIC TIME PSC W/IMAGE LIMITED LIPID 99564 COMBINED COMBINED PANEL 1 PHYSICIAN PHYSICIAN S LA S LA GENERAL 68646 COMBINED COMBINED HEALTH 1 PHYSICIAN PHYSICIAN PANEL S LA S LA HEMOGLOBI 93070 COMBINED COMBINED N 1 PHYSICIAN PHYSICIAN GLYCOSYLA S LA S LA SONG A1C 3D 28804 HAWAII ZULLY RENDERING 1 MEDICAL BUBBA W/INTERP IMAGING & ASS POSTPROCE SS SUPERVISI ON MRI BRAIN 96327 [facility] BRAIN 1 MEDICAL BUBBA STEM W/O IMAGING CONTRAST ASS MATERIAL MRI 26599 [facility] SPINAL 1 MEDICAL BUBBA CANAL IMAGING CERVICAL ASS W/O CONTRAST MATRL RADIOLOGI 86193 [facility] C EXAM 1 MEDICAL BUBBA CHEST 2 IMAGING VIEWS ASS FRONTAL&L ATERAL BLOOD 53520 LINETTE SUE COUNT 1 [facility] COMPLETE INC INC AUTO&[place] [address] HA[place] ZULLY HEAD/BRAI 1 MEDICAL BUBBA N W/O IMAGING CONTRAST ASS MATERIAL BASIC 27308 LINETTE SUE METABOLIC 1 [facility] PANEL INC INC CALCIUM TOTAL ECG 26718 LINETTE SUE ROUTINE 1 [facility] ECG INC INC W/LEAST 12 LDS TRCG ONLY W/O I&R 3D 04283 LEONEL ANDREA RENDERING 1 MEDICAL BUBBA W/INTERP IMAGING & ASS POSTPROCE SS SUPERVISI ON CREATINE 66852 LINETTE SUE KINASE 1 [facility] TOTAL INC INC ECG 24009 [facility] ROUTINE 1 EMERGENCY III AREN ECG SERVICES W/LEAST 12 LDS I&R ONLY CREATINE 22822 LINETTE SUE KINASE MB 1 [facility] [address] LINETTE SUE TROPONIN 1 [facility] QUANTITAT INC INC RUPA BASIC 06010 LINETTE SUE METABOLIC 1 [facility] PANEL INC INC CALCIUM TOTAL LIPID 79357 LINETTE SUE PANEL 1 [facility] INC INC BLOOD 81845 LINETTE SUE COUNT 1 [facility] COMPLETE INC INC AUTO&AUTO DIFRNTL WBC ECHO 10251 LINETTE SUE TTHRC R-T 1 [facility] 2D INC INC W/WOM-[place] E COMPL SPEC&[place] [address] LINETTE VERMAON INFUSION 1 [facility] THERAPY INC INC PROPHYLAX IS/DX EA HOUR ESOPHAGOG 20442 Marbella ADAME ASTRODUOD 1 DEEP ARREOLA MD [facility] TRANSORAL DIAGNOSTI C OTHER 4513 LINETTE SUE ENDOSCOPY 1 [facility] OF SMALL INC INC INTESTINE SWALLOWIN 14980 LEONEL Ramey FUNCJ 1 MEDICAL BUBBA W/CINERAD IMAGING IOGRAPY/V ASS IDRADIOG BLOOD 85286 LINETTE SUE COUNT 1 [facility] COMPLETE INC INC AUTO&AUTO DIFRNTL WBC BASIC 48689 [facility] METABOLIC 1 [facility] PANEL INC INC CALCIUM TOTAL ECG 66866 [facility] ROUTINE 1 [facility] ECG INC INC W/LEAST 12 LDS TRCG ONLY W/O I&R URNLS DIP 28726 [facility]UE 1 [facility] STICK/TAB INC INC LET REAGENT AUTO MICROSCOP Y AMB A0427 DAVID HERNANDEZ SERVICE 1 [facility] ALS SERVICE SERVICE [place] [address] LEONEL ANDREA HEAD/BRAI 1 MEDICAL BUBBA N W/O IMAGING CONTRAST ASS MATERIAL RADIOLOGI 53509 LEONEL ANDREA C 1 MEDICAL BUBBA EXAMINATI IMAGING ON CHEST ASS SINGLE VIEW FRONTAL AMB A0422 DAVID HERNANDEZ OXYGEN&O2 1 [facility] SUPPLIES SERVICE SERVICE LIFE SUSTAININ G SITUATION ECG 77178 LINETTE MCKEMIE ROUTINE 1 [facility] ER W/LEAST P 12 LDS I&R ONLY CREATINE 03076 [facility] KINASE 1 [facility] TOTAL INC INC 3D 24759 LEONEL ANDREA RENDERING 1 MEDICAL [facility] W/INTERP IMAGING & ASS POSTPROCE SS SUPERVISI ON ALS A0398 DAVID HERNANDEZ ROUTINE 1 [facility] [place] [address] LEONEL ANDREA ABDOMEN & 1 MED[facility] PELVIS IMAGING [place] [address] [facility] INFUSION 1 [facility] THERAPY/P INC INC ROPHYLAXI S /DX 1ST [place] 1 [place] [address] [facility] TROPONIN 1 [facility] QUANTITAT INC INC RUPA 3D 70237 [facility] RENDERING 1 [facility] INC INC W/INTERP& POSTPROC DIFF WORK STATION CREATINE 25555 [facility] KINASE MB 1 [facility] FRACTION INC INC ONLY GROUND A0425 DAVID HERNANDEZ MILEAGE 1 [facility] PER SERVICE SERVICE STATUTE MILE SEDIMENTA 76740 [facility] S[facility] TION RATE 1 [facility] RBC INC INC NON-AUTOM ATED COMPREHEN 44384 [facility] SIVE 1 [facility] METABOLIC INC INC PANEL BLOOD 01317 [facility] COUNT 1 [facility] COMPLETE INC INC AUTO&[place] [address] [facility] S[facility] THYROID 1 [facility] STIMULATI INC INC NG HORMONE TSH SYPHILIS 68218 [facility] TEST 1 [facility] NON-TREPO INC INC NEMAL ANTIBODY QUAL SUSCEPTIB 27976 [facility] LTY STDY 1 [facility] ANTIMICRB INC INC IAL MICRO/AGA R DILUTJ CUL BACT 19745 [facility] AEROBIC 1 [facility] ADDL INC INC METHS DEFINITIV E EA ISOL CUL BACT 98123 [facility] XCPT 1 [facility] URINE INC INC BLOOD/STO OL AEROBIC ISOL 3D 77287 [facility] RENDERING 0 [facility] INC INC W/INTERP& [place] [address] [facility] S[facility] HEAD/BRAI 0 [facility] N W/O INC INC CONTRAST MATERIAL LARYNGOSC 28975 SAM FLORESY OPY 0 JAROD OLIVERA FLEXIBLE DIAGNOSTI C INITIAL 00704 SAM VARGAS INPATIENT 0 JAROD OLIVERA CONSULT NEW/ESTAB PT 55 MIN GROUND A0425 DAVID HERNANDEZ MILEAGE 0 [facility] PER SERVICE SERVICE STATUTE MILE AMB A0422 DAVID HERNANDEZ OXYGEN&O2 0 [facility] AMBULANCE SUPPLIES SERVICE SERVICE LIFE SUSTAININ G SITUATION RADIOLOGI 32926 HAWAII ZULLY C 0 MEDICAL BUBBA EXAMINATI IMAGING ON CHEST ASS SINGLE VIEW FRONTAL AMB A0427 DAVID HERNANDEZ SERVICE 0 [facility] AMBULANCE ALS SERVICE SERVICE EMERGENCY TRANSPORT LEVEL 1 MYOCARDIA 12007 [facility] FALLUJI L SPECT 0 PHYSIC[place] [address] HAWAII ZULLY ANGIOGRAP 0 MEDICAL BUBBA HY CHEST IMAGING W/CONTRAS ASS T/NONCONT RAST 14661 [facility] RETROPERI 0 [facility] EMERGENCY REAL TIME PSC W/IMAGE LIMITED BASIC 46695 [facility] METABOLIC 0 [facility] PANEL INC INC [facility] G0378 [facility] OBSERVATI 0 [facility] ON INC INC SERVICE PER HOUR BLOOD 09173 [facility] COUNT 0 [facility] COMPLETE INC INC AUTO&AUTO DIFRNTL WBC BLOOD 19354 [facility] COUNT 0 [facility] COMPLETE INC INC AUTO&[place] [address] LEONEL ZULLY, ABDOMEN 0 MEDICAL OLESYA W/O IMAGING CONTRAST ASSOCIATE MATERIAL S LAPAROSCO 74689 ALLRAN ALLRAN PIC 0 JR, JR, APPENDECT ADI F ADI F RAULITO ANESTHESI 62858 COMMUNITY CHUY, A 0 ANESTH LALO A INTRAPERI OF THE TONEAL BLUEGRASS LOWER ABD W/LAPS NOS LAPAROSCO 4701 [facility] SUE PIC 0 [facility] APPENDECT INC INC RAULITO LEVEL III 27802 PATHOLOGY PATHOLOGY SURG 0 & & PATHOLOGY CYTOLOGY CYTOLOGY LAB LAB [facility] G0378 [facility] OBSERVATI 0 [facility] [place] [address] [facility] SUE AMYLASE 0 [facility] INC INC 3D 33022 LEONEL ANDREA, RENDERING 0 MEDICAL OLESYA IMAGING W/INTERP& ASSOCIATE [place] [address] [facility] SUE TROPONIN 0 [facility] QUANTITAT INC INC RUPA CREATINE 89150 LIN[facility] SUE KINASE MB 0 [facility] FRACTION INC INC ONLY IAADI 72308 [facility] SUE INFFLUENZ 0 [facility] A A VIRUS INC INC IAADI 98620 [facility] SUE INFLUENZA 0 [facility] B VIRUS INC INC 3D 69767 [facility] SUE RENDERING 0 [facility] W/INTERP INC INC & [place] [address] [facility] LIPASE 0 [facility] INC INC CREATINE 94357 [facility] SUE KINASE 0 [facility] TOTAL INC INC RHYTHM 10300 LINET[facility] SUE ECG 1-3 0 [facility] LEADS INC INC TRACING ONLY W/O I&R ECG 43331 [facility] [place] ROUTINE 0 [facility] W/LEAST PROF SERV 12 LDS [place] [address] [facility] SUE INFUSION 0 [facility] THERAPY/P INC INC ROPHYLAXI S /DX 1ST TO 1 HR COMPREHEN 23328 LINETTE [facility] SIVE 0 [facility] METABOLIC INC INC PANEL ECG 92535 [facility] SUE ROUTINE 0 [facility] ECG INC INC W/LEAST 12 LDS TRCG ONLY W/[place] [address] LINETTE VERMAON INFUSION 0 [facility] THER INC INC PROPH ADDL SEQUENTIA L TO 1 HR CRITICAL 61413 [facility] 0 EMERGENCY III, ILL/INJUR SERVICES [facility] ED PATIENT ASSOCIATE INIT S 30-74 MIN URNLS DIP 87147 [facility] SUE 0 [facility] STICK/TAB INC INC LET REAGENT AUTO MICROSCOP Y CT PELVIS 44725 [facility], W/O 0 MEDICAL OLSEYA CONTRAST IMAGING MATERIAL ASSOCIATE S RADEX ABD 08652 HAWAII ZULLY, COMPL 0 MEDICAL OLESYA AQT ABD IMAGING W/S/E/D ASSOCIATE VIEWS [address] [place] [address] HAWAII ZULLY, HEAD/BRAI 0 MEDICAL OLESYA N W/O IMAGING CONTRAST ASSOCIATE MATERIAL S LIPID 16094 [facility] PANEL 0 [facility] INC INC COMPREHEN 55835 [facility] SIVE 0 [facility] [address] [facility] S[facility] THYROID 0 [facility] STIMULATI INC INC NG HORMONE TSH BLOOD 75919 [facility] SUE COUNT 0 [facility] COMPLETE INC INC AUTO&AUTO DIFRNTL WBC EGD 87657 GAIL SANCHEZ, TRANSORAL 9 MEDICAL ALEXIS BIOPSY SERV SINGLE/MU FOUNDATIO LTIPLE EGD 55874 GAIL SANCHEZ, INSERT 9 MEDICAL ALEXIS GUIDE SERV WIRE FOUNDATIO [place] [address] PATHOLOGY PATHOLOGY SURG 9 & & PATHOLOGY CYTOLOGY CYTOLOGY LAB LAB [facility] EX[facility] ESOPHAGOG 4516 [facility] SUE ASTRODUOD 9 [facility] ENOSCOPY INC INC WITH CLOSED BIOPSY DILATION 4292 LIN[facility]TE SUE OF 9 [facility] [place] [address] [facility] SUE INFUSION 9 [facility] THERAPY INC INC PROPHYLAX IS/DX EA HOUR EGD 29859 LINET[facility] SUE BALLOON 9 [facility] DILATION INC INC ESOPHAGUS <30 [place] [address] LINETTE SUE INFUSION 9 [facility] THERAPY/P INC INC ROPHYLAXI S /DX 1ST TO 1 HR SPECIAL 29491 PATHOLOGY PATHOLOGY STAIN 9 & & GROUP 1 CYTOLOGY CYTOLOGY MICROORGA LAB LAB NISMN I&R HEPATBL 08633 [facility] PALENCIA SYS 9 MEDICAL OLES[place] [address] [facility] SUE ABDOMINAL 9 [facility] REAL INC INC TIME W/[place] [address] BISHNU PAREDES, RETROPERI 9 [facility] A REAL TIME PSC W/IMAGE LIMITED LIPID 20343 [facility] SUE PANEL 9 [facility] INC INC ECG 28363 LINETTE GREENESON, ROUTINE 9 [facility] W/LEAST PROF SERV 12 LDS I&[place] [address] [facility] ANDREA HEAD/BRAI 9 MEDICAL OLESYA N W/O IMAGING CONTRAST ASSOCIATE MATERIAL S RADIOLOGI 00087 [facility]ella PALENCIA 9 MEDICAL OLESYA EXAMINATI IMAGING ON CHEST ASSOCIATE SINGLE S VIEW FRONTAL CREATINE 11409 LINETTE SUE KINASE 9 [facility] TOTAL INC INC COMPREHEN 91235 LIN[facility] SUE SIVE 9 [facility] METABOLIC INC INC PANEL BASIC 10740 [facility] SUE METABOLIC 9 [facility] PANEL INC INC CALCIUM TOTAL ECG 20026 LIN[facility] SUE ROUTINE 9 [facility] ECG INC INC W/LEAST 12 LDS TRCG ONLY W/O I&R 3D 23281 LINETTE SUE RENDERING 9 [facility] W/INTERP INC INC & POSTPROCE SS SUPERVISI ON BLOOD 71894 LIN[facility] SUE COUNT 9 [facility] COMPLETE INC INC AUTO&AUTO DIFRNTL WBC CREATINE 14381 LINETTE SUE KINASE MB 9 [facility] [place] [address] [facility] SUE TROPONIN 9 [facility] [place] [address] LEONEL ZULLY, ANGIOGRAP 9 MEDICAL OLESYA HY IMAGING ABDOMEN ASSOCIATE W/CONTRAS S T/[place] [address] LEONEL ZULLY, ANGIOGRAP 9 MEDICAL OLESYA HY CHEST IMAGING W/CONTRAS ASSOCIATE T/NONCONT S RAST DUPLEX 79150 [facility] SUE SCAN 9 [facility] EXTRACRAN INC INC IAL ART COMPL BI STUDY MRI BRAIN 58466 OLESYA C ZULLY, BRAIN 8 ZULLY OLESYA STEM W/O W/CONTRAS T MATERIAL LIPID 64713 [facility] SUE PANEL 8 [facility] INC INC COMPREHEN 51473 [facility] SUE SIVE 8 [facility] METABOLIC INC INC PANEL SPECIAL 85440 [facility] STAIN 8 CLINIC CLINIC GROUP 1 LABORATOR LABORATOR MICROORGA Y Y NISMS I&[place] [address] [facility] SURG 8 CLINIC CLINIC PATHOLOGY LABORATOR LABORATOR Y Y [place] [address] [facility], ABDOMINAL 8 [facility] REAL CLINIC TIME PSC W/[place] [address] [facility], RETROPERI 8 [facility] REAL TIME PSC W/IMAGE LIMITED COLLECTIO 13507 [facility] N VENOUS 8 CLINIC CLINIC BLOOD LABORATOR LABORATOR VENIPUNCT Y Y URE ANTIBODY 02144 [facility] HELICOBAC [address] [place] [address] LIN[facility] SUE ANGIOGRAP 8 [facility] HY INC INC ABDOMEN W/CONTRAS T/NONCONT RAST BLOOD 97586 LIN[facility]TE SUE COUNT 8 [facility] COMPLETE INC INC AUTO&[place] [address] LIN[facility] SUE TROPONIN 8 [facility] QUANTITAT INC INC RUPA CREATINE 29734 LINETTE SUE KINASE MB 8 [facility] FRACTION INC INC ONLY PROTHROMB 23777 LINETTE SUE IN TIME 8 [facility] INC INC ECG 00059 LINETTE MCCLAIN, ROUTINE 8 [facility] W/LEAST PROF SERV 12 LDS I&R ONLY CREATINE 47608 [facility] SUE KINASE 8 [facility] TOTAL INC INC THROMBOPL 06365 LINETTE SUE ASTIN 8 [facility] TIME INC INC PARTIAL PLASMA/WH OLE BLOOD RADIOLOGI 25334 Marbella LAWSON 8 MEDICAL CHAD P EXAMINATI IMAGING ON CHEST ASSOCIATE SINGLE S VIEW FRONTAL BASIC 87818 LIN[facility] SUE METABOLIC 8 [facility] PANEL INC INC CALCIUM TOTAL ECG 89073 LIN[facility] SUE ROUTINE 8 [facility] ECG INC INC W/LEAST 12 LDS TRCG ONLY W/O I&R RADEX 73016 LINETTE SUE SPINE 8 [facility] LUMBOSACR INC INC AL MINIMUM 4 VIEWS OPHTH 63208 KANE MIDDLETON, MEDICAL 8 MICHAEL A MICHAEL A XM&EVAL COMPRE NEW PT 1/> VST DUPLEX 83020 NESSA LI 8 MEDICAL OLESYA EXTRACRAN IMAGING IAL ART ASSOCIATE COMPL BI S STUDY RADIOLOGI 92616 Marbella LI 8 MEDICAL OLESYA EXAMINATI IMAGING ON CHEST ASSOCIATE SINGLE S VIEW FRONTAL AMB A0422 DAVID HERNANDEZ OXYGEN&O2 8 AMBULANCE AMBULANCE SUPPLIES SERVICE [place] [address] LEONEL ANDREA HEAD/BRAI 8 MEDICAL OLESYA N W/O IMAGING CONTRAST ASSOCIATE MATERIAL S AMB A0427 DAVID HERNANDEZ SERVICE 8 AMBULANCE AMBULANCE ALS SERVICE SERVICE EMERGENCY TRANSPORT LEVEL 1 3D 71766 LEONEL ANDREA, RENDERING 8 MEDICAL OLESYA W/INTERP IMAGING & ASSOCIATE [place] 3D [address]2517 LEONEL ANDREA, RENDERING 8 MEDICAL OLESYA IMAGING W/INTERP& ASSOCIATE POSTPROC S DIFF WORK STATION GROUND A0425 BROWN BROWN MILEAGE 8 AMBULANCE AMBULANCE [place] [address] [facility] ZULLY, CERVICAL 8 MEDICAL OLESYA SPINE W/O IMAGING CONTRAST ASSOCIATE MATERIAL S IODINE A9516 LINETTE SUE I-123 8 [facility] SODIUM INC INC IODIDE DX PER 100 UCI TO 999 THYROID 05578 LEONEL LUDY, IMAGING 8 MEDICAL CHAD P W/UPTAKE IMAGING SINGLE ASSOCIATE DETERMINA S TION THYROID 88176 LINETTE SUE UPTAKE 8 [facility] SINGLE INC INC DETERMINA TION COMPREHEN 89884 LINETTE SUE SIVE 8 [facility] METABOLIC INC INC PANEL ECG 71139 LINETTE SUE ROUTINE 8 [facility] ECG INC INC W/LEAST 12 LDS TRCG ONLY W/O I&R URNLS DIP 34100 [facility]TE SUE 8 [facility] STICK/TAB INC INC LET REAGENT AUTO MICROSCOP Y BLOOD 40437 LIN[facility] SUE COUNT 8 [facility] COMPLETE INC INC AUTO&AUTO DIFRNTL WBC CREATINE 98731 LINETTE SUE KINASE MB 8 [facility] [place] [address] LIN[facility] SUE TROPONIN 8 [facility] QUANTITAT INC INC RUPA CREATINE 81578 LIN[facility] SUE KINASE 8 [facility] TOTAL INC INC ECG 67530 LINETTE MCCLAIN ROUTINE 8 [facility] W/LEAST PROF SERV 12 LDS I&R ONLY COLLECTIO 78011 [facility] N VENOUS 8 CLINIC CLINIC BLOOD LABORATOR LABORATOR VENIPUNCT Y Y URE URNLS DIP 17450 [facility] 8 CLINIC CLINIC STICK/TAB LABORATOR LABORATOR LET Y Y REAGENT AUTO MICROSCOP Y RENAL 26518 [facility] FUNCTION 8 CLINIC CLINIC PANEL LABORATOR LABORATOR Y Y ECG 94834 LIN[facility] [place] ROUTINE 8 [facility] W/LEAST PROF SERV 12 LDS I&R ONLY ECG 23272 LINETTE SUE ROUTINE 8 [facility] ECG INC INC W/LEAST 12 LDS TRCG ONLY W/O I&R OBSERVATI 58379 LICKING ELIAS, ON CARE 8 [facility] DISCHARGE INTERNAL MED [facility] T [facility] G0378 LIN[facility] SUE OBSERVATI 8 [facility] ON INC INC SERVICE PER HOUR CREATINE 29964 LINETTE SUE KINASE MB 8 [facility] [place] [address] LIN[facility] SUE TROPONIN 8 [facility] QUANTITAT INC INC RUPA CREATINE 58907 LINETTE SEU KINASE 8 [facility] TOTAL INC INC RHYTHM 43074 LINETTE SUE ECG 1-3 8 [facility] LEADS INC INC TRACING ONLY W/O I&R PROTHROMB 43456 LINETTE SUE IN TIME 8 [facility] INC INC INITIAL 62839 NANDINI BOOEY, OBSERVATI 8 [facility] ON INTERNAL CARE/DAY MED 30 [place] [address] LINETTE SUE TROPONIN 8 [facility] QUANTITAT INC INC RUPA CREATINE 02378 LINETTE SUE KINASE MB 8 [facility] FRACTION INC INC ONLY BLOOD 37830 LIN[facility]TE SUE COUNT 8 [facility] COMPLETE INC INC AUTO&AUTO DIFRNTL WBC ECG 02136 [facility] SUE ROUTINE 8 [facility] ECG INC INC W/LEAST 12 LDS TRCG ONLY W/O I&R BASIC 89160 LIN[facility] SUE METABOLIC 8 [facility] PANEL INC INC CALCIUM TOTAL ECG 66277 LINETTE [place], ROUTINE 8 [facility] ECG HOSPITAL W/LEAST PROF SERV 12 LDS I&R ONLY RADIOLOGI 93826 [facility] LOPEZ MEDICAL CHAD P EXAMINATI IMAGING ON CHEST ASSOCIATE SINGLE S VIEW FRONTAL CREATINE 70042 LINETTE SUE KINASE 8 [facility] TOTAL INC INC CT THORAX 91316 Dawn LAWSON MEDICAL CHAD P W/CONTRAS IMAGING T ASSOCIATE MATERIAL S US SOFT 93542 LINETTE SUE TISSUE 8 [facility] HEAD & INC INC NECK REAL TIME IMGE DOCM 3D 66936 [facility] B[place], RENDERING 8 MEDICAL CHAD P IMAGING W/INTERP& [place]OCI[place] [address] LEONEL BOSTON, ABDOMEN 8 MEDICAL CHAD P W/CONTRAS IMAGING T ASSOCIATE MATERIAL S RADEX 74897 LIN[facility] SUE SPINE 8 [facility] CERVICAL INC INC [address] PELVIS 48194 [facility] SUE 8 [facility] W/[place] [address] LIN[facility] SUE THYROID 8 [facility] STIMULATI INC INC NG HORMONE TSH CYANOCOBA 46903 LINETTE SUE JUAN 8 [facility] VITAMIN INC INC B-12 BLOOD 24983 LINETTE SUE COUNT 8 [facility] COMPLETE INC INC AUTO&[place] [address] LINETTE SUE FOLIC 8 [facility] ACID INC INC SERUM HEMOGLOBI 67512 LINETTE SUE N 8 [facility] GLYCOS[place] [address] LINETTE SUE THYROXINE 8 [facility] TOTAL INC INC LIPID 31360 LIN[facility] SUE PANEL 8 [facility] INC INC COMPREHEN 67723 LIN[facility]TE SUE SIVE 8 [facility] METABOLIC INC INC PANEL BASIC 12955 LIN[facility]TE SUE METABOLIC 8 [facility] PANEL INC INC CALCIUM TOTAL INJECTION 23328 HAWAII MELINA, CARDIAC 8 HEART & AMADOR Y CATHJ L VASCULAR VENTR/L ASSOC ATR ANGIOGRAP H ECG 01035 LIN[facility]TE SUE ROUTINE 8 [facility] ECG INC INC W/LEAST 12 LDS TRCG ONLY W/O I&R L HRT 73648 HAWAII MELINA CATHETERI 8 HEART & AMADOR Y ZATION VASCULAR [place] [address] HAWAII MELINA, C-CATHJ 8 HEART & AMADOR Y F/SLCTV C VASCULAR ANGRPH ASSOC I SI&R 25907 HAWAII MELINA, F/NJX PX 8 HEART & AMADOR Y DURING VASCULAR C-CATHJ ASSOC VENTR&/AT R ANGRPH I SI&R 28763 LEONEL SUMMERS, Donya/NJX PX 8 HEART & AMADOR Y DURING VASCULAR C-CATHJ ASSOC PULM&/OR SELECT LIPID 47114 LINETTE SUE PANEL 8 [facility] INC INC ECG 14248 LEONEL RAYMONDJI, ROUTINE 8 HEART & NEZAR M ECG VASCULAR W/LEAST ASSOC 12 LDS I&R ONLY CREATINE 01876 LINETTE SUE KINASE 8 [facility] TOTAL INC INC INITIAL 07645 LEONEL SUMMERS, INPATIENT 8 HEART & AMADOR Y CONSULT VASCULAR NEW/ESTAB ASSOC PT 80 MIN [facility]PITAL G0378 LINETTE SUE OBSERVATI 8 [facility] ON [place] [address] LINETTE SUE TROPONIN 8 [facility] QUANTITAT INC INC RUPA CREATINE 35215 LINETTE SUE KINASE MB 8 [facility] FRACTION INC INC ONLY BLOOD 10614 LINETTE SUE COUNT 8 [facility] COMPLETE INC INC AUTO&AUTO DIFRNTL WBC GROUND A0425 [facility] 8 AMBULANCE AMBULANCE PER SERVICE SERVICE STATUTE MILE NONINVASI 13950 LINETTE SUE VE 8 [facility] EAR/PULSE INC INC OXIMETRY SINGLE DETER NONINVASI 50718 LIN[facility]TE SUE VE 8 [facility] EAR/PULSE INC INC OXIMETRY SINGLE DETER RHYTHM 47483 LINETTE SUE ECG 1-3 8 [facility] LEADS INC INC TRACING ONLY W/O I&R ECG 79267 LINETTE MCCLAIN, ROUTINE 8 [facility] ECG HOSPITAL W/LEAST PROF SERV 12 LDS I&R ONLY PROTHROMB 88837 LINETTE SUE IN TIME 8 [facility] INC INC BLOOD 94003 LIN[facility] SUE COUNT 8 [facility] COMPLETE INC INC AUTO&AUTO DIFRNTL WBC HOSPITAL G0378 LIN[facility] SUE OBSERVATI 8 [facility] ON INC INC SERVICE PER HOUR NATRIURET 15192 LINETTE SUE IC 8 [facility] [place] [address] LINETTE SUE TROPONIN 8 [facility] QUANTITAT INC INC [place] CREATINE 28994 LINETTE SUE KINASE MB 8 [facility] FRACTION INC INC ONLY CREATINE 00179 LINETTE SUE KINASE 8 [facility] TOTAL INC INC THROMBOPL 81856 LIN[facility]TE SUE ASTIN 8 [facility] TIME INC INC PARTIAL PLASMA/WH OLE BLOOD RADIOLOGI 80648 LINETTE SUE C 8 [facility] EXAMINATI INC INC ON CHEST SINGLE VIEW FRONTAL ECG 74853 LINETTE SUE ROUTINE 8 [facility] ECG INC INC W/LEAST 12 LDS TRCG ONLY W/O I&R COMPREHEN 09960 [facility]TE SUE SIVE 8 [facility] METABOLIC INC INC PANEL MRI 83850 OLESYA C ZULLY, SPINAL 8 ZULLY OLESYA CANAL LUMBAR W/O CONTRAST MATERIAL MRI 76382 OLESYA C ZULLY, SPINAL 8 ZULLY OLESYA CANAL CERVICAL W/O CONTRAST [facility] SERVICES 80477 Brigida CALVILLO 8 KRISTIAN DOSS C OFFICE PSC [facility]/N REG SCHED HOURS Encounters Encounter Start End Date Code Location Performer Type Date [facility] - 7 7 [facility] OUTPATIEN INC T OFFICE 00741 [facility] - 7 7 [facility]PATIEN INC T [facility] - 7 7 [facility] OUTPATIEN INC T OFFICE 36362 [facility] PHYSICIAN T VISIT S GROUP 40 MINUTES HOSPITAL LINETET - 7 7 [facility] OUTPATIEN INC [facility] LINETTE - 7 7 [facility] OUTPATIEN INC T OFFICE 24766 [facility] OUTPATIEN 7 7 PHYSICIAN T VISIT S GROUP 40 MINUTES OFFICE 78983 [facility] KATE OUTPATIEN 7 7 Kate TOWNSEND VISIT ,PSC 15 MINUTES HOSPITAL LIN[facility]TE - 7 7 [facility] OUTPATIEN INC T OFFICE 04429 [facility] OUTPATIEN 7 7 PHYSICIAN T VISIT S GROUP 40 MINUTES HOSPITAL LIN[facility]TE - 7 7 [facility] OUTPATIEN INC T OFFICE 72558 [facility] CB OUTPATIEN 7 7 PHYSICIAN T VISIT 5 S GROUP MINUTES HOSPITAL LIN[facility]TE - 7 7 [facility] OUTPATIEN INC T EMERGENCY 35873 DEMETRIS IVRK 7 7 [facility] T [facility] HIGH/URGE NT SEVERITY OFFICE 07119 LINETTE MCKEON 7 7 [facility] T VISIT HOSPITAL 10 P MINUTES EMERGENCY 35734 DEMETRIS ANDERS DEPT 7 7 PHYSICIAN VISIT S, [facility] HIGH SEVERITY& THREAT FUNJ EMERGENCY 34252 LINETTE 7 7 [facility] DEPARTMEN INC T VISIT LOW/MODER SEVERITY HOSPITAL [facility]TE - 7 7 [facility] OUTPATIEN INC T OFFICE 13258 [facility] OUTPATI[facility] 7 7 T NEW 30 CHIROPRAC MINUTES [facility] LINETTE - 7 7 [facility] OUTPATIEN INC T OFFICE 84825 L[facility]IA KATE OUTPATIEN 7 7 Kate TOWNSEND VISIT ,PSC 25 MINUTES OFFICE 21941 LINETTE MCKEON 7 7 [facility] T VISIT 5 INC MINUTES HOSPITAL LIN[facility]TE - 7 7 [facility] OUTPATIEN INC T [facility]OSPITAL [facility] - 7 7 [facility] OUTPATIEN INC T HOSPITAL [facility]TE - 7 7 [facility] OUTPATIEN INC T OFFICE 26073 [facility] OUTPATIEN 7 7 PHYSICIAN T VISIT S GROUP 25 MINUTES HOSPITAL [facility] - 7 7 [facility] OUTPATIEN INC T HOSPITAL [facility] - 7 7 [facility] OUTPATIEN INC T EMERGENCY 10984 DEMETRIS HUYNH DEPT 7 7 PHYSICIAN U VISIT S, PLLC HIGH SEVERITY& THREAT FUNCJ EMERGENCY 15979 LINETTE 7 7 [facility] DEPARTMEN INC T VISIT MODERATE SEVERITY HOSPITAL LINETTE - 7 7 [facility] OUTPATIEN INC T OFFICE 77433 LINETTE LEIVA OUTPATIEN 7 7 [facility] T VISIT HOSPITAL 15 P MINUTES OFFICE 84907 [facility] GRETCHEN OUTPATIEN 7 7 [facility] T VISIT MEDICAL 15 G MINUTES HOSPITAL LIN[facility]TE - 6 6 [facility] OUTPATIEN INC T OFFICE 09115 [facility] OUTPATIEN 6 6 PHYSICIAN T VISIT S GROUP 25 MINUTES [facility] LINETTE - 6 6 [facility] OUTPATIEN INC T OFFICE 77044 LAVINIA TOWNSEND OUTPATIEN 6 6 KRISTIAN T GREG DOSS,[facility] 25 MINUTES OFFICE 74099 LIN[facility]TE LEIVA OUTPATIEN 6 [facility] 10 P MINUTES OFFICE 52258 KANE FERRARA OUTPATIEN 6 6 T VISIT 10 MINUTES [facility] LIN[facility]TE - 6 6 [facility] OUTPATIEN INC T EMERGENCY 30005 DEMETRIS ANDERS DEPT 6 6 PHYSICIAN CHARLEY VISIT S, PLLC HIGH SEVERITY& THREAT FUNCJ EMERGENCY 75489 LINETTE 6 6 [facility] DEPARTMEN INC T VISIT HIGH/URGE NT SEVERITY OFFICE 45581 LAVINIA KATYA OUTPATIEN 6 6 STEPHEN TOWNSEND MD,PSC MINUTES HOSPITAL LIN[facility] - 6 6 [facility] OUTPATIEN INC T HOSPITAL LINETTE - 6 6 [facility] OUTPATIEN INC T EMERGENCY 06889 DEMETRIS ANDERS 6 6 PHYSICIAN CHARLEY DEPARTMEN S, [facility] T VISIT HIGH/URGE NT SEVERITY EMERGENCY 05995 LIN[facility]TE 6 6 [facility] DEPARTMEN INC T VISIT MODERATE SEVERITY OFFICE 43593 [facility] TOD OUTPATIEN 6 6 PHYSICIAN T VISIT S GROUP 10 MINUTES HOSPITAL LINETTE - 6 6 [facility] OUTPATIEN INC T OFFICE 47119 [facility] TOD OUTPATIEN 6 6 PHYSICIAN T VISIT 5 S GROUP MINUTES OFFICE 20811 [facility] OUTPATIEN 6 6 PHYSICIAN CHARLEY T VISIT S GROUP 15 MINUTES HOSPITAL LINETTE - 6 6 [facility] OUTPATIEN INC T HOSPITAL LINETTE - 6 6 [facility] OUTPATIEN INC T OFFICE 16066 [facility] OUTPATIEN 6 6 PHYSICIAN MAT T VISIT S GROUP 25 MINUTES HOSPITAL LINETTE - 6 6 [facility] OUTPATIEN INC T OFFICE 33056 [facility] CONSULTAT 6 6 PHYSICIAN ION S GROUP NEW/ESTAB PATIENT 30 MIN OFFICE 83775 [facility] OUTPATIEN 6 6 PHYSICIAN CHARLEY T VISIT S GROUP 10 MINUTES OFFICE 05121 [facility] OUTPATIEN 6 6 PHYSICIAN CHARLEY T VISIT S GROUP 10 MINUTES OFFICE 51366 BOYD ASHER OUTPATIEN 6 6 MD JERMAINE, T VISIT PSC 15 MINUTES OFFICE 11281 [facility] OUTPATIEN 6 6 PHYSICIAN [place] T VISIT S GROUP 10 MINUTES OFFICE 24043 BOYD ASHER OUTPATIEN 6 6 MD JERMAINE, T VISIT PSC 15 MINUTES OFFICE 56967 PROGRESSI BANDAR OUTPATIEN 6 6 VE TEREZA T NEW 30 PODIATRY MINUTES OFFICE 59277 [facility] [place] OUTPATIEN 6 6 PHYSICIAN EUG T VISIT S GROUP 15 MINUTES OFFICE 43182 BOYD BARRETT OUTPATIEN 6 6 MD JERMAINE, T VISIT PSC 25 MINUTES OFFICE 22952 [facility] 6 [facility] T V[facility] 10 MINUTES [facility] 6 6 [facility]PATIEN [facility] T HOSP[facility] - 6 6 [facility]PATIEN [facility] T HOSPITAL [facility] - 6 6 [facility] OUTPATIEN [facility] UNIVERSIT - 6 6 Y [facility] T OFFICE 09746 [place] [facility] 6 6 MEDICAL THO ION SERV NEW/ESTAB FOUNDATIO PATIENT N 40 MIN OFFICE 74401 [facility] T VISIT 5 HOSPITAL MINUTES [facility] - 6 6 [facility] OUTPAT[facility]EN [facility] T OFFICE 10193 SCIFRES SCIFRES OUTPATIEN 6 6 ANG ANG T VISIT 10 MINUTES OFFICE 49336 BYOD ASHER OUTPATIEN 6 6 MD JERMAINE, T VISIT PSC 15 MINUTES [facility] - 6 6 [facility] OUTPATIEN INC T EMERGENCY 87897 [facility] 6 6 [facility] DEPARTMEN INC T VISIT HIGH/URGE NT SEVERITY [facility] - 6 6 [facility] OUTPATIEN [facility] T EMERGENCY 43765 DEMETRIS NIELSON DEPT 6 6 PHYSICIAN VISIT S, [facility] HIGH SEVERITY& THREAT [facility] - 6 6 [facility] OUTPATIEN [facility] - 6 6 [facility] OUTPATIEN [facility] - 5 5 [facility] OUTPATIEN [facility] EMERGENCY 73738 [facility] 5 5 [facility] T VISIT LOW/MODER SEVERITY [facility] - 5 5 [facility] OUTPATIEN [facility] EMERGENCY 84944 DEMETRIS MOREL 5 5 PHYSICIAN DEPARTMEN S, [facility] T VISIT MODERATE SEVERITY OFFICE 86098 [facility] PH[facility] [place] T VISIT S GROUP 10 MINUTES OFFICE 52939 [facility] GRET[facility] OUTPATIEN 5 5 [facility] T VISIT MEDICAL 15 G MINUTES HOSP[facility] - 5 5 [facility] OUTPATIEN [facility] OFFICE 57097 BOYD ASHER OUTPATIEN 5 5 MD JERMAINE, T VISIT [facility] 15 MINUTES HOSPITAL [facility] - 5 5 [facility] OUTPATIEN [facility] HOSPITAL [facility] - 5 5 [facility] OUTPATIEN [facility] T OFFICE 81024 BOYD BARRETT OUTPATIEN 5 5 MD JERMAINE, T VISIT PSC 15 MINUTES HOSP[facility] - 5 5 [facility] OUTPATIEN [facility] T OFFICE 00460 [facility] LEIVA OUTPATIEN 5 5 [facility] T VIS[facility] 10 P MINUTES EMERGENCY 74055 DEMETRIS HUYNH 5 5 PHYSICIAN Dee [facility] T VISIT HIGH/URGE NT SEVERITY OFFICE 05695 [facility] ESCOBARKINS [facility]PATIEN 5 5 [facility] 15 P MINUTES OFFICE 46309 FREDY DEAN ANJ OUTPATIEN 5 5 MD T VISIT 10 MINUTES [facility] - 5 5 [facility] OUTPATIEN INC T OFFICE 03741 CARDIOVAS [facility]O OUTPATIEN 5 5 CULAR MAT T VISIT CONSULTAN 15 TS O MINUTES [facility] - 5 5 [facility] OUTPATIEN INC T OFFICE 25283 FREDY PATTERSONX ANJ OUTPATIEN 5 5 T NEW 30 MINUTES [facility] - 5 5 [facility] INC T [facility] - 5 5 [facility] OUTPATI[facility] INC T OFFICE 62093 CARDIOVAS CHAYO OUTPATIEN 5 5 CULAR MAT T NEW 45 CONSULTAN MINUTES TS O [facility]OSP[facility] - 5 5 [facility] OUTPATIEN INC T OFFICE 04519 [facility] OUTPATIEN 5 5 PHYSICIAN [place] T VISIT S GROUP 10 MINUTES [facility] - 5 5 [facility] [facility] OUTPAT[facility]EN [facility] T EMERGENCY 22018 [facility] 5 [facility] T VISIT HIGH/URGE NT SEVERITY OFFICE 85816 [facility] GRETCHEN OUTPATIEN 4 4 [facility] T VISIT MEDICAL 10 G MINUTES [facility] - [facility] 4 [facility] - [facility] 4 [facility] T OFFICE 93051 LEIVA LEIVA OUTPATIEN 4 4 ART ART T VISIT 15 MINUTES OFFICE 00222 LEIVA LEIVA OUTPATIEN 4 4 ART ART T VISIT 15 MINUTES EMERGENCY 90683 JAIDEN CAMILLA JAIDEN CAMILLA 4 4 DEPARTMEN T VISIT HIGH/URGE NT SEVERITY [facility] T OFFICE 85028 GRETCHEN GODINEZ OUTPATIEN 4 4 JUDAH TREVINO T NEW 45 MINUTES OFFICE 42712 CHAGO ANDERS OUTPATIEN 4 4 [facility] T VISIT 10 MINUTES EMERGENCY 03233 [facility] 4 4 [facility] T VISIT MODERATE SEVERITY EMERGENCY 52150 [facility] 4 4 III AREN III AREN DEPARTMEN T VISIT HIGH/URGE NT SEVERITY [facility] - 4 4 [facility] - [facility] 4 [facility] T EMERGENCY 44691 [facility] DEPT 4 4 III AREN III AREN VISIT HIGH SEVERITY& THREAT FUN OFFICE 31036 CHAGO ANDERS OUTPATIEN 4 4 [facility]LEY CHARLEY T NEW 30 MINUTES EMERGENCY 31634 [facility] DEPT 4 4 [facility] VISIT INC HIGH SEVERITY& THREAT [facility] - 4 4 [facility] T OFFICE 61153 VITA TREVINO OUTPATIEN 4 4 T NEW 45 MINUTES HOSP[facility] - 3 3 [facility] T OFFICE 08200 NATHALY ANDERSEN OUTPATIEN 3 3 JR AREN JR AREN T VISIT 15 MINUTES HOSPITAL UNIVERSIT - 3 3 [facility] T OFFICE 08445 UNIVERSIT OUTPATI 3 3 Y T NEW 10 HOSPITAL MINUTES OFFICE 37146 POPEYE PHI POEPYE PHI CONSULTAT 3 3 ION NEW/ESTAB PATIENT 40 MIN HOSPITAL [facility] - 3 3 [facility] OUTPATIEN INC T OFFICE 22386 MCKEMIE MCKEMIE OUTPATIEN 3 3 JR AREN YOUNGER T VISIT 15 MINUTES HOSPITAL [facility] - 3 3 [facility] OUTPATIEN INC T HOSPITAL [facility] - 3 3 [facility] T [facility] - 3 3 [facility] OUTPATIEN [facility] T HOSPITAL [facility] 3 3 [facility] OUTPATIEN [facility] T OFFICE 63424 LAUREN AGUILAR OUTPATIEN 3 3 SAVITA [facility] T VISIT 15 MINUTES HOSPITAL [facility] - 3 3 [facility] OUTPATIEN [facility] T OFFICE 79751 MCKEMIE MCKEMIE OUTPATIEN 3 3 JR AREN YOUNGER T VISIT 15 MINUTES OFFICE 32979 MCKEMIE MCKEMIE OUTPATIEN 3 3 JR AREN YOUNGER T VISIT 15 MINUTES HOSPITAL [facility] - 3 3 [facility] OUTPATIEN [facility] T OFFICE 78714 MCKEMIE MCKEMIE OUTPATIEN 3 3 JR AREN YOUNGER T VISIT 15 MINUTES Emergency SERGIO BRADFORD MD (ER) 3 15:33 3 19:06 [facility] EMERGENCY 63650 [facility] 3 3 [facility] DEPARTMEN INC T VISIT LOW/MODER SEVERITY HOSPITAL [facility] - 3 3 [facility] OUTPATIEN INC T EMERGENCY 75430 VOLODYMYR BRADFORD 3 3 EMERGENCY [facility] T VISIT HIGH/URGE NT SEVERITY OFFICE 81016 MCKEMIE MCKEMIE OUTPATIEN 3 3 JR AREN YOUNGER T VISIT 15 MINUTES Emergency SERGIO Linette (ER) 3 18:40 3 21:51 [facility] - 3 3 [facility] OUTPATIEN INC EMERGENCY 38704 [facility] 3 3 [facility] DEPARTMEN [facility] T VISIT HIGH/URGE NT SEVERITY EMERGENCY 08379 [facility] 3 [facility] VISIT HIGH SEVERITY& THREAT [facility] - 3 3 [facility] OUT[facility]EN [facility] T OFFICE 69406 NATHALY ANDERSEN OUTPATIEN 3 3 JR AREN YOUNGER T VISIT 15 MINUTES EMERGENCY 29541 [facility] 3 3 [facility] VISIT HIGH SEVERITY& [facility]REAT [facility] 29351 [facility] 3 3 [facility] DEPARTMEN [facility] T VISIT HIGH/URGE NT SEVERITY [facility]OSPITAL [facility] - 3 3 [facility] OUTPAT[facility]EN [facility] - 2 2 [facility]EN [facility] - 2 2 [facility] OUTPATIEN [facility] T OFFICE 60907 CALI ESCOBARKINS OUTPATIEN 2 2 ART CORDOVA T VISIT 5 MINUTES HOSPITAL [facility] - 2 2 [facility] - 2 2 [facility]PAT[facility]EN [facility] T OFFICE 18553 CALI ESCOBARKINS OUTPATIEN 2 2 ART CORDOVA T NEW 20 MINUTES HOSP[facility] - 2 2 [facility] OUTPATIEN INC T OFFICE 63149 JAMA YUN OUTPATIEN 2 2 ARPAN ANTONY T VISIT 15 MINUTES HOSPITAL [facility] - 2 2 [facility] T OFFICE 18896 JAMA YUN OUTPATIEN 2 2 ARPAN ANTONY T VISIT 15 MINUTES OFFICE 13918 NICK ROMERO OUTPATIEN 2 2 CARLOTA JAM T NEW 60 MINUTES OFFICE 54377 MCKEMIE MCKEMIE OUTPATIEN 2 2 JR AREN YOUNGER T VISIT 15 MINUTES HOSPITAL [facility] - 2 2 [facility]PAT[facility] T OFFICE 10587 JOHNY MCCLAIN OUTPATIEN 2 2 CAMILLA CAMILLA T VISIT 25 MINUTES OFFICE 85335 KANE FERRARA OUTPATIEN 2 2 T VISIT 10 MINUTES EMERGENCY 41440 [facility] DEPT 2 2 III AREN III AREN VISIT HIGH SEVERITY& THREAT [facility] INC T EMERGENCY 30743 [facility] 2 2 [facility] DEPARTMEN INC T VISIT HIGH/URGE NT SEVERITY OFFICE 58966 MCKEMIE MCKEMIE OUTPATIEN 2 2 JR AREN YOUNGER T VISIT 15 MINUTES OFFICE 62218 EDGE DONNIE FRANCES [facility] OUTPATIEN 2 2 T NEW 10 MINUTES HOSPITAL [facility] - 2 2 [facility] OUTPATI[facility] INC T OFFICE 75114 ODALYS LB ODALYS LB OUTPATIEN 2 2 T VISIT 10 MINUTES EMERGENCY 79194 [facility] DEPT 2 2 III AREN III AREN VISIT HIGH SEVERITY& THREAT [facility] 78071 [facility] 2 2 [facility] DEPARTMEN INC T VISIT MODERATE SEVERITY [facility] - 2 2 [facility] T [facility] - 1 1 [facility] INC T EMERGENCY 97704 BARAHONA MICHELLE BARAHONA MICHELLE DEPT 1 1 VISIT HIGH SEVERITY& THREAT FUNCJ EMERGENCY 99207 [facility] 1 1 [facility] DEPARTMEN INC T VISIT MODERATE SEVERITY OFFICE 05909 [facility] OUTPATIEN 1 1 [facility] T VISIT INTERNAL 25 MED MINUTES OFFICE 09646 ODALYS LB ODALYS LB OUTPATIEN 1 1 T NEW 30 MINUTES OFFICE 72112 NEW TAMIKO OUTPATIEN 1 1 [facility] T VISIT CLINIC 15 PSC MINUTES OFFICE 28554 NEW MITCH MAT OUTPATIEN 1 1 POY SIPPI T VISIT CLINIC 25 PSC MINUTES OFFICE 42960 [facility] OUTPATIEN 1 1 [facility] T VISIT INTERNAL 25 MED MINUTES OFFICE 22768 BISHNU MCCORMACK CONSULTAT 1 1 [facility] NEW/ESTAB PSC PATIENT 80 MIN [facility]OSP[facility] - 1 1 [facility] T OFFICE 79346 [facility] OUTPATIEN 1 1 [facility] T [facility]ISIT INTERNAL 15 MED MINUTES HOSPITAL [facility] - 1 1 [facility] OUTPATIEN INC T EMERGENCY 73824 [facility]ET[facility] 1 1 [facility] DEPARTMEN INC T VISIT MODERATE SEVERITY EMERGENCY 07851 VOLODYMYR CAMPOS DEPT 1 1 EMERGENCY III AREN VISIT SERVICES HIGH SEVERITY& THREAT [facility] OFFICE 40133 [facility] OUTPATIEN 1 1 [facility] T VISIT INTERNAL 25 MED MINUTES OFFICE 82204 [facility] OUTPATIEN 1 1 [facility] T VISIT INTERNAL 25 MED MINUTES H[facility] - 1 1 [facility] OUTPATIEN INC T H[facility]PITAL [facility] - 1 1 [facility] OUTPATIEN INC T OFFICE 39074 [facility] BESS[facility] OUTPATIEN 1 1 [facility] CAM[facility] T VISIT INTERNAL 25 MED MINUTES HOSPITAL [facility] - 1 1 [facility] OUTPATIEN INC HOSPITAL [facility] - 1 1 [facility] OUTPATIEN INC T OFFICE 47536 [facility] B[facility] OUTPATIEN 1 1 [facility] VISIT INTERNAL 15 MED MINUTES EMERGENCY 82894 [facility] 1 1 [facility] T VISIT HIGH/URGE NT SEVERITY HOSPITAL [facility] - 1 1 [facility] OUTPATIEN INC T EMERGENCY 10520 VOLODYMYR CAMPOS DEPT 1 1 EMERGENCY III AREN VISIT SERVICES HIGH SEVERITY& THREAT FUNCJ OFFICE 07217 [facility] MCKEMIE OUTPATIEN 1 1 NAHUN YOUNGER T VISIT INTERNAL 15 MED MINUTES OFFICE 96751 [facility] MCKEMIE OUTPATIEN 1 1 NAHUN YOUNGER VISIT INTERNAL 15 MED MINUTES HOSPITAL [facility] - 1 1 [facility] OUTPATIEN [facility] T OFFICE 13944 [facility] OUTPATIEN 1 1 [facility] VISIT INTERNAL 15 MED MINUTES HOSPITAL [facility] - 1 1 [facility] OUTPATIEN [facility] T OFFICE 26292 [facility] LAUREN OUTPATIEN 1 1 [facility] VISIT INTERNAL 15 MEDI MINUTES OFFICE 73282 [place] MCKEMIE OUTPATIEN 0 0 NAHUN YOUNGER T VISIT INTERNAL 15 MED MINUTES HOSPITAL [facility] - 0 0 [facility] OUTPATIEN INC T OFFICE 31301 [place] MCKEMIE OUTPATIEN 0 0 NAHUN YOUNGER T VISIT INTERNAL 15 MED MINUTES EMERGENCY 03414 VOLODYMYR BOURNE DEPT 0 0 EMERGENCY VISIT SERVICES HIGH SEVERITY& THREAT FUNCJ OFFICE 66516 [facility] OUTPATIEN 0 0 NAHUN SAMPSON VISIT INTERNAL 15 MED MINUTES OFFICE 46816 BISHNU Aguilar OUTPATIEN 0 0 [facility] T VISIT CLINIC 15 PSC MINUTES OFFICE 18078 [place] MCKEMIE OUTPATIEN 0 0 NAHUN Kate VISIT INTERNAL MCKAYLA F 15 MED MINUTES EMERGENCY 27498 [facility] 0 0 [facility] DEPARTMEN INC T VISIT HIGH/URGE NT SEVERITY [facility] - 0 0 [facility] OUTPATIEN INC T OFFICE 82225 ALLRAN ALLRAN CONSULTAT 0 0 JR CECELIA, ANH ADI Naqvi NEW/ESTAB PATIENT 80 MIN OFFICE 45494 [facility] MCKEMIE OUTPATIEN 0 0 Kate GARNICA JR VISIT INTERNAL MCKAYLA F 15 MED MINUTES HOSP[facility] - 0 0 [facility] OUTPATIEN INC T OFFICE 67426 [facility] MCKEMIE OUTPATIEN 9 9 Kate GARNICA JR VISIT INTERNAL MCKAYLA F 15 MED MINUTES HOSPITAL [facility] - 9 9 [facility] OUTPAT[facility] INC T OFFICE 27274 GAIL SANCHEZ OUTPATIEN 9 9 ULI ALEXIS T VISIT SERV 25 FOUNDATIO MINUTES HOSPITAL [facility] - 9 9 [facility] OUTPATIEN INC [facility] - 9 9 [facility] OUTPAT[facility] INC T OFFICE 86298 [facility] JOHNY OUTPATIEN 9 9 NAHUN Allred T VISIT INTERNAL 15 MED MINUTES OFFICE 15598 Lauren WAYNE OUTPATIEN 9 9 [facility] T VISIT CLINIC 15 PSC MINUTES OFFICE 49295 [facility] MCKEMIE OUTPATIEN 9 9 Kate GARNICA JR VISIT INTERNAL MCKAYLA F 15 MED MINUTES EMERGENCY 53778 VOLODYMYR MASON, DEPT 9 9 [facility]ER[facility] [place] VISIT SERVICES O HIGH SEVERITY& ASSOCIATE THREAT S FUN EMERGENCY 40514 [facility] 9 9 [facility] DEPARTMEN INC T VISIT HIGH/URGE NT SEVERITY HOSPITAL [facility] - 9 9 [facility] OUTPATIEN INC T OFFICE 10905 [facility] MCKEMIE OUTPATIEN 9 9 Kate GARNICA JR VISIT INTERNAL MCKAYLA F 15 MED MINUTES OFFICE 56180 [facility] ELISA, OUTPATIEN 9 9 NAHUN SHEFFIELD T VISIT INTERNAL 15 MED MINUTES OFFICE 86330 [facility] JOHNY, OUTPATIEN 9 9 NAHUN Allred T VISIT INTERNAL 10 MED MINUTES OFFICE 75822 [facility] MCKEMIE OUTPATIEN 9 9 NAHUN RAI T VISIT INTERNAL MCKAYLA F 15 MED MINUTES HOSPITAL [facility] - 9 9 [facility] OUTPATIEN INC T OFFICE 46422 [facility] ELIAS, OUTPATIEN 9 9 NAHUN SHEFFIELD T VISIT INTERNAL 15 MED MINUTES HOSPITAL [facility] - 8 8 [facility] OUTPATIEN INC T OFFICE 94101 [facility] ELIAS, OUTPATIEN 8 8 NAHUN SHEFFIELD T VISIT INTERNAL 15 MED MINUTES OFFICE 81975 [facility] ELIAS, OUTPATIEN 8 8 NAHUN SHEFFIELD T VISIT INTERNAL 15 MED MINUTES OFFICE 13898 [facility] MCKEMIE OUTPATIEN 8 8 Kate GARNICA JR VISIT INTERNAL MCKAYLA F 15 MED MINUTES OFFICE 58027 Lauren WAYNE OUTPATIEN 8 8 [facility] T VISIT CLINIC 15 PSC MINUTES HOSPITAL [facility] - 8 8 [facility] OUTPATIEN INC T EMERGENCY 83899 [facility] 8 8 [facility] DEPARTMEN INC T VISIT MODERATE SEVERITY EMERGENCY 09208 AMBERLY MASON, ILIANAT 8 8 [facility] [place] VISIT CORPORATI O HIGH ON SEVERITY& THREAT FUNJ OFFICE 74397 [facility] MCKEMIE OUTPATIEN 8 8 NAHUN RAI, T VISIT INTERNAL MCKAYLA F 15 MED MINUTES HOSPITAL [facility] - 8 8 [facility] OUTPAT[facility] INC T OFFICE 89583 [place] MCKEMIE OUTPATIEN 8 8 NAHUN RAI, T VISIT INTERNAL MCKAYLA F 15 MED MINUTES HOSPITAL [facility] - 8 8 [facility] OUTPATIEN INC T OFFICE 46719 [place] MCKEMIE OUTPATIEN 8 8 NAHUN RAI, T VISIT INTERNAL MCKAYLA F 15 MED MINUTES OFFICE 07646 NEW BEN OUTPATIEN 8 8 POY SIPPI III, T VISIT CLINIC RADHA L 10 PSC MINUTES OFFICE 88223 Lauren WAYNE CONSULTAT 8 8 [facility] CLINIC NEW/ESTAB PSC PATIENT 60 MIN OFFICE 51582 [place] MCKEMIE OUTPATIEN 8 8 NAHUN RAI, T VISIT INTERNAL MCKAYLA F 15 MED MINUTES HOSPITAL [facility] - 8 8 [facility] OUTPATIEN INC T EMERGENCY 48583 [facility] 8 8 [facility] DEPARTMEN INC T VISIT HIGH/URGE NT SEVERITY HOSPITAL [facility] - 8 8 [facility] OUTPATIEN INC T EMERGENCY 87220 [facility] SMALL, 8 8 [facility] T VISIT PROF SERV MODERATE SEVERITY OFFICE 96852 NEW BEN OUTPATIEN 8 8 POY SIPPI III, T NEW 45 CLINIC RADHA L MINUTES PSC EMERGENCY 46559 [facility] DEPT 8 8 [facility] VISIT INC HIGH SEVERITY& THREAT [facility] - 8 8 [facility] OUTPATIEN INC T PERIODIC 21084 [facility] MCKEMIE PREVENTIV 8 8 NAHUN RAI, E MED EST INTERNAL MCKAYLA F PATIENT MED 40-64YRS [facility]ET[facility] - 8 8 [facility] OUTPATIEN INC T OFFICE 78877 YAYO ZEE OUTPATIEN 8 8 LISBETH Love VISIT 40 MINUTES HOSPITAL [facility] - 8 8 [facility] OUTPATIEN [facility] LIN[facility] - 8 8 [facility] OUTPATIEN [facility] EMERGENCY 50581 [facility] 8 8 [facility]IGH[facility]URGE NT SEVERITY EMERGENCY 48869 [facility] COLMENARES DEPT 8 8 [facility] VISIT HOSPITAL HIGH PROF SERV SEVERITY& THREAT FUNCJ OFFICE 73541 YAYO ZEE OUTPATIEN 8 8 LISBETH Love VISIT 40 MINUTES OFFICE 47327 GAIL NYE, CONSULTAT 8 8 [facility] SERV NEW/ESTAB FOUNDATIO PATIENT 40 MIN OFFICE 78287 MIKE BURGER 8 8 KRISTIAN Love VISIT PSC 15 MINUTES
--- OUTSIDE RECORDS SUMMARY | 2017-09-05 04:26 | External Medical Summary Rpt ---
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 Name Role Phone [facility], [facility] Unavailable Unavailable [...] Unavailable DANIEL, ALEXIS, Unavailable Unavailable DANIEL, ALEXIS [facility] Unavailable Unavailable SERVICE, [facility] Unavailable Unavailable SERVICE, [facility]available Unavailable SERVICE, [facility] BANDAR TEREZA, BANDAR Unavailable [...] Unavailable [facility] Unavailable [place]available [place], [facility] [place] [facility] [place] [facility] [...] CHARLEY BARAHONA MICHELLE, BARAHONA MICHELLE Unavailable Unavailable [facility] Unavailable Unavailable INC, [facility] Unavailable Unavailable HOSPITAL P, [facility] NETTIE GRIFFIN HARVEY, Unavailable Unavailable NETTIE MIDDLETON ALEM, MIDDLETON ALEM Unavailable Unavailable MIDDLETON ALEM, MIDDLETON ALEM Unavailable Unavailable MIDDLETON, MICHAEL A, Unavailable Unavailable MIDDLETON, MICHAEL A [facility], Unavailable Unavailable [facility] MIESHA NIELSON, MIESHA NIELSON Unavailable Unavailable KATYA MITCHELL, KATYA Unavailable Unavailable MITCHELL JAMA NAN, JAMA Unavailable Unavailable NAN JAMA NAN, JAMA Unavailable Unavailable NAN [facility] Unavailable Unavailable MEDICAL G, [facility] Unavailable Unavailable DEPARTMENT, [facility] Un[facility], [facility] [place] [facility] Unavailable Unavailable NAN, ALBA E, Unavailable Unavailable NAN, ALBA E [facility] Unavailable Unavailable LABORATORY, [facility] Unavailable Unavailable [facility], [facility] Unavailable Unavailable [facility], [facility] FREDY DEAN MD, FREDY Unavailable Unavailable JERMAINE DOSS MAJORS G, MAJORS G Unavailable Unavailable VITA HAM, VITA HAM Unavailable Unavailable VITA HAM, VITA HAM Unavailable Unavailable [facility] Unavailable Unavailable SERVICES, [facility] NICK VAN, Unavailable Unavailable ROMERO [...] MOHAMMADZADEH MOHAMMADZADEH HAM, Unavailable Unavailable [facility]OHAMM[facility]ZADEH HAM [facility] Unavailable Unavailable [facility], [facility] O'JENNIFER LISA, O'JENNIFER Unavailable Unavailable LISA YAYO, [...] A MITCH MAT, MITCH MAT Unavailable Unavailable [facility], Unavailable Unavailable [facility] MORRISON W, MORRISON W Unavailable Unavailable [...] NEOPLASM OF [facility] CRANIAL INC NERVES [id number] SPONDYLOSIS 07-05-2017 [place] W/O KRISTIAN MYELOPATH/R ,[facility] ADICULOPATH Y CERV RGN [id number] SPONDYLOSIS 07-05-2017 [place] W/Milton TOWNSEND MYELSAJI/Lashay DOSS,[facility] ADICULOPATH Y LUMB RGN D39058 JAIL 07-05-2017 [place] CURRENT USE KRISTIAN OF OPIATE ,[facility] ANALGESIC Z42796 OTHER LONG 06-15-2017 [facility] TERM [facility] CURRENT INC DRUG THERAPY E119 TYPE 2 06-02-2017 [facility] DIABETES PHYSICIANS MELLITUS GROUP WITHOUT COMPLICATIO NS E785 HYPERLIPIDE 06-02-2017 [facility] LESTER PHYSICIANS UNSPECIFIED GROUP I119 HYPERTENSIV 06-02-2017 [facility] E HEART PHYSICIANS DISEASE GROUP WITHOUT HEART FAILURE I25[address] [facility] [facility] 06-02-2017 [facility] CORONARY [facility] ARTERY W/O INC ANGINA PECTORIS I712 THORACIC 06-02-2017 [facility] AORTIC PHYSICIANS ANEURYSM GROUP WITHOUT RUPTURE I714 ABDOMINAL 06-02-2017 [facility] AORTIC PHYSICIANS ANEURYSM GROUP WITHOUT RUPTURE R079 CHEST PAIN 06-02-2017 [facility] UNSPECIFIED PHYSICIANS GROUP R9439 ABNORMAL 05-26-2017 [facility] RESULT OTH PHYSICIANS CARDIOVASCU GROUP LR FUNCTION STUDY M76308 ENCOUNTER 05-26-2017 [facility] FOR PHYSICIANS PREPROCEDUR GROUP AL CARIOVASCUL AR EXAM I10 ESSENTIAL 05-13-2017 [facility] PRIMARY PHYSICIANS HYPERTENSIO GROUP N R9431 ABNORMAL 05-13-2017 [facility] ELECTROCARD PHYSICIANS IOGRAM GROUP S41675 ENCOUNTER 05-13-2017 [facility] FOR OTHER [facility] PREPROCEDUR INC AL EXAMINATION R1011 RIGHT UPPER 05-03-2017 [facility] R935 ABN FIND DX 05-03-2017 [facility] IMAG OTH [facility] ABD REGIONS INC RETROPERITO NEUM D369 BENIGN 04-19-2017 [facility] NEOPLASM PHYSICIANS UNSPECIFIED GROUP SITE G78505 PERSONAL 04-19-2017 [facility] HISTORY OF PHYSICIANS COLONIC GROUP POLYPS K210 GASTRO-ESOP 04-09-2017 [facility] JENSEN PHYSICIANS, REFLUX PLLC DISEASE W/ ESOPHAGITIS K828 OTHER 04-09-2017 [facility] SPECIFIED PHYSICIANS, DISEASES OF PLLC GALLBLADDER K829 DISEASE OF 04-09-2017 [facility]ICAL IMAGING ASS UNSPECIFIED R109 UNSPECIFIED 04-09-2017 [place] ABDOMINAL MEDICAL PAIN IMAGING ASS K52402 PERSONAL 04-09-2017 [facility] DEPENDENCE N411 CHRONIC 04-05-2017 [facility] PROSTATITIS [facility] P N529 MALE 04-05-2017 [facility] P UNSPECIFIED K219 GASTRO-ESOP 04-02-2017 [facility] H REFLUX [facility] DISEASE INC WITHOUT ESOPHAGITIS M5116 INTERVERTEB 04-02-2017 [facility] GLORIA PHYSICIANS, D/O PLLC W/RADICULOP ATHY LUMB RGN R1031 RIGHT LOWER 04-02-2017 [facility] ASS M5382 OTHER 03-23-2017 [place] SPECIFIED CHIROPRACTI DORSOPATHIE C CENTE S CERVICAL REGION M5386 OTHER 03-23-2017 [place] SPECIFIED CHIROPRACTI DORSOPATHIE C CENTE S LUMBAR REGION Y98910 OTHER 03-04-2017 [place] CERVICAL JUANI TOWNSEND MD,PSC MID-CERV REG UNS LEVEL K5900 CONSTIPATIO 02-13-2017 [place] N MEDICAL UNSPECIFIED IMAGING ASS R112 NAUSEA WITH 02-13-2017 [place] VOMITING MEDICAL UNSPECIFIED IMAGING ASS J449 CHRONIC 01-13-2017 [facility] OBSTRUCTIVE [facility] P DISEASE UNS R0600 DYSPNEA 01-13-2017 [place] UNSPECIFIED MEDICAL IMAGING ASS E039 HYPOTHYROID 11-11-2016 [facility] ISM [facility] UNSPECIFIED INC N401 BENIGN 10-26-2016 [facility] PROSTATIC [facility] P LW URINARY TRACT SX R350 FREQUENCY 10-26-2016 [facility] P K35292 UNSPECIFIED 10-11-2016 [facility] ALEM BLEPHARITIS LEFT LOWER EYELID J9811 ATELECTASIS 09-01-2016 [facility] R1013 EPIGASTRIC 09-01-2016 [facility] P R7989 OTHER SPEC 09-01-2016 [place] ABNORMAL MEDICAL FINDINGS IMAGING ASS BLOOD CHEMISTRY M791 MYALGIA 08-25-2016 [place] TOWNSEND MD,PSC M5090 CERVICAL 08-16-2016 [facility] DISORDER INC UNS UNS CERVICAL REGION U33049 PAIN IN 08-10-2016 [place] RIGHT MEDICAL SHOULDER IMAGING ASS M5032 OTH CERV 08-10-2016 [place] DISC MEDICAL DEGENERATIO IMAGING ASS N MID-CERVICA L REGION M542 CERVICALGIA 08-10-2016 [facility] R51 HEADACHE 08-10-2016 [facility] [id number] CONTUSION 08-10-2016 [facility] UNS PART PHYSICIANS, HEAD PLLC INITIAL ENCOUNTER K3331IW UNSPECIFIED 08-10-2016 [place] INJURY OF MEDICAL HEAD IMAGING ASS INITIAL ENCOUNTER T823DQN STRAIN 08-10-2016 [facility] MUSCLE FASC PHYSICIANS, & TENDON PLLC NECK LEVL INIT ENC Q276QHL UNSPECIFIED 08-10-2016 [place] INJURY OF MEDICAL NECK IMAGING ASS INITIAL ENCOUNTER [id number] UNSPECIFIED 08-10-2016 [facility] SPRAIN RT PHYSICIANS, SHOULDER PLLC JOINT INITIAL ENC I8708FA UNS INJURY 08-10-2016 [place] RT SHOULDER MEDICAL UPPER ARM IMAGING ASS INITIAL ENCNTR D126 BENIGN 07-29-2016 [facility] NEOPLASM OF [facility] COLON UNSPECIFIED K635 POLYP OF 07-29-2016 [facility] COLON PHYSICIANS GROUP Z09 ENC F/U 07-29-2016 COMMUNITY EXAM AFTR ANESTH OF CMPL TX OTH THE BLUE THAN MALIG NEOPLSM Z1211 ENCOUNTER 07-29-2016 [facility] SCREENING PHYSICIANS MALIGNANT GROUP NEOPLASM OF COLON M4642 DISCITIS 05-14-2016 [facility] UNSPECIFIED PHYSICIANS CERVICAL GROUP REGION G8929 OTHER 04-23-2016 [facility] CHRONIC PHYSICIANS PAIN GROUP J40 BRONCHITIS 04-07-2016 [facility] NOT PHYSICIANS SPECIFIED GROUP ACUTE OR CHRONIC M5010 CERVICAL 03-29-2016 BOYDAISHWARYA PATTERSONX, DISC D/O , PSC W/RADICULOP ATHY UNS CERV RGN B351 TINEA 03-25-2016 PRO[facility] UNGUIUM PODIATRY E1151 TYPE 2 DM 03-25-2016 [facility] W/DIAB PODIATRY PERIPH ANGIOPATHY W/O GANGRENE M2570 OSTEOPHYTE 03-25-2016 [facility] UNSPECIFIED PODIATRY JOINT W06280 PAIN IN 03-25-2016 [facility] LEFT TOES PODIATRY J0110 ACUTE 03-24-2016 [facility] FRONTAL PHYSICIANS SINUSITIS GROUP UNSPECIFIED M97153T UNS OPEN 03-24-2016 [facility] WOUND UNS PHYSICIANS TOES GROUP W/DAMAGE NAIL INITIAL M5030 OT 02-23-2016 [facility] CERVICAL [facility] DISC INC DEGENERATIO N UNS CERV REGION M5412 RADICULOPAT 02-23-2016 BOYD DEAN HY CERVICAL , PSC REGION R200 ANESTHESIA 01-23-2016 [place] OF SKIN MEDICAL IMAGING ASS Z8603 PERSONAL 01-23-2016 [place] HISTORY MEDICAL NEOPLASM OF IMAGING ASS UNCERTAIN BEHAVIOR 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 V30066 UNSPECIFIED 01-14-2016 [place] [facility] PTOSIS OF SERV RIGHT FOUNDATION EYELID H9191 UNSPECIFIED 01-14-2016 [facility] HEARING SERV LOSS RIGHT FOUNDATION EAR T65298 FACIAL 01-14-2016 [place] [facility] WEAKNESS SERV FOUNDATION R9089 OT 01-14-2016 [place] [facility] ABNORMAL SERV FIND ON DX FOUNDATION IMAGING CNTRL NERV SYS H41953 PERSONAL 01-14-2016 [place] MEDICAL HISTORY 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 UNSPECIFIED Z56218 CONTACT 12-26-2015 [facility] ANG BLEPHAROCON JUNCTIVITIS RIGHT EYE M5136 OT 12-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 BURT MD, PSC RAL DISC DEGEN LUMBAR REGION R110 NAUSEA 12-03-2015 [facility] R140 ABDOMINAL 11-26-2015 [place] DISTENSION MEDICAL GASEOUS IMAGING ASS B370 CANDIDAL 11-20-2015 [facility] STOMATITIS PHYSICIANS, [facility] E1121 TYPE 2 11-20-2015 [facility] DIABETES [facility] MELLITUS INC W/DIABETIC NEPHROPATHY J329 CHRONIC 11-13-2015 [facility] SINUSITIS PHYSICIANS UNSPECIFIED GROUP H5203 HYPERMETROP 09-08-2015 [facility] ALEM IA BILATERAL M797 FIBROMYALGI 08-29-2015 [facility] A [facility] INC 70286 DEGEN 07-28-2015 BOYD BUX, LUMBAR/LUMB , PSC OSACRAL INTERVERTEB RAL DISC 7244 THORACIC/GINO 07-28-2015 GABBY BURT MD, PSC NEURITIS/RA DICULITIS UNSPEC 7291 UNSPECIFIED 07-28-2015 BOYD DEAN, MYALGIA , PSC AND MYOSITIS V7109 OBSERVATION 07-23-2015 COMPREHEND OF OTHER INC SUSPECTED MENTAL CONDITION 57442 UNSPECIFIED 06-20-2015 [facility] ARTHROPATHY INC OTHER SPECIFIED SITES 6011 CHRONIC 06-03-2015 [facility] PROSTATITIS [facility] P 99155 DEGEN 05-06-2015 [place] THORACIC/TH MEDICAL ORACOLUMBAR IMAGING ASS INTERVERTEB RAL DISC 7231 CERVICALGIA 05-06-2015 [facility] 7245 UNSPECIFIED 05-06-2015 [place] BACKACHE MEDICAL IMAGING ASS 7840 HEADACHE 05-06-2015 [facility] 8470 NECK SPRAIN 05-06-2015 [facility] AND STRAIN PHYSICIANS, [facility] 81179 HEAD 05-06-2015 [facility] INJURY, PHYSICIANS, UNSPECIFIED PLLC 64347 HYPERTROPHY 04-29-2015 [facility] W/UR [facility]ST [facility]OSP[facility] P OTH LUTS 70217 URINARY 04-29-2015 [facility] P 7224 DEGENERATIO 04-28-2015 MADAR BUX N OF CERVICAL INTERVERTEB RAL DISC 7234 BRACHIAL 04-28-2015 FREDY DEAN [place] 90417 DIAB W/O 03-04-2015 [facility] COMP TYPE LAR II/UNS NOT CONSULTANTS STATED O UNCNTRL 2724 OTHER AND 03-04-2015 [facility] UNSPECIFIED [facility] INC HYPERLIPIDE LESTER 4019 UNSPECIFIED 03-04-2015 [facility] ESSENTIAL [facility] HYPERTENSIO INC N 45964 UNSPEC HTN 03-04-2015 [facility] HEART LAR DISEASE CONSULTANTS WITHOUT O HEART FAIL 07703 COR 03-04-2015 [facility] ATHEROSLERO [facility] UNSPEC INC TYPE VESSEL [facility] T 35328 OTHER 02-26-2015 [place] DYSPNEA AND MEDICAL [place]AG[place] [address] CHEST PAIN 02-26-2015 [place] MEDICAL UNSPECIFIED SERV FOUNDATION 01170 OTHER CHEST 02-26-2015 [facility] PAIN PHYSICIANS GROUP 2449 UNSPECIFIED 01-09-2015 [facility] [place] [address] DISPLCMT 01-09-2015 [facility] LUMBAR PHYSICIANS INTERVERT GROUP DISC W/O MYELOPATHY 20979 OTHER 01-09-2015 [facility] MALAISE AND PHYSICIANS FATIGUE GROUP 33558 DIAB W/O 12-28-2014 [facility] MENTION [facility] COMP TYPE INC II/UNS TYPE UNCNTRL 2768 HYPOPOTASSE 12-28-2014 [facility] P 3319 UNSPECIFIED 12-28-2014 [place] CEREBRAL MEDICAL DEGENERATIO IMAGING ASS N 7820 DISTURBANCE 12-28-2014 [facility] OF SKIN [facility] P 82361 PRECORDIAL 12-28-2014 [facility] PAIN AMBULANCE SERVICE 55780 VOMITING 12-28-2014 [facility] SERVICE V140 PERSONAL 12-28-2014 [facility] HISTORY OF [facility] ALLERGY TO [facility] P PENICILLIN 4414 ABDOMINAL 11-14-2014 [facility] HEALTH WITHOUT MEDICAL G MENTION OF RUPTURE 490 BRONCHITIS 10-30-2014 [facility] NOT PHYSICIANS SPECIFIED GROUP ACUTE OR CHRONIC 99389 UNSPECIFIED 05-07-2014 [facility] ART ORCHITIS AND EPIDIDYMITI S 36753 OTHER 04-16-2014 [facility] CHRONIC [facility] PAIN INC 496 CHRONIC 04-16-2014 [facility] AIRWAY [facility] OBSTRUCTION INC NEC 7242 LUMBAGO 04-16-2014 JAIDEN CAMILLA V1582 PERS HX 04-16-2014 [facility] TOBACCO USE [facility] PRESENTING INC HAZARDS HEALTH V5869 LONG-TERM 04-16-2014 [facility] (CURRENT) [facility] USE OF INC OTHER MEDICATIONS 32835 OTHER 04-02-2014 [facility] CONVULSIONS [facility] INC 8472 LUMBAR 04-02-2014 WE[facility] III SPRAIN AND AREN STRAIN E9179 OTHER 04-02-2014 [facility] III STRIKING AREN AGAINST W/WO SUBSEQUENT FALL 4139 OTHER AND 03-29-2014 [facility] UNSPECIFIED [facility] ANGINA INC PECTORIS 22049 ING ANDREW 03-29-2014 [facility] W/O MENTION BUBBA OBST/GANGRE N UNILAT/UNSP EC 5738 OTHER 03-29-2014 [facility] SPECIFIED BUBBA DISORDERS OF LIVER 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 35957 ABDOMINAL 03-29-2014 [facility] III PAIN OTHER AREN SPECIFIED SITE 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 16045 ACUTE 03-03-2014 [facility] GASTRITIS [facility] WITHOUT INC MENTION OF HEMORRHAGE 14535 UNS 03-03-2014 WARE BRO GASTRITIS&G ASTRODUODIT IS W/O MENTION HEMORR 7213 LUMBOSACRAL 01-17-2014 VITA TREVINO SPONDYLOSIS WITHOUT MYELOPATHY 7831 ABNORMAL 10-13-2013 [facility] WEIGHT GAIN [facility] INC 72373 DIARRHEA 10-13-2013 [facility] HOSP INC V0481 NEED 08-23-2013 NATHALY RAI PROPHYLACTI AREN C VACCINATION &INOCULATIO N FLU 3510 BELLS PALSY 07-24-2013 [facility] 7218 OTHER 07-24-2013 [facility] DISORDERS OF SPINE 04262 OTH 07-18-2013 [facility] MIGRAINE [facility] W/O INTRACT INC W/O STATUS MIGRAINOSUS 44480 OTHER 06-18-2013 [facility] CONDITIONS BUBBA OF BRAIN 7220 DISPLCMT 06-18-2013 [facility] CERV BUBBA INTERVERT DISC WITHOUT MYELOPATHY 7249 OTHER 06-18-2013 [facility] UNSPECIFIED BUBBA BACK DISORDER V571 OTHER 05-28-2013 [facility] PHYSICAL [facility] THERAPY INC 73764 UNSPECIFIED 03-06-2013 [facility] SHOULDER REGION 39187 PAIN IN 03-06-2013 [facility] EMERGENCY SHOULDER SERVICES REGION 7295 PAIN IN 03-06-2013 [facility] SOFT BUBBA TISSUES OF LIMB 88774 OTHER 03-06-2013 [facility] NONSPECIFIC BUBBA ABNORMAL FINDING OF LUNG FIELD 70970 MICROSCOPIC 01-26-2013 NATHALY RAI HEMATURIA AREN 8460 SPRAIN AND 01-26-2013 NATHALY RAI STRAIN OF AREN LUMBOSACRAL 25880 OTHER 01-25-2013 [facility] DISEASES OF BUBBA SPLEEN 4411 THORACIC 01-25-2013 [facility] ANEURYSM, BUBBA RUPTURED 5589 OTH&UNSPEC 01-25-2013 [facility] NONINFECTIO [facility] P GASTROENTER ITIS&COLITI S 44548 HYPERTROPHY 01-25-2013 [facility] PROSTATE BUBBA W/O UR OBST & OTH LUTS 6019 UNSPECIFIED 12-30-2012 [facility] HOSP PROSTATITIS INC 7823 EDEMA 12-30-2012 [facility] HOSP INC 52555 UNSPECIFIED 12-29-2012 NATHALY RAI AREN CONSTIPATIO N 63402 ABDOMINAL 12-15-2012 [facility] P 4400 ATHEROSCLER 12-14-2012 [facility] OSIS OF BUBBA AORTA 36566 ABDOMINAL 12-14-2012 [facility] CHARLEY PAIN, UNSPECIFIED SITE 30211 HEMATURIA 08-29-2012 [place] UNSPECIFIED MEDICAL IMAGING ASS 88663 OTHER 08-21-2012 [place] SPECIFIED MEDICAL DISORDERS IMAGING ASS OF BLADDER 77688 ABDOMINAL 08-08-2012 [facility] PAIN RIGHT BUBBA LOWER QUADRANT 4419 AORTIC 08-01-2012 JAMA ANTONY ANEUR UNSPEC SITE WITHOUT MENTION RUPTURE 7881 DYSURIA 07-24-2012 JAMA ANTONY 60788 PRIMARY 06-14-2012 NICK LACRIMAL JAM ATROPHY 80043 VITREOUS 06-14-2012 NICK DEGENERATIO JAM N 52426 UNSPECIFIED 04-04-2012 KANE FERRARA BLEPHAROCON JUNCTIVITIS 36557 ESOPHAGEAL 04-04-2012 [facility] REFLUX 5533 DIAPHRAGMAT 04-04-2012 [facility] ANDREW W/O MENTION OBSTRUCTION /GANGREN 24855 OTHER LATE 03-25-2012 [facility] EFFECTS OF CEREBROVASC ULAR DISEASE V711 OBSERVATION 03-24-2012 [place] FOR MEDICAL SUSPECTED IMAGING ASS MALIGNANT NEOPLASM 436 ACUTE BUT 02-28-2012 NATHALY RAI ILL-DEFINED AREN CEREBROVASC ULAR DISEASE 90705 UNS 12-22-2011 [facility] MALIGNANT NEOPLASM EYELID INCLUDING CANTHUS 04775 BASAL CELL 12-22-2011 [place] [facility] ANESTHESIA OF EYELID ASSOC L INCLUDING CANTHUS 02162 OTHER 12-22-2011 [facility] CHRONIC DERMATITIS DUE TO SOLAR RADIATION 87636 OTHER 11-28-2011 [facility] SPECIFIED BUBBA ACQUIRED DEFORMITY OF HEAD 4660 ACUTE 10-11-2011 NATHALY RAI BRONCHITIS AREN 7862 COUGH 10-11-2011 [facility] 2392 NEOPLASMS 10-01-2011 [facility] UNSPEC NATURE BONE SOFT TISSUE&SKIN 7226 DEGENERATIO 09-21-2011 [facility] N [facility] INTERVERTEB INTERNAL RAL DISC MED SITE UNSPEC 18176 BLEPHARITIS 09-07-2011 [facility] LB , UNSPECIFIED 3670 HYPERMETROP 08-20-2011 ISHA IA VISION 92454 ABDOMINAL 07-27-2011 NEW PAIN RIGHT [facility] PSC QUADRANT 7210 CERVICAL 07-22-2011 NEW SPONDYLOSIS [facility] WITHOUT CLINIC PSC MYELOPATHY 2250 BENIGN 06-15-2011 NEW NEOPLASM OF [facility] BRAIN [facility]INIC PSC 98066 SHORTNESS 06-03-2011 [place] OF [facility] MEDICAL IMAGING ASS 1101 DERMATOPHYT 05-18-2011 [facility] OSIS OF [place] NAIL INTERNAL MED 7822 LOCALIZED 05-18-2011 [facility] SUPERFICIAL [facility] SWELLING INTERNAL MASS OR MED LUMP 7906 OTHER 04-13-2011 [facility] ABNORMAL [facility] BLOOD INTERNAL CHEMISTRY MED 81126 DYSPHAGIA 02-25-2011 [facility] UNSPECIFIED [facility] INC 7871 HEARTBURN 02-16-2011 C CELESTINO ADAME MD PSC 83921 ABDOMINAL 02-16-2011 C CELESTINO KENYON, DEEP EPIGASTRIC PSC 1919 MALIGNANT 02-03-2011 [facility] NEOPLASM OF [facility] BRAIN INTERNAL UNSPECIFIED MED SITE 83292 DYSPHAGIA 02-03-2011 [facility] DUE TO [facility] CEREBROVASC INTERNAL ULAR MED DISEASE 1104 DERMATOPHYT 12-14-2010 [facility] OSIS OF [facility] FOOT INTERNAL MED 9953 ALLERGY 12-12-2010 [facility] UNSPECIFIED [facility] NOT INTERNAL ELSEWHERE MED CLASSIFIED 7821 RASH AND 12-09-2010 [facility] OTHER [facility] NONSPECIFIC INTERNAL SKIN MED ERUPTION 7079 CHRONIC 12-07-2010 [facility] ULCER OF [facility] UNSPECIFIED INTERNAL SITE MEDI 3688 OTHER 09-21-2010 [place] SPECIFIED MEDICAL VISUAL IMAGING ASS DISTURBANCE S 04997 MUSCLE 09-21-2010 [facility] WEAKNESS [facility] (GENERALIZE INC D) 71921 FACIAL 09-21-2010 [facility] WEAKNESS [facility] INC 80419 NAUSEA WITH 07-27-2010 [facility] AMBULANCE SERVICE 10927 OTHER AND 07-25-2010 [facility] UNSPECIFIED [facility] INTERNAL CONJUNCTIVI MED TIS 5409 ACUTE 05-05-2010 [facility] WITHOUT HOSPITAL MENTION PROF SERV PERITONITIS 541 APPENDICITI 05-05-2010 [place] S, MEDICAL UNQUALIFIED IMAGING ASSOCIATES 7804 DIZZINESS 05-05-2010 [place] AND MEDICAL GIDDINESS IMAGING ASSOCIATES V4589 OTHER 05-05-2010 [facility] OTHER PROF SERV 85646 PAINFUL 11-05-2009 [facility] RESPIRATION [facility] INTERNAL MED 54423 OTHER SPEC 09-03-2009 [place] [facility] GASTRITIS SERV WITHOUT FOUNDATIO MENTION HEMORRHAGE 82725 DUODENITIS 09-03-2009 [facility] WITHOUT [facility] MENTION OF INC HEMORRHAGE 75095 NAUSEA 09-03-2009 [facility] & ALONE CYTOLOGY LAB 86301 UNSPECIFIED 05-07-2009 [facility] TIS PROF SERV 4280 CONGESTIVE 04-11-2009 [facility] FAILURE INTERNAL UNSPECIFIED MED 61735 OTHER 01-13-2009 [facility] INTERNAL MED 4439 UNSPECIFIED 12-20-2008 [facility] VASCULAR INC DISEASE 18454 ONYCHIA AND 12-16-2008 [facility] PARONYCHIA [place] TOE INTERNAL MED 2396 NEOPLASM OF 11-27-2008 [facility] ANDREA UNSPECIFIED NATURE OF BRAIN 3384 CHRONIC 11-13-2008 [facility] PAIN VALLEY SYNDROME INTERNAL MED 4659 ACUTE URIS 10-30-2008 [facility] OF VALLEY UNSPECIFIED INTERNAL SITE MED 62204 ABDOMINAL 07-17-2008 [facility] PAIN, LEFT CLINIC UPPER LABORATORY QUADRANT 16562 DISORDER OF 06-25-2008 [facility] CARTILAGE INC UNSPECIFIED 3674 PRESBYOPIA 04-11-2008 [facility] 7802 SYNCOPE AND 03-29-2008 [facility] 55838 TRANSIENT 03-28-2008 [facility] SERVICE AWARENESS 4011 ESSENTIAL 03-14-2008 [facility], B[facility]IGN [facility] PSC 65181 ANNIE HTN 02-27-2008 [facility] DISE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 2409 GOITER, 02-20-2008 [facility] 7931 NONSPEC 02-20-2008 [facility] EX[facility] IMAGING BODY [...] 80 4- 9- 00 00 SI ve OK 21 20 20 49 DE DE 61 17 17 91 0 24 PH 40 AR MA MG CY TA OF BL CY ET NT HI AN A IN C ME 23 08 30 30 00 EA Ac TF 15 -2 -[address] ti OR 50 4- 9- 00 00 SI ve OK 10 20 20 49 DE N 21 17 17 91 HC 0 25 PH L AR 50 MA 0 CY MG OF TA CY BL NT ET HI AN A IN C LE 08 30 30 00 EA Ac VO [...] AN A IN C LO 16 08 30 30 00 EA Ac SA 71 -1 -[address] ti RT 40 4- 5- 00 00 SI ve AN 22 20 20 49 DE -H [address] 1 86 PH Z AR 10 MA 0- CY 12 .5 OF CY MG NT HI TA AN B A IN C HY 00 08 12 [address] 40 -1 -[address] ti OC 60 0- 5- 00 00 SI ve OD 12 20 20 0 49 DE ON 50 17 17 74 -A 5 49 PH CE AR TA MA OK CY NO PH OF N CY 10 [...] HI BL AN ET A IN C ME 23 08 30 30 00 EA Ac TF 15 -2 -[address] ti OR 50 4- 5- 00 00 SI ve OK 10 20 20 49 DE N 21 17 17 54 HC 0 03 PH L AR 50 MA 0 CY MG OF TA CY BL NT ET HI AN A IN C FU 00 07 08 30 30 00 EA Ac RO 37 -2 -[address] ti SE 80 4- 5- 00 00 SI ve OK 21 20 20 49 DE DE 61 17 17 54 0 05 PH 40 AR MA MG CY TA OF BL CY ET NT HI AN A IN C CL 00 07 08 [...] ST ti OP 20 4- 5- 00 SI ve RA 56 20 20 49 DE ZO 09 17 17 54 LE 0 02 PH AR SO MA D CY DR OF 40 CY NT MG HI AN TA A B IN C LE 00 07 08 30 [...] 5 66 PH CE AR TA MA OK CY NO PH OF N CY 10 [...] 50 2- 8- 00 00 SI ve OK 10 20 20 49 DE N 21 [...] 80 6- 1- 00 00 SI ve OK 21 20 20 49 DE DE 61 [...] 5 80 PH CE AR TA MA OK CY NO PH OF N CY 10 [...] 50 2- 3- 00 00 SI ve OK 10 20 20 48 DE N 21 17 17 84 HC 0 08 PH L AR 50 MA 0 CY MG OF TA CY BL NT ET HI AN A IN C LO 16 04 02 30 30 00 EA Ac SA [...] ET A IN C ON 65 05 30 8 00 EA Ac DA 86 -1 -[address] ti NS 20 4- 6- 00 00 SI ve ET 18 20 20 48 DE RO 73 17 17 74 N 0 59 PH HC AR L MA 4 CY MG OF TA CY BL NT ET HI AN A IN C PA 65 00 EA Ac NT 86 -1 -[address] ti OP 20 4- 6- 00 00 SI ve RA 56 20 20 48 DE ZO 09 17 17 74 LE 0 60 PH AR SO MA D CY DR OF 40 CY NT MG HI AN TA A B IN C HY [address] 40 -1 -[address] ti OC 60 2- 6- 00 00 SI ve OD 12 20 20 0 48 DE ON 50 17 17 72 -A 5 38 PH CE AR TA MA OK CY NO PH OF N CY 10 NT -3 HI 25 AN A IN C FU 00 04 02 30 30 00 EA Ac RO 37 -0 -[address] ti SE 80 9- 9- 00 00 SI ve OK 21 20 20 48 DE DE 61 [...] OR 31 1- 6- 00 SI ve OK 04 20 20 48 DE N 80 [...] 40 0- 2- 00 00 SI ve OK 62 20 20 48 DE DE 51 [...] 5 38 PH CE AR TA MA OK CY NO PH OF N CY 10 NT -3 HI 25 AN A IN C ES 65 03 04 30 30 00 EA Ac CI 86 -2 -[address] ti TA 20 1- 1- 00 00 SI ve LO 37 20 20 48 DE OH 40 17 17 05 AM 1 71 [...] 31 0- 1- 00 00 SI ve OK 04 20 20 48 DE N 80 [...] 40 9- 4- 00 00 SI ve OK 62 20 20 47 DE DE 51 [...] 5 33 PH CE AR TA MA OK CY NO PH OF N CY 10 [...] 50 7- 4- 00 00 SI ve OK 10 20 20 47 DE N 21 17 17 66 HC 0 02 PH L AR 50 MA 0 CY MG OF TA CY BL NT ET HI AN A IN C ES 65 02 03 30 30 00 EA Ac CI 86 -1 -[address] ti TA 20 7- 4- 00 SI ve LO 37 20 20 47 DE OH 40 17 17 66 AM 1 03 [...] 5 63 PH CE AR TA MA OK CY NO PH OF N CY 10 [...] 40 0- 3- 00 00 SI ve OK 62 20 20 47 DE DE 51 [...] 50 6- 7- 00 00 SI ve OK 10 20 20 47 DE N 21 [...] 5 53 PH CE AR TA MA OK CY NO PH OF N CY 10 [...] 40 6- 7- 00 00 SI ve OK 62 20 20 47 DE DE 51 [...] 50 5- 0- 00 00 SI ve OK 10 20 20 46 DE N 21 [...] 5 68 PH CE AR TA MA OK CY NO PH OF N CY 10 [...] RT 40 9- 9- 00 SI 16 OK ve AN 22 20 20 0 DE [...] PE 40 4- 4- 00 SI 87 OK ve NT 66 20 20 0 DE E IN 20 13 13 JR 1 PH 30 AR WI 0 MA LL MG CY IA M CA OF F PS UL CY E NT HI AN A SI 16 11 11 0 30 30 EA 33 MC Ac MV 71 -1 -[address] 61 KE ti 40 2- 2- 00 SI 39 OK ve TA 68 20 20 0 DE E TI 40 13 13 JR N 3 PH 40 AR WI MA LL MG CY IA M TA OF F BL ET CY NT HI AN A LO 16 06 11 4 15 15 EA 31 MC Ac SA 71 -1 -[address] 99 KE ti RT 40 0- 2- 00 SI 99 OK ve AN 22 20 20 0 DE [...] RA 50 4- 1- 00 SI 09 OK ve ZO 13 20 20 0 DE E LE 63 13 [address] AR WI MA LL 40 CY IA M MG OF F CA CY PS NT UL HI E AN A ME 00 08 11 3 30 30 EA 32 Ac TF 09 -0 -[address] 52 KE ti OR 31 2- 9- 00 SI 59 OK ve OK 04 20 20 0 DE E N 81 13 13 JR HC 0 PH L AR WI 50 MA LL 0 CY IA MG M OF F TA BL CY ET NT HI AN A FU 63 08 11 2 30 30 EA 32 Ac RO 30 -2 -[address] 80 KE ti SE 40 9- 5- 00 SI 32 OK ve OK 62 20 20 0 DE E DE 51 13 13 JR 0 PH 40 AR [place] MA LL MG CY IA M TA OF F BL ET CY NT HI AN A LE 00 07 11 3 30 30 EA 32 Ac VO 37 -2 -[address] 46 KE ti TH 81 6- 2- 00 SI 48 OK ve YR 80 20 20 0 DE [...] AZ 83 4- 2- 00 SI 89 OK ve EP 00 20 20 0 DE E AM 45 13 13 JR 1 0 PH AR WI MG MA LL CY IA TA M BL OF F ET CY NT HI AN A LO 16 06 10 4 15 15 EA 31 MC Ac SA 71 -1 -[address] 99 KE ti RT 40 0- 5- 00 SI 99 OK ve AN 22 20 20 0 DE [...] AZ 83 4- 4- 00 SI 89 OK ve EP 00 20 20 0 DE E AM 45 13 13 JR 1 0 PH AR WI MG MA LL CY IA TA M BL OF F ET CY NT HI AN A SI 16 08 10 2 30 30 EA 32 MC Ac MV 71 -0 -[address] 57 KE ti 40 7- 2- 00 SI 30 OK ve TA 68 20 20 0 DE E TI 40 13 13 JR N 3 PH 40 AR [place] MA LL MG CY IA M TA OF F BL ET CY NT HI AN A OM 62 09 10 2 30 30 EA 32 MC Ac EP 17 -0 -[address] 86 KE ti RA 50 4- 9- 00 SI 09 OK ve ZO 13 20 20 0 DE E LE 63 13 [address] AR [place] MA LL 40 CY IA M MG OF F CA CY PS NT UL HI E AN A ME 00 08 10 3 30 30 EA 32 MC Ac TF 09 -0 -[address] 52 KE ti OR 31 2- 7- 00 SI 59 OK ve OK 04 20 20 0 DE E N 81 13 13 JR HC 0 PH L AR WI 50 MA LL 0 CY IA MG M OF F TA BL CY ET NT HI AN A FU 63 08 10 2 30 30 EA 32 MC Ac RO 30 -2 -[address] 80 KE ti SE 40 9- 3- 00 SI 32 OK ve OK 62 20 20 0 DE E DE 51 13 13 JR 0 PH 40 AR [place] MA LL MG CY IA M TA OF F BL ET CY NT HI AN A EX 00 08 10 2 30 30 EA 23 MC Ac FO 07 -1 -[address] 73 KE ti RG 80 9- 9- 00 SI 45 OK ve E 48 20 20 DE E 10 91 11 11 JR -1 5 PH 60 AR [place] MA LL MG CY IA M TA OF F BL ET CY NT HI AN A ME 00 08 10 1 30 30 EA 23 BE Ac TF 09 -2 -[address] 77 SS ti OR 31 3- 8- 00 SI 83 ON ve OK 04 20 20 DE N 81 11 [...] AC 40 4- 4- 00 SI 01 OK ve ET 70 20 20 DE E [...] UM 65 6- 0- 00 SI 46 OK ve 04 [address] 03 11 11 JR 1 PH 40 AR [place] MA LL MG CY IA M CA OF F PS UL CY E NT HI AN A FU 63 09 10 3 30 30 EA 24 MC Ac RO 30 -1 -[address] 04 KE ti SE 40 2- 0- 00 SI 35 OK ve OK 62 20 20 DE E DE 51 [...] ti 10 7- 7- 00 SI 81 OK ve 54 20 20 0 DE E [...] RG 80 9- 4- 00 SI 45 OK ve E 48 20 20 DE E 10 91 11 11 JR -1 5 PH 60 AR [place] MA LL MG CY IA M TA OF F BL ET CY NT HI AN A SI 16 05 09 3 30 30 EA 22 MC Ac MV 71 -3 -[address] 74 KE ti 40 1- 4- 00 SI 35 OK ve TA 68 20 20 DE E [...] 2- 2- 00 SI 16 ON ve OK 62 20 20 DE DE 51 11 [...] ti 10 7- 7- 00 SI 45 OK ve 54 20 20 0 DE E 00 11 11 JR 1 PH AR WI MA LL CY IA M OF F CY NT HI AN A CL 00 09 09 0 90 30 EA 23 MC Ac ON 09 -0 -[address] 98 KE ti AZ 30 6- 6- 00 SI 47 OK ve EP 83 20 20 DE E AM 20 11 11 JR 1 PH 0. [place] 5 MA LL MG CY IA M TA OF F BL ET CY NT HI AN A NE 00 08 08 2 30 30 EA 23 MC Ac XI 18 -3 -[address] 89 KE ti UM 65 1- 1- 00 SI 75 OK ve 04 [address] [...] 3- 3- 00 SI 83 ON ve OK 04 20 20 DE N 81 11 [...] RG 80 9- 9- 00 SI 45 OK ve E 48 20 20 DE E [...] 6- 6- 00 SI 13 ON ve OK 62 20 20 DE DE [address] 0 PH EP 40 AR HE MA N MG CY A TA OF BL ET CY NT HI AN A SI 16 05 08 3 30 30 EA 22 MC Ac MV 71 -3 -[address] 74 KE ti 40 1- 6- 00 SI 35 OK ve TA 68 20 20 DE E TI 40 11 11 JR N 3 PH 40 AR [place] MA LL MG CY IA M TA OF F BL ET CY NT HI AN A CL 00 08 08 0 90 30 EA 23 MC Ac ON 09 -0 -[address] 54 KE ti AZ 30 5- 5- 00 SI 97 OK ve EP 83 20 20 DE E AM 20 11 11 JR 1 PH 0. [place] 5 MA LL MG CY IA M TA OF F BL ET CY NT HI AN A ZE 66 06 08 3 30 30 EA 23 MC Ac TI 58 -2 -[address] 05 KE ti A 20 3- 2- 00 SI 21 OK ve 10 41 20 20 DE E 43 11 11 JR MG 1 PH AR WI TA MA LL BL CY IA ET M OF F CY NT HI AN A NE 00 05 08 2 30 30 EA 22 MC Ac XI 18 -2 -[address] 69 KE ti UM 65 5- 2- 00 SI 36 OK ve 04 [address] [...] RG 80 1- 6- 00 SI 11 OK ve E 48 20 20 DE E 10 91 11 11 JR -1 5 PH 60 AR [place] MA LL MG CY IA M TA OF F BL ET CY NT HI AN A ME 00 05 07 1 60 30 EA 22 BE Ac TF 09 -1 -[address] 56 SS ti OR 31 7- 1- 00 SI 55 ON ve OK 04 20 20 DE N 81 11 [...] AZ 30 5- 5- 00 SI 75 OK ve EP 83 20 20 DE E AM 20 11 11 JR 1 PH 0. [place] 5 MA LL MG CY IA M TA OF F BL ET CY NT HI AN A FU 63 05 07 2 30 30 EA 22 BE Ac RO 30 -0 -[address] 36 SS ti SE 40 3- 4- 00 SI 75 ON ve OK 62 20 20 DE DE [address] 0 PH EP 40 AR HE MA N MG CY A TA OF BL ET CY NT HI AN A SI 16 05 07 3 30 30 EA 22 MC Ac MV 71 -3 -[address] 74 KE ti 40 2- 00 SI 35 OK ve TA 68 20 20 DE E TI 40 11 11 JR N 3 PH 40 AR [place] MA LL MG CY IA M TA OF F BL ET CY NT HI AN A NE 00 05 06 2 30 30 EA 22 MC Ac XI 18 -2 -[address] 69 KE ti UM 65 5- 5- 00 SI 36 OK ve 04 [address] 03 11 11 JR 1 PH 40 AR [place] MA LL MG CY IA M CA OF F PS UL CY E NT HI AN A ZE 66 06 06 3 30 30 EA 23 MC Ac TI 58 -2 -[address] 05 KE ti A 20 3- 3- 00 SI 21 OK ve 10 41 20 20 DE E [...] RG 80 1- 5- 00 SI 11 OK ve E 48 20 20 DE E [...] AZ 30 7- 7- 00 SI 61 OK ve EP 83 20 20 DE E AM 20 11 11 JR 1 PH 0. [place] 5 MA LL MG CY IA M TA OF F BL ET CY NT HI AN A FU 63 05 06 2 30 30 EA 22 BE Ac RO 30 -0 -[address] 36 SS ti SE 40 3- 2- 00 SI 75 ON ve OK 62 20 20 DE DE [address] 0 PH EP 40 AR HE MA N MG CY A TA OF BL ET CY NT HI AN A SI 16 05 05 3 30 30 EA 22 MC Ac MV 71 -3 -[address] 74 KE ti 40 1- 1- 00 SI 35 OK ve TA 68 20 20 DE E TI 40 11 11 JR N 3 PH 40 AR [place] MA LL MG CY IA M TA OF F BL ET CY NT HI AN A NE 00 05 05 2 30 30 EA 22 MC Ac XI 18 -2 -[address] 69 KE ti UM 65 5- 6- 00 SI 36 OK ve 04 [address] [...] 7- 7- 00 SI 55 ON ve OK 04 20 20 DE N [address] HC 0 PH EP L AR HE 50 MA N 0 CY A MG OF TA BL CY ET NT HI AN A EX 00 04 05 3 30 30 EA 22 MC Ac FO 07 -1 -[address] 06 KE ti RG 80 1- 6- 00 SI 11 OK ve E 48 20 20 DE E [...] 3- 3- 00 SI 75 ON ve OK 62 20 20 DE DE 51 11 [...] UM 65 1- 5- 00 SI 04 OK ve 04 [address] 03 11 11 JR 1 PH 40 AR [place] MA LL MG CY IA M CA OF F PS UL CY E NT HI AN A SI 16 02 04 2 30 30 EA 21 MC Ac MV 71 -1 -[address] 26 KE ti 40 6- 5- 00 SI 51 OK ve TA 68 20 20 DE E TI 40 11 11 JR N 3 PH 40 AR [place] MA LL MG CY IA M TA OF F BL ET CY NT HI AN A EX 00 04 04 3 30 30 EA 22 MC Ac FO 07 -1 -[address] 06 KE ti RG 80 1- SI 11 OK ve E 48 20 20 DE E 10 91 11 11 JR -1 5 PH 60 AR [place] MA LL MG CY IA M TA OF F BL ET CY NT HI AN A 00 04 04 0 12 30 EA 22 MC Ac 59 -1 -[address] 05 KE ti 10 0- 0- 00 SI 59 OK ve 54 20 20 0 DE E 00 11 11 JR 1 PH AR [place] MA LL CY IA M OF F CY NT HI AN A CL 00 04 04 0 90 30 EA 22 MC Ac ON 09 -0 -[address] 01 KE ti AZ 30 6- 6 00 SI 40 OK ve EP 83 20 20 DE E AM 20 11 11 JR 1 PH 0. [place] 5 MA LL MG CY IA M TA OF F BL ET CY NT HI AN A HY 00 04 04 2 30 30 EA [address] 59 -0 -[address] 97 KE ti OC 10 4- 4- 00 SI 70 OK ve HL 34 20 20 DE E [...] DE TA RA 10 11 11 D OK 5 PH CA DE AR MP 5 MA BE CY LL MG K OF TA BL CY ET NT HI AN A NE 00 02 03 2 30 30 EA 21 MC Ac XI 18 -2 -[address] 33 KE ti UM 65 1- 2- 00 SI 04 OK ve 04 [address] 03 11 11 JR 1 PH 40 AR [place] MA LL MG CY IA M CA OF F PS UL CY E NT HI AN A SI 16 02 03 2 30 30 EA 21 MC Ac MV 71 -1 -[address] 26 KE ti 40 6- 2- 00 SI 51 OK ve TA 68 20 20 DE E [...] RG 80 3 9 00 SI 32 OK ve E 48 20 20 DE E 10 91 10 11 JR -1 5 PH 60 AR [place] MA LL MG CY IA M TA OF F BL ET CY NT HI AN A OH 00 01 03 2 20 5 EA 20 MC Ac OM 78 -1 -[address] 84 KE ti ET 11 7 9 SI 38 OK ve NG 83 20 20 DE E ZI 01 11 11 JR NE 0 PH AR [place] 25 MA LL CY IA MG M OF F TA BL CY ET NT HI AN A CL 00 03 03 0 90 30 EA 21 MC Ac ON 09 -0 -[address] 58 KE ti AZ 30 7 7 SI 91 OK ve EP 83 20 20 DE E AM 20 11 11 JR 1 PH 0. [place] 5 MA LL MG CY IA M TA OF F BL ET CY NT HI AN A HY 00 12 03 2 30 30 EA [address] 59 -2 -[address] 58 KE ti OC 10 9- 4 SI 00 OK ve HL 34 20 20 DE E [...] 33 KE ti UM 65 SI 04 OK ve 04 [address] 03 11 11 JR 1 PH 40 [place] MA LL MG CY IA M CA OF F PS UL CY E NT HI AN A FL 00 01 02 1 7. 7 EA 20 MC Ac UC 17 -1 -[address] 81 KE ti ON 25 5- 6- 0 SI 97 OK ve AZ 41 20 20 DE E OL 14 11 11 JR E 6 PH 10 AR WI 0 MA LL MG CY IA M TA OF F BL ET CY NT HI AN A SI 16 02 02 2 30 30 EA 21 MC Ac MV 71 -1 -[address] 26 KE ti 40 6 6 00 SI 51 OK ve TA 68 20 20 DE E TI 40 11 11 JR N 3 PH 40 AR [place] MA LL MG CY IA M TA OF F BL ET CY NT HI AN A [place] 00 01 02 1 [address] 16 -1 -[address] 84 KE ti AT 80 7- 5- 00 SI 39 OK ve IN 08 20 20 DE E -T 16 11 11 JR RI 0 PH AM AR WI CI MA LL NO CY IA LO M NE OF F CR CY EA NT M HI AN A 00 02 02 0 12 30 EA 21 Ac 59 -1 -[address] 20 KE ti 10 SI 16 OK ve 54 20 20 0 DE E 00 11 11 JR 1 PH AR [place] MA LL CY IA M OF F CY NT HI AN A CL 00 12 02 2 90 30 EA 20 Ac ON 09 -0 -[address] 32 KE ti AZ 30 9 7- 00 SI 83 OK ve EP 83 20 20 DE E AM 20 10 11 JR 1 PH 0. [place] 5 MA LL MG CY IA M TA OF F BL ET CY NT HI AN A EX 00 12 02 3 30 30 EA 20 MC Ac FO 07 -0 -[address] 24 KE ti RG 80 3- 5- 00 SI 32 OK ve E 48 20 20 DE E 10 91 10 11 JR -1 5 PH 60 AR [place] MA LL MG CY IA M TA OF F BL ET CY NT HI AN A HY 00 12 01 2 30 30 EA [address] 59 -2 -[address] 58 KE ti OC 10 9- 0- 00 SI 00 OK ve HL 34 20 20 DE E [...] UM 65 8- 0- 00 SI 05 OK ve 04 [address] 03 10 11 JR 1 PH 40 AR [place] MA LL MG CY IA M CA OF F PS UL CY E NT HI AN A OH 00 01 01 2 20 5 EA 20 MC Ac OM 78 -1 -[address] 84 KE ti ET 11 7- 7- 00 SI 38 OK ve NG 83 20 20 DE E ZI 01 11 11 JR NE 0 PH AR WI 25 MA LL CY IA MG M OF F TA BL CY ET NT HI AN A [place] 01 01 1 60 4 EA [address] 16 -1 -[address] 84 KE ti AT 80 7- 7- 00 SI 39 OK ve IN 08 20 20 DE E -T 16 11 11 JR RI 0 PH AM AR WI CI MA LL NO CY IA LO M NE OF F CR CY EA NT M HI AN A SI 16 12 01 1 30 30 EA 20 MC Ac MV 71 -1 -[address] 42 KE ti 40 6- 5- 00 SI 49 OK ve TA 68 20 20 DE E TI 40 10 11 JR N 3 PH 40 AR [place] MA LL MG CY IA M TA OF F BL ET CY NT HI AN A FL 00 01 01 1 7. 7 EA 20 MC Ac UC 17 -1 -[address] 81 KE ti ON 25 5- 5- 0 SI 97 OK ve AZ 41 20 20 DE E OL 14 11 11 JR E 6 PH 10 AR [place] 0 MA LL MG CY IA M TA OF F BL ET CY NT HI AN A 00 01 01 0 30 15 EA 20 MC Ac 14 -1 -[address] 81 KE ti 31 5- 5- 00 SI 98 OK ve 47 20 20 DE E 70 11 11 JR 5 PH AR WI MA LL CY IA M OF F CY NT HI AN A MU 00 01 01 0 22 4 EA 20 MC Ac PI 09 - -[address] 81 KE ti RO 31 4- 4- 00 SI 11 OK ve CI 01 20 20 DE E [...] AM 60 0- 0- 00 SI 99 OK ve ET 27 20 20 DE E HO 20 11 11 JR XA 5 PH ZO AR WI LE MA LL -T CY IA MP M OF F DS CY TA NT BL HI ET AN A MU 00 01 01 0 22 4 EA 20 MC Ac PI 09 -[address] 76 KE ti RO 31 0- 0- 00 SI 00 OK ve CI 01 20 20 DE E N 04 11 11 JR 2% 2 PH AR WI OI MA LL NT CY IA ME M NT OF F CY NT HI AN A CL 00 12 01 2 90 30 EA 20 MC Ac ON 09 -0 -[address] 32 KE ti AZ 30 9- 8- 00 SI 83 OK ve EP 83 20 20 DE E AM 20 10 11 JR 1 PH 0. [place] 5 MA LL MG CY IA M TA OF F BL ET CY NT HI AN A EX 00 12 01 3 30 30 EA 20 MC Ac FO 07 -0 -[address] 24 KE ti RG 80 3- 4- 00 SI 32 OK ve E 48 20 20 DE E 10 91 10 11 JR -1 5 PH 60 AR [place] MA LL MG CY IA M TA OF F BL ET CY NT HI AN A HY 00 12 12 2 30 30 EA [address] 59 -2 -[address] 58 KE ti OC 10 9 SI 00 OK ve HL 34 20 20 DE E [...] UM 65 8- 0- 00 SI 05 OK ve 04 [address] 03 10 10 JR 1 PH 40 AR [place] MA LL MG CY IA M CA OF F PS UL CY E NT HI AN A SI 16 12 12 1 30 30 EA 20 MC Ac MV 71 -1 -[address] 42 KE ti 40 6 6 00 SI 49 OK ve TA 68 20 20 DE E TI 40 10 10 JR N 3 PH 40 AR [place] MA LL MG CY IA M TA OF F BL ET CY NT HI AN A CL 00 12 12 2 90 30 EA 20 MC Ac ON 09 -0 -[address] 32 KE ti AZ 30 SI 83 OK ve EP 83 20 20 DE E AM 20 10 10 JR 1 PH 0. [place] 5 MA LL MG CY IA M TA OF F BL ET CY NT HI AN A EX 00 12 12 3 30 30 EA 20 MC Ac FO 07 -0 -[address] 24 KE ti RG 80 3- 3 00 SI 32 OK ve E 48 20 20 DE E 10 91 10 10 JR -1 5 PH 60 AR [place] MA LL MG CY IA M TA OF F BL ET CY NT HI AN A HY 00 09 11 2 30 30 EA [address] 59 -2 -[address] 23 KE ti OC 10 SI 17 OK ve HL 34 20 20 DE E [...] UM 65 8- 0- 00 SI 05 OK ve 04 [address] 03 10 10 JR 1 PH 40 [place] MA LL MG CY IA M CA OF F PS UL CY E NT HI AN A SI 16 08 11 3 30 30 EA 18 MC Ac MV 71 -0 -[address] 64 KE ti 40 9- 5- 00 SI 89 OK ve TA 68 20 20 DE E TI 40 10 10 JR N 3 PH 40 AR [place] MA LL MG CY IA M TA OF F BL ET CY NT HI AN A CL 00 11 11 0 90 30 EA 19 MC Ac ON 09 -0 -[address] 88 KE ti AZ 30 8- 8- 00 SI 62 OK ve EP 83 20 20 DE E AM 20 10 10 JR 1 PH 0. [place] 5 MA LL MG CY IA M TA OF F BL ET CY NT HI AN A EX 00 05 11 5 30 30 EA 17 MC Ac FO 07 -2 -[address] 70 KE ti RG 80 2- 3- 00 SI 24 OK ve E 48 20 20 DE E 10 91 10 10 JR -1 5 PH 60 AR [place] MA LL MG CY IA M TA OF F BL ET CY NT HI AN A LE 00 08 10 2 30 30 EA 18 MC Ac VO 37 -1 -[address] 75 KE ti TH 81 8- 3 00 SI 58 OK ve YR 80 20 20 DE E OX 30 10 10 JR IN 1 PH E [place] 50 MA LL CY IA MC M G OF F TA BL CY ET NT HI AN A HY 00 09 10 2 30 30 EA [address] 59 -2 -[address] 23 KE ti OC 10 1- 3- 00 SI 17 OK ve HL 34 20 20 DE E [...] UM 65 8- 8- 00 SI 05 OK ve 04 [address] 03 10 10 JR 1 PH 40 AR [place] MA LL MG CY IA M CA OF F PS UL CY E NT HI AN A SI 16 08 10 3 30 30 EA 18 MC Ac MV 71 -0 -[address] 64 KE ti 40 9- 5- 00 SI 89 OK ve TA 68 20 20 DE E TI 40 10 10 JR N 3 PH 40 AR [place] MA LL MG CY IA M TA OF F BL ET CY NT HI AN A 00 10 10 0 12 30 EA 19 MC Ac 59 -1 -[address] 53 KE ti 10 3- 3 00 SI 11 OK ve 54 20 20 0 DE E 00 10 10 JR 1 PH AR [place] MA LL CY IA M OF F CY NT HI AN A CL 00 10 10 0 90 30 EA 19 Ac ON 09 -0 -[address] 46 KE ti AZ 30 8 8 SI 44 OK ve EP 83 20 20 DE E AM 20 10 10 JR 1 PH 0. [place] 5 MA LL MG CY IA M TA OF F BL ET CY NT HI AN A EX 00 05 10 5 30 30 EA 17 MC Ac FO 07 -2 -[address] 70 KE ti RG 80 2- 2- 00 SI 24 OK ve E 48 20 20 DE E 10 91 10 10 JR -1 5 PH 60 AR [place] MA LL MG CY IA M TA OF F BL ET CY NT HI AN A GALLAGHER 53 09 09 0 20 10 EA 19 MC Ac LF 74 -2 -[address] 28 KE ti AM 60 SI 32 OK ve ET 27 20 20 DE E HO 20 10 10 JR XA 5 PH ZO AR WI LE MA LL -T CY IA MP M OF F DS CY TA NT BL HI ET AN A LE 00 08 09 2 30 30 EA 18 MC Ac VO 37 -1 -[address] 75 KE ti TH 81 8 SI 58 OK ve YR 80 20 20 DE E OX 30 10 10 JR IN 1 PH E [place] 50 MA LL CY IA MC M G OF F TA BL CY ET NT HI AN A HY 00 09 09 2 30 30 EA [address] 59 -2 -[address] 23 KE ti OC 10 1- SI 17 OK ve HL 34 20 20 DE E OR 70 10 10 JR OT 1 PH HI AR [place] MA LL ID CY IA E M 12 OF F .5 CY MG NT HI CP AN A SI 16 08 09 3 30 30 EA 18 MC Ac MV 71 -0 -[address] 64 KE ti 40 9- 4 00 SI 89 OK ve TA 68 20 20 DE E TI 40 10 10 JR N 3 PH 40 AR [place] MA LL MG CY IA M TA OF F BL ET CY NT HI AN A 00 09 09 0 12 30 EA 19 MC Ac 59 -1 -[address] 10 KE ti 10 3- 3- 00 SI 99 OK ve 54 20 20 0 DE E 00 10 10 JR 1 PH AR [place] MA LL CY IA M OF F CY NT HI AN A CL 00 09 09 0 90 30 EA 19 MC Ac ON 09 -0 -[address] 04 KE ti AZ 30 8- 8- 00 SI 54 OK ve EP 83 20 20 DE E AM 20 10 10 JR 1 PH 0. [place] 5 MA LL MG CY IA M TA OF F BL ET CY NT HI AN A EX 00 05 09 5 30 30 EA 17 MC Ac FO 07 -2 -[address] 70 KE ti RG 80 2- 1- 00 SI 24 OK ve E 48 20 20 DE E [...] OC 10 7- 8- 00 SI 77 OK ve HL 34 20 20 DE E [...] TH 81 8- 8- 00 SI 58 OK ve YR 80 20 20 DE E OX 30 10 10 JR IN 1 PH E [place] 50 MA LL CY IA MC M G OF F TA BL CY ET NT HI AN A 00 08 08 0 12 30 EA 18 MC Ac 59 -1 -[address] 71 KE ti 10 4- 4- 00 SI 12 OK ve 54 20 20 0 DE E 00 10 10 JR 1 PH AR [place] MA LL CY IA M OF F CY NT HI AN A CL 00 08 08 0 90 30 EA 18 MC Ac ON 09 -0 -[address] 64 KE ti AZ 30 9- 9- 00 SI 45 OK ve EP 83 20 20 DE E AM 20 10 10 JR 1 PH 0. [place] 5 MA LL MG CY IA M TA OF F BL ET CY NT HI AN A NE 00 08 08 3 60 30 EA 18 MC Ac XI 18 -0 -[address] 64 KE ti UM 65 9- 9- 00 SI 88 OK ve 04 [address] 03 10 10 JR 1 PH 40 AR [place] MA LL MG CY IA M CA OF F PS UL CY E NT HI AN A SI 16 08 08 3 30 30 EA 18 MC Ac MV 71 -0 -[address] 64 KE ti 40 9- 9- 00 SI 89 OK ve TA 68 20 20 DE E TI 40 10 10 JR N 3 PH 40 AR [place] MA LL MG CY IA M TA OF F BL ET CY NT HI AN A EX 00 05 07 5 30 30 EA 17 MC Ac FO 07 -2 -[address] 70 KE ti RG 80 2- 8- 00 SI 24 OK ve E 48 20 20 DE E 10 91 10 10 JR -1 5 PH 60 AR [place] MA LL MG CY IA M TA OF F BL ET CY NT HI AN A LE 00 04 07 3 30 30 EA 17 MC Ac VO 37 -0 -[address] 10 KE ti TH 81 7- 0- 00 SI 12 OK ve YR 80 20 20 DE E OX 30 10 10 JR IN 1 PH E [place] 50 MA LL CY IA MC M G OF F TA BL CY ET NT HI AN A HY 00 05 07 3 30 30 EA [address] 59 -0 -[address] 50 KE ti OC 10 7- 0- 00 SI 77 OK ve HL 34 20 20 DE E [...] AZ 30 8- 8- 00 SI 89 OK ve EP 83 20 20 DE E [...] ti 90 2- 3- 00 SI 46 OK ve TA 00 20 20 DE E TI 61 10 10 JR N 7 PH 40 AR [place] MA LL MG CY IA M TA OF F BL ET CY NT HI AN A NE 00 03 07 3 30 30 EA 16 MC Ac XI 18 -1 -[address] 82 KE ti UM 65 7- 3- 00 SI 12 OK ve 04 [address] 03 10 10 JR 1 PH 40 AR [place] MA LL MG CY IA M CA OF F PS UL CY E NT HI AN A EX 00 05 06 5 30 30 EA 17 MC Ac FO 07 -2 -[address] 70 KE ti RG 80 2- 7- 00 SI 24 OK ve E 48 20 20 DE E 10 91 10 10 JR -1 5 PH 60 AR [place] MA LL MG CY IA M TA OF F BL ET CY NT HI AN A 00 06 06 0 12 30 EA 17 MC Ac 59 -1 -[address] 97 KE ti 10 4- 4- 00 SI 41 OK ve 54 20 20 0 DE E 00 10 10 JR 1 PH AR [place] MA LL CY IA M OF F CY NT HI AN A LE 00 04 06 3 30 30 EA 17 Ac VO 37 -0 -[address] 10 KE ti TH 81 7- 1- 00 SI 12 OK ve YR 80 20 20 DE E OX 30 10 10 JR IN 1 PH E [place] 50 MA LL CY IA MC M G OF F TA BL CY ET NT HI AN A HY 00 05 06 3 30 30 EA [address] 59 -0 -[address] 50 KE ti OC 10 7- 1- 00 SI 77 OK ve HL 34 20 20 DE E [...] AZ 30 5- 5- 00 SI 85 OK ve EP 83 20 20 DE E AM 20 10 10 JR 1 PH 0. [place] 5 MA LL MG CY IA M TA OF F BL ET CY NT HI AN A NE 00 03 05 3 30 30 EA 16 MC Ac XI 18 -1 -[address] 82 KE ti UM 65 7- 9- 00 SI 12 OK ve 04 [address] 03 10 10 JR 1 PH 40 [place] MA LL MG CY IA M CA OF F PS UL CY E NT HI AN A SI 65 02 05 3 30 30 EA 16 MC Ac MV 86 -1 -[address] 35 KE ti 20 2- 9- 00 SI 46 OK ve TA 05 20 20 DE E TI 33 10 10 JR N 0 PH 40 AR [place] MA LL MG CY IA M TA OF F BL ET CY NT HI AN A EX 00 05 05 5 30 30 EA 17 MC Ac FO 07 -2 -[address] 70 KE ti RG 80 2- 2- 00 SI 24 OK ve E 48 20 20 DE E 10 91 10 10 JR -1 5 PH 60 AR [place] MA LL MG CY IA M TA OF F BL ET CY NT HI AN A 00 05 05 0 12 30 EA 17 MC Ac 59 -1 -[address] 61 KE ti 10 5- 5- 00 SI 05 OK ve 54 20 20 0 DE E 00 10 10 JR 1 PH AR [place] MA LL CY IA M OF F CY NT HI AN A LE 00 04 05 3 30 30 EA 17 MC Ac VO 37 -0 -[address] 10 KE ti TH 81 7- 7- 00 SI 12 OK ve YR 80 20 20 DE E OX 30 10 10 JR IN 1 PH E [place] 50 MA LL CY IA MC M G OF F TA BL CY ET NT HI AN A HY 00 05 05 3 30 30 EA [address] 59 -0 -[address] 50 KE ti OC 10 7- 7- 00 SI 77 OK ve HL 34 20 20 DE E [...] AZ 30 6- 6- 00 SI 98 OK ve EP 83 20 20 DE E AM 20 10 10 JR 1 PH 0. [place] 5 MA LL MG CY IA M TA OF F BL ET CY NT HI AN A SI 65 02 04 3 30 30 EA 16 MC Ac MV 86 -1 -[address] 35 KE ti 20 2- 3- 00 SI 46 OK ve TA 05 20 20 DE E TI 33 10 10 JR N 0 PH 40 AR [place] MA LL MG CY IA M TA OF F BL ET CY NT HI AN A NE 00 03 04 3 30 30 EA 16 MC Ac XI 18 -1 -[address] 82 KE ti UM 65 7- 3- 00 SI 12 OK ve 04 [address] 03 10 10 JR 1 PH 40 [place] MA LL MG CY IA M CA OF F PS UL CY E NT HI AN A 00 04 04 0 12 30 EA 17 MC Ac 59 -1 -[address] 20 KE ti 10 5- 5 SI 16 OK ve 54 20 20 0 DE E 00 10 10 JR 1 PH AR [place] MA LL CY IA M OF F CY NT HI AN A CL 00 04 04 0 60 30 EA 17 MC Ac ON .0 ST 20 KE ti AZ 30 5- 5 SI 17 OK ve EP 83 20 20 DE E AM 20 10 10 JR 1 PH 0. [place] 5 MA LL MG CY IA M TA OF F BL ET CY NT HI AN A HY 00 01 04 3 30 30 EA [address] 59 -0 -[address] 81 KE ti OC 10 4 SI 52 OK ve HL 34 20 20 DE E OR 70 10 10 JR OT 1 PH HI AR [place] MA LL ID CY IA E M 12 OF F .5 CY MG NT HI CP AN A LE 00 04 04 3 30 30 EA 17 MC Ac VO 37 -0 -[address] 10 KE ti TH 81 7 7 SI 12 OK ve YR 80 20 20 DE E OX 30 10 10 JR IN 1 PH E [place] 50 MA LL CY IA MC M G OF F TA BL CY ET NT HI AN A SI 65 02 03 3 30 30 EA 16 MC Ac MV 86 -1 -[address] 35 KE ti 20 2- 7- SI 46 OK ve TA 05 20 20 DE E TI 33 10 10 JR N 0 PH 40 AR [place] MA LL MG CY IA M TA OF F BL ET CY NT HI AN A CL 00 03 03 0 60 30 EA 16 MC Ac ON .0 ST 81 KE ti AZ 30 7- 7 SI 84 OK ve EP 83 20 20 DE E AM 20 10 10 JR 1 PH 0. [place] 5 MA LL MG CY IA M TA OF F BL ET CY NT HI AN A NE 00 03 03 3 30 30 EA 16 MC Ac XI 18 -1 -[address] 82 KE ti UM 65 7- 7- 00 SI 12 OK ve 04 [address] 03 10 10 JR 1 PH 40 AR [place] MA LL MG CY IA M CA OF F PS UL CY E NT HI AN A 00 03 03 0 12 30 EA 16 MC Ac 59 -1 -[address] 81 KE ti 10 7- 7 00 SI 83 OK ve 54 20 20 0 DE E 00 10 10 JR 1 PH AR [place] MA LL CY IA M OF F CY NT HI AN A LE 00 12 03 3 30 30 EA 15 MC Ac VO 37 -0 -[address] 38 KE ti TH 81 2- 8 00 SI 79 OK ve YR 80 20 20 DE E OX 30 09 10 JR IN 1 PH E [place] 50 MA LL CY IA MC M G OF F TA BL CY ET NT HI AN A HY 00 01 03 3 30 30 EA [address] 59 -0 -[address] 81 KE ti OC 10 4 8 00 SI 52 OK ve HL 34 20 20 DE E OR 70 10 10 JR OT 1 PH HI AR [place] MA LL ID CY IA E M 12 OF F .5 CY MG NT HI CP AN A CL 00 02 02 00 60 30 EA 16 MC Ac ON 09 -1 -[address] 37 KE ti AZ 30 5 6 SI 94 OK ve EP 83 20 20 DE E AM 20 10 10 JR 1 PH 0. AR [place] 5 MA LL MG CY IA M TA OF F BL CY ET NT HI AN A 00 02 02 00 12 30 EA 16 MC Ac 59 -1 -[address] 37 KE ti 10 5- 6- SI 95 OK ve 54 20 20 0 DE E 00 10 10 JR 1 PH AR [place] MA LL CY IA M OF F CY NT HI AN A SI 65 02 02 00 30 30 EA 16 MC Ac MV 86 -1 -[address] 35 KE ti 20 2- 6- 00 SI 46 OK ve TA 05 20 20 DE E TI 33 10 10 JR N 0 PH 40 AR [place] MA LL MG CY IA M TA OF F BL CY ET NT HI AN A NE 00 08 02 05 30 30 EA 14 MC Ac XI 18 -3 -[address] 06 KE ti UM 65 1- 1- 00 SI 00 OK ve 04 [address] 03 09 10 JR 1 PH 40 AR [place] MA LL MG CY IA M CA OF F PS CY UL NT E HI AN A LE 00 12 02 02 30 30 EA 15 MC Ac VO 37 -0 -[address] 38 KE ti TH 81 2 SI 79 OK ve YR 80 20 20 DE E OX 30 09 10 JR IN 1 PH E [place] 50 MA LL CY IA MC M G OF F TA CY BL NT ET HI AN A HY 00 02 01 30 30 EA [address] 59 -0 -[address] 81 KE ti OC 10 4- SI 52 OK ve HL 34 20 20 DE E OR 70 10 10 JR OT 1 PH HI AR [place] MA LL ID CY IA E M 12 OF F .5 CY NT MG HI AN CP A 00 11 28 00 12 30 EA 15 MC Ac 59 -1 -[address] 95 KE ti 10 4 8 SI 82 OK ve 54 20 20 0 DE E 00 10 10 JR 1 PH AR [place] MA LL CY IA M OF F CY NT HI AN A SI 65 09 01 03 30 30 EA 14 MC Ac MV 86 -3 -[address] 49 KE ti 20 0 SI 48 OK ve TA 05 20 20 DE E TI 33 09 10 JR N 0 PH 40 AR [place] MA LL MG CY IA M TA OF F BL CY ET NT HI AN A CL 00 11 28 00 60 30 EA 15 MC Ac ON 09 -1 -[address] 95 KE ti AZ 30 4 SI 83 OK ve EP 83 20 20 DE E AM 20 10 10 JR 1 PH 0. [place] 5 MA LL MG CY IA M TA OF F BL CY ET NT HI AN A LE 00 12 11 28 30 30 EA 15 MC Ac VO 37 -0 -[address] 38 KE ti TH 81 2 SI 79 OK ve YR 80 20 20 DE E OX 30 09 10 JR IN 1 PH E [place] 50 MA LL CY IA MC M G OF F TA CY BL NT ET HI AN A HY 00 11 28 00 30 30 EA [address] 59 -0 -[address] 81 KE ti OC 10 4 SI 52 OK ve HL 34 20 20 DE E [...] UM 65 1- 4- 00 SI 00 OK ve 04 [address] 03 09 10 JR 1 PH 40 AR [place] MA LL MG CY IA M CA OF F PS CY UL NT E HI AN A CL 00 12 12 00 60 30 EA 15 MC Ac ON 09 -1 -[address] 56 KE ti AZ 30 4- - SI 09 OK ve EP 83 20 20 DE E AM 20 09 09 JR 1 PH 0. AR [place] 5 MA LL MG CY IA M TA OF F BL CY ET NT HI AN A 00 12 12 00 12 30 EA 15 MC Ac 59 -1 -[address] 56 KE ti 10 4- - 00 SI 08 OK ve 54 20 20 0 DE E 00 09 09 JR 1 PH AR [place] MA LL CY IA M OF F CY NT HI AN A NE 00 08 12 03 30 30 EA 14 MC Ac XI 18 -3 -[address] 06 KE ti UM 65 1- 7- 00 SI 00 OK ve 04 [address] 03 09 JR 1 PH 40 AR [place] MA LL MG CY IA M CA OF F PS CY UL NT E HI AN A LE 00 12 12 00 30 30 EA 15 MC Ac VO 37 -0 -[address] 38 KE ti TH 81 2- 7- 00 SI 79 OK ve YR 80 20 20 DE E OX 30 09 JR IN 1 PH E [place] 50 MA LL CY IA MC M G OF F TA CY BL NT ET HI AN A SI 65 09 12 02 30 30 EA 14 MC Ac MV 86 -3 -[address] 49 KE ti 20 0- 7- 00 SI 48 OK ve TA 05 20 20 DE E TI 33 09 09 JR N 0 PH 40 AR [place] MA LL MG CY IA M TA OF F BL CY ET NT HI AN A HY 00 07 12 04 30 30 EA [address] 59 -1 -[address] 47 KE ti OC 10 4- 7- 00 SI 77 OK ve HL 34 20 20 DE E [...] [place] 30 4 3- 00 SI 29 OK ve EP 83 20 20 DE E AM 20 09 09 JR 1 PH 0. AR [place] 5 MA LL MG CY IA M TA OF F BL CY ET NT HI AN A LE 00 07 11 03 30 30 EA 13 MC Ac VO 37 -2 -[address] 63 KE ti TH 81 7 9 SI 09 OK ve YR 80 20 20 DE E OX 30 09 09 JR IN 1 PH E [place] 50 MA LL CY IA MC M G OF F TA CY BL NT ET HI AN A SI 65 09 11 01 30 30 EA 14 MC Ac MV 86 -3 -[address] 49 KE ti 20 0 9 00 SI 48 OK ve TA 05 20 20 DE E TI 33 09 09 JR N 0 PH 40 AR [place] MA LL MG CY IA M TA OF F BL CY ET NT HI AN A NE 00 08 11 02 30 30 EA 14 MC Ac XI 18 -3 -[address] 06 KE ti UM 65 SI 00 OK ve 04 [address] 03 09 09 JR 1 PH 40 AR [place] MA LL MG CY IA M CA OF F PS CY UL NT E HI AN A HY 00 07 11 03 30 30 EA [address] 59 -1 -[address] 47 KE ti OC 10 4- 5- 00 SI 77 OK ve HL 34 20 20 DE E OR 70 09 09 JR OT 1 PH HI AR [place] MA LL ID CY IA E M 12 OF F .5 CY NT MG HI AN CP A 00 10 10 00 12 30 EA 14 MC Ac 59 -1 -[address] 69 KE ti 10 4- 2- 00 SI 56 OK ve 54 20 20 0 DE E 00 09 09 JR 1 PH AR [place] MA LL CY IA M OF F CY NT HI AN A CL 00 10 10 00 60 30 EA 14 MC Ac ON 09 -1 -[address] 69 KE ti [place] 30 4- 2- 00 SI 57 OK ve EP 83 20 20 DE E AM 20 09 09 JR 1 PH 0. [place] 5 MA LL MG CY IA M TA OF F BL CY ET NT HI AN A NE 00 08 10 01 30 30 EA 14 MC Ac XI 18 -3 -[address] 06 KE ti UM 65 2- SI 00 OK ve 04 [address] 03 09 09 JR 1 PH 40 AR [place] MA LL MG CY IA M CA OF F PS CY UL NT E HI AN A SI 65 09 10 00 30 30 EA 14 MC Ac MV 86 -3 -[address] 49 KE ti 20 0- 8- 00 SI 48 OK ve TA 05 20 20 DE E TI 33 09 09 JR N 0 PH 40 AR [place] MA LL MG CY IA M TA OF F BL CY ET NT HI AN A LE 00 07 10 02 30 30 EA 13 MC Ac VO 37 -2 -[address] 63 KE ti TH 81 7- 8- 00 SI 09 OK ve YR 80 20 20 DE E OX 30 09 09 JR IN 1 PH E [place] 50 MA LL CY IA MC M G OF F TA CY BL NT ET HI AN A CL 00 09 09 00 60 30 EA 14 MC Ac ON -[address] 23 KE ti AZ 30 4- 4- 00 SI 85 OK ve EP 83 20 20 DE E AM 20 09 JR 1 PH 0. [place] 5 MA LL MG CY IA M TA OF F BL CY ET NT HI AN A 00 09 09 00 12 30 EA 14 MC Ac 59 -1 -[address] 23 KE ti 10 4- 4- 00 SI 84 OK ve 54 20 20 0 DE E 00 09 09 JR 1 PH AR [place] MA LL CY IA M OF F CY NT HI AN A HY 00 07 09 02 30 30 EA [address] 59 -1 -[address] 47 KE ti OC 10 4- 4- 00 SI 77 OK ve HL 34 20 20 DE E [...] TH 81 7- 0- 00 SI 09 OK ve YR 80 20 20 DE E OX 30 09 09 JR IN 1 PH E AR [place] 50 MA LL CY IA MC M G OF F TA CY BL NT ET HI AN A NE 00 08 09 00 30 30 EA 14 MC Ac XI 18 -3 -[address] 06 KE ti UM 65 1- 0- 00 SI 00 OK ve 04 [address] 03 09 09 JR 1 PH 40 AR [place] MA LL MG CY IA M CA OF F PS CY UL NT E HI AN A CL 00 08 08 00 60 30 EA 13 MC Ac ON -[address] 84 KE ti AZ 30 4- 7- 00 SI 73 OK ve EP 83 20 20 DE E AM 20 09 09 JR 1 PH 0. AR [place] 5 MA LL MG CY IA M TA OF F BL CY ET NT HI AN A HY 00 07 08 01 30 30 EA [address] 59 -1 -[address] 47 KE ti OC 10 4- 7- 00 SI 77 OK ve HL 34 20 20 DE E OR 70 09 09 JR OT 1 PH HI AR [place] MA LL ID CY IA E M 12 OF F .5 CY NT MG HI AN CP A 00 08 08 00 12 30 EA 13 MC Ac 59 -1 -[address] 84 KE ti 10 4- 7- 00 SI 74 OK ve 54 20 20 0 DE E 00 09 09 JR 1 PH AR [place] MA LL CY IA M OF F CY NT HI AN A SI 65 05 08 03 30 30 EA 12 MC Ac MV 86 -0 -[address] 56 KE ti 20 1- 7- 00 SI 59 OK ve TA 05 20 20 DE E TI 33 09 09 JR N 0 PH 40 AR [place] MA LL MG CY IA M TA OF F BL CY ET NT HI AN A LE 00 07 08 00 30 30 EA 13 MC Ac VO 37 -2 -[address] 63 KE ti TH 81 7- 3- 00 SI 09 OK ve YR 80 20 20 DE E OX 30 09 09 JR IN 1 PH E [place] 50 MA LL CY IA MC M G OF F TA CY BL NT ET HI AN A NE 00 04 08 03 30 30 EA 12 MC Ac XI 18 -1 -[address] 35 KE ti UM 65 5- 3- 00 SI 57 OK ve 04 [address] 03 09 09 JR 1 PH 40 AR [place] MA LL MG CY IA M CA OF F PS CY UL NT E HI AN A SI 65 05 07 02 30 30 EA 12 MC Ac MV 86 -0 -[address] 56 KE ti 20 1- 0- 00 SI 59 OK ve TA 05 20 20 DE E TI 33 09 09 JR N 0 PH 40 AR [place] MA LL MG CY IA M TA OF F BL CY ET NT HI AN A 00 07 07 00 12 30 EA 13 MC Ac 59 -1 -[address] 50 KE ti 10 5- 0- 00 SI 62 OK ve 54 20 20 0 DE E 00 09 09 JR 1 PH AR [place] MA LL CY IA M OF F CY NT HI AN A CL 00 05 07 02 60 30 EA 12 MC Ac ON 09 -1 -[address] 75 KE ti AZ 30 5- 0- 00 SI 71 OK ve EP 83 20 20 DE E AM 20 09 09 JR 1 PH 0. AR [place] 5 MA LL MG CY IA M TA OF F BL CY ET NT HI AN A HY 00 07 07 00 30 30 EA [address] 59 -1 -[address] 47 KE ti OC 10 4- 0- 00 SI 77 OK ve HL 34 20 20 DE E OR 70 09 09 JR OT 1 PH HI AR [place] MA LL ID CY IA E M 12 OF F .5 CY NT MG HI AN CP A NE 00 04 07 02 30 30 EA 12 MC Ac XI 18 -1 -[address] 35 KE ti UM 65 5- 6- 00 SI 57 OK ve 04 [address] 03 09 09 JR 1 PH 40 AR [place] MA LL MG CY IA M CA OF F PS CY UL NT E HI AN A HY 00 05 07 01 30 30 EA [address] 59 -1 -[address] 72 KE ti OC 10 2- 2- 00 SI 08 OK ve HL 34 20 20 DE E OR 70 09 09 JR OT 1 PH HI AR [place] MA LL ID CY IA E M 12 OF F .5 CY NT MG HI AN CP A HY 00 06 07 00 60 10 EA [address] 55 -2 -[address] 28 ON ti OX 50 6- 2- 00 SI 19 NE ve YZ 32 20 20 DE LL IN 30 09 09 E 4 PH ANJELICA PA AR HN M MA 25 CY MG OF CY CA NT P HI AN A ME 16 06 07 00 90 30 EA 13 MC Ac TO 71 -1 -[address] 13 KE ti CL 40 3- 2- 00 SI 20 OK ve OP 06 20 20 DE E RA 20 09 09 JR OK 6 PH DE AR WI MA LL 10 CY IA M MG OF F CY TA NT BL HI ET AN A CL 00 05 07 01 60 30 EA 12 MC Ac ON 09 -1 -[address] 75 KE ti AZ 30 5- 2- 00 SI 71 OK ve EP 83 20 20 DE E AM 20 09 09 JR 1 PH 0. AR [place] 5 MA LL MG CY IA M TA OF F BL CY ET NT HI AN A 00 06 07 00 12 30 EA 13 MC Ac 59 -1 -[address] 16 KE ti 10 6- 2- 00 SI 06 OK ve 54 20 20 0 DE E [...] ti 20 1- 8- 00 SI 59 OK ve TA 05 20 20 DE E TI 33 09 09 JR N 0 PH 40 AR [place] MA LL MG CY IA M TA OF F BL CY ET NT HI AN A NE 00 04 06 01 30 30 EA 12 MC Ac XI 18 -1 -[address] 35 KE ti UM 65 5- 4- SI 57 OK ve 04 [address] 03 09 09 JR 1 PH 40 AR [place] MA LL MG CY IA M CA OF F PS CY UL NT E HI AN A 00 05 06 00 12 30 EA 12 MC Ac 59 -1 -[address] 77 KE ti 10 8- 4- 00 SI 89 OK ve 54 20 20 0 DE E [...] XI 52 5- 1- 00 SI 72 OK ve CA 55 20 20 DE E M 40 09 09 JR 15 1 PH AR WI MG MA LL CY IA TA M BL OF F ET CY NT HI AN A HY 00 05 05 00 30 30 EA [address] 59 -1 -[address] 72 KE ti OC 10 2- 1- 00 SI 08 OK ve HL 34 20 20 DE E [...] AZ 30 5- 1- 00 SI 71 OK ve EP 83 20 20 DE E AM 20 09 09 JR 1 PH 0. [place] 5 MA LL MG CY IA M TA OF F BL CY ET NT HI AN A SI 65 05 05 00 30 30 EA 12 MC Ac MV 86 -0 -[address] 56 KE ti 20 1- 7- 00 SI 59 OK ve TA 05 20 20 DE E TI 33 09 09 JR N 0 PH 40 AR [place] MA LL MG CY IA M TA OF F BL CY ET NT HI AN A NE 00 04 04 00 30 30 EA 12 MC Ac XI 18 -1 -[address] 35 KE ti UM 65 5- 3- 00 SI 57 OK ve 04 [address] [...] CY NT HI AN A ME 49 03 04 01 30 30 EA 11 NG Ac TO 88 -1 -[address] 90 RV ti OH 40 6- 3- 00 SI 94 EY [...] HI AN CP A ME 49 03 03 00 30 30 EA 11 NG Ac TO 88 -1 -[address] 90 RV ti OH 40 6- 6- 00 SI 94 EY [...] -[address] 75 KE ti 20 6 6- 00 SI 41 OK ve TA 05 20 20 DE E TI 33 08 09 JR N 0 PH 40 AR [place] MA LL MG CY IA M TA OF F BL CY ET NT HI AN A LE 00 03 03 00 30 30 EA 11 NG Ac VO 37 -1 -[address] 90 RV ti TH 81 6- 6 00 SI 92 EY ve YR 80 [...] UM 65 0- 6- 00 SI 05 OK ve 04 [address] 03 09 09 JR 1 PH 40 AR [place] MA LL MG CY IA M CA OF F PS CY UL NT E HI AN A 00 02 02 00 12 30 EA 11 MC Ac 59 -1 -[address] 48 KE ti 10 6 6 00 SI 90 OK ve 54 20 20 0 DE E 00 09 09 JR 1 PH AR [place] MA LL CY IA M OF F CY NT HI AN A ME 49 11 02 03 30 30 EA 10 MC Ac TO 88 -0 -[address] 14 KE ti OH 40 5- 6- 00 SI 65 OK ve OL 40 20 20 DE E OL 50 08 09 JR 1 PH GALLAGHER AR WI CC MA LL CY IA ER M OF F 50 CY NT MG HI AN TA A B SI 65 10 02 04 30 30 EA 99 MC Ac MV 86 -0 -[address] 75 KE ti 20 6- 6- 00 SI 41 OK ve TA 05 20 20 DE E TI 33 08 09 JR N 0 PH 40 AR [place] MA LL MG CY IA M TA OF F BL CY ET NT HI AN A CL 00 02 02 00 60 30 EA 11 MC Ac ON 09 -1 -[address] 48 KE ti [place] 30 6- 6- 00 SI 89 OK ve EP 83 20 20 DE E AM 20 09 09 JR 1 PH 0. AR [place] 5 MA LL MG CY IA M TA OF F BL CY ET NT HI AN A LE 00 01 02 01 30 30 EA 11 MC Ac VO 37 -1 -[address] 07 KE ti TH 81 3- 6- 00 SI 93 OK ve YR 80 20 20 DE E [...] UM 65 6- 2- 00 SI 45 OK ve 04 [address] 03 08 09 JR 1 PH 40 AR [place] MA LL MG CY IA M CA OF F PS CY UL NT E HI AN A LE 00 01 01 00 30 30 EA 11 MC Ac VO 37 -1 -[address] 07 KE ti TH 81 3- 0- 00 SI 93 OK ve YR 80 20 20 DE E [...] UM 65 6- 5- 00 SI 45 OK ve 04 [address] 03 08 09 JR 1 PH 40 AR [place] MA LL MG CY IA M CA OF F PS CY UL NT E HI AN A SI 65 10 01 03 30 30 EA 99 MC Ac MV 86 -0 -[address] 75 KE ti 20 6- 5- 00 SI 41 OK ve TA 05 20 20 DE E TI 33 08 09 JR N 0 PH 40 AR [place] MA LL MG CY IA M TA OF F BL CY ET NT HI AN A ME 49 11 01 02 30 30 EA 10 MC Ac TO 88 -0 -[address] 14 KE ti OH 40 5- 5- 00 SI 65 OK ve OL 40 20 20 DE E OL 50 08 09 JR 1 PH GALLAGHER AR [place] CC MA LL CY IA ER M OF F 50 CY NT MG HI AN TA A B LE 00 11 01 01 30 30 EA 10 MC Ac VO 37 -1 -[address] 21 KE ti TH 81 0- 1- 00 SI 64 OK ve YR 80 20 20 DE E [...] ti 20 6- 8- 00 SI 41 OK ve TA 05 20 20 DE E TI 33 08 08 JR N 0 PH 40 AR [place] MA LL MG CY IA M TA OF F BL CY ET NT HI AN A 60 12 12 00 12 3 EA 10 MC Ac 25 -0 -[address] 54 KE ti 80 4- 8- 00 SI 81 OK ve 23 20 20 0 DE E 91 08 08 JR 6 PH AR [place] MA LL CY IA M OF F CY NT HI AN A CL 00 10 12 01 60 30 EA 99 MC Ac ON 09 -1 -[address] 81 KE ti AZ 30 0- 8- 00 SI 89 OK ve EP 83 20 20 DE E AM 20 08 08 JR 1 PH 0. [place] 5 MA LL MG CY IA M TA OF F BL CY ET NT HI AN A NE 00 08 12 03 30 30 EA 99 MC Ac XI 18 -2 -[address] 22 KE ti UM 65 6- 8- 00 SI 45 OK ve 04 [address] 03 08 08 JR 1 PH 40 AR [place] MA LL MG CY IA M CA OF F PS CY UL NT E HI AN A AM 68 12 12 [...] -0 -[address] 14 KE ti OH 40 5- 8- 00 SI 65 OK ve OL 40 20 20 DE E OL 50 08 08 JR 1 PH GALLAGHER AR [place] CC MA LL CY IA ER M OF F 50 CY NT MG HI AN TA A B SI 65 10 11 01 30 30 EA 99 MC Ac MV 86 -0 -[address] 75 KE ti 20 6- 0- 00 SI 41 OK ve TA 05 20 20 DE E TI 33 08 08 JR N 0 PH 40 AR [place] MA LL MG CY IA M TA OF F BL CY ET NT HI AN A CL 00 10 11 00 60 30 EA 99 MC Ac ON 09 -1 -[address] 81 KE ti AZ 30 0- 0- 00 SI 89 OK ve EP 83 20 20 DE E AM 20 08 08 JR 1 PH 0. AR [place] 5 MA LL MG CY IA M TA OF F BL CY ET NT HI AN A ME 49 11 11 00 30 30 EA 10 MC Ac TO 88 -0 -[address] 14 KE ti OH 40 5- 0- 00 SI 65 OK ve OL 40 20 20 DE E OL 50 08 08 JR 1 PH GALLAGHER AR [place] CC MA LL CY IA ER M OF F 50 CY NT MG HI AN TA A B LE 00 11 11 00 30 30 EA 10 MC Ac VO 37 -1 -[address] 21 KE ti TH 81 0- 0- 00 SI 64 OK ve YR 80 20 20 DE E OX 30 08 08 JR IN 1 PH E [place] 50 MA LL CY IA MC M G OF F TA CY BL NT ET HI AN A NE 00 08 11 02 30 30 EA 99 MC Ac XI 18 -2 -[address] 22 KE ti UM 65 6- 7- 00 SI 45 OK ve 04 [address] [...] -0 -[address] 58 t ti OH 40 1- 3- 00 SI 13 Av [...] ET HI AN A ME 49 07 09 02 30 30 EA 98 No Ac TO 88 -0 -[address] 58 t ti OH 40 1- 1- 00 SI 13 Av [...] NT HI AN A LI 00 04 08 03 30 30 EA 97 No Ac PI 07 -2 -[address] 74 t ti TO 10 5- 4- 00 SI 98 Av ve R 15 20 20 DE ai 10 52 08 08 la 3 PH bl MG AR e MA TA CY BL ET OF CY NT HI AN A OH 37 08 08 00 30 30 EA [...] 01 30 30 EA 98 No Ac OH 18 -0 -[address] 58 t [...] CY OF CY NT HI AN A OH 37 04 07 03 30 30 EA [...] .0 ST 74 t ti TO 10 7- 00 SI 98 Av ve R 15 20 20 DE ai 10 52 08 08 la 3 PH bl MG AR e MA TA CY BL ET OF CY NT HI AN A TO 00 07 07 00 30 30 EA 98 No Ac OH 18 -0 -[address] 58 t [...] 9- 7- 00 SI 06 Av ve OH 50 20 20 DE ai AM 98 [...] CY BL NT ET HI AN A OH 37 04 06 02 30 30 EA [...] 01 30 30 EA 97 No Ac OH 18 -2 -[address] 75 t [...] ET OF CY NT HI AN A OH 37 04 05 01 30 30 EA 97 No Ac IL 00 -0 -[address] 45 t ti OS 00 2- 2- 00 SI 42 Av ve EC 45 20 20 DE ai 50 08 08 la OT 2 PH bl C AR e 20 MA .6 CY MG OF CY TA NT BL HI ET AN A CL 00 05 05 00 60 30 EA 97 No Ac ON 09 -0 -[address] 93 t ti AZ 30 9- 2- 00 SI 12 Av ve EP 83 20 20 DE ai AM 20 08 08 la 1 PH bl 0. AR e 5 MA MG CY TA OF BL CY ET NT HI AN A EN 60 05 [...] 00 30 30 EA 97 No Ac OH 18 -2 -[address] 75 t [...] 0. ST 56 t ti CE 10 1 8 SI 82 Av ve T 70 20 20 0 DE ai 7. 07 08 08 la 5- 0 PH bl 32 AR e 5 MA MG CY TA OF BL CY ET NT HI AN A LI 00 04 05 00 30 30 EA 97 No Ac PI 07 -2 -[address] 74 t ti TO 10 8 SI 98 Av ve R 15 20 20 DE ai 10 52 08 08 la 3 PH bl MG AR e MA TA CY BL ET OF CY NT HI AN A CL 00 04 04 00 60 30 EA 97 No Ac ON 09 -1 -[address] 56 t ti AZ 30 1- 4 SI 83 Av ve EP 83 20 [...] 7- 0- 00 SI 65 Av ve OH 34 20 20 DE ai AM 30 08 08 la 1 PH bl HB AR e R MA 20 CY MG OF CY TA NT BL HI ET AN A OH 37 04 04 00 30 30 EA [...] -2 -[address] 38 t ti OH 40 7- 0- 00 SI 67 Av [...] 7- 5- 00 SI 25 Av ve OH 02 20 20 DE ai ED 20 [...] ider Refu lity Give sed n IIV3 09 141 MCKE No MCKE 6-20 MAGALIE MAGALIE VACC 13 JR JR INE AREN SPLI T VIRU AREN S 0.5 ML DOSA GE IM USE Procedures Procedure DOS Code Location Performer Comment COLLECTIO 47942 [facility]OUS [facility] BLOOD INC INC VENIPUNCT URE CREATININ 71872 [facility]LOOD [facility] [place] [place] [address] [facility] UREA [facility] NITROGEN INC INC QUANTITAT RUPA DRUG TEST 13929 LAVINIA KATE PRSMV 7 NORMA TOWNSEND MD,[facility] CHEMISTRY ANALYZERS DRUG TEST 80223 [facility] PRSMV [facility] QUAL DIR INC INC OPTICAL OBS PER DAY DRUG 54473 [facility] SCREENING 7 [facility] INC INC BENZODIAZ EPINES 1-12 ECG 52662 [facility] ROUTINE [facility] ECG INC INC W/LEAST 12 LDS TRCG ONLY W/O I&R PRQ 90014 [facility] TRLUML 7 PHYSICIAN CORONARY S GROUP STENT W/ANGIO ONE ART/BRNCH CATH PLMT 09270 [facility] L HRT & 7 PHYSICIAN ARTS S GROUP W/NJX & ANGIO IMG S&I ECHO 44769 [facility] TTHRC R-T 7 [facility] 2D INC INC W/WOM-MOD E COMPL SPEC&COLR D TECHNETIU A9502 [facility] M TC-99M 7 [facility] TETROFOSM INC INC IN DX PER STUDY DOSE CV STRS 29776 [facility] TST [facility] XERS&/OR INC INC RX CONT ECG TRCG ONLY MYOCARDIA 39913 [facility] L SPECT 7 [facility] MULTIPLE INC INC STUDIES ECG 80614 [facility] ROUTINE [facility] ECG INC INC W/LEAST 12 LDS TRCG ONLY W/O I&R DRUG TEST 23365 [facility]IA KATE PRSMV 7 NORMA TOWNSEND MD,[facility] CHEMISTRY ANALYZERS COMPREHEN 51492 [facility] KATE SIVE 7 BOBO [place]OW[place] [address] [facility] GLUTAMYLT 7 BEKAH TOWNSEND MD,PSC GAMMA BLOOD 88595 [facility] COUNT 7 DUKE TOWNSEND MD,PSC AUTO&AUTO DIFRNTL WBC BILIRUBIN 24090 [facility] K[facility] DIRECT 7 MD KRISTIAN,[place] [address] [facility] KATE PHOSPHORU 7 Myron TOWNSEND MD,PSC INORGANIC TECHNETIU A9537 [facility] M TC-99M 7 [facility] MEBROFENI INC INC N DX UP TO 15 MCI HEPATOBIL 17732 [facility] SYST [facility] IMAG INC INC INC GB W/PHARMA INTERVENJ ECG 49190 [facility] ROUTINE [facility] ECG INC INC W/LEAST 12 LDS TRCG ONLY W/O I&R ECG 95597 [facility] ROUTINE [facility] ECG INC INC W/LEAST 12 LDS TRCG ONLY W/O I&[place] [address] [facility]U ABDOMEN & 7 [facility] PELVIS INC INC W/O CONTRAST MATERIAL FINAL G9638 LEONEL LICEA REPORTS 7 MEDICAL W/O DOC IMAGING 1/[place] [address] [facility] LIPASE 7 [facility] [place] [address] [facility] S[facility] AMYLASE 7 [facility] INC INC CREATINE 54570 [facility] S[facility] KINASE 7 [facility] TOTAL INC INC BLOOD 70842 [facility] COUNT 7 [facility] COMPLETE INC INC AUTO&[place] [address] [facility] TROPONIN 7 [facility] QUANTITAT INC INC RUPA CREATINE 02340 [facility] KINASE MB 7 [facility] FRACTION INC INC ONLY COMPREHEN 55376 [facility] SIVE 7 [facility] METABOLIC INC INC PANEL FINAL G9551 LEONEL LICEA REPR ABD 7 MEDICAL IMAG STS IMAGING W/O ASS INCIDNT FND LES NTD: THER 32339 [facility] PROPH/DX 7 [facility] NJX IV INC INC PUSH SINGLE/1S T SBST/DRUG RADIOLOGI 55251 [facility] C EXAM 7 [facility] CHEST 2 INC INC VIEWS FRONTAL&L ATERAL ECG 40799 [facility] MCCLAIN ROUTINE 7 [facility] W/LEAST P 12 LDS I&R ONLY CT LUMBAR 02126 LEONEL LICEA SPINE 7 MEDICAL W/O IMAGING CONTRAST ASS MATERIAL FINAL G9551 LEONEL LICEA REPR ABD 7 MEDICAL IMAG STS IMAGING W/O ASS INCIDNT FND LES NTD: COMPREHEN 68964 [facility] SIVE 7 [facility] METABOLIC INC INC PANEL BLOOD 70583 [facility] COUNT 7 [facility] COMPLETE INC INC AUTO&AUTO DIFRNTL WBC FINAL G9638 LEONEL LICEA REPORTS 7 MEDICAL W/O DOC IMAGING 1/[place] [address] LEONEL LICEA ABDOMEN & 7 MEDICAL PELVIS IMAGING W/O ASS CONTRAST MATERIAL URNLS DIP 90165 [facility]UE [facility] STICK/TAB INC INC LET REAGENT AUTO MICROSCOP Y RADEX 16959 [place] NATH[place] SPINE 7 CERVICAL CHIROPRAC 2 OR 3 TIC CENTE VIEWS RADEX 83560 [place] SPINE 7 LUMBOSACR CHIROPRAC AL 2/3 TIC CENTE VIEWS CHIROPRAC 90588 [place] N[place] TIC 7 MANIPULAT CHIROPRAC RUPA TX TIC CENTE SPINAL 3-4 REGIONS APPL 96742 [place] NATHAN MODALITY 7 1/> AREAS CHIROPRAC ELEC TIC CENTE STIMJ UNATTENDE D DRUG TEST 66865 [facility] VERMAON PRSMV 7 [facility] QUAL DIR INC INC OPTICAL OBS PER DAY DRUG TEST 99387 LAVINIA KATE PRSMV 7 NORMA TOWNSEND MD,[facility] CHEMISTRY ANALYZERS IAADIADOO 46822 [facility] SUE [facility] INFLUENZA INC INC RADEX 60947 [facility] ABDOMEN 7 [facility] COMPL INC INC W/DCBTS&/ ERC VIEWS RADIOLOGI 44586 LEONEL ZULLY C EXAM 7 MEDICAL CHEST 2 IMAGING VIEWS ASS FRONTAL&L ATERAL DRUG TEST G0480 [facility]UE DEFINITV [address] [facility] [address] ID INC INC METH P DAY 1-7 DRUG CL DRUG TEST 34381 [facility] VERMAON PRSMV 7 [facility] QUAL DIR INC INC OPTICAL OBS PER DAY COLLECTIO 28194 [facility] N VENOUS 7 [facility] BLOOD INC INC VENIPUNCT URE HEMOGLOBI 08425 [facility] S[facility] N 7 [facility] GLYCOSYLA INC INC SONG A1C BASIC 11291 [facility] S[facility] METABOLIC 7 [facility] PANEL INC INC CALCIUM TOTAL HEPATIC 75600 [facility] S[facility] FUNCTION 7 [facility] PANEL INC INC LIPID 76169 [facility] S[facility] PANEL 7 [facility] INC INC ECG 94240 [facility] ROUTINE 7 [facility] ECG INC INC W/LEAST 12 LDS TRCG ONLY W/O I&R DRUG TEST G0480 [facility] DEFINITV [address] [facility] [address] ID INC INC METH P DAY 1-7 DRUG CL DRUG TEST 57527 [place]TE[place] SUE PRSMV 7 [facility] QUAL DIR INC INC OPTICAL OBS PER DAY BLOOD 10384 [facility] SUE COUNT 7 [facility] COMPLETE INC INC AUTO&AUTO DIFRNTL WBC COMPREHEN 45997 [facility] SIVE 7 [facility] METABOLIC INC INC PANEL CREATINE 36276 [facility] SUE KINASE MB 7 [facility] [place] [address] [facility] SUE TROPONIN 7 [facility] QUANTITAT INC INC RUPA FIBRIN 97304 [facility] DGRADJ 7 [facility] PRODUCTS INC INC D-DIMER QUAL/[place] [address] [facility] AMYLASE 7 [facility] INC INC NATRIURET 45306 [facility] IC [facility] PEPTIDE INC INC COLLECTIO 46553 [facility] N VENOUS 7 [facility] BLOOD INC INC VENIPUNCT URE CREATINE 24910 [facility] KINASE 7 [facility] [place] [address] [facility] S[facility] LIPASE 7 [facility] INC INC FINAL RPT G[address]/MRI 7 MEDICAL CHEST/NCK IMAGING /U/S NO ASS THR NOD<1.[address] [place] [address] [facility] VERMAON ANGIOGRAP 7 [facility] HY CHEST INC INC W/CONTRAS T/NONCONT RAST FINAL G9638 LEONEL DELAROSA REPORTS 7 MEDICAL W/O DOC IMAGING 1/[place] [address] LEONEL DELAROSA ABDOMEN 7 MEDICAL W/O IMAGING CONTRAST ASS MATERIAL URNLS DIP 39960 [facility] SUE [facility] STICK/TAB INC INC LET REAGENT AUTO MICROSCOP Y CT THORAX 50030 LEONEL DELAROSA 7 MEDICAL W/CONTRAS IMAGING T ASS MATERIAL ECG 45851 [facility] ROUTINE 7 [facility] ECG INC INC W/LEAST 12 LDS TRCG ONLY W/O I&R RADIOLOGI 38351 [facility] LUMPKINDevin ZULLY C EXAM 7 MEDICAL CHEST 2 IMAGING VIEWS ASS FRONTAL&L ATERAL ECG 86101 [facility] VERMAON ROUTINE 7 [facility] W/LEAST P P 12 LDS I&[place] [address] [facility] VERMAON ANGIOGRAP 7 [facility] HY INC INC ABDOMEN W/CONTRAS T/NONCONT RAST FINAL G9551 LEONEL DELAROSA REPR ABD 7 MEDICAL IMAG STS IMAGING W/O ASS INCIDNT FND LES NTD: DRUG TST G0477 [facility] PRESUMP;C 6 [facility] PBL BEING [place] [address] [facility] LIPASE 6 [facility] INC INC COLLECTIO 86047 [facility] N VENOUS 6 [facility] [place] [address] [facility] S[facility] HEPATITIS 6 [facility] B INC INC SURFACE ANTIGEN HEPATITIS 28441 [facility] S[facility] B CORE 6 [facility] ANTIBODY INC INC HBCAB TOTAL HEPATITIS 12905 [facility] Agarwal SURF 6 [facility] ANTIBODY INC INC HBSAB HEPATITIS 10488 [facility] SUE A 6 [facility] [address] [facility] SUE AMYLASE 6 [facility] INC INC HEPATITIS 86970 [facility] SUE C 6 [facility] ANTIBODY INC INC HEMOGLOBI 29771 [facility] SUE N 6 [facility] GLY[place]OS[place] [address] [facility] SUE THYROXINE 6 [facility] TOTAL INC INC COMPREHEN 89547 [facility] SIVE 6 [facility] [place] [address] [facility] S[facility] THYROID 6 [facility] STIMULATI INC INC NG HORMONE TSH BLOOD 61209 [facility] COUNT 6 [facility] COMPLETE INC INC AUTO&AUTO DIFRNTL WBC DRUG TST G0477 [facility] PRESUMP;C 6 [facility] PBL BEING INC INC READ DC OPT OBV ONLY DRUG TEST G0479 LAV[place]IA TOWNSEND 6 KRISTIAN, PRESUMP;I ,PSC NSTRUMENT ED CHEMISTRY ANLYZER ECG [address] [facility] [address] R[address] [facility] W/LEAST P 12 LDS I&[place] [address] [facility] ANGIOGRAP 6 [facility] HY CHEST INC INC W/CONTRAS T/NONCONT RAST ECG 91464 [facility] ROUTINE 6 [facility] ECG INC INC W/LEAST 12 LDS TRCG ONLY W/O I&R CT THORAX 50094 [place] ZULLY 6 [facility] W/CONTRAS IMAGING T ASS MATERIAL RADIOLOGI 67077 [facility] C 6 [facility] EXAMINATI INC INC ON CHEST [place] FRONTAL COMPREHEN 18194 [facility] SIVE 6 [facility] METABOLIC INC INC PANEL BLOOD 90680 [facility] COUNT 6 [facility] COMPLETE INC INC AUTO&[place] [address] [facility] TROPONIN 6 [facility] QUANTITAT INC INC RUPA CREATINE 84634 [facility] KINASE MB 6 [facility] FRACTION INC INC ONLY FIBRIN 09730 [facility] S[facility] DGRADJ 6 [facility] PRODUCTS INC INC D-DIMER QUAL/[place] [address] [facility] AMYLASE 6 [facility] INC INC NATRIURET 68627 [facility] IC 6 [facility] PEPTIDE INC INC COLLECTIO 38637 [facility] S[facility] N VENOUS 6 [facility] [place] [address] [facility] LIPASE 6 [facility] INC INC CREATINE 76443 [facility] S[facility] KINASE 6 [facility] TOTAL INC INC DRUG TST G0477 [facility] PRESUMP;C 6 [facility] PBL BEING [place] [address] [facility] S[facility] CERVICAL 6 [facility] SPINE W/[place] [address] [facility] SUE HEAD/BRAI 6 [facility] N W/O INC INC CONTRAST MATERIAL RADEX 24794 [facility] SHOULDER 6 [facility] COMPLETE INC INC MINIMUM 2 VIEWS THERAPEUT 82556 [facility] IC 6 [facility] PROPHYLAC INC INC TIC/DX INJECTION SUBQ/IM COLSC FLX 33486 LIN[facility] VERMAON W/RMVL 6 [facility] OF TUMOR INC [place] [address] [facility], SETTEMBRE SURG 6 [facility] GROSS&CHARLEY ROSCOPIC EXAM GLUC BLD 86009 [facility] SUE GLUC MNTR 6 [facility] DEV INC INC CLEARED FDA SPEC HOME USE ANES 63526 COMMUNITY FEEBACK LOWER 6 ANESTH INTESTINE OF THE BLUE ENDOSCOPY DISTAL DUODENUM DRUG TST G0477 [facility] SUE PRESUMP;C 6 [facility] PBL BEING INC INC READ DC OPT OBV ONLY DRUG 61402 [facility] SCREENING 6 [facility] INC INC BENZODIAZ EPINES 1-12 DRUG 44342 [facility] SCREEN 6 [facility] LIST A INC INC SINGLE DRUG CLASS METHOD COL-CHR/M 01249 [facility] S[facility] S NONDRUG 6 [facility] ANALYTE INC INC CARLINE QUAL/TODD EA SPEC COLLECTIO 85665 LINETTE SUE N VENOUS 6 [facility] BLOOD INC INC VENIPUNCT URE HEMOGLOBI 11187 [facility] SUE N 6 [facility] GLYCOS[place] [address] LINET[facility] SUE THYROXINE 6 [facility] TOTAL INC INC BLOOD 82733 LIN[facility] SUE COUNT 6 [facility] COMPLETE INC INC AUTO&AUTO DIFRNTL WBC COMPREHEN 43304 LINETTE SUE SIVE 6 [facility] [place] [address] LINETTE SUE THYROID 6 [facility] STIMULATI INC INC NG HORMONE TSH LIPID 09844 LINETTE SUE PANEL 6 [facility] INC INC PROSTATE G0103 LINETTE SUE CANCER 6 [facility] SCREENING INC INC ; PSA TEST THERAPEUT 07469 [facility] IC 6 PHYSICIAN CHARLEY PROPHYLAC S GROUP TIC/DX INJECTION SUBQ/IM INJECTION J1885 [facility] 6 PHYSICIAN CHARLEY KETOROLAC S GROUP TROMETHAM INE PER 15 MG INJECTION J1100 [facility] 6 PHYSICIAN CHARLEY DEXAMETHO S GROUP SONE SODIUM PHOSPHATE 1 MG INJECTION J1100 [facility] 6 PHYSICIAN CHARLEY DEXAMETHO S GROUP SONE SODIUM PHOSPHATE 1 MG THERAPEUT 48018 [facility] IC 6 PHYSICIAN CHARLEY PROPHYLAC S GROUP TIC/DX INJECTION SUBQ/IM THERAPEUT 72274 [facility] FR[facility] IC 6 PHYSICIAN EUG PROPHYLAC S GROUP TIC/DX INJECTION SUBQ/IM INJECTION J0696 [facility] 6 PHYSICIAN EUG CEFTRIAXO S GROUP NE SODIUM PER 250 MG INJECTION 92080 BOYD LE LB 6 MD JERMAINE, SINGLE/ML PSC T TRIGGER POINT 1/2 MUSCLES DRUG TST G0477 LIN[facility] SUE PRESUMP;C 6 [facility] PBL BEING INC INC READ DC OPT OBV ONLY DRUG TEST G0481 [facility] DEFINITV [address] [facility] [address] ID INC INC METH P DAY 8-14 DRUG CL INJECTION A9576 [facility] SUE 6 [facility] GADOTERID INC INC OL PROHANCE MULTIPACK PER ML MRI BRAIN 41970 LIN[facility] SUE BRAIN 6 [facility] STEM W/O INC INC W/CONTRAS T MATERIAL COLLECTIO 99931 [facility] SUE N VENOUS 6 [facility] BLOOD INC INC VENIPUNCT URE CREATININ 84418 LINETTE VERMAON E BLOOD 6 [place] [address] LINETTE SUE UREA 6 [facility] NITROGEN INC INC QUANTITAT RUPA MRI BRAIN 41544 [facility] SUE BRAIN 6 [facility] STEM W/O INC INC CONTRAST MATERIAL DUPLEX 25546 [facility] SUE SCAN 6 [facility] EXTRACRAN INC INC IAL ART COMPL [facility] G0463 [facility] SUE OUTPATIEN 6 [facility] T CLIN INC INC VISIT ASSESS & [place] [address] LINETTE BECKETT CO HEAD/BRAI 6 [facility] HEALTH N W/O INC DEPARTMEN CONTRAST T MATERIAL BASIC 82760 LINETTE SUE METABOLIC 6 [facility] PANEL INC INC CALCIUM TOTAL INJECTION J2405 LINETTEKING SUE 6 [facility] ONDANSETR INC INC ON HCL PER 1 MG BLOOD 76757 LIN[facility] SUE COUNT 6 [facility] COMPLETE INC INC AUTO&AUTO DIFRNTL WBC THER 96181 LINETTE SUE PROPH/DX 6 [facility] NJX IV INC INC PUSH SINGLE/1S T SBST/DRUG THERAPEUT 31177 [facility] SUE IC 6 [facility] INJECTION INC INC IV PUSH EACH NEW DRUG NJX 61550 BOYD LE LB DX/THER 6 MD JERMAINE, SBST PSC EPIDURAL/ SUBRACH CERV/THOR ACIC INJECTION J1030 [facility] SUE 6 [facility] METHYLPRE INC INC DNISOLONE ACETATE 40 MG LOCM Q9966 LIN[facility]TE SUE 200-299 6 [facility] MG/ML INC INC IODINE CONCENTRA TION PER ML FLUOR 50378 BOYD LE LB NEEDLE/CA 6 MD JERMAINE, TH PSC SPINE/PAR ASPINAL DX/THER ADDON HEPATOBIL 43818 [facility] SUE SYST 6 [facility] IMAG INC INC INC GB W/PHARMA INTERVENJ INJECTION J2805 [facility] SUE 6 [facility] SINCALIDE INC INC 5 MICROGRAM S TECHNETIU A9537 LINET[facility] SUE M TC-99M 6 [facility] MEBROFENI INC INC N DX UP [place] [address] [place] [address] [place] DELAROSA ALL ABDOMINAL 5 MEDICAL REAL IMAGING TIME ASS W/IMAGE LIMITED GLUC BLD 82750 LINETTE SUE GLUC MNTR 5 [facility] DEV INC [place] [address] LIN[facility] SUE STREPTOCO 5 [facility] CCUS INC INC GROUP A CUL BACT 46636 [facility]UE XCPT 5 [facility] URINE INC INC BLOOD/[place] [address] LIN[facility] SUE RETROPERI 5 [facility] TONEAL INC [place] [address] [place] ZULLY RETROPERI 5 MEDICAL BUBBA TONEAL IMAGING REAL TIME ASS W/IMAGE LIMITED APPL 45911 LIN[facility] SUE MODALITY 5 [facility] 1/> AREAS INC INC 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 L APPLICATI 91054 [facility] S[facility] ON 5 [facility] MODALITY INC INC 1/> AREAS HOT/COLD PACKS APPL 82398 LINETTE SUE MODALITY 5 [facility] 1/> AREAS INC INC ULTRASOUN D EA 15 MIN E-STIM G0283 LINETTE SUE 1/> AREAS 5 [facility] OTH THAN INC INC WND CARE PART TX PLAN PHYSICAL 56640 [facility] SUE THERAPY 5 [facility] EVALUATIO INC INC N OPHTH 76815 [facility] 5 XM&EVAL COMPRHNSV ESTAB PT 1/> INJECTION BOYD DEAN MD, SINGLE/ML PSC T TRIGGER POINT 1/2 MUSCLES INJECTION J1030 [facility] SUE 5 [facility] METHYLPRE INC INC DNISOLONE ACETATE 40 MG INJECTION 80465 LINETTEKING SUE 5 [facility] SINGLE/ML INC INC T TRIGGER POINT 3/> MUSCLES PSYCHIATR 60387 COMPREHEN MINEER IC 5 D INC EDELMIRA DIAGNOSTI C EVALUATIO N INJECTION 86587 [facility] SUE 5 [facility] SINGLE/ML INC INC T TRIGGER POINT 3/> MUSCLES INJECTION J1030 [facility] SUE 5 [facility] METHYLPRE INC INC DNISOLONE ACETATE 40 MG INJECTION 01352 FREDY Fabian MD SINGLE/ML T TRIGGER POINT 1/[address] [place] [address] [facility] HEAD/BRAI 5 MEDICAL DAREN N W/O IMAGING CONTRAST ASS MATERIAL RADEX 45196 [facility] SPINE 5 MEDICAL DAREN THORACIC IMAGING [address] [place] [address] [facility] CERVICAL 5 MEDICAL DAREN SPINE W/O IMAGING CONTRAST ASS MATERIAL ROGELIO 70403 LINETTE LEIVA POST-VOID 5 [facility] RESIDUAL P URINE&/BL [facility] G0463 LIN[facility] SUE OUTPATIEN 5 [facility] T CLIN INC INC VISIT ASSESS & MGMT [place] ECG 66106 LINETTE LINETTE ROUTINE 5 [facility] ECG INC INC W/LEAST 12 LDS TRCG ONLY W/O I&R ECG 51608 [facility] ROUTINE 5 CULAR MAT ECG CONSULTAN W/LEAST TS O 12 LDS I&R ONLY ECHO 00532 LINETTE LINETTE TTHRC R-T 5 [facility] 2D INC INC W/WOM-MOD E COMPL SPEC&COLR D CV STRS 67490 [facility] FALLU TST 5 PHYSICIAN VENITA XERS&/OR S GROUP RX CONT ECG W/O I&R CV STRS 58226 [facility] SUE TST 5 [facility] XERS&/OR INC INC RX CONT ECG TRCG ONLY MYOCARDIA 85669 LINETTE SUE L SPECT 5 [facility] MULTIPLE INC INC STUDIES TECHNETIU A9500 LIN[facility]TE SUE M TC-99M 5 [facility] SESTAMIBI INC INC DX PER STUDY DOSE ECG 67426 LIN[facility] SUE ROUTINE 5 [facility] ECG INC INC W/LEAST 12 LDS TRCG ONLY W/O I&R ECG 48996 [facility]ARDIOVAS CHAYO ROUTINE 5 CULAR MAT ECG CONSULTAN W/LEAST TS O 12 LDS I&R ONLY LIPID 28687 [facility] SUE PANEL 5 [facility] INC INC BASIC 09395 LIN[facility] SUE METABOLIC 5 [facility] [place] [address] LINETTE SUE THYROXINE 5 [facility] [place] [address] LINETTE SUE THYROID 5 [facility] STIMULATI INC INC NG HORMONE TSH COMPREHEN 03890 LIN[facility] SUE SIVE 5 [facility] METABOLIC INC INC PANEL BLOOD 54955 LIN[facility] SUE COUNT 5 [facility] COMPLETE INC INC AUTO&AUTO DIFRNTL WBC CREATINE 97147 LINETTE SUE KINASE MB 5 [facility] [address] LINETTE SUE TROPONIN 5 [facility] QUANTITAT INC INC RUPA CREATINE 40842 [facility] SUE KINASE 5 [facility] TOTAL INC INC CRITICAL 32449 LINETTE SUE CARE 5 [facility] ED P P PATIENT INIT 30-74 MIN AMB A0427 [facility] SERVICE 5 [facility] AMBULANCE ALS SERVICE SERVICE EMERGENCY TRANSPORT LEVEL 1 RADIOLOGI 22545 LEONEL LICEA C 5 MEDICAL DAREN EXAMINATI IMAGING [place] [address] LEONEL LICEA HEAD/BRAI 5 MEDICAL DAREN N W/O IMAGING CONTRAST ASS MATERIAL ECG 06500 [facility] SUE ROUTINE 5 [facility] ECG INC INC W/LEAST 12 LDS TRCG ONLY W/O I&R GROUND A0425 [facility] 5 AMBULANCE AMBULANCE PER SERVICE SERVICE STATUTE MILE ECG 25367 LINETTE SUE ROUTINE 5 [facility] W/LEAST P P 12 LDS I&[place] [address] [facility] ZULLY ANGIOGRAP 4 MEDICAL BUBBA HY IMAGING ABDOMEN ASS W/CONTRAS T/NONCONT RAST LOCM Q9967 LINETTE SUE 300-399 4 [facility] MG/ML INC INC IODINE CONCENTRA TION PER ML CREATININ 60123 LINETTE SUE E BLOOD 4 [facility] INC INC COLLECTIO 56724 LINETTE SUE N VENOUS 4 [facility] BLOOD [place] [address] LINETTE SUE UREA 4 [facility] [place] [address] LINETTE SUE HEAD/BRAI 4 [facility] N W/O INC INC CONTRAST MATERIAL INJECTION J0696 [facility] 4 PHYSICIAN CHARLEY CEFTRIAXO S GROUP NE SODIUM PER 250 MG INJECTION J1040 [facility] 4 PHYSICIAN PHYSICIAN METHYLPRE S GROUP S GROUP DNISOLONE ACETATE 80 MG THERAPEUT 27037 [facility] IC 4 PHYSICIAN CHARLEY PROPHYLAC S GROUP TIC/DX INJECTION SUBQ/IM RADIOLOGI 00696 [place] ZULLY C 4 MEDICAL BUBBA EXAMINATI IMAGING ON CHEST ASS SINGLE VIEW FRONTAL FOR DIAB A5512 [facility] ONLY MX 4 DNSITY INSRT DIR FORMD PRFAB EA DIAB ONLY A5500 [facility] FIT CSTM 4 PREP&SPL SHOE MX DNSITY INSRT THERAPEUT 76068 [facility] SUE IC 4 [facility] PROPHYLAC INC INC TIC/DX INJECTION SUBQ/IM CT LUMBAR 51603 ZULLY ZULLY SPINE 4 BUBBA BUBBA W/O CONTRAST MATERIAL THER 96178 LINETTE SUE PROPH/DX 4 [facility] NJX IV INC INC PUSH SINGLE/1S T SBST/[place] [address] ZULLY ZULLY ABDOMEN & 4 BUBBA BUBBA PELVIS W/O CONTRST 1/> BODY RE ECG 55273 LINETTE SUE ROUTINE 4 [facility] ECG INC INC W/LEAST 12 LDS TRCG ONLY W/O I&[place] [address] LINETTE SUE ABDOMEN & 4 [facility] PELVIS INC INC W/O CONTRAST MATERIAL BLOOD 04297 LIN[facility]TE SUE COUNT 4 [facility] COMPLETE INC INC AUTO&AUTO DIFRNTL WBC COMPREHEN 77815 LINETTE SUE SIVE 4 [facility] [place] [address] LINETTE SUE TROPONIN 4 [facility] QUANTITAT INC INC RUPA CREATINE 45749 LINETTE SUE KINASE MB 4 [facility] FRACTION INC INC ONLY THROMBOPL 86636 LINETTE SUE ASTIN 4 [facility] TIME INC INC PARTIAL PLASMA/WH OLE BLOOD CREATINE 39928 LINETTE SUE KINASE 4 [facility] TOTAL INC INC PROTHROMB 23512 LINETTE SUE IN TIME 4 [facility] INC INC FIBRIN 40981 LINETTE SUE DGRADJ 4 [facility] PRODUCTS INC INC D-DIMER QUAL/SEMI TODD THER 39355 LINETTE SUE PROPH/DX 4 [facility] NJX IV INC INC PUSH SINGLE/1S T SBST/DRUG RADIOLOGI 69465 LINETTE SUE C EXAM 4 [facility] CHEST 2 INC INC VIEWS FRONTAL&L ATERAL ECG 09082 [facility] ROUTINE 4 BRO BRO ECG W/LEAST 12 LDS I&R ONLY DRUG SCR G0434 VITA HAM VITA HAM NOT 4 CHROMATOG RAPHIC; ANY NUMBER PT ENC COMPREHEN 54046 LINETTE SUE SIVE 3 [facility] METABOLIC INC INC PANEL BLOOD 81760 LIN[facility] SUE COUNT 3 [facility] COMPLETE INC INC AUTO&[place] [address] LINETTE SUE THYROID 3 [facility] STIMULATI INC INC NG HORMONE TSH INJECTION J3301 MCKEMIE MCKEMIE 3 JR AREN YOUNGER TRIAMCINO LONE ACETONIDE NOS 10 MG IM ADM 14413 MCKEMIE MCKEMIE PRQ ID 3 JR AREN YOUNGER SUBQ/IM NJXS EA VACCINE IIV3 31478 MCKEMIE MCKEMIE VACCINE 3 JR AREN YOUNGER SPLIT VIRUS 0.5 ML DOSAGE IM USE IM ADM 10396 MCKEMIE MCKEMIE PRQ ID 3 JR AREN YOUNGER SUBQ/IM NJXS 1 VACCINE ADMINISTR G0008 MCKEMIE MCKEMIE ATION OF 3 JR AREN YOUNGER INFLUENZA VIRUS VACCINE THERAPEUT 14210 LINETTE SUE IC 3 [facility] PROPHYLAC INC INC TIC/DX INJECTION SUBQ/IM LIPID 29042 [facility] SUE PANEL 3 [facility] INC INC COMPREHEN 09912 LINETTE SUE SIVE 3 [facility] [place] [address] LINETTE SUE THYROID 3 [facility] STIMULATI [place] [address] LINETTE SUE UREA 3 [facility] NITROGEN INC INC QUANTITAT RUPA CREATININ 16276 LINETTE SUE E BLOOD 3 [facility] INC INC MRI BRAIN 91283 LINETTE SUE BRAIN 3 [facility] STEM W/O INC INC W/CONTRAS T MATERIAL 3D 96395 LINETTE SUE RENDERING 3 [facility] W/INTERP INC INC & POSTPROCE SS SUPERVISI ON MRI 96628 LINETTE SUE SPINAL 3 [facility] CANAL INC INC CERVICAL W/O CONTRAST MATRL INJECTION A9576 [facility]TE SUE 3 [facility] GADOTERID INC INC OL PROHANCE MULTIPACK PER ML APPLICATI 95970 LINETTE SUE ON 3 [facility] MODALITY INC INC 1/> AREAS HOT/COLD PACKS APPL 02025 LINETTEKING SUE MODALITY 3 [facility] 1/> AREAS INC INC ELEC STIMJ UNATTENDE D APPL 56854 LINETTE LINETTE MODALITY 3 [facility] 1/> AREAS INC INC 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 L APPL 29189 LINETTE LINETTE MODALITY 3 [facility] 1/> AREAS INC INC 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 L APPL 46893 LINETTE VERMAON MODALITY 3 [facility] 1/> AREAS INC INC ELEC STIMJ UNATTENDE D APPLICATI 43949 LIN[facility] SUE ON 3 [facility] MODALITY INC INC 1/> AREAS HOT/COLD PACKS APPL 23303 LINETTE SUE MODALITY 3 [facility] 1/> AREAS INC INC ULTRASOUN D EA 15 MIN PHYSICAL 29770 LINETTE SUE THERAPY 3 [facility] EVALUATIO INC INC N THERAPEUT 36507 LINETTE SUE IC 3 [facility] PROPHYLAC INC INC TIC/DX INJECTION SUBQ/IM INJECTION J3301 [facility] SUE 3 [facility] TRIAMCINO INC INC LONE ACETONIDE NOS 10 [place] [address] LINETTE SUE CLOSTRIDI 3 [facility] UM INC INC DIFFICILE TOXIN CUL BACT 71993 LINETTE SUE STOOL 3 [facility] AEROBIC INC INC ISOL SALMONELL A&SHIGELL OVA&DERRICK 10216 LINETTE SUE ITES 3 [facility] DIRECT INC INC SMEARS CONCENTRA TION & ID BLOOD 83208 LINETTE SUE OCCULT 3 [facility] PEROXIDAS INC INC E ACTV QUAL FECES 1-3 SPEC SMR PRIM 24668 LIN[facility]TE SUE SRC 3 [facility] GRAM/GIEM INC INC SA STAIN BCT FUNGI/ELBA L CREATINE 64881 LINETTE SUE KINASE 3 [facility] [place] [address] LINETTE SUE TROPONIN 3 [facility] QUANTITAT INC INC RUPA CREATINE 87693 LINETTE SUE KINASE MB 3 [facility] FRACTION INC INC ONLY ECG 99668 LIN[facility]TE SUE ROUTINE 3 [facility] ECG INC INC W/LEAST 12 LDS TRCG ONLY W/O I&R RADEX 95419 ZULLY ZULLY SHOULDER 3 BUBBA BUBBA COMPLETE MINIMUM 2 VIEWS RADIOLOGI 15799 ZULLY ZULLY C EXAM 3 BUBBA BUBBA CHEST 2 VIEWS FRONTAL&L ATERAL ECG 88531 JOHNY MCCLAIN ROUTINE 3 CAMILLA CAMILLA ECG W/LEAST 12 LDS I&R ONLY URNLS DIP 32962 MCKEMIE MCKEMIE 3 JR AREN JR AREN STICK/TAB LET RGNT NON-AUTO W/[place] [address] ZULLY ZULLY ABDOMEN & 3 BUBBA BUBBA PELVIS W/O CONTRAST MATERIAL ECG 59587 LINETTE SUE ROUTINE 3 [facility] ECG INC INC W/LEAST 12 LDS TRCG ONLY W/O I&R URNLS DIP 22124 [facility]TE SUE 3 [facility] STICK/TAB INC INC LET REAGENT AUTO MICROSCOP Y CREATINE 43760 LINETTE SUE KINASE MB 3 [facility] [place] [address] LINETTE SUE TROPONIN 3 [facility] QUANTITAT INC INC RUPA INJECTION J2405 LINETTE SUE 3 [facility] ONDANSETR INC INC ON HCL PER 1 MG COMPREHEN 07378 LINETTE SUE SIVE 3 [facility] METABOLIC INC INC PANEL BLOOD 39946 LINETTE SUE COUNT 3 [facility] COMPLETE INC INC AUTO&AUTO DIFRNTL WBC CREATINE 30630 LIN[facility]TE [facility]UE KINASE 3 [facility] [place] [address] LINETTE SUE LIPASE 3 [place] [address] LINETTE SUE AMYLASE 3 [facility] INC INC ECG 04536 [facility] ROUTINE 3 CHARLEY CHARLEY ECG W/LEAST 12 LDS I&[place] [address] LINETTE SUE INFUSION 3 [facility] THERAPY/P INC INC ROPHYLAXI S /DX 1ST TO 1 HR THERAPEUT 03207 LINETTE SUE IC 3 [facility] INJECTION INC INC IV PUSH EACH NEW DRUG 3D 48580 LINETTE SUE RENDERING 3 [facility] INC INC W/INTERP& POSTPROC DIFF WORK STATION PROSTATE G0103 LINETTE SUE CANCER 3 [facility] SCREENING INC INC ; PSA TEST BLOOD 79012 LINETTE SUE COUNT 3 [facility] COMPLETE INC INC AUTO&AUTO DIFRNTL WBC COMPREHEN 70690 LINETTE SUE SIVE 3 [facility] METABOLIC INC INC PANEL LIPID 63902 LINETTE SUE PANEL 3 [facility] INC INC ECG 29313 LINETTE CRMIE ROUTINE 3 [facility] W/LEAST P 12 LDS I&R ONLY 3D 25038 LINETTE SUE RENDERING 3 [facility] INC INC W/INTERP& POSTPROC DIFF WORK STATION ECG 08551 [facility] ANDERS ROUTINE 3 CHARLEY CHARLEY ECG W/LEAST 12 LDS I&R ONLY URNLS DIP 45341 LINETTE SUE 3 [facility] STICK/TAB INC INC LET REAGENT AUTO MICROSCOP Y ECG 47717 LINETTE SUE ROUTINE 3 [facility] ECG INC INC W/LEAST 12 LDS TRCG ONLY W/O I&R RADIOLOGI 02150 LINETTE SUE C 3 [facility] EXAMINATI INC [place] [address] LINETTE SUE ABDOMEN & 3 [facility] PELVIS INC INC W/O CONTRAST MATERIAL COMPREHEN 18817 LINETTE SUE SIVE 3 [facility] METABOLIC INC INC PANEL BLOOD 46588 LIN[facility]TE SUE COUNT 3 [facility] COMPLETE INC INC AUTO&AUTO DIFRNTL WBC CREATINE 41694 LINETTE SUE KINASE MB 3 [facility] [place] [address] LINETTE SUE TROPONIN 3 [facility] [place] [address] ILNETTE SUE AMYLASE 3 [facility] INC INC BLOOD 14629 LINETTE SUE OCCULT 3 [facility] PEROXIDAS INC INC E ACTV QUAL FECES 1-3 [place] [address] LINETTE SUE LIPASE 3 [facility] INC INC CREATINE 85460 LINETTE SUE KINASE 3 [facility] TOTAL INC INC IAADI 59391 LINETTE SUE INFLUENZA 3 [facility] B VIRUS INC INC IAADI 61613 LINETTE SUE INFFLUENZ 3 [facility] A A VIRUS INC INC CYSTOURET 59605 LEIVA LEIVA HROSCOPY 2 ART ART ANES 56064 [facility] TRANSURET 2 ANESTH LOLY HRAL OF THE W/URETHRO BLUE CYSTOSCOP Y NOS CYSTO 56387 LINETTE SUE BLADDER 2 [facility] W/URETERA INC INC L CATHETERI ZATION UROGRAPHY 24053 LEONEL HALLCHER IV W/WO 2 MEDICAL BUBBA KUB W/WO IMAGING TOMOGRAPH ASS Y URETHROCY 02101 LINETTE SUE STOGRAPHY 2 [facility] INC [place] RETROGRAD [place] RS&[place] [address] LINETTE SUE UREA 2 [facility] NITROGEN INC INC QUANTITAT RUPA CREATININ 00710 LINETTE SUE E BLOOD 2 [facility] INC INC URNLS DIP 35213 LEIVA LEIVA 2 ART ART STICK/TAB LET RGNT NON-AUT[place] W/[place] [address] LINETTE SUE ABDOMEN & 2 [facility] PELVIS INC INC W/O CONTRST 1/> BODY RE LOCM Q9967 LINETTE SUE [phone] [facility] MG/ML INC INC [place]OD[place] [address] LINETTE SUE TESTOSTER 2 [facility] ONE TOTAL INC INC BASIC 09099 LINETTE SUE METABOLIC 2 [facility] PANEL INC INC CALCIUM TOTAL PROSTATE [id number] LINETTE SUE CANCER 2 [facility] SCREENING INC INC ; PSA TEST URNLS DIP 69208 LEIVA LEIVA 2 ART ART STICK/TAB LET RGNT NON-[place] [address] ZULLY ZULLY RETROPERI 2 BUBBA BUBBA TONEAL REAL TIME W/IMAGE COMPLETE URNLS DIP 58253 JAMA YUN 2 NAN NAN STICK/TAB LET RGNT NON-AUTO W/O MICRSCP COMPREHEN 33750 LINETTE SUE SIVE 2 [facility] METABOLIC INC INC PANEL HEMOGLOBI 74414 LINETTE SUE N 2 [facility] GLYCOSYLA INC INC SONG A1C LIPID 27952 LINETTE SUE PANEL 2 [facility] INC INC URNLS DIP 46958 JAMA YUN 2 NAN NAN STICK/TAB LET RGNT NON-AUTO W/O MICRSCP OPHTHALMO 16364 NICK ROMERO SCPY 2 JAM JAM EXTENDED RETINAL DRAWING I&R 1ST DETERMINA 67520 NICK ROMERO TION 2 JAM JAM REFRACTIV E STATE MYOCARDIA 83464 LAUREN FALLUJI L SPECT 2 VENITA VENITA MULTIPLE STUDIES MYOCARDIA 85855 LINETTE SUE L SPECT 2 [facility] MULTIPLE INC INC STUDIES CV STRS 40788 SELMA HAHN DONNIE TST 2 XERS&/OR RX CONT ECG W/O I&R CV STRS 95841 LINETTE SUE TST 2 [facility] XERS&/OR INC INC RX CONT ECG TRCG ONLY TECHNETIU A9502 LINETTE Barrientos TC-99M 2 [facility] TETROFOSM INC INC IN DX PER STUDY DOSE CV STRS 81012 LINETTE SUE TST [address] [facility] HOSPITAL RX CONT P P ECG I&R ONLY [facility] G0378 LINETTE SUE OBSERVATI 2 [facility] ON INC INC SERVICE PER HOUR OBSERVATI 32933 JOHNY MCCALIN ON CARE 2 [facility] [place] [address] LINETTE SUE TROPONIN 2 [facility] QUANTITAT INC INC RUPA CREATINE 20412 LINETTE LINETTE KINASE MB 2 [facility] FRACTION INC INC ONLY CREATINE 70047 LINETTE LINETTE KINASE 2 [facility] TOTAL INC INC CREATINE 61717 LINETTE SUE KINASE 2 [facility] [place] [address] LINETTE LINETTE LIPASE 2 [facility] INC INC CREATINE 25149 LINETTE LINETTE KINASE MB 2 [facility] [place] [address] LINETTE SUE TROPONIN 2 [facility] QUANTITAT INC INC RUPA COMPREHEN 17832 LINETTE SUE SIVE 2 [facility] METABOLIC INC INC PANEL BLOOD 55267 LINETTE SUE COUNT 2 [facility] COMPLETE INC INC AUTO&AUTO DIFRNTL [facility] G0378 LINETTE SUE OBSERVATI 2 [facility] ON INC INC SERVICE PER HOUR BASIC 42692 LINETTE VERMAON METABOLIC 2 [facility] PANEL INC INC CALCIUM TOTAL INITIAL 77937 MCKEMIE MCKEMIE OBSERVATI 2 JR AREN JR AREN ON CARE/DAY 30 MINUTES ECG 89485 LINETTE SUE ROUTINE 2 [facility] ECG INC INC W/LEAST 12 LDS TRCG ONLY W/O I&R 3D 85423 LINETTE SUE RENDERING 2 [facility] W/INTERP INC INC & [place] [address] LEONEL ZULLY HEAD/BRAI 2 MEDICAL BUBBA N W/O IMAGING CONTRAST ASS MATERIAL RADIOLOGI 56143 LINETTE SUE C 2 [facility] [facility] EXAMINATI INC INC ON CHEST SINGLE VIEW FRONTAL CT ORBIT [address] LEONEL ZULLY SELLA/POS 2 [facility] T IMAGING FOSSA/EAR ASS W/O CONTRAST MATRL RHYTHM 94856 LINETTE SUE ECG 1-3 2 [facility] LEADS INC INC TRACING ONLY W/O I&R PRESSURIZ 94200 LINETTE SUE ED/NONPRE 2 [facility] SSURIZED INC INC INHALATIO N TREATMENT ECG 04135 BETH CAMPOS ROUTINE 2 III AREN III AREN ECG W/LEAST 12 LDS I&R ONLY ADJT TIS 01330 ODALYS MORROW LB TRNSFR/RE 2 ARRGMT E/N/E/L DFCT 10 SQ CM/< SUTR WND 89608 ODALYS MORROW LB EYELID/MA 2 RGIN/TARS US/CONJUN C FULL THICK MOHS 02398 EDGE DONNIE EDGE DONNIE MICROGRAP 2 HIC H/N/H/F/G 1ST STAGE 5 BLOCKS ANES 47675 [place] MAJORS G INTEG 2 ANESTHESI [facility] [facility] [employer] L NRV HEAD NECK&POST ERIOR TRUNK HEMOGLOBI 63208 LINETTE SUE N 2 [facility] GLYCOSYLA INC INC SONG A1C COMPREHEN 62240 LINETTE SUE SIVE 2 [facility] METABOLIC INC INC PANEL BLOOD 71082 LINETTE SUE COUNT 2 [facility] COMPLETE INC INC AUTO&AUTO DIFRNTL WBC LIPID 66866 LINETTE SUE PANEL 2 [place] [address] LINETTE SUE HEAD/BRAI 2 [facility] N W/O INC INC CONTRAST MATERIAL URNLS DIP 46034 LINETTE SUE 2 [facility] STICK/TAB INC INC LET REAGENT AUTO MICROSCOP Y 3D 71265 LINETTE SUE RENDERING 2 [facility] W/INTERP INC INC & POSTPROCE SS SUPERVISI ON ECG 46622 LINETTE SUE ROUTINE 2 [facility] ECG INC INC W/LEAST 12 LDS TRCG ONLY W/O I&R BASIC 64212 LINETTE SUE METABOLIC 2 [facility] PANEL INC INC CALCIUM TOTAL BLOOD 84646 LINETTE SUE COUNT 2 [facility] COMPLETE INC INC AUTO&AUTO DIFRNTL WBC CREATINE 73640 LINETTE SUE KINASE MB 2 [facility] [place] [address] LINETTE SUE TROPONIN 2 [facility] QUANTITAT INC INC RUPA CREATINE 63460 LINETTE SUE KINASE 2 [facility] TOTAL INC INC ECG 43905 ODELLMINNA ODELLHRMAN ROUTINE 2 III AREN III AREN ECG W/LEAST 12 LDS I&R ONLY RHYTHM 91814 LINETTE LINETTE ECG 1-3 2 [facility] LEADS INC INC TRACING ONLY W/O I&[place] [address] ZULLY ZULLY MAXILLOFA 2 BUBBA BUBBA CIAL W/O CONTRAST MATERIAL RADIOLOGI 64607 ZULLY ZULLY C EXAM 2 BUBBA BUBBA CHEST 2 VIEWS FRONTAL&L ATERAL PRESSURIZ 37645 LINETTE SUE ED/NONPRE 1 [facility] SSURIZED INC INC INHALATIO N TREATMENT ECG 80965 BARAHONA MICHELLE BARAHONA MICHELLE ROUTINE 1 ECG W/LEAST 12 LDS I&R ONLY RHYTHM 13353 LINETTE SUE ECG 1-3 1 [facility] LEADS INC INC TRACING ONLY W/O I&R CREATINE 89847 LINETTE SUE KINASE 1 [facility] [place] [address] LINETTE SUE TROPONIN 1 [facility] QUANTITAT INC INC RUPA CREATINE 83370 LINETTE SUE KINASE MB 1 [facility] FRACTION INC INC ONLY BLOOD 58450 LINETTE SUE COUNT 1 [facility] COMPLETE INC INC AUTO&AUTO DIFRNTL WBC COMPREHEN 71003 LINETTE SUE SIVE 1 [facility] METABOLIC INC INC PANEL ECG 62845 LINETTE SUE ROUTINE 1 [facility] ECG INC INC W/LEAST 12 LDS TRCG ONLY W/O I&R RADIOLOGI 92021 LEONEL ANDREA C 1 MEDICAL BUB[facility] EXAMINATI IMAGING ON CHEST ASS SINGLE VIEW FRONTAL EXC 29363 ODALYS LB ODALYS LB LESION 1 EYELID W/O CLSR/W/SI MPLE DIR CLOSURE INCISIONA 59045 ODALYS LB ODALYS LB L BIOPSY 1 EYELID SKIN & LID MARGIN THERAPEUT 82736 LICKING LICKING IC 1 [facility] PROPHYLAC INTERNAL INTERNAL TIC/DX MED MED INJECTION SUBQ/IM XTRNL 81296 ODALYS LB ODALYS LB OCULAR 1 PHOTOG W/I&R [facility] MEDICAL PROGRE OPHTH 27340 ISHA [facility] MEDICAL 1 VISION XM&EVAL COMPRHNSV ESTAB PT 1/> [place] [address] [place] LENA ABDOMINAL 1 [facility] REAL CLINIC [place] PSC W/[place] [address] NEW LENA RETROPERI 1 [facility] TONEAL CLINIC REAL TIME PSC W/IMAGE LIMITED LIPID 69619 COMBINED COMBINED PANEL 1 PHYSICIAN PHYSICIAN S LA S LA GENERAL 71561 COMBINED COMBINED HEALTH 1 PHYSICIAN PHYSICIAN PANEL S LA S LA HEMOGLOBI 32066 COMBINED COMBINED N 1 PHYSICIAN PHYSICIAN GLYCOSYLA S LA S LA SONG A1C 3D 25916 V[place]IA ZULLY RENDERING 1 MEDICAL [facility] W/INTERP IMAGING & ASS POSTPROCE SS SUPERVISI ON MRI BRAIN 10438 [place] ZULLY BRAIN 1 MEDICAL [facility] STEM W/O IMAGING CONTRAST ASS MATERIAL MRI 21149 VIR[place]IA ZULLY SPINAL 1 [facility] CANAL IMAGING CERVICAL ASS W/O CONTRAST MATRL RADIOLOGI 61265 VIR[place]IA ZULLY C EXAM 1 MEDICAL [facility] CHEST 2 IMAGING VIEWS ASS FRONTAL&L ATERAL ECG 23949 VOLODYMYR CAMPOS ROUTINE 1 EMERGENCY III AREN ECG SERVICES W/LEAST 12 LDS I&[place] [address] V[place]IA ZULLY HEAD/BRAI 1 MEDICAL [facility] N W/O IMAGING CONTRAST ASS MATERIAL 3D 89427 VIR[place]IA ZULLY RENDERING 1 MEDICAL [facility] W/INTERP IMAGING & ASS POSTPROCE SS SUPERVISI ON ECG 57782 LINETTE SUE ROUTINE 1 [facility] ECG INC INC W/LEAST 12 LDS TRCG ONLY W/O I&R BASIC 09905 LINETTE SUE METABOLIC 1 [facility] PANEL INC INC CALCIUM TOTAL CREATINE 64049 LINETTE SUE KINASE 1 [facility] TOTAL INC INC BLOOD 16846 LINETTE SUE COUNT 1 [facility] COMPLETE INC INC AUTO&[place] [address] LINETTE SUE TROPONIN 1 [facility] QUANTITAT INC INC RUPA CREATINE 32869 LINETTE SUE KINASE MB 1 [facility] FRACTION INC INC ONLY BLOOD 58092 LINETTE SUE COUNT 1 [facility] COMPLETE INC INC AUTO&AUTO DIFRNTL WBC BASIC 42230 LINETTE SUE METABOLIC 1 [facility] PANEL INC INC CALCIUM TOTAL LIPID 12031 LINETTE SUE PANEL 1 [facility] INC INC ECHO 88529 LINETTE SUE TTHRC R-T 1 [facility] 2D INC INC W/WOM-MOD E COMPL SPEC&COLR D OTHER 4513 LINETTE LINETTE ENDOSCOPY 1 [facility] [place] [address] LINETTE SUE INFUSION 1 [facility] THERAPY INC INC PROPHYLAX IS/DX EA HOUR ESOPHAGOG 61221 Marbella ADAME ASTRODUOD 1 DEEP ARREOLA MD [facility] TRANSORAL DIAGNOSTI C SWALLOWIN 54154 LEONEL MILLERUTCHER G FUNCJ 1 MEDICAL [facility] W/CINERAD IMAGING IOGRAPY/V ASS IDRADIOG AMB A0422 DAVID HERNANDEZ OXYGEN&O2 1 [facility] SUPPLIES SERVICE SERVICE LIFE SUSTAININ G SITUATION BASIC 55056 LINETTE SUE METABOLIC 1 [facility] [place] [address] LEONEL ANDREA ABDOMEN & 1 MEDICAL B[facility] PELVIS IMAGING W/O ASS CONTRAST MATERIAL AMB A0427 DAVID HERNANDEZ SERVICE 1 [facility] AMB[facility]ANCE ALS SERVICE SERVICE EMERGENCY TRANSPORT LEVEL 1 BLOOD 26069 LINETTE SUE COUNT 1 [facility] COMPLETE INC INC AUTO&AUTO DIFRNTL WBC URNLS DIP 33972 LINETTE SUE 1 [facility] STICK/TAB INC INC LET REAGENT AUTO MICROSCOP Y 3D 12556 LEONEL ZULLY RENDERING 1 [facility] W/INTERP IMAGING & [place] [address] LEONEL ANDREA HEAD/BRAI 1 MEDICAL [facility]UB[facility] N W/O IMAGING CONTRAST ASS MATERIAL ECG 23573 LINETTE SUE ROUTINE 1 [facility] ECG INC INC W/LEAST 12 LDS TRCG ONLY W/O I&R ALS A0398 DAVID HERNANDEZ ROUTINE 1 [facility]ANCE AMBULANCE DISPOSABL SERVICE SERVICE E SUPPLIES GROUND A0425 DAVID HERNANDEZ MILEAGE 1 [facility]ANCE AMBULANCE PER SERVICE SERVICE STATUTE MILE RADIOLOGI 71838 LEONEL ANDREA C 1 MEDICAL [facility]UBBA EXAMINATI IMAGING ON CHEST ASS SINGLE VIEW FRONTAL CREATINE 01415 LINETTE SUE KINASE MB 1 [facility] [place] [address] LINETTE SUE TROPONIN 1 [facility] QUANTITAT INC INC RUPA CREATINE 86813 LINETTE SUE KINASE 1 [facility] TOTAL INC INC 3D 08765 LINETTE SUE RENDERING 1 [facility] INC INC W/INTERP& [place] DI[place] [address] LINETTE SUE INFUSION 1 [facility] THERAPY/P INC INC ROPHYLAXI S /DX 1ST TO 1 HR ECG 14619 LINETTE CRMIHira ROUTINE 1 [facility] W/LEAST P 12 LDS I&R ONLY SYPHILIS 46151 LINETTE SUE TEST 1 [facility] NON-TREPO INC INC NEMAL ANTIBODY QUAL SEDIMENTA 62032 LINETTE SUE TION RATE 1 [facility] [place] [address] LINETTE SUE THYROID 1 [facility] STIMULATI INC INC NG HORMONE TSH COMPREHEN 13271 LINETTE SUE SIVE 1 [facility] METABOLIC INC INC PANEL BLOOD 56437 LINETTE SUE COUNT 1 [facility] COMPLETE INC INC AUTO&AUTO DIFRNTL WBC CUL BACT 51295 LINETTE SUE AEROBIC 1 [facility] ADDL INC INC METHS DEFINITIV E EA ISOL CUL BACT 82328 LINETTE SUE XCPT 1 [facility] URINE INC INC BLOOD/STO OL AEROBIC ISOL SUSCEPTIB 36628 LINETTEKING SUE LTY STDY 1 [facility] ANTIMICRB INC INC IAL MICRO/[place] [address] LINETTE SUE HEAD/BRAI 0 [facility] N W/O INC INC CONTRAST MATERIAL 3D 34767 LINETTE SUE RENDERING 0 [facility] INC INC W/INTERP& POSTPROC DIFF WORK STATION INITIAL 07234 MARTHAEVELIODevin MARTHASHY INPATIENT 0 JAROD OLIVERA CONSULT NEW/ESTAB PT 55 MIN LARYNGOSC 63955 SAM FLORESY OPY 0 JAROD OLIVERA FLEXIBLE DIAGNOSTI C AMB A0422 DAVID HERNANDEZ OXYGEN&O2 0 [facility]ANCE SUPPLIES SERVICE [place] [address] [place] ZLULY ANGIOGRAP 0 [facility] HY CHEST IMAGING W/CONTRAS ASS T/NONCONT RAST AMB A0427 DAVID HERNANDEZ SERVICE 0 [facility] AMBULANCE ALS SERVICE SERVICE EMERGENCY TRANSPORT LEVEL 1 [facility]I 23512 [facility] EXAMINATI IMAGING ON CHEST ASS SINGLE VIEW FRONTAL GROUND A0425 DAVID HERNANDEZ MILEAGE 0 [facility]ANCE AMBULANCE PER SERVICE SERVICE STATUTE MILE MYOCARDIA 73090 [facility] FALLUJI L SPECT 0 PHYSICIAN VENITA MULTIPLE S GROUP STUDIES 30202 [facility] REAL TIME PSC W/IMAGE LIMITED BLOOD 35843 LINETTE SUE COUNT 0 [facility] COMPLETE INC INC AUTO&AUTO DIFRNTL WBC BASIC 52179 LINETTE SUE METABOLIC 0 [facility] PANEL INC INC [facility] G0378 LINETTE SUE OBSERVATI 0 [facility] ON INC INC [facility] G0378 LINETTE SUE OBSERVATI 0 [facility] ON INC INC SERVICE PER HOUR BLOOD 92047 LINETTE SUE COUNT 0 [facility] COMPLETE INC INC AUTO&[place] [address] VIR[place]IA ZULLY, ABDOMEN 0 MEDICAL OLESYA W/O IMAGING CONTRAST ASSOCIATE MATERIAL S CRITICAL 88924 [facility] CARE 0 EMERGENCY III, ILL/INJUR SERVICES MCKAYLA ED PATIENT ASSOCIATE INIT S 30-74 [place] [address] LINETTE SUE INFUSION 0 [facility] THER INC INC PROPH AD[place] [address] [place] [address] LEONEL MILLERUTCHER, HEAD/BRAI 0 MEDICAL OLESYA N W/O IMAGING CONTRAST ASSOCIATE MATERIAL S 3D 41109 LINETTE SUE RENDERING 0 [facility] W/INTERP INC INC & POSTPROCE SS SUPERVISI ON URNLS DIP 52474 LINETTE SUE 0 [facility] STICK/TAB INC INC LET REAGENT AUTO MICROSCOP Y 3D 34570 LEONEL MILLERUTCHER, RENDERING 0 MEDICAL OLESYA IMAGING W/INTERP& ASSOCIATE POSTPROC S DIFF WORK STATION ECG 38584 LINETTE SUE ROUTINE 0 [facility] ECG INC INC W/LEAST 12 LDS TRCG ONLY W/O I&R CT PELVIS 86883 [facility] MILLERZULLY, W/O 0 MEDICAL OLESYA CONTRAST IMAGING MATERIAL ASSOCIATE S RADEX ABD 00724 [facility] MILLERZULLY, COMPL 0 MEDICAL OLESYA AQT ABD IMAGING W/S/E/D ASSOCIATE VIEWS 1 [place] [address] LINETTE SUE AMYLASE 0 [facility] INC INC LEVEL III 62114 PATHOLOGY PATHOLOGY SURG 0 & & PATHOLOGY CYTOLOGY CYTOLOGY LAB LAB GROSS&CHARLEY ROSCOPIC EXAM ANESTHESI 12187 COMMUNITY CHUY, A 0 ANESTH LALO A INTRAPERI OF THE [facility] LOWER ABD W/LAPS NOS IAADI 73154 LINETTE SUE INFFLUENZ 0 [facility] A A VIRUS INC INC IAADI 66807 LINETTE SUE INFLUENZA 0 [facility] B VIRUS INC INC CREATINE 49693 LINETTE SUE KINASE 0 [facility] [place] [address] LINETTE SUE LIPASE 0 [place] [address] LINETTE SUE TROPONIN 0 [facility] QUANTITAT INC INC RUPA CREATINE 56053 LINETTE SUE KINASE MB 0 [facility] FRACTION INC INC ONLY COMPREHEN 28518 LINETTE SUE SIVE 0 [facility] METABOLIC INC INC PANEL LAPAROSCO 24411 REYMUNDORAN ALLRAN PIC 0 JR, JR, APPENDECT ADI Naqvi RAULITO RHYTHM 43116 LINETTE SUE ECG 1-3 0 [facility] LEADS INC INC TRACING ONLY W/O I&R ECG 17664 LINETTE [place], ROUTINE 0 [facility] W/LEAST PROF SERV 12 LDS [place] [address] LINETTE SUE INFUSION 0 [facility] THERAPY/P INC INC ROPHYLAXI S /DX 1ST TO 1 HR LAPAROSCO 4701 LINETTE SUE PIC 0 [facility] APPENDECT INC INC RAULITO COMPREHEN 32064 LINETTE SUE SIVE 0 [facility] [place] [address] LINETTE SUE THYROID 0 [facility] STIMULATI INC INC NG HORMONE TSH LIPID 76765 LINETTE SUE PANEL 0 [facility] INC INC BLOOD 93447 LINETTE SUE COUNT 0 [facility] COMPLETE INC INC AUTO&AUTO DIFRNTL WBC EGD 70806 LINETTE SUE BALLOON 9 [facility] DILATION INC INC ESOPHAGUS <30 MM DIAM EGD 24371 GAIL SANCHEZ, TRANSORAL 9 [facility] BIOPSY SERV SINGLE/MU FOUNDATIO LTIPLE EGD 50145 GAIL SANCHEZ, INSERT 9 [facility] GUIDE SERV WIRE FOUNDATIO DILATOR PASSAGE ESOPHAGUS SPECIAL 77655 PATHOLOGY PATHOLOGY STAIN 9 & & GROUP 1 CYTOLOGY CYTOLOGY MICROORGA LAB LAB [facility] [place] I&[place] [address] PATHOLOGY PATHOLOGY SURG 9 & & PATHOLOGY CYTOLOGY CYTOLOGY LAB LAB GROSS&CHARLEY ROSCOPIC EXAM ESOPHAGOG 4516 LINETTE SUE ASTRODUOD 9 [facility] ENOSCOPY INC INC WITH CLOSED BIOPSY DILATION 4292 LINETTE SUE OF 9 [facility] [place] [address] LINETTE SUE INFUSION 9 [facility] THERAPY/P INC INC ROPHYLAXI S /DX 1ST TO 1 [place] [address] LINETTE SUE INFUSION 9 [facility] THERAPY INC INC PROPHYLAX IS/DX EA HOUR HEPATBL 67890 LEONEL ANDREA DUX SYS 9 [facility] [place] [address] LINETTE SUE ABDOMINAL 9 [facility] REAL INC [place] W/[place] [address] NEW LENA, RETROPERI 9 [facility] A REAL TIME PSC W/[place] [address] LEONEL ANDREA HEAD/BRAI 9 MEDICAL OLESYA N W/O IMAGING CONTRAST ASSOCIATE MATERIAL S BASIC 78847 LINETTE SUE METABOLIC 9 [facility] [place] [address] LEONEL ANDREA ANGIOGRAP 9 MEDICAL O[facility] HY CHEST IMAGING W/CONTRAS ASSOCIATE T/NONCONT S RAST 3D 05974 LINETTE SUE RENDERING 9 [facility] W/INTERP INC INC & POSTPROCE SS SUPERVISI ON LIPID 86881 LINETTE SUE PANEL 9 [facility] INC INC RADIOLOGI 58352 Marbella LI 9 MEDICAL O[facility]YA EXAMINATI IMAGING ON CHEST ASSOCIATE SINGLE S VIEW FRONTAL ECG 84770 LINETTE SUE ROUTINE 9 [facility] ECG INC INC W/LEAST 12 LDS TRCG ONLY W/O I&R COMPREHEN 87527 LINETTE SUE SIVE 9 [facility] METABOLIC INC INC PANEL BLOOD 30192 LINETTE SUE COUNT 9 [facility] COMPLETE INC INC AUTO&AUTO DIFRNTL WBC CREATINE 88132 LINETTE SUE KINASE 9 [facility] TOTAL INC INC CREATINE 02975 LINETTE SUE KINASE MB 9 [facility] [place] [address] LINETTE SUE TROPONIN 9 [facility] QUANTITAT INC INC RUPA ECG 86396 LINETTE MCCLAIN, ROUTINE 9 [facility] W/LEAST PROF SERV 12 LDS I&[place] [address] LEONEL ZULLY, ANGIOGRAP 9 MED[facility] HY IMAGING ABDOMEN ASSOCIATE W/CONTRAS S T/NONCONT RAST DUPLEX 40701 LINETTE SUE SCAN 9 [facility] EXTRACRAN INC INC IAL ART COMPL BI STUDY MRI BRAIN 19276 OLESYA C ZULLY, BRAIN 8 ZULLY OLESYA STEM W/O W/CONTRAS T MATERIAL LIPID 50227 LINETTE SUE PANEL 8 [facility] INC INC COMPREHEN 35382 LINETTE SUE SIVE 8 [facility] METABOLIC INC INC PANEL SPECIAL 55046 [facility] STAIN 8 CLINIC CLINIC GROUP 1 LABORATOR LABORATOR MICROORGA Y Y NISMS I&[place] [address] [facility] SURG 8 CLINIC CLINIC PATHOLOGY LABORATOR LABORATOR Y Y GROSS&[place] [address] [facility], ABDOMINAL 8 [facility] LISB[facility] W REAL CLINIC [place] PSC W/[place] [address] [facility], RETROPERI 8 [facility] L[facility] W TONEAL CLINIC REAL TIME PSC W/IMAGE LIMITED ANTIBODY 90496 [facility] HELICOBAC 8 CLINIC CLINIC TER LABORATOR LABORATOR PYLORI Y Y COLLECTIO 84730 [facility] N VENOUS 8 CLINIC CLINIC BLOOD LABORATOR LABORATOR VENIPUNCT Y Y URE CREATINE 75244 LINETTE SUE KINASE 8 [facility] TOTAL INC INC PROTHROMB 93437 LINETTE SUE IN TIME 8 [facility] INC INC BLOOD 62631 LINETTE SUE COUNT 8 [facility] COMPLETE INC INC AUTO&AUTO DIFRNTL WBC THROMBOPL 44443 LINETTE SUE ASTIN 8 [facility] TIME INC INC PARTIAL PLASMA/WH OLE BLOOD CREATINE 22691 LINETTE SUE KINASE MB 8 [facility] [place] [address] LINETTE SUE TROPONIN 8 [facility] QUANTITAT INC INC RUPA BASIC 40115 LINETTE LINETTE METABOLIC 8 [facility] PANEL INC INC CALCIUM TOTAL RADIOLOGI 31215 Marbella LAWSON 8 MEDICAL CHAD P EXAMINATI IMAGING ON CHEST ASSOCIATE SINGLE S VIEW FRONTAL ECG 70476 LINETTE SUE ROUTINE 8 [facility] ECG INC INC W/LEAST 12 LDS TRCG ONLY W/O I&[place] [address] LINETTE LINETTE ANGIOGRAP 8 [facility] HY INC INC ABDOMEN W/CONTRAS T/NONCONT RAST ECG 83819 LINETTE GREENESON, ROUTINE 8 [facility] W/LEAST PROF SERV 12 LDS I&R ONLY RADEX 97213 LINETTE SUE SPINE 8 [facility] LUMBOSACR INC INC AL MINIMUM 4 VIEWS OPHTH 60053 [facility] 8 MICHAEL A MICHAEL A XM&EVAL COMPRE NEW PT 1/> VST DUPLEX 59895 NESSA LI 8 MEDICAL OLESYA EXTRACRAN IMAGING IAL ART ASSOCIATE COMPL BI S STUDY AMB A0427 [facility] SERVICE 8 AMBULANCE AMBULANCE ALS SERVICE SERVICE [place] [address] [facility] ANDREA HEAD/BRAI 8 MEDICAL OLESYA N W/O [place] [address] [facility] ANDREA, CERVICAL 8 MEDICAL OLESYA SPINE W/O IMAGING CONTRAST ASSOCIATE MATERIAL S AMB A0422 [facility] OXYGEN&O2 8 AMBULANCE AMBULANCE SUPPLIES SERVICE SERVICE LIFE SUSTAININ G SITUATION 3D 74938 LEONEL ANDREA RENDERING 8 MEDICAL OLESYA W/INTERP IMAGING & ASSOCIATE POSTPROCE S SS SUPERVISI ON RADIOLOGI 93005 Marbella LI 8 MEDICAL OLESYA EXAMINATI IMAGING ON CHEST ASSOCIATE SINGLE S VIEW FRONTAL 3D 85809 LEONEL ANDREA RENDERING 8 MEDICAL OLES[facility] IMAGING W/INTERP& ASSOCIATE POSTPROC S DIFF WORK STATION GROUND A0425 [facility] MILEAGE 8 AMBULANCE AMBULANCE PER SERVICE SERVICE STATUTE MILE THYROID 37338 LINETTE SUE UPTAKE 8 [facility] SINGLE INC INC DETERMINA TION IODINE A9516 LINETTE SUE I-123 8 [facility] SODIUM INC INC IODIDE DX PER 100 UCI TO 999 THYROID 14098 [facility] [place], SAVANA 8 MEDICAL CHAD P W/UPTAKE IMAGING SINGLE [place] [address] LINETTE SUE TROPONIN 8 [facility] QUANTITAT INC INC RUPA CREATINE 52919 LINETTE SUE KINASE MB 8 [facility] FRACTION INC INC ONLY CREATINE 87056 LINETTE SUE KINASE 8 [facility] TOTAL INC INC BLOOD 56398 LINETTE SUE COUNT 8 [facility] COMPLETE INC INC AUTO&AUTO DIFRNTL WBC COMPREHEN 59528 [facility] SIVE 8 [facility] METABOLIC INC INC PANEL ECG 35526 [facility] ROUTINE 8 [facility] ECG INC INC W/LEAST 12 LDS TRCG ONLY W/O I&R URNLS DIP 23951 [facility] STICK/TAB INC INC LET REAGENT AUTO MICROSCOP Y ECG 70102 [facility] [place], ROUTINE 8 [facility] W/LEAST PROF SERV 12 LDS I&R ONLY URNLS DIP 73751 [facility] 8 CLINIC CLINIC STICK/TAB LABORATOR LABORATOR LET Y Y REAGENT AUTO MICROSCOP Y RENAL 67158 [facility] 8 CLINIC CLINIC PANEL LABORATOR LABORATOR Y Y COLLECTIO 16398 [facility] VENOUS 8 CLINIC CLINIC BLOOD LABORATOR LABORATOR VENIPUNCT Y Y URE CREATINE 76261 [facility] KINASE 8 [facility] [place] [address] [facility] VERMAON TROPONIN 8 [facility] QUANTITAT INC INC RUPA CREATINE 78056 [facility] SUE KINASE MB 8 [facility] FRACTION INC INC ONLY ECG 16015 [facility] ROUTINE 8 [facility] ECG INC INC W/LEAST 12 LDS TRCG ONLY W/O I&R OBSERVATI 59802 NANDINI GRIFFIN ON CARE 8 [facility] INTERNAL MED [facility] [id number] [facility] SUE OBSERVATI 8 [facility] ON INC INC SERVICE PER HOUR ECG 68331 [facility] [place], ROUTINE 8 [facility] ECG HOSPITAL W/LEAST PROF SERV 12 LDS I&R ONLY ECG 32408 [facility] [place], ROUTINE 8 [facility] W/LEAST PROF SERV 12 LDS I&R ONLY RHYTHM 88814 LINETTE SUE ECG 1-3 8 MEM [facility] LEADS INC INC TRACING ONLY W/O I&R BASIC 22789 [facility] METABOLIC 8 [facility] PANEL INC INC CALCIUM TOTAL ECG 35227 [facility] ROUTINE 8 [facility] ECG INC INC W/LEAST 12 LDS TRCG ONLY W/O I&R INITIAL 07481 LISSY NICK 8 [facility] ON INTERNAL CARE/DAY MED 30 MINUTES RADIOLOGI 91912 Marbella LAWSON 8 MEDICAL CHAD P EXAMINATI IMAGING ON CHEST [place] [address] [facility] S[facility] TROPONIN 8 [facility] QUANTITAT INC INC RUPA CREATINE 29658 [facility] SUE KINASE MB 8 [facility] FRACTION INC INC ONLY PROTHROMB 52379 [facility] SUE IN TIME 8 [facility] INC INC CREATINE 18625 [facility] S[facility] KINASE 8 [facility] TOTAL INC INC BLOOD 66349 [facility] SUE COUNT 8 [facility] COMPLETE INC INC AUTO&AUTO DIFRNTL WBC 3D 64810 CRESCENCIO LAWSON 8 MEDICAL CHAD P IMAGING W/INTERP& ASSOCIATE POSTPROC S DIFF WORK STATION CT THORAX 72366 Dawn LAWSON MEDICAL CHAD P W/CONTRAS IMAGING T ASSOCIATE MATERIAL S CT PELVIS 48108 [facility] SUE 8 [facility] W/CONTRAS INC INC T MATERIAL RADEX 95102 [facility] SUE SPINE 8 [facility] CERVICAL INC [place] [address] [place] [address] [place], ABDOMEN 8 MEDICAL CHAD P W/CONTRAS IMAGING T ASSOCIATE MATERIAL S US SOFT 46947 LINETTE VERMAON TISSUE 8 [facility] HEAD & INC INC NECK REAL TIME IMGE DOCM LIPID 49484 [facility] SUE PANEL 8 [facility] INC INC BLOOD 63832 [facility]UE COUNT 8 [facility] COMPLETE INC INC AUTO&[place] [address] [facility] SUE THYROXINE 8 [facility] [place] [address] [facility] S[facility] THYROID 8 [facility] STIMULATI [place] [address] [facility] FOLIC 8 [facility] ACID INC INC SERUM COMPREHEN 67821 [facility] SIVE 8 [facility] METABOLIC INC INC PANEL CYANOCOBA 78684 [facility] JUAN 8 [facility] VITAMIN INC INC B-12 HEMOGLOBI 59429 [facility] S[facility] N 8 [facility] GLYCOSYLA INC INC SONG A1C CREATINE 02984 LINETTE SUE KINASE MB 8 [facility] [place] [address] [facility] S[facility] TROPONIN 8 [facility] QUANTITAT INC INC RUPA CREATINE 52434 [facility] S[facility] KINASE 8 [facility] TOTAL INC INC BLOOD 53361 [facility] COUNT 8 [facility] COMPLETE INC INC AUTO&AUTO DIFRNTL WBC LIPID 35310 [facility] PANEL 8 [facility] INC INC ECG 28885 [facility] SUE ROUTINE 8 [facility] ECG INC INC W/LEAST 12 LDS TRCG ONLY W/O I&R GROUND [id number] [facility] 8 AMBULANCE AMBULANCE PER SERVICE SERVICE STATUTE MILE I SI&R 72725 Donya SOLANO/NJX PX 8 HEART & AMADOR Y DURING VASCULAR C-CATHJ ASSOC VENTR&/AT R ANGRPH I SI&R 18859 Donya SOLANO/NJX PX 8 HEART & AMADOR Y DURING VASCULAR C-CATHJ ASSOC PULM&/OR SELECT L HRT 37763 LEONEL SUMMERS, CATHETERI 8 HEART & AMADOR Y ZATION VASCULAR [place] [address] LEONEL SUMMERS, C-CATHJ 8 HEART & AMADOR Y F/SLCTV C VASCULAR ANGRPH ASSOC BASIC 88241 LINETET SUE METABOLIC 8 [facility] PANEL INC INC CALCIUM TOTAL INITIAL 20388 LEONEL SUMMERS, INPATIENT 8 HEART & AMADOR Y CONSULT VASCULAR NEW/ESTAB ASSOC PT 80 MIN HOSPITAL [id number] LINETTE SUE OBSERVATI 8 [facility] ON INC INC SERVICE PER HOUR INJECTION 21890 LEONEL SUMMERS, CARDIAC 8 HEART & AMADOR Y CATHJ L VASCULAR VENTR/L ASSOC ATR ANGIOGRAP H ECG 74087 [facility] FALLUJI, ROUTINE 8 HEART & NEZAR M ECG VASCULAR W/LEAST ASSOC 12 LDS I&R ONLY NONINVASI 76686 LINETTE SUE VE 8 [facility] EAR/PULSE INC INC OXIMETRY SINGLE DETER NONINVASI 28780 LINETTE SUE VE 8 [facility] EAR/PULSE INC INC OXIMETRY SINGLE DETER RHYTHM 22146 LINETTE SUE ECG 1-3 8 [facility] LE[facility] INC INC TRACING ONLY W/O I&R ECG 63475 LINETTE MCCLAIN, ROUTINE 8 [facility] W/LEAST PROF SERV 12 LDS I&R ONLY HOSPITAL G0378 LINETTE SUE OBSERVATI 8 [facility] MEM HOSP ON INC INC SERVICE PER HOUR ECG 63084 LIN[facility]TE SUE ROUTINE 8 [facility] ECG INC INC W/LEAST 12 LDS TRCG ONLY W/O I&R RADIOLOGI 06529 LIN[facility]TE SUE C 8 [facility] EXAMINATI INC INC ON CHEST SINGLE VIEW FRONTAL BLOOD 33473 LIN[facility] SUE COUNT 8 [facility] COMPLETE INC INC AUTO&AUTO DIFRNTL WBC THROMBOPL 57452 LINET[facility] SUE ASTIN 8 [facility] TIME INC INC PARTIAL PLASMA/WH OLE BLOOD COMPREHEN 25629 LIN[facility] SUE SIVE 8 [facility] METABOLIC INC INC PANEL CREATINE 03486 LINETTE SUE KINASE 8 [facility] [place] [address] LINETTE SUE TROPONIN 8 [facility] QUANTITAT INC INC RUPA NATRIURET 32732 LINETTE SUE IC 8 [facility] PEPTIDE INC INC CREATINE 95373 LINETTE SUE KINASE MB 8 [facility] FRACTION INC INC ONLY PROTHROMB 74987 LIN[facility] SUE IN TIME 8 [facility] INC INC MRI 12838 OLESYA C ZULLY, SPINAL 8 ZULLY OLESYA CANAL LUMBAR W/O CONTRAST MATERIAL MRI 57632 OLESYA C ZULLY, SPINAL 8 ZULLY OLESYA CANAL CERVICAL W/O CONTRAST [facility] 50077 Brigida CALVILLO MD C OFFICE PSC OT/N REG SCHED HOURS Encounters Encounter Start End Date Code Location Performer Type Date [facility] - 7 7 [facility] OUTPATIEN [facility] T OFFICE 77611 LAVINIA MCKEON 7 7 Kate TOWNSEND MD,PSC 25 MINUTES [facility] 7 7 [facility] LINETTE - 7 7 [facility] OUTPATIEN [facility] T OFFICE 23913 [facility] OUTPATIEN 7 7 PHYSICIAN T VISIT S GROUP 40 MINUTES [facility] - 7 7 [facility] OUTPATIEN [facility] T OFFICE 87829 [facility] OUTPATIEN 7 7 PHYSICIAN T VISIT S GROUP 40 MINUTES [facility] - 7 7 [facility] OUTPATIEN [facility] T OFFICE 61129 LAVINIA MCKEON 7 7 Kate TOWNSEND MD,PSC 15 MINUTES HOSPITAL LINETTE - 7 7 [facility] OUTPATIEN INC T HOSPITAL [facility] - 7 7 [facility] OUTPATIEN INC T OFFICE 64011 [facility] OUTPATIEN 7 7 PHYSICIAN T VISIT S GROUP 40 MINUTES OFFICE 26427 [facility] CB OUTPATIEN 7 7 PHYSICIAN T VISIT 5 S GROUP MINUTES HOSPITAL [facility] - 7 7 [facility] OUTPATIEN INC T EMERGENCY 55612 DEMETRIS VIRK 7 7 PHYSICIAN JR [facility]PARTMEN S, [facility] T VISIT HIGH/URGE NT SEVERITY OFFICE 73983 [facility] SERNAPATIEN 7 7 [facility] 10 P MINUTES EMERGENCY 91508 DEMETRIS ANDERS DEPT 7 7 PHYSICIAN VISIT S, PLLC HIGH SEVERITY& THREAT FUNCJ EMERGENCY 39199 [facility] 7 7 [facility] DEPARTMEN INC T VISIT LOW/MODER SEVERITY HOSPITAL [facility] - 7 7 [facility] OUTPATIEN INC T OFFICE 68897 [facility] OUTPATIEN 7 7 T NEW 30 CHIROPRAC MINUTES [facility] LINETTE - 7 7 [facility] OUTPATIEN INC T OFFICE 30929 LAVINIA KATE OUTPATIEN 7 7 Kate TOWNSEND MD,PSC 25 MINUTES HOSPITAL [facility] - 7 7 [facility] OUTPATIEN INC T OFFICE 53386 [facility] OUTPATIEN 7 7 [facility] T VISIT 5 INC MINUTES HOSPITAL LIN[facility]TE - 7 7 [facility] OUTPATIEN INC T HOSPITAL [facility] - 7 7 [facility] OUTPATIEN INC T OFFICE 89881 [facility] OUTPATIEN 7 7 PHYSICIAN T VISIT S GROUP 25 MINUTES HOSPITAL [facility] - 7 7 [facility] OUTPATIEN INC [facility]OSP[facility] - 7 7 [facility] OUTPATIEN [facility] HOSPITAL LINETTE - 7 7 [facility] OUTPATIEN INC T EMERGENCY 08067 DEMETRIS HUYNH DEPT 7 7 PHYSICIAN U VISIT S, [facility] HIGH SEVERITY& THREAT FUNJ EMERGENCY 98756 [facility] 7 7 [facility] DEPARTMEN [facility] T VISIT MODERATE SEVERITY OFFICE 13285 [facility] LEIVA OUTPATIEN 7 7 [facility] VISIT HOSPITAL 15 P MINUTES OFFICE 78485 [facility] KELLYAngelica OUTPATIEN 7 7 [facility] T VISIT MEDICAL 15 G MINUTES [facility] LIN[facility] - 6 6 [facility] OUTPATIEN [facility] HOSPITAL LINETTE - 6 6 [facility] OUTPATIEN [facility] OFFICE 26877 [facility] OUTPATIEN 6 6 PHYSICIAN T VISIT S GROUP 25 MINUTES OFFICE 37324 LAVINIA TOWNSEND OUTPATIEN 6 6 Kate TOWNSEND MD,[facility] 25 MINUTES OFFICE 65089 [facility] LEIVA OUTPATIEN 6 6 [facility] T VISIT HOSPITAL 10 P MINUTES OFFICE 47158 KANE FERRARA OUTPATIEN 6 6 T VISIT 10 MINUTES HOSPITAL LINETTE - 6 6 [facility] OUTPATIEN INC EMERGENCY 34455 LINETTE 6 6 [facility] DEPARTMEN INC T VISIT HIGH/URGE NT SEVERITY EMERGENCY 48138 DEMETRIS ANDERS DEPT 6 6 PHYSICIAN CHARLEY VISIT S, PLLC HIGH SEVERITY& THREAT FUNCJ OFFICE 10825 LAVINIA ALDANA OUTPATIEN 6 6 STEPHEN TOWNSEND MD,[facility] MINUTES HOSPITAL LINETTE - 6 6 [facility] OUTPATIEN INC T EMERGENCY 57736 [facility] 6 6 [facility] DEPARTMEN INC T VISIT MODERATE SEVERITY EMERGENCY 29704 DEMETRIS [facility]O 6 6 PHYSICIAN CHARLEY DEPARTMEN S, [facility] T VISIT HIGH/URGE NT SEVERITY HOSPITAL [facility]ET[facility] - 6 6 [facility] OUTPATIEN INC T OFFICE 83571 [facility] CB TOD OUTPATIEN 6 6 PHYSICIAN T VISIT S GROUP 10 MINUTES HOSPITAL LIN[facility]TE - 6 6 [facility] OUTPATIEN INC T OFFICE 89243 [facility] CB TOD OUTPATIEN 6 6 PHYSICIAN T VISIT 5 S GROUP MINUTES HOSPITAL LIN[facility] - 6 6 [facility] OUTPATIEN INC T OFFICE 68234 [facility] OUTPATIEN 6 6 PHYSICIAN CHARLEY T VISIT S GROUP 15 MINUTES HOSPITAL LINETTE - 6 6 [facility] OUTPATIEN INC T OFFICE 15518 [facility] OUTPATIEN 6 6 PHYSICIAN MAT T VISIT S GROUP 25 MINUTES [facility] - 6 6 [facility] OUTPATIEN INC T OFFICE 86652 [facility] CB TOD CONSULTAT 6 6 PHYSICIAN ION S GROUP NEW/ESTAB PATIENT 30 MIN OFFICE 47847 [facility] OUTPATIEN 6 6 PHYSICIAN CHARLEY T VISIT S GROUP 10 MINUTES OFFICE 03312 [facility] OUTPATIEN 6 6 PHYSICIAN CHARLEY T VISIT S GROUP 10 MINUTES OFFICE 32039 BOYD MCKEON 6 6 MD JERMAINE, T VISIT PSC 15 MINUTES OFFICE 32170 [facility] OUTPATIEN 6 6 PHYSICIAN CHARLEY T VISIT S GROUP 10 MINUTES OFFICE 28976 BOYD MCKEON 6 6 MD JERMAINE, T VISIT PSC 15 MINUTES OFFICE 51959 PROGRESSI BANDAR OUTPATIEN 6 6 VE TEREZA T NEW 30 PODIATRY MINUTES OFFICE 77523 [facility] VERENICEIRIS OUTPATIEN 6 6 PHYSICIAN EUG T VISIT S GROUP 15 MINUTES OFFICE 27927 [facility] OUTPATIEN 6 6 [facility] T VISIT INC 10 MINUTES HOSPITAL LINETTE - 6 6 [facility] OUTPATIEN INC T OFFICE 76985 BOYD HAYNES ARNOLD OUTPATIEN 6 6 MD JERMAINE, T VISIT PSC 25 MINUTES HOSPITAL LIN[facility] - 6 6 [facility] OUTPATIEN [facility] T LDS HOSPITAL LINETTE - 6 6 [facility] OUTPATIEN [facility] T OFFICE 67563 [place] [facility] CON[facility]ULTAT 6 6 MEDICAL THO ION SERV NEW/ESTAB FOUNDATIO PATIENT N 40 MIN HOSPITAL UNIVERSIT - 6 6 [facility] T OFFICE 72192 [facility] 6 6 Y T VISIT 5 HOSPITAL MINUTES HOSPITAL LINETTE - 6 6 [facility] OUTPATIEN INC T OFFICE 37090 SCIFRES SCIFRES OUTPATIEN 6 6 ANG ANG T VISIT 10 MINUTES HOSPITAL LIN[facility]TE - 6 6 [facility] OUTPATIEN INC T OFFICE 32681 BOYDAISHWARYA ALVAREZCHELE LB OUTPATIEN 6 6 MD JERMAINE, T VISIT PSC 15 MINUTES EMERGENCY 58521 DEMETRIS NIELSON DEPT 6 6 PHYSICIAN VISIT S, [facility] HIGH SEVERITY& [facility] OUTPATIEN INC T EMERGENCY 49704 [facility] 6 6 [facility] DEPARTMEN INC T VISIT HIGH/URGE NT SEVERITY HOSPITAL [facility] - 6 6 [facility] OUTPATIEN [facility] HOSPITAL LINETTE - 6 6 [facility]PATIEN [facility] HOSPITAL LINETTE - 5 5 [facility]PATIEN [facility] HOSPITAL LINETTE - 5 5 [facility] OUTPATIEN [facility] EMERGENCY 09217 DEMETRIS MOREL 5 5 PHYSICIAN [facility] T VISIT MODERATE SEVERITY EMERGENCY 88180 [facility] 5 5 [facility] T VISIT LOW/MODER SEVERITY OFFICE 39359 [facility] 5 PH[facility] T VISIT S GROUP 10 MINUTES OFFICE 89334 [facility] GRETCHEN OUTPATIEN 5 5 [facility] T VISIT MEDICAL 15 G MINUTES HOSPITAL LINETTE - 5 5 [facility] OUTPATIEN [facility] OFFICE 97989 BOYD ASHER OUTPATIEN 5 5 MD JERMAINE, T VISIT PSC 15 MINUTES HOSPITAL LINETTE - 5 5 [facility]EN [facility] LINETTE - 5 5 [facility] OUTPATIEN [facility] T OFFICE 88061 BOYD BARRETT OUTPATIEN 5 5 MD JERMAINE, T VISIT PSC 15 MINUTES HOSPITAL LINETTE - 5 5 [facility] OUTPATIEN [facility] T OFFICE 00868 [facility] LEIVA OUTPATIEN 5 5 [facility] T VISIT HOSPITAL 10 P MINUTES EMERGENCY 94424 DEMETRIS HUYNH 5 5 PHYSICIAN Dee [facility] T VISIT HIGH/URGE NT SEVERITY OFFICE 18560 [facility] LEIVA OUTPATIEN 5 5 [facility] T VISIT HOSPITAL 15 P MINUTES OFFICE 92178 FREDY COON OUTPATIEN 5 5 MD T VISIT 10 MINUTES HOSPITAL [facility] - 5 5 [facility] OUTPATIEN INC T [facility]OSPITAL LIN[facility]TE - 5 5 [facility] OUTPATIEN INC T OFFICE 43821 CARDIOVAS [facility] OUTPATIEN 5 5 CULAR MAT T VISIT CONSULTAN 15 TS O MINUTES OFFICE 40589 FREDY DEAN ANJ OUTPATIEN 5 5 MD T NEW 30 MINUTES HOSPITAL [facility] - 5 5 [facility] OUTPATIEN INC T [facility]PITAL LIN[facility] - 5 5 [facility] OUTPATIEN INC T OFFICE 75408 CARDIOVAS [facility]AYO OUTPATIEN 5 5 CULAR MAT T NEW 45 CONSULTAN MINUTES TS O HOSPITAL [facility] - 5 5 [facility] OUTPATIEN INC T OFFICE 00173 [facility] OUTPATIEN 5 5 PHYSICIAN [facility] T VISIT S GROUP 10 MINUTES HOSPITAL LINETTE - 5 5 [facility] OUTPATIEN INC T EMERGENCY 63970 [facility] 5 5 [facility] DEPARTMEN INC T VISIT HIGH/URGE NT SEVERITY OFFICE 07342 [facility] GRETCHEN OUTPATIEN 4 4 [facility] T VISIT MEDICAL 10 G MINUTES HOSPITAL LINETTE - 4 4 [facility] OUTPATIEN INC T [facility]OSPITAL LIN[facility]TE - 4 4 [facility] OUTPATIEN INC T OFFICE 27290 LEIVA LEIVA OUTPATIEN 4 4 ART ART T VISIT 15 MINUTES OFFICE 15542 LEIVA LEIVA OUTPATIEN 4 4 ART ART T VISIT 15 MINUTES EMERGENCY 98939 JAIDEN CAMILLA JAIDEN CAMILLA 4 4 DEPARTMEN T VISIT HIGH/URGE NT SEVERITY HOSPITAL [facility] - 4 4 [facility] OUTPATIEN INC T OFFICE 12638 GRET[facility] GODINEZ OUTPATIEN 4 4 JUDAH TREVINO T NEW 45 MINUTES OFFICE 06909 [facility] OUTPATIEN 4 4 [facility] T VISIT 10 MINUTES EMERGENCY 17125 [facility] 4 4 III AREN III AREN DEPARTMEN T VISIT HIGH/URGE NT SEVERITY EMERGENCY 14119 [facility] 4 4 [facility] DEPARTMEN INC T VISIT MODERATE SEVERITY HOSPITAL [facility] - 4 4 [facility] OUTPATIEN INC T EMERGENCY 59170 [facility] DEPT 4 4 III AREN III AREN VISIT HIGH SEVERITY& THREAT [facility] LINETTE - 4 4 [facility] OUTPATIEN INC T OFFICE 23619 [facility] OUT[facility] 4 4 CHARLEY CHARLEY T NEW 30 MINUTES EMERGENCY 94723 [facility] DEPT 4 4 [facility] VISIT INC HIGH SEVERITY& THREAT [facility] LINETTE - 4 4 [facility] OUTPATIEN INC T OFFICE 96244 VITA [facility] OUTPATIEN 4 4 T NEW 45 MINUTES HOSPITAL LINET[facility] - 3 3 [facility] OUTPATIEN INC T OFFICE 21207 NATHALY CRMIE OUTPATIEN 3 3 JR AREN JR AREN T VISIT 15 MINUTES OFFICE 38163 POPEYE PHI POPEYE PHI CONSULTAT 3 3 ION NEW/ESTAB PATIENT 40 MIN HOSPITAL UNIVERSIT - 3 3 [facility] T OFFICE 93436 UNIVERSIT OUTPATIEN 3 3 Y T NEW 10 [facility] - 3 3 [facility] OUTPATIEN INC T OFFICE 90000 MCKEMIE MCKEMIE OUTPATIEN 3 3 JR AREN YOUNGER T VISIT 15 MINUTES HOSPITAL LIN[facility] - 3 3 [facility] OUTPATIEN INC T [facility]OSPITAL [facility] - 3 3 [facility] OUTPATIEN INC T [facility] - 3 3 [facility] OUTPATIEN INC T [facility]OSP[facility] LIN[facility]TE - 3 3 [facility] OUTPATIEN INC T OFFICE 13432 LAUREN AGUILAR OUTPATIEN 3 3 SAVITA BARNEY T VISIT 15 MINUTES HOSPITAL [facility] - 3 3 [facility] OUTPATIEN INC T OFFICE 48902 MCKEMIE MCKEMIE OUTPATIEN 3 3 JR AREN YOUNGER T VISIT 15 MINUTES OFFICE 58965 MCKEMIE MCKEMIE OUTPATIEN 3 3 JR AREN YOUNGER T VISIT 15 MINUTES HOSPITAL [facility] - 3 3 [facility] OUTPATIEN INC T OFFICE 78135 MCKEMIE MCKEMIE OUTPATIEN 3 3 JR AREN YOUNGER T VISIT 15 MINUTES HOSPITAL LINETTE - 3 3 [facility] OUTPATIEN INC T EMERGENCY 77499 VOLODYMYR BRADFORD 3 3 EMERGENCY [facility] T VISIT HIGH/URGE NT SEVERITY EMERGENCY 96463 LINETTE 3 3 [facility] DEPARTMEN INC T VISIT LOW/MODER SEVERITY OFFICE 69116 MCKEMIE MCKEMIE OUTPATIEN 3 3 JR AREN YOUNGER T VISIT 15 MINUTES HOSPITAL [facility] - 3 3 [facility] OUTPATIEN INC T EMERGENCY 10055 LIN[facility]TE 3 3 [facility] DEPARTMEN INC T VISIT HIGH/URGE NT SEVERITY EMERGENCY 08064 [facility] DEPT 3 3 [facility] CHARLEY VISIT HIGH SEVERITY& THREAT [facility] LINETTE - 3 3 [facility] OUTPATIEN INC T OFFICE 66821 SHAYEMIE SHAYEMIE OUTPATIEN 3 3 JR AREN YOUNGER T VISIT 15 MINUTES EMERGENCY 08334 [facility] 3 3 [facility] DEPARTMEN INC T VISIT HIGH/URGE NT SEVERITY EMERGENCY 14206 [facility] DEPT 3 3 CHARLEY CHARLEY VISIT HIGH SEVERITY& THREAT [facility] LINETTE - 3 3 [facility] OUTPATIEN INC [facility] - 2 2 [facility] OUTPATIEN INC [facility] - 2 2 [facility] OUTPATIEN INC T OFFICE 24232 CALI ESCOBARKINS OUTPATIEN 2 2 ART ART T VISIT 5 MINUTES HOSPITAL [facility] - 2 2 [facility] OUTPATIEN INC [facility] - 2 2 [facility] OUTPATIEN INC T OFFICE 29790 LEIVA LEIVA OUTPATIEN 2 2 ART ART T NEW 20 MINUTES [facility] - 2 2 [facility] OUTPATIEN INC T OFFICE 98429 JAMA YUN OUTPATIEN 2 2 ARPAN ANTONY T VISIT 15 MINUTES [facility]OSPITAL [facility] - 2 2 [facility] OUTPATIEN INC T OFFICE 18429 JAMA YUN OUTPATIEN 2 2 ARPAN ANTONY T VISIT 15 MINUTES OFFICE 98406 NICK ROMERO OUTPATIEN 2 2 CARLOTA VAN T NEW 60 MINUTES OFFICE 83565 NATHALY ANDERSEN OUTPATIEN 2 2 JR AREN YOUNGER T VISIT 15 MINUTES HOSPITAL [facility] - 2 2 [facility] OUTPATIEN INC T OFFICE 01582 KANE FERRARA OUTPATIEN 2 2 T VISIT 10 MINUTES OFFICE 90419 JOHNY MCCLAIN OUTPATIEN 2 2 CAMILLA CAMILLA T VISIT 25 MINUTES EMERGENCY 21228 ODELLALYSON BAINALYSON DEPT 2 2 III AREN III AREN VISIT HIGH SEVERITY& THREAT FUNCJ EMERGENCY 81002 LINETTE 2 2 [facility] DEPARTMEN INC T VISIT HIGH/URGE NT SEVERITY HOSPITAL [facility] - 2 2 [facility] OUTPATIEN INC T OFFICE 33801 MCKEMIE MCKEMIE OUTPATIEN 2 2 JR AREN JR AREN T VISIT 15 MINUTES OFFICE 15739 EDGE DONNIE FIELDS OUTPATIEN 2 2 T NEW 10 MINUTES HOSPITAL LIN[facility] - 2 2 [facility] OUTPATIEN INC T OFFICE 54073 ODALYS MORROW LB OUTPATIEN 2 2 T VISIT 10 MINUTES EMERGENCY 03564 ODELLALYSON CAMPOS DEPT 2 2 III AREN III AREN VISIT HIGH SEVERITY& THREAT FUNJ HOSPITAL [facility] - 2 2 [facility] OUTPATIEN INC T EMERGENCY 17233 LINET[facility] 2 2 [facility] T VISIT MODERATE SEVERITY EMERGENCY 09554 BARAHONA MICHELLE BARAHONA MICHELLE DEPT 1 1 VISIT HIGH SEVERITY& THREAT FUNCJ EMERGENCY 66828 LINETTE 1 1 [facility] T VISIT MODERATE SEVERITY HOSPITAL [facility] - 1 1 [facility] OUTPATIEN INC T OFFICE 18517 [place] JOHNY OUTPATIEN 1 1 MERCEDES CAMILLA T VISIT INTERNAL 25 MED MINUTES OFFICE 47184 ODALYS MORROW LB OUTPATIEN 1 1 T NEW 30 MINUTES OFFICE 22390 BISHNU MORRISON JR OUTPATIEN 1 1 ATULFERNANDA AREN T VISIT CLINIC 15 PSC MINUTES OFFICE 52620 NEW MITCH MAT OUTPATIEN 1 1 [facility] VISIT CLINIC 25 PSC MINUTES OFFICE 09267 [place] BESSON OUTPATIEN 1 1 [facility] T VISIT INTERNAL 25 MED MINUTES OFFICE 79500 NEW MCCORMACK CONSULTAT 1 1 [facility] NEW/ESTAB PSC PATIENT 80 MIN HOSPITAL [facility] - 1 1 [facility] OUTPATIEN [facility] OFFICE 20311 [place] BESSON OUTPATIEN 1 1 [facility] T VISIT INTERNAL 15 MED MINUTES EMERGENCY 85924 VOLODYMYR CAMPOS DEPT 1 1 EMERGENCY III AREN VISIT SERVICES HIGH SEVERITY& THREAT FUN [facility]OS[facility] - 1 1 [facility] OUTPATIEN [facility] EMERGENCY 18976 [facility] 1 1 [facility] DEPARTMEN [facility] VISIT MODERATE SEVERITY OFFICE 98652 [facility] OUTPATIEN 1 1 [facility] VISIT INTERNAL 25 MED MINUTES OFFICE 96435 [place] [facility] OUTPATIEN 1 1 [facility] VISIT INTERNAL 25 MED MINUTES HOSPITAL [facility] - 1 1 [facility]IEN [facility] LIN[facility] - 1 1 [facility] OFFICE 26076 [facility] OUTPATIEN 1 1 [facility] T VISIT INTERNAL 25 MED MINUTES HOSPITAL LIN[facility] - 1 1 [facility] LIN[facility] - 1 1 [facility]PATI[facility] T OFFICE 04136 [place] [facility] OUTPATIEN 1 1 [facility] T VISIT INTERNAL 15 MED MINUTES EMERGENCY 39822 [facility] 1 1 [facility] DEPARTMEN [facility] T VISIT HIGH/URGE NT SEVERITY EMERGENCY 80335 VOLODYMYR [facility]AMP[facility] DEPT 1 1 EMERGENCY III AREN VISIT SERVICES HIGH SEVERITY& THREAT FUNCJ HOSP[facility] T OFFICE 63841 [facility] OUTPAT[facility] 1 1 [facility] YOUNGER T VISIT INTERNAL 15 MED MINUTES OFFICE 69454 [facility] OUTPAT[facility] 1 1 [facility] YOUNGER T VISIT INTERNAL 15 MED MINUTES OFFICE 74491 [facility] 1 1 [facility] SAMPSON T VISIT INTERNAL 15 MED MINUTES [facility] OFFICE 05810 [facility] 1 1 [facility] BARNEY T VISIT INTERNAL 15 MEDI MINUTES OFFICE 60800 [facility] 0 0 [facility] YOUNGER T VISIT INTERNAL 15 MED MINUTES [facility] T OFFICE 19174 [facility] OUTPAT[facility] 0 0 [facility] YOUNGER T VISIT INTERNAL 15 MED MINUTES EMERGENCY 79088 VOLODYMYR BOURNE DEPT 0 0 EMERGENCY VISIT SERVICES HIGH SEVERITY& THREAT [facility] OFFICE 39460 [facility] 0 0 [facility] PAIGE VISIT INTERNAL 15 MED MINUTES OFFICE 54736 BISHNU MORRISON W OUTPATIEN 0 0 [facility] 15 PSC MINUTES OFFICE 86052 [facility] 0 0 Kate GARNICA JR VISIT INTERNAL MCKAYLA F 15 MED MINUTES OFFICE 29525 ALLRAN ALLRAN CONSULTAT 0 0 JR CECELIA, ANH Naqvi NEW/ESTAB PATIENT 80 MIN EMERGENCY 13191 [facility] 0 0 [facility] T VISIT HIGH/URGE NT SEVERITY [facility] - [facility] 0 [facility] T OFFICE 86144 [facility] 0 0 Kate GARNICA JR VISIT INTERNAL MCKAYLA F 15 MED MINUTES [facility] 0 [facility] T OFFICE 47858 [facility] 9 9 NA[facility] RAI Kate VISIT INTERNAL MCKAYLA F 15 MED MINUTES [facility] 9 9 [facility] T OFFICE 86137 GAIL SANCHEZ OUTPATIEN 9 9 ULI ESPINOZA T VISIT SERV 25 FOUNDATIO MINUTES [facility]OSP[facility] - 9 9 [facility] - 9 9 [facility] T OFFICE 16818 [facility] JOHNY [facility]PATI[facility] 9 9 [facility] Allred T VISIT INTERNAL 15 MED MINUTES OFFICE 50727 Lauren WAYNE OUTPATIEN 9 9 [facility]IN[facility] 15 PSC MINUTES OFFICE 03492 [facility] RUTERINMIE OUTPATIEN 9 9 NAHUN RAI Kate VISIT INTERNAL MCKAYLA F 15 MED MINUTES [facility] - 9 9 [facility] INC T EMERGENCY 81903 VOLODYMYR MASON, ILIANAT 9 9 EMERGENCY [facility] VISIT SERVICES O HIGH SEVERITY& ASSOCIATE THREAT S FUN EMERGENCY 71504 [facility] 9 9 [facility] DEPART[facility] T VISIT HIGH/URGE NT SEVERITY OFFICE 30643 [facility] RUTKEMIE OUTPATIEN 9 9 NAHUN RAI Kate VISIT INTERNAL MCKAYLA F 15 MED MINUTES OFFICE 42631 [facility] ELIAS OUTPATIEN 9 9 NA[facility] SHEFFIELD T VISIT INTERNAL 15 MED MINUTES OFFICE 52640 [facility], OUTPATIEN 9 9 [facility] Allred T VISIT INTERNAL 10 MED MINUTES OFFICE 31364 [facility] OUTPATIEN 9 9 NAHUN T VISIT INTERNAL MCKAYLA F 15 MED MINUTES [facility] - 9 9 [facility] T OFFICE 48864 [facility] ELIAS, OUTPATIEN 9 9 NA[facility] SHEFFIELD T VISIT INTERNAL 15 MED MINUTES [facility] - 8 8 [facility] T OFFICE 33824 [facility] ELIAS, OUTPATIEN 8 8 NA[facility] SHEFFIELD T VISIT INTERNAL 15 MED MINUTES OFFICE 69983 [facility] ELI[facility], OUTPATIEN 8 8 NAHUN SHEFFIELD T VISIT INTERNAL 15 MED MINUTES OFFICE 20923 [facility] OUTPATIEN 8 8 NAHUN JR T VISIT INTERNAL MCKAYLA F 15 MED MINUTES OFFICE 43102 Lauren WAYNE OUTPATIEN 8 8 [facility]IN[facility] 15 PSC MINUTES EMERGENCY 61327 [facility] 8 8 [facility] DEPARTMEN INC T VISIT MODERATE SEVERITY EMERGENCY 51103 AMBERLY MASON, DEPT 8 8 [facility] VISIT CORPORATI O HIGH ON SEVERITY& THREAT [facility] - 8 8 [facility] T OFFICE 30155 [facility] OUTPATIEN 8 8 Kate GARNICA JR VISIT INTERNAL MCKAYLA F 15 MED MINUTES [facility] - 8 8 [facility] T OFFICE 56118 [facility] 8 8 Kate GARNICA JR VISIT INTERNAL MCKAYLA F 15 MED MINUTES [facility] - 8 8 [facility] INC T OFFICE [id number] [facility] OUT[facility]IEN 8 8 [facility] JR, T VISIT INTERNAL MCKAYLA F 15 MED MINUTES OFFICE [id number] Lauren WAYNE CONSULTAT 8 8 [facility] NEW/ESTAB PSC PATIENT 60 MIN OFFICE 65969 NEW [facility] OUTPATIEN 8 8 [facility] III, T VISIT CLINIC RADHA L 10 PSC MINUTES OFFICE [id number] [place] [facility] OUTPATIEN 8 8 NAHUN RAI T VISIT INTERNAL MCKAYLA F 15 MED MINUTES [facility] - 8 8 [facility] T [facility] - 8 8 [facility] INC T EMERGENCY 37628 [facility] VALERO 8 8 [facility] VISIT PROF SERV MODERATE SEVERITY EMERGENCY 59695 [facility] 8 8 [facility] T VISIT HIGH/URGE NT SEVERITY OFFICE 29228 [facility] BEN OUTPATIEN 8 8 [facility] III, T NEW 45 CLINIC RADHA L MINUTES PSC EMERGENCY 88678 [facility] DEPT 8 8 [facility]IT [facility] HIGH [facility]VERITY& THREAT [facility] - 8 8 [facility] OUTPATIEN INC T PERIODIC 10718 [facility] PREVENTIV 8 8 NAHUN RAI E MED EST INTERNAL MCKAYLA F PATIENT MED [id number] [facility] - 8 8 [facility] INC T OFFICE 61025 ZEE, ZEE, OUTPATIEN 8 8 [facility] VISIT 40 MINUTES [facility]OSP[facility] - 8 8 [facility] INC T EMERGENCY 42595 [facility] COLMENARES DEPT 8 8 [facility] HIGH PROF SERV SEVERITY& [facility] T EMERGENCY 78274 [facility] 8 8 [facility] T VISIT HIGH/URGE NT SEVERITY OFFICE 52921 YAYO ZEE OUTPATIEN 8 8 LISBETH BOB T VISIT 40 MINUTES OFFICE 39016 GAIL NYE, CONSULTAT 8 8 [facility] A ION SERV NEW/ESTAB FOUNDATIO PATIENT 40 MIN OFFICE 00196 MIKE BURGER 8 8 KRISTIAN GARNETT T VISIT PSC 15 MINUTES
--- OUTSIDE RECORDS SUMMARY | 2017-09-05 04:26 | External Medical Summary Rpt ---
Author Author , LUIS EDUARDO Garcia LUIS EDUARDO Address Unknown Phone [email or web address] [email or web address] Care Team Providers Care Beam Dyer Recessed Vat Name Role Phone [facility], AB[facility]ARE Unavailable Unavailable [...] Unavailable DANIEL, ALEXIS, Unavailable Unavailable DANIEL, ALEXIS [facility] Unavailable Unavailable SERVICE, [facility] Unavailable Unavailable SERVICE, [facility] Unavailable Unavailable SERVICE, [facility] BANDAR TEREZA, BANDAR Unavailable Unavailable [...] Unavailable Unavailable ZULLY BUBBA, Unavailable Unavailable ZULLY BBUBA ZULLY BUBBA, Unavailable Unavailable ZULLY BUBBA ZULLY, OLESYA, Unavailable Unavailable ZULLY, OLESYA [facility], Unavailable Unavailable [facility] [place] Un[facility], [facility], [facility] Unavailable Unavailable [facility] Unavailable Un[place], [facility] [place] [facility] Un[place] [...] BARAHONA MICHELLE, BARAHONA MICHELLE Unavailable [facility]available [facility] Unavailable Unavailable INC, [facility] Unavailable Unavailable HOSPITAL P, [facility] NETTIE GRIFFIN HARVEY, Unavailable Unavailable [facility] MIDDLETON ALEM, MIDDLETON ALEM Unavailable Unavailable MIDDLETON ALEM, MIDDLETON ALEM Unavailable Unavailable MIDDLETON, MICHAEL A, Unavailable Unavailable MIDDLETON, MICHAEL A [facility], Unavailable Unavailable [facility] MIESHA NIELSON, MIESHA NIELSON Unavailable Unavailable KATYA MITCHELL, KATYA Unavailable Unavailable MITCHELL JAMA NAN, JAMA Unavailable Unavailable NAN JAMA NAN, JAMA Unavailable Unavailable NAN [facility] Unavailable Unavailable MEDICAL G, [facility] Unavailable Unavailable DEPARTMENT, [facility] Un[facility], [facility] [place] [facility] Unavailable Unavailable NAN, ALBA E, Unavailable Unavailable NAN, ALBA E [facility] Unavailable Unavailable LABORATORY, [facility] [place] Unavailable Unavailable [facility], [facility] [place] Unavailable Unavailable [facility], [facility] FREDY DEAN MD, FREDY Unavailable Unavailable JERMAINE DOSS MAJORS G, MAJORS G Unavailable Unavailable VITA HAM, VITA HAM Unavailable Unavailable VITA HAM, VITA HAM Unavailable Unavailable [facility] Unavailable Unavailable SERVICES, [facility] NICK VAN, Unavailable Unavailable ROMERO [...] MOHAMMADZADEH MOHAMMADZADEH HAM, Unavailable Unavailable MOHAMMADZADEH HAM [facility] Unavailable Unavailable [facility], [facility] O'JENNIFER LISA, O'JENNIFER Unavailable Unavailable [...] A MITCH MAT, MITCH MAT Unavailable Unavailable [facility], Unavailable Unavailable [facility] MORRISON W, MORRISON W Unavailable Unavailable MORRISON [...] NEOPLASM OF [facility] CRANIAL INC NERVES [id number] SPONDYLOSIS 07-05-2017 [place] W/O KRISTIAN MYELOPATH/R ,[facility] ADICULOPATH Y CERV RGN [id number] SPONDYLOSIS 07-05-2017 [place] W/Milton TOWNSEND MYELSAJI/Lashay DOSS,[facility] ADICULOPATH Y LUMB RGN [id number] NURSING HOME 07-05-2017 [place] CURRENT USE KRISTIAN OF OPIATE ,[facility] ANALGESIC K54396 OTHER LONG 06-15-2017 [facility] TERM [facility] CURRENT INC DRUG THERAPY E119 TYPE 2 06-02-2017 [facility] DIABETES PHYSICIANS MELLITUS GROUP WITHOUT COMPLICATIO NS E785 HYPERLIPIDE 06-02-2017 [facility] LESTER PHYSICIANS UNSPECIFIED GROUP I119 HYPERTENSIV 06-02-2017 [facility] E HEART PHYSICIANS DISEASE GROUP WITHOUT HEART FAILURE 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 PECTORIS I712 THORACIC 06-02-2017 [facility] AORTIC PHYSICIANS ANEURYSM GROUP WITHOUT RUPTURE I714 ABDOMINAL 06-02-2017 [facility] AORTIC PHYSICIANS ANEURYSM GROUP WITHOUT RUPTURE R079 CHEST PAIN 06-02-2017 [facility] UNSPECIFIED PHYSICIANS GROUP R9439 ABNORMAL 05-26-2017 [facility] RESULT OTH PHYSICIANS CARDIOVASCU GROUP LR FUNCTION STUDY V01974 ENCOUNTER 05-26-2017 [facility] FOR PHYSICIANS PREPROCEDUR GROUP AL CARIOVASCUL AR EXAM I10 ESSENTIAL 05-13-2017 [facility] PRIMARY PHYSICIANS HYPERTENSIO GROUP N R9431 ABNORMAL 05-13-2017 [facility] ELECTROCARD PHYSICIANS IOGRAM GROUP D85382 ENCOUNTER 05-13-2017 [facility] FOR OTHER [facility] PREPROCEDUR INC AL EXAMINATION R1011 RIGHT UPPER 05-03-2017 [place] [facility] ASS R935 ABN FIND DX 05-03-2017 [facility] IMAG OTH [facility] ABD REGIONS INC RETROPERITO NEUM D369 BENIGN 04-19-2017 [facility] NEOPLASM PHYSICIANS UNSPECIFIED GROUP SITE G93625 PERSONAL 04-19-2017 [facility] HISTORY OF PHYSICIANS COLONIC GROUP POLYPS K210 GASTRO-ESOP 04-09-2017 [facility] JENSEN PHYSICIANS, REFLUX PLLC DISEASE W/ ESOPHAGITIS K828 OTHER 04-09-2017 [facility] SPECIFIED PHYSICIANS, DISEASES OF PLLC GALLBLADDER K829 DISEASE OF 04-09-2017 [place] [facility]ALL[facility]ICAL IMAGING ASS UNSPECIFIED R109 UNSPECIFIED 04-09-2017 [place] ABDOMINAL MEDICAL PAIN IMAGING ASS X04715 PERSONAL 04-09-2017 [facility] P DEPENDENCE N411 CHRONIC 04-05-2017 [place] PROSTATITIS [facility] P N529 MALE 04-05-2017 [facility] P UNSPECIFIED K219 GASTRO-ESOP 04-02-2017 [facility] H REFLUX [facility] DISEASE INC WITHOUT ESOPHAGITIS M5116 INTERVERTEB 04-02-2017 [facility] GLORIA PHYSICIANS, D/O PLLC W/RADICULOP ATHY LUMB RGN R1031 RIGHT LOWER 04-02-2017 [place] [facility] M5382 OTHER 03-23-2017 [place] SPECIFIED [facility] DORSOPATHIE C CENTE S CERVICAL REGION M5386 OTHER 03-23-2017 [place] SPECIFIED CHIROPRACTI DORSOPATHIE C CENTE S LUMBAR REGION R77020 OTHER 03-04-2017 [place] CERVICAL JUANI TOWNSEND MD,PSC MID-CERV REG UNS LEVEL K5900 CONSTIPATIO 02-13-2017 [place] N MEDICAL UNSPECIFIED IMAGING ASS R112 NAUSEA WITH 02-13-2017 [place] VOMITING MEDICAL UNSPECIFIED IMAGING ASS J449 CHRONIC 01-13-2017 [place] OBSTRUCTIVE [place] [facility] P DISEASE UNS R0600 DYSPNEA 01-13-2017 [place] UNSPECIFIED MEDICAL IMAGING ASS E039 HYPOTHYROID 11-11-2016 [facility] ISM [facility] UNSPECIFIED INC N401 BENIGN 10-26-2016 [place] PROSTATIC [facility] P LW URINARY TRACT SX R350 FREQUENCY 10-26-2016 [facility]CTURITION [facility] P R90256 UNSPECIFIED 10-11-2016 [facility] A[facility]M BLEPHARITIS LEFT LOWER EYELID J9811 ATELECTASIS 09-01-2016 [facility] R1013 EPIGASTRIC 09-01-2016 [facility] P R7989 OTHER SPEC 09-01-2016 [place] ABNORMAL MEDICAL FINDINGS IMAGING ASS BLOOD CHEMISTRY M791 MYALGIA 08-25-2016 [place] TOWNSEND MD,PSC M5090 CERVICAL 08-16-2016 [facility] DISORDER INC UNS UNS CERVICAL REGION R68087 PAIN IN 08-10-2016 [place] RIGHT MEDICAL SHOULDER IMAGING ASS M5032 OTH CERV 08-10-2016 [place] DISC MEDICAL DEGENERATIO IMAGING ASS N MID-CERVICA L REGION M542 CERVICALGIA 08-10-2016 [facility] R51 HEADACHE 08-10-2016 [facility] P6988US CONTUSION 08-10-2016 [facility] UNS PART PHYSICIANS, HEAD PLLC INITIAL ENCOUNTER R0289DQ UNSPECIFIED 08-10-2016 [place] INJURY OF MEDICAL HEAD IMAGING ASS INITIAL ENCOUNTER N733FNJ STRAIN 08-10-2016 [facility] MUSCLE FASC PHYSICIANS, & TENDON PLLC NECK LEVL INIT ENC C537HKI UNSPECIFIED 08-10-2016 [place] INJURY OF MEDICAL NECK IMAGING ASS INITIAL ENCOUNTER H97427L UNSPECIFIED 08-10-2016 [facility] SPRAIN RT PHYSICIANS, SHOULDER PLLC JOINT INITIAL ENC D4419HA UNS INJURY 08-10-2016 [place] RT SHOULDER MEDICAL UPPER ARM IMAGING ASS INITIAL ENCNTR D126 BENIGN 07-29-2016 [facility] NEOPLASM OF [facility] COLON UNSPECIFIED K635 POLYP OF 07-29-2016 [facility] COLON PHYSICIANS GROUP Z09 ENC F/U 07-29-2016 COMMUNITY EXAM AFTR ANESTH OF CMPL TX OTH THE BLUE THAN MALIG NEOPLSM Z1211 ENCOUNTER 07-29-2016 [facility] SCREENING PHYSICIANS MALIGNANT GROUP NEOPLASM OF COLON M4642 DISCITIS 05-14-2016 [facility] UNSPECIFIED PHYSICIANS CERVICAL GROUP REGION G8929 OTHER 04-23-2016 [facility] CHRONIC PHYSICIANS PAIN GROUP J40 BRONCHITIS 04-07-2016 [facility] NOT PHYSICIANS SPECIFIED GROUP ACUTE OR CHRONIC M5010 CERVICAL 03-29-2016 BOYDAISHWARYA PATTERSONX, DISC D/O , PSC W/RADICULOP ATHY UNS CERV RGN B351 TINEA 03-25-2016 [facility] UNGUIUM PODIATRY E1151 TYPE 2 DM 03-25-2016 [facility] W/DIAB PODIATRY PERIPH ANGIOPATHY W/O GANGRENE M2570 OSTEOPHYTE 03-25-2016 [facility] UNSPECIFIED PODIATRY JOINT T16445 PAIN IN 03-25-2016 [facility] LEFT TOES PODIATRY J0110 ACUTE 03-24-2016 [facility] FRONTAL PHYSICIANS SINUSITIS GROUP UNSPECIFIED [id number] UNS OPEN 03-24-2016 [facility] WOUND UNS PHYSICIANS TOES GROUP W/DAMAGE NAIL INITIAL M5030 OT 02-23-2016 [facility] CERVICAL [facility] DISC INC DEGENERATIO N UNS CERV REGION M5412 RADICULOPAT 02-23-2016 BOYD DEAN HY CERVICAL , PSC REGION R200 ANESTHESIA 01-23-2016 [place] OF SKIN MEDICAL IMAGING ASS Z8603 PERSONAL 01-23-2016 [place] HISTORY MEDICAL NEOPLASM OF IMAGING ASS UNCERTAIN BEHAVIOR 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 Q80335 UNSPECIFIED 01-14-2016 [facility] PTOSIS OF SERV RIGHT FOUNDATION EYELID H9191 UNSPECIFIED 01-14-2016 [facility] HEARING SERV LOSS RIGHT FOUNDATION EAR T98671 FACIAL 01-14-2016 [facility] WEAKNESS SERV FOUNDATION R9089 OT 01-14-2016 [place] [facility] ABNORMAL SERV FIND ON DX FOUNDATION IMAGING CNTRL NERV SYS C66764 PERSONAL 01-14-2016 [facility] HISTORY 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 UNSPECIFIED S11937 CONTACT 12-26-2015 [facility] ANG BLEPHAROCON JUNCTIVITIS RIGHT EYE M5136 OT 12-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 BURT MD, PSC RAL DISC DEGEN LUMBAR REGION R110 NAUSEA 12-03-2015 [facility] R140 ABDOMINAL 11-26-2015 [place] DISTENSION MEDICAL GASEOUS IMAGING ASS B370 CANDIDAL 11-20-2015 [facility] STOMATITIS PHYSICIANS, [facility] E1121 TYPE 2 11-20-2015 [facility] DIABETES [facility] MELLITUS INC W/DIABETIC NEPHROPATHY J329 CHRONIC 11-13-2015 [facility] SINUSITIS PHYSICIANS UNSPECIFIED GROUP H5203 HYPERMETROP 09-08-2015 [facility] ALEM IA BILATERAL M797 FIBROMYALGI 08-29-2015 [facility] A [facility] INC 27921 DEGEN 07-28-2015 BOYD BUX, LUMBAR/LUMB , PSC OSACRAL INTERVERTEB RAL DISC 7244 THORACIC/GINO 07-28-2015 GABBY BURT MD, PSC NEURITIS/RA DICULITIS UNSPEC 7291 UNSPECIFIED 07-28-2015 BOYD DEAN, MYALGIA , PSC AND MYOSITIS V7109 OBSERVATION 07-23-2015 COMPREHEND OF OTHER INC SUSPECTED MENTAL CONDITION 46738 UNSPECIFIED 06-20-2015 [facility] ARTHROPATHY INC OTHER SPECIFIED SITES 6011 CHRONIC 06-03-2015 [place] PROSTATITIS [facility] P 50301 DEGEN 05-06-2015 [place] THORACIC/TH MEDICAL ORACOLUMBAR IMAGING ASS INTERVERTEB RAL DISC 7231 CERVICALGIA 05-06-2015 [facility] 7245 UNSPECIFIED 05-06-2015 [place] BACKACHE MEDICAL IMAGING ASS 7840 HEADACHE 05-06-2015 [facility] 8470 NECK SPRAIN 05-06-2015 [facility] AND STRAIN PHYSICIANS, [facility] 17599 HEAD 05-06-2015 [facility] INJURY, PHYSICIANS, UNSPECIFIED PLLC 92398 HYPERTROPHY 04-29-2015 [facility] W/UR OBST & HOSPITAL P OTH LUTS 60133 URINARY 04-29-2015 [facility] P 7224 DEGENERATIO 04-28-2015 MADAR BUX N OF CERVICAL INTERVERTEB RAL DISC 7234 BRACHIAL 04-28-2015 FREDY DEAN NEURITIS [place] RADICULITIS NOS 46127 DIAB W/O 03-04-2015 [facility] COMP TYPE LAR II/UNS NOT CONSULTANTS STATED O UNCNTRL 2724 OTHER AND 03-04-2015 [facility] UNSPECIFIED [facility] INC HYPERLIPIDE LESTER 4019 UNSPECIFIED 03-04-2015 [place] ESSENTIAL [facility] HYPERTENSIO INC N 83327 UNSPEC HTN 03-04-2015 [facility] HEART LAR DISEASE CONSULTANTS WITHOUT O HEART FAIL 39189 COR 03-04-2015 [place] ATHEROSLERO [facility] UNSPEC INC TYPE VESSEL CAPITAN GRANDE BAND/XAVIER T 04362 OTHER 02-26-2015 [place] DYSPNEA AND MEDICAL [place]AG[place] [address] CHEST PAIN 02-26-2015 [facility] MEDICAL UNSPECIFIED SERV FOUNDATION 61215 OTHER CHEST 02-26-2015 [facility] PAIN PHYSICIANS GROUP 2449 UNSPECIFIED 01-09-2015 [facility] [place] [address] DISPLCMT 01-09-2015 [facility] LUMBAR PHYSICIANS INTERVERT GROUP DISC W/O MYELOPATHY 32469 OTHER 01-09-2015 [facility] MALAISE AND PHYSICIANS FATIGUE GROUP 62023 DIAB W/O 12-28-2014 [facility] MENTION [facility] COMP TYPE INC II/UNS TYPE UNCNTRL 2768 HYPOPOTASSE 12-28-2014 [facility] P 3319 UNSPECIFIED 12-28-2014 [place] CEREBRAL MEDICAL DEGENERATIO IMAGING ASS N 7820 DISTURBANCE 12-28-2014 [facility] OF SKIN MEASE [facility] P 38097 PRECORDIAL 12-28-2014 [facility] PAIN AMBULANCE SERVICE 41286 VOMITING 12-28-2014 [facility] AMBULANCE SERVICE V140 PERSONAL 12-28-2014 [facility] HISTORY OF [place] [facility]ERGY [facility] P PENICILLIN 4414 ABDOMINAL 11-14-2014 [facility] HEALTH WITHOUT MEDICAL G MENTION OF RUPTURE 490 BRONCHITIS 10-30-2014 [facility] NOT PHYSICIANS SPECIFIED GROUP ACUTE OR CHRONIC 55935 UNSPECIFIED 05-07-2014 [facility] ART ORCHITIS AND EPIDIDYMITI S 26433 OTHER 04-16-2014 [facility] CHRONIC [facility] PAIN INC 496 CHRONIC 04-16-2014 [facility] AIRWAY [facility] OBSTRUCTION INC NEC 7242 LUMBAGO 04-16-2014 JAIDEN CAMILLA V1582 PERS HX 04-16-2014 [facility] TOBACCO USE [facility] PRESENTING INC HAZARDS HEALTH V5869 LONG-TERM 04-16-2014 [facility] (CURRENT) [facility] USE OF INC OTHER MEDICATIONS 61295 OTHER 04-02-2014 [facility] CONVULSIONS [facility] INC 8472 LUMBAR 04-02-2014 [facility] III SPRAIN AND AREN STRAIN E9179 OTHER 04-02-2014 [facility] III STRIKING AREN AGAINST W/WO SUBSEQUENT FALL 4139 OTHER AND 03-29-2014 [facility] UNSPECIFIED [facility] ANGINA INC PECTORIS 47346 ING ANDREW 03-29-2014 [facility] W/O MENTION BUBBA OBST/GANGRE N UNILAT/UNSP EC 5738 OTHER 03-29-2014 [facility] SPECIFIED [facility]BA DISORDERS OF LIVER 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 31906 ABDOMINAL 03-29-2014 [facility] III PAIN OTHER AREN SPECIFIED SITE 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 35007 ACUTE 03-03-2014 [facility] GASTRITIS [facility] WITHOUT INC MENTION OF HEMORRHAGE 41346 UNS 03-03-2014 [facility] GASTRITIS&G ASTRODUODIT IS W/O MENTION HEMORR 7213 LUMBOSACRAL 01-17-2014 VITA TREVINO SPONDYLOSIS WITHOUT MYELOPATHY 7831 ABNORMAL 10-13-2013 [facility] WEIGHT GAIN [facility] INC 32298 DIARRHEA 10-13-2013 [facility] INC V0481 NEED 08-23-2013 NATHAL[facility] RAI PROPHYLACTI AREN C VACCINATION &INOCULATIO N FLU 3510 BELLS PALSY 07-24-2013 [facility] 7218 OTHER 07-24-2013 [facility] DISORDERS OF SPINE 79379 OTH 07-18-2013 [facility] MIGRAINE [facility] W/O INTRACT INC W/O STATUS MIGRAINOSUS 16046 OTHER 06-18-2013 [facility] CONDITIONS BUBBA OF BRAIN 7220 DISPLCMT 06-18-2013 [facility] CERV [facility] INTERVERT DISC WITHOUT MYELOPATHY 7249 OTHER 06-18-2013 [facility] UNSPECIFIED BUBBA BACK DISORDER V571 OTHER 05-28-2013 [facility] PHYSICAL [facility] THERAPY INC 69536 UNSPECIFIED 03-06-2013 [facility] P SHOULDER REGION 32496 PAIN IN 03-06-2013 [facility] EMERGENCY SHOULDER SERVICES REGION 7295 PAIN IN 03-06-2013 [facility] SOFT [facility]UB[facility] TISSUES OF LIMB 37930 OTHER 03-06-2013 [facility] NONSPECIFIC [facility] ABNORMAL FINDING OF LUNG FIELD 17919 MICROSCOPIC 01-26-2013 NATHALY RAI HEMATURIA AREN 8460 SPRAIN AND 01-26-2013 NATHALY RAI STRAIN OF AREN LUMBOSACRAL 76194 OTHER 01-25-2013 [facility] DISEASES OF BUBBA SPLEEN 4411 THORACIC 01-25-2013 [facility] ANEURYSM, BUBBA RUPTURED 5589 OTH&UNSPEC 01-25-2013 [place] NONINFECTIO [facility] P GASTROENTER ITIS&COLITI S 07920 HYPERTROPHY 01-25-2013 [facility] PROSTATE BUBBA W/O UR OBST & OTH LUTS 6019 UNSPECIFIED 12-30-2012 [facility] PROSTATITIS INC 7823 EDEMA 12-30-2012 [facility] INC 72534 UNSPECIFIED 12-29-2012 NATHALY RAI AREN CONSTIPATIO N 43390 ABDOMINAL 12-15-2012 [facility] P 4400 ATHEROSCLER 12-14-2012 [facility] OSIS OF BUBBA AORTA 91506 ABDOMINAL 12-14-2012 [facility] PAIN, UNSPECIFIED SITE 16125 HEMATURIA 08-29-2012 [place] UNSPECIFIED [facility]ICAL IMAGING ASS 18970 OTHER 08-21-2012 [place] SPECIFIED MEDICAL DISORDERS IMAGING ASS OF BLADDER 27322 ABDOMINAL 08-08-2012 [facility] PAIN RIGHT BUBBA LOWER QUADRANT 4419 AORTIC 08-01-2012 JAMA ANTONY ANEUR UNSPEC SITE WITHOUT MENTION RUPTURE 7881 DYSURIA 07-24-2012 JAMA ANTONY 25882 PRIMARY 06-14-2012 NICK LACRIMAL JAM ATROPHY 54157 VITREOUS 06-14-2012 NICK DEGENERATIO JAM N 92978 UNSPECIFIED 04-04-2012 KANE FRERARA BLEPHAROCON JUNCTIVITIS 94337 ESOPHAGEAL 04-04-2012 [facility] REFLUX 5533 DIAPHRAGMAT 04-04-2012 [facility] ANDREW W/O MENTION OBSTRUCTION /GANGREN 26774 OTHER LATE 03-25-2012 [facility] EFFECTS OF CEREBROVASC ULAR DISEASE V711 OBSERVATION 03-24-2012 [place] FOR MEDICAL SUSPECTED IMAGING ASS MALIGNANT NEOPLASM 436 ACUTE BUT 02-28-2012 NATHALY RAI ILL-DEFINED AREN CEREBROVASC ULAR DISEASE 39833 UNS 12-22-2011 [facility] MALIGNANT NEOPLASM EYELID INCLUDING CANTHUS 86505 BASAL CELL 12-22-2011 [place] [facility] ANESTHESIA OF EYELID ASSOC L INCLUDING CANTHUS 36879 OTHER 12-22-2011 [facility] CHRONIC DERMATITIS DUE TO SOLAR RADIATION 42898 OTHER 11-28-2011 [facility] SPECIFIED BUBBA ACQUIRED DEFORMITY OF HEAD 4660 ACUTE 10-11-2011 NATHALY RAI BRONCHITIS AREN 7862 COUGH 10-11-2011 [facility] 2392 NEOPLASMS 10-01-2011 [facility] UNSPEC NATURE BONE SOFT TISSUE&SKIN 7226 DEGENERATIO 09-21-2011 [place] [place] INTERVERTEB INTERNAL RAL DISC MED SITE UNSPEC 89255 BLEPHARITIS 09-07-2011 [facility] , UNSPECIFIED 3670 HYPERMETROP 08-20-2011 IS[facility] IA VISION 02785 ABDOMINAL 07-27-2011 NEW PAIN RIGHT [facility] UPPER CLINIC PSC QUADRANT 7210 CERVICAL 07-22-2011 NEW SPONDYLOSIS [facility] WITHOUT CLINIC PSC MYELOPATHY 2250 BENIGN 06-15-2011 NEW NEOPLASM OF [facility] BRAIN CLINIC PSC 03671 SHORTNESS 06-03-2011 [place] OF [facility] MEDICAL IMAGING ASS 1101 DERMATOPHYT 05-18-2011 [facility] OSIS OF [place] NAIL INTERNAL MED 7822 LOCALIZED 05-18-2011 [facility] SUPERFICIAL [place] SWELLING INTERNAL MASS OR MED LUMP 7906 OTHER 04-13-2011 [facility] ABNORMAL [place] BLOOD INTERNAL CHEMISTRY MED 36904 DYSPHAGIA 02-25-2011 [facility] UNSPECIFIED [facility] INC 7871 HEARTBURN 02-16-2011 C CELESTINO ADAME MD PSC 88133 ABDOMINAL 02-16-2011 C CELESTINO KENYON, DEEP EPIGASTRIC PSC 1919 MALIGNANT 02-03-2011 [facility] NEOPLASM OF [place] BRAIN INTERNAL UNSPECIFIED MED SITE 51597 DYSPHAGIA 02-03-2011 [facility] DUE TO [place] CEREBROVASC INTERNAL ULAR MED DISEASE 1104 DERMATOPHYT 12-14-2010 [facility] OSIS OF [place] FOOT INTERNAL MED 9953 ALLERGY 12-12-2010 [facility] UNSPECIFIED [place] NOT INTERNAL ELSEWHERE MED CLASSIFIED 7821 RASH AND 12-09-2010 [facility] OTHER [place] NONSPECIFIC INTERNAL SKIN MED ERUPTION 7079 CHRONIC 12-07-2010 [facility] ULCER OF [place] UNSPECIFIED INTERNAL SITE MEDI 3688 OTHER 09-21-2010 [place] SPECIFIED MEDICAL VISUAL IMAGING ASS DISTURBANCE S 25533 MUSCLE 09-21-2010 [facility] WEAKNESS [facility] (GENERALIZE INC D) 84823 FACIAL 09-21-2010 [facility] WEAKNESS [facility] INC 04688 NAUSEA WITH 07-27-2010 [facility] AMBULANCE SERVICE 76809 OTHER AND 07-25-2010 [facility] UNSPECIFIED [place] INTERNAL CONJUNCTIVI MED TIS 5409 ACUTE 05-05-2010 [facility] WITHOUT HOSPITAL MENTION PROF SERV PERITONITIS 541 APPENDICITI 05-05-2010 [place] S, MEDICAL UNQUALIFIED IMAGING ASSOCIATES 7804 DIZZINESS 05-05-2010 [place] AND MEDICAL GIDDINESS IMAGING ASSOCIATES V4589 OTHER 05-05-2010 [facility] OTHER PROF SERV 23631 PAINFUL 11-05-2009 [facility] [place] INTERNAL MED 79809 OTHER SPEC 09-03-2009 [place] [facility] WITHOUT [facility] MENTION HEMORRHAGE 19205 DUODENITIS 09-03-2009 [place] [facility] MENTION OF INC HEMORRHAGE 59035 NAUSEA 09-03-2009 [facility] & ALONE CYTOLOGY LAB 79638 UNSPECIFIED 05-07-2009 [facility] TIS PROF SERV 4280 CONGESTIVE 04-11-2009 [facility] [place] FAILURE INTERNAL UNSPECIFIED MED 07272 OTHER 01-13-2009 [facility] INTERNAL MED 4439 UNSPECIFIED 12-20-2008 [facility] VASCULAR INC DISEASE 98760 ONYCHIA AND 12-16-2008 [facility] [place] INTERNAL MED 2396 NEOPLASM OF 11-27-2008 [facility]LES[facility] ANDREA UNSPECIFIED NATURE OF BRAIN 3384 CHRONIC 11-13-2008 [facility] [place] [place] SYNDROME INTERNAL MED 4659 ACUTE URIS 10-30-2008 [facility] UNSPECIFIED INTERNAL SITE MED 61317 ABDOMINAL 07-17-2008 [facility] LEFT CLINIC UPPER LABORATORY QUADRANT 88005 DISORDER OF 06-25-2008 [facility] CARTILAGE INC UNSPECIFIED 3674 PRESBYOPIA 04-11-2008 [facility] MIDDLE[facility] 7802 SYNCOPE AND 03-29-2008 [facility] 33361 TRANSIENT 03-28-2008 [facility] SERVICE AWARENESS 4011 ESSENTIAL 03-14-2008 [facility] N, BENIGN CLINIC PSC 04271 ANNIE HTN 02-27-2008 [facility] DIS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 2409 GOITER, 02-20-2008 [facility] 7931 NONSPEC 02-20-2008 [place] [facility] MEDICAL OTH EXAM IMAGING BODY [...] 80 4- 9- 00 00 SI ve VA 21 20 20 49 DE DE 61 17 17 91 0 24 PH 40 AR MA MG CY TA OF BL CY ET NT HI AN A IN C ME 23 08 30 30 00 EA Ac TF 15 -2 -[address] ti OR 50 4- 9- 00 00 SI ve VA 10 20 20 49 DE N 21 [...] 5 49 PH CE AR TA MA VA CY NO PH OF N CY 10 [...] 50 4- 5- 00 00 SI ve VA 10 20 20 49 DE N 21 17 17 54 HC 0 03 PH L AR 50 MA 0 CY MG OF TA CY BL NT ET HI AN A IN C FU 00 07 08 30 30 00 EA Ac RO 37 -2 -[address] ti SE 80 4- 5- 00 00 SI ve VA 21 20 20 49 DE DE 61 [...] 5 66 PH CE AR TA MA VA CY NO PH OF N CY 10 [...] 50 2- 8- 00 00 SI ve VA 10 20 20 49 DE N 21 [...] 80 6- 1- 00 00 SI ve VA 21 20 20 49 DE DE 61 [...] 5 80 PH CE AR TA MA VA CY NO PH OF N CY 10 [...] 50 2- 3- 00 00 SI ve VA 10 20 20 48 DE N 21 [...] 5 38 PH CE AR TA MA VA CY NO PH OF N CY 10 NT -3 HI 25 AN A IN C FU 00 04 02 30 30 00 EA Ac RO 37 -0 -[address] ti SE 80 9- 9- 00 00 SI ve VA 21 20 20 48 DE DE 61 [...] OR 31 1- 6- 00 SI ve VA 04 20 20 48 DE N 80 [...] 40 0- 2- 00 00 SI ve VA 62 20 20 48 DE DE 51 [...] 5 38 PH CE AR TA MA VA CY NO PH OF N CY 10 NT -3 HI 25 AN A IN C ES 65 03 04 30 30 00 EA Ac CI 86 -2 -[address] ti TA 20 1- 1- 00 00 SI ve LO 37 20 20 48 DE ID 40 17 17 05 AM 1 71 [...] 31 0- 1- 00 00 SI ve VA 04 20 20 48 DE N 80 [...] 40 9- 4- 00 00 SI ve VA 62 20 20 47 DE DE 51 [...] 5 33 PH CE AR TA MA VA CY NO PH OF N CY 10 [...] 50 7- 4- 00 00 SI ve VA 10 20 20 47 DE N 21 17 17 66 HC 0 02 PH L AR 50 MA 0 CY MG OF TA CY BL NT ET HI AN A IN C ES 65 02 03 30 30 00 EA Ac CI 86 -1 -[address] ti TA 20 7- 4- 00 SI ve LO 37 20 20 47 DE ID 40 17 17 66 AM 1 03 [...] 5 63 PH CE AR TA MA VA CY NO PH OF N CY 10 [...] 40 0- 3- 00 00 SI ve VA 62 20 20 47 DE DE 51 [...] 50 6- 7- 00 00 SI ve VA 10 20 20 47 DE N 21 [...] 5 53 PH CE AR TA MA VA CY NO PH OF N CY 10 [...] 40 6- 7- 00 00 SI ve VA 62 20 20 47 DE DE 51 [...] 50 5- 0- 00 00 SI ve VA 10 20 20 46 DE N 21 [...] 5 68 PH CE AR TA MA VA CY NO PH OF N CY 10 [...] RT 40 9- 9- 00 SI 16 VA ve AN 22 20 20 0 DE [...] PE 40 4- 4- 00 SI 87 VA ve NT 66 20 20 0 DE E IN 20 13 13 JR 1 PH 30 AR WI 0 MA LL MG CY IA M CA OF F PS UL CY E NT HI AN A SI 16 11 11 0 30 30 EA 33 MC Ac MV 71 -1 -[address] 61 KE ti 40 2- 2- 00 SI 39 VA ve TA 68 20 20 0 DE E TI 40 13 13 JR N 3 PH 40 AR WI MA LL MG CY IA M TA OF F BL ET CY NT HI AN A LO 16 06 11 4 15 15 EA 31 MC Ac SA 71 -1 -[address] 99 KE ti RT 40 0- 2- 00 SI 99 VA ve AN 22 20 20 0 DE [...] RA 50 4- 1- 00 SI 09 VA ve ZO 13 20 20 0 DE E LE 63 13 [address] AR WI MA LL 40 CY IA M MG OF F CA CY PS NT UL HI E AN A ME 00 08 11 3 30 30 EA 32 Ac TF 09 -0 -[address] 52 KE ti OR 31 2- 9- 00 SI 59 VA ve VA 04 20 20 0 DE E N 81 13 13 JR HC 0 PH L AR WI 50 MA LL 0 CY IA MG M OF F TA BL CY ET NT HI AN A FU 63 08 11 2 30 30 EA 32 Ac RO 30 -2 -[address] 80 KE ti SE 40 9- 5- 00 SI 32 VA ve VA 62 20 20 0 DE E DE 51 13 13 JR 0 PH 40 AR WI MA LL MG CY IA M TA OF F BL ET CY NT HI AN A LE 00 07 11 3 30 30 EA 32 Ac VO 37 -2 -[address] 46 KE ti TH 81 6- 2- 00 SI 48 VA ve YR 80 20 20 0 DE [...] [place] 83 4- 2- 00 SI 89 VA ve EP 00 20 20 0 DE E AM 45 13 13 JR 1 0 PH AR WI MG MA LL CY IA TA M BL OF F ET CY NT HI AN A LO 16 06 10 4 15 15 EA 31 MC Ac SA 71 -1 -[address] 99 KE ti RT 40 0- 5- 00 SI 99 VA ve AN 22 20 20 0 DE [...] AZ 83 4- 4- 00 SI 89 VA ve EP 00 20 20 0 DE E AM 45 13 13 JR 1 0 PH AR WI MG MA LL CY IA TA M BL OF F ET CY NT HI AN A SI 16 08 10 2 30 30 EA 32 MC Ac MV 71 -0 -[address] 57 KE ti 40 7- 2- 00 SI 30 VA ve TA 68 20 20 0 DE E TI 40 13 13 JR N 3 PH 40 AR WI MA LL MG CY IA M TA OF F BL ET CY NT HI AN A OM 62 09 10 2 30 30 EA 32 MC Ac EP 17 -0 -[address] 86 KE ti RA 50 4- 9- 00 SI 09 VA ve ZO 13 20 20 0 DE E LE 63 13 [address] AR [place] MA LL 40 CY IA M MG OF F CA CY PS NT UL HI E AN A ME 00 08 10 3 30 30 EA 32 MC Ac TF 09 -0 -[address] 52 KE ti OR 31 2- 7- 00 SI 59 VA ve VA 04 20 20 0 DE E N 81 13 13 JR HC 0 PH L AR WI 50 MA LL 0 CY IA MG M OF F TA BL CY ET NT HI AN A FU 63 08 10 2 30 30 EA 32 MC Ac RO 30 -2 -[address] 80 KE ti SE 40 9- 3- 00 SI 32 VA ve VA 62 20 20 0 DE E DE 51 13 13 JR 0 PH 40 AR WI MA LL MG CY IA M TA OF F BL ET CY NT HI AN A EX 00 08 10 2 30 30 EA 23 MC Ac FO 07 -1 -[address] 73 KE ti RG 80 9- 9- 00 SI 45 VA ve E 48 20 20 DE E 10 91 11 11 JR -1 5 PH 60 AR [place] MA LL MG CY IA M TA OF F BL ET CY NT HI AN A ME 00 08 10 1 30 30 EA 23 BE Ac TF 09 -2 -[address] 77 SS ti OR 31 3- 8- 00 SI 83 ON ve VA 04 20 20 DE N 81 11 [...] AC 40 4- 4- 00 SI 01 VA ve ET 70 20 20 DE E [...] UM 65 6- 0- 00 SI 46 VA ve 04 [address] 03 11 11 JR 1 PH 40 AR [place] MA LL MG CY IA M CA OF F PS UL CY E NT HI AN A FU 63 09 10 3 30 30 EA 24 MC Ac RO 30 -1 -[address] 04 KE ti SE 40 2- 0- 00 SI 35 VA ve VA 62 20 20 DE E DE 51 [...] ti 10 7- 7- 00 SI 81 VA ve 54 20 20 0 DE E [...] RG 80 9- 4- 00 SI 45 VA ve E 48 20 20 DE E 10 91 11 11 JR -1 5 PH 60 AR WI MA LL MG CY IA M TA OF F BL ET CY NT HI AN A SI 16 05 09 3 30 30 EA 22 MC Ac MV 71 -3 -[address] 74 KE ti 40 1- 4- 00 SI 35 VA ve TA 68 20 20 DE E [...] 2- 2- 00 SI 16 ON ve VA 62 20 20 DE DE 51 11 [...] ti 10 7- 7- 00 SI 45 VA ve 54 20 20 0 DE E 00 11 11 JR 1 PH AR WI MA LL CY IA M OF F CY NT HI AN A CL 00 09 09 0 90 30 EA 23 MC Ac ON 09 -0 -[address] 98 KE ti AZ 30 6- 6- 00 SI 47 VA ve EP 83 20 20 DE E AM 20 11 11 JR 1 PH 0. AR [place] 5 MA LL MG CY IA M TA OF F BL ET CY NT HI AN A NE 00 08 08 2 30 30 EA 23 MC Ac XI 18 -3 -[address] 89 KE ti UM 65 1- 1- 00 SI 75 VA ve 04 [address] [...] 3- 3- 00 SI 83 ON ve VA 04 20 20 DE N 81 11 [...] RG 80 9- 9- 00 SI 45 VA ve E 48 20 20 DE E [...] 6- 6- 00 SI 13 ON ve VA 62 20 20 DE DE [address] 0 PH EP 40 AR HE MA N MG CY A TA OF BL ET CY NT HI AN A SI 16 05 08 3 30 30 EA 22 MC Ac MV 71 -3 -[address] 74 KE ti 40 1- 6- 00 SI 35 VA ve TA 68 20 20 DE E TI 40 11 11 JR N 3 PH 40 AR [place] MA LL MG CY IA M TA OF F BL ET CY NT HI AN A CL 00 08 08 0 90 30 EA 23 MC Ac ON 09 -0 -[address] 54 KE ti AZ 30 5- 5- 00 SI 97 VA ve EP 83 20 20 DE E AM 20 11 11 JR 1 PH 0. AR [place] 5 MA LL MG CY IA M TA OF F BL ET CY NT HI AN A ZE 66 06 08 3 30 30 EA 23 MC Ac TI 58 -2 -[address] 05 KE ti A 20 3- 2- 00 SI 21 VA ve 10 41 20 20 DE E 43 11 11 JR MG 1 PH AR WI TA MA LL BL CY IA ET M OF F CY NT HI AN A NE 00 05 08 2 30 30 EA 22 MC Ac XI 18 -2 -[address] 69 KE ti UM 65 5- 2- 00 SI 36 VA ve 04 [address] [...] RG 80 1- 6- 00 SI 11 VA ve E 48 20 20 DE E 10 91 11 11 JR -1 5 PH 60 AR [place] MA LL MG CY IA M TA OF F BL ET CY NT HI AN A ME 00 05 07 1 60 30 EA 22 BE Ac TF 09 -1 -[address] 56 SS ti OR 31 7- 1- 00 SI 55 ON ve VA 04 20 20 DE N 81 11 [...] AZ 30 5- 5- 00 SI 75 VA ve EP 83 20 20 DE E AM 20 11 11 JR 1 PH 0. AR [place] 5 MA LL MG CY IA M TA OF F BL ET CY NT HI AN A FU 63 05 07 2 30 30 EA 22 BE Ac RO 30 -0 -[address] 36 SS ti SE 40 3- 4- 00 SI 75 ON ve VA 62 20 20 DE DE [address] 0 PH EP 40 AR HE MA N MG CY A TA OF BL ET CY NT HI AN A SI 16 05 07 3 30 30 EA 22 MC Ac MV 71 -3 -[address] 74 KE ti 40 2- 00 SI 35 VA ve TA 68 20 20 DE E TI 40 11 11 JR N 3 PH 40 AR [place] MA LL MG CY IA M TA OF F BL ET CY NT HI AN A NE 00 05 06 2 30 30 EA 22 MC Ac XI 18 -2 -[address] 69 KE ti UM 65 5- 5- 00 SI 36 VA ve 04 [address] 03 11 11 JR 1 PH 40 AR [place] MA LL MG CY IA M CA OF F PS UL CY E NT HI AN A ZE 66 06 06 3 30 30 EA 23 MC Ac TI 58 -2 -[address] 05 KE ti A 20 3- 3- 00 SI 21 VA ve 10 41 20 20 DE E [...] RG 80 1- 5- 00 SI 11 VA ve E 48 20 20 DE E [...] AZ 30 7- 7- 00 SI 61 VA ve EP 83 20 20 DE E AM 20 11 11 JR 1 PH 0. AR [place] 5 MA LL MG CY IA M TA OF F BL ET CY NT HI AN A FU 63 05 06 2 30 30 EA 22 BE Ac RO 30 -0 -[address] 36 SS ti SE 40 3- 2- 00 SI 75 ON ve VA 62 20 20 DE DE [address] 0 PH EP 40 AR HE MA N MG CY A TA OF BL ET CY NT HI AN A SI 16 05 05 3 30 30 EA 22 MC Ac MV 71 -3 -[address] 74 KE ti 40 1- 1- 00 SI 35 VA ve TA 68 20 20 DE E TI 40 11 11 JR N 3 PH 40 AR [place] MA LL MG CY IA M TA OF F BL ET CY NT HI AN A NE 00 05 05 2 30 30 EA 22 MC Ac XI 18 -2 -[address] 69 KE ti UM 65 5- 6- 00 SI 36 VA ve 04 [address] [...] 7- 7- 00 SI 55 ON ve VA 04 20 20 DE N [address] HC 0 PH EP L AR HE 50 MA N 0 CY A MG OF TA BL CY ET NT HI AN A EX 00 04 05 3 30 30 EA 22 MC Ac FO 07 -1 -[address] 06 KE ti RG 80 1- 6- 00 SI 11 VA ve E 48 20 20 DE E [...] 3- 3- 00 SI 75 ON ve VA 62 20 20 DE DE 51 11 [...] UM 65 1- 5- 00 SI 04 VA ve 04 [address] 03 11 11 JR 1 PH 40 AR [place] MA LL MG CY IA M CA OF F PS UL CY E NT HI AN A SI 16 02 04 2 30 30 EA 21 MC Ac MV 71 -1 -[address] 26 KE ti 40 6- 5- 00 SI 51 VA ve TA 68 20 20 DE E TI 40 11 11 JR N 3 PH 40 AR [place] MA LL MG CY IA M TA OF F BL ET CY NT HI AN A EX 00 04 04 3 30 30 EA 22 MC Ac FO 07 -1 -[address] 06 KE ti RG 80 1- SI 11 VA ve E 48 20 20 DE E 10 91 11 11 JR -1 5 PH 60 AR [place] MA LL MG CY IA M TA OF F BL ET CY NT HI AN A 00 04 04 0 12 30 EA 22 MC Ac 59 -1 -[address] 05 KE ti 10 0- 0- 00 SI 59 VA ve 54 20 20 0 DE E 00 11 11 JR 1 PH AR WI MA LL CY IA M OF F CY NT HI AN A CL 00 04 04 0 90 30 EA 22 MC Ac ON 09 -0 -[address] 01 KE ti AZ 30 6- 6 00 SI 40 VA ve EP 83 20 20 DE E AM 20 11 11 JR 1 PH 0. [place] 5 MA LL MG CY IA M TA OF F BL ET CY NT HI AN A HY 00 04 04 2 30 30 EA [address] 59 -0 -[address] 97 KE ti OC 10 4- 4- 00 SI 70 VA ve HL 34 20 20 DE E [...] DE TA RA 10 11 11 D VA 5 PH CA DE AR MP 5 MA BE CY LL MG K OF TA BL CY ET NT HI AN A NE 00 02 03 2 30 30 EA 21 MC Ac XI 18 -2 -[address] 33 KE ti UM 65 1- 2- 00 SI 04 VA ve 04 [address] 03 11 11 JR 1 PH 40 AR [place] MA LL MG CY IA M CA OF F PS UL CY E NT HI AN A SI 16 02 03 2 30 30 EA 21 MC Ac MV 71 -1 -[address] 26 KE ti 40 6- 2- 00 SI 51 VA ve TA 68 20 20 DE E [...] RG 80 3 9 00 SI 32 VA ve E 48 20 20 DE E 10 91 10 11 JR -1 5 PH 60 AR [place] MA LL MG CY IA M TA OF F BL ET CY NT HI AN A ID 00 01 03 2 20 5 EA 20 MC Ac OM 78 -1 -[address] 84 KE ti ET 11 7 9 SI 38 VA ve NG 83 20 20 DE E ZI 01 11 11 JR NE 0 PH AR WI 25 MA LL CY IA MG M OF F TA BL CY ET NT HI AN A CL 00 03 03 0 90 30 EA 21 MC Ac ON 09 -0 -[address] 58 KE ti AZ 30 7 7 SI 91 VA ve EP 83 20 20 DE E AM 20 11 11 JR 1 PH 0. AR [place] 5 MA LL MG CY IA M TA OF F BL ET CY NT HI AN A HY 00 12 03 2 30 30 EA [address] 59 -2 -[address] 58 KE ti OC 10 9- 4 SI 00 VA ve HL 34 20 20 DE E [...] 33 KE ti UM 65 SI 04 VA ve 04 [address] 03 11 11 JR 1 PH 40 AR [place] MA LL MG CY IA M CA OF F PS UL CY E NT HI AN A FL 00 01 02 1 7. 7 EA 20 MC Ac UC 17 -1 -[address] 81 KE ti ON 25 5- 6- 0 SI 97 VA ve AZ 41 20 20 DE E OL 14 11 11 JR E 6 PH 10 AR WI 0 MA LL MG CY IA M TA OF F BL ET CY NT HI AN A SI 16 02 02 2 30 30 EA 21 MC Ac MV 71 -1 -[address] 26 KE ti 40 6 6 00 SI 51 VA ve TA 68 20 20 DE E TI 40 11 11 JR N 3 PH 40 AR WI MA LL MG CY IA M TA OF F BL ET CY NT HI AN A [place] 00 01 02 1 [address] 16 -1 -[address] 84 KE ti AT 80 7- 5- 00 SI 39 VA ve IN 08 20 20 DE E -T 16 11 11 JR RI 0 PH AM AR WI CI MA LL NO CY IA LO M NE OF F CR CY EA NT M HI AN A 00 02 02 0 12 30 EA 21 Ac 59 -1 -[address] 20 KE ti 10 SI 16 VA ve 54 20 20 0 DE E 00 11 11 JR 1 PH AR WI MA LL CY IA M OF F CY NT HI AN A CL 00 12 02 2 90 30 EA 20 Ac ON 09 -0 -[address] 32 KE ti AZ 30 9 7- 00 SI 83 VA ve EP 83 20 20 DE E AM 20 10 11 JR 1 PH 0. [place] 5 MA LL MG CY IA M TA OF F BL ET CY NT HI AN A EX 00 12 02 3 30 30 EA 20 MC Ac FO 07 -0 -[address] 24 KE ti RG 80 3- 5- 00 SI 32 VA ve E 48 20 20 DE E 10 91 10 11 JR -1 5 PH 60 AR [place] MA LL MG CY IA M TA OF F BL ET CY NT HI AN A HY 00 12 01 2 30 30 EA [address] 59 -2 -[address] 58 KE ti OC 10 9- 0- 00 SI 00 VA ve HL 34 20 20 DE E [...] UM 65 8- 0- 00 SI 05 VA ve 04 [address] 03 10 11 JR 1 PH 40 AR [place] MA LL MG CY IA M CA OF F PS UL CY E NT HI AN A ID 00 01 01 2 20 5 EA 20 MC Ac OM 78 -1 -[address] 84 KE ti ET 11 7- 7- 00 SI 38 VA ve NG 83 20 20 DE E ZI 01 11 11 JR NE 0 PH AR WI 25 MA LL CY IA MG M OF F TA BL CY ET NT HI AN A [place] 01 01 1 60 4 EA [address] 16 -1 -[address] 84 KE ti AT 80 7- 7- 00 SI 39 VA ve IN 08 20 20 DE E -T 16 11 11 JR RI 0 PH AM AR WI CI MA LL NO CY IA LO M NE OF F CR CY EA NT M HI AN A SI 16 12 01 1 30 30 EA 20 MC Ac MV 71 -1 -[address] 42 KE ti 40 6- 5- 00 SI 49 VA ve TA 68 20 20 DE E TI 40 10 11 JR N 3 PH 40 AR [place] MA LL MG CY IA M TA OF F BL ET CY NT HI AN A FL 00 01 01 1 7. 7 EA 20 MC Ac UC 17 -1 -[address] 81 KE ti ON 25 5- 5- 0 SI 97 VA ve AZ 41 20 20 DE E OL 14 11 11 JR E 6 PH 10 AR WI 0 MA LL MG CY IA M TA OF F BL ET CY NT HI AN A 00 01 01 0 30 15 EA 20 MC Ac 14 -1 -[address] 81 KE ti 31 5- 5- 00 SI 98 VA ve 47 20 20 DE E 70 11 11 JR 5 PH AR WI MA LL CY IA M OF F CY NT HI AN A MU 00 01 01 0 22 4 EA 20 MC Ac PI 09 - -[address] 81 KE ti RO 31 4- 4- 00 SI 11 VA ve CI 01 20 20 DE E [...] AM 60 0- 0- 00 SI 99 VA ve ET 27 20 20 DE E HO 20 11 11 JR XA 5 PH ZO AR WI LE MA LL -T CY IA MP M OF F DS CY TA NT BL HI ET AN A MU 00 01 01 0 22 4 EA 20 MC Ac PI 09 -[address] 76 KE ti RO 31 0- 0- 00 SI 00 VA ve CI 01 20 20 DE E N 04 11 11 JR 2% 2 PH AR WI OI MA LL NT CY IA ME M NT OF F CY NT HI AN A CL 00 12 01 2 90 30 EA 20 MC Ac ON 09 -0 -[address] 32 KE ti AZ 30 9- 8- 00 SI 83 VA ve EP 83 20 20 DE E AM 20 10 11 JR 1 PH 0. AR [place] 5 MA LL MG CY IA M TA OF F BL ET CY NT HI AN A EX 00 12 01 3 30 30 EA 20 MC Ac FO 07 -0 -[address] 24 KE ti RG 80 3- 4- 00 SI 32 VA ve E 48 20 20 DE E 10 91 10 11 JR -1 5 PH 60 AR [place] MA LL MG CY IA M TA OF F BL ET CY NT HI AN A HY 00 12 12 2 30 30 EA [address] 59 -2 -[address] 58 KE ti OC 10 9 SI 00 VA ve HL 34 20 20 DE E [...] UM 65 8- 0- 00 SI 05 VA ve 04 [address] 03 10 10 JR 1 PH 40 AR [place] MA LL MG CY IA M CA OF F PS UL CY E NT HI AN A SI 16 12 12 1 30 30 EA 20 MC Ac MV 71 -1 -[address] 42 KE ti 40 6 6 00 SI 49 VA ve TA 68 20 20 DE E TI 40 10 10 JR N 3 PH 40 AR [place] MA LL MG CY IA M TA OF F BL ET CY NT HI AN A CL 00 12 12 2 90 30 EA 20 MC Ac ON 09 -0 -[address] 32 KE ti AZ 30 SI 83 VA ve EP 83 20 20 DE E AM 20 10 10 JR 1 PH 0. [place] 5 MA LL MG CY IA M TA OF F BL ET CY NT HI AN A EX 00 12 12 3 30 30 EA 20 MC Ac FO 07 -0 -[address] 24 KE ti RG 80 3- 3 00 SI 32 VA ve E 48 20 20 DE E 10 91 10 10 JR -1 5 PH 60 AR [place] MA LL MG CY IA M TA OF F BL ET CY NT HI AN A HY 00 09 11 2 30 30 EA [address] 59 -2 -[address] 23 KE ti OC 10 SI 17 VA ve HL 34 20 20 DE E [...] UM 65 8- 0- 00 SI 05 VA ve 04 [address] 03 10 10 JR 1 PH 40 AR [place] MA LL MG CY IA M CA OF F PS UL CY E NT HI AN A SI 16 08 11 3 30 30 EA 18 MC Ac MV 71 -0 -[address] 64 KE ti 40 9- 5- 00 SI 89 VA ve TA 68 20 20 DE E TI 40 10 10 JR N 3 PH 40 AR [place] MA LL MG CY IA M TA OF F BL ET CY NT HI AN A CL 00 11 11 0 90 30 EA 19 MC Ac ON 09 -0 -[address] 88 KE ti AZ 30 8- 8- 00 SI 62 VA ve EP 83 20 20 DE E AM 20 10 10 JR 1 PH 0. AR [place] 5 MA LL MG CY IA M TA OF F BL ET CY NT HI AN A EX 00 05 11 5 30 30 EA 17 MC Ac FO 07 -2 -[address] 70 KE ti RG 80 2- 3- 00 SI 24 VA ve E 48 20 20 DE E 10 91 10 10 JR -1 5 PH 60 AR [place] MA LL MG CY IA M TA OF F BL ET CY NT HI AN A LE 00 08 10 2 30 30 EA 18 MC Ac VO 37 -1 -[address] 75 KE ti TH 81 8- 3 00 SI 58 VA ve YR 80 20 20 DE E OX 30 10 10 JR IN 1 PH E AR WI 50 MA LL CY IA MC M G OF F TA BL CY ET NT HI AN A HY 00 09 10 2 30 30 EA [address] 59 -2 -[address] 23 KE ti OC 10 1- 3- 00 SI 17 VA ve HL 34 20 20 DE E [...] UM 65 8- 8- 00 SI 05 VA ve 04 [address] 03 10 10 JR 1 PH 40 AR [place] MA LL MG CY IA M CA OF F PS UL CY E NT HI AN A SI 16 08 10 3 30 30 EA 18 MC Ac MV 71 -0 -[address] 64 KE ti 40 9- 5- 00 SI 89 VA ve TA 68 20 20 DE E TI 40 10 10 JR N 3 PH 40 AR [place] MA LL MG CY IA M TA OF F BL ET CY NT HI AN A 00 10 10 0 12 30 EA 19 MC Ac 59 -1 -[address] 53 KE ti 10 3- 3 00 SI 11 VA ve 54 20 20 0 DE E 00 10 10 JR 1 PH AR WI MA LL CY IA M OF F CY NT HI AN A CL 00 10 10 0 90 30 EA 19 Ac ON 09 -0 -[address] 46 KE ti AZ 30 8 8 SI 44 VA ve EP 83 20 20 DE E AM 20 10 10 JR 1 PH 0. AR WI 5 MA LL MG CY IA M TA OF F BL ET CY NT HI AN A EX 00 05 10 5 30 30 EA 17 MC Ac FO 07 -2 -[address] 70 KE ti RG 80 2- 2- 00 SI 24 VA ve E 48 20 20 DE E 10 91 10 10 JR -1 5 PH 60 AR [place] MA LL MG CY IA M TA OF F BL ET CY NT HI AN A GALLAGHER 53 09 09 0 20 10 EA 19 MC Ac LF 74 -2 -[address] 28 KE ti AM 60 SI 32 VA ve ET 27 20 20 DE E HO 20 10 10 JR XA 5 PH ZO AR WI LE MA LL -T CY IA MP M OF F DS CY TA NT BL HI ET AN A LE 00 08 09 2 30 30 EA 18 MC Ac VO 37 -1 -[address] 75 KE ti TH 81 8 SI 58 VA ve YR 80 20 20 DE E OX 30 10 10 JR IN 1 PH E [place] 50 MA LL CY IA MC M G OF F TA BL CY ET NT HI AN A HY 00 09 09 2 30 30 EA [address] 59 -2 -[address] 23 KE ti OC 10 1- SI 17 VA ve HL 34 20 20 DE E OR 70 10 10 JR OT 1 PH HI AR WI [place] MA LL ID CY IA E M 12 OF F .5 CY MG NT HI CP AN A SI 16 08 09 3 30 30 EA 18 MC Ac MV 71 -0 -[address] 64 KE ti 40 9- 4 00 SI 89 VA ve TA 68 20 20 DE E TI 40 10 10 JR N 3 PH 40 AR [place] MA LL MG CY IA M TA OF F BL ET CY NT HI AN A 00 09 09 0 12 30 EA 19 MC Ac 59 -1 -[address] 10 KE ti 10 3- 3- 00 SI 99 VA ve 54 20 20 0 DE E 00 10 10 JR 1 PH AR WI MA LL CY IA M OF F CY NT HI AN A CL 00 09 09 0 90 30 EA 19 MC Ac ON 09 -0 -[address] 04 KE ti AZ 30 8- 8- 00 SI 54 VA ve EP 83 20 20 DE E AM 20 10 10 JR 1 PH 0. [place] 5 MA LL MG CY IA M TA OF F BL ET CY NT HI AN A EX 00 05 09 5 30 30 EA 17 MC Ac FO 07 -2 -[address] 70 KE ti RG 80 2- 1- 00 SI 24 VA ve E 48 20 20 DE E [...] OC 10 7- 8- 00 SI 77 VA ve HL 34 20 20 DE E [...] TH 81 8- 8- 00 SI 58 VA ve YR 80 20 20 DE E OX 30 10 10 JR IN 1 PH E AR WI 50 MA LL CY IA MC M G OF F TA BL CY ET NT HI AN A 00 08 08 0 12 30 EA 18 MC Ac 59 -1 -[address] 71 KE ti 10 4- 4- 00 SI 12 VA ve 54 20 20 0 DE E 00 10 10 JR 1 PH AR WI MA LL CY IA M OF F CY NT HI AN A CL 00 08 08 0 90 30 EA 18 MC Ac ON 09 -0 -[address] 64 KE ti AZ 30 9- 9- 00 SI 45 VA ve EP 83 20 20 DE E AM 20 10 10 JR 1 PH 0. [place] 5 MA LL MG CY IA M TA OF F BL ET CY NT HI AN A NE 00 08 08 3 60 30 EA 18 MC Ac XI 18 -0 -[address] 64 KE ti UM 65 9- 9- 00 SI 88 VA ve 04 [address] 03 10 10 JR 1 PH 40 AR [place] MA LL MG CY IA M CA OF F PS UL CY E NT HI AN A SI 16 08 08 3 30 30 EA 18 MC Ac MV 71 -0 -[address] 64 KE ti 40 9- 9- 00 SI 89 VA ve TA 68 20 20 DE E TI 40 10 10 JR N 3 PH 40 AR [place] MA LL MG CY IA M TA OF F BL ET CY NT HI AN A EX 00 05 07 5 30 30 EA 17 MC Ac FO 07 -2 -[address] 70 KE ti RG 80 2- 8- 00 SI 24 VA ve E 48 20 20 DE E 10 91 10 10 JR -1 5 PH 60 AR [place] MA LL MG CY IA M TA OF F BL ET CY NT HI AN A LE 00 04 07 3 30 30 EA 17 MC Ac VO 37 -0 -[address] 10 KE ti TH 81 7- 0- 00 SI 12 VA ve YR 80 20 20 DE E OX 30 10 10 JR IN 1 PH E [place] 50 MA LL CY IA MC M G OF F TA BL CY ET NT HI AN A HY 00 05 07 3 30 30 EA [address] 59 -0 -[address] 50 KE ti OC 10 7- 0- 00 SI 77 VA ve HL 34 20 20 DE E [...] AZ 30 8- 8- 00 SI 89 VA ve EP 83 20 20 DE E [...] ti 90 2- 3- 00 SI 46 VA ve TA 00 20 20 DE E TI 61 10 10 JR N 7 PH 40 AR WI MA LL MG CY IA M TA OF F BL ET CY NT HI AN A NE 00 03 07 3 30 30 EA 16 MC Ac XI 18 -1 -[address] 82 KE ti UM 65 7- 3- 00 SI 12 VA ve 04 [address] 03 10 10 JR 1 PH 40 AR [place] MA LL MG CY IA M CA OF F PS UL CY E NT HI AN A EX 00 05 06 5 30 30 EA 17 MC Ac FO 07 -2 -[address] 70 KE ti RG 80 2- 7- 00 SI 24 VA ve E 48 20 20 DE E 10 91 10 10 JR -1 5 PH 60 AR [place] MA LL MG CY IA M TA OF F BL ET CY NT HI AN A 00 06 06 0 12 30 EA 17 MC Ac 59 -1 -[address] 97 KE ti 10 4- 4- 00 SI 41 VA ve 54 20 20 0 DE E 00 10 10 JR 1 PH AR WI MA LL CY IA M OF F CY NT HI AN A LE 00 04 06 3 30 30 EA 17 Ac VO 37 -0 -[address] 10 KE ti TH 81 7- 1- 00 SI 12 VA ve YR 80 20 20 DE E OX 30 10 10 JR IN 1 PH E [place] 50 MA LL CY IA MC M G OF F TA BL CY ET NT HI AN A HY 00 05 06 3 30 30 EA [address] 59 -0 -[address] 50 KE ti OC 10 7- 1- 00 SI 77 VA ve HL 34 20 20 DE E [...] AZ 30 5- 5- 00 SI 85 VA ve EP 83 20 20 DE E AM 20 10 10 JR 1 PH 0. [place] 5 MA LL MG CY IA M TA OF F BL ET CY NT HI AN A NE 00 03 05 3 30 30 EA 16 MC Ac XI 18 -1 -[address] 82 KE ti UM 65 7- 9- 00 SI 12 VA ve 04 [address] 03 10 10 JR 1 PH 40 AR [place] MA LL MG CY IA M CA OF F PS UL CY E NT HI AN A SI 65 02 05 3 30 30 EA 16 MC Ac MV 86 -1 -[address] 35 KE ti 20 2- 9- 00 SI 46 VA ve TA 05 20 20 DE E TI 33 10 10 JR N 0 PH 40 AR [place] MA LL MG CY IA M TA OF F BL ET CY NT HI AN A EX 00 05 05 5 30 30 EA 17 MC Ac FO 07 -2 -[address] 70 KE ti RG 80 2- 2- 00 SI 24 VA ve E 48 20 20 DE E 10 91 10 10 JR -1 5 PH 60 AR [place] MA LL MG CY IA M TA OF F BL ET CY NT HI AN A 00 05 05 0 12 30 EA 17 MC Ac 59 -1 -[address] 61 KE ti 10 5- 5- 00 SI 05 VA ve 54 20 20 0 DE E 00 10 10 JR 1 PH AR [place] MA LL CY IA M OF F CY NT HI AN A LE 00 04 05 3 30 30 EA 17 MC Ac VO 37 -0 -[address] 10 KE ti TH 81 7- 7- 00 SI 12 VA ve YR 80 20 20 DE E OX 30 10 10 JR IN 1 PH E [place] 50 MA LL CY IA MC M G OF F TA BL CY ET NT HI AN A HY 00 05 05 3 30 30 EA [address] 59 -0 -[address] 50 KE ti OC 10 7- 7- 00 SI 77 VA ve HL 34 20 20 DE E [...] AZ 30 6- 6- 00 SI 98 VA ve EP 83 20 20 DE E AM 20 10 10 JR 1 PH 0. [place] 5 MA LL MG CY IA M TA OF F BL ET CY NT HI AN A SI 65 02 04 3 30 30 EA 16 MC Ac MV 86 -1 -[address] 35 KE ti 20 2- 3- 00 SI 46 VA ve TA 05 20 20 DE E TI 33 10 10 JR N 0 PH 40 AR [place] MA LL MG CY IA M TA OF F BL ET CY NT HI AN A NE 00 03 04 3 30 30 EA 16 MC Ac XI 18 -1 -[address] 82 KE ti UM 65 7- 3- 00 SI 12 VA ve 04 [address] 03 10 10 JR 1 PH 40 AR [place] MA LL MG CY IA M CA OF F PS UL CY E NT HI AN A 00 04 04 0 12 30 EA 17 MC Ac 59 -1 -[address] 20 KE ti 10 5- 5 SI 16 VA ve 54 20 20 0 DE E 00 10 10 JR 1 PH AR WI MA LL CY IA M OF F CY NT HI AN A CL 00 04 04 0 60 30 EA 17 MC Ac ON .0 ST 20 KE ti AZ 30 5- 5 SI 17 VA ve EP 83 20 20 DE E AM 20 10 10 JR 1 PH 0. [place] 5 MA LL MG CY IA M TA OF F BL ET CY NT HI AN A HY 00 01 04 3 30 30 EA [address] 59 -0 -[address] 81 KE ti OC 10 4 SI 52 VA ve HL 34 20 20 DE E OR 70 10 10 JR OT 1 PH HI AR [place] MA LL ID CY IA E M 12 OF F .5 CY MG NT HI CP AN A LE 00 04 04 3 30 30 EA 17 MC Ac VO 37 -0 -[address] 10 KE ti TH 81 7 7 SI 12 VA ve YR 80 20 20 DE E OX 30 10 10 JR IN 1 PH E [place] 50 MA LL CY IA MC M G OF F TA BL CY ET NT HI AN A SI 65 02 03 3 30 30 EA 16 MC Ac MV 86 -1 -[address] 35 KE ti 20 2- 7- SI 46 VA ve TA 05 20 20 DE E TI 33 10 10 JR N 0 PH 40 AR [place] MA LL MG CY IA M TA OF F BL ET CY NT HI AN A CL 00 03 03 0 60 30 EA 16 MC Ac ON .0 ST 81 KE ti AZ 30 7- 7 SI 84 VA ve EP 83 20 20 DE E AM 20 10 10 JR 1 PH 0. [place] 5 MA LL MG CY IA M TA OF F BL ET CY NT HI AN A NE 00 03 03 3 30 30 EA 16 MC Ac XI 18 -1 -[address] 82 KE ti UM 65 7- 7- 00 SI 12 VA ve 04 [address] 03 10 10 JR 1 PH 40 [place] MA LL MG CY IA M CA OF F PS UL CY E NT HI AN A 00 03 03 0 12 30 EA 16 MC Ac 59 -1 -[address] 81 KE ti 10 7- 7 00 SI 83 VA ve 54 20 20 0 DE E 00 10 10 JR 1 PH AR [place] MA LL CY IA M OF F CY NT HI AN A LE 00 12 03 3 30 30 EA 15 MC Ac VO 37 -0 -[address] 38 KE ti TH 81 2- 8 00 SI 79 VA ve YR 80 20 20 DE E OX 30 09 10 JR IN 1 PH E [place] 50 MA LL CY IA MC M G OF F TA BL CY ET NT HI AN A HY 00 01 03 3 30 30 EA [address] 59 -0 -[address] 81 KE ti OC 10 4 8 00 SI 52 VA ve HL 34 20 20 DE E OR 70 10 10 JR OT 1 PH HI AR [place] MA LL ID CY IA E M 12 OF F .5 CY MG NT HI CP AN A CL 00 02 02 00 60 30 EA 16 MC Ac ON 09 -1 -[address] 37 KE ti AZ 30 5 6 SI 94 VA ve EP 83 20 20 DE E AM 20 10 10 JR 1 PH 0. [place] 5 MA LL MG CY IA M TA OF F BL CY ET NT HI AN A 00 02 02 00 12 30 EA 16 MC Ac 59 -1 -[address] 37 KE ti 10 5- 6- SI 95 VA ve 54 20 20 0 DE E 00 10 10 JR 1 PH AR WI MA LL CY IA M OF F CY NT HI AN A SI 65 02 02 00 30 30 EA 16 MC Ac MV 86 -1 -[address] 35 KE ti 20 2- 6- 00 SI 46 VA ve TA 05 20 20 DE E TI 33 10 10 JR N 0 PH 40 AR [place] MA LL MG CY IA M TA OF F BL CY ET NT HI AN A NE 00 08 02 05 30 30 EA 14 MC Ac XI 18 -3 -[address] 06 KE ti UM 65 1- 1- 00 SI 00 VA ve 04 [address] 03 09 10 JR 1 PH 40 AR [place] MA LL MG CY IA M CA OF F PS CY UL NT E HI AN A LE 00 12 02 02 30 30 EA 15 MC Ac VO 37 -0 -[address] 38 KE ti TH 81 2 SI 79 VA ve YR 80 20 20 DE E OX 30 09 10 JR IN 1 PH E AR [place] 50 MA LL CY IA MC M G OF F TA CY BL NT ET HI AN A HY 00 02 01 30 30 EA [address] 59 -0 -[address] 81 KE ti OC 10 4- SI 52 VA ve HL 34 20 20 DE E OR 70 10 10 JR OT 1 PH HI AR [place] MA LL ID CY IA E M 12 OF F .5 CY NT MG HI AN CP A 00 11 28 00 12 30 EA 15 MC Ac 59 -1 -[address] 95 KE ti 10 4 8 SI 82 VA ve 54 20 20 0 DE E 00 10 10 JR 1 PH AR [place] MA LL CY IA M OF F CY NT HI AN A SI 65 09 01 03 30 30 EA 14 MC Ac MV 86 -3 -[address] 49 KE ti 20 0 SI 48 VA ve TA 05 20 20 DE E TI 33 09 10 JR N 0 PH 40 AR [place] MA LL MG CY IA M TA OF F BL CY ET NT HI AN A CL 00 11 28 00 60 30 EA 15 MC Ac ON 09 -1 -[address] 95 KE ti AZ 30 4 SI 83 VA ve EP 83 20 20 DE E AM 20 10 10 JR 1 PH 0. AR [place] 5 MA LL MG CY IA M TA OF F BL CY ET NT HI AN A LE 00 12 11 28 30 30 EA 15 MC Ac VO 37 -0 -[address] 38 KE ti TH 81 2 SI 79 VA ve YR 80 20 20 DE E OX 30 09 10 JR IN 1 PH E [place] 50 MA LL CY IA MC M G OF F TA CY BL NT ET HI AN A HY 00 11 28 00 30 30 EA [address] 59 -0 -[address] 81 KE ti OC 10 4 SI 52 VA ve HL 34 20 20 DE E [...] UM 65 1- 4- 00 SI 00 VA ve 04 [address] 03 09 10 JR 1 PH 40 AR [place] MA LL MG CY IA M CA OF F PS CY UL NT E HI AN A CL 00 12 12 00 60 30 EA 15 MC Ac ON 09 -1 -[address] 56 KE ti AZ 30 4- - SI 09 VA ve EP 83 20 20 DE E AM 20 09 09 JR 1 PH 0. AR [place] 5 MA LL MG CY IA M TA OF F BL CY ET NT HI AN A 00 12 12 00 12 30 EA 15 MC Ac 59 -1 -[address] 56 KE ti 10 4- - 00 SI 08 VA ve 54 20 20 0 DE E 00 09 09 JR 1 PH AR [place] MA LL CY IA M OF F CY NT HI AN A NE 00 08 12 03 30 30 EA 14 MC Ac XI 18 -3 -[address] 06 KE ti UM 65 1- 7- 00 SI 00 VA ve 04 [address] 03 09 JR 1 PH 40 AR [place] MA LL MG CY IA M CA OF F PS CY UL NT E HI AN A LE 00 12 12 00 30 30 EA 15 MC Ac VO 37 -0 -[address] 38 KE ti TH 81 2- 7- 00 SI 79 VA ve YR 80 20 20 DE E OX 30 09 JR IN 1 PH E AR [place] 50 MA LL CY IA MC M G OF F TA CY BL NT ET HI AN A SI 65 09 12 02 30 30 EA 14 MC Ac MV 86 -3 -[address] 49 KE ti 20 0- 7- 00 SI 48 VA ve TA 05 20 20 DE E TI 33 09 09 JR N 0 PH 40 AR [place] MA LL MG CY IA M TA OF F BL CY ET NT HI AN A HY 00 07 12 04 30 30 EA [address] 59 -1 -[address] 47 KE ti OC 10 4- 7- 00 SI 77 VA ve HL 34 20 20 DE E [...] AZ 30 4 3- 00 SI 29 VA ve EP 83 20 20 DE E AM 20 09 09 JR 1 PH 0. AR [place] 5 MA LL MG CY IA M TA OF F BL CY ET NT HI AN A LE 00 07 11 03 30 30 EA 13 MC Ac VO 37 -2 -[address] 63 KE ti TH 81 7 9 SI 09 VA ve YR 80 20 20 DE E OX 30 09 09 JR IN 1 PH E [place] 50 MA LL CY IA MC M G OF F TA CY BL NT ET HI AN A SI 65 09 11 01 30 30 EA 14 MC Ac MV 86 -3 -[address] 49 KE ti 20 0 9 00 SI 48 VA ve TA 05 20 20 DE E TI 33 09 09 JR N 0 PH 40 AR [place] MA LL MG CY IA M TA OF F BL CY ET NT HI AN A NE 00 08 11 02 30 30 EA 14 MC Ac XI 18 -3 -[address] 06 KE ti UM 65 SI 00 VA ve 04 [address] 03 09 09 JR 1 PH 40 AR WI MA LL MG CY IA M CA OF F PS CY UL NT E HI AN A HY 00 07 11 03 30 30 EA [address] 59 -1 -[address] 47 KE ti OC 10 4- 5- 00 SI 77 VA ve HL 34 20 20 DE E OR 70 09 09 JR OT 1 PH HI AR [place] MA LL ID CY IA E M 12 OF F .5 CY NT MG HI AN CP A 00 10 10 00 12 30 EA 14 MC Ac 59 -1 -[address] 69 KE ti 10 4- 2- 00 SI 56 VA ve 54 20 20 0 DE E 00 09 09 JR 1 PH AR [place] MA LL CY IA M OF F CY NT HI AN A CL 00 10 10 00 60 30 EA 14 MC Ac ON 09 -1 -[address] 69 KE ti AZ 30 4- 2- 00 SI 57 VA ve EP 83 20 20 DE E AM 20 09 09 JR 1 PH 0. AR [place] 5 MA LL MG CY IA M TA OF F BL CY ET NT HI AN A NE 00 08 10 01 30 30 EA 14 MC Ac XI 18 -3 -[address] 06 KE ti UM 65 2- SI 00 VA ve 04 [address] 03 09 09 JR 1 PH 40 AR [place] MA LL MG CY IA M CA OF F PS CY UL NT E HI AN A SI 65 09 10 00 30 30 EA 14 MC Ac MV 86 -3 -[address] 49 KE ti 20 0- 8- 00 SI 48 VA ve TA 05 20 20 DE E TI 33 09 09 JR N 0 PH 40 AR [place] MA LL MG CY IA M TA OF F BL CY ET NT HI AN A LE 00 07 10 02 30 30 EA 13 MC Ac VO 37 -2 -[address] 63 KE ti TH 81 7- 8- 00 SI 09 VA ve YR 80 20 20 DE E OX 30 09 09 JR IN 1 PH E AR [place] 50 MA LL CY IA MC M G OF F TA CY BL NT ET HI AN A CL 00 09 09 00 60 30 EA 14 MC Ac ON -[address] 23 KE ti AZ 30 4- 4- 00 SI 85 VA ve EP 83 20 20 DE E AM 20 09 JR 1 PH 0. AR [place] 5 MA LL MG CY IA M TA OF F BL CY ET NT HI AN A 00 09 09 00 12 30 EA 14 MC Ac 59 -1 -[address] 23 KE ti 10 4- 4- 00 SI 84 VA ve 54 20 20 0 DE E 00 09 09 JR 1 PH AR [place] MA LL CY IA M OF F CY NT HI AN A HY 00 07 09 02 30 30 EA [address] 59 -1 -[address] 47 KE ti OC 10 4- 4- 00 SI 77 VA ve HL 34 20 20 DE E [...] TH 81 7- 0- 00 SI 09 VA ve YR 80 20 20 DE E OX 30 09 09 JR IN 1 PH E AR [place] 50 MA LL CY IA MC M G OF F TA CY BL NT ET HI AN A NE 00 08 09 00 30 30 EA 14 MC Ac XI 18 -3 -[address] 06 KE ti UM 65 1- 0- 00 SI 00 VA ve 04 [address] 03 09 09 JR 1 PH 40 AR [place] MA LL MG CY IA M CA OF F PS CY UL NT E HI AN A CL 00 08 08 00 60 30 EA 13 MC Ac ON -[address] 84 KE ti AZ 30 4- 7- 00 SI 73 VA ve EP 83 20 20 DE E AM 20 09 09 JR 1 PH 0. AR [place] 5 MA LL MG CY IA M TA OF F BL CY ET NT HI AN A HY 00 07 08 01 30 30 EA [address] 59 -1 -[address] 47 KE ti OC 10 4- 7- 00 SI 77 VA ve HL 34 20 20 DE E OR 70 09 09 JR OT 1 PH HI AR WI [place] MA LL ID CY IA E M 12 OF F .5 CY NT MG HI AN CP A 00 08 08 00 12 30 EA 13 MC Ac 59 -1 -[address] 84 KE ti 10 4- 7- 00 SI 74 VA ve 54 20 20 0 DE E 00 09 09 JR 1 PH AR [place] MA LL CY IA M OF F CY NT HI AN A SI 65 05 08 03 30 30 EA 12 MC Ac MV 86 -0 -[address] 56 KE ti 20 1- 7- 00 SI 59 VA ve TA 05 20 20 DE E TI 33 09 09 JR N 0 PH 40 AR [place] MA LL MG CY IA M TA OF F BL CY ET NT HI AN A LE 00 07 08 00 30 30 EA 13 MC Ac VO 37 -2 -[address] 63 KE ti TH 81 7- 3- 00 SI 09 VA ve YR 80 20 20 DE E OX 30 09 09 JR IN 1 PH E AR [place] 50 MA LL CY IA MC M G OF F TA CY BL NT ET HI AN A NE 00 04 08 03 30 30 EA 12 MC Ac XI 18 -1 -[address] 35 KE ti UM 65 5- 3- 00 SI 57 VA ve 04 [address] 03 09 09 JR 1 PH 40 AR [place] MA LL MG CY IA M CA OF F PS CY UL NT E HI AN A SI 65 05 07 02 30 30 EA 12 MC Ac MV 86 -0 -[address] 56 KE ti 20 1- 0- 00 SI 59 VA ve TA 05 20 20 DE E TI 33 09 09 JR N 0 PH 40 AR [place] MA LL MG CY IA M TA OF F BL CY ET NT HI AN A 00 07 07 00 12 30 EA 13 MC Ac 59 -1 -[address] 50 KE ti 10 5- 0- 00 SI 62 VA ve 54 20 20 0 DE E 00 09 09 JR 1 PH AR [place] MA LL CY IA M OF F CY NT HI AN A CL 00 05 07 02 60 30 EA 12 MC Ac ON 09 -1 -[address] 75 KE ti AZ 30 5- 0- 00 SI 71 VA ve EP 83 20 20 DE E AM 20 09 09 JR 1 PH 0. AR [place] 5 MA LL MG CY IA M TA OF F BL CY ET NT HI AN A HY 00 07 07 00 30 30 EA [address] 59 -1 -[address] 47 KE ti OC 10 4- 0- 00 SI 77 VA ve HL 34 20 20 DE E [...] UM 65 5- 6- 00 SI 57 VA ve 04 [address] 03 09 09 JR 1 PH 40 AR [place] MA LL MG CY IA M CA OF F PS CY UL NT E HI AN A HY 00 05 07 01 30 30 EA [address] 59 -1 -[address] 72 KE ti OC 10 2- 2- 00 SI 08 VA ve HL 34 20 20 DE E [...] CL 40 3- 2- 00 SI 20 VA ve OP 06 20 20 DE E RA 20 09 09 JR VA 6 PH DE AR WI MA LL 10 CY IA M MG OF F CY TA NT BL HI ET AN A CL 00 05 07 01 60 30 EA 12 MC Ac ON 09 -1 -[address] 75 KE ti AZ 30 5- 2- 00 SI 71 VA ve EP 83 20 20 DE E AM 20 09 09 JR 1 PH 0. AR [place] 5 MA LL MG CY IA M TA OF F BL CY ET NT HI AN A 00 06 07 00 12 30 EA 13 MC Ac 59 -1 -[address] 16 KE ti 10 6- 2- 00 SI 06 VA ve 54 20 20 0 DE E [...] ti 20 1- 8- 00 SI 59 VA ve TA 05 20 20 DE E TI 33 09 09 JR N 0 PH 40 AR [place] MA LL MG CY IA M TA OF F BL CY ET NT HI AN A NE 00 04 06 01 30 30 EA 12 MC Ac XI 18 -1 -[address] 35 KE ti UM 65 5- 4- SI 57 VA ve 04 [address] 03 09 09 JR 1 PH 40 AR [place] MA LL MG CY IA M CA OF F PS CY UL NT E HI AN A 00 05 06 00 12 30 EA 12 MC Ac 59 -1 -[address] 77 KE ti 10 8- 4- 00 SI 89 VA ve 54 20 20 0 DE E [...] XI 52 5- 1- 00 SI 72 VA ve CA 55 20 20 DE E M 40 09 09 JR 15 1 PH AR WI MG MA LL CY IA TA M BL OF F ET CY NT HI AN A HY 00 05 05 00 30 30 EA [address] 59 -1 -[address] 72 KE ti OC 10 2- 1- 00 SI 08 VA ve HL 34 20 20 DE E [...] AZ 30 5- 1- 00 SI 71 VA ve EP 83 20 20 DE E AM 20 09 09 JR 1 PH 0. AR [place] 5 MA LL MG CY IA M TA OF F BL CY ET NT HI AN A SI 65 05 05 00 30 30 EA 12 MC Ac MV 86 -0 -[address] 56 KE ti 20 1- 7- 00 SI 59 VA ve TA 05 20 20 DE E TI 33 09 09 JR N 0 PH 40 AR [place] MA LL MG CY IA M TA OF F BL CY ET NT HI AN A NE 00 04 04 00 30 30 EA 12 MC Ac XI 18 -1 -[address] 35 KE ti UM 65 5- 3- 00 SI 57 VA ve 04 [address] [...] -1 -[address] 90 RV ti ID 40 6- 3- 00 SI 94 EY [...] -1 -[address] 90 RV ti ID 40 6- 6- 00 SI 94 EY [...] ti 20 6 6- 00 SI 41 VA ve TA 05 20 20 DE E [...] UM 65 0- 6- 00 SI 05 VA ve 04 [address] 03 09 09 JR 1 PH 40 AR [place] MA LL MG CY IA M CA OF F PS CY UL NT E HI AN A 00 02 02 00 12 30 EA 11 MC Ac 59 -1 -[address] 48 KE ti 10 6 6 00 SI 90 VA ve 54 20 20 0 DE E 00 09 09 JR 1 PH AR [place] MA LL CY IA M OF F CY NT HI AN A ME 49 11 02 03 30 30 EA 10 MC Ac TO 88 -0 -[address] 14 KE ti ID 40 5- 6- 00 SI 65 VA ve OL 40 20 20 DE E OL 50 08 09 JR 1 PH GALLAGHER AR WI CC MA LL CY IA ER M OF F 50 CY NT MG HI AN TA A B SI 65 10 02 04 30 30 EA 99 MC Ac MV 86 -0 -[address] 75 KE ti 20 6- 6- 00 SI 41 VA ve TA 05 20 20 DE E TI 33 08 09 JR N 0 PH 40 AR [place] MA LL MG CY IA M TA OF F BL CY ET NT HI AN A CL 00 02 02 00 60 30 EA 11 MC Ac ON 09 -1 -[address] 48 KE ti AZ 30 6- 6- 00 SI 89 VA ve EP 83 20 20 DE E AM 20 09 09 JR 1 PH 0. AR [place] 5 MA LL MG CY IA M TA OF F BL CY ET NT HI AN A LE 00 01 02 01 30 30 EA 11 MC Ac VO 37 -1 -[address] 07 KE ti TH 81 3- 6- 00 SI 93 VA ve YR 80 20 20 DE E [...] UM 65 6- 2- 00 SI 45 VA ve 04 [address] 03 08 09 JR 1 PH 40 AR [place] MA LL MG CY IA M CA OF F PS CY UL NT E HI AN A LE 00 01 01 00 30 30 EA 11 MC Ac VO 37 -1 -[address] 07 KE ti TH 81 3- 0- 00 SI 93 VA ve YR 80 20 20 DE E [...] UM 65 6- 5- 00 SI 45 VA ve 04 [address] 03 08 09 JR 1 PH 40 AR [place] MA LL MG CY IA M CA OF F PS CY UL NT E HI AN A SI 65 10 01 03 30 30 EA 99 MC Ac MV 86 -0 -[address] 75 KE ti 20 6- 5- 00 SI 41 VA ve TA 05 20 20 DE E TI 33 08 09 JR N 0 PH 40 AR [place] MA LL MG CY IA M TA OF F BL CY ET NT HI AN A ME 49 11 01 02 30 30 EA 10 MC Ac TO 88 -0 -[address] 14 KE ti ID 40 5- 5- 00 SI 65 VA ve OL 40 20 20 DE E OL 50 08 09 JR 1 PH GALLAGHER AR [place] CC MA LL CY IA ER M OF F 50 CY NT MG HI AN TA A B LE 00 11 01 01 30 30 EA 10 MC Ac VO 37 -1 -[address] 21 KE ti TH 81 0- 1- 00 SI 64 VA ve YR 80 20 20 DE E [...] ti 20 6- 8- 00 SI 41 VA ve TA 05 20 20 DE E TI 33 08 08 JR N 0 PH 40 AR [place] MA LL MG CY IA M TA OF F BL CY ET NT HI AN A 60 12 12 00 12 3 EA 10 MC Ac 25 -0 -[address] 54 KE ti 80 4- 8- 00 SI 81 VA ve 23 20 20 0 DE E 91 08 08 JR 6 PH AR [place] MA LL CY IA M OF F CY NT HI AN A CL 00 10 12 01 60 30 EA 99 MC Ac ON 09 -1 -[address] 81 KE ti AZ 30 0- 8- 00 SI 89 VA ve EP 83 20 20 DE E AM 20 08 08 JR 1 PH 0. [place] 5 MA LL MG CY IA M TA OF F BL CY ET NT HI AN A NE 00 08 12 03 30 30 EA 99 MC Ac XI 18 -2 -[address] 22 KE ti UM 65 6- 8- 00 SI 45 VA ve 04 [address] [...] -0 -[address] 14 KE ti ID 40 5- 8- 00 SI 65 VA ve OL 40 20 20 DE E OL 50 08 08 JR 1 PH GALLAGHER AR [place] CC MA LL CY IA ER M OF F 50 CY NT MG HI AN TA A B SI 65 10 11 01 30 30 EA 99 MC Ac MV 86 -0 -[address] 75 KE ti 20 6- 0- 00 SI 41 VA ve TA 05 20 20 DE E TI 33 08 08 JR N 0 PH 40 AR [place] MA LL MG CY IA M TA OF F BL CY ET NT HI AN A CL 00 10 11 00 60 30 EA 99 MC Ac ON 09 -1 -[address] 81 KE ti AZ 30 0- 0- 00 SI 89 VA ve EP 83 20 20 DE E AM 20 08 08 JR 1 PH 0. AR [place] 5 MA LL MG CY IA M TA OF F BL CY ET NT HI AN A ME 49 11 11 00 30 30 EA 10 MC Ac TO 88 -0 -[address] 14 KE ti ID 40 5- 0- 00 SI 65 VA ve OL 40 20 20 DE E OL 50 08 08 JR 1 PH GALLAGHER AR [place] CC MA LL CY IA ER M OF F 50 CY NT MG HI AN TA A B LE 00 11 11 00 30 30 EA 10 MC Ac VO 37 -1 -[address] 21 KE ti TH 81 0- 0- 00 SI 64 VA ve YR 80 20 20 DE E OX 30 08 08 JR IN 1 PH E [place] 50 MA LL CY IA MC M G OF F TA CY BL NT ET HI AN A NE 00 08 11 02 30 30 EA 99 MC Ac XI 18 -2 -[address] 22 KE ti UM 65 6- 7- 00 SI 45 VA ve 04 [address] [...] -0 -[address] 58 t ti ID 40 1- 3- 00 SI 13 Av [...] -0 -[address] 58 t ti ID 40 1- 1- 00 SI 13 Av [...] ET OF CY NT HI AN A ID 37 08 08 00 30 30 EA [...] 01 30 30 EA 98 No Ac ID 18 -0 -[address] 58 t [...] CY OF CY NT HI AN A ID 37 04 07 03 30 30 EA [...] 00 30 30 EA 98 No Ac ID 18 -0 -[address] 58 t [...] 9- 7- 00 SI 06 Av ve ID 50 20 20 DE ai AM 98 [...] CY BL NT ET HI AN A ID 37 04 06 02 30 30 EA [...] 01 30 30 EA 97 No Ac ID 18 -2 -[address] 75 t [...] ET OF CY NT HI AN A ID 37 04 05 01 30 30 EA [...] 00 30 30 EA 97 No Ac ID 18 -2 -[address] 75 t [...] 7- 0- 00 SI 65 Av ve ID 34 20 20 DE ai AM 30 08 08 la 1 PH bl HB AR e R MA 20 CY MG OF CY TA NT BL HI ET AN A ID 37 04 04 00 30 30 EA [...] -2 -[address] 38 t ti ID 40 7- 0- 00 SI 67 Av [...] 7- 5- 00 SI 25 Av ve ID 02 20 20 DE ai ED 20 [...] Procedure DOS Code Location Performer Comment COLLECTIO 00662 [facility] N VENOUS [facility] BLOOD INC INC VENIPUNCT URE CREATININ 87571 [facility] S[facility] E BLOOD 7 [facility] [place] [address] [facility] UREA 7 [facility] NITROGEN INC INC QUANTITAT RUPA DRUG TEST 63940 LAVINIA KATE PRSMV 7 NORMA TOWNSEND MD,[facility] CHEMISTRY ANALYZERS DRUG TEST 01370 [facility] PRSMV [facility] QUAL DIR INC INC OPTICAL OBS PER DAY DRUG 18245 [facility] SCREENING 7 [facility] INC INC BENZODIAZ EPINES 1-12 ECG 50848 [facility] ROUTINE [facility] ECG INC INC W/LEAST 12 LDS TRCG ONLY W/O I&R PRQ 93357 [facility] TRLUML 7 PHYSICIAN CORONARY S GROUP STENT W/ANGIO ONE ART/BRNCH CATH PLMT 75914 [facility] L HRT & 7 PHYSICIAN ARTS S GROUP W/NJX & ANGIO IMG S&I ECHO 41511 [facility] TTHRC R-T 7 [facility] 2D INC INC W/WOM-MOD E COMPL SPEC&COLR D TECHNETIU A9502 [facility] M TC-99M 7 [facility] TETROFOSM INC INC IN DX PER STUDY DOSE CV STRS 16406 [facility] TST 7 [facility] XERS&/OR INC INC RX CONT ECG TRCG ONLY MYOCARDIA 31276 [facility] L SPECT 7 [facility] MULTIPLE INC INC STUDIES ECG 94214 [facility] ROUTINE 7 [facility] ECG INC INC W/LEAST 12 LDS TRCG ONLY W/O I&R DRUG TEST 80966 LAVINIA KATE PRSMV 7 NORMA TOWNSEND MD,[facility] CHEMISTRY ANALYZERS COMPREHEN 59866 LAVINIA KATE SIVE 7 BOBO [place] [address] [facility] KATE GLUTAMYLT 7 BEKAH TOWNSNED MD,PSC GAMMA BLOOD 08914 [facility]IA KATE COUNT 7 DUKE TOWNSEND MD,PSC AUTO&AUTO DIFRNTL WBC BILIRUBIN 41785 LAVINIA KATE DIRECT 7 MD KRISTIAN,[place] [address] LAVINIA KATE PHOSPHORU 7 Myron TOWNSEND MD,PSC INORGANIC TECHNETIU A9537 [facility] M TC-99M 7 [facility] MEBROFENI INC INC N DX UP TO 15 MCI HEPATOBIL 87989 [facility] SYST 7 [facility] IMAG INC INC INC GB W/PHARMA INTERVENJ ECG 70851 [facility] ROUTINE 7 [facility] ECG INC INC W/LEAST 12 LDS TRCG ONLY W/O I&R ECG 87645 [facility] ROUTINE 7 [facility] ECG INC INC W/LEAST 12 LDS TRCG ONLY W/O I&[place] [address] [facility] ABDOMEN & 7 [facility] PELVIS INC INC W/O CONTRAST MATERIAL FINAL G9638 LEONEL LICEA REPORTS 7 MEDICAL W/O DOC IMAGING 1/[place] [address] [facility] LIPASE 7 [facility] [place] [address] [facility] S[facility] AMYLASE 7 [facility] INC INC CREATINE 86716 [facility] KINASE 7 [facility] TOTAL INC INC BLOOD 34548 [facility] COUNT 7 [facility] COMPLETE INC INC AUTO&[place] [address] [facility] TROPONIN 7 [facility] QUANTITAT INC INC RUPA CREATINE 02714 LIN[facility]TE SUE KINASE MB 7 [facility] FRACTION INC INC ONLY COMPREHEN 21611 [facility] SIVE 7 [facility] METABOLIC INC INC PANEL FINAL G9551 LEONEL LICEA REPR ABD 7 MEDICAL IMAG STS IMAGING W/O ASS INCIDNT FND LES NTD: THER 35842 [facility] PROPH/DX 7 [facility] NJX IV INC INC PUSH SINGLE/1S T SBST/DRUG RADIOLOGI 70778 [facility] C EXAM 7 [facility] CHEST 2 INC INC VIEWS FRONTAL&L ATERAL ECG 60381 [facility] MCCLAIN ROUTINE 7 [facility] W/LEAST P 12 LDS I&R ONLY CT LUMBAR 43110 LEONEL LICEA SPINE 7 MEDICAL W/O IMAGING CONTRAST ASS MATERIAL FINAL G9551 LEONEL LICEA REPR ABD 7 MEDICAL IMAG STS IMAGING W/O ASS INCIDNT FND LES NTD: COMPREHEN 57893 [facility] SIVE 7 [facility] METABOLIC INC INC PANEL BLOOD 23727 [facility] SUE COUNT 7 [facility] COMPLETE INC INC AUTO&AUTO DIFRNTL WBC FINAL G9638 LEONEL LICEA REPORTS 7 MEDICAL W/O DOC IMAGING 1/[place] [address] LEONEL LICEA ABDOMEN & 7 MEDICAL PELVIS IMAGING W/O ASS CONTRAST MATERIAL URNLS DIP 89962 [facility] SUE [facility] STICK/TAB INC INC LET REAGENT AUTO MICROSCOP Y RADEX 33332 [place] SPINE 7 CERVICAL CHIROPRAC 2 OR 3 TIC CENTE VIEWS RADEX 90120 [place] SPINE 7 LUMBOSACR CHIROPRAC AL 2/3 TIC CENTE VIEWS CHIROPRAC 03694 [place] TIC 7 MANIPULAT CHIROPRAC RUPA TX TIC CENTE SPINAL 3-4 REGIONS APPL 43602 [place] NATHAN MODALITY 7 1/> AREAS CHIROPRAC ELEC TIC CENTE STIMJ UNATTENDE D DRUG TEST 44319 [facility] VERMAON PRSMV 7 [facility] QUAL DIR INC INC OPTICAL OBS PER DAY DRUG TEST 23334 LAVINIA KATE PRSMV 7 NORMA TOWNSEND MD,[facility] CHEMISTRY ANALYZERS IAADIADOO 33078 [facility] SUE 7 [facility] INFLUENZA INC INC RADEX 22086 LINETTE LINETET ABDOMEN 7 [facility] COMPL INC INC W/DCBTS&/ ERC VIEWS RADIOLOGI 53739 LEONEL ZULLY C EXAM 7 MEDICAL CHEST 2 IMAGING VIEWS ASS FRONTAL&L ATERAL DRUG TEST G0480 [facility] SUE DEFINITV [address] [facility] [address] ID INC INC METH P DAY 1-7 DRUG CL DRUG TEST 59398 [facility] VERMAON PRSMV 7 [facility] QUAL DIR INC INC OPTICAL OBS PER DAY COLLECTIO 56732 [facility] S[facility] N VENOUS 7 [facility] BLOOD INC INC VENIPUNCT URE HEMOGLOBI 04955 [facility] SUE N 7 [facility] GLYCOSYLA INC INC SONG A1C BASIC 31317 [facility] METABOLIC 7 [facility] PANEL INC INC CALCIUM TOTAL HEPATIC 10787 [facility] FUNCTION 7 [facility] PANEL INC INC LIPID 28153 [facility] SUE PANEL 7 [facility] INC INC ECG 74934 [facility] SUE ROUTINE 7 [facility] ECG INC INC W/LEAST 12 LDS TRCG ONLY W/O I&R DRUG TEST G0480 [facility] SUE DEFINITV [address] [facility] [address] [facility] [address] ID INC INC METH P DAY 1-7 DRUG CL DRUG TEST 32254 [place]TEKING SUE PRSMV 7 [facility] QUAL DIR INC INC OPTICAL OBS PER DAY BLOOD 34659 [facility]TE SUE COUNT 7 [facility] COMPLETE INC INC AUTO&AUTO DIFRNTL WBC COMPREHEN 04329 [facility]UE SIVE 7 [facility] METABOLIC INC INC PANEL CREATINE 17865 LINETTE SUE KINASE MB 7 [facility] [place] [address] LIN[facility] SUE TROPONIN 7 [facility] QUANTITAT INC INC RUPA FIBRIN 96291 [facility] SUE DGRADJ 7 [facility] PRODUCTS INC INC D-DIMER QUAL/[place] [address] [facility] SUE AMYLASE 7 [facility] INC INC NATRIURET 28681 [facility] SUE IC 7 [facility] PEPTIDE INC INC COLLECTIO 75245 [facility] SUE N VENOUS 7 [facility] BLOOD INC INC VENIPUNCT URE CREATINE 47547 LIN[facility] SUE KINASE 7 [facility] [place] [address] [facility]UE LIPASE 7 [facility] INC INC FINAL RPT G95[address]/MRI 7 MEDICAL CHEST/NCK IMAGING /U/S NO ASS THR NOD<1.[address] [place] [address] [facility] VERMAON ANGIOGRAP 7 [facility] HY CHEST INC INC W/CONTRAS T/NONCONT RAST FINAL G9638 LEONEL DELAROSA REPORTS 7 MEDICAL W/O DOC IMAGING 1/[place] [address] LEONEL DELAROSA ABDOMEN 7 MEDICAL W/O IMAGING CONTRAST ASS MATERIAL URNLS DIP 70975 [facility] SUE [facility] STICK/TAB INC INC LET REAGENT AUTO MICROSCOP Y CT THORAX 65147 LEONEL DELAROSA 7 MEDICAL W/CONTRAS IMAGING T ASS MATERIAL ECG 39923 [facility] ROUTINE 7 [facility] ECG INC INC W/LEAST 12 LDS TRCG ONLY W/O I&R RADIOLOGI 88741 [facility] ZULL[facility] C EXAM 7 MEDICAL CHEST 2 IMAGING VIEWS ASS FRONTAL&L ATERAL ECG 91303 LINETTE VERMAON ROUTINE 7 [facility] W/LEAST P P 12 LDS I&[place] [address] [facility]TE VERMAON ANGIOGRAP 7 [facility] HY INC INC ABDOMEN W/CONTRAS T/NONCONT RAST FINAL G9551 LEONEL DELAROSA REPR ABD 7 MEDICAL IMAG STS IMAGING W/O ASS INCIDNT FND LES NTD: DRUG TST G0477 [facility] PRESUMP;C 6 [facility] PBL BEING [place] [address] [facility] S[facility] LIPASE 6 [facility] INC INC COLLECTIO 11369 [facility] SUE N VENOUS 6 [facility] [place] [address] [facility] S[facility] HEPATITIS 6 [facility] B INC INC SURFACE ANTIGEN HEPATITIS 83365 [facility]UE B CORE 6 [facility] ANTIBODY INC INC HBCAB TOTAL HEPATITIS 95934 LINETTE Agarwal SURF 6 [facility] ANTIBODY INC INC HBSAB HEPATITIS 03349 [facility]TE SUE A 6 [facility] [address] LIN[facility] SUE AMYLASE 6 [facility] INC INC HEPATITIS 72149 LINETTE SUE C 6 [facility] ANTIBODY INC INC HEMOGLOBI 03236 [facility]TE SUE N 6 [facility] GLYCOSY[place] [address] [facility] SUE THYROXINE 6 [facility] TOTAL INC INC COMPREHEN 38340 [facility] SUE SIVE 6 [facility] [place] [address] [facility] SUE THYROID 6 [facility] STIMULATI INC INC NG HORMONE TSH BLOOD 91743 [facility]TE SUE COUNT 6 [facility] COMPLETE INC INC AUTO&AUTO DIFRNTL WBC DRUG TST G0477 [facility] SUE PRESUMP;C 6 [facility] PBL BEING INC INC READ DC OPT OBV ONLY DRUG TEST G0479 LAVINIA TOWNSEND 6 KRISTIAN, PRESUMP;I ,PSC NSTRUMENT ED CHEMISTRY ANLYZER ECG 71612 LINETTE JOHNY ROUTINE 6 [facility] W/LEAST P 12 LDS I&[place] [address] [facility] SUE ANGIOGRAP 6 [facility] HY CHEST INC INC W/CONTRAS T/NONCONT RAST ECG 17340 [facility] SUE ROUTINE 6 [facility] ECG INC INC W/LEAST 12 LDS TRCG ONLY W/O I&R CT THORAX 24461 [place] ZULLY 6 MEDICAL BUBBA W/CONTRAS IMAGING T ASS MATERIAL RADIOLOGI 00592 [facility] SUE C 6 [facility] EXAMINATI INC INC ON CHEST SINGLE VIEW FRONTAL COMPREHEN 10453 [facility] SUE SIVE 6 [facility] METABOLIC INC INC PANEL BLOOD 68018 [facility] SUE COUNT 6 [facility] COMPLETE INC INC AUTO&[place] [address] [facility] SUE TROPONIN 6 [facility] QUANTITAT INC INC RUPA CREATINE 93708 LINETTE SUE KINASE MB 6 [facility] FRACTION INC INC ONLY FIBRIN 13074 [facility] SUE DGRADJ 6 [facility] PRODUCTS INC INC D-DIMER QUAL/[place] [address] LINETTE SUE AMYLASE 6 [facility] INC INC NATRIURET 73041 [facility] SUE IC 6 [facility] PEPTIDE INC INC COLLECTIO 42344 LINETTE SUE N VENOUS 6 [facility] [place] [address] [facility]UE LIPASE 6 [facility] INC INC CREATINE 04550 [facility] SUE KINASE 6 [facility] TOTAL INC INC DRUG TST G0477 LIN[facility]TE SUE PRESUMP;C 6 [facility] PBL BEING [place] [address] LIN[facility] SUE CERVICAL 6 [facility] SPINE W/[place] [address] LINETTE [facility]UE HEAD/BRAI 6 [facility] N W/O INC INC CONTRAST MATERIAL RADEX 56399 LINETTE SUE SHOULDER 6 [facility] COMPLETE INC INC MINIMUM 2 VIEWS THERAPEUT 20478 [facility] SUE IC 6 [facility] PROPHYLAC INC INC TIC/DX INJECTION SUBQ/IM COLSC FLX 25279 LINETTE VERMAON W/RMVL 6 [facility] OF TUMOR INC [place] [address] [facility], SETTEMBRE SURG [address] [facility] PATHOLOGY GROSS&CHARLEY ROSCOPIC EXAM GLUC BLD 84524 LINETTE SUE GLUC MNTR 6 [facility] DEV INC INC CLEARED FDA SPEC HOME USE ANES 27985 COMMUNITY FEEBACK LOWER 6 ANESTH INTESTINE OF THE BLUE ENDOSCOPY DISTAL DUODENUM DRUG TST G0477 LINETTE SUE PRESUMP;C 6 [facility] PBL BEING INC INC READ DC OPT OBV ONLY DRUG 34434 LINETTE SUE SCREENING 6 [facility] INC INC BENZODIAZ EPINES 1-12 DRUG 59054 LINETTE SUE SCREEN 6 [facility] LIST A INC INC SINGLE DRUG CLASS METHOD COL-CHR/M 28569 LINETTE SUE S NONDRUG 6 [facility] ANALYTE INC INC CARLINE QUAL/TODD EA SPEC COLLECTIO 08847 LINETTE SUE N VENOUS 6 [facility] BLOOD INC INC VENIPUNCT URE HEMOGLOBI 29663 LINTETE SUE N 6 [facility] GLYCOSYLA [place] [address] LINETTE SUE THYROXINE 6 [facility] TOTAL INC INC BLOOD 77215 LINETTE SUE COUNT 6 [facility] COMPLETE INC INC AUTO&AUTO DIFRNTL WBC COMPREHEN 89302 LINETTE SUE SIVE 6 [facility] [place] [address] LINETTE [facility]UE THYROID 6 [facility] STIMULATI INC INC NG HORMONE TSH LIPID 66267 LINETTE [facility]UE PANEL 6 [facility] INC INC PROSTATE G0103 LINTETE SUE CANCER 6 [facility] [place] [facility] SCREENING INC INC ; PSA TEST THERAPEUT 95197 [facility] IC 6 PHYSICIAN CHARLEY PROPHYLAC S GROUP TIC/DX INJECTION SUBQ/IM INJECTION J1885 [facility] 6 PHYSICIAN CHARLEY KETOROLAC S GROUP TROMETHAM INE PER 15 MG INJECTION J1100 [facility] 6 PHYSICIAN CHARLEY DEXAMETHO S GROUP SONE SODIUM PHOSPHATE 1 MG INJECTION J1100 [facility] 6 PHYSICIAN CHARLEY DEXAMETHO S GROUP SONE SODIUM PHOSPHATE 1 MG THERAPEUT 65636 [facility] IC 6 PHYSICIAN CHARLEY PROPHYLAC S GROUP TIC/DX INJECTION SUBQ/IM THERAPEUT 23592 [facility] IC 6 PHYSICIAN EUG PROPHYLAC S GROUP TIC/DX INJECTION SUBQ/IM INJECTION J0696 [facility] 6 PHYSICIAN EUG CEFTRIAXO S GROUP NE SODIUM PER 250 MG INJECTION 33808 BOYD LE LB 6 MD JERMAINE, SINGLE/ML [...] OL PROHANCE MULTIPACK PER ML MRI BRAIN 74099 ILNETTE SUE BRAIN 6 [facility] STEM W/O INC INC W/CONTRAS T MATERIAL COLLECTIO 47809 LINETTE SUE N VENOUS 6 [facility] BLOOD INC INC VENIPUNCT URE CREATININ 70805 LINETTE VERMAON E BLOOD 6 [place] [address] LINETTE SUE UREA 6 [facility] NITROGEN INC INC QUANTITAT RUPA MRI BRAIN 89494 LINET[facility] SUE BRAIN 6 [facility] STEM W/O INC INC CONTRAST MATERIAL DUPLEX 40345 [facility] SUE SCAN 6 [facility] EXTRACRAN INC INC IAL ART COMPL [facility] G0463 [facility] SUE OUTPATIEN 6 [facility] T CLIN INC INC VISIT ASSESS & [place] [address] LINETTE BECKETT CO HEAD/BRAI 6 [facility] HEALTH N W/O INC DEPARTMEN CONTRAST T MATERIAL BASIC 76423 LINETTE SUE METABOLIC 6 [facility] PANEL INC INC CALCIUM TOTAL INJECTION J2405 LINETTEKING SUE 6 [facility] ONDANSETR INC INC ON HCL PER 1 MG BLOOD 81395 LINETTE SUE COUNT 6 [facility] COMPLETE INC INC AUTO&AUTO DIFRNTL WBC THER 32736 LINETTE SUE PROPH/DX 6 [facility] NJX IV INC INC PUSH SINGLE/1S T SBST/DRUG THERAPEUT 38736 [facility] SUE IC 6 [facility] INJECTION INC INC IV PUSH EACH NEW DRUG NJX 18751 BOYD LE LB DX/THER 6 MD JERMAINE, SBST PSC EPIDURAL/ SUBRACH CERV/THOR ACIC INJECTION J1030 [facility] SUE 6 [facility] METHYLPRE INC INC DNISOLONE ACETATE 40 MG LOCM Q9966 LINETTE SUE 200-299 6 [facility] MG/ML INC INC IODINE CONCENTRA TION PER ML FLUOR 53378 BOYD LE LB NEEDLE/CA 6 MD JERMAINE, TH PSC SPINE/PAR ASPINAL DX/THER ADDON HEPATOBIL 65305 LIN[facility]TE SEU SYST 6 [facility] IMAG INC INC INC GB W/PHARMA INTERVENJ INJECTION J2805 [facility]ET[facility] SUE 6 [facility] SINCALIDE INC INC 5 MICROGRAM S TECHNETIU A9537 LINETTE SUE M TC-99M 6 [facility] MEBROFENI INC INC N DX UP [place] 15 [place] [address] [place] ALL ABDOMINAL 5 MEDICAL REAL IMAGING TIME ASS W/IMAGE LIMITED GLUC BLD 14208 LINETTE SUE GLUC MNTR 5 [facility] DEV INC [place] [address] LINET[facility] SUE STREPTOCO 5 [facility] CCUS INC INC GROUP A CUL BACT 07205 [facility] SUE XCPT 5 [facility] URINE INC INC BLOOD/[place] [address] LINET[facility] SUE RETROPERI 5 [facility] TONEAL INC [place] W/[place] [address] [place] RETROPERI 5 MEDICAL BUBBA TONEAL IMAGING REAL TIME ASS W/IMAGE LIMITED APPL 10988 LINETTE SUE MODALITY 5 [facility] 1/> AREAS INC INC 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 L APPLICATI 68913 [facility] SUE ON 5 [facility] MODALITY INC INC 1/> AREAS HOT/COLD PACKS APPL 52965 LINETTE SUE MODALITY 5 [facility] 1/> AREAS INC INC ULTRASOUN D EA 15 MIN E-STIM G0283 LINETTE SUE 1/> AREAS 5 [facility] OTH THAN INC INC WND CARE PART TX PLAN PHYSICAL 48898 [facility] SUE THERAPY 5 [facility] EVALUATIO INC INC N OPHTH 30535 [facility] 5 XM&EVAL COMPRHNSV ESTAB PT 1/> INJECTION BOYD DEAN MD, SINGLE/ML PSC T TRIGGER POINT 1/2 MUSCLES INJECTION J1030 [facility]ETTE SUE 5 [facility] METHYLPRE INC INC DNISOLONE ACETATE 40 MG INJECTION 39635 LINETTEKING SUE 5 [facility] SINGLE/ML INC INC T TRIGGER POINT 3/> MUSCLES PSYCHIATR 25502 COMPREHEN MINEER IC 5 D INC EDELMIRA DIAGNOSTI C EVALUATIO N INJECTION 75145 [facility]ETTE SUE 5 [facility] SINGLE/ML INC INC T TRIGGER POINT 3/> MUSCLES INJECTION J1030 LINETTE SUE 5 [facility] METHYLPRE INC INC DNISOLONE ACETATE 40 MG INJECTION 52109 FREDY Fabian MD SINGLE/ML T TRIGGER POINT 1/[address] [place] [address] [place] [facility] HEAD/BRAI 5 MEDICAL DAREN N W/O IMAGING CONTRAST ASS MATERIAL RADEX 08040 [facility] SPINE 5 MEDICAL DAREN THORACIC IMAGING [address] [place] [address] [facility] CERVICAL 5 MEDICAL DAREN SPINE W/O IMAGING CONTRAST ASS MATERIAL ROGELIO 10110 LINETTE LEIVA POST-VOID 5 [facility] RESIDUAL P URINE&/BL [facility] G0463 LINETTE SUE OUTPATIEN 5 [facility] T CLIN INC INC VISIT ASSESS & MGMT PT ECG 60585 LINETTE LINETTE ROUTINE 5 [facility] ECG INC INC W/LEAST 12 LDS TRCG ONLY W/O I&R ECG 19472 CARDIOVAS CHAYO ROUTINE 5 CULAR MAT ECG CONSULTAN W/LEAST TS O 12 LDS I&R ONLY ECHO 17519 LINETTE LINETTE TTHRC R-T 5 [facility] 2D INC INC W/WOM-MOD E COMPL SPEC&COLR D CV STRS 55504 [facility] TST 5 PHYSICIAN VENITA XERS&/OR S GROUP RX CONT ECG W/O I&R CV STRS 09896 LINETTE SUE TST 5 [facility] XERS&/OR INC INC RX CONT ECG TRCG ONLY MYOCARDIA 79682 LINETTE SUE L SPECT 5 [facility] MULTIPLE INC INC STUDIES TECHNETIU A9500 LINETTE SUE M TC-99M 5 [facility] SESTAMIBI INC INC DX PER STUDY DOSE ECG 76527 LINETTE SUE ROUTINE 5 [facility] ECG INC INC W/LEAST 12 LDS TRCG ONLY W/O I&R ECG 55501 CARDIOVAS CHAYO ROUTINE 5 CULAR MAT ECG CONSULTAN W/LEAST TS O 12 LDS I&R ONLY LIPID 11953 LINETTE SUE PANEL 5 [facility] INC INC BASIC 68024 LINETTE SUE METABOLIC 5 [facility] [place] [address] LINETTE SUE THYROXINE 5 [facility] [place] [address] LINETTE SUE THYROID 5 [facility] STIMULATI INC INC NG HORMONE TSH COMPREHEN 55005 LINETTE SUE SIVE 5 [facility] METABOLIC INC INC PANEL BLOOD 84709 LINETTE SUE COUNT 5 [facility] COMPLETE INC INC AUTO&AUTO DIFRNTL WBC CREATINE 96041 LINETTE SUE KINASE MB 5 [facility] [place] [address] LINETTE [facility]UE TROPONIN 5 [facility] QUANTITAT INC INC RUPA CREATINE 14455 LINETTE SUE KINASE 5 [facility] TOTAL INC INC CRITICAL 32570 LINETTE SUE CARE 5 [facility] ED P P PATIENT INIT 30-74 MIN AMB A0427 [facility] SERVICE 5 [facility]BULANCE AMBULANCE ALS SERVICE SERVICE EMERGENCY TRANSPORT LEVEL 1 RADIOLOGI 98656 LEONEL LICEA C 5 MEDICAL DAREN EXAMINATI IMAGING [place] [address] LEONEL LICEA HEAD/BRAI 5 MEDICAL DAREN N W/O IMAGING CONTRAST ASS MATERIAL ECG 90363 LINETTE SUE ROUTINE 5 [facility] ECG INC INC W/LEAST 12 LDS TRCG ONLY W/O I&R GROUND A0425 [facility] 5 AMBULANCE AMBULANCE PER SERVICE SERVICE STATUTE MILE ECG 74451 LINETTE SUE ROUTINE 5 [facility] W/LEAST P P 12 LDS I&[place] [address] [facility] ANGIOGRAP 4 MEDICAL BUBBA HY IMAGING ABDOMEN ASS W/CONTRAS T/NONCONT RAST LOCM Q9967 LINETTE SUE 300-399 4 [facility] MG/ML INC INC IODINE CONCENTRA TION PER ML CREATININ 95901 LINETTE SUE E BLOOD 4 [facility] INC INC COLLECTIO 86384 LINETTE SUE N VENOUS 4 [facility] [place] [address] LINETTE SUE UREA 4 [facility] [place] [address] LINETTE SUE HEAD/BRAI 4 [facility] N W/O INC INC CONTRAST MATERIAL INJECTION J0696 [facility] CH[facility] 4 PHYSICIAN CHARLEY CEFTRIAXO S GROUP NE SODIUM PER 250 MG INJECTION J1040 [facility] 4 PHYSICIAN PHYSICIAN METHYLPRE S GROUP S GROUP DNISOLONE ACETATE 80 MG THERAPEUT 87767 [facility] CHAGO IC 4 PHYSICIAN CHARLEY PROPHYLAC S GROUP TIC/DX INJECTION SUBQ/IM RADIOLOGI 29510 [place] C 4 MEDICAL BUBBA EXAMINATI IMAGING ON CHEST ASS SINGLE VIEW FRONTAL FOR DIAB A5512 [facility] ONLY MX 4 DNSITY INSRT DIR FORMD PRFAB EA DIAB ONLY A5500 [facility] FIT CSTM 4 PREP&SPL SHOE MX DNSITY INSRT THERAPEUT 95677 LINETTE SUE IC 4 [facility] PROPHYLAC INC INC TIC/DX INJECTION SUBQ/IM CT LUMBAR 60238 ZULLY ZULLY SPINE 4 BUBBA BUBBA W/O CONTRAST MATERIAL THER 62537 LINETTE SUE PROPH/DX 4 [facility] NJX IV INC INC PUSH SINGLE/1S T SBST/[place] [address] ZULLY ZULLY ABDOMEN & 4 BUBBA BUBBA PELVIS W/O CONTRST 1/> BODY RE ECG 59650 LINETTE SUE ROUTINE 4 [facility] ECG INC INC W/LEAST 12 LDS TRCG ONLY W/O I&[place] [address] LINETTE SUE ABDOMEN & 4 [facility] PELVIS INC INC W/O CONTRAST MATERIAL BLOOD 14989 LINETTE SUE COUNT 4 [facility] COMPLETE INC INC AUTO&AUTO DIFRNTL WBC COMPREHEN 14982 [address] [facility] [place] [address] LIN[place] SUE TROPONIN [address] [facility] QUANTITAT INC INC RUPA CREATINE 22378 LINETTE SUE KINASE MB [address] [facility] FRACTION INC INC ONLY THROMBOPL 63271 LINETTE SUE ASTIN 4 [facility] TIME INC INC PARTIAL PLASMA/WH OLE BLOOD CREATINE 54483 LINETTE SUE KINASE 4 [facility] TOTAL INC INC PROTHROMB 47792 LIENTTE SUE IN TIME 4 [facility] INC INC FIBRIN 64904 LINETTE SUE DGRADJ [address] [facility] PRODUCTS INC INC D-DIMER QUAL/SEMI TODD THER 19103 LINETTE SUE PROPH/DX 4 [facility] NJX IV INC INC PUSH SINGLE/1S T SBST/DRUG RADIOLOGI 26751 LINETTE SUE C EXAM [address] [facility] CHEST 2 INC INC VIEWS FRONTAL&L ATERAL ECG 28687 CHAZ WARE ROUTINE 4 BRO BRO ECG W/LEAST 12 LDS I&R ONLY DRUG SCR G0434 VITA HAM VITA HAM NOT 4 CHROMATOG RAPHIC; ANY NUMBER PT ENC COMPREHEN 92545 LINETTE SUE SIVE 3 [facility] METABOLIC INC INC PANEL BLOOD 25712 LINETTE SUE COUNT 3 [facility] COMPLETE INC INC AUTO&[place] [address] LINETTE SUE THYROID 3 [facility] STIMULATI INC INC NG HORMONE TSH INJECTION J3301 MCKEMIE MCKEMIE 3 JR AREN YOUNGER TRIAMCINO LONE ACETONIDE NOS 10 MG IM ADM 14995 MCKEMIE MCKEMIE PRQ ID 3 JR AREN YOUNGER SUBQ/IM NJXS EA VACCINE IIV3 74437 MCKEMIE MCKEMIE VACCINE 3 JR AREN YOUNGER SPLIT VIRUS 0.5 ML DOSAGE IM USE IM ADM 55414 MCKEMIE MCKEMIE PRQ ID 3 JR AREN YOUNGER SUBQ/IM NJXS 1 VACCINE ADMINISTR G0008 MCKEMIE MCKEMIE ATION OF 3 JR AREN YOUNGER INFLUENZA VIRUS VACCINE THERAPEUT 12158 LINETTE SUE IC 3 [facility] PROPHYLAC INC INC TIC/DX INJECTION SUBQ/IM LIPID 64701 LINETTE SUE PANEL 3 [facility] INC INC COMPREHEN 44169 LINETTE SUE SIVE 3 [facility] [place] [address] LINETTE SUE THYROID 3 [facility] STIMULATI [place] [address] LINETTE SUE UREA 3 [facility] NITROGEN INC INC QUANTITAT RUPA CREATININ 63587 LINETTE SUE E BLOOD 3 [facility] INC INC MRI BRAIN 80556 LINETTE SUE BRAIN 3 [facility] STEM W/O INC INC W/CONTRAS T MATERIAL 3D 24685 LINETTE SUE RENDERING 3 [facility] W/INTERP INC INC & POSTPROCE SS SUPERVISI ON MRI 38535 LINETTE SUE SPINAL 3 [facility] CANAL INC INC CERVICAL W/O CONTRAST MATRL INJECTION A9576 LINETTE SUE 3 [facility] GADOTERID INC INC OL PROHANCE MULTIPACK PER ML APPLICATI 09008 LINETTE SUE ON 3 [facility] MODALITY INC INC 1/> AREAS HOT/COLD PACKS APPL 63379 LINETTEKING SUE MODALITY 3 [facility] 1/> AREAS INC INC ELEC STIMJ UNATTENDE D APPL 01456 LINETTE LINETTE MODALITY 3 [facility] 1/> AREAS INC INC 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 L APPL 47618 LINETTE LINETTE MODALITY 3 [facility] 1/> AREAS INC INC 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 L APPL 75547 LINETTE VERMAON MODALITY 3 [facility] 1/> AREAS INC INC ELEC STIMJ UNATTENDE D APPLICATI 59707 LINETET SUE ON 3 [facility] MODALITY INC INC 1/> AREAS HOT/COLD PACKS APPL 24872 LINETTE SUE MODALITY 3 [facility] 1/> AREAS INC INC ULTRASOUN D EA 15 MIN PHYSICAL 77352 LINETTE SUE THERAPY 3 [facility] EVALUATIO INC INC N THERAPEUT 44118 LINETTE SUE IC 3 [facility] PROPHYLAC INC INC TIC/DX INJECTION SUBQ/IM INJECTION J3301 LINETTE SUE 3 [facility] TRIAMCINO INC INC LONE ACETON[place] NOS 10 [place] [address] LINETTE SUE CLOSTRIDI 3 [facility] UM INC INC DIFFICILE TOXIN CUL BACT 58122 LINETTE SUE STOOL 3 [facility] AEROBIC INC INC ISOL SALMONELL A&SHIGELL OVA&DERRICK 39869 LINETTE SUE ITES 3 [facility] DIRECT INC INC SMEARS CONCENTRA TION & ID BLOOD 37901 LINETTE SUE OCCULT 3 [facility] PEROXIDAS INC INC E ACTV QUAL FECES 1-3 SPEC SMR PRIM 45248 LINETTE SUE SRC 3 [facility] GRAM/GIEM INC INC SA STAIN BCT FUNGI/ELBA L CREATINE 30223 LINETTE SUE KINASE 3 [facility] [place] [address] LINETTE SUE TROPONIN 3 [facility] QUANTITAT INC INC RUPA CREATINE 77438 LINETTE SUE KINASE MB 3 [facility] FRACTION INC INC ONLY ECG 90905 LINETTE SUE ROUTINE 3 [facility] ECG INC INC W/LEAST 12 LDS TRCG ONLY W/O I&R RADEX 28847 ZULLY ZULLY SHOULDER 3 BUBBA BUBBA COMPLETE MINIMUM 2 VIEWS RADIOLOGI 93689 ZULLY ZULLY C EXAM 3 BUBBA BUBBA CHEST 2 VIEWS FRONTAL&L ATERAL ECG 43077 JOHNY MCCLAIN ROUTINE 3 CAMILLA CAMILLA ECG W/LEAST 12 LDS I&R ONLY URNLS DIP 25491 MCKEMIE MCKEMIE 3 JR AREN JR AREN STICK/TAB LET RGNT NON-AUTO W/[place] [address] ZULLY ZULLY ABDOMEN & 3 BUBBA BUBBA PELVIS W/O CONTRAST MATERIAL ECG 51777 LINETTE SUE ROUTINE 3 [facility] ECG INC INC W/LEAST 12 LDS TRCG ONLY W/O I&R URNLS DIP 31098 LINETTE SUE 3 [facility] STICK/TAB INC INC LET REAGENT AUTO MICROSCOP Y CREATINE 97192 LINETTE SUE KINASE MB 3 [facility] [place] [address] LINETTE SUE TROPONIN 3 [facility] QUANTITAT INC INC RUPA INJECTION J2405 LINETTE SUE 3 [facility] ONDANSETR INC INC ON HCL PER 1 MG COMPREHEN 67221 LINETTE SUE SIVE 3 [facility] METABOLIC INC INC PANEL BLOOD 16690 LINETTE SUE COUNT 3 [facility] COMPLETE INC INC AUTO&AUTO DIFRNTL WBC CREATINE 96627 LINETTE SUE KINASE 3 [facility] [place] [address] LINETTE SUE LIPASE 3 [place] [address] LINETTE SUE AMYLASE 3 [facility] INC INC ECG 11741 CHAGO ANDERS ROUTINE 3 CHARLEY CHARLEY ECG W/LEAST 12 LDS I&[place] [address] LINETTE SUE INFUSION 3 [facility] THERAPY/P INC INC ROPHYLAXI S /DX 1ST TO 1 HR THERAPEUT 06587 LINETTE SUE IC 3 [facility] INJECTION INC INC IV PUSH EACH NEW DRUG 3D 32678 LINETTE SUE RENDERING 3 [facility] INC INC W/INTERP& POSTPROC DIFF WORK STATION PROSTATE G0103 LINETTE SUE CANCER 3 [facility] SCREENING INC INC ; PSA TEST BLOOD 17925 LINETTE SUE COUNT 3 [facility] COMPLETE INC INC AUTO&AUTO DIFRNTL WBC COMPREHEN 21034 LINETTE SUE SIVE 3 [facility] METABOLIC INC INC PANEL LIPID 77853 LINETTE SUE PANEL 3 [facility] INC INC ECG 96617 LINETTE CRMIE ROUTINE 3 [facility] W/LEAST P 12 LDS I&R ONLY 3D 66983 LINETTE SUE RENDERING 3 [facility] INC INC W/INTERP& POSTPROC DIFF WORK STATION ECG 34127 CHAGO ANDERS ROUTINE 3 CHARLEY CHARLEY ECG W/LEAST 12 LDS I&R ONLY URNLS DIP 04251 LINETTE SUE 3 [facility] STICK/TAB INC INC LET REAGENT AUTO MICROSCOP Y ECG 65997 LINETTE [facility]UE ROUTINE 3 [facility] ECG INC INC W/LEAST 12 LDS TRCG ONLY W/O I&R RADIOLOGI 20822 LINETTE SUE C 3 [facility] EXAMINATI INC [place] [address] LINETTE SUE ABDOMEN & 3 [facility] PELVIS INC INC W/O CONTRAST MATERIAL COMPREHEN 48650 LINETTE SUE SIVE 3 [facility] METABOLIC INC INC PANEL BLOOD 41580 LINETTE SUE COUNT 3 [facility] COMPLETE INC INC AUTO&AUTO DIFRNTL WBC CREATINE 26973 LINETTE SUE KINASE MB 3 [facility] [place] [address] LINETTE SUE TROPONIN 3 [facility] [address] LINETTE SUE AMYLASE 3 [facility] INC INC BLOOD 01966 LINETTE SUE OCCULT 3 [facility] PEROXIDAS INC INC E ACTV QUAL FECES 1-3 [place] [address] LINETTE SUE LIPASE 3 [facility] INC INC CREATINE 89263 LINETTE SUE KINASE 3 [facility] TOTAL INC INC IAADI 13975 LINETTE SUE INFLUENZA 3 [facility] B VIRUS INC INC IAADI 02254 LINETTE SUE INFFLUENZ 3 [facility] A A VIRUS INC INC CYSTOURET 24677 LEIVA LEIVA HROSCOPY 2 ART ART ANES [address]7612 [facility] TRANSURET 2 ANESTH LOLY HRAL OF THE W/URETHRO BLUE CYSTOSCOP Y NOS CYSTO 68695 LINETTE SUE BLADDER 2 [facility] W/URETERA INC INC L CATHETERI ZATION UROGRAPHY 48518 LEONEL HALLCHER IV W/WO 2 MEDICAL BUBBA KUB W/WO IMAGING TOMOGRAPH ASS Y URETHROCY 37193 LINETTE SUE STOGRAPHY 2 [facility] INC INC [place]RO[place] RS&[place] [address] LINETTE SUE UREA 2 [facility] NITROGEN INC INC QUANTITAT RUPA CREATININ 58473 LINETTE SUE E BLOOD 2 [facility] INC INC URNLS DIP 32566 LEIVA LEIVA 2 ART ART STICK/TAB LET RGNT NON-AUTO W/[place] [address] LINETTE SUE ABDOMEN & 2 [facility] PELVIS INC INC W/O CONTRST 1/> BODY RE LOCM Q9967 LINETTE SUE 300-399 2 [facility] MG/ML INC INC IOD[place] [address] LINETTE SUE TESTOSTER 2 [facility] ONE TOTAL INC INC BASIC 29551 LINETTE SUE METABOLIC 2 [facility] PANEL INC INC CALCIUM TOTAL PROSTATE G0103 LINETTE SUE CANCER 2 [facility] SCREENING INC INC ; PSA TEST URNLS DIP 31307 LEIVA LEIVA 2 ART ART STICK/TAB LET RG[place] [address] ZULLY ZULLY RETROPERI 2 BUBBA BUBBA TONEAL REAL TIME W/IMAGE COMPLETE URNLS DIP 49273 JAMA YUN 2 NAN NAN STICK/TAB LET RGNT NON-AUTO W/O MICRSCP COMPREHEN 50942 [facility]UE SIVE 2 [facility] METABOLIC INC INC PANEL HEMOGLOBI 79274 LIN[facility] SUE N 2 [facility] GLYCOSYLA INC INC SONG A1C LIPID 40094 [facility] SUE PANEL 2 [facility] INC INC URNLS DIP 10340 JAMA YUN 2 NAN NAN STICK/TAB LET RGNT NON-AUTO W/O MICRSCP OPHTHALMO 20949 NICK ROMERO SCPY 2 JAM JAM EXTENDED RETINAL DRAWING I&R 1ST DETERMINA 17134 NICK ROMERO TION 2 JAM JAM REFRACTIV E STATE MYOCARDIA 55687 LAUREN FALLUJI L SPECT 2 VENITA VENITA MULTIPLE STUDIES MYOCARDIA 33515 [facility] SUE L SPECT 2 [facility] MULTIPLE INC INC STUDIES CV STRS 41933 SELMA HAHN DONNIE TST 2 XERS&/OR RX CONT ECG W/O I&R CV STRS 88868 [facility] TST 2 [facility] XERS&/OR INC INC RX CONT ECG TRCG ONLY TECHNETIU A9502 LINETTE Barrientos TC-99M 2 [facility] TETROFOSM INC INC IN DX PER STUDY DOSE CV STRS 67448 LINET[facility] SUE TST [address] [facility]/OR [facility] RX CONT P P ECG I&R ONLY [facility] G0378 [facility] SUE OBSERVATI 2 [facility] ON INC INC SERVICE PER HOUR OBSERVATI 17378 JOHNY MCCLAIN ON CARE 2 [facility] [place] [address] LIN[facility] SUE TROPONIN 2 [facility] QUANTITAT INC INC RUPA CREATINE 05023 LINETTE LINETTE KINASE MB 2 [facility] FRACTION INC INC ONLY CREATINE 86952 LINETTE LINETTE KINASE 2 [facility] TOTAL INC INC CREATINE 17172 LINET[facility] SUE KINASE 2 [facility] [place] [place] [address] LINETTE LINETTE LIPASE 2 [facility] INC INC CREATINE 42844 LINETTE LINETTE KINASE MB 2 [facility] [place] [address] LIN[facility] SUE TROPONIN 2 [facility] QUANTITAT INC INC RUPA COMPREHEN 02610 [facility] SIVE 2 [facility] METABOLIC INC INC PANEL BLOOD 54225 LINETTE SUE COUNT 2 [facility] COMPLETE INC INC AUTO&AUTO [facility]L [facility] G0378 [facility] OBSERVATI 2 [facility] ON INC INC SERVICE PER HOUR BASIC 73809 LINETTE VERMAON METABOLIC 2 [facility] PANEL INC INC CALCIUM TOTAL INITIAL 05196 MCKEMIE MCKEMIE OBSERVATI 2 JR AREN JR AREN ON CARE/DAY 30 MINUTES ECG 35146 [facility] SUE ROUTINE 2 [facility] ECG INC INC W/LEAST 12 LDS TRCG ONLY W/O I&R 3D 32198 [facility] RENDERING 2 [facility] W/INTERP INC INC & [place] [address] LEONEL ZULLY HEAD/BRAI 2 MEDICAL BUBBA N W/O IMAGING CONTRAST ASS MATERIAL RADIOLOGI 02393 [facility] SUE C 2 [facility] EXAMINATI INC INC ON CHEST SINGLE VIEW FRONTAL CT ORBIT 68141 LEONEL ZULLY SELLA/POS 2 MEDICAL BUBBA T IMAGING FOSSA/EAR ASS W/O CONTRAST MATRL RHYTHM 55285 LINETTE SUE ECG 1-3 2 [facility] LEADS INC INC TRACING ONLY W/O I&R PRESSURIZ 83151 LIN[facility]TE SUE ED/NONPRE 2 [facility] SSURIZED INC INC INHALATIO N TREATMENT ECG 95756 [facility] ROUTINE 2 III AREN III AREN ECG W/LEAST 12 LDS I&R ONLY ADJT TIS 43615 [facility] MORROW LB TRNSFR/RE 2 ARRGMT E/N/E/L DFCT 10 SQ CM/< SUTR WND 75624 OD[facility] MORROW LB EYELID/MA 2 RGIN/TARS US/CONJUN C FULL THICK MOHS 60989 EDGE DONNIE EDGE DONNIE MICROGRAP 2 HIC H/N/H/F/G 1ST STAGE 5 BLOCKS ANES 74124 [place] MAJORS G INTEG 2 ANESTHESI [facility] A ASSOC L NRV HEAD NECK&POST ERIOR TRUNK HEMOGLOBI 08738 LIN[facility] SUE N 2 [facility] GLYCOSYLA INC INC SONG A1C COMPREHEN 69927 LIN[facility] SUE SIVE 2 [facility] METABOLIC INC INC PANEL BLOOD 37831 LIN[facility] SUE COUNT 2 [facility] COMPLETE INC INC AUTO&AUTO DIFRNTL WBC LIPID 99002 [facility] SUE PANEL 2 [place] [address] LIN[facility] SUE HEAD/BRAI 2 [facility] N W/O INC INC CONTRAST MATERIAL URNLS DIP 99900 [facility] SUE 2 [facility] STICK/TAB INC INC LET REAGENT AUTO MICROSCOP Y 3D 56876 LINETTE SUE RENDERING 2 [facility] W/INTERP INC INC & POSTPROCE [place] SUPERVIS[place] ON ECG 71779 LINETTE SUE ROUTINE 2 [facility] ECG INC INC W/LEAST 12 LDS TRCG ONLY W/O I&R BASIC 98649 LINETTE SUE METABOLIC 2 [facility] PANEL INC INC CALCIUM TOTAL BLOOD 62434 LINETTE SUE COUNT 2 [facility] COMPLETE INC INC AUTO&AUTO DIFRNTL WBC CREATINE 36263 LINETTE SUE KINASE MB 2 [facility] [place] [address] LINETTE SUE TROPONIN 2 [facility] QUANTITAT INC INC RUPA CREATINE 92293 LINETTE SUE KINASE 2 [facility] TOTAL INC INC ECG 47561 ODELLMINNA ODELLHRMAN ROUTINE 2 III AREN III AREN ECG W/LEAST 12 LDS I&R ONLY RHYTHM 84596 LINETTE LINETTE ECG 1-3 2 [facility] LEADS INC INC TRACING ONLY W/O I&[place] [address] ZULLY ZULLY MAXILLOFA 2 BUBBA BUBBA CIAL W/O CONTRAST MATERIAL RADIOLOGI 72358 ZULLY ZULLY C EXAM 2 BUBBA BUBBA CHEST 2 VIEWS FRONTAL&L ATERAL PRESSURIZ 59261 LINETTE SUE ED/NONPRE 1 [facility] SSURIZED INC INC INHALATIO N TREATMENT ECG 00606 BARAHONA MICHELLE BARAHONA MICHELLE ROUTINE 1 ECG W/LEAST 12 LDS I&R ONLY RHYTHM 08082 LINETTE SUE ECG 1-3 1 [facility] LEADS INC INC TRACING ONLY W/O I&R CREATINE 26339 LINETTE SUE KINASE 1 [facility] [place] [address] LINETTE SUE TROPONIN 1 [facility] QUANTITAT INC INC RUPA CREATINE 53375 LINETTE SUE KINASE MB 1 [facility] FRACTION INC INC ONLY BLOOD 02667 LINETTE SUE COUNT 1 [facility] COMPLETE INC INC AUTO&AUTO DIFRNTL WBC COMPREHEN 23179 LINETTE SUE SIVE 1 [facility] METABOLIC INC INC PANEL ECG 53018 LINETTE SUE ROUTINE 1 [facility] ECG INC INC W/LEAST 12 LDS TRCG ONLY W/O I&R RADIOLOGI 18521 LEONEL ANDREA C 1 MEDICAL BUBBA EXAMINATI IMAGING ON CHEST ASS SINGLE VIEW FRONTAL EXC 44270 ODALYS LB ODALYS LB LESION 1 EYELID W/O CLSR/W/SI MPLE DIR CLOSURE INCISIONA 97169 ODALYS LB ODALYS LB L BIOPSY 1 EYELID SKIN & LID MARGIN THERAPEUT 88534 LICKING LICKING IC 1 [facility] PROPHYLAC INTERNAL INTERNAL TIC/DX MED MED INJECTION SUBQ/IM XTRNL 49494 ODALYS LB ODALYS LB OCULAR 1 PHOTOG W/I&R [facility] MEDICAL PROGRE OPHTH 64089 IS[facility] MEDICAL 1 VISION XM&EVAL COMPRHNSV ESTAB PT 1/> [place] 28[address] NEW LENA ABDOMINAL 1 [facility] REAL CLINIC [place] PSC W/[place] [address] NEW LENA RETROPERI 1 [facility] TONE[facility]INIC REAL TIME PSC W/IMAGE LIMITED LIPID 18051 COMBINED COMBINED PANEL 1 PHYSICIAN PHYSICIAN S LA S LA GENERAL 32193 COMBINED COMBINED HEALTH 1 PHYSICIAN PHYSICIAN PANEL S LA S LA HEMOGLOBI 95769 COMBINED COMBINED N 1 PHYSICIAN PHYSICIAN GLYCOSYLA S LA S LA SONG A1C 3D 44991 [place] RENDERING 1 MEDICAL [facility] W/INTERP IMAGING & ASS POSTPROCE SS SUPERVISI ON MRI BRAIN 04746 [place] BRAIN 1 MEDICAL [facility] STEM W/O IMAGING CONTRAST ASS MATERIAL MRI 27817 [place] SPINAL 1 MEDICAL [facility] CANAL IMAGING CERVICAL ASS W/O CONTRAST MATRL RADIOLOGI 16269 [place] C EXAM 1 MEDICAL [facility] CHEST 2 IMAGING VIEWS ASS FRONTAL&L ATERAL ECG 85155 [facility] ROUTINE 1 EMERGENCY III AREN ECG SERVICES W/LEAST 12 LDS I&[place] [address] [place] HEAD/BRAI 1 MEDICAL BUBBA N W/O IMAGING CONTRAST ASS MATERIAL 3D 85653 [place] RENDERING 1 MEDICAL [facility] W/INTERP IMAGING & ASS POSTPROCE SS SUPERVISI ON ECG 33443 LINETTE SUE ROUTINE 1 [facility] ECG INC INC W/LEAST 12 LDS TRCG ONLY W/O I&R BASIC 56296 LINETTE SUE METABOLIC 1 [facility] PANEL INC INC CALCIUM TOTAL CREATINE 25498 LINETTE SUE KINASE 1 [facility] TOTAL INC INC BLOOD 87346 LINETTE SUE COUNT 1 [facility] COMPLETE INC INC AUTO&[place] [address] LINETTE SUE TROPONIN 1 [facility] QUANTITAT INC INC RUPA CREATINE 66411 LINETTE SUE KINASE MB 1 [facility] FRACTION INC INC ONLY BLOOD 43366 LINETTE SUE COUNT 1 [facility] COMPLETE INC INC AUTO&AUTO DIFRNTL WBC BASIC 28569 LINETTE SUE METABOLIC 1 [facility] PANEL INC INC CALCIUM TOTAL LIPID 63538 LINETTE SUE PANEL 1 [facility] INC INC ECHO 61970 LINETTE SUE TTHRC R-T [address] [facility] 2D INC INC W/WOM-MOD E COMPL SPEC&COLR D OTHER 4513 LINETTE LINETTE ENDOSCOPY [address] [facility] [place] [address] [place] [address] INFUSION [address] [facility] THERAPY INC INC PROPHYLAX IS/DX EA HOUR ESOPHAGOG 97298 Marbella ADAME ASTRODUOD 1 DEEP ARREOLA MD [facility] TRANSORAL DIAGNOSTI C SWALLOWIN 51771 LEONEL MILLERUTCHER G FUNCJ 1 MEDICAL BUBBA W/CINERAD IMAGING IOGRAPY/V ASS IDRADIOG AMB A0422 DAVID HERNANDEZ OXYGEN&O2 1 [facility]ANCE AMBULANCE SUPPLIES SERVICE SERVICE LIFE SUSTAININ G SITUATION BASIC 99714 LINETTE SUE METABOLIC 1 [facility] [place] [address] LEONEL ANDREA ABDOMEN & 1 MEDICAL BUBBA PELVIS IMAGING W/O ASS CONTRAST MATERIAL AMB A0427 DAVID HERNANDEZ SERVICE 1 AMB[facility]ANCE AMBULANCE ALS SERVICE SERVICE EMERGENCY TRANSPORT LEVEL 1 BLOOD 29983 LINETTE SUE COUNT 1 [facility] COMPLETE INC INC AUTO&AUTO DIFRNTL WBC URNLS DIP [address] [facility] STICK/TAB INC INC LET REAGENT AUTO MICROSCOP Y 3D 16092 LEONEL ZULLY RENDERING 1 MEDICAL [facility]UBBA W/INTERP IMAGING & [place] [address] LEONEL ANDREA HEAD/BRAI 1 MEDICAL BUBBA N W/O IMAGING CONTRAST ASS MATERIAL ECG 29483 LINETTE SUE ROUTINE 1 [facility] ECG INC INC W/LEAST 12 LDS TRCG ONLY W/O I&R ALS A0398 DAVID HERNANDEZ ROUTINE 1 AMBULANCE AMBULANCE DISPOSABL SERVICE SERVICE E SUPPLIES GROUND A0425 DAVID HERNANDEZ MILEAGE 1 AMBULANCE AMBULANCE PER SERVICE SERVICE STATUTE MILE RADIOLOGI 18586 LEONEL ANDREA C 1 MEDICAL BUBBA EXAMINATI IMAGING ON CHEST ASS SINGLE VIEW FRONTAL CREATINE 99990 LINETTE SUE KINASE MB [address] [facility] [place] [address] LINETTE SUE TROPONIN 1 [facility] QUANTITAT INC INC RUPA CREATINE 06370 LINETTE SUE KINASE 1 [facility] TOTAL INC INC 3D 03266 LINETTE SUE RENDERING 1 [facility] INC INC W/INTERP& [place] DI[place] [address] LINET[place] [address]UE INFUSION [address] [facility] THERAPY/P INC INC ROPHYLAXI S /DX 1ST TO 1 HR ECG 88274 LINETTE CRMIHira ROUTINE 1 [facility] W/LEAST P 12 LDS I&R ONLY SYPHILIS 18539 LINETTE SUE TEST 1 [facility] NON-TREPO INC INC NEMAL ANTIBODY QUAL SEDIMENTA 79762 LINETTE SUE TION RATE [address] [facility] [place] [address] LINETTE SUE THYROID 1 [facility] STIMULATI INC INC NG HORMONE TSH COMPREHEN 36038 LINETTE SUE SIVE 1 [facility]OS[facility] METABOLIC INC INC PANEL BLOOD 00991 LINETTE SUE COUNT 1 [facility] COMPLETE INC INC AUTO&AUTO DIFRNTL WBC CUL BACT 10475 [facility] [address] AEROBIC [address] [facility] ADDL INC INC METHS DEFINITIV E EA ISOL CUL BACT 67041 LINETTE SUE XCPT 1 [facility] URINE INC INC BLOOD/STO OL AEROBIC ISOL SUSCEPTIB 40273 LINETTEKING SUE LTY STDY 1 [facility] ANTIMICRB INC INC IAL MICRO/[place] [address] LINETTE SUE HEAD/BRAI 0 [facility] N W/O INC INC CONTRAST MATERIAL 3D 76702 LINETTE SUE RENDERING 0 [facility] INC INC W/INTERP& POSTPROC DIFF WORK STATION INITIAL 52126 MARTHAEVELIODevin MARTHASHY INPATIENT 0 JAROD OLIVERA CONSULT NEW/ESTAB PT 55 MIN LARYNGOSC 97124 SAM FLORESY OPY 0 JAROD OLIVERA FLEXIBLE DIAGNOSTI C AMB A0422 DAVID HERNANDEZ OXYGEN&O2 0 AMBULANCE AMBULANCE SUPPLIES SERVICE SERV[place] [address] [place] ANGIOGRAP 0 MEDICAL BUBBA HY CHEST IMAGING W/CONTRAS ASS T/NONCONT RAST AMB A0427 DAVID HERNANDEZ SERVICE 0 [facility]ANCE AMBULANCE ALS SERVICE SERVICE EMERGENCY TRANSPORT LEVEL 1 [facility] 14851 [facility] EXAMINATI IMAGING ON CHEST ASS SINGLE VIEW FRONTAL GROUND A0425 DAVID HERNANDEZ MILEAGE 0 AMBULANCE AMBULANCE PER SERVICE SERVICE STATUTE MILE MYOCARDIA 69728 [facility] FALLUJI L SPECT 0 PHYSICIAN VENITA MULTIPLE S GROUP STUDIES 86395 [facility] COMPLEXI 0 [facility] REAL TIME PSC W/IMAGE LIMITED BLOOD 66986 LINETTE SUE COUNT 0 [facility] COMPLETE INC INC AUTO&AUTO DIFRNTL WBC BASIC 24226 LINETTE SUE METABOLIC 0 [facility] PANEL INC INC [facility] G0378 LINETTE SUE OBSERVATI 0 [facility] ON INC INC [facility] G0378 LINETTE SUE OBSERVATI 0 [facility] ON INC INC SERVICE PER HOUR BLOOD 08705 LINETTE SUE COUNT 0 [facility] COMPLETE INC INC AUTO&[place] [address] [place] Z[place], ABDOMEN 0 MEDICAL OLES[facility] W/O IMAGING CONTRAST ASSOCIATE MATERIAL S CRITICAL 77471 [facility] CARE 0 EMERGENCY III, ILL/INJUR SERVICES MCKAYLA ED PATIENT ASSOCIATE INIT S 30-74 [place] [address] LINETTE SUE INFUSION 0 [facility] THER INC INC PROPH AD[place] [address] [place] [address] LEONEL MILLERUTCHER, HEAD/BRAI 0 MEDICAL OLESYA N W/O IMAGING CONTRAST ASSOCIATE MATERIAL S 3D 33429 LINETTE SUE RENDERING 0 [facility] W/INTERP INC INC & POSTPROCE SS SUPERVISI ON URNLS DIP 05567 LINETTE SUE 0 [facility] STICK/TAB INC INC LET REAGENT AUTO MICROSCOP Y 3D 27461 LEONEL MILLERUTCHER, RENDERING 0 MEDICAL OLESYA IMAGING W/INTERP& ASSOCIATE POSTPROC S DIFF WORK STATION ECG 37860 LINETTE SUE ROUTINE 0 [facility] ECG INC INC W/LEAST 12 LDS TRCG ONLY W/O I&R CT PELVIS 65486 [facility] MILLERZULLY, W/O 0 MEDICAL OLESYA CONTRAST IMAGING MATERIAL ASSOCIATE S RADEX ABD 20777 [facility] MILLERZULLY, COMPL 0 MEDICAL OLESYA AQT ABD IMAGING W/S/E/D ASSOCIATE VIEWS 1 [place] [address] LINETTE SUE AMYLASE 0 [facility] INC INC LEVEL III 43416 PATHOLOGY PATHOLOGY SURG 0 & & PATHOLOGY CYTOLOGY CYTOLOGY LAB LAB [facility] ROSCOPIC EXAM ANESTHESI 34560 [facility] CHUY, A 0 ANESTH LALO A [facility] LOWER ABD W/LAPS NOS IAADI 25418 LINETTE SUE INFFLUENZ 0 [facility] A A VIRUS INC INC IAADI 98222 LINETTE SUE INFLUENZA 0 [facility] B VIRUS INC INC CREATINE 65725 LINETTE SUE KINASE 0 [facility] [place] [address] LINETTE SUE LIPASE 0 [place] [address] LINETTE SUE TROPONIN 0 [facility] QUANTITAT INC INC RUPA CREATINE 58440 LINETTE SUE KINASE MB 0 [facility] FRACTION INC INC ONLY COMPREHEN 63638 LINETTE SUE SIVE 0 [facility] METABOLIC INC INC PANEL LAPAROSCO 47871 REYMUNDORAN ALLRAN PIC 0 JR, JR, APPENDECT ADI Naqvi RAULITO RHYTHM 72741 LINETTE SUE ECG 1-3 0 [facility] LEADS INC INC TRACING ONLY W/O I&R ECG 59121 LINETTE [place], ROUTINE 0 [facility] W/LEAST PROF SERV 12 LDS [place] [address] LINETTE SUE INFUSION 0 [facility] THERAPY/P INC INC ROPHYLAXI S /DX 1ST TO 1 HR LAPAROSCO 4701 LINETTE SUE PIC 0 [facility] APPENDECT INC INC RAULITO COMPREHEN 14834 LINETTE SUE SIVE 0 [facility] [address] LINETTE SUE THYROID 0 [facility] STIMULATI INC INC NG HORMONE TSH LIPID 89532 LINETTE SUE PANEL 0 [facility] INC INC BLOOD 90291 LINETTE SUE COUNT 0 [facility] COMPLETE INC INC AUTO&AUTO DIFRNTL WBC EGD 62982 LINETTE SUE BALLOON 9 [facility] DILATION INC INC ESOPHAGUS <30 MM DIAM EGD 77797 GAIL SANCHEZ, TRANSORAL 9 [facility] BIOPSY SERV SINGLE/MU FOUNDATIO LTIPLE EGD 02859 GAIL SANCHEZ, INSERT 9 [facility] GUIDE SERV WIRE FOUNDATIO DILATOR PASSAGE ESOPHAGUS SPECIAL 23811 PATHOLOGY PATHOLOGY STAIN 9 & & GROUP 1 CYTOLOGY CYTOLOGY MICROORGA LAB LAB [facility] [place] I&[place] [address] PATHOLOGY PATHOLOGY SURG 9 & & PATHOLOGY CYTOLOGY CYTOLOGY LAB LAB GROSS&CHARLEY ROSCOPIC EXAM ESOPHAGOG 4516 LINETTE SUE ASTRODUOD 9 [facility] ENOSCOPY INC INC WITH CLOSED BIOPSY DILATION 4292 LINETTE SUE OF 9 [facility] [place] [address] LINETTE SUE INFUSION 9 [facility] THERAPY/P INC INC ROPHYLAXI S /DX 1ST TO 1 [place] [address] LINETTE SUE INFUSION 9 [facility] THERAPY INC INC PROPHYLAX IS/DX EA HOUR HEPATBL 51063 LEONEL ANDREA DUX SYS 9 MEDICAL [facility] [address] LINETTE SUE ABDOMINAL 9 [facility] REAL INC [place] TIME W/[place] [address] NEW LE[place], RETROPERI 9 [facility] REAL TIME PSC W/[place] [address] LEONEL ANDREA HEAD/BRAI 9 MEDICAL OLESYA N W/O IMAGING CONTRAST ASSOCIATE MATERIAL S BASIC 61730 LINETTE SUE METABOLIC 9 [facility] [place] [address] LEONEL ANDREA ANGIOGRAP 9 MEDICAL OLESYA HY CHEST IMAGING W/CONTRAS ASSOCIATE T/NONCONT S RAST 3D 81358 LINETTE SUE RENDERING 9 [facility] W/INTERP INC INC & POSTPROCE SS SUPERVISI ON LIPID 44539 LINETTE SUE PANEL 9 [facility] INC INC RADIOLOGI 74159 Marbella LI 9 MEDICAL OLESYA EXAMINATI IMAGING ON CHEST ASSOCIATE SINGLE S VIEW FRONTAL ECG 19333 LINETTE SUE ROUTINE 9 [facility] ECG INC INC W/LEAST 12 LDS TRCG ONLY W/O I&R COMPREHEN 62802 LINETTE SUE SIVE 9 [facility] METABOLIC INC INC PANEL BLOOD 82681 LINETTE SUE COUNT 9 [facility] COMPLETE INC INC AUTO&AUTO DIFRNTL WBC CREATINE 15198 LINETTE SUE KINASE 9 [facility] TOTAL INC INC CREATINE 59564 LINETTE SUE KINASE MB 9 [facility] [place] [address] LINETTE SUE TROPONIN 9 [facility] QUANTITAT INC INC RUPA ECG 57839 LINETTE MCCLAIN, ROUTINE 9 [facility] W/LEAST PROF SERV 12 LDS I&[place] [address] LEONEL ZULLY, ANGIOGRAP 9 MEDICAL OLESYA HY IMAGING ABDOMEN ASSOCIATE W/CONTRAS S T/NONCONT RAST DUPLEX 33724 LINETTE SUE SCAN 9 [facility] EXTRACRAN INC INC IAL ART COMPL BI STUDY MRI BRAIN 49767 OLESYA C ZULLY, BRAIN 8 ZULLY OLESYA STEM W/O W/CONTRAS T MATERIAL LIPID 88290 LINETTE SUE PANEL 8 [facility] INC INC COMPREHEN 91216 LINETTE SUE SIVE 8 [facility] METABOLIC INC INC PANEL SPECIAL 66839 [facility] STAIN 8 CLINIC CLINIC GROUP 1 LABORATOR LABORATOR MICROORGA Y Y NISMS I&[place] [address] [facility] SURG 8 CLINIC CLINIC PATHOLOGY LABORATOR LABORATOR Y Y [place] [address] [facility], ABDOMINAL 8 [facility] W REAL CLINIC [place] PSC W/[place] [address] [facility], RETROPERI 8 [facility] TONEAL CLINIC REAL TIME PSC W/IMAGE LIMITED ANTIBODY 19794 [facility] HELICOBAC 8 CLINIC CLINIC TER LABORATOR LABORATOR PYLORI Y Y COLLECTIO 85999 [facility] N VENOUS 8 CLINIC CLINIC BLOOD LABORATOR LABORATOR VENIPUNCT Y Y URE CREATINE 82856 LINETTE SUE KINASE 8 [facility] TOTAL INC INC PROTHROMB 47287 LINETTE SUE IN TIME 8 [facility] INC INC BLOOD 80755 LINETTE SUE COUNT 8 [facility] COMPLETE INC INC AUTO&AUTO DIFRNTL WBC THROMBOPL 65817 LINETTE SUE ASTIN 8 [facility] TIME INC INC PARTIAL PLASMA/WH OLE BLOOD CREATINE 44832 LINETTE SUE KINASE MB 8 [facility] [place] [address] LINETTE SUE TROPONIN 8 [facility] QUANTITAT INC INC RUPA BASIC 93480 LINETTE LINETTE METABOLIC 8 [facility] PANEL INC INC CALCIUM TOTAL RADIOLOGI 22757 Marbella LAWSON 8 MEDICAL CHAD P EXAMINATI IMAGING ON CHEST ASSOCIATE SINGLE S VIEW FRONTAL ECG 64688 LINETTE SUE ROUTINE 8 [facility] ECG INC INC W/LEAST 12 LDS TRCG ONLY W/O I&[place] [address] LINETTE LINETTE ANGIOGRAP 8 [facility] HY INC INC ABDOMEN W/CONTRAS T/NONCONT RAST ECG 55685 LINETTE [place], ROUTINE 8 [facility] W/LEAST PROF SERV 12 LDS I&R ONLY RADEX 61043 LINETTE SUE SPINE 8 [facility] LUMBOSACR INC INC AL MINIMUM 4 VIEWS OPHTH 94538 [facility] 8 MICHAEL A MICHAEL A XM&EVAL COMPRE NEW PT 1/> VST DUPLEX 83909 NESSA LI 8 MEDICAL OLESYA EXTRACRAN IMAGING IAL ART ASSOCIATE COMPL BI S STUDY AMB A0427 [facility] SERVICE 8 AMBULANCE AMBULANCE ALS SERVICE SERVICE [place]ERGENCY [place] L[place] [address] [facility] ANDREA HEAD/BRAI 8 MEDICAL OLESYA N W/O [place] [address] [facility] ANDREA, CERVICAL 8 MEDICAL OLESYA SPINE W/O IMAGING CONTRAST ASSOCIATE MATERIAL S AMB A0422 [facility] OXYGEN&O2 8 AMBULANCE AMBULANCE SUPPLIES SERVICE SERVICE LIFE SUSTAININ G SITUATION 3D 00803 LEONEL ANDREA RENDERING 8 MEDICAL OLESYA W/INTERP IMAGING & ASSOCIATE POSTPROCE S SS SUPERVISI ON RADIOLOGI 00731 Marbella LI 8 MEDICAL OLES[facility] EXAMINATI IMAGING ON CHEST ASSOCIATE SINGLE S VIEW FRONTAL 3D 71879 LEONEL ANDREA RENDERING 8 MEDICAL OLES[place] IMAGING W/INTERP& ASSOCIATE POSTPROC S DIFF WORK STATION GROUND A0425 [facility] MILEAGE 8 AMBULANCE AMBULANCE PER SERVICE SERVICE STATUTE MILE THYROID 63929 LINETTE SUE UPTAKE 8 [facility] SINGLE INC INC DETERMINA TION IODINE A9516 LINETTE SUE I-123 8 [facility] SODIUM INC INC IODIDE DX PER 100 UCI TO 999 THYROID 89497 [facility] [place], SAVANA 8 MEDICAL CHAD P W/UPTAKE IMAGING SINGLE [place] [address] LINETTE SUE TROPONIN 8 [facility] QUANTITAT INC INC RUPA CREATINE 91524 LINETTE SUE KINASE MB 8 [facility] FRACTION INC INC ONLY CREATINE 25488 LINETTE SUE KINASE 8 [facility] TOTAL INC INC BLOOD 61148 LINETTE SUE COUNT 8 [facility] COMPLETE INC INC AUTO&AUTO DIFRNTL WBC COMPREHEN 25843 LINETTE SUE SIVE 8 [facility] METABOLIC INC INC PANEL ECG 79088 LINETTE SUE ROUTINE 8 [facility] ECG INC INC W/LEAST 12 LDS TRCG ONLY W/O I&R URNLS DIP 19123 LINETTE SUE 8 [facility] STICK/TAB INC INC LET REAGENT AUTO MICROSCOP Y ECG 12810 LIN[facility] [place], ROUTINE 8 [facility] W/LEAST PROF SERV 12 LDS I&R ONLY URNLS DIP 92931 [facility] 8 CLINIC CLINIC STICK/TAB LABORATOR LABORATOR LET Y Y REAGENT AUTO MICROSCOP Y RENAL 91709 [facility] 8 CLINIC CLINIC PANEL LABORATOR LABORATOR Y Y COLLECTIO 35301 [facility] VENOUS 8 CLINIC CLINIC BLOOD LABORATOR LABORATOR VENIPUNCT Y Y URE CREATINE 77087 [facility] SUE KINASE 8 [facility] [place] [address] [facility] VERMAON TROPONIN 8 [facility] QUANTITAT INC INC RUPA CREATINE 70230 [facility] SUE KINASE MB 8 [facility] FRACTION INC INC ONLY ECG 78237 [facility] ROUTINE 8 [facility] ECG INC INC W/LEAST 12 LDS TRCG ONLY W/O I&R OBSERVATI 77876 NANDINI GRIFFIN ON CARE 8 [facility] INTERNAL MED [facility] [id number] [facility] SUE OBSERVATI 8 [facility] ON INC INC SERVICE PER HOUR ECG 18474 [facility] [place], ROUTINE 8 [facility] ECG HOSPITAL W/LEAST PROF SERV 12 LDS I&R ONLY ECG 89833 [facility] [place], ROUTINE 8 [facility] W/LEAST PROF SERV 12 LDS I&R ONLY RHYTHM 73878 LINETTE SUE ECG 1-3 8 [facility] MEM [facility] LEADS INC INC TRACING ONLY W/O I&R BASIC 70102 [facility] SUE METABOLIC 8 [facility] PANEL INC INC CALCIUM TOTAL ECG 46566 [facility] SUE ROUTINE 8 [facility] ECG INC INC W/LEAST 12 LDS TRCG ONLY W/O I&R INITIAL 89328 LISSY NICK [address] [facility] ON INTERNAL CARE/DAY MED 30 MINUTES RADIOLOGI 34371 Marbella LAWSON 8 MEDICAL CHAD P EXAMINATI IMAGING ON CHEST [place] [address] [facility] S[facility] TROPONIN 8 [facility] QUANTITAT INC INC RUPA CREATINE 71309 LIN[facility] SUE KINASE MB 8 [facility] FRACTION INC INC ONLY PROTHROMB 31820 [facility] SUE IN TIME 8 [facility] INC INC CREATINE 72364 [facility] SUE KINASE 8 [facility] TOTAL INC INC BLOOD 49650 [facility] SUE COUNT 8 [facility] COMPLETE INC INC AUTO&AUTO DIFRNTL WBC 3D 36617 CRESCENCIO LAWSON 8 MEDICAL CHAD P IMAGING W/INTERP& ASSOCIATE POSTPROC S DIFF WORK STATION CT THORAX 91165 Dawn LAWSON MEDICAL CHAD P W/CONTRAS IMAGING T ASSOCIATE MATERIAL S CT PELVIS 57108 [facility] SUE 8 [facility] W/CONTRAS INC INC T MATERIAL RADEX 52110 [facility] SUE SPINE 8 [facility] CERVICAL INC [place] [address] [place] [address] [place] LUD[place], ABDOMEN 8 MEDICAL CHAD P W/CONTRAS IMAGING T ASSOCIATE MATERIAL S US SOFT 34299 LINETTE VERMAON TISSUE 8 [facility] HEAD & INC INC NECK REAL TIME IMGE DOCM LIPID 99498 [facility]UE PANEL 8 [facility] INC INC BLOOD 91382 [facility]UE COUNT 8 [facility] COMPLETE INC INC AUTO&[place] [address] LIN[facility] SUE THYROXINE 8 [facility] [place] [address] [facility] SUE THYROID 8 [facility] STIMULATI [place] [address] [facility]UE FOLIC 8 [facility] ACID INC INC SERUM COMPREHEN 06515 [facility] S[facility] SIVE 8 [facility] METABOLIC INC INC PANEL CYANOCOBA 57597 [facility]UE JUAN 8 [facility] VITAMIN INC INC B-12 HEMOGLOBI 56307 [facility] S[facility] N 8 [facility] GLYCOSYLA INC INC SONG A1C CREATINE 74034 LIN[facility]TE SUE KINASE MB 8 [facility] [place] [address] LIN[facility] SUE TROPONIN 8 [facility] QUANTITAT INC INC RUPA CREATINE 75283 [facility] SUE KINASE 8 [facility] TOTAL INC INC BLOOD 81835 [facility] SUE COUNT 8 [facility] COMPLETE INC INC AUTO&AUTO DIFRNTL WBC LIPID 41040 [facility] PANEL 8 [facility] INC INC ECG 12586 [facility]UE ROUTINE 8 [facility] ECG INC INC W/LEAST 12 LDS TRCG ONLY W/O I&R GROUND A0425 [facility] 8 AMBULANCE AMBULANCE PER SERVICE SERVICE STATUTE MILE I SI&R 42254 Donya SOLANO/NJX PX 8 HEART & AMADOR Y DURING VASCULAR C-CATHJ ASSOC VENTR&/AT R ANGRPH I SI&R 81325 Donya SOLANO/NJX PX 8 HEART & AMADOR Y DURING VASCULAR C-CATHJ ASSOC PULM&/OR SELECT L HRT 93489 LEONEL SUMMERS, CATHETERI 8 HEART & AMADOR Y ZATION VASCULAR [place]RO[place] [address] LEONEL SUMMERS, C-CATHJ 8 HEART & AMADOR Y F/SLCTV C VASCULAR ANGRPH ASSOC BASIC 12815 [facility] SEU METABOLIC 8 [facility] PANEL INC INC CALCIUM TOTAL INITIAL 82731 LEONEL SUMMERS, INPATIENT 8 HEART & AMADOR Y CONSULT VASCULAR NEW/ESTAB ASSOC PT 80 MIN HOSPITAL [id number] [facility] SUE OBSERVATI 8 [facility] MEM HOSP ON INC INC SERVICE PER HOUR INJECTION 35554 LEONEL SUMMERS, CARDIAC 8 HEART & AMADOR Y CATHJ L VASCULAR VENTR/L ASSOC ATR ANGIOGRAP H ECG 16101 [facility] FALLUJI, ROUTINE 8 HEART & NEZAR M ECG VASCULAR W/LEAST ASSOC 12 LDS I&R ONLY NONINVASI 30624 [facility] SUE VE 8 [facility] EAR/PULSE INC INC OXIMETRY SINGLE DETER NONINVASI 54266 [facility] SUE VE 8 [facility] EAR/PULSE INC INC OXIMETRY SINGLE DETER RHYTHM 88725 LINETTE SUE ECG 1-[address] [facility] LEADS INC INC TRACING ONLY W/O I&R ECG 09615 LINETTE MCCLAIN, ROUTINE 8 [facility] W/LEAST PROF SERV 12 LDS I&R ONLY HOSPITAL G0378 LIN[facility] SUE OBSERVATI 8 [facility] MEM HOSP ON INC INC SERVICE PER HOUR ECG 51410 LIN[facility] SUE ROUTINE 8 [facility] ECG INC INC W/LEAST 12 LDS TRCG ONLY W/O I&R RADIOLOGI 48089 [facility] SUE C 8 [facility] EXAMINATI INC INC ON CHEST SINGLE VIEW FRONTAL BLOOD [address] COUNT [address] [facility] COMPLETE INC INC AUTO&AUTO DIFRNTL WBC THROMBOPL 38703 LIN[facility] SUE ASTIN 8 [facility] TIME INC INC PARTIAL PLASMA/WH OLE BLOOD COMPREHEN 52267 LINET[facility] SUE SIVE 8 [facility] METABOLIC INC INC PANEL CREATINE 97547 LINETTE SUE KINASE 8 [facility] [place] [address] LINET[facility] SUE TROPONIN 8 [facility] QUANTITAT INC INC RUPA NATRIURET 43526 LINET[facility] SUE IC 8 [facility] PEPTIDE INC INC CREATINE 70434 LINETTE SUE KINASE MB 8 [facility] FRACTION INC INC ONLY PROTHROMB 77721 LINETTE SUE IN TIME 8 [facility] INC INC MRI 55509 OLESYA C ZULLY, SPINAL 8 ZULLY OLESYA CANAL LUMBAR W/O CONTRAST MATERIAL MRI 04216 OLESYA C ZULLY, SPINAL 8 ZULLY OLESYA CANAL CERVICAL W/O CONTRAST [employer] [facility] 30804 Brigida CALVILLO MD C OFFICE PSC OT/N REG SCHED HOURS Encounters Encounter Start End Date Code Location Performer Type Date [facility] - 7 7 [facility] OUTPATIEN [facility] T OFFICE 71195 LAVINIA MCKEON 7 7 Kate TOWNSEND MD,PSC 25 MINUTES [facility] - 7 7 [facility] LINETTE - 7 7 [facility] OUTPATIEN [facility] T OFFICE 92409 [facility] OUTPATIEN 7 7 PHYSICIAN T VISIT S GROUP 40 MINUTES [facility] LIN[facility]TE - 7 7 [facility] OUTPATIEN [facility] T OFFICE 16960 [facility] OUTPATIEN 7 7 PHYSICIAN T VISIT S GROUP 40 MINUTES [facility] LIN[facility] - 7 7 [facility] OUTPATIEN [facility] T OFFICE 67634 LAVINIA MCKEON 7 7 Kate TOWNSEND MD,PSC 15 MINUTES HOSPITAL LIN[facility] - 7 7 [facility] OUTPATIEN INC T [facility]OSPITAL [facility] - 7 7 [facility] OUTPATIEN INC T OFFICE 15634 [facility] OUT[facility]IEN 7 7 PHYSICIAN T VISIT S GROUP 40 MINUTES OFFICE 09653 [facility] OUTPATIEN 7 7 PHYSICIAN T VISIT 5 S GROUP MINUTES HOSPITAL [facility] - 7 7 [facility] OUTPATIEN INC T EMERGENCY 50485 DEMETRIS VIRK 7 7 PHYSICIAN JR DEPARTMEN S, [facility] T VISIT HIGH/URGE NT SEVERITY OFFICE 19217 LINETTE SERNAPATIEN 7 7 [facility] 10 P MINUTES EMERGENCY 51380 DEMETRIS ANDERS DEPT 7 7 PHYSICIAN VISIT S, PLLC HIGH SEVERITY& THREAT FUNCJ EMERGENCY 68764 [facility]ET[facility] 7 7 [facility] DEPARTMEN INC T VISIT LOW/MODER SEVERITY HOSPITAL LIN[facility]TE - 7 7 [facility] OUTPATIEN INC T OFFICE 32379 [facility] N[facility]AN OUTPATIEN 7 7 T NEW 30 CHIROPRAC MINUTES [facility] LINETTE - 7 7 [facility] OUTPATIEN INC T OFFICE 49058 LAVINIA KATE OUTPATIEN 7 7 Kate TOWNSEND MD,PSC 25 MINUTES HOSPITAL LINETTE - 7 7 [facility] OUTPATIEN INC T OFFICE 35189 LINETTE OUTPATIEN 7 7 [facility] T VISIT 5 INC MINUTES HOSPITAL [facility]TE - 7 7 [facility] OUTPATIEN INC T HOSPITAL LINETTE - 7 7 [facility] OUTPATIEN INC T OFFICE 22506 [facility] OUTPATIEN 7 7 PHYSICIAN T VISIT S GROUP 25 MINUTES HOSPITAL [facility] - 7 7 [facility] OUTPATIEN INC [facility] - 7 7 [facility] OUTPATIEN [facility] LINETTE - 7 7 [facility] OUTPATIEN INC T EMERGENCY 32415 DEMETRIS HUYNH DEPT 7 7 PHYSICIAN U VISIT S, [facility] HIGH SEVERITY& THREAT FUNJ EMERGENCY 24908 [facility] 7 7 [facility] DEPARTMEN [facility] T VISIT MODERATE SEVERITY OFFICE 09196 LINETTE LEIVA OUTPATIEN 7 7 [facility] 15 P MINUTES OFFICE 30449 [facility] OUTPATI[facility] 7 7 [facility] T [facility]ISIT MEDICAL 15 G MINUTES [facility] LINETTE - 6 6 [facility] OUTPATIEN [facility] LINETTE - 6 6 [facility]PAT[facility]EN [facility] OFFICE 72992 [facility] OUTPATIEN 6 6 PHYSICIAN T VISIT S GROUP 25 MINUTES OFFICE 78881 LAVINIA TOWNSEND OUTPATIEN 6 6 Kate TOWNSEND MD,[facility] 25 MINUTES OFFICE 66005 LINETTE LEIVA OUTPATIEN 6 6 [facility] T VISIT HOSPITAL 10 P MINUTES OFFICE 80084 KANE FERRARA OUTPATIEN 6 6 T VISIT 10 MINUTES HOSPITAL [facility] - 6 6 [facility] OUTPATIEN INC EMERGENCY 63273 LINETTE 6 6 [facility] DEPARTMEN INC T VISIT HIGH/URGE NT SEVERITY EMERGENCY 07785 DEMETRIS ANDERS DEPT 6 6 PHYSICIAN CHARLEY VISIT S, PLLC HIGH SEVERITY& THREAT FUNCJ OFFICE 91656 LAVINIA ALDANA OUTPATIEN 6 6 STEPHEN TOWNSEND MD,[facility] MINUTES HOSPITAL LINETTE - 6 6 [facility] OUTPATIEN INC T EMERGENCY 64422 LINETTE 6 6 [facility] DEPARTMEN INC T VISIT MODERATE SEVERITY EMERGENCY 68168 DEMETRIS [facility]O 6 6 PHYSICIAN CHARLEY DEPARTMEN S, [facility] T VISIT HIGH/URGE NT SEVERITY HOSPITAL LINETTE - 6 6 [facility] OUTPATIEN INC T OFFICE 38351 [facility] TOD OUTPATIEN 6 6 PHYSICIAN T VISIT S GROUP 10 MINUTES HOSPITAL LIN[facility]TE - 6 6 [facility] OUTPATIEN INC T OFFICE 18092 [facility] TOD OUTPATIEN 6 6 PHYSICIAN T VISIT 5 S GROUP MINUTES HOSPITAL LIN[facility]TE - 6 6 [facility] OUTPATIEN INC T OFFICE 42031 [facility] OUTPATIEN 6 6 PHYSICIAN CHARLEY T VISIT S GROUP 15 MINUTES HOSPITAL LINETTE - 6 6 [facility] OUTPATIEN INC T OFFICE 04375 [facility] OUTPATIEN 6 6 PHYSICIAN MAT T VISIT S GROUP 25 MINUTES [facility] LINETTE - 6 6 [facility] OUTPATIEN INC T OFFICE 98263 [facility] TOD CONSULTAT 6 6 PHYSICIAN ION S GROUP NEW/ESTAB PATIENT 30 MIN OFFICE 31253 [facility] OUTPATIEN 6 6 PHYSICIAN CHARLEY T VISIT S GROUP 10 MINUTES OFFICE 98198 [facility] OUTPATIEN 6 6 PHYSICIAN CHARLEY T VISIT S GROUP 10 MINUTES OFFICE 26613 BOYD MCKEON 6 6 MD JERMAINE, T VISIT PSC 15 MINUTES OFFICE 34880 [facility] OUTPATIEN 6 6 PHYSICIAN CHARLEY T VISIT S GROUP 10 MINUTES OFFICE 07261 BOYD MCKEON 6 6 MD JERMAINE, T VISIT PSC 15 MINUTES OFFICE 27851 PROGRESSI BANDAR OUTPATIEN 6 6 VE TEREZA T NEW 30 PODIATRY MINUTES OFFICE 85635 [facility] VERENICEIRIS OUTPATIEN 6 6 PHYSICIAN EUG T VISIT S GROUP 15 MINUTES OFFICE 55592 LIN[facility]TE OUTPATIEN 6 6 [facility] T VISIT INC 10 MINUTES HOSPITAL LIN[facility]TE - 6 6 [facility] OUTPATIEN INC T OFFICE 48082 BOYD HAYNES ARNOLD OUTPATIEN 6 6 MD JERMAINE, T VISIT PSC 25 MINUTES HOSPITAL LIN[facility] - 6 6 [facility] OUTPATIEN [facility] T [facility] - 6 6 [facility] OUTPATIEN [facility] T OFFICE 40513 [place] [facility] CONSULTAT 6 6 MEDICAL THO ION SERV NEW/ESTAB FOUNDATIO PATIENT N 40 MIN HOSPITAL UNIVERSIT - 6 6 [facility] OFF[facility] 37396 [facility] 6 6 Y T VISIT 5 HOSPITAL MINUTES [facility]OSP[facility] - 6 6 [facility] OUTPATIEN INC T OFFICE 49673 SCIFRES SCIFRES OUTPATIEN 6 6 ANG ANG T VISIT 10 MINUTES HOSPITAL [facility] - 6 6 [facility] OUTPATIEN INC T OFFICE 05168 BOYDAISHWARYA ALVAREZCHELE LB OUTPATIEN 6 6 MD JERMAINE, T VISIT PSC 15 MINUTES EMERGENCY 50694 DEMETRIS NIELSON DEPT 6 6 PHYSICIAN VISIT S, [facility] HIGH SEVERITY& TH[facility]AT [facility] OUTPATIEN INC T EMERGENCY 49125 LIN[facility]TE 6 6 [facility] DEPARTMEN INC T VISIT HIGH/URGE NT SEVERITY [facility]OSPITAL [facility] - 6 6 [facility] OUTPATIEN [facility] LINETTE - 6 6 [facility] LINETTE - 5 5 [facility] OUTPATIEN [facility] LINETTE [facility] 5 5 [facility] OUTPATIEN [facility] EMERGENCY 00683 DEMETRIS MOREL 5 5 PHYSICIAN [facility] T VISIT MODERATE SEVERITY EMERGENCY 48650 LINETTE 5 5 [facility] T VISIT LOW/MODER SEVERITY OFFICE 78578 [facility] 5 5 PHYSICIAN [facility] T VISIT S GROUP 10 MINUTES OFFICE 76501 [facility] OUTPATIEN 5 5 [facility] T VISIT MEDICAL 15 G MINUTES HOSPITAL [facility] 5 5 [facility]PATIEN [facility] OFFICE 25400 BOYD ASHER OUTPATIEN 5 5 MD JERMAINE, T VISIT PSC 15 MINUTES HOSPITAL [facility] - 5 5 [facility] OUTPATIEN [facility] - 5 5 [facility] OUTPATIEN [facility] T OFFICE 38645 BOYD BARRETT OUTPATIEN 5 5 MD JERMAINE, T VISIT PSC 15 MINUTES HOSPITAL [facility] - 5 5 [facility] OUTPATIEN [facility] T OFFICE 04316 LINETTE LEIVA OUTPATIEN 5 5 [facility] T VISIT HOSPITAL 10 P MINUTES EMERGENCY 16138 DEMETRIS HUYNH 5 5 PHYSICIAN Dee [facility] T VISIT HIGH/URGE NT SEVERITY OFFICE 67479 LINETTE LEIVA OUTPATIEN 5 5 [facility] T VISIT HOSPITAL 15 P MINUTES OFFICE 98609 FREDY COON OUTPATIEN 5 5 MD T VISIT 10 MINUTES HOSPITAL LINETTE - 5 5 [facility] OUTPATIEN INC T [facility]OSPITAL LIN[facility]TE - 5 5 [facility] OUTPATIEN INC T OFFICE 27155 CARDIOVAS [facility]AYO OUTPATIEN 5 5 CULAR MAT T VISIT CONSULTAN 15 TS O MINUTES OFFICE 46548 FREDY DEAN ANJ OUTPATIEN 5 5 MD T NEW 30 MINUTES HOSPITAL [facility] - 5 5 [facility] OUTPATIEN INC T [facility]OSP[facility] LIN[facility]TE - 5 5 [facility] OUTPATIEN INC T OFFICE 75181 CARDIOVAS CHAYO OUTPATIEN 5 5 CULAR MAT T NEW 45 CONSULTAN MINUTES TS O HOSPITAL LINETTE - 5 5 [facility] OUTPATIEN INC T OFFICE 33404 [facility] OUTPATIEN 5 5 PHYSICIAN [facility] T VISIT S GROUP 10 MINUTES HOSPITAL LINETTE - 5 5 [facility] OUTPATIEN INC T EMERGENCY 30609 LINETTE 5 5 [facility] DEPARTMEN INC T VISIT HIGH/URGE NT SEVERITY OFFICE 93068 [facility] OUTPATIEN 4 4 [facility] T VISIT MEDICAL 10 G MINUTES HOSPITAL LINETTE - 4 4 [facility] OUTPATIEN INC T [facility]OSPITAL LINETTE - 4 4 [facility] OUTPATIEN INC T OFFICE 83719 LEIVA LEIVA OUTPATIEN 4 4 ART ART T VISIT 15 MINUTES OFFICE 36702 LEIVA LEIVA OUTPATIEN 4 4 ART ART T VISIT 15 MINUTES EMERGENCY 94346 JAIDEN CAMILLA JAIDEN ACMILLA 4 4 DEPARTMEN T VISIT HIGH/URGE NT SEVERITY [facility]OSPITAL [facility] - 4 4 [facility] OUTPATIEN INC T OFFICE 60359 GRETCHEN GODINEZ OUTPATIEN 4 4 JUDAH TREVINO T NEW 45 MINUTES OFFICE 35450 [facility] OUTPATIEN 4 4 [facility] T VISIT 10 MINUTES EMERGENCY 75503 [facility] 4 4 III AREN III AREN DEPARTMEN T VISIT HIGH/URGE NT SEVERITY EMERGENCY 41162 [facility] 4 4 [facility] DEPARTMEN INC T VISIT MODERATE SEVERITY [facility]OSP[facility] - 4 4 [facility] OUTPATIEN INC T EMERGENCY 34838 [facility] DEPT 4 4 III AREN III AREN VISIT HIGH SEVERITY& THREAT [facility] LINETTE - 4 4 [facility] OUTPATIEN INC T OFFICE 05229 [facility] OUTPATIEN 4 4 CHARLEY CHARLEY T NEW 30 MINUTES EMERGENCY 37460 LINETTE DEPT 4 4 [facility] VISIT INC HIGH SEVERITY& THREAT [facility] LINETTE - 4 4 [facility] OUTPATIEN INC T OFFICE 78168 [facility] OUTPATIEN 4 4 T NEW 45 MINUTES HOSPITAL LINETTE - 3 3 [facility] OUTPATIEN INC T OFFICE 50754 NATHALY CRMIE OUTPATIEN 3 3 JR AREN JR AREN T VISIT 15 MINUTES OFFICE 05268 POPEYE PHI POPEYE PHI CONSULTAT 3 3 ION NEW/ESTAB PATIENT 40 MIN [facility]OSP[facility] - 3 3 [facility] OFF[facility] 71455 UNIVERSIT OUTPATIEN 3 3 Y T NEW 10 [facility] LINETTE - 3 3 [facility] OUTPATIEN INC T OFFICE 50883 MCKEMIE MCKEMIE OUTPATIEN 3 3 JR AREN YOUNGER T VISIT 15 MINUTES HOSPITAL LINETTE - 3 3 [facility] OUTPATIEN INC T [facility]OSPITAL LINETTE - 3 3 [facility] OUTPATIEN INC T [facility]OSPITAL LINETTE - 3 3 [facility] OUTPATIEN INC T [facility]OSPITAL LINETTE - 3 3 [facility] OUTPATIEN INC T OFFICE 32413 LAUREN AGUILAR OUTPATIEN 3 3 SAVITA BARNEY T VISIT 15 MINUTES HOSPITAL LINETTE - 3 3 [facility] OUTPATIEN INC T OFFICE 08739 MCKEMIE MCKEMIE OUTPATIEN 3 3 JR AREN YOUNGER T VISIT 15 MINUTES OFFICE 79792 MCKEMIE MCKEMIE OUTPATIEN 3 3 JR AREN YOUNGER T VISIT 15 MINUTES HOSPITAL LINETTE - 3 3 [facility] OUTPATIEN INC T OFFICE 68617 MCKEMIE MCKEMIE OUTPATIEN 3 3 JR AREN YOUNGER T VISIT 15 MINUTES HOSPITAL [facility] - 3 3 [facility] OUTPATIEN INC T EMERGENCY 16492 VOLODYMYR BRADFORD 3 3 EMERGENCY [facility] T VISIT HIGH/URGE NT SEVERITY EMERGENCY 17240 [facility] 3 3 [facility] DEPARTMEN INC T VISIT LOW/MODER SEVERITY OFFICE 21471 MCKEMIE MCKEMIE OUTPATIEN 3 3 JR AREN YOUNGER T VISIT 15 MINUTES HOSPITAL LINETTE - 3 3 [facility] OUTPATIEN INC T EMERGENCY 08800 LIN[facility] 3 3 [facility] DEPARTMEN INC T VISIT HIGH/URGE NT SEVERITY EMERGENCY 15190 [facility] DEPT 3 3 [facility]LEY VISIT HIGH SEVERITY& THREAT [facility] LINET[facility] - 3 3 [facility] OUTPATIEN INC T OFFICE 77634 SHAYEMIE SHAYEMIE OUTPATIEN 3 3 JR AREN YOUNGER T VISIT 15 MINUTES EMERGENCY 77965 LINETTE 3 3 [facility] DEPARTMEN INC T VISIT HIGH/URGE NT SEVERITY EMERGENCY 32589 [facility] DEPT 3 3 CHARLEY CHARLEY VISIT HIGH SEVERITY& THREAT [facility] LINETTE - 3 3 [facility] OUTPATIEN INC [facility]OSPITAL LINETTE - 2 2 [facility] OUTPATIEN INC [facility] LIN[facility] - 2 2 [facility] OUTPATIEN INC T OFFICE 43111 CALI ESCOBARKINS OUTPATIEN 2 2 ART ART T VISIT 5 MINUTES HOSPITAL LIN[facility] - 2 2 [facility] OUTPATIEN INC [facility] LIN[facility] - 2 2 [facility] OUTPATIEN INC T OFFICE 46420 LEIVA LEIVA OUTPATIEN 2 2 ART ART T NEW 20 MINUTES HOSPITAL LINETTE - 2 2 [facility] OUTPATIEN INC T OFFICE 51652 JAMA YUN OUTPATIEN 2 2 ARPAN ANTONY T VISIT 15 MINUTES HOSPITAL LINETTE - 2 2 [facility] OUTPATIEN INC T OFFICE 95802 JAMA YUN OUTPATIEN 2 2 ARPAN ANTONY T VISIT 15 MINUTES OFFICE 97370 NICK ROMERO OUTPATIEN 2 2 CARLOTA VAN T NEW 60 MINUTES OFFICE 68862 NATHALY ANDERSEN OUTPATIEN 2 2 JR AREN YUONGER T VISIT 15 MINUTES HOSPITAL [facility] - 2 2 [facility] OUTPATIEN INC T OFFICE 99030 KANE FERRARA OUTPATIEN 2 2 T VISIT 10 MINUTES OFFICE 95264 JOHNY MCCLAIN OUTPATIEN 2 2 CAMILLA CAMILLA T VISIT 25 MINUTES EMERGENCY 56155 ODELLALYSON BAINALYSON DEPT 2 2 III AREN III AREN VISIT HIGH SEVERITY& THREAT FUNCJ EMERGENCY 26054 LINETTE 2 2 [facility] DEPARTMEN INC T VISIT HIGH/URGE NT SEVERITY HOSPITAL [facility] - 2 2 [facility] OUTPATIEN INC T OFFICE 34339 MCKEMIE MCKEMIE OUTPATIEN 2 2 JR AREN JR AREN T VISIT 15 MINUTES OFFICE 09133 EDGE DONNIE FIELDS OUTPATIEN 2 2 T NEW 10 MINUTES HOSPITAL [facility] - 2 2 [facility] OUTPATIEN INC T OFFICE 12420 ODALYS MORROW LB OUTPATIEN 2 2 T VISIT 10 MINUTES EMERGENCY 26731 ODELLALYSON CAMPOS DEPT 2 2 III AREN III AREN VISIT HIGH SEVERITY& THREAT FUNJ [facility]OSP[facility] - 2 2 [facility] OUTPATIEN INC T EMERGENCY 57204 [facility] 2 2 [facility] T VISIT MODERATE SEVERITY EMERGENCY 16086 BARAHONA MICHELLE BARAHONA MICHELLE DEPT 1 1 VISIT HIGH SEVERITY& THREAT FUNCJ EMERGENCY 47439 [facility] 1 1 [facility] T VISIT MODERATE SEVERITY [facility] - 1 1 [facility] OUTPATIEN INC T OFFICE 91933 [place] JOHNY OUTPATIEN 1 1 [place] [facility] T VISIT INTERNAL 25 MED MINUTES OFFICE 52854 ODALYS MORROW LB OUTPATIEN 1 1 T NEW 30 MINUTES OFFICE 22229 BISHNU MORRISON JR OUTPATIEN 1 1 ATULFERNANDA AREN T VISIT CLINIC 15 PSC MINUTES OFFICE 75043 NEW MITCH MAT OUTPATIEN 1 1 [facility] VISIT CLINIC 25 PSC MINUTES OFFICE 27229 [facility] OUTPATIEN 1 1 [facility] T VISIT INTERNAL 25 MED MINUTES OFFICE 15470 NEW MCCORMACK CONSULTAT 1 1 [facility] ION [facility] NEW/ESTAB PSC PATIENT 80 MIN HOSPITAL [facility] - 1 1 [facility] OUTPATIEN [facility] OFFICE 95613 [place] [facility] OUTPATIEN 1 1 [facility] T VISIT INTERNAL 15 MED MINUTES EMERGENCY 14280 VOLODYMYR CAMPOS DEPT 1 1 EMERGENCY III AREN VISIT SERVICES HIGH SEVERITY& THREAT FUN [facility]OSPITAL [facility] - 1 1 [facility] OUTPATIEN [facility] EMERGENCY 35497 [facility] 1 1 [facility] DEPARTMEN [facility] VISIT MODERATE SEVERITY OFFICE 56801 [facility] OUTPATIEN 1 1 [facility] VISIT INTERNAL 25 MED MINUTES OFFICE 19616 [facility] [facility] OUTPATIEN 1 1 [facility] VISIT INTERNAL 25 MED MINUTES HOSPITAL [facility] - 1 1 [facility]PATIEN [facility] - 1 1 [facility] OFFICE 32632 [facility] 1 1 [facility] T [facility]ISIT INTERNAL 25 MED MINUTES [facility] 1 [facility] 1 [facility] T OFFICE 59860 [facility] 1 1 [facility] T VISIT INTERNAL 15 MED MINUTES EMERGENCY 21362 [facility] 1 1 [facility] DEPARTMEN [facility] T VISIT HIGH/URGE NT SEVERITY EMERGENCY 25151 VOLODYMYR CAMPOS DEPT 1 1 EMERGENCY III AREN VISIT SERVICES HIGH SEVERITY& THREAT [facility] T OFFICE 54216 [facility] M[facility] OUTPATIEN 1 1 [facility] YOUNGER T VISIT INTERNAL 15 MED MINUTES OFFICE 55321 [facility] OUTPATIEN 1 1 [facility] YOUNGER T VISIT INTERNAL 15 MED MINUTES OFFICE 89392 [facility] OUT[facility] 1 1 [facility] SAMPSON T VISIT INTERNAL 15 MED MINUTES [facility] 1 [facility] T [facility] 1 [facility] T OFFICE 03693 [facility] LAUREN OUTPATIEN 1 1 [facility] BARNEY T VISIT INTERNAL 15 MEDI MINUTES OFFICE 80325 [facility] OUTPATIEN 0 0 [facility] YOUNGER T VISIT INTERNAL 15 MED MINUTES [facility] T OFFICE 19447 [facility] OUTPATIEN 0 0 [facility] YOUNGER T VISIT INTERNAL 15 MED MINUTES EMERGENCY 55552 VOLODYMYR BOURNE DEPT 0 0 EMERGENCY VISIT SERVICES HIGH SEVERITY& THREAT [facility] OFFICE 49544 [facility] OUT[facility] 0 0 [facility] PAIGE VISIT INTERNAL 15 MED MINUTES OFFICE 38722 BISHNU MORRISON W OUTPATIEN 0 0 [facility] 15 PSC MINUTES OFFICE 43677 [facility] OUTPATI[facility] 0 0 Kate GARNICA JR VISIT INTERNAL MCKAYLA F 15 MED MINUTES OFFICE 56699 [facility] ALLRAN CONSULTAT 0 0 JR CECELIA, ANH Naqvi NEW/ESTAB PATIENT 80 MIN EMERGENCY 24974 [facility] 0 0 [facility] DEPART[facility] T VISIT HIGH/URGE NT SEVERITY [facility] T OFFICE 95311 [facility] OUTPATI[facility] 0 0 Kate GARNICA JR VISIT INTERNAL MCKAYLA F 15 MED MINUTES [facility] 0 [facility] T OFFICE 96199 [facility] OUTPATIEN 9 9 NAH[facility] RAI Kate VISIT INTERNAL MCKAYLA F 15 MED MINUTES [facility] 9 9 [facility] T OFFICE 65160 GAIL SANCHEZ OUTPATIEN 9 9 ULI ESPINOZA T VISIT SERV 25 FOUNDATIO MINUTES [facility]OSP[facility] - 9 9 [facility] - 9 9 [facility] T OFFICE 64146 [facility] JOHNY OUTPATIEN 9 9 NAHUN Allred T VISIT INTERNAL 15 MED MINUTES OFFICE 09050 Lauren WAYNE OUTPATIEN 9 9 [facility] 15 PSC MINUTES OFFICE 96827 [facility] RUTERINMIE OUTPATIEN 9 9 NAHUN RAI Kate VISIT INTERNAL MCKAYLA F 15 MED MINUTES [facility] 9 9 [facility] OUTPATIEN INC T EMERGENCY 71980 VOLODYMYR MASON, ILIANAT 9 9 EMERGENCY [facility] VISIT SERVICES O HIGH SEVERITY& ASSOCIATE THREAT S FUN EMERGENCY 95957 [facility] 9 9 [facility] DEPARTMEN INC T VISIT HIGH/URGE NT SEVERITY OFFICE 83326 [facility] RUTKEMIE OUTPATIEN 9 9 NAHUN RAI Kate VISIT INTERNAL MCKAYLA F 15 MED MINUTES OFFICE 32276 [facility] ELIAS OUTPATIEN 9 9 NAH[facility] SHEFFIELD T VISIT INTERNAL 15 MED MINUTES OFFICE 36603 [facility], OUTPATIEN 9 9 NAHUN Allred T VISIT INTERNAL 10 MED MINUTES OFFICE 58924 [facility] M[facility]EM[facility] OUTPATIEN 9 9 NAHUN T VISIT INTERNAL MCKAYLA F 15 MED MINUTES [facility] 9 9 [facility] T OFFICE 34413 [facility] ELIAS, OUTPATIEN 9 9 NAHUN SHEFFIELD T VISIT INTERNAL 15 MED MINUTES [facility] - 8 8 [facility] T OFFICE 48689 [facility] ELIAS, OUTPATIEN 8 8 NAHUN SHEFFIELD T VISIT INTERNAL 15 MED MINUTES OFFICE 96276 [facility] EL[facility], OUTPATIEN 8 8 NAHUN SHEFFIELD T VISIT INTERNAL 15 MED MINUTES OFFICE 50626 [facility] M[facility] OUTPATIEN 8 8 NAHUN JR T VISIT INTERNAL MCKAYLA F 15 MED MINUTES OFFICE 60620 Lauren WAYNE OUTPATIEN 8 8 [facility] 15 PSC MINUTES EMERGENCY 35839 [facility] 8 8 [facility] [facility] T VISIT MODERATE SEVERITY EMERGENCY [id number] AMBERLY MASON, DEPT 8 8 [facility] VISIT CORPORATI O HIGH ON SEVERITY& THREAT [facility] - 8 8 [facility] T OFFICE [id number] [place] [facility] OUTPATIEN 8 8 Kate GARNICA JR VISIT INTERNAL MCKAYLA F 15 MED MINUTES HOSP[facility] - 8 8 [facility] T OFFICE [id number] [place] [facility] OUTPATIEN 8 8 Kate GARNICA JR VISIT INTERNAL MCKAYLA F 15 MED MINUTES [facility]OSP[facility] - 8 8 [facility] T OFFICE [id number] [place] [facility] OUTPATIEN 8 8 VALLEY JR, T VISIT INTERNAL MCKAYLA F 15 MED MINUTES OFFICE [id number] Lauren WAYNE CONSULTAT 8 8 [facility] NEW/ESTAB PSC PATIENT 60 MIN OFFICE 48673 NEW BEN OUTPATIEN 8 8 MOCA III, T VISIT CLINIC RADHA L 10 PSC MINUTES OFFICE 47688 [place] [facility] OUTPATIEN 8 8 NAHUN RAI T VISIT INTERNAL MCKAYLA F 15 MED MINUTES HOSP[facility] - 8 8 [facility] - 8 8 [facility] T EMERGENCY 96186 [facility] VALERO 8 8 [facility] VISIT PROF SERV MODERATE SEVERITY EMERGENCY 33379 [facility] 8 8 [facility] T VISIT HIGH/URGE NT SEVERITY OFFICE 74220 [facility] BEN OUTPATIEN 8 8 MOCA III, T NEW 45 CLINIC RADHA L MINUTES PSC EMERGENCY 99416 [facility] DEPT 8 8 [facility] VISIT [facility] HIGH SEVERITY& THREAT [facility] - 8 8 [facility] OUT[facility] T PERIODIC 31277 [place] [facility] PREVENTIV 8 8 NAHUN RAI E MED EST INTERNAL MCKAYLA F PATIENT MED 40-64YRS [facility] - 8 8 [facility] T OFFICE 75637 ZEE, ZEE, OUTPATIEN 8 8 [facility] VISIT 40 MINUTES HOSPITAL [facility] - 8 8 [facility] T EMERGENCY 47758 [facility] COLMENARES DEPT 8 8 [facility] HIGH PROF SERV SEVERITY& [facility] T EMERGENCY 94888 [facility] 8 8 [facility] T VISIT HIGH/URGE NT SEVERITY OFFICE 25368 YAYO ZEE OUTPATIEN 8 8 LISBETH BOB T VISIT 40 MINUTES OFFICE 15199 GAIL NYE, CONSULTAT 8 8 [facility] A ION SERV NEW/ESTAB FOUNDATIO PATIENT 40 MIN OFFICE 27508 MIKE BURGER 8 8 KRISTIAN GARNETT T VISIT PSC 15 MINUTES
--- OUTSIDE RECORDS SUMMARY | 2017-09-05 04:33 | External Medical Summary Rpt ---
Author Author , DANTE HOFF Address Unknown Phone [email or web address] Immunization Name Date Rout CVX Reac Dose Comm Prov Is Faci e tion ent ider Refu lity Give sed n Infl 10-0 Intr 0.5 Hist GSHA No GSHA uenz 2-20 amus mL oric NE NE a 17 cula al Quad r Info rmat W/Pr ion es - Sour ce Unsp ecif ied
--- OUTSIDE RECORDS SUMMARY | 2017-09-05 04:33 | External Medical Summary Rpt ---
[...] metabol ic variabl es, specifi c drug calender worker helper ry, andspec imen charact eristic s can affect test outcome . Technic sulaimanaamiru ltation is availab le if a test result is inconsi stent with anexpec vandana outcome . (email- lindsay andrews @[email or web address] or call [employer] [phone] )Drug brands, if listed herein, are tradema rks of their respect efe rs.Perf ormed at: [facility] [id number] [place], [place] [id number]Lab Directo r: Tha Landeros MD, Phone: [phone] Oxazepa Negativ Cutoff= No No No Jun [...]
--- OUTSIDE RECORDS SUMMARY | 2017-09-05 04:33 | External Medical Summary Rpt ---
[...] anexpec vandana outcome . (email- lindsay andrews @[email or web address] or call [employer] [phone] )Drug brands, if listed herein, are tradema rks of their respect efe rs.Perf ormed at: [facility] [id number] [place], [place] [id number]Lab Directo r: Tha Landeros MD, Phone: [phone] Oxazepa Negativ Cutoff= No No No Jun [...]
--- OUTSIDE RECORDS SUMMARY | 2017-09-05 04:33 | External Medical Summary Rpt ---
Author Author , DANTE HOFF Address Unknown Phone [email or web address] Immunization Name Date Rout CVX Reac Dose Comm Prov Is Faci e tion ent ider Refu lity Give sed n Infl 10-0 Intr 0.5 Hist GSHA No GSHA uenz 2-20 amus mL oric NE NE a 17 cula al Quad r Info rmat W/Pr ion es - Sour ce Unsp ecif ied
== END 2017-08-08 17:00 | disposition home or self-care (01) ==
LOC: ER 15:11 → 2ND 16:32 → ER 16:32 → 2ND 17:05
PROVIDERS: Emergency Medicine
DX: I25.110 Atherosclerotic heart disease of native coronary artery with unstable angina pectoris (principal); R07.9 Chest pain, unspecified; M54.9 Dorsalgia, unspecified; E11.9 Type 2 diabetes mellitus without complications; Z95.5 Presence of coronary angioplasty implant and graft; I71.4 Abdominal aortic aneurysm, without rupture; I10 Essential (primary) hypertension
CPT/HCPCS: G0378; Q9967

== ENCOUNTER → 2017-08-29 | Outpatient (CLI) | payer MEDICAID ==
[2017-08-29 20:31] LABS: AMPHETAMINES/METAMPHETAMINES NEGATIVE ng/mL (<1000)
[2017-09-02 09:42] LABS: Alprazolam Negative (Cutoff=100); Benzodiazepines Negative ng/mL (Cutoff=100); Clonazepam Negative (Cutoff=100); Flurazepam Negative (Cutoff=100); Lorazepam Negative (Cutoff=100); Midazolam Negative (Cutoff=100); Temazepam Negative (Cutoff=100); Triazolam Negative (Cutoff=100)
== END ==
LOC: LAB 14:18
PROVIDERS: Emergency Medicine
DX: Z79.899 Other long term (current) drug therapy (principal)

== ENCOUNTER → 2017-11-02 | Outpatient (CLI) | payer MEDICAID ==
[~2017-11-02] MED LIST changes: +NITROGLYCERIN0.4 MG SL
[2017-11-02 13:53] LABS: URINE BILIRUBIN - DIPSTICK NEGATIVE (NEG); URINE BLOOD NEGATIVE (NEG)
[2017-11-02 14:13] LABS: URINE SQUAMOUS CELLS OCC #/hpf (OCC)
[2017-11-02 15:37] LABS: LYMPH # 2.1 K/mm3 (0.7-4.5); LYMPH % 37.4 % (10-50)
--- NOTE | 2017-11-02 15:38 | RADIOLOGY REPORT PS360 ---
ABD ACUTE(MUL VIEWS) HISTORY: ABD PAIN ORDERING PHYSICIAN: ELICEO VIVAR MD PATIENT AGE: 62 years COMPARISON: 08/07/2017 FINDINGS: Frontal view the chest shows no acute finding. Upright and supine views of the abdomen show nonspecific nonobstructive bowel gas pattern. Surgical clips are present in the right lower quadrant. There is mild amount retained colonic feces on the right. No acute bony density. IMPRESSION: No acute finding
[2017-11-02 16:13] LABS: BUN 20 mg/dL (7-18)
[2017-11-02 16:18] LABS: GFR (ESTIMATED) 61 ML/MIN (>60)
== END ==
LOC: LAB 13:32
PROVIDERS: Surgery
DX: R10.9 Unspecified abdominal pain (principal)

== ENCOUNTER 2017-11-21 01:49 | Observation (INO) | payer MEDICAID ==
[2017-11-21] VITALS (10 sets, daily range): BP systolic 93–154; BP diastolic 57–80
[~2017-11-21] VITALS: Ht 172.7 cm; Wt 104.0 kg
--- NOTE | 2017-11-21 01:52 | Emergency Room Report ---
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 N Clinical Suspician of Infection? N Mental Status: 1 - Regular (Normal Baseline) Sepsis Risk:Low Sepsis Risk Have you (or family members/close friends) recently traveled outside the [place]? N If Yes, where/when: Have you had exposure to infectious disease within the past month? N TB? Other? Specify: Comment the patient states he woke up this morning with LEFT anterior chest pain, nausea and vomiting. Associated with shortness of breath, chills. He has felt hot but has not taken temperature to see whether he has a fever. He denies cough. He denies diarrhea. He has some upper abdominal discomfort. He has taken a couple of nitroglycerin this evening but symptoms have not gone away. He has a history of coronary artery disease and says his current chest pain feels similar to previous heart pain. ALLERGIES Coded Allergies: Penicillins (08/07/17) Sulfa (Sulfonamide Antibiotics) (08/07/17) cephalexin (08/07/17) latex (08/07/17) Home Medications Active Scripts Polyethylene Glycol (Miralax Powder 255 Gm Bottle) 17 GM PO DAILY #1 POW Prov: 02/13/17 ONDANSETRON HCL (Zofran 4MG Tab) 4 MG PO Q6HP PRN NAUSEA AND VOMITING #30 TAB Prov: 04/09/17 Pantoprazole Sodium (Protonix) 40 MG PO DAILY #30 PKT Prov: 04/09/17 Reported Medications Methocarbamol (Methocarbamol 750MG) 750 MG PO BIDP PRN MUSCLES NITROGLYCERIN (Nitrostat) 0.4 MG SL [id number] PRN CHEST PAIN Metformin HCl (Metformin) 500 MG PO DAILY LOSARTAN/HYDROCHLOROTHIAZIDE (Losartan-Hctz 50-12.5 MG Tab) 1 TAB PO DAILY LEVOTHYROXINE SOD (Levothyroxine 0.075MG Tablet) 75 MCG PO DAILY Furosemide (Furosemide 40MG) 40 MG PO DAILY HYDROCODONE/ACETAMINOPHEN (Lortab 10-325 (generic) Tablet) 1 TAB PO QID ALFUZOSIN HCL (Alfuzosin HCl ER) 10 MG PO DAILY #30 Sildenafil Citrate (Sildenafil) 20 MG PO PRN PRN PROSTATE ASPIRIN (Aspirin) 81 MG PO DAILY Omeprazole (Omeprazole 40MG) 40 MG PO DAILY Simvastatin (Simvastatin 40MG Tab) 40 MG PO QHS History Medical History General CAD? No Angina: Yes NM: No Hypertension? Yes Hyperlipidemia? Yes CHF? No DVT? No PE? No COPD? Yes Asthma? No Anemia? No GERD? Yes Gastric ulcers? Yes GI Bleed? No Hernia? No Thyroid Problems? Yes Hypothyroidism? Yes CVA? Yes Seizures? No Diabetes? Yes Insulin Dependent: No Insulin Pump: No Home FSBS? Yes Renal Insuffiency? No End Stage Renal Disease? No UTI? Yes Stones? No BPH? No GB Disease: Yes Nephritic Syndrome? No Asplenia? No Hepatitis? No Sickle Cell Disease? No Arthritis? Yes Migraines? No Cataracts? No Glaucoma? No MRSA? Yes HIV? No TB? No Anxiety? No Depression? 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 Yes Additional hx: AAA, THORACIC AORTIC ANUERYSM, BLIND RIGHT EYE, BRAIN TUMOR Immunization Hx DT/Tetanus 1-4 Years Ago Flu 2015-17FSN Pneumonia Refuses Surgical Hx Previous Surgery?Y R ARM TENDON PARTIAL BRAIN TUMOR REMOV 5 RECONSTRUCTIVE FACIAL APPY CYST REMOVED FROM NECK X2 HEART CATH-CLEAR Appendix BIOPSY ON BOTH EYES CANCER REMOVAL FROM LT EYE SURGERY Family History Family Hx Diabetes Yes CAD Yes Hypertension Yes Hyperlipidemia Yes Cancer Yes TB No Social History Alcohol Alcohol: No Additionial History Additional History Cardiac cath 05/26/17 with drug eluting stent to the RIGHT coronary artery Review of Systems All Other Systems Reviewed and Negative Constitutional chills Respiratory shortness of breath Cardiovascular chest pain Gastrointestinal abdominal pain, denies diarrhea, nausea, vomiting Physical Exam Vital Signs Vital Signs Date Time Temp Pulse Resp B/P Pulse O2 O2 Flow FiO2 Ox Delivery Rate 11/21 0238 110 16 107/68 98 11/21 0151 98.9 110 16 154/80 98 General Appearance episode of vomiting during my history and physical Eye Exam - bilateral eye normal exam, bilateral eye PERRL, bilateral eye EOMI Ear, Nose, Throat hearing grossly normal, normal ENT inspection Neck normal inspection, non-tender, supple, full range of motion Respiratory Status Yes: trachea midline, chest symmetrical, non tender chest. No: respiratory distress. Lung Sounds bilateral: normal breath sounds, lungs clear. Cardiovascular normal exam, regular rate/rhythm, no peripheral edema, no gallop, no JVD, no murmur, no rub, normal peripheral pulses Peripheral Pulses Pulses normal Yes Gastrointestinal normal bowel sounds, normal exam, non tender, soft, no organomegaly Extremities normal inspection Neurologic alert, oriented x 3 Mental status normal mood/affect Skin intact, normal color, warm/dry Medical Decision Making LABS/Meds/Orders Pt receiving controlled substance in ED? No Results/Orders Laboratory Tests 11/21/17199: Amylase 34, Lipase 71 L 11/21/17199: Sodium 140, Potassium 3.3 L, Chloride 103, Carbon Dioxide 25, BUN 16, Creatinine 1.4 H, Estimated Creat Clear 78, Estimated GFR (MDRD) 51, Glucose 131 H, Calcium 8.7, Total Bilirubin 0.7, AST 22, ALT 35, Alkaline Phosphatase 117 H, Creatine Kinase 122, CK-MB (CK-2) Rel Index 0.4, CK and CKMB Interp < 0.5, Troponin I < 0.02, Total Protein 7.2, Albumin 3.9, Globulin 3.3 H, Albumin /Globulin Ratio 1.2, WBC 7.9, RBC 4.44 L, Hgb 12.7 L, Hct 38.3 L, MCV 86.3, RDW 13.4, Plt Count 190, MPV 7.2 L, Gran % 74.5, Gran # 5.9, Lymphocytes % 19.8 , Monocytes % 4.2, Eosinophils % 1.2, Basophils % 0.3, Lymphocytes # 1.6, Monocytes # 0.3, Eosinophils # 0.1, Basophils # 0.0, PUBS MCHC 33.2, MCH 28.7 Current Medication Orders Sig/Blayne Start time Last Medication Dose Route Stop Time Status Admin Aspirin 243 MG ONCE ONE 11/21 300 DC 11/21 PO 11/21 301 0251 Aspirin 0 .STK-MED ONE 11/21 254 DC .ROUTE Ondansetron HCl 0 .STK-MED ONE 11/21 234 DC .ROUTE Sodium Chloride 1,000 ML .STK-MED ONE 11/213 DC IV Ondansetron HCl 4 MG ONCE ONE 11/21 230 DC 11/21 IV 11/21 0231 0235 Sodium Chloride 1,000 ML .Q1H1M 11/21 230 DC 11/21 IV 11/21 0330 0234 Sodium Chloride 10 ML PRN PRN 11/21 020 AC IV 11/22 0156 Orders Procedure Date/time Status Decision to admit 11/21 0248 Active LIPASE 11/21 0219 Complete AMYLASE 11/21 219 Complete ELECTROCARDIOGRAM REQUEST 11/21 157 Active CHEST(2 VIEWS-NOT PORTABLE) 11/21 157 Active IV SALINE LOCK 11/21 157 Active CBC WITH AUTO DIFF 11/21 157 Complete CARDIAC ENZYMES 11/21 157 Complete CHEM 12 PROFILE 11/21 157 Complete CM/EKG CM/EKG Comments EKG interpreted by Abhishek Valdez MD: Rhythm: sinus tachycardia Rate: 101 [place]: LEFT Ectopy: none Conduction: normal ST Segment Changes: none T Wave Changes: none Q Waves: none No evidence of acute ischemia or injury XRAY/CT/US XRAY/CT/US XRAY chest Comment Chest x-ray interpreted by Abhishek Valdez M.D. No infiltrate, pneumothorax, pleural effusion, or wide mediastinum. Progress - 2:50 AM: I have discussed the case with Dr. Ragsdale for Dr. Law who agrees to admit the patient to the hospital. We discussed the patient's clinical information, including history, exam, laboratory and radiology results and ED course. Per hospital procedure, I will write temporary bridge inpatient orders on the patient. Specific orders requested by the admitting physician: IV fluids, antiemetics, serial cardiac enzymes Departure Departure Disposition Still a Patient Clinical Impression Primary Impression: Chest pain Qualifiers: Chest pain type: precordial pain Qualified Code: R07.2 - Precordial pain Secondary Impressions: Vomiting Qualifiers: Vomiting type: unspecified Vomiting Intractability: intractable Nausea presence: with nausea Qualified Code: R11.2 - Nausea with vomiting, unspecified Condition STABLE Referrals Ani DOSS,Tha Vincent (Family) ED Critical Care Critical Care No at 0514
[2017-11-21 02:14] LABS: HEMOGLOBIN 12.7 g/dL (14.1-18.0); LYMPH # 1.6 K/mm3 (0.7-4.5); LYMPH % 19.8 % (10-50)
--- OUTSIDE RECORDS SUMMARY | 2017-11-21 02:32 | External Medical Summary Rpt | CCD ---
Author Author , LUIS EDUARDO HOFF Address Unknown Phone [email or web address] Care Team Providers Care Senior Medical Director Name Role Phone [facility], [facility] Purpose Continuity of Care Document - 02-02-2010 through 2016 Problems Code Diagnosis DOS Provider Status 441.4 441.4 ABDOM 01-25-2013 [facility] 558.9 558.9 01-25-2013 [facility] IT NEC I20.0 UNSTABLE ANGINA I71.4 ABDOMINAL AORTIC ANEURYSM, WITHOUT RUPTURE K21.9 GASTRO-ESOP HAGEAL REFLUX DISEASE WITHOUT ESOPHAGITIS K82.8 OTHER SPECIFIED DISEASES OF GALLBLADDER M51.16 INTERVERTEB RAL DISC DISORDERS W RADICULOPAT HY, LUMBAR REGION R07.9 CHEST PAIN, UNSPECIFIED R10.9 UNSPECIFIED ABDOMINAL PAIN S00.93XA CONTUSION OF UNSPECIFIED PART OF HEAD, INITIAL ENCOUNTER S16.1XXA STRAIN OF MUSCLE, FASCIA AND TENDON AT NECK LEVEL, INIT S43.401A UNSPECIFIED SPRAIN OF RIGHT SHOULDER JOINT, INIT ENCNTR Allergies, Adverse Reactions, Alerts Type Drug Allergy Adverse Reaction to Substance Substance Reaction Severity Penicillin I-RASH Intermediate SULFA (sulfonamide) SICK TO STOMACH Unknown Medications Na ND Rx Da Fi Fi Am Da Di Ph RX Ph St me C No te ll ll ou ys ag ar # ys at rm s nt no ma ic us Or Da si cy ia de te s n re d LO 16 11 11 0 30 30 EA 33 MC Ac SA 71 -2 -[address] 79 KE ti RT 40 9- 9- 00 SI 16 TX ve AN 22 20 20 0 DE [...] PE 40 4- 4- 00 SI 87 TX ve NT 66 20 20 0 DE E IN 20 13 13 JR 1 PH 30 AR WI 0 MA LL MG CY IA M CA OF F PS UL CY E NT HI AN A SI 16 11 11 0 30 30 EA 33 MC Ac MV 71 -1 -[address] 61 KE ti 40 2- 2- 00 SI 39 TX ve TA 68 20 20 0 DE E TI 40 13 13 JR N 3 PH 40 AR WI MA LL MG CY IA M TA OF F BL ET CY NT HI AN A LO 16 06 11 4 15 15 EA 31 MC Ac SA 71 -1 -[address] 99 KE ti RT 40 0- 2- 00 SI 99 TX ve AN 22 20 20 0 DE [...] RA 50 4- 1- 00 SI 09 TX ve ZO 13 20 20 0 DE E LE 63 13 [address] [place] MA LL 40 CY IA M MG OF F CA CY PS NT UL HI E AN A ME 00 08 11 3 30 30 EA 32 Ac TF 09 -0 -[address] 52 KE ti OR 31 2- 9- 00 SI 59 TX ve TX 04 20 20 0 DE E N 81 13 13 JR HC 0 PH L AR WI 50 MA LL 0 CY IA MG M OF F TA BL CY ET NT HI AN A FU 63 08 11 2 30 30 EA 32 Ac RO 30 -2 -[address] 80 KE ti SE 40 9- 5- 00 SI 32 TX ve TX 62 20 20 0 DE E DE 51 13 13 JR 0 PH 40 AR WI MA LL MG CY IA M TA OF F BL ET CY NT HI AN A CL 00 10 11 0 45 15 EA 33 Ac ON 22 -1 -[address] 31 KE ti AZ 83 4- 2- 00 SI 89 TX ve EP 00 20 20 0 DE E AM 45 13 13 JR 1 0 PH AR WI MG MA LL CY IA TA M BL OF F ET CY NT HI AN A LE 00 07 11 3 30 30 EA 32 MC Ac VO 37 -2 -[address] 46 KE ti TH 81 6- 2- 00 SI 48 TX ve YR 80 20 20 0 DE [...] RT 40 0- 5- 00 SI 99 TX ve AN 22 20 20 0 DE [...] AZ 83 4- 4- 00 SI 89 TX ve EP 00 20 20 0 DE E AM 45 13 13 JR 1 0 PH AR WI MG MA LL CY IA TA M BL OF F ET CY NT HI AN A SI 16 08 10 2 30 30 EA 32 MC Ac MV 71 -0 -[address] 57 KE ti 40 7- 2- 00 SI 30 TX ve TA 68 20 20 0 DE E TI 40 13 13 JR N 3 PH 40 AR WI MA LL MG CY IA M TA OF F BL ET CY NT HI AN A OM 62 09 10 2 30 30 EA 32 MC Ac EP 17 -0 -[address] 86 KE ti RA 50 4- 9- 00 SI 09 TX ve ZO 13 20 20 0 DE E LE 63 13 [address] AR [place] MA LL 40 CY IA M MG OF F CA CY PS NT UL HI E AN A ME 00 08 10 3 30 30 EA 32 MC Ac TF 09 -0 -[address] 52 KE ti OR 31 2- 7- 00 SI 59 TX ve TX 04 20 20 0 DE E N 81 13 13 JR HC 0 PH L AR WI 50 MA LL 0 CY IA MG M OF F TA BL CY ET NT HI AN A FU 63 08 10 2 30 30 EA 32 MC Ac RO 30 -2 -[address] 80 KE ti SE 40 9- 3- 00 SI 32 TX ve TX 62 20 20 0 DE E DE [...] ti 4 ve MG /2 ML AL PA 51 02 0 No OM 07 -2 ET 90 8- Lo NG 89 20 ng ZI 52 13 er NE 0H Ac 25 ti MG ve TA BL ET TA KE EX 00 08 10 2 30 30 EA 23 MC Ac FO 07 -1 -[address] 73 KE ti RG 80 9- 9- 00 SI 45 TX ve E 48 20 20 DE E [...] 3- 8- 00 SI 83 ON ve TX 04 20 20 DE N 81 11 [...] AC 40 4- 4- 00 SI 01 TX ve ET 70 20 20 DE E [...] SE 40 2- 0- 00 SI 35 TX ve TX 62 20 20 DE E DE 51 11 11 JR 0 PH 40 AR WI MA LL MG CY IA M TA OF F BL ET CY NT HI AN A NE 00 09 10 2 30 30 EA 23 MC Ac XI 18 -0 -[address] 98 KE ti UM 65 6- 0- 00 SI 46 TX ve 04 [address] [...] ti 10 7- 7- 00 SI 81 TX ve 54 20 20 0 DE E [...] RG 80 9- 4- 00 SI 45 TX ve E 48 20 20 DE E 10 91 11 11 JR -1 5 PH 60 AR WI MA LL MG CY IA M TA OF F BL ET CY NT HI AN A SI 16 05 09 3 30 30 EA 22 MC Ac MV 71 -3 -[address] 74 KE ti 40 1- 4- 00 SI 35 TX ve TA 68 20 20 DE E [...] 2- 2- 00 SI 16 ON ve TX 62 20 20 DE DE 51 11 [...] ti 10 7- 7- 00 SI 45 TX ve 54 20 20 0 DE E 00 11 11 JR 1 PH AR WI MA LL CY IA M OF F CY NT HI AN A CL 00 09 09 0 90 30 EA 23 MC Ac ON 09 -0 -[address] 98 KE ti AZ 30 6- 6- 00 SI 47 TX ve EP 83 20 20 DE E AM 20 11 11 JR 1 PH 0. AR [place] 5 MA LL MG CY IA M TA OF F BL ET CY NT HI AN A NE 00 08 08 2 30 30 EA 23 MC Ac XI 18 -3 -[address] 89 KE ti UM 65 1- 1- 00 SI 75 TX ve 04 [address] [...] A OF CY NT HI AN A AC 65 08 [...] TE CY R NT HI AN A ME 00 08 08 1 30 30 EA 23 BE Ac TF 09 -2 -[address] 77 SS ti OR 31 3- 3- 00 SI 83 ON ve TX 04 20 20 DE N [address] HC 0 PH EP L AR HE 50 MA N 0 CY A MG OF TA BL CY ET NT HI AN A EX 00 08 08 2 30 30 EA 23 MC Ac FO 07 -1 -[address] 73 KE ti RG 80 9- 9- 00 SI 45 TX ve E 48 20 20 DE E [...] 6- 6- 00 SI 13 ON ve TX 62 20 20 DE DE [address] 0 PH EP 40 AR HE MA N MG CY A TA OF BL ET CY NT HI AN A SI 16 05 08 3 30 30 EA 22 MC Ac MV 71 -3 -[address] 74 KE ti 40 1- 6- 00 SI 35 TX ve TA 68 20 20 DE E TI 40 11 11 JR N 3 PH 40 AR WI MA LL MG CY IA M TA OF F BL ET CY NT HI AN A CL 00 08 08 0 90 30 EA 23 MC Ac ON 09 -0 -[address] 54 KE ti AZ 30 5- 5- 00 SI 97 TX ve EP 83 20 20 DE E AM 20 11 11 JR 1 PH 0. AR [place] 5 MA LL MG CY IA M TA OF F BL ET CY NT HI AN A NE 00 05 08 2 30 30 EA 22 MC Ac XI 18 -2 -[address] 69 KE ti UM 65 5- 2- 00 SI 36 TX ve 04 [address] 03 11 11 JR 1 PH 40 AR [place] MA LL MG CY IA M CA OF F PS UL CY E NT HI AN A ZE 66 06 08 3 30 30 EA 23 MC Ac TI 58 -2 -[address] 05 KE ti A 20 3- 2- 00 SI 21 TX ve 10 41 20 20 DE E [...] RG 80 1- 6- 00 SI 11 TX ve E 48 20 20 DE E 10 91 11 11 JR -1 5 PH 60 AR [place] MA LL MG CY IA M TA OF F BL ET CY NT HI AN A ME 00 05 07 1 60 30 EA 22 BE Ac TF 09 -1 -[address] 56 SS ti OR 31 7- 1- 00 SI 55 ON ve TX 04 20 20 DE N [address] HC 0 PH EP L AR HE 50 MA N 0 CY A MG OF TA BL CY ET NT HI AN A LE 00 07 07 5 30 30 EA 23 BE Ac VO 37 -1 -[address] 24 SS ti TH 81 1- SI 87 ON ve YR 80 20 [...] AZ 30 5- 5- 00 SI 75 TX ve EP 83 20 20 DE E AM 20 11 11 JR 1 PH 0. AR [place] 5 MA LL MG CY IA M TA OF F BL ET CY NT HI AN A FU 63 05 07 2 30 30 EA 22 BE Ac RO 30 -0 -[address] 36 SS ti SE 40 3- 4- 00 SI 75 ON ve TX 62 20 20 DE DE [address] 0 PH EP 40 AR HE MA N MG CY A TA OF BL ET CY NT HI AN A SI 16 05 07 3 30 30 EA 22 MC Ac MV 71 -3 -[address] 74 KE ti 40 1- 2- 00 SI 35 TX ve TA 68 20 20 DE E TI 40 11 11 JR N 3 PH 40 AR WI MA LL MG CY IA M TA OF F BL ET CY NT HI AN A NE 00 05 06 2 30 30 EA 22 MC Ac XI 18 -2 -[address] 69 KE ti UM 65 5- 5- 00 SI 36 TX ve 04 [address] 03 11 11 JR 1 PH 40 AR WI MA LL MG CY IA M CA OF F PS UL CY E NT HI AN A ZE 66 06 06 3 30 30 EA 23 MC Ac TI 58 -2 -[address] 05 KE ti A 20 3- 3- 00 SI 21 TX ve 10 41 20 20 DE E 43 11 11 JR MG 1 PH AR WI TA MA LL BL CY IA ET M OF F CY NT HI AN A MU 45 06 06 1 22 3 EA 23 BE Ac PI 80 -2 -[address] 02 SS ti RO 20 1- 1- 00 SI 36 ON ve CI 11 20 20 DE N [address] 2% 2 PH EP AR HE OI MA N NT CY A ME NT OF CY NT HI AN A GALLAGHER 53 [...] TA NT BL HI ET AN A EX 00 04 06 3 30 30 EA 22 MC Ac FO 07 -1 -[address] 06 KE ti RG 80 1- 5- 00 SI 11 TX ve E 48 20 20 DE E [...] AZ 30 7- 7- 00 SI 61 TX ve EP 83 20 20 DE E AM 20 11 11 JR 1 PH 0. AR WI 5 MA LL MG CY IA M TA OF F BL ET CY NT HI AN A FU 63 05 06 2 30 30 EA 22 BE Ac RO 30 -0 -[address] 36 SS ti SE 40 3- 2- 00 SI 75 ON ve TX 62 20 20 DE DE [address] 0 PH EP 40 AR HE MA N MG CY A TA OF BL ET CY NT HI AN A SI 16 05 05 3 30 30 EA 22 MC Ac MV 71 -3 -[address] 74 KE ti 40 1- 1- 00 SI 35 TX ve TA 68 20 20 DE E TI 40 11 11 JR N 3 PH 40 AR [place] MA LL MG CY IA M TA OF F BL ET CY NT HI AN A NE 00 05 05 2 30 30 EA 22 MC Ac XI 18 -2 -[address] 69 KE ti UM 65 5- 6- 00 SI 36 TX ve 04 [address] [...] N % CY A EY E OF OP CY S NT HI AN A ME 00 05 05 1 60 30 EA 22 BE Ac TF 09 -1 -[address] 56 SS ti OR 31 7- 7- 00 SI 55 ON ve TX 04 20 20 DE N [address] HC 0 PH EP L AR HE 50 MA N 0 CY A MG OF TA BL CY ET NT HI AN A EX 00 04 05 3 30 30 EA 22 MC Ac FO 07 -1 -[address] 06 KE ti RG 80 1- 6- 00 SI 11 TX ve E 48 20 20 DE E [...] 3- 3- 00 SI 75 ON ve TX 62 20 20 DE DE 51 11 [...] A OF CY NT HI AN A SI 16 02 04 2 30 30 EA 21 MC Ac MV 71 -1 -[address] 26 KE ti 40 6- 5- 00 SI 51 TX ve TA 68 20 20 DE E TI 40 11 11 JR N 3 PH 40 AR WI MA LL MG CY IA M TA OF F BL ET CY NT HI AN A NE 00 02 04 2 30 30 EA 21 MC Ac XI 18 -2 -[address] 33 KE ti UM 65 1- 5- 00 SI 04 TX ve 04 [address] 03 11 11 JR 1 PH 40 AR [place] MA LL MG CY IA M CA OF F PS UL CY E NT HI AN A EX 00 04 04 3 30 30 EA 22 MC Ac FO 07 -1 -[address] 06 KE ti RG 80 1- 1- 00 SI 11 TX ve E 48 20 20 DE E 10 91 11 11 JR -1 5 PH 60 AR [place] MA LL MG CY IA M TA OF F BL ET CY NT HI AN A 00 04 04 0 12 30 EA 22 MC Ac 59 -1 -[address] 05 KE ti 10 0- 0- 00 SI 59 TX ve 54 20 20 0 DE E 00 11 11 JR 1 PH AR WI MA LL CY IA M OF F CY NT HI AN A CL 00 04 04 0 90 30 EA 22 MC Ac ON 09 -0 -[address] 01 KE ti AZ 30 6- 6- 00 SI 40 TX ve EP 83 20 20 DE E AM 20 11 11 JR 1 PH 0. AR [place] 5 MA LL MG CY IA M TA OF F BL ET CY NT HI AN A HY 00 04 04 2 30 30 EA [address] 59 -0 -[address] 97 KE ti OC 10 4- 4- 00 SI 70 TX ve HL 34 20 20 DE E [...] 0. ST 92 HU ti CL 40 1 SI 49 LS ve OP 06 20 20 0 DE TA RA 10 11 11 D TX 5 PH CA DE AR MP 5 MA BE CY LL MG K OF TA BL CY ET NT HI AN A NE 00 02 03 2 30 30 EA 21 MC Ac XI 18 -2 -[address] 33 KE ti UM 65 1- 2- 00 SI 04 TX ve 04 [address] 03 11 11 JR 1 PH 40 AR [place] MA LL MG CY IA M CA OF F PS UL CY E NT HI AN A SI 16 02 03 2 30 30 EA 21 MC Ac MV 71 -1 -[address] 26 KE ti 40 6- 2- 00 SI 51 TX ve TA 68 20 20 DE E [...] A OF CY NT HI AN A PA 00 01 03 2 20 5 EA 20 MC Ac OM 78 -1 -[address] 84 KE ti ET 11 7 9 SI 38 TX ve NG 83 20 20 DE E ZI 01 11 11 JR NE 0 PH AR WI 25 MA LL CY IA MG M OF F TA BL CY ET NT HI AN A EX 00 12 03 3 30 30 EA 20 MC Ac FO 07 -0 -[address] 24 KE ti RG 80 3- 9 00 SI 32 TX ve E 48 20 20 DE E 10 91 10 11 JR -1 5 PH 60 AR [place] MA LL MG CY IA M TA OF F BL ET CY NT HI AN A CL 00 03 03 0 90 30 EA 21 MC Ac ON 09 -0 -[address] 58 KE ti AZ 30 7- 7- 00 SI 91 TX ve EP 83 20 20 DE E AM 20 11 11 JR 1 PH 0. AR [place] 5 MA LL MG CY IA M TA OF F BL ET CY NT HI AN A HY 00 12 03 2 30 30 EA [address] 59 -2 -[address] 58 KE ti OC 10 9- 4- 00 SI 00 TX ve HL 34 20 20 DE E [...] ST 33 KE ti UM 65 1- 00 SI 04 TX ve 04 [address] 03 11 11 JR 1 PH 40 AR [place] MA LL MG CY IA M CA OF F PS UL CY E NT HI AN A FL 00 01 02 1 7. 7 EA 20 MC Ac UC 17 -1 -[address] 81 KE ti ON 25 5- 6- 0 SI 97 TX ve AZ 41 20 20 DE E OL 14 11 11 JR E 6 PH 10 AR WI 0 MA LL MG CY IA M TA OF F BL ET CY NT HI AN A SI 16 02 02 2 30 30 EA 21 MC Ac MV 71 -1 -[address] 26 KE ti 40 6- 6- 00 SI 51 TX ve TA 68 20 20 DE E TI 40 11 11 JR N 3 PH 40 AR WI MA LL MG CY IA M TA OF F BL ET CY NT HI AN A [place] 00 01 02 1 60 4 EA [address] 16 -1 -[address] 84 KE ti AT 80 7- 5- 00 SI 39 TX ve IN 08 20 20 DE E -T 16 11 11 JR RI 0 PH AM AR WI CI MA LL NO CY IA LO M NE OF F CR CY EA NT M HI AN A 00 02 02 0 12 30 EA 21 MC Ac 59 -1 -[address] 20 KE ti 10 1- 1- 00 SI 16 TX ve 54 20 20 0 DE E 00 11 11 JR 1 PH AR WI MA LL CY IA M OF F CY NT HI AN A CL 00 12 02 2 90 30 EA 20 MC Ac ON 09 -0 -[address] 32 KE ti AZ 30 9- 7- 00 SI 83 TX ve EP 83 20 20 DE E AM 20 10 11 JR 1 PH 0. AR [place] 5 MA LL MG CY IA M TA OF F BL ET CY NT HI AN A EX 00 12 02 3 30 30 EA 20 MC Ac FO 07 -0 -[address] 24 KE ti RG 80 3- 5- 00 SI 32 TX ve E 48 20 20 DE E 10 91 10 11 JR -1 5 PH 60 AR WI MA LL MG CY IA M TA OF F BL ET CY NT HI AN A HY 00 12 01 2 30 30 EA [address] 59 -2 -[address] 58 KE ti OC 10 9- 0- 00 SI 00 TX ve HL 34 20 20 DE E [...] UM 65 8- 0- 00 SI 05 TX ve 04 [address] 03 10 11 JR 1 PH 40 AR [place] MA LL MG CY IA M CA OF F PS UL CY E NT HI AN A PA 00 01 01 2 20 5 EA 20 MC Ac OM 78 -1 -[address] 84 KE ti ET 11 7- 7- 00 SI 38 TX ve NG 83 20 20 DE E ZI 01 11 11 JR NE 0 PH AR WI 25 MA LL CY IA MG M OF F TA BL CY ET NT HI AN A [place] 00 01 01 1 60 4 EA [address] 16 -1 -[address] 84 KE ti AT 80 7- 7- 00 SI 39 TX ve IN 08 20 20 DE E -T 16 11 11 JR RI 0 PH AM AR WI CI MA LL NO CY IA LO M NE OF F CR CY EA NT M HI AN A 00 01 01 0 30 15 EA 20 MC Ac 14 -1 -[address] 81 KE ti 31 5- 5- 00 SI 98 TX ve 47 20 20 DE E 70 11 11 JR 5 PH AR WI MA LL CY IA M OF F CY NT HI AN A SI 16 12 01 1 30 30 EA 20 MC Ac MV 71 -1 -[address] 42 KE ti 40 6- 5- 00 SI 49 TX ve TA 68 20 20 DE E TI 40 10 11 JR N 3 PH 40 AR [place] MA LL MG CY IA M TA OF F BL ET CY NT HI AN A FL 00 01 01 1 7. 7 EA 20 MC Ac UC 17 -1 -[address] 81 KE ti ON 25 5- 5- 0 SI 97 TX ve AZ 41 20 20 DE E OL 14 11 11 JR E 6 PH 10 AR WI 0 MA LL MG CY IA M TA OF F BL ET CY NT HI AN A MU 00 01 01 0 22 4 EA 20 MC Ac PI 09 -1 -[address] 81 KE ti RO 31 4- 4- 00 SI 11 TX ve CI 01 20 20 DE E [...] RO 31 0- 0- 00 SI 00 TX ve CI 01 20 20 DE E N 04 11 11 JR 2% 2 PH AR WI OI MA LL NT CY IA ME M NT OF F CY NT HI AN A GALLAGHER 53 01 01 0 20 10 EA 20 MC Ac LF 74 -1 -[address] 75 KE ti AM 60 0- 0- 00 SI 99 TX ve ET 27 20 20 DE E HO 20 11 11 JR XA 5 PH ZO AR WI LE MA LL -T CY IA MP M OF F DS CY TA NT BL HI ET AN A CL 00 12 01 2 90 30 EA 20 MC Ac ON 09 -0 -[address] 32 KE ti AZ 30 9 8 00 SI 83 TX ve EP 83 20 20 DE E AM 20 10 11 JR 1 PH 0. AR WI 5 MA LL MG CY IA M TA OF F BL ET CY NT HI AN A EX 00 12 01 3 30 30 EA 20 MC Ac FO 07 -0 -[address] 24 KE ti RG 80 3- 4- 00 SI 32 TX ve E 48 20 20 DE E 10 91 10 11 JR -1 5 PH 60 AR [place] MA LL MG CY IA M TA OF F BL ET CY NT HI AN A HY 00 12 12 2 30 30 EA [address] 59 -2 -[address] 58 KE ti OC 10 SI 00 TX ve HL 34 20 20 DE E [...] UM 65 8- 0- 00 SI 05 TX ve 04 [address] 03 10 10 JR 1 PH 40 AR WI MA LL MG CY IA M CA OF F PS UL CY E NT HI AN A SI 16 12 12 1 30 30 EA 20 MC Ac MV 71 -1 -[address] 42 KE ti 40 6- 6 SI 49 TX ve TA 68 20 20 DE E TI 40 10 10 JR N 3 PH 40 AR [place] MA LL MG CY IA M TA OF F BL ET CY NT HI AN A CL 00 12 12 2 90 30 EA 20 MC Ac ON 09 -0 -[address] 32 KE ti AZ 30 9 9 SI 83 TX ve EP 83 20 20 DE E AM 20 10 10 JR 1 PH 0. AR WI 5 MA LL MG CY IA M TA OF F BL ET CY NT HI AN A EX 00 12 12 3 30 30 EA 20 MC Ac FO 07 -0 -[address] 24 KE ti RG 80 3- 3- 00 SI 32 TX ve E 48 20 20 DE E 10 91 10 10 JR -1 5 PH 60 AR [place] MA LL MG CY IA M TA OF F BL ET CY NT HI AN A LE 00 11 11 1 30 30 EA 20 BE Ac VO 37 -2 -[address] 16 SS ti TH 81 9- 9 00 SI 83 ON ve YR 80 20 20 DE OX [address] IN 1 PH EP E AR HE 50 MA N CY A MC G OF TA BL CY ET NT HI AN A HY 00 09 11 2 30 30 EA [address] 59 -2 -[address] 23 KE ti OC 10 SI 17 TX ve HL 34 20 20 DE E OR 70 10 10 JR OT 1 PH HI AR WI [place] MA LL ID CY IA E M 12 OF F .5 CY MG NT HI CP AN A NE 00 10 11 3 30 30 EA 19 MC Ac XI 18 -1 -[address] 59 KE ti UM 65 8- 0- 00 SI 05 TX ve 04 [address] 03 10 10 JR 1 PH 40 AR [place] MA LL MG CY IA M CA OF F PS UL CY E NT HI AN A SI 16 08 11 3 30 30 EA 18 MC Ac MV 71 -0 -[address] 64 KE ti 40 9- 5- 00 SI 89 TX ve TA 68 20 20 DE E TI 40 10 10 JR N 3 PH 40 AR WI MA LL MG CY IA M TA OF F BL ET CY NT HI AN A CL 00 11 11 0 90 30 EA 19 MC Ac ON 09 -0 -[address] 88 KE ti AZ 30 8- 8 00 SI 62 TX ve EP 83 20 20 DE E AM 20 10 10 JR 1 PH 0. AR [place] 5 MA LL MG CY IA M TA OF F BL ET CY NT HI AN A EX 00 05 11 5 30 30 EA 17 MC Ac FO 07 -2 -[address] 70 KE ti RG 80 2- 3- 00 SI 24 TX ve E 48 20 20 DE E 10 91 10 10 JR -1 5 PH 60 AR [place] MA LL MG CY IA M TA OF F BL ET CY NT HI AN A HY 00 09 10 2 30 30 EA [address] 59 -2 -[address] 23 KE ti OC 10 - 3 SI 17 TX ve HL 34 20 20 DE E [...] TH 81 8- 3- 00 SI 58 TX ve YR 80 20 20 DE E OX 30 10 10 JR IN 1 PH E AR WI 50 MA LL CY IA MC M G OF F TA BL CY ET NT HI AN A NE 00 10 10 3 30 30 EA 19 MC Ac XI 18 -1 -[address] 59 KE ti UM 65 8- 8- 00 SI 05 TX ve 04 [address] 03 10 10 JR 1 PH 40 AR [place] MA LL MG CY IA M CA OF F PS UL CY E NT HI AN A SI 16 08 10 3 30 30 EA 18 MC Ac MV 71 -0 -[address] 64 KE ti 40 9- 5- 00 SI 89 TX ve TA 68 20 20 DE E TI 40 10 10 JR N 3 PH 40 AR WI MA LL MG CY IA M TA OF F BL ET CY NT HI AN A 00 10 10 0 12 30 EA 19 Ac 59 -1 -[address] 53 KE ti 10 3 3- 00 SI 11 TX ve 54 20 20 0 DE E 00 10 10 JR 1 PH AR WI MA LL CY IA M OF F CY NT HI AN A CL 00 10 10 0 90 30 EA 19 Ac ON 09 -0 -[address] 46 KE ti AZ 30 8 8 00 SI 44 TX ve EP 83 20 20 DE E AM 20 10 10 JR 1 PH 0. AR WI 5 MA LL MG CY IA M TA OF F BL ET CY NT HI AN A EX 00 05 10 5 30 30 EA 17 MC Ac FO 07 -2 -[address] 70 KE ti RG 80 2- 2- 00 SI 24 TX ve E 48 20 20 DE E 10 91 10 10 JR -1 5 PH 60 AR [place] MA LL MG CY IA M TA OF F BL ET CY NT HI AN A GALLAGHER 53 09 09 0 20 10 EA 19 MC Ac LF 74 -2 -[address] 28 KE ti AM 60 4- 4- 00 SI 32 TX ve ET 27 20 20 DE E [...] TH 81 8- 1- 00 SI 58 TX ve YR 80 20 20 DE E OX 30 10 10 JR IN 1 PH E AR WI 50 MA LL CY IA MC M G OF F TA BL CY ET NT HI AN A HY 00 09 09 2 30 30 EA [address] 59 -2 -[address] 23 KE ti OC 10 1- 1- 00 SI 17 TX ve HL 34 20 20 DE E OR 70 10 10 JR OT 1 PH HI AR WI [place] MA LL ID CY IA E M 12 OF F .5 CY MG NT HI CP AN A SI 16 08 09 3 30 30 EA 18 MC Ac MV 71 -0 -[address] 64 KE ti 40 9- 4- 00 SI 89 TX ve TA 68 20 20 DE E TI 40 10 10 JR N 3 PH 40 AR [place] MA LL MG CY IA M TA OF F BL ET CY NT HI AN A 00 09 09 0 12 30 EA 19 MC Ac 59 -1 -[address] 10 KE ti 10 3- 3- 00 SI 99 TX ve 54 20 20 0 DE E 00 10 10 JR 1 PH AR WI MA LL CY IA M OF F CY NT HI AN A CL 00 09 09 0 90 30 EA 19 MC Ac ON 09 -0 -[address] 04 KE ti AZ 30 8- 8- 00 SI 54 TX ve EP 83 20 20 DE E AM 20 10 10 JR 1 PH 0. AR [place] 5 MA LL MG CY IA M TA OF F BL ET CY NT HI AN A EX 00 05 09 5 30 30 EA 17 MC Ac FO 07 -2 -[address] 70 KE ti RG 80 2- 1- 00 SI 24 TX ve E 48 20 20 DE E [...] OC 10 7- 8- 00 SI 77 TX ve HL 34 20 20 DE E [...] TH 81 8- 8- 00 SI 58 TX ve YR 80 20 20 DE E OX 30 10 10 JR IN 1 PH E AR WI 50 MA LL CY IA MC M G OF F TA BL CY ET NT HI AN A 00 08 08 0 12 30 EA 18 MC Ac 59 -1 -[address] 71 KE ti 10 4 4 00 SI 12 TX ve 54 20 20 0 DE E 00 10 10 JR 1 PH AR WI MA LL CY IA M OF F CY NT HI AN A SI 16 08 08 3 30 30 EA 18 MC Ac MV 71 -0 -[address] 64 KE ti 40 9 9 SI 89 TX ve TA 68 20 20 DE E TI 40 10 10 JR N 3 PH 40 AR [place] MA LL MG CY IA M TA OF F BL ET CY NT HI AN A CL 00 08 08 0 90 30 EA 18 MC Ac ON 09 -0 -[address] 64 KE ti AZ 30 SI 45 TX ve EP 83 20 20 DE E AM 20 10 10 JR 1 PH 0. AR WI 5 MA LL MG CY IA M TA OF F BL ET CY NT HI AN A NE 00 08 08 3 60 30 EA 18 MC Ac XI 18 -0 -[address] 64 KE ti UM 65 9 9 00 SI 88 TX ve 04 [address] 03 10 10 JR 1 PH 40 AR [place] MA LL MG CY IA M CA OF F PS UL CY E NT HI AN A EX 00 05 07 5 30 30 EA 17 MC Ac FO 07 -2 -[address] 70 KE ti RG 80 2 8- 00 SI 24 TX ve E 48 20 20 DE E 10 91 10 10 JR -1 5 PH 60 AR [place] MA LL MG CY IA M TA OF F BL ET CY NT HI AN A LE 00 04 07 3 30 30 EA 17 MC Ac VO 37 -0 -[address] 10 KE ti TH 81 7- 0- 00 SI 12 TX ve YR 80 20 20 DE E OX 30 10 10 JR IN 1 PH E AR [place] 50 MA LL CY IA MC M G OF F TA BL CY ET NT HI AN A HY 00 05 07 3 30 30 EA [address] 59 -0 -[address] 50 KE ti OC 10 7- 0- 00 SI 77 TX ve HL 34 20 20 DE E [...] AZ 30 8- 8- 00 SI 89 TX ve EP 83 20 20 DE E AM 20 10 10 JR 1 PH 0. AR WI 5 MA LL MG CY IA M TA OF F BL ET CY NT HI AN A CE 00 07 07 0 21 7 EA 18 AL Ac PH 09 -0 -[address] 26 LR ti AL 33 8- 8 SI 99 AN ve EX 14 20 20 DE IN 70 10 10 JR 5 PH 50 AR CH 0 MA AR MG CY LE S CA OF F PS UL CY E NT HI AN A SI 16 02 07 4 30 30 EA 16 MC Ac MV 72 -1 -[address] 35 KE ti 90 2 3 SI 46 TX ve TA 00 20 20 DE E TI 61 10 10 JR N 7 PH 40 AR [place] MA LL MG CY IA M TA OF F BL ET CY NT HI AN A NE 00 03 07 3 30 30 EA 16 MC Ac XI 18 -1 -[address] 82 KE ti UM 65 7- 3 SI 12 TX ve 04 [address] 03 10 10 JR 1 PH 40 AR [place] MA LL MG CY IA M CA OF F PS UL CY E NT HI AN A EX 00 05 06 5 30 30 EA 17 MC Ac FO 07 -2 -[address] 70 KE ti RG 80 2- 7- 00 SI 24 TX ve E 48 20 20 DE E 10 91 10 10 JR -1 5 PH 60 AR [place] MA LL MG CY IA M TA OF F BL ET CY NT HI AN A 00 06 06 0 12 30 EA 17 MC Ac 59 -1 -[address] 97 KE ti 10 4- 4- 00 SI 41 TX ve 54 20 20 0 DE E 00 10 10 JR 1 PH AR WI MA LL CY IA M OF F CY NT HI AN A LE 00 04 06 3 30 30 EA 17 MC Ac VO 37 -0 -[address] 10 KE ti TH 81 7- 1- 00 SI 12 TX ve YR 80 20 20 DE E OX 30 10 10 JR IN 1 PH E [place] 50 MA LL CY IA MC M G OF F TA BL CY ET NT HI AN A HY 00 05 06 3 30 30 EA [address] [facility] [address] 59 -0 -[address] 50 KE ti OC 10 7 SI 77 TX ve HL 34 20 20 DE E [...] 06 06 0 90 30 EA 17 [facility] ON 09 -0 -[address] 87 KE ti AZ 30 SI 85 TX ve EP 83 20 20 DE E AM 20 10 10 JR 1 PH 0. [place] 5 MA LL MG CY IA M TA OF F BL ET CY NT HI AN A SI 65 02 05 3 30 30 EA 16 [facility] MV 86 -1 -[address] 35 KE ti 20 SI 46 TX ve TA 05 20 20 DE E TI 33 10 10 JR N 0 PH 40 AR [place] MA LL MG CY IA M TA OF F BL ET CY NT HI AN A NE 00 03 05 3 30 30 EA 16 [facility] XI 18 -1 -[address] 82 KE ti UM 65 SI 12 TX ve 04 [address] 03 10 10 JR 1 PH 40 AR [place] MA LL MG CY IA M CA OF F PS UL CY E NT HI AN A EX 00 05 05 5 30 30 EA 17 Ac FO 07 -2 -[address] 70 KE ti RG 80 2- 2 00 SI 24 TX ve E 48 20 20 DE E 10 91 10 10 JR -1 5 PH 60 AR [place] MA LL MG CY IA M TA OF F BL ET CY NT HI AN A 00 05 05 0 12 30 EA 17 Ac 59 -1 -[address] 61 KE ti 10 SI 05 TX ve 54 20 20 0 DE E 00 10 10 JR 1 PH AR [place] MA LL CY IA M OF F CY NT HI AN A HY 00 05 05 3 [address] 59 -0 -[address] 50 KE ti OC 10 7- 7- 00 SI 77 TX ve HL 34 20 20 DE E OR 70 10 10 JR OT 1 PH HI AR [place] MA LL ID CY IA E M 12 OF F .5 CY MG NT HI CP AN A LE 00 04 05 3 30 30 EA 17 MC Ac VO 37 -0 -[address] 10 KE ti TH 81 7- 7- 00 SI 12 TX ve YR 80 20 20 DE E OX 30 10 10 JR IN 1 PH E [place] 50 MA LL CY IA MC M G OF F TA BL CY ET NT HI AN A CL 00 05 05 0 90 30 EA 17 MC Ac ON 09 -0 -[address] 48 KE ti AZ 30 6 6 00 SI 98 TX ve EP 83 20 20 DE E AM 20 10 10 JR 1 PH 0. AR WI 5 MA LL MG CY IA M TA OF F BL ET CY NT HI AN A SI 65 02 04 3 30 30 EA 16 MC Ac MV 86 -1 -[address] 35 KE ti 20 2- 3- 00 SI 46 TX ve TA 05 20 20 DE E TI 33 10 10 JR N 0 PH 40 AR WI MA LL MG CY IA M TA OF F BL ET CY NT HI AN A NE 00 03 04 3 30 30 EA 16 MC Ac XI 18 -1 -[address] 82 KE ti UM 65 7 3 00 SI 12 TX ve 04 [address] 03 10 10 JR 1 PH 40 [place] MA LL MG CY IA M CA OF F PS UL CY E NT HI AN A 00 04 04 0 12 30 EA 17 MC Ac 59 -1 -[address] 20 KE ti 10 5- 5- SI 16 TX ve 54 20 20 0 DE E 00 10 10 JR 1 PH AR [place] MA LL CY IA M OF F CY NT HI AN A CL 00 04 04 0 60 30 EA 17 MC Ac ON 09 -[address] 20 KE ti AZ 30 5- 5- 00 SI 17 TX ve EP 83 20 20 DE E AM 20 10 10 JR 1 PH 0. [place] 5 MA LL MG CY IA M TA OF F BL ET CY NT HI AN A HY 00 01 04 3 30 30 EA [address] 59 -0 -[address] 81 KE ti OC 10 4- 7- 00 SI 52 TX ve HL 34 20 20 DE E OR 70 10 10 JR OT 1 PH HI AR [place] MA LL ID CY IA E M 12 OF F .5 CY MG NT HI CP AN A LE 00 04 04 3 30 30 EA 17 MC Ac VO 37 -0 -[address] 10 KE ti TH 81 7 SI 12 TX ve YR 80 20 20 DE E OX 30 10 10 JR IN 1 PH E [place] 50 MA LL CY IA MC M G OF F TA BL CY ET NT HI AN A 00 03 03 0 12 30 EA 16 MC Ac 59 -1 -[address] 81 KE ti 10 SI 83 TX ve 54 20 20 0 DE E 00 10 10 JR 1 PH AR WI MA LL CY IA M OF F CY NT HI AN A NE 00 03 03 3 30 30 EA 16 MC Ac XI 18 -1 -[address] 82 KE ti UM 65 SI 12 TX ve 04 [address] 03 10 10 JR 1 PH 40 AR [place] MA LL MG CY IA M CA OF F PS UL CY E NT HI AN A CL 00 03 03 0 60 30 EA 16 MC Ac ON -[address] 81 KE ti AZ 30 SI 84 TX ve EP 83 20 20 DE E AM 20 10 10 JR 1 PH 0. [place] 5 MA LL MG CY IA M TA OF F BL ET CY NT HI AN A SI 65 02 03 3 30 30 EA 16 MC Ac MV 86 -1 -[address] 35 KE ti 20 SI 46 TX ve TA 05 20 20 DE E TI 33 10 10 JR N 0 PH 40 AR [place] MA LL MG CY IA M TA OF F BL ET CY NT HI AN A HY 00 01 03 3 30 30 EA [address] 59 -0 -[address] 81 KE ti OC 10 SI 52 TX ve HL 34 20 20 DE E OR 70 10 10 JR OT 1 PH HI AR [place] MA LL ID CY IA E M 12 OF F .5 CY MG NT HI CP AN A LE 00 12 03 3 30 30 EA 15 MC Ac VO 37 -0 -[address] 38 KE ti TH 81 2 SI 79 TX ve YR 80 20 20 DE E OX 30 09 10 JR IN 1 PH E [place] 50 MA LL CY IA MC M G OF F TA BL CY ET NT HI AN A Vital Signs 03-06-2013 19:06 Name Value Interpretat [...] Order Detail nces retati t Range on Lipase measurement (11-02-2017 13:35) Lipase = 103 73-393 complet measure 017 U/L ed ment 13:35 Comprehensive metabolic panel (11-02-2017 13:35) Protein = 7.1 6.4-8.2 complet total 017 gm/dL ed ser/daily 13:35 s ALT = 27 12-78 complet (SGPT) 017 U/L ed ser/daily 13:35 s Serum = 17 15-37 complet or 017 U/L ed plasma 13:35 asparta te aminotr ansfera Serum = 142 136-145 complet sodium 017 mmoL/L ed measure 13:35 ment Serum = 3.7 3.5-5.1 complet [place] 017 mmoL/L ed um 13:35 measure ment Serum = 112 74-106 complet or 017 mg/dL ed plasma 13:35 glucose measure ment (mas Serum = 3.0 1.3-3.2 complet globuli 017 gm/dL ed n 13:35 measure ment (mass/v olume) Estimat = 61 >60 complet ed 017 ML/MIN ed glomeru 13:35 lar filtrat ion rate (GF Comment: REFERENCE RANGE: >60 ML/MIN/1.73 SQUARE METERS Comment: If this patient is -Citizen Of [place], then multiply the Comment: result by 1.210. Serum 2 = 1.2 0.70-1. complet or 017 mg/dL 30 ed plasma 13:35 creatin ine measure ment ( Carbon = 28 21.0-32 complet dioxide 017 mmoL/L .0 ed 13:35 measure ment Serum = 104 98-107 complet or 017 mmoL/L ed plasma 13:35 chlorid e measure ment (mo Serum = 9.3 8.5-10. complet or 017 mg/dL 1 ed plasma 13:35 calcium measure ment (mas Serum = 20 7-18 complet or 017 mg/dL ed plasma 13:35 urea nitroge n measure men Serum = 0.4 0.2-1.0 complet or 017 mg/dL ed plasma 13:35 total bilirub in measure m Serum = 129 46-116 complet or 017 U/L ed plasma 13:35 alkalin e phospha tase [place] Serum = 4.1 3.4-5.0 complet or 017 gm/dL ed plasma 13:35 albumin measure ment (mas Serum = 1.4 1.1-1.8 complet or 017 ed plasma 13:35 albumin /globul in mass ra Amylase ser/plas (11-02-2017 13:35) Amylase = 42 25-115 complet 017 U/L ed ser/daily 13:35 s CBC w auto diff (11-02-2017 13:35) Blood = 13.0 14.1-18 complet hemoglo 017 g/dL .0 ed bin 13:35 measure ment (mass/v olum Blood = 38.8 42.0-52 complet hematoc 017 % .0 ed rit 13:35 (volume fractio n) Granulo = 52.5 37.0-80 complet cyte 017 % .0 ed percent 13:35 age Blood = 2.9 1.3-8.0 complet granulo 017 K/mm3 ed cytes 13:35 automat ed count (numb Automat = 2.2 % 0.1-12. complet ed 017 0 ed blood 13:35 eosinop hils/10 0 leukocy t Automat = 0.1 0.0-0.4 complet ed 017 K/mm3 ed blood 13:35 eosinop hil count Baso % = 1.3 % 0.1-2.0 complet 017 ed 13:35 Automat = 0.1 0-0.2 complet ed 017 K/MM3 ed blood 13:35 basophi l count (count/ vo Blood = 5.5 4.8-10. complet leukocy 017 K/MM3 8 ed dez 13:35 count (number /volume ) Automat = 12.9 11.5-17 complet ed 017 % .5 ed erythro 13:35 cyte distrib ution width Red = 4.52 4.6-6.2 complet blood 017 M/mm3 ed cell 13:35 count Blood = 233 142-424 complet platele 017 K/mm3 ed t count 13:35 Automat = 7.5 7.4-10. complet ed 017 fl 4 ed blood 13:35 platele t mean volume [place] % = 6.6 % 1.7-9.3 complet 017 ed 13:35 Absolut = 0.4 0.1-1.0 complet e 017 K/mm3 ed monocyt 13:35 e count Automat = 85.7 82.2-97 complet ed 017 fl .8 ed erythro 13:35 cyte mean corpusc ular v Automat = 33.6 31.8-35 complet ed 017 g/dl .4 ed erythro 13:35 cyte mean corpusc ular h Mean = 28.8 27-31.2 complet corpusc 017 pg ed ular 13:35 hemoglo bin ([facility]) determ Lymphoc = 37.4 10-50 complet yte 017 % ed count, 13:35 blood, automat ed Absolut = 2.1 0.7-4.5 complet e 017 K/mm3 ed lymphoc 13:35 yte count Urinalysis with microscopy (11-02-2017 13:35) Urine = NONE O complet leukocy 017 wbc/hpf ed dez 13:35 count (number /volume ) Urine 0.2 0.2 NEG complet urobili 017 L ed nogen 13:35 E.U./dL detecti on by test str [place] OCC OCC OCC complet s 017 L ed epithel 13:35 #/hpf ial cells detecti on in u Urine = 1.010 1.005-1 complet specifi 017 .030 ed c 13:35 gravity measure ment Erythro NONE 0 complet cytes 017 NONE L ed detecti 13:35 rbc/hpf on in urine sedimen t Urine = NEG complet protein 017 NEGATIV ed 13:35 E mg/dL measure ment by automat ed t Urine = 5.5 5.0-8.5 complet pH 017 ed 13:35 Urine NEGATIV NEG complet nitrite 017 E ed 13:35 NEGATIV detecti E L on by test strip Mucus NEGATIV NEG complet detecti 017 E ed on in 13:35 NEGATIV urine E L sedimen t by lig Urine NEGATIV NEG complet ketones 017 E ed 13:35 NEGATIV detecti E L on by mg/dL automat ed dez Glucose = NEG complet ur 017 NEGATIV ed test 13:35 E strip Urine YELLOW YELLOW complet color 017 YELLOW ed 13:35 L Urine NEGATIV NEG complet blood 017 E ed detecti 13:35 NEGATIV on E L Urine NEGATIV NEG complet total 017 E ed bilirub 13:35 NEGATIV in E L detecti on by test Bacteri TRACE O complet a 017 TRACE L ed detecti 13:35 on in urine sedimen t by Urine CLEAR CLEAR complet appeara 017 CLEAR L ed nce 13:35 determi nation Serum or plasma urea nitrogen measuremen (09-27-2017 12:38) Serum = 14 7-18 complet or 017 mg/dL ed plasma 12:38 urea nitroge n measure men CREATININE (09-27-2017 12:38) Estimat = 56 >60 complet ed 017 ML/MIN ed glomeru 12:38 lar filtrat ion rate (GF Comment: REFERENCE RANGE: >60 ML/MIN/1.73 SQUARE METERS Comment: If this patient is -Citizen Of [place], then multiply the Comment: result by 1.210. Serum = 1.3 0.70-1. complet or 017 mg/dL 30 ed plasma 12:38 creatin ine measure ment ( URINALYSIS/COMPLETE (01-25-2013 19:30) URINE YELLOW YELLOW complet [...] % 10-50 complet 013 ed 19:00 Monocyt 01-25-2 6.5 % 1.7-9.3 complet es Fr 013 ed Bld 19:00 Auto Eosinop 2.6 % 0.1-12. complet hil Fr 013 0 ed Bld 19:00 Auto Basophi 2 0.6 % 0.1-2.0 complet ls Fr 013 ed Bld 19:00 Auto Granulo 02-28-2 3.0 1.3-8.0 complet cytes # 013 K/mm3 ed Bld 19:00 Auto Lymphoc 1.8 0.7-4.5 complet ytes Fr 013 K/mm3 ed Bld 19:00 Auto Monocyt 0.4 0.1-1.0 complet es # 013 K/mm3 ed Bld 19:00 Auto Eosinop 0.1 0.0-0.4 complet hil # 013 K/mm3 ed Bld 19:00 Auto Basophi 0.0 0-0.2 complet ls # 013 K/MM3 ed Bld 19:00 Auto Encounters Encounter Start End Date Code Location Performer Type Date Emergency SERGIO BRADFORD MD (ER) 3 15:33 3 19:06 [facility] SERGIO Daley (ER) 3 18:40 3 21:51 [facility]
--- OUTSIDE RECORDS SUMMARY | 2017-11-21 02:32 | External Medical Summary Rpt | CCD ---
Author Author , LUIS EDUARDO HOFF Address Unknown Phone [email or web address] ([email or web address]) Care Team Providers Care Health Systems Analyst Name Role Phone [facility], [facility], [facility] Purpose Continuity of Care Document - 02-02-2010 through 2016 Problems Code Diagnosis DOS Provider Status 441.4 441.4 ABDOM 01-25-2013 [facility] 558.9 558.9 01-25-2013 [facility] IT NEC I20.0 UNSTABLE ANGINA I71.4 ABDOMINAL [...] RT 40 9- 9- 00 SI 16 DE ve AN 22 20 20 0 DE [...] PE 40 4- 4- 00 SI 87 DE ve NT 66 20 20 0 DE E IN 20 13 13 JR 1 PH 30 AR WI 0 MA LL MG CY IA M CA OF F PS UL CY E NT HI AN A SI 16 11 11 0 30 30 EA 33 MC Ac MV 71 -1 -[address] 61 KE ti 40 2- 2- 00 SI 39 DE ve TA 68 20 20 0 DE E TI 40 13 13 JR N 3 PH 40 AR WI MA LL MG CY IA M TA OF F BL ET CY NT HI AN A LO 16 06 11 4 15 15 EA 31 MC Ac SA 71 -1 -[address] 99 KE ti RT 40 0- 2- 00 SI 99 DE ve AN 22 20 20 0 DE [...] RA 50 4- 1- 00 SI 09 DE ve ZO 13 20 20 0 DE E LE 63 13 [address] AR WI MA LL 40 CY IA M MG OF F CA CY PS NT UL HI E AN A ME 00 08 11 3 30 30 EA 32 Ac TF 09 -0 -[address] 52 KE ti OR 31 2- 9- 00 SI 59 DE ve DE 04 20 20 0 DE E N 81 13 13 JR HC 0 PH L AR WI 50 MA LL 0 CY IA MG M OF F TA BL CY ET NT HI AN A FU 63 08 11 2 30 30 EA 32 Ac RO 30 -2 -[address] 80 KE ti SE 40 9- 5- 00 SI 32 DE ve DE 62 20 20 0 DE E DE 51 13 13 JR 0 PH 40 AR WI MA LL MG CY IA M TA OF F BL ET CY NT HI AN A CL 00 10 11 0 45 15 EA 33 Ac ON 22 -1 -[address] 31 KE ti AZ 83 4- 2- 00 SI 89 DE ve EP 00 20 20 0 DE E AM 45 13 13 JR 1 0 PH AR WI MG MA LL CY IA TA M BL OF F ET CY NT HI AN A LE 00 07 11 3 30 30 EA 32 MC Ac VO 37 -2 -[address] 46 KE ti TH 81 6- 2- 00 SI 48 DE ve YR 80 20 20 0 DE [...] RT 40 0- 5- 00 SI 99 DE ve AN 22 20 20 0 DE [...] AZ 83 4- 4- 00 SI 89 DE ve EP 00 20 20 0 DE E AM 45 13 13 JR 1 0 PH AR WI MG MA LL CY IA TA M BL OF F ET CY NT HI AN A SI 16 08 10 2 30 30 EA 32 MC Ac MV 71 -0 -[address] 57 KE ti 40 7- 2- 00 SI 30 DE ve TA 68 20 20 0 DE E TI 40 13 13 JR N 3 PH 40 AR WI MA LL MG CY IA M TA OF F BL ET CY NT HI AN A OM 62 09 10 2 30 30 EA 32 MC Ac EP 17 -0 -[address] 86 KE ti RA 50 4- 9- 00 SI 09 DE ve ZO 13 20 20 0 DE E LE 63 13 [address] AR WI MA LL 40 CY IA M MG OF F CA CY PS NT UL HI E AN A ME 00 08 10 3 30 30 EA 32 MC Ac TF 09 -0 -[address] 52 KE ti OR 31 2- 7- 00 SI 59 DE ve DE 04 20 20 0 DE E N 81 13 13 JR HC 0 PH L AR WI 50 MA LL 0 CY IA MG M OF F TA BL CY ET NT HI AN A FU 63 08 10 2 30 30 EA 32 MC Ac RO 30 -2 -[address] 80 KE ti SE 40 9- 3- 00 SI 32 DE ve DE 62 20 20 0 DE E DE [...] ti 4 ve MG /2 ML AL NC 51 02 0 No OM 07 -2 ET 90 8- Lo NG 89 20 ng ZI 52 13 er NE 0H Ac 25 ti MG ve TA BL ET TA KE EX 00 08 10 2 30 30 EA 23 MC Ac FO 07 -1 -[address] 73 KE ti RG 80 9- 9- 00 SI 45 DE ve E 48 20 20 DE E [...] 3- 8- 00 SI 83 ON ve DE 04 20 20 DE N 81 11 [...] AC 40 4- 4- 00 SI 01 DE ve ET 70 20 20 DE E [...] SE 40 2- 0- 00 SI 35 DE ve DE 62 20 20 DE E DE 51 11 11 JR 0 PH 40 AR WI MA LL MG CY IA M TA OF F BL ET CY NT HI AN A NE 00 09 10 2 30 30 EA 23 MC Ac XI 18 -0 -[address] 98 KE ti UM 65 6- 0- 00 SI 46 DE ve 04 [address] [...] ti 10 7- 7- 00 SI 81 DE ve 54 20 20 0 DE E [...] RG 80 9- 4- 00 SI 45 DE ve E 48 20 20 DE E 10 91 11 11 JR -1 5 PH 60 AR WI MA LL MG CY IA M TA OF F BL ET CY NT HI AN A SI 16 05 09 3 30 30 EA 22 MC Ac MV 71 -3 -[address] 74 KE ti 40 1- 4- 00 SI 35 DE ve TA 68 20 20 DE E [...] 2- 2- 00 SI 16 ON ve DE 62 20 20 DE DE 51 11 [...] ti 10 7- 7- 00 SI 45 DE ve 54 20 20 0 DE E 00 11 11 JR 1 PH AR WI MA LL CY IA M OF F CY NT HI AN A CL 00 09 09 0 90 30 EA 23 MC Ac ON 09 -0 -[address] 98 KE ti AZ 30 6- 6- 00 SI 47 DE ve EP 83 20 20 DE E AM 20 11 11 JR 1 PH 0. AR [place] 5 MA LL MG CY IA M TA OF F BL ET CY NT HI AN A NE 00 08 08 2 30 30 EA 23 MC Ac XI 18 -3 -[address] 89 KE ti UM 65 1- 1- 00 SI 75 DE ve 04 [address] [...] 3- 3- 00 SI 83 ON ve DE 04 20 20 DE N [address] HC 0 PH EP L AR HE 50 MA N 0 CY A MG OF TA BL CY ET NT HI AN A EX 00 08 08 2 30 30 EA 23 MC Ac FO 07 -1 -[address] 73 KE ti RG 80 9- 9- 00 SI 45 DE ve E 48 20 20 DE E [...] 6- 6- 00 SI 13 ON ve DE 62 20 20 DE DE [address] 0 PH EP 40 AR HE MA N MG CY A TA OF BL ET CY NT HI AN A SI 16 05 08 3 30 30 EA 22 MC Ac MV 71 -3 -[address] 74 KE ti 40 1- 6- 00 SI 35 DE ve TA 68 20 20 DE E TI 40 11 11 JR N 3 PH 40 AR WI MA LL MG CY IA M TA OF F BL ET CY NT HI AN A CL 00 08 08 0 90 30 EA 23 MC Ac ON 09 -0 -[address] 54 KE ti AZ 30 5- 5- 00 SI 97 DE ve EP 83 20 20 DE E AM 20 11 11 JR 1 PH 0. AR [place] 5 MA LL MG CY IA M TA OF F BL ET CY NT HI AN A NE 00 05 08 2 30 30 EA 22 MC Ac XI 18 -2 -[address] 69 KE ti UM 65 5- 2- 00 SI 36 DE ve 04 [address] 03 11 11 JR 1 PH 40 AR WI MA LL MG CY IA M CA OF F PS UL CY E NT HI AN A ZE 66 06 08 3 30 30 EA 23 MC Ac TI 58 -2 -[address] 05 KE ti A 20 3- 2- 00 SI 21 DE ve 10 41 20 20 DE E [...] RG 80 1- 6- 00 SI 11 DE ve E 48 20 20 DE E 10 91 11 11 JR -1 5 PH 60 AR WI MA LL MG CY IA M TA OF F BL ET CY NT HI AN A ME 00 05 07 1 60 30 EA 22 BE Ac TF 09 -1 -[address] 56 SS ti OR 31 7- 1- 00 SI 55 ON ve DE 04 20 20 DE N 81 11 [...] AZ 30 5- 5- 00 SI 75 DE ve EP 83 20 20 DE E AM 20 11 11 JR 1 PH 0. AR WI 5 MA LL MG CY IA M TA OF F BL ET CY NT HI AN A FU 63 05 07 2 30 30 EA 22 BE Ac RO 30 -0 -[address] 36 SS ti SE 40 3- 4- 00 SI 75 ON ve DE 62 20 20 DE DE [address] 0 PH EP 40 AR HE MA N MG CY A TA OF BL ET CY NT HI AN A SI 16 05 07 3 30 30 EA 22 MC Ac MV 71 -3 -[address] 74 KE ti 40 1- 2- 00 SI 35 DE ve TA 68 20 20 DE E TI 40 11 11 JR N 3 PH 40 AR WI MA LL MG CY IA M TA OF F BL ET CY NT HI AN A NE 00 05 06 2 30 30 EA 22 MC Ac XI 18 -2 -[address] 69 KE ti UM 65 5- 5- 00 SI 36 DE ve 04 [address] 03 11 11 JR 1 PH 40 AR WI MA LL MG CY IA M CA OF F PS UL CY E NT HI AN A ZE 66 06 06 3 30 30 EA 23 MC Ac TI 58 -2 -[address] 05 KE ti A 20 3- 3- 00 SI 21 DE ve 10 41 20 20 DE E [...] RG 80 1- 5- 00 SI 11 DE ve E 48 20 20 DE E [...] AZ 30 7- 7- 00 SI 61 DE ve EP 83 20 20 DE E AM 20 11 11 JR 1 PH 0. AR WI 5 MA LL MG CY IA M TA OF F BL ET CY NT HI AN A FU 63 05 06 2 30 30 EA 22 BE Ac RO 30 -0 -[address] 36 SS ti SE 40 3- 2- 00 SI 75 ON ve DE 62 20 20 DE DE [address] 0 PH EP 40 AR HE MA N MG CY A TA OF BL ET CY NT HI AN A SI 16 05 05 3 30 30 EA 22 MC Ac MV 71 -3 -[address] 74 KE ti 40 1- 1- 00 SI 35 DE ve TA 68 20 20 DE E TI 40 11 11 JR N 3 PH 40 AR WI MA LL MG CY IA M TA OF F BL ET CY NT HI AN A NE 00 05 05 2 30 30 EA 22 MC Ac XI 18 -2 -[address] 69 KE ti UM 65 5- 6- 00 SI 36 DE ve 04 [address] [...] 7- 7- 00 SI 55 ON ve DE 04 20 20 DE N [address] HC 0 PH EP L AR HE 50 MA N 0 CY A MG OF TA BL CY ET NT HI AN A EX 00 04 05 3 30 30 EA 22 MC Ac FO 07 -1 -[address] 06 KE ti RG 80 1- 6- 00 SI 11 DE ve E 48 20 20 DE E [...] 3- 3- 00 SI 75 ON ve DE 62 20 20 DE DE 51 11 [...] ti 40 6- 5- 00 SI 51 DE ve TA 68 20 20 DE E TI 40 11 11 JR N 3 PH 40 AR WI MA LL MG CY IA M TA OF F BL ET CY NT HI AN A NE 00 02 04 2 30 30 EA 21 MC Ac XI 18 -2 -[address] 33 KE ti UM 65 1- 5- 00 SI 04 DE ve 04 [address] 03 11 11 JR 1 PH 40 AR WI MA LL MG CY IA M CA OF F PS UL CY E NT HI AN A EX 00 04 04 3 30 30 EA 22 MC Ac FO 07 -1 -[address] 06 KE ti RG 80 1- 1- 00 SI 11 DE ve E 48 20 20 DE E 10 91 11 11 JR -1 5 PH 60 AR WI MA LL MG CY IA M TA OF F BL ET CY NT HI AN A 00 04 04 0 12 30 EA 22 MC Ac 59 -1 -[address] 05 KE ti 10 0- 0- 00 SI 59 DE ve 54 20 20 0 DE E 00 11 11 JR 1 PH AR WI MA LL CY IA M OF F CY NT HI AN A CL 00 04 04 0 90 30 EA 22 MC Ac ON 09 -0 -[address] 01 KE ti AZ 30 6- 6- 00 SI 40 DE ve EP 83 20 20 DE E AM 20 11 11 JR 1 PH 0. AR [place] 5 MA LL MG CY IA M TA OF F BL ET CY NT HI AN A HY 00 04 04 2 30 30 EA [address] 59 -0 -[address] 97 KE ti OC 10 4- 4- 00 SI 70 DE ve HL 34 20 20 DE E [...] DE TA RA 10 11 11 D DE 5 PH CA DE AR MP 5 MA BE CY LL MG K OF TA BL CY ET NT HI AN A NE 00 02 03 2 30 30 EA 21 MC Ac XI 18 -2 -[address] 33 KE ti UM 65 1- 2- 00 SI 04 DE ve 04 [address] 03 11 11 JR 1 PH 40 AR WI MA LL MG CY IA M CA OF F PS UL CY E NT HI AN A SI 16 02 03 2 30 30 EA 21 MC Ac MV 71 -1 -[address] 26 KE ti 40 6- 2- 00 SI 51 DE ve TA 68 20 20 DE E [...] A OF CY NT HI AN A NC 00 01 03 2 20 5 EA 20 MC Ac OM 78 -1 -[address] 84 KE ti ET 11 7 9 SI 38 DE ve NG 83 20 20 DE E ZI 01 11 11 JR NE 0 PH AR WI 25 MA LL CY IA MG M OF F TA BL CY ET NT HI AN A EX 00 12 03 3 30 30 EA 20 MC Ac FO 07 -0 -[address] 24 KE ti RG 80 3- 9 00 SI 32 DE ve E 48 20 20 DE E 10 91 10 11 JR -1 5 PH 60 AR WI MA LL MG CY IA M TA OF F BL ET CY NT HI AN A CL 00 03 03 0 90 30 EA 21 MC Ac ON 09 -0 -[address] 58 KE ti AZ 30 7- 7- 00 SI 91 DE ve EP 83 20 20 DE E AM 20 11 11 JR 1 PH 0. AR WI 5 MA LL MG CY IA M TA OF F BL ET CY NT HI AN A HY 00 12 03 2 30 30 EA [address] 59 -2 -[address] 58 KE ti OC 10 9- 4- 00 SI 00 DE ve HL 34 20 20 DE E [...] ti UM 65 1- 00 SI 04 DE ve 04 [address] 03 11 11 JR 1 PH 40 AR WI MA LL MG CY IA M CA OF F PS UL CY E NT HI AN A FL 00 01 02 1 7. 7 EA 20 MC Ac UC 17 -1 -[address] 81 KE ti ON 25 5- 6- 0 SI 97 DE ve AZ 41 20 20 DE E OL 14 11 11 JR E 6 PH 10 AR WI 0 MA LL MG CY IA M TA OF F BL ET CY NT HI AN A SI 16 02 02 2 30 30 EA 21 MC Ac MV 71 -1 -[address] 26 KE ti 40 6- 6- 00 SI 51 DE ve TA 68 20 20 DE E TI 40 11 11 JR N 3 PH 40 AR WI MA LL MG CY IA M TA OF F BL ET CY NT HI AN A [place] 00 01 02 1 60 4 EA [address] 16 -1 -[address] 84 KE ti AT 80 7- 5- 00 SI 39 DE ve IN 08 20 20 DE E -T 16 11 11 JR RI 0 PH AM AR WI CI MA LL NO CY IA LO M NE OF F CR CY EA NT M HI AN A 00 02 02 0 12 30 EA 21 MC Ac 59 -1 -[address] 20 KE ti 10 1- 1- 00 SI 16 DE ve 54 20 20 0 DE E 00 11 11 JR 1 PH AR WI MA LL CY IA M OF F CY NT HI AN A CL 00 12 02 2 90 30 EA 20 MC Ac ON 09 -0 -[address] 32 KE ti AZ 30 9- 7- 00 SI 83 DE ve EP 83 20 20 DE E AM 20 10 11 JR 1 PH 0. AR WI 5 MA LL MG CY IA M TA OF F BL ET CY NT HI AN A EX 00 12 02 3 30 30 EA 20 MC Ac FO 07 -0 -[address] 24 KE ti RG 80 3- 5- 00 SI 32 DE ve E 48 20 20 DE E 10 91 10 11 JR -1 5 PH 60 AR WI MA LL MG CY IA M TA OF F BL ET CY NT HI AN A HY 00 12 01 2 30 30 EA [address] 59 -2 -[address] 58 KE ti OC 10 9- 0- 00 SI 00 DE ve HL 34 20 20 DE E [...] UM 65 8- 0- 00 SI 05 DE ve 04 [address] 03 10 11 JR 1 PH 40 AR WI MA LL MG CY IA M CA OF F PS UL CY E NT HI AN A NC 00 01 01 2 20 5 EA 20 MC Ac OM 78 -1 -[address] 84 KE ti ET 11 7- 7- 00 SI 38 DE ve NG 83 20 20 DE E ZI 01 11 11 JR NE 0 PH AR WI 25 MA LL CY IA MG M OF F TA BL CY ET NT HI AN A [place] 00 01 01 1 60 4 EA [address] 16 -1 -[address] 84 KE ti AT 80 7- 7- 00 SI 39 DE ve IN 08 20 20 DE E -T 16 11 11 JR RI 0 PH AM AR WI CI MA LL NO CY IA LO M NE OF F CR CY EA NT M HI AN A 00 01 01 0 30 15 EA 20 MC Ac 14 -1 -[address] 81 KE ti 31 5- 5- 00 SI 98 DE ve 47 20 20 DE E 70 11 11 JR 5 PH AR WI MA LL CY IA M OF F CY NT HI AN A SI 16 12 01 1 30 30 EA 20 MC Ac MV 71 -1 -[address] 42 KE ti 40 6- 5- 00 SI 49 DE ve TA 68 20 20 DE E TI 40 10 11 JR N 3 PH 40 AR WI MA LL MG CY IA M TA OF F BL ET CY NT HI AN A FL 00 01 01 1 7. 7 EA 20 MC Ac UC 17 -1 -[address] 81 KE ti ON 25 5- 5- 0 SI 97 DE ve AZ 41 20 20 DE E OL 14 11 11 JR E 6 PH 10 AR WI 0 MA LL MG CY IA M TA OF F BL ET CY NT HI AN A MU 00 01 01 0 22 4 EA 20 MC Ac PI 09 -1 -[address] 81 KE ti RO 31 4- 4- 00 SI 11 DE ve CI 01 20 20 DE E [...] RO 31 0- 0- 00 SI 00 DE ve CI 01 20 20 DE E N 04 11 11 JR 2% 2 PH AR WI OI MA LL NT CY IA ME M NT OF F CY NT HI AN A GALLAGHER 53 01 01 0 20 10 EA 20 MC Ac LF 74 -1 -[address] 75 KE ti AM 60 0- 0- 00 SI 99 DE ve ET 27 20 20 DE E [...] AZ 30 9 8 00 SI 83 DE ve EP 83 20 20 DE E AM 20 10 11 JR 1 PH 0. AR WI 5 MA LL MG CY IA M TA OF F BL ET CY NT HI AN A EX 00 12 01 3 30 30 EA 20 MC Ac FO 07 -0 -[address] 24 KE ti RG 80 3- 4- 00 SI 32 DE ve E 48 20 20 DE E 10 91 10 11 JR -1 5 PH 60 AR WI MA LL MG CY IA M TA OF F BL ET CY NT HI AN A HY 00 12 12 2 30 30 EA [address] 59 -2 -[address] 58 KE ti OC 10 SI 00 DE ve HL 34 20 20 DE E [...] UM 65 8- 0- 00 SI 05 DE ve 04 [address] 03 10 10 JR 1 PH 40 AR WI MA LL MG CY IA M CA OF F PS UL CY E NT HI AN A SI 16 12 12 1 30 30 EA 20 MC Ac MV 71 -1 -[address] 42 KE ti 40 6- 6 SI 49 DE ve TA 68 20 20 DE E TI 40 10 10 JR N 3 PH 40 AR WI MA LL MG CY IA M TA OF F BL ET CY NT HI AN A CL 00 12 12 2 90 30 EA 20 MC Ac ON 09 -0 -[address] 32 KE ti AZ 30 9 9 SI 83 DE ve EP 83 20 20 DE E AM 20 10 10 JR 1 PH 0. AR WI 5 MA LL MG CY IA M TA OF F BL ET CY NT HI AN A EX 00 12 12 3 30 30 EA 20 MC Ac FO 07 -0 -[address] 24 KE ti RG 80 3- 3- 00 SI 32 DE ve E 48 20 20 DE E [...] 23 KE ti OC 10 SI 17 DE ve HL 34 20 20 DE E [...] UM 65 8- 0- 00 SI 05 DE ve 04 [address] 03 10 10 JR 1 PH 40 AR WI MA LL MG CY IA M CA OF F PS UL CY E NT HI AN A SI 16 08 11 3 30 30 EA 18 MC Ac MV 71 -0 -[address] 64 KE ti 40 9- 5- 00 SI 89 DE ve TA 68 20 20 DE E TI 40 10 10 JR N 3 PH 40 AR WI MA LL MG CY IA M TA OF F BL ET CY NT HI AN A CL 00 11 11 0 90 30 EA 19 MC Ac ON 09 -0 -[address] 88 KE ti AZ 30 8- 8 00 SI 62 DE ve EP 83 20 20 DE E AM 20 10 10 JR 1 PH 0. AR WI 5 MA LL MG CY IA M TA OF F BL ET CY NT HI AN A EX 00 05 11 5 30 30 EA 17 MC Ac FO 07 -2 -[address] 70 KE ti RG 80 2- 3- 00 SI 24 DE ve E 48 20 20 DE E 10 91 10 10 JR -1 5 PH 60 AR WI MA LL MG CY IA M TA OF F BL ET CY NT HI AN A HY 00 09 10 2 30 30 EA [address] 59 -2 -[address] 23 KE ti OC 10 - 3 SI 17 DE ve HL 34 20 20 DE E [...] TH 81 8- 3- 00 SI 58 DE ve YR 80 20 20 DE E OX 30 10 10 JR IN 1 PH E AR WI 50 MA LL CY IA MC M G OF F TA BL CY ET NT HI AN A NE 00 10 10 3 30 30 EA 19 MC Ac XI 18 -1 -[address] 59 KE ti UM 65 8- 8- 00 SI 05 DE ve 04 [address] 03 10 10 JR 1 PH 40 AR WI MA LL MG CY IA M CA OF F PS UL CY E NT HI AN A SI 16 08 10 3 30 30 EA 18 MC Ac MV 71 -0 -[address] 64 KE ti 40 9- 5- 00 SI 89 DE ve TA 68 20 20 DE E TI 40 10 10 JR N 3 PH 40 AR WI MA LL MG CY IA M TA OF F BL ET CY NT HI AN A 00 10 10 0 12 30 EA 19 Ac 59 -1 -[address] 53 KE ti 10 3 3- 00 SI 11 DE ve 54 20 20 0 DE E 00 10 10 JR 1 PH AR WI MA LL CY IA M OF F CY NT HI AN A CL 00 10 10 0 90 30 EA 19 Ac ON 09 -0 -[address] 46 KE ti AZ 30 8 8 00 SI 44 DE ve EP 83 20 20 DE E AM 20 10 10 JR 1 PH 0. AR WI 5 MA LL MG CY IA M TA OF F BL ET CY NT HI AN A EX 00 05 10 5 30 30 EA 17 MC Ac FO 07 -2 -[address] 70 KE ti RG 80 2- 2- 00 SI 24 DE ve E 48 20 20 DE E 10 91 10 10 JR -1 5 PH 60 AR WI MA LL MG CY IA M TA OF F BL ET CY NT HI AN A GALLAGHER 53 09 09 0 20 10 EA 19 MC Ac LF 74 -2 -[address] 28 KE ti AM 60 4- 4- 00 SI 32 DE ve ET 27 20 20 DE E [...] TH 81 8- 1- 00 SI 58 DE ve YR 80 20 20 DE E OX 30 10 10 JR IN 1 PH E AR WI 50 MA LL CY IA MC M G OF F TA BL CY ET NT HI AN A HY 00 09 09 2 30 30 EA [address] 59 -2 -[address] 23 KE ti OC 10 1- 1- 00 SI 17 DE ve HL 34 20 20 DE E OR 70 10 10 JR OT 1 PH HI AR WI [place] MA LL ID CY IA E M 12 OF F .5 CY MG NT HI CP AN A SI 16 08 09 3 30 30 EA 18 MC Ac MV 71 -0 -[address] 64 KE ti 40 9- 4- 00 SI 89 DE ve TA 68 20 20 DE E TI 40 10 10 JR N 3 PH 40 AR WI MA LL MG CY IA M TA OF F BL ET CY NT HI AN A 00 09 09 0 12 30 EA 19 MC Ac 59 -1 -[address] 10 KE ti 10 3- 3- 00 SI 99 DE ve 54 20 20 0 DE E 00 10 10 JR 1 PH AR WI MA LL CY IA M OF F CY NT HI AN A CL 00 09 09 0 90 30 EA 19 MC Ac ON 09 -0 -[address] 04 KE ti AZ 30 8- 8- 00 SI 54 DE ve EP 83 20 20 DE E AM 20 10 10 JR 1 PH 0. AR WI 5 MA LL MG CY IA M TA OF F BL ET CY NT HI AN A EX 00 05 09 5 30 30 EA 17 MC Ac FO 07 -2 -[address] 70 KE ti RG 80 2- 1- 00 SI 24 DE ve E 48 20 20 DE E [...] OC 10 7- 8- 00 SI 77 DE ve HL 34 20 20 DE E [...] TH 81 8- 8- 00 SI 58 DE ve YR 80 20 20 DE E OX 30 10 10 JR IN 1 PH E AR WI 50 MA LL CY IA MC M G OF F TA BL CY ET NT HI AN A 00 08 08 0 12 30 EA 18 MC Ac 59 -1 -[address] 71 KE ti 10 4 4 00 SI 12 DE ve 54 20 20 0 DE E 00 10 10 JR 1 PH AR WI MA LL CY IA M OF F CY NT HI AN A SI 16 08 08 3 30 30 EA 18 MC Ac MV 71 -0 -[address] 64 KE ti 40 9 9 SI 89 DE ve TA 68 20 20 DE E TI 40 10 10 JR N 3 PH 40 AR [place] MA LL MG CY IA M TA OF F BL ET CY NT HI AN A CL 00 08 08 0 90 30 EA 18 MC Ac ON 09 -0 -[address] 64 KE ti AZ 30 SI 45 DE ve EP 83 20 20 DE E AM 20 10 10 JR 1 PH 0. AR [place] 5 MA LL MG CY IA M TA OF F BL ET CY NT HI AN A NE 00 08 08 3 60 30 EA 18 MC Ac XI 18 -0 -[address] 64 KE ti UM 65 9 9 00 SI 88 DE ve 04 [address] 03 10 10 JR 1 PH 40 AR [place] MA LL MG CY IA M CA OF F PS UL CY E NT HI AN A EX 00 05 07 5 30 30 EA 17 MC Ac FO 07 -2 -[address] 70 KE ti RG 80 2 8- 00 SI 24 DE ve E 48 20 20 DE E 10 91 10 10 JR -1 5 PH 60 AR [place] MA LL MG CY IA M TA OF F BL ET CY NT HI AN A LE 00 04 07 3 30 30 EA 17 MC Ac VO 37 -0 -[address] 10 KE ti TH 81 7- 0- 00 SI 12 DE ve YR 80 20 20 DE E OX 30 10 10 JR IN 1 PH E AR WI 50 MA LL CY IA MC M G OF F TA BL CY ET NT HI AN A HY 00 05 07 3 30 30 EA [address] 59 -0 -[address] 50 KE ti OC 10 7- 0- 00 SI 77 DE ve HL 34 20 20 DE E [...] AZ 30 8- 8- 00 SI 89 DE ve EP 83 20 20 DE E [...] KE ti 90 2 3 SI 46 DE ve TA 00 20 20 DE E TI 61 10 10 JR N 7 PH 40 AR WI MA LL MG CY IA M TA OF F BL ET CY NT HI AN A NE 00 03 07 3 30 30 EA 16 MC Ac XI 18 -1 -[address] 82 KE ti UM 65 7- 3 SI 12 DE ve 04 [address] 03 10 10 JR 1 PH 40 AR [place] MA LL MG CY IA M CA OF F PS UL CY E NT HI AN A EX 00 05 06 5 30 30 EA 17 MC Ac FO 07 -2 -[address] 70 KE ti RG 80 2- 7- 00 SI 24 DE ve E 48 20 20 DE E 10 91 10 10 JR -1 5 PH 60 AR [place] MA LL MG CY IA M TA OF F BL ET CY NT HI AN A 00 06 06 0 12 30 EA 17 MC Ac 59 -1 -[address] 97 KE ti 10 4- 4- 00 SI 41 DE ve 54 20 20 0 DE E 00 10 10 JR 1 PH AR WI MA LL CY IA M OF F CY NT HI AN A LE 00 04 06 3 30 30 EA 17 MC Ac VO 37 -0 -[address] 10 KE ti TH 81 7- 1- 00 SI 12 DE ve YR 80 20 20 DE E OX 30 10 10 JR IN 1 PH E AR [place] 50 MA LL CY IA MC M G OF F TA BL CY ET NT HI AN A HY 00 05 06 3 30 30 EA [address] [facility] [address] 59 -0 -[address] 50 KE ti OC 10 7 SI 77 DE ve HL 34 20 20 DE E [...] 06 06 0 90 30 EA 17 [facility] ON 09 -0 -[address] 87 KE ti AZ 30 SI 85 DE ve EP 83 20 20 DE E AM 20 10 10 JR 1 PH 0. [place] 5 MA LL MG CY IA M TA OF F BL ET CY NT HI AN A SI 65 02 05 3 30 30 EA 16 [facility] MV 86 -1 -[address] 35 KE ti 20 SI 46 DE ve TA 05 20 20 DE E TI 33 10 10 JR N 0 PH 40 AR [place] MA LL MG CY IA M TA OF F BL ET CY NT HI AN A NE 00 03 05 3 30 30 EA 16 [facility] XI 18 -1 -[address] 82 KE ti UM 65 SI 12 DE ve 04 [address] 03 10 10 JR 1 PH 40 AR [place] MA LL MG CY IA M CA OF F PS UL CY E NT HI AN A EX 00 05 05 5 30 30 EA 17 Ac FO 07 -2 -[address] 70 KE ti RG 80 2- 2 00 SI 24 DE ve E 48 20 20 DE E 10 91 10 10 JR -1 5 PH 60 AR [place] MA LL MG CY IA M TA OF F BL ET CY NT HI AN A 00 05 05 0 12 30 EA 17 Ac 59 -1 -[address] 61 KE ti 10 SI 05 DE ve 54 20 20 0 DE E 00 10 10 JR 1 PH AR WI MA LL CY IA M OF F CY NT HI AN A HY 00 05 05 3 [address] 59 -0 -[address] 50 KE ti OC 10 7- 7- 00 SI 77 DE ve HL 34 20 20 DE E [...] TH 81 7- 7- 00 SI 12 DE ve YR 80 20 20 DE E OX 30 10 10 JR IN 1 PH E AR WI 50 MA LL CY IA MC M G OF F TA BL CY ET NT HI AN A CL 00 05 05 0 90 30 EA 17 MC Ac ON 09 -0 -[address] 48 KE ti AZ 30 6 6 00 SI 98 DE ve EP 83 20 20 DE E AM 20 10 10 JR 1 PH 0. [place] 5 MA LL MG CY IA M TA OF F BL ET CY NT HI AN A SI 65 02 04 3 30 30 EA 16 MC Ac MV 86 -1 -[address] 35 KE ti 20 2- 3- 00 SI 46 DE ve TA 05 20 20 DE E TI 33 10 10 JR N 0 PH 40 AR WI MA LL MG CY IA M TA OF F BL ET CY NT HI AN A NE 00 03 04 3 30 30 EA 16 MC Ac XI 18 -1 -[address] 82 KE ti UM 65 7 3 00 SI 12 DE ve 04 [address] 03 10 10 JR 1 PH 40 AR [place] MA LL MG CY IA M CA OF F PS UL CY E NT HI AN A 00 04 04 0 12 30 EA 17 MC Ac 59 -1 -[address] 20 KE ti 10 5- 5- SI 16 DE ve 54 20 20 0 DE E 00 10 10 JR 1 PH AR WI MA LL CY IA M OF F CY NT HI AN A CL 00 04 04 0 60 30 EA 17 MC Ac ON 09 -[address] 20 KE ti AZ 30 5- 5- 00 SI 17 DE ve EP 83 20 20 DE E AM 20 10 10 JR 1 PH 0. [place] 5 MA LL MG CY IA M TA OF F BL ET CY NT HI AN A HY 00 01 04 3 30 30 EA [address] 59 -0 -[address] 81 KE ti OC 10 4- 7- 00 SI 52 DE ve HL 34 20 20 DE E OR 70 10 10 JR OT 1 PH HI AR WI [place] MA LL ID CY IA E M 12 OF F .5 CY MG NT HI CP AN A LE 00 04 04 3 30 30 EA 17 MC Ac VO 37 -0 -[address] 10 KE ti TH 81 7 SI 12 DE ve YR 80 20 20 DE E OX 30 10 10 JR IN 1 PH E [place] 50 MA LL CY IA MC M G OF F TA BL CY ET NT HI AN A 00 03 03 0 12 30 EA 16 MC Ac 59 -1 -[address] 81 KE ti 10 SI 83 DE ve 54 20 20 0 DE E 00 10 10 JR 1 PH AR WI MA LL CY IA M OF F CY NT HI AN A NE 00 03 03 3 30 30 EA 16 MC Ac XI 18 -1 -[address] 82 KE ti UM 65 SI 12 DE ve 04 [address] 03 10 10 JR 1 PH 40 AR [place] MA LL MG CY IA M CA OF F PS UL CY E NT HI AN A CL 00 03 03 0 60 30 EA 16 MC Ac ON -[address] 81 KE ti AZ 30 SI 84 DE ve EP 83 20 20 DE E AM 20 10 10 JR 1 PH 0. [place] 5 MA LL MG CY IA M TA OF F BL ET CY NT HI AN A SI 65 02 03 3 30 30 EA 16 MC Ac MV 86 -1 -[address] 35 KE ti 20 SI 46 DE ve TA 05 20 20 DE E TI 33 10 10 JR N 0 PH 40 AR [place] MA LL MG CY IA M TA OF F BL ET CY NT HI AN A HY 00 01 03 3 30 30 EA [address] 59 -0 -[address] 81 KE ti OC 10 SI 52 DE ve HL 34 20 20 DE E OR 70 10 10 JR OT 1 PH HI AR WI [place] MA LL ID CY IA E M 12 OF F .5 CY MG NT HI CP AN A LE 00 12 03 3 30 30 EA 15 MC Ac VO 37 -0 -[address] 38 KE ti TH 81 2 SI 79 DE ve YR 80 20 20 DE E [...] Comment: If this patient is -Citizen Of The [place], then multiply the Comment: result by 1.210. [...] blood 13:35 platele t mean volume savannah Spencer % = 6.6 % 1.7-9.3 complet 017 [...] Comment: If this patient is -Citizen Of [place], then multiply the Comment: result by 1.210. [...] BRADFORD MD (ER) 3 15:33 3 19:[address] [facility] Emergency SERGIO Daley (ER) 3 18:40 3 21:51 [facility]
[2017-11-21 02:41] LABS: BUN 16 mg/dL (7-18)
[2017-11-21 02:43] LABS: GFR (ESTIMATED) 51 ML/MIN (>60)
--- OUTSIDE RECORDS SUMMARY | 2017-11-21 03:03 | External Medical Summary Rpt | CCD ---
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 ag ar # ys at rm s nt no ma ic us Or Da si cy ia de te s n re d MD 00 11 12 20 10 00 EA Ac OM 60 -1 -[address] ti ET 31 6- 2- 00 00 SI ve NG 58 20 20 0 50 DE ZI 65 17 17 94 NE 8 48 PH -D AR M MA SY CY RU P OF CY NT HI AN A IN C FL 50 11 12 16 16 00 EA Ac UT 38 -1 -[address] ti IC 30 6- 2- 00 00 SI ve 70 20 20 50 DE ON 01 17 17 94 E 6 49 PH MD AR OP MA CY 50 OF MC CY G NT SP HI RA AN Y A IN C CE 16 11 12 30 30 00 EA Ac TI 71 -1 -[address] ti RI 40 6- 2- 00 00 SI ve ZI 27 20 20 50 DE NE 10 17 17 94 3 47 PH HC AR L MA 10 CY MG OF CY TA NT BL HI ET AN A IN C AT 60 11 12 30 30 00 EA Ac OR 50 -1 -[address] ti VA 52 3- 5- [address] 58 20 20 49 DE AT 00 17 17 10 IN 9 75 PH AR 40 MA CY MG OF TA CY BL NT ET HI AN A IN C AL 60 11 12 30 30 00 EA Ac FU 50 -1 -[address] ti ZO 52 1- 5- 00 00 SI ve SI 85 20 20 47 DE N 00 17 17 18 HC 1 04 PH L AR ER MA CY 10 OF MG CY NT TA HI BL AN ET A IN C LO 16 11 12 30 30 00 EA Ac SA 71 -1 -[address] ti RT 40 3- 5- 00 00 SI ve AN 22 20 20 50 DE -H [address] 1 90 PH Z AR 10 MA 0- CY 12 .5 OF CY MG NT HI TA AN B A IN C EF 00 11 12 30 30 00 EA Ac FI 00 -0 -[address] ti EN 25 4- 8- 00 00 SI ve T 12 20 20 49 DE 10 33 17 17 64 0 36 PH MG AR MA TA CY BL ET OF CY NT HI AN A IN C HY 00 11 12 [address] 40 -0 -[address] ti OC 60 8- 8- 00 00 SI ve OD 12 20 20 0 50 DE ON 50 17 17 83 -A 5 31 PH CE AR TA MA MS CY NO PH OF N CY 10 NT -3 HI 25 AN A IN C LO 16 11 12 30 30 00 EA Ac RA 71 -0 -[address] ti TA 40 6- 8- 00 00 SI ve DI 48 20 20 50 DE NE 20 17 17 80 3 61 PH 10 AR MA MG CY TA OF BL CY ET NT HI AN A IN C PA 65 11 12 30 30 00 EA Ac NT 86 -0 -[address] ti OP 20 2- 8- 00 00 SI ve RA 56 20 20 50 DE ZO 09 17 17 76 LE 0 34 PH AR SO MA D CY DR OF 40 CY NT MG HI AN TA A B IN C FU 00 11 12 30 30 00 EA Ac RO 37 -0 -[address] ti SE 80 2- 8- 00 00 SI ve MS 21 20 20 50 DE DE 61 17 17 76 0 35 PH 40 AR MA MG CY TA OF BL CY ET NT HI AN A IN C ME 23 10 12 30 30 00 EA Ac TF 15 -2 -[address] ti OR 50 9- 1- 00 00 SI ve MS 10 20 20 50 DE N 21 17 17 70 HC 0 57 PH L AR 50 MA 0 CY MG OF TA CY BL NT ET HI AN A IN C LE 00 10 11 30 30 00 EA Ac VO 37 -2 -[address] ti TH 81 5- 4- 00 00 SI ve YR 80 20 20 50 DE OX 57 17 17 66 IN 7 07 PH E AR 75 MA CY MC G OF TA CY BL NT ET HI AN A IN C AT 60 10 11 30 30 00 EA Ac OR 50 -1 -[address] ti VA 52 2- 7- [address] 58 20 20 49 DE AT 00 17 17 10 IN 9 75 PH AR 40 MA CY MG OF TA CY BL NT ET HI AN A IN C LO 16 10 11 30 30 00 EA Ac SA 71 -1 -[address] ti RT 40 2- 7- 00 00 SI ve AN 22 20 20 50 DE -H [address] 1 44 PH Z AR 10 MA 0- CY 12 .5 OF CY MG NT HI TA AN B A IN C VE 00 10 11 18 18 00 EA Ac NT 17 -0 -[address] ti OL 30 9- 0- 00 00 SI ve IN 68 20 20 50 DE 22 17 17 46 HF 0 97 PH A AR 90 MA CY MC G OF IN CY NG NT LE HI R AN A IN C HY 00 10 11 [address] 40 -0 -[address] ti OC 60 9- 0- 00 00 SI ve OD 12 20 20 0 50 DE ON 50 17 17 46 -A 5 60 PH CE AR TA MA MS CY NO PH OF N CY 10 NT -3 HI 25 AN A IN C EF 00 10 11 30 30 00 EA Ac FI 00 -0 -[address] ti EN 25 2- 3- 00 00 SI ve T 12 20 20 49 DE 10 33 17 17 64 0 36 PH MG AR MA TA CY BL ET OF CY NT HI AN A IN C AL 60 10 11 30 30 00 EA Ac FU 50 -0 -[address] ti ZO 52 2- 3- 00 00 SI ve SI 85 20 20 47 DE N 00 17 17 18 HC 1 04 PH L AR ER MA CY 10 OF MG CY NT TA HI BL AN ET A IN C FU 00 09 10 30 30 00 EA Ac RO 37 -2 -[address] ti SE 80 6- 7- 00 00 SI ve MS 21 20 20 50 DE DE 61 17 17 30 0 17 PH 40 AR MA MG CY TA OF BL CY ET NT HI AN A IN C ME 23 09 10 30 30 00 EA Ac TF 15 -2 -[address] ti OR 50 6- 7- 00 00 SI ve MS 10 20 20 50 DE N 21 17 17 30 HC 0 20 PH L AR 50 MA 0 CY MG OF TA CY BL NT ET HI AN A IN C CL 00 09 10 60 30 00 EA Ac ON 22 -2 -[address] ti AZ 83 5- 7- 00 00 SI ve EP 00 20 20 49 DE AM 35 17 17 57 0 34 PH 0. AR 5 MA MG CY TA OF BL CY ET NT HI AN A IN C PA 65 09 10 30 30 00 EA Ac NT 86 -2 -[address] ti OP 20 6- 7- 00 00 SI ve RA 56 20 20 50 DE ZO 09 17 17 30 LE 0 15 PH AR SO MA D CY DR OF 40 CY NT MG HI AN TA A B IN C LE 00 09 10 30 30 00 EA Ac VO 37 -1 -[address] ti TH 81 8- 0- 00 00 SI ve YR 80 20 20 50 DE OX 57 17 17 20 IN 7 12 PH E AR 75 MA CY MC G OF TA CY BL NT ET HI AN A IN C HY 00 09 10 [address] 40 -0 -[address] ti OC 60 9- 3- 00 00 SI ve OD 12 20 20 0 50 DE ON 50 17 17 09 -A 5 20 PH CE AR TA MA MS CY NO PH OF N CY 10 NT -3 HI 25 AN A IN C AT 60 09 10 30 30 00 EA Ac OR 50 -1 -[address] ti VA 52 3- 3- [address] 58 20 20 49 DE AT 00 17 17 10 IN 9 75 PH AR 40 MA CY MG OF TA CY BL NT ET HI AN A IN C LO 16 09 10 30 30 00 EA Ac SA 71 -1 -[address] ti RT 40 3- 3- 00 00 SI ve AN 22 20 20 50 DE -H [address] 1 76 PH Z AR 10 MA 0- CY 12 .5 OF CY MG NT HI TA AN B A IN C AL 60 09 10 30 30 00 EA Ac FU 50 -0 -[address] ti ZO 52 1- 6- 00 00 SI ve SI 85 20 20 47 DE N 00 17 17 18 HC 1 04 PH L AR ER MA CY 10 OF MG CY NT TA HI BL AN ET A IN C EF 00 09 10 30 30 00 EA Ac FI 00 -0 -[address] ti EN 25 1- 6- 00 00 SI ve T 12 20 20 49 DE 10 33 17 17 64 0 36 PH MG AR MA TA CY BL ET OF CY NT HI AN A IN C CL 00 08 09 60 30 00 [...] A B IN C FU 00 08 30 30 00 EA Ac RO 37 -2 -[address] ti SE 80 4- 9- 00 00 SI ve MS 21 20 20 49 DE DE 61 17 17 91 0 24 PH 40 AR MA MG CY TA OF BL CY ET NT HI AN A IN C ME 23 08 30 30 00 EA Ac TF 15 -2 -[address] ti OR 50 4- 9- 00 00 SI ve MS 10 20 20 49 DE N 21 17 17 91 HC 0 25 PH L AR 50 MA 0 CY MG OF TA CY BL NT ET HI AN A IN C LE 00 08 30 30 00 EA Ac VO [...] 5 49 PH CE AR TA MA MS CY NO PH OF N CY 10 NT -3 HI 25 AN A IN C LO 16 08 [...] AN B A IN C AT 60 08 09 [...] HI BL AN ET A IN C EF 08 09 30 30 00 EA Ac FI 00 -0 -[address] ti EN 25 2- 1- 00 00 SI ve T 12 20 20 49 DE 10 33 17 17 64 0 36 PH MG AR MA TA CY BL ET OF CY NT HI AN A IN C CL 07 08 60 30 00 EA Ac [...] 50 4- 5- 00 00 SI ve MS 10 20 20 49 DE N 21 17 17 54 HC 0 03 PH L AR 50 MA 0 CY MG OF TA CY BL NT ET HI AN A IN C FU 08 30 30 00 EA Ac RO 37 -2 -[address] ti SE 80 4- 5- 00 00 SI ve MS 21 20 20 49 DE DE 61 17 17 54 0 05 PH 40 AR MA MG CY TA OF BL CY ET NT HI AN A IN C HY 00 07 08 [address] 40 -1 -[address] ti OC 60 2- 8- 00 00 SI ve OD 12 20 20 0 49 DE ON 50 17 17 40 -A 5 66 PH CE AR TA MA MS CY NO PH OF N CY 10 NT -3 HI 25 AN A IN C LE 08 30 [...] LE HI R AN A IN C LO 16 07 [...] 50 2- 8- 00 00 SI ve MS 10 20 20 49 DE N 21 [...] HI BL AN ET A IN C FU 00 06 07 30 30 00 EA Ac RO 37 -1 -[address] ti SE 80 6- 1- 00 00 SI ve MS 21 20 20 49 DE DE 61 [...] CY NT HI AN A IN C HY 00 06 07 [address] 40 -1 -[address] ti OC 60 1- 4- 00 00 SI ve OD 12 20 20 0 49 DE ON 50 17 17 08 -A 5 80 PH CE AR TA MA MS CY NO PH OF N CY 10 [...] 50 2- 3- 00 00 SI ve MS 10 20 20 48 DE N 21 [...] 5 38 PH CE AR TA MA MS CY NO PH OF N CY 10 NT -3 HI 25 AN A IN C LE 00 05 06 30 30 00 EA Ac VO 37 -0 -[address] ti TH 81 9- 9 00 SI ve YR 80 20 20 48 DE OX 57 17 17 68 IN 7 28 PH E AR 75 MA CY MC G OF TA CY BL NT ET HI AN A IN C FU 00 05 06 30 30 00 EA Ac RO 37 -0 -[address] ti SE 80 9- 9- 00 SI ve MS 21 20 20 48 DE DE 61 17 17 68 0 20 PH 40 AR MA MG CY TA OF BL CY ET NT HI AN A IN C SI 16 05 06 30 30 00 EA Ac MV 71 -0 -[address] ti 40 9- 00 SI ve TA 68 20 20 48 DE TI 40 17 17 68 N 3 27 PH 40 AR MA MG CY TA OF BL CY ET NT HI AN A IN C ME 00 04 05 30 30 00 EA Ac TF 09 -2 -[address] ti OR 31 6 00 SI ve MS 04 20 20 48 DE N 80 17 17 44 HC 1 51 PH L AR 50 MA 0 CY MG OF TA CY BL NT ET HI AN A IN C OM 62 04 05 30 30 00 EA Ac EP 17 -2 -[address] ti RA 50 1- 6 00 SI ve ZO 13 20 [...] -[address] ti ET 10 1- 6- 00 SI ve HY 45 20 [...] 40 0- 2- 00 00 SI ve MS 62 20 20 48 DE DE 51 [...] 5 38 PH CE AR TA MA MS CY NO PH OF N CY 10 [...] 31 0- 1- 00 00 SI ve MS 04 20 20 48 DE N 80 [...] ve LO 37 20 20 48 DE MD 40 17 17 05 AM 1 71 PH AR 10 MA CY MG OF TA CY BL NT ET HI AN A IN C FU 63 03 04 30 30 00 EA Ac RO 30 -0 -[address] ti SE 40 9- 4- 00 00 SI ve MS 62 20 20 47 DE DE 51 [...] 5 33 PH CE AR TA MA MS CY NO PH OF N CY 10 [...] .[address] ti OL 30 7- - 00 SI ve IN 68 20 20 47 DE 22 17 17 76 HF 0 88 PH A AR 90 MA CY MC G OF IN CY NG NT LE HI R AN A IN C ES 65 02 03 30 30 00 EA Ac CI 86 -1 -[address] ti TA 20 7- 4- 00 SI ve LO 37 20 20 47 DE MD 40 17 17 66 AM 1 03 PH AR 10 MA CY MG OF TA CY BL NT ET HI AN A IN C LO 16 02 03 30 30 00 EA Ac SA 71 -2 -[address] ti RT 40 1- 4- 00 SI ve AN 22 20 20 47 DE -H [address] 1 12 PH Z AR 10 MA 0- CY 12 .5 OF CY MG NT HI TA AN B A IN C CL 00 02 03 60 30 00 EA Ac ON 18 -1 -[address] ti AZ 50 7- 4- 00 SI ve EP 06 20 20 47 DE AM 30 17 17 66 5 01 PH 0. AR 5 MA MG CY TA OF BL CY ET NT HI AN A IN C ME 23 02 03 30 30 00 EA Ac TF 15 -1 -[address] ti OR 50 7- 4- 00 00 SI ve MS 10 20 20 47 DE N 21 17 17 66 HC 0 02 PH L AR 50 MA 0 CY MG OF TA CY BL NT ET HI AN A IN C AL 60 02 [...] 5 63 PH CE AR TA MA MS CY NO PH OF N CY 10 NT -3 HI 25 AN A IN C DO 49 02 03 60 30 00 EA Ac XY 88 -0 -[address] ti CY 40 7- 0- 00 00 SI ve CL 72 20 20 47 DE IN 70 17 17 52 E 3 71 PH MO AR NO MA CY 10 0 OF MG CY NT CA HI P AN A IN C LE 00 02 [...] NT HI AN A IN C FU 63 01 03 30 30 00 EA Ac RO 30 -3 -[address] ti SE 40 0- 3- 00 00 SI ve MS 62 20 20 47 DE DE 51 [...] 50 6- 7- 00 00 SI ve MS 10 20 20 47 DE N 21 [...] 5 53 PH CE AR TA MA MS CY NO PH OF N CY 10 [...] AN A IN C VE 00 02 18 [...] 40 6- 7- 00 00 SI ve MS 62 20 20 47 DE DE 51 [...] 50 5- 0- 00 00 SI ve MS 10 20 20 46 DE N 21 [...] AN B A IN C HY 00 12 [address] 40 -1 -[address] ti OC 60 3- 3- 00 00 SI ve OD 12 20 20 0 46 DE ON 50 16 17 86 -A 5 68 PH CE AR TA MA MS CY NO PH OF N CY 10 NT -3 HI 25 AN A IN C SI 16 12 30 [...] HI UL AN E A IN C AL 60 12 01 [...] RT 40 9- 9- 00 SI 16 MS ve AN 22 20 20 0 DE [...] PE 40 4- 4- 00 SI 87 MS ve NT 66 20 20 0 DE E IN 20 13 13 JR 1 PH 30 AR WI 0 MA LL MG CY IA M CA OF F PS UL CY E NT HI AN A SI 16 11 11 0 30 30 EA 33 MC Ac MV 71 -1 -[address] 61 KE ti 40 2- 2- 00 SI 39 MS ve TA 68 20 20 0 DE E TI 40 13 13 JR N 3 PH 40 AR WI MA LL MG CY IA M TA OF F BL ET CY NT HI AN A LO 16 06 11 4 15 15 EA 31 MC Ac SA 71 -1 -[address] 99 KE ti RT 40 0- 2- 00 SI 99 MS ve AN 22 20 20 0 DE [...] RA 50 4- 1- 00 SI 09 MS ve ZO 13 20 20 0 DE E LE 63 [address] AR WI MA LL 40 CY IA M MG OF F CA CY PS NT UL HI E AN A ME 00 08 11 3 30 30 EA 32 MC Ac TF 09 -0 -[address] 52 KE ti OR 31 2- 9- 00 SI 59 MS ve MS 04 20 20 0 DE E N 81 13 13 JR HC 0 PH L AR WI 50 MA LL 0 CY IA MG M OF F TA BL CY ET NT HI AN A FU 63 08 11 2 30 30 EA 32 MC Ac RO 30 -2 -[address] 80 KE ti SE 40 9- 5- 00 SI 32 MS ve MS 62 20 20 0 DE E DE 51 13 13 JR 0 PH 40 AR WI MA LL MG CY IA M TA OF F BL ET CY NT HI AN A CL 00 10 11 0 45 15 EA 33 MC Ac ON 22 -1 -[address] 31 KE ti AZ 83 4- 2- 00 SI 89 MS ve EP 00 20 20 0 DE E AM 45 13 13 JR 1 0 PH AR WI MG MA LL CY IA TA M BL OF F ET CY NT HI AN A LE 00 07 11 3 30 30 EA 32 MC Ac VO 37 -2 -[address] 46 KE ti TH 81 6- 2- 00 SI 48 MS ve YR 80 20 20 0 DE [...] RT 40 0- 5- 00 SI 99 MS ve AN 22 20 20 0 DE [...] AZ 83 4- 4- 00 SI 89 MS ve EP 00 20 20 0 DE E AM 45 13 13 JR 1 0 PH AR WI MG MA LL CY IA TA M BL OF F ET CY NT HI AN A SI 16 08 10 2 30 30 EA 32 MC Ac MV 71 -0 -[address] 57 KE ti 40 7- 2- 00 SI 30 MS ve TA 68 20 20 0 DE E TI 40 13 13 JR N 3 PH 40 AR WI MA LL MG CY IA M TA OF F BL ET CY NT HI AN A OM 62 09 10 2 30 30 EA 32 MC Ac EP 17 -0 -[address] 86 KE ti RA 50 4- 9- 00 SI 09 MS ve ZO 13 20 20 0 DE E LE 63 [address] AR WI MA LL 40 CY IA M MG OF F CA CY PS NT UL HI E AN A ME 00 08 10 3 30 30 EA 32 MC Ac TF 09 -0 -[address] 52 KE ti OR 31 2- 7- 00 SI 59 MS ve MS 04 20 20 0 DE E N 81 13 13 JR HC 0 PH L AR WI 50 MA LL 0 CY IA MG M OF F TA BL CY ET NT HI AN A FU 63 08 10 2 30 30 EA 32 MC Ac RO 30 -2 -[address] 80 KE ti SE 40 9- 3- 00 SI 32 MS ve MS 62 20 20 0 DE E DE 51 13 13 JR 0 PH 40 AR WI MA LL MG CY IA M TA OF F BL ET CY NT HI AN A EX 00 08 10 2 30 30 EA 23 MC Ac FO 07 -1 -[address] 73 KE ti RG 80 9- 9- 00 SI 45 MS ve E 48 20 20 DE E 10 91 11 11 JR -1 5 PH 60 AR WI MA LL MG CY IA M TA OF F BL ET CY NT HI AN A ME 00 08 10 1 30 30 EA 23 BE Ac TF 09 -2 -[address] 77 SS ti OR 31 3- 8- 00 SI 83 ON ve MS 04 20 20 DE N 81 11 [...] AC 40 4- 4- 00 SI 01 MS ve ET 70 20 20 DE E [...] UM 65 6- 0- 00 SI 46 MS ve 04 [address] 03 11 11 JR 1 PH 40 AR WI MA LL MG CY IA M CA OF F PS UL CY E NT HI AN A FU 63 09 10 3 30 30 EA 24 MC Ac RO 30 -1 -[address] 04 KE ti SE 40 2- 0- 00 SI 35 MS ve MS 62 20 20 DE E DE 51 [...] ti 10 7- 7- 00 SI 81 MS ve 54 20 20 0 DE E [...] RG 80 9- 4- 00 SI 45 MS ve E 48 20 20 DE E 10 91 11 11 JR -1 5 PH 60 AR WI MA LL MG CY IA M TA OF F BL ET CY NT HI AN A SI 16 05 09 3 30 30 EA 22 MC Ac MV 71 -3 -[address] 74 KE ti 40 1- 4- 00 SI 35 MS ve TA 68 20 20 DE E [...] 2- 2- 00 SI 16 ON ve MS 62 20 20 DE DE 51 11 [...] ti 10 7- 7- 00 SI 45 MS ve 54 20 20 0 DE E 00 11 11 JR 1 PH AR WI MA LL CY IA M OF F CY NT HI AN A CL 00 09 09 0 90 30 EA 23 MC Ac ON 09 -0 -[address] 98 KE ti AZ 30 6- 6- 00 SI 47 MS ve EP 83 20 20 DE E AM 20 11 11 JR 1 PH 0. AR [place] 5 MA LL MG CY IA M TA OF F BL ET CY NT HI AN A NE 00 08 08 2 30 30 EA 23 MC Ac XI 18 -3 -[address] 89 KE ti UM 65 1- 1- 00 SI 75 MS ve 04 [address] [...] 3- 3- 00 SI 83 ON ve MS 04 20 20 DE N 81 11 [...] RG 80 9- 9- 00 SI 45 MS ve E 48 20 20 DE E [...] 6- 6- 00 SI 13 ON ve MS 62 20 20 DE DE [address] 0 PH EP 40 AR HE MA N MG CY A TA OF BL ET CY NT HI AN A SI 16 05 08 3 30 30 EA 22 MC Ac MV 71 -3 -[address] 74 KE ti 40 1- 6- 00 SI 35 MS ve TA 68 20 20 DE E TI 40 11 11 JR N 3 PH 40 AR WI MA LL MG CY IA M TA OF F BL ET CY NT HI AN A CL 00 08 08 0 90 30 EA 23 MC Ac ON 09 -0 -[address] 54 KE ti AZ 30 5- 5- 00 SI 97 MS ve EP 83 20 20 DE E AM 20 11 11 JR 1 PH 0. AR WI 5 MA LL MG CY IA M TA OF F BL ET CY NT HI AN A NE 00 05 08 2 30 30 EA 22 MC Ac XI 18 -2 -[address] 69 KE ti UM 65 5- 2- 00 SI 36 MS ve 04 [address] 03 11 11 JR 1 PH 40 AR WI MA LL MG CY IA M CA OF F PS UL CY E NT HI AN A ZE 66 06 08 3 30 30 EA 23 MC Ac TI 58 -2 -[address] 05 KE ti A 20 3- 2- 00 SI 21 MS ve 10 41 20 20 DE E [...] RG 80 1- 6- 00 SI 11 MS ve E 48 20 20 DE E 10 91 11 11 JR -1 5 PH 60 AR WI MA LL MG CY IA M TA OF F BL ET CY NT HI AN A ME 00 05 07 1 60 30 EA 22 BE Ac TF 09 -1 -[address] 56 SS ti OR 31 7- - 00 SI 55 ON ve MS 04 20 20 DE N 81 11 [...] AZ 30 5- 5- 00 SI 75 MS ve EP 83 20 20 DE E AM 20 11 11 JR 1 PH 0. AR WI 5 MA LL MG CY IA M TA OF F BL ET CY NT HI AN A FU 63 05 07 2 30 30 EA 22 BE Ac RO 30 -0 -[address] 36 SS ti SE 40 3- 4- 00 SI 75 ON ve MS 62 20 20 DE DE [address] 0 PH EP 40 AR HE MA N MG CY A TA OF BL ET CY NT HI AN A SI 16 05 07 3 30 30 EA 22 MC Ac MV 71 -3 -[address] 74 KE ti 40 1 2- 00 SI 35 MS ve TA 68 20 20 DE E TI 40 11 11 JR N 3 PH 40 AR WI MA LL MG CY IA M TA OF F BL ET CY NT HI AN A NE 00 05 06 2 30 30 EA 22 MC Ac XI 18 -2 -[address] 69 KE ti UM 65 5- 5- 00 SI 36 MS ve 04 [address] 03 11 11 JR 1 PH 40 AR WI MA LL MG CY IA M CA OF F PS UL CY E NT HI AN A ZE 66 06 06 3 30 30 EA 23 MC Ac TI 58 -2 -[address] 05 KE ti A 20 3- 3- 00 SI 21 MS ve 10 41 20 20 DE E [...] RG 80 1- 5- 00 SI 11 MS ve E 48 20 20 DE E [...] AZ 30 7- 7- 00 SI 61 MS ve EP 83 20 20 DE E AM 20 11 11 JR 1 PH 0. AR WI 5 MA LL MG CY IA M TA OF F BL ET CY NT HI AN A FU 63 05 06 2 30 30 EA 22 BE Ac RO 30 -0 -[address] 36 SS ti SE 40 3- 2- 00 SI 75 ON ve MS 62 20 20 DE DE [address] 0 PH EP 40 AR HE MA N MG CY A TA OF BL ET CY NT HI AN A SI 16 05 05 3 30 30 EA 22 MC Ac MV 71 -3 -[address] 74 KE ti 40 1- 1- 00 SI 35 MS ve TA 68 20 20 DE E TI 40 11 11 JR N 3 PH 40 AR WI MA LL MG CY IA M TA OF F BL ET CY NT HI AN A NE 00 05 05 2 30 30 EA 22 MC Ac XI 18 -2 -[address] 69 KE ti UM 65 5- 6- 00 SI 36 MS ve 04 [address] [...] 7- 7- 00 SI 55 ON ve MS 04 20 20 DE N [address] HC 0 PH EP L AR HE 50 MA N 0 CY A MG OF TA BL CY ET NT HI AN A EX 00 04 05 3 30 30 EA 22 MC Ac FO 07 -1 -[address] 06 KE ti RG 80 1- 6- 00 SI 11 MS ve E 48 20 20 DE E [...] 3- 3- 00 SI 75 ON ve MS 62 20 20 DE DE 51 11 [...] UM 65 1- 5- 00 SI 04 MS ve 04 [address] 03 11 11 JR 1 PH 40 AR WI MA LL MG CY IA M CA OF F PS UL CY E NT HI AN A SI 16 02 04 2 30 30 EA 21 MC Ac MV 71 -1 -[address] 26 KE ti 40 6- 5- 00 SI 51 MS ve TA 68 20 20 DE E TI 40 11 11 JR N 3 PH 40 AR WI MA LL MG CY IA M TA OF F BL ET CY NT HI AN A EX 00 04 04 3 30 30 EA 22 MC Ac FO 07 -1 -[address] 06 KE ti RG 80 1- 1- SI 11 MS ve E 48 20 20 DE E 10 91 11 11 JR -1 5 PH 60 AR WI MA LL MG CY IA M TA OF F BL ET CY NT HI AN A 00 04 04 0 12 30 EA 22 MC Ac 59 -1 -[address] 05 KE ti 10 0- 0- 00 SI 59 MS ve 54 20 20 0 DE E 00 11 11 JR 1 PH AR WI MA LL CY IA M OF F CY NT HI AN A CL 00 04 04 0 90 30 EA 22 MC Ac ON 09 -0 -[address] 01 KE ti AZ 30 6- 6- 00 SI 40 MS ve EP 83 20 20 DE E AM 20 11 11 JR 1 PH 0. AR [place] 5 MA LL MG CY IA M TA OF F BL ET CY NT HI AN A HY 00 04 04 2 30 30 EA [address] 59 -0 -[address] 97 KE ti OC 10 4- 4- 00 SI 70 MS ve HL 34 20 20 DE E [...] DE TA RA 10 11 11 D MS 5 PH CA DE AR MP 5 MA BE CY LL MG K OF TA BL CY ET NT HI AN A NE 00 02 03 2 30 30 EA 21 MC Ac XI 18 -2 -[address] 33 KE ti UM 65 1- 2- 00 SI 04 MS ve 04 [address] 03 11 11 JR 1 PH 40 AR WI MA LL MG CY IA M CA OF F PS UL CY E NT HI AN A SI 16 02 03 2 30 30 EA 21 MC Ac MV 71 -1 -[address] 26 KE ti 40 6- 2- 00 SI 51 MS ve TA 68 20 20 DE E [...] RG 80 3- 9- 00 SI 32 MS ve E 48 20 20 DE E 10 91 10 11 JR -1 5 PH 60 AR WI MA LL MG CY IA M TA OF F BL ET CY NT HI AN A MD 00 01 03 2 20 5 EA 20 MC Ac OM 78 -1 -[address] 84 KE ti ET 11 7- 9- 00 SI 38 MS ve NG 83 20 20 DE E ZI 01 11 11 JR NE 0 PH AR WI 25 MA LL CY IA MG M OF F TA BL CY ET NT HI AN A CL 00 03 03 0 90 30 EA 21 MC Ac ON 09 -0 -[address] 58 KE ti AZ 30 7- 7- 00 SI 91 MS ve EP 83 20 20 DE E AM 20 11 11 JR 1 PH 0. AR [place] 5 MA LL MG CY IA M TA OF F BL ET CY NT HI AN A HY 00 12 03 2 30 30 EA [address] 59 -2 -[address] 58 KE ti OC 10 9 4 00 SI 00 MS ve HL 34 20 20 DE E [...] 33 KE ti UM 65 SI 04 MS ve 04 [address] 03 11 11 JR 1 PH 40 AR [place] MA LL MG CY IA M CA OF F PS UL CY E NT HI AN A FL 00 01 02 1 7. 7 EA 20 MC Ac UC 17 -1 -[address] 81 KE ti ON 25 5- 6- 0 SI 97 MS ve AZ 41 20 20 DE E OL 14 11 11 JR E 6 PH 10 AR WI 0 MA LL MG CY IA M TA OF F BL ET CY NT HI AN A SI 16 02 02 2 30 30 EA 21 MC Ac MV 71 -1 -[address] 26 KE ti 40 6 6- 00 SI 51 MS ve TA 68 20 20 DE E TI 40 11 11 JR N 3 PH 40 AR WI MA LL MG CY IA M TA OF F BL ET CY NT HI AN A [place] 00 01 02 1 60 4 EA [address] 16 -1 -[address] 84 KE ti AT 80 7- 5- 00 SI 39 MS ve IN 08 20 20 DE E -T 16 11 11 JR RI 0 PH AM AR WI CI MA LL NO CY IA LO M NE OF F CR CY EA NT M HI AN A 00 02 02 0 12 30 EA 21 MC Ac 59 -1 -[address] 20 KE ti 10 SI 16 MS ve 54 20 20 0 DE E 00 11 11 JR 1 PH AR WI MA LL CY IA M OF F CY NT HI AN A CL 00 12 02 2 90 30 EA 20 MC Ac ON 09 -0 -[address] 32 KE ti AZ 30 9- 7- 00 SI 83 MS ve EP 83 20 20 DE E AM 20 10 11 JR 1 PH 0. AR [place] 5 MA LL MG CY IA M TA OF F BL ET CY NT HI AN A EX 00 12 02 3 30 30 EA 20 MC Ac FO 07 -0 -[address] 24 KE ti RG 80 3- 5- 00 SI 32 MS ve E 48 20 20 DE E 10 91 10 11 JR -1 5 PH 60 AR [place] MA LL MG CY IA M TA OF F BL ET CY NT HI AN A HY 00 12 01 2 30 30 EA [address] 59 -2 -[address] 58 KE ti OC 10 9- 0- 00 SI 00 MS ve HL 34 20 20 DE E [...] UM 65 8- 0- 00 SI 05 MS ve 04 [address] 03 10 11 JR 1 PH 40 AR [place] MA LL MG CY IA M CA OF F PS UL CY E NT HI AN A MD 00 01 01 2 20 5 EA 20 MC Ac OM 78 -1 -[address] 84 KE ti ET 11 7- 7- 00 SI 38 MS ve NG 83 20 20 DE E ZI 01 11 11 JR NE 0 PH AR WI 25 MA LL CY IA MG M OF F TA BL CY ET NT HI AN A [place] 00 01 01 1 60 4 EA [address] 16 -1 -[address] 84 KE ti AT 80 7- 7- 00 SI 39 MS ve IN 08 20 20 DE E [...] ON 25 5- 5- 0 SI 97 MS ve AZ 41 20 20 DE E OL 14 11 11 JR E 6 PH 10 AR WI 0 MA LL MG CY IA M TA OF F BL ET CY NT HI AN A 00 01 01 0 30 15 EA 20 MC Ac 14 -1 -[address] 81 KE ti 31 5- 5- 00 SI 98 MS ve 47 20 20 DE E 70 11 11 JR 5 PH AR WI MA LL CY IA M OF F CY NT HI AN A SI 16 12 01 1 30 30 EA 20 MC Ac MV 71 -1 -[address] 42 KE ti 40 6- 5- 00 SI 49 MS ve TA 68 20 20 DE E TI 40 10 11 JR N 3 PH 40 AR [place] MA LL MG CY IA M TA OF F BL ET CY NT HI AN A MU 00 01 01 0 22 4 EA 20 MC Ac PI 09 -1 -[address] 81 KE ti RO 31 4- 4- 00 SI 11 MS ve CI 01 20 20 DE E [...] AM 60 0- 0- 00 SI 99 MS ve ET 27 20 20 DE E [...] RO 31 0- 0- 00 SI 00 MS ve CI 01 20 20 DE E N 04 11 11 JR 2% 2 PH AR WI OI MA LL NT CY IA ME M NT OF F CY NT HI AN A CL 00 12 01 2 90 30 EA 20 MC Ac ON 09 -0 -[address] 32 KE ti AZ 30 9- 8- 00 SI 83 MS ve EP 83 20 20 DE E AM 20 10 11 JR 1 PH 0. AR [place] 5 MA LL MG CY IA M TA OF F BL ET CY NT HI AN A EX 00 12 01 3 30 30 EA 20 MC Ac FO 07 -0 -[address] 24 KE ti RG 80 3- 4- 00 SI 32 MS ve E 48 20 20 DE E 10 91 10 11 JR -1 5 PH 60 AR [place] MA LL MG CY IA M TA OF F BL ET CY NT HI AN A HY 00 12 12 2 30 30 EA [address] 59 -2 -[address] 58 KE ti OC 10 9 SI 00 MS ve HL 34 20 20 DE E [...] UM 65 8- 0- 00 SI 05 MS ve 04 [address] 03 10 10 JR 1 PH 40 AR [place] MA LL MG CY IA M CA OF F PS UL CY E NT HI AN A SI 16 12 12 1 30 30 EA 20 MC Ac MV 71 -1 -[address] 42 KE ti 40 6- 6- 00 SI 49 MS ve TA 68 20 20 DE E TI 40 10 10 JR N 3 PH 40 AR [place] MA LL MG CY IA M TA OF F BL ET CY NT HI AN A CL 00 12 12 2 90 30 EA 20 MC Ac ON 09 -0 -[address] 32 KE ti AZ 30 SI 83 MS ve EP 83 20 20 DE E AM 20 10 10 JR 1 PH 0. AR [place] 5 MA LL MG CY IA M TA OF F BL ET CY NT HI AN A EX 00 12 12 3 30 30 EA 20 MC Ac FO 07 -0 -[address] 24 KE ti RG 80 3- 3- 00 SI 32 MS ve E 48 20 20 DE E 10 91 10 10 JR -1 5 PH 60 [place] MA LL MG CY IA M TA OF F BL ET CY NT HI AN A HY 00 09 11 2 30 30 EA [address] 59 -2 -[address] 23 KE ti OC 10 SI 17 MS ve HL 34 20 20 DE E [...] UM 65 8- 0- 00 SI 05 MS ve 04 [address] 03 10 10 JR 1 PH 40 AR [place] MA LL MG CY IA M CA OF F PS UL CY E NT HI AN A SI 16 08 11 3 30 30 EA 18 MC Ac MV 71 -0 -[address] 64 KE ti 40 9- 5- 00 SI 89 MS ve TA 68 20 20 DE E TI 40 10 10 JR N 3 PH 40 AR [place] MA LL MG CY IA M TA OF F BL ET CY NT HI AN A CL 00 11 11 0 90 30 EA 19 MC Ac ON 09 -0 -[address] 88 KE ti AZ 30 8- 8- 00 SI 62 MS ve EP 83 20 20 DE E AM 20 10 10 JR 1 PH 0. AR [place] 5 MA LL MG CY IA M TA OF F BL ET CY NT HI AN A EX 00 05 11 5 30 30 EA 17 MC Ac FO 07 -2 -[address] 70 KE ti RG 80 2- 3- 00 SI 24 MS ve E 48 20 20 DE E 10 91 10 10 JR -1 5 PH 60 AR [place] MA LL MG CY IA M TA OF F BL ET CY NT HI AN A HY 00 09 10 2 30 30 EA [address] 59 -2 -[address] 23 KE ti OC 10 1- 3- 00 SI 17 MS ve HL 34 20 20 DE E [...] TH 81 8- 3- 00 SI 58 MS ve YR 80 20 20 DE E OX 30 10 10 JR IN 1 PH E AR [place] 50 MA LL CY IA MC M G OF F TA BL CY ET NT HI AN A NE 00 10 10 3 30 30 EA 19 MC Ac XI 18 -1 -[address] 59 KE ti UM 65 8- 8- 00 SI 05 MS ve 04 [address] 03 10 10 JR 1 PH 40 AR [place] MA LL MG CY IA M CA OF F PS UL CY E NT HI AN A SI 16 08 10 3 30 30 EA 18 MC Ac MV 71 -0 -[address] 64 KE ti 40 9- 5- 00 SI 89 MS ve TA 68 20 20 DE E TI 40 10 10 JR N 3 PH 40 AR [place] MA LL MG CY IA M TA OF F BL ET CY NT HI AN A 00 10 10 0 12 30 EA 19 MC Ac 59 -1 -[address] 53 KE ti 10 3- 3- 00 SI 11 MS ve 54 20 20 0 DE E 00 10 10 JR 1 PH AR [place] MA LL CY IA M OF F CY NT HI AN A CL 00 10 10 0 90 30 EA 19 MC Ac ON 09 -0 -[address] 46 KE ti AZ 30 8- 8- 00 SI 44 MS ve EP 83 20 20 DE E AM 20 10 10 JR 1 PH 0. AR [place] 5 MA LL MG CY IA M TA OF F BL ET CY NT HI AN A EX 00 05 10 5 30 30 EA 17 MC Ac FO 07 -2 -[address] 70 KE ti RG 80 2- 2- 00 SI 24 MS ve E 48 20 20 DE E 10 91 10 10 JR -1 5 PH 60 AR [place] MA LL MG CY IA M TA OF F BL ET CY NT HI AN A GALLAGHER 53 09 09 0 20 10 EA 19 MC Ac LF 74 -2 -[address] 28 KE ti AM 60 4- 4- 00 SI 32 MS ve ET 27 20 20 DE E [...] TH 81 8- 1- 00 SI 58 MS ve YR 80 20 20 DE E OX 30 10 10 JR IN 1 PH E [place] 50 MA LL CY IA MC M G OF F TA BL CY ET NT HI AN A HY 00 09 09 2 30 30 EA [address] 59 -2 -[address] 23 KE ti OC 10 1- 1- 00 SI 17 MS ve HL 34 20 20 DE E OR 70 10 10 JR OT 1 PH HI AR [place] MA LL ID CY IA E M 12 OF F .5 CY MG NT HI CP AN A SI 16 08 09 3 30 30 EA 18 Ac MV 71 -0 -[address] 64 KE ti 40 9- 4- 00 SI 89 MS ve TA 68 20 20 DE E TI 40 10 10 JR N 3 PH 40 AR [place] MA LL MG CY IA M TA OF F BL ET CY NT HI AN A 00 09 09 0 12 30 EA 19 Ac 59 -1 -[address] 10 KE ti 10 3- 3- 00 SI 99 MS ve 54 20 20 0 DE E 00 10 10 JR 1 PH AR [place] MA LL CY IA M OF F CY NT HI AN A CL 00 09 09 0 90 30 EA 19 Ac ON 09 -0 -[address] 04 KE ti AZ 30 8 8 SI 54 MS ve EP 83 20 20 DE E AM 20 10 10 JR 1 PH 0. AR [place] 5 MA LL MG CY IA M TA OF F BL ET CY NT HI AN A EX 00 05 09 5 30 30 EA 17 Ac FO 07 -2 -[address] 70 KE ti RG 80 2- 1- 00 SI 24 MS ve E 48 20 20 DE E [...] OC 10 7- 8- 00 SI 77 MS ve HL 34 20 20 DE E OR 70 10 10 JR OT 1 PH HI AR [place] MA LL ID CY IA E M 12 OF F .5 CY MG NT HI CP AN A LE 00 08 08 2 30 30 EA 18 Ac VO 37 -1 -[address] 75 KE ti TH 81 8- 8- 00 SI 58 MS ve YR 80 20 20 DE E OX 30 10 10 JR IN 1 PH E [place] 50 MA LL CY IA MC M G OF F TA BL CY ET NT HI AN A 00 08 08 0 12 30 EA 18 MC Ac 59 -1 -[address] 71 KE ti 10 4- 4- 00 SI 12 MS ve 54 20 20 0 DE E 00 10 10 JR 1 PH AR [place] MA LL CY IA M OF F CY NT HI AN A CL 00 08 08 0 90 30 EA 18 MC Ac ON 09 -0 -[address] 64 KE ti AZ 30 9 9 00 SI 45 MS ve EP 83 20 20 DE E AM 20 10 10 JR 1 PH 0. [place] 5 MA LL MG CY IA M TA OF F BL ET CY NT HI AN A NE 00 08 08 3 60 30 EA 18 MC Ac XI 18 -0 -[address] 64 KE ti UM 65 9- 9 00 SI 88 MS ve 04 [address] 03 10 10 JR 1 PH 40 AR [place] MA LL MG CY IA M CA OF F PS UL CY E NT HI AN A SI 16 08 08 3 30 30 EA 18 MC Ac MV 71 -0 -[address] 64 KE ti 40 9 9 SI 89 MS ve TA 68 20 20 DE E TI 40 10 10 JR N 3 PH 40 AR [place] MA LL MG CY IA M TA OF F BL ET CY NT HI AN A EX 00 05 07 5 30 30 EA 17 MC Ac FO 07 -2 -[address] 70 KE ti RG 80 2- 8- 00 SI 24 MS ve E 48 20 20 DE E 10 91 10 10 JR -1 5 PH 60 AR [place] MA LL MG CY IA M TA OF F BL ET CY NT HI AN A LE 00 04 07 3 30 30 EA 17 MC Ac VO 37 -0 -[address] 10 KE ti TH 81 7- 0- 00 SI 12 MS ve YR 80 20 20 DE E OX 30 10 10 JR IN 1 PH E [place] 50 MA LL CY IA MC M G OF F TA BL CY ET NT HI AN A HY 00 05 07 3 30 30 EA [address] 59 -0 -[address] 50 KE ti OC 10 7- 0- 00 SI 77 MS ve HL 34 20 20 DE E [...] AZ 30 8- 8- 00 SI 89 MS ve EP 83 20 20 DE E AM 20 10 10 JR 1 PH 0. [place] 5 MA LL MG CY IA M TA OF F BL ET CY NT HI AN A CE 00 07 07 0 21 7 EA 18 AL Ac PH 09 -0 -[address] 26 LR ti AL 33 8- 8 00 SI 99 AN ve EX 14 20 20 DE IN 70 10 10 JR 5 PH 50 AR [place] 0 MA AR MG CY LE S CA OF F PS UL CY E NT HI AN A SI 16 02 07 4 30 30 EA 16 MC Ac MV 72 -1 -[address] 35 KE ti 90 2- 3 00 SI 46 MS ve TA 00 20 20 DE E TI 61 10 10 JR N 7 PH 40 AR [place] MA LL MG CY IA M TA OF F BL ET CY NT HI AN A NE 00 03 07 3 30 30 EA 16 MC Ac XI 18 -1 -[address] 82 KE ti UM 65 7- 3 00 SI 12 MS ve 04 [address] 03 10 10 JR 1 PH 40 AR [place] MA LL MG CY IA M CA OF F PS UL CY E NT HI AN A EX 00 05 06 5 30 30 EA 17 MC Ac FO 07 -2 -[address] 70 KE ti RG 80 2 7 00 SI 24 MS ve E 48 20 20 DE E 10 91 10 10 JR -1 5 PH 60 AR [place] MA LL MG CY IA M TA OF F BL ET CY NT HI AN A 00 06 06 0 12 30 EA 17 MC Ac 59 -1 -[address] 97 KE ti 10 4- 4- 00 SI 41 MS ve 54 20 20 0 DE E 00 10 10 JR 1 PH AR [place] MA LL CY IA M OF F CY NT HI AN A LE 00 04 06 3 30 30 EA 17 MC Ac VO 37 -0 -[address] 10 KE ti TH 81 7- 1- 00 SI 12 MS ve YR 80 20 20 DE E OX 30 10 10 JR IN 1 PH E AR [place] 50 MA LL CY IA MC M G OF F TA BL CY ET NT HI AN A HY 00 05 06 3 30 30 EA [address] 59 -0 -[address] 50 KE ti OC 10 7- 1- 00 SI 77 MS ve HL 34 20 20 DE E [...] ST 87 KE ti AZ 30 5- 5 00 SI 85 MS ve EP 83 20 20 DE E AM 20 10 10 JR 1 PH 0. [place] 5 MA LL MG CY IA M TA OF F BL ET CY NT HI AN A NE 00 03 05 3 30 30 EA 16 MC Ac XI 18 -1 -[address] 82 KE ti UM 65 7 00 SI 12 MS ve 04 [address] 03 10 10 JR 1 PH 40 [place] MA LL MG CY IA M CA OF F PS UL CY E NT HI AN A SI 65 02 05 3 30 30 EA 16 MC Ac MV 86 -1 -[address] 35 KE ti 20 SI 46 MS ve TA 05 20 20 DE E TI 33 10 10 JR N 0 PH 40 AR [place] MA LL MG CY IA M TA OF F BL ET CY NT HI AN A EX 00 05 05 5 30 30 EA 17 MC Ac FO 07 -2 -[address] 70 KE ti RG 80 2- 2- 00 SI 24 MS ve E 48 20 20 DE E 10 91 10 10 JR -1 5 PH 60 AR [place] MA LL MG CY IA M TA OF F BL ET CY NT HI AN A 00 05 05 0 12 30 EA 17 MC Ac 59 -1 -[address] 61 KE ti 10 5 SI 05 MS ve 54 20 20 0 DE E 00 10 10 JR 1 PH AR [place] MA LL CY IA M OF F CY NT HI AN A LE 00 04 05 3 30 30 EA 17 MC Ac VO 37 -0 -[address] 10 KE ti TH 81 7 7 SI 12 MS ve YR 80 20 20 DE E OX 30 10 10 JR IN 1 PH E [place] 50 MA LL CY IA MC M G OF F TA BL CY ET NT HI AN A HY 00 05 05 3 30 30 EA [address] 59 -0 -[address] 50 KE ti OC 10 7- 7 00 SI 77 MS ve HL 34 20 20 DE E [...] AZ 30 6- 6- 00 SI 98 MS ve EP 83 20 20 DE E AM 20 10 10 JR 1 PH 0. [place] 5 MA LL MG CY IA M TA OF F BL ET CY NT HI AN A SI 65 02 04 3 30 30 EA 16 MC Ac MV 86 -1 -[address] 35 KE ti 20 2- 3- 00 SI 46 MS ve TA 05 20 20 DE E TI 33 10 10 JR N 0 PH 40 AR [place] MA LL MG CY IA M TA OF F BL ET CY NT HI AN A NE 00 03 04 3 30 30 EA 16 MC Ac XI 18 -1 -[address] 82 KE ti UM 65 7- 3 00 SI 12 MS ve 04 [address] 03 10 10 JR 1 PH 40 [place] MA LL MG CY IA M CA OF F PS UL CY E NT HI AN A 00 04 04 0 12 30 EA 17 MC Ac 59 -1 -[address] 20 KE ti 10 5 5 SI 16 MS ve 54 20 20 0 DE E 00 10 10 JR 1 PH AR [place] MA LL CY IA M OF F CY NT HI AN A CL 00 04 04 0 60 30 EA 17 MC Ac ON 09 -[address] 20 KE ti AZ 30 5- 5 00 SI 17 MS ve EP 83 20 20 DE E AM 20 10 10 JR 1 PH 0. [place] 5 MA LL MG CY IA M TA OF F BL ET CY NT HI AN A HY 00 01 04 3 30 30 EA [address] 59 -0 -[address] 81 KE ti OC 10 4 7 SI 52 MS ve HL 34 20 20 DE E OR 70 10 10 JR OT 1 PH HI AR [place] MA LL ID CY IA E M 12 OF F .5 CY MG NT HI CP AN A LE 00 04 04 3 30 30 EA 17 MC Ac VO 37 -0 -[address] 10 KE ti TH 81 7 SI 12 MS ve YR 80 20 20 DE E OX 30 10 10 JR IN 1 PH E [place] 50 MA LL CY IA MC M G OF F TA BL CY ET NT HI AN A SI 65 02 03 3 30 30 EA 16 MC Ac MV 86 -1 -[address] 35 KE ti 20 2 7 SI 46 MS ve TA 05 20 20 DE E TI 33 10 10 JR N 0 PH 40 AR [place] MA LL MG CY IA M TA OF F BL ET CY NT HI AN A CL 00 03 03 0 60 30 EA 16 MC Ac ON [address] .[address] 81 KE ti AZ 30 7 7 SI 84 MS ve EP 83 20 20 DE E AM 20 10 10 JR 1 PH 0. [place] 5 MA LL MG CY IA M TA OF F BL ET CY NT HI AN A NE 00 03 03 3 30 30 EA 16 MC Ac XI 18 -1 -[address] 82 KE ti UM 65 7 SI 12 MS ve 04 [address] 03 10 10 JR 1 PH 40 [place] MA LL MG CY IA M CA OF F PS UL CY E NT HI AN A 00 03 03 0 12 30 EA 16 MC Ac 59 -1 -[address] 81 KE ti 10 7 SI 83 MS ve 54 20 20 0 DE E 00 10 10 JR 1 PH AR [place] MA LL CY IA M OF F CY NT HI AN A LE 00 12 03 3 30 30 EA 15 MC Ac VO 37 -0 -[address] 38 KE ti TH 81 2 8 SI 79 MS ve YR 80 20 20 DE E OX 30 09 10 JR IN 1 PH E [place] 50 MA LL CY IA MC M G OF F TA BL CY ET NT HI AN A HY 00 01 03 3 30 30 EA [address] 59 -0 -[address] 81 KE ti OC 10 8 SI 52 MS ve HL 34 20 20 DE E OR 70 10 10 JR OT 1 PH HI AR [place] MA LL ID CY IA E M 12 OF F .5 CY MG NT HI CP AN A CL 00 02 02 00 60 30 EA 16 MC Ac ON [address] 37 KE ti AZ 30 5 6 SI 94 MS ve EP 83 20 20 DE E AM 20 10 10 JR 1 PH 0. [place] 5 MA LL MG CY IA M TA OF F BL CY ET NT HI AN A 00 02 02 00 12 30 EA 16 MC Ac 59 -1 -[address] 37 KE ti 10 5 6 SI 95 MS ve 54 20 20 0 DE E 00 10 10 JR 1 PH AR [place] MA LL CY IA M OF F CY NT HI AN A SI 65 02 02 00 30 30 EA 16 MC Ac MV 86 -1 -[address] 35 KE ti 20 2- 6- 00 SI 46 MS ve TA 05 20 20 DE E TI 33 10 10 JR N 0 PH 40 AR [place] MA LL MG CY IA M TA OF F BL CY ET NT HI AN A NE 00 08 02 05 30 30 EA 14 MC Ac XI 18 -3 -[address] 06 KE ti UM 65 1 SI 00 MS ve 04 [address] 03 09 10 JR 1 PH 40 [place] MA LL MG CY IA M CA OF F PS CY UL NT E HI AN A LE 00 12 02 02 30 30 EA 15 MC Ac VO 37 -0 -[address] 38 KE ti TH 81 2 SI 79 MS ve YR 80 20 20 DE E OX 30 09 10 JR IN 1 PH E [place] 50 MA LL CY IA MC M G OF F TA CY BL NT ET HI AN A HY 00 02 01 30 30 EA [address] 59 -0 -[address] 81 KE ti OC 10 SI 52 MS ve HL 34 20 20 DE E OR 70 10 10 JR OT 1 PH HI AR [place] MA LL ID CY IA E M 12 OF F .5 CY NT MG HI AN CP A CL 00 11 28 00 60 30 EA 15 MC Ac ON 09 -1 -[address] 95 KE ti AZ 30 4 8 SI 83 MS ve EP 83 20 20 DE E AM 20 10 10 JR 1 PH 0. [place] 5 MA LL MG CY IA M TA OF F BL CY ET NT HI AN A SI 65 09 01 03 30 30 EA 14 MC Ac MV 86 -3 -[address] 49 KE ti 20 0- 8- 00 SI 48 MS ve TA 05 20 20 DE E TI 33 09 10 JR N 0 PH 40 AR [place] MA LL MG CY IA M TA OF F BL CY ET NT HI AN A 00 11 28 00 12 30 EA 15 MC Ac 59 -1 -[address] 95 KE ti 10 4- 8 00 SI 82 MS ve 54 20 20 0 DE E 00 10 10 JR 1 PH AR [place] MA LL CY IA M OF F CY NT HI AN A LE 00 12 01 01 30 30 EA 15 MC Ac VO 37 -0 -[address] 38 KE ti TH 81 2- 4- 00 SI 79 MS ve YR 80 20 20 DE E OX 30 09 10 JR IN 1 PH E [place] 50 MA LL CY IA MC M G OF F TA CY BL NT ET HI AN A HY 00 01 01 00 30 30 EA [address] 59 -0 -[address] 81 KE ti OC 10 4- 4- 00 SI 52 MS ve HL 34 20 20 DE E [...] UM 65 1- 4- 00 SI 00 MS ve 04 [address] 03 09 10 JR 1 PH 40 AR [place] MA LL MG CY IA M CA OF F PS CY UL NT E HI AN A CL 00 12 12 00 60 30 EA 15 MC Ac ON 09 -1 -[address] 56 KE ti AZ 30 4 SI 09 MS ve EP 83 20 20 DE E AM 20 09 09 JR 1 PH 0. [place] 5 MA LL MG CY IA M TA OF F BL CY ET NT HI AN A 00 12 12 00 12 30 EA 15 MC Ac 59 -1 -[address] 56 KE ti 10 4 SI 08 MS ve 54 20 20 0 DE E 00 09 09 JR 1 PH AR [place] MA LL CY IA M OF F CY NT HI AN A LE 00 12 12 00 30 30 EA 15 MC Ac VO 37 -0 -[address] 38 KE ti TH 81 2- 7- 00 SI 79 MS ve YR 80 20 20 DE E OX 30 09 09 JR IN 1 PH E AR [place] 50 MA LL CY IA MC M G OF F TA CY BL NT ET HI AN A NE 00 08 12 03 30 30 EA 14 MC Ac XI 18 -3 -[address] 06 KE ti UM 65 1- 7- 00 SI 00 MS ve 04 [address] 03 09 09 JR 1 PH 40 AR [place] MA LL MG CY IA M CA OF F PS CY UL NT E HI AN A HY 00 07 12 04 30 30 EA [address] 59 -1 -[address] 47 KE ti OC 10 4 7 00 SI 77 MS ve HL 34 20 20 DE E OR 70 09 09 JR OT 1 PH HI AR [place] MA LL ID CY IA E M 12 OF F .5 CY NT MG HI AN CP A SI 65 09 12 02 30 30 EA 14 MC Ac MV 86 -3 -[address] 49 KE ti 20 0- 7 00 SI 48 MS ve TA 05 20 20 DE E TI 33 09 09 JR N 0 PH 40 AR [place] MA LL MG CY IA M TA OF F BL CY ET NT HI AN A CL 00 11 12 00 60 30 EA 15 MC Ac ON 09 -1 -[address] 13 KE ti AZ 30 4 3 00 SI 29 MS ve EP 83 20 20 DE E AM 20 09 09 JR 1 PH 0. [place] 5 MA LL MG CY IA M TA OF F BL CY ET NT HI AN A SI 65 09 11 01 30 30 EA 14 MC Ac MV 86 -3 -[address] 49 KE ti 20 0- 9 00 SI 48 MS ve TA 05 20 20 DE E TI 33 09 09 JR N 0 PH 40 AR [place] MA LL MG CY IA M TA OF F BL CY ET NT HI AN A NE 00 08 11 02 30 30 EA 14 MC Ac XI 18 -3 -[address] 06 KE ti UM 65 SI 00 MS ve 04 [address] 03 09 09 JR 1 PH 40 [place] MA LL MG CY IA M CA OF F PS CY UL NT E HI AN A LE 00 07 11 03 30 30 EA 13 MC Ac VO 37 -2 -[address] 63 KE ti TH 81 7 SI 09 MS ve YR 80 20 20 DE E OX 30 09 09 JR IN 1 PH E [place] 50 MA LL CY IA MC M G OF F TA CY BL NT ET HI AN A HY 00 07 11 03 30 30 EA [address] 59 -1 -[address] 47 KE ti OC 10 4 5 SI 77 MS ve HL 34 20 20 DE E OR 70 09 09 JR OT 1 PH HI AR [place] MA LL ID CY IA E M 12 OF F .5 CY NT MG HI AN CP A 00 10 10 00 12 30 EA 14 MC Ac 59 -1 -[address] 69 KE ti 10 4 2 SI 56 MS ve 54 20 20 0 DE E 00 09 09 JR 1 PH AR [place] MA LL CY IA M OF F CY NT HI AN A CL 00 10 10 00 60 30 EA 14 MC Ac ON -[address] 69 KE ti AZ 30 4- 2- 00 SI 57 MS ve EP 83 20 20 DE E AM 20 09 09 JR 1 PH 0. [place] 5 MA LL MG CY IA M TA OF F BL CY ET NT HI AN A NE 00 08 10 01 30 30 EA 14 MC Ac XI 18 -3 -[address] 06 KE ti UM 65 1- 2- 00 SI 00 MS ve 04 [address] 03 09 09 JR 1 PH 40 AR [place] MA LL MG CY IA M CA OF F PS CY UL NT E HI AN A LE 00 07 10 02 30 30 EA 13 MC Ac VO 37 -2 -[address] 63 KE ti TH 81 7- 8- 00 SI 09 MS ve YR 80 20 20 DE E OX 30 09 JR IN 1 PH E [place] 50 MA LL CY IA MC M G OF F TA CY BL NT ET HI AN A SI 65 09 10 00 30 30 EA 14 MC Ac MV 86 -3 -[address] 49 KE ti 20 0- 8- 00 SI 48 MS ve TA 05 20 20 DE E TI 33 09 09 JR N 0 PH 40 AR [place] MA LL MG CY IA M TA OF F BL CY ET NT HI AN A CL 00 09 09 00 60 30 EA 14 Ac ON -[address] 23 KE ti AZ 30 4- 4- 00 SI 85 MS ve EP 83 20 20 DE E AM 20 09 JR 1 PH 0. [place] 5 MA LL MG CY IA M TA OF F BL CY ET NT HI AN A 00 09 09 00 12 30 EA 14 MC Ac 59 -1 -[address] 23 KE ti 10 4- 4- 00 SI 84 MS ve 54 20 20 0 DE E 00 09 09 JR 1 PH AR [place] MA LL CY IA M OF F CY NT HI AN A HY 00 07 09 02 30 30 EA [address] 59 -1 -[address] 47 KE ti OC 10 4- 4- 00 SI 77 MS ve HL 34 20 20 DE E [...] TH 81 7- 0- 00 SI 09 MS ve YR 80 20 20 DE E OX 30 09 09 JR IN 1 PH E AR [place] 50 MA LL CY IA MC M G OF F TA CY BL NT ET HI AN A NE 00 08 09 00 30 30 EA 14 MC Ac XI 18 -3 -[address] 06 KE ti UM 65 1- 0- 00 SI 00 MS ve 04 [address] 03 09 09 JR 1 PH 40 AR [place] MA LL MG CY IA M CA OF F PS CY UL NT E HI AN A CL 00 08 08 00 60 30 EA 13 MC Ac ON 09 -1 -[address] 84 KE ti AZ 30 4- 7- 00 SI 73 MS ve EP 83 20 20 DE E AM 20 09 09 JR 1 PH 0. [place] 5 MA LL MG CY IA M TA OF F BL CY ET NT HI AN A SI 65 05 08 03 30 30 EA 12 MC Ac MV 86 -0 -[address] 56 KE ti 20 1- 7- 00 SI 59 MS ve TA 05 20 20 DE E TI 33 09 09 JR N 0 PH 40 AR [place] MA LL MG CY IA M TA OF F BL CY ET NT HI AN A HY 00 07 08 01 30 30 EA [address] 59 -1 -[address] 47 KE ti OC 10 4- 7- 00 SI 77 MS ve HL 34 20 20 DE E OR 70 09 09 JR OT 1 PH HI AR [place] MA LL ID CY IA E M 12 OF F .5 CY NT MG HI AN CP A 00 08 08 00 12 30 EA 13 MC Ac 59 -1 -[address] 84 KE ti 10 4- 7- 00 SI 74 MS ve 54 20 20 0 DE E 00 09 09 JR 1 PH AR [place] MA LL CY IA M OF F CY NT HI AN A LE 00 07 08 00 30 30 EA 13 MC Ac VO 37 -2 -[address] 63 KE ti TH 81 7- 3- 00 SI 09 MS ve YR 80 20 20 DE E OX 30 09 09 JR IN 1 PH E AR [place] 50 MA LL CY IA MC M G OF F TA CY BL NT ET HI AN A NE 00 04 08 03 30 30 EA 12 MC Ac XI 18 -1 -[address] 35 KE ti UM 65 5- 3- 00 SI 57 MS ve 04 [address] 03 09 09 JR 1 PH 40 AR [place] MA LL MG CY IA M CA OF F PS CY UL NT E HI AN A SI 65 05 07 02 30 30 EA 12 MC Ac MV 86 -0 -[address] 56 KE ti 20 1- 0- 00 SI 59 MS ve TA 05 20 20 DE E TI 33 09 09 JR N 0 PH 40 AR [place] MA LL MG CY IA M TA OF F BL CY ET NT HI AN A 00 07 07 00 12 30 EA 13 MC Ac 59 -1 -[address] 50 KE ti 10 5- 0- 00 SI 62 MS ve 54 20 20 0 DE E 00 09 09 JR 1 PH AR [place] MA LL CY IA M OF F CY NT HI AN A CL 00 05 07 02 60 30 EA 12 MC Ac ON 09 -1 -[address] 75 KE ti AZ 30 5- 0- 00 SI 71 MS ve EP 83 20 20 DE E AM 20 09 09 JR 1 PH 0. [place] 5 MA LL MG CY IA M TA OF F BL CY ET NT HI AN A HY 00 07 07 00 30 30 EA [address] 59 -1 -[address] 47 KE ti OC 10 4- 0- 00 SI 77 MS ve HL 34 20 20 DE E [...] UM 65 5- 6- 00 SI 57 MS ve 04 [address] [...] BL NT ET HI AN A ME 16 06 07 00 90 30 EA 13 MC Ac TO 71 -1 -[address] 13 KE ti CL 40 3- 2- 00 SI 20 MS ve OP 06 20 20 DE E RA 20 09 09 JR MS 6 PH DE AR WI MA LL 10 CY IA M MG OF F CY TA NT BL HI ET AN A HY 00 05 07 01 30 30 EA [address] 59 -1 -[address] 72 KE ti OC 10 2- 2- 00 SI 08 MS ve HL 34 20 20 DE E OR 70 09 09 JR OT 1 PH HI AR [place] MA LL ID CY IA E M 12 OF F .5 CY NT MG HI AN CP A 00 06 07 00 12 30 EA 13 MC Ac 59 -1 -[address] 16 KE ti 10 6- 2- 00 SI 06 MS ve 54 20 20 0 DE E 00 09 09 JR 1 PH AR [place] MA LL CY IA M OF F CY NT HI AN A CL 00 05 07 01 60 30 EA 12 MC Ac ON 09 -1 -[address] 75 KE ti AZ 30 5- 2- 00 SI 71 MS ve EP 83 20 20 DE E AM 20 09 09 JR 1 PH 0. [place] 5 MA LL MG CY IA M TA OF F BL CY ET NT HI AN A SI 65 05 06 01 30 30 EA 12 MC Ac MV 86 -0 -[address] 56 KE ti 20 1- 8 SI 59 MS ve TA 05 20 20 DE E TI 33 09 09 JR N 0 PH 40 AR [place] MA LL MG CY IA M TA OF F BL CY ET NT HI AN A NE 00 04 06 01 30 30 EA 12 MC Ac XI 18 -1 -[address] 35 KE ti UM 65 5- 4- 00 SI 57 MS ve 04 [address] 03 09 09 JR 1 PH 40 AR [place] MA LL MG CY IA M CA OF F PS CY UL NT E HI AN A 00 05 06 00 12 30 EA 12 MC Ac 59 -1 -[address] 77 KE ti 10 8- 4- 00 SI 89 MS ve 54 20 20 0 DE E [...] NT ET HI AN A HY 00 05 05 00 30 30 EA [address] 59 -1 -[address] 72 KE ti OC 10 2- 1- 00 SI 08 MS ve HL 34 20 20 DE E OR 70 09 09 JR OT 1 PH HI AR [place] MA LL ID CY IA E M 12 OF F .5 CY NT MG HI AN CP A CL 00 05 05 00 60 30 EA 12 MC Ac ON 09 -[address] 75 KE ti AZ 30 5- 1- 00 SI 71 MS ve EP 83 20 20 DE E AM 20 09 09 JR 1 PH 0. [place] 5 MA LL MG CY IA M TA OF F BL CY ET NT HI AN A ME 60 05 05 00 30 30 EA 12 MC Ac LO 50 -1 -[address] 75 KE ti XI 52 00 SI 72 MS ve CA 55 20 20 DE E M 40 09 09 JR 15 1 PH AR WI MG MA LL CY IA TA M BL OF F ET CY NT HI AN A SI 65 05 05 00 30 30 EA 12 MC Ac MV 86 -0 -[address] 56 KE ti 20 7 SI 59 MS ve TA 05 20 20 DE E TI 33 09 09 JR N 0 PH 40 AR [place] MA LL MG CY IA M TA OF F BL CY ET NT HI AN A ME 49 03 04 01 30 30 EA 11 NG Ac TO 88 -1 -[address] 90 RV ti MD 40 6- 3- 00 SI 94 EY [...] UM 65 5- 3- 00 SI 57 MS ve 04 [address] [...] -1 -[address] 90 RV ti MD 40 6- 6- 00 SI 94 EY [...] ti 20 6- 6- 00 SI 41 MS ve TA 05 20 20 DE E TI 33 08 09 JR N 0 PH 40 AR [place] MA LL MG CY IA M TA OF F BL CY ET NT HI AN A NE 00 03 03 00 30 30 EA 11 MC Ac XI 18 -1 -[address] 83 KE ti UM 65 0- 6- 00 SI 05 MS ve 04 [address] 03 09 09 JR 1 PH 40 AR [place] MA LL MG CY IA M CA OF F PS CY UL NT E HI AN A 00 02 02 00 12 30 EA 11 MC Ac 59 -1 -[address] 48 KE ti 10 6- 6- 00 SI 90 MS ve 54 20 20 0 DE E 00 09 09 JR 1 PH AR [place] MA LL CY IA M OF F CY NT HI AN A ME 49 11 02 03 30 30 EA 10 MC Ac TO 88 -0 -[address] 14 KE ti MD 40 5- 6- 00 SI 65 MS ve OL 40 20 20 DE E OL 50 08 09 JR 1 PH GALLAGHER AR WI CC MA LL CY IA ER M OF F 50 CY NT MG HI AN TA A B CL 00 02 02 00 60 30 EA 11 MC Ac ON 09 -1 -[address] 48 KE ti AZ 30 6- 6- 00 SI 89 MS ve EP 83 20 20 DE E AM 20 09 09 JR 1 PH 0. [place] 5 MA LL MG CY IA M TA OF F BL CY ET NT HI AN A LE 00 01 02 01 30 30 EA 11 MC Ac VO 37 -1 -[address] 07 KE ti TH 81 3- 6- 00 SI 93 MS ve YR 80 20 20 DE E OX 30 09 JR IN 1 PH E [place] 50 MA LL CY IA MC M G OF F TA CY BL NT ET HI AN A SI 65 10 02 04 30 30 EA 99 MC Ac MV 86 -0 -[address] 75 KE ti 20 6- 6- 00 SI 41 MS ve TA 05 20 20 DE E [...] UM 65 6- 2- 00 SI 45 MS ve 04 [address] 03 08 09 JR 1 PH 40 AR [place] MA LL MG CY IA M CA OF F PS CY UL NT E HI AN A LE 00 01 01 00 30 30 EA 11 MC Ac VO 37 -1 -[address] 07 KE ti TH 81 3- 0- 00 SI 93 MS ve YR 80 20 20 DE E [...] CY ET NT HI AN A 00 01 01 00 12 30 EA 11 NG Ac 59 -1 -[address] 14 RV ti 10 9- 0- 00 SI 54 EY ve 54 20 20 0 DE 00 09 09 ANJELICA 1 PH DI AR MA CY OF CY NT HI AN A GALLAGHER [...] NT TA HI BL AN ET A AM 68 01 01 00 30 [...] UM 65 6- 5- 00 SI 45 MS ve 04 [address] 03 08 09 JR 1 PH 40 AR [place] MA LL MG CY IA M CA OF F PS CY UL NT E HI AN A ME 49 11 01 02 30 30 EA 10 MC Ac TO 88 -0 -[address] 14 KE ti MD 40 5- 5- 00 SI 65 MS ve OL 40 20 20 DE E OL 50 08 09 JR 1 PH GALLAGHER AR WI CC MA LL CY IA ER M OF F 50 CY NT MG HI AN TA A B SI 65 10 01 03 30 30 EA 99 MC Ac MV 86 -0 -[address] 75 KE ti 20 6- 5- 00 SI 41 MS ve TA 05 20 20 DE E TI 33 08 09 JR N 0 PH 40 AR [place] MA LL MG CY IA M TA OF F BL CY ET NT HI AN A LE 00 11 01 01 30 30 EA 10 MC Ac VO 37 -1 -[address] 21 KE ti TH 81 0- 1- 00 SI 64 MS ve YR 80 20 20 DE E [...] CY OF CY NT HI AN A 67 12 12 00 20 10 EA [...] NT MG HI AN TA A B 63 12 12 00 10 5 EA [...] -0 -[address] 14 KE ti MD 40 5- 8- 00 SI 65 MS ve OL 40 20 20 DE E OL 50 08 08 JR 1 PH GALLAGHER AR WI CC MA LL CY IA ER M OF F 50 CY NT MG HI AN TA A B SI 65 10 12 02 30 30 EA 99 MC Ac MV 86 -0 -[address] 75 KE ti 20 6- 8- 00 SI 41 MS ve TA 05 20 20 DE E TI 33 08 08 JR N 0 PH 40 AR [place] MA LL MG CY IA M TA OF F BL CY ET NT HI AN A NE 00 08 12 03 30 30 EA 99 MC Ac XI 18 -2 -[address] 22 KE ti UM 65 6- 8- 00 SI 45 MS ve 04 [address] 03 08 08 JR 1 PH 40 AR [place] MA LL MG CY IA M CA OF F PS CY UL NT E HI AN A 60 12 12 00 12 3 EA 10 MC Ac 25 -0 -[address] 54 KE ti 80 4- 8- 00 SI 81 MS ve 23 20 20 0 DE E 91 08 08 JR 6 PH AR [place] MA LL CY IA M OF F CY NT HI AN A CL 00 10 12 01 60 30 EA 99 MC Ac ON -[address] 81 KE ti AZ 30 0- 8- 00 SI 89 MS ve EP 83 20 20 DE E AM 20 08 08 JR 1 PH 0. [place] 5 MA LL MG CY IA M TA OF F BL CY ET NT HI AN A CL 00 10 11 00 60 30 EA 99 MC Ac ON -[address] 81 KE ti AZ 30 0- 0- 00 SI 89 MS ve EP 83 20 20 DE E AM 20 08 08 JR 1 PH 0. AR [place] 5 MA LL MG CY IA M TA OF F BL CY ET NT HI AN A SI 65 10 11 01 30 30 EA 99 MC Ac MV 86 -0 -[address] 75 KE ti 20 6- 0- 00 SI 41 MS ve TA 05 20 20 DE E TI 33 08 08 JR N 0 PH 40 AR WI MA LL MG CY IA M TA OF F BL CY ET NT HI AN A LE 00 11 11 00 30 30 EA 10 MC Ac VO 37 -1 -[address] 21 KE ti TH 81 0- 0- 00 SI 64 MS ve YR 80 20 20 DE E OX 30 08 08 JR IN 1 PH E AR [place] 50 MA LL CY IA MC M G OF F TA CY BL NT ET HI AN A ME 49 11 11 00 30 30 EA 10 MC Ac TO 88 -0 -[address] 14 KE ti MD 40 5- 0- 00 SI 65 MS ve OL 40 20 20 DE E OL 50 08 08 JR 1 PH GALLAGHER AR WI CC MA LL CY IA ER M OF F 50 CY NT MG HI AN TA A B NE 00 08 11 02 30 30 EA 99 MC Ac XI 18 -2 -[address] 22 KE ti UM 65 6- 7- 00 SI 45 MS ve 04 [address] 03 08 08 JR 1 PH 40 AR WI MA LL MG CY IA M CA OF F PS CY UL NT E HI AN A ME 49 07 10 03 30 30 EA 98 No Ac TO 88 -0 -[address] 58 t ti MD 40 1- 3- 00 SI 13 Av [...] ET HI AN A NE 00 08 10 [...] ET HI AN A CL 00 08 09 [...] ET NT HI AN A EN 60 08 09 00 12 30 EA 98 No Ac DO 95 -0 -[address] 99 t ti CE 10 7- 6- 00 SI 53 Av ve T 70 20 20 0 [...] -0 -[address] 58 t ti MD 40 1- 1- 00 SI 13 Av [...] ST 22 t ti UM 65 6- 00 SI 45 Av ve 04 [address] 03 08 08 la 1 PH bl 40 AR e MA MG CY CA OF PS CY UL NT E HI AN A MD 37 08 08 00 30 30 EA 98 No Ac IL 00 -0 -[address] 92 t ti OS 00 4 SI 56 Av ve EC 45 20 [...] BL CY ET NT HI AN A TO 00 07 08 01 30 30 EA 98 No Ac MD 18 -0 -[address] 58 t [...] ET HI AN A LI 00 04 07 02 30 30 EA 97 No Ac PI 07 -2 -[address] 74 t ti TO 10 5 7 SI 98 Av ve R 15 20 20 DE ai 10 52 08 08 la 3 PH bl MG AR e MA TA CY BL ET OF CY NT HI AN A 00 06 07 00 30 30 EA 98 No Ac 04 -3 -[address] 56 t ti 50 0- 7- 00 SI 08 Av ve 63 20 20 DE ai 96 08 08 la 5 PH bl AR e MA CY OF CY NT HI AN A TO 00 07 07 00 30 30 EA 98 No Ac MD 18 -0 -[address] 58 t ti OL 61 1- 7- SI 13 Av ve 09 20 20 DE ai XL 00 08 08 la 5 PH bl 50 AR e MA MG CY TA OF BL CY ET NT HI AN A LE 00 07 07 00 30 30 EA 98 No Ac VO 37 -0 -[address] 66 t ti TH 81 9 7- 00 SI 05 Av ve YR [...] 9- 7- 00 SI 06 Av ve MD 50 20 20 DE ai AM 98 08 08 la 8 PH bl HB AR e R MA 40 CY MG OF CY TA NT BL HI ET AN A MD 37 04 07 03 30 30 EA 97 No Ac IL 00 -0 -[address] 45 t ti OS 00 2- 7- SI 42 Av ve EC 45 20 20 DE ai 50 08 08 la OT 2 PH bl C AR e 20 MA .6 CY MG OF CY TA NT BL HI ET AN A CL 00 07 07 00 60 30 EA 98 No Ac ON 09 -0 -[address] 66 t ti AZ 30 9- 7- SI 04 Av ve EP 83 20 [...] NT ET HI AN A CL 00 06 07 00 60 30 EA 98 No Ac ON 09 -0 -[address] 29 t ti AZ 30 9- 3- 00 SI 33 Av ve EP 83 20 20 DE ai AM 20 08 08 la 1 PH bl 0. AR e 5 MA MG CY TA OF BL CY ET NT HI AN A MD 37 04 06 02 30 30 EA [...] 01 30 30 EA 97 No Ac MD 18 -2 -[address] 75 t [...] CY BL NT ET HI AN A MD 37 04 05 30 30 EA 97 No Ac [place] 00 -0 -[address] 45 t ti OS 00 2- 2- 00 SI 42 Av ve EC 45 20 20 DE ai 50 08 08 la OT 2 PH bl C AR e 20 MA .6 CY MG OF CY TA NT BL HI ET AN A TO 00 04 05 00 30 30 EA 97 No Ac MD 18 -2 -[address] 75 t [...] H OF CY NT HI AN A CL [...] OF CY NT HI AN A ME 57 03 04 00 60 30 EA 97 No Ac TO 66 -2 -[address] 38 t ti MD 40 7- 0- 00 SI 67 Av ve OL 50 20 20 DE ai OL 61 08 08 la 8 PH bl TA AR e RT MA RA CY TE OF 25 CY NT MG HI AN TA A B CI 55 03 04 00 15 30 EA 97 No Ac TA 11 -2 -[address] 38 t ti LO 10 7- 0- 00 SI 65 Av ve MD 34 20 20 DE ai AM 30 [...] CY BL NT ET HI AN A MD 37 04 04 00 30 30 EA 97 No Ac IL 00 -0 -[address] 45 t ti OS 00 2- 0- 00 SI 42 Av ve EC 45 20 20 DE ai 50 08 08 la OT 2 PH bl C AR e 20 MA .6 CY MG OF CY TA NT BL HI ET AN A 00 02 04 00 90 [...] 7- 5- 00 SI 25 Av ve MD 02 20 20 DE ai ED 20 08 08 la NI 7 PH bl SO AR e LO MA NE CY 4 OF MG CY NT DO HI SE AN PK A 60 01 03 00 12 3 [...] NG NT LE HI R AN A Immunization Name Date Rout CVX Reac Dose Comm Prov Is Faci e tion ent ider Refu lity Give sed n IIV3 09-2 141 MCKE No MCKE 6-20 MAGALIE MAGALIE VACC 13 JR JR INE AREN SPLI T VIRU AREN S 0.5 ML DOSA GE IM USE Procedures Procedure DOS Code Location Performer Comment COMPRE 44304 PRISCILA FRANCOIS AUDIOMETR 7 Y THRESHOLD EVAL SP RECOGNIJ TYMPANOME 25063 PRISCILA FRANCOIS TRY 7 DISTORT 19035 FRANCOIS FRANCOIS PRODUCT 7 EVOKED OTOACOUST IC EMISNS LIMITD CREATININ 46462 LINETTE SUE E BLOOD 7 [place] [address] LINETTE SUE UREA 7 [facility] NITROGEN INC INC QUANTITAT RUPA COLLECTIO 91052 LINETTE SUE N VENOUS 7 [facility] BLOOD INC [place] SOFT [address] [place] DELAROSA TISSUE 7 MEDICAL NECK IMAGING [place] [address] LAVINIA TOWNSEND PHOSPHORU 7 Myron TOWNSEND MD,PSC INORGANIC COMPREHEN 84436 LAVINIA TOWNSEND SIVE 7 BOBO [place] [address] LAVINIA TOWNSEND GLUTAMYLT 7 BEKAH TOWNSEND MD,PSC GAMMA BILIRUBIN 64063 LAVINIA TOWNSEND DIRECT 7 MD KRISTIAN,PSC BLOOD 86649 LAVINIA TOWNSEND COUNT 7 DUKE TOWNSEND MD,PSC AUTO&AUTO DIFRNTL WBC DRUG TEST 58235 LAVINIA TOWNSEND PRSMV 7 KRISTIAN INSTRKAYLA DOSS,PSC CHEMISTRY ANALYZERS DRUG TEST 28478 LINETTE SUE PRSMV 7 [facility] QUAL DIR INC INC OPTICAL OBS PER DAY DRUG TEST G0480 LINETTE SUE DEFINITV [address] [facility] [address] [facility] [address] ID INC INC METH P DAY 1-7 DRUG CL ECG 03427 LINETTE SUE ROUTINE 7 [facility] ECG INC INC W/LEAST 12 LDS TRCG ONLY W/O I&[place] [address] LEONEL DELAROSA ABDOMEN 7 MEDICAL W/CONTRAS IMAGING T ASS MATERIAL CT THORAX 85566 [facility]EL [facility] 7 MEDICAL MEDICAL W/CONTRAS IMAGING IMAGING T ASS ASS MATERIAL MYOCARDIA 87687 LEONEL DELAROSA L SPECT 7 MEDICAL MULTIPLE IMAGING STUDIES ASS OBSERVATI 25441 [facility] ON CARE 7 PHYSICIAN DISCHARGE S GROUP MANAGEMEN T INITIAL 68644 [facility] 7 PHYSICIAN CARE/DAY S GROUP 70 MINUTES INITIAL 33896 [facility] OBSERVATI 7 PHYSICIAN ON S GROUP CARE/DAY 50 MINUTES RADIOLOGI 92631 LEONEL DELAROSA C EXAM 7 MEDICAL CHEST 2 IMAGING VIEWS ASS FRONTAL&L ATERAL ECG 99095 LINETTE MONTANA JR ROUTINE 7 [facility] W/LEAST P 12 LDS I&R ONLY MRI BRAIN 31431 LEONEL DELAROSA BRAIN 7 MEDICAL STEM W/O IMAGING W/CONTRAS ASS T MATERIAL COLLECTIO 18585 LINETTE Pacheco VENOUS 7 [facility] [place] [address] LINETTE SUE UREA 7 [facility] NITROGEN INC INC QUANTITAT RUPA CREATININ 66480 LINETTE SUE E BLOOD 7 [facility] INC INC DRUG TEST 56949 LAVINIA KATE PRSMV 7 NORMA TOWNSEND MD,[facility] CHEMISTRY ANALYZERS DRUG TEST 67955 LINETTE SUE PRSMV 7 [facility] QUAL DIR INC INC OPTICAL OBS PER DAY DRUG 91465 LINETTE SUE SCREENING 7 [facility] INC INC BENZODIAZ EPINES 1-12 ECG 72823 LINETTE SUE ROUTINE 7 [facility] ECG INC INC W/LEAST 12 LDS TRCG ONLY W/O I&R PRQ 06321 [facility] TRLUML 7 PHYSICIAN CORONARY S GROUP STENT W/ANGIO ONE ART/BRNCH CATH PLMT 24162 [facility] H[facility] & 7 PHYSICIAN ARTS S GROUP W/NJX & ANGIO IMG S&I TECHNETIU A9502 LINETTE Barrientos TC-99M 7 [facility] TETROFOSM INC INC IN DX PER STUDY DOSE ECHO 59437 LINETTE SUE TTHRC R-T 7 [facility] 2D INC INC W/WOM-MOD E COMPL SPEC&COLR D CV STRS 56108 LINETTE SUE TST 7 [facility] XERS&/OR INC INC RX CONT ECG TRCG ONLY MYOCARDIA 78363 LINETTE Costa SPECT 7 [facility] MULTIPLE INC INC STUDIES ECG 30277 LINETTE SUE ROUTINE 7 [facility] ECG INC INC W/LEAST 12 LDS TRCG ONLY W/O I&[place] [address] LAVINIA KATE PHOSPHORU 7 Myron TOWNSEND MD,PSC INORGANIC COMPREHEN 63989 LAVINIA KATE SIVE 7 BOBO TOWNSEND MD,PSC PANEL BILIRUBIN 68509 LAVINIA KATE DIRECT 7 MD KRISTIAN,PSC BLOOD 51823 LAVINIA KATE COUNT 7 DUKE TOWNSEND MD,PSC AUTO&[place] [address] LAVINIA KATE GLUTAMYLT 7 BEKAH TOWNSEND MD,PSC GAMMA DRUG TEST 64946 LAVINIA KATE PRSMV 7 NORMA TOWNSEND MD,PSC CHEMISTRY ANALYZERS HEPATOBIL 03501 LINETTE SUE SYST 7 [facility] IMAG INC INC INC GB W/PHARMA INTERVENJ TECHNETIU A9537 LINETTE Barrientos TC-99M 7 [facility] MEBROFENI INC INC N DX UP TO 15 MCI ECG 49928 LINETTE SUE ROUTINE 7 [facility] ECG INC INC W/LEAST 12 LDS TRCG ONLY W/O I&R ECG 72017 LINETTE SUE ROUTINE 7 [facility] ECG INC INC W/LEAST 12 LDS TRCG ONLY W/O I&R FINAL G9638 LEONEL LICEA REPORTS 7 MEDICAL W/O DOC IMAGING 1/[place] [address] LINETTE SUE LIPASE 7 [place] [address] LINETTE SUE ABDOMEN & 7 [facility] PELVIS INC INC W/O CONTRAST MATERIAL THER 45371 LINETTE SUE PROPH/DX 7 [facility] NJX IV INC INC PUSH SINGLE/1S T SBST/DRUG COMPREHEN 11156 LINETTE SUE SIVE 7 [facility] METABOLIC INC INC PANEL CREATINE 81283 LINETTE SUE KINASE MB 7 [facility] [place] [address] LINETTE SUE AMYLASE 7 [facility] INC INC FINAL G9551 LEONEL LICEA REPR ABD 7 MEDICAL IMAG STS IMAGING W/O ASS INCIDNT FND LES NTD: ECG 09282 LINETTE MCCLAIN ROUTINE 7 [facility] W/LEAST P 12 LDS I&R ONLY RADIOLOGI 52920 LINETTE SUE C EXAM 7 [facility] CHEST 2 INC INC VIEWS FRONTAL&L ATERAL BLOOD 77963 LINETTE SUE COUNT 7 [facility] COMPLETE INC INC AUTO&[place] [address] LINETTE SUE TROPONIN 7 [facility] QUANTITAT INC INC RUPA CREATINE 29840 LINETTE SUE KINASE 7 [facility] TOTAL INC INC URNLS DIP 51160 LINETTE SUE 7 [facility] STICK/TAB INC INC LET REAGENT AUTO MICROSCOP Y BLOOD 81216 LINETTE SUE COUNT 7 [facility] COMPLETE INC INC AUTO&AUTO DIFRNTL WBC CT LUMBAR 44518 LEONEL LICEA SPINE 7 MEDICAL W/O IMAGING CONTRAST ASS MATERIAL FINAL G9551 LEONEL LICEA REPR ABD 7 MEDICAL IMAG STS IMAGING W/O ASS INCIDNT FND LES NTD: COMPREHEN 05163 LINETTE SUE SIVE 7 [facility] [place] [address] LEONEL LICEA ABDOMEN & 7 MEDICAL PELVIS IMAGING W/O ASS CONTRAST MATERIAL FINAL G9638 LEONEL LICEA REPORTS 7 MEDICAL W/O DOC IMAGING 1/MORE ASS DOSE REDUCTION TECH RADEX 87354 EMERSON NATHAN SPINE 7 LUMBOSACR CHIROPRAC AL 2/3 TIC CENTE VIEWS RADEX 07416 EMERSON NATHAN SPINE 7 CERVICAL CHIROPRAC 2 OR 3 TIC CENTE VIEWS APPL 04390 EMERSON NATHAN MODALITY 7 1/> AREAS CHIROPRAC ELEC TIC CENTE STIMJ UNATTENDE D CHIROPRAC 97158 EMERSON NATHAN TIC 7 MANIPULAT CHIROPRAC RUPA TX TIC CENTE SPINAL 3-4 REGIONS DRUG TEST 76038 LINETTE SUE PRSMV 7 [facility] QUAL DIR INC INC OPTICAL OBS PER DAY DRUG TEST 82986 LAVINIA KATE PRSMV 7 NORMA TOWNSEND MD,[facility] CHEMISTRY ANALYZERS RADEX 11564 LEONEL ANDREA ABDOMEN 7 MEDICAL COMPL IMAGING W/DCBTS&/ ASS ERC VIEWS RADIOLOGI 13865 [facility] AND[facility]A C EXAM 7 MEDICAL CHEST 2 IMAGING VIEWS ASS FRONTAL&L ATERAL IAADIADOO 66912 LINETTE SUE 7 [facility] INFLUENZA INC INC DRUG TEST G0480 LINETTE SUE DEFINITV [address] ID INC INC METH P DAY 1-7 DRUG CL DRUG TEST 50732 LINETTE SUE PRSMV 7 [facility] QUAL DIR INC INC OPTICAL OBS PER DAY BASIC 72158 LINETTE SUE METABOLIC 7 [facility] PANEL INC INC CALCIUM TOTAL HEPATIC 44629 LINETTE SUE FUNCTION 7 [facility] PANEL INC INC LIPID 41315 LINETTE SUE PANEL 7 [facility] INC INC COLLECTIO 92076 LINETTE SUE N VENOUS 7 [facility] BLOOD INC INC VENIPUNCT URE HEMOGLOBI 21491 LINETTE SUE N 7 [facility] GLYCOSYLA INC INC SONG A1C ECG 18050 LINETTE SUE ROUTINE 7 [facility] ECG INC INC W/LEAST 12 LDS TRCG ONLY W/O I&R DRUG TEST G0480 LINETTE SUE DEFINITV [address] [facility] [address] [address] ID INC INC METH P DAY 1-7 DRUG CL DRUG TEST 04085 LINETTE SUE PRSMV 7 [facility] QUAL DIR INC INC OPTICAL OBS PER DAY COMPREHEN 76766 LINETTE SUE SIVE 7 [facility] METABOLIC INC INC PANEL CT THORAX 38162 LEONEL DELAROSA 7 MEDICAL W/CONTRAS IMAGING T ASS MATERIAL FINAL RPT G[address]/MRI 7 MEDICAL CHEST/NCK IMAGING /U/S NO ASS THR NOD<1.0 [place] [address] LINETTE SUE LIPASE 7 [facility] INC INC FIBRIN 94991 LINETTE SUE DGRADJ 7 [facility] PRODUCTS INC INC D-DIMER QUAL/SEMI TODD ECG 07844 LINETTE SUE ROUTINE 7 [facility] ECG INC INC W/LEAST 12 LDS TRCG ONLY W/O I&R FINAL G9638 LEONEL DELAROSA REPORTS 7 MEDICAL W/O DOC IMAGING 1/[place] [address] LINETTE SUE ANGIOGRAP 7 [facility] HY CHEST INC INC W/CONTRAS T/[place] [address] LEONEL DELAROSA ABDOMEN 7 MEDICAL W/[place] [address] LINETTE SUE TROPONIN 7 [facility] QUANTITAT INC INC RUPA BLOOD 77387 LINETTE SUE COUNT 7 [facility] COMPLETE INC INC AUTO&AUTO DIFRNTL WBC URNLS DIP 15108 LINETTE SUE 7 [facility] STICK/TAB INC INC LET REAGENT AUTO MICROSCOP Y NATRIURET 59288 LINETTE SUE IC 7 [facility] PEPTIDE INC INC CREATINE 12695 LINETTE SUE KINASE 7 [facility] TOTAL INC INC COLLECTIO 64735 LINETTE SUE N VENOUS 7 [facility] [place] [address] LINETTE VERMAON AMYLASE 7 [facility] INC INC CREATINE 94341 LINETTE LINETTE KINASE MB 7 [facility] FRACTION INC INC ONLY RADIOLOGI 91463 LEONEL MILLERUTCHER C EXAM 7 MEDICAL CHEST 2 IMAGING VIEWS ASS FRONTAL&L ATERAL FINAL G9551 LEONEL DELAROSA REPR ABD 7 MEDICAL IMAG STS IMAGING W/O ASS INCIDNT FND [place]ES [place]TD: [place] [address] LINETTE VERMAON ANGIOGRAP 7 [facility] HY INC INC ABDOMEN W/CONTRAS T/NONCONT RAST ECG 46939 LINETTE SUE ROUTINE 7 [facility] W/LEAST P P 12 LDS I&R ONLY HEPATITIS 50884 LINETTE SUE A 6 [facility] ANTIBODY INC INC HAAB HEPATITIS 18669 LINETTE SUE C 6 [facility] [place] [address] LINETTE SUE AMYLASE 6 [facility] INC INC COLLECTIO 23451 LINETTE LINETTE N VENOUS 6 [facility] [place] [address] LINETTE SUE THYROID 6 [facility] STIMULATI INC INC NG HORMONE TSH HEMOGLOBI 50747 LINETTE SUE N 6 [facility] GLYCOSY[place] [address] LINETTE SUE LIPASE 6 [facility] INC INC BLOOD 24513 LINETTE SUE COUNT 6 [facility] COMPLETE INC INC AUTO&AUTO DIFRNTL WBC HEPATITIS 35093 LINETTE SUE B CORE 6 [facility] ANTIBODY INC INC HBCAB TOTAL HEPATITIS 30872 LINETTE SUE B SURF 6 [facility] [address] LINETTE SUE HEPATITIS 6 [facility] B INC INC SURFACE ANTIGEN DRUG TST G0477 LINETTE SUE PRESUMP;C 6 [facility] PBL BEING [place] [address] LINETTE SUE THYROXINE 6 [facility] TOTAL INC INC COMPREHEN 61986 LINETTE SUE SIVE 6 [facility] METABOLIC INC INC PANEL DRUG TST G0477 LINETTE LINETTE PRESUMP;C 6 [facility] PBL BEING INC INC READ DC OPT OBV ONLY DRUG TEST G0479 KATEDANICA TOWNSEND 6 TOWNSEND, PRESUMP;I ,PSC NSTRUMENT ED CHEMISTRY ANLYZER ECG 12691 LINETTE JOHNY ROUTINE 6 [facility] W/LEAST P 12 LDS I&R ONLY COLLECTIO 69528 LINETTE SUE N VENOUS 6 [facility] [place] [address] LINETTE SUE AMYLASE 6 [facility] INC INC CREATINE 71046 LINETTE SUE KINASE MB 6 [facility] FRACTION INC INC ONLY BLOOD 07302 LINETTE SUE COUNT 6 [facility] COMPLETE INC INC AUTO&[place] [address] LINETTE LINETTE TROPONIN 6 [facility] QUANTITAT INC INC RUPA NATRIURET 81867 LINETTE SUE IC 6 [facility] [place] [address] LINETTE SUE LIPASE 6 [facility] INC INC CREATINE 51589 LINETTE SUE KINASE 6 [facility] TOTAL INC INC FIBRIN 28280 LINETTE SUE DGRADJ 6 [facility] PRODUCTS INC INC D-DIMER QUAL/[place] [address] LINETTE LINETTE ANGIOGRAP 6 [facility] HY CHEST INC INC W/CONTRAS T/NONCONT RAST ECG 58590 LINETTE LINETTE ROUTINE 6 [facility] ECG INC INC W/LEAST 12 LDS TRCG ONLY W/O I&R RADIOLOGI 98583 LINETTE SUE C 6 [facility] EXAMINATI INC INC ON CHEST SINGLE VIEW FRONTAL CT THORAX 25330 [place] ZULLY 6 MEDICAL BUBBA W/CONTRAS IMAGING T ASS MATERIAL COMPREHEN 08691 LINETTE LINETTE SIVE 6 [facility] METABOLIC INC INC PANEL DRUG TST G0477 LINETTE SUE PRESUMP;C 6 [facility] PBL [place]ING [place] [address] LINETTE SUE CERVICAL 6 [facility] SPINE W/O INC INC CONTRAST MATERIAL THERAPEUT 51567 LINETTE SUE IC 6 [facility] PROPHYLAC INC INC TIC/DX INJECTION SUBQ/[place] [address] [place] DELAROSA ALL HEAD/BRAI 6 MEDICAL N W/O IMAGING CONTRAST ASS MATERIAL RADEX 70922 LINETTE SUE SHOULDER 6 [facility] COMPLETE INC INC MINIMUM 2 [place] [address] [facility], SETTEMBRE SURG 6 [facility] GROSS&CHARLEY ROSCOPIC EXAM GLUC BLD 80831 LINETTE SUE GLUC MNTR 6 [facility] DEV INC INC CLEARED FDA SPEC HOME USE ANES 00903 [facility] 6 ANESTH INTESTINE OF THE BLUE ENDOSCOPY DISTAL DUODENUM COLSC FLX 07961 LINETTE SUE W/RMVL 6 [facility] OF TUMOR INC INC POLYP LESION SNARE TQ DRUG TST G0477 LINETTE SUE PRESUMP;C 6 [facility] PBL BEING INC INC READ DC OPT OBV ONLY DRUG 53959 LINETTE SUE SCREENING 6 [facility] INC INC BENZODIAZ EPINES 1-12 COL-CHR/M 25453 LINETTE SUE S NONDRUG 6 [facility] ANALYTE INC INC CARLINE QUAL/TODD EA SPEC DRUG 39488 LINETTE SUE SCREEN 6 [facility] LIST A INC INC SINGLE DRUG CLASS METHOD COMPREHEN 96605 LINETTE SUE SIVE 6 [facility] METABOLIC INC INC PANEL HEMOGLOBI 83199 LINETTE SUE N 6 [facility] GLYCOSYLA INC INC SONG A1C BLOOD 28249 LINETTE SUE COUNT 6 [facility] COMPLETE INC INC AUTO&AUTO DIFRNTL WBC COLLECTIO 36294 LINETTE SUE N VENOUS 6 [facility] [place] [address] LINETTE SUE THYROID 6 [facility] STIMULATI INC INC NG HORMONE TSH PROSTATE G0103 LINETTE SUE CANCER 6 [facility] SCREENING INC INC ; PSA TEST LIPID 38722 LINETTE SUE PANEL 6 [facility] [place] [address] LINETTE SUE THYROXINE 6 [facility] TOTAL INC INC THERAPEUT 62397 [facility] [place] IC 6 PHYSICIAN CHARLEY PROPHYLAC S GROUP TIC/DX INJECTION SUBQ/IM INJECTION J1100 [facility] [place] 6 PHYSICIAN CHARLEY DEXAMETHO S GROUP SONE SODIUM PHOSPHATE 1 MG INJECTION J1885 [facility] [place] 6 PHYSICIAN CHARLEY KETOROLAC S GROUP TROMETHAM INE PER 15 MG INJECTION J1100 [facility] [place] 6 PHYSICIAN CHARLEY DEXAMETHO S GROUP SONE SODIUM PHOSPHATE 1 MG THERAPEUT 81252 [facility] [place] IC 6 PHYSICIAN CHARLEY PROPHYLAC S GROUP TIC/DX INJECTION SUBQ/IM THERAPEUT 93207 [facility] [place] IC 6 PHYSICIAN EUG PROPHYLAC S GROUP TIC/DX INJECTION SUBQ/IM INJECTION J0696 [facility] [place] 6 PHYSICIAN EUG CEFTRIAXO S GROUP NE SODIUM PER 250 MG INJECTION 53270 BOYD LE LB 6 MD JERMAINE, SINGLE/ML PSC T TRIGGER POINT 1/2 MUSCLES DRUG TST G0477 LINETTE SUE PRESUMP;C 6 [facility] PBL BEING INC INC READ DC OPT OBV ONLY DRUG TEST G0481 LINETTE SUE DEFINITV 6 [facility] DR ID INC INC METH P DAY 8-14 DRUG CL MRI BRAIN 11775 LINETTE SUE BRAIN 6 [facility] STEM W/O INC INC W/CONTRAS T MATERIAL INJECTION A9576 LINETTE SUE 6 [facility] GADOTERID INC INC [place] [address] LINETTE SUE UREA 6 [facility] NITROGEN INC INC QUANTITAT RUPA COLLECTIO 08460 LINETTE SUE N VENOUS 6 [facility] BLOOD INC INC VENIPUNCT URE CREATININ 48003 LINETTE Iniguez BLOOD 6 [facility] INC INC MRI BRAIN 30867 LINETTE SUE BRAIN 6 [facility] STEM W/O INC INC CONTRAST MATERIAL DUPLEX 70759 LINETTE SUE SCAN 6 [facility] EXTRACRAN INC INC IAL ART COMPL BI [facility] G0463 LINETTE SUE OUTPATIEN 6 [facility] T CLIN INC INC VISIT ASSESS & [place] [address] LINETTE BECKETT CO HEAD/BRAI 6 [facility] HEALTH N W/O INC DEPARTMEN CONTRAST T MATERIAL THER 73941 LINETTE SUE PROPH/DX 6 [facility] NJX IV INC INC PUSH SINGLE/1S T SBST/DRUG INJECTION J2405 LINETTE SUE 6 [facility] ONDANSETR INC INC ON HCL PER 1 MG THERAPEUT 13591 LINETTE SUE IC 6 [facility] INJECTION INC INC IV PUSH EACH NEW DRUG BLOOD 78163 LINETTE SUE COUNT 6 [facility] COMPLETE INC INC AUTO&AUTO DIFRNTL WBC BASIC 31167 LINETTE SUE METABOLIC 6 [facility] PANEL INC INC CALCIUM TOTAL LOCM Q9966 LINETTE SUE 200-299 6 [facility] MG/ML INC INC IODINE CONCENTRA TION PER ML INJECTION J1030 LINETTE SUE 6 [facility] METHYLPRE INC INC DNISOLONE ACETATE 40 MG FLUOR 10418 BOYD ASHER NEEDLE/CA 6 MD JERMAINE, PSC SPINE/PAR ASPINAL DX/[place]X [address] BOYD ASHER DX/THER 6 MD JERMAINE, SBST PSC EPIDURAL/ SUBRACH CERV/THOR ACIC INJECTION J2805 LINETTE SUE 6 [facility] SINCALIDE INC INC 5 MICROGRAM S TECHNETIU A9537 LINETTE Barrientos TC-99M 6 [facility] MEBROFENI INC INC N DX UP TO 15 MCI HEPATOBIL 20441 LINETTE SUE SYST 6 [facility] IMAG INC INC INC GB W/PHARMA INTERVENJ 49302 LEONEL DELAROSA ALL ABDOMINAL 5 MEDICAL REAL IMAGING TIME ASS W/IMAGE LIMITED CUL BACT 02986 LINETTE SUE XCPT 5 [facility] URINE INC INC BLOOD/STO OL AEROBIC ISOL GLUC BLD 72442 LINETTE SUE GLUC MNTR 5 [facility] DEV INC [place] [address] LINETTE SUE STREPTOCO 5 [facility] [place] [address] LEONEL ZULLY RETROPERI 5 MEDICAL BUBBA TONEAL IMAGING [place] [address] LINETTEKING SUE RETROPERI 5 [facility] TONEAL INC INC REAL TIME W/IMAGE COMPLETE E-STIM G0283 LINETTE SUE 1/> AREAS 5 [facility] OTH THAN INC INC WND CARE PART TX PLAN APPL 28564 LINETTE SUE MODALITY 5 [facility] 1/> AREAS INC INC 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 L APPL 38901 LINETTE SUE MODALITY 5 [facility] 1/> AREAS INC INC ULTRASOUN D EA 15 MIN APPLICATI 37047 LINETTE SUE ON 5 [facility] MODALITY INC INC 1/> AREAS HOT/COLD PACKS PHYSICAL 63229 LINETTE SUE THERAPY 5 [facility] EVALUATIO INC INC N OPHTH [address] [facility] 5 XM&EVAL COMPRHNSV ESTAB PT 1/> INJECTION BOYD DEAN MD, SINGLE/ML PSC T TRIGGER POINT 1/2 MUSCLES INJECTION LINETTE SUE 5 [facility] SINGLE/ML INC INC T TRIGGER POINT 3/> MUSCLES INJECTION J1030 LINETTE SUE 5 [facility] METHYLPRE INC INC DNISOLONE ACETATE 40 MG PSYCHIATR 00797 COMPREHEN MINEER IC 5 D INC EDELMIRA DIAGNOSTI C EVALUATIO N INJECTION 62003 FREDY Fabian MD SINGLE/ML T TRIGGER POINT 1/2 MUSCLES INJECTION 29580 LINETTE SUE 5 [facility] SINGLE/ML INC INC T TRIGGER POINT 3/> MUSCLES INJECTION J1030 [facility] SUE 5 [facility] METHYLPRE INC INC DN[place] [address] [place] [address] LEONEL LICEA HEAD/BRAI 5 [facility] N W/[place] [address] LEONEL LICEA CERVICAL 5 [facility] SPINE W/O IMAGING CONTRAST ASS MATERIAL RADEX 63772 [facility] L[facility] SPINE 5 [facility] THORACIC IMAGING 2 VIEWS ASS ROGELIO 29415 LINETTE LEIVA POST-VOID 5 [facility] RESIDUAL P URINE&/BL [facility] G0463 LINETTE SUE OUTPATIEN 5 [facility] T CLIN INC INC VISIT ASSESS & MGMT [place] ECG 38042 LINETTE VERMAON ROUTINE 5 [facility] ECG INC INC W/LEAST 12 LDS TRCG ONLY W/O I&R ECG 02343 CARDIOVAS CHAYO ROUTINE 5 CULAR MAT ECG CONSULTAN W/LEAST TS O 12 LDS I&R ONLY ECHO 59009 LINETTE LINETTE TTHRC R-T 5 [facility] 2D INC INC W/WOM-MOD E COMPL SPEC&COLR D MYOCARDIA 21005 LINETTE Costa SPECT 5 [facility] MULTIPLE INC INC STUDIES CV STRS 65862 [facility] SARWATU TST 5 PHYSICIAN VENITA XERS&/OR S GROUP RX CONT ECG W/O I&R CV STRS 36211 [facility] SUE TST 5 [facility] XERS&/OR INC INC RX CONT ECG TRCG ONLY TECHNETIU A9500 LINETTE Barrientos TC-99M 5 [facility] SESTAMIBI INC INC DX PER STUDY DOSE ECG 63458 LINETTE SUE ROUTINE 5 [facility] ECG INC INC W/LEAST 12 LDS TRCG ONLY W/O I&R ECG 70749 CARDIOVAS CHAYO ROUTINE 5 CULAR MAT ECG CONSULTAN W/LEAST TS O 12 LDS I&[place] [address] LINETTE SUE THYROID 5 [facility] STIMULATI INC INC NG HORMONE TSH LIPID 49377 LINETTE SUE PANEL 5 [place] [address] LINETTE SUE THYROXINE 5 [facility] TOTAL INC INC BASIC 73482 LINETTE SUE METABOLIC 5 [facility] PANEL INC INC CALCIUM TOTAL CRITICAL 39555 LINETTE SUE CARE 5 [facility] ED P P PATIENT INIT 30-74 MIN AMB A0427 [facility] SERVICE 5 [facility]ANCE AMBULANCE ALS SERVICE SERVICE EMERGENCY TRANSPORT LEVEL 1 COMPREHEN 17119 LINETTE SUE SIVE 5 [facility] METABOLIC INC INC PANEL GROUND A0425 [facility] MILEAGE 5 [facility]ANCE AM[place]ULANCE [place] [address] LINETTE SUE HEAD/BRAI 5 [facility] N W/O INC INC CONTRAST MATERIAL RADIOLOGI 71999 LEONEL Tyson 5 [facility] EXAMINATI IMAGING ON CHEST ASS [place] FRONTAL ECG 06295 LIN[facility]TE SUE ROUTINE 5 [facility] ECG INC INC W/LEAST 12 LDS TRCG ONLY W/O I&R CREATINE 85208 LINETTE SUE KINASE MB 5 [facility] FRACTION INC INC ONLY ECG 09023 LINETTE SUE ROUTINE 5 [facility] W/LEAST P P 12 LDS I&R ONLY CREATINE 42248 LINETTE SUE KINASE 5 [facility] TOTAL INC INC BLOOD 66037 LINETTE SUE COUNT 5 [facility] COMPLETE INC INC AUTO&[place] [address] LINETTE SUE TROPONIN 5 [facility] [place] [address] LEONEL ANDREA ANGIOGRAP 4 MEDICAL BUBBA HY IMAGING ABDOMEN ASS W/CONTRAS T/NONCONT RAST LOCM Q9967 LINETTE SUE [phone] 4 [facility] MG/ML INC INC [place] [address] LIN[facility] SUE UREA 4 [facility] NITROGEN INC INC QUANTITAT [place] COLLECTIO 36512 LINETTE SUE N VENOUS 4 [facility] BLOOD INC INC VENIPUNCT URE CREATININ 79568 LINETTE SUE E BLOOD 4 [facility] INC [place] [address] LINETTE SUE HEAD/BRAI 4 [facility] N W/O INC INC CONTRAST MATERIAL THERAPEUT 67256 [facility] IC 4 PHYSICIAN CHARLEY PROPHYLAC S GROUP TIC/DX INJECTION SUBQ/IM INJECTION J0696 [facility] 4 PHYSICIAN CHARLEY CEFTRIAXO S GROUP NE SODIUM PER 250 MG INJECTION J1040 [facility] 4 PHYSICIAN PHYSICIAN METHYLPRE S GROUP S GROUP DNISOLONE ACETATE 80 MG RADIOLOGI 65436 [place] ZULLY C 4 MEDICAL BUBBA EXAMINATI IMAGING ON CHEST ASS SINGLE VIEW FRONTAL DIAB ONLY A5500 [facility] FIT CSTM 4 PREP&SPL SHOE MX DNSITY INSRT FOR DIAB A5512 [facility] ONLY MX 4 DNSITY INSRT DIR FORMD PRFAB EA THERAPEUT 69608 LINETTE SUE IC 4 [facility] PROPHYLAC INC INC TIC/DX INJECTION SUBQ/IM CT LUMBAR 08267 ZULLY ZULLY SPINE 4 BUBBA BUBBA W/O CONTRAST MATERIAL THER 93422 LINETTE SUE PROPH/DX 4 [facility] NJX IV INC INC PUSH SINGLE/1S T SBST/[place] [address] ZULLY ZULLY ABDOMEN & 4 BUBBA BUBBA PELVIS W/O CONTRST 1/> BODY RE COMPREHEN 86585 LINETTE SUE SIVE 4 [facility] METABOLIC INC INC PANEL THER 22018 LINETTE SUE PROPH/DX 4 [facility] NJX IV INC INC PUSH SINGLE/1S T SBST/DRUG THROMBOPL 66504 LINETTE SUE ASTIN 4 [facility] TIME INC INC PARTIAL PLASMA/WH OLE BLOOD ECG 98241 LINETTE SUE ROUTINE 4 [facility] ECG INC INC W/LEAST 12 LDS TRCG ONLY W/O I&R PROTHROMB 74823 LINETTE SUE IN TIME 4 [facility] INC INC FIBRIN 04196 LINETTE SUE DGRADJ 4 [facility] PRODUCTS INC INC D-DIMER QUAL/[place] [address] LINETTE SUE ABDOMEN & 4 [facility] PELVIS INC INC W/O CONTRAST MATERIAL ECG 78982 [facility] ROUTINE 4 BRO BRO ECG W/LEAST 12 LDS I&R ONLY RADIOLOGI 98347 LINETTE SUE C EXAM 4 [facility] CHEST 2 INC INC VIEWS FRONTAL&L ATERAL CREATINE 97454 LINETTE SUE KINASE MB 4 [facility] FRACTION INC INC ONLY CREATINE 72221 LINETTE SUE KINASE 4 [facility] [place] [address] LINETTE SUE TROPONIN 4 [facility] QUANTITAT INC INC RUPA BLOOD 47061 LINETTE SUE COUNT 4 [facility] COMPLETE INC INC AUTO&AUTO DIFRNTL WBC DRUG SCR G0434 VITA HAM VITA HAM NOT 4 CHROMATOG RAPHIC; ANY NUMBER PT ENC BLOOD 20568 LINETTE SUE COUNT 3 [facility] COMPLETE INC INC AUTO&[place] [address] LINETTE SUE THYROID 3 [facility] STIMULATI INC INC NG HORMONE TSH COMPREHEN 09494 LINETTE SUE SIVE 3 [facility] METABOLIC INC INC PANEL IM ADM 39452 MCKEMIE MCKEMIE PRQ ID 3 JR AREN JR AREN SUBQ/IM NJXS 1 VACCINE IM ADM 04429 RUTKECHRISTIE RUTKEMIE PRQ ID 3 JR AREN JR AREN SUBQ/IM NJXS EA VACCINE IIV3 65471 MCKEMIE MCKEMIE VACCINE 3 JR AREN RAI AREN SPLIT VIRUS 0.5 ML DOSAGE IM USE INJECTION J3301 RUTKEMIE MCKEMIE 3 JR AREN JR AREN TRIAMCINO LONE ACETONIDE NOS 10 MG ADMINISTR G0008 MCKEMIE MCKEMIE ATION OF 3 JR AREN JR AREN INFLUENZA VIRUS VACCINE THERAPEUT 38660 LINETTE SUE IC 3 [facility] PROPHYLAC INC INC TIC/DX INJECTION SUBQ/IM LIPID 53017 LINETTE SUE PANEL 3 [place] [address] LINETTE SUE THYROID 3 [facility] STIMULATI INC INC NG HORMONE TSH COMPREHEN 35372 LINETTE SUE SIVE 3 [facility] METABOLIC INC INC PANEL 3D 08469 LINETTE SUE RENDERING 3 [facility] W/INTERP INC INC & POSTPROCE SS SUPERVISI ON INJECTION A9576 LINETTE SUE 3 [facility] GADOTERID INC INC [place] [address] LINETTE SUE UREA 3 [facility] NITROGEN INC INC QUANTITAT RUPA MRI 31037 LINETTE SUE SPINAL 3 [facility] CANAL INC INC CERVICAL W/O CONTRAST MATRL CREATININ 67263 LINETTE SUE E BLOOD 3 [facility] INC INC MRI BRAIN 54925 LINETTE SUE BRAIN 3 [facility] STEM W/O INC INC W/CONTRAS T MATERIAL APPLICATI 88019 LINETTE SUE ON 3 [facility] MODALITY INC INC 1/> AREAS HOT/COLD PACKS APPL 45356 LINETTE SUE MODALITY 3 [facility]/> AREAS INC INC 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 L APPL 83862 LINETTE SUE MODALITY 3 [facility] 1/> AREAS INC INC ELEC STIMJ UNATTENDE D APPL 34823 LINETTE SUE MODALITY 3 [facility] 1/> AREAS INC INC ELEC STIMJ UNATTENDE D APPL 94449 LINETTE SUE MODALITY 3 [facility] 1/> AREAS INC INC 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 L APPLICATI 19230 LINETTE SUE ON 3 [facility] MODALITY INC INC 1/> AREAS HOT/COLD PACKS APPL 52365 LINETTE SUE MODALITY 3 [facility] 1/> AREAS INC INC ULTRASOUN D EA 15 MIN PHYSICAL 43007 LINETTE SUE THERAPY 3 [facility] EVALUATIO INC INC N THERAPEUT 79159 LINETTE SUE IC 3 [facility] PROPHYLAC INC INC TIC/DX INJECTION SUBQ/IM INJECTION J3301 LINETTE SUE 3 [facility] TRIAMCINO INC INC LONE ACET[place] N[place] [address] [place] [address] LINETTE SUE CLOSTRIDI 3 [facility] UM INC INC DIFFICILE TOXIN CUL BACT 66675 LINETTE SUE STOOL 3 [facility] AEROBIC INC INC ISOL SALMONELL A&SHIGELL BLOOD 32559 LINETTE SUE OCCULT 3 [facility] PEROXIDAS INC INC E ACTV QUAL FECES 1-3 SPEC SMR PRIM 30987 LINETTE SUE SRC 3 [facility] GRAM/GIEM INC INC SA STAIN BCT FUNGI/ELBA L OVA&DERRICK 18044 LINETTE SUE ITES 3 [facility] DIRECT INC INC SMEARS CONCENTRA TION & ID RADIOLOGI 67407 ZULLY ZULLY C EXAM 3 BUBBA BUBBA CHEST 2 VIEWS FRONTAL&L ATERAL RADEX 86319 ZULLY ZULLY SHOULDER 3 BUBBA BUBBA COMPLETE MINIMUM 2 VIEWS ECG 69583 JOHNY GREENESON ROUTINE 3 [facility] CAMILLA ECG W/LEAST 12 LDS I&R ONLY CREATINE 24581 LINETTE SUE KINASE MB 3 [facility] FRACTION INC INC ONLY CREATINE 73775 LINETTE LINETTE KINASE 3 [facility] [place] [address] LINETTE SUE TROPONIN 3 [facility] QUANTITAT INC INC RUPA ECG 05869 LINETTE SUE ROUTINE 3 [facility] ECG INC INC W/LEAST 12 LDS TRCG ONLY W/O I&R URNLS DIP 58855 RUTKEMIE RUTKEMIE 3 JR AREN JR AREN STICK/TAB LET RGNT NON-AUTO W/O MICRSCP BLOOD 24149 LINETTE SUE COUNT 3 [facility] COMPLETE INC INC AUTO&[place] [address] LINETTE SUE TROPONIN 3 [facility] QUANTITAT INC INC RUPA CREATINE 04907 LINETTE LINETTE KINASE 3 [facility] [place] [address] LINETTE LINETTE LIPASE 3 [facility] INC INC URNLS DIP 57224 LINETTE SUE 3 [facility] STICK/TAB INC INC LET REAGENT AUTO MICROSCOP Y CREATINE 69406 LINETTE SUE KINASE MB 3 [facility] [place] [address] LINETTE SUE AMYLASE 3 [facility] INC INC ECG 34027 [place] ROUTINE 3 CHARLEY CHARLEY ECG W/LEAST 12 LDS I&R ONLY ECG 07853 LINETTE SUE ROUTINE 3 [facility] ECG INC INC W/LEAST 12 LDS TRCG ONLY W/O I&[place] [address]897 LINETTE SUE INFUSION 3 [facility] THERAPY/P INC INC ROPHYLAXI S /DX 1ST TO 1 HR THERAPEUT 17106 LINETTE SUE IC 3 [facility] INJECTION INC [place] [address] ZULLY ZULLY ABDOMEN & 3 BUBBA BUBBA PELVIS W/O CONTRAST MATERIAL INJECTION J2405 LINETTE SUE 3 [facility] ONDANSETR INC INC ON HCL PER 1 MG COMPREHEN 79236 LINETTE SUE SIVE 3 [facility] METABOLIC INC INC PANEL 3D 78076 LINETTE SUE RENDERING 3 [facility] INC INC W/INTERP& POSTPROC DIFF WORK STATION COMPREHEN 23486 LINETTE SUE SIVE 3 [facility] METABOLIC INC INC PANEL LIPID 66128 LINETTE SUE PANEL 3 [facility] INC INC PROSTATE G0103 LINETTE SUE CANCER 3 [facility] SCREENING INC INC ; PSA TEST BLOOD 19276 LINETTE SUE COUNT 3 [facility] COMPLETE INC INC AUTO&AUTO DIFRNTL WBC ECG 29673 LINETTE CRMIHira ROUTINE 3 [facility] W/LEAST P 12 LDS I&R ONLY ECG 21539 [place] ROUTINE 3 CHARLEY CHARLEY ECG W/LEAST 12 LDS I&R ONLY CREATINE 24367 LINETTE SUE KINASE MB 3 [facility] FRACTION INC INC ONLY BLOOD 24093 LINETTE SUE COUNT 3 [facility] COMPLETE INC INC AUTO&[place] [address] LINETTE SUE AMYLASE 3 [place] [address] LINETTE SUE TROPONIN 3 [facility] QUANTITAT INC INC RUPA URNLS DIP 43814 LINETTE SUE 3 [facility] STICK/TAB INC INC [place] [address] LINETTE SUE LIPASE 3 [facility] INC INC BLOOD 06856 LINETTE SUE OCCULT 3 [facility] PEROXIDAS INC INC E ACTV QUAL FECES 1-3 SPEC CREATINE 79811 LINETTE SUE KINASE 3 [facility] TOTAL INC INC RADIOLOGI 58090 LINETTE SUE C 3 [facility] EXAMINATI INC [place] [address] LINETTE SUE ABDOMEN & 3 [facility] PELVIS INC INC W/O CONTRAST MATERIAL IAADI 07140 LINETTE SUE INFFLUENZ 3 [facility] A A VIRUS INC INC IAADI 93225 LINETTE SUE INFLUENZA 3 [facility] B VIRUS INC INC ECG 26096 LINETTE SUE ROUTINE 3 [facility] ECG INC INC W/LEAST 12 LDS TRCG ONLY W/O I&R COMPREHEN 19404 LINETTE SUE SIVE 3 [facility] METABOLIC INC INC PANEL 3D 37207 LINETTE SUE RENDERING 3 [facility] INC INC W/INTERP& POSTPROC DIFF WORK STATION UROGRAPHY 09871 LEONEL ANDREA IV W/WO 2 MEDICAL BUBBA KUB W/WO IMAGING TOMOGRAPH ASS Y URETHROCY 97342 LINETTE SUE STOGRAPHY 2 [facility] INC INC RETROGRAD E RS&I CYSTO 36681 LINETTE SUE BLADDER 2 [facility] W/URETERA INC INC L CATHETERI ZATION ANES 82052 [facility] TRANSURET 2 ANESTH LOLY HRAL OF THE W/URETHRO BLUE CYSTOSCOP Y NOS CYSTOURET 46665 CALI LEIVA HROSCOPY 2 ART ART CREATININ 87629 LINETTE SUE E BLOOD 2 [place] [address] LINETTE SUE UREA 2 [facility] NITROGEN INC INC QUANTITAT RUPA URNLS DIP 46772 CALI LEIVA 2 ART ART STICK/TAB LET RGNT NON-AUTO W/[place] [address] LINETTE SUE ABDOMEN & 2 [facility] PELVIS INC INC W/O CONTRST 1/> BODY RE LOCM Q9967 LINETTE VERMAON 300-399 2 [facility] MG/ML INC INC IODINE CONCENTRA TION PER ML BASIC 34307 LINETTE SUE METABOLIC 2 [facility] [place]EL [place] [address] LINETTE SUE TESTOSTER 2 [facility] ONE TOTAL INC INC PROSTATE G0103 LINETTE SUE CANCER 2 [facility] SCREENING INC INC ; PSA TEST URNLS DIP 80448 CALI LEIVA 2 ART ART STICK/TAB LET RGNT NON-AUT[place] W/[place] [address] ZULLY ZULLY RETROPERI 2 BUBBA BUBBA TONEAL REAL TIME W/IMAGE COMPLETE URNLS DIP 99258 JAMA YUN 2 NAN NAN STICK/TAB LET RGNT NON-AUTO W/O MICRSCP HEMOGLOBI 96817 LINETTE SUE N 2 [facility] GLYCOSYLA INC INC SONG A1C LIPID 11163 LINETTE SUE PANEL 2 [facility] INC INC COMPREHEN 35693 LINETTE SUE SIVE 2 [facility] METABOLIC INC INC PANEL URNLS DIP 66402 JAMA YUN 2 NAN NAN STICK/TAB LET RGNT NON-AUTO W/O MICRSCP DETERMINA 48855 NICK ROMERO TION 2 [place] REFRACTIV E STATE OPHTHALMO 83507 NICK ROMERO SCPY 2 [place] EXTENDED RETINAL DRAWING I&R 1ST MYOCARDIA 18626 FALLUJI FALLUJI L SPECT 2 VENITA VENITA MULTIPLE STUDIES MYOCARDIA 63355 LINETTE SUE L SPECT 2 [facility] MULTIPLE INC INC STUDIES CV STRS 11260 LINETTE SUE TST 2 [facility] XERS&/OR INC INC RX CONT ECG TRCG ONLY CV STRS 53215 [facility] TST 2 XERS&/OR RX CONT ECG W/O I&R CV STRS 93673 LINETTE SUE TST 2 [facility] XERS&/OR [facility] RX CONT P P ECG I&R ONLY TECHNETIU A9502 LINETTE Barrientos TC-99M 2 [facility] TETROFOSM INC INC IN DX PER STUDY DOSE OBSERVATI 43505 [facility] ON CARE 2 CAMILLA CAMILLA DISCHARGE [facility] G0378 LINETTE SUE OBSERVATI 2 [facility] ON INC INC SERVICE PER HOUR CREATINE 57595 LINETTE SUE KINASE MB 2 [facility] [place] [address] LINETTE SUE TROPONIN 2 [facility] QUANTITAT INC INC RUPA CREATINE 37372 LINETTE VERMAON KINASE 2 [facility] TOTAL INC INC CREATINE 78904 LINETTE VERMAON KINASE 2 [facility] [place] [address] LINETTE SUE LIPASE 2 [place] [address] LINETTE SUE TROPONIN 2 [facility] QUANTITAT INC INC RUPA BLOOD 76179 LINETTE SUE COUNT 2 [facility] COMPLETE INC INC AUTO&AUTO DIFRNTL WBC CREATINE 28506 LINETTE SUE KINASE MB 2 [facility] FRACTION INC INC ONLY ECG 37835 [facility] ROUTINE 2 III AREN III AREN ECG W/LEAST 12 LDS I&R ONLY HOSPITAL G0378 LINETTE LINETTE OBSERVATI 2 [facility] ON INC INC SERVICE PER HOUR CT ORBIT [address] [place] ZULLY SELLA/POS 2 MEDICAL BUBBA T IMAGING FOSSA/EAR ASS W/O CONTRAST MATRL ECG 20870 LINETTE LINETTE ROUTINE 2 [facility] ECG INC INC W/LEAST 12 LDS TRCG ONLY W/O I&R PRESSURIZ 51891 LINETTE VERMAON ED/NONPRE 2 [facility] SSURIZED INC INC INHALATIO N TREATMENT RHYTHM 67300 LINETTE LINETTE ECG 1-3 2 [facility] LEADS INC INC TRACING ONLY W/O I&R INITIAL 27667 MCKEMIHira CRMIE OBSERVATI 2 JR AREN JR AREN ON CARE/DAY 30 MINUTES RADIOLOGI 83483 LINETTE SUE C 2 [facility] EXAMINATI INC [place] [address] LINETTE SUE HEAD/BRAI 2 [facility] N W/O INC INC CONTRAST MATERIAL BASIC 42345 LINETTE SUE METABOLIC 2 [facility] PANEL INC INC CALCIUM TOTAL COMPREHEN 40403 LINETTE SUE SIVE 2 [facility] METABOLIC INC INC PANEL 3D 94571 LINETTE SUE RENDERING 2 [facility] W/INTERP INC INC & POSTPROCE SS SUPERVISI ON [facility] 02827 EDGE DONNIE EDGE DONNIE MICROGRAP 2 HIC H/N/H/F/G 1ST STAGE 5 BLOCKS ADJT TIS 81262 ODALYS LB ODALYS LB TRNSFR/RE 2 ARRGMT E/N/E/L DFCT 10 SQ CM/< SUTR WND 85631 ODALYS LB ODALYS LB EYELID/MA 2 RGIN/TARS US/CONJUN C FULL THICK ANES 38200 [place] MAJORS G INTEG 2 ANESTHESI [facility] [facility] L NRV HEAD NECK&POST ERIOR TRUNK HEMOGLOBI 33630 LINETTE SUE N 2 [facility] GLYCOSYLA INC INC SONG A1C BLOOD 07055 LINETTE SUE COUNT 2 [facility] COMPLETE INC INC AUTO&AUTO DIFRNTL WBC LIPID 18369 LINETTE SUE PANEL 2 [facility] INC INC COMPREHEN 09703 LINETTE SUE SIVE 2 [facility] METABOLIC INC INC PANEL 3D 46403 LINETTE SUE RENDERING 2 [facility] W/INTERP INC INC & POSTPROCE SS SUPERVISI ON BASIC 94107 LINETTE SUE METABOLIC 2 [facility] [place] [address] LINETTE SUE HEAD/BRAI 2 [facility] N W/O INC INC CONTRAST MATERIAL ECG 74475 LINETTE SUE ROUTINE 2 [facility] ECG INC INC W/LEAST 12 LDS TRCG ONLY W/O I&R RHYTHM 74090 LINETTE VERMAON ECG 1-3 2 [facility] LEADS INC INC TRACING ONLY W/O I&R BLOOD 28745 LINETTE SUE COUNT 2 [facility] COMPLETE INC INC AUTO&[place] [address] LINETTE SUE TROPONIN 2 [facility] QUANTITAT INC INC RUPA URNLS DIP 53532 LINETTE SUE 2 [facility] STICK/TAB INC INC LET REAGENT AUTO MICROSCOP Y CREATINE 82032 LINETTE SUE KINASE 2 [facility] TOTAL INC INC RADIOLOGI 08348 ZULLY ZULLY C EXAM 2 BUBBA BUBBA CHEST 2 VIEWS FRONTAL&[place] [address] ZULLY ZULLY MAXILLOFA 2 BUBBA BUBBA CIAL W/O CONTRAST MATERIAL ECG 00577 [facility]AMPOS ROUTINE 2 III AREN III AREN ECG W/LEAST 12 LDS I&R ONLY CREATINE 30961 LINETTE SUE KINASE MB 2 [facility] FRACTION INC INC ONLY CREATINE 04364 LINETTE SUE KINASE MB 1 [facility] FRACTION INC INC ONLY ECG 07831 [place] MICHELLE BARAHONA MICHELLE ROUTINE 1 ECG W/LEAST 12 LDS I&R ONLY CREATINE 43018 LINETTE SUE KINASE 1 [facility] [place] [address] LINETTE SUE TROPONIN 1 [facility] QUANTITAT INC INC RUPA BLOOD 50584 LINETTE SUE COUNT 1 [facility] COMPLETE INC INC AUTO&AUTO DIFRNTL WBC PRESSURIZ 62736 LINETTE VERMAON ED/NONPRE 1 [facility] SSURIZED INC INC INHALATIO N TREATMENT RHYTHM 79924 LINETTE SUE ECG 1-3 1 [facility] LEADS INC INC TRACING ONLY W/O I&R ECG 67616 LINETTE SUE ROUTINE 1 [facility] ECG INC INC W/LEAST 12 LDS TRCG ONLY W/O I&R RADIOLOGI 64284 [place] ZULLY C 1 MEDICAL BUBBA EXAMINATI IMAGING ON CHEST ASS SINGLE VIEW FRONTAL COMPREHEN 43454 LINETTE SUE SIVE 1 [facility] METABOLIC INC INC PANEL EXC 90841 ODALYS MORROW LB LESION 1 EYELID W/O CLSR/W/SI MPLE DIR CLOSURE INCISIONA 32408 ODALYSDERRICK ASHER ODALYS LB L BIOPSY 1 EYELID SKIN & LID MARGIN THERAPEUT 01355 LICKING LICKING IC 1 [facility] PROPHYLAC INTERNAL INTERNAL TIC/DX MED MED INJECTION SUBQ/IM XTRNL 95347 ODALYS MORROW LB OCULAR 1 PHOTOG W/I&R DOCMT MEDICAL PROGRE OPHTH 43221 ISHA MIDDLETON ABRAZO [facility] MEDICAL 1 VISION XM&EVAL COMPRHNSV ESTAB PT 1/> [place] [address] NEW LENA ABDOMINAL 1 [place] [facility] [place] PSC W/[place] [address] [place] RETROPERI 1 [facility] TONEAL CLINIC REAL TIME PSC W/IMAGE LIMITED LIPID 22952 COMBINED COMBINED PANEL 1 PHYSICIAN PHYSICIAN S LA S LA HEMOGLOBI 47531 COMBINED COMBINED N 1 PHYSICIAN PHYSICIAN GLYCOSYLA S LA S LA SONG A1C GENERAL [address] [facility] 1 PHYSICIAN PHYSICIAN PANEL S LA S LA 3D 25709 LEONEL ANDRAE RENDERING 1 MEDICAL BUBBA W/INTERP IMAGING & ASS POSTPROCE SS SUPERVISI ON MRI 59906 LEONEL ANDREA SPINAL 1 MEDICAL BUBBA CANAL IMAGING CERVICAL ASS W/O CONTRAST MATRL MRI BRAIN 87111 LEONEL ANDREA BRAIN 1 MEDICAL BUBBA STEM W/[place] [address] LEONEL ANDREA HEAD/BRAI 1 MEDICAL BUBBA N W/O IMAGING CONTRAST ASS MATERIAL ECG 75654 LINETTE SUE ROUTINE 1 [facility] ECG INC INC W/LEAST 12 LDS TRCG ONLY W/O I&R ECG 86160 VOLODYMYR CAMPOS ROUTINE 1 EMERGENCY III AREN ECG SERVICES W/LEAST 12 LDS I&R ONLY RADIOLOGI 78610 LEONEL ANDREA C EXAM 1 MEDICAL BUBBA CHEST 2 IMAGING VIEWS ASS FRONTAL&L ATERAL CREATINE 77821 LINETTE SUE KINASE MB 1 [facility] FRACTION INC INC ONLY CREATINE 03601 LINETTE SUE KINASE 1 [facility] TOTAL INC INC BLOOD 65137 LINETTE SUE COUNT 1 [facility] COMPLETE INC INC AUTO&[place] [address] LINETTE SUE TROPONIN 1 [facility] QUANTITAT INC INC RUPA 3D 53648 LEONEL MILLERUTCHER RENDERING 1 MEDICAL BUBBA W/INTERP IMAGING & ASS POSTPROCE SS SUPERVISI ON BASIC 11892 LINETTE SUE METABOLIC 1 [facility] PANEL INC INC CALCIUM TOTAL BASIC 79714 LINETTE SUE METABOLIC 1 [facility] PANEL INC INC CALCIUM TOTAL BLOOD 90243 LINETTE SUE COUNT 1 [facility] COMPLETE INC INC AUTO&AUTO DIFRNTL WBC LIPID 42904 LINETTE SUE PANEL 1 [facility] INC INC ECHO 52560 LINETTE SUE TTHRC R-T 1 [facility] 2D INC INC W/WOM-MOD E COMPL SPEC&COLR D ESOPHAGOG 86522 C CELESTINO ADAME ASTRODUOD 1 DEEP ARREOLA MD [facility] TRANSORAL DIAGNOSTI C OTHER 4513 LINETTE LINETTE ENDOSCOPY 1 [facility] [place] [address] LINETTE SUE INFUSION 1 [facility] THERAPY INC INC PROPHYLAX IS/DX EA HOUR SWALLOWIN 27339 [facility] MILLERZULLY G FUNCJ 1 MEDICAL BUBBA W/CINERAD IMAGING IOGRAPY/V ASS IDRADIOG ECG 77987 LINETTE ANDERSEN ROUTINE 1 [facility] W/LEAST P 12 LDS I&[place] [address] [facility] INFUSION [facility] THERAPY/P INC INC ROPHYLAXI S /DX [address] [place] [address] [facility] ZULLY ABDOMEN & 1 [facility] PELVIS IMAGING W/O ASS CONTRAST MATERIAL RADIOLOGI [address]4059 [place] ZULLY C 1 [facility] B[facility] EXAMINATI IMAGING ON CHEST ASS S[place] FRONTAL ALS [id number] DAVID HERNANDEZ ROUTINE 1 [facility] AM[facility]ANCE DISPOSABL SERVICE SERVICE E SUPPLIES [place] 02279 [facility]OUTINE [facility] ECG INC INC W/LEAST 12 LDS TRCG ONLY W/O I&[place] [address] LEONEL MILLERUTCHER HEAD/BRAI 1 [facility] N W/O IMAGING CONTRAST ASS MATERIAL BLOOD 08129 [facility] COUNT 1 [facility] COMPLETE INC INC AUTO&[place] [address] [facility] TROPONIN 1 [facility] QUANTITAT INC INC RUPA CREATINE 55059 [facility] KINASE 1 [facility] TOTAL INC INC URNLS DIP 61229 [facility] STICK/TAB INC INC LET REAGENT AUTO MICROSCOP Y CREATINE 48393 [facility] KINASE MB 1 [facility] FRACTION INC INC ONLY 3D 79314 [facility] ZULLY RENDERING 1 [facility] W/INTERP IMAGING & ASS POSTPROCE SS SUPERVISI ON GROUND A0425 DAVID HERNANDEZ MILEAGE 1 [facility] PER SERVICE SERVICE STATUTE MILE AMB A0427 DAVID HERNANDEZ SERVICE 1 [facility] ALS SERVICE SERVICE EMERGENCY TRANSPORT LEVEL 1 AMB A0422 DAVID HERNANDEZ OXYGEN&O2 1 [facility] SUPPLIES SERVICE SERVICE LIFE SUSTAININ G SITUATION BASIC 35940 [facility] METABOLIC 1 [facility] PANEL INC INC CALCIUM TOTAL 3D 68472 [facility] RENDERING 1 [facility] INC INC W/INTERP& POSTPROC DIFF WORK STATION COMPREHEN 35207 [facility] SIVE 1 [facility] [place] [address] [facility] S[facility] THYROID 1 [facility] STIMULATI INC INC NG HORMONE TSH SYPHILIS 97271 [facility] TEST 1 [facility] NON-TREPO INC INC NEMAL ANTIBODY QUAL BLOOD 53262 [facility] COUNT 1 [facility] COMPLETE INC INC AUTO&AUTO DIFRNTL WBC SEDIMENTA 41056 [facility] TIKING RATE 1 [facility] RBC INC INC NON-AUTOM ATED CUL BACT 86035 [facility] XCPT 1 [facility] URINE INC INC BLOOD/STO OL AEROBIC ISOL CUL BACT 58916 [facility] AEROBIC 1 [facility] ADDL INC INC METHS DEFINITIV E EA ISOL SUSCEPTIB 48117 [facility] LTY STDY 1 [facility] ANTIMICRB INC INC IAL MICRO/[place] [address] [facility] ZULLY MAXILLOFA 0 [facility] B[facility] CIAL W/[place] [address] LEONEL ZULLY HEAD/BRAI 0 [facility] N W/O IMAGING CONTRAST ASS MATERIAL 3D 62995 [facility] RENDERING 0 [facility] INC INC W/INTERP& POSTPROC DIFF WORK STATION INITIAL 45070 SAM VARGAS INPATIENT 0 JAROD JAROD CONSULT NEW/ESTAB PT 55 MIN LARYNGOSC 32725 SAM VARGAS OPY 0 JAROD JAROD FLEXIBLE DIAGNOSTI C MYOCARDIA 31105 [facility] FALLUJI L SPECT 0 [facility] STUDIES RADIOLOGI 42886 LEONEL ANDREA C 0 [facility] EXAMINATI IMAGING [place] [address] LEONEL ANDREA ANGIOGRAP 0 [facility] HY CHEST IMAGING W/CONTRAS ASS T/NONCONT RAST AMB A0427 [facility] SERVICE 0 [facility] AMBULANCE ALS SERVICE SERVICE EMERGENCY TRANSPORT LEVEL 1 AMB A0422 DAVID HERNANDEZ OXYGEN&O2 0 [facility] SUPPLIES SERVICE SERVICE LIFE SUSTAININ G SITUATION GROUND A0425 [facility] MILEAGE 0 AMB[facility]ANCE AMBULANCE PER SERVICE SERVICE STATUTE MILE 18752 [facility] 0 [facility] REAL TIME PSC W/IMAGE LIMITED [facility] G0378 [facility] OBSERVATI 0 [facility] ON INC INC SERVICE PER HOUR BLOOD 76519 [facility] COUNT 0 [facility] COMPLETE INC INC AUTO&AUTO DIFRNTL WBC BASIC 50968 [facility] METABOLIC 0 [facility] PANEL INC INC CALCIUM TOTAL 3D 43075 LEONEL ZULLY, RENDERING 0 MEDICAL OLESYA IMAGING W/INTERP& ASSOCIATE POSTPROC S DIFF WORK STATION CRITICAL [address] [facility] 0 EMERGENCY III, ILL/INJUR SERVICES MCKAYLA ED PATIENT ASSOCIATE INIT S 30-74 MIN 3D 76795 [facility] SUE RENDERING 0 [facility] W/INTERP INC INC & POSTPROCE SS SUPERVISI ON CT PELVIS 04424 LEONEL ZULLY, W/O 0 MEDICAL OLESYA CONTRAST IMAGING MATERIAL ASSOCIATE S RADEX ABD 03013 LEONEL ZULLY, COMPL 0 MEDICAL OLESYA AQT ABD IMAGING W/S/E/D ASSOCIATE VIEWS 1 S VIEW CH COMPREHEN 00978 [facility] SIVE 0 [facility] METABOLIC INC INC PANEL LAPAROSCO 4701 [facility] SUE PIC 0 [facility] APPENDECT INC INC RAULITO BLOOD 06816 LINETTE [facility] COUNT 0 [facility] COMPLETE INC INC AUTO&AUTO DIFRNTL WBC ANESTHESI 54876 COMMUNITY CHUY, A 0 ANESTH LALO A [facility] LOWER ABD W/[place] [address] LINETTE SUE AMYLASE 0 [place] [address] LINETTE LIN[facility] TROPONIN 0 [facility] QUANTITAT INC INC RUPA URNLS DIP 24840 [facility] SUE 0 [facility] STICK/TAB INC INC [place] [address] LINETTE [facility] LIPASE 0 [facility] INC INC CREATINE 62222 LINETTE LINETTE KINASE 0 [facility] TOTAL INC INC HOSPITAL G0378 LINETTE LINETTE OBSERVATI 0 [facility] ON INC INC SERVICE PER HOUR LEVEL III 58677 PATHOLOGY PATHOLOGY SURG 0 & & PATHOLOGY CYTOLOGY CYTOLOGY LAB LAB GROSS&CHARLEY ROSCOPIC EXAM CREATINE 38491 LINETTE LINETTE KINASE MB 0 [facility] [place] [address] LINETTE VERMAON INFUSION 0 [facility] THER INC INC PROPH AD[place] [address] [place] [address] LEONEL MILLERUTCHER, HEAD/BRAI 0 MEDICAL OLESYA N W/O IMAGING CONTRAST ASSOCIATE MATERIAL S LAPAROSCO 80124 SKY SWANSON PIC 0 , , APPENDECT ADI F ADI F RAULITO ECG 93488 [facility] SUE ROUTINE 0 [facility] ECG INC INC W/LEAST 12 LDS TRCG ONLY W/O I&[place] [address] LEONEL ANDREA, ABDOMEN 0 MEDICAL OLESYA W/O IMAGING CONTRAST ASSOCIATE MATERIAL S IAADI 74246 [facility] SUE INFFLUENZ 0 [facility] A A VIRUS INC INC RHYTHM 92930 LIN[facility] SUE ECG 1-3 0 [facility] LEADS INC INC TRACING ONLY W/O I&R IAADI 38506 [facility] SUE INFLUENZA 0 [facility] B VIRUS INC INC ECG 66897 LINETTE NAN, ROUTINE 0 [facility] W/LEAST PROF SERV 12 LDS [place] [address] LIN[facility] SUE INFUSION 0 [facility] THERAPY/P INC INC ROPHYLAXI S /DX 1ST TO 1 HR COMPREHEN 28351 [facility] SUE SIVE 0 [facility] METABOLIC INC INC PANEL LIPID 92587 LINETTE SUE PANEL 0 [place] [address] LIN[facility]TE SUE THYROID 0 [facility] STIMULATI INC INC NG HORMONE TSH BLOOD 92062 LIN[facility]TE SUE COUNT 0 [facility] COMPLETE INC INC AUTO&[place] [address] PATHOLOGY PATHOLOGY SURG 9 & & PATHOLOGY CYTOLOGY CYTOLOGY LAB LAB GROSS&[place] [address] LINETTE SUE INFUSION 9 [facility] THERAPY/P INC INC ROPHYLAXI S /DX 1ST TO 1 HR SPECIAL 41609 PATHOLOGY PATHOLOGY STAIN 9 & & GROUP 1 CYTOLOGY CYTOLOGY MICROORGA LAB LAB [facility] I&R EGD 00045 GAIL SANCHEZ, TRANSORAL 9 MEDICAL ALEXIS BIOPSY SERV SINGLE/MU FOUNDATIO LTIPLE EGD 93479 GAIL SANCHEZ, INSERT 9 MEDICAL ALEXIS GUIDE SERV WIRE FOUNDATIO DILATOR PASSAGE ESOPHAGUS ESOPHAGOG 4516 LNIETTE SUE ASTRODUOD 9 [facility] ENOSCOPY INC [place] CL[place] 79540 LINETTE SUE BALLOON 9 [facility] DILATION INC INC ESOPHAGUS <30 [place] [address] LIN[facility] SUE INFUSION 9 [facility] THERAPY INC INC PROPHYLAX IS/DX EA HOUR DILATION 4292 LINETTE SUE OF 9 [facility] ESOPHAGUS INC INC HEPATBL 80673 UMBERTO LI SYS 9 MEDICAL OLESYA [place] [address] LIN[facility] SUE ABDOMINAL 9 [facility] REAL INC [place] TIME W/[place] [address] BISHNU HERNANEDZRA, RETROPERI 9 [facility] A REAL TIME PSC W/IMAGE LIMITED LIPID 78534 LIN[facility]TE SUE PANEL 9 [place] [address] LEONEL ZULLY, HEAD/BRAI 9 MEDICAL OLESYA N W/O IMAGING CONTRAST ASSOCIATE MATERIAL S RADIOLOGI 53072 LEONEL Marbella ANDREA 9 MEDICAL OLESYA EXAMINATI IMAGING ON CHEST ASSOCIATE SINGLE S VIEW FRONTAL COMPREHEN 80483 [facility] SUE SIVE 9 [facility] [place] [address] LEONEL ZULLY, ANGIOGRAP 9 MEDICAL OLESYA HY CHEST IMAGING W/CONTRAS ASSOCIATE T/NONCONT S RAST ECG 90695 LIN[facility]TE SUE ROUTINE 9 [facility] ECG INC INC W/LEAST 12 LDS TRCG ONLY W/O I&R CREATINE 92331 LINETTE SUE KINASE MB 9 [facility] FRACTION INC INC ONLY ECG 91767 LINETTE GREEN[place], ROUTINE 9 [facility] ECG HOSPITAL W/LEAST PROF SERV 12 LDS I&[place] [address] LEONEL ZULLY, ANGIOGRAP 9 MEDICAL OLESYA HY IMAGING ABDOMEN ASSOCIATE W/CONTRAS S T/NONCONT RAST BLOOD 28381 LIN[facility] SUE COUNT 9 [facility] COMPLETE INC INC AUTO&AUTO DIFRNTL WBC CREATINE 03782 LINETTE SUE KINASE 9 [facility] [place] [address] LINETTE SUE TROPONIN 9 [facility] QUANTITAT INC INC RUPA BASIC 21088 LINETTE SUE METABOLIC 9 [facility] PANEL INC INC CALCIUM TOTAL 3D 17027 LINETTE SUE RENDERING 9 [facility] W/INTERP INC INC & POSTPROCE SS SUPERVISI ON DUPLEX 48833 NESAS LAWSON 9 MEDICAL CHAD P EXTRACRAN IMAGING IAL ART ASSOCIATE COMPL BI S STUDY MRI BRAIN 54573 OLESYA C ZULLY, BRAIN 8 ZULLY OLESYA STEM W/O W/CONTRAS T MATERIAL LIPID 64959 [facility] SUE PANEL 8 [facility] INC INC COMPREHEN 04586 [facility] SUE SIVE 8 [facility] METABOLIC INC INC PANEL SPECIAL 82839 [facility] STAIN 8 [facility]IN[facility] GROUP 1 LABORATOR LABORATOR MICROORGA Y Y NISMS I&[place] [address] [facility] SURG 8 CLINIC CLINIC PATHOLOGY LABORATOR LABORATOR Y Y GROSS&[place] [address] [facility] ABDOMINAL 8 [place] Agu[facility] REAL CLINIC TIME PSC W/[place] [address] [facility], RETROPERI 8 [place] [facility] [facility] TONEAL CLINIC REAL TIME PSC W/IMAGE LIMITED ANTIBODY 95531 [facility] HELICOBAC 8 CLINIC CLINIC TER LABORATOR LABORATOR PYLORI Y Y COLLECTIO 09431 [facility] N VENOUS 8 CLINIC CLINIC BLOOD LABORATOR LABORATOR VENIPUNCT Y Y URE CREATINE 13028 LINETTE SUE KINASE MB 8 [facility] [place] [address] RAMSES LAWSON 8 ULI Malagon HY IMAGING ABDOMEN ASSOCIATE W/CONTRAS S T/NONCONT RAST ECG 54053 FRANCESCA VALIENTE 8 [facility] W/LEAST PROF SERV 12 LDS I&R ONLY CREATINE 26678 LINETTE SUE KINASE 8 [facility] [place] [address] LINETTE SUE TROPONIN 8 [facility] QUANTITAT INC INC RUPA BLOOD 09435 LINETTE SUE COUNT 8 [facility] COMPLETE INC INC AUTO&AUTO DIFRNTL WBC THROMBOPL 78198 LINETTE SUE ASTIN 8 [facility] TIME INC INC PARTIAL PLASMA/WH OLE BLOOD RADIOLOGI 48006 Marbella LAWSON 8 MEDICAL CHAD P EXAMINATI IMAGING ON CHEST ASSOCIATE SINGLE S VIEW FRONTAL ECG 52850 LINETTE SUE ROUTINE 8 [facility] ECG INC INC W/LEAST 12 LDS TRCG ONLY W/O I&R PROTHROMB 59164 LINETTE SUE IN TIME 8 [facility] INC INC BASIC 48191 LINETTE SUE METABOLIC 8 [facility] [place] [address] LINETTE SUE PARATHORM 8 [facility] [place] [address] LINETTE SUE PHOSPHORU 8 [facility] S INC INC INORGANIC CALCIUM 27679 LINETTE SUE IONIZED 8 [facility] INC INC CALCIUM 82106 LINETTE SUE TOTAL 8 [facility] INC INC RADEX 09106 [place] ZULLY, SPINE 8 MEDICAL OLESYA LUMBOSACR IMAGING AL ASSOCIATE MINIMUM 4 S VIEWS OPHTH 69114 [place], [place], MEDICAL 8 MICHAEL A MICHAEL A XM&EVAL COMPRE NEW PT 1/> VST DUPLEX 67099 [facility] Z[facility], SCAN 8 MEDICAL OLESYA EXTRACRAN IMAGING IAL [place] [address] [place] ZULLY, CERVICAL 8 MEDICAL OLESYA SPINE W/[place] [address] [place] ZULLY, HEAD/BRAI 8 MEDICAL OLESYA N W/O IMAGING CONTRAST ASSOCIATE MATERIAL S RADIOLOGI 59516 [place] ZULLY C 8 MEDICAL OLESYA EXAMINATI IMAGING ON CHEST ASSOCIATE SINGLE S VIEW FRONTAL 3D 75374 [facility] ZULL[facility], RENDERING 8 MEDICAL OLESYA IMAGING W/INTERP& ASSOCIATE POSTPROC S DIFF WORK STATION AMB A0427 [facility] SERVICE 8 AMBULANCE AMBULANCE ALS SERVICE SERVICE EMERGENCY TRANSPORT LEVEL 1 AMB A0422 [facility] OXYGEN&O2 8 AMBULANCE AMBULANCE SUPPLIES SERVICE SERVICE LIFE SUSTAININ G SITUATION 3D 32793 [place] ZULLY, RENDERING 8 MEDICAL OLESYA W/INTERP IMAGING & ASSOCIATE POSTPROCE S SS SUPERVISI ON GROUND A0425 [facility] MILEAGE 8 AMBULANCE AMBULANCE PER SERVICE SERVICE STATUTE MILE THYROID 63732 [place] LUDY, SAVANA 8 MEDICAL CHAD P W/UPTAKE IMAGING SINGLE ASSOCIATE DETERMINA S TION IODINE A9516 LINETTE SUE I-123 8 [facility] SODIUM INC INC IODIDE DX PER 100 UCI TO 999 THYROID 24902 LINETTE SUE UPTAKE 8 [facility] SINGLE INC INC DETERMINA TION COMPREHEN 86801 LIN[facility]TE SUE SIVE 8 [facility] METABOLIC INC INC PANEL ECG 37441 LIN[facility] SUE ROUTINE 8 [facility] ECG INC INC W/LEAST 12 LDS TRCG ONLY W/O I&R CREATINE 68144 LINETTE SUE KINASE MB 8 [facility] FRACTION INC INC ONLY ECG 92343 LINETTE MCCLAIN, ROUTINE 8 [facility] ECG HOSPITAL W/LEAST PROF SERV 12 LDS I&R ONLY BLOOD 84082 LINETTE SUE COUNT 8 [facility] COMPLETE INC INC AUTO&[place] [address] LINETTE SUE TROPONIN 8 [facility] QUANTITAT INC INC RUPA CREATINE 05971 LINETTE SUE KINASE 8 [facility] TOTAL INC INC URNLS DIP 49362 [facility] SUE 8 [facility] STICK/TAB INC INC LET REAGENT AUTO MICROSCOP Y URNLS DIP 99764 [facility] 8 CLINIC CLINIC STICK/TAB LABORATOR LABORATOR LET Y Y REAGENT AUTO MICROSCOP Y COLLECTIO 94077 [facility] N VENOUS 8 CLINIC CLINIC BLOOD LABORATOR LABORATOR VENIPUNCT Y Y URE RENAL 69604 [facility] FUNCTION 8 CLINIC CLINIC PANEL LABORATOR LABORATOR Y Y ECG 80263 [facility] SUE ROUTINE 8 [facility] ECG INC INC W/LEAST 12 LDS TRCG ONLY W/O I&R CREATINE 14956 LINETTE SUE KINASE MB 8 [facility] FRACTION INC INC ONLY ECG 54048 LINETTE [place], ROUTINE 8 [facility] HOSPITAL W/LEAST PROF SERV 12 LDS I&R ONLY HOSPITAL G0378 LINETTE SUE OBSERVATI 8 [facility] ON INC INC SERVICE PER HOUR CREATINE 62468 LINETTE SUE KINASE 8 [facility] [place] [address] LINETTE SUE TROPONIN 8 [facility] QUANTITAT INC INC RUPA OBSERVATI 34652 NANDINI GRIFFIN ON CARE 8 [facility] NETTIE DISCHARGE INTERNAL MED MANAGEMEN T BASIC 22198 LINETTE SUE METABOLIC 8 [facility] [place] [address] LINETTE SUE TROPONIN 8 [facility] QUANTITAT INC INC RUPA BLOOD 06755 LINETTE SUE COUNT 8 [facility] COMPLETE INC INC AUTO&AUTO DIFRNTL WBC CREATINE 06555 LINETTE SUE KINASE 8 [facility] TOTAL INC INC ECG 34310 LINETTE [place], ROUTINE 8 [facility] HOSPITAL W/LEAST PROF SERV 12 LDS I&R ONLY CREATINE 22606 LINETTE SUE KINASE MB 8 [facility] FRACTION INC INC ONLY ECG 96626 LINETTE SUE ROUTINE 8 [facility] ECG INC INC W/LEAST 12 LDS TRCG ONLY W/O I&R PROTHROMB 97471 LINETTE SUE IN TIME 8 [facility] INC INC RHYTHM 87511 LINETTE SUE ECG 1-3 8 [facility] LEADS INC INC TRACING ONLY W/O I&R INITIAL 42526 LISSY NICK 8 [facility] ON INTERNAL CARE/DAY MED 30 MINUTES RADIOLOGI 81885 [facility]ella LOPEZ 8 MEDICAL CHAD P EXAMINATI IMAGING ON CHEST ASSOCIATE SINGLE S VIEW FRONTAL CT THORAX 32999 [facility] LOPEZ MEDICAL CHAD P W/CONTR[place] [address] [place] LUDY, ABDOMEN 8 MEDICAL CHAD P W/CONTRAS IMAGING T ASSOCIATE MATERIAL S RADEX 00299 [place] ZULLY, SPINE 8 MEDICAL OLESYA CERVICAL IMAGING 6 OR MORE ASSOCIATE VIEWS S CT PELVIS 77522 Dawn LAWSON MEDICAL CHAD P W/CONTRAS IMAGING T ASSOCIATE MATERIAL S US SOFT 78719 [facility] EDMONDDevin [place] TISSUE 8 MEDICAL CHAD P HEAD & IMAGING NECK REAL ASSOCIATE TIME S IMGE DOCM 3D 48855 CRESCENCIO LAWSON 8 MEDICAL CHAD P IMAGING W/INTERP& ASSOCIATE POSTPROC S DIFF WORK STATION COMPREHEN 76189 LINETTE SUE SIVE 8 [facility] [place] [address] LINETTE SUE THYROXINE 8 [facility] TOTAL INC INC LIPID 05885 LINETTE SUE PANEL 8 [place] [address] LINETTE SUE FOLIC 8 [facility] [place] [address] LINETTE SUE THYROID 8 [facility] STIMULATI INC INC NG HORMONE TSH CYANOCOBA 78721 LINETTE SUE JUAN 8 [facility] VITAMIN INC INC B-12 HEMOGLOBI 12870 LINETTE SUE N 8 [facility] GLYCOSYLA INC INC SONG A1C BLOOD 73539 LINETTE SUE COUNT 8 [facility] COMPLETE INC INC AUTO&AUTO DIFRNTL WBC BLOOD 68813 LINETTE SUE COUNT 8 [facility] COMPLETE INC INC AUTO&[place] [address] LINETTE SUE TROPONIN 8 [facility] QUANTITAT INC INC RUPA CREATINE 58554 LINETTE SUE KINASE 8 [facility] TOTAL INC INC CREATINE 99207 LINETTE SUE KINASE MB 8 [facility] FRACTION INC INC ONLY HOSPITAL G0378 LINETTE SUE OBSERVATI 8 [facility] ON INC INC SERVICE PER HOUR ECG 27518 FRANCESCA VALIENTE 8 [facility] ECG HOSPITAL W/LEAST PROF SERV 12 LDS I&R ONLY LIPID 04818 LINETTE SUE PANEL 8 [facility] INC INC GROUND A0425 [facility] AM[facility]ULANCE PER SERVICE SERVICE STATUTE MILE L HRT 10664 SUDHIR SOLANO 8 HEART & AMADOR Y ZATION VASCULAR [place] [address] LEONEL SUMMERS C-CATHJ 8 HEART & AMADOR Y F/SLCTV C VASCULAR ANGRPH ASSOC I SI&R 52497 LEONEL SUMMERS, F/NJX PX 8 HEART & AMADOR Y DURING VASCULAR C-CATHJ ASSOC VENTR&/AT R ANGRPH I SI&R 01605 LEONEL SUMMERS, F/NJX PX 8 HEART & AMADOR Y DURING VASCULAR C-CATHJ ASSOC PULM&/OR SELECT ECG 46942 LINETTE SUE ROUTINE 8 [facility] ECG INC INC W/LEAST 12 LDS TRCG ONLY W/O I&R NONINVASI 64830 LINETTE SUE VE 8 [facility] EAR/PULSE INC INC OXIMETRY SINGLE DETER INJECTION 31304 LEONEL SUMMERS, CARDIAC 8 HEART & AMADOR Y CATHJ L VASCULAR VENTR/L ASSOC ATR ANGIOGRAP H BASIC 51431 LINETTE SUE METABOLIC 8 [facility] PANEL INC INC CALCIUM TOTAL INITIAL 37184 LEONEL SUMMERS, INPATIENT 8 HEART & AMADOR Y CONSULT VASCULAR NEW/ESTAB ASSOC PT 80 MIN NONINVASI 25665 LINETTE SUE VE 8 [facility] EAR/PULSE INC INC OXIMETRY SINGLE DETER ECG 32734 LINETTE SUE ROUTINE 8 [facility] ECG INC INC W/LEAST 12 LDS TRCG ONLY W/O I&R RHYTHM 50049 LINETTE SUE ECG 1-3 8 [facility] LEADS INC INC TRACING ONLY W/O I&R PROTHROMB 78706 LINETTE SUE IN TIME 8 [facility] INC INC COMPREHEN 27246 LINETTE SUE SIVE 8 [facility] METABOLIC INC INC PANEL THROMBOPL 03958 LINETTE SUE ASTIN 8 [facility] TIME INC INC PARTIAL PLASMA/WH OLE BLOOD RADIOLOGI 80821 LINETTE SUE C 8 [facility] EXAMINATI INC INC ON CHEST SINGLE VIEW FRONTAL ECG 64843 LINETTE MCCLAIN, ROUTINE 8 [facility] ECG HOSPITAL W/LEAST PROF SERV 12 LDS I&R ONLY HOSPITAL G0378 LINETTE SUE OBSERVATI 8 [facility] ON INC INC SERVICE PER HOUR CREATINE 23725 LINETTE SUE KINASE MB 8 [facility] FRACTION INC INC ONLY CREATINE 55237 LINETTE SUE KINASE 8 [facility] [place] [address] LINETTE SUE TROPONIN 8 [facility] QUANTITAT INC INC RUPA NATRIURET 87209 LINETTE SUE IC 8 [facility] PEPTIDE INC INC BLOOD 77912 LINETTE SUE COUNT 8 [facility] COMPLETE INC INC AUTO&AUTO DIFRNTL WBC MRI 84544 OLESYA C ZULLY, SPINAL 8 ZULLY OLESYA CANAL CERVICAL W/O CONTRAST MATRL MRI 75692 OLESYA C ZULLY, SPINAL 8 ZULLY OLESYA CANAL LUMBAR W/O CONTRAST MATERIAL SERVICES 24474 Brigida CALVILLO MD C OFFICE PSC OTH/THN REG SCHED HOURS Encounters Encounter Start End Date Code Location Performer Type Date OFFICE 47245 [facility] Mya OUTPATIEN 7 7 PHYSICIAN T VISIT S GROUP 25 MINUTES OFFICE 45513 [facility] [place] OUTPATIEN 7 7 PHYSICIAN T VISIT S GROUP 15 MINUTES HOSPITAL [facility] - 7 7 [facility] OUTPATIEN INC T OFFICE 91565 [facility] [place] OUTPATIEN 7 7 PHYSICIAN T NEW 20 S GROUP MINUTES OFFICE 06847 LAVINIA TOWNSEND OUTPATIEN 7 7 Kate TOWNSEND MD,[facility] 25 MINUTES HOSPITAL [facility] - 7 7 [facility] OUTPATIEN INC [facility] - 7 7 [facility] OUTPATIEN INC T OFFICE 52323 [facility] [place] OUTPATIEN 7 7 PHYSICIAN T VISIT S GROUP 25 MINUTES OFFICE 55854 GAIL MONROE OUTPATIEN 7 7 MEDICAL T VISIT SERV 15 FOUNDATIO MINUTES N OFFICE 80295 OUTPATIEN 7 7 [facility] T VISIT 5 E MINUTES [facility]OS[facility]ALS [facility] - 7 7 [facility] OUTPATIEN E T HOSPITALS EMERGENCY 61290 DEMETRIS BARTH DEPT 7 7 PHYSICIAN VISIT S, [facility] HIGH SEVERITY& THREAT [facility] LINETTE - 7 7 [facility] OUTPATIEN INC [facility] LIN[facility] - 7 7 [facility] OUTPATIEN INC T OFFICE 56031 KATE KATE OUTPATIEN 7 7 Kate TOWNSEND MD,[facility] 25 MINUTES [facility] LIN[facility] - 7 7 [facility] OUTPATIEN INC [facility] LIN[facility] - 7 7 [facility] OUTPATIEN INC T OFFICE 50244 [facility] [place] OUTPATIEN 7 7 PHYSICIAN T VISIT S GROUP 40 MINUTES [facility] LINETTE - 7 7 [facility] OUTPATIEN INC T OFFICE 14215 [facility] [place] OUTPATIEN 7 7 PHYSICIAN T VISIT S GROUP 40 MINUTES HOSPITAL [facility] - 7 7 [facility] OUTPATIEN INC T OFFICE 46024 KATE KATE OUTPATIEN 7 7 Kate TOWNSEND MD,[facility] 15 MINUTES [facility]OSPITAL [facility] - 7 7 [facility] OUTPATIEN INC T OFFICE 99616 [facility] OUTPATIEN 7 7 PHYSICIAN T VISIT S GROUP 40 MINUTES HOSPITAL [facility] - 7 7 [facility] OUTPATIEN INC T OFFICE 20398 [facility] [place] OUTPATIEN 7 7 PHYSICIAN T VISIT S GROUP 15 MINUTES OFFICE 09969 [facility] CB OUTPATIEN 7 7 PHYSICIAN T VISIT 5 S GROUP MINUTES EMERGENCY 30047 [facility] 7 7 [facility] DEPARTMEN INC T VISIT HIGH/URGE NT SEVERITY [facility] - 7 7 [facility] OUTPATIEN INC T OFFICE 29350 LIN[facility]TE LEIVA OUTPATIEN 7 7 [facility] VISIT HOSPITAL 10 P MINUTES EMERGENCY 00938 DEMETRIS ANDERS DEPT 7 7 PHYSICIAN VISIT S, PLLC HIGH SEVERITY& THREAT [facility]J EMERGENCY 17279 [facility] 7 7 [facility] DEPARTMEN INC T VISIT LOW/MODER SEVERITY [facility] - 7 7 [facility] OUTPATIEN INC T OFFICE 47024 DARCIEGLEN VENITA OUTPATIEN 7 7 T NEW 30 CHIROPRAC MINUTES [facility]TE - 7 7 [facility] OUTPATIEN INC T OFFICE 74304 LAVINIA KATE OUTPATIEN 7 7 KRISTIAN, T VISIT ,[facility] 25 MINUTES OFFICE 48522 [facility] MCKEON 7 7 [facility] T VISIT 5 INC MINUTES HOSPITAL [facility] - 7 7 [facility] OUTPATIEN INC T [facility]OSPITAL [facility] - 7 7 [facility] OUTPATIEN INC T [facility]OSPITAL [facility] - 7 7 [facility] OUTPATIEN INC T [facility]OSPITAL [facility] - 7 7 [facility] OUTPATIEN INC T OFFICE 56875 [facility] OUTPATIEN 7 7 PHYSICIAN T VISIT S GROUP 25 MINUTES HOSPITAL [facility] - 7 7 [facility] OUTPATIEN INC [facility]PITAL [facility] - 7 7 [facility] OUTPATIEN INC T EMERGENCY 96758 [facility] 7 7 [facility] DEPARTMEN INC T VISIT MODERATE SEVERITY EMERGENCY 70991 DEMETRIS HUYNH DEPT 7 7 PHYSICIAN U VISIT S, PLLC HIGH SEVERITY& THREAT FUNCJ OFFICE 70106 [facility] LEIVA OUTPATIEN 7 7 [facility] 15 P MINUTES OFFICE 78875 JACOBO GODINEZ OUTPATIEN 7 7 [facility] T VISIT MEDICAL 15 G MINUTES HOSPITAL [facility] - 6 6 [facility] OUTPATIEN INC T OFFICE 53053 [facility] [place] OUTPATIEN 6 6 PHYSICIAN T VISIT S GROUP 25 MINUTES HOSPITAL [facility] - 6 6 [facility] OUTPATIEN INC T OFFICE 87004 LAVINIA TOWNSEND OUTPATIEN 6 6 Kate TOWNSEND MD,[facility] 25 MINUTES OFFICE 82377 LINETTE LEIVA OUTPATIEN [address] [facility] T VISIT HOSPITAL 10 P MINUTES OFFICE 98216 MIDDLETONCARLINE FERRARA MIDDLETONCARLINE FERRARA OUTPATIEN 6 6 T VISIT 10 MINUTES EMERGENCY 02458 DEMETRIS ANDERS DEPT 6 6 PHYSICIAN CHARLEY VISIT S, [facility] HIGH SEVERITY& THREAT FUNCJ EMERGENCY 50800 [facility] 6 6 [facility] DEPARTMEN INC T VISIT HIGH/URGE NT SEVERITY [facility] T OFFICE 67612 LAVINIA ALDANA OUTPATIEN 6 6 STEPHEN TOWNSEND MD,[facility] MINUTES HOSPITAL [facility] - 6 6 [facility] OUT[facility] INC T EMERGENCY 90354 [facility] 6 6 [facility] DEPARTMEN INC T VISIT MODERATE SEVERITY EMERGENCY 48279 DEMETRIS ANDERS 6 6 PHYSICIAN CHARLEY DEPARTMEN S, [facility] T VISIT HIGH/URGE NT SEVERITY [facility] 6 [facility] OUT[facility] T OFFICE 35671 [facility] ESQUIVEL OUTPATIEN 6 6 PHYSICIAN T VISIT S GROUP 10 MINUTES [facility] T OFFICE 33640 [facility] CB TOD OUTPATIEN 6 6 PHYSICIAN T VISIT 5 S GROUP MINUTES OFFICE 21505 [facility] [place] OUTPATIEN 6 6 PHYSICIAN CHARLEY T VISIT S GROUP 15 MINUTES [facility] 6 6 [facility] T [facility] 6 [facility] INC T OFFICE 69580 [facility] [place] OUTPATIEN 6 6 PHYSICIAN MAT T VISIT S GROUP 25 MINUTES [facility] - 6 6 [facility] INC T OFFICE 56673 [facility] CB TOD CONSULTAT 6 6 PHYSICIAN ION S GROUP NEW/ESTAB PATIENT 30 MIN OFFICE 66430 [facility] [place] OUTPATIEN 6 6 PHYSICIAN CHARLEY T VISIT S GROUP 10 MINUTES OFFICE 10093 [facility] [place] OUTPATIEN 6 6 PHYSICIAN CHARLEY T VISIT S GROUP 10 MINUTES OFFICE 81408 BOYD ASHER OUTPATIEN 6 6 MD JERMAINE, T VISIT PSC 15 MINUTES OFFICE 44087 [facility] [place] OUTPATIEN 6 6 PHYSICIAN CHARLEY T VISIT S GROUP 10 MINUTES OFFICE 97132 BOYD ASHER OUTPATIEN 6 6 MD JERMAINE, T VISIT PSC 15 MINUTES OFFICE 86603 PROGRESSI BANDAR OUTPATIEN 6 6 VE TEREZA T NEW 30 PODIATRY MINUTES OFFICE 90131 [facility] [place] OUTPATIEN 6 6 PHYSICIAN EUG T VISIT S GROUP 15 MINUTES OFFICE 17235 BOYD BARRETT OUTPATIEN 6 6 MD JERMAINE, T VISIT PSC 25 MINUTES OFFICE 60512 [facility] 6 6 [facility] T VISIT INC 10 MINUTES [facility] 6 6 [facility] - 6 6 [facility] OUTPATIEN [facility] - 6 6 [facility]IEN [facility] OFFICE 44344 [place] [facility] CON[facility]ULT[facility] 6 6 MEDICAL THO ION SERV NEW/ESTAB FOUNDATIO PATIENT N 40 MIN OFFICE 38897 [facility] Y T VISIT 5 HOSPITAL MINUTES [facility] 6 [facility] OFFICE 65361 SCIFRES SCIFRES [facility] 6 6 ANG ANG T VISIT 10 MINUTES [facility] - 6 6 [facility]PATIEN [facility] OFFICE 97611 BOYD LE [facility] 6 6 MD JERMAINE, T VISIT PSC 15 MINUTES EMERGENCY 77922 [facility] DEPT 6 6 PHYSICIAN VISIT S, [facility] HIGH SEVERITY& THREAT [facility] - 6 6 [facility]IEN [facility] EMERGENCY 57484 [facility] 6 6 [facility] T VISIT [facility]IGH/URGE NT SEVERITY [facility] - 6 6 [facility] OUTPATIEN [facility] - 6 6 [facility] [facility] - 5 5 [facility] - 5 5 [facility] EMERGENCY 21299 [facility] 5 5 [facility] DEPARTMEN [facility] T VISIT LOW/MODER SEVERITY EMERGENCY 38446 [facility] 5 5 PHYSICIAN DEPARTMEN S, [facility] T VISIT MODERATE SEVERITY OFFICE 07094 [facility] OUTPATIEN 5 5 PHYSICIAN CHARLEY T VISIT S GROUP 10 MINUTES OFFICE 97054 [facility]AC[facility] OUTPATIEN 5 5 [facility] T VISIT MEDICAL 15 G MINUTES HOSP[facility] - 5 5 [facility] INC T OFFICE 16065 BOYD LE LB OUTPATIEN 5 5 MD JERMAINE, T VISIT [facility] 15 MINUTES HOSPITAL [facility] - 5 5 [facility] T [facility] - 5 5 [facility] INC T OFFICE 85617 BOYD DALLASISI BARRETT OUTPATIEN 5 5 MD JERMAINE, T VISIT [facility] 15 MINUTES HOSPITAL [facility] - 5 5 [facility] INC T OFFICE 35410 [facility] ESCOBARKINS OUTPATIEN [address] [facility] T VISIT HOSPITAL 10 P MINUTES EMERGENCY 65920 DEMETRIS HUYNH 5 5 PHYSICIAN Dee DANIELS S, [facility] T VISIT HIGH/URGE NT SEVERITY OFFICE 82538 [facility] LEIVA OUTPATIEN [address] [facility] VISIT HOSPITAL 15 P MINUTES OFFICE 61843 MADAR BUX BUX ANJ OUTPATIEN 5 5 T VISIT 10 MINUTES HOSP[facility] - 5 5 [facility] T OFFICE 42877 CARDIOVAS CHAYO OUTPATIEN 5 5 CULISI MAT T VISIT CONSULTAN 15 TS O MINUTES [facility] - 5 5 [facility] T OFFICE 77835 MADAR BUX BUX ANJ OUTPATIEN 5 5 T NEW 30 MINUTES [facility] - 5 5 [facility] - 5 5 [facility] T OFFICE 45627 CARDIOVAS CHAYO OUTPATIEN 5 5 CULAR MAT T NEW 45 CONSULTAN MINUTES TS O OFFICE 81163 [facility] OUTPATIEN 5 5 PHYSICIAN CHARLEY T VISIT S GROUP 10 MINUTES [facility]OSP[facility] - 5 5 [facility] OUT[facility] INC T EMERGENCY 78970 [facility] 5 5 [facility] DEPARTMEN INC T VISIT HIGH/URGE NT SEVERITY [facility] - 5 5 [facility] T OFFICE 98420 [facility] GRET[facility]EN OUTPATIEN 4 4 [facility] T VISIT MEDICAL 10 G MINUTES HOSP[facility] - 4 4 [facility] T [facility] - 4 4 [facility] INC T OFFICE 45006 LEIVA LEIVA OUTPATIEN 4 4 ART ART T VISIT 15 MINUTES OFFICE 97591 LEIVA LEIVA OUTPATIEN 4 4 ART ART T VISIT 15 MINUTES [facility] - 4 4 [facility] INC T EMERGENCY 78187 JAIDEN CAMILLA JAIDEN CAMILLA 4 4 DEPARTMEN T VISIT HIGH/URGE NT SEVERITY OFFICE 75342 GRETCHEN GODINEZ OUTPATIEN 4 4 [facility] ADE HAM T NEW 45 MINUTES OFFICE 52017 [facility] OUTPATIEN 4 4 [facility] T VISIT 10 MINUTES EMERGENCY 72404 [facility] 4 4 [facility] DEPARTMEN INC T VISIT MODERATE SEVERITY [facility] - 4 4 [facility] INC T EMERGENCY 27079 BETH CAMPOS 4 4 III AREN III AREN DEPARTMEN T VISIT HIGH/URGE NT SEVERITY [facility] - 4 4 [facility] INC T EMERGENCY 06734 BETH CAMPOS DEPT 4 4 III AREN III AREN VISIT HIGH SEVERITY& THREAT [facility] OFFICE 07287 [facility] ANDERS OUTPATIEN 4 4 CHARLEY CHARLEY T NEW 30 MINUTES EMERGENCY 06352 [facility] DEPT 4 4 [facility] VISIT INC HIGH SEVERITY& THREAT [facility] LINETTE - 4 4 [facility] OUTPATIEN [facility] T OFFICE 00224 VITAGRANT TREVINO OUTPATIEN 4 4 T [facility] 45 [facility] LINETTE - 3 3 [facility] OUTPATIEN [facility] T OFFICE 06992 NATHALY ANDERSEN OUTPATIEN 3 3 JR AREN RAI AREN T VISIT 15 MINUTES OFFICE 84235 [facility] 3 3 Y T [facility] 10 [facility]ERS[facility] - 3 3 Y [facility] T OFFICE 38969 POPEYE PHI POPEYE PHI CONSULTAT 3 3 ION NEW/ESTAB PATIENT 40 MIN [facility]OSP[facility] - 3 3 [facility] - 3 3 [facility] OUTPATIEN [facility] T OFFICE 67939 NATHALY CRMIHira OUTPATIEN 3 3 JR AREN YOUNGER T VISIT 15 MINUTES HOSPITAL [facility] - 3 3 [facility] - 3 3 [facility] - 3 3 [facility] OUTPATIEN INC T OFFICE 04181 LAUREN AGUILAR OUTPATIEN 3 3 SAVITA SAVITA T VISIT 15 MINUTES HOSPITAL [facility] - 3 3 [facility]PATIEN INC T OFFICE 58880 MCKEMIE MCKEMIE OUTPATIEN 3 3 JR AREN YOUNGER T VISIT 15 MINUTES OFFICE 91292 MCKEMIE MCKEMIE OUTPATIEN 3 3 JR AREN YOUNGER T VISIT 15 MINUTES [facility]OSP[facility] - 3 3 [facility]PATI[facility] INC T OFFICE 60000 MCKEMIE MCKEMIE OUTPATIEN 3 3 JR AREN YOUNGER T VISIT 15 MINUTES EMERGENCY 42534 VOLODYMYR BRADFORD 3 3 [facility] DEPART[facility] SERVICES T VISIT HIGH/URGE NT SEVERITY [facility] - 3 3 [facility] OUTPATIEN INC T EMERGENCY 04665 [facility] 3 3 [facility] DEPARTMEN INC T VISIT LOW/MODER SEVERITY OFFICE 87446 MCKEMIE MCKEMIE OUTPATIEN 3 3 JR AREN YOUNGER T VISIT 15 MINUTES EMERGENCY 56750 [facility] 3 3 [facility] DEPARTMEN INC T VISIT HIGH/URGE NT SEVERITY [facility]OSP[facility] - 3 3 [facility] OUTPATIEN INC T EMERGENCY 26836 [facility] DEPT 3 3 CHARLEY CHARLEY VISIT HIGH SEVERITY& THREAT [facility] HOSPITAL [facility] - 3 3 [facility] OUTPATIEN INC T OFFICE 69504 MCKEMIE MCKEMIE OUTPATIEN 3 3 JR AREN YOUNGER T VISIT 15 MINUTES HOSPITAL [facility] - 3 3 [facility] OUTPATIEN INC T EMERGENCY 11797 [facility] 3 3 [facility] DEPARTMEN INC T VISIT HIGH/URGE NT SEVERITY EMERGENCY 88015 [facility] DEPT 3 3 CHARLEY CHARLEY VISIT HIGH SEVERITY& THREAT [facility] HOSPITAL [facility] - 2 2 [facility] OUTPATIEN INC T [facility] 2 2 [facility] INC T OFFICE 18330 CALI ESCOBARKINS OUTPATIEN 2 2 ART ART T VISIT 5 MINUTES [facility] - 2 2 [facility] T [facility] - 2 2 [facility] INC T OFFICE 84418 LEIVA LEIVA OUTPATIEN 2 2 ART ART T NEW 20 MINUTES [facility] - 2 2 [facility] INC T OFFICE 03125 JAMA YUN OUTPATIEN 2 2 ARPAN ANTONY T VISIT 15 MINUTES [facility]OSP[facility] - 2 2 [facility]PATI[facility] INC T OFFICE 32990 JAMA YUN OUTPATIEN 2 2 ARPAN ANTONY T VISIT 15 MINUTES OFFICE 77347 NICK ROMERO OUTPATIEN 2 2 JAM JAM T NEW 60 MINUTES OFFICE 90303 MCKEMIE RUTKEMIE OUTPATIEN 2 2 JR AREN YOUNGER T VISIT 15 MINUTES [facility]OSP[facility] - 2 2 [facility] INC T OFFICE 35676 JOHNY MCCLAIN OUTPATIEN 2 2 CAMILLA CAMILLA T VISIT 25 MINUTES OFFICE 88834 KANE FERRARA OUTPATIEN 2 2 T VISIT 10 MINUTES EMERGENCY 45380 [facility] 2 2 [facility] DEPARTMEN INC T VISIT HIGH/URGE NT SEVERITY EMERGENCY 26670 [facility] CAMP[facility] DEPT 2 2 III AREN III AREN VISIT HIGH SEVERITY& THREAT [facility] LINETTE - 2 2 [facility] OUTPATIEN INC T OFFICE 92693 MCKEMIE MCKEMIE OUTPATIEN 2 2 JR AREN JR AREN T VISIT 15 MINUTES OFFICE 55633 EDGE DONNIE FRANCES DONNIE OUTPATIEN 2 2 T NEW 10 MINUTES [facility] - 2 2 [facility]PAT[facility] INC T OFFICE 89230 ODALYS MORROW LB OUTPATIEN 2 2 T VISIT 10 MINUTES EMERGENCY 24653 [facility] 2 2 [facility] DEPARTMEN INC T VISIT MODERATE SEVERITY EMERGENCY 26031 BETH BAINALYSON DEPT 2 2 III AREN III AREN VISIT HIGH SEVERITY& THREAT FUN [facility] - 2 2 [facility] OUTPATIEN INC T EMERGENCY 29920 BARAHONA MICHELLE BARAHONA MICHELLE DEPT 1 1 VISIT HIGH SEVERITY& THREAT FUNJ EMERGENCY 91241 LINETTE 1 1 [facility] DEPARTMEN INC T VISIT MODERATE SEVERITY [facility] - 1 1 [facility] INC T OFFICE 09681 [facility] BESSON OUTPATIEN 1 1 [facility] VISIT INTERNAL 25 MED MINUTES OFFICE 17785 ODALYS MORROW LB OUTPATIEN 1 1 T NEW 30 MINUTES OFFICE 23876 BISHNU MORRISON JR OUTPATIEN 1 1 [facility] VISIT CLINIC 15 PSC MINUTES OFFICE 59958 BISHNU FELDER OUTPATIEN 1 1 [facility] VISIT CLINIC 25 PSC MINUTES OFFICE 81387 [place] BESSON OUTPATIEN 1 1 [facility] VISIT INTERNAL 25 MED MINUTES OFFICE 33271 BISHNU MCCORMACK CONSULTAT 1 1 [facility] CLINIC NEW/ESTAB PSC PATIENT 80 MIN HOSPITAL [facility] - 1 1 [facility] T OFFICE 27997 [facility] BESSON OUTPATIEN 1 1 [facility] VISIT INTERNAL 15 MED MINUTES HOSPITAL [facility] - 1 1 [facility] EMERGENCY 28289 VOLODYMYR CAMPOS DEPT 1 1 EMERGENCY III AREN VISIT SERVICES HIGH SEVERITY& THREAT FUNCJ EMERGENCY 05202 [facility] 1 1 [facility] T VISIT MODERATE SEVERITY OFFICE 95545 [facility] BESSON OUTPATIEN 1 1 [facility] VISIT INTERNAL 25 MED MINUTES OFFICE 76284 [facility] BESSON OUTPATIEN 1 1 [facility] VISIT INTERNAL 25 MED MINUTES HOSPITAL [facility] - 1 1 [facility] - 1 1 [facility] OFFICE 39862 [facility] BESSON OUTPATIEN 1 1 [facility] VISIT INTERNAL 25 MED MINUTES HOSPITAL [facility] - 1 1 [facility] - 1 1 [facility] OFFICE 23922 [facility] BESSON OUTPATIEN 1 1 [facility] VISIT INTERNAL 15 MED MINUTES [facility]OSP[facility] - 1 1 [facility] EMERGENCY 36174 [facility] 1 1 [facility] T VISIT HIGH/URGE NT SEVERITY EMERGENCY 35990 VOLODYMYR CAMPOS DEPT 1 1 EMERGENCY III AREN VISIT SERVICES HIGH SEVERITY& THREAT FUNJ OFFICE 94022 [place] MCKEMIE OUTPATIEN 1 1 [facility] AREN T VISIT INTERNAL 15 MED MINUTES OFFICE 71389 [place] MCKEMIE OUTPATIEN 1 1 [facility] AREN T VISIT INTERNAL 15 MED MINUTES OFFICE 06761 [place] BESSON OUTPATIEN 1 1 [facility] T VISIT INTERNAL 15 MED MINUTES HOSPITAL [facility] - 1 1 [facility] INC T [facility] - 1 1 [facility] OUTPAT[facility] INC T OFFICE 31142 [facility] LAUREN OUTPATIEN 1 1 NAHUN BARNEY T VISIT INTERNAL 15 MEDI MINUTES OFFICE 59528 [place] MCKEMIE OUTPATIEN 0 0 NAHUN YOUNGER T VISIT INTERNAL 15 MED MINUTES [facility]OSPITAL [facility] - 0 0 [facility]PAT[facility] INC T OFFICE 19462 [place] MCKEMIE OUTPATIEN 0 0 NAHUN YOUNGER T VISIT INTERNAL 15 MED MINUTES EMERGENCY 59550 [facility] EMERGENCY VISIT SERVICES HIGH SEVERITY& THREAT FUN OFFICE 25032 [facility] OUTPATIEN 0 0 NAHUN SAMPSON T VISIT INTERNAL 15 MED MINUTES OFFICE 70722 BISHNU MORRISON [facility]PATIEN 0 0 [facility] 15 PSC MINUTES OFFICE 42668 [place] MCKEMIE OUTPATIEN 0 0 NAHUN RAI, Kate VISIT INTERNAL MCKAYLA F 15 MED MINUTES EMERGENCY 44655 [facility] 0 0 [facility] DEPARTMEN INC T VISIT HIGH/URGE NT SEVERITY [facility] - 0 0 [facility] OUTPAT[facility]EN INC T OFFICE 11918 ALLRAN ALLRAN CONSULTAT 0 0 JR RAI ION CHARLES F CHARLES F NEW/ESTAB PATIENT 80 MIN OFFICE 79843 [facility] MCKEMIE OUTPATIEN 0 0 NAHUN RAI, T VISIT INTERNAL MCKAYLA F 15 MED MINUTES [facility]OSP[facility] - 0 0 [facility] INC T OFFICE 34416 [place] MCKEMIE OUTPATIEN 9 9 NAHUN RAI, Kate VISIT INTERNAL MCKAYLA F 15 MED MINUTES [facility]OSP[facility] - 9 9 [facility] INC T OFFICE 51670 GAIL SANCHEZ OUTPATIEN 9 9 ULI ESPINOZA T VISIT SERV 25 FOUNDATIO MINUTES HOSP[facility] - 9 9 [facility]PAT[facility]EN INC T [facility] - 9 9 [facility] INC T OFFICE 81374 [facility] JOHNY, OUTPATIEN 9 9 NAHUN Allred T VISIT INTERNAL 15 MED MINUTES OFFICE 03385 Lauren WAYNE OUTPATIEN 9 9 [facility] T VISIT CLINIC 15 PSC MINUTES OFFICE 88699 [place] MCKEMIE OUTPATIEN 9 9 NAHUN RAI, T VISIT INTERNAL MCKAYLA F 15 MED MINUTES HOSPITAL [facility] - 9 9 [facility] OUTPATI[facility] INC T EMERGENCY 84449 [facility] 9 9 [facility] DEPARTMEN INC T VISIT HIGH/URGE NT SEVERITY EMERGENCY 34733 VOLODYMYR MASON, DEPT 9 9 [facility] [place] VISIT SERVICES O HIGH SEVERITY& ASSOCIATE THREAT S FUNCJ OFFICE 11350 [facility] MCKEMIE OUTPATIEN 9 9 NAHUN RAI, T VISIT INTERNAL MCKAYLA F 15 MED MINUTES OFFICE 91291 [facility] ELIAS OUTPATIEN 9 9 NAHUN [place] T VISIT INTERNAL 15 MED MINUTES OFFICE 89539 [facility] BESDONNIE, OUTPATIEN 9 9 NAHUN Allred T VISIT INTERNAL 10 MED MINUTES OFFICE 48109 [facility] MCKEMIE OUTPATIEN 9 9 NAHUN RAI, T VISIT INTERNAL MCKAYLA F 15 MED MINUTES HOSP[facility] - 9 9 [facility] OUTPATIEN INC T OFFICE 71582 [place] ELIAS, OUTPATIEN 9 9 NAHUN SHEFFI[place] T VISIT INTERNAL 15 MED MINUTES HOSPITAL [facility] - 8 8 [facility] OUTPATIEN INC T OFFICE 88490 [facility] ELIAS, OUTPATIEN 8 8 NAHUN [place] T VISIT INTERNAL 15 MED MINUTES OFFICE 94104 [facility] ELIAS, OUTPATIEN 8 8 NAHUN [place] T VISIT INTERNAL 15 MED MINUTES OFFICE 09965 [facility] MCKEMIE OUTPATIEN 8 8 Kate GARNICA JR VISIT INTERNAL MCKAYLA F 15 MED MINUTES OFFICE 99745 Lauren WAYNE OUTPATIEN 8 8 [place] T VISIT CLINIC 15 PSC MINUTES EMERGENCY 65584 AMBERLY MASON, DEPT 8 8 [facility] [place] VISIT CORPORATI O HIGH ON SEVERITY& THREAT FUN EMERGENCY 49234 [facility] 8 8 [facility] DEPARTMEN INC T VISIT MODERATE SEVERITY [facility]OSP[facility] - 8 8 [facility] OUTPATIEN INC T OFFICE 89856 [place] MCKEMIE OUTPATIEN 8 8 NAHUN RAI, Kate VISIT INTERNAL MCKAYLA F 15 MED MINUTES HOSPITAL [facility] - 8 8 [facility] OUTPATIEN INC T OFFICE 96280 [place] MCKEMIE OUTPATIEN 8 8 NAHUN RAI, Kate VISIT INTERNAL MCKAYLA F 15 MED MINUTES HOSP[facility] - 8 8 [facility] OUTPATIEN INC T OFFICE 45702 [place] MCKEMIE OUTPATIEN 8 8 NAHUN RAI, T VISIT INTERNAL MCKAYLA F 15 MED MINUTES OFFICE 11854 Lauren WAYNE CONSULTAT 8 8 [place] [facility] CLIN[facility] NEW/ESTAB PSC PATIENT 60 MIN OFFICE 36308 NEW BEN OUTPATIEN 8 8 [place] III, T VISIT CLINIC RADHA L 10 PSC MINUTES OFFICE 86302 [place] MCKEMIE OUTPATIEN 8 8 NAHUN RAI, T VISIT INTERNAL MCKAYLA F 15 MED MINUTES HOSP[facility] - 8 8 [facility] OUTPATIEN INC T EMERGENCY 65143 [facility] 8 8 [facility] DEPARTMEN [facility] T VISIT HIGH/URGE NT SEVERITY HOSPITAL [facility] - 8 8 [facility] OUTPATIEN INC T EMERGENCY 88132 [facility] VALERO, 8 8 [facility] T VISIT PROF SERV MODERATE SEVERITY OFFICE 89346 NEW BEN OUTPATIEN 8 8 [place] III, T NEW 45 CLINIC RADHA L MINUTES [facility] HOSPITAL [facility] - 8 8 [facility] OUTPATIEN [facility] T EMERGENCY 33475 [facility] DEPT 8 8 [facility] VISIT [facility] HIGH SEVERITY& THREAT FUNCJ PERIODIC 38362 [facility] SHAYEMIHira PREVENTIV 8 8 Hira GARNICA JR MED EST INTERNAL [facility] PATIENT MED 40-64YRS [facility] LINETTE - 8 8 [facility] OUTPATIEN [facility] T OFFICE 23536 YAYO ZEE OUTPATIEN 8 8 LISBETH Love VISIT 40 MINUTES HOSPITAL [facility] - 8 8 [facility]EN [facility] - 8 8 [facility] OUTPATIEN [facility] EMERGENCY 80600 [facility] 8 8 [facility] T VISIT HIGH/URGE NT SEVERITY EMERGENCY 55493 [facility] COLMENARES DEPT 8 8 [facility] VISIT [facility] HIGH PROF SERV SEVERITY& THREAT FUNCJ OFFICE 35730 YAYO ZEE OUTPATIDERRICK 8 8 LISBETH Love VISIT 40 MINUTES OFFICE 35070 GAIL NYE, EBENEZER 8 8 MEDICAL LAKSHMI A ION SERV NEW/ESTAB FOUNDATIO PATIENT 40 MIN OFFICE 45458 MIKE BURGER 8 8 KRISTIAN Love VISIT [facility] 15 MINUTES
--- OUTSIDE RECORDS SUMMARY | 2017-11-21 03:03 | External Medical Summary Rpt | CCD ---
Author Author , LUIS EDUARDO Organization LUIS EDUARDO Address Unknown Phone [email or web address] Care Team Providers Care Rental Coordinator Name Role Phone [facility], [facility] Unavailable Unavailable [...] Unavailable DANIEL, ALEXIS, Unavailable Unavailable DANIEL, ALEXIS [facility] Unavailable Unavailable SERVICE, [facility] Unavailable Unavailable SERVICE, [facility] Unavailable Unavailable SERVICE, [facility] BANDAR TEREZA, BANDAR [...] Unavailable [facility] [place] [place], [facility] [place] [facility] [place] [place] [facility] [...] [facility]available [facility] Unavailable Unavailable INC, [facility] Unavailable Unavailable HOSPITAL P, [facility] P ELIAS, NETTIE, ELIAS, Unavailable Unavailable NETTIE MIDD[facility]TON ALEM, MIDDLETON ALEM Unavailable Unavailable MIDDLETON ALEM, MIDDLETON ALEM Unavailable Unavailable MIDDLETON, MICHAEL A, Unavailable Unavailable MIDDLETON, MICHAEL A [facility], Unavailable Unavailable [facility] WHITESIDE NISREEN, WHITESIDE NISREEN Unavailable Unavailable KATYA MITCHELL, KATYA Unavailable Unavailable MITCHELL JAMA NAN, JAMA Unavailable Unavailable NAN JAMA NAN, JAMA Unavailable Unavailable NAN [facility] Unavailable Unavailable [facility], [facility] Unavailable Unavailable MEDICAL G, [facility] Unavailable Unavailable [facility], [facility], [facility] [place] [facility] [facility] Unavailable Unavailable FRANCOIS, FRANCOIS Unavailable Unavailable FRANCOIS, FRANCOIS Unavailable Unavailable NAN JR, NAN JR Unavailable Unavailable NAN, ALBA E, Unavailable Unavailable NAN, ALBA E [facility] Unavailable Unavailable LABORATORY, [facility] [place] Unavailable Unavailable INTER[facility] MED, [facility] [place] [facility] Unavailable Unavailable [facility], [facility] FREDY NICHOLSON MD Unavailable Unavailable JERMAINE DOSS MAJORS G, MAJORS G Unavailable Unavailable VITA HAM, VITA HAM Unavailable Unavailable VITA HAM, VITA HAM Unavailable Unavailable [facility] Unavailable Unavailable SERVICES, [facility] ROMERO JAM, Unavailable Unavailable ROMERO [...] MOHAMMADZADEH MOHAMMADZADEH HAM, Unavailable Unavailable MOHAMMADZADEH HAM [facility] Unavailable Unavailable [facility], [facility] O'JENNIFER LISA, O'JENNIFER Unavailable Unavailable LISA [...] [facility] Unavailable Unavailable [facility]PIT[facility], [facility], Unavailable Unavailable [facility] MORRISON W, MORRISON W Unavailable Unavailable [...] Diagnosis DOS Provider Status R05 COUGH 10-13-2017 [facility] Z9109 OTH ALLERGY 10-13-2017 [facility] STATUS OT PHYSICIANS THAN GROUP RX&BIOLOGIC L SUBSTNC H903 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-29-2017 [facility] AL HEARING LOSS BILATERAL H90A22 SENSORNURL 09-29-2017 [facility] HEAR LOS PHYSICIANS UNI LT EAR GROUP RSTRC CNTRALATERL M5030 OTH 09-29-2017 [facility] CERVICAL PHYSICIANS DISC GROUP DEGENERATIO N UNS CERV REGION M78491 OTHER 09-29-2017 [facility] SPECIFIED PHYSICIANS POSTPROCEDU GROUP [facility] M542 CERVICALGIA 09-27-2017 [facility] R1310 DYSPHAGIA 09-27-2017 [place] UNSPECIFIED [facility]ICAL IM[facility]ING ASS W30973 SPONDYLOSIS 08-30-2017 [place] Aguilar/Milton [place] MYELSAJI/R ,PSC ADICULOPATH Y CERV RGN G57638 SPONDYLOSIS 08-30-2017 [place] Aguilar/Milton T[place]END MYELOPATH/R ,PSC ADICULOPATH Y LUMB RGN N72380 GROUP HOME 08-30-2017 [place] CURRENT USE WHIT [place] OPIATE ,PSC ANALGESIC Z44769 OTHER LONG 08-29-2017 [facility] CURRENT INC DRUG THERAPY E119 TYPE 2 08-24-2017 [facility] DIABETES PHYSICIANS MELLITUS GROUP WITHOUT COMPLICATIO NS E785 HYPERLIPIDE 08-24-2017 [facility] LESTER PHYSICIANS UNSPECIFIED GROUP I119 HYPERTENSIV 08-24-2017 [facility] E HEART PHYSICIANS DISEASE GROUP WITHOUT HEART FAILURE 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 I712 THORACIC 08-24-2017 [facility] AORTIC PHYSICIANS ANEURYSM GROUP WITHOUT RUPTURE I714 ABDOMINAL 08-24-2017 [facility] AORTIC PHYSICIANS ANEURYSM GROUP WITHOUT RUPTURE Z955 PRESENCE OF 08-24-2017 [facility] CORONARY PHYSICIANS ANGIOPLASTY GROUP IMPLANT & GRAFT D331 BENIGN 08-17-2017 [facility] INFRATENTOR IAL 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-2017 [place] [facility] U[facility]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 H9191 UNSPECIFIED 08-17-2017 [facility] RIGHT [facility]PITALS EAR T02198 FACIAL 08-17-2017 [facility] R51 HEADACHE 08-17-2017 [place] [facility] Z7982 GROUP HOME 08-17-2017 [facility]RENT [facility] S98824 PERSONAL 08-17-2017 [facility] DEPENDENCE I10 ESSENTIAL 08-08-2017 [facility] PRIMARY PHYSICIANS HYPERTENSIO GROUP N I200 UNSTABLE 08-08-2017 [facility] ANGINA PHYSICIANS GROUP B15338 ASHD TANACROSS 08-08-2017 [facility] COR ART PHYSICIANS W/UNSTABLE GROUP ANGINA PECTORIS J342 DEVIATED 08-08-2017 [place] [facility]AL [facility] SEPTUM IM[facility]ING ASS R079 CHEST PAIN 08-08-2017 [place] UNSPECIFIED [facility]ICAL IMAGING ASS M549 DORSALGIA 08-07-2017 [facility] UNSPECIFIED PHYSICIANS GROUP D333 BENIGN 07-26-2017 [facility] OF [facility] CRANIAL INC NERVES H538 OTHER 07-26-2017 [place] VISUAL MEDICAL DISTURBANCE IMAGING ASS S R42 DIZZINESS 07-26-2017 [place] AND MEDICAL GIDDINESS IMAGING ASS R9439 ABNORMAL 05-26-2017 [facility] RESULT OT PHYSICIANS CARDIOVASCU GROUP LR FUNCTION STUDY H39644 ENCOUNTER 05-26-2017 [facility] FOR PHYSICIANS PREPROCEDUR GROUP AL CARIOVASCUL AR EXAM R9431 ABNORMAL 05-13-2017 [facility] ELECTROCARD PHYSICIANS IOGRAM GROUP J07693 ENCOUNTER 05-13-2017 [facility] FOR OTHER [facility] PREPROCEDUR INC AL EXAMINATION R1011 RIGHT UPPER 05-03-2017 [facility] MEDICAL PAIN IMAGING ASS R935 ABN FIND DX 05-03-2017 [facility]TH [facility] ABD REGIONS INC RETROPERITO NEUM D369 BENIGN 04-19-2017 [facility] NEOPLASM PHYSICIANS UNSPECIFIED GROUP SITE U36149 PERSONAL 04-19-2017 [facility] HISTORY OF PHYSICIANS COLONIC GROUP POLYPS K210 GASTRO-ESOP 04-09-2017 [facility] JENSEN PHYSICIANS, REFLUX PLLC DISEASE W/ ESOPHAGITIS K828 OTHER 04-09-2017 [facility] ORNELAS PHYSICIANS, DISEASES OF PLLC GALLBLADDER K829 DISEASE OF 04-09-2017 [place] GALLBLADDER MEDICAL IMAGING ASS UNSPECIFIED R109 UNSPECIFIED 04-09-2017 [place] ABDOMINAL MEDICAL PAIN IMAGING ASS N411 CHRONIC 04-05-2017 [facility] N529 MALE 04-05-2017 [facility] P UNSPECIFIED K219 GASTRO-ESOP 04-02-2017 [facility]OS[facility] DISEASE INC WITHOUT ESOPHAGITIS M5116 INTERVERTEB 04-02-2017 [facility] GLORIA PHYSICIANS, D/O PLLC W/RADICULOP ATHY LUMB RGN R1031 RIGHT LOWER 04-02-2017 [place] [facility] PAIN IMAGING ASS M5382 OTHER 03-23-2017 [place] SPECIFIED CHIROPRACTI DORSOPATHIE C CENTE S CERVICAL REGION M5386 OTHER 03-23-2017 [place] SPECIFIED CHIROPRACTI DORSOPATHIE C CENTE S LUMBAR REGION R05972 OTHER 03-04-2017 JUANI LU MD,PSC MID-CERV REG UNS LEVEL K5900 CONSTIPATIO 02-13-2017 [place] N MEDICAL UNSPECIFIED IMAGING ASS R112 NAUSEA WITH 02-13-2017 [place] VOMITING MEDICAL UNSPECIFIED IMAGING ASS J449 CHRONIC 01-13-2017 [facility] PULMONARY [facility] P DISEASE UNS R0600 DYSPNEA 01-13-2017 [place] UNSPECIFIED MEDICAL IMAGING ASS E039 HYPOTHYROID 11-11-2016 [facility] UNSPECIFIED INC N401 BENIGN 10-26-2016 [facility] PROSTATIC [facility] HYPERPLASIA [facility] P LW URINARY TRACT SX R350 FREQUENCY 10-26-2016 [facility] MICTURITION [facility] P P82415 UNSPECIFIED 10-11-2016 [facility] [facility] BLEPHARITIS LEFT LOWER EYELID J9811 ATELECTASIS 09-01-2016 [place] [facility] R1013 EPIGASTRIC 09-01-2016 [facility] P R7989 OTHER SPEC 09-01-2016 [place] ABNORMAL MEDICAL FINDINGS IMAGING ASS BLOOD CHEMISTRY M791 MYALGIA 08-25-2016 [place] TOWNSEND MD,PSC M5090 CERVICAL 08-16-2016 [facility] DISORDER INC UNS UNS CERVICAL REGION E36942 PAIN IN 08-10-2016 [place] RIGHT MEDICAL SHOULDER IMAGING ASS M5032 OTH CERV 08-10-2016 [place] DISC MEDICAL DEGENERATIO IMAGING ASS N MID-CERVICA L REGION Z6598QX CONTUSION 08-10-2016 [facility] UNS PART PHYSICIANS, HEAD PLLC INITIAL ENCOUNTER Z8350HQ UNSPECIFIED 08-10-2016 [place] INJURY OF MEDICAL HEAD IMAGING ASS INITIAL ENCOUNTER B000SXB STRAIN 08-10-2016 [facility] MUSCLE FASC PHYSICIANS, & TENDON PLLC NECK LEVL INIT ENC O822DZK UNSPECIFIED 08-10-2016 [place] INJURY OF MEDICAL NECK IMAGING ASS INITIAL ENCOUNTER O99063G UNSPECIFIED 08-10-2016 [facility] SPRAIN RT PHYSICIANS, SHOULDER PLLC JOINT INITIAL ENC B8513IJ UNS INJURY 08-10-2016 [place] RT SHOULDER MEDICAL UPPER ARM IMAGING ASS INITIAL ENCNTR D126 BENIGN 07-29-2016 [facility] NEOPLASM OF [facility] COLON UNSPECIFIED K635 POLYP OF 07-29-2016 [facility] COLON PHYSICIANS GROUP Z09 ENC F/U 07-29-2016 [facility]UN[facility] EXAM AFTR ANESTH OF CMPL TX OTH THE BLUE THAN MALIG NEOPLSM Z1211 ENCOUNTER 07-29-2016 [facility] SCREENING PHYSICIANS MALIGNANT GROUP NEOPLASM OF COLON M4642 DISCITIS 05-14-2016 [facility] UNSPECIFIED PHYSICIANS CERVICAL GROUP REGION G8929 OTHER 04-23-2016 [facility] CHRONIC PHYSICIANS PAIN GROUP J40 BRONCHITIS 04-07-2016 [facility] NOT PHYSICIANS SPECIFIED GROUP ACUTE OR CHRONIC M5010 CERVICAL 03-29-2016 BOYD BUX, DISC D/O MD, PSC W/RADICULOP ATHY UNS CERV RGN B351 TINEA 03-25-2016 PRO[facility] UNGUIUM PODIATRY E1151 TYPE 2 DM 03-25-2016 [facility] W/DIAB PODIATRY PERIPH ANGIOPATHY W/O GANGRENE M2570 OSTEOPHYTE 03-25-2016 [facility] UNSPECIFIED PODIATRY JOINT O96103 PAIN IN 03-25-2016 [facility] LEFT TOES PODIATRY J0110 ACUTE 03-24-2016 [facility] FRONTAL PHYSICIANS SINUSITIS GROUP UNSPECIFIED C67351C UNS OPEN 03-24-2016 [facility] WOUND UNS PHYSICIANS TOES GROUP W/DAMAGE NAIL INITIAL M5412 RADICULOPAT 02-23-2016 BOYD BUX, HY CERVICAL , PSC REGION R200 ANESTHESIA 01-23-2016 [place] OF SKIN MEDICAL IMAGING ASS Z8603 PERSONAL 01-23-2016 [place] HISTORY MEDICAL NEOPLASM OF IMAGING ASS UNCERTAIN BEHAVIOR O03923 UNSPECIFIED 01-14-2016 [place] [facility] PTOSIS OF SERV RIGHT FOUNDATION EYELID R9089 OTH 01-14-2016 [place] [facility] ABNORMAL SERV FIND ON DX FOUNDATION IMAGING CNTRL NERV SYS Z66722 PERSONAL 01-14-2016 [place] [facility] [place] 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 UNSPECIFIED C97760 CONTACT 12-26-2015 [facility] ANG BLEPHAROCON JUNCTIVITIS RIGHT EYE M5136 OTH 12-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 BURT MD, PSC RAL DISC DEGEN LUMBAR REGION R110 NAUSEA 12-03-2015 [place] [facility] R140 ABDOMINAL 11-26-2015 [place] DISTENSION MEDICAL GASEOUS IMAGING ASS B370 CANDIDAL 11-20-2015 [facility] STOMATITIS PHYSICIANS, [facility] E1121 TYPE 2 11-20-2015 [facility] DIABETES [facility] MELLITUS INC W/DIABETIC NEPHROPATHY J329 CHRONIC 11-13-2015 [facility] SINUSITIS PHYSICIANS UNSPECIFIED GROUP H5203 HYPERMETROP 09-08-2015 [place] [facility] IA BILATERAL M797 FIBROMYALGI 08-29-2015 [facility] A [facility] INC 41047 DEGEN 07-28-2015 BOYD DEAN, LUMBAR/LUMB , PSC OSACRAL INTERVERTEB RAL DISC 7244 THORACIC/GINO 07-28-2015 GABBY BURT MD, PSC NEURITIS/RA DICULITIS UNSPEC 7291 UNSPECIFIED 07-28-2015 BOYD DEAN MYALGIA , PSC AND MYOSITIS V7109 OBSERVATION 07-23-2015 COMPREHEND OF OTHER INC SUSPECTED MENTAL CONDITION 56539 UNSPECIFIED 06-20-2015 [facility] ARTHROPATHY INC OTHER SPECIFIED SITES 6011 CHRONIC 06-03-2015 [facility] 95662 DEGEN 05-06-2015 [place] THORACIC/TH MEDICAL ORACOLUMBAR IMAGING ASS INTERVERTEB RAL DISC 7231 CERVICALGIA 05-06-2015 [place] [facility] 7245 UNSPECIFIED 05-06-2015 [place] BACKACHE MEDICAL IMAGING ASS 7840 HEADACHE 05-06-2015 [facility] 8470 NECK SPRAIN 05-06-2015 [facility] AND STRAIN PHYSICIANS, [facility] 30892 HEAD 05-06-2015 [facility] INJURY, PHYSICIANS, UNSPECIFIED PLLC 74303 HYPERTROPHY 04-29-2015 [facility] W/UR OBST & HOSPITAL P OTH LUTS 48577 URINARY 04-29-2015 [facility] P 7224 DEGENERATIO 04-28-2015 FREDY DEAN N OF CERVICAL INTERVERTEB RAL DISC 7234 BRACHIAL 04-28-2015 FREDY DEAN NEURITIS [place] RADICULITIS N[place] 58788 DIAB W/O 03-04-2015 [facility] COMP TYPE LAR II/UNS NOT CONSULTANTS STATED O UNCNTRL 2724 OTHER AND 03-04-2015 [facility]NSPECIFIED [facility] INC HYPERLIPIDE LESTER 4019 UNSPECIFIED 03-04-2015 [facility] ESSENTIAL [facility]OS[facility] HYPERTENSIO INC N 25048 UNSPEC HTN 03-04-2015 [facility] HEART LAR DISEASE CONSULTANTS WITHOUT O HEART FAIL 72322 COR 03-04-2015 [facility] ATHEROSLERO [facility] UNSPEC INC TYPE VESSEL TANACROSS/XAVEIR T 97320 OTHER 02-26-2015 [place] DYSPNEA AND MEDICAL [place] [address] CHEST PAIN 02-26-2015 [place] [facility] U[place]PECIFIED SERV FOUNDATION 62939 OTHER CHEST 02-26-2015 [facility] PAIN PHYSICIANS GROUP 2449 UNSPECIFIED 01-09-2015 [facility] PHYSICIANS HYPOTHYROID GROUP ISM 92413 DISPLCMT 01-09-2015 [facility] LUMBAR PHYSICIANS INTERVERT GROUP DISC W/O MYELOPATHY 18153 OTHER 01-09-2015 [facility] MALAISE AND PHYSICIANS FATIGUE GROUP 10301 DIAB W/O 12-28-2014 [facility] MENTION [facility] COMP TYPE INC II/UNS TYPE UNCNTRL 2768 HYPOPOTASSE 12-28-2014 [facility] P 3319 UNSPECIFIED 12-28-2014 [place] CEREBRAL MEDICAL DEGENERATIO IMAGING ASS N 7820 DISTURBANCE 12-28-2014 [facility] P 59748 PRECORDIAL 12-28-2014 [facility] 94395 VOMITING 12-28-2014 [facility] ALONE [facility] SERVICE V140 PERSONAL 12-28-2014 [facility] HISTORY OF [facility] ALLERGY TO [facility] P PEN[place] 4414 ABDOMINAL 11-14-2014 [facility] ANEURYSM HEALTH WITHOUT MEDICAL G MENTION OF RUPTURE 490 BRONCHITIS 10-30-2014 [facility] NOT PHYSICIANS SPECIFIED GROUP ACUTE OR CHRONIC 08700 UNSPECIFIED 05-07-2014 [facility] ART ORCHITIS AND EPIDIDYMITI S 73922 OTHER 04-16-2014 [facility] CHRONIC [facility] PAIN INC 496 CHRONIC 04-16-2014 [facility] AIRWAY [facility] OBSTRUCTION INC NEC 7242 LUMBAGO 04-16-2014 JAIDEN CAMILLA V1582 PERS HX 04-16-2014 [facility] TOBACCO USE [facility] PRESENTING INC [facility] V5869 LONG-TERM 04-16-2014 [facility] (CURRENT) [facility] USE OF INC OTHER MEDICATIONS 92645 OTHER 04-02-2014 [facility] CONVULSIONS [facility] INC 8472 LUMBAR 04-02-2014 [facility] III SPRAIN AND AREN STRAIN E9179 OTHER 04-02-2014 [facility] III STRIKING AREN AGAINST W/WO SUBSEQUENT FALL 4139 OTHER AND 03-29-2014 [facility] UNSPECIFIED [facility] ANGINA INC PECTORIS 71038 ING ANDREW 03-29-2014 [facility] W/O MENTION BUBBA OBST/GANGRE N UNILAT/UNSP EC 5738 OTHER 03-29-2014 [facility] SPECIFIED BUBBA DISORDERS OF LIVER 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 14807 ABDOMINAL 03-29-2014 [facility] III PAIN OTHER AREN SPECIFIED SITE 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 69387 ACUTE 03-03-2014 [facility] GASTRITIS [facility] WITHOUT INC MENTION OF HEMORRHAGE 40219 UNS 03-03-2014 CHAZ BRO GASTRITIS&G ASTRODUODIT IS W/O MENTION HEMORR 7213 LUMBOSACRAL 01-17-2014 VITA HAM SPONDYLOSIS WITHOUT MYELOPATHY 7831 ABNORMAL 10-13-2013 [facility] WEIGHT GAIN [facility] INC 93721 DIARRHEA 10-13-2013 [facility] INC V0481 NEED 08-23-2013 NATHALY RAI PROPHYLACTI AREN C VACCINATION &INOCULATIO N FLU 3510 BELLS PALSY 07-24-2013 [facility] 7218 OTHER 07-24-2013 [facility] DISORDERS OF SPINE 99135 OTH 07-18-2013 [facility] MIGRAINE [facility] W/O INTRACT INC W/O STATUS MIGRAINOSUS 20161 OTHER 06-18-2013 [facility] CONDITIONS BUBBA OF BRAIN 7220 DISPLCMT 06-18-2013 [facility] CERV BUBBA INTERVERT DISC WITHOUT MYELOPATHY 7249 OTHER 06-18-2013 [facility] UNSPECIFIED BUBBA BACK DISORDER V571 OTHER 05-28-2013 [facility] PHYSICAL [facility] THERAPY INC 52663 UNSPECIFIED 03-06-2013 [facility] SHOULDER REGION 35594 PAIN IN 03-06-2013 [facility], EMERGENCY SHOULDER SERVICES REGION 7295 PAIN IN 03-06-2013 [facility] SOFT BUBBA TISSUES OF LIMB 45623 OTHER 03-06-2013 [facility] NONSPECIFIC BUBBA ABNORMAL FINDING OF LUNG FIELD 26346 MICROSCOPIC 01-26-2013 NATHALY RAI HEMATURIA AREN 8460 SPRAIN AND 01-26-2013 NATHALY RAI STRAIN OF AREN LUMBOSACRAL 72871 OTHER 01-25-2013 [facility] DISEASES OF BUBBA SPLEEN 4411 THORACIC 01-25-2013 [facility] ANEURYSM, BUBBA RUPTURED 5589 OTH&UNSPEC 01-25-2013 [facility] NONINFECTIO [facility] P GASTROENTER ITIS&COLITI S 86025 HYPERTROPHY 01-25-2013 [facility] PROSTATE BUBBA W/O UR OBST & OTH LUTS 6019 UNSPECIFIED 12-30-2012 [facility] HOSP PROSTATITIS INC 7823 EDEMA 12-30-2012 [facility] HOSP INC 71686 UNSPECIFIED 12-29-2012 NATHALY RAI AREN CONSTIPATIO N 39213 ABDOMINAL 12-15-2012 [facility] P 4400 ATHEROSCLER 12-14-2012 [facility] OSIS OF BUBBA AORTA 97057 ABDOMINAL 12-14-2012 [facility] CHARLEY PAIN, UNSPECIFIED SITE 37507 HEMATURIA 08-29-2012 [place] UNSPECIFIED MEDICAL IMAGING ASS 02305 OTHER 08-21-2012 [place] SPECIFIED MEDICAL DISORDERS IMAGING ASS OF BLADDER 01242 ABDOMINAL 08-08-2012 [facility] PAIN RIGHT BUBBA LOWER QUADRANT 4419 AORTIC 08-01-2012 JAMA ARPAN ANEUR UNSPEC SITE WITHOUT MENTION RUPTURE 7881 DYSURIA 07-24-2012 JAMA ARPAN 13837 PRIMARY 06-14-2012 NICK LACRIMAL JAM ATROPHY 90563 VITREOUS 06-14-2012 NICK DEGENERATIO JAM N 30089 UNSPECIFIED 04-04-2012 KANE FERRARA BLEPHAROCON JUNCTIVITIS 22412 ESOPHAGEAL 04-04-2012 JOHNY CAMILLA REFLUX 5533 DIAPHRAGMAT 04-04-2012 JOHNY SAMPSON ANDREW W/O MENTION OBSTRUCTION /GANGREN 18892 OTHER LATE 03-25-2012 BESSON CAMILLA EFFECTS OF CEREBROVASC ULAR DISEASE V711 OBSERVATION 03-24-2012 [place] FOR MEDICAL SUSPECTED IMAGING ASS MALIGNANT NEOPLASM 436 ACUTE BUT 02-28-2012 NATHALY RAI ILL-DEFINED AREN CEREBROVASC ULAR DISEASE 12881 UNS 12-22-2011 [facility] DON[facility] MALIGNANT NEOPLASM EYELID INCLUDING CANTHUS 99430 BASAL CELL 12-22-2011 [place] CARCINOMA ANESTHESIA OF EYELID ASSOC L INCLUDING CANTHUS 10048 OTHER 12-22-2011 EDGE DONNIE CHRONIC DERMATITIS DUE TO SOLAR RADIATION 50523 OTHER 11-28-2011 [facility] SPECIFIED BUBBA ACQUIRED DEFORMITY OF HEAD 4660 ACUTE 10-11-2011 NATHALY RAI BRONCHITIS AREN 7862 COUGH 10-11-2011 [place] [facility] 2392 NEOPLASMS 10-01-2011 [facility] UNSPEC NATURE BONE SOFT TISSUE&SKIN 7226 DEGENERATIO 09-21-2011 [place] N POMEROY INTERVERTEB INTERNAL RAL DISC MED SITE UNSPEC 29462 BLEPHARITIS 09-07-2011 [facility] LB , UNSPECIFIED 3670 HYPERMETROP 08-20-2011 ISHA IA VISION 87059 ABDOMINAL 07-27-2011 NEW PAIN RIGHT [facility] PSC QUADRANT 7210 CERVICAL 07-22-2011 NEW SPONDYLOSIS [facility] WITHOUT [facility] PSC MYELOPATHY 2250 BENIGN 06-15-2011 NEW NEOPLASM OF [facility] PSC 48086 SHORTNESS 06-03-2011 [facility] MEDICAL IMAGING ASS 1101 DERMATOPHYT 05-18-2011 [place] OSIS OF POMEROY NAIL INTERNAL MED 7822 LOCALIZED 05-18-2011 [place] SUPERFICIAL POMEROY SWELLING INTERNAL MASS OR MED LUMP 7906 OTHER 04-13-2011 [place] ABNORMAL POMEROY BLOOD INTERNAL CHEMISTRY MED 97906 DYSPHAGIA 02-25-2011 [facility] UNSPECIFIED [facility] INC 7871 HEARTBURN 02-16-2011 C CELESTINO ADAME MD PSC 41926 ABDOMINAL 02-16-2011 C DEEP YOUNGER EPIGASTRIC PSC 1919 MALIGNANT 02-03-2011 [place] NEOPLASM OF VAL[place] BRAIN INTERNAL UNSPECIFIED MED SITE 57733 DYSPHAGIA 02-03-2011 [place] DUE TO [place] CEREBROVASC INTERNAL ULAR MED DISEASE 1104 DERMATOPHYT 12-14-2010 [place] OSIS OF POMEROY FOOT INTERNAL MED 9953 ALLERGY 12-12-2010 [place] UNSPECIFIED [place] NOT INTERNAL ELSEWHERE MED CLASSIFIED 7821 RASH AND 12-09-2010 [place] OTHER [place] NONSPECIFIC INTERNAL SKIN MED ERUPTION 7079 CHRONIC 12-07-2010 [place] ULCER OF [place] UNSPECIFIED INTERNAL SITE MEDI 3688 OTHER 09-21-2010 [place] SPECIFIED MEDICAL VISUAL IMAGING ASS DISTURBANCE S 49425 MUSCLE 09-21-2010 [facility]NESS [facility] (GENERALIZE INC D) 94542 FACIAL 09-21-2010 [facility] INC 67370 NAUSEA WITH 07-27-2010 [facility] VOMITING [facility]BULANCE SERVICE 43161 OTHER AND 07-25-2010 [place] UNSPECIFIED [place] INTERNAL CONJUNCTIVI MED TIS 5409 ACUTE 05-05-2010 [facility] PROF SERV PERITONITIS 541 APPENDICITI 05-05-2010 [place] [facility] 7804 DIZZINESS 05-05-2010 [place] [facility] V4589 OTHER 05-05-2010 [facility] OTHER PROF SERV 11898 PAINFUL 11-05-2009 [facility] INTERNAL MED 16367 OTHER SPEC 09-03-2009 [place] [facility] WITHOUT [facility] MENTION HEMORRHAGE 38703 DUODENITIS 09-03-2009 [facility] MENTION OF INC HEMORRHAGE 22779 NAUSEA 09-03-2009 [facility] & [facility]ONE CYTOLOGY LAB 17215 UNSPECIFIED 05-07-2009 [facility] TIS PROF SERV 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 UNSPECIFIED MED 11523 OTHER 01-13-2009 [facility] ANXIETY VALLEY STATES INTERNAL MED 4439 UNSPECIFIED 12-20-2008 [facility] V[facility] DISEASE 42388 ONYCHIA AND 12-16-2008 [facility] PARONYCHIA VALLEY OF TOE INTERNAL MED 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 CHRONIC 11-13-2008 [facility] PAIN VALLEY SYNDROME INTERNAL MED 4659 ACUTE URIS 10-30-2008 [facility] OF VALLEY UNSPECIFIED INTERNAL SITE MED 31972 ABDOMINAL 07-17-2008 [place] PAIN, LEFT CLINIC UPPER LABORATORY QUADRANT 59489 DISORDER OF 06-25-2008 [facility] UNSPECIFIED 3674 PRESBYOPIA 04-11-2008 [facility] 7802 SYNCOPE AND 03-29-2008 [facility] 65768 TRANSIENT 03-28-2008 [facility] OF SERVICE AWARENESS 4011 ESSENTIAL 03-14-2008 [facility] [place] N, BENIGN CLINIC PSC 04581 ANNIE HTN 02-27-2008 [facility] [place] DISEASE [...] ia de te s n re d LA 00 11 12 20 10 00 EA [...] 17 17 94 E 6 49 PH LA AR OP MA CY 50 OF MC [...] 5 31 PH CE AR TA MA FL CY NO PH OF N CY 10 [...] 80 2- 8- 00 00 SI ve FL 21 20 20 50 DE DE 61 17 17 76 0 35 PH 40 AR MA MG CY TA OF BL CY ET NT HI AN A IN C ME 23 10 12 30 30 00 EA Ac TF 15 -2 -[address] ti OR 50 9- 1- 00 00 SI ve FL 10 20 20 50 DE N 21 [...] 5 60 PH CE AR TA MA FL CY NO PH OF N CY 10 [...] 80 6- 7- 00 00 SI ve FL 21 20 20 50 DE DE 61 17 17 30 0 17 PH 40 AR MA MG CY TA OF BL CY ET NT HI AN A IN C ME 23 09 10 30 30 00 EA Ac TF 15 -2 -[address] ti OR 50 6- 7- 00 00 SI ve FL 10 20 20 50 DE N 21 [...] 5 20 PH CE AR TA MA FL CY NO PH OF N CY 10 [...] 80 4- 9- 00 00 SI ve FL 21 20 20 49 DE DE 61 17 17 91 0 24 PH 40 AR MA MG CY TA OF BL CY ET NT HI AN A IN C ME 23 08 30 30 00 EA Ac TF 15 -2 -[address] ti OR 50 4- 9- 00 00 SI ve FL 10 20 20 49 DE N 21 [...] 5 49 PH CE AR TA MA FL CY NO PH OF N CY 10 [...] 50 4- 5- 00 00 SI ve FL 10 20 20 49 DE N 21 17 17 54 HC 0 03 PH L AR 50 MA 0 CY MG OF TA CY BL NT ET HI AN A IN C FU 08 30 30 00 EA Ac RO 37 -2 -[address] ti SE 80 4- 5- 00 00 SI ve FL 21 20 20 49 DE DE 61 [...] 5 66 PH CE AR TA MA FL CY NO PH OF N CY 10 [...] 50 2- 8- 00 00 SI ve FL 10 20 20 49 DE N 21 [...] 80 6- 1- 00 00 SI ve FL 21 20 20 49 DE DE 61 [...] 5 80 PH CE AR TA MA FL CY NO PH OF N CY 10 [...] 50 2- 3- 00 00 SI ve FL 10 20 20 48 DE N 21 [...] 5 38 PH CE AR TA MA FL CY NO PH OF N CY 10 [...] SE 80 9- 9- 00 SI ve FL 21 20 20 48 DE DE 61 [...] ti OR 31 6 00 SI ve FL 04 20 20 48 DE N 80 [...] 40 0- 2- 00 00 SI ve FL 62 20 20 48 DE DE 51 [...] 5 38 PH CE AR TA MA FL CY NO PH OF N CY 10 [...] 31 0- 1- 00 00 SI ve FL 04 20 20 48 DE N 80 [...] ve LO 37 20 20 48 DE LA 40 17 17 05 AM 1 71 PH AR 10 MA CY MG OF TA CY BL NT ET HI AN A IN C FU 63 03 04 30 30 00 EA Ac RO 30 -0 -[address] ti SE 40 9- 4- 00 00 SI ve FL 62 20 20 47 DE DE 51 [...] 5 33 PH CE AR TA MA FL CY NO PH OF N CY 10 [...] ve LO 37 20 20 47 DE LA 40 17 17 66 AM 1 03 [...] 50 7- 4- 00 00 SI ve FL 10 20 20 47 DE N 21 [...] 5 63 PH CE AR TA MA FL CY NO PH OF N CY 10 [...] 40 0- 3- 00 00 SI ve FL 62 20 20 47 DE DE 51 [...] 50 6- 7- 00 00 SI ve FL 10 20 20 47 DE N 21 [...] 5 53 PH CE AR TA MA FL CY NO PH OF N CY 10 [...] 40 6- 7- 00 00 SI ve FL 62 20 20 47 DE DE 51 [...] 50 5- 0- 00 00 SI ve FL 10 20 20 46 DE N 21 [...] 5 68 PH CE AR TA MA FL CY NO PH OF N CY 10 [...] RT 40 9- 9- 00 SI 16 FL ve AN 22 20 20 0 DE [...] PE 40 4- 4- 00 SI 87 FL ve NT 66 20 20 0 DE E IN 20 13 13 JR 1 PH 30 AR WI 0 MA LL MG CY IA M CA OF F PS UL CY E NT HI AN A SI 16 11 11 0 30 30 EA 33 MC Ac MV 71 -1 -[address] 61 KE ti 40 2- 2- 00 SI 39 FL ve TA 68 20 20 0 DE E TI 40 13 13 JR N 3 PH 40 AR WI MA LL MG CY IA M TA OF F BL ET CY NT HI AN A LO 16 06 11 4 15 15 EA 31 MC Ac SA 71 -1 -[address] 99 KE ti RT 40 0- 2- 00 SI 99 FL ve AN 22 20 20 0 DE [...] RA 50 4- 1- 00 SI 09 FL ve ZO 13 20 20 0 DE E LE 63 13 [address] AR WI MA LL 40 CY IA M MG OF F CA CY PS NT UL HI E AN A ME 00 08 11 3 30 30 EA 32 MC Ac TF 09 -0 -[address] 52 KE ti OR 31 2- 9- 00 SI 59 FL ve FL 04 20 20 0 DE E N 81 13 13 JR HC 0 PH L AR WI 50 MA LL 0 CY IA MG M OF F TA BL CY ET NT HI AN A FU 63 08 11 2 30 30 EA 32 MC Ac RO 30 -2 -[address] 80 KE ti SE 40 9- 5- 00 SI 32 FL ve FL 62 20 20 0 DE E DE 51 13 13 JR 0 PH 40 AR WI MA LL MG CY IA M TA OF F BL ET CY NT HI AN A CL 00 10 11 0 45 15 EA 33 MC Ac ON 22 -1 -[address] 31 KE ti AZ 83 4- 2- 00 SI 89 FL ve EP 00 20 20 0 DE E AM 45 13 13 JR 1 0 PH AR WI MG MA LL CY IA TA M BL OF F ET CY NT HI AN A LE 00 07 11 3 30 30 EA 32 MC Ac VO 37 -2 -[address] 46 KE ti TH 81 6- 2- 00 SI 48 FL ve YR 80 20 20 0 DE [...] RT 40 0- 5- 00 SI 99 FL ve AN 22 20 20 0 DE [...] AZ 83 4- 4- 00 SI 89 FL ve EP 00 20 20 0 DE E AM 45 13 13 JR 1 0 PH AR WI MG MA LL CY IA TA M BL OF F ET CY NT HI AN A SI 16 08 10 2 30 30 EA 32 MC Ac MV 71 -0 -[address] 57 KE ti 40 7- 2- 00 SI 30 FL ve TA 68 20 20 0 DE E TI 40 13 13 JR N 3 PH 40 AR [place] MA LL MG CY IA M TA OF F BL ET CY NT HI AN A OM 62 09 10 2 30 30 EA 32 MC Ac EP 17 -0 -[address] 86 KE ti RA 50 4- 9- 00 SI 09 FL ve ZO 13 20 20 0 DE E LE 63 13 [address] AR [place] MA LL 40 CY IA M MG OF F CA CY PS NT UL HI E AN A ME 00 08 10 3 30 30 EA 32 MC Ac TF 09 -0 -[address] 52 KE ti OR 31 2- 7- 00 SI 59 FL ve FL 04 20 20 0 DE E N 81 13 13 JR HC 0 PH L AR WI 50 MA LL 0 CY IA MG M OF F TA BL CY ET NT HI AN A FU 63 08 10 2 30 30 EA 32 MC Ac RO 30 -2 -[address] 80 KE ti SE 40 9- 3- 00 SI 32 FL ve FL 62 20 20 0 DE E DE 51 13 13 JR 0 PH 40 AR [place] MA LL MG CY IA M TA OF F BL ET CY NT HI AN A EX 00 08 10 2 30 30 EA 23 MC Ac FO 07 -1 -[address] 73 KE ti RG 80 9- 9- 00 SI 45 FL ve E 48 20 20 DE E 10 91 11 11 JR -1 5 PH 60 AR [place] MA LL MG CY IA M TA OF F BL ET CY NT HI AN A ME 00 08 10 1 30 30 EA 23 BE Ac TF 09 -2 -[address] 77 SS ti OR 31 3- 8- 00 SI 83 ON ve FL 04 20 20 DE N 81 11 [...] AC 40 4- 4- 00 SI 01 FL ve ET 70 20 20 DE E [...] UM 65 6- 0- 00 SI 46 FL ve 04 [address] 03 11 11 JR 1 PH 40 AR [place] MA LL MG CY IA M CA OF F PS UL CY E NT HI AN A FU 63 09 10 3 30 30 EA 24 MC Ac RO 30 -1 -[address] 04 KE ti SE 40 2- 0- 00 SI 35 FL ve FL 62 20 20 DE E DE 51 [...] ti 10 7- 7- 00 SI 81 FL ve 54 20 20 0 DE E [...] RG 80 9- 4- 00 SI 45 FL ve E 48 20 20 DE E 10 91 11 11 JR -1 5 PH 60 AR WI MA LL MG CY IA M TA OF F BL ET CY NT HI AN A SI 16 05 09 3 30 30 EA 22 MC Ac MV 71 -3 -[address] 74 KE ti 40 1- 4- 00 SI 35 FL ve TA 68 20 20 DE E [...] 2- 2- 00 SI 16 ON ve FL 62 20 20 DE DE 51 11 [...] ti 10 7- 7- 00 SI 45 FL ve 54 20 20 0 DE E 00 11 11 JR 1 PH AR WI MA LL CY IA M OF F CY NT HI AN A CL 00 09 09 0 90 30 EA 23 MC Ac ON 09 -0 -[address] 98 KE ti AZ 30 6- 6- 00 SI 47 FL ve EP 83 20 20 DE E AM 20 11 11 JR 1 PH 0. [place] 5 MA LL MG CY IA M TA OF F BL ET CY NT HI AN A NE 00 08 08 2 30 30 EA 23 MC Ac XI 18 -3 -[address] 89 KE ti UM 65 1- 1- 00 SI 75 FL ve 04 [address] [...] 3- 3- 00 SI 83 ON ve FL 04 20 20 DE N 81 11 [...] RG 80 9- 9- 00 SI 45 FL ve E 48 20 20 DE E [...] 6- 6- 00 SI 13 ON ve FL 62 20 20 DE DE [address] 0 PH EP 40 AR HE MA N MG CY A TA OF BL ET CY NT HI AN A SI 16 05 08 3 30 30 EA 22 MC Ac MV 71 -3 -[address] 74 KE ti 40 1- 6- 00 SI 35 FL ve TA 68 20 20 DE E TI 40 11 11 JR N 3 PH 40 AR [place] MA LL MG CY IA M TA OF F BL ET CY NT HI AN A CL 00 08 08 0 90 30 EA 23 MC Ac ON 09 -0 -[address] 54 KE ti AZ 30 5- 5- 00 SI 97 FL ve EP 83 20 20 DE E AM 20 11 11 JR 1 PH 0. AR [place] 5 MA LL MG CY IA M TA OF F BL ET CY NT HI AN A NE 00 05 08 2 30 30 EA 22 MC Ac XI 18 -2 -[address] 69 KE ti UM 65 5- 2- 00 SI 36 FL ve 04 [address] 03 11 11 JR 1 PH 40 AR [place] MA LL MG CY IA M CA OF F PS UL CY E NT HI AN A ZE 66 06 08 3 30 30 EA 23 MC Ac TI 58 -2 -[address] 05 KE ti A 20 3- 2- 00 SI 21 FL ve 10 41 20 20 DE E [...] RG 80 1- 6- 00 SI 11 FL ve E 48 20 20 DE E 10 91 11 11 JR -1 5 PH 60 AR [place] MA LL MG CY IA M TA OF F BL ET CY NT HI AN A ME 00 05 07 1 60 30 EA 22 BE Ac TF 09 -1 -[address] 56 SS ti OR 31 7- - 00 SI 55 ON ve FL 04 20 20 DE N 81 11 [...] AZ 30 5- 5- 00 SI 75 FL ve EP 83 20 20 DE E AM 20 11 11 JR 1 PH 0. AR [place] 5 MA LL MG CY IA M TA OF F BL ET CY NT HI AN A FU 63 05 07 2 30 30 EA 22 BE Ac RO 30 -0 -[address] 36 SS ti SE 40 3- 4- 00 SI 75 ON ve FL 62 20 20 DE DE [address] 0 PH EP 40 AR HE MA N MG CY A TA OF BL ET CY NT HI AN A SI 16 05 07 3 30 30 EA 22 MC Ac MV 71 -3 -[address] 74 KE ti 40 1 2- 00 SI 35 FL ve TA 68 20 20 DE E TI 40 11 11 JR N 3 PH 40 AR [place] MA LL MG CY IA M TA OF F BL ET CY NT HI AN A NE 00 05 06 2 30 30 EA 22 MC Ac XI 18 -2 -[address] 69 KE ti UM 65 5- 5- 00 SI 36 FL ve 04 [address] 03 11 11 JR 1 PH 40 AR [place] MA LL MG CY IA M CA OF F PS UL CY E NT HI AN A ZE 66 06 06 3 30 30 EA 23 MC Ac TI 58 -2 -[address] 05 KE ti A 20 3- 3- 00 SI 21 FL ve 10 41 20 20 DE E [...] RG 80 1- 5- 00 SI 11 FL ve E 48 20 20 DE E [...] AZ 30 7- 7- 00 SI 61 FL ve EP 83 20 20 DE E AM 20 11 11 JR 1 PH 0. [place] 5 MA LL MG CY IA M TA OF F BL ET CY NT HI AN A FU 63 05 06 2 30 30 EA 22 BE Ac RO 30 -0 -[address] 36 SS ti SE 40 3- 2- 00 SI 75 ON ve FL 62 20 20 DE DE [address] 0 PH EP 40 AR HE MA N MG CY A TA OF BL ET CY NT HI AN A SI 16 05 05 3 30 30 EA 22 MC Ac MV 71 -3 -[address] 74 KE ti 40 1- 1- 00 SI 35 FL ve TA 68 20 20 DE E TI 40 11 11 JR N 3 PH 40 AR [place] MA LL MG CY IA M TA OF F BL ET CY NT HI AN A NE 00 05 05 2 30 30 EA 22 MC Ac XI 18 -2 -[address] 69 KE ti UM 65 5- 6- 00 SI 36 FL ve 04 [address] [...] 7- 7- 00 SI 55 ON ve FL 04 20 20 DE N [address] HC 0 PH EP L AR HE 50 MA N 0 CY A MG OF TA BL CY ET NT HI AN A EX 00 04 05 3 30 30 EA 22 MC Ac FO 07 -1 -[address] 06 KE ti RG 80 1- 6- 00 SI 11 FL ve E 48 20 20 DE E [...] 3- 3- 00 SI 75 ON ve FL 62 20 20 DE DE 51 11 [...] UM 65 1- 5- 00 SI 04 FL ve 04 [address] 03 11 11 JR 1 PH 40 AR [place] MA LL MG CY IA M CA OF F PS UL CY E NT HI AN A SI 16 02 04 2 30 30 EA 21 MC Ac MV 71 -1 -[address] 26 KE ti 40 6- 5- 00 SI 51 FL ve TA 68 20 20 DE E TI 40 11 11 JR N 3 PH 40 AR [place] MA LL MG CY IA M TA OF F BL ET CY NT HI AN A EX 00 04 04 3 30 30 EA 22 MC Ac FO 07 -1 -[address] 06 KE ti RG 80 1- 1- SI 11 FL ve E 48 20 20 DE E 10 91 11 11 JR -1 5 PH 60 AR [place] MA LL MG CY IA M TA OF F BL ET CY NT HI AN A 00 04 04 0 12 30 EA 22 MC Ac 59 -1 -[address] 05 KE ti 10 0- 0- 00 SI 59 FL ve 54 20 20 0 DE E 00 11 11 JR 1 PH AR [place] MA LL CY IA M OF F CY NT HI AN A CL 00 04 04 0 90 30 EA 22 MC Ac ON 09 -0 -[address] 01 KE ti AZ 30 6- 6- 00 SI 40 FL ve EP 83 20 20 DE E AM 20 11 11 JR 1 PH 0. [place] 5 MA LL MG CY IA M TA OF F BL ET CY NT HI AN A HY 00 04 04 2 30 30 EA [address] 59 -0 -[address] 97 KE ti OC 10 4- 4- 00 SI 70 FL ve HL 34 20 20 DE E [...] DE TA RA 10 11 11 D FL 5 PH CA DE AR MP 5 MA BE CY LL MG K OF TA BL CY ET NT HI AN A NE 00 02 03 2 30 30 EA 21 MC Ac XI 18 -2 -[address] 33 KE ti UM 65 1- 2- 00 SI 04 FL ve 04 [address] 03 11 11 JR 1 PH 40 AR WI MA LL MG CY IA M CA OF F PS UL CY E NT HI AN A SI 16 02 03 2 30 30 EA 21 MC Ac MV 71 -1 -[address] 26 KE ti 40 6- 2- 00 SI 51 FL ve TA 68 20 20 DE E [...] RG 80 3- 9- 00 SI 32 FL ve E 48 20 20 DE E 10 91 10 11 JR -1 5 PH 60 AR [place] MA LL MG CY IA M TA OF F BL ET CY NT HI AN A LA 00 01 03 2 20 5 EA 20 MC Ac OM 78 -1 -[address] 84 KE ti ET 11 7- 9- 00 SI 38 FL ve NG 83 20 20 DE E ZI 01 11 11 JR NE 0 PH AR WI 25 MA LL CY IA MG M OF F TA BL CY ET NT HI AN A CL 00 03 03 0 90 30 EA 21 MC Ac ON 09 -0 -[address] 58 KE ti AZ 30 7- 7- 00 SI 91 FL ve EP 83 20 20 DE E AM 20 11 11 JR 1 PH 0. [place] 5 MA LL MG CY IA M TA OF F BL ET CY NT HI AN A HY 00 12 03 2 30 30 EA [address] 59 -2 -[address] 58 KE ti OC 10 9 4 00 SI 00 FL ve HL 34 20 20 DE E [...] 33 KE ti UM 65 SI 04 FL ve 04 [address] 03 11 11 JR 1 PH 40 [place] MA LL MG CY IA M CA OF F PS UL CY E NT HI AN A FL 00 01 02 1 7. 7 EA 20 MC Ac UC 17 -1 -[address] 81 KE ti ON 25 5- 6- 0 SI 97 FL ve AZ 41 20 20 DE E OL 14 11 11 JR E 6 PH 10 AR WI 0 MA LL MG CY IA M TA OF F BL ET CY NT HI AN A SI 16 02 02 2 30 30 EA 21 MC Ac MV 71 -1 -[address] 26 KE ti 40 6 6- 00 SI 51 FL ve TA 68 20 20 DE E TI 40 11 11 JR N 3 PH 40 AR [place] MA LL MG CY IA M TA OF F BL ET CY NT HI AN A [place] 00 01 02 1 60 4 EA [address] 16 -1 -[address] 84 KE ti AT 80 7- 5- 00 SI 39 FL ve IN 08 20 20 DE E -T 16 11 11 JR RI 0 PH AM AR WI CI MA LL NO CY IA LO M NE OF F CR CY EA NT M HI AN A 00 02 02 0 12 30 EA 21 MC Ac 59 -1 -[address] 20 KE ti 10 SI 16 FL ve 54 20 20 0 DE E 00 11 11 JR 1 PH AR [place] MA LL CY IA M OF F CY NT HI AN A CL 00 12 02 2 90 30 EA 20 MC Ac ON 09 -0 -[address] 32 KE ti AZ 30 9- 7- 00 SI 83 FL ve EP 83 20 20 DE E AM 20 10 11 JR 1 PH 0. [place] 5 MA LL MG CY IA M TA OF F BL ET CY NT HI AN A EX 00 12 02 3 30 30 EA 20 MC Ac FO 07 -0 -[address] 24 KE ti RG 80 3- 5- 00 SI 32 FL ve E 48 20 20 DE E 10 91 10 11 JR -1 5 PH 60 AR [place] MA LL MG CY IA M TA OF F BL ET CY NT HI AN A HY 00 12 01 2 30 30 EA [address] 59 -2 -[address] 58 KE ti OC 10 9- 0- 00 SI 00 FL ve HL 34 20 20 DE E [...] UM 65 8- 0- 00 SI 05 FL ve 04 [address] 03 10 11 JR 1 PH 40 AR [place] MA LL MG CY IA M CA OF F PS UL CY E NT HI AN A LA 00 01 01 2 20 5 EA 20 MC Ac OM 78 -1 -[address] 84 KE ti ET 11 7- 7- 00 SI 38 FL ve NG 83 20 20 DE E ZI 01 11 11 JR NE 0 PH AR WI 25 MA LL CY IA MG M OF F TA BL CY ET NT HI AN A [place] 00 01 01 1 60 4 EA [address] 16 -1 -[address] 84 KE ti AT 80 7- 7- 00 SI 39 FL ve IN 08 20 20 DE E [...] ON 25 5- 5- 0 SI 97 FL ve AZ 41 20 20 DE E OL 14 11 11 JR E 6 PH 10 AR WI 0 MA LL MG CY IA M TA OF F BL ET CY NT HI AN A 00 01 01 0 30 15 EA 20 MC Ac 14 -1 -[address] 81 KE ti 31 5- 5- 00 SI 98 FL ve 47 20 20 DE E 70 11 11 JR 5 PH AR WI MA LL CY IA M OF F CY NT HI AN A SI 16 12 01 1 30 30 EA 20 MC Ac MV 71 -1 -[address] 42 KE ti 40 6- 5- 00 SI 49 FL ve TA 68 20 20 DE E TI 40 10 11 JR N 3 PH 40 AR WI MA LL MG CY IA M TA OF F BL ET CY NT HI AN A MU 00 01 01 0 22 4 EA 20 MC Ac PI 09 -1 -[address] 81 KE ti RO 31 4- 4- 00 SI 11 FL ve CI 01 20 20 DE E [...] AM 60 0- 0- 00 SI 99 FL ve ET 27 20 20 DE E [...] RO 31 0- 0- 00 SI 00 FL ve CI 01 20 20 DE E N 04 11 11 JR 2% 2 PH AR WI OI MA LL NT CY IA ME M NT OF F CY NT HI AN A CL 00 12 01 2 90 30 EA 20 MC Ac ON 09 -0 -[address] 32 KE ti AZ 30 9- 8- 00 SI 83 FL ve EP 83 20 20 DE E AM 20 10 11 JR 1 PH 0. AR [place] 5 MA LL MG CY IA M TA OF F BL ET CY NT HI AN A EX 00 12 01 3 30 30 EA 20 MC Ac FO 07 -0 -[address] 24 KE ti RG 80 3- 4- 00 SI 32 FL ve E 48 20 20 DE E 10 91 10 11 JR -1 5 PH 60 AR [place] MA LL MG CY IA M TA OF F BL ET CY NT HI AN A HY 00 12 12 2 30 30 EA [address] 59 -2 -[address] 58 KE ti OC 10 9 SI 00 FL ve HL 34 20 20 DE E [...] UM 65 8- 0- 00 SI 05 FL ve 04 [address] 03 10 10 JR 1 PH 40 AR [place] MA LL MG CY IA M CA OF F PS UL CY E NT HI AN A SI 16 12 12 1 30 30 EA 20 MC Ac MV 71 -1 -[address] 42 KE ti 40 6- 6- 00 SI 49 FL ve TA 68 20 20 DE E TI 40 10 10 JR N 3 PH 40 AR [place] MA LL MG CY IA M TA OF F BL ET CY NT HI AN A CL 00 12 12 2 90 30 EA 20 MC Ac ON 09 -0 -[address] 32 KE ti AZ 30 SI 83 FL ve EP 83 20 20 DE E AM 20 10 10 JR 1 PH 0. [place] 5 MA LL MG CY IA M TA OF F BL ET CY NT HI AN A EX 00 12 12 3 30 30 EA 20 MC Ac FO 07 -0 -[address] 24 KE ti RG 80 3- 3- 00 SI 32 FL ve E 48 20 20 DE E 10 91 10 10 JR -1 5 PH 60 AR [place] MA LL MG CY IA M TA OF F BL ET CY NT HI AN A HY 00 09 11 2 30 30 EA [address] 59 -2 -[address] 23 KE ti OC 10 SI 17 FL ve HL 34 20 20 DE E [...] UM 65 8- 0- 00 SI 05 FL ve 04 [address] 03 10 10 JR 1 PH 40 AR [place] MA LL MG CY IA M CA OF F PS UL CY E NT HI AN A SI 16 08 11 3 30 30 EA 18 MC Ac MV 71 -0 -[address] 64 KE ti 40 9- 5- 00 SI 89 FL ve TA 68 20 20 DE E TI 40 10 10 JR N 3 PH 40 AR [place] MA LL MG CY IA M TA OF F BL ET CY NT HI AN A CL 00 11 11 0 90 30 EA 19 MC Ac ON 09 -0 -[address] 88 KE ti AZ 30 8- 8- 00 SI 62 FL ve EP 83 20 20 DE E AM 20 10 10 JR 1 PH 0. [place] 5 MA LL MG CY IA M TA OF F BL ET CY NT HI AN A EX 00 05 11 5 30 30 EA 17 MC Ac FO 07 -2 -[address] 70 KE ti RG 80 2- 3- 00 SI 24 FL ve E 48 20 20 DE E 10 91 10 10 JR -1 5 PH 60 AR [place] MA LL MG CY IA M TA OF F BL ET CY NT HI AN A HY 00 09 10 2 30 30 EA [address] 59 -2 -[address] 23 KE ti OC 10 1- 3- 00 SI 17 FL ve HL 34 20 20 DE E [...] TH 81 8- 3- 00 SI 58 FL ve YR 80 20 20 DE E OX 30 10 10 JR IN 1 PH E AR WI 50 MA LL CY IA MC M G OF F TA BL CY ET NT HI AN A NE 00 10 10 3 30 30 EA 19 MC Ac XI 18 -1 -[address] 59 KE ti UM 65 8- 8- 00 SI 05 FL ve 04 [address] 03 10 10 JR 1 PH 40 AR [place] MA LL MG CY IA M CA OF F PS UL CY E NT HI AN A SI 16 08 10 3 30 30 EA 18 MC Ac MV 71 -0 -[address] 64 KE ti 40 9- 5- 00 SI 89 FL ve TA 68 20 20 DE E TI 40 10 10 JR N 3 PH 40 AR [place] MA LL MG CY IA M TA OF F BL ET CY NT HI AN A 00 10 10 0 12 30 EA 19 MC Ac 59 -1 -[address] 53 KE ti 10 3- 3- 00 SI 11 FL ve 54 20 20 0 DE E 00 10 10 JR 1 PH AR [place] MA LL CY IA M OF F CY NT HI AN A CL 00 10 10 0 90 30 EA 19 MC Ac ON 09 -0 -[address] 46 KE ti AZ 30 8- 8- 00 SI 44 FL ve EP 83 20 20 DE E AM 20 10 10 JR 1 PH 0. [place] 5 MA LL MG CY IA M TA OF F BL ET CY NT HI AN A EX 00 05 10 5 30 30 EA 17 MC Ac FO 07 -2 -[address] 70 KE ti RG 80 2- 2- 00 SI 24 FL ve E 48 20 20 DE E 10 91 10 10 JR -1 5 PH 60 AR [place] MA LL MG CY IA M TA OF F BL ET CY NT HI AN A GALLAGHER 53 09 09 0 20 10 EA 19 MC Ac LF 74 -2 -[address] 28 KE ti AM 60 4- 4- 00 SI 32 FL ve ET 27 20 20 DE E [...] TH 81 8- 1- 00 SI 58 FL ve YR 80 20 20 DE E OX 30 10 10 JR IN 1 PH E AR WI 50 MA LL CY IA MC M G OF F TA BL CY ET NT HI AN A HY 00 09 09 2 30 30 EA [address] 59 -2 -[address] 23 KE ti OC 10 1- 1- 00 SI 17 FL ve HL 34 20 20 DE E OR 70 10 10 JR OT 1 PH HI AR [place] MA LL ID CY IA E M 12 OF F .5 CY MG NT HI CP AN A SI 16 08 09 3 30 30 EA 18 Ac MV 71 -0 -[address] 64 KE ti 40 9- 4- 00 SI 89 FL ve TA 68 20 20 DE E TI 40 10 10 JR N 3 PH 40 AR WI MA LL MG CY IA M TA OF F BL ET CY NT HI AN A 00 09 09 0 12 30 EA 19 Ac 59 -1 -[address] 10 KE ti 10 3- 3- 00 SI 99 FL ve 54 20 20 0 DE E 00 10 10 JR 1 PH AR [place] MA LL CY IA M OF F CY NT HI AN A CL 00 09 09 0 90 30 EA 19 Ac ON 09 -0 -[address] 04 KE ti AZ 30 8 8 SI 54 FL ve EP 83 20 20 DE E AM 20 10 10 JR 1 PH 0. AR WI 5 MA LL MG CY IA M TA OF F BL ET CY NT HI AN A EX 00 05 09 5 30 30 EA 17 Ac FO 07 -2 -[address] 70 KE ti RG 80 2- 1- 00 SI 24 FL ve E 48 20 20 DE E [...] OC 10 7- 8- 00 SI 77 FL ve HL 34 20 20 DE E OR 70 10 10 JR OT 1 PH HI AR [place] MA LL ID CY IA E M 12 OF F .5 CY MG NT HI CP AN A LE 00 08 08 2 30 30 EA 18 Ac VO 37 -1 -[address] 75 KE ti TH 81 8- 8- 00 SI 58 FL ve YR 80 20 20 DE E OX 30 10 10 JR IN 1 PH E AR [place] 50 MA LL CY IA MC M G OF F TA BL CY ET NT HI AN A 00 08 08 0 12 30 EA 18 MC Ac 59 -1 -[address] 71 KE ti 10 4- 4- 00 SI 12 FL ve 54 20 20 0 DE E 00 10 10 JR 1 PH AR [place] MA LL CY IA M OF F CY NT HI AN A CL 00 08 08 0 90 30 EA 18 MC Ac ON 09 -0 -[address] 64 KE ti AZ 30 9 9 00 SI 45 FL ve EP 83 20 20 DE E AM 20 10 10 JR 1 PH 0. AR [place] 5 MA LL MG CY IA M TA OF F BL ET CY NT HI AN A NE 00 08 08 3 60 30 EA 18 MC Ac XI 18 -0 -[address] 64 KE ti UM 65 9- 9 00 SI 88 FL ve 04 [address] 03 10 10 JR 1 PH 40 AR [place] MA LL MG CY IA M CA OF F PS UL CY E NT HI AN A SI 16 08 08 3 30 30 EA 18 MC Ac MV 71 -0 -[address] 64 KE ti 40 9 9 SI 89 FL ve TA 68 20 20 DE E TI 40 10 10 JR N 3 PH 40 AR [place] MA LL MG CY IA M TA OF F BL ET CY NT HI AN A EX 00 05 07 5 30 30 EA 17 MC Ac FO 07 -2 -[address] 70 KE ti RG 80 2- 8- 00 SI 24 FL ve E 48 20 20 DE E 10 91 10 10 JR -1 5 PH 60 AR [place] MA LL MG CY IA M TA OF F BL ET CY NT HI AN A LE 00 04 07 3 30 30 EA 17 MC Ac VO 37 -0 -[address] 10 KE ti TH 81 7- 0- 00 SI 12 FL ve YR 80 20 20 DE E OX 30 10 10 JR IN 1 PH E [place] 50 MA LL CY IA MC M G OF F TA BL CY ET NT HI AN A HY 00 05 07 3 30 30 EA [address] 59 -0 -[address] 50 KE ti OC 10 7- 0- 00 SI 77 FL ve HL 34 20 20 DE E [...] AZ 30 8- 8- 00 SI 89 FL ve EP 83 20 20 DE E [...] ti 90 2- 3 00 SI 46 FL ve TA 00 20 20 DE E TI 61 10 10 JR N 7 PH 40 AR [place] MA LL MG CY IA M TA OF F BL ET CY NT HI AN A NE 00 03 07 3 30 30 EA 16 MC Ac XI 18 -1 -[address] 82 KE ti UM 65 7- 3 00 SI 12 FL ve 04 [address] 03 10 10 JR 1 PH 40 [place] MA LL MG CY IA M CA OF F PS UL CY E NT HI AN A EX 00 05 06 5 30 30 EA 17 MC Ac FO 07 -2 -[address] 70 KE ti RG 80 2 7 00 SI 24 FL ve E 48 20 20 DE E 10 91 10 10 JR -1 5 PH 60 AR [place] MA LL MG CY IA M TA OF F BL ET CY NT HI AN A 00 06 06 0 12 30 EA 17 MC Ac 59 -1 -[address] 97 KE ti 10 4- 4- 00 SI 41 FL ve 54 20 20 0 DE E 00 10 10 JR 1 PH AR [place] MA LL CY IA M OF F CY NT HI AN A LE 00 04 06 3 30 30 EA 17 MC Ac VO 37 -0 -[address] 10 KE ti TH 81 7- 1- 00 SI 12 FL ve YR 80 20 20 DE E OX 30 10 10 JR IN 1 PH E [place] 50 MA LL CY IA MC M G OF F TA BL CY ET NT HI AN A HY 00 05 06 3 30 30 EA [address] 59 -0 -[address] 50 KE ti OC 10 7- 1- 00 SI 77 FL ve HL 34 20 20 DE E [...] AZ 30 5- 5 00 SI 85 FL ve EP 83 20 20 DE E AM 20 10 10 JR 1 PH 0. [place] 5 MA LL MG CY IA M TA OF F BL ET CY NT HI AN A NE 00 03 05 3 30 30 EA 16 MC Ac XI 18 -1 -[address] 82 KE ti UM 65 7 00 SI 12 FL ve 04 [address] 03 10 10 JR 1 PH 40 [place] MA LL MG CY IA M CA OF F PS UL CY E NT HI AN A SI 65 02 05 3 30 30 EA 16 MC Ac MV 86 -1 -[address] 35 KE ti 20 SI 46 FL ve TA 05 20 20 DE E TI 33 10 10 JR N 0 PH 40 AR [place] MA LL MG CY IA M TA OF F BL ET CY NT HI AN A EX 00 05 05 5 30 30 EA 17 MC Ac FO 07 -2 -[address] 70 KE ti RG 80 2- 2- 00 SI 24 FL ve E 48 20 20 DE E 10 91 10 10 JR -1 5 PH 60 AR [place] MA LL MG CY IA M TA OF F BL ET CY NT HI AN A 00 05 05 0 12 30 EA 17 MC Ac 59 -1 -[address] 61 KE ti 10 5 SI 05 FL ve 54 20 20 0 DE E 00 10 10 JR 1 PH AR [place] MA LL CY IA M OF F CY NT HI AN A LE 00 04 05 3 30 30 EA 17 MC Ac VO 37 -0 -[address] 10 KE ti TH 81 7 7 SI 12 FL ve YR 80 20 20 DE E OX 30 10 10 JR IN 1 PH E [place] 50 MA LL CY IA MC M G OF F TA BL CY ET NT HI AN A HY 00 05 05 3 30 30 EA [address] 59 -0 -[address] 50 KE ti OC 10 7- 7 00 SI 77 FL ve HL 34 20 20 DE E [...] AZ 30 6- 6- 00 SI 98 FL ve EP 83 20 20 DE E AM 20 10 10 JR 1 PH 0. [place] 5 MA LL MG CY IA M TA OF F BL ET CY NT HI AN A SI 65 02 04 3 30 30 EA 16 MC Ac MV 86 -1 -[address] 35 KE ti 20 2- 3- 00 SI 46 FL ve TA 05 20 20 DE E TI 33 10 10 JR N 0 PH 40 AR [place] MA LL MG CY IA M TA OF F BL ET CY NT HI AN A NE 00 03 04 3 30 30 EA 16 MC Ac XI 18 -1 -[address] 82 KE ti UM 65 7- 3 00 SI 12 FL ve 04 [address] 03 10 10 JR 1 PH 40 [place] MA LL MG CY IA M CA OF F PS UL CY E NT HI AN A 00 04 04 0 12 30 EA 17 MC Ac 59 -1 -[address] 20 KE ti 10 5 5 SI 16 FL ve 54 20 20 0 DE E 00 10 10 JR 1 PH AR [place] MA LL CY IA M OF F CY NT HI AN A CL 00 04 04 0 60 30 EA 17 MC Ac ON 09 -[address] 20 KE ti AZ 30 5- 5 00 SI 17 FL ve EP 83 20 20 DE E AM 20 10 10 JR 1 PH 0. [place] 5 MA LL MG CY IA M TA OF F BL ET CY NT HI AN A HY 00 01 04 3 30 30 EA [address] 59 -0 -[address] 81 KE ti OC 10 4 7 SI 52 FL ve HL 34 20 20 DE E OR 70 10 10 JR OT 1 PH HI AR [place] MA LL ID CY IA E M 12 OF F .5 CY MG NT HI CP AN A LE 00 04 04 3 30 30 EA 17 MC Ac VO 37 -0 -[address] 10 KE ti TH 81 7 SI 12 FL ve YR 80 20 20 DE E OX 30 10 10 JR IN 1 PH E [place] 50 MA LL CY IA MC M G OF F TA BL CY ET NT HI AN A SI 65 02 03 3 30 30 EA 16 MC Ac MV 86 -1 -[address] 35 KE ti 20 2 7 SI 46 FL ve TA 05 20 20 DE E TI 33 10 10 JR N 0 PH 40 AR [place] MA LL MG CY IA M TA OF F BL ET CY NT HI AN A CL 00 03 03 0 60 30 EA 16 MC Ac ON [address] .[address] 81 KE ti AZ 30 7 7 SI 84 FL ve EP 83 20 20 DE E AM 20 10 10 JR 1 PH 0. [place] 5 MA LL MG CY IA M TA OF F BL ET CY NT HI AN A NE 00 03 03 3 30 30 EA 16 MC Ac XI 18 -1 -[address] 82 KE ti UM 65 7 SI 12 FL ve 04 [address] 03 10 10 JR 1 PH 40 [place] MA LL MG CY IA M CA OF F PS UL CY E NT HI AN A 00 03 03 0 12 30 EA 16 MC Ac 59 -1 -[address] 81 KE ti 10 7 SI 83 FL ve 54 20 20 0 DE E 00 10 10 JR 1 PH AR [place] MA LL CY IA M OF F CY NT HI AN A LE 00 12 03 3 30 30 EA 15 MC Ac VO 37 -0 -[address] 38 KE ti TH 81 2 8 SI 79 FL ve YR 80 20 20 DE E OX 30 09 10 JR IN 1 PH E [place] 50 MA LL CY IA MC M G OF F TA BL CY ET NT HI AN A HY 00 01 03 3 30 30 EA [address] 59 -0 -[address] 81 KE ti OC 10 8 SI 52 FL ve HL 34 20 20 DE E OR 70 10 10 JR OT 1 PH HI AR [place] MA LL ID CY IA E M 12 OF F .5 CY MG NT HI CP AN A CL 00 02 02 00 60 30 EA 16 MC Ac ON [address] 37 KE ti AZ 30 5 6 SI 94 FL ve EP 83 20 20 DE E AM 20 10 10 JR 1 PH 0. [place] 5 MA LL MG CY IA M TA OF F BL CY ET NT HI AN A 00 02 02 00 12 30 EA 16 MC Ac 59 -1 -[address] 37 KE ti 10 5 6 SI 95 FL ve 54 20 20 0 DE E 00 10 10 JR 1 PH AR [place] MA LL CY IA M OF F CY NT HI AN A SI 65 02 02 00 30 30 EA 16 MC Ac MV 86 -1 -[address] 35 KE ti 20 2- 6- 00 SI 46 FL ve TA 05 20 20 DE E TI 33 10 10 JR N 0 PH 40 AR [place] MA LL MG CY IA M TA OF F BL CY ET NT HI AN A NE 00 08 02 05 30 30 EA 14 MC Ac XI 18 -3 -[address] 06 KE ti UM 65 1 SI 00 FL ve 04 [address] 03 09 10 JR 1 PH 40 AR [place] MA LL MG CY IA M CA OF F PS CY UL NT E HI AN A LE 00 12 02 02 30 30 EA 15 MC Ac VO 37 -0 -[address] 38 KE ti TH 81 2 SI 79 FL ve YR 80 20 20 DE E OX 30 09 10 JR IN 1 PH E [place] 50 MA LL CY IA MC M G OF F TA CY BL NT ET HI AN A HY 00 02 01 30 30 EA [address] 59 -0 -[address] 81 KE ti OC 10 SI 52 FL ve HL 34 20 20 DE E OR 70 10 10 JR OT 1 PH HI AR [place] MA LL ID CY IA E M 12 OF F .5 CY NT MG HI AN CP A CL 00 11 28 00 60 30 EA 15 MC Ac ON 09 -1 -[address] 95 KE ti AZ 30 4 8 SI 83 FL ve EP 83 20 20 DE E AM 20 10 10 JR 1 PH 0. [place] 5 MA LL MG CY IA M TA OF F BL CY ET NT HI AN A SI 65 09 01 03 30 30 EA 14 MC Ac MV 86 -3 -[address] 49 KE ti 20 0- 8- 00 SI 48 FL ve TA 05 20 20 DE E TI 33 09 10 JR N 0 PH 40 AR [place] MA LL MG CY IA M TA OF F BL CY ET NT HI AN A 00 11 28 00 12 30 EA 15 MC Ac 59 -1 -[address] 95 KE ti 10 4- 8 00 SI 82 FL ve 54 20 20 0 DE E 00 10 10 JR 1 PH AR [place] MA LL CY IA M OF F CY NT HI AN A LE 00 12 01 01 30 30 EA 15 MC Ac VO 37 -0 -[address] 38 KE ti TH 81 2- 4- 00 SI 79 FL ve YR 80 20 20 DE E OX 30 09 10 JR IN 1 PH E [place] 50 MA LL CY IA MC M G OF F TA CY BL NT ET HI AN A HY 00 01 01 00 30 30 EA [address] 59 -0 -[address] 81 KE ti OC 10 4- 4- 00 SI 52 FL ve HL 34 20 20 DE E [...] UM 65 1- 4- 00 SI 00 FL ve 04 [address] 03 09 10 JR 1 PH 40 AR [place] MA LL MG CY IA M CA OF F PS CY UL NT E HI AN A CL 00 12 12 00 60 30 EA 15 MC Ac ON 09 -1 -[address] 56 KE ti AZ 30 4 SI 09 FL ve EP 83 20 20 DE E AM 20 09 09 JR 1 PH 0. [place] 5 MA LL MG CY IA M TA OF F BL CY ET NT HI AN A 00 12 12 00 12 30 EA 15 MC Ac 59 -1 -[address] 56 KE ti 10 4 SI 08 FL ve 54 20 20 0 DE E 00 09 09 JR 1 PH AR [place] MA LL CY IA M OF F CY NT HI AN A LE 00 12 12 00 30 30 EA 15 MC Ac VO 37 -0 -[address] 38 KE ti TH 81 2- 7- 00 SI 79 FL ve YR 80 20 20 DE E OX 30 09 09 JR IN 1 PH E [place] 50 MA LL CY IA MC M G OF F TA CY BL NT ET HI AN A NE 00 08 12 03 30 30 EA 14 MC Ac XI 18 -3 -[address] 06 KE ti UM 65 1- 7- 00 SI 00 FL ve 04 [address] 03 09 09 JR 1 PH 40 AR [place] MA LL MG CY IA M CA OF F PS CY UL NT E HI AN A HY 00 07 12 04 30 30 EA [address] 59 -1 -[address] 47 KE ti OC 10 4 7 00 SI 77 FL ve HL 34 20 20 DE E OR 70 09 09 JR OT 1 PH HI [place] MA LL ID CY IA E M 12 OF F .5 CY NT MG HI AN CP A SI 65 09 12 02 30 30 EA 14 MC Ac MV 86 -3 -[address] 49 KE ti 20 0- 7 00 SI 48 FL ve TA 05 20 20 DE E TI 33 09 09 JR N 0 PH 40 AR [place] MA LL MG CY IA M TA OF F BL CY ET NT HI AN A CL 00 11 12 00 60 30 EA 15 MC Ac ON 09 -1 -[address] 13 KE ti AZ 30 4 3 00 SI 29 FL ve EP 83 20 20 DE E AM 20 09 09 JR 1 PH 0. AR [place] 5 MA LL MG CY IA M TA OF F BL CY ET NT HI AN A SI 65 09 11 01 30 30 EA 14 MC Ac MV 86 -3 -[address] 49 KE ti 20 0- 9 00 SI 48 FL ve TA 05 20 20 DE E TI 33 09 09 JR N 0 PH 40 AR [place] MA LL MG CY IA M TA OF F BL CY ET NT HI AN A NE 00 08 11 02 30 30 EA 14 MC Ac XI 18 -3 -[address] 06 KE ti UM 65 SI 00 FL ve 04 [address] 03 09 09 JR 1 PH 40 AR [place] MA LL MG CY IA M CA OF F PS CY UL NT E HI AN A LE 00 07 11 03 30 30 EA 13 MC Ac VO 37 -2 -[address] 63 KE ti TH 81 7 SI 09 FL ve YR 80 20 20 DE E OX 30 09 09 JR IN 1 PH E AR [place] 50 MA LL CY IA MC M G OF F TA CY BL NT ET HI AN A HY 00 07 11 03 30 30 EA [address] 59 -1 -[address] 47 KE ti OC 10 4 5 SI 77 FL ve HL 34 20 20 DE E OR 70 09 09 JR OT 1 PH HI [place] MA LL ID CY IA E M 12 OF F .5 CY NT MG HI AN CP A 00 10 10 00 12 30 EA 14 MC Ac 59 -1 -[address] 69 KE ti 10 4 2 SI 56 FL ve 54 20 20 0 DE E 00 09 09 JR 1 PH AR [place] MA LL CY IA M OF F CY NT HI AN A CL 00 10 10 00 60 30 EA 14 MC Ac ON -[address] 69 KE ti AZ 30 4- 2- 00 SI 57 FL ve EP 83 20 20 DE E AM 20 09 09 JR 1 PH 0. [place] 5 MA LL MG CY IA M TA OF F BL CY ET NT HI AN A NE 00 08 10 01 30 30 EA 14 MC Ac XI 18 -3 -[address] 06 KE ti UM 65 1- 2- 00 SI 00 FL ve 04 [address] 03 09 09 JR 1 PH 40 AR [place] MA LL MG CY IA M CA OF F PS CY UL NT E HI AN A LE 00 07 10 02 30 30 EA 13 MC Ac VO 37 -2 -[address] 63 KE ti TH 81 7- 8- 00 SI 09 FL ve YR 80 20 20 DE E OX 30 09 JR IN 1 PH E AR [place] 50 MA LL CY IA MC M G OF F TA CY BL NT ET HI AN A SI 65 09 10 00 30 30 EA 14 MC Ac MV 86 -3 -[address] 49 KE ti 20 0- 8- 00 SI 48 FL ve TA 05 20 20 DE E TI 33 09 09 JR N 0 PH 40 AR [place] MA LL MG CY IA M TA OF F BL CY ET NT HI AN A CL 00 09 09 00 60 30 EA 14 Ac ON -[address] 23 KE ti AZ 30 4- 4- 00 SI 85 FL ve EP 83 20 20 DE E AM 20 09 JR 1 PH 0. [place] 5 MA LL MG CY IA M TA OF F BL CY ET NT HI AN A 00 09 09 00 12 30 EA 14 MC Ac 59 -1 -[address] 23 KE ti 10 4- 4- 00 SI 84 FL ve 54 20 20 0 DE E 00 09 09 JR 1 PH AR [place] MA LL CY IA M OF F CY NT HI AN A HY 00 07 09 02 30 30 EA [address] 59 -1 -[address] 47 KE ti OC 10 4- 4- 00 SI 77 FL ve HL 34 20 20 DE E [...] TH 81 7- 0- 00 SI 09 FL ve YR 80 20 20 DE E OX 30 09 09 JR IN 1 PH E [place] 50 MA LL CY IA MC M G OF F TA CY BL NT ET HI AN A NE 00 08 09 00 30 30 EA 14 MC Ac XI 18 -3 -[address] 06 KE ti UM 65 1- 0- 00 SI 00 FL ve 04 [address] 03 09 09 JR 1 PH 40 AR [place] MA LL MG CY IA M CA OF F PS CY UL NT E HI AN A CL 00 08 08 00 60 30 EA 13 MC Ac ON 09 -1 -[address] 84 KE ti AZ 30 4- 7- 00 SI 73 FL ve EP 83 20 20 DE E AM 20 09 09 JR 1 PH 0. AR [place] 5 MA LL MG CY IA M TA OF F BL CY ET NT HI AN A SI 65 05 08 03 30 30 EA 12 MC Ac MV 86 -0 -[address] 56 KE ti 20 1- 7- 00 SI 59 FL ve TA 05 20 20 DE E TI 33 09 09 JR N 0 PH 40 AR [place] MA LL MG CY IA M TA OF F BL CY ET NT HI AN A HY 00 07 08 01 30 30 EA [address] 59 -1 -[address] 47 KE ti OC 10 4- 7- 00 SI 77 FL ve HL 34 20 20 DE E OR 70 09 09 JR OT 1 PH HI AR [place] MA LL ID CY IA E M 12 OF F .5 CY NT MG HI AN CP A 00 08 08 00 12 30 EA 13 MC Ac 59 -1 -[address] 84 KE ti 10 4- 7- 00 SI 74 FL ve 54 20 20 0 DE E 00 09 09 JR 1 PH AR [place] MA LL CY IA M OF F CY NT HI AN A LE 00 07 08 00 30 30 EA 13 MC Ac VO 37 -2 -[address] 63 KE ti TH 81 7- 3- 00 SI 09 FL ve YR 80 20 20 DE E OX 30 09 09 JR IN 1 PH E [place] 50 MA LL CY IA MC M G OF F TA CY BL NT ET HI AN A NE 00 04 08 03 30 30 EA 12 MC Ac XI 18 -1 -[address] 35 KE ti UM 65 5- 3- 00 SI 57 FL ve 04 [address] 03 09 09 JR 1 PH 40 AR [place] MA LL MG CY IA M CA OF F PS CY UL NT E HI AN A SI 65 05 07 02 30 30 EA 12 MC Ac MV 86 -0 -[address] 56 KE ti 20 1- 0- 00 SI 59 FL ve TA 05 20 20 DE E TI 33 09 09 JR N 0 PH 40 AR [place] MA LL MG CY IA M TA OF F BL CY ET NT HI AN A 00 07 07 00 12 30 EA 13 MC Ac 59 -1 -[address] 50 KE ti 10 5- 0- 00 SI 62 FL ve 54 20 20 0 DE E 00 09 09 JR 1 PH AR [place] MA LL CY IA M OF F CY NT HI AN A CL 00 05 07 02 60 30 EA 12 MC Ac ON 09 -1 -[address] 75 KE ti AZ 30 5- 0- 00 SI 71 FL ve EP 83 20 20 DE E AM 20 09 09 JR 1 PH 0. [place] 5 MA LL MG CY IA M TA OF F BL CY ET NT HI AN A HY 00 07 07 00 30 30 EA [address] 59 -1 -[address] 47 KE ti OC 10 4- 0- 00 SI 77 FL ve HL 34 20 20 DE E [...] UM 65 5- 6- 00 SI 57 FL ve 04 [address] [...] CL 40 3- 2- 00 SI 20 FL ve OP 06 20 20 DE E RA 20 09 09 JR FL 6 PH DE AR WI MA LL 10 CY IA M MG OF F CY TA NT BL HI ET AN A HY 00 05 07 01 30 30 EA [address] 59 -1 -[address] 72 KE ti OC 10 2- 2- 00 SI 08 FL ve HL 34 20 20 DE E OR 70 09 09 JR OT 1 PH HI AR [place] MA LL ID CY IA E M 12 OF F .5 CY NT MG HI AN CP A 00 06 07 00 12 30 EA 13 MC Ac 59 -1 -[address] 16 KE ti 10 6- 2- 00 SI 06 FL ve 54 20 20 0 DE E 00 09 09 JR 1 PH AR [place] MA LL CY IA M OF F CY NT HI AN A CL 00 05 07 01 60 30 EA 12 MC Ac ON 09 -1 -[address] 75 KE ti AZ 30 5- 2- 00 SI 71 FL ve EP 83 20 20 DE E AM 20 09 09 JR 1 PH 0. [place] 5 MA LL MG CY IA M TA OF F BL CY ET NT HI AN A SI 65 05 06 01 30 30 EA 12 MC Ac MV 86 -0 -[address] 56 KE ti 20 1- 8 SI 59 FL ve TA 05 20 20 DE E TI 33 09 09 JR N 0 PH 40 AR [place] MA LL MG CY IA M TA OF F BL CY ET NT HI AN A NE 00 04 06 01 30 30 EA 12 MC Ac XI 18 -1 -[address] 35 KE ti UM 65 5- 4- 00 SI 57 FL ve 04 [address] 03 09 09 JR 1 PH 40 AR [place] MA LL MG CY IA M CA OF F PS CY UL NT E HI AN A 00 05 06 00 12 30 EA 12 MC Ac 59 -1 -[address] 77 KE ti 10 8- 4- 00 SI 89 FL ve 54 20 20 0 DE E [...] OC 10 2- 1- 00 SI 08 FL ve HL 34 20 20 DE E OR 70 09 09 JR OT 1 PH HI AR [place] MA LL ID CY IA E M 12 OF F .5 CY NT MG HI AN CP A CL 00 05 05 00 60 30 EA 12 MC Ac ON 09 -[address] 75 KE ti AZ 30 5- 1- 00 SI 71 FL ve EP 83 20 20 DE E AM 20 09 09 JR 1 PH 0. [place] 5 MA LL MG CY IA M TA OF F BL CY ET NT HI AN A ME 60 05 05 00 30 30 EA 12 MC Ac LO 50 -1 -[address] 75 KE ti XI 52 00 SI 72 FL ve CA 55 20 20 DE E M 40 09 09 JR 15 1 PH AR [place] MG MA LL CY IA TA M BL OF F ET CY NT HI AN A SI 65 05 05 00 30 30 EA 12 MC Ac MV 86 -0 -[address] 56 KE ti 20 7 SI 59 FL ve TA 05 20 20 DE E TI 33 09 09 JR N 0 PH 40 AR [place] MA LL MG CY IA M TA OF F BL CY ET NT HI AN A ME 49 03 04 01 30 30 EA 11 NG Ac TO 88 -1 -[address] 90 RV ti LA 40 6- 3- 00 SI 94 EY [...] UM 65 5- 3- 00 SI 57 FL ve 04 [address] [...] -1 -[address] 90 RV ti LA 40 6- 6- 00 SI 94 EY [...] ti 20 6- 6- 00 SI 41 FL ve TA 05 20 20 DE E TI 33 08 09 JR N 0 PH 40 AR [place] MA LL MG CY IA M TA OF F BL CY ET NT HI AN A NE 00 03 03 00 30 30 EA 11 MC Ac XI 18 -1 -[address] 83 KE ti UM 65 0- 6- 00 SI 05 FL ve 04 [address] 03 09 09 JR 1 PH 40 AR [place] MA LL MG CY IA M CA OF F PS CY UL NT E HI AN A 00 02 02 00 12 30 EA 11 MC Ac 59 -1 -[address] 48 KE ti 10 6- 6- 00 SI 90 FL ve 54 20 20 0 DE E 00 09 09 JR 1 PH AR [place] MA LL CY IA M OF F CY NT HI AN A ME 49 11 02 03 30 30 EA 10 MC Ac TO 88 -0 -[address] 14 KE ti LA 40 5- 6- 00 SI 65 FL ve OL 40 20 20 DE E OL 50 08 09 JR 1 PH GALLAGHER AR [place] CC MA LL CY IA ER M OF F 50 CY NT MG HI AN TA A B CL 00 02 02 00 60 30 EA 11 MC Ac ON 09 -1 -[address] 48 KE ti AZ 30 6- 6- 00 SI 89 FL ve EP 83 20 20 DE E AM 20 09 09 JR 1 PH 0. [place] 5 MA LL MG CY IA M TA OF F BL CY ET NT HI AN A LE 00 01 02 01 30 30 EA 11 MC Ac VO 37 -1 -[address] 07 KE ti TH 81 3- 6- 00 SI 93 FL ve YR 80 20 20 DE E OX 30 09 JR IN 1 PH E [place] 50 MA LL CY IA MC M G OF F TA CY BL NT ET HI AN A SI 65 10 02 04 30 30 EA 99 MC Ac MV 86 -0 -[address] 75 KE ti 20 6- 6- 00 SI 41 FL ve TA 05 20 20 DE E [...] UM 65 6- 2- 00 SI 45 FL ve 04 [address] 03 08 09 JR 1 PH 40 [place] MA LL MG CY IA M CA OF F PS CY UL NT E HI AN A LE 00 01 01 00 30 30 EA 11 MC Ac VO 37 -1 -[address] 07 KE ti TH 81 3- 0- 00 SI 93 FL ve YR 80 20 20 DE E [...] UM 65 6- 5- 00 SI 45 FL ve 04 [address] 03 08 09 JR 1 PH 40 AR [place] MA LL MG CY IA M CA OF F PS CY UL NT E HI AN A ME 49 11 01 02 30 30 EA 10 MC Ac TO 88 -0 -[address] 14 KE ti LA 40 5- 5- 00 SI 65 FL ve OL 40 20 20 DE E OL 50 08 09 JR 1 PH GALLAGHER AR [place] CC MA LL CY IA ER M OF F 50 CY NT MG HI AN TA A B SI 65 10 01 03 30 30 EA 99 MC Ac MV 86 -0 -[address] 75 KE ti 20 6- 5- 00 SI 41 FL ve TA 05 20 20 DE E TI 33 08 09 JR N 0 PH 40 AR [place] MA LL MG CY IA M TA OF F BL CY ET NT HI AN A LE 00 11 01 01 30 30 EA 10 MC Ac VO 37 -1 -[address] 21 KE ti TH 81 0- 1- 00 SI 64 FL ve YR 80 20 20 DE E [...] -0 -[address] 14 KE ti LA 40 5- 8- 00 SI 65 FL ve OL 40 20 20 DE E OL 50 08 08 JR 1 PH GALLAGHER AR [place] CC MA LL CY IA ER M OF F 50 CY NT MG HI AN TA A B SI 65 10 12 02 30 30 EA 99 MC Ac MV 86 -0 -[address] 75 KE ti 20 6- 8- 00 SI 41 FL ve TA 05 20 20 DE E TI 33 08 08 JR N 0 PH 40 AR [place] MA LL MG CY IA M TA OF F BL CY ET NT HI AN A NE 00 08 12 03 30 30 EA 99 MC Ac XI 18 -2 -[address] 22 KE ti UM 65 6- 8- 00 SI 45 FL ve 04 [address] 03 08 08 JR 1 PH 40 AR [place] MA LL MG CY IA M CA OF F PS CY UL NT E HI AN A 60 12 12 00 12 3 EA 10 MC Ac 25 -0 -[address] 54 KE ti 80 4- 8- 00 SI 81 FL ve 23 20 20 0 DE E 91 08 08 JR 6 PH AR [place] MA LL CY IA M OF F CY NT HI AN A CL 00 10 12 01 60 30 EA 99 MC Ac ON -[address] 81 KE ti AZ 30 0- 8- 00 SI 89 FL ve EP 83 20 20 DE E AM 20 08 08 JR 1 PH 0. [place] 5 MA LL MG CY IA M TA OF F BL CY ET NT HI AN A CL 00 10 11 00 60 30 EA 99 MC Ac ON -[address] 81 KE ti AZ 30 0- 0- 00 SI 89 FL ve EP 83 20 20 DE E AM 20 08 08 JR 1 PH 0. [place] 5 MA LL MG CY IA M TA OF F BL CY ET NT HI AN A SI 65 10 11 01 30 30 EA 99 MC Ac MV 86 -0 -[address] 75 KE ti 20 6- 0- 00 SI 41 FL ve TA 05 20 20 DE E TI 33 08 08 JR N 0 PH 40 AR [place] MA LL MG CY IA M TA OF F BL CY ET NT HI AN A LE 00 11 11 00 30 30 EA 10 MC Ac VO 37 -1 -[address] 21 KE ti TH 81 0- 0- 00 SI 64 FL ve YR 80 20 20 DE E OX 30 08 08 JR IN 1 PH E [place] 50 MA LL CY IA MC M G OF F TA CY BL NT ET HI AN A ME 49 11 11 00 30 30 EA 10 MC Ac TO 88 -0 -[address] 14 KE ti LA 40 5- 0- 00 SI 65 FL ve OL 40 20 20 DE E OL 50 08 08 JR 1 PH GALLAGHER AR [place] CC MA LL CY IA ER M OF F 50 CY NT MG HI AN TA A B NE 00 08 11 02 30 30 EA 99 MC Ac XI 18 -2 -[address] 22 KE ti UM 65 6- 7- 00 SI 45 FL ve 04 [address] 03 08 08 JR 1 PH 40 AR [place] MA LL MG CY IA M CA OF F PS CY UL NT E HI AN A ME 49 07 10 03 30 30 EA 98 No Ac TO 88 -0 -[address] 58 t ti LA 40 1- 3- 00 SI 13 Av [...] -0 -[address] 58 t ti LA 40 1- 1- 00 SI 13 Av [...] CY UL NT E HI AN A LA 37 08 08 00 30 30 EA [...] 01 30 30 EA 98 No Ac LA 18 -0 -[address] 58 t [...] 00 30 30 EA 98 No Ac LA 18 -0 -[address] 58 t [...] 9- 7- 00 SI 06 Av ve LA 50 20 20 DE ai AM 98 08 08 la 8 PH bl HB AR e R MA 40 CY MG OF CY TA NT BL HI ET AN A LA 37 04 07 03 30 30 EA [...] BL CY ET NT HI AN A LA 37 04 06 02 30 30 EA [...] 01 30 30 EA 97 No Ac LA 18 -2 -[address] 75 t [...] CY BL NT ET HI AN A LA 37 04 05 30 30 EA 97 [...] 00 30 30 EA 97 No Ac LA 18 -2 -[address] 75 t [...] -2 -[address] 38 t ti LA 40 7- 0- 00 SI 67 Av [...] 7- 0- 00 SI 65 Av ve LA 34 20 20 DE ai AM 30 [...] CY BL NT ET HI AN A LA 37 04 04 00 30 30 EA [...] 7- 5- 00 SI 25 Av ve LA 02 20 20 DE ai ED 20 [...] Procedure DOS Code Location Performer Comment COMPRE 12355 PRISCILA FRANCOIS AUDIOMETR 7 Y THRESHOLD EVAL SP RECOGNIJ TYMPANOME 73331 PRISCILA FRANCOIS TRY 7 DISTORT 86840 FRANCOIS FRANCOIS PRODUCT 7 EVOKED OTOACOUST IC EMISNS LIMITD CREATININ 81858 [facility] SUE E BLOOD 7 [place] [address] LINET[facility] SUE UREA 7 [facility] NITROGEN INC INC QUANTITAT RUPA COLLECTIO 16930 LINETTE SUE N VENOUS 7 [facility] BLOOD INC INC VENIPUNCT URE CT SOFT 53317 [place] DELAROSA TISSUE 7 MEDICAL NECK IMAGING W/[place] [address] LAVINIA TOWNSEND PHOSPHORU 7 Myron TOWNSEND MD,PSC INORGANIC COMPREHEN 50256 LAVINIA TOWNSEND SIVE 7 BOBO [place] [address] LAVINIA TOWNSEND GLUTAMYLT 7 BEKAH TOWNSEND MD,PSC GAMMA BILIRUBIN 42843 LAVINIA TOWNSEND DIRECT 7 MD KRISTIAN,PSC BLOOD 38124 LAVINIA TOWNSEND COUNT 7 DUKE TOWNSEND MD,PSC AUTO&AUTO DIFRNTL WBC DRUG TEST 30443 LAVINIA TOWNSEND PRSMV 7 KRISTIAN INSTRKAYLA DOSS,PSC CHEMISTRY ANALYZERS DRUG TEST 93136 [facility]UE PRSMV 7 [facility] QUAL DIR INC INC OPTICAL OBS PER DAY DRUG TEST G0480 [facility] SUE DEFINITV [address] [facility] [address] ID INC INC METH P DAY 1-7 DRUG CL ECG 65902 [facility]TE SUE ROUTINE 7 [facility] ECG INC INC W/LEAST 12 LDS TRCG ONLY W/O I&[place] [address] LEONEL DELAROSA ABDOMEN 7 MEDICAL W/CONTRAS IMAGING T ASS MATERIAL CT THORAX 73712 [facility] 7 MEDICAL MEDICAL W/CONTRAS IMAGING IMAGING T ASS ASS MATERIAL MYOCARDIA 21258 LEONEL DELAROSA L SPECT 7 MEDICAL MULTIPLE IMAGING STUDIES ASS OBSERVATI 39742 [facility] ON CARE 7 PHYSICIAN DISCHARGE S GROUP MANAGEMEN T INITIAL 19096 [facility] 7 PHYSICIAN CARE/DAY S GROUP 70 MINUTES INITIAL 20839 [facility] OBSERVATI 7 PHYSICIAN ON S GROUP CARE/DAY 50 MINUTES RADIOLOGI 93061 LEONEL DELAROSA C EXAM 7 MEDICAL CHEST 2 IMAGING VIEWS ASS FRONTAL&L ATERAL ECG 03040 LINETTE [place] JR ROUTINE 7 [facility] W/LEAST P 12 LDS I&R ONLY MRI BRAIN 38579 LEONEL DELAROSA BRAIN 7 MEDICAL STEM W/O IMAGING W/CONTRAS ASS T MATERIAL COLLECTIO 32491 LINETTE [place] VENOUS 7 [facility] [place] [address] LINETTE SUE UREA 7 [facility] NITROGEN INC INC QUANTITAT RUPA CREATININ 10089 [facility]TE SUE E BLOOD 7 [facility] INC INC DRUG TEST 02077 LAVINIA KATE PRSMV 7 NORMA TOWNSEND MD,[facility] CHEMISTRY ANALYZERS DRUG TEST 46426 LINETTE SUE PRSMV 7 [facility] QUAL DIR INC INC OPTICAL OBS PER DAY DRUG 16771 [facility]ETTE SUE SCREENING 7 [facility] INC INC BENZODIAZ EPINES 1-12 ECG 11748 [facility]TE SUE ROUTINE 7 [facility] ECG INC INC W/LEAST 12 LDS TRCG ONLY W/O I&R PRQ 88030 [facility] TRLUML 7 PHYSICIAN CORONARY S GROUP STENT W/ANGIO ONE ART/BRNCH CATH PLMT 49131 [facility] L HRT & 7 PHYSICIAN ARTS S GROUP W/NJX & ANGIO IMG S&I TECHNETIU A9502 LINETTE Barrientos TC-99M 7 [facility] TETROFOSM INC INC IN DX PER STUDY DOSE ECHO 73897 LINETTE SUE TTHRC R-T 7 [facility] 2D INC INC W/WOM-MOD E COMPL SPEC&COLR D CV STRS 96438 [facility] SUE TST 7 [facility] XERS&/OR INC INC RX CONT ECG TRCG ONLY MYOCARDIA 49696 LINETTE [place] SPECT 7 [facility] MULTIPLE INC INC STUDIES ECG 26057 [facility] SUE ROUTINE 7 [facility] ECG INC INC W/LEAST 12 LDS TRCG ONLY W/O I&[place] [address] LAVINIA KATE PHOSPHORU 7 Myron TOWNSEND MD,PSC INORGANIC COMPREHEN 49495 L[facility]IA KATE SIVE 7 BOBO TOWNSEND MD,PSC PANEL BILIRUBIN 79878 LAVINIA KATE DIRECT 7 MD KRISTIAN,PSC BLOOD 87619 LAV[facility]IA KATE COUNT 7 DUKE TOWNSEND MD,PSC AUTO&[place] [address] LAVINIA KATE GLUTAMYLT 7 BEKAH TOWNSEND MD,PSC GAMMA DRUG TEST 00030 LAVINIA KATE PRSMV 7 NORMA TOWNSEND MD,PSC CHEMISTRY ANALYZERS HEPATOBIL 02385 [facility]TE SUE SYST 7 [facility] IMAG INC INC INC GB W/PHARMA INTERVENJ TECHNETIU A9537 LINETTE Barrientos TC-99M 7 [facility] MEBROFENI INC INC N DX UP TO 15 MCI ECG 32086 [facility]TE SUE ROUTINE 7 [facility] ECG INC INC W/LEAST 12 LDS TRCG ONLY W/O I&R ECG 09183 [facility] SUE ROUTINE 7 [facility] ECG INC INC W/LEAST 12 LDS TRCG ONLY W/O I&R FINAL G9638 LEONEL LICEA REPORTS 7 MEDICAL W/O DOC IMAGING 1/[place] [address] LIN[facility]TE SUE LIPASE 7 [place] [address] LINETTE SUE ABDOMEN & 7 [facility] PELVIS INC INC W/O CONTRAST MATERIAL THER 25055 LINETTE SUE PROPH/DX 7 [facility] NJX IV INC INC PUSH SINGLE/1S T SBST/DRUG COMPREHEN 71520 [facility]TE SUE SIVE 7 [facility] METABOLIC INC INC PANEL CREATINE 70487 LINETTE SUE KINASE MB 7 [facility] [place] [address] LINETTE SUE AMYLASE 7 [facility] INC INC FINAL G9551 LEONEL LICEA REPR ABD 7 MEDICAL IMAG STS IMAGING W/O ASS INCIDNT FND LES NTD: ECG 28264 LINETTE MCCLAIN ROUTINE 7 [facility] W/LEAST P 12 LDS I&R ONLY RADIOLOGI 57119 LINETTE SUE C EXAM 7 [facility] CHEST 2 INC INC VIEWS FRONTAL&L ATERAL BLOOD 61628 [facility]TE SUE COUNT 7 [facility] COMPLETE INC INC AUTO&[place] [address] LINETTE SUE TROPONIN 7 [facility] QUANTITAT INC INC RUPA CREATINE 77134 LINETTE SUE KINASE 7 [facility] TOTAL INC INC URNLS DIP 57248 [facility]ETTE SUE 7 [facility] STICK/TAB INC INC LET REAGENT AUTO MICROSCOP Y BLOOD 07048 LINETTE SUE COUNT 7 [facility] COMPLETE INC INC AUTO&AUTO DIFRNTL WBC CT LUMBAR 02318 LEONEL LICEA SPINE 7 MEDICAL W/O IMAGING CONTRAST ASS MATERIAL FINAL G9551 LEONEL LICEA REPR ABD 7 MEDICAL IMAG STS IMAGING W/O ASS INCIDNT FND LES NTD: COMPREHEN 51153 [facility]ETTE SUE SIVE 7 [facility] [place] [address] LEONEL LICEA ABDOMEN & 7 MEDICAL PELVIS IMAGING W/O ASS CONTRAST MATERIAL FINAL G9638 LEONEL LICEA REPORTS 7 MEDICAL W/O DOC IMAGING 1/MORE ASS DOSE REDUCTION TECH RADEX 53878 EMERSON NATHAN SPINE 7 LUMBOSACR CHIROPRAC AL 2/3 TIC CENTE VIEWS RADEX 03961 EMERSON NATHAN SPINE 7 CERVICAL CHIROPRAC 2 OR 3 TIC CENTE VIEWS APPL 06690 EMERSON NATHAN MODALITY 7 1/> AREAS CHIROPRAC ELEC TIC CENTE STIMJ UNATTENDE D CHIROPRAC 81723 EMERSON NATHAN TIC 7 MANIPULAT CHIROPRAC RUPA TX TIC CENTE SPINAL 3-4 REGIONS DRUG TEST 91702 LINETTE SUE PRSMV 7 [facility] QUAL DIR INC INC OPTICAL OBS PER DAY DRUG TEST 08447 LAVINIA KATE PRSMV 7 NORMA TOWNSEND MD,[facility] CHEMISTRY ANALYZERS RADEX 08597 LEONEL ANDREA ABDOMEN 7 MEDICAL COMPL IMAGING W/DCBTS&/ ASS ERC VIEWS RADIOLOGI 27659 [facility] ANDREA C EXAM 7 MEDICAL CHEST 2 IMAGING VIEWS ASS FRONTAL&L ATERAL IAADIADOO 86112 [facility]TE SUE 7 [facility] INFLUENZA INC INC DRUG TEST G0480 LINETTE SUE DEFINITV [address] [facility] [address] [address] ID INC INC METH P DAY 1-7 DRUG CL DRUG TEST 18175 LINETTE SUE PRSMV 7 [facility] QUAL DIR INC INC OPTICAL OBS PER DAY BASIC 03963 LINETTE SUE METABOLIC 7 [facility] PANEL INC INC CALCIUM TOTAL HEPATIC 61245 LINETTE SUE FUNCTION 7 [facility] PANEL INC INC LIPID 79997 LINETTE SUE PANEL 7 [facility] INC INC COLLECTIO 53964 LINETTE SUE N VENOUS 7 [facility] BLOOD INC INC VENIPUNCT URE HEMOGLOBI 70611 LINETTE SUE N 7 [facility] GLYCOSYLA INC INC SONG A1C ECG 77540 [facility]ETTE SUE ROUTINE 7 [facility] ECG INC INC W/LEAST 12 LDS TRCG ONLY W/O I&R DRUG TEST G0480 [facility]ETTE SUE DEFINITV [address] [facility] [address] [facility] [address] ID INC INC METH P DAY 1-7 DRUG CL DRUG TEST 67509 LINETTE SUE PRSMV 7 [facility] QUAL DIR INC INC OPTICAL OBS PER DAY COMPREHEN 27902 LINETTE SUE SIVE 7 [facility] METABOLIC INC INC PANEL CT THORAX 22073 LEONEL DELAROSA 7 MEDICAL W/CONTRAS IMAGING T ASS MATERIAL FINAL RPT G[address]/MRI 7 MEDICAL CHEST/NCK IMAGING /U/S NO ASS THR NOD<1.0 [place] [address] [facility]TE SUE LIPASE 7 [facility] INC INC FIBRIN 57888 LINETTE SUE DGRADJ 7 [facility] PRODUCTS INC INC D-DIMER QUAL/SEMI TODD ECG 72319 [facility]TE SUE ROUTINE 7 [facility] ECG INC INC W/LEAST 12 LDS TRCG ONLY W/O I&R FINAL G9638 LEONEL DELAROSA REPORTS 7 MEDICAL W/O DOC IMAGING 1/[place] [address] LINETTE SUE ANGIOGRAP 7 [facility] HY CHEST INC INC W/CONTRAS T/[place] [address] LEONEL DELAROSA ABDOMEN 7 MEDICAL W/[place] [address] LINETTE SUE TROPONIN 7 [facility] QUANTITAT INC INC RUPA BLOOD 39228 LINETTE SUE COUNT 7 [facility] COMPLETE INC INC AUTO&AUTO DIFRNTL WBC URNLS DIP 12417 [facility]ETTE SUE 7 [facility] STICK/TAB INC INC LET REAGENT AUTO MICROSCOP Y NATRIURET 89797 LINETTE SUE IC 7 [facility] PEPTIDE INC INC CREATINE 45480 LINETTE SUE KINASE 7 [facility] TOTAL INC INC COLLECTIO 45859 LINETTE SUE N VENOUS 7 [facility] [place] [address] LINETTE VERMAON AMYLASE 7 [facility] INC INC CREATINE 72443 LINETTE LINETTE KINASE MB 7 [facility] FRACTION INC INC ONLY RADIOLOGI 86472 LEONEL MILLERUTCHER C EXAM 7 MEDICAL CHEST 2 IMAGING VIEWS ASS FRONTAL&L ATERAL FINAL G9551 LEONEL DELAROSA REPR ABD 7 MEDICAL IMAG STS IMAGING W/O ASS INCIDNT FND LES [place]TD: [place] [address] LINETTE VERMAON ANGIOGRAP 7 [facility] HY INC INC ABDOMEN W/CONTRAS T/NONCONT RAST ECG 36618 LINETTE SUE ROUTINE 7 [facility] W/LEAST P P 12 LDS I&R ONLY HEPATITIS 48306 LINETTE SUE A 6 [facility] ANTIBODY INC INC HAAB HEPATITIS 78723 LINETTE SUE C 6 [facility] [place] [address] LINETTE SUE AMYLASE 6 [facility] INC INC COLLECTIO 04594 LINETTE LINETTE N VENOUS 6 [facility] [place] [address] LINETTE SUE THYROID 6 [facility] STIMULAT[facility] INC INC NG HORMONE TSH HEMOGLOBI 13243 [facility]UE N 6 [facility] GLYCOSY[place] [address] [facility] S[facility] LIPASE 6 [facility] INC INC BLOOD 62114 [facility] SUE COUNT 6 [facility] COMPLETE INC INC AUTO&AUTO DIFRNTL WBC HEPATITIS 09603 [facility] SUE B CORE 6 [facility] ANTIBODY INC INC HBCAB TOTAL HEPATITIS 03798 [facility] SUE B SURF 6 [facility] [place] [address] [facility] SUE HEPATITIS 6 [facility] B INC INC SURFACE ANTIGEN DRUG TST G0477 LIN[facility] SUE PRESUMP;C 6 [facility] PBL BEING [place] [address] [facility] SUE THYROXINE 6 [facility] TOTAL INC INC COMPREHEN 59127 [facility] SUE SIVE 6 [facility] METABOLIC INC INC PANEL DRUG TST G0477 LINETTE LINETTE PRESUMP;C 6 [facility] PBL BEING INC INC READ DC OPT OBV ONLY DRUG TEST G0479 KATEDANICA TOWNSEND 6 TOWNSEND, PRESUMP;I ,PSC NSTRUMENT ED CHEMISTRY ANLYZER ECG 72008 LIN[facility] JOHNY ROUTINE 6 [facility] W/LEAST P 12 LDS I&R ONLY COLLECTIO 51590 LIN[facility] SUE N VENOUS 6 [facility] [place] [address] LIN[place] SUE AMYLASE 6 [facility] INC INC CREATINE 52363 LIN[facility] SUE KINASE MB 6 [facility] FRACTION INC INC ONLY BLOOD 77841 LINET[facility] SUE COUNT 6 [facility] COMPLETE INC INC AUTO&[place] [address] LINETTE LINETTE TROPONIN 6 [facility] QUANTITAT INC INC RUPA NATRIURET 96456 LINET[facility] SUE IC 6 [facility] [place] [address] LIN[facility] SUE LIPASE 6 [facility] INC INC CREATINE 55676 LIN[facility] SUE KINASE 6 [facility] TOTAL INC INC FIBRIN 54917 LINET[facility] SUE DGRADJ 6 [facility] PRODUCTS INC INC D-DIMER QUAL/[place] [address] LINETTE LINETTE ANGIOGRAP 6 [facility] HY CHEST INC INC W/CONTRAS T/NONCONT RAST ECG 79180 LINETTE LINETTE ROUTINE 6 [facility] ECG INC INC W/LEAST 12 LDS TRCG ONLY W/O I&R RADIOLOGI 33631 LIN[facility] SUE C 6 [facility] EXAMINATI INC INC ON CHEST [place] FRONT[place] THORAX [address] [place] ZULLY 6 MEDICAL BUBBA W/CONTRAS IMAGING T ASS MATERIAL COMPREHEN 01399 LINETTE LINETTE SIVE 6 [facility] METABOLIC INC INC PANEL DRUG TST G0477 LINETTE SUE PRESUMP;C 6 [facility] PBL [place]ING [place] [address] LIN[facility] SUE CERVICAL 6 [facility] SPINE W/O INC INC CONTRAST MATERIAL THERAPEUT 59308 LIN[facility] SUE IC 6 [facility] PROPHYLAC INC INC TIC/DX INJECTION SUBQ/[place] [address] [place]OSA ALL HEAD/BRAI 6 MEDICAL N W/O IMAGING CONTRAST ASS MATERIAL RADEX 00632 LINETTE SUE SHOULDER 6 [facility] COMPLETE INC INC MINIMUM 2 [place] [address] [facility], SETTEMBRE SURG 6 [facility] PATHOLOGY GROSS&CHARLEY ROSCOPIC EXAM GLUC BLD 27544 [facility] SUE GLUC MNTR 6 [facility] DEV INC INC CLEARED FDA SPEC HOME USE ANES [address] [facility] LOWER 6 ANESTH INTESTINE OF THE BLUE ENDOSCOPY DISTAL DUODENUM COLSC FLX 89445 [facility] SUE W/RMVL 6 [facility] OF TUMOR INC INC POLYP LESION SNARE TQ DRUG TST G0477 [facility] SUE PRESUMP;C 6 [facility] PBL BEING INC INC READ DC OPT OBV ONLY DRUG 10657 [facility]UE SCREENING 6 [facility] INC INC BENZODIAZ EPINES 1-12 COL-CHR/M 89730 LINET[facility] SUE S NONDRUG 6 [facility] ANALYTE INC INC CARLINE QUAL/TODD EA SPEC DRUG 54971 [facility] SCREEN 6 [facility] LIST A INC INC SINGLE DRUG CLASS METHOD COMPREHEN 59728 [facility]UE SIVE 6 [facility] METABOLIC INC INC PANEL HEMOGLOBI 69958 [facility] SUE N 6 [facility] GLYCOSYLA INC INC SONG A1C BLOOD 03739 [facility] COUNT 6 [facility] COMPLETE INC INC AUTO&AUTO DIFRNTL WBC COLLECTIO 24955 [facility]UE N VENOUS 6 [facility] [place] [address] [facility] SUE THYROID 6 [facility] STIMULATI INC INC NG HORMONE TSH PROSTATE G0103 LINET[facility] SUE CANCER 6 [facility] SCREENING INC INC ; PSA TEST LIPID 44742 LINETTE SUE PANEL 6 [facility] [place] [address] LIN[facility] SUE THYROXINE 6 [facility] TOTAL INC INC THERAPEUT 80895 [facility] [place] IC 6 PHYSICIAN CHARLEY PROPHYLAC S GROUP TIC/DX INJECTION SUBQ/IM INJECTION J1100 [facility] [place] 6 PHYSICIAN CHARLEY DEXAMETHO S GROUP SONE SODIUM PHOSPHATE 1 MG INJECTION J1885 [facility] [place] 6 PHYSICIAN CHARLEY KETOROLAC S GROUP TROMETHAM INE PER 15 MG INJECTION J1100 [facility] [place] 6 PHYSICIAN CHARLEY DEXAMETHO S GROUP SONE SODIUM PHOSPHATE 1 MG THERAPEUT 15401 [facility] [place] IC 6 PHYSICIAN CHARLEY PROPHYLAC S GROUP TIC/DX INJECTION SUBQ/IM THERAPEUT 62769 [facility] [place] IC 6 PHYSICIAN EUG PROPHYLAC S GROUP TIC/DX INJECTION SUBQ/IM INJECTION J0696 [facility] [place] 6 PHYSICIAN EUG CEFTRIAXO S GROUP NE SODIUM PER 250 MG INJECTION 60130 BOYD LE LB 6 MD JERMAINE, SINGLE/ML PSC T TRIGGER POINT 1/2 MUSCLES DRUG TST G0477 [facility] SUE PRESUMP;C 6 [facility] PBL BEING INC INC READ DC OPT OBV ONLY DRUG TEST G0481 LINET[facility] SUE DEFINITV 6 [facility] DR ID INC INC METH P DAY 8-14 DRUG CL MRI BRAIN 60020 LINETTE SUE BRAIN 6 [facility] STEM W/O INC INC W/CONTRAS T MATERIAL INJECTION A9576 [facility]ETTE SUE 6 [facility] GADOTERID INC INC [place] [address] LINETTE SUE UREA 6 [facility] NITROGEN INC INC QUANTITAT RUPA COLLECTIO 53018 LINETTE SUE N VENOUS 6 [facility] BLOOD INC INC VENIPUNCT URE CREATININ 79325 LINETTE Iniguez BLOOD 6 [facility] INC INC MRI BRAIN 52268 [facility] SUE BRAIN 6 [facility] STEM W/O INC INC CONTRAST MATERIAL DUPLEX 84343 [facility] SUE SCAN 6 [facility] EXTRACRAN INC INC IAL ART COMPL BI [facility] G0463 [facility] SUE OUTPATIEN 6 [facility] T CLIN INC INC VISIT ASSESS & [place] [address] LINETTE BECKETT CO HEAD/BRAI 6 [facility] HEALTH N W/O INC DEPARTMEN CONTRAST T MATERIAL THER 81583 LINETTE SUE PROPH/DX 6 [facility] NJX IV INC INC PUSH SINGLE/1S T SBST/DRUG INJECTION J2405 [facility] SUE 6 [facility] ONDANSETR INC INC ON HCL PER 1 MG THERAPEUT 14154 [facility] SUE IC 6 [facility] INJECTION INC INC IV PUSH EACH NEW DRUG BLOOD 26279 LINETTE SUE COUNT 6 [facility] COMPLETE INC INC AUTO&AUTO DIFRNTL WBC BASIC 70624 [facility] SUE METABOLIC 6 [facility] PANEL INC INC CALCIUM TOTAL LOCM Q9966 LINETTE SUE 200-299 6 [facility] MG/ML INC INC IODINE CONCENTRA TION PER ML INJECTION J1030 [facility] SUE 6 [facility] METHYLPRE INC INC DNISOLONE ACETATE 40 MG FLUOR 05240 BOYD ASHER NEEDLE/CA 6 MD JERMAINE, PSC SPINE/PAR ASPINAL DX/[place] NJX 03501 BOYD ASHER DX/THER 6 MD JERMAINE, SBST PSC EPIDURAL/ SUBRACH CERV/THOR ACIC INJECTION J2805 [facility] SUE 6 [facility] SINCALIDE INC INC 5 MICROGRAM S TECHNETIU A9537 LINETTE Barrientos TC-99M 6 [facility] MEBROFENI INC INC N DX UP TO 15 MCI HEPATOBIL 33898 LIN[facility] SUE SYST 6 [facility] IMAG INC INC INC GB W/PHARMA INTERVENJ 37439 LEONEL DELAROSA ALL ABDOMINAL 5 MEDICAL REAL IMAGING TIME ASS W/IMAGE LIMITED CUL BACT 99737 [facility] SUE XCPT 5 [facility] URINE INC INC BLOOD/STO OL AEROBIC ISOL GLUC BLD 38918 LINETTE SUE GLUC MNTR 5 [facility] DEV INC [place] [address] LIN[facility] SUE STREPTOCO 5 [facility] [place] [address] LEONEL ZULLY RETROPERI 5 MEDICAL BUBBA TONEAL IMAGING REAL [place] W/[place] [address] LINETTEKING SUE RETROPERI 5 [facility] TONEAL INC INC REAL TIME W/IMAGE COMPLETE E-STIM G0283 LINETTE SUE 1/> AREAS 5 [facility] OTH THAN INC INC WND CARE PART TX PLAN APPL 02969 LINETTE SUE MODALITY 5 [facility] 1/> AREAS INC INC 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 L APPL 10222 LIN[facility]TE SUE MODALITY 5 [facility] 1/> AREAS INC INC ULTRASOUN D EA 15 MIN APPLICATI 07900 [facility] SUE ON 5 [facility] MODALITY INC INC 1/> AREAS HOT/COLD PACKS PHYSICAL 49063 LIN[facility] SUE THERAPY 5 [facility] EVALUATIO INC INC N OPHTH 28747 [facility] 5 XM&EVAL COMPRHNSV ESTAB PT 1/> INJECTION BOYD DEAN MD, SINGLE/ML PSC T TRIGGER POINT 1/2 MUSCLES INJECTION [facility]TE SUE 5 [facility] SINGLE/ML INC INC T TRIGGER POINT 3/> MUSCLES INJECTION J1030 [facility]ETTE SUE 5 [facility] METHYLPRE INC INC DNISOLONE ACETATE 40 MG PSYCHIATR 37824 COMPREHEN MINEER IC 5 D INC EDELMIRA DIAGNOSTI C EVALUATIO N INJECTION 14512 FREDY Fabian MD SINGLE/ML T TRIGGER POINT 1/2 MUSCLES INJECTION 84535 LINETTE SUE 5 [facility] SINGLE/ML INC INC T TRIGGER POINT 3/> MUSCLES INJECTION J1030 [facility]ETTE SUE 5 [facility] METHYLPRE INC INC DNIS[place] [address] [place] [address] LEONEL LICEA HEAD/BRAI 5 MEDICAL DAREN N W/[place] [address] LEONEL LICEA CERVICAL 5 MEDICAL DAREN SPINE W/O IMAGING CONTRAST ASS MATERIAL RADEX 98217 [facility] L[facility]A SPINE 5 MEDICAL DAREN THORACIC IMAGING 2 VIEWS ASS ROGELIO 58348 LINETTE LEIVA POST-VOID 5 [facility] RESIDUAL P URINE&/[facility] G0463 LIN[facility] SUE OUTPATIEN 5 [facility] T CLIN INC INC VISIT ASSESS & MGMT PT ECG 16565 LINETTE VERMAON ROUTINE 5 [facility] ECG INC INC W/LEAST 12 LDS TRCG ONLY W/O I&R ECG 33717 CARDIOVAS CHAYO ROUTINE 5 CULAR MAT ECG CONSULTAN W/LEAST TS O 12 LDS I&R ONLY ECHO 05524 LINETTE LINETTE TTHRC R-T 5 [facility] 2D INC INC W/WOM-MOD E COMPL SPEC&COLR D MYOCARDIA 22980 LINETTE Costa SPECT 5 [facility] MULTIPLE INC INC STUDIES CV STRS 49462 [facility] SARWATU TST 5 PHYSICIAN VENITA XERS&/OR S GROUP RX CONT ECG W/O I&R CV STRS 81187 LINETTE SUE TST 5 [facility] XERS&/OR INC INC RX CONT ECG TRCG ONLY TECHNETIU A9500 LINETTE Barrientos TC-99M 5 [facility] SESTAMIBI INC INC DX PER STUDY DOSE ECG 98399 LINETTE SUE ROUTINE 5 [facility] ECG INC INC W/LEAST 12 LDS TRCG ONLY W/O I&R ECG 59086 CARDIOVAS CHAYO ROUTINE 5 CULAR MAT ECG CONSULTAN W/LEAST TS O 12 LDS I&[place] [address] LINETTE SUE THYROID 5 [facility] STIMULATI INC INC NG HORMONE TSH LIPID 09443 LINETTE SUE PANEL 5 [place] [address] LINETTE SUE THYROXINE 5 [facility] TOTAL INC INC BASIC 31389 LINETTE SUE METABOLIC 5 [facility] PANEL INC INC CALCIUM TOTAL CRITICAL 22683 LINETTE SUE CARE 5 [facility] ED P P PATIENT INIT 30-74 MIN AMB A0427 [facility] SERVICE 5 [facility]ANCE AMBULANCE ALS SERVICE SERVICE EMERGENCY TRANSPORT LEVEL 1 COMPREHEN 04495 LIN[facility]TE SUE SIVE 5 [facility] METABOLIC INC INC PANEL GROUND A0425 [facility] MILEAGE 5 AMBULANCE AM[place]UL[place] [address] LINETTE SUE HEAD/BRAI 5 [facility] N W/O INC INC CONTRAST MATERIAL RADIOLOGI 77586 LEONEL Tyson 5 MEDICAL DAREN EXAMINATI IMAGING ON CHEST ASS SING[place]IEW FRONTAL ECG 79544 LINETTE SUE ROUTINE 5 [facility] ECG INC INC W/LEAST 12 LDS TRCG ONLY W/O I&R CREATINE 46308 LINETTE SUE KINASE MB 5 [facility] FRACTION INC INC ONLY ECG 62267 LINETTE SUE ROUTINE 5 [facility] W/LEAST P P 12 LDS I&R ONLY CREATINE 81258 LINETTE SUE KINASE 5 [facility] TOTAL INC INC BLOOD 41577 LINETTE SUE COUNT 5 [facility] COMPLETE INC INC AUTO&[place] [address] LINETTE SUE TROPONIN 5 [facility] [place] [address] LEONEL ANDREA ANGIOGRAP 4 MEDICAL BUBBA HY IMAGING ABDOMEN ASS W/CONTRAS T/NONCONT RAST LOCM Q9967 LINETTE SUE 300-399 4 [facility] MG/ML INC INC IOD[place] [address] LINETTE SUE UREA 4 [facility] NITROGEN INC INC QUANTITAT RUPA COLLECTIO 68352 LINETTE SUE N VENOUS 4 [facility] BLOOD INC INC VENIPUNCT URE CREATININ 80044 LINETTE SUE E BLOOD 4 [facility] [place] [address] LINETTE SUE HEAD/BRAI 4 [facility] N W/O INC INC CONTRAST MATERIAL THERAPEUT 50677 [facility] [place] IC 4 PHYSICIAN CHARLEY PROPHYLAC S GROUP TIC/DX INJECTION SUBQ/IM INJECTION J0696 [facility] [place] 4 PHYSICIAN CHARLEY CEFTRIAXO S GROUP NE SODIUM PER 250 MG INJECTION J1040 [facility] 4 PHYSICIAN PHYSICIAN METHYLPRE S GROUP S GROUP DNISOLONE ACETATE 80 MG RADIOLOGI 30115 [place] ZULLY C 4 MEDICAL BUBBA EXAMINATI IMAGING ON CHEST ASS SINGLE VIEW FRONTAL DIAB ONLY A5500 [facility] FIT CSTM 4 PREP&SPL SHOE MX DNSITY INSRT FOR DIAB A5512 [facility] ONLY MX 4 DNSITY INSRT DIR FORMD PRFAB EA THERAPEUT 00647 LINETTE SUE IC 4 [facility] PROPHYLAC INC INC TIC/DX INJECTION SUBQ/IM CT LUMBAR 33342 ZULLY ZULLY SPINE 4 [facility]UB[facility] BUBBA W/O CONTRAST MATERIAL THER 53284 LINETTE SUE PROPH/DX 4 [facility] NJX IV INC INC PUSH SINGLE/1S T SBST/[place] [address] ZULLY ZULLY ABDOMEN & 4 BUBBA BUBBA PELVIS W/O CONTRST 1/> BODY RE COMPREHEN 63902 LINETTE SUE SIVE 4 [facility] METABOLIC INC INC PANEL THER 14228 LINETTE SUE PROPH/DX 4 [facility] NJX IV INC INC PUSH SINGLE/1S T SBST/DRUG THROMBOPL 79643 LINETTE SUE ASTIN 4 [facility] TIME INC INC PARTIAL PLASMA/WH OLE BLOOD ECG 13157 LINETTE SUE ROUTINE 4 [facility] ECG INC INC W/LEAST 12 LDS TRCG ONLY W/O I&R PROTHROMB 58281 LINETTE SUE IN TIME 4 [facility] INC INC FIBRIN 65374 LINETTE SUE DGRADJ 4 [facility] PRODUCTS INC INC D-DIMER QUAL/[place] [address] LINETTE SUE ABDOMEN & 4 [facility] PELVIS INC INC W/O CONTRAST MATERIAL ECG 55268 [facility] ROUTINE 4 BRO BRO ECG W/LEAST 12 LDS I&R ONLY RADIOLOGI 26950 LINETTE SUE C EXAM 4 [facility] CHEST 2 INC INC VIEWS FRONTAL&L ATERAL CREATINE 19829 LINETTE SUE KINASE MB 4 [facility] FRACTION INC INC ONLY CREATINE 44658 LINETTE SUE KINASE 4 [facility] [place] [place] [address] LINETTE SUE TROPONIN 4 [facility] QUANTITAT INC INC [place] BLOOD 83005 LINETTE SUE COUNT 4 [facility] COMPLETE INC INC AUTO&AUTO DIFRNTL WBC DRUG SCR G0434 VITA HAM VITA HAM NOT 4 CHROMATOG RAPHIC; ANY NUMBER PT ENC BLOOD 17581 LINETTE SUE COUNT 3 [facility] COMPLETE INC INC AUTO&[place] [address] LINETTE SUE THYROID 3 [facility] STIMULATI INC INC NG HORMONE TSH COMPREHEN 74225 LINETTE SUE SIVE 3 [facility] METABOLIC INC INC PANEL IM ADM 24081 MCKEMIE MCKEMIE PRQ ID 3 JR AREN JR AREN SUBQ/IM NJXS 1 VACCINE IM ADM 10985 RUTKECHRISTIE RUTKEMIE PRQ ID 3 JR AREN JR AREN SUBQ/IM NJXS EA VACCINE IIV3 03303 MCKEMIE MCKEMIE VACCINE 3 JR AREN RAI AREN SPLIT VIRUS 0.5 ML DOSAGE IM USE INJECTION J3301 RUTKEMIE MCKEMIE 3 JR AREN JR AREN TRIAMCINO LONE ACETONIDE NOS 10 MG ADMINISTR G0008 MCKEMIE MCKEMIE ATION OF 3 JR AREN JR AREN INFLUENZA VIRUS VACCINE THERAPEUT 79557 LINETTE SUE IC 3 [facility] PROPHYLAC INC INC TIC/DX INJECTION SUBQ/IM LIPID 74942 LINETTE SUE PANEL 3 [place] [address] LINETTE SUE THYROID 3 [facility] STIMULATI INC INC NG HORMONE TSH COMPREHEN 37210 LINETTE SUE SIVE 3 [facility] METABOLIC INC INC PANEL 3D 00513 LINETTE SUE RENDERING 3 [facility] W/INTERP INC INC & POSTPROCE SS SUPERVISI ON INJECTION A9576 LINETTE SUE 3 [facility] GADOTERID INC INC [place] [address] LINETTE SUE UREA 3 [facility] NITROGEN INC INC QUANTITAT [place] MRI 64531 LINETTE SUE SPINAL 3 [facility] CANAL INC INC CERVICAL W/O CONTRAST MATRL CREATININ 01270 LINETTE SUE E BLOOD 3 [facility] INC INC MRI BRAIN 56813 LINETTE SUE BRAIN 3 [facility] STEM W/O INC INC W/CONTRAS T MATERIAL APPLICATI 35096 LINETTE SUE ON 3 [facility] MODALITY INC INC 1/> AREAS HOT/COLD PACKS APPL 13521 LINETTE SUE MODALITY 3 [facility] 1/> AREAS INC INC 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 L APPL 77687 LINETTE SUE MODALITY 3 [facility] 1/> AREAS INC INC ELEC STIMJ UNATTENDE D APPL 31213 LINETTE SUE MODALITY 3 [facility] 1/> AREAS INC INC ELEC STIMJ UNATTENDE D APPL 66608 LINETTE SUE MODALITY 3 [facility] 1/> AREAS INC INC 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 L APPLICATI 18110 LINETTE SUE ON 3 [facility] MODALITY INC INC 1/> AREAS HOT/COLD PACKS APPL 04468 LINETTE SUE MODALITY 3 [facility] 1/> AREAS INC INC ULTRASOUN D EA 15 MIN PHYSICAL 15998 LINETTE SUE THERAPY 3 [facility] EVALUATIO INC INC N THERAPEUT 23545 LINETTE SUE IC 3 [facility] PROPHYLAC INC INC TIC/DX INJECTION SUBQ/IM INJECTION J3301 LINETTE SUE 3 [facility] TRIAMCINO INC INC LONE ACETONIDE NOS [address] [place] [address] LINETTE SUE CLOSTRIDI 3 [facility] UM INC INC DIFFICILE TOXIN CUL BACT 20976 LINETTE SUE STOOL 3 [facility] AEROBIC INC INC ISOL SALMONELL A&SHIGELL BLOOD 85663 LINETTE SUE OCCULT 3 [facility] PEROXIDAS INC INC E ACTV QUAL FECES 1-3 SPEC SMR PRIM 64280 LINETTE SUE SRC 3 [facility] GRAM/GIEM INC INC SA STAIN BCT FUNGI/ELBA L OVA&DERRICK 46304 LINETTE SUE ITES 3 [facility] DIRECT INC INC SMEARS CONCENTRA TION & ID RADIOLOGI 28890 ZULLY ZULLY C EXAM 3 BUBBA BUBBA CHEST 2 VIEWS FRONTAL&L ATERAL RADEX 26346 ZULLY ZULLY SHOULDER 3 BUBBA BUBBA COMPLETE MINIMUM 2 VIEWS ECG 57956 JOHNY GREENESON ROUTINE 3 [facility] ECG W/LEAST 12 LDS I&R ONLY CREATINE 77702 LINETTE SUE KINASE MB 3 [facility] FRACTION INC INC ONLY CREATINE 56091 LINETTE LINETTE KINASE 3 [facility] [place] [address] LINETTE SUE TROPONIN 3 [facility] QUANTITAT INC INC RPUA ECG 62634 LINETTE SUE ROUTINE 3 [facility] ECG INC INC W/LEAST 12 LDS TRCG ONLY W/O I&R URNLS DIP 65781 RUTKEMIE RUTKEMIE 3 JR AREN JR AREN STICK/TAB LET RGNT NON-AUTO W/O MICRSCP BLOOD 33981 LINETTE SUE COUNT 3 [facility] COMPLETE INC INC AUTO&[place] [address] LINETTE SUE TROPONIN 3 [facility] QUANTITAT INC INC RUPA CREATINE 46943 LINETTE LINETTE KINASE 3 [facility] [place] [address] LINETTE LINETTE LIPASE 3 [facility] INC INC URNLS DIP 47817 LINETTE SUE 3 [facility] STICK/TAB INC INC LET REAGENT AUTO MICROSCOP Y CREATINE 01569 LINETTE SUE KINASE MB 3 [facility] [place] [address] LINETTE SUE AMYLASE 3 [facility] INC INC ECG 58880 [place] ROUTINE 3 CHARLEY CHARLEY ECG W/LEAST 12 LDS I&R ONLY ECG 04735 LINETTE SUE ROUTINE 3 [facility] ECG INC INC W/LEAST 12 LDS TRCG ONLY W/[place] [address] LINETTE SUE INFUSION 3 [facility] THERAPY/P INC INC ROPHYLAXI S /DX 1ST TO 1 HR THERAPEUT 72212 LINETTE SUE IC 3 [facility] INJECTION INC [place] [address] ZULLY ZULLY ABDOMEN & 3 BUBBA BUBBA PELVIS W/O CONTRAST MATERIAL INJECTION J2405 LINETTE SUE 3 [facility] ONDANSETR INC INC ON HCL PER 1 MG COMPREHEN 14407 LINETTE SUE SIVE 3 [facility] METABOLIC INC INC PANEL 3D 29128 LINETTE SUE RENDERING 3 [facility] INC INC W/INTERP& POSTPROC DIFF WORK STATION COMPREHEN 47854 LINETTE SUE SIVE 3 [facility] METABOLIC INC INC PANEL LIPID 63820 LINETTE SUE PANEL 3 [facility] INC INC PROSTATE G0103 LINETTE SUE CANCER 3 [facility] SCREENING INC INC ; PSA TEST BLOOD 12084 LINETTE SUE COUNT 3 [facility] COMPLETE INC INC AUTO&AUTO DIFRNTL WBC ECG 31552 LINETTE CRMIHira ROUTINE 3 [facility] W/LEAST P 12 LDS I&R ONLY ECG 34757 [place] ROUTINE 3 CHARLEY CHARLEY ECG W/LEAST 12 LDS I&R ONLY CREATINE 80952 LINETTE SUE KINASE MB 3 [facility] FRACTION INC INC ONLY BLOOD 37713 LINETTE SUE COUNT 3 [facility] COMPLETE INC INC AUTO&[place] [address] LINETTE SUE AMYLASE 3 [place] [address] LINETTE SUE TROPONIN 3 [facility] QUANTITAT INC INC [place] URNLS DIP 28229 LINETTE SUE 3 [facility] STICK/TAB INC INC [place] [address] LINETTE SUE LIPASE 3 [facility] INC INC BLOOD 32111 LINETTE SUE OCCULT 3 [facility] PEROXIDAS INC INC E ACTV QUAL FECES 1-3 SPEC CREATINE 69359 LINETTE SUE KINASE 3 [facility] TOTAL INC INC RADIOLOGI 52301 LINETTE SUE C 3 [facility] EXAMINATI INC [place] [address] LINETTE SUE ABDOMEN & 3 [facility] PELVIS INC INC W/O CONTRAST MATERIAL IAADI 93809 LINETTE SUE INFFLUENZ 3 [facility] A A VIRUS INC INC IAADI 61734 LINETTE SUE INFLUENZA 3 [facility] B VIRUS INC INC ECG 04206 LINETTE SUE ROUTINE 3 [facility] ECG INC INC W/LEAST 12 LDS TRCG ONLY W/O I&R COMPREHEN 57621 LINETTE SUE SIVE 3 [facility] METABOLIC INC INC PANEL 3D 97428 LINETTE SUE RENDERING 3 [facility] INC INC W/INTERP& POSTPROC DIFF WORK STATION UROGRAPHY 73520 LEONEL ANDREA IV W/WO 2 MEDICAL BUBBA KUB W/WO IMAGING TOMOGRAPH ASS Y URETHROCY 88403 LINETTE SUE STOGRAPHY 2 [facility] INC INC RETROGRAD E RS&I CYSTO 79858 LINETTE SUE BLADDER 2 [facility] W/URETERA INC INC L CATHETERI ZATION ANES 32627 [facility] TRANSURET 2 ANESTH LOLY HRAL OF THE W/URETHRO BLUE CYSTOSCOP Y NOS CYSTOURET 26609 CALI LEIVA HROSCOPY 2 ART ART CREATININ 42063 [facility] E BLOOD 2 [place] [address] [facility] UREA 2 [facility] NITROGEN INC INC QUANTITAT RUPA URNLS DIP 91675 CALI LEIVA 2 ART ART STICK/TAB LET RGNT NON-[place] W/[place] [address] [facility] ABDOMEN & 2 [facility] PELVIS INC INC W/O CONTRST 1/> BODY RE LOCM Q9967 [facility] VERMAON [phone] [facility] MG/ML INC INC IODINE CONCENTRA TION PER ML BASIC 27120 [facility] METABOLIC 2 [facility] [place]EL [place] [address] LINET[facility] SUE TESTOSTER 2 [facility] ONE TOTAL INC INC PROSTATE [id number] [facility] SUE CANCER 2 [facility] SCREENING INC INC ; PSA TEST URNLS DIP 59748 CALI LEIVA 2 ART ART STICK/TAB LET RGNT NON-[place] [address] ZULLY ZULLY RETROPERI 2 BUBBA BUBBA TONEAL REAL TIME W/IMAGE COMPLETE URNLS DIP 04939 JAMA YUN 2 NAN NAN STICK/TAB LET RGNT NON-AUTO W/O MICRSCP HEMOGLOBI 37392 [facility]UE N 2 [facility] GLYCOSYLA INC INC SONG A1C LIPID 79959 [facility] PANEL 2 [facility] INC INC COMPREHEN 99671 [facility] SIVE 2 [facility] METABOLIC INC INC PANEL URNLS DIP 44764 JAMA YUN 2 NAN NAN STICK/TAB LET RGNT NON-AUTO W/O MICRSCP DETERMINA 06480 NICK ROMERO TION 2 [place] [facility] REFRACTIV E STATE OPHTHALMO 30059 NICK ROMERO SCPY 2 [place] [facility] EXTENDED RETINAL DRAWING I&R 1ST MYOCARDIA 53355 FALLUJI FALLUJI L SPECT 2 VENITA VENITA MULTIPLE STUDIES MYOCARDIA 09429 [facility]UE L SPECT 2 [facility] MULTIPLE INC INC STUDIES CV STRS 45696 [facility] TST 2 [facility] XERS&/OR INC INC RX CONT ECG TRCG ONLY CV STRS 59448 [facility] TST 2 XERS&/OR RX CONT ECG W/O I&R CV STRS 42311 LINETTE SUE TST 2 [facility] XERS&/OR [facility] RX CONT P P ECG I&R ONLY TECHNETIU A9502 LINETTE Barrientos TC-99M 2 [facility] TETROFOSM INC INC IN DX PER STUDY DOSE OBSERVATI 12344 [facility] ON CARE 2 CAMILLA CAMILLA DISCHARGE [facility] G0378 LINET[facility] SUE OBSERVATI 2 [facility] ON INC INC SERVICE PER HOUR CREATINE 46608 LIN[facility] SUE KINASE MB 2 [facility] [place] [address] LIN[facility] SUE TROPONIN 2 [facility] QUANTITAT INC INC RUPA CREATINE 37757 LINETTE VERMAON KINASE 2 [facility] TOTAL INC INC CREATINE 14264 LINETTE VERMAON KINASE 2 [facility] [place] [address] LIN[facility] SUE LIPASE 2 [place] [address] [facility] SUE TROPONIN 2 [facility] QUANTITAT INC INC RUPA BLOOD 63192 LIN[facility] SUE COUNT 2 [facility] COMPLETE INC INC AUTO&AUTO DIFRNTL WBC CREATINE 52576 LINETTE SUE KINASE MB 2 [facility] FRACTION INC INC ONLY ECG 14761 [facility] ROUTINE 2 III AREN III AREN ECG W/LEAST 12 LDS I&R ONLY HOSPITAL G0378 LINETTE [facility]ETTE OBSERVATI 2 [facility] ON INC INC SERVICE PER HOUR CT ORBIT [address] [place] ZULLY SELLA/POS 2 MEDICAL BUBBA T IMAGING FOSSA/EAR ASS W/O CONTRAST MATRL ECG 68626 LINETTE LINETTE ROUTINE 2 [facility] ECG INC INC W/LEAST 12 LDS TRCG ONLY W/O I&R PRESSURIZ 91964 LINETTE VERMAON ED/NONPRE 2 [facility] SSURIZED INC INC INHALATIO N TREATMENT RHYTHM 62300 LINETTE LINETTE ECG 1-3 2 [facility] LEADS INC INC TRACING ONLY W/O I&R INITIAL 79381 MCKEMIHira CRMIE OBSERVATI 2 JR AREN JR AREN ON CARE/DAY 30 MINUTES RADIOLOGI 82016 [facility]UE C 2 [facility] EXAMINATI INC [place] [address] LINETTE SUE HEAD/BRAI 2 [facility] N W/O INC INC CONTRAST MATERIAL BASIC 47211 LIN[facility] SUE METABOLIC 2 [facility] PANEL INC INC CALCIUM TOTAL COMPREHEN 33047 [facility] S[facility] SIVE 2 [facility] METABOLIC INC INC PANEL 3D 32423 [facility] SUE RENDERING 2 [facility] W/INTERP INC INC & POSTPROCE SS SUPERVISI ON [facility] 92235 EDGE DONNIE EDGE DONNIE MICROGRAP 2 HIC H/N/H/F/G 1ST STAGE 5 BLOCKS ADJT TIS 90355 ODALYS LB ODALYS LB TRNSFR/RE 2 ARRGMT E/N/E/L DFCT 10 SQ CM/< SUTR WND 53851 ODALYS LB ODALYS LB EYELID/MA 2 RGIN/TARS US/CONJUN C FULL THICK ANES 55474 [place] MAJORS G INTEG 2 ANESTHESI MUSC & A ASSOC L NRV HEAD NECK&POST ERIOR TRUNK HEMOGLOBI 86873 LINETTE SUE N 2 [facility] GLYCOSYLA INC INC SONG A1C BLOOD 68601 LINETTE SUE COUNT 2 [facility] COMPLETE INC INC AUTO&AUTO DIFRNTL WBC LIPID 66345 LINETTE SUE PANEL 2 [facility] INC INC COMPREHEN 10541 LINETTE SUE SIVE 2 [facility] METABOLIC INC INC PANEL 3D 76586 LINETTE SUE RENDERING 2 [facility] W/INTERP INC INC & POSTPROCE SS SUPERVISI ON BASIC 49508 LINETTE SUE METABOLIC 2 [facility] [place] [address] LINETTE SUE HEAD/BRAI 2 [facility] N W/O INC INC CONTRAST MATERIAL ECG 01529 LINETTE SUE ROUTINE 2 [facility] ECG INC INC W/LEAST 12 LDS TRCG ONLY W/O I&R RHYTHM 26015 LINETTE VERMAON ECG 1-3 2 [facility] LEADS INC INC TRACING ONLY W/O I&R BLOOD 83686 LINETTE SUE COUNT 2 [facility] COMPLETE INC INC AUTO&[place] [address] LINETTE SUE TROPONIN 2 [facility] QUANTITAT INC INC RUPA URNLS DIP 64543 LINETTE SUE 2 [facility] STICK/TAB INC INC LET REAGENT AUTO MICROSCOP Y CREATINE 92413 LINETTE SUE KINASE 2 [facility] TOTAL INC INC RADIOLOGI 69814 ZULLY ZULLY C EXAM 2 BUBBA BUBBA CHEST 2 VIEWS FRONTAL&[place] [address] ZULLY ZULLY MAXILLOFA 2 BUBBA BUBBA CIAL W/O CONTRAST MATERIAL ECG 71923 BETH CAMPOS ROUTINE 2 III AREN III AREN ECG W/LEAST 12 LDS I&R ONLY CREATINE 54220 LINETTE SUE KINASE MB 2 [facility] FRACTION INC INC ONLY CREATINE 31775 LINETTE SUE KINASE MB 1 [facility] FRACTION INC INC ONLY ECG 10201 BARAHONA MICHELLE BARAHONA MICHELLE ROUTINE 1 ECG W/LEAST 12 LDS I&R ONLY CREATINE 31898 LINETTE SUE KINASE 1 [facility] [place] [address] LINETTE SUE TROPONIN 1 [facility] QUANTITAT INC INC RUPA BLOOD 05856 LINETTE SUE COUNT 1 [facility] COMPLETE INC INC AUTO&AUTO DIFRNTL WBC PRESSURIZ 83472 LINETTE VERMAON ED/NONPRE 1 [facility] HOSP SSURIZED INC INC INHALATIO N TREATMENT RHYTHM 45571 LINETTE SUE ECG 1-3 1 [facility] HOSP LEADS INC INC TRACING ONLY W/O I&R ECG 04711 LINETTE SUE ROUTINE 1 [facility] ECG INC INC W/LEAST 12 LDS TRCG ONLY W/O I&R RADIOLOGI 37677 [place] ZULLY C 1 MEDICAL BUBBA EXAMINATI IMAGING ON CHEST ASS [place] FRONTAL COMPREHEN 26567 LINETTE SUE SIVE 1 [facility] HOSP METABOLIC INC INC PANEL EXC 31753 ODALYS MORROW LB LESION 1 EYELID W/O CLSR/W/SI MPLE DIR CLOSURE INCISIONA 34546 ODALYSDERRICK ASHER ODALYS LB L BIOPSY 1 EYELID SKIN & LID MARGIN THERAPEUT 98878 LICKING LICKING IC 1 [facility] PROPHYLAC INTERNAL INTERNAL TIC/DX MED MED INJECTION SUBQ/IM XTRNL 84719 ODALYS MORROW LB OCULAR 1 PHOTOG W/I&R DOCMT MEDICAL PROGRE OPHTH 19102 ISHA [place] [facility] MEDICAL 1 VISION XM&EVAL COMPRHNSV ESTAB PT 1/> [place] [address] NEW LENA ABDOMINAL 1 [place] [facility] TIME PSC W/[place] [address] NEW LENA RETROPERI 1 [facility] TONEAL CLINIC REAL TIME PSC W/IMAGE LIMITED LIPID 08505 COMBINED COMBINED PANEL 1 PHYSICIAN PHYSICIAN S LA S LA HEMOGLOBI 80718 COMBINED COMBINED N 1 PHYSICIAN PHYSICIAN GLYCOSYLA S LA S LA SONG A1C GENERAL 24932 [facility] 1 PHYSICIAN PHYSICIAN PANEL S LA S LA 3D 10894 LEONEL ANDREA RENDERING 1 MEDICAL BUBBA W/INTERP IMAGING & ASS POSTPROCE SS SUPERVISI ON MRI 31222 LEONEL ANDREA SPINAL 1 MEDICAL BUBBA CANAL IMAGING CERVICAL ASS W/O CONTRAST MATRL MRI BRAIN 73779 LEONEL ANDREA BRAIN 1 MEDICAL BUBBA STEM W/[place] [address] LEONEL ANDREA HEAD/BRAI 1 MEDICAL BUBBA N W/O IMAGING CONTRAST ASS MATERIAL ECG 80671 LINETTE SUE ROUTINE 1 [facility] ECG INC INC W/LEAST 12 LDS TRCG ONLY W/O I&R ECG 71720 VOLODYMYR CAMPOS ROUTINE 1 EMERGENCY III AREN ECG SERVICES W/LEAST 12 LDS I&R ONLY RADIOLOGI 10782 LEONEL ANDREA C EXAM 1 MEDICAL BUBBA CHEST 2 IMAGING VIEWS ASS FRONTAL&L ATERAL CREATINE 21631 LINETTE SUE KINASE MB 1 [facility] FRACTION INC INC ONLY CREATINE 21963 LINETTE SUE KINASE 1 [facility] TOTAL INC INC BLOOD 81980 LINETTE SUE COUNT 1 [facility] COMPLETE INC INC AUTO&[place] [address] LINETTE SUE TROPONIN 1 [facility] QUANTITAT INC INC RUPA 3D 47109 LEONEL MILLERUTCHER RENDERING 1 MEDICAL BUBBA W/INTERP IMAGING & ASS POSTPROCE SS SUPERVISI ON BASIC 22428 LINETTE SUE METABOLIC 1 [facility] PANEL INC INC CALCIUM TOTAL BASIC 52931 LINETTE SUE METABOLIC 1 [facility] PANEL INC INC CALCIUM TOTAL BLOOD 70815 LINETTE SUE COUNT 1 [facility] COMPLETE INC INC AUTO&AUTO DIFRNTL WBC LIPID 67358 LINETTE SUE PANEL 1 [facility] INC INC ECHO 30979 LINETTE SUE TTHRC R-T 1 [facility] 2D INC INC W/WOM-MOD E COMPL SPEC&COLR D ESOPHAGOG 60144 C CELESTINO ADAME ASTRODUOD 1 DEEP ARREOLA MD [facility] TRANSORAL DIAGNOSTI C OTHER 4513 LINETTE LINETTE ENDOSCOPY 1 [facility] [place] [address] LINETTE SUE INFUSION 1 [facility] THERAPY INC INC PROPHYLAX IS/DX EA HOUR SWALLOWIN 07190 [facility] MILLERZULLY G FUNCJ 1 MEDICAL BUBBA W/CINERAD IMAGING IOGRAPY/V ASS IDRADIOG ECG 63960 LINETTE ANDERSEN ROUTINE 1 [facility] W/LEAST P 12 LDS I&[place] [address] LINETTE SUE INFUSION 1 [facility] THERAPY/P INC INC ROPHYLAXI S /DX [address] [place] [address] [place] [address] [facility] ZULLY ABDOMEN & 1 MEDICAL BUBBA PELVIS IMAGING W/O ASS CONTRAST MATERIAL RADIOLOGI 50818 [place] ZULLY C 1 MEDICAL BUBBA EXAMINATI IMAGING ON CHEST ASS SING[place] FRONTAL ALS A0398 DAVID HERNANDEZ ROUTINE 1 AMBULANCE AMBULANCE DISPOSABL SERVICE SERVICE E SUPPLIES ECG 25745 LINETTE SUE ROUTINE 1 [facility] ECG INC INC W/LEAST 12 LDS TRCG ONLY W/O I&[place] [address] LEONEL MILLERUTCHER HEAD/BRAI 1 MEDICAL BUBBA N W/O IMAGING CONTRAST ASS MATERIAL BLOOD 24847 LINETTE SUE COUNT 1 [facility] COMPLETE INC INC AUTO&[place] [address] LINETTE SUE TROPONIN 1 [facility] QUANTITAT INC INC RUPA CREATINE 40197 LINETTE SUE KINASE 1 [facility] TOTAL INC INC URNLS DIP 72523 LINETTE SUE 1 [facility] STICK/TAB INC INC LET REAGENT AUTO MICROSCOP Y CREATINE 46340 LINETTE SUE KINASE MB 1 [facility] FRACTION INC INC ONLY 3D 51599 [facility] ZULLY RENDERING 1 MEDICAL BUBBA W/INTERP IMAGING & ASS POSTPROCE SS SUPERVISI ON GROUND A0425 DAVID HERNANDEZ MILEAGE 1 AMB[facility]ANCE AMBULANCE PER SERVICE SERVICE STATUTE MILE AMB A0427 DAVID HERNANDEZ SERVICE 1 AMBULANCE AMBULANCE ALS SERVICE SERVICE EMERGENCY TRANSPORT LEVEL 1 AMB A0422 DAVID HERNANDEZ OXYGEN&O2 1 AMBULANCE AMBULANCE SUPPLIES SERVICE SERVICE LIFE SUSTAININ G SITUATION BASIC 15086 LINETTE SUE METABOLIC 1 [facility] HOSP PANEL INC INC CALCIUM TOTAL 3D 92502 LINETTE SUE RENDERING 1 [facility]OS[facility] INC INC W/INTERP& POSTPROC DIFF WORK STATION COMPREHEN 40696 LINETTE SUE SIVE 1 [facility]OS[place] [address] LINETTE SUE THYROID 1 [facility] HOSP STIMULATI INC INC NG HORMONE TSH SYPHILIS 79736 LINETTE SUE TEST 1 [facility] NON-TREPO INC INC NEMAL ANTIBODY QUAL BLOOD 51958 LINETTE SUE COUNT 1 [facility] COMPLETE INC INC AUTO&AUTO DIFRNTL WBC SEDIMENTA 66959 LINETTE SUE TIKING RATE 1 [facility] RBC INC INC NON-AUTOM ATED CUL BACT 00260 LINETTE SUE XCPT 1 [facility] URINE INC INC BLOOD/STO OL AEROBIC ISOL CUL BACT 33748 LINETTE SUE AEROBIC 1 [facility] ADDL INC INC METHS DEFINITIV E EA ISOL SUSCEPTIB 97115 LINETTE SUE LTY STDY 1 [facility] HOSP ANTIMICRB INC INC IAL MICRO/[place] [address] [facility] ZULLY MAXILLOFA 0 MEDICAL BUBBA CIAL W/[place] [address] LEONEL ZULLY HEAD/BRAI 0 MEDICAL BUBBA N W/O IMAGING CONTRAST ASS MATERIAL 3D 51826 LINETTE SUE RENDERING 0 [facility] HOSP INC INC W/INTERP& POSTPROC DIFF WORK STATION INITIAL 08239 SAM VARGAS INPATIENT 0 JAROD JAROD CONSULT NEW/ESTAB PT 55 MIN LARYNGOSC 68511 SAM VARGAS OPY 0 JAROD JAROD FLEXIBLE DIAGNOSTI C MYOCARDIA 61020 [facility] FALLUJI L SPECT 0 PHYSICIAN VENITA DONALDSON S GROUP STUDIES RADIOLOGI 04748 LEONEL ANDREA C 0 MEDICAL BUBBA EXAMINATI IMAGING [place] [address] LEONEL ANDREA ANGIOGRAP 0 MEDICAL BUBBA HY CHEST IMAGING W/CONTRAS ASS T/NONCONT RAST AMB A0427 [facility] SERVICE 0 AMBULANCE AMBULANCE ALS SERVICE SERVICE EMERGENCY TRANSPORT LEVEL 1 AMB A0422 DAVID HERNANDEZ OXYGEN&O2 0 AMBULANCE AMBULANCE SUPPLIES SERVICE SERVICE LIFE SUSTAININ G SITUATION GROUND A0425 DAVID [facility] MILEAGE 0 AMBULANCE AMBULANCE PER SERVICE SERVICE STATUTE MILE 03164 [facility] 0 [facility] REAL TIME PSC W/IMAGE LIMITED [facility] G0378 LINETTE SUE OBSERVATI 0 [facility] ON INC INC SERVICE PER HOUR BLOOD 69992 LINETTE SUE COUNT 0 [facility] COMPLETE INC INC AUTO&AUTO DIFRNTL WBC BASIC 91314 LINETTE SUE METABOLIC 0 [facility] PANEL INC INC CALCIUM TOTAL 3D 55153 LEONEL ZULLY, RENDERING 0 MEDICAL OLESYA IMAGING W/INTERP& ASSOCIATE POSTPROC S DIFF WORK STATION CRITICAL 32766 [facility] 0 EMERGENCY III, ILL/INJUR SERVICES MCKAYLA ED PATIENT ASSOCIATE INIT S 30-74 MIN 3D 66499 LINETTE SUE RENDERING 0 [facility] W/INTERP INC INC & POSTPROCE SS SUPERVISI ON CT PELVIS 36828 LEONEL ZULLY, W/O 0 MEDICAL OLESYA CONTRAST IMAGING MATERIAL ASSOCIATE S RADEX ABD 14974 LEONEL ZULLY, COMPL 0 MEDICAL OLESYA AQT ABD IMAGING W/S/E/D ASSOCIATE VIEWS 1 S VIEW CH COMPREHEN 33011 LINETTE SUE SIVE 0 [facility] METABOLIC INC INC PANEL LAPAROSCO 4701 LINETTE SUE PIC 0 [facility] APPENDECT INC INC RAULITO BLOOD 99981 LINETTE LINETTE COUNT 0 [facility] COMPLETE INC INC AUTO&AUTO DIFRNTL WBC ANESTHESI 84229 [facility] CHUY, A 0 ANESTH LALO A [facility] [place] [address] LINETTE SUE AMYLASE 0 [place] [address] LINETTE LINETTE TROPONIN 0 [facility] QUANTITAT INC INC RUPA URNLS DIP 59728 LINETTE SUE 0 [facility] STICK/TAB INC INC [place] [address] LINETTE LINETTE LIPASE 0 [facility] INC INC CREATINE 83220 LINETTE LINETTE KINASE 0 [facility] TOTAL INC INC HOSP[facility] G0378 LINETTE LINETTE OBSERVATI 0 [facility] ON INC INC SERVICE PER HOUR LEVEL III 68421 PATHOLOGY PATHOLOGY SURG 0 & & PATHOLOGY CYTOLOGY CYTOLOGY LAB LAB GROSS&CHARLEY ROSCOPIC EXAM CREATINE 61907 LINETTE LINETTE KINASE MB 0 [facility] [place] [address] LINETTE VERMAON INFUSION 0 [facility] THER INC INC PROPH AD[place] [address] [place] [address] LEONEL MILLERUTCHER, HEAD/BRAI 0 MEDICAL OLESYA N W/O IMAGING CONTRAST ASSOCIATE MATERIAL S LAPAROSCO 09340 [facility] 0 , , APPENDECT ADI F ADI F RAULITO ECG 28096 LINETTE SUE ROUTINE 0 [facility] ECG INC INC W/LEAST 12 LDS TRCG ONLY W/O I&[place] [address] LEONEL ANDREA, ABDOMEN 0 MEDICAL OLESYA W/O IMAGING CONTRAST ASSOCIATE MATERIAL S IAADI 75727 LINETTE SUE INFFLUENZ 0 [facility] A A VIRUS INC INC RHYTHM 13348 LINETTE SUE ECG 1-3 0 [facility] LEADS INC INC TRACING ONLY W/O I&R IAADI 53471 LINETTE SUE INFLUENZA 0 [facility] B VIRUS INC INC ECG 05783 LINETTE NAN, ROUTINE [facility] W/LEAST PROF SERV 12 LDS [place] [address] LINETTE SUE INFUSION 0 [facility] THERAPY/P INC INC ROPHYLAXI S /DX 1ST TO 1 HR COMPREHEN 76460 LINETTE SUE SIVE 0 [facility] METABOLIC INC INC PANEL LIPID 82511 LINETTE SUE PANEL 0 [place] [address] LINETTE SUE THYROID 0 [facility] STIMULATI INC INC NG HORMONE TSH BLOOD 89493 LINETTE SUE COUNT 0 [facility] COMPLETE INC INC AUTO&[place] [address] PATHOLOGY PATHOLOGY SURG 9 & & PATHOLOGY CYTOLOGY CYTOLOGY LAB LAB GROSS&[place] [address] LINETTE SUE INFUSION 9 [facility] THERAPY/P INC INC ROPHYLAXI S /DX 1ST TO 1 HR SPECIAL 51774 PATHOLOGY PATHOLOGY STAIN 9 & & GROUP 1 CYTOLOGY CYTOLOGY MICROORGA LAB LAB [facility] I&[place] EGD 55611 GAIL SANCHEZ, TRANSORAL 9 MEDICAL ALEXIS BIOPSY SERV SINGLE/MU FOUNDATIO LTIPLE EGD 00283 GAIL SANCHEZ, INSERT 9 MEDICAL ALEXIS GUIDE SERV WIRE FOUNDATIO DILATOR PASSAGE ESOPHAGUS ESOPHAGOG 4516 LINETTE SUE ASTRODUOD 9 [facility] ENOSCOPY INC [place] E[place] 34519 LINETTE SUE BALLOON 9 [facility] DILATION INC INC ESOPHAGUS <30 [place] [address] LINETTE SUE INFUSION 9 [facility] THERAPY INC INC PROPHYLAX IS/DX EA HOUR DILATION 4292 LINETTE SUE OF 9 [facility] ESOPHAGUS INC INC HEPATBL 39715 UMBERTO LI SYS 9 MEDICAL OLESYA [place] [address] LINETTE SUE ABDOMINAL 9 [facility] REAL INC [place] TIME W/[place] [address] BISHNU HERNANDEZRA, RETROPERI 9 [facility] A REAL TIME PSC W/IMAGE LIMITED LIPID 55194 LINETTE SUE PANEL 9 [place] [address] LEONEL ZULLY, HEAD/BRAI 9 MEDICAL OLESYA N W/O IMAGING CONTRAST ASSOCIATE MATERIAL S RADIOLOGI 57558 LEONEL Marbella ANDREA 9 MEDICAL OLESYA EXAMINATI IMAGING ON CHEST ASSOCIATE SINGLE S [place]IEW FRONTAL COMPREHEN 70171 LINETTE SUE SIVE 9 [facility] [place] [address] LEONEL ZULLY, ANGIOGRAP 9 MEDICAL OLESYA HY CHEST IMAGING W/CONTRAS ASSOCIATE T/NONCONT S RAST ECG 04553 LINETTE SUE ROUTINE 9 [facility] ECG INC INC W/LEAST 12 LDS TRCG ONLY W/O I&R CREATINE 06375 LINETTE SUE KINASE MB 9 [facility] FRACTION INC INC ONLY ECG 65461 LINETTE [place]EN[place], ROUTINE 9 [facility] ECG HOSPITAL W/LEAST PROF SERV 12 LDS I&[place] [address] LEONEL ZULLY, ANGIOGRAP 9 MEDICAL OLESYA HY IMAGING ABDOMEN ASSOCIATE W/CONTRAS S T/NONCONT RAST BLOOD 95902 LINETTE SUE COUNT 9 [facility] COMPLETE INC INC AUTO&AUTO DIFRNTL WBC CREATINE 37536 LINETTE SUE KINASE 9 [facility] [place] [address] LINETTE SUE TROPONIN 9 [facility] QUANTITAT INC INC RUPA BASIC 26722 LINETTE SUE METABOLIC 9 [facility] PANEL INC INC CALCIUM TOTAL 3D 29990 LINETTE SUE RENDERING 9 [facility] W/INTERP INC INC & POSTPROCE SS SUPERVISI ON DUPLEX 44254 NESSA LAWSON 9 MEDICAL CHAD P EXTRACRAN IMAGING IAL ART ASSOCIATE COMPL BI S STUDY MRI BRAIN 44783 OLESYA C ZULLY, BRAIN 8 ZULLY OLESYA STEM W/O W/CONTRAS T MATERIAL LIPID 08523 LINETTE SUE PANEL 8 [facility] INC INC COMPREHEN 81337 LINETTE SUE SIVE 8 [facility] METABOLIC INC INC PANEL SPECIAL 69242 [facility] STAIN 8 CLINIC CLINIC GROUP 1 LABORATOR LABORATOR MICROORGA Y Y NISMS I&[place] [address] [facility] SURG 8 CLINIC CLINIC PATHOLOGY LABORATOR LABORATOR Y Y GROSS&[place] [address] [facility], ABDOMINAL 8 [place] LISBETH Aguilar REAL CLINIC [place] PSC W/[place] [address] [facility], RETROPERI 8 [place] LISBETH [facility] TONEAL CLINIC REAL TIME PSC W/IMAGE LIMITED ANTIBODY 13991 [facility] HELICOBAC 8 CLINIC CLINIC [address] LABORATOR LABORATOR PYLORI Y Y COLLECTIO 09840 [facility] N VENOUS 8 CLINIC CLINIC BLOOD LABORATOR LABORATOR VENIPUNCT Y Y URE CREATINE 11718 LINETTE SUE KINASE MB 8 [facility] [place] [address] RAMSES LAWSON 8 [facility] [place] HY IMAGING ABDOMEN ASSOCIATE W/CONTRAS S T/NONCONT RAST ECG 91364 FRANCESCA VALIENTE 8 [facility] HOSPITAL W/LEAST PROF SERV 12 LDS I&R ONLY CREATINE 02577 LINETTE SUE KINASE 8 [facility] [place] [address] LINETTE SUE TROPONIN 8 [facility] QUANTITAT INC INC RUPA BLOOD 69211 LINETTE SUE COUNT 8 [facility]OS[facility] COMPLETE INC INC AUTO&AUTO DIFRNTL WBC THROMBOPL 58499 LINETTE SUE ASTIN 8 [facility] TIME INC INC PARTIAL PLASMA/WH OLE BLOOD RADIOLOGI 87135 Marbella LAWSON 8 MEDICAL CHAD P EXAMINATI IMAGING ON CHEST ASSOCIATE SINGLE S [place]IEW FRONTAL ECG 69419 LINETTE SUE ROUTINE 8 [facility] ECG INC INC W/LEAST 12 LDS TRCG ONLY W/O I&R PROTHROMB 20226 LINETTE SUE IN TIME 8 [facility] INC INC BASIC 19475 LINETTE SUE METABOLIC 8 [facility] [place] [address] LINETTE SUE PARATHORM 8 [facility] [place] [address] LINETTE SUE PHOSPHORU 8 [facility] S INC INC INORGANIC CALCIUM 85801 LINETTE SUE IONIZED 8 [facility] INC INC CALCIUM 50570 LINETTE SUE TOTAL 8 [facility] INC INC RADEX 94635 [place] ZULLY, SPINE 8 MEDICAL OLESYA LUMBOSACR IMAGING AL ASSOCIATE MINIMUM 4 S VIEWS OPHTH 77276 [place], MEDICAL 8 MICHAEL A MICHAEL A XM&EVAL COMPRE NEW PT 1/> VST DUPLEX 52021 [facility], SCAN 8 MEDICAL OLESYA EXTRACRAN IMAGING IAL [place] [address] [place] ZULLY, CERVICAL 8 MEDICAL OLESYA SPINE W/[place] [address] [place] ZULLY, HEAD/BRAI 8 MEDICAL OLESYA N W/O IMAGING CONTRAST ASSOCIATE MATERIAL S RADIOLOGI 50065 [place] ZULLY C 8 MEDICAL OLESYA EXAMINATI IMAGING ON CHEST ASSOCIATE SINGLE S VIEW FRONTAL 3D 01108 [facility], RENDERING 8 MEDICAL OLESYA IMAGING W/INTERP& ASSOCIATE POSTPROC S DIFF WORK STATION AMB A0427 [facility] SERVICE 8 AMBULANCE AMBULANCE ALS SERVICE SERVICE EMERGENCY TRANSPORT LEVEL 1 AMB A0422 [facility] OXYGEN&O2 8 AMBULANCE AMBULANCE SUPPLIES SERVICE SERVICE LIFE SUSTAININ G SITUATION 3D 27048 [place] ZULLY, RENDERING 8 MEDICAL OLESYA W/INTERP IMAGING & ASSOCIATE POSTPROCE S SS SUPERVISI ON GROUND A0425 [facility] MILEAGE 8 AMBULANCE AMBULANCE PER SERVICE SERVICE STATUTE MILE THYROID 32804 [place] LUDY, SAVANA 8 MEDICAL CHAD P W/UPTAKE IMAGING SINGLE ASSOCIATE DETERMINA S TION IODINE A9516 LINETTE SUE I-123 8 [facility] SODIUM INC INC IODIDE DX PER 100 UCI TO 999 THYROID 57292 LINETTE SUE UPTAKE 8 [facility] SINGLE INC INC DETERMINA TION COMPREHEN 96761 LINETTE SUE SIVE 8 [facility] METABOLIC INC INC PANEL ECG 13784 LINETTE SUE ROUTINE 8 [facility] ECG INC INC W/LEAST 12 LDS TRCG ONLY W/O I&R CREATINE 27801 LINETTE SUE KINASE MB 8 [facility] FRACTION INC INC ONLY ECG 83419 LINETTE MCCLAIN, ROUTINE 8 [facility] ECG HOSPITAL W/LEAST PROF SERV 12 LDS I&R ONLY BLOOD 34663 LINETTE SUE COUNT 8 [facility] COMPLETE INC INC AUTO&[place] [address] LINETTE SUE TROPONIN 8 [facility] QUANTITAT INC INC RUPA CREATINE 20235 LINETTE SUE KINASE 8 [facility] TOTAL INC INC URNLS DIP 83844 LINETTE SUE 8 [facility] STICK/TAB INC INC LET REAGENT AUTO MICROSCOP Y URNLS DIP 88190 [facility] 8 CLINIC CLINIC STICK/TAB LABORATOR LABORATOR LET Y Y REAGENT AUTO MICROSCOP Y COLLECTIO 02217 [facility] N VENOUS 8 CLINIC CLINIC BLOOD LABORATOR LABORATOR VENIPUNCT Y Y URE RENAL 03543 [facility] FUNCTION 8 CLINIC CLINIC PANEL LABORATOR LABORATOR Y Y ECG 46239 LINETTE SUE ROUTINE 8 [facility] ECG INC INC W/LEAST 12 LDS TRCG ONLY W/O I&R CREATINE 53576 LINETTE SUE KINASE MB 8 [facility] FRACTION INC INC ONLY ECG 94183 LINETTE [place], ROUTINE [address] [facility] HOSPITAL W/LEAST PROF SERV 12 LDS I&R ONLY HOSPITAL G0378 LINETTE SUE OBSERVATI 8 [facility] ON INC INC SERVICE PER HOUR CREATINE 65429 LINETTE SUE KINASE 8 [facility] [place] [place] [address] LINETTE SUE TROPONIN 8 [facility] QUANTITAT INC INC RUPA OBSERVATI 22550 NANDINI GRIFFIN ON CARE 8 POMEROY NETTIE DISCHARGE INTERNAL MED MANAGEMEN T BASIC 32493 LINETTE SUE METABOLIC 8 [facility] [place] [address] LINETTE SUE TROPONIN 8 [facility] QUANTITAT INC INC RUPA BLOOD 41573 [facility] SUE COUNT 8 [facility] COMPLETE INC INC AUTO&AUTO DIFRNTL WBC CREATINE 48239 [facility] SUE KINASE 8 [facility] TOTAL INC INC ECG 10179 [place], ROUTINE [address] [facility] W/LEAST PROF SERV 12 LDS I&R ONLY CREATINE 77184 LINETTE SUE KINASE MB 8 [facility] FRACTION INC INC ONLY ECG 95249 [facility] SUE ROUTINE 8 [facility] ECG INC INC W/LEAST 12 LDS TRCG ONLY W/O I&R PROTHROMB 84459 LINETTE SUE IN TIME 8 [facility] INC INC RHYTHM 44319 LINETTE SUE ECG 1-3 8 [facility] LEADS INC INC TRACING ONLY W/O I&R INITIAL 60708 LISSY NICK 8 [facility] ON INTERNAL CARE/DAY MED 30 MINUTES RADIOLOGI 75004 [facility] 8 MEDICAL CHAD P EXAMINATI IMAGING ON CHEST ASSOCIATE SINGLE S VIEW FRONTAL CT THORAX 99869 [facility] LOPEZ MEDICAL CHAD P W/[place] [address] [place] LUDY, ABDOMEN 8 MEDICAL CHAD P W/CONTRAS IMAGING T ASSOCIATE MATERIAL S RADEX 66250 [place] ZULLY, SPINE 8 MEDICAL OLESYA CERVICAL IMAGING 6 OR MORE ASSOCIATE VIEWS S CT PELVIS 54577 Dawn LAWSON MEDICAL CHAD P W/CONTRAS IMAGING T ASSOCIATE MATERIAL S US SOFT 36733 [facility] STROUDDevin [place] TISSUE 8 MEDICAL CHAD P HEAD & IMAGING NECK REAL ASSOCIATE TIME S IMGE DOCM 3D 42180 CRESCENCIO LAWSON 8 MEDICAL CHAD P IMAGING W/INTERP& ASSOCIATE POSTPROC S DIFF WORK STATION COMPREHEN 95036 LINETTE SUE SIVE 8 [facility] [place] [address] [facility] SUE THYROXINE 8 [facility] TOTAL INC INC LIPID 57345 LINETTE SUE PANEL 8 [place] [address] LIN[facility] SUE FOLIC 8 [facility] [place] [address] [place] SUE THYROID 8 [facility] STIMULATI INC INC NG HORMONE TSH CYANOCOBA 49790 LINETTE SUE JUAN 8 [facility] VITAMIN INC INC B-12 HEMOGLOBI 71124 LINET[facility] SUE N 8 [facility] GLYCOSYLA INC INC SONG A1C BLOOD 17513 LINET[facility] SUE COUNT 8 [facility] COMPLETE INC INC AUTO&AUTO DIFRNTL WBC BLOOD 33456 LINET[facility] SUE COUNT 8 [facility] COMPLETE INC INC AUTO&[place] [address] LIN[place] SUE TROPONIN 8 [facility] QUANTITAT INC INC RUPA CREATINE 95985 LINETTE SUE KINASE 8 [facility] TOTAL INC INC CREATINE 13690 LINETTE SUE KINASE MB 8 [facility] FRACTION INC INC ONLY HOSPITAL [id number] LIN[facility] SUE OBSERVATI 8 [facility] ON INC INC SERVICE PER HOUR ECG 99648 FRNACESCA VALIENTE 8 [facility] ECG HOSPITAL W/LEAST PROF SERV 12 LDS I&R ONLY LIPID 39780 LINETTE SUE PANEL 8 [facility] INC INC GROUND A0425 [facility] AM[facility] PER [place]ICE [place] [address] SUDHIR SOLANO 8 HEART & AMADOR Y ZATION VASCULAR [place] [address] LEONEL SUMMERS C-CATHJ 8 HEART & AMADOR Y F/SLCTV C VASCULAR ANGRPH ASSOC I SI&R 26606 LEONEL SUMMERS, F/NJX PX 8 HEART & AMADOR Y DURING VASCULAR C-CATHJ ASSOC VENTR&/AT R ANGRPH I SI&R 02925 LEONEL SUMMERS, F/NJX PX 8 HEART & AMADOR Y DURING VASCULAR C-CATHJ ASSOC PULM&/OR SELECT ECG 14813 LINETTE SUE ROUTINE 8 [facility] INC INC W/LEAST 12 LDS TRCG ONLY W/O I&R NONINVASI 03255 LINETTE SUE VE 8 [facility] EAR/PULSE INC INC OXIMETRY SINGLE DETER INJECTION 61100 LEONEL SUMMERS, CARDIAC 8 HEART & AMADOR Y CATHJ L VASCULAR VENTR/L ASSOC ATR ANGIOGRAP H BASIC 99416 LINETTE SUE METABOLIC 8 [facility] PANEL INC INC CALCIUM TOTAL INITIAL 49387 LEONEL SUMMERS, INPATIENT 8 HEART & AMADOR Y CONSULT VASCULAR NEW/ESTAB ASSOC PT 80 MIN NONINVASI [id number] [facility]UE VE 8 [facility] EAR/PULSE INC INC OXIMETRY SINGLE DETER ECG 94119 [facility] SUE ROUTINE 8 [facility] ECG INC INC W/LEAST 12 LDS TRCG ONLY W/O I&R RHYTHM 98989 LINETTE SUE ECG 1-3 8 [facility] LEADS INC INC TRACING ONLY W/O I&R PROTHROMB 75536 [facility]ET[facility] SUE IN TIME 8 [facility] INC INC COMPREHEN 81906 LIN[facility] SUE SIVE 8 [facility] METABOLIC INC INC PANEL THROMBOPL 35075 [facility] SUE ASTIN 8 [facility] HOS[facility] TIME INC INC PARTIAL PLASMA/WH OLE BLOOD RADIOLOGI 12110 LINETTE SUE C 8 [facility] HOSP EXAMINATI INC INC ON CHEST SINGLE VIEW FRONTAL ECG 28333 LINETTE MCCLAIN, ROUTINE 8 [facility] ECG HOSPITAL W/LEAST PROF SERV 12 LDS I&R ONLY HOSPITAL [id number] [facility] SUE OBSERVATI 8 [facility] HOSP ON INC INC SERVICE PER HOUR CREATINE 54858 [facility] SUE KINASE MB 8 [facility] FRACTION INC INC ONLY CREATINE 64378 [facility] SUE KINASE 8 [facility] [place] [address] [facility] SUE TROPONIN 8 [facility] QUANTITAT INC INC RUPA NATRIURET 60197 [facility]UE IC 8 [facility] PEPTIDE INC INC BLOOD 70378 [facility] SUE COUNT 8 [facility] COMPLETE INC INC AUTO&AUTO DIFRNTL WBC MRI 04304 OLESYA C ZULLY, SPINAL 8 ZULLY OLESYA CANAL CERVICAL W/O CONTRAST MATRL MRI 08370 OLESYA C ZULLY, SPINAL 8 ZULLY OLESYA CANAL LUMBAR W/O CONTRAST MATERIAL SERVICES 06937 Brigida CALVILLO MD C OFFICE PSC OTH/THN REG SCHED HOURS Encounters Encounter Start End Date Code Location Performer Type Date OFFICE 64843 [facility] Mya OUTPATIEN 7 7 PHYSICIAN T VISIT S GROUP 25 MINUTES OFFICE 34848 [facility] FRANCOIS OUTPATIEN 7 7 PHYSICIAN T VISIT S GROUP 15 MINUTES HOSPITAL [facility] - 7 7 [facility] OUTPATIEN INC T OFFICE 04299 [facility] FRANCOIS OUTPATIEN 7 7 PHYSICIAN T NEW 20 S GROUP MINUTES OFFICE 46188 LAVINIA TOWNSEND OUTPATIEN 7 7 Kate TOWNSEND MD,[facility] 25 MINUTES HOSPITAL [facility] - 7 7 [facility] OUTPATIEN INC [facility] - 7 7 [facility] OUTPATIEN INC T OFFICE 41611 [facility] CHAYO OUTPATIEN 7 7 PHYSICIAN T VISIT S GROUP 25 MINUTES OFFICE 99730 GAIL MONROE OUTPATIEN 7 7 MEDICAL T VISIT SERV 15 FOUNDATIO MINUTES N OFFICE 98417 OUTPATIEN 7 7 [facility] T VISIT 5 E MINUTES [facility]OSPITALS H[facility]PITAL UK - 7 7 [facility]ALTH[facility] OUTPATIEN E T HOSPITALS EMERGENCY 34033 DEMETRIS BARTH DEPT 7 7 PHYSICIAN VISIT S, [facility] HIGH SEVERITY& THREAT [facility] LINETTE - 7 7 [facility] OUTPATIEN INC [facility] LINETTE - 7 7 [facility] OUTPATIEN INC T OFFICE 21942 KATE KATE OUTPATIEN 7 7 Kate TOWNSEND MD,[facility] 25 MINUTES [facility] LINETTE - 7 7 [facility] OUTPATIEN INC [facility] LINETTE - 7 7 [facility] OUTPATIEN INC T OFFICE 91450 [facility] [place] OUTPATIEN 7 7 PHYSICIAN T VISIT S GROUP 40 MINUTES [facility] LINETTE - 7 7 [facility] OUTPATIEN INC T OFFICE 87367 [facility] [place] OUTPATIEN 7 7 PHYSICIAN T VISIT S GROUP 40 MINUTES HOSPITAL [facility] - 7 7 [facility] OUTPATIEN INC T OFFICE 32255 KATE KATE OUTPATIEN 7 7 Kate TOWNSEND MD,[facility] 15 MINUTES HOSPITAL [facility] - 7 7 [facility] OUTPATIEN INC T OFFICE 37979 [facility] [place] OUTPATIEN 7 7 PHYSICIAN T VISIT S GROUP 40 MINUTES HOSPITAL [facility] - 7 7 [facility] OUTPATIEN INC T OFFICE 92646 [facility] [place] OUTPATIEN 7 7 PHYSICIAN T VISIT S GROUP 15 MINUTES OFFICE 98697 [facility] CB OUTPATIEN 7 7 PHYSICIAN T VISIT 5 S GROUP MINUTES EMERGENCY 17964 [facility] 7 7 [facility] DEPARTMEN INC T VISIT HIGH/URGE NT SEVERITY [facility] LINETTE - 7 7 [facility] OUTPATIEN INC T OFFICE 27616 LIN[facility]TE LEIVA OUTPATIEN 7 7 [facility] VISIT HOSPITAL 10 P MINUTES EMERGENCY 93644 DEMETRIS ANDERS DEPT 7 7 PHYSICIAN VISIT S, PLLC HIGH SEVERITY& THREAT [facility] EMERGENCY 84334 [facility] 7 7 [facility] DEPARTMEN INC T VISIT LOW/MODER SEVERITY [facility]OSPITAL [facility] - 7 7 [facility] OUTPATIEN INC T OFFICE 61280 DARCIEGLEN VENITA OUTPATIEN 7 7 T NEW 30 CHIROPRAC MINUTES [facility] LINETTE - 7 7 [facility] OUTPATIEN INC T OFFICE 56085 LAVINIA KATE OUTPATIEN 7 7 KRISTIAN, T VISIT ,[facility] 25 MINUTES OFFICE 18349 LIN[facility]TE MCKEON 7 7 [facility] T VISIT 5 INC MINUTES [facility]OSP[facility] - 7 7 [facility] OUTPATIEN INC T [facility] - 7 7 [facility] OUTPATIEN INC T [facility] - 7 7 [facility] OUTPATIEN INC T [facility] - 7 7 [facility] OUTPATIEN INC T OFFICE 46438 [facility] OUTPATIEN 7 7 PHYSICIAN T VISIT S GROUP 25 MINUTES HOSPITAL [facility] - 7 7 [facility] OUTPATIEN INC [facility] - 7 7 [facility] OUTPATIEN INC T EMERGENCY 65941 [facility] 7 7 [facility] DEPARTMEN INC T VISIT MODERATE SEVERITY EMERGENCY 94661 DEMETRIS HUYNH DEPT 7 7 PHYSICIAN U VISIT S, PLLC HIGH SEVERITY& THREAT FUNCJ OFFICE 78808 [facility] LEIVA OUTPATIEN 7 7 [facility] 15 P MINUTES OFFICE 19833 JACOBO GODINEZ OUTPATIEN 7 7 [facility] VISIT [facility] 15 G MINUTES HOSPITAL [facility] - 6 6 [facility] OUTPATIEN INC T OFFICE 50144 [facility] [place] OUTPATIEN 6 6 PHYSICIAN T VISIT S GROUP 25 MINUTES HOSPITAL [facility] - 6 6 [facility] OUTPATIEN INC T OFFICE 29245 LAVINIA TOWNSEND OUTPATIEN 6 6 Kate TOWNSEND MD,[facility] 25 MINUTES OFFICE 20682 LIN[facility] LEIVA OUTPATIEN 6 6 [facility] T VISIT HOSPITAL 10 P MINUTES OFFICE 53520 MIDDLETONCARLINE FERRARA MIDDLETONCARLINE FERRARA OUTPATIEN 6 6 T VISIT 10 MINUTES EMERGENCY 32849 DEMETRIS ANDERS DEPT 6 6 PHYSICIAN CHARLEY VISIT S, [facility] HIGH SEVERITY& THREAT FUNCJ EMERGENCY 33400 [facility] 6 6 [facility] DEPARTMEN INC T VISIT HIGH/URGE NT SEVERITY [facility]OSPITAL [facility] - 6 6 [facility] OUTPATIEN INC T OFFICE 20803 LAVINIA ALDANA OUTPATIEN 6 6 STEPHEN TOWNSEND MD,[facility] MINUTES HOSPITAL [facility] - 6 6 [facility] OUTPATIEN INC T EMERGENCY 43673 [facility] 6 6 [facility] DEPARTMEN INC T VISIT MODERATE SEVERITY EMERGENCY 67691 DEMETRIS ANDERS 6 6 PHYSICIAN CHARLEY DEPARTMEN S, [facility] T VISIT HIGH/URGE NT SEVERITY [facility]OSPITAL [facility] - 6 6 [facility] OUTPATIEN INC T OFFICE 26343 [facility] CB ESQUIVEL OUTPATIEN 6 6 PHYSICIAN T VISIT S GROUP 10 MINUTES HOSPITAL [facility] - 6 6 [facility] OUTPATIEN INC T OFFICE 12046 [facility] CB TOD OUTPATIEN 6 6 PHYSICIAN T VISIT 5 S GROUP MINUTES OFFICE 26018 [facility] [place] OUTPATIEN 6 6 PHYSICIAN CHARLEY T VISIT S GROUP 15 MINUTES HOSPITAL [facility] - 6 6 [facility] OUTPATIEN INC T [facility]PITAL [facility] - 6 6 [facility] OUTPATIEN INC T OFFICE 47794 [facility] [place] OUTPATIEN 6 6 PHYSICIAN MAT T VISIT S GROUP 25 MINUTES HOSPITAL [facility] - 6 6 [facility] OUTPATIEN INC T OFFICE 12627 [facility] CB TOD CONSULTAT 6 6 PHYSICIAN ION S GROUP NEW/ESTAB PATIENT 30 MIN OFFICE 86822 [facility] [place] OUTPATIEN 6 6 PHYSICIAN CHARLEY T VISIT S GROUP 10 MINUTES OFFICE 54890 [facility] [place] OUTPATIEN 6 6 PHYSICIAN CHARLEY T VISIT S GROUP 10 MINUTES OFFICE 28656 BOYD ASHER OUTPATIEN 6 6 MD JERMAINE, T VISIT PSC 15 MINUTES OFFICE 05503 [facility] [place] OUTPATIEN 6 6 PHYSICIAN CHARLEY T VISIT S GROUP 10 MINUTES OFFICE 40775 BOYD ASHER OUTPATIEN 6 6 MD JERMAINE, T VISIT PSC 15 MINUTES OFFICE 72715 PROGRESSI BANDAR OUTPATIEN 6 6 VE TEREZA T NEW 30 PODIATRY MINUTES OFFICE 29257 [facility] FRYMAN OUTPATIEN 6 6 PHYSICIAN EUG T VISIT S GROUP 15 MINUTES OFFICE 47337 BOYD BARRETT OUTPATIEN 6 6 MD JERMAINE, T VISIT PSC 25 MINUTES OFFICE 21270 [facility] OUTPATIEN 6 6 [facility] T VISIT INC 10 MINUTES HOSPITAL [facility] - 6 6 [facility] OUTPATIEN [facility] LINETTE - 6 6 [facility] OUTPATIEN [facility] LINETTE - 6 6 [facility] OUTPATIEN [facility] OFFICE 93711 [place] MABEL CONSULTAT 6 6 MEDICAL THO ION SERV NEW/ESTAB FOUNDATIO PATIENT N 40 MIN OFFICE 90302 [facility] 6 6 Y T VISIT 5 HOSPITAL MINUTES HOSPITAL [facility] - 6 6 [facility] LIN[facility] - 6 6 [facility] OUTPATIEN [facility] OFFICE 05856 SCIFRES SCIFRES [facility] 6 6 ANG ANG T VISIT 10 MINUTES [facility] LINETTE - 6 6 [facility] OUTPATIEN [facility] OFFICE 00134 BOYD LE [facility] 6 6 MD JERMAINE, T VISIT PSC 15 MINUTES EMERGENCY 04690 DEMETRIS WHITESIDE [facility] DEPT 6 6 PHYSICIAN VISIT S, [facility] HIGH SEVERITY& THREAT [facility] LINETTE - 6 6 [facility] OUTPATIEN [facility] EMERGENCY 32583 LINETTE 6 6 [facility] T VISIT HIGH/URGE NT SEVERITY HOSPITAL LINET[facility] - 6 6 [facility] OUTPATIEN [facility] LINETTE - 6 6 [facility] OUTPATI[facility] LINETTE - 5 5 [facility] OUTPATIEN [facility] HOSPITAL LINETTE - 5 5 [facility] OUTPATIEN [facility] EMERGENCY 38266 LINETTE 5 5 [facility] DEPARTMEN [facility] T VISIT LOW/MODER SEVERITY EMERGENCY 10643 DEMETRIS BARTH [facility] 5 5 PHYSICIAN DEPARTMEN S, [facility] T VISIT MODERATE SEVERITY OFFICE 25284 [facility] OUTPATIEN 5 5 PHYSICIAN CHARLEY T VISIT S GROUP 10 MINUTES OFFICE 88059 [facility] ARACELILADAN OUTPATIEN 5 5 [facility] T VISIT MEDICAL 15 G MINUTES HOSPITAL [facility] - 5 5 [facility] OUTPATIEN INC T OFFICE 74881 BOYD LE LB OUTPATIEN 5 5 MD JERMAINE, T VISIT [facility] 15 MINUTES HOSPITAL LIN[facility] - 5 5 [facility] OUTPATIEN INC T [facility]OSPITAL [facility] - 5 5 [facility] OUTPATIEN INC T OFFICE 63504 BOYD DALLASISI BARRETT OUTPATIEN 5 5 MD JERMAINE, T VISIT [facility] 15 MINUTES HOSPITAL [facility] - 5 5 [facility] OUTPATIEN INC T OFFICE 59047 LINETTE ESCOBARKINS OUTPATIEN 5 5 [facility] T VISIT HOSPITAL 10 P MINUTES EMERGENCY 39651 DEMETRIS HUYNH 5 5 PHYSICIAN Dee DANIELS S, [facility] T VISIT HIGH/URGE NT SEVERITY OFFICE 38541 [facility] LEIVA OUTPATIEN 5 5 [facility] VISIT HOSPITAL 15 P MINUTES OFFICE 76176 MADAR BUX BUX ANJ OUTPATIEN 5 5 T VISIT 10 MINUTES HOSPITAL [facility] - 5 5 [facility] OUTPATIEN INC T OFFICE 41284 CARDIOVAS [facility] OUTPATIEN 5 5 CULISI MAT T VISIT CONSULTAN 15 TS O MINUTES HOSPITAL [facility] - 5 5 [facility] OUTPATIEN INC T OFFICE 45472 MADAR BUX BUX ANJ OUTPATIEN 5 5 T NEW 30 MINUTES HOSPITAL [facility] - 5 5 [facility] OUTPATIEN INC [facility] - 5 5 [facility] OUTPATIEN INC T OFFICE 61819 CARDIOVAS [facility] OUTPATIEN 5 5 CULAR MAT T NEW 45 CONSULTAN MINUTES TS O OFFICE 65054 [facility] OUTPATIEN 5 5 PHYSICIAN CHARLEY T VISIT S GROUP 10 MINUTES HOSPITAL [facility] - 5 5 [facility] OUTPATIEN INC T EMERGENCY 59311 [facility] 5 5 [facility] DEPARTMEN INC T VISIT HIGH/URGE NT SEVERITY [facility] - 5 5 [facility] OUTPATIEN INC T OFFICE 96087 [facility] GRETCHEN OUTPATIEN 4 4 [facility] T VISIT MEDICAL 10 G MINUTES HOSPITAL [facility] - 4 4 [facility] OUTPATIEN INC T [facility] - 4 4 [facility] OUTPATIEN INC T OFFICE 57832 LEIVA LEIVA OUTPATIEN 4 4 ART ART T VISIT 15 MINUTES OFFICE 63008 LEIVA LEIVA OUTPATIEN 4 4 ART ART T VISIT 15 MINUTES HOSPITAL [facility] - 4 4 [facility] OUTPATIEN INC T EMERGENCY 16318 JAIDEN CAMILLA JAIDEN CAMILLA 4 4 DEPARTMEN T VISIT HIGH/URGE NT SEVERITY OFFICE 74648 GRETCHEN GODINEZ OUTPATIEN 4 4 [facility] ADE HAM T NEW 45 MINUTES OFFICE 72702 [facility] OUTPATIEN 4 4 CHARLEY CHARLEY T VISIT 10 MINUTES EMERGENCY 51718 [facility] 4 4 [facility] DEPARTMEN INC T VISIT MODERATE SEVERITY [facility]PITAL [facility] - 4 4 [facility] OUTPATIEN INC T EMERGENCY 23648 [facility]AMP[facility] 4 4 III AREN III AREN DEPARTMEN T VISIT HIGH/URGE NT SEVERITY [facility]OSPITAL [facility] - 4 4 [facility] OUTPATIEN INC T EMERGENCY 15172 [facility] DEPT 4 4 III AREN III AREN VISIT HIGH SEVERITY& THREAT [facility] OFFICE 66372 [facility] ANDERS OUTPATIEN 4 4 CHARLEY CHARLEY T NEW 30 MINUTES EMERGENCY 77088 [facility] DEPT 4 4 [facility] VISIT INC HIGH SEVERITY& THREAT [facility] LINETTE - 4 4 [facility] OUTPATIEN [facility] T OFFICE 34468 VITAGRANT TREVINO OUTPATIEN 4 4 T [facility] 45 [facility] LINETTE - 3 3 [facility] OUTPATIEN [facility] T OFFICE 71188 NATHALY ANDERSEN OUTPATIEN 3 3 JR AREN RAI AREN T VISIT 15 MINUTES OFFICE 99019 [facility] 3 3 Y T [facility] 10 [facility] UNIVERSIT - 3 3 Y [facility] T OFFICE 85817 POPEYE PHI POPEYE PHI CONSULTAT 3 3 ION NEW/ESTAB PATIENT 40 MIN HOSPITAL [facility] - 3 3 [facility] OUTPATIEN [facility] HOSPITAL LINETTE - 3 3 [facility] OUTPATIEN [facility] T OFFICE 41992 NATHALY CRMIHira OUTPATIEN 3 3 JR AREN YOUNGER T VISIT 15 MINUTES HOSPITAL LINETTE - 3 3 [facility] OUTPATIEN [facility] HOSPITAL LINETTE - 3 3 [facility] OUTPATIEN [facility] H[facility]PITAL [facility] - 3 3 [facility] OUTPATIEN INC T OFFICE 54339 LAUREN AGUILAR OUTPATIEN 3 3 SAVITA SAVITA T VISIT 15 MINUTES HOSPITAL [facility] - 3 3 [facility] OUTPATIEN INC T OFFICE 78324 MCKEMIE MCKEMIE OUTPATIEN 3 3 JR AREN YOUNGER T VISIT 15 MINUTES OFFICE 26317 MCKEMIE MCKEMIE OUTPATIEN 3 3 JR AREN YOUNGER T VISIT 15 MINUTES HOSPITAL [facility] - 3 3 [facility] OUTPATIEN INC T OFFICE 37322 MCKEMIE MCKEMIE OUTPATIEN 3 3 JR AREN YOUNGER T VISIT 15 MINUTES EMERGENCY 53107 VOLODYMYR BRADFORD 3 3 EMERGENCY [facility] DEPARTMEN SERVICES T VISIT HIGH/URGE NT SEVERITY [facility]OSPITAL [facility] - 3 3 [facility] OUTPATIEN INC T EMERGENCY 32271 [facility] 3 3 [facility] DEPARTMEN INC T VISIT LOW/MODER SEVERITY OFFICE 19864 MCKEMIE MCKEMIE OUTPATIEN 3 3 JR AREN YOUNGER T VISIT 15 MINUTES EMERGENCY 49444 [facility] 3 3 [facility] DEPARTMEN INC T VISIT HIGH/URGE NT SEVERITY [facility]OSPITAL [facility] - 3 3 [facility] OUTPATIEN INC T EMERGENCY 31678 [facility] DEPT 3 3 CHARLEY CHARLEY VISIT HIGH SEVERITY& THREAT [facility] HOSPITAL LINETTE - 3 3 [facility] OUTPATIEN INC T OFFICE 05131 MCKEMIE MCKEMIE OUTPATIEN 3 3 JR AREN YOUNGER T VISIT 15 MINUTES HOSPITAL [facility] - 3 3 [facility] OUTPATIEN INC T EMERGENCY 22346 [facility] 3 3 [facility] DEPARTMEN INC T VISIT HIGH/URGE NT SEVERITY EMERGENCY 04876 [facility] DE[facility] 3 3 CHARLEY CHARLEY VISIT HIGH SEVERITY& THREAT [facility] HOSPITAL LINETTE - 2 2 [facility] OUTPATIEN INC T [facility]OSPITAL [facility] - 2 2 [facility] OUTPATIEN INC T OFFICE 86633 CALI ESCOBARKINS OUTPATIEN 2 2 ART ART T VISIT 5 MINUTES [facility]PITAL [facility] - 2 2 [facility] OUTPATIEN INC T [facility] - 2 2 [facility] OUTPATIEN INC T OFFICE 68211 LEIVA LEIVA OUTPATIEN 2 2 ART ART T NEW 20 MINUTES [facility]PITAL [facility] - 2 2 [facility] OUTPATIEN INC T OFFICE 53228 JAMA YUN OUTPATIEN 2 2 ARPAN ANTONY T VISIT 15 MINUTES HOSPITAL [facility] - 2 2 [facility] OUTPATIEN INC T OFFICE 20223 JAMA YUN OUTPATIEN 2 2 ARPAN ANTONY T VISIT 15 MINUTES OFFICE 92094 NICK ROMERO OUTPATIEN 2 2 JAM JAM T NEW 60 MINUTES OFFICE 10602 MCKEMIE RUTKEMIE OUTPATIEN 2 2 JR AREN YOUNGER T VISIT 15 MINUTES HOSPITAL [facility] - 2 2 [facility] OUTPATIEN INC T OFFICE 67506 JOHNY MCCLAIN OUTPATIEN 2 2 CAMILLA CAMILLA T VISIT 25 MINUTES OFFICE 76356 KANE FERRARA OUTPATIEN 2 2 T VISIT 10 MINUTES EMERGENCY 53912 [facility] 2 2 [facility] DEPARTMEN INC T VISIT HIGH/URGE NT SEVERITY EMERGENCY 31744 [facility] DEPT 2 2 III AREN III AREN VISIT HIGH SEVERITY& THREAT [facility] LINETTE - 2 2 [facility] OUTPATIEN INC T OFFICE 58484 MCKEMIE MCKEMIE OUTPATIEN 2 2 JR AREN JR AREN T VISIT 15 MINUTES OFFICE 16547 EDGE DONNIE FRANCES DONNIE OUTPATIEN 2 2 T NEW 10 MINUTES HOSPITAL [facility] - 2 2 [facility] OUTPATIEN INC T OFFICE 29568 ODALYS MORROW LB OUTPATIEN 2 2 T VISIT 10 MINUTES EMERGENCY 82099 [facility] 2 2 [facility] DEPARTMEN INC T VISIT MODERATE SEVERITY EMERGENCY 91904 BETH BAINALYSON DEPT 2 2 III AREN III AREN VISIT HIGH SEVERITY& THREAT [facility] - 2 2 [facility] OUTPATIEN INC T EMERGENCY 79140 BARAHONA MICHELLE BARAHONA MICHELLE DEPT 1 1 VISIT HIGH SEVERITY& THREAT FUNJ EMERGENCY 78497 [facility] 1 1 [facility] DEPARTMEN INC T VISIT MODERATE SEVERITY [facility]OSPITAL [facility] - 1 1 [facility] OUTPATIEN INC T OFFICE 91643 [facility] OUTPATIEN 1 1 [facility] VISIT INTERNAL 25 MED MINUTES OFFICE 50049 ODALYS MORROW LB OUTPATIEN 1 1 T NEW 30 MINUTES OFFICE 12894 BISHNU MORRISON JR OUTPATIEN 1 1 [facility] 15 PSC MINUTES OFFICE 17937 BISHNU FELDER OUTPATIEN 1 1 [facility] VISIT CLINIC 25 PSC MINUTES OFFICE 17029 [facility] OUTPATIEN 1 1 [facility] VISIT INTERNAL 25 MED MINUTES OFFICE 10378 BISHNU MCCORMACK CONSULTAT 1 1 [facility] NEW/ESTAB PSC PATIENT 80 MIN HOSPITAL [facility] - 1 1 [facility] OUTPATIEN INC T OFFICE 48838 [facility] OUTPATIEN 1 1 [facility] VISIT INTERNAL 15 MED MINUTES HOSPITAL [facility] - 1 1 [facility] OUTPATIEN [facility] EMERGENCY 49951 VOLODYMYR CAMPOS DEPT 1 1 EMERGENCY III AREN VISIT SERVICES HIGH SEVERITY& THREAT FUNCJ EMERGENCY 04770 [facility] 1 1 [facility] T VISIT MODERATE SEVERITY OFFICE 50487 [facility] OUTPATIEN 1 1 [facility] VISIT INTERNAL 25 MED MINUTES OFFICE 97578 [facility] [facility] OUTPATIEN 1 1 [facility] VISIT INTERNAL 25 MED MINUTES HOSPITAL [facility] - 1 1 [facility] H[facility] LIN[facility] - 1 1 [facility] OUTPATI[facility] OFFICE 02966 [facility] OUTPATIEN 1 1 [facility] VISIT INTERNAL 25 MED MINUTES HOSPITAL LINETTE - 1 1 [facility] OUTPATI[facility] HOSP[facility] LIN[facility] - 1 1 [facility] OUTPATIEN [facility] OFFICE 86108 [facility] OUTPATIEN 1 1 [facility] VISIT INTERNAL 15 MED MINUTES HOSPITAL LIN[facility] - 1 1 [facility] OUTPATI[facility] EMERGENCY 12206 [facility] 1 1 [facility] T VISIT HIGH/URGE NT SEVERITY EMERGENCY 07700 VOLODYMYR CAMPOS DEPT 1 1 EMERGENCY III AREN VISIT SERVICES HIGH SEVERITY& THREAT FUNJ OFFICE 06571 [place] MCKEMIE OUTPATIEN 1 1 [facility] AREN T VISIT INTERNAL 15 MED MINUTES OFFICE 22442 [place] MCKEMIE OUTPATIEN 1 1 [facility] AREN T VISIT INTERNAL 15 MED MINUTES OFFICE 11482 [facility] BESSON [facility]PATIEN 1 1 [facility] T VISIT [facility]NAL 15 MED MINUTES H[facility] - 1 1 [facility] T [facility] T OFFICE 10429 [facility] LAUREN [facility] 1 1 [facility] BARNEY T VISIT INTERNAL 15 MEDI MINUTES OFFICE 22628 [facility] 0 0 [facility] YOUNGER T VISIT INTERNAL 15 MED MINUTES [facility] T OFFICE 48723 [facility] 0 0 [facility] YOUNGER T VISIT INTERNAL 15 MED MINUTES EMERGENCY 35937 VOLODYMYR WENCESLAOJunior [facility] DEPT 0 0 EMERGENCY VISIT SERVICES HIGH SEVERITY& THREAT FUN OFFICE 47799 [facility] OUTPAT[facility] 0 0 [facility] SAMPSON T VISIT INTERNAL 15 MED MINUTES OFFICE 24140 BISHNU MORRISON OUTPATIEN 0 0 [facility] 15 PSC MINUTES OFFICE 12671 [facility] 0 0 [facility] RAI, Kate VISIT INTERNAL MCKAYLA F 15 MED MINUTES EMERGENCY 64635 [facility] 0 [facility] T VISIT HIGH/URGE NT SEVERITY [facility] T OFFICE 17258 ALLRAN ALLRAN CONSULTAT 0 0 JR RAI ION CHARLES F CHARLES F NEW/ESTAB PATIENT 80 MIN OFFICE 44751 [facility] 0 0 [facility] RAI, T VISIT INTERNAL MCKAYLA F 15 MED MINUTES [facility] T OFFICE 87032 [facility] 9 9 NAH[facility] RAI, Kate VISIT INTERNAL MCKAYLA F 15 MED MINUTES [facility] 9 9 [facility] T OFFICE 86915 GAIL SANCHEZ OUTPATIEN 9 9 ULI ESPINOZA T VISIT SERV 25 FOUNDATIO MINUTES [facility] 9 9 [facility] T [facility] - 9 9 [facility] OUTPATI[facility] INC T OFFICE 86877 [facility] JOHNY, OUTPATIEN 9 9 [facility] Allred T VISIT INTERNAL 15 MED MINUTES OFFICE 67822 Lauren WAYNE OUTPATIEN 9 9 [facility] T VISIT CLINIC 15 PSC MINUTES OFFICE 73935 [facility] 9 9 NAHUN RAI, T VISIT INTERNAL MCKAYLA F 15 MED MINUTES H[facility] - 9 9 [facility] T EMERGENCY 25175 [facility] 9 9 [facility] DEPARTMEN INC T VISIT HIGH/URGE NT SEVERITY EMERGENCY 10884 VOLODYMYR MAS[facility], DEPT 9 9 [facility] [place] VISIT SERVICES O HIGH SEVERITY& ASSOCIATE THREAT S FUNCJ OFFICE 34675 [facility] 9 9 NAHUN RAI, T VISIT INTERNAL MCKAYLA F 15 MED MINUTES OFFICE 99168 [facility] ELIAS OUTPATIEN 9 9 [facility] SHEFFIELD T VISIT INTERNAL 15 MED MINUTES OFFICE 80212 [facility] BESDONNIE, OUTPATIEN 9 9 NA[facility] Allred T VISIT INTERNAL 10 MED MINUTES OFFICE 95686 [facility] OUTPATIEN 9 9 NAH[facility] RAI, T VISIT INTERNAL MCKYALA F 15 MED MINUTES [facility] 9 [facility] T OFFICE 41348 [facility] ELIAS, OUTPATIEN 9 9 [facility] SHEFFIELD T VISIT INTERNAL 15 MED MINUTES [facility] - 8 8 [facility] OUTPATI[facility] INC T OFFICE 70111 [facility] ELIAS, OUTPATIEN 8 8 NAHUN SHEFFIELD T VISIT INTERNAL 15 MED MINUTES OFFICE 72275 [facility] ELIAS, OUTPATIEN 8 8 NAHUN SHEFFIELD T VISIT INTERNAL 15 MED MINUTES OFFICE 61381 [facility] 8 8 Kate GARNICA JR VISIT INTERNAL MCKAYLA F 15 MED MINUTES OFFICE 95119 Lauren WAYNE OUTPATIEN 8 8 [facility]IN[facility] 15 PSC MINUTES EMERGENCY 81688 AMBERLY [facility], DEPT 8 8 [facility] VISIT CORPORATI O HIGH ON SEVERITY& THREAT FUN EMERGENCY 86388 [facility] 8 8 [facility] DEPARTMEN [facility] T VISIT MODERATE SEVERITY [facility] 8 8 [facility] T OFFICE 96825 [facility] 8 8 NAHUN RAI, Kate VISIT INTERNAL MCKAYLA F 15 MED MINUTES [facility] - 8 8 [facility] T OFFICE 88256 [facility] 8 8 NAHUN RAI, Kate VISIT INTERNAL MCKAYLA F 15 MED MINUTES [facility] - 8 8 [facility] T OFFICE 58952 [facility] 8 8 NAHUN RAI, T VISIT INTERNAL MCKAYLA F 15 MED MINUTES OFFICE [id number] Lauren WAYNE CONSULTAT 8 8 [place] [facility] NEW/ESTAB PSC PATIENT 60 MIN OFFICE [id number] NEW BEN OUTPATIEN 8 8 [place] III, T VISIT CLINIC RADHA L 10 PSC MINUTES OFFICE 57102 [place] MCKEMIE OUTPATIEN 8 8 NAHUN RAI, T VISIT INTERNAL MCKAYLA F 15 MED MINUTES HOS[facility] - 8 8 [facility] OUT[facility] T EMERGENCY 43162 [place] 8 8 [facility] DEPARTMEN [facility] T VISIT HIGH/URGE NT SEVERITY [facility]OSP[facility] - 8 8 [facility] OUTPATIEN INC T EMERGENCY 08310 [place] VALERO, 8 8 [facility] T VISIT PROF SERV MODERATE SEVERITY OFFICE 08045 NEW BEN OUTPATIEN 8 8 [place] III, T NEW 45 CLINIC RADHA L MINUTES [facility] HOSPITAL [facility] - 8 8 [facility] OUTPATIEN [facility] T EMERGENCY 17715 [place] DEPT 8 8 [facility] VISIT [facility] HIGH SEVERITY& THREAT FUNCJ PERIODIC 61962 [place] SHAYEMIHira PREVENTIV 8 8 Hira GARNICA JR MED EST INTERNAL [facility] PATIENT MED 40-64YRS [facility] - 8 8 [facility] OUTPATIEN [facility] T OFFICE 64480 YAYO ZEE OUTPATIEN 8 8 LISBETH Love VISIT 40 MINUTES HOSP[facility] - 8 8 [facility] OUTPATIEN [facility] H[facility] - 8 8 [facility] OUTPATIEN [facility] EMERGENCY 61876 [place] 8 8 [facility] T VISIT HIGH/URGE NT SEVERITY EMERGENCY 33296 [place] COLMENARES DEPT 8 8 [facility] VISIT [facility] HIGH PROF SERV SEVERITY& THREAT FUNCJ OFFICE 40795 YAYO ZEE OUTPATIDERRICK 8 8 LISBETH Love VISIT 40 MINUTES OFFICE 72645 GAIL NYE, EBENEZER 8 8 MEDICAL LAKSHMI A ION SERV NEW/ESTAB [facility]OUNDAT[facility] PATIENT 40 MIN OFFICE 07641 MIKE BURGER 8 8 KRISTIAN Love VISIT [facility] 15 MINUTES
--- OUTSIDE RECORDS SUMMARY | 2017-11-21 03:13 | External Medical Summary Rpt | CCD ---
Author Author , LUIS EDUARDO HOFF Address Unknown Phone [email or web address] Immunization Name Date Rout CVX Reac Dose Comm Prov Is Faci e tion ent ider Refu lity Give sed n Infl 10-0 Intr 0.5 Hist GSHA No GSHA uenz 2-20 amus mL oric NE NE a 17 cula al Quad r Info rmat W/Pr ion es - Sour ce Unsp ecif ied
--- OUTSIDE RECORDS SUMMARY | 2017-11-21 03:13 | External Medical Summary Rpt | CCD ---
Author Author , LUIS EDUARDO HOFF Address Unknown Phone [email or web address] Immunization Name Date Rout CVX Reac Dose Comm Prov Is Faci e tion ent ider Refu lity Give sed n Infl 10-0 Intr 0.5 Hist GSHA No GSHA uenz 2-20 amus mL oric NE NE a 17 cula al Quad r Info rmat W/Pr ion es - Sour ce Unsp ecif ied
--- OUTSIDE RECORDS SUMMARY | 2017-11-21 03:14 | External Medical Summary Rpt ---
Author Author LUIS EDUARDO Production, JOSE LHEYDI Production Organization LUIS EDUARDO Production Address Unknown Phone Unavailable Results CBC W Auto Differential panel in Blood Observa Value Referen Units Interpr Notes Date tion ce etation Range Basophils 0 - 0.2 K/MM3 Normal No Nov 21 informati 2016 2:00 [#/volume on in AM ] in source Blood by data Automated count Basophils 0.1 - 2.0 % Normal No Nov 21 /100 informati 2016 2:00 leukocyte on in AM s in source Blood by data Automated count Eosinophi 0.0 - 0.4 K/mm3 Normal No Nov 21 ls informati 2016 2:00 [#/volume on in AM ] in source Blood by data Automated count Eosinophi 0.1 - % Normal No Nov 21 ls/100 12.0 informati 2016 2:00 leukocyte on in AM s in source Blood by data Automated count Granulocy 1.3 - 8.0 K/mm3 Normal No Nov 21 dez informati 2016 2:00 [#/volume on in AM ] in source Blood by data Automated count Granulocy 37.0 - % Normal No Nov 21 dez/100 80.0 informati 2016 2:00 leukocyte on in AM s in source Blood by data Automated count Hematocri 42.0 - % Low No Nov 21 t [Volume 52.0 informati 2016 2:00 on in AM Fraction] source of Blood data Hemoglobi 14.1 - g/dL Low No Nov 21 n 18.0 informati 2016 2:00 [Mass/vol on in AM ume] in source Blood data Lymphocyt 0.7 - 4.5 K/mm3 Normal No Nov 21 es informati 2016 2:00 [#/volume on in AM ] in source Unspecifi data ed specimen by Automated count Lymphocyt 10 - 50 % Normal No Nov 21 es informati 2016 2:00 [#/volume on in AM ] in source Unspecifi data ed specimen by Automated count Erythrocy 27 - 31.2 pg Normal No Nov 21 te mean informati 2016 2:00 corpuscul on in AM ar source hemoglobi data n [Entitic mass] Erythrocy 31.8 - g/dl Normal Nov 21 te mean 35.4 2016 2:00 corpuscul on in AM ar source hemoglobi data n concentra tion [Mass/vol ume] by Automated count Erythrocy 82.2 - fl Normal No Nov 21 te mean 97.8 2016 2:00 corpuscul on in AM ar volume source [Entitic data volume] by Automated count Monocytes 0.1 - 1.0 K/mm3 Normal No Nov 212016 2:00 [#/volume on in AM ] in source Blood by data Automated count Monocytes 1.7 - 9.3 % Normal No Nov 21 /100 2016 2:00 leukocyte on in AM s in source Blood by data Automated count Platelet 7.4 - fl Low No Nov 21 mean 10.4 2016 2:00 volume on in AM [Entitic source volume] data in Blood by Automated count Platelets 142 - 424 K/mm3 Normal No Nov 212016 2:00 [#/volume on in AM ] in source Blood data Erythrocy 4.6 - 6.2 M/mm3 Low No Nov 21 dez 2016 2:00 [#/volume on in AM ] in source Amniotic data fluid Erythrocy 11.5 - % Normal No Nov 21 te 17.5 2016 2:00 distribut on in AM ion width source [Entitic data volume] by Automated count Leukocyte 4.8 - K/MM3 Normal No Nov 21 s 10.8 2016 2:00 [#/volume on in AM ] in source Blood data Amylase [Enzymatic activity/volume] in Serum or Plasma Observa Value Referen Units Interpr Notes Date tion ce etation Range Amylase 25 - 115 U/L Normal No Nov 02 [Enzymati ati 2016 1:35 c on in PM activity/ source volume] data in Serum or Plasma Comprehensive metabolic 2000 panel in Serum or Plasma Observa Value Referen Units Interpr Notes Date ti ce etation Range Albumin/G 1.1 - 1.8 No Normal No Nov 02 lobulin informati 2016 1:35 [Mass on in on in PM ratio] in source source Serum or data data Plasma Albumin 3.4 - 5.0 gm/dL Normal No Nov 02 [Mass/vol inform2016 1:35 ume] in on in PM Serum or source Plasma data Alkaline 46 - 116 U/L High No Nov 02 phosphata informati 2016 1:35 se on in PM [Enzymati source c data activity/ volume] in Serum or Plasma Bilirubin 0.2 - 1.0 mg/dL Normal No Nov 02 .total informati 2016 1:35 [Mass/vol on in PM ume] in source Serum or data Plasma Urea 7 - 18 mg/dL High No Nov 02 nitrogen informati 2016 1:35 [Mass/vol on in PM ume] in source Serum or data Plasma Calcium 8.5 - mg/dL Normal No Nov 02 [Mass/vol 10.1 informati 2016 1:35 ume] in on in PM Serum or source Plasma data Chloride 98 - 107 mmoL/L Normal No Nov 02 [Moles/vo informati 2016 1:35 lume] in on in PM Serum or source Plasma data Carbon 21.0 - mmoL/L Normal No Nov 02 dioxide, 32.0 informati 2016 1:35 total on in PM [Moles/vo source lume] in data Serum or Plasma Creatinin 0.70 - mg/dL Normal No Nov 02 e 1.30 informati 2017 1:35 [Mass/vol on in PM ume] in source Serum or data Plasma Estimated >60 ML/MIN No REFERENCE Nov 02 informati RANGE: 2017 1:35 glomerula on in >60 PM r source ML/MIN/1. filtratio data 73 SQUARE n rate METERSIf (GF this patient is -A merican, then multiply theresult by 1.210. Globulin 1.3 - 3.2 gm/dL Normal No Nov 02 [Mass/vol informati 2016 1:35 ume] in on in PM Serum source data Glucose 74 - 106 mg/dL High No Nov 02 [Mass/vol informati 2016 1:35 ume] in on in PM Serum or source Plasma data Potassium 3.5 - 5.1 mmoL/L Normal No Nov 02 informati 2016 1:35 [Moles/vo on in PM lume] in source Serum or data Plasma Sodium 136 - 145 mmoL/L Normal No Nov 02 [Moles/vo informati 2016 1:35 lume] in on in PM Serum or source Plasma data Aspartate 15 - 37 U/L Normal No Nov 02 informati 2016 1:35 aminotran on in PM sferase source [Enzymati data c activity/ volume] in Serum or Plasma Alanine 12 - 78 U/L Normal No Nov 02 aminotran 2016 1:35 sferase on in PM [Enzymati source c data activity/ volume] in Serum or Plasma Protein 6.4 - 8.2 gm/dL Normal No Nov 02 [Mass/vol 2016 1:35 ume] in on in PM Serum or source Plasma data Lipase [Enzymatic activity/volume] in Serum or Plasma Observa Value Referen Units Interpr Notes Date tion ce etation Range Lipase 73 - 393 U/L Normal No Nov 02 [Enzymati ati 2016 1:35 c on in PM activity/ source volume] data in Serum or Plasma CBC W Auto Differential panel in Blood Observa Value Referen Units Interpr Notes Date ti ce etation Range Basophils 0 - 0.2 K/MM3 Normal No Nov 022016 1:35 [#/volume on in PM ] in source Blood by data Automated count Basophils 0.1 - 2.0 % Normal No Nov 022016 1:35 leukocyte on in PM s in source Blood by data Automated count Eosinophi 0.0 - 0.4 K/mm3 Normal No Nov 02 ls 2016 1:35 [#/volume on in PM ] in source Blood by data Automated count Eosinophi 0.1 - % Normal No Nov 02 ls/100 12.0 2016 1:35 leukocyte on in PM s in source Blood by data Automated count Granulocy 1.3 - 8.0 K/mm3 Normal No Nov 02 dze 2016 1:35 [#/volume on in PM ] in source Blood by data Automated count Granulocy 37.0 - % Normal No Nov 02 dez/100 80.0 2016 1:35 leukocyte on in PM s in source Blood by data Automated count Hematocri 42.0 - % Low No Nov 02 t [Volume 52.0 2016 1:35 on in PM Fraction] source of Blood data Hemoglobi 14.1 - g/dL Low No Nov 02 n 18.0 2016 1:35 [Mass/vol on in PM ume] in source Blood data Lymphocyt 0.7 - 4.5 K/mm3 Normal No Nov 02 es 2016 1:35 [#/volume on in PM ] in source Unspecifi data ed specimen by Automated count Lymphocyt 10 - 50 % Normal No Nov 02 es 2016 1:35 [#/volume on in PM ] in source Unspecifi data ed specimen by Automated count Erythrocy 27 - 31.2 pg Normal No Nov 02 te mean 2016 1:35 corpuscul on in PM ar source hemoglobi data n [Entitic mass] Erythrocy 31.8 - g/dl Normal No Nov 02 te mean 35.4 2016 1:35 corpuscul on in PM ar source hemoglobi data n concentra tion [Mass/vol ume] by Automated count Erythrocy 82.2 - fl Normal No Nov 02 te mean 97.8 2016 1:35 corpuscul on in PM ar volume source [Entitic data volume] by Automated count Monocytes 0.1 - 1.0 K/mm3 Normal No Nov 022016 1:35 [#/volume on in PM ] in source Blood by data Automated count Monocytes 1.7 - 9.3 % Normal No Nov 02 /100 2016 1:35 leukocyte on in PM s in source Blood by data Automated count Platelet 7.4 - fl Normal No Nov 02 mean 10.4 2016 1:35 volume on in PM [Entitic source volume] data in Blood by Automated count Platelets 142 - 424 K/mm3 Normal No Nov 022016 1:35 [#/volume on in PM ] in source Blood data Erythrocy 4.6 - 6.2 M/mm3 Low No Nov 02 dez 2016 1:35 [#/volume on in PM ] in source Amniotic data fluid Erythrocy 11.5 - % Normal No Nov 02 te 17.5 2016 1:35 distribut on in PM ion width source [Entitic data volume] by Automated count Leukocyte 4.8 - K/MM3 Normal No Nov 02 s 10.8 2016 1:35 [#/volume on in PM ] in source Blood data Urinalysis dipstick W Reflex Microscopic panel in Urine Observa Value Referen Units Interpr Notes Date tion ce etation Range Appeara CLEAR CLEAR No No No Nov 02 nce of informa informa informa 2016 Urine tion in tion in tion in 1:35 PM source source source data data data Bacteri TRACE O No No No Nov 02 a informa informa informa 2017 [Presen tion in tion in tion in 1:35 PM ce] in source source source Urine data data data sedimen t by Light microsc opy Bilirub NEGATIV NEG No No No Dec 6 in E informa informa informa 2016 [Presen tion in tion in tion in 1:35 PM ce] in source source source Urine data data data by Test strip Erythro NEGATIV NEG No No No Dec 6 cytes E informa informa informa 2016 [Presen tion in tion in tion in 1:35 PM ce] in source source source Urine data data data Color YELLOW YELLOW No No No Dec 6 of informa informa informa 2017 Urine tion in tion in tion in 1:35 PM source source source data data data Glucose NEG No No No Dec 6 [Mass/vol informati informati informati 2017 1:35 ume] in on in on in on in PM Urine by source source source Test data data data strip Ketones NEGATIV NEG mg/dL No No Dec 6 E informa informa 2016 [Presen tion in tion in 1:35 PM ce] in source source Urine data data by Automat ed test strip Mucus NEGATIV NEG No No No Dec 6 [Presen E informa informa informa 2016 ce] in tion in tion in tion in 1:35 PM Urine source source source sedimen data data data t by Light microsc opy Nitrite NEGATIV NEG No No No Dec 6 E informa informa informa 2016 [Presen tion in tion in tion in 1:35 PM ce] in source source source Urine data data data by Test strip pH of 5.0 - 8.5 No Normal No Dec 6 Urine informati informati 2017 1:35 on in on in PM source source data data Protein NEG mg/dL No No Dec 6 [Mass/vol informati informati 2017 1:35 ume] in on in on in PM Urine by source source Automated data data test strip Erythro NONE 0 rbc/hpf No No Dec 6 cytes informa informa 2016 [Presen tion in tion in 1:35 PM ce] in source source Urine data data sedimen t by Light microsc opy Specific 1.005 - No Normal No Dec 6 gravity 1.030 informati informati 2017 1:35 of Urine on in on in PM source source data data Epithel OCC OCC #/hpf No No Nov 02 ial informa informa 2017 cells.s tion in tion in 1:35 PM quamous source source data data [Presen ce] in Urine sedimen t by Microsc opy high power field Urobili 0.2 NEG E.U./dL No No Nov 02 nogen informa informa 2016 [Presen tion in tion in 1:35 PM ce] in source source Urine data data by Test strip Leukocyte O wbc/hpf No No Oct 6 s informati informati 2017 1:35 [#/volume on in on in PM ] in source source Urine data data Urinalysis dipstick W Reflex Microscopic panel in Urine Observa Value Referen Units Interpr Notes Date tion ce etation Range Appeara CLEAR CLEAR No No No Nov 02 nce of informa informa informa 2017 Urine tion in tion in tion in 1:35 PM source source source data data data Bilirub NEGATIV NEG No No No Nov 02 in E informa informa informa 2016 [Presen tion in tion in tion in 1:35 PM ce] in source source source Urine data data data by Test strip Erythro NEGATIV NEG No No No Nov 02 cytes E informa informa informa 2016 [Presen tion in tion in tion in 1:35 PM ce] in source source source Urine data data data Color YELLOW YELLOW No No No Nov 02 of informa informa informa 2017 Urine tion in tion in tion in 1:35 PM source source source data data data Glucose NEG No No No Nov 02 [Mass/vol informati informati informati 2016 1:35 ume] in on in on in on in PM Urine by source source source Test data data data strip Ketones NEGATIV NEG mg/dL No No Nov 02 E informa informa 2016 [Presen tion in tion in 1:35 PM ce] in source source Urine data data by Automat ed test strip Mucus NEGATIV NEG No No No Nov 02 [Presen E informa informa informa 2016 ce] in tion in tion in tion in 1:35 PM Urine source source source sedimen data data data t by Light microsc opy Nitrite NEGATIV NEG No No No Nov 02 E informa informa informa 2016 [Presen tion in tion in tion in 1:35 PM ce] in source source source Urine data data data by Test strip pH of 5.0 - 8.5 No Normal No Oct 6 Urine informati informati 2016 1:35 on in on in PM source source data data Protein NEG mg/dL No No Nov 02 [Mass/vol informati informati 2016 1:35 ume] in on in on in PM Urine by source source Automated data data test strip Specific 1.005 - No Normal No Nov 02 gravity 1.030 informati informati 2016 1:35 of Urine on in on in PM source source data data Urobili 0.2 NEG E.U./dL No No Nov 02 nogen informa informa 2016 [Presen tion in tion in 1:35 PM ce] in source source Urine data data by Test strip Urea nitrogen [Mass/volume] in Serum or Plasma Observa Value Referen Units Interpr Notes Date tion ce etation Range Urea 7 - 18 mg/dL Normal No Sep 27 nitrogen informati 2016 [Mass/vol on in 12:38 PM ume] in source Serum or data Plasma CREATININE Observa Value Referen Units Interpr Notes Date tion ce etation Range Creatinin 0.70 - mg/dL Normal No Sep 27 e 1.30 informati 2016 [Mass/vol on in 12:38 PM ume] in source Serum or data Plasma Estimated >60 ML/MIN No REFERENCE Sep 27 informati RANGE: 2017 glomerula on in >60 12:38 PM r source ML/MIN/1. filtratio data 73 SQUARE n rate METERSIf (GF this patient is -A merican, then multiply theresult by 1.210. Benzodiazepines Confirm, Urine Observa Value Referen Units Interpr Notes Date tion ce etation Range Benzodi Negativ Cutoff= ng/mL No No Aug 29 azepine e 100 informa informa 2016 s tion in tion in 10:15 [Presen source source AM ce] in data data Urine Alprazo Negativ Cutoff= No No No Aug 29 vargas e 100 informa informa informa 2016 [Presen tion in tion in tion in 10:15 ce] in source source source AM Urine data data data Clonaze Negativ Cutoff= No No No Aug 29 frances e 100 informa informa informa 2017 [Presen tion in tion in tion in 10:15 ce] in source source source AM Urine data data data Temazep Negativ Cutoff= No No No Oct 2 am e 100 informa informa informa 2017 [Presen tion in tion in tion in 10:15 ce] in source source source AM Urine data data data by Confirm method Triazol Negativ Cutoff= No No No Oct 2 am e 100 informa informa informa 2017 [Presen tion in tion in tion in 10:15 ce] in source source source AM Urine data data data Midazol Negativ Cutoff= No No No Oct 2 am e 100 informa informa informa 2017 [Presen tion in tion in tion in 10:15 ce] in source source source AM Urine data data data by Confirm method Nordiaz Negativ Cutoff= No No No Oct 2 epam e 100 informa informa informa 2017 [Presen tion in tion in tion in 10:15 ce] in source source source AM Urine data data data Please Comment . No No Drug-te Oct 2 Note: informa informa st 2017 tion in tion in results 10:15 source source should AM data data be interpr eted in the context of clinica linform ation. Patient metabol ic variabl es, specifi c drug chemist proteins ry, andspec imen charact eristic s can affect test outcome . Technic alconsu ltation is availab le if a test result is inconsi stent with anexpec vandana outcome . (email- lindsay andrews @[email or web address] or call [facility] [phone] )Drug brands, if listed herein, are tradema rks of their respect efe rs.Perf ormed at: [facility] - [facility] [id number] [facility], [place], [place] [id number]Lab Directo r: Tha Landeros MD, Phone: [phone] Oxazepa Negativ Cutoff= No No No Oct 2 m e 100 informa informa informa 2017 [Presen tion in tion in tion in 10:15 ce] in source source source AM Urine data data data Fluraze Negativ Cutoff= No No No Oct 2 frances e 100 informa informa informa 2017 [Presen tion in tion in tion in 10:15 ce] in source source source AM Urine data data data Lorazep Negativ Cutoff= No No No Oct 2 am e 100 informa informa informa 2016 [Presen tion in tion in tion in 10:15 ce] in source source source AM Urine data data data Drugs identified in [...] No No Oct 2 dez informati informati 2016 [Mass/vol on in on in 10:15 AM ume] in source source Urine by data data Screen method Benzodiaz 200 ng/mL ng/mL No No Oct 2 epines informati informati 2016 [Mass/vol on in on in 10:15 AM ume] in source source Serum or data data Plasma by Screen method Cocaine <300 ng/g No No Oct 2 [Mass/vol informati informati 2016 ume] in on in on in 10:15 AM Unspecifi source source ed data data specimen Methadone <300 ng/mL No No Oct 2 informati informati 2016 [Mass/vol on in on in 10:15 AM ume] in source source Unspecifi data data ed specimen Opiates <300 ng/mL No No Oct 2 [Mass/vol informati informati 2016 ume] in on in on in 10:15 [...] pg Normal No Sep 10 te mean informati 2016 3:17 corpuscul on in PM ar source hemoglobi data n [Entitic mass] Erythrocy 31.8 - g/dl Normal No Sep 10 te mean 35.4 informati 2016 3:17 corpuscul on in PM ar source hemoglobi data n concentra tion [Mass/vol ume] by Automated count Erythrocy 82.2 - fl Normal No Sep 10 te mean 97.8 informati 2016 3:17 corpuscul on in PM ar volume source [Entitic data volume] by Automated count Monocytes 0.1 - 1.0 K/mm3 Normal No Sep 10 informati 2016 3:17 [#/volume on in PM ] in source Blood by data Automated count Monocytes 1.7 - 9.3 % Normal No Sep 10 /100 informati 2016 3:17 leukocyte on in PM s in source Blood by data Automated count Platelet 7.4 - fl Low No Sep 10 mean 10.4 informati 2016 3:17 volume on in PM [Entitic source volume] data in Blood by Automated count Platelets 142 - 424 K/mm3 Normal No Sep 10 informati 2016 3:17 [#/volume on in PM ] in source Blood data Erythrocy 4.6 - 6.2 M/mm3 Low No Sep 10 dez informati 2016 3:17 [...] 18 mg/dL Normal No Jul 22 nitrogen informati 2016 [Mass/vol on in 12:58 PM ume] in [...] interpr eted in the context of [facility]. Patient metabol ic variabl es, specifi c drug chemist proteins ry, andspec imen charact eristic s can affect test outcome . Technic avilau ltation is availab le if a test result is inconsi stent with anexpec vandana outcome . (email- lindsay andrews @[email or web address] or call [employer] [phone] )Drug brands, if listed herein, are tradema rks of their respect efe russ.Perf ormed at: - [facility] [id number] [place], [place] [id number] 53Lab Directo r: Tha Landeros MD, Phone: [phone] Oxazepa Negativ Cutoff= No No No Jun [...] No No Jun 15 epines informati informati 2017 2:55 [Mass/vol on in on in PM ume] in source source Serum or data data Plasma by Screen method Cocaine <300 ng/g No No Jun 15 [Mass/vol informati informati 2017 2:55 ume] in on in on in PM Unspecifi source source ed data data specimen Methadone <300 ng/mL No No Jun 15 informati informati 2017 2:55 [Mass/vol on in on in PM [...] - 2.0 % Normal No May 26 /100 informati [...] data Hemoglobi 14.1 - g/dL Low No May 26 n 18.0 informati 2016 7:10 [Mass/vol on in AM ume] in source Blood data Lymphocyt 0.7 - 4.5 K/mm3 Normal No May 26 es informati 2016 7:10 [#/volume on in AM ] in source Unspecifi data ed specimen by Automated count Lymphocyt 10 - 50 % Normal No May 26 es informati 2017 [...] No May 26 te mean 97.8 informati 2016 7:10 corpuscul on in AM ar volume [...]
--- OUTSIDE RECORDS SUMMARY | 2017-11-21 03:14 | External Medical Summary Rpt ---
[...] - 8.0 K/mm3 Normal No Nov 02 dez 2016 1:35 [#/volume [...] metabol ic variabl es, specifi c drug polymer chemist ry, andspec imen charact eristic s can affect test outcome . Technic alconsu ltation is availab le if a test result is inconsi stent with anexpec vandana outcome . (email- lindsay andrews @[email or web address] or call [employer] [phone] )Drug brands, if listed herein, are tradema rks of their respect efe rs.Perf ormed at: [facility] - [facility] [id number] [facility], [place], [place], [place] [id number] 53Lab Directo r: Tha Landeros MD, Phone: [phone] Oxazepa Negativ Cutoff= No No No Oct [...] Barbitura <200 ng/mL No No Sep 10 dze informati informati 2017 3:30 [Mass/vol on in [...] interpr eted in the context of clinica [facility]. Patient metabol ic variabl es, specifi c drug polymer chemist ry, andspec imen charact eristic s can affect test outcome . Technic avilau ltation is availab le if a test result is inconsi stent with anexpec vandana outcome . (email- lindsay andrews @[email or web address] or call [employer] [phone] )Drug brands, if listed herein, are tradema rks of their respect efe russ.Perf ormed at: - [facility] [id number] [place], [place] [id number] 53Lab Directo r: Tha Landeros MD, Phone: [phone] Oxazepa Negativ Cutoff= No No No Jun [...]
--- OUTSIDE RECORDS SUMMARY | 2017-11-21 03:19 | External Medical Summary Rpt | CCD ---
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, [facility] Purpose Continuity of Care Document - 02-02-2010 through 2016 Problems Code Diagnosis DOS Provider Status 441.4 441.4 ABDOM 01-25-2013 [facility] 558.9 558.9 01-25-2013 [facility] IT NEC I20.0 UNSTABLE ANGINA I71.4 [...] ti 4 ve MG /2 ML AL CA 51 02 0 No OM 07 -2 [...] 24 SS ti TH 81 1- 5- SI 87 ON ve YR 80 20 [...] CY ET NT HI AN A ME 00 05 [...] RG 80 3- 9 00 SI 32 AL ve E 48 20 20 DE E 10 91 10 11 JR -1 5 PH 60 AR [place] MA LL MG CY IA M TA OF F BL ET CY NT HI AN A CA 00 01 03 2 20 5 EA [...] AZ 30 7- 7- 00 SI 91 AL ve EP 83 20 [...] OC 10 9- 4- 00 SI 00 AL ve HL 34 [...] 33 KE ti UM 65 1- - 00 SI 04 AL ve 04 20 [...] UL CY E NT HI AN A CA 00 01 01 2 20 5 EA [...] AZ 30 9 8 00 SI 83 AL ve EP 83 [...] KE ti 40 6- 6 SI 49 AL ve TA 68 [...] ti AZ 30 9 9 SI 83 AL ve EP 83 20 [...] .0 ST 23 KE ti OC 10 1 SI 17 AL ve HL 34 20 [...] 16 SS ti TH 81 9 9 SI 83 ON ve YR 80 [...] ST 64 KE ti 40 9- 5- SI 89 AL ve TA 68 20 20 DE E TI 40 10 10 JR N 3 PH 40 AR WI MA LL MG CY IA M TA OF F BL ET CY NT HI AN A CL 00 11 11 0 90 30 EA 19 MC Ac ON 09 -0 -[address] 88 KE ti AZ 30 8 8 SI 62 AL ve EP 83 20 [...] ST 64 KE ti 40 9 5 00 SI 89 AL ve TA 68 [...] ST 46 KE ti AZ 30 8 SI 44 AL ve EP 83 [...] ST 28 KE ti AM 60 4- 4 00 SI 32 AL ve ET 27 [...] OC 10 7- 8- 00 SI 77 AL ve HL 34 [...] TH 81 8- 8- 00 SI 58 AL ve YR [...] ti 10 4 4 00 SI 12 AL ve 54 20 20 0 DE E 00 10 10 JR 1 PH AR WI MA LL CY IA M OF F CY NT HI AN A CL 00 08 08 0 90 30 EA 18 MC Ac ON 09 -0 -[address] 64 KE ti AZ 30 9 9 SI 45 AL ve EP 83 20 [...] .0 ST 64 KE ti 40 9 SI 89 AL ve TA 68 [...] .0 ST 26 LR ti AL 33 8 8 SI 99 AN ve EX 14 20 20 DE IN 70 10 10 JR 5 PH 50 AR CH 0 MA AR MG CY LE S CA OF F PS UL CY E NT HI AN A SI 16 02 07 4 30 30 EA 16 Ac MV 72 -1 -[address] 35 KE ti 90 2 3 SI 46 AL ve TA 00 20 20 DE E TI 61 10 10 JR N 7 PH 40 AR WI MA LL MG CY IA M TA OF F BL ET CY NT HI AN A NE 00 03 07 3 30 30 EA 16 Ac XI 18 -1 -[address] 82 KE ti UM 65 7- 3 SI 12 AL ve 04 [address] 03 10 10 JR 1 PH 40 AR WI MA LL MG CY IA M CA OF F PS UL CY E NT HI AN A EX 00 05 06 5 30 30 EA 17 Ac FO [...] OC 10 7- 1- 00 SI 77 AL ve HL 34 20 20 DE E OR 70 10 10 JR OT 1 PH HI AR WI [place] MA LL ID CY IA E M 12 OF F .5 CY MG NT HI CP AN A LE 00 04 06 3 [...] ET NT HI AN A 00 06 06 0 24 [...] 70 KE ti RG 80 2- 2 SI 24 AL ve E 48 20 20 DE E 10 91 10 10 JR -1 5 PH 60 AR WI MA LL MG CY IA M TA OF F BL ET CY NT HI AN A 00 05 05 0 12 30 EA 17 MC Ac 59 -1 -[address] 61 KE ti 10 SI 05 AL ve 54 20 20 0 DE E 00 10 10 JR 1 PH AR WI MA LL CY IA M OF F CY NT HI AN A LE 00 04 05 3 30 30 EA 17 Ac VO 37 -0 -[address] 10 KE ti TH 81 7- 7- 00 SI 12 AL ve YR 80 [...] ST 48 KE ti AZ 30 6 6- 00 SI 98 AL ve EP 83 20 20 DE E AM 20 10 10 JR 1 PH 0. AR WI 5 MA LL MG CY IA M TA OF F BL ET CY NT HI AN A SI 65 02 04 3 30 30 EA 16 MC Ac MV 86 -1 -[address] 35 KE ti 20 2- 3- 00 SI 46 AL ve TA 05 20 20 DE E TI 33 10 10 JR N 0 PH 40 AR WI MA LL MG CY IA M TA OF F BL ET CY NT HI AN A NE 00 03 04 3 30 30 EA 16 MC Ac XI 18 -1 -[address] 82 KE ti UM 65 7 3- 00 SI 12 AL ve 04 [...] 30 EA 17 MC Ac ON 09 1 -[address] 20 KE ti AZ [...] ST 81 KE ti 10 SI 83 AL ve 54 20 20 0 DE E 00 10 10 JR 1 PH AR WI MA LL CY IA M OF F CY NT HI AN A CL 00 03 03 0 60 30 EA 16 MC Ac ON [address] 81 KE ti AZ 30 SI 84 AL ve EP 83 20 [...] CY MG NT HI CP AN A Vital Signs 03-06-2013 19:06 Name [...] Order Detail nces retati t Range on Urinalysis with microscopy (11-02-2017 13:35) Urine CLEAR CLEAR complet appeara 017 CLEAR L ed nce 13:35 determi nation Bacteri TRACE O complet a 017 TRACE L ed detecti 13:35 on in urine sedimen t by Urine NEGATIV NEG complet total 017 E ed bilirub 13:35 NEGATIV in E L detecti on by test Urine NEGATIV NEG complet blood 017 E ed detecti 13:35 NEGATIV on E L Urine YELLOW YELLOW complet color 017 YELLOW ed 13:35 L Glucose = NEG complet ur 017 NEGATIV ed test 13:35 E strip Urine NEGATIV NEG complet ketones 017 E ed 13:35 NEGATIV detecti E L on by mg/dL automat ed dez Mucus NEGATIV NEG complet detecti 017 E ed on in 13:35 NEGATIV urine E L sedimen t by lig Urine NEGATIV NEG complet nitrite 017 E ed 13:35 NEGATIV detecti E L on by test strip Urine = 5.5 5.0-8.5 complet pH 017 ed 13:35 Urine = NEG complet protein 017 NEGATIV ed 13:35 E mg/dL measure ment by automat ed t Erythro NONE 0 complet cytes 017 NONE L ed detecti 13:35 rbc/hpf on in urine sedimen t Urine = 1.010 1.005-1 complet specifi 017 .030 ed c 13:35 gravity measure ment [place] OCC OCC OCC complet s 017 L ed epithel 13:35 #/hpf ial cells detecti on in u Urine 0.2 0.2 NEG complet urobili 017 L ed nogen 13:35 E.U./dL detecti on by test str Urine = NONE O complet leukocy 017 wbc/hpf ed dez 13:35 count (number /volume ) CBC w auto diff (11-02-2017 13:35) Blood = 5.5 4.8-10. complet leukocy 017 K/MM3 8 ed dez 13:35 count (number /volume ) Automat = 0.1 0-0.2 complet ed 017 K/MM3 ed blood 13:35 basophi l count (count/ vo Baso % = 1.3 % 0.1-2.0 complet 017 ed 13:35 Automat = 0.1 0.0-0.4 complet ed 017 K/mm3 ed blood 13:35 eosinop hil count Automat = 2.2 % 0.1-12. complet ed 017 0 ed blood 13:35 eosinop hils/10 0 leukocy t Blood = 2.9 1.3-8.0 complet granulo 017 K/mm3 ed cytes 13:35 automat ed count (numb Granulo = 52.5 37.0-80 complet cyte 017 % .0 ed percent 13:35 age Blood = 38.8 42.0-52 complet hematoc 017 % .0 ed rit 13:35 (volume fractio n) Blood = 13.0 14.1-18 complet hemoglo 017 g/dL .0 ed bin 13:35 measure ment (mass/v olum Absolut = 2.1 0.7-4.5 complet e 017 K/mm3 ed lymphoc 13:35 yte count Lymphoc = 37.4 10-50 complet yte 017 % ed count, 13:35 blood, automat ed Mean = 28.8 27-31.2 complet corpusc 017 pg ed ular 13:35 hemoglo bin (MCH) determ Automat = 33.6 31.8-35 complet ed 017 g/dl .4 ed erythro 13:35 cyte mean corpusc ular h Automat = 85.7 82.2-97 complet ed 017 fl .8 ed erythro 13:35 cyte mean corpusc ular v Absolut = 0.4 0.1-1.0 complet e 017 K/mm3 ed monocyt 13:35 e count [place] % = 6.6 % 1.7-9.3 complet 017 ed 13:35 Automat = 7.5 7.4-10. complet ed 017 fl 4 ed blood 13:35 platele t mean volume [place] Blood = 233 142-424 complet platele 017 K/mm3 ed t count 13:35 Red = 4.52 4.6-6.2 complet blood 017 M/mm3 ed cell 13:35 count Automat = 12.9 11.5-17 complet ed 017 % .5 ed erythro 13:35 cyte distrib ution width Amylase ser/plas (11-02-2017 13:35) Amylase = 42 25-115 complet 017 U/L ed ser/daily 13:35 s Comprehensive metabolic panel (11-02-2017 13:35) Serum = 1.4 1.1-1.8 complet or 017 ed plasma 13:35 albumin /globul in mass ra Serum = 4.1 3.4-5.0 complet or 017 gm/dL ed plasma 13:35 albumin measure ment (mas Serum = 129 46-116 complet or 017 U/L ed plasma 13:35 alkalin e phospha tase [place] Serum = 0.4 0.2-1.0 complet or 017 mg/dL ed plasma 13:35 total bilirub in measure m Serum = 20 7-18 complet or 017 mg/dL ed plasma 13:35 urea nitroge n measure men Serum = 9.3 8.5-10. complet or 017 mg/dL 1 ed plasma 13:35 calcium measure ment (mas Serum = 104 98-107 complet or 017 mmoL/L ed plasma 13:35 chlorid e measure ment (mo Carbon = 28 21.0-32 complet dioxide 017 mmoL/L .0 ed 13:35 measure ment Serum = 1.2 0.70-1. complet or 017 mg/dL 30 ed plasma 13:35 creatin ine measure ment ( Estimat = 61 >60 complet ed 017 ML/MIN ed glomeru 13:35 lar filtrat ion rate (GF Comment: REFERENCE RANGE: >60 ML/MIN/1.73 SQUARE METERS Comment: If this patient is -[place], then multiply the Comment: result by 1.210. Serum = 3.0 1.3-3.2 complet globuli 017 gm/dL ed n 13:35 measure ment (mass/v olume) Serum = 112 74-106 complet or 017 mg/dL ed plasma 13:35 glucose measure ment (mas Serum = 3.7 3.5-5.1 complet potassi 017 mmoL/L ed um 13:35 measure ment Serum = 142 136-145 complet sodium 017 mmoL/L ed measure 13:35 ment Serum = 17 15-37 complet or 017 U/L ed plasma 13:35 asparta te aminotr ansfera ALT = 27 12-78 complet (SGPT) 017 U/L ed ser/daily 13:35 s Protein = 7.1 6.4-8.2 complet total 017 gm/dL ed ser/daily 13:35 s Lipase measurement (11-02-2017 13:35) Lipase = 103 73-393 complet measure 017 U/L ed ment 13:35 Serum or plasma urea nitrogen measuremen (09-27-2017 12:38) Serum = 14 7-18 complet or 017 mg/dL ed plasma 12:38 urea nitroge n measure men CREATININE (09-27-2017 12:38) Serum = 1.3 0.70-1. complet or 017 mg/dL 30 ed plasma 12:38 creatin ine measure ment ( Estimat = 56 >60 complet ed 017 ML/MIN ed glomeru 12:38 lar filtrat ion rate (GF Comment: REFERENCE RANGE: >60 ML/MIN/1.73 SQUARE METERS Comment: If this patient is -[place]inn[place], then multiply the Comment: result by 1.210. URINALYSIS/COMPLETE (01-25-2013 19:30) URINE YELLOW YELLOW complet [...] BRADFORD MD (ER) 3 15:33 3 19:06 [facility] SERGIO Daley (ER) 3 18:40 3 21:51 [facility]
--- OUTSIDE RECORDS SUMMARY | 2017-11-21 03:19 | External Medical Summary Rpt | CCD ---
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 Name Role Phone [facility], [facility] [place], [facility] Purpose Continuity of Care Document - 02-02-2010 through 2016 Problems Code Diagnosis DOS Provider Status 441.4 441.4 ABDOM 01-25-2013 [facility] 558.9 558.9 01-25-2013 [facility] IT NEC I20.0 UNSTABLE ANGINA I71.4 [...] RT 40 9- 9- 00 SI 16 MA ve AN 22 20 20 0 DE [...] PE 40 4- 4- 00 SI 87 MA ve NT 66 20 20 0 DE E IN 20 13 13 JR 1 PH 30 AR WI 0 MA LL MG CY IA M CA OF F PS UL CY E NT HI AN A LO 16 06 11 4 15 15 EA 31 Ac SA 71 -1 -[address] 99 KE ti RT 40 0- 2- 00 SI 99 MA ve AN 22 20 20 0 DE E -H [address] 1 PH Z AR WI 10 MA LL 0- CY IA 12 M .5 OF F MG CY NT TA HI B AN A SI 16 11 11 0 30 30 EA 33 Ac MV 71 -1 -[address] 61 KE ti 40 2- 2- 00 SI 39 MA ve TA 68 20 20 0 DE E TI 40 13 13 JR N 3 PH 40 AR WI MA LL MG CY IA M TA OF F BL ET CY NT HI AN A OM 62 09 11 2 30 30 EA 32 Ac EP 17 -0 -[address] 86 KE ti RA 50 4- 1- 00 SI 09 MA ve ZO 13 20 20 0 DE E LE 63 13 [address] AR WI MA LL 40 CY IA M MG OF F CA CY PS NT UL HI E AN A ME 00 08 11 3 30 30 EA 32 Ac TF 09 -0 -[address] 52 KE ti OR 31 2- 9- 00 SI 59 MA ve MA 04 20 20 0 DE E N 81 13 13 JR HC 0 PH L AR WI 50 MA LL 0 CY IA MG M OF F TA BL CY ET NT HI AN A FU 63 08 11 2 30 30 EA 32 Ac RO 30 -2 -[address] 80 KE ti SE 40 9- 5- 00 SI 32 MA ve MA 62 20 20 0 DE E DE 51 13 13 JR 0 PH 40 AR WI MA LL MG CY IA M TA OF F BL ET CY NT HI AN A CL 00 10 11 0 45 15 EA 33 Ac ON 22 -1 -[address] 31 KE ti AZ 83 4- 2- 00 SI 89 MA ve EP 00 20 20 0 DE E AM 45 13 13 JR 1 0 PH AR WI MG MA LL CY IA TA M BL OF F ET CY NT HI AN A LE 00 07 11 3 30 30 EA 32 MC Ac VO 37 -2 -[address] 46 KE ti TH 81 6- 2- 00 SI 48 MA ve YR 80 20 20 0 DE [...] RT 40 0- 5- 00 SI 99 MA ve AN 22 20 20 0 DE [...] AZ 83 4- 4- 00 SI 89 MA ve EP 00 20 20 0 DE E AM 45 13 13 JR 1 0 PH AR WI MG MA LL CY IA TA M BL OF F ET CY NT HI AN A SI 16 08 10 2 30 30 EA 32 MC Ac MV 71 -0 -[address] 57 KE ti 40 7- 2- 00 SI 30 MA ve TA 68 20 20 0 DE E TI 40 13 13 JR N 3 PH 40 AR WI MA LL MG CY IA M TA OF F BL ET CY NT HI AN A OM 62 09 10 2 30 30 EA 32 MC Ac EP 17 -0 -[address] 86 KE ti RA 50 4- 9- 00 SI 09 MA ve ZO 13 20 20 0 DE E LE 63 13 [address] AR WI MA LL 40 CY IA M MG OF F CA CY PS NT UL HI E AN A ME 00 08 10 3 30 30 EA 32 MC Ac TF 09 -0 -[address] 52 KE ti OR 31 2- 7- 00 SI 59 MA ve MA 04 20 20 0 DE E N 81 13 13 JR HC 0 PH L AR WI 50 MA LL 0 CY IA MG M OF F TA BL CY ET NT HI AN A FU 63 08 10 2 30 30 EA 32 MC Ac RO 30 -2 -[address] 80 KE ti SE 40 9- 3- 00 SI 32 MA ve MA 62 20 20 0 DE E DE [...] ti 4 ve MG /2 ML AL AZ 51 02 0 No OM 07 -2 ET 90 8- Lo NG 89 20 ng ZI 52 13 er NE 0H Ac 25 ti MG ve TA BL ET TA KE EX 00 08 10 2 30 30 EA 23 MC Ac FO 07 -1 -[address] 73 KE ti RG 80 9- 9- 00 SI 45 MA ve E 48 20 20 DE E 10 91 11 11 JR -1 5 PH 60 AR WI MA LL MG CY IA M TA OF F BL ET CY NT HI AN A ME 00 08 10 1 30 30 EA 23 BE Ac TF 09 -2 -[address] 77 SS ti OR 31 3- 8- 00 SI 83 ON ve MA 04 20 20 DE N 81 11 [...] AC 40 4- 4- 00 SI 01 MA ve ET 70 20 20 DE E [...] UM 65 6- 0- 00 SI 46 MA ve 04 [address] 03 11 11 JR 1 PH 40 AR WI MA LL MG CY IA M CA OF F PS UL CY E NT HI AN A FU 63 09 10 3 30 30 EA 24 MC Ac RO 30 -1 -[address] 04 KE ti SE 40 2- 0- 00 SI 35 MA ve MA 62 20 20 DE E DE 51 [...] ti 10 7- 7- 00 SI 81 MA ve 54 20 20 0 DE E [...] RG 80 9- 4- 00 SI 45 MA ve E 48 20 20 DE E 10 91 11 11 JR -1 5 PH 60 AR WI MA LL MG CY IA M TA OF F BL ET CY NT HI AN A SI 16 05 09 3 30 30 EA 22 MC Ac MV 71 -3 -[address] 74 KE ti 40 1- 4- 00 SI 35 MA ve TA 68 20 20 DE E [...] 2- 2- 00 SI 16 ON ve MA 62 20 20 DE DE 51 11 [...] ti 10 7- 7- 00 SI 45 MA ve 54 20 20 0 DE E 00 11 11 JR 1 PH AR WI MA LL CY IA M OF F CY NT HI AN A CL 00 09 09 0 90 30 EA 23 MC Ac ON 09 -0 -[address] 98 KE ti AZ 30 6- 6- 00 SI 47 MA ve EP 83 20 20 DE E AM 20 11 11 JR 1 PH 0. AR [place] 5 MA LL MG CY IA M TA OF F BL ET CY NT HI AN A NE 00 08 08 2 30 30 EA 23 MC Ac XI 18 -3 -[address] 89 KE ti UM 65 1- 1- 00 SI 75 MA ve 04 [address] [...] 3- 3- 00 SI 83 ON ve MA 04 20 20 DE N 81 11 [...] RG 80 9- 9- 00 SI 45 MA ve E 48 20 20 DE E [...] 6- 6- 00 SI 13 ON ve MA 62 20 20 DE DE [address] 0 PH EP 40 AR HE MA N MG CY A TA OF BL ET CY NT HI AN A SI 16 05 08 3 30 30 EA 22 MC Ac MV 71 -3 -[address] 74 KE ti 40 1- 6- 00 SI 35 MA ve TA 68 20 20 DE E TI 40 11 11 JR N 3 PH 40 AR WI MA LL MG CY IA M TA OF F BL ET CY NT HI AN A CL 00 08 08 0 90 30 EA 23 MC Ac ON 09 -0 -[address] 54 KE ti AZ 30 5- 5- 00 SI 97 MA ve EP 83 20 20 DE E AM 20 11 11 JR 1 PH 0. AR WI 5 MA LL MG CY IA M TA OF F BL ET CY NT HI AN A NE 00 05 08 2 30 30 EA 22 MC Ac XI 18 -2 -[address] 69 KE ti UM 65 5- 2- 00 SI 36 MA ve 04 [address] 03 11 11 JR 1 PH 40 AR WI MA LL MG CY IA M CA OF F PS UL CY E NT HI AN A ZE 66 06 08 3 30 30 EA 23 MC Ac TI 58 -2 -[address] 05 KE ti A 20 3- 2- 00 SI 21 MA ve 10 41 20 20 DE E [...] RG 80 1- 6- 00 SI 11 MA ve E 48 20 20 DE E [...] 7- 1- 00 SI 55 ON ve MA 04 20 20 DE N [address] HC 0 PH EP L AR HE 50 MA N 0 CY A MG OF TA BL CY ET NT HI AN A CL 00 07 07 0 90 30 EA 23 MC Ac ON 09 -0 -[address] 18 KE ti AZ 30 5- 5- 00 SI 75 MA ve EP 83 20 20 DE E AM 20 11 11 JR 1 PH 0. AR WI 5 MA LL MG CY IA M TA OF F BL ET CY NT HI AN A FU 63 05 07 2 30 30 EA 22 BE Ac RO 30 -0 -[address] 36 SS ti SE 40 3- 4- 00 SI 75 ON ve MA 62 20 20 DE DE [address] 0 PH EP 40 AR HE MA N MG CY A TA OF BL ET CY NT HI AN A SI 16 05 07 3 30 30 EA 22 MC Ac MV 71 -3 -[address] 74 KE ti 40 1- 2- 00 SI 35 MA ve TA 68 20 20 DE E TI 40 11 11 JR N 3 PH 40 AR WI MA LL MG CY IA M TA OF F BL ET CY NT HI AN A NE 00 05 06 2 30 30 EA 22 MC Ac XI 18 -2 -[address] 69 KE ti UM 65 5- 5- 00 SI 36 MA ve 04 [address] 03 11 11 JR 1 PH 40 AR WI MA LL MG CY IA M CA OF F PS UL CY E NT HI AN A ZE 66 06 06 3 30 30 EA 23 MC Ac TI 58 -2 -[address] 05 KE ti A 20 3- 3- 00 SI 21 MA ve 10 41 20 20 DE E [...] RG 80 1- 5- 00 SI 11 MA ve E 48 20 20 DE E [...] AZ 30 7- 7- 00 SI 61 MA ve EP 83 20 20 DE E AM 20 11 11 JR 1 PH 0. AR WI 5 MA LL MG CY IA M TA OF F BL ET CY NT HI AN A FU 63 05 06 2 30 30 EA 22 BE Ac RO 30 -0 -[address] 36 SS ti SE 40 3- 2- 00 SI 75 ON ve MA 62 20 20 DE DE [address] 0 PH EP 40 AR HE MA N MG CY A TA OF BL ET CY NT HI AN A SI 16 05 05 3 30 30 EA 22 MC Ac MV 71 -3 -[address] 74 KE ti 40 1- 1- 00 SI 35 MA ve TA 68 20 20 DE E TI 40 11 11 JR N 3 PH 40 AR WI MA LL MG CY IA M TA OF F BL ET CY NT HI AN A NE 00 05 05 2 30 30 EA 22 MC Ac XI 18 -2 -[address] 69 KE ti UM 65 5- 6- 00 SI 36 MA ve 04 [address] [...] 7- 7- 00 SI 55 ON ve MA 04 20 20 DE N [address] HC 0 PH EP L AR HE 50 MA N 0 CY A MG OF TA BL CY ET NT HI AN A EX 00 04 05 3 30 30 EA 22 MC Ac FO 07 -1 -[address] 06 KE ti RG 80 1- 6- 00 SI 11 MA ve E 48 20 20 DE E [...] 3- 3- 00 SI 75 ON ve MA 62 20 20 DE DE [address] 0 PH EP 40 AR HE MA N MG CY A TA OF BL ET CY NT HI AN A SI 16 02 04 2 30 30 EA 21 MC Ac MV 71 -1 -[address] 26 KE ti 40 6- 5- 00 SI 51 MA ve TA 68 20 20 DE E TI 40 11 11 JR N 3 PH 40 AR WI MA LL MG CY IA M TA OF F BL ET CY NT HI AN A NE 00 02 04 2 30 30 EA 21 MC Ac XI 18 -2 -[address] 33 KE ti UM 65 1- 5- 00 SI 04 MA ve 04 [address] 03 11 11 JR 1 PH 40 AR WI MA LL MG CY IA M CA OF F PS UL CY E NT HI AN A EX 00 04 04 3 30 30 EA 22 MC Ac FO 07 -1 -[address] 06 KE ti RG 80 1- 1- 00 SI 11 MA ve E 48 20 20 DE E 10 91 11 11 JR -1 5 PH 60 AR WI MA LL MG CY IA M TA OF F BL ET CY NT HI AN A 00 04 04 0 12 30 EA 22 MC Ac 59 -1 -[address] 05 KE ti 10 0- 0- 00 SI 59 MA ve 54 20 20 0 DE E 00 11 11 JR 1 PH AR WI MA LL CY IA M OF F CY NT HI AN A CL 00 04 04 0 90 30 EA 22 MC Ac ON 09 -0 -[address] 01 KE ti AZ 30 6- 6- 00 SI 40 MA ve EP 83 20 20 DE E AM 20 11 11 JR 1 PH 0. AR [place] 5 MA LL MG CY IA M TA OF F BL ET CY NT HI AN A HY 00 04 04 2 30 30 EA [address] 59 -0 -[address] 97 KE ti OC 10 4- 4- 00 SI 70 MA ve HL 34 20 20 DE E [...] DE TA RA 10 11 11 D MA 5 PH CA DE AR MP 5 MA BE CY LL MG K OF TA BL CY ET NT HI AN A SI 16 02 03 2 30 30 EA 21 MC Ac MV 71 -1 -[address] 26 KE ti 40 6- 2- 00 SI 51 MA ve TA 68 20 20 DE E TI 40 11 11 JR N 3 PH 40 AR WI MA LL MG CY IA M TA OF F BL ET CY NT HI AN A NE 00 02 03 2 30 30 EA 21 MC Ac XI 18 -2 -[address] 33 KE ti UM 65 1- 2- 00 SI 04 MA ve 04 [address] [...] RG 80 3- 9 00 SI 32 MA ve E 48 20 20 DE E 10 91 10 11 JR -1 5 PH 60 AR WI MA LL MG CY IA M TA OF F BL ET CY NT HI AN A AZ 00 01 03 2 20 5 EA 20 MC Ac OM 78 -1 -[address] 84 KE ti ET 11 9 SI 38 MA ve NG 83 20 20 DE E ZI 01 11 11 JR NE 0 PH AR WI 25 MA LL CY IA MG M OF F TA BL CY ET NT HI AN A CL 00 03 03 0 90 30 EA 21 MC Ac ON 09 -0 -[address] 58 KE ti AZ 30 7- 7- 00 SI 91 MA ve EP 83 20 20 DE E AM 20 11 11 JR 1 PH 0. AR WI 5 MA LL MG CY IA M TA OF F BL ET CY NT HI AN A HY 00 12 03 2 30 30 EA [address] 59 -2 -[address] 58 KE ti OC 10 9- 4- 00 SI 00 MA ve HL 34 20 20 DE E [...] UM 65 1- - 00 SI 04 MA ve 04 [address] 03 11 11 JR 1 PH 40 AR WI MA LL MG CY IA M CA OF F PS UL CY E NT HI AN A FL 00 01 02 1 7. 7 EA 20 MC Ac UC 17 -1 -[address] 81 KE ti ON 25 5- 6- 0 SI 97 MA ve AZ 41 20 20 DE E OL 14 11 11 JR E 6 PH 10 AR WI 0 MA LL MG CY IA M TA OF F BL ET CY NT HI AN A SI 16 02 02 2 30 30 EA 21 MC Ac MV 71 -1 -[address] 26 KE ti 40 6- 6- 00 SI 51 MA ve TA 68 20 20 DE E TI 40 11 11 JR N 3 PH 40 AR WI MA LL MG CY IA M TA OF F BL ET CY NT HI AN A [place] 00 01 02 1 60 4 EA [address] 16 -1 -[address] 84 KE ti AT 80 7- 5- 00 SI 39 MA ve IN 08 20 20 DE E -T 16 11 11 JR RI 0 PH AM AR WI CI MA LL NO CY IA LO M NE OF F CR CY EA NT M HI AN A 00 02 02 0 12 30 EA 21 MC Ac 59 -1 -[address] 20 KE ti 10 1- 1- 00 SI 16 MA ve 54 20 20 0 DE E 00 11 11 JR 1 PH AR WI MA LL CY IA M OF F CY NT HI AN A CL 00 12 02 2 90 30 EA 20 MC Ac ON 09 -0 -[address] 32 KE ti AZ 30 9- 7- 00 SI 83 MA ve EP 83 20 20 DE E AM 20 10 11 JR 1 PH 0. AR [place] 5 MA LL MG CY IA M TA OF F BL ET CY NT HI AN A EX 00 12 02 3 30 30 EA 20 MC Ac FO 07 -0 -[address] 24 KE ti RG 80 3- 5- 00 SI 32 MA ve E 48 20 20 DE E 10 91 10 11 JR -1 5 PH 60 AR WI MA LL MG CY IA M TA OF F BL ET CY NT HI AN A HY 00 12 01 2 30 30 EA [address] 59 -2 -[address] 58 KE ti OC 10 9- 0- 00 SI 00 MA ve HL 34 20 20 DE E [...] UM 65 8- 0- 00 SI 05 MA ve 04 [address] 03 10 11 JR 1 PH 40 AR WI MA LL MG CY IA M CA OF F PS UL CY E NT HI AN A AZ 00 01 01 2 20 5 EA 20 MC Ac OM 78 -1 -[address] 84 KE ti ET 11 7- 7- 00 SI 38 MA ve NG 83 20 20 DE E ZI 01 11 11 JR NE 0 PH AR WI 25 MA LL CY IA MG M OF F TA BL CY ET NT HI AN A [place] 00 01 01 1 60 4 EA [address] 16 -1 -[address] 84 KE ti AT 80 7- 7- 00 SI 39 MA ve IN 08 20 20 DE E -T 16 11 11 JR RI 0 PH AM AR WI CI MA LL NO CY IA LO M NE OF F CR CY EA NT M HI AN A 00 01 01 0 30 15 EA 20 MC Ac 14 -1 -[address] 81 KE ti 31 5- 5- 00 SI 98 MA ve 47 20 20 DE E 70 11 11 JR 5 PH AR WI MA LL CY IA M OF F CY NT HI AN A SI 16 12 01 1 30 30 EA 20 MC Ac MV 71 -1 -[address] 42 KE ti 40 6- 5- 00 SI 49 MA ve TA 68 20 20 DE E TI 40 10 11 JR N 3 PH 40 AR WI MA LL MG CY IA M TA OF F BL ET CY NT HI AN A FL 00 01 01 1 7. 7 EA 20 MC Ac UC 17 -1 -[address] 81 KE ti ON 25 5- 5- 0 SI 97 MA ve AZ 41 20 20 DE E OL 14 11 11 JR E 6 PH 10 AR WI 0 MA LL MG CY IA M TA OF F BL ET CY NT HI AN A MU 00 01 01 0 22 4 EA 20 MC Ac PI 09 -1 -[address] 81 KE ti RO 31 4- 4- 00 SI 11 MA ve CI 01 20 20 DE E [...] AM 60 0- 0- 00 SI 99 MA ve ET 27 20 20 DE E [...] RO 31 0- 0- 00 SI 00 MA ve CI 01 20 20 DE E N 04 11 11 JR 2% 2 PH AR WI OI MA LL NT CY IA ME M NT OF F CY NT HI AN A CL 00 12 01 2 90 30 EA 20 MC Ac ON 09 -0 -[address] 32 KE ti AZ 30 9 8 00 SI 83 MA ve EP 83 20 20 DE E AM 20 10 11 JR 1 PH 0. AR WI 5 MA LL MG CY IA M TA OF F BL ET CY NT HI AN A EX 00 12 01 3 30 30 EA 20 MC Ac FO 07 -0 -[address] 24 KE ti RG 80 3- 4- 00 SI 32 MA ve E 48 20 20 DE E 10 91 10 11 JR -1 5 PH 60 AR WI MA LL MG CY IA M TA OF F BL ET CY NT HI AN A HY 00 12 12 2 30 30 EA [address] 59 -2 -[address] 58 KE ti OC 10 SI 00 MA ve HL 34 20 20 DE E [...] UM 65 8- 0- 00 SI 05 MA ve 04 [address] 03 10 10 JR 1 PH 40 AR WI MA LL MG CY IA M CA OF F PS UL CY E NT HI AN A SI 16 12 12 1 30 30 EA 20 MC Ac MV 71 -1 -[address] 42 KE ti 40 6- 6 SI 49 MA ve TA 68 20 20 DE E TI 40 10 10 JR N 3 PH 40 AR [place] MA LL MG CY IA M TA OF F BL ET CY NT HI AN A CL 00 12 12 2 90 30 EA 20 MC Ac ON 09 -0 -[address] 32 KE ti AZ 30 9 9 SI 83 MA ve EP 83 20 20 DE E AM 20 10 10 JR 1 PH 0. AR WI 5 MA LL MG CY IA M TA OF F BL ET CY NT HI AN A EX 00 12 12 3 30 30 EA 20 MC Ac FO 07 -0 -[address] 24 KE ti RG 80 3- 3 00 SI 32 MA ve E 48 20 20 DE E 10 91 10 10 JR -1 5 PH 60 AR WI MA LL MG CY IA M TA OF F BL ET CY NT HI AN A HY 00 09 11 2 30 30 EA [address] 59 -2 -[address] 23 KE ti OC 10 1 SI 17 MA ve HL 34 20 20 DE E [...] UM 65 8- 0- 00 SI 05 MA ve 04 [address] 03 10 10 JR 1 PH 40 AR WI MA LL MG CY IA M CA OF F PS UL CY E NT HI AN A SI 16 08 11 3 30 30 EA 18 MC Ac MV 71 -0 -[address] 64 KE ti 40 9- 5- SI 89 MA ve TA 68 20 20 DE E TI 40 10 10 JR N 3 PH 40 AR [place] MA LL MG CY IA M TA OF F BL ET CY NT HI AN A CL 00 11 11 0 90 30 EA 19 MC Ac ON 09 -0 -[address] 88 KE ti AZ 30 8 8 SI 62 MA ve EP 83 20 20 DE E AM 20 10 10 JR 1 PH 0. AR WI 5 MA LL MG CY IA M TA OF F BL ET CY NT HI AN A EX 00 05 11 5 30 30 EA 17 MC Ac FO 07 -2 -[address] 70 KE ti RG 80 2- 3- 00 SI 24 MA ve E 48 20 20 DE E 10 91 10 10 JR -1 5 PH 60 AR WI MA LL MG CY IA M TA OF F BL ET CY NT HI AN A LE 00 08 10 2 30 30 EA 18 MC Ac VO 37 -1 -[address] 75 KE ti TH 81 8- 3 00 SI 58 MA ve YR 80 20 20 DE E OX 30 10 10 JR IN 1 PH E AR WI 50 MA LL CY IA MC M G OF F TA BL CY ET NT HI AN A HY 00 09 10 2 30 30 EA [address] 59 -2 -[address] 23 KE ti OC 10 1- 3- 00 SI 17 MA ve HL 34 20 20 DE E OR 70 10 10 JR OT 1 PH HI AR WI [place] MA LL ID CY IA E M 12 OF F .5 CY MG NT HI CP AN A NE 00 10 10 3 30 30 EA 19 Ac XI 18 -1 -[address] 59 KE ti UM 65 8- 8- 00 SI 05 MA ve 04 [address] 03 10 10 JR 1 PH 40 AR WI MA LL MG CY IA M CA OF F PS UL CY E NT HI AN A SI 16 08 10 3 30 30 EA 18 Ac MV 71 -0 -[address] 64 KE ti 40 9 5 00 SI 89 MA ve TA 68 20 20 DE E TI 40 10 10 JR N 3 PH 40 AR WI MA LL MG CY IA M TA OF F BL ET CY NT HI AN A 00 10 10 0 12 30 EA 19 Ac 59 -1 -[address] 53 KE ti 10 3 3 SI 11 MA ve 54 20 20 0 DE E 00 10 10 JR 1 PH AR WI MA LL CY IA M OF F CY NT HI AN A CL 00 10 10 0 90 30 EA 19 Ac ON 09 -0 -[address] 46 KE ti AZ 30 8 SI 44 MA ve EP 83 20 20 DE E AM 20 10 10 JR 1 PH 0. AR WI 5 MA LL MG CY IA M TA OF F BL ET CY NT HI AN A EX 00 05 10 5 30 30 EA 17 Ac FO 07 -2 -[address] 70 KE ti RG 80 2- 2- 00 SI 24 MA ve E 48 20 20 DE E 10 91 10 10 JR -1 5 PH 60 AR WI MA LL MG CY IA M TA OF F BL ET CY NT HI AN A GALLAGHER 53 09 09 0 20 10 EA 19 Ac LF 74 -2 -[address] 28 KE ti AM 60 4- 4 00 SI 32 MA ve ET 27 20 20 DE E [...] TH 81 8- 1- 00 SI 58 MA ve YR 80 20 20 DE E OX 30 10 10 JR IN 1 PH E AR WI 50 MA LL CY IA MC M G OF F TA BL CY ET NT HI AN A HY 00 09 09 2 30 30 EA [address] 59 -2 -[address] 23 KE ti OC 10 1- 1- 00 SI 17 MA ve HL 34 20 20 DE E OR 70 10 10 JR OT 1 PH HI AR WI [place] MA LL ID CY IA E M 12 OF F .5 CY MG NT HI CP AN A SI 16 08 09 3 30 30 EA 18 MC Ac MV 71 -0 -[address] 64 KE ti 40 9- 4- 00 SI 89 MA ve TA 68 20 20 DE E TI 40 10 10 JR N 3 PH 40 AR WI MA LL MG CY IA M TA OF F BL ET CY NT HI AN A 00 09 09 0 12 30 EA 19 MC Ac 59 -1 -[address] 10 KE ti 10 3- 3- 00 SI 99 MA ve 54 20 20 0 DE E 00 10 10 JR 1 PH AR WI MA LL CY IA M OF F CY NT HI AN A CL 00 09 09 0 90 30 EA 19 MC Ac ON 09 -0 -[address] 04 KE ti AZ 30 8- 8- 00 SI 54 MA ve EP 83 20 20 DE E AM 20 10 10 JR 1 PH 0. AR WI 5 MA LL MG CY IA M TA OF F BL ET CY NT HI AN A EX 00 05 09 5 30 30 EA 17 MC Ac FO 07 -2 -[address] 70 KE ti RG 80 2- 1- 00 SI 24 MA ve E 48 20 20 DE E [...] OC 10 7- 8- 00 SI 77 MA ve HL 34 20 20 DE E [...] TH 81 8- 8- 00 SI 58 MA ve YR 80 20 20 DE E OX 30 10 10 JR IN 1 PH E AR WI 50 MA LL CY IA MC M G OF F TA BL CY ET NT HI AN A 00 08 08 0 12 30 EA 18 MC Ac 59 -1 -[address] 71 KE ti 10 4 4 00 SI 12 MA ve 54 20 20 0 DE E 00 10 10 JR 1 PH AR WI MA LL CY IA M OF F CY NT HI AN A CL 00 08 08 0 90 30 EA 18 MC Ac ON 09 -0 -[address] 64 KE ti AZ 30 9 9 SI 45 MA ve EP 83 20 20 DE E AM 20 10 10 JR 1 PH 0. AR WI 5 MA LL MG CY IA M TA OF F BL ET CY NT HI AN A NE 00 08 08 3 60 30 EA 18 MC Ac XI 18 -0 -[address] 64 KE ti UM 65 SI 88 MA ve 04 [address] 03 10 10 JR 1 PH 40 AR [place] MA LL MG CY IA M CA OF F PS UL CY E NT HI AN A SI 16 08 08 3 30 30 EA 18 MC Ac MV 71 -0 -[address] 64 KE ti 40 9 SI 89 MA ve TA 68 20 20 DE E TI 40 10 10 JR N 3 PH 40 AR WI MA LL MG CY IA M TA OF F BL ET CY NT HI AN A EX 00 05 07 5 30 30 EA 17 MC Ac FO 07 -2 -[address] 70 KE ti RG 80 2 8 00 SI 24 MA ve E 48 20 20 DE E 10 91 10 10 JR -1 5 PH 60 AR WI MA LL MG CY IA M TA OF F BL ET CY NT HI AN A LE 00 04 07 3 30 30 EA 17 MC Ac VO 37 -0 -[address] 10 KE ti TH 81 7- 0- 00 SI 12 MA ve YR 80 20 20 DE E OX 30 10 10 JR IN 1 PH E AR WI 50 MA LL CY IA MC M G OF F TA BL CY ET NT HI AN A HY 00 05 07 3 30 30 EA [address] 59 -0 -[address] 50 KE ti OC 10 7- 0- 00 SI 77 MA ve HL 34 20 20 DE E [...] AZ 30 8- 8- 00 SI 89 MA ve EP 83 20 20 DE E [...] KE ti 90 2 3 SI 46 MA ve TA 00 20 20 DE E TI 61 10 10 JR N 7 PH 40 AR WI MA LL MG CY IA M TA OF F BL ET CY NT HI AN A NE 00 03 07 3 30 30 EA 16 Ac XI 18 -1 -[address] 82 KE ti UM 65 7- 3 SI 12 MA ve 04 [address] 03 10 10 JR 1 PH 40 AR [place] MA LL MG CY IA M CA OF F PS UL CY E NT HI AN A EX 00 05 06 5 30 30 EA 17 Ac FO 07 -2 -[address] 70 KE ti RG 80 2- 7- 00 SI 24 MA ve E 48 20 20 DE E 10 91 10 10 JR -1 5 PH 60 AR [place] MA LL MG CY IA M TA OF F BL ET CY NT HI AN A 00 06 06 0 12 30 EA 17 MC Ac 59 -1 -[address] 97 KE ti 10 4- 4- 00 SI 41 MA ve 54 20 20 0 DE E 00 10 10 JR 1 PH AR WI MA LL CY IA M OF F CY NT HI AN A HY 00 05 06 3 30 30 EA [address] 59 -0 -[address] 50 KE ti OC 10 7- 1- 00 SI 77 MA ve HL 34 20 20 DE E OR 70 10 10 JR OT 1 PH HI AR WI [place] MA LL ID CY IA E M 12 OF F .5 CY MG NT HI CP AN A LE 00 04 06 3 30 30 EA 17 Ac VO 37 -0 -[address] 10 KE ti TH 81 7 SI 12 MA ve YR 80 20 20 DE E [...] 87 KE ti AZ 30 SI 85 MA ve EP 83 20 20 DE E AM 20 10 10 JR 1 PH 0. AR [place] 5 MA LL MG CY IA M TA OF F BL ET CY NT HI AN A SI 65 02 05 3 30 30 EA 16 Ac MV 86 -1 -[address] 35 KE ti 20 SI 46 MA ve TA 05 20 20 DE E TI 33 10 10 JR N 0 PH 40 AR WI MA LL MG CY IA M TA OF F BL ET CY NT HI AN A NE 00 03 05 3 30 30 EA 16 Ac XI 18 -1 -[address] 82 KE ti UM 65 SI 12 MA ve 04 [address] 03 10 10 JR 1 PH 40 AR [place] MA LL MG CY IA M CA OF F PS UL CY E NT HI AN A EX 00 05 05 5 30 30 EA 17 Ac FO 07 -2 -[address] 70 KE ti RG 80 2- 2 SI 24 MA ve E 48 20 20 DE E 10 91 10 10 JR -1 5 PH 60 AR [place] MA LL MG CY IA M TA OF F BL ET CY NT HI AN A 00 05 05 0 12 30 EA 17 MC Ac 59 -1 -[address] 61 KE ti 10 SI 05 MA ve 54 20 20 0 DE E 00 10 10 JR 1 PH AR WI MA LL CY IA M OF F CY NT HI AN A LE 00 04 05 3 30 30 EA 17 Ac VO 37 -0 -[address] 10 KE ti TH 81 7- 7- 00 SI 12 MA ve YR 80 20 20 DE E OX 30 10 10 JR IN 1 PH E AR WI 50 MA LL CY IA MC M G OF F TA BL CY ET NT HI AN A HY 00 05 05 3 30 30 EA [address] 59 -0 -[address] 50 KE ti OC 10 7- 7- 00 SI 77 MA ve HL 34 20 20 DE E [...] AZ 30 6 6- 00 SI 98 MA ve EP 83 20 20 DE E AM 20 10 10 JR 1 PH 0. AR [place] 5 MA LL MG CY IA M TA OF F BL ET CY NT HI AN A SI 65 02 04 3 30 30 EA 16 MC Ac MV 86 -1 -[address] 35 KE ti 20 2- 3- 00 SI 46 MA ve TA 05 20 20 DE E TI 33 10 10 JR N 0 PH 40 AR WI MA LL MG CY IA M TA OF F BL ET CY NT HI AN A NE 00 03 04 3 30 30 EA 16 MC Ac XI 18 -1 -[address] 82 KE ti UM 65 7 3- 00 SI 12 MA ve 04 [address] 03 10 10 JR 1 PH 40 AR [place] MA LL MG CY IA M CA OF F PS UL CY E NT HI AN A 00 04 04 0 12 30 EA 17 MC Ac 59 -1 -[address] 20 KE ti 10 5- 5- 00 SI 16 MA ve 54 20 20 0 DE E 00 10 10 JR 1 PH AR WI MA LL CY IA M OF F CY NT HI AN A CL 00 04 04 0 60 30 EA 17 MC Ac ON 09 1 -[address] 20 KE ti AZ 30 5- 5- 00 SI 17 MA ve EP 83 20 20 DE E AM 20 10 10 JR 1 PH 0. AR WI 5 MA LL MG CY IA M TA OF F BL ET CY NT HI AN A HY 00 01 04 3 30 30 EA [address] 59 -0 -[address] 81 KE ti OC 10 4- 7- 00 SI 52 MA ve HL 34 20 20 DE E OR 70 10 10 JR OT 1 PH HI AR WI [place] MA LL ID CY IA E M 12 OF F .5 CY MG NT HI CP AN A LE 00 04 04 3 30 30 EA 17 MC Ac VO 37 -0 -[address] 10 KE ti TH 81 SI 12 MA ve YR 80 20 20 DE E OX 30 10 10 JR IN 1 PH E AR [place] 50 MA LL CY IA MC M G OF F TA BL CY ET NT HI AN A 00 03 03 0 12 30 EA 16 MC Ac 59 -1 -[address] 81 KE ti 10 SI 83 MA ve 54 20 20 0 DE E 00 10 10 JR 1 PH AR WI MA LL CY IA M OF F CY NT HI AN A CL 00 03 03 0 60 30 EA 16 MC Ac ON [address] 81 KE ti AZ 30 SI 84 MA ve EP 83 20 20 DE E AM 20 10 10 JR 1 PH 0. AR [place] 5 MA LL MG CY IA M TA OF F BL ET CY NT HI AN A NE 00 03 03 3 30 30 EA 16 MC Ac XI 18 -1 -[address] 82 KE ti UM 65 SI 12 MA ve 04 [address] 03 10 10 JR 1 PH 40 AR WI MA LL MG CY IA M CA OF F PS UL CY E NT HI AN A SI 65 02 03 3 30 30 EA 16 MC Ac MV 86 -1 -[address] 35 KE ti 20 SI 46 MA ve TA 05 20 20 DE E TI 33 10 10 JR N 0 PH 40 AR WI MA LL MG CY IA M TA OF F BL ET CY NT HI AN A LE 00 12 03 3 30 30 EA 15 MC Ac VO 37 -0 -[address] 38 KE ti TH 81 SI 79 MA ve YR 80 20 20 DE E OX 30 09 10 JR IN 1 PH E [place] 50 MA LL CY IA MC M G OF F TA BL CY ET NT HI AN A HY 00 01 03 3 30 30 EA [address] 59 -0 -[address] 81 KE ti OC 10 SI 52 MA ve HL 34 20 20 DE E [...] 017 K/mm3 ed monocyt 13:35 e count [place] % = 6.6 % 1.7-9.3 complet 017 [...] SQUARE METERS Comment: If this patient is -Luxembourger, then multiply the Comment: result by 1.210. [...] SQUARE METERS Comment: If this patient is -Luxembourger, then multiply the Comment: result by 1.210. [...] BRADFORD MD (ER) 3 15:33 3 19:06 [facility] Emergency SERGIO Daley (ER) 3 18:40 3 21:51 [facility]
--- OUTSIDE RECORDS SUMMARY | 2017-11-21 03:25 | External Medical Summary Rpt | CCD ---
Demographics Preferred Language Micronesian Marital Status Unknown Denominational Affiliation Unknown Race Unknown Ethnic Group Unknown Author Author , LUIS EDUARDO HOFF Address Unknown Phone [email or web address] Care Team Providers Care Audio Visual Tech Name Role Phone [facility] Unavailable Elizabeth NORMAN, [facility] [place] Purpose Continuity of Care Document - 02-02-2010 through 2016 Medications Na ND Rx Da Fi Fi [...] ST 73 KE ti RG 80 9- 9 00 SI 45 VA ve E 48 20 20 DE E 10 91 11 11 JR -1 5 PH 60 AR [place] MA LL MG CY IA M TA OF F BL ET CY NT HI AN A ME 00 08 10 1 30 30 EA 23 BE Ac TF 09 -2 -[address] 77 SS ti OR 31 3- 8- SI 83 ON ve VA 04 20 [...] ti 40 1- 2- 00 SI 35 VA ve TA [...] RG 80 1- 1- 00 SI 11 VA ve E 48 [...] AZ 30 6- 6- 00 SI 40 VA ve EP 83 [...] A OF CY NT HI AN A VA 00 01 03 2 20 5 EA 20 MC Ac OM 78 -1 -[address] 84 KE ti ET 11 SI 38 VA ve NG 83 20 [...] RG 80 3- 9 00 SI 32 VA ve E [...] 58 KE ti OC 10 SI 00 VA ve HL 34 20 [...] .0 ST 26 KE ti 40 6- 6 00 SI 51 VA ve TA [...] ti 10 1- 1- 00 SI 16 VA ve 54 20 20 0 DE E 00 11 11 JR 1 PH AR [place] MA LL CY IA M OF F CY NT HI AN A CL 00 12 02 2 90 30 EA 20 MC Ac ON 09 -0 -[address] 32 KE ti AZ 30 9- 7- 00 SI 83 VA ve EP [...] UL CY E NT HI AN A VA 00 01 01 2 20 5 EA [...] ST 58 KE ti OC 10 9- 9 00 SI 00 VA ve HL 34 [...] ti 40 6- 6- 00 SI 49 VA ve TA 68 [...] ti AZ 30 9 9 SI 83 VA ve EP 83 20 20 DE E AM 20 10 10 JR 1 PH 0. [place] 5 MA LL MG CY IA M TA OF F BL ET CY NT HI AN A EX 00 12 12 3 30 30 EA 20 MC Ac FO 07 -0 -[address] 24 KE ti RG 80 3 3 SI 32 VA ve E 48 20 [...] UM 65 8- 0 00 SI 05 VA ve 04 [address] 03 10 10 JR 1 PH 40 AR [place] MA LL MG CY IA M CA OF F PS UL CY E NT HI AN A SI 16 08 11 3 30 30 EA 18 MC Ac MV 71 -0 -[address] 64 KE ti 40 9 SI 89 VA ve TA 68 20 20 DE E TI 40 10 10 JR N 3 PH 40 AR [place] MA LL MG CY IA M TA OF F BL ET CY NT HI AN A CL 00 11 11 0 90 30 EA 19 MC Ac ON 09 -0 -[address] 88 KE ti AZ 30 8 8 SI 62 VA ve EP 83 20 20 DE E AM 20 10 10 JR 1 PH 0. [place] 5 MA LL MG CY IA M TA OF F BL ET CY NT HI AN A EX 00 05 11 5 30 30 EA 17 MC Ac FO 07 -2 -[address] 70 KE ti RG 80 2- 3 00 SI 24 VA ve E 48 20 20 DE E 10 91 10 10 JR -1 5 PH 60 AR [place] MA LL MG CY IA M TA OF F BL ET CY NT HI AN A LE 00 08 10 2 30 30 EA 18 Ac VO 37 -1 -[address] 75 KE ti TH 81 8 3 SI 58 VA ve YR 80 20 20 DE E OX 30 10 10 JR IN 1 PH E [place] 50 MA LL CY IA MC M G OF F TA BL CY ET NT HI AN A HY 00 09 10 2 30 [address] 59 -2 -[address] 23 KE ti OC 10 3 SI 17 VA ve HL 34 20 20 DE E OR 70 10 10 JR OT 1 PH HI AR [place] MA LL ID CY IA E M 12 OF F .5 CY MG NT HI CP AN A NE 00 10 10 3 30 30 EA 19 Ac XI 18 -1 -[address] 59 KE ti UM 65 8 SI 05 VA ve 04 [address] 03 10 10 JR 1 PH 40 [place] MA LL MG CY IA M CA OF F PS UL CY E NT HI AN A SI 16 08 10 3 30 30 EA 18 Ac MV 71 -0 -[address] 64 KE ti 40 9 SI 89 VA ve TA 68 20 20 DE E TI 40 10 10 JR N 3 PH 40 AR [place] MA LL MG CY IA M TA OF F BL ET CY NT HI AN A 00 10 10 0 12 30 EA 19 Ac 59 -1 -[address] 53 KE ti 10 SI 11 VA ve 54 20 20 0 DE E 00 10 10 JR 1 PH AR [place] MA LL CY IA M OF F CY NT HI AN A CL 00 10 10 0 90 30 EA 19 Ac ON 09 -0 -[address] 46 KE ti AZ 30 8 SI 44 VA ve EP 83 20 20 DE E AM 20 10 10 JR 1 PH 0. [place] 5 MA LL MG CY IA M TA OF F BL ET CY NT HI AN A EX 00 05 10 5 30 30 EA 17 MC Ac FO 07 -2 -[address] 70 KE ti RG 80 2 2 00 SI 24 VA ve E 48 [...] AM 60 4- 4- 00 SI 32 VA ve ET 27 20 20 DE E HO 20 10 10 JR XA 5 PH ZO AR [place] LE MA LL -T CY IA MP M OF F DS CY TA NT BL HI ET AN A LE 00 08 09 2 30 30 EA 18 MC Ac VO 37 -1 -[address] 75 KE ti TH 81 8- 1 00 SI 58 VA ve YR 80 [...] KE ti OC 10 1 SI 17 VA ve HL 34 20 20 DE E OR 70 10 10 JR OT 1 PH HI AR [place] MA LL ID CY IA E M 12 OF F .5 CY MG NT HI CP AN A SI 16 08 09 3 30 30 EA 18 Ac MV 71 -0 -[address] 64 KE ti 40 9 4- 00 SI 89 VA ve TA 68 [...] ST 71 KE ti 10 4 4 SI 12 VA ve 54 20 20 0 DE E 00 10 10 JR 1 PH AR [place] MA LL CY IA M OF F CY NT HI AN A CL 00 08 08 0 90 30 EA 18 MC Ac ON 09 -0 -[address] 64 KE ti AZ 30 9 9 SI 45 VA ve EP 83 20 [...] UM 65 9 9 00 SI 88 VA ve 04 [address] 03 10 10 JR 1 PH 40 [place] MA LL MG CY IA M CA OF F PS UL CY E NT HI AN A SI 16 08 08 3 30 30 EA 18 MC Ac MV 71 -0 -[address] 64 KE ti 40 9 9- 00 SI 89 VA ve TA [...] 04 07 3 30 30 EA 17 [facility] VO 37 -0 -[address] 10 KE ti TH 81 7- 0- 00 SI 12 VA ve YR 80 20 20 DE E OX 30 10 10 JR IN 1 PH E [place] 50 MA LL CY IA MC M G OF F TA BL CY ET NT HI AN A HY 00 05 07 3 [address] [...] 07 07 0 90 30 EA 18 [facility] ON 09 -0 -[address] 26 [...] 02 07 4 30 30 EA 16 [facility] MV 72 -1 -[address] 35 [...] 06 06 0 12 30 EA 17 Ac 59 -1 -[address] 97 [...] ST 10 KE ti TH 81 7- SI 12 VA ve YR 80 20 20 DE E OX 30 10 10 JR IN 1 PH E [place] 50 MA LL CY IA MC M G OF F TA BL CY ET NT HI AN A HY 00 05 06 3 [address] 59 -0 -[address] 50 KE ti OC 10 SI 77 VA ve HL 34 20 20 DE E OR 70 10 10 JR OT 1 PH HI [place] MA LL ID CY IA E M 12 OF F .5 CY MG NT HI CP AN A 00 06 06 0 24 3 EA 17 NV Ac 59 -0 -[address] 91 LR ti 10 SI 70 AN ve 54 20 20 DE 00 10 10 JR 1 PH AR CH MA AR CY LE S OF F CY NT HI AN A CL 00 06 06 0 90 30 EA 17 [facility] ON 09 -0 -[address] 87 KE ti AZ 30 5 5 SI 85 VA ve EP 83 20 20 DE E AM 20 10 10 JR 1 PH 0. [place] 5 MA LL MG CY IA M TA OF F BL ET CY NT HI AN A SI 65 02 05 3 30 30 EA 16 Ac MV 86 -1 -[address] 35 KE ti 20 SI 46 VA ve TA 05 20 20 DE E TI 33 10 10 JR N 0 PH 40 [place] MA LL MG CY IA M TA OF F BL ET CY NT HI AN A NE 00 03 05 3 30 30 EA 16 Ac XI 18 -1 -[address] 82 KE ti UM 65 SI 12 VA ve 04 20 20 [...] KE ti OC 10 7 SI 77 VA ve HL 34 20 [...] ti AZ 30 6 6 SI 98 VA ve EP 83 20 20 DE E AM 20 10 10 JR 1 PH 0. [place] 5 MA LL MG CY IA M TA OF F BL ET CY NT HI AN A SI 65 02 04 3 30 30 EA 16 MC Ac MV 86 -1 -[address] 35 KE ti 20 2 3- 00 SI 46 VA ve TA [...] UM 65 7 3- 00 SI 12 VA ve 04 [address] 03 10 10 JR 1 PH 40 [place] MA LL MG CY IA M CA OF F PS UL CY E NT HI AN A 00 04 04 0 12 30 EA 17 MC Ac 59 -1 -[address] 20 KE ti 10 5- 5- SI 16 VA ve 54 20 20 0 DE E 00 10 10 JR 1 PH AR [place] MA LL CY IA M OF F CY NT HI AN A CL 00 04 04 0 60 30 EA 17 MC Ac ON 09 -1 -[address] 20 KE ti AZ 30 5 5- 00 SI 17 VA ve EP 83 20 [...] OC 10 4- 7- 00 SI 52 VA ve HL 34 [...] KE ti 20 2 7 SI 46 VA ve TA 05 20 20 DE E TI 33 10 10 JR N 0 PH 40 [place] MA LL MG CY IA M TA OF F BL ET CY NT HI AN A CL 00 03 03 0 60 30 EA 16 MC Ac ON 09 1 -[address] 81 KE ti AZ 30 7 7 SI 84 VA ve EP 83 [...] ti UM 65 7 7 SI 12 VA ve 04 [address] 03 10 10 JR 1 PH 40 [place] MA LL MG CY IA M CA OF F PS UL CY E NT HI AN A 00 03 03 0 12 30 EA 16 MC Ac 59 -1 -[address] 81 KE ti 10 7 7 SI 83 VA ve 54 20 20 0 DE E 00 10 10 JR 1 PH AR [place] MA LL CY IA M OF F CY NT HI AN A LE 00 12 03 3 30 30 EA 15 MC Ac VO 37 -0 -[address] 38 KE ti TH 81 2 8 00 SI 79 VA ve YR [...] ST 81 KE ti OC 10 4- 8 00 SI 52 VA ve HL 34 20 20 DE E OR 70 10 10 JR OT 1 PH HI AR [place] MA LL ID CY IA E M 12 OF F .5 CY MG NT HI CP AN A
--- OUTSIDE RECORDS SUMMARY | 2017-11-21 03:25 | External Medical Summary Rpt | CCD ---
Demographics Preferred Language [place] Marital Status Unknown Nondenominational Affiliation Unknown Race Unknown Ethnic Group Unknown Author Author , LUIS EDUARDO HOFF Address Unknown Phone luis Care Team Providers Care Nurse Aide Evaluator Name Role Phone [facility] Unavailable Elizabeth NORMAN, [facility] [place] Purpose Continuity of Care [...] RT 40 9- 9- 00 SI 16 NH ve AN 22 20 20 0 DE [...] PE 40 4- 4- 00 SI 87 NH ve NT 66 20 20 0 DE E IN 20 13 13 JR 1 PH 30 AR WI 0 MA LL MG CY IA M CA OF F PS UL CY E NT HI AN A SI 16 11 11 0 30 30 EA 33 MC Ac MV 71 -1 -[address] 61 KE ti 40 2- 2- 00 SI 39 NH ve TA 68 20 20 0 DE E TI 40 13 13 JR N 3 PH 40 AR WI MA LL MG CY IA M TA OF F BL ET CY NT HI AN A LO 16 06 11 4 15 15 EA 31 MC Ac SA 71 -1 -[address] 99 KE ti RT 40 0- 2- 00 SI 99 NH ve AN 22 20 20 0 DE [...] RA 50 4- 1- 00 SI 09 NH ve ZO 13 20 20 0 DE E LE 63 13 [address] AR WI MA LL 40 CY IA M MG OF F CA CY PS NT UL HI E AN A ME 00 08 11 3 30 30 EA 32 MC Ac TF 09 -0 -[address] 52 KE ti OR 31 2- 9- 00 SI 59 NH ve NH 04 20 20 0 DE E N 81 13 13 JR HC 0 PH L AR WI 50 MA LL 0 CY IA MG M OF F TA BL CY ET NT HI AN A FU 63 08 11 2 30 30 EA 32 MC Ac RO 30 -2 -[address] 80 KE ti SE 40 9- 5- 00 SI 32 NH ve NH 62 20 20 0 DE E DE 51 13 13 JR 0 PH 40 AR WI MA LL MG CY IA M TA OF F BL ET CY NT HI AN A LE 00 07 11 3 30 30 EA 32 MC Ac VO 37 -2 -[address] 46 KE ti TH 81 6- 2- 00 SI 48 NH ve YR 80 20 20 0 DE [...] AZ 83 4- 2- 00 SI 89 NH ve EP 00 20 20 0 DE E AM 45 13 13 JR 1 0 PH AR WI MG MA LL CY IA TA M BL OF F ET CY NT HI AN A LO 16 06 10 4 15 15 EA 31 MC Ac SA 71 -1 -[address] 99 KE ti RT 40 0- 5- 00 SI 99 NH ve AN 22 20 20 0 DE [...] AZ 83 4- 4- 00 SI 89 NH ve EP 00 20 20 0 DE E AM 45 13 13 JR 1 0 PH AR WI MG MA LL CY IA TA M BL OF F ET CY NT HI AN A SI 16 08 10 2 30 30 EA 32 MC Ac MV 71 -0 -[address] 57 KE ti 40 7- 2- 00 SI 30 NH ve TA 68 20 20 0 DE E TI 40 13 13 JR N 3 PH 40 AR WI MA LL MG CY IA M TA OF F BL ET CY NT HI AN A OM 62 09 10 2 30 30 EA 32 MC Ac EP 17 -0 -[address] 86 KE ti RA 50 4- 9- 00 SI 09 NH ve ZO 13 20 20 0 DE E LE 63 13 [address] AR WI MA LL 40 CY IA M MG OF F CA CY PS NT UL HI E AN A ME 00 08 10 3 30 30 EA 32 MC Ac TF 09 -0 -[address] 52 KE ti OR 31 2- 7- 00 SI 59 NH ve NH 04 20 20 0 DE E N 81 13 13 JR HC 0 PH L AR WI 50 MA LL 0 CY IA MG M OF F TA BL CY ET NT HI AN A FU 63 08 10 2 30 30 EA 32 MC Ac RO 30 -2 -[address] 80 KE ti SE 40 9- 3- 00 SI 32 NH ve NH 62 20 20 0 DE E DE 51 13 13 JR 0 PH 40 AR WI MA LL MG CY IA M TA OF F BL ET CY NT HI AN A EX 00 08 10 2 30 30 EA 23 MC Ac FO 07 -1 -[address] 73 KE ti RG 80 9- 9 00 SI 45 NH ve E 48 20 20 DE E 10 91 11 11 JR -1 5 PH 60 AR WI MA LL MG CY IA M TA OF F BL ET CY NT HI AN A ME 00 08 10 1 30 30 EA 23 BE Ac TF 09 -2 -[address] 77 SS ti OR 31 3- 8- SI 83 ON ve NH 04 20 20 DE N 81 11 [...] AC 40 4- 4- 00 SI 01 NH ve ET 70 20 20 DE E [...] UM 65 6- 0- 00 SI 46 NH ve 04 [address] 03 11 11 JR 1 PH 40 AR WI MA LL MG CY IA M CA OF F PS UL CY E NT HI AN A FU 63 09 10 3 30 30 EA 24 MC Ac RO 30 -1 -[address] 04 KE ti SE 40 2- 0- 00 SI 35 NH ve NH 62 20 20 DE E DE 51 [...] ti 10 7- 7- 00 SI 81 NH ve 54 20 20 0 DE E [...] RG 80 9- 4- 00 SI 45 NH ve E 48 20 20 DE E 10 91 11 11 JR -1 5 PH 60 AR WI MA LL MG CY IA M TA OF F BL ET CY NT HI AN A SI 16 05 09 3 30 30 EA 22 MC Ac MV 71 -3 -[address] 74 KE ti 40 1- 4- 00 SI 35 NH ve TA 68 20 20 DE E [...] 2- 2- 00 SI 16 ON ve NH 62 20 20 DE DE 51 11 [...] ti 10 7- 7- 00 SI 45 NH ve 54 20 20 0 DE E 00 11 11 JR 1 PH AR WI MA LL CY IA M OF F CY NT HI AN A CL 00 09 09 0 90 30 EA 23 MC Ac ON 09 -0 -[address] 98 KE ti AZ 30 6- 6- 00 SI 47 NH ve EP 83 20 20 DE E AM 20 11 11 JR 1 PH 0. AR [place] 5 MA LL MG CY IA M TA OF F BL ET CY NT HI AN A NE 00 08 08 2 30 30 EA 23 MC Ac XI 18 -3 -[address] 89 KE ti UM 65 1- 1- 00 SI 75 NH ve 04 [address] [...] 3- 3- 00 SI 83 ON ve NH 04 20 20 DE N 81 11 [...] RG 80 9- 9- 00 SI 45 NH ve E 48 20 20 DE E [...] 6- 6- 00 SI 13 ON ve NH 62 20 20 DE DE [address] 0 PH EP 40 AR HE MA N MG CY A TA OF BL ET CY NT HI AN A SI 16 05 08 3 30 30 EA 22 MC Ac MV 71 -3 -[address] 74 KE ti 40 1- 6- 00 SI 35 NH ve TA 68 20 20 DE E TI 40 11 11 JR N 3 PH 40 AR WI MA LL MG CY IA M TA OF F BL ET CY NT HI AN A CL 00 08 08 0 90 30 EA 23 MC Ac ON 09 -0 -[address] 54 KE ti AZ 30 5- 5- 00 SI 97 NH ve EP 83 20 20 DE E AM 20 11 11 JR 1 PH 0. AR WI 5 MA LL MG CY IA M TA OF F BL ET CY NT HI AN A NE 00 05 08 2 30 30 EA 22 MC Ac XI 18 -2 -[address] 69 KE ti UM 65 5- 2- 00 SI 36 NH ve 04 [address] 03 11 11 JR 1 PH 40 AR WI MA LL MG CY IA M CA OF F PS UL CY E NT HI AN A ZE 66 06 08 3 30 30 EA 23 MC Ac TI 58 -2 -[address] 05 KE ti A 20 3- 2- 00 SI 21 NH ve 10 41 20 20 DE E [...] RG 80 1- 6- 00 SI 11 NH ve E 48 20 20 DE E 10 91 11 11 JR -1 5 PH 60 AR WI MA LL MG CY IA M TA OF F BL ET CY NT HI AN A ME 00 05 07 1 60 30 EA 22 BE Ac TF 09 -1 -[address] 56 SS ti OR 31 7- 1- 00 SI 55 ON ve NH 04 20 20 DE N 81 11 [...] AZ 30 5- 5- 00 SI 75 NH ve EP 83 20 20 DE E AM 20 11 11 JR 1 PH 0. AR WI 5 MA LL MG CY IA M TA OF F BL ET CY NT HI AN A FU 63 05 07 2 30 30 EA 22 BE Ac RO 30 -0 -[address] 36 SS ti SE 40 3- 4- 00 SI 75 ON ve NH 62 20 20 DE DE [address] 0 PH EP 40 AR HE MA N MG CY A TA OF BL ET CY NT HI AN A SI 16 05 07 3 30 30 EA 22 MC Ac MV 71 -3 -[address] 74 KE ti 40 1- 2- 00 SI 35 NH ve TA 68 20 20 DE E TI 40 11 11 JR N 3 PH 40 AR WI MA LL MG CY IA M TA OF F BL ET CY NT HI AN A NE 00 05 06 2 30 30 EA 22 MC Ac XI 18 -2 -[address] 69 KE ti UM 65 5- 5- 00 SI 36 NH ve 04 [address] 03 11 11 JR 1 PH 40 AR WI MA LL MG CY IA M CA OF F PS UL CY E NT HI AN A ZE 66 06 06 3 30 30 EA 23 MC Ac TI 58 -2 -[address] 05 KE ti A 20 3- 3- 00 SI 21 NH ve 10 41 20 20 DE E [...] RG 80 1- 5- 00 SI 11 NH ve E 48 20 20 DE E [...] AZ 30 7- 7- 00 SI 61 NH ve EP 83 20 20 DE E AM 20 11 11 JR 1 PH 0. AR WI 5 MA LL MG CY IA M TA OF F BL ET CY NT HI AN A FU 63 05 06 2 30 30 EA 22 BE Ac RO 30 -0 -[address] 36 SS ti SE 40 3- 2- 00 SI 75 ON ve NH 62 20 20 DE DE [address] 0 PH EP 40 AR HE MA N MG CY A TA OF BL ET CY NT HI AN A SI 16 05 05 3 30 30 EA 22 MC Ac MV 71 -3 -[address] 74 KE ti 40 1- 1- 00 SI 35 NH ve TA 68 20 20 DE E TI 40 11 11 JR N 3 PH 40 AR WI MA LL MG CY IA M TA OF F BL ET CY NT HI AN A NE 00 05 05 2 30 30 EA 22 MC Ac XI 18 -2 -[address] 69 KE ti UM 65 5- 6- 00 SI 36 NH ve 04 [address] [...] 7- 7- 00 SI 55 ON ve NH 04 20 20 DE N [address] HC 0 PH EP L AR HE 50 MA N 0 CY A MG OF TA BL CY ET NT HI AN A EX 00 04 05 3 30 30 EA 22 MC Ac FO 07 -1 -[address] 06 KE ti RG 80 1- 6- 00 SI 11 NH ve E 48 20 20 DE E [...] 3- 3- 00 SI 75 ON ve NH 62 20 20 DE DE 51 11 [...] UM 65 1- 5- 00 SI 04 NH ve 04 [address] 03 11 11 JR 1 PH 40 AR WI MA LL MG CY IA M CA OF F PS UL CY E NT HI AN A SI 16 02 04 2 30 30 EA 21 MC Ac MV 71 -1 -[address] 26 KE ti 40 6- 5- 00 SI 51 NH ve TA 68 20 20 DE E TI 40 11 11 JR N 3 PH 40 AR WI MA LL MG CY IA M TA OF F BL ET CY NT HI AN A EX 00 04 04 3 30 30 EA 22 MC Ac FO 07 -1 -[address] 06 KE ti RG 80 1- 1- 00 SI 11 NH ve E 48 20 20 DE E 10 91 11 11 JR -1 5 PH 60 AR WI MA LL MG CY IA M TA OF F BL ET CY NT HI AN A 00 04 04 0 12 30 EA 22 MC Ac 59 -1 -[address] 05 KE ti 10 0- 0- 00 SI 59 NH ve 54 20 20 0 DE E 00 11 11 JR 1 PH AR WI MA LL CY IA M OF F CY NT HI AN A CL 00 04 04 0 90 30 EA 22 MC Ac ON 09 -0 -[address] 01 KE ti AZ 30 6- 6- 00 SI 40 NH ve EP 83 20 20 DE E AM 20 11 11 JR 1 PH 0. AR [place] 5 MA LL MG CY IA M TA OF F BL ET CY NT HI AN A HY 00 04 04 2 30 30 EA [address] 59 -0 -[address] 97 KE ti OC 10 4- 4- 00 SI 70 NH ve HL 34 20 20 DE E [...] DE TA RA 10 11 11 D NH 5 PH CA DE AR MP 5 MA BE CY LL MG K OF TA BL CY ET NT HI AN A NE 00 02 03 2 30 30 EA 21 MC Ac XI 18 -2 -[address] 33 KE ti UM 65 1- 2- 00 SI 04 NH ve 04 [address] 03 11 11 JR 1 PH 40 AR WI MA LL MG CY IA M CA OF F PS UL CY E NT HI AN A SI 16 02 03 2 30 30 EA 21 MC Ac MV 71 -1 -[address] 26 KE ti 40 6- 2- 00 SI 51 NH ve TA 68 20 20 DE E [...] A OF CY NT HI AN A OH 00 01 03 2 20 5 EA 20 MC Ac OM 78 -1 -[address] 84 KE ti ET 11 SI 38 NH ve NG 83 20 20 DE E ZI 01 11 11 JR NE 0 PH AR WI 25 MA LL CY IA MG M OF F TA BL CY ET NT HI AN A EX 00 12 03 3 30 30 EA 20 MC Ac FO 07 -0 -[address] 24 KE ti RG 80 3- 9 00 SI 32 NH ve E 48 20 20 DE E 10 91 10 11 JR -1 5 PH 60 AR WI MA LL MG CY IA M TA OF F BL ET CY NT HI AN A CL 00 03 03 0 90 30 EA 21 MC Ac ON 09 -0 -[address] 58 KE ti AZ 30 7 7 SI 91 NH ve EP 83 20 20 DE E AM 20 11 11 JR 1 PH 0. AR [place] 5 MA LL MG CY IA M TA OF F BL ET CY NT HI AN A HY 00 12 03 2 30 30 EA [address] 59 -2 -[address] 58 KE ti OC 10 SI 00 NH ve HL 34 20 20 DE E [...] 33 KE ti UM 65 SI 04 NH ve 04 [address] 03 11 11 JR 1 PH 40 AR WI MA LL MG CY IA M CA OF F PS UL CY E NT HI AN A FL 00 01 02 1 7. 7 EA 20 MC Ac UC 17 -1 -[address] 81 KE ti ON 25 5- 6- 0 SI 97 NH ve AZ 41 20 20 DE E OL 14 11 11 JR E 6 PH 10 AR WI 0 MA LL MG CY IA M TA OF F BL ET CY NT HI AN A SI 16 02 02 2 30 30 EA 21 MC Ac MV 71 -1 -[address] 26 KE ti 40 6- 6 00 SI 51 NH ve TA 68 20 20 DE E TI 40 11 11 JR N 3 PH 40 AR WI MA LL MG CY IA M TA OF F BL ET CY NT HI AN A [place] 00 01 02 1 60 4 EA [address] 16 -1 -[address] 84 KE ti AT 80 7- 5- 00 SI 39 NH ve IN 08 20 20 DE E -T 16 11 11 JR RI 0 PH AM AR WI CI MA LL NO CY IA LO M NE OF F CR CY EA NT M HI AN A 00 02 02 0 12 30 EA 21 MC Ac 59 -1 -[address] 20 KE ti 10 1- 1- 00 SI 16 NH ve 54 20 20 0 DE E 00 11 11 JR 1 PH AR WI MA LL CY IA M OF F CY NT HI AN A CL 00 12 02 2 90 30 EA 20 MC Ac ON 09 -0 -[address] 32 KE ti AZ 30 9- 7- 00 SI 83 NH ve EP 83 20 20 DE E AM 20 10 11 JR 1 PH 0. AR WI 5 MA LL MG CY IA M TA OF F BL ET CY NT HI AN A EX 00 12 02 3 30 30 EA 20 MC Ac FO 07 -0 -[address] 24 KE ti RG 80 3- 5- 00 SI 32 NH ve E 48 20 20 DE E 10 91 10 11 JR -1 5 PH 60 AR WI MA LL MG CY IA M TA OF F BL ET CY NT HI AN A HY 00 12 01 2 30 30 EA [address] 59 -2 -[address] 58 KE ti OC 10 9- 0- 00 SI 00 NH ve HL 34 20 20 DE E [...] UM 65 8- 0- 00 SI 05 NH ve 04 [address] 03 10 11 JR 1 PH 40 AR WI MA LL MG CY IA M CA OF F PS UL CY E NT HI AN A OH 00 01 01 2 20 5 EA 20 MC Ac OM 78 -1 -[address] 84 KE ti ET 11 7- 7- 00 SI 38 NH ve NG 83 20 20 DE E ZI 01 11 11 JR NE 0 PH AR WI 25 MA LL CY IA MG M OF F TA BL CY ET NT HI AN A [place] 00 01 01 1 60 4 EA [address] 16 -1 -[address] 84 KE ti AT 80 7- 7- 00 SI 39 NH ve IN 08 20 20 DE E -T 16 11 11 JR RI 0 PH AM AR WI CI MA LL NO CY IA LO M NE OF F CR CY EA NT M HI AN A 00 01 01 0 30 15 EA 20 MC Ac 14 -1 -[address] 81 KE ti 31 5- 5- 00 SI 98 NH ve 47 20 20 DE E 70 11 11 JR 5 PH AR WI MA LL CY IA M OF F CY NT HI AN A SI 16 12 01 1 30 30 EA 20 MC Ac MV 71 -1 -[address] 42 KE ti 40 6- 5- 00 SI 49 NH ve TA 68 20 20 DE E TI 40 10 11 JR N 3 PH 40 AR WI MA LL MG CY IA M TA OF F BL ET CY NT HI AN A FL 00 01 01 1 7. 7 EA 20 MC Ac UC 17 -1 -[address] 81 KE ti ON 25 5- 5- 0 SI 97 NH ve AZ 41 20 20 DE E OL 14 11 11 JR E 6 PH 10 AR WI 0 MA LL MG CY IA M TA OF F BL ET CY NT HI AN A MU 00 01 01 0 22 4 EA 20 MC Ac PI 09 -1 -[address] 81 KE ti RO 31 4- 4- 00 SI 11 NH ve CI 01 20 20 DE E [...] AM 60 0- 0- 00 SI 99 NH ve ET 27 20 20 DE E [...] RO 31 0- 0- 00 SI 00 NH ve CI 01 20 20 DE E N 04 11 11 JR 2% 2 PH AR WI OI MA LL NT CY IA ME M NT OF F CY NT HI AN A CL 00 12 01 2 90 30 EA 20 MC Ac ON 09 -0 -[address] 32 KE ti AZ 30 9- 8- 00 SI 83 NH ve EP 83 20 20 DE E AM 20 10 11 JR 1 PH 0. AR WI 5 MA LL MG CY IA M TA OF F BL ET CY NT HI AN A EX 00 12 01 3 30 30 EA 20 MC Ac FO 07 -0 -[address] 24 KE ti RG 80 3- 4- 00 SI 32 NH ve E 48 20 20 DE E 10 91 10 11 JR -1 5 PH 60 AR WI MA LL MG CY IA M TA OF F BL ET CY NT HI AN A HY 00 12 12 2 30 30 EA [address] 59 -2 -[address] 58 KE ti OC 10 9- 9 00 SI 00 NH ve HL 34 20 20 DE E [...] UM 65 8- 0- 00 SI 05 NH ve 04 [address] 03 10 10 JR 1 PH 40 AR WI MA LL MG CY IA M CA OF F PS UL CY E NT HI AN A SI 16 12 12 1 30 30 EA 20 MC Ac MV 71 -1 -[address] 42 KE ti 40 6- 6- 00 SI 49 NH ve TA 68 20 20 DE E TI 40 10 10 JR N 3 PH 40 AR WI MA LL MG CY IA M TA OF F BL ET CY NT HI AN A CL 00 12 12 2 90 30 EA 20 MC Ac ON 09 -0 -[address] 32 KE ti AZ 30 9 9 SI 83 NH ve EP 83 20 20 DE E AM 20 10 10 JR 1 PH 0. AR WI 5 MA LL MG CY IA M TA OF F BL ET CY NT HI AN A EX 00 12 12 3 30 30 EA 20 MC Ac FO 07 -0 -[address] 24 KE ti RG 80 3 3 SI 32 NH ve E 48 20 20 DE E 10 91 10 10 JR -1 5 PH 60 AR WI MA LL MG CY IA M TA OF F BL ET CY NT HI AN A HY 00 09 11 2 30 30 EA [address] 59 -2 -[address] 23 KE ti OC 10 SI 17 NH ve HL 34 20 20 DE E [...] UM 65 8- 0 00 SI 05 NH ve 04 [address] 03 10 10 JR 1 PH 40 AR WI MA LL MG CY IA M CA OF F PS UL CY E NT HI AN A SI 16 08 11 3 30 30 EA 18 MC Ac MV 71 -0 -[address] 64 KE ti 40 9 SI 89 NH ve TA 68 20 20 DE E TI 40 10 10 JR N 3 PH 40 AR WI MA LL MG CY IA M TA OF F BL ET CY NT HI AN A CL 00 11 11 0 90 30 EA 19 MC Ac ON 09 -0 -[address] 88 KE ti AZ 30 8 8 SI 62 NH ve EP 83 20 20 DE E AM 20 10 10 JR 1 PH 0. AR WI 5 MA LL MG CY IA M TA OF F BL ET CY NT HI AN A EX 00 05 11 5 30 30 EA 17 MC Ac FO 07 -2 -[address] 70 KE ti RG 80 2- 3 00 SI 24 NH ve E 48 20 20 DE E 10 91 10 10 JR -1 5 PH 60 AR WI MA LL MG CY IA M TA OF F BL ET CY NT HI AN A LE 00 08 10 2 30 30 EA 18 Ac VO 37 -1 -[address] 75 KE ti TH 81 8 3 SI 58 NH ve YR 80 20 20 DE E OX 30 10 10 JR IN 1 PH E AR WI 50 MA LL CY IA MC M G OF F TA BL CY ET NT HI AN A HY 00 09 10 2 30 [address] 59 -2 -[address] 23 KE ti OC 10 3 SI 17 NH ve HL 34 20 20 DE E OR 70 10 10 JR OT 1 PH HI AR WI [place] MA LL ID CY IA E M 12 OF F .5 CY MG NT HI CP AN A NE 00 10 10 3 30 30 EA 19 Ac XI 18 -1 -[address] 59 KE ti UM 65 8 SI 05 NH ve 04 [address] 03 10 10 JR 1 PH 40 AR WI MA LL MG CY IA M CA OF F PS UL CY E NT HI AN A SI 16 08 10 3 30 30 EA 18 Ac MV 71 -0 -[address] 64 KE ti 40 9 SI 89 NH ve TA 68 20 20 DE E TI 40 10 10 JR N 3 PH 40 AR [place] MA LL MG CY IA M TA OF F BL ET CY NT HI AN A 00 10 10 0 12 30 EA 19 Ac 59 -1 -[address] 53 KE ti 10 SI 11 NH ve 54 20 20 0 DE E 00 10 10 JR 1 PH AR WI MA LL CY IA M OF F CY NT HI AN A CL 00 10 10 0 90 30 EA 19 Ac ON 09 -0 -[address] 46 KE ti AZ 30 8 SI 44 NH ve EP 83 20 20 DE E AM 20 10 10 JR 1 PH 0. AR [place] 5 MA LL MG CY IA M TA OF F BL ET CY NT HI AN A EX 00 05 10 5 30 30 EA 17 MC Ac FO 07 -2 -[address] 70 KE ti RG 80 2 2 00 SI 24 NH ve E 48 20 20 DE E 10 91 10 10 JR -1 5 PH 60 AR WI MA LL MG CY IA M TA OF F BL ET CY NT HI AN A GALLAGHER 53 09 09 0 20 10 EA 19 MC Ac LF 74 -2 -[address] 28 KE ti AM 60 4- 4- 00 SI 32 NH ve ET 27 20 20 DE E [...] TH 81 8- 1 00 SI 58 NH ve YR 80 20 20 DE E OX 30 10 10 JR IN 1 PH E AR WI 50 MA LL CY IA MC M G OF F TA BL CY ET NT HI AN A HY 00 09 09 2 30 30 EA [address] 59 -2 -[address] 23 KE ti OC 10 1 SI 17 NH ve HL 34 20 20 DE E OR 70 10 10 JR OT 1 PH HI AR WI [place] MA LL ID CY IA E M 12 OF F .5 CY MG NT HI CP AN A SI 16 08 09 3 30 30 EA 18 Ac MV 71 -0 -[address] 64 KE ti 40 9 4- 00 SI 89 NH ve TA 68 20 20 DE E TI 40 10 10 JR N 3 PH 40 AR WI MA LL MG CY IA M TA OF F BL ET CY NT HI AN A 00 09 09 0 12 30 EA 19 MC Ac 59 -1 -[address] 10 KE ti 10 3- 3- 00 SI 99 NH ve 54 20 20 0 DE E 00 10 10 JR 1 PH AR WI MA LL CY IA M OF F CY NT HI AN A CL 00 09 09 0 90 30 EA 19 Ac ON 09 -0 -[address] 04 KE ti AZ 30 8- 8- 00 SI 54 NH ve EP 83 20 20 DE E AM 20 10 10 JR 1 PH 0. AR WI 5 MA LL MG CY IA M TA OF F BL ET CY NT HI AN A EX 00 05 09 5 30 30 EA 17 MC Ac FO 07 -2 -[address] 70 KE ti RG 80 2- 1- 00 SI 24 NH ve E 48 20 20 DE E [...] OC 10 7- 8- 00 SI 77 NH ve HL 34 20 20 DE E [...] TH 81 8- 8- 00 SI 58 NH ve YR 80 20 20 DE E OX 30 10 10 JR IN 1 PH E AR WI 50 MA LL CY IA MC M G OF F TA BL CY ET NT HI AN A 00 08 08 0 12 30 EA 18 MC Ac 59 -1 -[address] 71 KE ti 10 4 4 SI 12 NH ve 54 20 20 0 DE E 00 10 10 JR 1 PH AR WI MA LL CY IA M OF F CY NT HI AN A CL 00 08 08 0 90 30 EA 18 MC Ac ON 09 -0 -[address] 64 KE ti AZ 30 9 9 SI 45 NH ve EP 83 20 20 DE E AM 20 10 10 JR 1 PH 0. AR WI 5 MA LL MG CY IA M TA OF F BL ET CY NT HI AN A NE 00 08 08 3 60 30 EA 18 MC Ac XI 18 -0 -[address] 64 KE ti UM 65 9 9 00 SI 88 NH ve 04 [address] 03 10 10 JR 1 PH 40 AR WI MA LL MG CY IA M CA OF F PS UL CY E NT HI AN A SI 16 08 08 3 30 30 EA 18 MC Ac MV 71 -0 -[address] 64 KE ti 40 9 9- 00 SI 89 NH ve TA 68 20 20 DE E TI 40 10 10 JR N 3 PH 40 AR WI MA LL MG CY IA M TA OF F BL ET CY NT HI AN A EX 00 05 07 5 30 30 EA 17 MC Ac FO 07 -2 -[address] 70 KE ti RG 80 2- 8- 00 SI 24 NH ve E 48 20 20 DE E 10 91 10 10 JR -1 5 PH 60 AR [place] MA LL MG CY IA M TA OF F BL ET CY NT HI AN A LE 00 04 07 3 30 30 EA 17 [facility] VO 37 -0 -[address] 10 KE ti TH 81 7- 0- 00 SI 12 NH ve YR 80 20 20 DE E OX 30 10 10 JR IN 1 PH E AR WI 50 MA LL CY IA MC M G OF F TA BL CY ET NT HI AN A HY 00 05 07 3 30 [address] 59 -0 -[address] 50 KE ti OC 10 7- 0- 00 SI 77 NH ve HL 34 20 20 DE E OR 70 10 10 JR OT 1 PH HI AR [place] MA LL ID CY IA E M 12 OF F .5 CY MG NT HI CP AN A CL 00 07 07 0 90 30 EA 18 [facility] ON 09 -0 -[address] 26 KE ti AZ 30 8- 8- 00 SI 89 NH ve EP 83 20 20 DE E [...] 02 07 4 30 30 EA 16 [facility] MV 72 -1 -[address] 35 KE ti 90 2- 3- 00 SI 46 NH ve TA 00 20 20 DE E TI 61 10 10 JR N 7 PH 40 AR [place] MA LL MG CY IA M TA OF F BL ET CY NT HI AN A NE 00 03 07 3 30 30 EA 16 Ac XI 18 -1 -[address] 82 KE ti UM 65 7- 3- 00 SI 12 NH ve 04 [address] 03 10 10 JR 1 PH 40 AR WI MA LL MG CY IA M CA OF F PS UL CY E NT HI AN A EX 00 05 06 5 30 30 EA 17 Ac FO 07 -2 -[address] 70 KE ti RG 80 2- 7- 00 SI 24 NH ve E 48 20 20 DE E 10 91 10 10 JR -1 5 PH 60 AR [place] MA LL MG CY IA M TA OF F BL ET CY NT HI AN A 00 06 06 0 12 30 EA 17 Ac 59 -1 -[address] 97 KE ti 10 4- 4- 00 SI 41 NH ve 54 20 20 0 DE E 00 10 10 JR 1 PH AR WI MA LL CY IA M OF F CY NT HI AN A LE 00 04 06 3 30 30 EA 17 Ac VO 37 -0 -[address] 10 KE ti TH 81 7- SI 12 NH ve YR 80 20 20 DE E OX 30 10 10 JR IN 1 PH E AR WI 50 MA LL CY IA MC M G OF F TA BL CY ET NT HI AN A HY 00 05 06 3 30 [address] 59 -0 -[address] 50 KE ti OC 10 SI 77 NH ve HL 34 20 20 DE E OR 70 10 10 JR OT 1 PH HI AR WI [place] MA LL ID CY IA E M 12 OF F .5 CY MG NT HI CP AN A 00 06 06 0 24 3 EA 17 OH Ac 59 -0 -[address] 91 LR ti 10 SI 70 AN ve 54 20 20 DE 00 10 10 JR 1 PH AR CH MA AR CY LE S OF F CY NT HI AN A CL 00 06 06 0 90 30 EA 17 [facility] ON 09 -0 -[address] 87 KE ti AZ 30 5 5 SI 85 NH ve EP 83 20 20 DE E AM 20 10 10 JR 1 PH 0. AR [place] 5 MA LL MG CY IA M TA OF F BL ET CY NT HI AN A SI 65 02 05 3 30 30 EA 16 Ac MV 86 -1 -[address] 35 KE ti 20 SI 46 NH ve TA 05 20 20 DE E TI 33 10 10 JR N 0 PH 40 AR WI MA LL MG CY IA M TA OF F BL ET CY NT HI AN A NE 00 03 05 3 30 30 EA 16 Ac XI 18 -1 -[address] 82 KE ti UM 65 SI 12 NH ve 04 [address] 03 10 10 JR 1 PH 40 AR WI MA LL MG CY IA M CA OF F PS UL CY E NT HI AN A EX 00 05 05 5 30 30 EA 17 Ac FO 07 -2 -[address] 70 KE ti RG 80 2- 2- 00 SI 24 NH ve E 48 20 20 DE E 10 91 10 10 JR -1 5 PH 60 AR [place] MA LL MG CY IA M TA OF F BL ET CY NT HI AN A 00 05 05 0 12 30 EA 17 MC Ac 59 -1 -[address] 61 KE ti 10 5- 5- 00 SI 05 NH ve 54 20 20 0 DE E 00 10 10 JR 1 PH AR WI MA LL CY IA M OF F CY NT HI AN A LE 00 04 05 3 30 30 EA 17 MC Ac VO 37 -0 -[address] 10 KE ti TH 81 7 7 SI 12 NH ve YR 80 20 20 DE E OX 30 10 10 JR IN 1 PH E AR [place] 50 MA LL CY IA MC M G OF F TA BL CY ET NT HI AN A HY 00 05 05 3 30 30 EA [address] 59 -0 -[address] 50 KE ti OC 10 7 SI 77 NH ve HL 34 20 20 DE E OR 70 10 10 JR OT 1 PH HI AR [place] MA LL ID CY IA E M 12 OF F .5 CY MG NT HI CP AN A CL 00 05 05 0 90 30 EA 17 MC Ac ON 09 -0 -[address] 48 KE ti AZ 30 6 6 SI 98 NH ve EP 83 20 20 DE E AM 20 10 10 JR 1 PH 0. [place] 5 MA LL MG CY IA M TA OF F BL ET CY NT HI AN A SI 65 02 04 3 30 30 EA 16 MC Ac MV 86 -1 -[address] 35 KE ti 20 2 3- 00 SI 46 NH ve TA 05 20 20 DE E TI 33 10 10 JR N 0 PH 40 AR WI MA LL MG CY IA M TA OF F BL ET CY NT HI AN A NE 00 03 04 3 30 30 EA 16 MC Ac XI 18 -1 -[address] 82 KE ti UM 65 7 3- 00 SI 12 NH ve 04 [address] 03 10 10 JR 1 PH 40 AR [place] MA LL MG CY IA M CA OF F PS UL CY E NT HI AN A 00 04 04 0 12 30 EA 17 MC Ac 59 -1 -[address] 20 KE ti 10 5- 5- SI 16 NH ve 54 20 20 0 DE E 00 10 10 JR 1 PH AR WI MA LL CY IA M OF F CY NT HI AN A CL 00 04 04 0 60 30 EA 17 MC Ac ON 09 -1 -[address] 20 KE ti AZ 30 5 5- 00 SI 17 NH ve EP 83 20 20 DE E AM 20 10 10 JR 1 PH 0. [place] 5 MA LL MG CY IA M TA OF F BL ET CY NT HI AN A HY 00 01 04 3 30 30 EA [address] 59 -0 -[address] 81 KE ti OC 10 4- 7- 00 SI 52 NH ve HL 34 20 20 DE E OR 70 10 10 JR OT 1 PH HI AR [place] MA LL ID CY IA E M 12 OF F .5 CY MG NT HI CP AN A LE 00 04 04 3 30 30 EA 17 MC Ac VO 37 -0 -[address] 10 KE ti TH 81 7 7 SI 12 NH ve YR 80 20 20 DE E OX 30 10 10 JR IN 1 PH E [place] 50 MA LL CY IA MC M G OF F TA BL CY ET NT HI AN A SI 65 02 03 3 30 30 EA 16 MC Ac MV 86 -1 -[address] 35 KE ti 20 2 7 SI 46 NH ve TA 05 20 20 DE E TI 33 10 10 JR N 0 PH 40 AR [place] MA LL MG CY IA M TA OF F BL ET CY NT HI AN A CL 00 03 03 0 60 30 EA 16 MC Ac ON 09 1 -[address] 81 KE ti AZ 30 7 7 SI 84 NH ve EP 83 20 20 DE E AM 20 10 10 JR 1 PH 0. [place] 5 MA LL MG CY IA M TA OF F BL ET CY NT HI AN A NE 00 03 03 3 30 30 EA 16 MC Ac XI 18 -1 -[address] 82 KE ti UM 65 7 7 SI 12 NH ve 04 [address] 03 10 10 JR 1 PH 40 AR [place] MA LL MG CY IA M CA OF F PS UL CY E NT HI AN A 00 03 03 0 12 30 EA 16 MC Ac 59 -1 -[address] 81 KE ti 10 7 7 SI 83 NH ve 54 20 20 0 DE E 00 10 10 JR 1 PH AR WI MA LL CY IA M OF F CY NT HI AN A LE 00 12 03 3 30 30 EA 15 MC Ac VO 37 -0 -[address] 38 KE ti TH 81 2 8 00 SI 79 NH ve YR 80 20 20 DE E OX 30 09 10 JR IN 1 PH E [place] 50 MA LL CY IA MC M G OF F TA BL CY ET NT HI AN A HY 00 01 03 3 30 30 EA [address] 59 -0 -[address] 81 KE ti OC 10 4- 8 00 SI 52 NH ve HL 34 20 20 DE E OR 70 10 10 JR OT 1 PH HI AR [place] MA LL ID CY IA E M 12 OF F .5 CY MG NT HI CP AN A
--- OUTSIDE RECORDS SUMMARY | 2017-11-21 03:27 | External Medical Summary Rpt | CCD ---
Author Author , LUIS EDUARDO HOFF Address Unknown Phone [email or web address] Immunization Name Date Rout CVX Reac Dose Comm Prov Is Faci e tion ent ider Refu lity Give sed n Infl 10-0 Intr 0.5 Hist GSHA No GSHA uenz 2-20 amus mL oric NE NE a 17 cula al Quad r Info rmat W/Pr ion es - Sour ce Unsp ecif ied
--- OUTSIDE RECORDS SUMMARY | 2017-11-21 03:27 | External Medical Summary Rpt | CCD ---
Author Author , LUIS EDUARDO HOFF Address Unknown Phone [email or web address] Immunization Name Date Rout CVX Reac Dose Comm Prov Is Faci e tion ent ider Refu lity Give sed n Infl 10-0 Intr 0.5 Hist GSHA No GSHA uenz 2-20 amus mL oric NE NE a 17 cula al Quad r Info rmat W/Pr ion es - Sour ce Unsp ecif ied
--- OUTSIDE RECORDS SUMMARY | 2017-11-21 03:28 | External Medical Summary Rpt ---
[...] ic variabl es, specifi c drug chemist steroids ry, andspec imen charact eristic s can affect test outcome . Technic alconsu ltation is availab le if a test result is inconsi stent with anexpec vandana outcome . (email- lindsay andrews [email or web address] or call [email or web address] [phone] )Drug brands, if listed herein, are tradema rks of their respect efe rs.Perf ormed at: [facility] - [facility] [id number] [facility], [place], [place] [id number] 53Lab Directo r: Tha Landeros MD, Phone: [phone] Oxazepa Negativ Cutoff= No No No Oct [...] interpr eted in the context [facility]. Patient metabol ic variabl es, specifi c drug chemist steroids ry, andspec imen charact eristic s can affect test outcome . Technic avilau ltation is availab le if a test result is inconsi stent with anexpec vandana outcome . (email- lindsay andrews [email or web address] or call [employer] [phone] )Drug brands, if listed herein, are tradema rks of their respect efe russ.Perf ormed at: - [facility] [id number] [place], [place] [id number] 53Lab Directo r: Tha Landeros MD, Phone: [phone] Oxazepa Negativ Cutoff= No No No Jun [...]
--- OUTSIDE RECORDS SUMMARY | 2017-11-21 03:28 | External Medical Summary Rpt ---
[...] ic variabl es, specifi c drug chemist instrumentation ry, andspec imen charact eristic s can affect test outcome . Technic alconsu ltation is availab le if a test result is inconsi stent with anexpec vandana outcome . (email- [email or web address] or call [employer] [phone] )Drug brands, if listed herein, are tradema rks of their respect efe rs.Perf ormed at: UI - [facility] [id number] [facility], [place], [place] [address]Lab Directo r: Tha Landeros MD, Phone: [phone] Oxazepa Negativ Cutoff= No No No Oct [...] interpr eted in the context [facility]. Patient metabol ic variabl es, specifi c drug chemist instrumentation ry, andspec imen charact eristic s can affect test outcome . Technic avilau ltation is availab le if a test result is inconsi stent with anexpec vandana outcome . (email- lindsay andrews [email or web address] or call [employer] [phone] )Drug brands, if listed herein, are tradema rks of their respect efe russ.Perf ormed at: - [facility] [id number] [place], [place] [id number] 53Lab Directo r: Tha Landeros MD, Phone: [phone] Oxazepa Negativ Cutoff= No No No Jun [...]
--- NOTE | 2017-11-21 06:59 | RADIOLOGY REPORT PS360 ---
CHEST(2 VIEWS-NOT PORTABLE) HISTORY: Chest pain and pressure CHEST PRESSURE ORDERING PHYSICIAN: Abhishek Valdez MD PATIENT AGE: 62 years COMPARISON: 08/07/2017 FINDINGS: The cardiomediastinal silhouette and pulmonary vascularity are within normal limits. The lungs are clear without infiltrates, suspicious nodules, or pleural effusions. No acute bony abnormalities. IMPRESSION: Negative chest, no acute finding
--- NOTE | 2017-11-21 07:37 | HISTORY AND PHYSICAL REPORT ---
Demographics: Admit date: 11/21/17 Chief complaint: Chest pain/epigastric pain PRIMARY DIAGNOSIS: CHEST PAIN Allergies: Coded Allergies: Penicillins (08/07/17) Sulfa (Sulfonamide Antibiotics) (08/07/17) cephalexin (08/07/17) latex (08/07/17) History of present illness: History of present illness: 62-year-old white male with long history of coronary disease, status post placement in this year, who over the past 3-4 weeks has had symptoms of accelerated angina with increasing problems with chest pain with movement about his house, accompanied with some nausea and vomiting. Came to the emergency department early this morning. I may have mild chest pain, mild dehydration. In the hospital for further violation. This morning the patient notes that his chest pain has improved but he continues to have some pain when he moves about the room. His GI pain has improved with Protonix. Past medical history: Family HX Diabetes Yes CAD Yes Hypertension Yes Hyperlipidemia Yes Cancer Yes TB No Immunization HX DT/Tetanus 1-4 Years Ago Flu 2015-FSN Pneumonia Refuses TB Test in last year No General CAD? No Angina: Yes SC: No Hypertension? Yes Hyperlipidemia? Yes CHF? No DVT? No PE? No COPD? Yes Asthma? No Anemia? No GERD? Yes Gastric ulcers? Yes GI Bleed? No Hernia? No Thyroid Problems? Yes Hypothyroidism? Yes CVA? Yes Seizures? No Diabetes? Yes Insulin Dependent: No Insulin Pump: No Home FSBS? Yes Renal Insuffiency? No UTI? Yes Stones? No BPH? No GB Disease: Yes Nephritic Syndrome? No Asplenia? No Hepatitis? No Sickle Cell Disease? No Arthritis? Yes Migraines? No Cataracts? No Glaucoma? No MRSA? Yes HIV? No TB? No Anxiety? No Depression? 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 Yes Additional hx: AAA, THORACIC AORTIC ANUERYSM, BLIND RIGHT EYE, BRAIN TUMOR Past Surgical HX Previous Surgery?Y R ARM TENDON PARTIAL BRAIN TUMOR REMOV 5 RECONSTRUCTIVE FACIAL APPY CYST REMOVED FROM NECK X2 HEART CATH-CLEAR Appendix BIOPSY ON BOTH EYES CANCER REMOVAL FROM LT EYE SURGERY Current home meds: Active Scripts Polyethylene Glycol (Miralax Powder 255 Gm Bottle) 17 GM PO DAILY #1 POW Prov: 02/13/17 ONDANSETRON HCL (Zofran 4MG Tab) 4 MG PO Q6HP PRN NAUSEA AND VOMITING #30 TAB Prov: 04/09/17 Pantoprazole Sodium (Protonix) 40 MG PO DAILY #30 PKT Prov: 04/09/17 Reported Medications Methocarbamol (Methocarbamol 750MG) 750 MG PO BIDP PRN MUSCLES NITROGLYCERIN (Nitrostat) 0.4 MG SL [id number] PRN CHEST PAIN Metformin HCl (Metformin) 500 MG PO DAILY LOSARTAN/HYDROCHLOROTHIAZIDE (Losartan-Hctz 50-12.5 MG Tab) 1 TAB PO DAILY LEVOTHYROXINE SOD (Levothyroxine 0.075MG Tablet) 75 MCG PO DAILY Furosemide (Furosemide 40MG) 40 MG PO DAILY HYDROCODONE/ACETAMINOPHEN (Lortab 10-325 (generic) Tablet) 1 TAB PO QID ALFUZOSIN HCL (Alfuzosin HCl ER) 10 MG PO DAILY #30 Sildenafil Citrate (Sildenafil) 20 MG PO PRN PRN PROSTATE ASPIRIN (Aspirin) 81 MG PO DAILY Omeprazole (Omeprazole 40MG) 40 MG PO DAILY Simvastatin (Simvastatin 40MG Tab) 40 MG PO QHS Social Hx: Smoking HX Tobacco No Type N/A Alcohol Alcohol: No Hx of Drug Use Drug Use? No Patien't marital status is Patient's support system is excellent Review of systems: Constitutional fever, malaise, weakness. Respiratory No: no symptoms reported. Cardiovascular see HPI Gastrointestinal/Abdominal see HPI Genitourinary No: no symptoms reported. Musculoskeletal No: no symptoms reported. Neurological No: see HPI. Exam: Lab data for last 24 hours: Laboratory Tests 11/21/17 0631: POC Glucose 107 11/21/17 0455: Troponin I < 0.02 11/21/17 0200: Amylase 34, Lipase 71 L 11/21/17 0200: Sodium 140, Potassium 3.3 L, Chloride 103, Carbon Dioxide 25, BUN 16, Creatinine 1.4 H, Estimated Creat Clear 78, Estimated GFR (MDRD) 51, Glucose 131 H, Calcium 8.7, Total Bilirubin 0.7, AST 22, ALT 35, Alkaline Phosphatase 117 H, Creatine Kinase 122, CK-MB (CK-2) Rel Index 0.4, CK and CKMB Interp < 0.5, Troponin I < 0.02, Total Protein 7.2, Albumin 3.9, Globulin 3.3 H, Albumin /Globulin Ratio 1.2, WBC 7.9, RBC 4.44 L, Hgb 12.7 L, Hct 38.3 L, MCV 86.3, RDW 13.4, Plt Count 190, MPV 7.2 L, Gran % 74.5, Gran # 5.9, Lymphocytes % 19.8 , Monocytes % 4.2, Eosinophils % 1.2, Basophils % 0.3, Lymphocytes # 1.6, Monocytes # 0.3, Eosinophils # 0.1, Basophils # 0.0, PUBS MCHC 33.2, MCH 28.7 Admission vital signs: 1ST Vital Signs Result Date Time Pulse Ox 98 11/21 151 B/P 154/80 11/21 151 Temp 98.9 11/21 151 Pulse 110 11/21 151 Resp 16 11/21 151 O2 Delivery ROOM AIR 11/21 0408 Additional information: Patient has an old right-sided facial droop, otherwise neurologically intact. Heart rate regular, some reproducible chest pain along the epigastric area, heart rate irregular otherwise, no murmurs, lungs clear, abdomen soft and nontender. Patient eating breakfast well. Plan: Problem List 1. Chest pain Status Acute 2. Vomiting Plan: Vomiting is improved. Rule out for SC. Cardiology consult tomorrow for repeat catheterization given his anginal pattern at 0736
[2017-11-21] MEDS ORDERED: EFFIENT10 M2 PO (09:25)
--- NOTE | 2017-11-21 09:26 | CONSULT NOTE ---
Standard Demographics Patient Demo Date of Consultation: 11/21/17 Referring Provider: Cheko Ragsdale MD Reason for Consultation: Chest pain PRIMARY DIAGNOSIS: CHEST PAIN Problem list Problem list: 1. Coronary disease A. History of abnormal stress test with inferior ischemia, 04/2017 B. Cardiac catheterization with subsequent drug-eluting stent placement to the RIGHT coronary artery, 04/2017. Aspirin and Effient therapy. C. Prabhu Myoview, 07/2017, No ischemia with inferior scar. EF 55%. 2. Previous brain surgery for benign brain mass, 1995, with resultant RIGHT facial droop A. Follows with neurology at . Recent MRI of the brain 07/2017, results pending 3. History of both ascending aortic aneurysm (4 cm) and abdominal aortic aneurysm (3.9 X 3.4 cm), with last CTA of the chest and abdomen and December of this year. A. CTA of chest, 08/08/2017, AAA at 4 cm. 4. Diabetes mellitus 5. Hyperlipidemia 6. Remote tobacco use discontinued approximately 2002 History of present illness: History of present illness: 62-year-old white male with long history of coronary disease, status post placement in this year, who over the past 3-4 weeks has had symptoms of accelerated angina with increasing problems with chest pain with movement about his house, accompanied with some nausea and vomiting. Came to the emergency department early this morning. I may have mild chest pain, mild dehydration. In the hospital for further violation. This morning the patient notes that his chest pain has improved but he continues to have some pain when he moves about the room. His GI pain has improved with Protonix. The above per Dr. Ragsdale Symptoms began after struggling with large dog about 3 weeks ago and have increased since then. Chest pains complicated by GI symptoms for which he has scheduled evaluation next month. Thus far troponins normal. Cardiology consulted for further evaluation. Past Medical History: General: Hypertension Yes CVA Yes Seizures No TB No COPD Yes Asthma No Diabetes Yes Insulin Dependent No Insulin Pump No Angina Yes [place] No Hyperlipidemia Yes Urinary Yes Cancer Yes Rheumatic H.D. 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 Additional hx AAA, THORACIC AORTIC ANUERYSM, BLIND RIGHT EYE, BRAIN TUMOR Past Surgical HX: Previous Surgery?Y R ARM TENDON PARTIAL BRAIN TUMOR REMOV 5 RECONSTRUCTIVE FACIAL APPY CYST REMOVED FROM NECK X2 HEART CATH-CLEAR Appendix BIOPSY ON BOTH EYES CANCER REMOVAL FROM LT EYE SURGERY Allergies Coded Allergies: Penicillins (08/07/17) Sulfa (Sulfonamide Antibiotics) (08/07/17) cephalexin (08/07/17) latex (08/07/17) Home medications: Active Scripts Polyethylene Glycol (Miralax Powder 255 Gm Bottle) 17 GM PO DAILY #1 POW Prov: 02/13/17 ONDANSETRON HCL (Zofran 4MG Tab) 4 MG PO Q6HP PRN NAUSEA AND VOMITING #30 TAB Prov: 04/09/17 Pantoprazole Sodium (Protonix) 40 MG PO DAILY #30 PKT Prov: 04/09/17 Reported Medications Methocarbamol (Methocarbamol 750MG) 750 MG PO BIDP PRN MUSCLES NITROGLYCERIN (Nitrostat) 0.4 MG SL [id number] PRN CHEST PAIN Metformin HCl (Metformin) 500 MG PO DAILY LOSARTAN/HYDROCHLOROTHIAZIDE (Losartan-Hctz 50-12.5 MG Tab) 1 TAB PO DAILY LEVOTHYROXINE SOD (Levothyroxine 0.075MG Tablet) 75 MCG PO DAILY Furosemide (Furosemide 40MG) 40 MG PO DAILY HYDROCODONE/ACETAMINOPHEN (Lortab 10-325 (generic) Tablet) 1 TAB PO QID ALFUZOSIN HCL (Alfuzosin HCl ER) 10 MG PO DAILY #30 Sildenafil Citrate (Sildenafil) 20 MG PO PRN PRN PROSTATE ASPIRIN (Aspirin) 81 MG PO DAILY Omeprazole (Omeprazole 40MG) 40 MG PO DAILY Simvastatin (Simvastatin 40MG Tab) 40 MG PO QHS Current Medications: Current Medications Fentanyl Citrate 25 MCG Q3MINP PRN IV (UNV) Fentanyl Citrate 50 MCG Q3MINP PRN IV (UNV) Flumazenil 0.2 MG PRN PRN IV (UNV) Heparin Sodium (Beef Lung) 5,000 UNITS PRN PRN IV (UNV) Heparin Sodium/Sodium Chloride 3,000 UNITS PRN PRN IV (UNV) Midazolam HCl 1 MG Q3MINP PRN IV (UNV) Midazolam HCl 1 MG Q3MINP PRN IV (UNV) Naloxone HCl 0.4 MG [id number] PRN IV (UNV) Nitroglycerin 800 MCG PRN PRN IV (UNV) Verapamil HCl 5 MG PRN PRN IV (UNV) Lidocaine HCl 20 ML ONCE ONE IJ (UNV) Pravastatin Sodium 40 MG QHS PO (UNV) Multi-Ingredient GI Drug 60 ML ONCE ONE PO (UNV) Aspirin 81 MG DAILY PO (UNV) Hydrocodone Bitart/Acetaminophen 1 TAB QID PO (UNV) Levothyroxine Sodium 0.075 MG DAILY PO (UNV) Methocarbamol 750 MG BID PO (UNV) Pantoprazole Sodium 40 MG DAILY PO (UNV) Nitroglycerin 1 IN Q8 TP (UNV) Diagnostic Test (Pha) 1 EACH W/MEALS&HS FS (UNV) Insulin Human [rDNA origin] SEE ADMIN CRITERIA FOR MEDIUM INTENSITY W/MEALS&HS SC (UNV) Pantoprazole Sodium 40 MG ONCE ONE PO (UNV) Pantoprazole Sodium 0 .STK-MED ONE .ROUTE (DC) Influenza Virus Vaccine Quadrival 0.5 ML PRN PRN IM (UNV) Morphine Sulfate 2 MG Q2HP PRN IV (DC) Nicotine 21 MG DAILYP PRN TD (UNV) Ondansetron HCl 4 MG Q6HP PRN IV (UNV) Sodium Chloride 1,000 ML .[id number] IV (UNV) Sodium Chloride 10 ML PRN PRN IV (UNV) Aspirin 243 MG ONCE ONE PO (DC) Aspirin 0 .STK-MED ONE .ROUTE (DC) Ondansetron HCl 0 .STK-MED ONE .ROUTE (DC) Sodium Chloride 1,000 ML .STK-MED ONE IV (DC) Ondansetron HCl 4 MG ONCE ONE IV (DC) Sodium Chloride 1,000 ML .Q1H1M IV (DC) Sodium Chloride 10 ML PRN PRN IV Immunization HX DT/Tetanus 1-4 Years Flu 2015-17FSN Pneumonia Refuses TB Test in last year No Family history Family HX Family Hx Insignificant No Diabetes Yes CAD Yes Hypertension Yes Hyperlipidemia Yes Cancer Yes TB No Social Hx: Smoking HX Tobacco No Type N/A Alcohol Alcohol: No Hx of Drug Use Drug Use? No Review of systems: Constitutional No: no symptoms reported. Respiratory SOB with excertion. Cardiovascular chest pain Gastrointestinal/Abdominal see HPI, abdominal pain Genitourinary No: no symptoms reported. Musculoskeletal No: no symptoms reported. Neurological No: no symptoms reported. Exam: Admission Vital Signs: 1ST Vital Signs Result Date Time Pulse Ox 98 11/21 151 B/P 154/80 11/21 151 Temp 98.9 11/21 015 Pulse 110 11/21 015 Resp 16 11/21 151 O2 Delivery ROOM AIR 11/21 0408 Last Vital Signs: Vital Signs Result Date Time Pulse Ox 95 11/21 836 B/P 111/64 11/21 836 O2 Delivery ROOM AIR 11/21 836 Pulse 83 11/21 836 Resp 18 11/21 836 Temp 98.4 11/21 0744 Exam General appearance: alert, awake, no acute distress Neck: no carotid bruit, no JVD Cardiovascular: regular rate & rhythm, no murmur Respiratory: clear to auscultation ABD: soft, no tenderness Extremities: moves all, no peripheral edema Neuro: alert, intact, oriented Laboratory data: Laboratory Tests 11/21/17 0631: POC Glucose 107 11/21/17 0455: Troponin I < 0.02 11/21/17 0200: Amylase 34, Lipase 71 L 11/21/17 0200: Sodium 140, Potassium 3.3 L, Chloride 103, Carbon Dioxide 25, BUN 16, Creatinine 1.4 H, Estimated Creat Clear 78, Estimated GFR (MDRD) 51, Glucose 131 H, Calcium 8.7, Total Bilirubin 0.7, AST 22, ALT 35, Alkaline Phosphatase 117 H, Creatine Kinase 122, CK-MB (CK-2) Rel Index 0.4, CK and CKMB Interp < 0.5, Troponin I < 0.02, Total Protein 7.2, Albumin 3.9, Globulin 3.3 H, Albumin /Globulin Ratio 1.2, WBC 7.9, RBC 4.44 L, Hgb 12.7 L, Hct 38.3 L, MCV 86.3, RDW 13.4, Plt Count 190, MPV 7.2 L, Gran % 74.5, Gran # 5.9, Lymphocytes % 19.8 , Monocytes % 4.2, Eosinophils % 1.2, Basophils % 0.3, Lymphocytes # 1.6, Monocytes # 0.3, Eosinophils # 0.1, Basophils # 0.0, PUBS MCHC 33.2, MCH 28.7 Plan Assessment: 1. Chest pain, concern for UAP in this patient with recurrent CAD and stenting. Pt recently had [employer] myoview for similar symptoms, therefore will recommend cardiac cath in AM for further evaluation. NTG paste in place. Continue ASA, effient and statin. 2. GERD, add GI cocktail now. Already on PPI. 3. Hypokalemia, on replacement 4. AAA, stable by CTA in 07/2017 5. DM Plan: 1. Discussed with Dr. Cueva. See above. at [id number]
--- NOTE | 2017-11-21 13:01 | PHARMACY CLINIC NOTE ---
Patient Demographics Patient Demographics Admission date: 11/21/17 Date: 11/21/17 Time: 1301 Allergies Coded Allergies: Penicillins (08/07/17) Sulfa (Sulfonamide Antibiotics) (08/07/17) cephalexin (08/07/17) latex (08/07/17) HEIGHT- FT: 5 IN: 8.00 K.044 VTE General Information Labs: Laboratory Tests 11/21 0200 Hematology Hgb (14.1 - 18.0 g/dL) 12.7 L Hct (42.0 - 52.0 %) 38.3 L Plt Count (142 - 424 K/mm3) 190 Disclaimer The following section includes nursing documentation that has been pulled in for pharmacy review. Patient's VTE score: 3 Patient's VTE Risk: LOW RISK Clinical trial participant? No VTE prophylaxis NQF [id number] VTE prophylaxis ordered? Yes Type of prophylaxis/treatment: SONG at 1301
[2017-11-22] VITALS (7 sets, daily range): BP systolic 104–131; BP diastolic 68–77
--- NOTE | 2017-11-22 10:53 | RADIOLOGY REPORT PS360 ---
CARDIAC CATHETERIZATION DATE OF CATHETERIZATION:11/22/2017 8:59 AM PROCEDURES: 1. Left heart catheterization 2. Left ventriculogram 3. Selective coronary angiogram INDICATION FOR TEST: 1. Known coronary artery disease 2. Unstable angina Informed consent was obtained prior to the procedure. COMPLICATIONS: None ESTIMATED BLOOD LOSS: Less than 10 ml. TECHNIQUE: One percent lidocaine used to anesthetize the right anterior aspect of the wrist. The right radial artery was accessed via the Seldinger technique. A 6 [place] sheath was placed in the right radial artery. 2.5 mg of verapamil, 800 mcg of nitroglycerin and 5000 U Heparin were given through the arterial sheath. The trap catheter was also used to perform left heart catheterization and left ventriculography. At the end of the procedure the patient was transferred to the post-op holding area in stable condition for arterial sheath removal. ANGIOGRAPHIC RESULTS: 1. The left main artery normal 2. The left anterior descending artery has proximal mild luminal irregularities and mid vessel luminal irregularities no stenosis greater than 10% 3. The circumflex artery is a nondominant vessel giving rise to a large first obtuse marginal artery has mild less than 10% luminal irregularities. The true circumflex artery running in the AV groove has a concentric 50% stenosis supplying a small moderate amount of myocardium 4. The right coronary artery is a dominant vessel and has proximal 10% stenoses within mid vessel stent which is widely patent free of in-stent restenosis. Distally there is a concentric 30-40% stenosis proximal to the bifurcation of the large PDA and PLV be. Both large branches have mild 10% stenoses 5. The PHAM ventriculogram reveals normal 65% 6. The left ventricular end-diastolic pressure mildly elevated 20 mmHg IMPRESSION: 1. Widely patent right coronary artery stent 2. Clinically insignificant disease in the true circumflex artery 3. Normal ejection fraction 4. Mildly elevated LVEDP PLAN: 1. If patient's chest pain is cardiac in nature and likely stems from endothelial dysfunction and possibly due to the mildly elevated LVEDP 2. Low-dose diuretics may benefit patient by decreasing LVEDP 3. Risk factor modification 4. Avoidance of tobacco products 5. I would also recommend evaluation noncardiac chest pain
--- NOTE | 2017-11-22 11:25 | ACUTE CARE PROGRESS NOTE (QUA) ---
Progress Notes Subjective Date 11/22/17 Time 1122 Patient/family reports: feeling better, no complaints Nursing reports: alert, no complaints Objective Findings Laboratory Tests 11/22/17 0619: POC Glucose 95 11/21/17 2100: POC Glucose 113 H 11/21/17 1648: POC Glucose 105 11/21/17 1250: Troponin I < 0.02 11/21/17 1149: POC Glucose 113 H Vital Signs Date Time Temp Pulse Resp B/P Pulse O2 O2 Flow FiO2 Ox Delivery Rate 11/22 927 18 11/22 09 18 11/22 0825 97.5 59 18 112/68 91 ROOM AIR 11/22 0337 97.9 62 20 104/68 90 ROOM AIR 11/21 2344 98.1 60 20 105/57 95 ROOM AIR 11/21 2111 18 11/21 1950 97.5 63 20 101/67 93 ROOM AIR 11/21 1935 97.5 63 18 101/67 93 11/21 1611 20 11/21 1548 97.8 61 20 93/58 95 ROOM AIR Current Medications Iopamidol 60 ML ONCE ONE IV (DC) Fentanyl Citrate 25 MCG Q3MINP PRN IV Fentanyl Citrate 50 MCG Q3MINP PRN IV Flumazenil 0.2 MG PRN PRN IV Heparin Sodium (Beef Lung) 5,000 UNITS PRN PRN IV Heparin Sodium/Sodium Chloride 3,000 UNITS PRN PRN IV Midazolam HCl 1 MG Q3MINP PRN IV Midazolam HCl 1 MG Q3MINP PRN IV Naloxone HCl 0.4 MG [id number] PRN IV Nitroglycerin 800 MCG PRN PRN IV Verapamil HCl 5 MG PRN PRN IV Diphenhydramine HCl 50 MG ONCE ONE IV (DC) Sodium Chloride 1,000 ML .Q25H IV Heparin Sodium/Sodium Chloride 1,500 ML .STK-MED ONE IV (DC) Nitroglycerin 0 .STK-MED ONE IV (DC) Diphenhydramine HCl 0 .STK-MED ONE .ROUTE (DC) Lidocaine HCl 0 .STK-MED ONE .ROUTE (DC) Sodium Chloride 1,000 ML .STK-MED ONE IV (DC) Verapamil HCl 0 .STK-MED ONE .ROUTE (DC) Heparin Sodium (Beef Lung) 0 .STK-MED ONE .ROUTE (DC) Lidocaine HCl 20 ML ONCE ONE IJ (DC) Nitroglycerin 0 .STK-MED ONE .ROUTE (DC) Sodium Chloride 1,000 ML .STK-MED ONE IV (DC) Hydrocodone Bitart/Acetaminophen 0 .STK-MED ONE PO (DC) Nitroglycerin 0 .STK-MED ONE .ROUTE (DC) Pravastatin Sodium 40 MG QHS PO Hydrocodone Bitart/Acetaminophen 0 .STK-MED ONE PO (DC) Sodium Chloride 1,000 ML .STK-MED ONE IV (DC) Prasugrel 10 MG DAILY PO Potassium Chloride 40 MEQ DAILY PO Aspirin 81 MG DAILY PO Hydrocodone Bitart/Acetaminophen 1 TAB QID PO Levothyroxine Sodium 0.075 MG DAILY PO Methocarbamol 750 MG BID PO Pantoprazole Sodium 40 MG DAILY PO Nitroglycerin 1 IN Q8 TP Diagnostic Test (Pha) 1 EACH W/MEALS&HS FS Insulin Human [rDNA origin] SEE ADMIN CRITERIA FOR MEDIUM INTENSITY W/MEALS&HS SC Influenza Virus Vaccine Quadrival 0.5 ML PRN PRN IM Nicotine 21 MG DAILYP PRN TD Ondansetron HCl 4 MG Q6HP PRN IV Sodium Chloride 1,000 ML .[id number] IV Sodium Chloride 10 ML PRN PRN IV Sodium Chloride 10 ML PRN PRN IV (DC) Last VS-Temp:97.5 B/P:112/68 Pulse:59 Resp:18 SaO2:91 ROOM AIR Last weight lbs:229 oz:6 K.044 Method:Bed Scales Exam General appearance: normal appearance, alert, active, awake, no acute distress Eyes: normal exam ENT: normal exam Neck: normal inspection, no carotid bruit, full range of motion Cardiovascular: normal exam, regular rate & rhythm Respiratory: normal exam, aerating well, clear to auscultation, good air movement, no respiratory distress ABD: normal exam, normal bowel sounds, soft Genitourinary: normal voiding & quantity Extremities: normal exam, moves all Musculoskeletal: normal exam Skin: normal exam, intact, warm Neuro: normal exam, alert, intact, oriented Reviewed: allergies, medications, vital signs, lab results, radiology report, consult note Assessment/Plan Problem List 1. Chest pain Status: Acute 2. Vomiting Qualifiers: Vomiting type: unspecified Vomiting Intractability: intractable Nausea presence : with nausea Qualified Code: R11.2 - Nausea with vomiting, unspecified Patient condition Stable Plan: initiate discharge plan This inpt stay is expected to cross 2 MNs from start of care No Comments: Dr. Reese rounded earlier. at [phone]
--- NOTE | 2017-11-22 11:28 | DISCHARGE SUMMARY STANDARD ---
Demographics Admit date: 11/21/17 Discharge date: 11/22/17 History of present illness History of present illness 62-year-old white male with long history of coronary disease, status post placement in this year, who over the past 3-4 weeks has had symptoms of accelerated angina with increasing problems with chest pain with movement about his house, accompanied with some nausea and vomiting. Came to the emergency department early this morning. I may have mild chest pain, mild dehydration. In the hospital for further violation. This morning the patient notes that his chest pain has improved but he continues to have some pain when he moves about the room. His GI pain has improved with Protonix. The above per Dr. Ragsdale Symptoms began after struggling with large dog about 3 weeks ago and have increased since then. Chest pains complicated by GI symptoms for which he has scheduled evaluation next month. Thus far troponins normal. Cardiology consulted for further evaluation. Hospital Course Hospital Course: cath: IMPRESSION: 1. Widely patent right coronary artery stent 2. Clinically insignificant disease in the true circumflex artery 3. Normal ejection fraction 4. Mildly elevated LVEDP PLAN: 1. If patient's chest pain is cardiac in nature and likely stems from endothelial dysfunction and possibly due to the mildly elevated LVEDP 2. Low-dose diuretics may benefit patient by decreasing LVEDP 3. Risk factor modification 4. Avoidance of tobacco products 5. I would also recommend evaluation noncardiac chest pain We'll discharge home today. Patient to be followed up in the office this week. Discharge diagnoses Problem List 1. Chest pain Status Acute 2. Vomiting Medications Medications: Discharge meds are as noted. Follow up Follow up in office in: 5 DAYS with: EDDIE RUELAS
== END 2017-11-22 13:50 | disposition home or self-care (01) ==
LOC: ER 01:49 → ICU 03:02 → 2ND 03:35
PROVIDERS: Emergency Medicine; Internal Medicine
PROC: B2111ZZ Fluoroscopy of Multiple Coronary Arteries using Low Osmolar Contrast (ICD-10-PCS; 2017-11-22)
PROC: B2151ZZ Fluoroscopy of Left Heart using Low Osmolar Contrast (ICD-10-PCS; 2017-11-22)
PROC: 4A023N7 Measurement of Cardiac Sampling and Pressure, Left Heart, Percutaneous Approach (ICD-10-PCS; principal; 2017-11-22 08:30)
DX: I25.110 Atherosclerotic heart disease of native coronary artery with unstable angina pectoris (principal); Z87.891 Personal history of nicotine dependence; E11.9 Type 2 diabetes mellitus without complications; Z95.5 Presence of coronary angioplasty implant and graft
CPT/HCPCS: C1725; C1769; G0378; J1644; J2405; Q9967